=== PATIENT | female | born 1965 | race Caucasian/White ===

== ENCOUNTER 2016-08-08 11:16 | Inpatient (IN) | payer MEDICARE, MEDICAID ==
[~2016-08-08] VITALS: Ht 152.4 cm; Wt 150.5 kg
[~2016-08-08 11:16] MED LIST: ACETAZOLAMIDE250 MG PO; ALBUTEROL2.5 MG/3 M UPD; AMBIEN10 MG PO; BAYER CHEWABLE81 MG PO; BROVANA15 MCG/2 M INH; DIABETA2.5 MG PO; EMBEDA; FLUTICASONE PRO16 GM NASAL; FUROSEMIDE40 MG PO; GLIPIZIDE10 MG PO; GLUCOPHAGE500 MG PO; GLUCOTROL 5 MG T5 MG PO; GLYBURIDE2.5 MG PO; HYDROCODON-ACE1 EAC9 PO; HYDROCODONE-APA1 TAB PO; IPRAT-ALBUT 0.5-3 ML UPD; K-DUR20 MEQ PO; LANOXIN125 MCG PO; LANTUS INSULIN10 ML SC; LANTUS SOL100 UNIT/1 SC; LASIX20 MG PO; LASIX40 MG PO; LASIX80 MG PO; LEVAQUIN500 MG PO; LEXAPRO20 MG PO; LODINE400 MG PO; METOLAZONE2.5 MG; METOLAZONE2.5 MG PO; MUCINEX D1 TAB.SR . PO; OMEPRAZOLE20 M1; OMEPRAZOLE20 M1 PO; OMNICEF300 MG PO; PEPCID20 MG PO; POTASSIUM CHLORIDE E; PREDNISONE20 MG PO; PULMICORT0.5 MG/21 NEB; SINGULAIR10 MG PO; STERAPRED 5MG 125 MG PO; STERAPRED DS 1210 MG PO; SYNTHROID25 MCG; SYNTHROID25 MCG PO; TOPROL XL25 MG PO; VIBRAMYCIN 100100 MG PO; XANAX0.5 MG PO; ZANAFLEX4 MG PO; ZESTRIL10 MG PO; [UNRECOGNIZED DRUG - OTHER]
[2016-08-08 11:55] LABS: BASOPHILS 0.2 % (0.0-2.0); HEMATOCRIT 44.5 % (36.0-48.0); IMMATURE GRANULOCYTES 0.9 % (0-5); LYMPHOCYTES 16.9 % (15-50); MCH 27.4 pg (26.0-34.0); MCHC 29.2 g/dL (31.0-37.0); MCV 93.9 fL (80.0-100.0); MEAN PLATELET VOLUME 8.9 fL (7.4-10.4); MONOCYTES 12.6 % (2-11); NEUTROPHILS 63.4 % (40-80); RBC 4.74 10x6/uL (4.00-5.40); RDW 15.6 % (11.5-14.5); WBC 10.5 10x3/uL (4.8-10.8)
[2016-08-08 11:56] LABS: PLATELET COUNT 218 10x3/uL (130-400)
[2016-08-08 12:18] LABS: ALKALINE PHOSPHATASE 74 U/L (46-116); ALT (SGPT) 24 U/L (10-68); CALC OSMOLALITY 283 mosm/kg (275-300); CALCIUM 8.5 mg/dL (8.5-10.1); CHLORIDE - SERUM 98 mmol/L (98-107); CREATININE - SERUM 0.7 mg/dL (0.6-1.3); GLUCOSE 131 mg/dL (74-106); POTASSIUM - SERUM 4.3 mmol/L (3.5-5.1); PROTEIN - SERUM 6.9 g/dL (6.4-8.2); SODIUM 142 mmol/L (136-145); UREA NITROGEN 11 mg/dL (7-18); eGFR NON AFRICAN AMERICAN > 90 mL/min (90-120)
[2016-08-08 12:21] LABS: CARBON DIOXIDE 42.2 mmol/L (21.0-32.0)
--- NOTE | 2016-08-08 15:52 | NUR ---
PT ARRIVED TO ROOM. WILL BEGIN ADMISSION ASSESSMENT AND WORKUP.
[2016-08-08 18:08] VITALS: BP 142/72; BMI 67.3
[2016-08-08 19:00] VITALS: BP 107/53
[2016-08-08 19:26] LABS: CKMB 0.8 U/L (0.0-3.6); CREATINE KINASE 27 UL (21-215); PRO BNP 758 pg/mL (0-125)
--- NOTE | 2016-08-08 19:32 | NUR ---
PT LYING IN BED ON LEFT SIDE, EYES CLOSED, PT CURRENTLY ON BIPAP. CONTINUE TO MONITOR CLOSELY.
[2016-08-08 19:38] LABS: TROPONIN-I < 0.017 ng/mL (0.000-0.060)
--- NOTE | 2016-08-08 23:49 | NUR ---
HESS PLACED WITHOUT DIFFICULTY, 800CC OF CLEAR, PALE YELLOW URINE IMMEDIATELY RETURNED. PT TOLERATED PROCEDURE WELL. CONTINUE TO MONITOR CLOSELY.
[2016-08-09] VITALS: BP 112/54
--- NOTE | 2016-08-09 00:58 | NUR ---
PT AWAKE, ALERT, ORIENTED, OFF BIPAP TEMPORARILY TO EAT JULIUS CRACKERS AND DRINK SOME MILK. PT DENIES ANY NEEDS. HESS DRAINING WELL, UP TO 1400CC AT THIS TIME. CONTINUE TO MONITOR CLOSELY. BED LOW, CALL LIGHT IN REACH, SIDE RAILS X 2, HOB 30 DEGREES.
[2016-08-09 01:59] LABS: CKMB 0.8 U/L (0.0-3.6); CREATINE KINASE 21 UL (21-215)
[2016-08-09 02:08] LABS: TROPONIN-I < 0.017 ng/mL (0.000-0.060)
--- NOTE | 2016-08-09 02:24 | NUR ---
PT LYING IN BED, AWAKE, ALERT, ORIENTED, DENIES ANY NEEDS. CONTINUE TO MONITOR CLOSELY.
[2016-08-09 04:00] VITALS: BP 114/59
[2016-08-09 06:49] LABS: BASOPHILS 0.1 % (0.0-2.0); EOSINOPHILS 0 % (0-7); HEMATOCRIT 42.6 % (36.0-48.0); HEMOGLOBIN 12.5 g/dL (12-16); IMMATURE GRANULOCYTES 0.9 % (0-5); LYMPHOCYTES 8.2 % (15-50); MCH 27.2 pg (26.0-34.0); MCHC 29.3 g/dL (31.0-37.0); MCV 92.6 fL (80.0-100.0); MEAN PLATELET VOLUME 9.4 fL (7.4-10.4); MONOCYTES 4.8 % (2-11); PLATELET COUNT 249 10x3/uL (130-400); RDW 15.3 % (11.5-14.5); WBC 10.1 10x3/uL (4.8-10.8)
[2016-08-09 07:22] LABS: ALBUMIN 2.8 g/dL (3.4-5.0); ALKALINE PHOSPHATASE 68 U/L (46-116); ALT (SGPT) 27 U/L (10-68); CALCIUM 8.8 mg/dL (8.5-10.1); CHLORIDE - SERUM 96 mmol/L (98-107); CKMB 0.4 U/L (0.0-3.6); CREATINE KINASE 16 UL (21-215); CREATININE - SERUM 0.8 mg/dL (0.6-1.3); PHOSPHOROUS 3.7 mg/dL (2.5-4.9); POTASSIUM - SERUM 4.4 mmol/L (3.5-5.1); PROTEIN - SERUM 6.7 g/dL (6.4-8.2); SODIUM 140 mmol/L (136-145); TROPONIN-I < 0.017 ng/mL (0.000-0.060); eGFR NON AFRICAN AMERICAN 80 mL/min (90-120)
[2016-08-09 07:23] LABS: CALC OSMOLALITY 285 mosm/kg (275-300); GLUCOSE 211 mg/dL (74-106); UREA NITROGEN 15 mg/dL (7-18)
[2016-08-09 08:02] VITALS: BP 106/50
[2016-08-09 11:42] VITALS: BP 123/57
--- NOTE | 2016-08-09 13:19 | NUR ---
Patient Name: DOUGLAS HILLS Admission Status: ER Accout number: [id number] Admission Date: 08-08-2016 : 1965 Admission Diagnosis: Attending: BEKAH Current LOS: 1 Anticipated DC Date: 08-10-2016 Planned Disposition: Inpatient Rehab Primary Insurance: [employer] PLANNED EXTERNAL PROVIDER: [facility] INPATIENT REHAB Discharge Planning Comments: * Is the patient Alert and Oriented? Yes 0 * How many steps to enter\exit or inside your home? 3 0 * PCP DR. LESLIE 0 * Pharmacy [facility] [address] 0 * Preadmission Environment Home with Family 0 * ADLs Independent 0 * Equipment BIPAP Nebulizer Oxygen home and portable Rolling Walker 0 * Other Equipment [facility] - MEDICAL EQUIPMENT PROVIDER 0 * List name and contact numbers for known caregivers / representatives who currently or will assist patient after discharge: ALMA, DAUGHTER, 0 * Community resources currently utilized None 0 * Please name any agencies selected above. NONE 0 * Additional services required to return to the preadmission environment? Yes * Can the patient safely return to the preadmission environment? Yes 0 * Has this patient been hospitalized within the prior 30 days at any hospital? No 0 CM RECEIVED INPATIENT PRESCREEN ORDER; CM MET WITH PT IN ROOM TO DISCUSS DISCHARGE PLANNING AND NEEDS. PT REPORTS LIVING AT HOME INDEPENDENTLY WITH ADULT DAUGHTER. PT HAS BIPAP, NEBULIZER, OXYGEN AND ROLLING WALKER PROVIDED BY [facility]. PT HAS NO OUTSIDE SERVICES ASSISTING IN THE HOME. CM DISCUSSED AVAILABILITY OF HOME HEALTH, REHAB SERVICES AND MEDICAL EQUIPMENT. PT WOULD BE INTERESTED IN INPATIENT REHAB BUT DOES NOT THINK HER INSURANCE WILL APPROVE IT. CM EXPLAINED PROCESS OF REFERRAL, SCREENING AND INSURANCE AUTHORIZATION. PT REPORTS IF DENIED INPATIENT REHAB, SHE WILL NOT GO TO A [facility] FACILITY; PT WOULD GO HOME WITH HOME HEALTH PROVIDED BY [facility], CHOICE LETTER SIGNED. PT REPORTS HER DAUGHTER WILL PICK HER UP FOR DISCHARGE HOME. IMPORTANT MESSAGE FROM MEDICARE PROVIDED AND EXPLAINED. CM WAITING PT/OT EVALUATION COMPLETIONS WELL [facility] INPATIENT REHAB PRESCREENING AND INSURANCE AUTHORIZATION PROCESSES. Casting Finisher: Davin Osman
[2016-08-09 13:56] VITALS: Ht 152.4 cm; Wt 150.5 kg
--- NOTE | 2016-08-09 14:46 | NUR ---
Rehab Prescreening Consult recieved and the chart has been reviewed. She is [facility] [employer] and willk require a preauth. A PT and OT eval will be required for their review. Once completed all information will be submitted to [facility] for a Preauthorization for IRF. Lexi Nettles RN Clinical Liaison, Rehab
[2016-08-09 16:00] VITALS: BP 121/46
--- NOTE | 2016-08-09 17:24 | NUR ---
PERSONALLY WEIGHED PT FOR MOST ACCURATE WEIGHT. STANDUP SCALE 337.2, ZEROED OUT BED AND THEN DID BEDSCALE AND GOT 336.8. BEDSCALE IS NOW ACCURATE FOR DAILY WEIGHTS OR PT CAN USE STANDUP SCALE WHICH PERSONALLY I THINK WOULD BE BEST SHE IS FULLY CAPABLE OF STANDING AND NEEDS THE MOBILITY.
--- NOTE | 2016-08-09 19:19 | NUR ---
ASSESSMENT DONE. PT LAYING IN BED TALKING ON HER PHONE. DENIES NEEDS AT THIS TIME. JIMENA PATENT TO BSD. CALL LIGHT WITH IN REACH. WILL CONT. TO MONITOR.
[2016-08-09 20:00] VITALS: BP 111/46
--- NOTE | 2016-08-09 21:45 | NUR ---
PT AWAKE, ALERT, ORIENTED, REQUESTING SNACK FOR BEDTIME, OTHERWISE DENIES ANY NEEDS. EMPTIED HESS @ 1000CC, CLEAR, PALE YELLOW, URINE. CONTINUE TO MONITOR CLOSELY. BED LOW, CALL LIGHT IN REACH, SIDE RAILS X 2, HOB 20 DEGREES.
[2016-08-10] VITALS: BP 111/54
--- NOTE | 2016-08-10 00:26 | NUR ---
PT LYING IN BED, BIPAP ON, EASILY ROUSABLE TO VERBAL STIMULI, DENIES ANY NEEDS. CONTINUE TO MONITOR CLOSELY. PT IS DIURESING WELL AT THIS POINT. WE HAVE EMPTIED > 4000 THIS SHIFT ALONE FROM PTS HESS. BED LOW, CALL LIGHT IN REACH, SIDE RAILS X 2, HOB 20 DEGREES.
[2016-08-10 04:00] VITALS: BP 104/54
[2016-08-10 05:10] LABS: BASOPHILS 0.1 % (0.0-2.0); EOSINOPHILS 0.7 % (0-7); HEMATOCRIT 45.3 % (36.0-48.0); HEMOGLOBIN 13.3 g/dL (12-16); IMMATURE GRANULOCYTES 0.7 % (0-5); LYMPHOCYTES 16.9 % (15-50); MCH 27.3 pg (26.0-34.0); MCHC 29.4 g/dL (31.0-37.0); MEAN PLATELET VOLUME 9.1 fL (7.4-10.4); MONOCYTES 11.9 % (2-11); NEUTROPHILS 69.7 % (40-80); PLATELET COUNT 249 10x3/uL (130-400); RBC 4.87 10x6/uL (4.00-5.40); RDW 15.8 % (11.5-14.5)
[2016-08-10 05:16] LABS: WBC 12.7 10x3/uL (4.8-10.8)
[2016-08-10 05:51] LABS: ALBUMIN 3.1 g/dL (3.4-5.0); BILIRUBIN - TOTAL 0.54 mg/dL (0.2-1.3); CALCIUM 9.9 mg/dL (8.5-10.1); POTASSIUM - SERUM 4.2 mmol/L (3.5-5.1); PROTEIN - SERUM 7.3 g/dL (6.4-8.2)
[2016-08-10 06:05] LABS: ANION GAP 4.1 mmol/L (8-16); CREATININE - SERUM 1.1 mg/dL (0.6-1.3)
[2016-08-10 06:06] LABS: CARBON DIOXIDE 49.1 mmol/L (21.0-32.0)
[2016-08-10 08:02] VITALS: BP 109/55
--- NOTE | 2016-08-10 09:00 | NUR ---
MORNING MEDICATIONS GIVEN. PT IS ALERT AND ORIENTED SITTING UP IN BED. RR NONLABORED WITH NC @3L IN PLACE. PT HAS NO IV ACCESS AT THIS TIME AND IS AN EXTREMELY HARD STICK. CONSULTED VASCULAR NURSE FOR MIDLINE ACCESS. PT HAS HESS IN PLACE BUT DOES NOT MEET CRITERIA SO I REMOVED HESS WITH CATHETER BULB FULLY INTACT. PROVIDED SOHAIL CARE AND ENCOURAGED PT TO CALL FOR ANY NEEDED ASSISTANCE OOB OR TO BEDSIDE COMMODE IF NEEDED. PT VERBALIZED UNDERSTANDING AND DENIES ANY FURTHER NEEDS AT THIS TIME. CL IN REACH, BED IN LOWEST, SIDE RAILS X2. WILL CPOC.
--- NOTE | 2016-08-10 11:30 | NUR ---
MIDLINE CATHETER PLACED BY VASCULAR ACCESS NURSE. CONNECTED PT TO HER IV POLE, IVPB ANBX INFUSING VIA L.UPPER ARM SITE. BIOPATCH IN PLACE, DRSG CDI AND SWAB CAPS IN USE. PT DENIES ANY CURRENT NEEDS. WILL CPOC.
--- NOTE | 2016-08-10 11:45 | NUR ---
FSBS 148. NO COVERAGE REQUIRED. PT RESTING QUIETLY WAITING ON LUNCH. NO NEEDS AT THIS TIME. WILL CTM.
[2016-08-10 12:14] VITALS: BP 115/58
[2016-08-10 16:23] VITALS: BP 135/60
--- NOTE | 2016-08-10 19:45 | NUR ---
RESUMED CARE, O2-3L, IV-L.UPPER ARM MIDLINE-SL, [id number], BED IS LOW, SRX2, CALL LIGHT IN REACH,WILL CONTINUE TO MONITOR
[2016-08-10 20:00] VITALS: BP 114/62
[2016-08-11] VITALS: BP 118/69
[2016-08-11 04:00] VITALS: BP 117/68
--- NOTE | 2016-08-11 04:04 | NUR ---
MORTGAGE LOAN INTERVIEWER AT BEDSIDE TO OBTAIN VITALS, CALL LIGHT IN REACH. WILL CONTINUE TO MONITOR.
--- NOTE | 2016-08-11 04:17 | NUR ---
SLEEPING, BIPAP ON, BED IS LOW, SRX2, CALL LIGHT IN REACH
[2016-08-11 06:24] LABS: BASOPHILS 0.1 % (0.0-2.0); EOSINOPHILS 0 % (0-7); HEMATOCRIT 46.9 % (36.0-48.0); HEMOGLOBIN 14.2 g/dL (12-16); IMMATURE GRANULOCYTES 0.5 % (0-5); LYMPHOCYTES 7.4 % (15-50); MCH 27.3 pg (26.0-34.0); MCHC 30.3 g/dL (31.0-37.0); MEAN PLATELET VOLUME 9.3 fL (7.4-10.4); MONOCYTES 7.2 % (2-11); NEUTROPHILS 84.8 % (40-80); PLATELET COUNT 266 10x3/uL (130-400); RBC 5.21 10x6/uL (4.00-5.40); RDW 15.4 % (11.5-14.5)
[2016-08-11 06:27] LABS: WBC 16.8 10x3/uL (4.8-10.8)
[2016-08-11 06:55] LABS: ALBUMIN 3.3 g/dL (3.4-5.0); ANION GAP 8.2 mmol/L (8-16); BILIRUBIN - TOTAL 0.6 mg/dL (0.2-1.3); CALCIUM 9.5 mg/dL (8.5-10.1); CREATININE - SERUM 0.9 mg/dL (0.6-1.3); PROTEIN - SERUM 7.7 g/dL (6.4-8.2)
[2016-08-11 06:57] LABS: CARBON DIOXIDE 41.8 mmol/L (21.0-32.0)
[2016-08-11 07:51] VITALS: BP 131/80
--- NOTE | 2016-08-11 08:09 | NUR ---
AM ROUDNING- PT LAYING IN BED ON BACK WITH EYES OPEN. PT IS CURRENTLY ON BI-PAP MACHINE. ON EP. FSBS ACHS, 206 THIS AM THAT WAS COVERED BY UPHOLSTERER LIMOUSINE AND HEARSE NURSE, YANY. IV SEEN TO LEFT UPPER ARM THAT IS A MIDLINE CATHETER, SALINE LOCKED AND PATENT. EYE DROPS ARE AT BEDSIDE. ON MONITOR SHOWING ST, HR 109. PT IS UP AD FRANCINE PER REPORT. ON LOVENOX INJECTION FOR DVT PREVENTION. NO NEED AT CURRENT TIME. WILL CONTINUE TO MONITOR.
[2016-08-11 12:00] VITALS: BP 144/68
--- NOTE | 2016-08-11 13:24 | NUR ---
Recieved a call from Anna at [facility]. The medical device sales consultant has denied the request for inpatient rehab for this patient. A peer to peer can be done by the attending physician if he or she disagrees by calling Anna at [phone] ext [phone]. The pt's CM Beverly Armas has been made aware. Lexi Nettles RN Clinical Liaison, Rehab
--- NOTE | 2016-08-11 14:13 | NUR ---
PAGED DR. ANGELES TO INFORM HIM THAT DR. SALCEDO WANTED TO GET PT D/C TO HOME HEALTH BECAUSE PT DID NOT QUALIFY FOR INPATIENT REHAB. PT REFUSES TO GO TO OUT PATIENT REHAB FACILITY. DR. SALCEDO WANTED DR. ANGELES TO CLEAR PT FOR D/C. 1415- DR. ANGELES CALLED BACK AND STATED HE DID NOT THINK PT WAS READY TO BE D/C HOME JUST YET AND TO KEEP HER UNTIL SUNDAY. WILL CONTINUE TO MONITOR.
--- NOTE | 2016-08-11 14:19 | NUR ---
Nutrition Follow Up: Chart reviewed. Diet: Diabetic PO intake: 100% x 6 meals I<O No BM since admit Wt loss 8# since admit Labs noted - BUN, Glucose elevated Meds: Lasix, Glipizide, Humalog Pt with excellent po intake at this time. Rec continue current diet. RD following.
[2016-08-11 15:58] VITALS: BP 115/56
[2016-08-11 17:56] LABS: MAGNESIUM - SERUM 1.8 mg/dL (1.8-2.4); PHOSPHOROUS 5.4 mg/dL (2.5-4.9)
--- NOTE | 2016-08-11 18:00 | NUR ---
PT LAYING IN BED ON BACK RESTING. DENIES ANY NEED AT CURRENT TIME. WILL CONTINUE TO MONITOR.
--- NOTE | 2016-08-11 19:19 | NUR ---
RESUMED CARE,PT LYING ON R.SIDE, BIPAP ON, IV-L. UPPER ARM MIDLINE, [id number], DENIES ANY NEEDS, CALL LIGHT IN REACH, BED IS LOW, SRX2, WILL CONTINUE TO MONITOR
[2016-08-11 20:00] VITALS: BP 117/57
--- NOTE | 2016-08-11 21:15 | NUR ---
BLOOD SUGAR -208, GAVE 4UNITS HUMALOG
[2016-08-12] VITALS: BP 100/58
--- NOTE | 2016-08-12 01:50 | NUR ---
PT RESTING SOUNDLY WITHOUT C/O OR DISTRESS NOTED. CALL LIGHT WITHIN REACH. WILL CONT TO MONITOR.
[2016-08-12 04:00] VITALS: BP 106/53
--- NOTE | 2016-08-12 04:12 | NUR ---
SLEEPING WITH BIPAP ON, CALL LIGHT IN REACH,BED IS LOW
[2016-08-12 07:21] LABS: BASOPHILS 0.1 % (0.0-2.0); EOSINOPHILS 4.3 % (0-7); HEMATOCRIT 49.8 % (36.0-48.0); HEMOGLOBIN 15.3 g/dL (12-16); IMMATURE GRANULOCYTES 0.5 % (0-5); LYMPHOCYTES 22.4 % (15-50); MCH 27.5 pg (26.0-34.0); MCHC 30.7 g/dL (31.0-37.0); MCV 89.6 fL (80.0-100.0); MEAN PLATELET VOLUME 9.1 fL (7.4-10.4); MONOCYTES 11.6 % (2-11); NEUTROPHILS 61.1 % (40-80); PLATELET COUNT 207 10x3/uL (130-400); RBC 5.56 10x6/uL (4.00-5.40); RDW 15.7 % (11.5-14.5); WBC 11.4 10x3/uL (4.8-10.8)
--- NOTE | 2016-08-12 07:25 | NUR ---
AM ROUDNING- PT IS LAYING IN BED ON RIGHT SIDE GETTING AM LABS DRAWN. ON EP. FSBS ACHS, 179 THIS AM. WILL COVER WHEN BREAKFAST TRAY COMES. ON 3L OF VIA NC. IV SEEN TO LEFT UPPER ARM MIDLINE, SALINE LOCKED AND PATENT. ON LOVENOX INJECTIONS FOR DVT PREVENTION. ON MONITOR SHOWING SR, HR 85. NO NEED AT CURRENT TIME. WILL CONTIUE TO MONITOR.
[2016-08-12 07:35] LABS: ALBUMIN 3.3 g/dL (3.4-5.0); BILIRUBIN - TOTAL 0.67 mg/dL (0.2-1.3); CALCIUM 9.8 mg/dL (8.5-10.1); MAGNESIUM - SERUM 2.1 mg/dL (1.8-2.4); PHOSPHOROUS 4.8 mg/dL (2.5-4.9); POTASSIUM - SERUM 3.5 mmol/L (3.5-5.1); PROTEIN - SERUM 7.6 g/dL (6.4-8.2)
[2016-08-12 07:38] LABS: CARBON DIOXIDE 43.5 mmol/L (21.0-32.0)
[2016-08-12 08:02] VITALS: BP 119/65
[2016-08-12 11:18] VITALS: BP 101/56
[2016-08-12 15:50] VITALS: BP 112/53
--- NOTE | 2016-08-12 18:00 | NUR ---
PT LAYING IN BED ON RIGHT SIDE RESTING. DENIES ANY NEED AT CURRENT TIME. WILL CONTINUE TO MONITOR.
--- NOTE | 2016-08-12 19:15 | NUR ---
RESUME CARE OF PT, NO DISTRESS NOTICED, IV-L. UPPER [id number], [id number], BED IS LOW, SRX2, CALL LIGHT IN REACH,WILL CONTINUE TO MONITOR
[2016-08-12 20:28] VITALS: BP 107/67
--- NOTE | 2016-08-12 23:10 | NUR ---
PT LAYING IN BED NO DISTRESS OBSERVED CALL ARIN OLMEDO SRX2 BED LOW AND LOCKED WILL MONITOR
[2016-08-13 00:19] VITALS: BP 121/60
--- NOTE | 2016-08-13 04:59 | NUR ---
SLEEPING, BIPAP ON, BED IS LOW, CALL LIGHT IN REACH
[2016-08-13 05:17] VITALS: BP 115/67
--- NOTE | 2016-08-13 05:50 | NUR ---
BLOOD SUGAR-150, NO COVERAGE NEEDED
[2016-08-13 06:03] LABS: BASOPHILS 0.1 % (0.0-2.0); EOSINOPHILS 6.4 % (0-7); HEMATOCRIT 50.2 % (36.0-48.0); HEMOGLOBIN 15.5 g/dL (12-16); IMMATURE GRANULOCYTES 0.5 % (0-5); MCH 27.4 pg (26.0-34.0); MCHC 30.9 g/dL (31.0-37.0); MCV 88.7 fL (80.0-100.0); MEAN PLATELET VOLUME 9.5 fL (7.4-10.4); MONOCYTES 9.8 % (2-11); NEUTROPHILS 64.2 % (40-80); PLATELET COUNT 194 10x3/uL (130-400); RBC 5.66 10x6/uL (4.00-5.40); RDW 15.6 % (11.5-14.5)
[2016-08-13 06:08] LABS: WBC 14.5 10x3/uL (4.8-10.8)
[2016-08-13 06:53] LABS: ALBUMIN 3.3 g/dL (3.4-5.0); ANION GAP 9.5 mmol/L (8-16); BILIRUBIN - TOTAL 0.7 mg/dL (0.2-1.3); CALCIUM 9.6 mg/dL (8.5-10.1); CARBON DIOXIDE 38.9 mmol/L (21.0-32.0); CREATININE - SERUM 0.9 mg/dL (0.6-1.3); POTASSIUM - SERUM 3.4 mmol/L (3.5-5.1); PROTEIN - SERUM 7.6 g/dL (6.4-8.2)
--- NOTE | 2016-08-13 07:10 | NUR ---
RECEIVED REPORT. ASSUMED CARE OF PATIENT. CALL LIGHT WITHIN REACH. PATIENT RESTING WITH EYES CLOSED. EASILY AROUSED. BIPAP AT 40% PATENT. RESP EVEN AND UNLABORED. PATIENT DENIES NEEDS, DENIES PAIN AT THIS TIME. NO DISTRESS.
[2016-08-13 07:41] VITALS: BP 109/51
[2016-08-13 11:23] VITALS: BP 114/73
[2016-08-13] MEDS ORDERED: LEVAQUIN750 MG PO (11:43)
[2016-08-13] MEDS ORDERED: PROTONIX40 MG PO (11:45)
[2016-08-13] MEDS ORDERED: TOBREX5 ML EACH EYE (11:46)
[2016-08-13] MEDS ORDERED: DIAMOX250 MG PO (11:46)
[2016-08-13] MEDS ORDERED: LASIX40 MG PO (11:47)
[2016-08-13] MEDS ORDERED: MUCINEX DM ER1 EAC1 PO (11:47)
[2016-08-13] MEDS ORDERED: BENZONATATE200 MG PO (11:47)
[2016-08-13] MEDS ORDERED: PULMICORT0.5 MG/21 UPD (11:49)
--- NOTE | 2016-08-13 11:57 | NUR ---
FSBS 190. 2 UNITS HUMALOG ADMINISTERED PER SLIDING SCALE AT THIS TIME. NO DISTRESS.
[2016-08-13 15:24] VITALS: BP 96/53
--- NOTE | 2016-08-13 16:33 | NUR ---
FSBS 164. 2 UNITS HUMALOG ADMINISTERED PER SLIDING SCALE AT THIS TIME.
--- NOTE | 2016-08-13 17:43 | NUR ---
1730 DISCHARGE INSTRUCTIONS GIVEN TO PATIENT, PRESCRIPTIONS GIVEN TO PATIENT. PATIENT VERBALIZED UNDERSTANDING OF ALL PRESCRIPTIONS GIVEN, FOLLOW UP APPTS WITH DR. LESLIE AND . PATIENT INSTRUCTED TO CALL HOSPITAL IF SHE HAS ANY QUESTIONS. ENCOURAGED PATIENT TO PLEASE FOLLOW UP WITH PHYSICIANS AND ADHERE TO DISCHARGE INSTRUCTIONS. PATIENT VERBALIZED ALL INSTRUCTIONS. 1740 MIDLINE PIV TO LEFT UPPER ARM REMOVED. 19CM CATHETER REMOVED. CATHETER TIP INTACT. NO BLEEDING TO SITE AFTER HOLDING PRESSURE FOR 5 MINUTES. 2X2 GAUZE APPLIED AND SECURED WITH TAPE. NO BLEEDING FROM SITE.
--- NOTE | 2016-08-13 17:56 | NUR ---
PATIENT LEFT UNIT VIA WHEELCHAIR WITH ALL PERSONAL BELONGINGS AT THIS TIME. NO DISTRESS UPON LEAVING UNIT. PATIENT DISCHARGED TO HOME WITH FAMILY.
--- NOTE | 2016-08-21 14:16 | CN ---
PATIENT NAME:DOUGLAS HILLS MEDICAL RECORD: [id number] : 63 LOCATION:D. D.2135 ADMIT DATE: 08/08/16 ACCOUNT: [id number] CONSULTING PHYSICIAN: DOTTIE RACHEL MD REFERRING PHYSICIAN: EVONNE LESLIE DO DATE OF CONSULTATION: 08/09/2016 Cardiology Consultation DIAGNOSES: 1. Peripheral vascular disease. 2. Claudication. 3. Chronic obstructive pulmonary disease. 4. Respiratory distress. HISTORY OF PRESENT ILLNESS: Mrs. Hills presented to the hospital yesterday with respiratory distress requiring BiPAP, and was then exacerbation of her chronic obstructive pulmonary disease. She was scheduled for aortofemoral runoff today. She does have a history of peripheral vascular disease, abnormal ABIs by a physician in [place]. She was told she had blockages of her legs. She has not been told that . Her peripheral vascular disease is chronic and stable as is her claudication. PHYSICAL EXAMINATION: GENERAL APPEARANCE: Well-nourished, well-developed, appears stated age. Level of distress, comfortable. PSYCHIATRIC: Mental status, alert, normal affect. Orientation, oriented to time, place and person. EYES: Lids and conjunctiva, noninjected. No discharge, no pallor. ENT: Lips, teeth, gums, normal dentition. Oropharynx, no cyanosis, no pallor. NECK: Carotid arteries, bilateral normal upstroke, no bruits, no thrills. JUGULAR VEINS: No jugular venous pressure or distention. CERVICAL LYMPH NODES: Nontender, nonenlarged. THYROID: Not enlarged. Nontender. No nodules. LUNGS: Respiratory effort, unlabored. CHEST: Normal curvature. No thoracic deformity. No chest wall tenderness. Percussion, resonant. Auscultation, clear. No wheezes, no rales, no rhonchi. CARDIOVASCULAR: Precordial exam, nondisplaced. No heaves or pericardial thrills. Rate and rhythm, regular. Heart sounds, normal S1, normal S2. No S3, no gallop, no rub. Systolic murmur, not heard. Diastolic murmur, not heard. EXTREMITIES: No cyanosis, no edema. Peripheral pulses, full and equal in all extremities, except as noted. No bruits appreciated. ABDOMEN: Soft, nondistended. Normal aorta. No bruit. Nontender. No masses. Liver, nontender, no hepatomegaly. Spleen, nontender, no splenomegaly. MUSCULOSKELETAL: No joint tenderness. No joint swelling. No erythema. NEUROLOGICAL: Normal gait, normal strength, normal tone. SKIN: Warm and dry. REVIEW OF SYSTEMS: The patient reports easy bruising but reports no swollen glands. The patient reports no fever, no night sweats, no significant weight gain, no significant weight loss. No significant exercise tolerance. The patient reports no dry eyes, no irritation, no vision change. Patient reports no difficulty hearing and no ear pain. Patient reports no frequent nose bleeds or nose and sinus problems. Patient reports on arm pain on exertion. No shortness of breath while lying down. No history of heart murmur. Patient CONSULT REPORT [id number] DOUGLAS HILLS reports no cough, no wheezing or coughing up blood. Patient reports no abdominal pain, no vomiting. Normal appetite. No diarrhea and not vomiting blood. No nausea and no constipation. Patient reports no incontinence. No difficulty urinating. No hematuria. No increased frequency. Patient reports no muscle aches. No weakness, no arthralgias, no back pain. No swelling of the extremities. Patient reports no abnormal mole, no jaundice, no rashes. Reports no loss of consciousness. No weakness and no numbness. No seizures, dizziness, or headaches. The patient reports no depression, no sleep disturbance, feeling safe in a relationship and no alcohol abuse. Patient reports on fatigue. Reports no runny nose or sinus pressure. No itching, no hives, and no frequent sneezing. OVERALL IMPRESSION: With her impending respiratory failure. We will obviously not proceed with the aortofemoral runoff at this time. We do this at any time in the near future on an elective basis. No other cardiac workup needs to be undertaken. She recently had a normal cardiac catheterization with no coronary disease and ejection fraction 50%. Her shortness of breath is all secondary to pulmonary status. TRANSINT:[id number] Voice Confirmation ID: [id number] DOCUMENT ID: [id number] DOTTIE RACHEL MD at 1416 CC: [id number] DICTATION DATE: 08/09/16 1042 PRODUCTION GEAR CUTTER: 08/09/16 1058 DIS IN 08/13/16 [address] [place] [address]
--- NOTE | 2016-08-22 07:21 | DS ---
PATIENT:DOUGLAS HILLS :63 MEDICAL RECORD: [id number] DISCHARGE SUMMARY ADMISSION DATE: 08/08/16 DISCHARGE DATE: 08/13/16 DATE OF ADMISSION: 08/08/2016 DATE OF DISCHARGE: 08/13/2016 CONDITION ON DISCHARGE: Improved. ADMITTING DIAGNOSIS: Respiratory distress. DISCHARGE DIAGNOSES: Respiratory distress, chronic obstructive pulmonary disease exacerbation, noncompliance, diabetes mellitus and hypertension. HOSPITAL COURSE: The patient is a 51-year-old female who presented to the Emergency Room complaining of shortness of breath, cough and congestion, exacerbation of COPD as well as asthma, a severely noncompliant individual. PHYSICAL EXAMINATION: VITAL SIGNS: In the Emergency Room, the patient's temperature was 97.3, her pulse 84, respirations 18, blood pressure 142/72, O2 sat was 95% on nasal cannula at 3 liters. GENERAL: The patient is a morbidly obese white female who is tachypneic. HEENT: Unremarkable. NECK: Supple. There is no adenopathy. HEART: Slightly tachycardic. LUNGS: She had decreased breath sounds in all daniels. She had wheezes and crackles on expiration. The patient's white count was 12.7, hemoglobin 13.3, hematocrit was 45.3, her platelets were 249. The patient was admitted, started on updraft therapy as well as antibiotics. Slowly over the next coming days, the patient's condition began to improve. On the , the patient was feeling better. She was resting comfortably. Her pulse was 95, respirations 18, her blood pressure was 119/65. She had 99% O2 sat on BiPAP. On the morning of the , the patient states she would like to be discharged. She was no longer having trouble breathing. Her white count was 14.5, her hemoglobin was 15.5, hematocrit was 50.2, and her platelets were 194. She had sodium 135, potassium 3.4, chloride 90, BUN was 36, creatinine 0.9. Her blood sugar was 134. The patient was afebrile. Her vital signs were stable. Her O2 sat was 98% on 3 liters. It was felt the patient could be discharged. DISCHARGE INSTRUCTIONS: She was discharged home. She would be on Pulmicort 0.5 mg per 2 mL Respule b.i.d., Levaquin 750 mg once a day for the next 4 days, Lasix 40 mg once a day, Tessalon Perles 1-2 every 8 hours p.r.n. cough, TobraDex 1 drop in each eye q.i.d., Protonix 40 mg once a day, digoxin 0.125 once a day, Singulair 10 mg once a day, ____ 40 mg once a day, KCl 20 mEq once a day, Glucotrol 5 mg XL once a day, Zanaflex 4 mg p.o. b.i.d. p.r.n., hydrocodone/acetaminophen 10/325 one every 4 hours p.r.n. severe pain, fluticasone nasal spray 1 spray in each naris daily, metolazone 2.5 b.i.d., 0.5 Xanax q.12 hours p.r.n. anxiety, Brovana 15 mcg per 2 mL 2 puffs b.i.d., DuoNeb 3 mL q.4 hours p.r.n. shortness of breath. DIET: A 2200-calorie ADA diet. DISCHARGE SUMMARY REPORT [id number] DOUGLAS HILLS FOLLOWUP: The patient was advised to follow up with Dr. Marsh as well as Dr. Leslie within the coming weeks. She would continue her BiPAP as well as her O2 at 2 liters per minute. TRANSINT:[id number] Voice Confirmation ID: [id number] DOCUMENT ID: [id number] KOREY ACEVEDO MD at 0721 CC: SONIA MARSH MD and EVONNE LESLIE DO [id number] DICTATION DATE: 08/13/16 1203 POLYMER ENGINEER: 08/14/16 0112 DIS IN 08/13/16 [facility] [address] [place] [address]
== END 2016-08-13 17:57 | disposition home or self-care (01) | DRG 189 ==
LOC: D.ER 11:16 → OBSVTIME 13:37 → D.M2 13:37
PROVIDERS: Emergency Medicine; ADMIT Family Medicine
PROC: 02HV33Z Insertion of Infusion Device into Superior Vena Cava, Percutaneous Approach (ICD-10-PCS; principal; 2016-08-08)
PROC: 5A09457 Assistance with Respiratory Ventilation, 24-96 Consecutive Hours, Continuous Positive Airway Pressure (ICD-10-PCS; 2016-08-08)
DX: J96.21 Acute and chronic respiratory failure with hypoxia (principal); I50.23 Acute on chronic systolic (congestive) heart failure; J18.9 Pneumonia, unspecified organism; J44.0 Chronic obstructive pulmonary disease with (acute) lower respiratory infection; Z68.44 Body mass index [BMI] 60.0-69.9, adult; J44.1 Chronic obstructive pulmonary disease with (acute) exacerbation; I70.213 Atherosclerosis of native arteries of extremities with intermittent claudication, bilateral legs; E66.01 Morbid (severe) obesity due to excess calories; J96.22 Acute and chronic respiratory failure with hypercapnia; H10.9 Unspecified conjunctivitis; J01.90 Acute sinusitis, unspecified; E11.9 Type 2 diabetes mellitus without complications; I10 Essential (primary) hypertension; G47.33 Obstructive sleep apnea (adult) (pediatric); I07.1 Rheumatic tricuspid insufficiency; K21.9 Gastro-esophageal reflux disease without esophagitis; E78.5 Hyperlipidemia, unspecified; Z91.19 Patient's noncompliance with other medical treatment and regimen; Z99.81 Dependence on supplemental oxygen; Z95.0 Presence of cardiac pacemaker; Z87.891 Personal history of nicotine dependence

== ENCOUNTER → 2016-09-18 14:43 | Outpatient (CLI) | payer MEDICARE, MEDICAID ==
[2016-08-09 13:56] VITALS: BMI 67.7
[~2016-09-18 14:43] MED LIST changes: +BENZONATATE200 MG PO; +DIAMOX250 MG PO; +ELIQUIS2.5 MG PO; +LEVAQUIN750 MG PO; +MUCINEX DM ER1 EAC1 PO; +OXYCODONE HCL5 MG PO; +PROTONIX40 MG PO; +PULMICORT0.5 MG/21 UPD; +ROBAXIN500 MG PO; +TOBREX5 ML EACH EYE
== END | disposition home or self-care (01) ==
LOC: D.LABREF 14:43
DX: M17.12 Unilateral primary osteoarthritis, left knee (principal); Z11.8 Encounter for screening for other infectious and parasitic diseases

== ENCOUNTER 2016-09-28 09:00 | Inpatient (IN) | payer MEDICARE, MEDICAID ==
[~2016-09-28] VITALS: Ht 152.4 cm; Wt 147.3 kg
[~2016-09-28 09:00] MED LIST changes: -ELIQUIS2.5 MG PO; -OXYCODONE HCL5 MG PO; -ROBAXIN500 MG PO
[2016-09-29] MEDS ORDERED: LANTUS INSULIN10 ML SC (11:51)
[2016-09-29] MEDS ORDERED: ROBAXIN500 MG PO (11:51)
[2016-09-29 12:47] LABS: BASOPHILS 0.1 % (0.0-2.0); EOSINOPHILS 2.4 % (0-7); HEMATOCRIT 46.9 % (36.0-48.0); HEMOGLOBIN 14.4 g/dL (12-16); IMMATURE GRANULOCYTES 0.2 % (0-5); LYMPHOCYTES 18.2 % (15-50); MCH 28.1 pg (26.0-34.0); MCHC 30.7 g/dL (31.0-37.0); MCV 91.4 fL (80.0-100.0); MEAN PLATELET VOLUME 9.3 fL (7.4-10.4); MONOCYTES 9.6 % (2-11); NEUTROPHILS 69.5 % (40-80); PLATELET COUNT 218 10x3/uL (130-400); RBC 5.13 10x6/uL (4.00-5.40); RDW 15.8 % (11.5-14.5); WBC 12.1 10x3/uL (4.8-10.8)
[2016-09-29 12:51] LABS: CALC OSMOLALITY 287 mosm/kg (275-300); CALCIUM 9.2 mg/dL (8.5-10.1); CARBON DIOXIDE 38.5 mmol/L (21.0-32.0); CHLORIDE - SERUM 96 mmol/L (98-107); CREATININE - SERUM 0.8 mg/dL (0.6-1.3); GLUCOSE 133 mg/dL (74-106); SODIUM 142 mmol/L (136-145); UREA NITROGEN 22 mg/dL (7-18); eGFR NON AFRICAN AMERICAN 80 mL/min (90-120)
[2016-09-29 13:02] LABS: INR 0.98 (0.85-1.17); PROTIME 12.8 SECONDS (11.6-15.0)
[2016-09-29 13:03] LABS: APTT 27.5 SECONDS (22.8-39.4)
[2016-09-29 13:32] LABS: APPEARANCE SLT CLOUDY (CLEAR); BILIRUBIN NEGATIVE (NEGATIVE); COLOR DK YELLOW (YELLOW); GLUCOSE NEGATIVE (NEGATIVE); KETONE NEGATIVE (NEGATIVE); LEUKOCYTE ESTERASE TRACE (NEGATIVE); NITRITE NEGATIVE (NEGATIVE); PROTEIN NEGATIVE (NEGATIVE)
[2016-09-29 13:33] LABS: BACTERIA MODERATE /hpf (NONE SEEN); MUCUS <1+ /lpf (NONE SEEN); RED CELLS - URINE NONE SEEN /hpf (0-5); WHITE CELLS - URINE 0-5 /hpf (0-5)
[2016-10-03] VITALS (7 sets, daily range): BP systolic 100–147; BP diastolic 54–88; BMI 62.6
--- NOTE | 2016-10-03 12:21 | NUR ---
PT'S LEFT LEG AND FOOT WASHED WITH HIBICLENS AND ALCOHOL PRIOR TO CHLORPREP PER D.N.
--- NOTE | 2016-10-03 15:54 | NUR ---
PT RE-INTUBATED IN OR6. TRANSPORTED TO PACU TO BE PLACED ON THE VENTILATOR
--- NOTE | 2016-10-03 16:37 | NUR ---
BIPAP SETTINGS 18/8 O2 45% AND BACK UP RATE 14
--- NOTE | 2016-10-03 16:50 | NUR ---
FSBS IN OR 5MIN PRIOR TO ADMIT WAS [address] OATES
--- NOTE | 2016-10-03 16:51 | NUR ---
RESPIRATORY GAVE DUONEB UPDRAFT THROUGH BIPAP AT 1630
--- NOTE | 2016-10-03 18:23 | NUR ---
1800 PT RECIEVED FROM RECOVERY ROOM VIA BED.. THGERE IS A BIPAP O2 IN PLACE AT 45% RESPIRATIONS ARE EVEN AT 17.. SAT 96%.. PT IS AWAKE AND APPROPRIATE IN HER RESPONSEDS.. THERE IS A WOUND VAC TO HER LEFT KNEE AND SCD TO THE RIGHT LOWER LEG.. CVL IN THE RIGHT IJ.. FLUID CHANGED TO 1/2 NS AT 100CC/HR WITH A HAT PRESSER DIALUDID...
--- NOTE | 2016-10-03 19:28 | NUR ---
REPORT RECIEVED. ASSESSMENT COMPLETE PER FLOW SHEET. PT ALERT TO VERBAL CUES FOLLOWS COMMANDS DISORIENTED X2. ORAL CARE ADM. ICE APPLIED TO L KNEE. NO NEW FINDINGS. VSS. WILL CONTINUE TO MONITOR.
--- NOTE | 2016-10-03 21:16 | NUR ---
NO FALMILY AT THIS TIME. VSS. 2100 MEDS ADM WITHOUT DIFFICULTY. REPOSITIONED ON R SIDE. NEEDS MET.
--- NOTE | 2016-10-03 23:38 | NUR ---
REASSESSMENT COMPLETE PER FLOW SHEET. VSS. NO NEW CHANGES. WLIL CONTINUE TO MONITOR.
[2016-10-04] VITALS (24 sets, daily range): BP systolic 80–157; BP diastolic 43–98; Ht 152.4 cm; Wt 147.3 kg
--- NOTE | 2016-10-04 01:40 | NUR ---
COMPLETE BB LINEN CHANGE ADM. VSS. NO NEW FINDINGS. PT SLEEPING COMFORTABLY.
--- NOTE | 2016-10-04 03:04 | NUR ---
REASSESSMENT COMPLETE PER FLOW SHEET. VSS. NO NEW CHANGES. SLEPEING COMFORTABLY. WILL CONTINUE TO MONITOR.
[2016-10-04 03:59] LABS: HEMATOCRIT 43.8 % (36.0-48.0); HEMOGLOBIN 12.6 g/dL (12-16); MCH 28.1 pg (26.0-34.0); MCHC 28.8 g/dL (31.0-37.0); MCV 97.6 fL (80.0-100.0); MEAN PLATELET VOLUME 9.2 fL (7.4-10.4); RBC 4.49 10x6/uL (4.00-5.40); RDW 16.1 % (11.5-14.5); WBC 11.6 10x3/uL (4.8-10.8)
--- NOTE | 2016-10-04 05:48 | NUR ---
GIVEN WATER PER REQUEST. DENIES FURTHER NEEDS. VSS. WILL CONTINUE TO MONITOR.
--- NOTE | 2016-10-04 12:14 | NUR ---
0700 PT AWAKE AND ALERT. ABLE TO OBEY COMMANDS AND ANSWER QUESTIONS. DISORIENTED TO SITUATION AND TIME AT TIMES BUT ABLE TO REORIENT. WOUND VAC NOTED ON LEFT KNEE FROM SURGICAL SITE, DRESSING CDI. NORMAL SINUS ON MONITOR, S1S2 NOTED. PT ON BIPAP AT 45% WITH STABLE O2 SAT. PT ABLE TO REPOSITION SELF WITH MINIMAL ASSISTANCE. VITAL SIGNS STABLE
--- NOTE | 2016-10-04 12:17 | NUR ---
0900 PT OFF OF BIPAP DURING BREAKFAST AND ON 2L NC. O2 SAT STABLE. NO FURTHER CHANGES.
--- NOTE | 2016-10-04 12:18 | NUR ---
1100 PT ASLEEP AT THIS TIME. VITAL SIGNS STABLE.
--- NOTE | 2016-10-04 13:47 | NUR ---
1300 PT VERY LETHARGIC AT THIS TIME. WOKE PT AND ASKED ORIENTATION QUESTIONS. PT ABLE TO ANSWER APPROPRIATELY. MONITORING PAIN MEDICATION CLOSELY AND LOC.
--- NOTE | 2016-10-04 15:05 | NUR ---
1500 PT ASLEEP AT THIS TIME. NO SIGNS OF DISTRESS CURRENTLY. VITAL SIGNS STABLE. NO FURTHER CHANGES.
[2016-10-04 16:50] LABS: BASOPHILS 0.3 % (0.0-2.0); HEMATOCRIT 40.7 % (36.0-48.0); HEMOGLOBIN 12.2 g/dL (12-16); IMMATURE GRANULOCYTES 1.9 % (0-5); LYMPHOCYTES 10.5 % (15-50); MCH 28.1 pg (26.0-34.0); MEAN PLATELET VOLUME 10.1 fL (7.4-10.4); NEUTROPHILS 73.3 % (40-80); PLATELET COUNT 164 10x3/uL (130-400); RBC 4.34 10x6/uL (4.00-5.40); RDW 15.7 % (11.5-14.5); WBC 9.2 10x3/uL (4.8-10.8)
[2016-10-04 16:54] LABS: MCV 93.8 fL (80.0-100.0)
[2016-10-04 17:02] LABS: ANION GAP 9.6 mmol/L (8-16); BILIRUBIN - TOTAL 0.34 mg/dL (0.2-1.3); CALCIUM 7.6 mg/dL (8.5-10.1); CARBON DIOXIDE 35.7 mmol/L (21.0-32.0); CREATININE - SERUM 0.9 mg/dL (0.6-1.3); POTASSIUM - SERUM 5.3 mmol/L (3.5-5.1); PROTEIN - SERUM 6.2 g/dL (6.4-8.2)
--- NOTE | 2016-10-04 17:57 | NUR ---
1700 PT OFF OF BIPAP FOR DINNER AND ON 2L NC. O2 SAT STABLE. PT ABLE TO FEED SELF BUT APPEARS LETHARGIC. WILL CONTINUE TO MONITOR
--- NOTE | 2016-10-04 19:27 | NUR ---
REPORT RECIEVED. ASSESSMENT COMPLETE PER FLOW SHEET. VSS. NO NEW CHANGES. WILL CONTINUE TO MONITOR.
--- NOTE | 2016-10-04 21:17 | NUR ---
PT GAS PIT WORKER LIGHT. GIVEN ICE WATER PER REQUEST. DENIES FURTHER NEEDS. PLACED BACK ON BIPAP. SLEEPING COMFORTALBY.
--- NOTE | 2016-10-04 23:31 | NUR ---
REASSESSMENT COMPLETE PER FLOW SHEET. VSS. NO NEW CHANGES. WILL CONTINUE TO MONITOR.
[2016-10-05] VITALS (24 sets, daily range): BP systolic 92–132; BP diastolic 50–97
--- NOTE | 2016-10-05 03:24 | NUR ---
REASSESSMNET COMPLETE PER FLOW SHEET. VSS. NO NEW CHANGES. WILL CONTINUE TO MONITOR. PT SLEEPING COMFORTABLY.
[2016-10-05 04:11] LABS: BASOPHILS 0 % (0.0-2.0); EOSINOPHILS 0.3 % (0-7); HEMATOCRIT 42.4 % (36.0-48.0); HEMOGLOBIN 12.8 g/dL (12-16); IMMATURE GRANULOCYTES 0.6 % (0-5); LYMPHOCYTES 4.6 % (15-50); MCH 28.3 pg (26.0-34.0); MCHC 30.2 g/dL (31.0-37.0); MCV 93.6 fL (80.0-100.0); MEAN PLATELET VOLUME 9.3 fL (7.4-10.4); MONOCYTES 2.4 % (2-11); NEUTROPHILS 92.1 % (40-80); PLATELET COUNT 170 10x3/uL (130-400); RBC 4.53 10x6/uL (4.00-5.40); RDW 15.4 % (11.5-14.5); WBC 11.5 10x3/uL (4.8-10.8)
[2016-10-05 04:36] LABS: ALBUMIN 2.9 g/dL (3.4-5.0); BILIRUBIN - TOTAL 0.53 mg/dL (0.2-1.3); CALCIUM 8.9 mg/dL (8.5-10.1); CREATININE - SERUM 0.9 mg/dL (0.6-1.3); MAGNESIUM - SERUM 1.6 mg/dL (1.8-2.4); PROTEIN - SERUM 7.4 g/dL (6.4-8.2)
[2016-10-05 04:37] LABS: ANION GAP 5.3 mmol/L (8-16); CARBON DIOXIDE 42.7 mmol/L (21.0-32.0)
--- NOTE | 2016-10-05 05:20 | NUR ---
REPOSITIONED FOR COMFORT, WILL CON'T TO MONITOR
--- NOTE | 2016-10-05 07:43 | NUR ---
PATIENT REMAINS ON BIPAP 45%. SHE IS NOT ABLE TO TOLERATE REMOVAL TO INTERVIEW. I HAVE NOT SEEN ANY FAMILY HER TO INTERVIEW. CM TO FOLLOW.
--- NOTE | 2016-10-05 09:31 | NUR ---
0700 PT AWAKE ALERT AND ORIENTED. COMPLAINS OF PAIN IN HER KNEE AT THIS TIME. PT ON BIPAP AND O2 SAT STABLE. NORMAL SINUS ON MONITOR. PT ABLE TO MOVE SELF IN BED WITH MINIMAL ASSISTANCE. VITAL SIGNS STABLE AT THIS TIME. WILL DISCUSS CPM WITH PT LATER TODAY.
--- NOTE | 2016-10-05 11:35 | NUR ---
0900 PT SITTING UP IN BED ON 2L NC WHILE EATING BREAKFAST. ABLE TO TAKE PO MEDS WITH NO COMPLAINTS. BIPAP BACK ON AFTER BREAKFAST. PT COMPLAINS OF PAIN.
--- NOTE | 2016-10-05 11:36 | NUR ---
1100 PT RESTING AND NO SIGNS OF PAIN NOTED AT THIS TIME. ROM PERFORMED ON LEFT KNEE. PHYSICAL THERAPY STATED THAT DUE TO PT SIZE THEY WERE UNABLE TO USE CPM. WILL CONTINUE ROM
--- NOTE | 2016-10-05 13:13 | NUR ---
1300 BIPAP BACK ON PT. COMPLAINING OF PAIN. WILL PERFORM ROM WITH PT. VITAL SIGNS STABLE.
--- NOTE | 2016-10-05 15:13 | NUR ---
1500 ROM PERFORMED BY KRISH IN PHYSICAL THERAPY. PT ENCOURAGED TO MOVE TOES AND EXERCISE FEET FREQUENTLY. PT STATES IT IS PAINFUL BUT SHE WILL ATTEMPT TO EXERCISE.
--- NOTE | 2016-10-05 17:47 | NUR ---
1700 PT BACK ON BIPAP AND HAS NO CHANGES FROM PREVIOUS ASSESSMENT. VITAL SIGNS STABLE
--- NOTE | 2016-10-05 23:10 | NUR ---
1909- REPORT RECVD. CARE ASSUMED. INITIAL ASSMNT COMPLETED. SEE FLOWSHEET FOR ALL FINDINGS. AWAKE AND AOX4 ON BIPAP AT 30% FIO2. LUNGS WITH SCANT EXP WHEEZES IN UPPER LOBES, DIM IN BASES. ST ON THE MONITOR. AFEBRILE. PULSES PALP. GEBERALIZED EDEMA PRESENT. SCDS IN USE. LEFT KNEE WITH WOUND VAC INTACT TO INCISION. SCANT EXUDATE SEEN. ABD SOFT, BSA X4. F/C PATENT WITH DIURESIS SEEN. REPOSITIONS WITH MINIMAL ASSIST. SENIOR STATISTICAL PROGRAMMER DILAUDID PROVIDING EFFECTIVE PAIN CONTROL. HOB UP. C/L IN REACH. CONT CURRENT POC. 2100- HS MEDS GIVEN. SQ S/S INSULIN ADMIN. HS SNACK GIVEN. VSS. SPO2 96% HOB UP. C/L IN REACH, CONT CURRENT POC. 2310- REASSESSMENT COMPLETED. SEE FLOWSHEET FOR ALL FINDINGS. AWAKE AND AOX4 ON BIPAP AT 30% FIO2. LUNGS WITH SCANT EXP WHEEZES IN UPPER LOBES, DIM IN BASES. ST ON THE MONITOR. AFEBRILE. PULSES PALP. GEBERALIZED EDEMA PRESENT. SCDS IN USE. LEFT KNEE WITH WOUND VAC INTACT TO INCISION. SCANT EXUDATE SEEN. ABD SOFT, BSA X4. F/C PATENT WITH DIURESIS SEEN. REPOSITIONS WITH MINIMAL ASSIST. SENIOR STATISTICAL PROGRAMMER DILAUDID PROVIDING EFFECTIVE PAIN CONTROL. HOB UP. C/L IN REACH. CONT CURRENT POC.
[2016-10-06] VITALS (24 sets, daily range): BP systolic 88–124; BP diastolic 40–85
--- NOTE | 2016-10-06 01:10 | NUR ---
AWAKE. RESTING ON BIPAP. WATCHING TV. MINIMAL ASSIST TO REPOSITION IN BED. HOB UP. VSS/ C/L IN REACH. CONT CURRENT POC.
--- NOTE | 2016-10-06 03:10 | NUR ---
REASSESSMENT COMPLETED. SEE FLOWSHEET FOR ALL FINDINGS. AWAKE AND AOX4 ON BIPAP AT 30% FIO2. LUNGS WITH SCANT EXP WHEEZES IN UPPER LOBES, DIM IN BASES. ST ON THE MONITOR. AFEBRILE. PULSES PALP. GEBERALIZED EDEMA PRESENT. SCDS IN USE. LEFT KNEE WITH WOUND VAC INTACT TO INCISION. SCANT EXUDATE SEEN. ABD SOFT, BSA X4. F/C PATENT WITH DIURESIS SEEN. REPOSITIONS WITH MINIMAL ASSIST. LUMP ROLLER DILAUDID PROVIDING EFFECTIVE PAIN CONTROL. HOB UP. C/L IN REACH. CONT CURRENT POC.
[2016-10-06 05:03] LABS: BASOPHILS 0.1 % (0.0-2.0); EOSINOPHILS 1.6 % (0-7); HEMATOCRIT 40.2 % (36.0-48.0); HEMOGLOBIN 12.4 g/dL (12-16); IMMATURE GRANULOCYTES 0.9 % (0-5); MCHC 30.8 g/dL (31.0-37.0); MEAN PLATELET VOLUME 9.3 fL (7.4-10.4); MONOCYTES 14.1 % (2-11); NEUTROPHILS 69.3 % (40-80); RBC 4.43 10x6/uL (4.00-5.40); WBC 13.5 10x3/uL (4.8-10.8)
[2016-10-06 05:05] LABS: MCV 90.7 fL (80.0-100.0); PLATELET COUNT 238 10x3/uL (130-400)
[2016-10-06 05:23] LABS: ALBUMIN 2.9 g/dL (3.4-5.0); ALKALINE PHOSPHATASE 86 U/L (46-116); BILIRUBIN - TOTAL 0.59 mg/dL (0.2-1.3); CALCIUM 9.4 mg/dL (8.5-10.1); CHLORIDE - SERUM 92 mmol/L (98-107); CREATININE - SERUM 0.8 mg/dL (0.6-1.3); MAGNESIUM - SERUM 1.7 mg/dL (1.8-2.4); PHOSPHOROUS 3.8 mg/dL (2.5-4.9); PROTEIN - SERUM 7.4 g/dL (6.4-8.2); SODIUM 140 mmol/L (136-145); eGFR NON AFRICAN AMERICAN 80 mL/min (90-120)
[2016-10-06 05:24] LABS: ALT (SGPT) 16 U/L (10-68); CALC OSMOLALITY 283 mosm/kg (275-300); CARBON DIOXIDE 46.6 mmol/L (21.0-32.0); GLUCOSE 123 mg/dL (74-106); UREA NITROGEN 24 mg/dL (7-18)
--- NOTE | 2016-10-06 05:50 | NUR ---
K+ AND MAG LEVELS TO BE TREATED PER PROTOCOL. VSS. CONT POC.
--- NOTE | 2016-10-06 07:07 | OP ---
PATIENT NAME: DOUGLAS HILLS MEDICAL RECORD: [id number] :63 LOCATION:[facility] [id number] ADMISSION DATE:10/03/16 SURGEON: LUIS E COCHRAN MD DATE OF OPERATION: 10/03/2016 PREOPERATIVE DIAGNOSIS: Left knee degenerative joint disease. POSTOPERATIVE DIAGNOSIS: Left knee degenerative joint disease. PROCEDURE PERFORMED: Left total knee arthroplasty. SURGEON: Beltran Cochran MD. ANESTHESIA: General with a block for postop pain. TOURNIQUET TIME: 60 minutes. ESTIMATED BLOOD LOSS: Minimal. CONDITION: She tolerated the procedure well and was transferred to the recovery room in stable condition at termination of the procedure. INDICATIONS: This is a 51-year-old female, who has very significant severe [id number] DJD. This is getting progressively worse. She presents for total knee arthroplasty. We discussed risks, benefits, and alternatives including her weight and diabetes is complication risks. She understood and wished to proceed. We discussed the risk of infection being high. OPERATIVE REPORT: The patient was taken to the operating room and placed in supine position. General anesthesia was obtained. Left knee was confirmed to be the correct knee. It was prepped and draped in normal fashion. She received Ancef per protocol. After prep and drape, she had a secondary ChloraPrep and Ioban dressing placement. This was followed by a midline incision and then medial parapatellar incision. Fat pad was removed. The medial soft tissue sleeve was elevated. I then placed the medial and lateral retractors. Femur was entered with a drill, placed a guide and made a distal femoral cut. I then sized the femur to 62.5 and made the rest of the distal femoral cuts. I then proceeded to sublux the tibia forward, placed the guide to make a proximal tibial cut. All of this was done in some certain degree of difficulty because of her size. The tibia was placed with a femoral component taken through a range of motion and this was marked for rotation. Prepped for a 67 tibia after it was marked for rotation. We took off the back side of the patella, measured this for a 31, drilled the 3 peg holes for a 31 patella. I copiously irrigated and trialed and finally placing with a 62.5 final femur with a 67 tibia, 31 three peg hole patellar button were cemented into place. I then proceeded to hold the leg in extension while the cement dried. I then took out the excess cement and copiously irrigated only, placed a 16 poly. She was irrigated again and closed with #1 barbed PDS then 2-0 Vicryl, then padma. A Provena dressing was placed. She was awakened and transferred to the recovery room in stable condition, although they did have some difficulty extubating her and ____ to BiPAP before she was actually brought back to the room and we will proceed from this juncture. TRANSINT:[id number] Voice Confirmation ID: [id number] DOCUMENT ID: [id number] OPERATIVE REPORT [id number] DOUGLAS HILLS, LUIS E PADILLA MD at 0707 CC: [id number] DICTATION DATE: 10/03/16 162 BUILDING CLEANER: 10/04/16 0043 ADM IN [facility] [address] [place] [address]
--- NOTE | 2016-10-06 07:33 | NUR ---
NO ACUTE DISTRESS NOTED. PT ALERT AND ORIENTED. SITTING UP IN BED AT THIS TIME. DENIES ANY NEEDS. WILL CONTINUE PLAN OF CARE.
--- NOTE | 2016-10-06 08:23 | NUR ---
NOTED ORDER TO DC DILAUDID DOCTOR OF NURSE ANESTHESIA AT THIS TIME. DILAUDID DOCTOR OF NURSE ANESTHESIA DC AT THIS TIME AND 5ML DISCARDED TO SHARPS. COSIGNED BY SECOND RN.
--- NOTE | 2016-10-06 09:00 | NUR ---
Nutrition follow-up: Diet: ADA consistent CHO PO intake ~75% of meals, snacks Wt: 325# Labs reviewed Pt with wound VAC to knee incision Generalized edema noted PO intake is good at this time. RDN following.
--- NOTE | 2016-10-06 10:31 | NUR ---
UP IN BED AWAKE AT THIS TIME WATCHING TV. DENIES ANY NEEDS. NO ACUTE DISTRESS NOTED. WILL CONTINUE PLAN OF CARE.
--- NOTE | 2016-10-06 11:57 | NUR ---
UP IN BED EATING LUNCH AT THIS TIME. NO ACUTE DISTRESS NOTED. WILL CONTINUE PLAN FO CARE.
--- NOTE | 2016-10-06 12:44 | NUR ---
Is the patient Alert and Oriented? Yes 0 * How many steps to enter\exit or inside your home? 3 0 * PCP FIRED BY DR LESLIE BUT IN PROCESS OF FINDING NEW PCP 0 * [facility] 0 * Preadmission Environment Home with Family 0 * ADLs Independent 0 * Equipment BIPAP Nebulizer Oxygen Rolling Walker 0 * Other Equipment PATIENT HAS O2, NEBULIZER, AND BIPAP FROM [facility] 0 * List name and contact numbers for known caregivers / representatives who currently or will assist patient after discharge: DAUGHTER ALMA ALVAREZ [phone] 0 * Community resources currently utilized None 0 * Additional services required to return to the preadmission environment? Yes 0 * Can the patient safely return to the preadmission environment? No 0 * Has this patient been hospitalized within the prior 30 days at any hospital? No PATIENT IS AWAKE AND ALERT. SHE STATES SHE LIVES AT HOME WITH HER DAUGHTER, ALMA. SHE STATES THAT ALMA WILL BE AVAILABLE TO DRIVE HER HOME AT DISCHARGE. SHE STATES SHE IS INDEPENDENT IN HER ADL'S. PATIENT STATES SHE DOES NOT HAVE A PCP AT THIS TIME. SHE STATES DR. LESLIE FIRED HER AND SHE IS TRYING TO GET A NEW PCP. SHE GETS HER MEDS FROM [facility] ON [facility]. PATIENT STATES SHE HAD HOME HEALTH IN THE PAST WITH [facility]. SHE HAS O2, BIPAP, NEBULIZERS AT HOME PROVIDED BY [facility]. SHE ALSO HAS A WALKER. PATIENT STATES THERE ARE 3 STEPS TO ENTER HER HOME. PATIENT IS INTERESTED IN REHAB. DR. COCHRAN HAS ORDERED A PRESCREEN FOR ACUTE REHAB AND THEY HAVE THE INFORMATION. SHE IS MEDICARE REPLACEMENT AND WILL NEED PRIOR AUTH. IF PATIENT IS NOT ABLE TO GO TO ACUTE REHAB SHE IS INTERESTED IN GOING TO [facility]. PATIENT STATES SHE HAS BEEN THERE BEFORE AND WOULD LIKE TO RETURN IF SHE CANNOT GO TO INPATIENT REHAB.
--- NOTE | 2016-10-06 12:46 | NUR ---
Rehab Prescreening Consult recieved and the chart has been reviewed. She meets IRF criteria, but will require a authorization from her [facility] M[facility]. Rehab will submit everything to [facility] for their review today. Spoke to her CM Honey Bejarano RN with this information, she has made the patient aware of the process. Lexi Nettles RN Clinical Liaison, Rehab
--- NOTE | 2016-10-06 14:30 | NUR ---
RESTING IN BED AT THIS TIME. BIPAP IN PLACE. AWAKENS EASILY WHEN STAFF STATES PT NAME. RESPIRATIONS AT STEADY AND UNLABORED RATE. NO ACUTE DISTRESS NOTED. WILL CONTINUE PLAN OF CARE.
--- NOTE | 2016-10-06 15:34 | NUR ---
RESTING AT THIS TIME. NO ACUTE DISTRESS NOTED. BIPAP IN PLACE. RESPIRATIONS AT STEADY AND UNLABORED RATE. WILL CONTINUE PLAN OF CARE.
--- NOTE | 2016-10-06 16:31 | NUR ---
OT NOTE: PT COMPLETED BUE AAROM FOR INCREASED AX TOLERANCE AND SKIN INTEGRITY. PT COMPLETED SIMPLE GROOING WITH SET UP. THANK YOU, CRISPIN UMANA/Marija
--- NOTE | 2016-10-06 17:38 | NUR ---
UP IN BED EATING SUPPER AT THIS TIME. NO ACUTE DISTRESS NOTED. WILL CONTINUE PLAN OF CARE.
--- NOTE | 2016-10-06 18:13 | NUR ---
UP IN BED AWAKE AT THIS TIME. DENIES ANY NEEDS. NO ACUTE DISTRESS NOTED. WILL CONTINUE PLAN OF CARE.
--- NOTE | 2016-10-06 19:10 | NUR ---
1909 ASSESSMENT COMPLETE PER FLOWSHEET, SEE FOR DETAILS. NC @ 2L WITH O2 SATS OF 96-98%. ALERT AND ORIENTED. HESS DRAINING CLEAR YELLOW URINE TO GRAVITY. INCISION ON LEFT KNEE, SITE C/D/I. WOUND VAC PRESENT, DRAINING MINIMAL DRAINAGE. GENERALIZED EDEMA, PERIPHERAL PULSES +2. RIGHT IJ CENTRAL LINE, SITE C/D/I. SEE IV FLOWSHEET FOR FLUIDS. DENIES NEED AT THIS TIME, CL IN REACH. 2109 NIGHT MEDS GIVEN, SANDWHICH TRAY GIVEN PER REQUESTS. VSS, DENIES NEED.
--- NOTE | 2016-10-06 23:00 | NUR ---
REASSESSMENT COMPLETE, NO CHANGES. HESS CARE DONE AT THIS TIME. PATIENT PLACE ON BIPAP WITH 30% O2. DENIES NEED, CL IN REACH.
[2016-10-07] VITALS (21 sets, daily range): BP systolic 93–135; BP diastolic 48–91
--- NOTE | 2016-10-07 01:00 | NUR ---
RESTING WITH EYES CLOSED, VSS.
--- NOTE | 2016-10-07 03:05 | NUR ---
REASSESSMENT COMPLETE, NO CHANGES. VSS.
--- NOTE | 2016-10-07 05:00 | NUR ---
PT RESTING WITH EYES CLOSED. VSS.
[2016-10-07 05:24] LABS: BILIRUBIN - TOTAL 0.57 mg/dL (0.2-1.3); CALCIUM 9.6 mg/dL (8.5-10.1); CREATININE - SERUM 0.9 mg/dL (0.6-1.3); PHOSPHOROUS 4.5 mg/dL (2.5-4.9); POTASSIUM - SERUM 3.5 mmol/L (3.5-5.1); PROTEIN - SERUM 7.7 g/dL (6.4-8.2)
[2016-10-07 05:29] LABS: ANION GAP 3.3 mmol/L (8-16); CARBON DIOXIDE 46.2 mmol/L (21.0-32.0)
[2016-10-07 05:51] LABS: BASOPHILS 0.1 % (0.0-2.0); EOSINOPHILS 0.1 % (0-7); HEMOGLOBIN 12.8 g/dL (12-16); IMMATURE GRANULOCYTES 0.7 % (0-5); LYMPHOCYTES 7.8 % (15-50); MCH 28.1 pg (26.0-34.0); MCHC 31.2 g/dL (31.0-37.0); MCV 89.9 fL (80.0-100.0); MEAN PLATELET VOLUME 9.5 fL (7.4-10.4); MONOCYTES 8.4 % (2-11); NEUTROPHILS 82.9 % (40-80); RBC 4.56 10x6/uL (4.00-5.40); RDW 15.1 % (11.5-14.5); WBC 16.2 10x3/uL (4.8-10.8)
[2016-10-07 05:54] LABS: PLATELET COUNT 293 10x3/uL (130-400)
--- NOTE | 2016-10-07 07:18 | NUR ---
UP IN BED AWAKE AT THIS TIME. DENIES ANY NEEDS. BIPAP IN PLACE. NO ACUTE DISTRESS NOTED. CALL LIGHT IN REACH. WILL CONTINUE PLAN OF CARE.
--- NOTE | 2016-10-07 09:34 | NUR ---
UP IN BED AT THIS TIME AWAKE, DENIES ANY NEEDS. NO ACUTE DISTRESS NOTED. NOTED THERE IS NO DRAINAGE TO WOUND VAC TO LEFT KNEE. WILL CONTINUE PLAN OF CARE.
--- NOTE | 2016-10-07 10:23 | NUR ---
BED BATH PROVIDED AT THIS TIME. PT ABLE TO BATHE UPPPER BODY. FULL LINEN CHANGE PROVIDED WELL. PT TURNS SELF INDEPENDENTLY. NO ACUTE DISTRESS NOTED. WILL CONTINUE PLAN OF CARE.
--- NOTE | 2016-10-07 12:18 | NUR ---
UP IN BED EATING LUNCH AT THIS TIME. NO ACUTE DISTRESS NOTED. ABLE TO STATE NEEDS. NOTED PT HAS TRANSFER ORDERS TO FLOOR TODAY. WILL TRANSFER PT WHEN RECIEVED ROOM NUMBER TO TRANSFER TO. WILL CONTINUE PLAN OF CARE.
--- NOTE | 2016-10-07 14:52 | NUR ---
RESTING IN BED AT THIS TIME. NO ACUTE DISTRESS NOTED. RESPIRATIONS AT STEADY AND UNLABORED RATE. WILL CONTINUE PLAN OF CARE.
--- NOTE | 2016-10-07 16:15 | NUR ---
UP IN BED AWAKE AT THIS TIME. DENIES ANY NEEDS. NO ACUTE DISTRESS NOTED. WILL CONTINUE PLAN OF CARE.
--- NOTE | 2016-10-07 18:48 | NUR ---
UP IN BED AWAKE AT THIS TIME. DENIES ANY NEEDS. WILL CONTINUE PLAN OF CARE.
--- NOTE | 2016-10-07 19:15 | NUR ---
1915- SHIFT ASSESSMENT COMPLETE, PATIENT ALERT AND ORIENTEDX4, NC @ 2L WITH O2 SATS 98%. HESS CATHETER DRAINING CLEAR YELLOW URINE. PERIPHERAL PULSES +2, BILATERAL. GENERALIZED EDEMA IN ALL EXTREMITIES. INCISION ON LEFT KNEE, WOUND VAC PRESENT. SITE IS C/D/I AND NO DRAINIAGE NOTED IN WOUND VAC. CENTRAL LINE IN RIGHT JUGULAR, SEE IV FLOWSHEET FOR DETAILS. SITE IS C/D/I. VSS, CL IN REACH. 1845- NIGHT MEDS GIVEN, PT DENIES NEED, VSS, CL IN REACH. 2255- REASSESSMENT COMPLETE, NO ACUTE CHANGES. SANDWHICH TRAY GIVEN PER REQUESTS. 0100- PATIENT RESTING COMFORTABLY AT THIS TIME, DENIES NEED. 0300- REASSESSMENT COMPLETE AT THIS TIME. PATIENT NOW ON BIPAP @ 30% RESTING WITH EYES CLOSED. NO ACUTE CHANGES. KNEE INCISION IS C/D/I AND WITHOUT REDNESS. NO DRAINGE NOTED IN WOUND VAC. VSS, WILL MONITOR.
[2016-10-08 03:00] VITALS: BP 107/63
[2016-10-08 05:47] LABS: BASOPHILS 0 % (0.0-2.0); EOSINOPHILS 0.4 % (0-7); HEMATOCRIT 40.6 % (36.0-48.0); HEMOGLOBIN 12.5 g/dL (12-16); IMMATURE GRANULOCYTES 0.5 % (0-5); LYMPHOCYTES 9.5 % (15-50); MCH 27.7 pg (26.0-34.0); MCHC 30.8 g/dL (31.0-37.0); MCV 89.8 fL (80.0-100.0); MEAN PLATELET VOLUME 9.1 fL (7.4-10.4); MONOCYTES 10.2 % (2-11); NEUTROPHILS 79.4 % (40-80); PLATELET COUNT 275 10x3/uL (130-400); RBC 4.52 10x6/uL (4.00-5.40); RDW 14.9 % (11.5-14.5); WBC 15.2 10x3/uL (4.8-10.8)
[2016-10-08 06:27] LABS: ALBUMIN 2.9 g/dL (3.4-5.0); BILIRUBIN - TOTAL 0.51 mg/dL (0.2-1.3); CALCIUM 9.6 mg/dL (8.5-10.1); CREATININE - SERUM 0.9 mg/dL (0.6-1.3); MAGNESIUM - SERUM 1.9 mg/dL (1.8-2.4); PHOSPHOROUS 5.2 mg/dL (2.5-4.9); POTASSIUM - SERUM 3.6 mmol/L (3.5-5.1); PROTEIN - SERUM 7.4 g/dL (6.4-8.2)
[2016-10-08 06:30] LABS: ANION GAP 4.7 mmol/L (8-16); CARBON DIOXIDE 40.9 mmol/L (21.0-32.0)
[2016-10-08 07:00] VITALS: BP 103/60; BP 111/66
--- NOTE | 2016-10-08 08:45 | NUR ---
UP IN BED AWAKE AT THIS TIME. DENEIS ANY NEEDS. NO ACUTE DISTRESS NOTED. NOTED PT HAS TRASNFER ORDERS. WAITING TO RECIEVE ROOM NUMBER. WILL CONTINUE PLAN OF CARE.
--- NOTE | 2016-10-08 10:58 | NUR ---
NOTED PT HAS PRESCREENING CONSULTS FOR INPATIENT REHAB. CALLED JOY WHO IS CREDIT COLLECTION ASSOCIATE FOR INPATIENT REHAB PRESCREENING, DR PEDRAZA WROTE A NOTED STATING PT WOULD BE ABLE TO TRANSFER FROM ICU TO REHAB IF THEY ACCEPT HER. SHE JOY STATED SHE WOULD LOOK INTO PT CASE AND NOTIFY STAFF ON POSSIBLE ADMISSION STATUS TO REHAB.
[2016-10-08 11:00] VITALS: BP 98/56
--- NOTE | 2016-10-08 13:33 | NUR ---
UP IN BED TALKING ON CELLPHONE AT THIS TIME. DENIES ANY NEEDS. NO ACUTE DISTRESS NOTED. WILL CONTINUE PLAN OF CARE.
--- NOTE | 2016-10-08 13:34 | NUR ---
RECIEVED CALLBACK ON PT FOR INPATIENT REHAB, NOTED UNIT IS WAITING TO SEE IF PTS INSURANCE WILL ACCEPT PT TO GO TO UNIT PER JOY. NOTED WILL HAVE ANSWER TOMORROW.
--- NOTE | 2016-10-08 13:36 | NUR ---
REHAB PRESCREENING This patient does meet criteria for admission to rehab. She will require pre-authorization from her insurance for a rehab stay. Lexi Nettles sent required documentation on Sunday. She will be accepted to rehab when authorization is received. Thank you for this referral! Beverly Ernst, CRANE RIGGER/[facility]
[2016-10-08 15:00] VITALS: BP 103/58
--- NOTE | 2016-10-08 15:24 | NUR ---
UP IN BED AWAKE AT THIS TIME. DENIES ANY NEEDS. NO ACUTE DISTRESS NOTED. WILL CONTINUE PLAN OF CARE.
--- NOTE | 2016-10-08 16:27 | NUR ---
CENTRAL LINE DRESSING CHANGE PERFORMED TO RIGHT JUGULAR SITE. OLD DRESSING NOTED NO LONGER SECURE TO SKIN. DRESSING CHANGE PERFORMED VIA STERILE TECHNIQUE. NO DRAINAGE OR REDNESS NOTED TO SITE. NO ACUTE DISTRESS NOTED. WILL CONTINUE PLAN OF CARE.
--- NOTE | 2016-10-08 17:21 | NUR ---
UP IN BED EATING SUPPER AT THIS TIME. DENIES ANY NEEDS. WILL CONTINUE PLAN OF CARE.
[2016-10-08 19:00] VITALS: BP 103/55
--- NOTE | 2016-10-08 19:00 | NUR ---
REPORT RECEIVED AND ASSESSMENT COMPLETED. SEE FLOWSHEET. NO DRAINAGE PRESENT IN PATIENTS WOUND VAC
[2016-10-08 23:00] VITALS: BP 112/60
--- NOTE | 2016-10-08 23:00 | NUR ---
FOUND HESS WAS LEAKING. REPLACED AT THIS TIME. REASSESSMENT COMPLETED. SEE FLOWSHEET FOR FULL DETAILS.
--- NOTE | 2016-10-09 01:09 | NUR ---
0100 MEDS GIVE. NO CHANGE IN PT STATUS AT THIS TIME. WILL CONTINUE TO MONITOR
[2016-10-09 03:00] VITALS: BP 101/53
--- NOTE | 2016-10-09 03:00 | NUR ---
PT SLEEPING IN ROOM. NO CHANGES AT THIS TIME. VSS. WILL CONTINUE TO MONITOR.
[2016-10-09 05:01] LABS: BASOPHILS 0.1 % (0.0-2.0); EOSINOPHILS 0.5 % (0-7); HEMATOCRIT 41.1 % (36.0-48.0); HEMOGLOBIN 12.9 g/dL (12-16); IMMATURE GRANULOCYTES 0.4 % (0-5); LYMPHOCYTES 8.3 % (15-50); MCH 28.2 pg (26.0-34.0); MCHC 31.4 g/dL (31.0-37.0); MCV 89.9 fL (80.0-100.0); MEAN PLATELET VOLUME 9.1 fL (7.4-10.4); NEUTROPHILS 83.7 % (40-80); PLATELET COUNT 245 10x3/uL (130-400); RBC 4.57 10x6/uL (4.00-5.40); WBC 16.9 10x3/uL (4.8-10.8)
[2016-10-09 05:25] LABS: ANION GAP 6.8 mmol/L (8-16); BILIRUBIN - TOTAL 0.53 mg/dL (0.2-1.3); CALCIUM 9.5 mg/dL (8.5-10.1); CARBON DIOXIDE 38.9 mmol/L (21.0-32.0); CREATININE - SERUM 0.9 mg/dL (0.6-1.3); POTASSIUM - SERUM 3.7 mmol/L (3.5-5.1); PROTEIN - SERUM 7.6 g/dL (6.4-8.2)
--- NOTE | 2016-10-09 07:20 | NUR ---
PATIENT IS AWAKE, ALERT AND ORIENTED X'S 4. RESPIRATIONS ARE UNLABORED ON 2L/MIN NASAL CANNULA. PATIENT REQUESTED A PAIN PILL, CHECKED PATIENT'S MAR EXPLAINED THAT IT IS AVAILABLE IN A LITTLE OVER 30 MINS. PATIENT VERBALIZED UNDERSTANDING. BED IN LOWEST POSITION, CALL LIGHT IN REACH. BED RIALS UP X'S 2.
--- NOTE | 2016-10-09 07:50 | NUR ---
RESTING IN BED, DENIES NEEDS, ALERT AND ORIENTED, CALL LIGHT IN REACH, BED LOWEST POSITION, WILL CONTINUE TO MONITOR
[2016-10-09 07:56] LABS: MAGNESIUM - SERUM 1.9 mg/dL (1.8-2.4); PHOSPHOROUS 5.3 mg/dL (2.5-4.9)
[2016-10-09 08:14] VITALS: BP 92/38
--- NOTE | 2016-10-09 09:38 | NUR ---
10/09/2016 9:30 DCP: Discharge Planning CM met with patient regarding dc disposition - rehab screen in progress - waiting insurance determination. Patient is agreeable to SNF placement. Insurance will most likely deny inpatient rehab and approve skilled. Patient has been to [facility] & wants to return. MATT signed. Referral faxed and called to Renita at [facility]
--- NOTE | 2016-10-09 10:55 | NUR ---
Visited with this patient today re the status of the preauthorization with [facility] for IRF. The patient wants to come to rehab and understands the need for a preauth first. She says she has spoken to the CM Rahel Obregon about a SNF referral to [facility]. She has been to [place] in the past,but prefers inpatient rehab at [facility]. She wants to see if her insurance will approve rehab before she decides to go to [place]. Discussed this with the Rahel Obregon RN. Called and spoke to Alyssa at [facility], also faxed U/D'd clinicals and PT notes. The case is still pending according to Alyssa. I requested an expediated descision by tomorrow morning per patient's request and choice for IRF. Lexi Nettles RN Clinical Liaison, Rehab
[2016-10-09 12:07] VITALS: BP 123/73
[2016-10-09 15:29] VITALS: BP 108/54
--- NOTE | 2016-10-09 15:30 | NUR ---
Recieved a call from Anna at [facility], ext [phone]. The biomedical engineering technologist has reviewed the case and denied acute inpatient rehab for this patient. If physician disagrees a peer to peer with the medical directory can be arranged by calling Anna at the above number. Called and left a voice mail for Rahel Obregon RN with this information. Lexi Nettles RN Clinical Liaison, Rehab
--- NOTE | 2016-10-09 16:27 | NUR ---
10/09/2016 16:26 DCP: Discharge Planning Rec'd call from Renita with [facility] - they have rec'd auth from [facility] & can accept patient tomorrow to a [facility] bed. Transport van will pick her up around 0900. Nursing to call report to [phone]. CM will follow.
--- NOTE | 2016-10-09 19:40 | NUR ---
ASSESSMENT COMPLETED, NO ACUTE DISTRESS NOTED, DENIES PAIN OR NEEDS AT THIS TIME, FALL PRECAUTIONS IN PLACE, CL IN REACH, WILL MONITOR
--- NOTE | 2016-10-09 22:41 | NUR ---
MEDS GIVEN PER MAR, KAYLIN WELL, DENIES NEEDS AT THIS TIME, CL IN REACH
--- NOTE | 2016-10-09 23:22 | NUR ---
RESTING WITH EYES CLOSED, BIPAP IN PLACE, NO DISTRESS NOTED, SR'S UP, CL IN REACH
[2016-10-10] VITALS: BP 114/50
[2016-10-10 04:00] VITALS: BP 96/41
[2016-10-10 05:18] LABS: BASOPHILS 0.1 % (0.0-2.0); EOSINOPHILS 0.8 % (0-7); HEMATOCRIT 39.9 % (36.0-48.0); HEMOGLOBIN 12.4 g/dL (12-16); IMMATURE GRANULOCYTES 0.8 % (0-5); LYMPHOCYTES 9.4 % (15-50); MCH 28.2 pg (26.0-34.0); MCHC 31.1 g/dL (31.0-37.0); MCV 90.7 fL (80.0-100.0); MEAN PLATELET VOLUME 9.3 fL (7.4-10.4); MONOCYTES 7.2 % (2-11); NEUTROPHILS 81.7 % (40-80); PLATELET COUNT 261 10x3/uL (130-400); WBC 17.3 10x3/uL (4.8-10.8)
[2016-10-10 05:27] LABS: CALC OSMOLALITY 291 mosm/kg (275-300); CALCIUM 9.4 mg/dL (8.5-10.1); CHLORIDE - SERUM 95 mmol/L (98-107); CREATININE - SERUM 0.8 mg/dL (0.6-1.3); GLUCOSE 175 mg/dL (74-106); MAGNESIUM - SERUM 1.8 mg/dL (1.8-2.4); POTASSIUM - SERUM 3.7 mmol/L (3.5-5.1); SODIUM 139 mmol/L (136-145); UREA NITROGEN 40 mg/dL (7-18); eGFR NON AFRICAN AMERICAN 80 mL/min (90-120)
--- NOTE | 2016-10-10 07:15 | NUR ---
PATIENT IN BED WITH NO COMPLAINTS OR SIGNS OF DISTRESS AT THIS TIME. FAMILY AT BEDSIDE. CALL LIGHT WITHIN REACH.
--- NOTE | 2016-10-10 07:30 | NUR ---
PT RESTING IN BED WITH EYES OPEN. ALERT AND ORIENTED X 3. DENIES ACUTE PAIN OR DISCOMFORT AT THIS TIME. WOUND VAC INTACT TO LEFT KNEE. IV INFUSING TO RIGHT NECK JUGULAR LINE WITHOUT DIFFICULTY. HESS CATH PATENT AND DRAINING TO A GRAVITY BAG. O2 IS ON @ 2LPM PER NC. NO SOB NOTED. SR'S AR EUP X 3 IN BED. CALL LIGHT AND BEDSIDE TABLE ARE WITHIN EASY REACH.
[2016-10-10 07:58] VITALS: BP 129/52
[2016-10-10] MEDS ORDERED: ELIQUIS2.5 MG PO (08:51)
[2016-10-10] MEDS ORDERED: OXYCODONE HCL5 MG PO (08:52)
--- NOTE | 2016-10-10 09:00 | NUR ---
WOUND VAC REMOVED FROM LEFT KNEE. INCISION IS WELL APPROXIMATED. CLIPS ARE INTACT. NO DRAINAGE NOTED. ISLAND DRESSING APPLIED. RIGHT NECK JUGULAR CENTRAL LINE DC'D WITH CATHETER INTACT. NO BLEEDING NOTED. PRESSURE DRESSING APPLIED. PT INSTRUCTED TO LEAVE DRESSING ON FOR 24 HOURS, AND TO REPORT ANY BLEEDING IMMEDIATELY. VERBAL UNDERSTANDING VOICED.
--- NOTE | 2016-10-10 09:36 | NUR ---
REPORT CALLED TO GEORGINA AT [facility]. PT DC'D WITH THERE EMERGENCY OPERATOR VIA AT THIS TIME.
--- NOTE | 2016-11-03 09:54 | DS ---
PATIENT:DOUGLAS HILLS :63 MEDICAL RECORD: [id number] DISCHARGE SUMMARY ADMISSION DATE: 10/03/16 DISCHARGE DATE: 10/10/16 DATE OF ADMISSION: 10/03/2016 DATE OF DISCHARGE: 10/10/2016 ADMITTING DIAGNOSIS: Left knee degenerative joint disease. DISCHARGE DIAGNOSES: Left knee degenerative joint disease plus acute blood loss anemia. HISTORY OF PRESENT ILLNESS: This is a 51-year-old woman who was admitted for total knee arthroplasty. She also has a postop diagnosis of morbid obesity and COPD. She has presented and underwent a total knee arthroplasty quite well, but certainly struggled with her lung problems postoperatively. She did require an ICU stay and pulmonary consultation. She progressed relatively well for her size with the knee, but definitely struggled with her lungs, ended up staying until the secondary more to the morbid obesity and lung problems than the knee, but at the , was able to be discharged to [facility] to continue on her current rehab for knee arthroplasty, pain medications and anticoagulation therapy. She is to see us back in the office in about 2 weeks. TRANSINT:[id number] Voice Confirmation ID: [id number] DOCUMENT ID: [id number] LUIS E COCHRAN MD at 0954 CC: [id number] DICTATION DATE: 10/31/16 1033 GENERAL PASSENGER AGENT: 10/31/16 2336 DIS IN 10/10/[address] [address]
== END 2016-10-10 09:47 | DRG 469 ==
LOC: D.SDCHOLD 10-03 06:25 → D.ICU 10-03 06:25 → D.MS 10-03 06:25 → D.SDCHOLD 10-03 09:00 → D.MS 10-03 15:27 → D.SDCHOLD 10-03 17:30 → D.ICU 10-03 17:34 → D.MS 10-09 06:17
PROVIDERS: Emergency Medicine; Family Medicine; Internal Medicine Pulmonary Disease; ADMIT Orthopaedic Surgery Sports Medicine
PROC: 5A09557 Assistance with Respiratory Ventilation, Greater than 96 Consecutive Hours, Continuous Positive Airway Pressure (ICD-10-PCS; 2016-10-03)
PROC: 0SRD0J9 Replacement of Left Knee Joint with Synthetic Substitute, Cemented, Open Approach (ICD-10-PCS; principal; 2016-10-03 11:15)
DX: M17.12 Unilateral primary osteoarthritis, left knee (principal); J96.22 Acute and chronic respiratory failure with hypercapnia; J96.21 Acute and chronic respiratory failure with hypoxia; I50.23 Acute on chronic systolic (congestive) heart failure; J44.1 Chronic obstructive pulmonary disease with (acute) exacerbation; E66.2 Morbid (severe) obesity with alveolar hypoventilation; Z68.44 Body mass index [BMI] 60.0-69.9, adult; E87.2 Acidosis; G72.81 Critical illness myopathy; I11.0 Hypertensive heart disease with heart failure; J32.9 Chronic sinusitis, unspecified; I07.1 Rheumatic tricuspid insufficiency; E11.9 Type 2 diabetes mellitus without complications; Z79.4 Long term (current) use of insulin; J45.909 Unspecified asthma, uncomplicated

== ENCOUNTER → 2016-10-19 09:34 | Outpatient (CLI) | payer MEDICARE, MEDICAID ==
[2016-10-04 10:31] VITALS: BMI 63.0
[~2016-10-19 09:34] MED LIST changes: +ELIQUIS2.5 MG PO; +OXYCODONE HCL5 MG PO; +ROBAXIN500 MG PO
== END | disposition home or self-care (01) ==
LOC: D.RT 09:34
DX: J44.9 Chronic obstructive pulmonary disease, unspecified (principal)

== ENCOUNTER → 2016-11-08 14:40 | Outpatient (CLI) | payer MEDICARE, MEDICAID ==
[2016-10-04 10:31] VITALS: BMI 63.0
== END | disposition home or self-care (01) ==
LOC: D.RAD 14:40
DX: R09.89 Other specified symptoms and signs involving the circulatory and respiratory systems (principal)

== ENCOUNTER → 2016-11-20 10:08 | Outpatient (CLI) | payer MEDICARE ==
[2016-10-04 10:31] VITALS: BMI 63.0
== END | disposition home or self-care (01) ==
LOC: D.RAD 10:08
DX: S89.92XA Unspecified injury of left lower leg, initial encounter (principal)

== ENCOUNTER 2016-11-25 13:40 | Inpatient (IN) | payer MEDICARE ==
[~2016-11-25] VITALS: Ht 152.4 cm; Wt 143.0 kg
[2016-11-25] VITALS (9 sets, daily range): BP systolic 112–142; BP diastolic 71–82
--- NOTE | ~2016-11-25 | HEMODYNAMI ---
PATIENT:DOUGLAS HILLS MEDICAL RECORD: [id number] : 63 LOCATION:[facility] D.2309 ADMISSION DATE: 11/25/16 Generatedon:11/26/201611:43 Patient name: DOUGLAS HILLS Patient #: [id number] SSN: : 1965 Date of study: 11/26/2016 Page: Of Hemodynamic Procedure Report Patient Data Patient Demographics Procedure consent was obtained First Name: DOUGLAS Gender: Female Last Name: JEANA : 1965 Middle Initial: J Age: 51 year(s) Patient #: [id number] Race: Additional ID: [id number] Contact details Address: [address] [address] State: [place] City: [place] Zip code: [address] Admission Admission Data Admission Date: 11/25/2016 Admission Time: 15:18 Room #: D.2309 Procedure Procedure Types Cath Procedure Peripheral Cath Diagnostic Procedure Miscellaneous Procedure Description Procedure Date Procedure Date: 11/26/2016 Procedure Start Time: 11:02 Procedure Staff Name Function Barbie Alvarez RT Scrub Jun Sandhu RT Monitor Alina Du RN Nurse Slim Haines MD Performing Physician Procedure Data Cath Procedure Fluoroscopy Diagnostic fluoroscopy Total fluoroscopy Time: 8.8 time: 8.8 min min Diagnostic fluoroscopy Total fluoroscopy dose: 88 dose: 88 mGy mGy Contrast Material Contrast Material Type Amount (ml) Visipaque 270 0 Isovue 300 10 Diagnostic catheters Device Type Used For End Catheter Placement Merit Impress KA 2 5Fr 40CM catheter Hemodynamics Rest Heart Rate: 70 (bpm) Snapshots Pre Cath Intra NCS Post Cath Vital Signs Time Heart Resp SPO2 NIBP (mmHg) Rhythm Pain Sedation Rate (ipm) (%) Status Level (bpm) 10:55:23 69 27 97 153/75(107) NSR 0 (11) 10(A) , No pain 10:59:53 69 27 96 158/80(122) NSR 0 (11) 10(A) , No pain 11:04:15 69 22 96 154/84(115) NSR 0 (11) 10(A) , No pain 11:08:44 68 21 96 158/83(128) NSR 0 (11) 10(A) , No pain 11:13:10 70 22 96 157/83(118) NSR 0 (11) 10(A) , No pain 11:17:38 68 0 96 162/84(135) NSR 0 (11) 10(A) , No pain 11:22:06 69 0 96 161/82(122) NSR 0 (11) 10(A) , No pain 11:26:37 70 27 96 162/87(127) NSR 0 (11) 10(A) , No pain 11:31:01 69 21 96 165/82(123) NSR 0 (11) 10(A) , No pain 11:35:34 69 18 96 163/77(123) NSR 0 (11) 10(A) , No pain 11:40:00 68 21 96 160/85(124) NSR 0 (11) 10(A) , No pain Procedure Log Time Note 10:50:29 Barbie Alvarez RT(R) sent for patient. Start room use. 10:50:41 Time tracking: Regular hours 10:50:45 Plan of Care:Hemodynamics will remain stable., Cardiac rhythm will remain stable., Comfort level will be maintained., Respiratory function will remain adequate., Patient/ family verbilizes understanding of procedure., Procedure tolerated without complication., Recovers from procedure without complications.. 10:50:53 Patient received from ICU to IR Alert and oriented. Tansferred to table in Supine position. 10:50:54 Correct patient and procedure confirmed by team. 10:50:56 Signed procedure consent form obtained from patient. 10:50:57 ECG and BP/O2 sat monitors applied to patient. 10:50:59 Full Disclosure recording started 10:51:00 - 10:51:03 H&P Date Dictated: 11/26/2016 Within 30 days and on chart.. 10:51:14 Unable to provide pre-op teaching due to educational barrier. on vent and sedated 10:51:16 Family unavailable. 10:51:18 Patient NPO since Midnight. 10:51:36 Left chest area was prepped with chlora-prep and draped in sterile fashion 10:51:38 Alarms reviewed by R. N. 10:51:38 Alarms reviewed by R. N. 10:53:55 Vital chart was started 10:53:59 Baseline sample Acquired. 11:01:41 Physician arrived 11::42 Final Timeout: patient, procedure, and site verified with staff and physician. All members of the team are in agreement. 11::42 --------ALL STOP TIME OUT------ 11:01:44 Left chest site verified by team. 11:01:49 Physical assessment completed. ASA score P 3 - A patient with severe systemic disease as per Slim Haines MD. 11:01:55 Sedation plan: IV Moderate Sedation Lidocaine 11:02:10 Procedure started. 11:02:23 Local anesthetic to left subclavian vein with Lidocaine 1% by Slim Haines MD.INITIAL ACCESS ONLY 11:05:31 Terumo ANGLE 180L glide wire opened to sterile field. 11:11:24 One-Song DOC .035 guide wire opened to sterile field. 11:12:20 A Taskforce Impress KA 2 5Fr 40CM catheter was advanced over the wire and used for . 11:21:36 Terumo ANGLED SS 260CM glide wire opened to sterile field. 11:28:31 Micropuncture VSI 4FR kit opened to sterile field. 11:39:09 Procedure ended.(Physican Out) 11:39:39 Fluoroscopy time 08.80 minutes. 11:39:43 Fluoroscopy dose: 88 mGy 11:39:43 Flurop Dose total: 88 11:39:47 Contrast amount:Visipaque 270 0ml. 11:39:50 Contrast amount:Isovue 300 10ml. 11:39:52 Sharps counted by scrub and verified by R.N. 11:39:54 Insertion/operative site no bleeding no hematoma. 11:40:30 Post left IJ vein artery:stable 11:41:03 Post Procedure Pulses reassessed and unchanged 11:41:10 Post-procedure physical assessment completed. ASA score P 3 - A patient with severe systemic disease as per Slim Haines MD. 11:41:12 Post procedure instruction explained to patient.Patient verbalizes understanding. 11:41:13 Procedure and supply charges have been captured, reviewed, submitted an d are correct. 11:41:33 Report given to ICU. 11:41:37 Patient transfered to ICU with Bed. 11:42:22 Full Disclosure recording stopped Device Usage Item Name Manufacture Quantity Catalog Hospital Part Current Minimal Lot# / Number Charge Number Stock Stock Serial# Code Terumo ANGLE Terumo 1 [id number] 5 180L glide wire Cook DOC .035 Cook Medical 1 [id number] 5 1980995 guide wire Merit Impress Merit 1 [id number] 5 KA 2 5Fr 40CM Medical catheter Terumo ANGLED Terumo 1 [id number] [id number] 5 SS 260CM glide wire Micropuncture VSI VASCULAR 1 [id number] 5 VSI 4FR kit SOLUTIONS Signature Audit Peterson Stage Time Signature Unsigned Intra-Procedure 11/26/2016 Jun 11:43:41 AM Shuffield RT (R) (CV) Signatures Monitor : Jun Signature : Scottieield RT Date : Time : [id number] [place] [address]
--- NOTE | ~2016-11-25 | CN ---
PATIENT NAME:DOUGLAS HILLS MEDICAL RECORD: [id number] : 63 LOCATION:[facility].2309 ADMIT DATE: 11/25/16 ACCOUNT: [id number] CONSULTING PHYSICIAN: ALIZE LAMB MD REFERRING PHYSICIAN: KAZ HERNANDEZ MD DATE OF CONSULTATION: 11/25/2016 PULMONARY CONSULTATION CONSULT REQUESTING PHYSICIAN: Kaz Hernandez MD REASON FOR CONSULTATION: Vent management, acute respiratory failure. HISTORY OF PRESENT ILLNESS: Ms Hills is a 51-year-old female, very well known to our service. She has a history of COPD, congestive heart failure, morbid obesity, obesity hypoventilation syndrome, multiple admissions with respiratory failure and mechanical ventilation. Now, the patient is orally intubated and sedated. The history was taken by reviewing the chart and talking to the ER doctor. The patient was gone home a few days ago from the halfway. The patient is noncompliant using her BiPAP machine. She was found at home breathing just 5 to 6 breaths a minute, brought into the ER and electively intubated. Initial ABG at the ER, CO2 was 7.32, pCO2 was 70.9, pO2 was 67, bicarb is 36.6. Also, she has decreased bowel sounds and possible there is associated bowel obstruction. The patient does have a bilateral upper lobe pneumonia. REVIEW OF SYSTEMS: Mainly in the history of present illness. PAST MEDICAL HISTORY: 1. History of chronic hypoxic hypercapnic respiratory failure. 2. Chronic obstructive pulmonary disease. 3. Associated asthma. 4. Congestive heart failure, chronic diastolic dysfunction. 5. Morbid obesity. 6. Type 2 diabetes mellitus. 7. Osteoarthritis. 8. Obstructive sleep apnea. PAST SURGICAL HISTORY: Nonsignificant. ALLERGIES: SHE IS ALLERGIC TO LYRICA AND TRAMADOL. PRESENT MEDICATIONS: On [employer] was reviewed. PERSONAL AND SOCIAL HISTORY: The patient is a nonsmoker, nondrinker. FAMILY HISTORY: Noncontributory. PHYSICAL EXAMINATION: GENERAL: Now, the patient is orally intubated and sedated. HEENT: Conjunctivae are pink. Sclerae nonicteric. Pupils are equal, round, reactive to light. NECK: Supple, no JVD. CHEST: There is a bilateral crackles, wheeze with expiration. HEART: Rate and rhythm regular, normal sound, no murmur. CONSULT REPORT [id number] DOUGLAS HILLS ABDOMEN: Distended. The bowel sounds are muffled. RECTAL: Deferred. EXTREMITIES: No cyanosis, no clubbing. There is 1+ pedal edema. SKIN: Warm, normal turgor. CENTRAL NERVOUS SYSTEM: The patient is orally intubated and sedated. There is no obvious cranial nerve abnormality. LABORATORY DATA: CBC: WBC 15,000, hemoglobin 12, hematocrit 41.1, the platelet count was 235. ABG: The pH is 7.32, pCO2 is 70.9, the pO2 is 67, bicarb is 36.6. Chemistry: Sodium 143, potassium 3.6, chloride 98, bicarbonate is 44.1. The BUN is 20, creatinine 1.2. AST is 126, ALT is 93. CHEST RADIOGRAPH: Bilateral upper lobe infiltrate. IMPRESSION: 1. Enhhs-co-xtfemga hypoxic hypercapnic respiratory failure, acute exacerbation of chronic obstructive pulmonary disease. 2. Respiratory acidosis secondary to #1. 3. Obesity hypoventilation syndrome. 4. History of obstructive sleep apnea. 5. Pneumonia, bilateral upper lobe, most likely community-acquired pneumonia, possible aspiration when the patient was unresponsive. 6. Leukocytosis secondary to pneumonia. 7. Congestive heart failure. 8. Morbid obesity. 9. Elevated liver enzymes. RECOMMENDATION: 1. We will continue mechanical ventilation. 2. Levaquin and Zosyn IV. 3. DVT and GI stress ulcer prevention. 4. Albuterol ipratropium nebulizer. 5. Brovana and budesonide nebulizer. 6. Lasix 40 mg a day. 7. Propofol. 8. Continue the vent bundle. Follow up on the labs and chest radiograph. Dr. Hernandez, once again thanks for involving me in the care of Mrs. Hills. TRANSINT:[id number] Voice Confirmation ID: [id number] DOCUMENT ID: [id number] ALIZE LAMB MD CC: KAZ HERNANDEZ MD [id number] DICTATION DATE: 11/25/161555 MANAGER SOLUTION: 11/25/16 2356 ADM IN [facility] [address] [id number]
[2016-11-25 14:09] LABS: BASOPHILS 0.1 % (0-2); EOSINOPHILS 0.7 % (0-7); HEMATOCRIT 41.1 % (36.0-48.0); IMMATURE GRANULOCYTES 1.3 % (0-5); LYMPHOCYTES 7.5 % (15-50); MCH 28.4 pg (26.0-34.0); MCHC 29.2 g/dL (31.0-37.0); MCV 97.4 fL (80.0-100.0); MEAN PLATELET VOLUME 8.7 fL (7.4-10.4); MONOCYTES 2.4 % (2-11); PLATELET COUNT 235 10x3/uL (130-400); RBC 4.22 10x6/uL (4.00-5.40); RDW 15.1 % (11.5-14.5)
[2016-11-25 14:37] LABS: KETONE - SERUM NEGATIVE (NEGATIVE)
[2016-11-25 14:48] LABS: ALBUMIN 2.9 g/dL (3.4-5.0); ALKALINE PHOSPHATASE 134 U/L (46-116); ALT (SGPT) 93 U/L (10-68); BILIRUBIN - TOTAL 0.45 mg/dL (0.2-1.3); CALCIUM 8.9 mg/dL (8.5-10.1); CHLORIDE - SERUM 98 mmol/L (98-107); CKMB 1.3 U/L (0.0-3.6); CREATINE KINASE 30 UL (21-215); CREATININE - SERUM 1.2 mg/dL (0.6-1.3); DIGOXIN 0.53 ng/mL (0.90-2.00); POTASSIUM - SERUM 3.6 mmol/L (3.5-5.1); PRO BNP 3567 pg/mL (0-125); PROTEIN - SERUM 7.3 g/dL (6.4-8.2); SODIUM 143 mmol/L (136-145); THYROID STIMULATING HORMONE 7.28 uIU/mL (0.36-3.74); UREA NITROGEN 20 mg/dL (7-18); eGFR NON AFRICAN AMERICAN 50 mL/min (90-120)
[2016-11-25 14:57] LABS: CALC OSMOLALITY 296 mosm/kg (275-300); GLUCOSE 257 mg/dL (74-106); TROPONIN-I < 0.017 ng/mL (0.000-0.060)
[2016-11-25 15:01] LABS: CARBON DIOXIDE 44.1 mmol/L (21.0-32.0)
[2016-11-25 16:29] LABS: APPEARANCE CLOUDY (CLEAR); BILIRUBIN NEGATIVE (NEGATIVE); COLOR DK YELLOW (YELLOW); GLUCOSE NEGATIVE (NEGATIVE); KETONE NEGATIVE (NEGATIVE); LEUKOCYTE ESTERASE TRACE (NEGATIVE); NITRITE NEGATIVE (NEGATIVE); PROTEIN 3+ mg/dL (NEGATIVE); SPECIFIC GRAVITY 1.025 (1.005-1.020)
--- NOTE | 2016-11-25 16:35 | NUR ---
ATTEMPTED TO CONTACT FAMILY AT ALL NUMBERS LISTED. NO WORKING OR CORRECT NUMBERS PROVIDED.
[2016-11-25 16:38] LABS: BACTERIA MODERATE /hpf (NONE SEEN); EPITHELIAL CELLS 0-5 /hpf (0-5); RED CELLS - URINE 0-5 /hpf (0-5); WHITE CELLS - URINE 0-5 /hpf (0-5)
[2016-11-25 16:39] LABS: AMORPHOUS SEDIMENT >1+ /lpf (NONE SEEN); HYALINE CAST 0-5 /lpf (NONE SEEN); MUCUS <1+ /lpf (NONE SEEN)
--- NOTE | 2016-11-25 18:53 | NUR ---
1610 RECEIVED FROM ER PER JUVENTINO. INTUBATED, ETT SECURE PLACED ON VENT AC 20 TV 600, 60%, PEEP 5 NOT BREATHING OVER THE VENT. SKIN WARM AND DRY. GRIMACES TO PAINFUL STIMULI. OG TO SUCTION DARK BROWN DRAINAGE WITH FOUL SMELL. HESS CATH PATENT AND DRAINING ISABELLE URINE. BILATERL LUNG SOUNDS EQUAL AND CONGESTED. ABD LARGE DISTENDED LOOKING AND FIRM. OS IV RIGHT BARROSO INFUSING WITH DIPRIVAN AT 20 MCG/KG/MIN PER PUMP. LEFT CHEST IV INFUSING WITH ABT ZOSYN. NS BAG HUNG AT 100 ML HOUR PER PUMP. CALLED ABOUT CENTRAL LINE. CENTRAL LINE PLACED WITHOUT DIFFICULTY MINIMAL BLOODLOSS. CHEST X-RAY DONE STATES IN JUGLAR VEIN NEEDS TO BE REPOSITONED CALLED DR. Wagner STATES HE WILL REPOSITION IN am. MONITOR SR.
--- NOTE | 2016-11-25 19:00 | NUR ---
1899: Pt rec'd resting HOB 30 degrees with eyes closed. Pupils YANNICK+ bilat with light stimulus. Pt unresponsive to light, pain, and verbal stimulus. Pt breathing via ETT 7.5/23cm with RR20x with SPO2 98%. Lungs with crackles heard throughout with auscultation. MMP and no cyanosis noted. S1S2 regular SR80's on CM. Left TLSC intact with NS infusing 100 cc/hr. Pt has right jordan (RLE) IO catheter intact with Diprivan 15 mcg/kg/min. ABD soft NT BS hypoactive with OGT position confirmed with 30 cc air bolus and auscultation and ret'd to LIS with green/yellow liquid return. Bryson to gravity with >30 cc/hr yellow UOP. SR up x2, All monitors on and alarms intact.
--- NOTE | 2016-11-25 20:30 | NUR ---
2030: Pt's son was here and discussed pt condition, ICU, and current treatments. Pt son verbalized understanding. He states that the patient has been here at [facility] recently.
--- NOTE | 2016-11-25 22:00 | NUR ---
2200: Pt family called and update provided. No password at this time and discussed with family who will set up password in AM.
[2016-11-26] VITALS (30 sets, daily range): BP systolic 122–164; BP diastolic 54–82
--- NOTE | 2016-11-26 02:00 | NUR ---
0200: Complete bed bath and linen change completed. Bryson, SCD, and Oral care completed at this time. Pt arouses with stimulation and opens eyes. Pt nods head to questions and pt updated to time and place. Pt nods head yes and appears to understand teaching. No change in IVF/UOP at this time.
--- NOTE | 2016-11-26 03:00 | NUR ---
0300: Pt in bed with eyes open. Pt with frequent movement; pt remains in bilateral soft wrist restraints to prevent accidental extubation or removal of medically neccassary lines/tubes. Pt nods head to questions and is uncomfortable. Pt RR increased at this time 24-26x. Continue to titrate Diprivan as per orders.
--- NOTE | 2016-11-26 04:00 | NUR ---
0400: Pt with more frequent thrashing in bed. Continue to titrate Diprivan as per orders. Pt FIO2 changed to 40% per RT after ABG results reviewed. Pt SPO2 decreased to 88% and FIO2 titrated back to 50% at this time to keep SPO2 >92%.
[2016-11-26 05:28] LABS: BASOPHILS 0 % (0-2); EOSINOPHILS 0 % (0-7); HEMOGLOBIN 11.8 g/dL (12-16); IMMATURE GRANULOCYTES 0.6 % (0-5); LYMPHOCYTES 6.2 % (15-50); MCH 28.4 pg (26.0-34.0); MCHC 31.1 g/dL (31.0-37.0); MCV 91.6 fL (80.0-100.0); MEAN PLATELET VOLUME 9.2 fL (7.4-10.4); MONOCYTES 2.7 % (2-11); NEUTROPHILS 90.5 % (40-80); PLATELET COUNT 265 10x3/uL (130-400); RBC 4.15 10x6/uL (4.00-5.40); RDW 14.7 % (11.5-14.5)
[2016-11-26 05:47] LABS: ALBUMIN 2.7 g/dL (3.4-5.0); BILIRUBIN - TOTAL 0.61 mg/dL (0.2-1.3); CALCIUM 8.8 mg/dL (8.5-10.1); CARBON DIOXIDE 38.2 mmol/L (21.0-32.0); CREATININE - SERUM 1.1 mg/dL (0.6-1.3); MAGNESIUM - SERUM 1.4 mg/dL (1.8-2.4); PROTEIN - SERUM 7.1 g/dL (6.4-8.2)
[2016-11-26 05:48] LABS: ANION GAP 7.5 mmol/L (8-16); PHOSPHOROUS 1.2 mg/dL (2.5-4.9); POTASSIUM - SERUM 2.7 mmol/L (3.5-5.1)
--- NOTE | 2016-11-26 10:41 | NUR ---
PHONE NUMBERS PROVIDED DEXTER [phone] SIM WORK [phone] CELL [phone] DOMI [phone] MRS. WILSON [phone]
--- NOTE | 2016-11-26 14:13 | NUR ---
ON ARRIVAL PATIENT OPENS EYES TO PAINFUL STIMULI SKIN WARM AND DRY, ETT SECURE TO VENT. BILATERAL LUNG SOUNDS EQUAL CLEAR, DIMINISHED IN LOWER LOBES. ABD LARGE DISTENDED. VERY HYPOACTIVE BOWEL SOUNDS. RIGHT SUBCLAVIAN CENTRAL LINE REPLACE IN RADIOLOGY UNDER FLUROSCOPY FROM 11 AM TO 12 NOON PATIENT TOLERATED WELL NOW HAS LEFT JUGLAR CENTRAL LINE TRIPLE LUMEN. DAUGHTER AND SON IN HERE BEFORE LINE PLACED, CONSENTS SIGNED AND PHONE NUMBERS OBTAINED. DISCUSS TRACH AND PORT WITH THEM. DAUGHTER STATES THAT PATIENT HAD A PORT AT ONE TIME AND IT BECAME INFECTED AND HAD TO BE REMOVED. SCAR ON RIGHT CHEST. DAUGHTER AND SON IN LAW VERBALIZED UNDERSTANDING FOR NEED FOR TRACH AND PORT DUE TO FREQ HOSPITALZATION WITH VENTILATOR AND BIPAP SUPPORT NEEDED FREQ. PATIENT HAS HAD 7 HOSPITALIZATIONS THIS YEAR. DAUGHTER STATES THAT IS GOING TO RETURN HER TO THE [facility]. DIPRIVAN WEANED TO 25 MCG/KG/MIN. PATIENT WILL WAKE UP AND NODE HEAD APPROPIATELY TO QUESTIONS. GRIMACE WITH SUCTIONING. VENOUS DOPPLER STUDY DONE ON LOWER LEGS. VSOCZ3R SR. HESS PATENT AND DRAINING CLEAR ISABELLE URINE GOOD RESPONSE TO LASIX. IO REMOVED FROM RIGHT LOWER LEG WITHOUT DIFFICULTY.
--- NOTE | 2016-11-26 15:28 | NUR ---
RADIOLOGIST CALLED STATES PATEINT DOES HAVE A CLOT IN HER DISTAL RIGHT POPITEAL. DR. LAMB CALLED AND NOTIFIED. ORDER RECEIVED TO START LOVENOX 1MG/KG BID AND TO CONSULT PHARMACY FOR DOSAGE. PATIENT WEIGHT 336 PER BED SCALES. EQUAL TO 152 kg. ORDERED DOSAGE IS 150 MG OF LOVENOX Q 12 HOURS. TALKED WITH DENNIS IN PHARMACY.
--- NOTE | 2016-11-26 18:39 | NUR ---
TO CT SCAN FOR CTA AND CT OF ABD AND PELVIS. PATIENT TOLERATED WELL. PORTABLE VENT USED FOR TRANSPORT AND DURING THE SCAN. DIPRIVAN AT 35 MCG/KG/MIN. POTASSIUM 2.6. 20 MEQ IV INFUSING FIRST OF 3 PER ELECTROLYTE PROTOCAL. MONITOR SR. TRIPLE LUMEN LEFT JUGLAR INFUSING WITH NS AT 125 ML HOUR. HESS PATENT. VENT SETTINGS TV 600 AC 20 PEEP 5 OXYGEN AT 50%. NO EDEMA IN EXTREMITIES.
--- NOTE | 2016-11-26 19:30 | NUR ---
REC'D TO CARE, FINANCIAL COST ANALYST PER FLOWSHEET. PT ON MECH VENT VIA OETT - SEDATED WITH PROPOFOL GTT - WILL TITRATE PER MD ORDERS. NO SIGN OF DISTRESS. OGT TO LIWS, ISABELLE DRAINAGE NOTED. HESS CATH PATENT. PT IS OBESE. WILL CONT Q2H TURNING AND ORAL CARE. HEELS BRIDGED. ALARMS ON. B/L SOFT WRIST RESTRAINTS ON PER MD ORDER.
--- NOTE | 2016-11-26 21:19 | NUR ---
NO VISITORS. DAUGHTER UPDATED OVER PHONE WITH P[employer].
--- NOTE | 2016-11-26 21:39 | CN ---
PATIENT NAME:DOUGLAS HILLS MEDICAL RECORD: [id number] : 63 LOCATION:[facility] ADMIT DATE: 11/25/16 ACCOUNT: [id number] CONSULTING PHYSICIAN: KOREY ACKERMAN MD REFERRING PHYSICIAN: BRANDON CORRALES MD DATE OF CONSULTATION: 11/25/2016 Surgical Consultation SURGEON: Korey Ackerman MD. REASON FOR CONSULTATION: Vent-dependent respiratory failure, peripheral IV access insufficiency, multi-drug therapy. HISTORY OF PRESENT ILLNESS: A 51-year-old woman well known to the hospital. She has been admitted numerous times over the last year. She has a significant history of COPD, congestive heart failure, severe morbid obesity, and obesity hypoventilation syndrome. She has been admitted on these numerous occasions at all times for respiratory failure requiring mechanical ventilation. The patient was recently discharged. She was noted to be in respiratory distress at the halfway yesterday and she was sent back to the Emergency Room by EMS, at which time she was intubated and sedated. An interosseous line was placed in to the right lower extremity. All history is obtained through chart review in discussion with the nurse. Apparent by report, she was noncompliant at the nursing room with her BiPAP machine. The patient has only an interosseous line on the right lower extremity. REVIEW OF SYSTEMS: A 10-point review of systems was unobtainable as the patient is currently on propofol and on mechanical ventilation. PAST MEDICAL HISTORY: 1. Chronic hypoxic hypercapnic respiratory failure. 2. COPD. 3. Congestive heart failure. 4. Severe morbid obesity. 5. Diabetes. 6. Osteoarthritis. 7. Obstructive sleep apnea. ALLERGIES: LYRICA, TRAMADOL. MEDICATIONS: Please see electronic medical record for full list of medications. SOCIAL HISTORY: She is a nondrinker, nonsmoker. PAST SURGICAL HISTORY: Cholecystectomy, hysterectomy, 2 C-sections. FAMILY HISTORY: Lung disease in her sibling. PHYSICAL EXAMINATION: VITAL SIGNS: Temperature 97.9, heart rate 76, respirations 20, blood pressure 114/82, satting 96% on 100% FiO2 on mechanical ventilation. GENERAL: Morbidly obese female, in severe distress. EYES: Pupils are equally round and reactive. EAR, NOSE AND THROAT: ET tube in place. Mucous membranes dry. CONSULT REPORT [id number] HILLS,DOUGLAS J NECK: No thyromegaly. CARDIOVASCULAR: Normal sinus rhythm. LUNGS: Decreased breath sounds bilaterally. ABDOMEN: Soft, nontender, and nondistended. SKIN: Cool and dry. EXTREMITIES: She has got 2+ lower extremity edema. NEUROLOGIC: She has a GCS of 30. She is sedated on propofol. LABORATORY DATA: Please see electronic medical record for full list of laboratory values, which were reviewed. IMPRESSION: A 51-year-old female with recurrent, severe, chronic hypoxic hypercapnic respiratory failure, severe morbid obesity, diabetes, congestive heart failure, peripheral IV access insufficiency. The patient has been admitted to the ICU for recurrent respiratory failure. She requires IV access for multi-drug therapy, vent management and blood monitoring. PLAN: No family was able to be reached for consent. At this time, I decided to place an emergent line. A left subclavian catheter was placed. Post-procedure chest x-ray. Pulmonary has been consulted. Continue mechanical ventilation, broad-spectrum IV antibiotics. TRANSINT:[id number] Voice Confirmation ID: [id number] DOCUMENT ID: [id number] KOREY ACKERMAN MD at 2139 CC: [id number] DICTATION DATE: 11/26/16 0832 DIGITAL DESIGN ENGINEER: 11/26/16 1734 ADM IN [id number] [place] [address]
--- NOTE | 2016-11-26 21:39 | OP ---
PATIENT NAME: DOUGLAS HILLS MEDICAL RECORD: [id number] :63 LOCATION:D[facility] D.2309 ADMISSION DATE:11/25/16 SURGEON: KOREY ACKERMAN MD DATE OF OPERATION: 11/25/2016 SURGEON: Korey Ackerman MD. PREOPERATIVE DIAGNOSES: Respiratory failure, vent management and IV access insufficiency. PREOPERATIVE DIAGNOSES: Respiratory failure, vent management and IV access insufficiency. PROCEDURE PERFORMED: Left subclavian central venous catheter. ANESTHESIA: Local. COMPLICATIONS: None. SPECIMENS: None. Case is clean PROCEDURE IN DETAIL: After emergent consent was obtained, the left chest and neck were prepped and draped in typical sterile fashion. Local anesthetic was injected. The left subclavian vein was cannulated on the first pass. A wire was placed. Skin incision was made with an 11-blade scalpel. The dilator was passed over the guidewire in standard Seldinger fashion. The catheter was then passed over the wire in a standard Seldinger fashion. The wire was removed and the catheter was secured to the skin with a Biopatch and interrupted 2-0 silk suture. A sterile Tegaderm dressing was placed. All 3 ports were aspirated and flushed. Immediate postoperative chest x-ray was performed. TRANSINT:[id number] Voice Confirmation ID: [id number] DOCUMENT ID: [id number] KOREY ACKERMAN MD at 2139 CC: [id number] DICTATION DATE: 11/26/16 0832 MIXING MACHINE TENDER CORK ROD: 11/26/16 1908 ADM IN [id number] [place] [address]
--- NOTE | 2016-11-26 23:15 | NUR ---
REASSESSMENT PER FLOWSHEET. NEURO CHECK WITH PROPOFOL ON HOLD - PT REENA TO COMMAND, RESUMED GTT AT 30MCG/KG/MIN. WILL CONT CLOSE MONITORING.
[2016-11-27] VITALS (24 sets, daily range): BP systolic 115–158; BP diastolic 58–75; BMI 65.4
--- NOTE | 2016-11-27 01:00 | NUR ---
ROM DONE, ORAL CARE DONE. PT COOPERATIVE, BACK TO REST EASILY.
--- NOTE | 2016-11-27 03:12 | NUR ---
REASSESSMENT PER FLOWSHEET, NO ACUTE CHANGES. ABGS RESULTED. INITIATED KCL RIDERS PER ELECTROLYTE PROTOCOL FOR K+ 3.0. VSS. NO SIGN OF DISTRESS.
--- NOTE | 2016-11-27 04:30 | NUR ---
STERILE DSG CHANGE TO CVL, NO REDNESS OR SWELLING AT SITE. TUBINGS CHANGED PER PROTOCOL AND SWAB CAPS IN USE.
--- NOTE | 2016-11-27 04:39 | NUR ---
COMPLETE BATH AND LINEN CHANGE DONE. SKIN FOLDS DRIED - NYSTATIN POWDER TO AXILA AND FOLDS.
[2016-11-27 04:41] LABS: BASOPHILS 0 % (0-2); EOSINOPHILS 0 % (0-7); HEMATOCRIT 36.4 % (36.0-48.0); HEMOGLOBIN 11.5 g/dL (12-16); IMMATURE GRANULOCYTES 0.4 % (0-5); LYMPHOCYTES 4.5 % (15-50); MCH 28.8 pg (26.0-34.0); MCHC 31.6 g/dL (31.0-37.0); MEAN PLATELET VOLUME 9.3 fL (7.4-10.4); MONOCYTES 8.2 % (2-11); NEUTROPHILS 86.9 % (40-80); PLATELET COUNT 293 10x3/uL (130-400); RDW 15.3 % (11.5-14.5); WBC 11.3 10x3/uL (4.8-10.8)
[2016-11-27 04:55] LABS: ALBUMIN 2.5 g/dL (3.4-5.0); BILIRUBIN - TOTAL 0.43 mg/dL (0.2-1.3); CALCIUM 8.3 mg/dL (8.5-10.1); CARBON DIOXIDE 36.1 mmol/L (21.0-32.0); CREATININE - SERUM 1.1 mg/dL (0.6-1.3); PROTEIN - SERUM 6.8 g/dL (6.4-8.2)
[2016-11-27 04:59] LABS: MAGNESIUM - SERUM 1.9 mg/dL (1.8-2.4); PHOSPHOROUS 3.2 mg/dL (2.5-4.9); POTASSIUM - SERUM 3.1 mmol/L (3.5-5.1)
--- NOTE | 2016-11-27 07:30 | NUR ---
ASSESSMENT COMPLETE. AROUSES TO VOICE, FOLLOWS COMMANDS. APPEARS COMFORTABLE. S1S2 NOTED, RADIAL AND PEDAL PULSES PALP. GENERALIZED SWELLING. NSR. CRACKLES IN RUL, RML, ANA. DIMINISHED LOWER LOBES BILAT. ON VENT, SEE FLOWSHEET FOR VENT SETTINGS. SEDATED. HYPOACTIVE BOWEL SOUNDS X4, OGT TO LIS WITH ORANGE BILE SUCTIONED. INLINE AND ORALLY SUCTIONED. GENERALIZED WEAKNESS. LT IJ CVL, SEE IV FLOWSHEET. RESTRAINED. FOR OTHER FINDINGS SEE FLOWSHEET.
--- NOTE | 2016-11-27 09:10 | NUR ---
NO VISITORS AT THIS TIME. PT CALM, FOLLOWS COMMANDS, ON VENT
--- NOTE | 2016-11-27 10:28 | NUR ---
DR. ANGELES AT BEDSIDE. NEW ORDERS RECEIVED
--- NOTE | 2016-11-27 11:15 | NUR ---
REASSESSMENT COMPLETE, SEE FLOWSHEET FOR DETAILS
[2016-11-27 11:18] LABS: UDS - AMPHET NEGATIVE QUAL (NEGATIVE); UDS - BARB NEGATIVE QUAL (NEGATIVE); UDS - BENZO NEGATIVE QUAL (NEGATIVE); UDS - COCAINE NEGATIVE QUAL (NEGATIVE); UDS - METH NEGATIVE QUAL (NEGATIVE); UDS - OPIATE NEGATIVE QUAL (NEGATIVE); UDS - PCP NEGATIVE QUAL (NEGATIVE); UDS - THC NEGATIVE QUAL (NEGATIVE)
--- NOTE | 2016-11-27 13:32 | NUR ---
PT CALM, COOPERATIVE, LIGHTLY SEDATED ON VENT.
--- NOTE | 2016-11-27 15:15 | NUR ---
REASSESSMENT COMPLETE, SEE FLOWSHEET.
--- NOTE | 2016-11-27 17:34 | NUR ---
PATIENT CALM, COOPERATIVE. LIGHTLY SEDATED ON VENT. DENIES NEEDS.
--- NOTE | 2016-11-27 21:32 | NUR ---
NO VISITORS AT THIS TIME. VSS. NO SIGN OF DISTRESS.
--- NOTE | 2016-11-27 22:49 | NUR ---
REASSESSMENT PER FLOWSHEET, NO ACUTE CHANGES.
[2016-11-28] VITALS (25 sets, daily range): BP systolic 97–164; BP diastolic 63–79; Ht 152.4 cm; Wt 143.0 kg
--- NOTE | 2016-11-28 | NUR ---
NEW ORDERS REC'D. IVF TO 30ML/HR. K+ LEVEL PENDING.
--- NOTE | 2016-11-28 01:01 | NUR ---
REPOSITIONED UP IN BED TO R SIDE, ORAL CARE DONE. ROM DONE AND EXTR ELEVATED ON PILLOWS.
--- NOTE | 2016-11-28 03:02 | NUR ---
REASSESSMENT PER FLOWSHEET, NO ACUTE CHANGES. VSS. NO SIGN OF DISTRESS. KCL RIDER INFUSING.
--- NOTE | 2016-11-28 04:21 | NUR ---
ADMISSION ASSESSMENT COMPLETED PER CURRENT PT STATUS.
[2016-11-28 05:20] LABS: BASOPHILS 0 % (0-2); EOSINOPHILS 0 % (0-7); HEMATOCRIT 37.7 % (36.0-48.0); HEMOGLOBIN 11.6 g/dL (12-16); IMMATURE GRANULOCYTES 0.4 % (0-5); LYMPHOCYTES 6.2 % (15-50); MCH 28.5 pg (26.0-34.0); MCHC 30.8 g/dL (31.0-37.0); MCV 92.6 fL (80.0-100.0); MEAN PLATELET VOLUME 8.7 fL (7.4-10.4); MONOCYTES 6.8 % (2-11); NEUTROPHILS 86.6 % (40-80); PLATELET COUNT 269 10x3/uL (130-400); RBC 4.07 10x6/uL (4.00-5.40); RDW 15.6 % (11.5-14.5); WBC 10.7 10x3/uL (4.8-10.8)
[2016-11-28 05:33] LABS: ALBUMIN 2.7 g/dL (3.4-5.0); BILIRUBIN - TOTAL 0.54 mg/dL (0.2-1.3); CALCIUM 8.7 mg/dL (8.5-10.1); CARBON DIOXIDE 34.5 mmol/L (21.0-32.0); CREATININE - SERUM 0.9 mg/dL (0.6-1.3); MAGNESIUM - SERUM 2.1 mg/dL (1.8-2.4); PHOSPHOROUS 3.9 mg/dL (2.5-4.9); PROTEIN - SERUM 6.9 g/dL (6.4-8.2)
[2016-11-28 05:40] LABS: ANION GAP 8.5 mmol/L (8-16)
--- NOTE | 2016-11-28 06:00 | NUR ---
NO FAMILY, VSS.
--- NOTE | 2016-11-28 07:00 | NUR ---
REC'D REPORT AND RESUMED CARE, ETT TO VENTILATION AND SECURED, ORAL CARE AND SUCTION COMPLETED, VSS, ASSESSMENT COMPLETE PER FLOWSHEET,
--- NOTE | 2016-11-28 09:00 | NUR ---
AM MEDS GIVEN, NO VISITORS AT THIS TIME
--- NOTE | 2016-11-28 11:00 | NUR ---
ASSESSMENT COMPLETE, NO ACUTE CHANGE FROM PREVIOUS
--- NOTE | 2016-11-28 12:35 | NUR ---
NUTRITION MONITORING & EVAL CHART REVIEWED. ORDER RECEIVED TO START TUBE FEEDS. WILL BEGIN PULMOCARE @ 15 CC/HR. RD FOLLOWING
--- NOTE | 2016-11-28 15:00 | NUR ---
ASSESSMENT COMPLETE, SEE FLOWSHEET, VSS, NO VISITORS AT THIS TIME
--- NOTE | 2016-11-28 15:06 | NUR ---
PATIENT IS ON THE VENT AND UNABLE TO ANSWER QUESTIONS AT THIS TIME. I HAVE NOT SEEN ANY FAMILY HERE TO INTERVIEW. CM TO FOLLOW.
--- NOTE | 2016-11-28 15:30 | NUR ---
[facility], TOLERATED MOVE WITHOUT DIFFICULTY, ROOM CHANGED TO 2307 BED UNABLE TO FIT THROUGH DOOR OF 2309
--- NOTE | 2016-11-28 18:00 | NUR ---
INCONTINENT OF STOOL, SMALL FORMED, AND BROWN, SKINCARE AND LINEN CHANGE COMPLETED
--- NOTE | 2016-11-28 19:15 | NUR ---
EVENT REPRESENTATIVE PER FLOWSHEET, PT SEDATED ON VENT. SPECIALTY BED IN USE. IVFS INFUSING TO L TLIJ, DSG C/D/I - SEE FLOWSHEET. PT OBESE, EXTR ELEVATED ON PILLOWS. PT WILL AROUSE TO VOICE AND FOLLOW SIMPLE COMMANDS - WILL TITRATE DIPRIVAN GTT PER MD ORDER. HESS CATH PATENT. B/L SOFT WRIST RESTRAINTS ON PER MD ORDER. ALARMS ON. PT CLOSE TO NURSE DESK.
--- NOTE | 2016-11-28 21:19 | NUR ---
NO VISITORS, ORAL CARE DONE. PT ABLE TO COMMUNICATE NEEDS. VSS. TF STARTED PER MD ORDERS.
--- NOTE | 2016-11-28 23:20 | NUR ---
REASSESSMENT PER FLOWSHEET, NO ACUTE CHANGES. ABLE TO CONVEY NEEDS. BACK TO REST EASILY, VSS.
[2016-11-29] VITALS (23 sets, daily range): BP systolic 106–158; BP diastolic 55–87
--- NOTE | 2016-11-29 03:25 | NUR ---
KUB AND PCXR DONE. REASSESSMENT PER FLOWSHEET. NO ACUTE CHANGES. PT ASSISTS WITH TURNING. VSS.
--- NOTE | 2016-11-29 05:00 | NUR ---
PT HAD LARGE BM. COMPLETE BATH, SOHAIL-CARE, GOWN AND LINEN CHANGE DONE.
[2016-11-29 05:09] LABS: BASOPHILS 0 % (0-2); EOSINOPHILS 0 % (0-7); HEMATOCRIT 41.6 % (36.0-48.0); IMMATURE GRANULOCYTES 0.3 % (0-5); LYMPHOCYTES 7.9 % (15-50); MCHC 31.3 g/dL (31.0-37.0); MCV 92.7 fL (80.0-100.0); MONOCYTES 7.8 % (2-11); PLATELET COUNT 283 10x3/uL (130-400); RBC 4.49 10x6/uL (4.00-5.40); RDW 15.6 % (11.5-14.5); WBC 13.3 10x3/uL (4.8-10.8)
--- NOTE | 2016-11-29 05:23 | NUR ---
STERILE DSG CHANGE TO CVL. NO REDNESS OR SWELLING AT SITE.
[2016-11-29 05:32] LABS: ALBUMIN 3.2 g/dL (3.4-5.0); ANION GAP 10.5 mmol/L (8-16); BILIRUBIN - TOTAL 0.72 mg/dL (0.2-1.3); CALCIUM 9.4 mg/dL (8.5-10.1); CARBON DIOXIDE 36.7 mmol/L (21.0-32.0); MAGNESIUM - SERUM 2.1 mg/dL (1.8-2.4); PHOSPHOROUS 4.7 mg/dL (2.5-4.9); POTASSIUM - SERUM 3.2 mmol/L (3.5-5.1); PROTEIN - SERUM 7.7 g/dL (6.4-8.2)
--- NOTE | 2016-11-29 07:18 | NUR ---
SWITCHED PT TO CPAP 06/26 40% AT 0710
--- NOTE | 2016-11-29 10:21 | NUR ---
EXTUBATED TO 4L NC, ORAL CARE AND SUCTION COMPLETED, FOLLOWING COMMANDS, YANKER AND CALL LIGHT IN REACH, NO OTHER NEEDS AT THIS TIME
--- NOTE | 2016-11-29 10:39 | NUR ---
CALL LIGHT ON, BED STORYE PLACED PER REQUEST, LARGE FORMED BM TO STOREY, SKINCARE AND PARTIAL LINEN CHANGE COMPLETED
--- NOTE | 2016-11-29 11:00 | NUR ---
POST EXTUBATION, 4L NC SAT 98%, AAO, CONTINUES TO HAVE COPIUS SECRETIONS, AND FREQUENT COUGHING, SUCTION YANKER AT BEDSIDE, CALL LIGHT IN REACH, NO OTHER ACUTE CHANGE FROM PREVIOUS ASSESSMENT
--- NOTE | 2016-11-29 12:41 | NUR ---
LARGE STTOL TO BEDPAN, SKINCARE AND LINEN CHANGE COMPLETED
--- NOTE | 2016-11-29 13:40 | NUR ---
DISCONNECTED FROM ICU MONITORS, VSS, AAO, DENIES PAIN, HESS EMPTIED 2100 CC'S, LEFT IJ SL, PREOP IV REGLAN AND PEPCID GIVEN PER ORDER, TO SURGERY VIA BED WITH PERSONNEL X4
--- NOTE | 2016-11-29 15:14 | NUR ---
BACK TO ROOM FROM SURGERY, AAO, VSS, DENIES PAIN, LEFT UPPER CHEST WITH IMPLANTED PORT, DRESSING CDI, PER DR NEHEMIAS LINDSAY FOR USE, LEFT IJ REMOVED, INCISION SITE CLESN AND DRY , NO BLEEDING NOTED, BED LINENS CHANGED, MINIMAL ASSIST WITH REPOSITIONING, WILL CONTINUE WITH POC
--- NOTE | 2016-11-29 16:42 | NUR ---
ICE CHIPS TO BEDSIDE
--- NOTE | 2016-11-29 17:50 | NUR ---
MEDICATION RECONCILED IN [facility]
--- NOTE | 2016-11-29 18:10 | NUR ---
INCONTINENT OF DIARRHEA STOOL, SKINCARE AND LINEN CHANGE COMPLETED
--- NOTE | 2016-11-29 20:02 | NUR ---
REPORT RECIEVED. ASSESSMENT COMPLETEPER FLOW SHEET. VSS. DENIES PAIN OR NEEDS. WILL CONTINUE TO MONITOR.
--- NOTE | 2016-11-29 21:30 | NUR ---
ASSISTED ON TO BEDPAN. LARGE LIQUID BM NOTED. VSS. WILL CONTINUE TO MONITOR.
--- NOTE | 2016-11-29 23:07 | NUR ---
PLACED ON BIPAP PER REQUEST. NO NEW CHANGES. VSS. PT RESTING COMFORTABLY WILL CONTINUE TO MONITOR.
[2016-11-30] VITALS (12 sets, daily range): BP systolic 96–142; BP diastolic 50–98
--- NOTE | 2016-11-30 03:13 | NUR ---
PT SLEEPING COMFORTABLY. VSS. NO NEW CHANGES. WILL CONTINUE TO MONITOR.
[2016-11-30 04:04] LABS: BASOPHILS 0.1 % (0-2); EOSINOPHILS 0.1 % (0-7); HEMATOCRIT 45.6 % (36.0-48.0); HEMOGLOBIN 14.1 g/dL (12-16); IMMATURE GRANULOCYTES 0.4 % (0-5); LYMPHOCYTES 6.1 % (15-50); MCH 28.8 pg (26.0-34.0); MCHC 30.9 g/dL (31.0-37.0); MCV 93.3 fL (80.0-100.0); MEAN PLATELET VOLUME 8.9 fL (7.4-10.4); MONOCYTES 5.7 % (2-11); NEUTROPHILS 87.6 % (40-80); PLATELET COUNT 275 10x3/uL (130-400); RBC 4.89 10x6/uL (4.00-5.40); RDW 15.2 % (11.5-14.5)
[2016-11-30 04:34] LABS: ALBUMIN 3.4 g/dL (3.4-5.0); ANION GAP 8.8 mmol/L (8-16); BILIRUBIN - TOTAL 0.71 mg/dL (0.2-1.3); CALCIUM 9.6 mg/dL (8.5-10.1); CARBON DIOXIDE 38.5 mmol/L (21.0-32.0); MAGNESIUM - SERUM 2.1 mg/dL (1.8-2.4); POTASSIUM - SERUM 3.3 mmol/L (3.5-5.1); PROTEIN - SERUM 8.1 g/dL (6.4-8.2)
--- NOTE | 2016-11-30 06:08 | NUR ---
40MEQ K GIVEN PER F/E PROTOCOL. NO FURTHER INTERVENTION NEEDED AT THIS TIME. WILL CONTINUE TO MONITOR.
--- NOTE | 2016-11-30 07:15 | NUR ---
REC'D REPORT AND RESUMED CARE, AAO, HAVING SOME NAUSEA, VSS, DENIES PAIN, ASSESSMENT COMPLETE PER FLOWSHEET, SELF REPOSITIONS, ON LEFT SIDE, COOL COMPRESS TO BACK OF NECK NO EMESIS AT THIS TIME
--- NOTE | 2016-11-30 08:13 | NUR ---
PATIENT VOMITING. DR VILLALOBOS PAGED TO SEE IF WE CAN GIVE ZOFRAN.
--- NOTE | 2016-11-30 08:20 | OP ---
PATIENT NAME: DOUGLAS HILLS MEDICAL RECORD: [id number] :63 LOCATION:D[facility] D.[id number] ADMISSION DATE:11/25/16 SURGEON: KOREY ACKEMRAN MD DATE OF OPERATION: 11/29/2016 SURGEON: Korey Ackerman MD. PREOPERATIVE DIAGNOSES: 1. Chronic respiratory failure. 2. Chronic obstructive pulmonary disease. 3. Emphysema. 4. Peripheral IV access insufficiency. POSTOPERATIVE DIAGNOSES: 1. Chronic respiratory failure. 2. Chronic obstructive pulmonary disease. 3. Emphysema. 4. Peripheral IV access insufficiency. PROCEDURES PERFORMED: 1. Insertion of tunneled left internal jugular port. 2. Immediate interpretation of fluoroscopy. ANESTHESIA: Local. COMPLICATIONS: None. SPECIMENS: None. Case was clean. ESTIMATED BLOOD LOSS: 5 cc. OPERATIVE COURSE: After consent was obtained, the patient was taken to the operating room. Total intravenous anesthesia was given. The left chest and neck were prepped and draped in typical sterile fashion. A 40 cc of local anesthetic were used. The skin incision was made with a 15-blade scalpel in the left chest wall. Dissection continued to the level of the pectoralis fascia using electrocautery. A pocket was created with combination of blunt dissection and electrocautery. A Glidewire was placed to the previous left IJ catheter. The wire was advanced to the atriocaval junction with fluoroscopy. Once the wire was in the atriocaval junction, the catheter was removed. The tunneling device was then used to tunnel the catheter from the skin incision site to the needle stick site. The dilator and breakaway sheath were passed over the wire under fluoroscopy to the atriocaval junction. The dilator and wire were removed. The catheter lumen was passed to the breakaway sheath and advanced to the atriocaval junction under fluoroscopy. The breakaway sheath was removed. The catheter was then secured to the pectoralis fascia using interrupted 2-0 Prolene suture. The port was accessed. Port was aspirated and was then flushed with 30 cc of normal saline and 5000 units of heparin. The subcutaneous tissue was closed with 3-0 Vicryl suture. The skin was closed with 4-0 Stratafix, Mastisol and Steri-Strips. The port was accessed. Both skin aspirated and was flushed. Telfa and Tegaderm were used to cover the incision as well as the needle. At the end of the procedure, all needle and instrument counts were correct. No complications occurred. The patient tolerated the procedure well. OPERATIVE REPORT [id number] DOUGLAS HILLS At the end of the case, she was transferred to the ICU in stable condition. TRANSINT:[id number] Voice Confirmation ID: [id number] DOCUMENT ID: [id number] KOREY ACKERMAN MD at 0820 CC: [id number] DICTATION DATE: 11/29/16 1532 STEEL BUFFER: 11/30/16 0024 ADM IN [place] [id number] [place] [id number]
--- NOTE | 2016-11-30 08:45 | NUR ---
NAUSEA WITH EMESIS, PER DR VILLALOBOS, ZOFRAN 4MG IV Q 4 PRN ORDERED AND GIVEN
--- NOTE | 2016-11-30 09:00 | NUR ---
AM IV MEDS GIVEN, HELD ELIQUIS FOR NAUSEA AND EMESIS
--- NOTE | 2016-11-30 11:00 | NUR ---
INCONTINENT OF DIARRHEA STOOL, SKINCARE AND LINEN CHANGE COMPLETED
--- NOTE | 2016-11-30 12:10 | NUR ---
FAMILY AT BEDSIDE, STATUS UPDATED, VOICES NO NEEDS AT THIS TIME
--- NOTE | 2016-11-30 13:00 | NUR ---
REPORT RECD PT CARE TRANSFERRED. PT RESTING IN BED VSS WILL MONITOR.
--- NOTE | 2016-11-30 13:00 | NUR ---
REPORT RECD, PT CARE TRANSFERRED. PT RESTING COMFORTABLY IN BED AT THIS TIME. VSS
--- NOTE | 2016-11-30 13:16 | NUR ---
INCONTINENT OF DIARRHEA STOOL, SKINCARE AND COMPLETE LINEN CHANGE, INFUSAPORT DRESSING CHANGE COMPLETED PER PROTOCAL
--- NOTE | 2016-11-30 19:00 | NUR ---
BEDSIDE REPORT RECEIVED AND CARE OF PT ASSUMED. PT LYING IN SEMIL CAZARES'S POSITION WATCHING TV. RIGHT IP ACCESSED WITH NS INFUSING AT 30 ML / HR. HESS CATHETER DRAINING TO GRAVITY WITH YELLOW URINE IN COLLECTION BAG. BIPAP IN ROOM FOR HS USE. O2 IN USE AT THIS TIME AT 4L WITH UNLABORED BREATHING. SIDE RAILS UP X2 FOR SAFETY. CALL LIGHT WITHIN REACH.
--- NOTE | 2016-11-30 21:00 | NUR ---
HS MEDICATIONS GIVEN TO INCLUDE TYLENOL PER REQUEST FOR PAIN IN KNEE. WILL CONTINUE TO MONITOR FOR NEEDS. CALL LIGHT WITHIN REACH.
[2016-12-01] VITALS: BP 140/79
--- NOTE | 2016-12-01 00:15 | NUR ---
PT RESTING QUIETLY AT THIS TIME IN SUPINE POSITION WITH BIPAP IN PLACE. WILL CONTINUE TO MONITOR FOR NEEDS. CALL LIGHT WITHIN REACH.
[2016-12-01 04:00] VITALS: BP 113/56
[2016-12-01 05:33] LABS: BASOPHILS 0.1 % (0-2); EOSINOPHILS 0.2 % (0-7); HEMATOCRIT 44.4 % (36.0-48.0); IMMATURE GRANULOCYTES 0.4 % (0-5); LYMPHOCYTES 6.9 % (15-50); MCH 28.7 pg (26.0-34.0); MCHC 31.5 g/dL (31.0-37.0); MCV 91.2 fL (80.0-100.0); MEAN PLATELET VOLUME 9.2 fL (7.4-10.4); MONOCYTES 5.5 % (2-11); NEUTROPHILS 86.9 % (40-80); PLATELET COUNT 241 10x3/uL (130-400); RBC 4.87 10x6/uL (4.00-5.40); RDW 14.8 % (11.5-14.5); WBC 16.8 10x3/uL (4.8-10.8)
[2016-12-01 05:43] LABS: CALCIUM 9.1 mg/dL (8.5-10.1); CARBON DIOXIDE 37.5 mmol/L (21.0-32.0); CREATININE - SERUM 0.9 mg/dL (0.6-1.3); POTASSIUM - SERUM 3.5 mmol/L (3.5-5.1)
--- NOTE | 2016-12-01 06:22 | NUR ---
POTASSIUM LEVEL 3.5 THIS AM REQUIRING COVERAGE WITH 40 MEQ PO POTASSIUM PER ELECTROLYTE PROTOCAL. GAVE WITH ORANGE JUICE. WILL RE-CHECK IN 2 HOURS.
--- NOTE | 2016-12-01 06:24 | NUR ---
POTASSIUM LEVEL 3.5 PER AM LABS REQUIRING COVERAGE WITH 40 MEQ PO POTASSIUM PER ELECTROLYTE PROTOCAL. GAVE WITH ORANGE JUICE. WILL RE-CHECK LEVEL IN 4 HOURS.
--- NOTE | 2016-12-01 07:49 | NUR ---
AWAKE AND ALERT. ORIENTED X3. NO C/O AT THIS TIME. LUNGS HAVE CRACKLES THROUGHOUT, REPORTS OCCASSIONAL PRODUCTIVE COUGH. SKIN IS INTACT WITHOUT REDNESS. LEFT PORT PATENT WITHOUT REDNESS AT INSERTION SITE. HESS PATENT WITH CLEAR YELLOW URINE. DENIES NEEDS.
[2016-12-01 09:04] VITALS: BP 133/74
--- NOTE | 2016-12-01 10:24 | NUR ---
Patient Name: DOUGLAS HILLS Admission Status: ER Accout number: [id number] Admission Date: 11-25-2016 : 1965 Admission Diagnosis:SHORTNESS OF BREATH Attending: USAMA Current LOS: 6 Anticipated DC Date: 12-04-2016 Planned Disposition: Home Primary Insurance: [facility] Discharge Planning Comments: CM MET WITH PATIENT REGARDING D/C NEEDS AND PLANS. PATIENT STATED SHE LIVES WITH HER SON AT THIS TIME AND THERE ARE 3 STEPS TO ENTER HOME AND NO STAIRS INSIDE. PATIENT STATED SHE IS INDEPENDENT WITH HER CARE AND HAS A NEBULIZER, BIPAP, OXYGEN AT 4L CONTINUOUS AND A [facility]ABLE [facility]. PATIENT DOES NOT HAVE A PCP AT THIS TIME AND USES [facility] [address] FOR HER PHARMACY. PATIENT REFUSED HOME HEALTH AND HAD NO OTHER NEEDS FOR DISCHARGE. CM WILL CONTINUE TO FOLLOW PATIENT WITH D/C NEEDS AND PLANS. PCP NONE [facility] [address]- [phone] CHANG ALVAREZ (DAUGHTER) [phone] MONIE (SON) [phone] Signwriter: Marii Toussaint Is the patient Alert and Oriented? Yes 0 * How many steps to enter\exit or inside your home? 3 W/RAILS 0 * PCP NONE 0 * Pharmacy [facility] [address] 0 * Preadmission Environment Home with Family 0 * ADLs Independent 0 * Equipment Nebulizer Oxygen 0 * Other Equipment PORTABLE OXYGEN 0 * List name and contact numbers for known caregivers / representatives who currently or will assist patient after discharge: CHANG ALVAREZ (DAUGHTER) [phone] MONIE (SON) [phone] * Community resources currently utilized None 0 * Additional services required to return to the preadmission environment? Yes 0 * Can the patient safely return to the preadmission environment? Yes 0 * Has this patient been hospitalized within the prior 30 days at any hospital? No 0 Grand Total: 0
[2016-12-01 11:40] VITALS: BP 115/71
--- NOTE | 2016-12-01 12:29 | NUR ---
STOOL SPECIMEN COLLECTED FOR CDIFF. FSBS. 146. NO COVERAGE.
--- NOTE | 2016-12-01 13:01 | NUR ---
Nutrition Follow Up: Pt reported that she is tolerating the full liquid diet okay but stated she has had some N/V/D. Chart reviewed. Pt extubated 11/29/16. TF d/c. I<O. Wt stable. Labs reviewed - Glucose elevated. Meds noted including NS @ 30 ml/hr, Lantus, Lasix, Zofran, Humalog. Rec advancing diet as tolerated when medically feasible. RD will continue to monitor pt progress.
--- NOTE | 2016-12-01 13:25 | NUR ---
Rehab Note- Acute Rehab Prescreen order received. The patient has [facility] insurance and will require a PreAuth prior to acute rehab stay. Will begin the PreAuth process. Thank you for this referral! COSME Mcdonough rn Clinical Liaison, [facility] Rehab/[facility]
[2016-12-01 15:52] VITALS: BP 75/54
--- NOTE | 2016-12-01 17:30 | NUR ---
FSBS 152. GIVEN 8 UNITS HUMALOG SUBQ PER SS. SUPPER TRAY SERVED IN ROOM. VERY HAPPY TO HAVE REAL FOOD. NO C/O AT THIS TIME. NO CHANGES NOTED.
[2016-12-01 20:00] VITALS: BP 145/82
--- NOTE | 2016-12-01 20:00 | NUR ---
PATIENT RESTING IN BED AND DENIES NEEDS AT THIS TIME. BED IN LOWEST POSITION AND CALL LIGHT WITHIN REACH. ENCOURAGED THE PATIENT TO CALL IF SHE HAS FURTHER NEEDS.
[2016-12-02] VITALS: BP 129/82
[2016-12-02 04:00] VITALS: BP 129/67
[2016-12-02 07:32] VITALS: BP 110/67
--- NOTE | 2016-12-02 07:44 | NUR ---
AWAKE AND ALERT. ORIENTED X3. NO C/O THIS AM. LUNGS HAVE OCCASSIONAL WHEEZES NOTED. REPORTS PRODUCTIVE COUGH WITH CLEAR SPUTUM. SKIN IS INTACT WITHOUT REDNESS. LEFT PORT IS PATENT WITHOUT REDNESS AT INSERTION SITE. HESS PATENT WITH CLEAR YELLOW URINE. DENIES NEEDS.
--- NOTE | 2016-12-02 10:10 | NUR ---
UP TO BR WITH SBA. HAD LARGE SOFT SEMI FORMED STOOL. SPECIMEN SENT TO LAB FOR TESTS.
[2016-12-02 11:20] VITALS: BP 114/70
--- NOTE | 2016-12-02 12:00 | NUR ---
FSBS 320. GIVNE 20 UNITS HUMALOG SUBQ PER SS. LUNCH SERVED IN ROOM.
--- NOTE | 2016-12-02 14:30 | NUR ---
HESS D/C WITH TIP INTACT WITHOUT DIFFICULTY. SOHAIL CARE PER STAFF.
[2016-12-02 15:26] VITALS: BP 119/60
--- NOTE | 2016-12-02 18:12 | NUR ---
FSBS 206. GIVEN 12 UNITS HUMALOG SUBQ PER SS. ATE ALL OF SUPPER. NO C/O AT THIS TIME. DENIES NEEDS. NO CHANGES NOTED.
--- NOTE | 2016-12-02 19:31 | NUR ---
PATIENT RESTING IN BED WITH NO VISIBLE SIGNS OF DISTRESS AND DENIES NEEDS AT THIS TIME. BED IN LOWEST POSITION AND CALL LIGHT WITHIN REACH. ENCOURAGED PATIENT TO CALL IF SHE HAS NEEDS.
[2016-12-02 20:00] VITALS: BP 108/64
[2016-12-03] VITALS: BP 101/51
[2016-12-03 04:00] VITALS: BP 114/60
[2016-12-03 05:27] LABS: BASOPHILS 0.1 % (0-2); EOSINOPHILS 4.3 % (0-7); HEMATOCRIT 41.5 % (36.0-48.0); HEMOGLOBIN 12.9 g/dL (12-16); IMMATURE GRANULOCYTES 0.4 % (0-5); MCH 28.4 pg (26.0-34.0); MCHC 31.1 g/dL (31.0-37.0); MCV 91.4 fL (80.0-100.0); MEAN PLATELET VOLUME 9.2 fL (7.4-10.4); MONOCYTES 9.2 % (2-11); PLATELET COUNT 262 10x3/uL (130-400); RBC 4.54 10x6/uL (4.00-5.40); RDW 14.4 % (11.5-14.5); WBC 17.3 10x3/uL (4.8-10.8)
[2016-12-03 05:48] LABS: ANION GAP 8.4 mmol/L (8-16); CALCIUM 8.4 mg/dL (8.5-10.1); CARBON DIOXIDE 36.2 mmol/L (21.0-32.0); CREATININE - SERUM 0.9 mg/dL (0.6-1.3)
[2016-12-03 05:49] LABS: POTASSIUM - SERUM 2.6 mmol/L (3.5-5.1)
--- NOTE | 2016-12-03 06:22 | NUR ---
PATIENT'S K+ IS 2.6 THIS MORNING. CONTACTED [employer] UTILITY MECHANIC SUPERVISOR AND SHE SAID LONG THE PATIENT IS EP WE DO NOT NEED TO NOTIFY THE MD. I STARTED THE PATIENT ON PO POTASSIUM PER ORDERS.
--- NOTE | 2016-12-03 08:11 | NUR ---
AWAKE AND ALERT. ORIENTED X3. NO C/O AT THIS TIME. LUNGS ARE DIMINISHED THROUGHOUT LUNG CHAVEZ, OCCASSIONAL DRY COUGH NOTED. SKIN IS INTACT WITHOUT REDNESS. LEFT PORT PATENT WITHOUT REDNESS AT ISNERTION SITE. DENIES NEEDS. BREAKFAST SERVED IN ROOM.
[2016-12-03 09:06] VITALS: BP 142/57
--- NOTE | 2016-12-03 10:37 | NUR ---
AMBULATED 500 FEET WITH PT USING RW THIS AM. NO C/0. HAS BEEN UP TO BR PER SELF AND REPORTED URINATED WITHOUT DIFFICULTY AND HAD LARGE BM. SKIN CARE PER SELF.
[2016-12-03 11:48] VITALS: BP 126/57
--- NOTE | 2016-12-03 12:30 | NUR ---
FSBS 215. GIVEN 12 UNITS HUMALOG SUBQ PER SS. ATE ALL OF LUNCH.
--- NOTE | 2016-12-03 14:30 | NUR ---
RESTING QUIETLY WITH EYES CLOSED.
[2016-12-03 16:44] VITALS: BP 121/66
--- NOTE | 2016-12-03 17:30 | NUR ---
ATE ALL OF SUPPER. FSBS 194. GIVEN 8 UNITS HUMALOG SUBQ PER SS. NO CHANGES NOTED. DENIES NEEDS.
[2016-12-03 20:00] VITALS: BP 109/59
--- NOTE | 2016-12-03 20:05 | NUR ---
PATIENT RESTING IN BED AND DENIES NEEDS AT THIS TIME. ADMINISTERED MEDS PER ORDERS. BED IN LOWEST POSITION AND CALL LIGHT WITHIN REACH. ENCOURAGED THE PATIENT TO CALL IF SHE HAS NEEDS.
[2016-12-04] VITALS: BP 108/70
[2016-12-04 04:00] VITALS: BP 117/64
[2016-12-04 05:24] LABS: BASOPHILS 0.1 % (0-2); EOSINOPHILS 3.9 % (0-7); HEMOGLOBIN 12.6 g/dL (12-16); IMMATURE GRANULOCYTES 0.7 % (0-5); LYMPHOCYTES 14.5 % (15-50); MCH 28.6 pg (26.0-34.0); MCHC 31.5 g/dL (31.0-37.0); MCV 90.9 fL (80.0-100.0); MEAN PLATELET VOLUME 9.1 fL (7.4-10.4); NEUTROPHILS 70.8 % (40-80); PLATELET COUNT 271 10x3/uL (130-400); RDW 14.3 % (11.5-14.5); WBC 14.9 10x3/uL (4.8-10.8)
[2016-12-04 05:57] LABS: CALC OSMOLALITY 287 mosm/kg (275-300); CALCIUM 8.7 mg/dL (8.5-10.1); CARBON DIOXIDE 37.2 mmol/L (21.0-32.0); CHLORIDE - SERUM 99 mmol/L (98-107); CREATININE - SERUM 0.8 mg/dL (0.6-1.3); GLUCOSE 159 mg/dL (74-106); SODIUM 140 mmol/L (136-145); UREA NITROGEN 29 mg/dL (7-18); eGFR NON AFRICAN AMERICAN 80 mL/min (90-120)
--- NOTE | 2016-12-04 07:30 | NUR ---
PATEINT RESTING WITH HOB UP 30 DEGREES. SHE IS TALKING, PLEASANT WITH THE TECH. SHE IS WITHOUT STATED NEEDS. DENIES NEEDS. STATES THAT SHE GETS UP OOB TO THE RESTROOM INDEPENDENTLY WITH THE WALKER. ENCOURAGED HER TO CALL FOR ASSISTANCE FOR ANY NEEDS. SHE STATES THAT SHE HAS A BIPAP AT HOME WELL OXYGEN. SHE ANTICIPATES GOING HOME TODAY.
[2016-12-04 08:08] VITALS: BP 106/57
[2016-12-04] MEDS ORDERED: BROVANA15 MCG/2 M INH (10:30)
[2016-12-04] MEDS ORDERED: IPRAT-ALBUT 0.5-3 ML IH (10:31)
[2016-12-04] MEDS ORDERED: NYSTATIN1 PWD TOPICAL (10:32)
[2016-12-04] MEDS ORDERED: PREDNISONE10 MG PO (10:35)
[2016-12-04] MEDS ORDERED: ELIQUIS5 MG PO ×2 (10:42→13:46)
[2016-12-04] MEDS ORDERED: LEVAQUIN750 MG PO (10:43)
[2016-12-04 11:27] VITALS: BP 99/53
--- NOTE | 2016-12-04 13:42 | NUR ---
12/04/2016 13:40 DCP: Discharge Planning Patient Name: DOUGLAS HILLS Encounter No: [id number] : 1965 Primary Insurance: [facility] Anticipated DC Date: 12-04-2016 Planned Disposition: Home External Planned Provider: [facility] DCP follow-up note: DC order rec'd. Discussed home health services with patient - she is agreeable. MATT signed for [facility]. Patient and family in agreement with discharge plan. Rahel Obregon
[2016-12-04] MEDS ORDERED: COUMADIN5 MG PO (13:45)
--- NOTE | 2016-12-04 14:10 | NUR ---
PATIENT PREPARING TO DISCHARGE HOME. PRESENTED HER WITH DISCHARGE PAPERWORK, SON AT THE [facility], HE WILL BE DRIVING HER HOME TODAY. SHE STATES THAT SHE HAS PORTABLE O2 BUT THE SON FORGOT TO BRING IT TO THE HOSPITAL WITH HIM TODAY. REPORTED THIS TO THE TILE SETTER SUPERVISOR. SHE IS ARRANGING FOR THE [employer] TO DELIVER A CANISTER FOR DISCHARGE HOME.
--- NOTE | 2016-12-04 15:40 | NUR ---
DME COMPANY DELIVERED PORTABLE O2. PATIENT TRANSPORTED DOWN TO WAITING VEHICLE BY WHEELCHAIR. SHE VOICED UNDERSTANDING OF MEDICATION IMPORTANCE. ENCOURAGED HER TO CALL WITH ANY QUESTIONS.
[2016-12-07 03:12] LABS: OVA + PARASITE EXAM Final report (())
== END 2016-12-04 15:40 | disposition home health service (06) | DRG 208 ==
LOC: D.ER 13:40 → D.ICU 15:18 → D.MS 15:18 → D.ICU 11-28 14:52 → D.MS 11-30 17:11
PROVIDERS: Emergency Medicine; Internal Medicine Pulmonary Disease; ADMIT Family Medicine Adult Medicine
PROC: 05H633Z Insertion of Infusion Device into Left Subclavian Vein, Percutaneous Approach (ICD-10-PCS; principal; 2016-11-25)
PROC: 0T9B70Z Drainage of Bladder with Drainage Device, Via Natural or Artificial Opening (ICD-10-PCS; 2016-11-25)
PROC: 0D9670Z Drainage of Stomach with Drainage Device, Via Natural or Artificial Opening (ICD-10-PCS; 2016-11-25)
PROC: 5A1945Z Respiratory Ventilation, 24-96 Consecutive Hours (ICD-10-PCS; 2016-11-26)
PROC: 02HV33Z Insertion of Infusion Device into Superior Vena Cava, Percutaneous Approach (ICD-10-PCS; 2016-11-26)
PROC: 0JH63XZ Insertion of Tunneled Vascular Access Device into Chest Subcutaneous Tissue and Fascia, Percutaneous Approach (ICD-10-PCS; 2016-11-29)
PROC: 02HV33Z Insertion of Infusion Device into Superior Vena Cava, Percutaneous Approach (ICD-10-PCS; 2016-11-29)
PROC: B5181ZA Fluoroscopy of Superior Vena Cava using Low Osmolar Contrast, Guidance (ICD-10-PCS; 2016-11-29)
DX: J96.22 Acute and chronic respiratory failure with hypercapnia (principal); J18.9 Pneumonia, unspecified organism; I50.23 Acute on chronic systolic (congestive) heart failure; J44.0 Chronic obstructive pulmonary disease with (acute) lower respiratory infection; J44.1 Chronic obstructive pulmonary disease with (acute) exacerbation; Z68.44 Body mass index [BMI] 60.0-69.9, adult; E87.2 Acidosis; E66.2 Morbid (severe) obesity with alveolar hypoventilation; K56.7 Ileus, unspecified; N17.9 Acute kidney failure, unspecified; G72.81 Critical illness myopathy; J96.21 Acute and chronic respiratory failure with hypoxia; I11.0 Hypertensive heart disease with heart failure; E11.65 Type 2 diabetes mellitus with hyperglycemia; K21.9 Gastro-esophageal reflux disease without esophagitis; E03.9 Hypothyroidism, unspecified; E87.6 Hypokalemia; K59.00 Constipation, unspecified; J30.9 Allergic rhinitis, unspecified; E78.5 Hyperlipidemia, unspecified; Z95.0 Presence of cardiac pacemaker

== ENCOUNTER 2017-05-05 19:10 | Inpatient (IN) | payer MEDICARE ==
[~2017-05-05 19:10] MED LIST changes: +COUMADIN5 MG PO; +ELIQUIS5 MG PO; +IPRAT-ALBUT 0.5-3 ML IH; +NYSTATIN1 PWD TOPICAL; +PREDNISONE10 MG PO
[2017-05-05 19:35] LABS: BASOPHILS 0.1 % (0-2); EOSINOPHILS 5.2 % (0-7); HEMOGLOBIN 11.3 g/dL (12-16); IMMATURE GRANULOCYTES 1.3 % (0-5); LYMPHOCYTES 23.3 % (15-50); MCH 26.7 pg (26.0-34.0); MCHC 28.3 g/dL (31.0-37.0); MCV 94.6 fL (80.0-100.0); MONOCYTES 9.6 % (2-11); NEUTROPHILS 60.5 % (40-80); RBC 4.23 10x6/uL (4.00-5.40); RDW 14.5 % (11.5-14.5); WBC 10.2 10x3/uL (4.8-10.8)
[2017-05-05 19:36] LABS: PLATELET COUNT 202 10x3/uL (130-400)
[2017-05-05 19:49] LABS: ALBUMIN 2.7 g/dL (3.4-5.0); ALKALINE PHOSPHATASE 106 U/L (46-116); ALT (SGPT) 23 U/L (10-68); BILIRUBIN - TOTAL 0.36 mg/dL (0.2-1.3); CALC OSMOLALITY 291 mosm/kg (275-300); CALCIUM 8.6 mg/dL (8.5-10.1); CHLORIDE - SERUM 97 mmol/L (98-107); CREATININE - SERUM 0.8 mg/dL (0.6-1.3); GLUCOSE 162 mg/dL (74-106); POTASSIUM - SERUM 3.7 mmol/L (3.5-5.1); PROTEIN - SERUM 7.1 g/dL (6.4-8.2); SODIUM 144 mmol/L (136-145); UREA NITROGEN 14 mg/dL (7-18); eGFR NON AFRICAN AMERICAN 80 mL/min (90-120)
[2017-05-05 19:51] LABS: CARBON DIOXIDE 45.8 mmol/L (21.0-32.0)
[2017-05-05 20:01] LABS: CKMB 0.5 U/L (0.0-3.6); CREATINE KINASE 24 UL (21-215); PRO BNP 2033 pg/mL (0-125)
[2017-05-05 20:02] LABS: TROPONIN-I < 0.017 ng/mL (0.000-0.060)
[2017-05-05 23:00] VITALS: BP 105/56
--- NOTE | 2017-05-05 23:20 | NUR ---
PT ARRIVED VIA BED AND ER STAFF. AOX4, FOLLOWS COMMANDS, ANSWERS QUESTIONS. SOB, LUNG SOUNDS RHONCI/DIMINISHED. BIPAP PLACED @ 40%. SPO2 96. S1S2 HEARD, PERIPHERAL PULSES PRESENT. BOWEL SOUNDS ACTIVE X4. HESS CATH INTACT WITH CLEAR, YELLOW URINE TO BEDSIDE DRAINAGE. LT CHEST INFUSAPORT INTACT AND PATENT. PT POSITIONED IN BED ON LT SIDE WITH PROMINENCES BRIDGED. VSS, DENIES PAIN AT THIS TIME. CALL LIGHT WITHIN PT REACH. ROOM VISIBLE FROM NURSES STATION. CPOC.
[2017-05-05 23:30] VITALS: BP 125/65; BMI 69.4
[2017-05-06] VITALS (24 sets, daily range): BP systolic 94–131; BP diastolic 50–89
--- NOTE | 2017-05-06 01:44 | NUR ---
PT RESTING QUIETLY AT THIS TIME WITH VSS, BIPAP ON. NO C/O PAIN AT THIS TIME. CPOC.
--- NOTE | 2017-05-06 03:40 | NUR ---
REASSESSMENT COMPLETE, SEE FLOWSHEET FOR ALL FINDINGS. NO ACUTE CHANGES AT THIS TIME. PT REMAINS ON BIPAP @ 40%. RESTING QUIETLY. VSS. NO COMPLAINTS AT THIS TIME. CPOC.
[2017-05-06 04:41] LABS: BASOPHILS 0.1 % (0-2); EOSINOPHILS 5.1 % (0-7); HEMATOCRIT 40.1 % (36.0-48.0); HEMOGLOBIN 11.3 g/dL (12-16); IMMATURE GRANULOCYTES 0.9 % (0-5); MCH 26.7 pg (26.0-34.0); MCHC 28.2 g/dL (31.0-37.0); MCV 94.6 fL (80.0-100.0); MEAN PLATELET VOLUME 8.8 fL (7.4-10.4); MONOCYTES 10.3 % (2-11); NEUTROPHILS 64.6 % (40-80); PLATELET COUNT 189 10x3/uL (130-400); RBC 4.24 10x6/uL (4.00-5.40); RDW 14.7 % (11.5-14.5); WBC 7.9 10x3/uL (4.8-10.8)
[2017-05-06 04:52] LABS: CALCIUM 8.5 mg/dL (8.5-10.1); CHLORIDE - SERUM 94 mmol/L (98-107); CREATININE - SERUM 0.7 mg/dL (0.6-1.3); POTASSIUM - SERUM 3.6 mmol/L (3.5-5.1); SODIUM 143 mmol/L (136-145); UREA NITROGEN 11 mg/dL (7-18); eGFR NON AFRICAN AMERICAN > 90 mL/min (90-120)
[2017-05-06 04:54] LABS: CALC OSMOLALITY 284 mosm/kg (275-300); CARBON DIOXIDE 51.3 mmol/L (21.0-32.0); GLUCOSE 108 mg/dL (74-106)
--- NOTE | 2017-05-06 08:10 | NUR ---
EYES CLOSED BI PAP MASK IN PLACE. WHEN INFORMED NEED TO GET ACUCHECK SHE HELD HER HAND OUT. SKIN WARM AND DRY. EXP. WHEEZING NOTED BILATERALLY. 1300 CC OF URINE EMPTIED FROM HESS BAG. CLEAR PALE YELLOW. IV INFUSING PER PORT LEFT SUBCLAVIAN AREA. DRESSING INTACT NO REDNESS AT SITE. BUMEX 10 MG IN 50 ML BAG OF NS INFUSING AT 5 ML HOUR. TURNS SELF FROM SIDE TO SIDE. NO DISTRESS NOTED
--- NOTE | 2017-05-06 10:48 | NUR ---
[facility] TALKED WITH Perlita AT [phone] STATES THAT THE MEDICATIONS 9ON HER CURRENT PROFILE THAT HAVE BEEN RECENTLY FILLED, LANTUS PEN, LEVOTHYROXINE 0.05MG, GLIPIzIDE ER 10 MG , BACLOFEN 10 MG, hYDROCODONE 10/325 MG WAS FILLED ON THE . IN FEBRUARY SHE REFILL WARFARIN 5MG AND PER KCL.
--- NOTE | 2017-05-06 19:00 | NUR ---
DAUGHTER BROUGHT HOME MEDS TO HOSPITAL FOR REVIEW. LASIX 40 MG WAS LAST REFILLED IN JULY 2016. DIGOXIN 0.125MG WAS LAST FILLED IN july 2016. NO BUMEX PRESCRIPTIONS WAS IN PATIENTS MED BOX. ALL OTHER MEDS WERE REPORTED BY [facility]
--- NOTE | 2017-05-06 19:00 | NUR ---
REPORT RECEIVED AND ASSESSMENT COMPLETED. SEE FLOWSHEET FOR FULL DETAILS. PT IS CURRENTLY ON BIPAP SAT 94%. O2 @ 35%. PT IS ON BUMEX DRIP AT THIS TIME WITH EXCELLENT OUTPUT. HESS IN PLACE. BREATH SOUNDS CLEAR AT THIS TIME, THOUGH DIMMINISHED IN LOWER LOBES. CO2 ELEVATED. PT HAS HX OF COPD AND HAS CHRONIC HIGH CO2. WILL MONITOR THROUGHOUT SHIFT FOR CHANGES IN STATUS.
--- NOTE | 2017-05-06 21:00 | NUR ---
2100 MEDS GIVEN. NO OTHER CHANGES IN STATUS AT THIS TIME. WILL CONTINUE TO MONITOR
--- NOTE | 2017-05-06 23:16 | NUR ---
PT HAVING MUSCLE CRAMPS. WILL RECHECK K+ LEVEL AND ASSESS FURTHER.
[2017-05-07] VITALS (19 sets, daily range): BP systolic 86–119; BP diastolic 32–70; BMI 65.4
--- NOTE | 2017-05-07 01:00 | NUR ---
POTASSIUM CAME BACK 3.7. NO ACTION AT THIS TIME. WILL ADMINISTER PRN PAIN MEDICATION WHEN AVAILABLE. PARTIAL BED BATH GIVEN. PT REFUSED FULL BED BATH AND LINEN CHANGE AT THIS TIME. NO OTHER CHANGES IN STATUS VSS. WILL MONITOR
--- NOTE | 2017-05-07 03:00 | NUR ---
REASSESSMENT COMPLETED. HESS CARE COMPLETED AT THIS TIME. SEE ASSESSMENT FLOWSHEET FOR FULL DETAILS. NO OTHER CHANGES IN STATUS AT THIS TIME. WILL CONTINUE TO MONITOR
[2017-05-07 04:44] LABS: BASOPHILS 0 % (0-2); EOSINOPHILS 0 % (0-7); HEMATOCRIT 43.9 % (36.0-48.0); HEMOGLOBIN 12.9 g/dL (12-16); IMMATURE GRANULOCYTES 0.7 % (0-5); LYMPHOCYTES 5.8 % (15-50); MCH 26.9 pg (26.0-34.0); MCHC 29.4 g/dL (31.0-37.0); MCV 91.5 fL (80.0-100.0); NEUTROPHILS 91.5 % (40-80); PLATELET COUNT 205 10x3/uL (130-400); RDW 14.5 % (11.5-14.5); WBC 12.2 10x3/uL (4.8-10.8)
--- NOTE | 2017-05-07 05:00 | NUR ---
ABG'S DRAWN BY RESPIRATOR, AND LABS SENT OFF. AWAITING RESULTS. WILL FOLLOW ELCTROLYTE PROTOCOL.
[2017-05-07 05:01] LABS: ALBUMIN 3.1 g/dL (3.4-5.0); ANION GAP 3.4 mmol/L (8-16); BILIRUBIN - TOTAL 0.92 mg/dL (0.2-1.3); CALCIUM 8.8 mg/dL (8.5-10.1); MAGNESIUM - SERUM 1.6 mg/dL (1.8-2.4); POTASSIUM - SERUM 3.9 mmol/L (3.5-5.1); PROTEIN - SERUM 8.4 g/dL (6.4-8.2)
[2017-05-07 05:05] LABS: CARBON DIOXIDE 51.5 mmol/L (21.0-32.0)
--- NOTE | 2017-05-07 07:00 | NUR ---
Pt awake, alert and oriented. Oral temp of 98.5, BP 119/69 MAP 83, HR 96 SYNUS RHYTHM, O2 SAT 90% ON 5L O2 via NC. Lung sounds clear on RUL,ANA,MRL,MLL. DIMINISHED ON LLL,RLL. Cough noted. Unable to cough up any mucus at this time. S1S2 audible. Abdomen is round and soft. BS hypoactive x 4 quadrants. Has infusaport on left side of chest. Bumex infusing at 5ml/hr and NS infusing at 10ml/hr. Pt rates pain 7/10 on back and legs. Currently wearing plexi foot pumps on both feet. Pt able to change position in bed independently. On a clear liquid diet. Able to eat independently. Pt denies other needs at this time. Will continue to monitor.
--- NOTE | 2017-05-07 09:02 | NUR ---
PT EATING BREAKFAST. AM MEDS GIVEN WITH NO COMPLICATIONS. NORCO GIVEN FOR PAIN 8/10 ON ARM, LEGS, AND BACK. DENIES OTHER NEEDS AT THIS TIME. WILL CONTINUE TO MONITOR.
--- NOTE | 2017-05-07 09:45 | NUR ---
SECOND DOSE OF MAGNESIUM GIVEN PER ELECTROLYTE PROTOCOL TO TREAT LOW MAG OF 1.6. PT RATES PAIN 7/10 AT THIS TIME. DENIES OTHER NEEDS WILL CONTINUE TO MONITOR.
--- NOTE | 2017-05-07 10:00 | NUR ---
PT PULLED UP IN BED AND REPOSITIONED TO LEFT SIDE. ORAL SUCTIONING AND INLINE SUCTIONING PROVIDED. NO OTHER NEEDS AT THIS TIME. WILL CONTINUE TO MONITOR.
--- NOTE | 2017-05-07 11:26 | NUR ---
PT RESTING ON HER BACK WITH HOB AT 30 DEGREES. O2 SAT OF 91% ON 5L O2 VIA NASAL CANULA. PT DENIES OTHER NEEDS AT THIS TIME. WILL CONTINUE TO MONITOR.
--- NOTE | 2017-05-07 11:38 | NUR ---
BLOOD SUGAR 141. LUNCH TRAY IN ROOM. PT DENIES OTHER NEEDS AT THIS TIME.
--- NOTE | 2017-05-07 13:46 | NUR ---
PT RESTING COMFORTABLY. ON BIPAP WITH FIO2 OF 50%, RATE OF 21. HR 84, O2 SAT 97%. BP 104/50 MAP 73. WILL CONTINUE TO MONITOR.
--- NOTE | 2017-05-07 14:55 | NUR ---
* Is the patient Alert and Oriented? Yes 0 * How many steps to enter\\exit or inside your home? 3 0 * Pharmacy [facility] on [address] 0 * Preadmission Environment Home with Family 0 * ADLs Partial Dependent 0 * Partial ADLs (Assistance needed) Ambulation 0 * Equipment BIPAP Nebulizer Oxygen Rolling Walker 0 * List name and contact numbers for known caregivers / representatives who currently or will assist patient after discharge: Daughter - Delfina Li [phone] 0 * Additional services required to return to the preadmission environment? Yes 0 * Can the patient safely return to the preadmission environment? Yes 0 * Has this patient been hospitalized within the prior 30 days at any hospital? No Patient Name: DOUGLAS HILLS Admission Status: ER Accout number: [id number] Admission Date: 05-05-2017 : 1965 Admission Diagnosis: Attending: LOPEZ LYLES Current LOS: 2 Planned Disposition: Home with Home Health Primary Insurance: [facility] Discharge Planning Comments: CM met with patient to assess dc plans/needs. Patient states she is currently living with her daughter, Delfina. She states she is using home O2, nebulizer, & walker at home. She also has a WC & Bipap, but states the Bipap is "broke". She has had home health services in the past with [facility] and is interested in using them again at discharge if needed. I called and spoke with Susanne at [facility] - patient's O2/DME provider - notified her of broken Bipap machine - she states they will contact family and get the unit picked up tomorrow for repair. CM will follow & assist as needed. Filament Maker: Rahel Obregon
--- NOTE | 2017-05-07 14:57 | NUR ---
DR. MESA AND DR. LAMB SAID IT'S OK TO TRANSFER PATIENT TO FLOOR.
--- NOTE | 2017-05-07 15:00 | NUR ---
REASSESSMENT COMPLETED. PT RESTING IN BED WITH BIPAP ON. DENIES OTHER NEEDS AT THIS TIME.
--- NOTE | 2017-05-07 16:38 | NUR ---
FSBS 175. 2 UNTIS OF HUMULIN REG GIVEN PER SLIDING SCALE. DINNER TRAY BROUGHT TO ROOM. BIPAP REMOVED FOR DINNER.
--- NOTE | 2017-05-07 16:53 | NUR ---
PT REPORTING PAIN ON RIGHT SIDE OF ABDOMEN. NORCO 10 GIVEN FOR PAIN RATED 9/10. WILL CONTINUE TO MONITOR.
--- NOTE | 2017-05-07 18:25 | NUR ---
PT WILL BE TRANSFERRED TO [facility] ROOM 0947. REPORT GIVEN TO GABRIELA FRY.
--- NOTE | 2017-05-07 19:04 | NUR ---
PT RECEIVED TO ROOM FROM ICU. PT ABLE TO TRANSFER FROM BED TO BED INDEPENDENTLY. RR EVEN AND UNLABORED. PT ALERT AND ORIENTED X4. WILL GIVE REPORT.
--- NOTE | 2017-05-07 19:07 | NUR ---
PT TRANSFERRED TO ROOM 2128 VIA BED. PURSE, SMALL BAG, PHONE, TRACK VEHICLE REPAIRER CORD, AND OTHER PERSONAL BELONGINGS SENT WITH PATIENT.
--- NOTE | 2017-05-07 19:32 | NUR ---
PT LAYING FLAT IN BED. BUMEX AT 5ML/HR AND NS 10ML/HR TO LEFT INFUSAPORT. PT ON 4L OF O2 NC. BYPAP AT BEDSIDE FOR HS. PT HAS A FOLLEY STAT LOCKED TO LEFT INNER THIGH. PT AAO. DENIES ANY NEEDS AT THIS TIME. WILL CPOC
--- NOTE | 2017-05-07 21:02 | NUR ---
PT EATING A SNACK, GRAPES AND A SANDWINCH. PLEXI PULSE ON FEET BILATERAL. TELEMETRY ON. PT DENIES ANY NEEDS. NO S/S OF DISTRESS. WILL CPOC
--- NOTE | 2017-05-08 | NUR ---
PT FEELS MOMENTS OF CONFUSION. RESPIRATORY STATED KEEPING HER BIPAP ON WILL HELP. PT PUTTING BIPAP ON. PT C/O MUSCLE SPASMS THAT ARE VERY PAINFUL. ONE ORDER OF BACLOFEN 10MG ORDERED VIA TELEPHONE FROM HILAR[facility]. PT DENIES ANY NEEDS. NO S/S OF DISTRESS. WILL CPOC
[2017-05-08] MEDS ORDERED: BACLOFEN10 MG PO (00:02)
--- NOTE | 2017-05-08 02:30 | NUR ---
PT DONE WITH BED BATH. PT CLEANED AND DRIED. LINEN AND GOWN CHANGED. PT DENIES ANY NEEDS AT THIS TIME. STILL C/O MUSCLE SPASMS. BACLOFEN GIVEN, PT HAS NO S/S OF DISTRESS. PLEXI PULSE ON BILATERAL FEET. PT HAS BIPAP ON. WILL CPOC
--- NOTE | 2017-05-08 02:54 | NUR ---
PT STATES HER MUSCLE SPASMS ARE BETTER, ALSO STATES HER CONFUSION SHE WAS FEELING IS GONE. PT DENIES ANY NEEDS AT THIS TIME. BED LOW AND CALL LIGHT IN REACH. WILL CPOC
[2017-05-08 05:07] VITALS: BP 102/46
[2017-05-08 05:10] LABS: BASOPHILS 0 % (0-2); EOSINOPHILS 0 % (0-7); HEMATOCRIT 42.7 % (36.0-48.0); HEMOGLOBIN 12.6 g/dL (12-16); IMMATURE GRANULOCYTES 0.6 % (0-5); MCH 26.7 pg (26.0-34.0); MCHC 29.5 g/dL (31.0-37.0); MCV 90.5 fL (80.0-100.0); MEAN PLATELET VOLUME 9.1 fL (7.4-10.4); MONOCYTES 3.5 % (2-11); NEUTROPHILS 91.9 % (40-80); PLATELET COUNT 237 10x3/uL (130-400); RBC 4.72 10x6/uL (4.00-5.40); RDW 15.1 % (11.5-14.5)
[2017-05-08 05:20] LABS: WBC 15.8 10x3/uL (4.8-10.8)
[2017-05-08 05:38] LABS: CALCIUM 8.2 mg/dL (8.5-10.1); MAGNESIUM - SERUM 1.8 mg/dL (1.8-2.4)
[2017-05-08 06:00] LABS: ANION GAP 6.4 mmol/L (8-16); CARBON DIOXIDE 47.6 mmol/L (21.0-32.0); CREATININE - SERUM 2.1 mg/dL (0.6-1.3)
--- NOTE | 2017-05-08 06:22 | NUR ---
PT STATES SHE SLEPT WELL ONCE I PUT A FAN IN HER ROOM. HER FSBS THIS MORNING IS 182. 2 UNITS GIVEN, PT EATING A SMALL SNACK (GRAMCRACKERS AND PNT BUTTER) AND WILL EAT BREAKFAST. PT C/O PAIN IN STOMACH. ROLLING ON SIDE AND ASKS FOR A PAIN PILL. NORCO GIVEN REQUESTED. PT DENIES ANY OTHER NEEDS. WILL CPOC
[2017-05-08 08:13] VITALS: BP 89/34
[2017-05-08 12:14] VITALS: BP 108/41
--- NOTE | 2017-05-08 13:28 | NUR ---
ALERT AND ORIENTED X4. URGENCY. HAS ACCIDENT IN FLOOR TRYING TO GET TO RESTROOM. PULLS OUT INFUSAPORT. CLEANS SELF IN RESTROOM. ROOM CLEANED. LINENS CHANGED. RESITE IP 20G 1in. DENIES PAIN. REQUEST TO TAKE A NAP. BIPAP ON WHILE SLEEPING. BED LOCKED AND LOW. CALL LIGHT IN REACH. TWO SIDERAILS UP. SINUS RHTHYM 98bpm ON TELEMETRY. RECIEVES LOVENOX INJ.
[2017-05-08 17:13] VITALS: BP 105/46
[2017-05-08 18:59] LABS: ANION GAP 9.8 mmol/L (8-16); CALCIUM 7.5 mg/dL (8.5-10.1); CREATININE - SERUM 1.8 mg/dL (0.6-1.3); POTASSIUM - SERUM 4.5 mmol/L (3.5-5.1)
[2017-05-08 19:10] LABS: CARBON DIOXIDE 41.7 mmol/L (21.0-32.0)
--- NOTE | 2017-05-08 19:30 | NUR ---
ROUNDING NOTE: PT IS ALERT AND AWAKE AT THE CHANGE OF SHIFT. PT IS ON 5L OF OXYGEN VIA NASAL CANNULA. PT HAS BUMEX DRIP RUNNING AT 0.5MG/HR AND NS @ KVO VIA LEFT CHEST INFUSAPORT. PT'S BUN/CREATININE ARE TRENDING UP FROM 20/1.0 YESTERDAY TO 40/1.2 TODAY. DAY NURSE REPORTING THAT PT'S BP HAS BEEN SOFT W/ SBP IN THE 80'S TO LOW 100'S ALL DAY. MD HAS NOT BEEN NOTIFIED YET. PT REQUESTING PAIN MEDS, WILL MEDICATE W/ NORCO PER MD ORDER. WILL CONT TO MONITOR.
--- NOTE | 2017-05-08 20:30 | NUR ---
PT'S BP NOW 79/34. CALL MADE TO HILARIA SHAW APN WOOD MILLING MACHINE HAND TO NOTIFY OF CHANGE IN PT'S CONDITION. RECEIVED TELEPHONE ORDER TO D/C BUMEX IP D/T HYPOTENSION. PT DENIES ANY COMPLAINTS. REQUESTING HER BACLOFEN AND FLEXERIL FOR MUSCLE SPASMS. WILL GIVE MEDS PER PT REQUEST AND MD ORDER. WILL CONT TO MONITOR.
[2017-05-08 20:47] VITALS: BP 79/34
--- NOTE | 2017-05-08 21:30 | NUR ---
PT'S FINGERSTICK 435 @ HS. TX'D WITH 12 UNITS OF INSULIN PER SLIDING SCALE AND [facility] CALLED AND HILARIA SHAW APN NOTIFIED OF CRITICAL POC BLOOD SUGAR LEVEL. NO NEW ORDERS GIVEN. PT IS ASYMPTOMATIC AND REQUESTING A SECOND DINNER TRAY. I ADVISED PATIENT AGAINST THIS SINCE HER BLOOD SUGAR WAS SO HIGH. WILL CONT TO MONITOR.
[2017-05-09 00:52] VITALS: BP 107/50
[2017-05-09 04:37] VITALS: BP 97/52
[2017-05-09 05:28] LABS: BASOPHILS 0 % (0-2); EOSINOPHILS 0.2 % (0-7); HEMATOCRIT 34.9 % (36.0-48.0); IMMATURE GRANULOCYTES 0.4 % (0-5); LYMPHOCYTES 15.9 % (15-50); MCHC 28.7 g/dL (31.0-37.0); MEAN PLATELET VOLUME 9.1 fL (7.4-10.4); MONOCYTES 11.9 % (2-11); NEUTROPHILS 71.6 % (40-80); RDW 15.2 % (11.5-14.5)
[2017-05-09 05:29] LABS: MCV 94.1 fL (80.0-100.0); PLATELET COUNT 176 10x3/uL (130-400); RBC 3.71 10x6/uL (4.00-5.40); WBC 10.4 10x3/uL (4.8-10.8)
--- NOTE | 2017-05-09 05:43 | NUR ---
PT'S BP HAS IMPROVED SINCE THE BUMEX DRIP WAS D/C'D PER TELEPHONE ORDER WITH HILARIA SHAW APN. PT JUST MEDICATED FOR PAIN WITH NORCO. PT DENIES ANY OTEHR COMPLAINTS AT THIS TIME. WILL CONT TO MONITOR.
[2017-05-09 07:04] LABS: CALCIUM 8.2 mg/dL (8.5-10.1)
[2017-05-09 07:12] LABS: ANION GAP 5.6 mmol/L (8-16); POTASSIUM - SERUM 3.8 mmol/L (3.5-5.1)
[2017-05-09 07:15] LABS: CARBON DIOXIDE 44.2 mmol/L (21.0-32.0)
[2017-05-09 08:14] VITALS: BP 107/48
--- NOTE | 2017-05-09 11:25 | NUR ---
Patient Name: DOUGLAS HILLS Encounter No: [id number] : 1965 Primary Insurance: [facility] Anticipated DC Date: Planned Disposition: Home with Home Health External Planned Provider: [facility] DCP follow-up note: CM MET WITH PT IN ROOM TO DISCUSS DISCHARGE NEEDS AND PLANNING. CM DISCUSSED AVAILABILITY OF HOME HEALTH, REHAB SERVICES AND MEDICAL EQUIPMENT. PT WANTS HOME HEALTH WITH [facility]. CHOICE SIGNED. DAUGHTER TO TRANSPORT HOME AT DISCHARGE. IMPORTANT MESSAGE FROM MEDICARE PROVIDED AND EXPLAINED. CM TO ARRANGE HOME HEALTH WITH [facility] FOR DISCHARGE HOME WITH PHYSICAN AGREEMENT AND ORDERS. Davin Osman, CASE MANAGEMENT
[2017-05-09 12:10] VITALS: BP 122/55
--- NOTE | 2017-05-09 13:42 | NUR ---
ALERT AND ORIENTED X4. RESTING IN BED. INFUSAPORT DRESSING CHANGED, INITIALED AND DATED. SINUS TACH 120bpm ON TELEMETRY. DENIES ANY NEEDS. BED LOCKED AND AND LOW. CALL LIGHT IN REACH. THREE SIDERAILS UP.
[2017-05-09 15:31] VITALS: BP 123/63
[2017-05-09 19:00] VITALS: BP 121/70
--- NOTE | 2017-05-09 19:10 | NUR ---
ROUNDING NOTE: PT SITTING UP IN BED WATCHING TV AND VISITING WITH FAMILY AT CHANGE OF SHIFT. DTR AND DTR IN LAW AT THE BEDSIDE. PT REQUESTING ICE WATER AND LEMON TELLER SODA, GIVEN PER PT REQUEST. PT REMAINS ON 5L OXYGEN. PT HAS LEFT CHEST INFUSAPORT W/ NS AT O. PT DENIES ANY OTHER NEEDS AT THIS TIME. WILL CONT TO MONITOR.
[2017-05-10] VITALS: BP 113/59
[2017-05-10 04:00] VITALS: BP 118/56
[2017-05-10 05:58] LABS: BASOPHILS 0 % (0-2); EOSINOPHILS 0.7 % (0-7); HEMATOCRIT 40.2 % (36.0-48.0); HEMOGLOBIN 11.8 g/dL (12-16); IMMATURE GRANULOCYTES 0.4 % (0-5); MCH 26.6 pg (26.0-34.0); MCHC 29.4 g/dL (31.0-37.0); MCV 90.5 fL (80.0-100.0); MEAN PLATELET VOLUME 8.9 fL (7.4-10.4); MONOCYTES 11.4 % (2-11); NEUTROPHILS 68.5 % (40-80); PLATELET COUNT 178 10x3/uL (130-400); RBC 4.44 10x6/uL (4.00-5.40); RDW 14.8 % (11.5-14.5); WBC 12.3 10x3/uL (4.8-10.8)
[2017-05-10 06:07] LABS: CALC OSMOLALITY 284 mosm/kg (275-300); CHLORIDE - SERUM 98 mmol/L (98-107); CREATININE - SERUM 0.8 mg/dL (0.6-1.3); GLUCOSE 107 mg/dL (74-106); MAGNESIUM - SERUM 1.9 mg/dL (1.8-2.4); POTASSIUM - SERUM 3.8 mmol/L (3.5-5.1); SODIUM 138 mmol/L (136-145); UREA NITROGEN 37 mg/dL (7-18); eGFR NON AFRICAN AMERICAN 80 mL/min (90-120)
[2017-05-10 06:08] LABS: CARBON DIOXIDE 40.1 mmol/L (21.0-32.0)
--- NOTE | 2017-05-10 07:44 | NUR ---
AWAKE AND TAKLING ONTHE PHONE. NO DISTRESS. WILL CONTINUE TO MONITOR.
[2017-05-10 08:00] VITALS: BP 116/53
[2017-05-10] MEDS ORDERED: SINGULAIR10 MG PO (11:21)
[2017-05-10] MEDS ORDERED: MUCINEX DM ER1 EAC1 PO (11:21)
[2017-05-10] MEDS ORDERED: DOXYCYCLINE HY100 M2 PO (11:23)
[2017-05-10] MEDS ORDERED: PREDNISONE10 MG PO (11:24)
[2017-05-10] MEDS ORDERED: LISINOPRIL5 MG PO (11:25)
[2017-05-10] MEDS ORDERED: TESSALON PERLE100 MG PO (11:25)
[2017-05-10] MEDS ORDERED: FLORAJEN3 CAPS460 MG PO (11:26)
[2017-05-10 12:00] VITALS: BP 146/66
--- NOTE | 2017-05-10 13:25 | NUR ---
ORDER FOR DISCHARGE. HESS REMOVED WITH 800 CC OF CLEAR URINE.
--- NOTE | 2017-05-10 13:44 | NUR ---
HOME HEALTH REFERRAL FAXED TO [facility] PER PTS CHOICE. THEY ARE FAMILIAR WITH THE PATIENT AND WILL CALL PATIENT FOR INITIAL VISIT.
--- NOTE | 2017-05-10 14:07 | NUR ---
VALUABLES BROUGHT FROM [facility]. PATIENT STATES EVERYTHING IS THERE.
--- NOTE | 2017-05-10 15:31 | NUR ---
medications given to patient. all are accounted for. PORT DE ACCESSED. MONITOR REMOVED. DISCHARGE INSTRUCTIONS GIVEN TO PATIENT ALONG WITH COPIES. PT UNDERSTANDS. WAITING FOR RIDE.
--- NOTE | 2017-05-10 17:28 | NUR ---
FAMILY HERE. PT TO CAR VIA WC.
[2017-05-14 16:12] LABS: AEROBE ID Final report (())
== END 2017-05-10 17:29 | disposition home health service (06) | DRG 291 ==
LOC: D.ER 19:10 → D.ICU 21:37 → D.MS 21:37 → D.M2 21:37 → D.ICU 22:59 → D.M2 05-07 19:03
PROVIDERS: Emergency Medicine; Family Medicine; Internal Medicine Pulmonary Disease; ADMIT Family Medicine
PROC: 5A09557 Assistance with Respiratory Ventilation, Greater than 96 Consecutive Hours, Continuous Positive Airway Pressure (ICD-10-PCS; principal; 2017-05-05)
DX: I11.0 Hypertensive heart disease with heart failure (principal); J96.22 Acute and chronic respiratory failure with hypercapnia; J96.21 Acute and chronic respiratory failure with hypoxia; J15.6 Pneumonia due to other Gram-negative bacteria; J13 Pneumonia due to Streptococcus pneumoniae; J44.1 Chronic obstructive pulmonary disease with (acute) exacerbation; E66.2 Morbid (severe) obesity with alveolar hypoventilation; Z68.44 Body mass index [BMI] 60.0-69.9, adult; I50.23 Acute on chronic systolic (congestive) heart failure; J30.9 Allergic rhinitis, unspecified; E11.9 Type 2 diabetes mellitus without complications; M19.90 Unspecified osteoarthritis, unspecified site; E03.9 Hypothyroidism, unspecified; I07.1 Rheumatic tricuspid insufficiency; E78.5 Hyperlipidemia, unspecified; K21.9 Gastro-esophageal reflux disease without esophagitis; Z95.0 Presence of cardiac pacemaker; Z87.891 Personal history of nicotine dependence

== ENCOUNTER 2017-05-29 09:16 | Inpatient (IN) | payer MEDICARE ==
[~2017-05-29] VITALS: Ht 152.4 cm; Wt 148.6 kg
[~2017-05-29 09:16] MED LIST changes: +BACLOFEN10 MG PO; +DOXYCYCLINE HY100 M2 PO; +FLORAJEN3 CAPS460 MG PO; +LISINOPRIL5 MG PO; +TESSALON PERLE100 MG PO
[2017-05-29 10:03] LABS: BASOPHILS 0.2 % (0-2); EOSINOPHILS 3.9 % (0-7); HEMATOCRIT 40.9 % (36.0-48.0); HEMOGLOBIN 11.6 g/dL (12-16); LYMPHOCYTES 14.3 % (15-50); MCH 26.9 pg (26.0-34.0); MCHC 28.4 g/dL (31.0-37.0); MCV 94.7 fL (80.0-100.0); MEAN PLATELET VOLUME 8.9 fL (7.4-10.4); NEUTROPHILS 73.6 % (40-80); PLATELET COUNT 176 10x3/uL (130-400); RBC 4.32 10x6/uL (4.00-5.40); RDW 15.8 % (11.5-14.5); WBC 9.4 10x3/uL (4.8-10.8)
[2017-05-29 10:30] LABS: ALBUMIN 2.7 g/dL (3.4-5.0); ALKALINE PHOSPHATASE 99 U/L (46-116); ALT (SGPT) 15 U/L (10-68); BILIRUBIN - TOTAL 0.43 mg/dL (0.2-1.3); CALC OSMOLALITY 287 mosm/kg (275-300); CALCIUM 8.8 mg/dL (8.5-10.1); CHLORIDE - SERUM 100 mmol/L (98-107); CHOLESTEROL, TOTAL 149 mg/dL (0-200); CKMB 0.9 U/L (0.0-3.6); CREATINE KINASE 17 UL (21-215); CREATININE - SERUM 0.7 mg/dL (0.6-1.3); GLUCOSE 163 mg/dL (74-106); HDL CHOLESTEROL 37 mg/dL (32-96); LDL CHOLESTEROL 95 mg/dL (0-100); LDL-HDL RATIO 2.6 ratio (1.5-3.5); POTASSIUM - SERUM 4.3 mmol/L (3.5-5.1); PRO BNP 446 pg/mL (0-125); SODIUM 143 mmol/L (136-145); TRIGLYCERIDE 86 mg/dL (30-200); TROPONIN-I < 0.017 ng/mL (0.000-0.060); UREA NITROGEN 9 mg/dL (7-18); eGFR NON AFRICAN AMERICAN > 90 mL/min (90-120)
[2017-05-29 10:31] LABS: CARBON DIOXIDE 43.8 mmol/L (21.0-32.0)
[2017-05-29 12:06] LABS: APPEARANCE CLEAR (CLEAR); BILIRUBIN NEGATIVE (NEGATIVE); COLOR YELLOW (YELLOW); GLUCOSE NEGATIVE (NEGATIVE); KETONE NEGATIVE (NEGATIVE); NITRITE NEGATIVE (NEGATIVE); PROTEIN NEGATIVE (NEGATIVE); SPECIFIC GRAVITY 1.015 (1.005-1.020); UROBILINOGEN NORMAL (NORMAL)
--- NOTE | 2017-05-29 15:00 | NUR ---
PT WAS RECEIVED FROM ER. PT IS DROWSY. SHE IS NOTED TO BE ON BIPAP MACHINE. PT IS OBESE. GEN- DROWSY, ASLEEP. AROUSABLE. LUNGS- DIMISNISHED BREATH SOUNDS. HEART= RRR. ABD- OBESE, BS+, EXT. WARM AND DRY PULSES PALPABLE. BED IS LOW, SIDE RAILS UP X 2 AND CALL LIGHT IN REACH.
--- NOTE | 2017-05-29 16:00 | NUR ---
PT IS STILL RESTIN. PT IS ON BIPAP SHE IS LAYING ON HER R SIDE AT THIS TIME. BED IS LOW. SIDE RAILS UP X 2 AND CALL LIGHT IN REACH.
--- NOTE | 2017-05-29 17:20 | NUR ---
PT IS AWAKE. RESPIRATORY TOOK BIPAP OFF FOR A MINUTE. SHE STATES THAT SHE DOES NOT LIKE WHAT THEY BROUGHT HER FOR DINNER. THEY ORDERED HER SOMETHING ELSE. BED IS LOW, SIDE RAILS UP X 2 AND CALL LIGHT IN REACH.
--- NOTE | 2017-05-29 17:20 | NUR ---
PT WANTS TO EAT APPLIED OXIMIZER TITRATE TO MAINTAIN SP02 92 AND ABOVE WHILE OFF THE BIPAP SPO2 CURRENTLY 96
--- NOTE | 2017-05-29 18:43 | NUR ---
IV ACCESSED. 07/27 MEENA TORRES. IV ANTIBIOTIC AND OTHER MEDS GIVEN FOR 1800 MEDS. PT IS ALERT AND ORIENTED. BED IS LOW, SIDE RAILS UP X 2 AND CALL LIGHT IN REACH.
[2017-05-29 20:00] VITALS: BP 116/58
--- NOTE | 2017-05-29 20:50 | NUR ---
PT RESTING IN BED AND DENIES NEEDS AT THIS TIME. ADMINISTERED MEDS PER ORDERS AND COMPLETED ASSESSMENT. BED IN LOWEST POSITION AND CALL LIGHT WITHIN REACH. ENCOURAGED THE PT TO CALL IF SHE HAS NEEDS.
[2017-05-30] VITALS (7 sets, daily range): BP systolic 86–124; BP diastolic 43–62; Ht 152.4 cm; Wt 148.6 kg
--- NOTE | 2017-05-30 00:05 | NUR ---
PATIENT WAS ABLE TO EAT AND DRINK WITH NO NAUSEA/VOMITING. ALEJO BLANCO TRANSFERED PATIENT TO ER DOORS VIA WHEELCHAIR.
[2017-05-30 06:40] LABS: BASOPHILS 0 % (0-2); EOSINOPHILS 0.2 % (0-7); HEMATOCRIT 46.5 % (36.0-48.0); HEMOGLOBIN 13.3 g/dL (12-16); IMMATURE GRANULOCYTES 0.5 % (0-5); LYMPHOCYTES 5.2 % (15-50); MCH 26.9 pg (26.0-34.0); MCHC 28.6 g/dL (31.0-37.0); MCV 94.1 fL (80.0-100.0); MEAN PLATELET VOLUME 9.5 fL (7.4-10.4); MONOCYTES 0.6 % (2-11); NEUTROPHILS 93.5 % (40-80); PLATELET COUNT 159 10x3/uL (130-400); RBC 4.94 10x6/uL (4.00-5.40); RDW 15.6 % (11.5-14.5); WBC 10.5 10x3/uL (4.8-10.8)
[2017-05-30 06:41] LABS: ALBUMIN 3.1 g/dL (3.4-5.0); BILIRUBIN - TOTAL 0.43 mg/dL (0.2-1.3); CALCIUM 8.6 mg/dL (8.5-10.1); MAGNESIUM - SERUM 1.8 mg/dL (1.8-2.4); PHOSPHOROUS 4.6 mg/dL (2.5-4.9); POTASSIUM - SERUM 4.4 mmol/L (3.5-5.1); PROTEIN - SERUM 7.3 g/dL (6.4-8.2)
[2017-05-30 06:43] LABS: CREATININE - SERUM 0.9 mg/dL (0.6-1.3)
[2017-05-30 06:44] LABS: ANION GAP 10.4 mmol/L (8-16)
--- NOTE | 2017-05-30 08:21 | NUR ---
PT AOX4 RESP EVEN AND NONLABORED PT DENIES NEEDS AT THIS TIME IV TO LEFT PORT PATENT AND INTACT AT THIS TIME SRX2 BED AT LOWEST SETTING CALL LIGHT WITHIN REACH WILL CONTINUE TO MONITOR
--- NOTE | 2017-05-30 13:00 | NUR ---
Patient Name: DOUGLAS HILLS Admission Status: ER Accout number: [id number] Admission Date: 05-29-2017 : 1965 Admission Diagnosis: Attending: JUAN DIEGO VILLALOBOS Current LOS: 1 Anticipated DC Date: 06-04-2017 Planned Disposition: Home with Home Health Primary Insurance: [facility] Discharge Planning Comments: CM MET WITH PATIENT REGARDING D/C NEEDS AND PLANS. PATIENT STATED SHE LIVES WITH HER DAUGHTER (CHANG) AND SHE WILL DRIVE HER HOME AT DISCHARGE. PATIENT STATED SHE HAS 2 STEPS W/RAILS TO ENTER HOME AND NO STAIRS INSIDE. PATIENTS PCP IS DR. PEDRAZA AND USES [facility] ON [facility]. PATIENT STATED SHE IS INDEPENDENT WITH HER CARE AND HAS A BIPAP, WALKER, GLUCOMETER, OXYGEN, PORTABLE O2, AND NEBULIZER AT HOME. DRAKE IS THE PROVIDER FOR HER OXYGEN. PATIENT IS CURRENT WITH [facility] HOUSE CALLS. CM WILL CONTINUE TO FOLLOW PATIENT WITH D/C NEEDS AND PLANS. PCP DR. MILO MCFADDEN ON [facility]- [phone] CHANG (DAUGHTER) [phone] Multimedia Project Manager: Marii Toussaint Is the patient Alert and Oriented? Yes 0 * How many steps to enter\exit or inside your home? 2 W/RAILS 0 * PCP DR. PEDRAZA 0 * [facility] 0 * Preadmission Environment Home with Family 0 * ADLs Independent 0 * Equipment BIPAP Glucometer Nebulizer Oxygen Walker 0 * Other Equipment PORTABLE O2 0 * List name and contact numbers for known caregivers / representatives who currently or will assist patient after discharge: CH[facility] (DAUGHTER) [phone] 0 * Community resources currently utilized Home Health 0 * Please name any agencies selected above. [facility]SO HAS HOUSE CALLS 0 * Additional services required to return to the preadmission environment? Yes 0 * Can the patient safely return to the preadmission environment? Yes 0 * Has this patient been hospitalized within the prior 30 days at any hospital? No 0 Grand Total: 0
--- NOTE | 2017-05-30 20:03 | NUR ---
OT NOTE: PT COMPLETED BUE GROSS/FM TASKS FOR I WITH ADLS. PT COMPLETED HYGIENE TASK WITH SET UP. THANK YOU, CRISPIN UMANA/Marija
--- NOTE | 2017-05-30 20:05 | NUR ---
PATIENT RESTING IN BED AND DENIES NEEDS AT THIS TIME. ADMINISTERED MEDS AND COMPLETED ASSESSMENT. BED IN LOWEST POSITION AND CALL LIGHT WITHIN REACH. ENCOURAGED THE PATIENT TO CALL IF SHE HAS NEEDS.
--- NOTE | 2017-05-31 00:20 | NUR ---
PT LYING IN BED ON BACKSIDE WITH CPAP MACHINE ON. PT STATED WAITING ON GRADE TAMPER TO COMPLETE BATH, NO OTHER NEEDS AT THIS TIME. BED IN LOWEST POSITION, CALL LIGHT IN REACH. NO SIGNS OF DISTRESS, CONTINUE WITH PLAN OF CARE
[2017-05-31 02:33] VITALS: BP 117/51
[2017-05-31 06:10] LABS: BASOPHILS 0 % (0-2); EOSINOPHILS 0 % (0-7); HEMATOCRIT 41.1 % (36.0-48.0); HEMOGLOBIN 12.3 g/dL (12-16); IMMATURE GRANULOCYTES 0.5 % (0-5); LYMPHOCYTES 4.2 % (15-50); MCH 27.2 pg (26.0-34.0); MCHC 29.9 g/dL (31.0-37.0); MEAN PLATELET VOLUME 9.4 fL (7.4-10.4); MONOCYTES 3.1 % (2-11); NEUTROPHILS 92.2 % (40-80); RBC 4.52 10x6/uL (4.00-5.40); RDW 15.5 % (11.5-14.5); WBC 12.8 10x3/uL (4.8-10.8)
[2017-05-31 06:12] LABS: MCV 90.9 fL (80.0-100.0); PLATELET COUNT 216 10x3/uL (130-400)
--- NOTE | 2017-05-31 06:24 | NUR ---
RECIEVED REPORT FROM RT SANTA PT'S ABGS ARE FOLLOWS PH- 7.264 PCO2 -98.8 PO2 - 119.0 HCO3 - 44.7 BE (b) 12.7 AND SPO2 - 97.5
[2017-05-31 06:30] VITALS: BP 123/49
[2017-05-31 06:38] LABS: ALBUMIN 3.1 g/dL (3.4-5.0); ANION GAP 10.2 mmol/L (8-16); BILIRUBIN - TOTAL 0.4 mg/dL (0.2-1.3); CALCIUM 9.3 mg/dL (8.5-10.1); CARBON DIOXIDE 39.1 mmol/L (21.0-32.0); CREATININE - SERUM 0.9 mg/dL (0.6-1.3); MAGNESIUM - SERUM 2.2 mg/dL (1.8-2.4); PHOSPHOROUS 4.7 mg/dL (2.5-4.9); POTASSIUM - SERUM 4.3 mmol/L (3.5-5.1); PROTEIN - SERUM 7.3 g/dL (6.4-8.2)
--- NOTE | 2017-05-31 08:00 | NUR ---
REC'D IN ROOM LAYING IN BED WITH EYE OPEN. RESP EVEN AND UNLABORED WITH O2 IN USE AT TIME AND BIPAP. NO C/O NOTED OR VOICED. ASSESSMENT COMPLETED. WILL CONTINUE TO OBSERVE FOR NEEDS. C/L IN REACH AT BEDSIDE.
[2017-05-31 10:05] VITALS: BP 143/57
[2017-05-31 13:29] VITALS: BP 140/62
[2017-05-31 16:56] VITALS: BP 168/61
--- NOTE | 2017-05-31 19:45 | NUR ---
PT RESTING QUIETLY WITH EYES CLOSED. BIPAP MACHINE IN USE. HESS TO BEDSIDE GRAVITY. LEFT INFUSAPORT NS @ 10. NO DISTRESS NOTED AT THIS TIME. CALL LIGHT IN REACH, WILL CONTINUE WITH PLAN OF CARE.
[2017-05-31 20:00] VITALS: BP 172/65
--- NOTE | 2017-05-31 22:25 | NUR ---
BS 386 ADMINISTERED 10 UNITS HUMALOG PER SS.
[2017-06-01] VITALS: BP 169/70
[2017-06-01 04:00] VITALS: BP 154/68
[2017-06-01 05:29] LABS: BASOPHILS 0 % (0-2); EOSINOPHILS 0 % (0-7); HEMATOCRIT 43.5 % (36.0-48.0); HEMOGLOBIN 13.3 g/dL (12-16); IMMATURE GRANULOCYTES 0.4 % (0-5); LYMPHOCYTES 4.7 % (15-50); MCH 27.1 pg (26.0-34.0); MCHC 30.6 g/dL (31.0-37.0); MEAN PLATELET VOLUME 9.2 fL (7.4-10.4); MONOCYTES 3.7 % (2-11); NEUTROPHILS 91.2 % (40-80); PLATELET COUNT 239 10x3/uL (130-400); WBC 13.8 10x3/uL (4.8-10.8)
[2017-06-01 05:40] LABS: MCV 88.8 fL (80.0-100.0)
[2017-06-01 05:42] LABS: ALBUMIN 3.5 g/dL (3.4-5.0); ANION GAP 5.4 mmol/L (8-16); BILIRUBIN - TOTAL 0.46 mg/dL (0.2-1.3); CALCIUM 10.4 mg/dL (8.5-10.1); CREATININE - SERUM 1.1 mg/dL (0.6-1.3); POTASSIUM - SERUM 3.6 mmol/L (3.5-5.1); PROTEIN - SERUM 8.6 g/dL (6.4-8.2)
[2017-06-01 05:43] LABS: CARBON DIOXIDE 46.2 mmol/L (21.0-32.0)
--- NOTE | 2017-06-01 07:28 | NUR ---
AM ROUNDS- PT IN BED, USING BIPAP, RESP EVEN AND UNLABORED, LT CHEST INFUSAPORT INFUSING NS AT KVO. PT A/O X4, PT DENIES ANY NEEDS AT THIS TIME. BED LOW AND WHEELS LOCKED, CALL LIGHT IN REACH, NAD NOTED, WILL CONTINUE PLAN OF CARE.
[2017-06-01 08:11] VITALS: BP 116/53
--- NOTE | 2017-06-01 09:44 | NUR ---
AM MEDS GIVEN AT THIS TIME. PT REFUSED MIRALAX AND COLACE, STATED " I ALREADY HAD A BIG BM TODAY.". PT ON BIPAP AT THIS TIME. DENIES ANY NEEDS, CALL LIGHT IN REACH, NAD NOTED, WILL CONTINUE TO MONITOR.
--- NOTE | 2017-06-01 10:53 | NUR ---
BLOOD SUGAR OF 418, 20UNITS OF HUMALOG GIVEN PER S/S. WILL NOTIFY LION Holder APN. PT DENIES ANY NEEDS AT THIS TIME. CEFEPIME IVPB HUNG, PROBIOTIC GIVEN. PT USING BIPAP, NAD NOTED, WILL CONTINUE TO MONITOR.
[2017-06-01 13:48] VITALS: BP 124/71
--- NOTE | 2017-06-01 13:50 | NUR ---
Nutrition Follow Up: Chart reviewed. Pt is on an AHA diet. No BM since admit. Labs reviewed - Glucose continues elevated. Meds noted including Solu-Medrol, Bumex. Will change diet to ADA AHA to aid in glucose control. RD following.
[2017-06-01 16:03] VITALS: BP 115/74
--- NOTE | 2017-06-01 17:23 | NUR ---
CALLED DR. VILLALOBOS AND INFORMED HIM OF BLOOD SUGAR OF 459, DR. VILLALOBOS STATED TO GIVE INSULIN PER S/S AND RECHECK AGAIN IN 30MIN.
--- NOTE | 2017-06-01 18:45 | NUR ---
PAGED DR. VILLALOBOS, WAITING URGENT CARE NURSE PRACTITIONER BACK.
--- NOTE | 2017-06-01 18:51 | NUR ---
RECEIVED CALL BACK FROM DR. VILLALOBOS, INFORMED DR. VILLALOBOS OF CRITICAL GLUCOSE. ORDERS FOR 25UNITS OF HUMALOG ONE TIME DOSE, CHANGE LANTUS TO 20UNITS DAILY.
[2017-06-01 20:00] VITALS: BP 92/62
--- NOTE | 2017-06-01 21:50 | NUR ---
PATIENT RESTING IN BED AND DENIES NEEDS AT THIS TIME. ADMINISTERED MEDS PER ORDERS. BED IN LOWEST POSITION AND CALL LIGHT WITHIN REACH. ENCOURAGED THE PT TO CALL IF SHE HAS NEEDS.
[2017-06-02] VITALS: BP 134/63
[2017-06-02 04:00] VITALS: BP 118/70
[2017-06-02 06:47] LABS: BASOPHILS 0 % (0-2); EOSINOPHILS 0 % (0-7); HEMATOCRIT 45.9 % (36.0-48.0); HEMOGLOBIN 14.3 g/dL (12-16); IMMATURE GRANULOCYTES 0.6 % (0-5); LYMPHOCYTES 8.4 % (15-50); MCHC 31.2 g/dL (31.0-37.0); MEAN PLATELET VOLUME 9.2 fL (7.4-10.4); MONOCYTES 6.1 % (2-11); NEUTROPHILS 84.9 % (40-80); PLATELET COUNT 263 10x3/uL (130-400); RDW 15.2 % (11.5-14.5); WBC 15.1 10x3/uL (4.8-10.8)
[2017-06-02 06:49] LABS: MCV 86.6 fL (80.0-100.0)
[2017-06-02 07:11] LABS: ALBUMIN 3.5 g/dL (3.4-5.0); ANION GAP 12.6 mmol/L (8-16); BILIRUBIN - TOTAL 0.5 mg/dL (0.2-1.3); CALCIUM 9.8 mg/dL (8.5-10.1); POTASSIUM - SERUM 3.6 mmol/L (3.5-5.1); PROTEIN - SERUM 8.7 g/dL (6.4-8.2)
[2017-06-02 08:24] VITALS: BP 110/58
[2017-06-02 12:46] VITALS: BP 133/68
--- NOTE | 2017-06-02 14:13 | NUR ---
PT RESTING IN BED WITH EYES OPEN CALL LIGHT IN REACH WILL MONITER
--- NOTE | 2017-06-02 15:00 | NUR ---
PT WIHTOUT DISTRESS.CALL LIGHT IN REACH
[2017-06-02 15:49] VITALS: BP 126/68
--- NOTE | 2017-06-02 19:00 | NUR ---
REPORT RECEIVED AND CARE OF PT ASSUMED. PT LYING IN SUPINE POSITION WATCHING TV. UPDRAFT TX IN PROGRESS. LEFT IP PATENT WITH NS INFUSING AT KVO. TELEMETRY IN PLACE AND READING 96 SR AT THIS ASSESSMENT. HESS CATHETER DRAINING TO GRAVITY WITH YELLOW URINE IN COLLECTION BAG. WILL MONITOR CLOSLEY FOR NEEDS. CALL LIGHT WITHIN REACH.
--- NOTE | 2017-06-02 20:35 | NUR ---
HS SNACK GIVEN PER DIET ORDER...CONSUMED 100%.
--- NOTE | 2017-06-02 20:55 | NUR ---
HS MEDICATIONS GIVEN. FSBS 249 THIS CHECK REQUIRING COVERAGE WITH 8 UNITS OF INSULIN PER SLIDING SCALE. WILL CONTINUE TO MONITOR FOR NEEDS.
[2017-06-02 21:25] VITALS: BP 121/74
[2017-06-03 00:27] VITALS: BP 116/74
--- NOTE | 2017-06-03 04:00 | NUR ---
GAVE NORCO PO PER PT REQUEST FOR BACK PAIN. WILL MONITOR FOR EFFECTIVENESS.
[2017-06-03 05:31] LABS: BASOPHILS 0.1 % (0-2); EOSINOPHILS 0 % (0-7); HEMATOCRIT 46.2 % (36.0-48.0); HEMOGLOBIN 14.6 g/dL (12-16); IMMATURE GRANULOCYTES 0.4 % (0-5); LYMPHOCYTES 8.4 % (15-50); MCH 27.1 pg (26.0-34.0); MCHC 31.6 g/dL (31.0-37.0); MCV 85.7 fL (80.0-100.0); MEAN PLATELET VOLUME 9.2 fL (7.4-10.4); NEUTROPHILS 84.1 % (40-80); RBC 5.39 10x6/uL (4.00-5.40); RDW 15.3 % (11.5-14.5); WBC 16.8 10x3/uL (4.8-10.8)
[2017-06-03 05:32] LABS: PLATELET COUNT 206 10x3/uL (130-400)
--- NOTE | 2017-06-03 05:37 | NUR ---
GAVE COFFEE PER REQUEST. WILL CONTINUE TO MONITOR FOR NEEDS.
[2017-06-03 05:53] VITALS: BP 137/76
[2017-06-03 06:02] LABS: ALBUMIN 3.8 g/dL (3.4-5.0); BILIRUBIN - TOTAL 0.58 mg/dL (0.2-1.3); CALCIUM 9.8 mg/dL (8.5-10.1); POTASSIUM - SERUM 3.5 mmol/L (3.5-5.1); PROTEIN - SERUM 8.3 g/dL (6.4-8.2)
[2017-06-03 06:19] LABS: ANION GAP 7.3 mmol/L (8-16)
[2017-06-03 06:20] LABS: CARBON DIOXIDE 45.2 mmol/L (21.0-32.0)
--- NOTE | 2017-06-03 06:25 | NUR ---
GIVING PT 40 MEQ POTASSIUM FOR LAB VALUE OF 3.5...PER ELECTROLYTE PROTOCOL.
--- NOTE | 2017-06-03 07:30 | NUR ---
REPORT RECEIVED. PT RESTING QUIETLY, UTILIZING OXIMIZER FLOW DEVICE AT 11L. PT IS ALERT AND ORIENTED X4. ASSESSMENT PERFORMED. PT DENIES NEEDS AT THIS TIME. WILL CTM.
[2017-06-03 07:44] VITALS: BP 121/65
[2017-06-03 12:25] VITALS: BP 110/71
--- NOTE | 2017-06-03 12:30 | NUR ---
PTS POTASSIUM IS LOW. WILL GIVE PRN POTASSIUM PACKETS PER PROTOCOL AND RECHECK K+ IN 4 HRS. WILL CTM.
[2017-06-03 16:09] VITALS: BP 106/57
--- NOTE | 2017-06-03 18:30 | NUR ---
PT RESTING QUIETLY, RR EVEN AND UNLABORED. PT DENIES NEEDS AT THIS TIME, PAIN HAS SUBSIDED SINCE PAIN MED GIVEN. WILL GIVE REPORT ON PT CONDTION FOR THE DAY.
--- NOTE | 2017-06-03 19:00 | NUR ---
REPORT RECEIVED AND CARE OF PT ASSUMED. PT LYING IN SUPINE POSITION RECEIVING A BREATHING TX AT THIS TIME. LEFT IP PATENT WITH NS INFUSING AT KVO. WILL MONITOR CLOSELY FOR NEEDS. CALL LIGHT WITHIN REACH.
[2017-06-03 20:25] VITALS: BP 115/60
--- NOTE | 2017-06-03 20:45 | NUR ---
HS SNACK GIVEN PER DIET ORDER. WILL CONTINUE TO MONITOR FOR NEEDS.
--- NOTE | 2017-06-03 21:05 | NUR ---
HS MEDICATIONS GIVEN. FSBS 362 THIS CHECK REQUIRING COVERAGE WITH 16 UNITS INSULIN PER SLIDING SCALE. WILL CONTINUE TO MONITOR FOR NEEDS.
--- NOTE | 2017-06-03 21:07 | NUR ---
PT ASSISTED TO TAKE SHOWER. ALL LINENS AND GOWN CHANGED.
--- NOTE | 2017-06-03 23:45 | NUR ---
GAVE NORCO PO PER PT REQUEST FOR PAIN, PER PRN ORDER. WILL MONITOR FOR EFFECTIVENESS.
[2017-06-04 00:40] VITALS: BP 126/69
[2017-06-04 05:07] VITALS: BP 126/70
[2017-06-04 06:29] LABS: BASOPHILS 0.1 % (0-2); EOSINOPHILS 2.2 % (0-7); HEMATOCRIT 46.6 % (36.0-48.0); HEMOGLOBIN 14.3 g/dL (12-16); IMMATURE GRANULOCYTES 0.4 % (0-5); LYMPHOCYTES 17.6 % (15-50); MCH 27.1 pg (26.0-34.0); MCHC 30.7 g/dL (31.0-37.0); MEAN PLATELET VOLUME 9.4 fL (7.4-10.4); MONOCYTES 9.3 % (2-11); NEUTROPHILS 70.4 % (40-80); PLATELET COUNT 212 10x3/uL (130-400); RBC 5.28 10x6/uL (4.00-5.40); RDW 15.4 % (11.5-14.5); WBC 19.6 10x3/uL (4.8-10.8)
[2017-06-04 06:31] LABS: MCV 88.3 fL (80.0-100.0)
[2017-06-04 06:47] LABS: CALCIUM 10.1 mg/dL (8.5-10.1); MAGNESIUM - SERUM 2.2 mg/dL (1.8-2.4); PHOSPHOROUS 4.8 mg/dL (2.5-4.9)
[2017-06-04 06:49] LABS: CARBON DIOXIDE 42.6 mmol/L (21.0-32.0); POTASSIUM - SERUM 2.6 mmol/L (3.5-5.1)
[2017-06-04 08:22] VITALS: BP 121/70
--- NOTE | 2017-06-04 08:50 | NUR ---
REC'D IN BED AWAKE AND ALERT. RESP EVEN AND UNLABORED WITH NO DISTRESS NOTED. CAN EXPRESS NEEDS AND WANTS.NO C/O NOTED OR VOICED AT THIS TIME.ASSESSMENT COMPLETED. C/L IN REACH AT BEDSIDE.
--- NOTE | 2017-06-04 10:09 | NUR ---
RESTING QUIETLY IN BED. DENIES ANY NEEDS AT THIS TIME.
[2017-06-04 13:02] VITALS: BP 132/64
[2017-06-04 16:21] VITALS: BP 105/81
--- NOTE | 2017-06-04 17:29 | NUR ---
OT NOTE: PT COMPLETED BUE AROM EXS FOR INCREASED AX TOLERANCE. PT COMPLETED GROOMING TASK WITH SET UP. THANK YOU, CRISPIN UMANA/Marija
[2017-06-04 20:21] VITALS: BP 115/54
--- NOTE | 2017-06-05 01:25 | NUR ---
PT RESTING QUIETLY WITH EYES CLOSED AT THIS TIME. BIPAP IN USE. NO DISTRESS NOTED. CALL LIGHT IN REACH, SRX2, BED IN LOWEST POSITION. WILL CONTINUE PLAN OF CARE.
[2017-06-05 03:50] VITALS: BP 133/66
--- NOTE | 2017-06-05 07:41 | NUR ---
CALLED TO ROOM BY PATIENT. HOLDING INFLATED HESS CATHETER-STATES IT PULLED WHEN SHE MOVED AND CAME OUT. HESS EMPTIED OF 3200 CC YELLOW URINE. PT DOES NOT WANT IT REPLACED IF POSSIBLE. STATES NO SOB. CALL LIGHT IN REACH-WILL CALL DOCTOR REGARDING CATHETER
--- NOTE | 2017-06-05 08:15 | NUR ---
PT RESTING IN BED WITH EYES OPEN CALL LIGHT IN REACH NO PROBLEMS WILL MONITER
[2017-06-05 08:38] VITALS: BP 108/55
[2017-06-05] MEDS ORDERED: DALIRESP500 MCG PO (09:48)
[2017-06-05] MEDS ORDERED: BUMEX 1 MG TAB1 MG PO (09:48)
[2017-06-05] MEDS ORDERED: FLUTICASONE PRO16 GM NASAL (09:48)
[2017-06-05] MEDS ORDERED: DIAMOX250 MG PO (09:48)
[2017-06-05] MEDS ORDERED: Zaroxolyn PO (09:49)
[2017-06-05] MEDS ORDERED: PREDNISONE10 MG PO (09:49)
--- NOTE | 2017-06-05 10:12 | NUR ---
OT NOTE: PT DOING MUCH BETTER. ABLE TO AMB INDEP INTO BATHROOM..PERFORMED TOILETING WITHOUT ASSIST; SINK HYGIENE WITHOUT ASSIST; ABLE TO TOLERATE SITTING ON EDGE OF BED WITHOUT UE SUPPORT X 15 MIN TO IMPROVE TRUNK CONTROL. PERFORMED UE AND LE EXS TO IMPROVE STRENGTH. PT REPORTS THAT SHE FEELS MUCH BETTER.
--- NOTE | 2017-06-05 10:41 | NUR ---
CM REASSESSMENT NOTE: PATIENT IS DISCHARGING HOME TODAY/FAMILY DRIVING HER. PATIENT HAS A PORTABLE O2 FOR TRANSFER HOME. PATIENT IS CURRENT WITH [facility] AND HAS HOUSE CALLS. NO OTHER NEEDS PER PATIENT FOR DISCHARGE.
[2017-06-05 10:57] LABS: HEMATOCRIT 46.9 % (36.0-48.0); HEMOGLOBIN 14.5 g/dL (12-16); MCH 27.1 pg (26.0-34.0); MCHC 30.9 g/dL (31.0-37.0); MCV 87.5 fL (80.0-100.0); MEAN PLATELET VOLUME 9.6 fL (7.4-10.4); PLATELET COUNT 238 10x3/uL (130-400); RBC 5.36 10x6/uL (4.00-5.40); RDW 15.5 % (11.5-14.5); WBC 22.2 10x3/uL (4.8-10.8)
[2017-06-05 10:58] LABS: ALBUMIN 3.7 g/dL (3.4-5.0); BILIRUBIN - TOTAL 0.99 mg/dL (0.2-1.3); CALCIUM 9.8 mg/dL (8.5-10.1); CREATININE - SERUM 1.1 mg/dL (0.6-1.3); PROTEIN - SERUM 8.4 g/dL (6.4-8.2)
[2017-06-05 10:59] LABS: ANION GAP 7.7 mmol/L (8-16)
[2017-06-05 11:07] LABS: CARBON DIOXIDE 45.6 mmol/L (21.0-32.0); POTASSIUM - SERUM 2.3 mmol/L (3.5-5.1)
--- NOTE | 2017-06-05 11:07 | NUR ---
SWITCHED PT FROM OXIMIZER TO REG NC 37% FI02 PT CURRENT SPO2 ON 96% AND HOLDING. EDUCATION PROVIDED REGARDING THE APPLICATION AND COMPLIANCE OF SUPPLEMENTAL 02. CURRENT BREATH SOUNDS BILATERAL CLEAR/DIMINISHED TO ANTERIOR CHAVEZ UPON ASCULTATION EQUALATERAL EXCURSION WITH NO APPARENT EXERTIONAL DYPSNEA NOTED PT SOON TO BE DISCHARGED
--- NOTE | 2017-06-05 12:00 | NUR ---
PT DISCHARGE PENDING DUE TO LOW K PT GETTING ORAL POTASSIUM PER ORDER
[2017-06-05 12:26] LABS: EOSINOPHILS 1 % (0-7); LYMPHOCYTES 19 % (15-50); MONOCYTES 12 % (2-11); NEUTROPHILS 66 % (40-80); PLATELET ESTIMATE NORMAL
--- NOTE | 2017-06-05 12:32 | NUR ---
OT NOTE: PT SEEN WITH OT AND PT. PERFORMED BED MOB WITH MIN ASSIST; SIT TO STAND WITH MIN ASSIST, AND ABLE TO AMB WITH RW GREATER THAN 25 FT. PT THEN SAT UP IN CHAIR VS RETURNING TO BED. MOTIVATED TO IMPROVE AND RETURN HOME. BERNADINE HILL, OTR/L
[2017-06-05 12:56] VITALS: BP 115/63
--- NOTE | 2017-06-05 13:45 | NUR ---
PT DISCHARGED CANCELLED
--- NOTE | 2017-06-05 14:12 | NUR ---
NUTRITION F/U CHART REVIEWED. PT SLEEPING. NOTE DISCHARGE CANCELLED. TOLERATING CURRENT DIET WITH 100% INTAKE RECENT MEALS. RD FOLLOWING
[2017-06-05 16:29] VITALS: BP 103/62
--- NOTE | 2017-06-05 19:50 | NUR ---
PT. IN BED WITH HOB UP FOR COMFORT AND IS WATCHING TV. ASSESSMENT COMPLETED. NO VOICED NEEDS AT THIS TIME EXCEPT FOR A CUP OF ICE. PT. GOING TO BR PRN WITHOUT PROBLEMS SINCE JIMENA D/C'D TODAY. CALL LIGHT WITHIN REACH.
[2017-06-05 20:00] VITALS: BP 115/54
--- NOTE | 2017-06-05 22:30 | NUR ---
MESSAGE LEFT THAT PT'S K+ 2.9. INFORMED PT. AND SHE ASKED FOR ORANGE JUICE WITH HER K+ RIDER THIS TIME. WILL COMPLY WITH PT'S REQUEST.
--- NOTE | 2017-06-05 23:28 | NUR ---
PT. IN BED WITH HOB UP FOR COMFORT AND IS STILL WATCHING TV. NO VOICED NEEDS AT THIS TIME. PT.CONTINUES TO GET UP TO THE BR ON HER OWN TO URINATE. CALL LIGHT WITHIN REACH. BIPAP SET UP FOR PT'S USE.
[2017-06-06] VITALS: BP 122/69
--- NOTE | 2017-06-06 03:20 | NUR ---
PT. LYING ON HER LEFT SIDE WITH HOB UP FOR COMFORT. EYES CLOSED AND RESP. EVEN. BIPAP ON VIA FACE MASK WITHOUT ANY ALARMS. CALL LIGHT WITHIN REACH.
[2017-06-06 04:00] VITALS: BP 110/72
[2017-06-06 06:11] LABS: BASOPHILS 0 % (0-2); EOSINOPHILS 2.3 % (0-7); HEMATOCRIT 45.6 % (36.0-48.0); HEMOGLOBIN 14.4 g/dL (12-16); IMMATURE GRANULOCYTES 0.4 % (0-5); LYMPHOCYTES 16.4 % (15-50); MCH 27.1 pg (26.0-34.0); MCHC 31.6 g/dL (31.0-37.0); MCV 85.9 fL (80.0-100.0); MEAN PLATELET VOLUME 9.4 fL (7.4-10.4); MONOCYTES 7.7 % (2-11); NEUTROPHILS 73.2 % (40-80); PLATELET COUNT 248 10x3/uL (130-400); RBC 5.31 10x6/uL (4.00-5.40); RDW 15.3 % (11.5-14.5); WBC 22.5 10x3/uL (4.8-10.8)
[2017-06-06 06:36] LABS: ALBUMIN 3.7 g/dL (3.4-5.0); ALKALINE PHOSPHATASE 94 U/L (46-116); ALT (SGPT) 20 U/L (10-68); CALC OSMOLALITY 291 mosm/kg (275-300); CALCIUM 10.2 mg/dL (8.5-10.1); CHLORIDE - SERUM 86 mmol/L (98-107); GLUCOSE 101 mg/dL (74-106); PROTEIN - SERUM 7.8 g/dL (6.4-8.2); SODIUM 137 mmol/L (136-145); UREA NITROGEN 64 mg/dL (7-18); eGFR NON AFRICAN AMERICAN 80 mL/min (90-120)
[2017-06-06 06:41] LABS: CREATININE - SERUM 0.8 mg/dL (0.6-1.3)
[2017-06-06 06:43] LABS: CARBON DIOXIDE 41.4 mmol/L (21.0-32.0); POTASSIUM - SERUM 2.8 mmol/L (3.5-5.1)
--- NOTE | 2017-06-06 07:40 | NUR ---
PATIENT IS AWAKE AND TALKING, SHE DOES C/O PAIN AND REQUESTS MEDS WHEN SHE IS ABLE TO RECEIVE.
[2017-06-06 09:32] VITALS: BP 106/57
--- NOTE | 2017-06-06 09:47 | NUR ---
CM REASSESSMENT NOTE: PATIENT DID NOT DISCHARGE YESTERDAY DUE TO HER POTASSIUM. D/C WILL BE PLANNED ONCE POTASSIUM STABLE.
--- NOTE | 2017-06-06 11:23 | NUR ---
OT NOTE: PT CONTINUES TO BE INDEP WITH TOILETING. PT REPORTS THAT SHE HAS BEEN UP TO BATHROOM ALL NIGHT. PT EXPRESSED CONTINUED DESIRE TO GO HOME BUT THAT HER POTASSIUM LEVEL IS STILL NOT WHERE IT NEEDS TO BE. SHE IS INDEP WITH UE EXS. OT WILL DC PT AT THIS TIME, SHE IS SAFE WITH ADLS, IN ROOM MOBILITY, AND UE EX PROGRAM. BERNADINE HILL, OTR/L
[2017-06-06 13:03] VITALS: BP 97/72
[2017-06-06 15:34] VITALS: BP 132/70
[2017-06-06 15:40] LABS: ALBUMIN 3.6 g/dL (3.4-5.0); BILIRUBIN - TOTAL 0.59 mg/dL (0.2-1.3); CALCIUM 9.5 mg/dL (8.5-10.1); PROTEIN - SERUM 8.2 g/dL (6.4-8.2)
[2017-06-06 15:43] LABS: CREATININE - SERUM 1.3 mg/dL (0.6-1.3)
[2017-06-06 15:44] LABS: POTASSIUM - SERUM 2.9 mmol/L (3.5-5.1)
[2017-06-06 15:45] LABS: ANION GAP 8.5 mmol/L (8-16)
[2017-06-06 15:46] LABS: CARBON DIOXIDE 41.4 mmol/L (21.0-32.0)
--- NOTE | 2017-06-06 18:07 | NUR ---
OT NOTE: PT COMPLETED SUPINE TO SIT AND SIDE ROLLING WITH SPV. PT COMPLETED EOB SITTING BALANCE WITH SPV. PT COMPLETED GROOMING TASK AT EOB WITH SPV. THANK YOU, CRISPIN UMANA/Marija
[2017-06-06 23:09] VITALS: BP 105/57
[2017-06-07 01:20] VITALS: BP 112/69
[2017-06-07 05:43] LABS: BASOPHILS 0.1 % (0-2); HEMATOCRIT 42.1 % (36.0-48.0); HEMOGLOBIN 13.1 g/dL (12-16); IMMATURE GRANULOCYTES 0.6 % (0-5); LYMPHOCYTES 18.7 % (15-50); MCHC 31.1 g/dL (31.0-37.0); MCV 86.8 fL (80.0-100.0); MEAN PLATELET VOLUME 9.4 fL (7.4-10.4); MONOCYTES 9.2 % (2-11); NEUTROPHILS 69.4 % (40-80); RBC 4.85 10x6/uL (4.00-5.40); RDW 15.3 % (11.5-14.5); WBC 18.2 10x3/uL (4.8-10.8)
[2017-06-07 05:47] LABS: PLATELET COUNT 301 10x3/uL (130-400)
[2017-06-07 05:48] VITALS: BP 101/80
[2017-06-07 06:14] LABS: ALBUMIN 3.4 g/dL (3.4-5.0); CALCIUM 10.1 mg/dL (8.5-10.1); PROTEIN - SERUM 7.6 g/dL (6.4-8.2)
[2017-06-07 06:28] LABS: CREATININE - SERUM 0.9 mg/dL (0.6-1.3)
[2017-06-07 06:29] LABS: ANION GAP 9.9 mmol/L (8-16)
[2017-06-07 06:31] LABS: CARBON DIOXIDE 43.1 mmol/L (21.0-32.0)
--- NOTE | 2017-06-07 07:45 | NUR ---
PT ASSESSMENT COMPLETE AWAKE AND ALERT NO DISTRESS NOTED VOICES ALL NEEDS TO SAFF UP AD FRANCINE WITH BRP HYPOKALEMIC TODAY WITH ELECTROLYTE PROTOCOL IN PLACE
[2017-06-07 09:42] VITALS: BP 101/63
[2017-06-07 09:59] LABS: MAGNESIUM - SERUM 2.3 mg/dL (1.8-2.4); PHOSPHOROUS 4.7 mg/dL (2.5-4.9)
[2017-06-07 13:05] VITALS: BP 120/47
--- NOTE | 2017-06-07 13:28 | NUR ---
PT NOTE-CURRENTLY RECIEVING POTASSIUM CHALLENEGES FOR LYTE PROTOCOL-K 20. THIS AM. NO NEEDS OR COMPLAINTS AT THIS TIME. WAS HOPING FOR DISCHARGE TODAY. WILL RECHECK POTASSIUM LEVEL THIS AFTERNOON. CALL LIGHT IN REACH
[2017-06-07 16:00] VITALS: BP 146/67
--- NOTE | 2017-06-07 19:00 | NUR ---
REPORT RECEIVED AND CARE OF PT ASSUMED. PT SITTING UP ON BED WATCHING TV. LEFT PORT ACCESSED AND SALINE LOCKED. TELEMETRY IN PLACE AND READING 83 SR AT THIS ASSESSMENT. WILL MONITOR CLOSELY FOR NEEDS.
--- NOTE | 2017-06-07 20:40 | NUR ---
HS SNACK GIVEN PER DIETARY ORDER OF JULIUS CRACKERS AND SKIM MILK.
[2017-06-07 21:20] VITALS: BP 105/53
--- NOTE | 2017-06-07 21:52 | NUR ---
HS MEDICATIONS GIVEN. FSBS 212 THIS CHECK REQUIRING COVERAGE WITH 8 UNITS OF INSULIN PER SLIDING SCALE. WILL CONTINUE TO MONITOR FOR NEEDS.
[2017-06-08 00:56] VITALS: BP 117/66
--- NOTE | 2017-06-08 02:17 | NUR ---
PT RESTING IN SUPINE POSITION WITH EYES CLOSED AND BIPAP IN PLACE. WILL CONTINUE TO MONITOR FOR NEEDS.
[2017-06-08 04:52] VITALS: BP 119/65
[2017-06-08 06:32] LABS: BASOPHILS 0 % (0-2); EOSINOPHILS 2.3 % (0-7); HEMATOCRIT 38.7 % (36.0-48.0); HEMOGLOBIN 11.8 g/dL (12-16); IMMATURE GRANULOCYTES 0.5 % (0-5); LYMPHOCYTES 21.4 % (15-50); MCH 26.8 pg (26.0-34.0); MCHC 30.5 g/dL (31.0-37.0); MEAN PLATELET VOLUME 9.3 fL (7.4-10.4); NEUTROPHILS 65.8 % (40-80); PLATELET COUNT 330 10x3/uL (130-400); RDW 15.4 % (11.5-14.5)
[2017-06-08 07:07] LABS: ALBUMIN 3.2 g/dL (3.4-5.0); ALKALINE PHOSPHATASE 72 U/L (46-116); ALT (SGPT) 19 U/L (10-68); CALCIUM 9.8 mg/dL (8.5-10.1); CARBON DIOXIDE 34.7 mmol/L (21.0-32.0); CHLORIDE - SERUM 94 mmol/L (98-107); CREATININE - SERUM 0.7 mg/dL (0.6-1.3); GLUCOSE 153 mg/dL (74-106); MAGNESIUM - SERUM 1.9 mg/dL (1.8-2.4); PHOSPHOROUS 4.2 mg/dL (2.5-4.9); PROTEIN - SERUM 6.5 g/dL (6.4-8.2); SODIUM 136 mmol/L (136-145); eGFR NON AFRICAN AMERICAN > 90 mL/min (90-120)
[2017-06-08 07:08] LABS: CALC OSMOLALITY 285 mosm/kg (275-300); POTASSIUM - SERUM 3.1 mmol/L (3.5-5.1); UREA NITROGEN 43 mg/dL (7-18)
--- NOTE | 2017-06-08 07:50 | NUR ---
PT AOX4 RESP EVEN AND NONLABORED NO IV SITE AT THIS TIME PT DENIES NEEDS AT THIS TIME SRX2 BED AT LOWEST SETTING CALL LIGHT WITHIN REACH WILL CONTINUE TO MONITOR
[2017-06-08 08:36] VITALS: BP 128/59
[2017-06-08] MEDS ORDERED: K-DUR20 MEQ PO (09:32)
--- NOTE | 2017-06-08 11:32 | NUR ---
CM REASSESSMENT NOTE: PATIENT IS DISCHARGING HOME TODAY/DAUGHTER IS DRIVING. PATIENT HAS EQUIPMENT AT HOME THAT IS NEEDED. IMM SIGNED
[2017-06-08 12:14] VITALS: BP 134/66
--- NOTE | 2017-06-08 13:15 | NUR ---
PT GIVEN DISCHARGE INSTRUCTIONS AND TAKEN VIA WHEELCHAIR VIA PRIVATE VEHICLE AT THIS TIME
== END 2017-06-08 13:15 | disposition home or self-care (01) | DRG 291 ==
LOC: D.ER 09:16 → D.MS 12:25
PROVIDERS: Emergency Medicine; Internal Medicine Pulmonary Disease; ADMIT Emergency Medicine
PROC: 5A09457 Assistance with Respiratory Ventilation, 24-96 Consecutive Hours, Continuous Positive Airway Pressure (ICD-10-PCS; principal; 2017-05-29)
PROC: 0T9B70Z Drainage of Bladder with Drainage Device, Via Natural or Artificial Opening (ICD-10-PCS; 2017-05-29)
DX: I11.0 Hypertensive heart disease with heart failure (principal); J96.21 Acute and chronic respiratory failure with hypoxia; J96.22 Acute and chronic respiratory failure with hypercapnia; M35.1 Other overlap syndromes; J44.1 Chronic obstructive pulmonary disease with (acute) exacerbation; G72.81 Critical illness myopathy; E66.2 Morbid (severe) obesity with alveolar hypoventilation; Z68.44 Body mass index [BMI] 60.0-69.9, adult; J45.901 Unspecified asthma with (acute) exacerbation; E87.2 Acidosis; I50.23 Acute on chronic systolic (congestive) heart failure; E11.65 Type 2 diabetes mellitus with hyperglycemia; E03.9 Hypothyroidism, unspecified; Z99.81 Dependence on supplemental oxygen; I07.1 Rheumatic tricuspid insufficiency; Z87.891 Personal history of nicotine dependence; E87.6 Hypokalemia

== ENCOUNTER 2017-07-10 16:01 | Inpatient (IN) | payer MEDICARE, MEDICAID ==
[~2017-07-10] VITALS: Ht 152.4 cm; Wt 157.0 kg
--- NOTE | ~2017-07-10 | EC ---
PATIENT:DOUGLAS HILLS DATE OF SERVICE: 07/11/17 SEX: F MEDICAL RECORD: [id number] DATE OF : [birth year] LOCATION:D.M2 D.212 AGE OF PATIENT: 51 ADMISSION DATE: 07/11/17 REFERRING PHYSICIAN: INTERPRETING PHYSICIAN: CONNOR FAUSTIN MD ECHOCARDIOGRAM REPORT ECHO CHARGES 4 ECHO COMPLETE CLINICAL DIAGNOSIS: CHF ECHOCARDIOGRAPHIC MEASUREMENTS (adult normal given) AC root (d.<3.7cm) 3.1 cm LV Septum d (<1.2 cm> 2.1 cm Valve Excursion 1.8 cm LV Septum (systole) 2.8 cm Left Atria (s.<4.0cm> 3.1 cm LVPW d(<1.2cm) 1.9 cm RV (d.<2.3cm) 3.9 cm LVPW (sytole) 2.5 cm LV diastole(<5.6CM) 4.2 cm MV E-F(>70mm/sec) cm LV systole 2.0 cm LVOT Diameter 2.2 cm MV exc.(>10mm) cm Est.ejection fraction (50-75%) % Pericardial Effusion N DOPPLER: LVIT cm/sec A 152 cm/sec E 115 cm/sec LA cm/sec RVSP 32.0 mmHg LVOT 114 cm/sec AOP1/2T m/s Asc. Ao 246 cm/sec RVOT 96.0 cm/sec RA cm/sec PA 160 cm/sec AV Gradient Peak 24.2 mmHg AV Mean 12.0 mmHg AV Area 1.5 cm MV Gradient Peak 9.1 mmHg MV Mean 4.0 mmHg MV Area cm COMMENTS: Cloth Coverer: Katherine HYLTONOE Superintendent Of Generation: 3 Dr. Em TAPE# PACS DATE OF SERVICE: 07/11/2017 Adequate 2D echo, color flow, spectral Doppler, and M-Mode. LVH is present. LV internal dimensions are normal. Wall motion is normal. EF is greater than 55%. Aortic valve is tricuspid. No evidence of stenosis. Doppler interrogation: Left atrium is normal dimensions. Mitral valve shows no prolapse. Mild MR. Right-sided chamber is grossly normal. Mild TR. ECHOCARDIOGRAM REPORT [id number] DOUGLAS HILLS TRANSINT:[id number] Voice Confirmation ID: [id number] DOCUMENT ID: [id number] 07/19/2017 Edited to correct date of service, dmm. CONNOR FAUSTIN MD at 1144 CC: [id number] DICTATION DATE: 07/12/17 1310 IDENTIFICATION OFFICER: 07/12/17 1320 DIS IN 07/13/17 [place] [id number] [place] [id number]
[~2017-07-10 16:01] MED LIST changes: +BUMEX 1 MG TAB1 MG PO; +DALIRESP500 MCG PO; +Zaroxolyn PO
[2017-07-10 16:59] LABS: BASOPHILS 0.1 % (0-2); EOSINOPHILS 2.2 % (0-7); HEMATOCRIT 37.9 % (36.0-48.0); HEMOGLOBIN 10.9 g/dL (12-16); IMMATURE GRANULOCYTES 0.9 % (0-5); LYMPHOCYTES 17.2 % (15-50); MCH 26.6 pg (26.0-34.0); MCHC 28.8 g/dL (31.0-37.0); MCV 92.4 fL (80.0-100.0); MEAN PLATELET VOLUME 9.2 fL (7.4-10.4); MONOCYTES 8.7 % (2-11); NEUTROPHILS 70.9 % (40-80); RDW 16.1 % (11.5-14.5); WBC 10.6 10x3/uL (4.8-10.8)
[2017-07-10 17:05] LABS: PLATELET COUNT 179 10x3/uL (130-400)
[2017-07-10 17:14] LABS: ALBUMIN 2.7 g/dL (3.4-5.0); ALKALINE PHOSPHATASE 82 U/L (46-116); ALT (SGPT) 17 U/L (10-68); CALC OSMOLALITY 280 mosm/kg (275-300); CALCIUM 8.8 mg/dL (8.5-10.1); CHLORIDE - SERUM 97 mmol/L (98-107); CREATININE - SERUM 0.7 mg/dL (0.6-1.3); GLUCOSE 134 mg/dL (74-106); POTASSIUM - SERUM 3.9 mmol/L (3.5-5.1); PROTEIN - SERUM 6.6 g/dL (6.4-8.2); SODIUM 141 mmol/L (136-145); UREA NITROGEN 7 mg/dL (7-18); eGFR NON AFRICAN AMERICAN > 90 mL/min (90-120)
[2017-07-10 17:20] LABS: CARBON DIOXIDE 47.1 mmol/L (21.0-32.0)
[2017-07-10 17:23] LABS: CREATINE KINASE 21 UL (21-215); PRO BNP 380 pg/mL (0-125)
[2017-07-10 17:30] LABS: DIGOXIN 0.05 ng/mL (0.90-2.00); TROPONIN-I < 0.017 ng/mL (0.000-0.060)
[2017-07-10] MEDS ORDERED: LEVOTHYROXINE50 MCG PO (22:26)
[2017-07-10] MEDS ORDERED: HYDROCODONE-APA1 TAB PO (22:26)
[2017-07-10] MEDS ORDERED: LANOXIN250 MCG PO (22:27)
[2017-07-10 23:39] VITALS: BP 148/70; BMI 58.7
[2017-07-11 01:50] VITALS: BP 120/59
[2017-07-11 05:01] LABS: BASOPHILS 0.1 % (0-2); EOSINOPHILS 0.1 % (0-7); HEMATOCRIT 40.6 % (36.0-48.0); HEMOGLOBIN 11.9 g/dL (12-16); IMMATURE GRANULOCYTES 1.1 % (0-5); LYMPHOCYTES 7.6 % (15-50); MCHC 29.3 g/dL (31.0-37.0); MCV 92.3 fL (80.0-100.0); MEAN PLATELET VOLUME 9.7 fL (7.4-10.4); NEUTROPHILS 90.1 % (40-80); PLATELET COUNT 192 10x3/uL (130-400); WBC 11.1 10x3/uL (4.8-10.8)
[2017-07-11 05:41] LABS: ANION GAP 0.5 mmol/L (8-16); POTASSIUM - SERUM 3.6 mmol/L (3.5-5.1)
[2017-07-11 05:44] LABS: CARBON DIOXIDE 44.1 mmol/L (21.0-32.0); CREATININE - SERUM 0.9 mg/dL (0.6-1.3)
[2017-07-11 05:54] VITALS: BP 109/54
[2017-07-11 07:00] VITALS: BP 112/58
[2017-07-11 11:00] VITALS: BP 124/69
[2017-07-11 15:06] VITALS: Ht 152.4 cm; Wt 157.0 kg
[2017-07-11 15:07] VITALS: BP 98/45
[2017-07-11 21:14] VITALS: BP 97/46
[2017-07-12 01:16] VITALS: BP 126/47
[2017-07-12 05:39] VITALS: BP 100/55
[2017-07-12 06:33] LABS: BASOPHILS 0 % (0-2); EOSINOPHILS 0.2 % (0-7); HEMATOCRIT 39.9 % (36.0-48.0); HEMOGLOBIN 11.4 g/dL (12-16); IMMATURE GRANULOCYTES 0.6 % (0-5); LYMPHOCYTES 10.7 % (15-50); MCH 26.5 pg (26.0-34.0); MCHC 28.6 g/dL (31.0-37.0); MCV 92.6 fL (80.0-100.0); MEAN PLATELET VOLUME 9.5 fL (7.4-10.4); NEUTROPHILS 84.5 % (40-80); RBC 4.31 10x6/uL (4.00-5.40); RDW 16.7 % (11.5-14.5); WBC 12.3 10x3/uL (4.8-10.8)
[2017-07-12 06:34] LABS: ANION GAP 8.4 mmol/L (8-16); CARBON DIOXIDE 38.8 mmol/L (21.0-32.0); MAGNESIUM - SERUM 2.1 mg/dL (1.8-2.4); PHOSPHOROUS 5.2 mg/dL (2.5-4.9)
[2017-07-12 06:41] LABS: PLATELET COUNT 237 10x3/uL (130-400)
[2017-07-12 06:43] LABS: POTASSIUM - SERUM 4.2 mmol/L (3.5-5.1)
[2017-07-12 07:49] VITALS: BP 113/56
[2017-07-12 12:05] VITALS: BP 116/68
[2017-07-12 15:45] VITALS: BP 130/66
[2017-07-12 20:21] VITALS: BP 94/41
[2017-07-13 00:41] VITALS: BP 105/42
[2017-07-13 04:29] VITALS: BP 117/58
[2017-07-13 05:33] LABS: BASOPHILS 0 % (0-2); EOSINOPHILS 0 % (0-7); HEMATOCRIT 39.1 % (36.0-48.0); HEMOGLOBIN 11.4 g/dL (12-16); IMMATURE GRANULOCYTES 0.7 % (0-5); LYMPHOCYTES 6.7 % (15-50); MCH 26.7 pg (26.0-34.0); MCHC 29.2 g/dL (31.0-37.0); MCV 91.6 fL (80.0-100.0); MONOCYTES 2.8 % (2-11); NEUTROPHILS 89.8 % (40-80); PLATELET COUNT 233 10x3/uL (130-400); RBC 4.27 10x6/uL (4.00-5.40); RDW 16.7 % (11.5-14.5); WBC 10.2 10x3/uL (4.8-10.8)
[2017-07-13 05:36] LABS: ANION GAP 9.7 mmol/L (8-16); CALCIUM 9.2 mg/dL (8.5-10.1); CARBON DIOXIDE 34.1 mmol/L (21.0-32.0); CREATININE - SERUM 1.2 mg/dL (0.6-1.3); POTASSIUM - SERUM 4.8 mmol/L (3.5-5.1)
[2017-07-13 08:43] VITALS: BP 110/52
[2017-07-13 13:05] VITALS: BP 131/61
[2017-07-13] MEDS ORDERED: DIAMOX250 MG PO (14:43)
[2017-07-13] MEDS ORDERED: PREDNISONE10 MG PO (14:45)
[2017-07-13] MEDS ORDERED: DOXYCYCLINE HY100 M2 PO (14:45)
[2017-07-13] MEDS ORDERED: LISINOPRIL5 MG PO (14:47)
== END 2017-07-13 17:27 | disposition home health service (06) | DRG 291 ==
LOC: D.ER 16:01 → OBSVTIME 20:22 → D.M2 20:22
PROVIDERS: Emergency Medicine
PROC: 0T9B70Z Drainage of Bladder with Drainage Device, Via Natural or Artificial Opening (ICD-10-PCS; principal; 2017-07-10)
PROC: 5A09457 Assistance with Respiratory Ventilation, 24-96 Consecutive Hours, Continuous Positive Airway Pressure (ICD-10-PCS; 2017-07-10)
DX: I11.0 Hypertensive heart disease with heart failure (principal); J96.22 Acute and chronic respiratory failure with hypercapnia; J96.21 Acute and chronic respiratory failure with hypoxia; J18.9 Pneumonia, unspecified organism; E66.2 Morbid (severe) obesity with alveolar hypoventilation; Z68.44 Body mass index [BMI] 60.0-69.9, adult; M35.1 Other overlap syndromes; J44.1 Chronic obstructive pulmonary disease with (acute) exacerbation; J44.0 Chronic obstructive pulmonary disease with (acute) lower respiratory infection; I50.23 Acute on chronic systolic (congestive) heart failure; I08.1 Rheumatic disorders of both mitral and tricuspid valves; E03.9 Hypothyroidism, unspecified; K21.9 Gastro-esophageal reflux disease without esophagitis; E11.65 Type 2 diabetes mellitus with hyperglycemia; Z79.4 Long term (current) use of insulin; I42.9 Cardiomyopathy, unspecified; E78.5 Hyperlipidemia, unspecified; Z87.891 Personal history of nicotine dependence

== ENCOUNTER → 2017-07-25 08:52 | Outpatient (CLI) | payer MEDICARE, MEDICAID ==
[~2017-07-25] VITALS: Ht 152.4 cm; Wt 157.4 kg
[~2017-07-25 08:52] MED LIST changes: +LANOXIN250 MCG PO; +LEVOTHYROXINE50 MCG PO
[2017-07-25 10:00] VITALS: Ht 152.4 cm; Wt 157.4 kg
== END | disposition home or self-care (01) ==
LOC: D.FANS 05-29 09:00
DX: E66.01 Morbid (severe) obesity due to excess calories (principal)

== ENCOUNTER 2017-08-02 11:17 | Inpatient (IN) | payer MEDICARE, MEDICAID ==
[~2017-08-02] VITALS: Ht 152.4 cm; Wt 163.2 kg
[2017-08-02 18:11] LABS: BASOPHILS 0.1 % (0-2); EOSINOPHILS 0.3 % (0-7); HEMATOCRIT 37.8 % (36.0-48.0); HEMOGLOBIN 10.9 g/dL (12-16); IMMATURE GRANULOCYTES 0.7 % (0-5); LYMPHOCYTES 4.8 % (15-50); MCH 27.3 pg (26.0-34.0); MCHC 28.8 g/dL (31.0-37.0); MCV 94.7 fL (80.0-100.0); MEAN PLATELET VOLUME 9.2 fL (7.4-10.4); NEUTROPHILS 89.1 % (40-80); PLATELET COUNT 198 10x3/uL (130-400); RBC 3.99 10x6/uL (4.00-5.40); RDW 15.6 % (11.5-14.5); WBC 16.5 10x3/uL (4.8-10.8)
[2017-08-02 18:22] LABS: ALBUMIN 2.9 g/dL (3.4-5.0); ALKALINE PHOSPHATASE 92 U/L (46-116); ALT (SGPT) 18 U/L (10-68); CALCIUM 9.2 mg/dL (8.5-10.1); CHLORIDE - SERUM 98 mmol/L (98-107); CREATININE - SERUM 0.7 mg/dL (0.6-1.3); POTASSIUM - SERUM 4.7 mmol/L (3.5-5.1); PROTEIN - SERUM 7.4 g/dL (6.4-8.2); SODIUM 142 mmol/L (136-145); UREA NITROGEN 14 mg/dL (7-18); eGFR NON AFRICAN AMERICAN > 90 mL/min (90-120)
[2017-08-02 18:23] LABS: CALC OSMOLALITY 288 mosm/kg (275-300); GLUCOSE 186 mg/dL (74-106)
[2017-08-02 18:25] LABS: CARBON DIOXIDE 43.9 mmol/L (21.0-32.0)
[2017-08-02] MEDS ORDERED: COUMADIN5 MG PO (18:34)
[2017-08-02 18:36] VITALS: BP 118/64; BMI 69.0
[2017-08-02 22:44] VITALS: BP 122/50
[2017-08-03 00:59] VITALS: BP 122/58
[2017-08-03 03:17] LABS: APPEARANCE CLEAR (CLEAR); BILIRUBIN NEGATIVE (NEGATIVE); COLOR YELLOW (YELLOW); GLUCOSE NEGATIVE (NEGATIVE); KETONE NEGATIVE (NEGATIVE); NITRITE NEGATIVE (NEGATIVE); PROTEIN NEGATIVE (NEGATIVE); UROBILINOGEN NORMAL (NORMAL)
[2017-08-03 05:27] VITALS: BP 130/61
[2017-08-03 05:37] LABS: BASOPHILS 0 % (0-2); EOSINOPHILS 0 % (0-7); HEMATOCRIT 37.8 % (36.0-48.0); HEMOGLOBIN 11.1 g/dL (12-16); IMMATURE GRANULOCYTES 0.4 % (0-5); LYMPHOCYTES 4.3 % (15-50); MCH 27.3 pg (26.0-34.0); MCHC 29.4 g/dL (31.0-37.0); MCV 92.9 fL (80.0-100.0); MEAN PLATELET VOLUME 9.3 fL (7.4-10.4); MONOCYTES 3.4 % (2-11); NEUTROPHILS 91.9 % (40-80); PLATELET COUNT 214 10x3/uL (130-400); RBC 4.07 10x6/uL (4.00-5.40); RDW 15.1 % (11.5-14.5); WBC 13.8 10x3/uL (4.8-10.8)
[2017-08-03 05:59] LABS: ALKALINE PHOSPHATASE 95 U/L (46-116); ALT (SGPT) 17 U/L (10-68); CALCIUM 9.5 mg/dL (8.5-10.1); CHLORIDE - SERUM 93 mmol/L (98-107); CREATININE - SERUM 0.7 mg/dL (0.6-1.3); POTASSIUM - SERUM 4.1 mmol/L (3.5-5.1); PRO BNP 498 pg/mL (0-125); PROTEIN - SERUM 7.9 g/dL (6.4-8.2); SODIUM 142 mmol/L (136-145); eGFR NON AFRICAN AMERICAN > 90 mL/min (90-120)
[2017-08-03 06:04] LABS: CALC OSMOLALITY 292 mosm/kg (275-300); GLUCOSE 236 mg/dL (74-106); UREA NITROGEN 18 mg/dL (7-18)
[2017-08-03 06:05] LABS: CARBON DIOXIDE 49.3 mmol/L (21.0-32.0)
[2017-08-03 08:52] VITALS: BP 109/43
[2017-08-03 12:05] VITALS: Ht 152.4 cm; Wt 163.2 kg
[2017-08-03 12:07] VITALS: BP 130/53
[2017-08-03 18:02] VITALS: BP 125/57
[2017-08-03 19:00] VITALS: BP 114/48
[2017-08-04] VITALS: BP 117/60
[2017-08-04 04:00] VITALS: BP 126/59; BP 143/51
[2017-08-04 06:36] LABS: BASOPHILS 0 % (0-2); EOSINOPHILS 0 % (0-7); HEMOGLOBIN 11.4 g/dL (12-16); IMMATURE GRANULOCYTES 0.2 % (0-5); LYMPHOCYTES 4.2 % (15-50); MCH 27.3 pg (26.0-34.0); MEAN PLATELET VOLUME 9.4 fL (7.4-10.4); MONOCYTES 3.3 % (2-11); NEUTROPHILS 92.3 % (40-80); RBC 4.18 10x6/uL (4.00-5.40)
[2017-08-04 06:37] LABS: MCV 90.9 fL (80.0-100.0); PLATELET COUNT 302 10x3/uL (130-400); WBC 18.7 10x3/uL (4.8-10.8)
[2017-08-04 07:05] LABS: ANION GAP 7.4 mmol/L (8-16); BILIRUBIN - TOTAL 0.6 mg/dL (0.2-1.3); CALCIUM 9.5 mg/dL (8.5-10.1); CREATININE - SERUM 0.9 mg/dL (0.6-1.3); POTASSIUM - SERUM 3.3 mmol/L (3.5-5.1); PROTEIN - SERUM 7.2 g/dL (6.4-8.2)
[2017-08-04 07:07] LABS: CARBON DIOXIDE 51.9 mmol/L (21.0-32.0)
[2017-08-04 07:51] VITALS: BP 89/49
[2017-08-04 11:43] VITALS: BP 91/52
[2017-08-04 16:31] VITALS: BP 101/62
[2017-08-04 20:46] VITALS: BP 104/38
[2017-08-05 01:16] VITALS: BP 99/49
[2017-08-05 05:14] VITALS: BP 95/43
[2017-08-05 05:25] LABS: BASOPHILS 0 % (0-2); EOSINOPHILS 0 % (0-7); HEMATOCRIT 38.7 % (36.0-48.0); HEMOGLOBIN 11.5 g/dL (12-16); IMMATURE GRANULOCYTES 0.2 % (0-5); LYMPHOCYTES 9.3 % (15-50); MCH 27.2 pg (26.0-34.0); MCHC 29.7 g/dL (31.0-37.0); MCV 91.5 fL (80.0-100.0); MEAN PLATELET VOLUME 9.1 fL (7.4-10.4); MONOCYTES 11.7 % (2-11); NEUTROPHILS 78.8 % (40-80); PLATELET COUNT 353 10x3/uL (130-400); RBC 4.23 10x6/uL (4.00-5.40); RDW 15.2 % (11.5-14.5); WBC 16.7 10x3/uL (4.8-10.8)
[2017-08-05 07:15] LABS: ALBUMIN 2.8 g/dL (3.4-5.0); BILIRUBIN - TOTAL 0.46 mg/dL (0.2-1.3); CALCIUM 9.8 mg/dL (8.5-10.1); POTASSIUM - SERUM 3.2 mmol/L (3.5-5.1)
[2017-08-05 07:16] LABS: CREATININE - SERUM 1.2 mg/dL (0.6-1.3)
[2017-08-05 07:18] LABS: ANION GAP 6.3 mmol/L (8-16); CARBON DIOXIDE 50.9 mmol/L (21.0-32.0)
[2017-08-05 08:00] VITALS: BP 101/57
[2017-08-05 11:22] VITALS: BP 105/53
[2017-08-05 14:02] LABS: INR 0.92 (0.85-1.17); PROTIME 11.9 SECONDS (11.6-15.0)
[2017-08-05 16:06] VITALS: BP 97/49
[2017-08-05 20:00] VITALS: BP 101/39
[2017-08-06] VITALS: BP 112/49
[2017-08-06 04:00] VITALS: BP 95/47
[2017-08-06 06:43] LABS: BASOPHILS 0 % (0-2); EOSINOPHILS 2.2 % (0-7); HEMOGLOBIN 12.6 g/dL (12-16); IMMATURE GRANULOCYTES 0.2 % (0-5); LYMPHOCYTES 15.2 % (15-50); MCH 27.2 pg (26.0-34.0); MCV 90.7 fL (80.0-100.0); MEAN PLATELET VOLUME 8.8 fL (7.4-10.4); MONOCYTES 11.2 % (2-11); NEUTROPHILS 71.2 % (40-80); PLATELET COUNT 316 10x3/uL (130-400); RBC 4.63 10x6/uL (4.00-5.40); RDW 15.4 % (11.5-14.5)
[2017-08-06 06:44] LABS: WBC 11.3 10x3/uL (4.8-10.8)
[2017-08-06 06:55] LABS: ANION GAP 7.8 mmol/L (8-16); BILIRUBIN - TOTAL 0.6 mg/dL (0.2-1.3); CALCIUM 9.2 mg/dL (8.5-10.1); POTASSIUM - SERUM 3.8 mmol/L (3.5-5.1); PROTEIN - SERUM 7.2 g/dL (6.4-8.2)
[2017-08-06 07:00] VITALS: BP 123/85
[2017-08-06 07:27] LABS: INR 1.07 (0.85-1.17); PROTIME 13.5 SECONDS (11.6-15.0)
[2017-08-06 12:48] VITALS: BP 94/51
[2017-08-06 17:31] VITALS: BP 94/53
[2017-08-06 21:30] VITALS: BP 82/30
[2017-08-07] VITALS: BP 88/42
[2017-08-07 05:05] LABS: BASOPHILS 0.1 % (0-2); EOSINOPHILS 3.3 % (0-7); HEMOGLOBIN 11.7 g/dL (12-16); IMMATURE GRANULOCYTES 0.5 % (0-5); LYMPHOCYTES 14.6 % (15-50); MCH 27.1 pg (26.0-34.0); MCV 90.5 fL (80.0-100.0); NEUTROPHILS 69.5 % (40-80); PLATELET COUNT 290 10x3/uL (130-400); RBC 4.31 10x6/uL (4.00-5.40); RDW 15.7 % (11.5-14.5)
[2017-08-07 05:07] LABS: INR 1.1 (0.85-1.17); PROTIME 13.8 SECONDS (11.6-15.0)
[2017-08-07 05:12] LABS: ALBUMIN 2.6 g/dL (3.4-5.0); BILIRUBIN - TOTAL 0.4 mg/dL (0.2-1.3); CALCIUM 8.6 mg/dL (8.5-10.1); POTASSIUM - SERUM 4.1 mmol/L (3.5-5.1); PROTEIN - SERUM 6.8 g/dL (6.4-8.2)
[2017-08-07 05:21] LABS: ANION GAP 7.4 mmol/L (8-16); CARBON DIOXIDE 41.7 mmol/L (21.0-32.0); CREATININE - SERUM 3.1 mg/dL (0.6-1.3)
[2017-08-07 06:11] VITALS: BP 87/48
[2017-08-07 08:02] VITALS: BP 80/36
[2017-08-07 11:50] VITALS: BP 81/32
[2017-08-07 15:12] VITALS: BP 93/47
[2017-08-07 20:00] VITALS: BP 127/45
[2017-08-08] VITALS: BP 108/46
[2017-08-08 04:00] VITALS: BP 117/54
[2017-08-08 05:59] LABS: ANION GAP 7.2 mmol/L (8-16); CARBON DIOXIDE 39.8 mmol/L (21.0-32.0)
[2017-08-08 06:08] LABS: CREATININE - SERUM 1.5 mg/dL (0.6-1.3)
[2017-08-08 06:14] LABS: BASOPHILS 0 % (0-2); EOSINOPHILS 1.7 % (0-7); HEMATOCRIT 36.1 % (36.0-48.0); HEMOGLOBIN 10.9 g/dL (12-16); IMMATURE GRANULOCYTES 0.6 % (0-5); MCH 27.1 pg (26.0-34.0); MCHC 30.2 g/dL (31.0-37.0); MCV 89.8 fL (80.0-100.0); MEAN PLATELET VOLUME 8.9 fL (7.4-10.4); MONOCYTES 8.6 % (2-11); NEUTROPHILS 75.1 % (40-80); PLATELET COUNT 303 10x3/uL (130-400); RBC 4.02 10x6/uL (4.00-5.40); RDW 15.6 % (11.5-14.5); WBC 13.9 10x3/uL (4.8-10.8)
[2017-08-08 07:39] VITALS: BP 98/45
[2017-08-08 10:48] VITALS: BP 97/47
[2017-08-08 15:21] VITALS: BP 121/58
[2017-08-08 19:00] VITALS: BP 127/54
[2017-08-09] VITALS: BP 100/43
[2017-08-09 04:00] VITALS: BP 112/54
[2017-08-09 06:32] LABS: BASOPHILS 0.1 % (0-2); EOSINOPHILS 3.8 % (0-7); HEMATOCRIT 37.6 % (36.0-48.0); HEMOGLOBIN 11.3 g/dL (12-16); IMMATURE GRANULOCYTES 1.2 % (0-5); LYMPHOCYTES 18.9 % (15-50); MCH 27.4 pg (26.0-34.0); MCHC 30.1 g/dL (31.0-37.0); MEAN PLATELET VOLUME 8.6 fL (7.4-10.4); MONOCYTES 9.1 % (2-11); NEUTROPHILS 66.9 % (40-80); PLATELET COUNT 295 10x3/uL (130-400); RBC 4.13 10x6/uL (4.00-5.40); RDW 15.2 % (11.5-14.5); WBC 13.7 10x3/uL (4.8-10.8)
[2017-08-09 06:36] LABS: CREATININE - URINE 41.6 mg/dL (30-125)
[2017-08-09 06:39] LABS: ANION GAP 9.3 mmol/L (8-16); CALCIUM 9.7 mg/dL (8.5-10.1); CARBON DIOXIDE 38.8 mmol/L (21.0-32.0); POTASSIUM - SERUM 4.1 mmol/L (3.5-5.1)
[2017-08-09 06:40] LABS: CREATININE - SERUM 0.9 mg/dL (0.6-1.3)
[2017-08-09 08:07] VITALS: BP 128/61
[2017-08-09 11:10] VITALS: BP 116/60
[2017-08-09 15:27] VITALS: BP 122/66
[2017-08-09 20:00] VITALS: BP 132/52
[2017-08-10] VITALS: BP 112/60
[2017-08-10 04:00] VITALS: BP 124/64
[2017-08-10 06:43] LABS: BASOPHILS 0 % (0-2); EOSINOPHILS 2.7 % (0-7); HEMATOCRIT 36.3 % (36.0-48.0); LYMPHOCYTES 21.8 % (15-50); MCH 27.2 pg (26.0-34.0); MCHC 30.3 g/dL (31.0-37.0); MCV 89.9 fL (80.0-100.0); MEAN PLATELET VOLUME 8.5 fL (7.4-10.4); MONOCYTES 8.6 % (2-11); NEUTROPHILS 65.9 % (40-80); PLATELET COUNT 277 10x3/uL (130-400); RBC 4.04 10x6/uL (4.00-5.40); RDW 14.9 % (11.5-14.5); WBC 14.6 10x3/uL (4.8-10.8)
[2017-08-10 06:52] LABS: CALC OSMOLALITY 285 mosm/kg (275-300); CALCIUM 9.3 mg/dL (8.5-10.1); CHLORIDE - SERUM 98 mmol/L (98-107); CREATININE - SERUM 0.8 mg/dL (0.6-1.3); GLUCOSE 115 mg/dL (74-106); POTASSIUM - SERUM 3.7 mmol/L (3.5-5.1); SODIUM 138 mmol/L (136-145); UREA NITROGEN 38 mg/dL (7-18); eGFR NON AFRICAN AMERICAN 79 mL/min (90-120)
[2017-08-10 06:55] LABS: INR 1.27 (0.85-1.17); PROTIME 15.5 SECONDS (11.6-15.0)
[2017-08-10 07:48] VITALS: BP 110/54
[2017-08-10] MEDS ORDERED: BUMEX 1 MG TAB1 MG PO (08:24)
[2017-08-10 11:39] VITALS: BP 123/56
[2017-08-10 12:16] LABS: OSMOLALITY - URINE 607 (())
== END 2017-08-10 15:28 | disposition home health service (06) | DRG 291 ==
LOC: D.ER 11:17 → D.M2 15:19
PROVIDERS: Emergency Medicine; Internal Medicine Nephrology; Internal Medicine Pulmonary Disease
DX: I11.0 Hypertensive heart disease with heart failure (principal); J96.02 Acute respiratory failure with hypercapnia; J96.01 Acute respiratory failure with hypoxia; J44.1 Chronic obstructive pulmonary disease with (acute) exacerbation; N17.9 Acute kidney failure, unspecified; E66.2 Morbid (severe) obesity with alveolar hypoventilation; Z68.44 Body mass index [BMI] 60.0-69.9, adult; I50.23 Acute on chronic systolic (congestive) heart failure; I42.9 Cardiomyopathy, unspecified; E11.65 Type 2 diabetes mellitus with hyperglycemia; K21.9 Gastro-esophageal reflux disease without esophagitis; E03.9 Hypothyroidism, unspecified; J32.9 Chronic sinusitis, unspecified; I07.1 Rheumatic tricuspid insufficiency; E78.5 Hyperlipidemia, unspecified

== ENCOUNTER 2017-09-08 15:36 | Observation (INO) | payer MEDICARE, MEDICAID ==
[~2017-09-08] VITALS: Ht 152.4 cm; Wt 161.9 kg
[2017-09-08 16:40] LABS: APPEARANCE CLOUDY (CLEAR); BILIRUBIN NEGATIVE (NEGATIVE); COLOR YELLOW (YELLOW); GLUCOSE NEGATIVE (NEGATIVE); KETONE NEGATIVE (NEGATIVE); NITRITE NEGATIVE (NEGATIVE); PH 5.5 (5.0-6.0); PROTEIN TRACE mg/dL (NEGATIVE); UROBILINOGEN NORMAL (NORMAL)
[2017-09-08 16:46] LABS: BASOPHILS 0.3 % (0-2); EOSINOPHILS 3.3 % (0-7); HEMATOCRIT 38.2 % (36.0-48.0); IMMATURE GRANULOCYTES 1.3 % (0-5); LYMPHOCYTES 17.9 % (15-50); MCH 26.3 pg (26.0-34.0); MCHC 28.8 g/dL (31.0-37.0); MCV 91.4 fL (80.0-100.0); MONOCYTES 8.3 % (2-11); NEUTROPHILS 68.9 % (40-80); PLATELET COUNT 291 10x3/uL (130-400); RBC 4.18 10x6/uL (4.00-5.40); RDW 15.5 % (11.5-14.5); WBC 11.9 10x3/uL (4.8-10.8)
[2017-09-08 16:46] LABS: BACTERIA FEW /hpf (NONE SEEN); GRANULAR CAST 0-5 /lpf (NONE SEEN); HYALINE CAST 0-5 /lpf (NONE SEEN); RED CELLS - URINE 0-5 /hpf (0-5); WHITE CELLS - URINE 0-5 /hpf (0-5)
[2017-09-08 17:01] LABS: ALBUMIN 2.9 g/dL (3.4-5.0); ALKALINE PHOSPHATASE 101 U/L (46-116); ALT (SGPT) 16 U/L (10-68); BILIRUBIN - TOTAL 0.19 mg/dL (0.2-1.3); CALC OSMOLALITY 281 mosm/kg (275-300); CARBON DIOXIDE 38.7 mmol/L (21.0-32.0); CHLORIDE - SERUM 99 mmol/L (98-107); CREATININE - SERUM 0.7 mg/dL (0.6-1.3); GLUCOSE 144 mg/dL (74-106); POTASSIUM - SERUM 4.2 mmol/L (3.5-5.1); PROTEIN - SERUM 6.7 g/dL (6.4-8.2); SODIUM 140 mmol/L (136-145); UREA NITROGEN 13 mg/dL (7-18); eGFR NON AFRICAN AMERICAN > 90 mL/min (90-120)
[2017-09-08 17:10] LABS: PRO BNP 1956 pg/mL (0-125)
[2017-09-08 20:00] VITALS: BP 104/71
[2017-09-09] VITALS (7 sets, daily range): BP systolic 102–147; BP diastolic 48–71; BMI 68.1
[2017-09-10 04:00] VITALS: BP 113/87
[2017-09-10 04:51] LABS: BASOPHILS 0.1 % (0-2); EOSINOPHILS 2.5 % (0-7); HEMATOCRIT 37.7 % (36.0-48.0); HEMOGLOBIN 10.9 g/dL (12-16); IMMATURE GRANULOCYTES 1.2 % (0-5); LYMPHOCYTES 23.4 % (15-50); MCH 26.3 pg (26.0-34.0); MCHC 28.9 g/dL (31.0-37.0); MCV 91.1 fL (80.0-100.0); MEAN PLATELET VOLUME 8.7 fL (7.4-10.4); NEUTROPHILS 59.8 % (40-80); RBC 4.14 10x6/uL (4.00-5.40); RDW 15.5 % (11.5-14.5); WBC 9.7 10x3/uL (4.8-10.8)
[2017-09-10 04:55] LABS: PLATELET COUNT 350 10x3/uL (130-400)
[2017-09-10 05:11] LABS: INR 1.06 (0.85-1.17); PROTIME 13.4 SECONDS (11.6-15.0)
[2017-09-10 05:13] LABS: D-DIMER-QUANTITATIVE < 0.27 ug/mLFEU (0.20-0.54)
[2017-09-10 05:26] LABS: CALCIUM 8.8 mg/dL (8.5-10.1); CHLORIDE - SERUM 95 mmol/L (98-107); CREATININE - SERUM 0.8 mg/dL (0.6-1.3); GLUCOSE 143 mg/dL (74-106); MAGNESIUM - SERUM 1.6 mg/dL (1.8-2.4); PHOSPHOROUS 3.7 mg/dL (2.5-4.9); PRO BNP 459 pg/mL (0-125); SODIUM 141 mmol/L (136-145); eGFR NON AFRICAN AMERICAN 79 mL/min (90-120)
[2017-09-10 05:37] LABS: CALC OSMOLALITY 284 mosm/kg (275-300); POTASSIUM - SERUM 3.5 mmol/L (3.5-5.1); UREA NITROGEN 19 mg/dL (7-18)
[2017-09-10 05:38] LABS: CARBON DIOXIDE 46.5 mmol/L (21.0-32.0)
[2017-09-10 09:06] VITALS: BP 111/52
[2017-09-10 13:02] VITALS: Ht 152.4 cm; Wt 161.9 kg
[2017-09-10 13:22] VITALS: BP 113/54
[2017-09-10 17:29] VITALS: BP 102/56
[2017-09-10 20:00] VITALS: BP 128/61
[2017-09-11] VITALS: BP 124/62
[2017-09-11 04:00] VITALS: BP 120/59
[2017-09-11 06:00] LABS: INR 1.03 (0.85-1.17); PROTIME 13.1 SECONDS (11.6-15.0)
[2017-09-11 06:09] LABS: HEMATOCRIT 38.4 % (36.0-48.0); HEMOGLOBIN 11.4 g/dL (12-16); LYMPHOCYTES 16.3 % (15-50); MCHC 29.7 g/dL (31.0-37.0); MEAN PLATELET VOLUME 8.5 fL (7.4-10.4); NEUTROPHILS 73.7 % (40-80); RBC 4.38 10x6/uL (4.00-5.40); RDW 14.6 % (11.5-14.5)
[2017-09-11 06:13] LABS: MCV 87.7 fL (80.0-100.0); WBC 12.7 10x3/uL (4.8-10.8)
[2017-09-11 06:14] LABS: PLATELET COUNT 438 10x3/uL (130-400)
[2017-09-11 06:21] LABS: ANION GAP 8.4 mmol/L (8-16); BILIRUBIN - TOTAL 0.3 mg/dL (0.2-1.3); CALCIUM 8.9 mg/dL (8.5-10.1); CARBON DIOXIDE 38.9 mmol/L (21.0-32.0); CREATININE - SERUM 0.9 mg/dL (0.6-1.3); PROTEIN - SERUM 6.8 g/dL (6.4-8.2)
[2017-09-11 06:25] LABS: POTASSIUM - SERUM 4.3 mmol/L (3.5-5.1)
[2017-09-11 09:28] VITALS: BP 115/65
[2017-09-11 12:41] VITALS: BP 118/62
[2017-09-11 16:39] VITALS: BP 117/49
[2017-09-11 20:00] VITALS: BP 132/51
[2017-09-12] VITALS: BP 136/69
[2017-09-12 04:00] VITALS: BP 140/72
[2017-09-12 05:56] LABS: BASOPHILS 0.1 % (0-2); EOSINOPHILS 0.3 % (0-7); HEMATOCRIT 38.6 % (36.0-48.0); HEMOGLOBIN 11.2 g/dL (12-16); IMMATURE GRANULOCYTES 0.7 % (0-5); MCH 25.7 pg (26.0-34.0); MCV 88.7 fL (80.0-100.0); MONOCYTES 11.8 % (2-11); NEUTROPHILS 72.1 % (40-80); PLATELET COUNT 383 10x3/uL (130-400); RBC 4.35 10x6/uL (4.00-5.40); RDW 15.1 % (11.5-14.5); WBC 13.7 10x3/uL (4.8-10.8)
[2017-09-12 06:23] LABS: INR 1.16 (0.85-1.17); PROTIME 14.4 SECONDS (11.6-15.0)
[2017-09-12 06:37] LABS: ALKALINE PHOSPHATASE 83 U/L (46-116); ALT (SGPT) 15 U/L (10-68); BILIRUBIN - TOTAL 0.28 mg/dL (0.2-1.3); CALC OSMOLALITY 287 mosm/kg (275-300); CALCIUM 8.9 mg/dL (8.5-10.1); CARBON DIOXIDE 37.9 mmol/L (21.0-32.0); CHLORIDE - SERUM 94 mmol/L (98-107); CREATININE - SERUM 0.8 mg/dL (0.6-1.3); GLUCOSE 139 mg/dL (74-106); POTASSIUM - SERUM 3.7 mmol/L (3.5-5.1); PROTEIN - SERUM 7.4 g/dL (6.4-8.2); SODIUM 139 mmol/L (136-145); UREA NITROGEN 34 mg/dL (7-18); eGFR NON AFRICAN AMERICAN 79 mL/min (90-120)
[2017-09-12 08:45] VITALS: BP 104/55
[2017-09-12 13:03] VITALS: BP 104/55
[2017-09-12] MEDS ORDERED: DALIRESP500 MCG PO (16:18)
[2017-09-12] MEDS ORDERED: MUCINEX DM ER1 EAC1 PO (16:18)
[2017-09-12] MEDS ORDERED: BENZONATATE200 MG PO (16:18)
[2017-09-12] MEDS ORDERED: DOXYCYCLINE HY100 M2 PO (16:22)
[2017-09-12] MEDS ORDERED: PREDNISONE10 MG PO (16:23)
[2017-09-12] MEDS ORDERED: LOVENOX INJ100 MG/ML SC (16:23)
[2017-09-12] MEDS ORDERED: FLORAJEN3 CAPS460 MG PO (16:25)
[2017-09-12] MEDS ORDERED: COUMADIN10 MG PO (16:25)
[2017-09-12 16:59] VITALS: BP 104/49
== END 2017-09-12 16:50 | disposition home or self-care (01) ==
LOC: D.ER 15:36 → D.MS 18:53 → D.EDHOLD 18:53 → OBSVTIME 18:53 → D.MS 18:53 → D.SDCHOLD 09-11 11:11 → D.MS 09-12 16:50
PROVIDERS: Emergency Medicine; Internal Medicine Pulmonary Disease; Nurse Practitioner Family
DX: I11.0 Hypertensive heart disease with heart failure (principal); I50.23 Acute on chronic systolic (congestive) heart failure; E78.5 Hyperlipidemia, unspecified; E66.2 Morbid (severe) obesity with alveolar hypoventilation; Z68.44 Body mass index [BMI] 60.0-69.9, adult; I42.9 Cardiomyopathy, unspecified; E11.65 Type 2 diabetes mellitus with hyperglycemia; N17.9 Acute kidney failure, unspecified; E03.9 Hypothyroidism, unspecified; I07.1 Rheumatic tricuspid insufficiency; Z91.19 Patient's noncompliance with other medical treatment and regimen; J44.1 Chronic obstructive pulmonary disease with (acute) exacerbation; J96.22 Acute and chronic respiratory failure with hypercapnia; J96.21 Acute and chronic respiratory failure with hypoxia; G72.81 Critical illness myopathy

== ENCOUNTER 2017-09-24 14:34 | Inpatient (IN) | payer MEDICARE, MEDICAID ==
[~2017-09-24] VITALS: Ht 152.4 cm; Wt 150.1 kg
--- NOTE | ~2017-09-24 | EC ---
PATIENT:DOUGLAS HILLS DATE OF SERVICE: 09/24/17 SEX: F MEDICAL RECORD: [id number] DATE OF : 63 LOCATION:D.MS Nathan AGE OF PATIENT: 52 ADMISSION DATE: 09/24/17 REFERRING PHYSICIAN: INTERPRETING PHYSICIAN: RANDY SCHWARZ MD ECHOCARDIOGRAM REPORT ECHO CHARGES 5 ECHO LIMITED CLINICAL DIAGNOSIS: RESP FAILURE, ASSESS EF ECHOCARDIOGRAPHIC MEASUREMENTS (adult normal given) AC root (d.<3.7cm) 4.0 cm LV Septum d (<1.2 cm> 2.0 cm Valve Excursion 1.6 cm LV Septum (systole) 2.3 cm Left Atria (s.<4.0cm> 4.1 cm LVPW d(<1.2cm) 2.0 cm RV (d.<2.3cm) 4.0 cm LVPW (sytole) 2.2 cm LV diastole(<5.6CM) 4.5 cm MV E-F(>70mm/sec) cm LV systole 3.2 cm LVOT Diameter 2.0 cm MV exc.(>10mm) 1.5 cm Est.ejection fraction (50-75%) % Pericardial Effusion N DOPPLER: LVIT cm/sec A cm/sec E cm/sec LA cm/sec RVSP 18 mmHg LVOT cm/sec AOP1/2T m/s Asc. Ao cm/sec RVOT 111 cm/sec RA cm/sec PA 171 cm/sec AV Gradient Peak mmHg AV Mean mmHg AV Area cm MV Gradient Peak mmHg MV Mean mmHg MV Area cm COMMENTS: Bean Roaster: Telma DC Wireline Supervisor: David Schwarz TAPE# PACS DATE OF SERVICE: 09/25/2017 PROCEDURE: Transthoracic echocardiogram. FINDINGS: 1. Left ventricle has left ventricular hypertrophy. Inflow characteristics consistent with diastolic dysfunction. The overall ejection fraction appears to be preserved at 55% to 60%, even hyperdynamic in some views. 2. The left atrium appears to be dilated. 3. The mitral valve is not well visualized, but grossly normal with no obvious ECHOCARDIOGRAM REPORT [id number] [place] mitral regurgitation. 4. Tricuspid valve appears to be normal. It is poorly visualized, but there is no evidence of significant tricuspid regurgitation. The RVSP appears to be normal to low. 5. The pulmonic valve is normal. 6. The right ventricle is dilated. 7. The right atrium is not well visualized. CONCLUSION: It is a difficult to view echocardiogram, but grossly appears to be normal to hyperdynamic with the evidence of possible left ventricular hypertrophy. TRANSINT:[id number] Voice Confirmation ID: [id number] DOCUMENT ID: [id number] 10/02/2017 Edited to correct date of service, dm. RADNY SCHWARZ MD at 1001 CC: [id number] DICTATION DATE: 09/26/17 0835 [employer] MECHANIC: 09/26/17 1056 DIS IN 10/03/17 [facility] [address] [place] [place] [address]
--- NOTE | ~2017-09-24 | OP ---
PATIENT NAME: DOUGLAS HILLS MEDICAL RECORD: [id number] :63 LOCATION:D.MS Ramos2215 ADMISSION DATE:09/24/17 SURGEON: ALIZE LAMB MD DATE OF OPERATION: 09/26/2017 PROCEDURE: Fiberoptic bronchoscopy. INDICATION: The patient is orally intubated. There is new infiltrate, possible atelectasis in the right lower lobe. Fiberoptic bronchoscopy was carried out to obtain specimen for culture and sensitivity as well as to remove the mucus plug. MONITORING: EKG, pulse, and blood pressure were monitored throughout the procedure. PROCEDURE: The patient is orally intubated. The bronchoscope passed through the ET tube. The ricky was sharp. There were thick white yellowish secretion on the right side in the right main bronchus and right lower lobe segments. The right upper lobe subsegment to the right upper lobe, right middle lobe, right lower lobe within normal range. No endobronchial lesion was seen. There was bronchitic changes. The left main bronchus, the subsegment to the left upper lobe lingula, left lower lobe within normal limits. There was a bronchitic change. There were also white yellowish secretion on the left side. Specimen washing was obtained and sent for routine culture and sensitivity, AFB, and fungus and cytology. Overall, the patient tolerated the procedure very well. TRANSINT:[id number] Voice Confirmation ID: [id number] DOCUMENT ID: [id number] ALIZE LAMB MD at 1340 CC: KRISH MESA [id number] DICTATION DATE: 09/26/17 1254 DIAMOND POWDER TECHNICIAN: 09/26/17 1341 DIS IN 10/03/17 [facility] [address] [place] [address]
--- NOTE | ~2017-09-24 | CN ---
PATIENT NAME:DOUGLAS HILLS MEDICAL RECORD: [id number] : 63 LOCATION:D.MS Carranza ADMIT DATE: 09/24/17 ACCOUNT: [id number] CONSULTING PHYSICIAN: ALIZE LAMB MD REFERRING PHYSICIAN: KRISH MESA MD DATE OF CONSULTATION: 09/25/2017 CONSULT REQUESTING PHYSICIAN: Krish Mesa MD REASON FOR CONSULTATION: Acute exacerbation of chronic obstructive pulmonary disease, respiratory failure, mechanical ventilation. HISTORY OF PRESENT ILLNESS: Ms. Hills is a 52-year-old female, very well known to me. She has recurrent hospitalization for acute hypercarbic hypercapnic respiratory failure. The patient came into the ER yesterday morning in respiratory distress and ABG was done and her pCO2 was 113 and the pH was 7.25. The patient was orally intubated. Now, the patient is orally intubated and sedated. The history was taken mainly by reviewing the patient's note as well as talking to the nursing staff. PAST MEDICAL HISTORY: 1. COPD. 2. Asthma. 3. Congestive heart failure with EF 35% to 40%. 4. Allergic rhinitis. 5. Morbid obesity. 6. Type 2 diabetes mellitus. 7. Sleep apnea. 8. Obesity hypoventilation syndrome. The patient is noncompliant with the BiPAP. PAST SURGICAL HISTORY: 1. She has cholecystectomy. 2. Hysterectomy. 3. TWO . ALLERGIES: SHE IS ALLERGIC TO LYRICA, TRAMADOL, AND LEXAPRO. CURRENT MEDICATIONS: On Akimbo was reviewed. PERSONAL AND SOCIAL HISTORY: The patient is a nonsmoker, nondrinker. FAMILY HISTORY: Noncontributory. PHYSICAL EXAMINATION: GENERAL: Now, the patient is orally intubated and sedated. VITAL SIGNS: The blood pressure is 116/63, pulse is 84, respiration 20, temperature is 100, and SpO2 is 96% on SIMV mechanical ventilation, 50% oxygen. HEENT: Conjunctivae is pink. Sclerae nonicteric. NECK: Supple. No JVD. CHEST: Excursion is minimal on both sides. There are bibasilar crackles. No wheezing. HEART: Rhythm regular, normal sound, no murmur. ABDOMEN: Soft, bowel sounds present. No hepatosplenomegaly. RECTAL: Deferred. CONSULT REPORT [id number] DOUGLAS HILLS EXTREMITIES: No cyanosis, no clubbing, no pedal edema. SKIN: Warm, normal turgor. CENTRAL NERVOUS SYSTEM: The patient is orally intubated and sedated. There is no obvious cranial nerve abnormality. IMAGING: Chest radiograph: There are increased interstitial markings. LABORATORY DATA: CBC: WBC 16.3, hemoglobin 10.3, hematocrit 36.3, the platelet count 207. Chemistry: Sodium 137, potassium 4.1, bicarb is 40.6, the BUN 13, creatinine 0.8. ABG: The pH is 7.25, pCO2 is 113.5, pO2 is 64. IMPRESSION: 1. Deitf-ci-nadcfzh hypoxic hypercapnic respiratory failure, respiratory acidosis secondary to fqoxe-mt-gixavzc hypoxic hypercapnic respiratory failure. 2. Acute exacerbation of chronic obstructive pulmonary disease. 3. Pulmonary edema. 4. Congestive heart failure with chronic systolic dysfunction. 5. Possible pneumonitis. 6. Leukocytosis. 7. Obesity hypoventilation syndrome with obstructive sleep apnea. The patient is noncompliant. 8. Non-compensated respiratory acidosis. RECOMMENDATION: 1. Continue mechanical ventilation, adjust the setting. 2. Start empiric Levaquin. 3. Check the sputum for culture and sensitivity. 4. Albuterol and ipratropium nebulizer. 5. Brovana and budesonide nebulizer. 6. Start on IV corticosteroids. 7. Increase the Lasix to 40 mg IV b.i.d. 8. We will start oral nutrition. 9. GI and DVT prophylaxis. 10. Follow up labs and chest radiograph. Dr. Mesa, thank you for involving me in the care of Ms. Hills. The critical care time is 45 minutes. TRANSINT:[id number] Voice Confirmation ID: [id number] DOCUMENT ID: [id number] ALIZE LAMB MD at 1340 CC: KRISH MESA [id number] DICTATION DATE: 09/25/17 1330 RESTORATIVE AIDE: 09/25/17 1408 DIS IN 10/03/17 [facility] [address] [place] [address]
[~2017-09-24 14:34] MED LIST changes: +COUMADIN10 MG PO; +LOVENOX INJ100 MG/ML SC
[2017-09-24 16:10] LABS: BASOPHILS 0.1 % (0-2); EOSINOPHILS 1.6 % (0-7); HEMATOCRIT 38.1 % (36.0-48.0); HEMOGLOBIN 10.7 g/dL (12-16); IMMATURE GRANULOCYTES 0.8 % (0-5); LYMPHOCYTES 11.2 % (15-50); MCH 26.2 pg (26.0-34.0); MCHC 28.1 g/dL (31.0-37.0); MCV 93.4 fL (80.0-100.0); MEAN PLATELET VOLUME 8.8 fL (7.4-10.4); MONOCYTES 6.4 % (2-11); NEUTROPHILS 79.9 % (40-80); RBC 4.08 10x6/uL (4.00-5.40); RDW 16.2 % (11.5-14.5); WBC 14.9 10x3/uL (4.8-10.8)
[2017-09-24 16:13] LABS: PLATELET COUNT 188 10x3/uL (130-400)
[2017-09-24 16:20] LABS: ALBUMIN 2.9 g/dL (3.4-5.0); ALKALINE PHOSPHATASE 81 U/L (46-116); ALT (SGPT) 22 U/L (10-68); BILIRUBIN - TOTAL 0.59 mg/dL (0.2-1.3); CALC OSMOLALITY 274 mosm/kg (275-300); CALCIUM 8.5 mg/dL (8.5-10.1); CHLORIDE - SERUM 94 mmol/L (98-107); CREATININE - SERUM 0.7 mg/dL (0.6-1.3); GLUCOSE 149 mg/dL (74-106); POTASSIUM - SERUM 4.3 mmol/L (3.5-5.1); PROTEIN - SERUM 7.1 g/dL (6.4-8.2); SODIUM 137 mmol/L (136-145); UREA NITROGEN 8 mg/dL (7-18); eGFR NON AFRICAN AMERICAN > 90 mL/min (90-120)
[2017-09-24 16:23] LABS: CARBON DIOXIDE 45.3 mmol/L (21.0-32.0)
[2017-09-24 16:49] LABS: CREATINE KINASE 13 UL (21-215); PRO BNP 578 pg/mL (0-125)
[2017-09-24 19:00] VITALS: BP 131/76
[2017-09-24 20:00] VITALS: BP 116/73
[2017-09-24 20:09] VITALS: BP 131/87; BMI 68.5
[2017-09-24 20:50] LABS: APPEARANCE CLEAR (CLEAR); BILIRUBIN NEGATIVE (NEGATIVE); COLOR YELLOW (YELLOW); GLUCOSE NEGATIVE (NEGATIVE); KETONE NEGATIVE (NEGATIVE); NITRITE NEGATIVE (NEGATIVE); PROTEIN NEGATIVE (NEGATIVE); UROBILINOGEN NORMAL (NORMAL)
[2017-09-24 21:00] VITALS: BP 117/62
[2017-09-24 22:00] VITALS: BP 112/62
[2017-09-24 23:00] VITALS: BP 121/62
[2017-09-25] VITALS (24 sets, daily range): BP systolic 113–135; BP diastolic 60–73; BMI 68.4
[2017-09-25 04:53] LABS: BASOPHILS 0.1 % (0-2); EOSINOPHILS 0.1 % (0-7); HEMATOCRIT 36.3 % (36.0-48.0); HEMOGLOBIN 10.3 g/dL (12-16); LYMPHOCYTES 6.8 % (15-50); MCH 25.9 pg (26.0-34.0); MCHC 28.4 g/dL (31.0-37.0); MEAN PLATELET VOLUME 9.3 fL (7.4-10.4); MONOCYTES 2.6 % (2-11); NEUTROPHILS 89.4 % (40-80); PLATELET COUNT 207 10x3/uL (130-400); RBC 3.98 10x6/uL (4.00-5.40); RDW 15.8 % (11.5-14.5); WBC 16.3 10x3/uL (4.8-10.8)
[2017-09-25 04:59] LABS: MCV 91.2 fL (80.0-100.0)
[2017-09-25 05:32] LABS: ALBUMIN 2.9 g/dL (3.4-5.0); ALKALINE PHOSPHATASE 74 U/L (46-116); ALT (SGPT) 23 U/L (10-68); BILIRUBIN - TOTAL 0.68 mg/dL (0.2-1.3); CALCIUM 8.8 mg/dL (8.5-10.1); CHLORIDE - SERUM 93 mmol/L (98-107); CREATININE - SERUM 0.8 mg/dL (0.6-1.3); POTASSIUM - SERUM 4.1 mmol/L (3.5-5.1); PROTEIN - SERUM 6.3 g/dL (6.4-8.2); SODIUM 137 mmol/L (136-145); eGFR NON AFRICAN AMERICAN 79 mL/min (90-120)
[2017-09-25 05:34] LABS: CALC OSMOLALITY 281 mosm/kg (275-300); CARBON DIOXIDE 40.6 mmol/L (21.0-32.0); GLUCOSE 248 mg/dL (74-106); UREA NITROGEN 13 mg/dL (7-18)
[2017-09-26] VITALS (24 sets, daily range): BP systolic 97–174; BP diastolic 56–86; Ht 152.4 cm; Wt 150.1 kg
[2017-09-26 04:30] LABS: BASOPHILS 0 % (0-2); EOSINOPHILS 0 % (0-7); HEMATOCRIT 37.9 % (36.0-48.0); HEMOGLOBIN 11.3 g/dL (12-16); IMMATURE GRANULOCYTES 0.9 % (0-5); LYMPHOCYTES 6.9 % (15-50); MCH 26.8 pg (26.0-34.0); MCHC 29.8 g/dL (31.0-37.0); MCV 89.8 fL (80.0-100.0); MEAN PLATELET VOLUME 9.2 fL (7.4-10.4); MONOCYTES 7.3 % (2-11); NEUTROPHILS 84.9 % (40-80); RBC 4.22 10x6/uL (4.00-5.40); RDW 16.5 % (11.5-14.5); WBC 14.8 10x3/uL (4.8-10.8)
[2017-09-26 04:41] LABS: PLATELET COUNT 251 10x3/uL (130-400)
[2017-09-26 04:53] LABS: ALBUMIN 3.1 g/dL (3.4-5.0); BILIRUBIN - TOTAL 0.51 mg/dL (0.2-1.3); CALCIUM 9.5 mg/dL (8.5-10.1); CARBON DIOXIDE 33.5 mmol/L (21.0-32.0); PROTEIN - SERUM 7.6 g/dL (6.4-8.2)
[2017-09-26 04:55] LABS: ANION GAP 14.7 mmol/L (8-16); CREATININE - SERUM 1.1 mg/dL (0.6-1.3); POTASSIUM - SERUM 3.2 mmol/L (3.5-5.1)
[2017-09-27] VITALS (16 sets, daily range): BP systolic 96–135; BP diastolic 53–82
[2017-09-27 04:52] LABS: BASOPHILS 0.1 % (0-2); EOSINOPHILS 0.1 % (0-7); HEMATOCRIT 39.2 % (36.0-48.0); HEMOGLOBIN 11.9 g/dL (12-16); IMMATURE GRANULOCYTES 0.7 % (0-5); LYMPHOCYTES 6.6 % (15-50); MCH 26.6 pg (26.0-34.0); MCHC 30.4 g/dL (31.0-37.0); MEAN PLATELET VOLUME 9.5 fL (7.4-10.4); MONOCYTES 8.2 % (2-11); NEUTROPHILS 84.3 % (40-80); PLATELET COUNT 275 10x3/uL (130-400); RBC 4.48 10x6/uL (4.00-5.40); RDW 16.9 % (11.5-14.5); WBC 15.1 10x3/uL (4.8-10.8)
[2017-09-27 05:12] LABS: MCV 87.5 fL (80.0-100.0)
[2017-09-27 05:32] LABS: ALBUMIN 3.2 g/dL (3.4-5.0); ANION GAP 17.5 mmol/L (8-16); BILIRUBIN - TOTAL 0.5 mg/dL (0.2-1.3); CALCIUM 8.9 mg/dL (8.5-10.1); CARBON DIOXIDE 26.8 mmol/L (21.0-32.0); CREATININE - SERUM 1.1 mg/dL (0.6-1.3); POTASSIUM - SERUM 3.3 mmol/L (3.5-5.1); PROTEIN - SERUM 7.9 g/dL (6.4-8.2)
[2017-09-28 04:00] VITALS: BP 109/64
[2017-09-28 05:05] LABS: BASOPHILS 0.1 % (0-2); EOSINOPHILS 0.1 % (0-7); HEMATOCRIT 41.8 % (36.0-48.0); HEMOGLOBIN 12.9 g/dL (12-16); IMMATURE GRANULOCYTES 0.7 % (0-5); LYMPHOCYTES 7.9 % (15-50); MCH 26.8 pg (26.0-34.0); MCHC 30.9 g/dL (31.0-37.0); MCV 86.9 fL (80.0-100.0); MEAN PLATELET VOLUME 8.9 fL (7.4-10.4); MONOCYTES 9.5 % (2-11); NEUTROPHILS 81.7 % (40-80); PLATELET COUNT 263 10x3/uL (130-400); RBC 4.81 10x6/uL (4.00-5.40); RDW 16.5 % (11.5-14.5); WBC 17.8 10x3/uL (4.8-10.8)
[2017-09-28 05:12] LABS: ALBUMIN 3.5 g/dL (3.4-5.0); ANION GAP 14.4 mmol/L (8-16); BILIRUBIN - TOTAL 0.9 mg/dL (0.2-1.3); CALCIUM 9.6 mg/dL (8.5-10.1); CARBON DIOXIDE 29.3 mmol/L (21.0-32.0); POTASSIUM - SERUM 3.7 mmol/L (3.5-5.1); PROTEIN - SERUM 8.3 g/dL (6.4-8.2)
[2017-09-28 08:43] VITALS: BP 115/63
[2017-09-28 12:46] VITALS: BP 129/75
[2017-09-28 16:26] VITALS: BP 102/59
[2017-09-28 18:09] LABS: AFB SPECIMEN PROCESSING Concentration (())
[2017-09-28 20:00] VITALS: BP 113/66
[2017-09-29 04:00] VITALS: BP 124/76
[2017-09-29 04:53] LABS: BASOPHILS 0 % (0-2); EOSINOPHILS 0.2 % (0-7); HEMATOCRIT 40.1 % (36.0-48.0); HEMOGLOBIN 12.3 g/dL (12-16); IMMATURE GRANULOCYTES 0.6 % (0-5); LYMPHOCYTES 9.7 % (15-50); MCH 26.6 pg (26.0-34.0); MCHC 30.7 g/dL (31.0-37.0); MCV 86.8 fL (80.0-100.0); MEAN PLATELET VOLUME 9.4 fL (7.4-10.4); MONOCYTES 9.5 % (2-11); PLATELET COUNT 246 10x3/uL (130-400); RBC 4.62 10x6/uL (4.00-5.40); RDW 16.5 % (11.5-14.5); WBC 17.9 10x3/uL (4.8-10.8)
[2017-09-29 05:13] LABS: ALBUMIN 3.3 g/dL (3.4-5.0); ANION GAP 10.9 mmol/L (8-16); BILIRUBIN - TOTAL 0.6 mg/dL (0.2-1.3); CALCIUM 9.6 mg/dL (8.5-10.1); CARBON DIOXIDE 31.6 mmol/L (21.0-32.0); CREATININE - SERUM 0.9 mg/dL (0.6-1.3); POTASSIUM - SERUM 3.5 mmol/L (3.5-5.1); PROTEIN - SERUM 7.8 g/dL (6.4-8.2)
[2017-09-29 10:51] VITALS: BP 111/54
[2017-09-29 15:10] VITALS: BP 143/71
[2017-09-29 21:57] VITALS: BP 112/64
[2017-09-30 00:57] VITALS: BP 116/64
[2017-09-30 05:45] VITALS: BP 124/64
[2017-09-30 06:04] LABS: BASOPHILS 0 % (0-2); EOSINOPHILS 2.7 % (0-7); HEMOGLOBIN 11.9 g/dL (12-16); IMMATURE GRANULOCYTES 0.7 % (0-5); LYMPHOCYTES 16.2 % (15-50); MCH 26.6 pg (26.0-34.0); MCHC 30.5 g/dL (31.0-37.0); MCV 87.1 fL (80.0-100.0); MEAN PLATELET VOLUME 9.1 fL (7.4-10.4); MONOCYTES 7.8 % (2-11); NEUTROPHILS 72.6 % (40-80); PLATELET COUNT 239 10x3/uL (130-400); RBC 4.48 10x6/uL (4.00-5.40); RDW 16.4 % (11.5-14.5); WBC 16.9 10x3/uL (4.8-10.8)
[2017-09-30 06:32] LABS: ALBUMIN 3.2 g/dL (3.4-5.0); ALKALINE PHOSPHATASE 73 U/L (46-116); ALT (SGPT) 28 U/L (10-68); CALC OSMOLALITY 287 mosm/kg (275-300); CALCIUM 8.8 mg/dL (8.5-10.1); CHLORIDE - SERUM 98 mmol/L (98-107); CREATININE - SERUM 0.7 mg/dL (0.6-1.3); GLUCOSE 173 mg/dL (74-106); PROTEIN - SERUM 7.4 g/dL (6.4-8.2); SODIUM 137 mmol/L (136-145); UREA NITROGEN 40 mg/dL (7-18); eGFR NON AFRICAN AMERICAN > 90 mL/min (90-120)
[2017-09-30 09:00] VITALS: BP 104/52
[2017-09-30 13:13] VITALS: BP 113/59
[2017-09-30 16:58] VITALS: BP 114/64
[2017-09-30 23:18] VITALS: BP 117/63
[2017-10-01 04:00] VITALS: BP 96/45
[2017-10-01 05:37] LABS: BASOPHILS 0.1 % (0-2); EOSINOPHILS 4.3 % (0-7); HEMATOCRIT 39.3 % (36.0-48.0); HEMOGLOBIN 11.8 g/dL (12-16); IMMATURE GRANULOCYTES 0.9 % (0-5); LYMPHOCYTES 17.6 % (15-50); MCH 26.3 pg (26.0-34.0); MCV 87.7 fL (80.0-100.0); MEAN PLATELET VOLUME 9.4 fL (7.4-10.4); MONOCYTES 8.7 % (2-11); NEUTROPHILS 68.4 % (40-80); PLATELET COUNT 235 10x3/uL (130-400); RBC 4.48 10x6/uL (4.00-5.40); RDW 16.2 % (11.5-14.5); WBC 16.1 10x3/uL (4.8-10.8)
[2017-10-01 06:09] LABS: ALBUMIN 3.1 g/dL (3.4-5.0); ALKALINE PHOSPHATASE 78 U/L (46-116); ALT (SGPT) 21 U/L (10-68); BILIRUBIN - TOTAL 0.45 mg/dL (0.2-1.3); CALC OSMOLALITY 287 mosm/kg (275-300); CALCIUM 9.1 mg/dL (8.5-10.1); CARBON DIOXIDE 31.7 mmol/L (21.0-32.0); CHLORIDE - SERUM 97 mmol/L (98-107); CREATININE - SERUM 0.7 mg/dL (0.6-1.3); GLUCOSE 174 mg/dL (74-106); PROTEIN - SERUM 7.2 g/dL (6.4-8.2); SODIUM 139 mmol/L (136-145); UREA NITROGEN 30 mg/dL (7-18); eGFR NON AFRICAN AMERICAN > 90 mL/min (90-120)
[2017-10-01 06:23] LABS: POTASSIUM - SERUM 2.9 mmol/L (3.5-5.1)
[2017-10-01 08:18] VITALS: BP 116/63
[2017-10-01 13:13] LABS: FUNGUS STAIN Final report (())
[2017-10-01 13:20] VITALS: BP 124/55
[2017-10-01 16:47] VITALS: BP 116/61
[2017-10-01 20:00] VITALS: BP 99/58
[2017-10-02 04:00] VITALS: BP 115/70
[2017-10-02 06:36] LABS: BASOPHILS 0.1 % (0-2); HEMATOCRIT 37.1 % (36.0-48.0); IMMATURE GRANULOCYTES 0.5 % (0-5); LYMPHOCYTES 17.2 % (15-50); MCH 26.3 pg (26.0-34.0); MCHC 29.6 g/dL (31.0-37.0); MCV 88.5 fL (80.0-100.0); MEAN PLATELET VOLUME 9.1 fL (7.4-10.4); MONOCYTES 8.8 % (2-11); NEUTROPHILS 68.4 % (40-80); PLATELET COUNT 262 10x3/uL (130-400); RBC 4.19 10x6/uL (4.00-5.40); RDW 16.2 % (11.5-14.5); WBC 13.3 10x3/uL (4.8-10.8)
[2017-10-02 07:11] LABS: ALBUMIN 2.9 g/dL (3.4-5.0); ALKALINE PHOSPHATASE 78 U/L (46-116); ALT (SGPT) 19 U/L (10-68); CALC OSMOLALITY 285 mosm/kg (275-300); CALCIUM 8.6 mg/dL (8.5-10.1); CARBON DIOXIDE 32.7 mmol/L (21.0-32.0); CHLORIDE - SERUM 99 mmol/L (98-107); CREATININE - SERUM 0.8 mg/dL (0.6-1.3); GLUCOSE 178 mg/dL (74-106); PROTEIN - SERUM 6.7 g/dL (6.4-8.2); SODIUM 138 mmol/L (136-145); UREA NITROGEN 29 mg/dL (7-18); eGFR NON AFRICAN AMERICAN 79 mL/min (90-120)
[2017-10-02 07:16] LABS: POTASSIUM - SERUM 3.4 mmol/L (3.5-5.1)
[2017-10-02 08:39] VITALS: BP 130/56
[2017-10-02 13:36] VITALS: BP 109/55
[2017-10-02 16:07] VITALS: BP 110/41
[2017-10-02 20:00] VITALS: BP 126/47
[2017-10-03 04:00] VITALS: BP 109/60
[2017-10-03 06:47] LABS: BASOPHILS 0.1 % (0-2); EOSINOPHILS 3.1 % (0-7); HEMATOCRIT 35.7 % (36.0-48.0); HEMOGLOBIN 10.3 g/dL (12-16); IMMATURE GRANULOCYTES 0.6 % (0-5); LYMPHOCYTES 18.5 % (15-50); MCH 25.9 pg (26.0-34.0); MCHC 28.9 g/dL (31.0-37.0); MCV 89.7 fL (80.0-100.0); MONOCYTES 9.2 % (2-11); NEUTROPHILS 68.5 % (40-80); PLATELET COUNT 257 10x3/uL (130-400); RBC 3.98 10x6/uL (4.00-5.40); RDW 16.1 % (11.5-14.5); WBC 11.8 10x3/uL (4.8-10.8)
[2017-10-03 07:04] LABS: ALBUMIN 2.7 g/dL (3.4-5.0); ALKALINE PHOSPHATASE 71 U/L (46-116); ALT (SGPT) 16 U/L (10-68); BILIRUBIN - TOTAL 0.48 mg/dL (0.2-1.3); CALC OSMOLALITY 286 mosm/kg (275-300); CALCIUM 8.6 mg/dL (8.5-10.1); CARBON DIOXIDE 34.4 mmol/L (21.0-32.0); CHLORIDE - SERUM 100 mmol/L (98-107); GLUCOSE 175 mg/dL (74-106); POTASSIUM - SERUM 3.6 mmol/L (3.5-5.1); PROTEIN - SERUM 6.5 g/dL (6.4-8.2); SODIUM 139 mmol/L (136-145); UREA NITROGEN 26 mg/dL (7-18)
[2017-10-03 07:31] LABS: CREATININE - SERUM 0.6 mg/dL (0.6-1.3); eGFR NON AFRICAN AMERICAN > 90 mL/min (90-120)
[2017-10-03 09:11] VITALS: BP 129/61
[2017-10-03] MEDS ORDERED: COUMADIN10 MG PO (11:16)
[2017-10-03] MEDS ORDERED: LOVENOX INJ100 MG/ML SC (12:16)
[2017-10-03 12:46] VITALS: BP 158/66
[2017-10-25 19:14] LABS: FUNGUS MYCOLOGY CULTURE Final report (())
[2017-11-19] MEDS ORDERED: METOLAZONE5 MG PO (17:39)
[2017-11-19] MEDS ORDERED: BUMEX 1 MG TAB1 MG PO (17:39)
[2017-11-20 10:22] LABS: ACID FAST CULTURE Negative (()); ACID FAST SMEAR Negative (())
[2017-11-23] MEDS ORDERED: LEVAQUIN750 MG PO (12:12)
[2017-11-23] MEDS ORDERED: PREDNISONE10 MG PO (12:12)
[2017-11-23] MEDS ORDERED: FLORAJEN3 CAPS460 MG PO (12:13)
[2017-11-23] MEDS ORDERED: OMNICEF300 MG PO (12:17)
== END 2017-10-03 14:22 | disposition home health service (06) | DRG 208 ==
LOC: D.ER 14:34 → D.ICU 16:54 → D.EDHOLD 16:54 → D.MS 16:54 → D.ICU 17:06 → D.MS 09-27 21:30
PROVIDERS: Emergency Medicine; Family Medicine; Nurse Practitioner Family
PROC: 5A1945Z Respiratory Ventilation, 24-96 Consecutive Hours (ICD-10-PCS; 2017-09-24)
PROC: 0BH17EZ Insertion of Endotracheal Airway into Trachea, Via Natural or Artificial Opening (ICD-10-PCS; 2017-09-24)
PROC: 0BDB8ZX Extraction of Left Lower Lobe Bronchus, Via Natural or Artificial Opening Endoscopic, Diagnostic (ICD-10-PCS; principal; 2017-09-26)
PROC: 0BD38ZX Extraction of Right Main Bronchus, Via Natural or Artificial Opening Endoscopic, Diagnostic (ICD-10-PCS; 2017-09-26)
PROC: 0BD78ZX Extraction of Left Main Bronchus, Via Natural or Artificial Opening Endoscopic, Diagnostic (ICD-10-PCS; 2017-09-26)
DX: J15.212 Pneumonia due to Methicillin resistant Staphylococcus aureus (principal); J96.22 Acute and chronic respiratory failure with hypercapnia; J96.21 Acute and chronic respiratory failure with hypoxia; I50.23 Acute on chronic systolic (congestive) heart failure; J44.0 Chronic obstructive pulmonary disease with (acute) lower respiratory infection; J44.1 Chronic obstructive pulmonary disease with (acute) exacerbation; E66.2 Morbid (severe) obesity with alveolar hypoventilation; Z68.44 Body mass index [BMI] 60.0-69.9, adult; J98.11 Atelectasis; G72.81 Critical illness myopathy; N17.9 Acute kidney failure, unspecified; E87.2 Acidosis; E11.65 Type 2 diabetes mellitus with hyperglycemia; I11.0 Hypertensive heart disease with heart failure; B95.61 Methicillin susceptible Staphylococcus aureus infection as the cause of diseases classified elsewhere; G47.33 Obstructive sleep apnea (adult) (pediatric); M17.12 Unilateral primary osteoarthritis, left knee; Z91.19 Patient's noncompliance with other medical treatment and regimen

== ENCOUNTER → 2017-10-04 13:02 | Outpatient (CLI) | payer MEDICARE, MEDICAID ==
[2017-09-26 10:24] VITALS: BMI 68.4
[~2017-10-04 13:02] MED LIST changes: +CILOXAN5 ML EACH EYE; +METOLAZONE5 MG PO; +PRILOSEC10 M1 PO
[2017-10-04 15:58] LABS: INR 0.92 (0.85-1.17)
== END | disposition home or self-care (01) ==
LOC: D.LABREF 13:02
PROVIDERS: Family Medicine
DX: Z51.81 Encounter for therapeutic drug level monitoring (principal); Z79.01 Long term (current) use of anticoagulants

== ENCOUNTER → 2017-10-10 19:34 | Outpatient (CLI) | payer MEDICARE, MEDICAID ==
[2017-09-26 10:24] VITALS: BMI 68.4
== END | disposition home or self-care (01) ==
LOC: D.SLEEP 19:34
DX: G47.33 Obstructive sleep apnea (adult) (pediatric) (principal)

== ENCOUNTER 2017-10-30 13:59 | Inpatient (IN) | payer MEDICARE, MEDICAID ==
[~2017-10-30] VITALS: Ht 152.4 cm; Wt 165.6 kg
[~2017-10-30 13:59] MED LIST changes: -CILOXAN5 ML EACH EYE; -METOLAZONE5 MG PO; -PRILOSEC10 M1 PO
[2017-10-30 14:41] LABS: BASOPHILS 0.2 % (0-2); EOSINOPHILS 2.5 % (0-7); HEMATOCRIT 38.9 % (36.0-48.0); HEMOGLOBIN 11.4 g/dL (12-16); IMMATURE GRANULOCYTES 0.8 % (0-5); LYMPHOCYTES 18.7 % (15-50); MCH 26.6 pg (26.0-34.0); MCHC 29.3 g/dL (31.0-37.0); MCV 90.9 fL (80.0-100.0); MEAN PLATELET VOLUME 9.4 fL (7.4-10.4); MONOCYTES 8.8 % (2-11); PLATELET COUNT 231 10x3/uL (130-400); RBC 4.28 10x6/uL (4.00-5.40); RDW 16.3 % (11.5-14.5); WBC 10.1 10x3/uL (4.8-10.8)
[2017-10-30 14:53] LABS: APTT 32.9 SECONDS (22.8-39.4); INR 1.2 (0.85-1.17); PROTIME 14.8 SECONDS (11.6-15.0)
[2017-10-30 15:26] LABS: ALKALINE PHOSPHATASE 95 U/L (46-116); ALT (SGPT) 26 U/L (10-68); BILIRUBIN - TOTAL 0.47 mg/dL (0.2-1.3); CALC OSMOLALITY 279 mosm/kg (275-300); CALCIUM 9.2 mg/dL (8.5-10.1); CHLORIDE - SERUM 94 mmol/L (98-107); CREATININE - SERUM 0.7 mg/dL (0.6-1.3); GLUCOSE 155 mg/dL (74-106); POTASSIUM - SERUM 3.7 mmol/L (3.5-5.1); PRO BNP 256 pg/mL (0-125); PROTEIN - SERUM 7.4 g/dL (6.4-8.2); SODIUM 139 mmol/L (136-145); UREA NITROGEN 9 mg/dL (7-18); eGFR NON AFRICAN AMERICAN > 90 mL/min (90-120)
[2017-10-30 15:41] LABS: CARBON DIOXIDE 42.5 mmol/L (21.0-32.0)
[2017-10-30 21:02] VITALS: BP 146/60
[2017-10-31] VITALS (7 sets, daily range): BP systolic 110–158; BP diastolic 58–74; Ht 152.4 cm; Wt 165.6 kg
[2017-11-01 04:30] VITALS: BP 128/68
[2017-11-01 05:38] LABS: BASOPHILS 0 % (0-2); EOSINOPHILS 0.1 % (0-7); HEMATOCRIT 38.4 % (36.0-48.0); HEMOGLOBIN 11.6 g/dL (12-16); IMMATURE GRANULOCYTES 0.5 % (0-5); LYMPHOCYTES 6.7 % (15-50); MCH 26.4 pg (26.0-34.0); MCHC 30.2 g/dL (31.0-37.0); MEAN PLATELET VOLUME 9.4 fL (7.4-10.4); MONOCYTES 0.7 % (2-11); PLATELET COUNT 228 10x3/uL (130-400); RDW 16.2 % (11.5-14.5)
[2017-11-01 06:01] LABS: MCV 87.3 fL (80.0-100.0); WBC 13.1 10x3/uL (4.8-10.8)
[2017-11-01 06:07] LABS: ANION GAP 9.6 mmol/L (8-16); CALCIUM 9.3 mg/dL (8.5-10.1); CARBON DIOXIDE 36.1 mmol/L (21.0-32.0); MAGNESIUM - SERUM 1.8 mg/dL (1.8-2.4); PHOSPHOROUS 4.2 mg/dL (2.5-4.9); POTASSIUM - SERUM 3.7 mmol/L (3.5-5.1)
[2017-11-01 06:19] LABS: CREATININE - SERUM 0.9 mg/dL (0.6-1.3)
[2017-11-01 08:18] VITALS: BP 112/58
[2017-11-01 12:44] VITALS: BP 121/79
[2017-11-01 16:14] VITALS: BP 123/75
[2017-11-01 20:58] VITALS: BP 118/65
[2017-11-02 00:29] VITALS: BP 124/64
[2017-11-02 05:03] VITALS: BP 122/44
[2017-11-02 05:06] LABS: BASOPHILS 0 % (0-2); EOSINOPHILS 0 % (0-7); HEMATOCRIT 36.9 % (36.0-48.0); HEMOGLOBIN 11.3 g/dL (12-16); IMMATURE GRANULOCYTES 0.5 % (0-5); LYMPHOCYTES 5.9 % (15-50); MCH 26.6 pg (26.0-34.0); MCHC 30.6 g/dL (31.0-37.0); MCV 86.8 fL (80.0-100.0); MEAN PLATELET VOLUME 9.6 fL (7.4-10.4); MONOCYTES 2.2 % (2-11); NEUTROPHILS 91.4 % (40-80); PLATELET COUNT 240 10x3/uL (130-400); RBC 4.25 10x6/uL (4.00-5.40); RDW 16.2 % (11.5-14.5); WBC 12.8 10x3/uL (4.8-10.8)
[2017-11-02 05:07] LABS: INR 1.45 (0.85-1.17); PROTIME 17.2 SECONDS (11.6-15.0)
[2017-11-02 05:20] LABS: ANION GAP 11.2 mmol/L (8-16); CALCIUM 9.3 mg/dL (8.5-10.1); CARBON DIOXIDE 32.4 mmol/L (21.0-32.0); CREATININE - SERUM 1.1 mg/dL (0.6-1.3); POTASSIUM - SERUM 3.6 mmol/L (3.5-5.1)
[2017-11-02 08:16] VITALS: BP 135/67
[2017-11-02 12:12] VITALS: BP 107/68
[2017-11-02 16:08] VITALS: BP 107/57
[2017-11-02 20:02] VITALS: BP 119/61
[2017-11-03] VITALS (7 sets, daily range): BP systolic 114–140; BP diastolic 54–73
[2017-11-03 06:37] LABS: BASOPHILS 0 % (0-2); EOSINOPHILS 0.3 % (0-7); HEMATOCRIT 35.7 % (36.0-48.0); IMMATURE GRANULOCYTES 0.6 % (0-5); LYMPHOCYTES 17.1 % (15-50); MCH 26.7 pg (26.0-34.0); MCHC 30.8 g/dL (31.0-37.0); MCV 86.7 fL (80.0-100.0); MEAN PLATELET VOLUME 9.3 fL (7.4-10.4); MONOCYTES 9.8 % (2-11); NEUTROPHILS 72.2 % (40-80); PLATELET COUNT 229 10x3/uL (130-400); RBC 4.12 10x6/uL (4.00-5.40); RDW 16.4 % (11.5-14.5); WBC 14.5 10x3/uL (4.8-10.8)
[2017-11-03 06:58] LABS: ANION GAP 8.1 mmol/L (8-16); CALCIUM 9.2 mg/dL (8.5-10.1); CARBON DIOXIDE 38.5 mmol/L (21.0-32.0); CREATININE - SERUM 0.9 mg/dL (0.6-1.3); MAGNESIUM - SERUM 1.9 mg/dL (1.8-2.4); PHOSPHOROUS 4.6 mg/dL (2.5-4.9)
[2017-11-03 07:02] LABS: POTASSIUM - SERUM 2.6 mmol/L (3.5-5.1)
[2017-11-04 04:49] VITALS: BP 137/72
[2017-11-04 06:58] LABS: BASOPHILS 0.1 % (0-2); EOSINOPHILS 0.6 % (0-7); HEMATOCRIT 37.2 % (36.0-48.0); HEMOGLOBIN 11.5 g/dL (12-16); IMMATURE GRANULOCYTES 0.3 % (0-5); LYMPHOCYTES 20.1 % (15-50); MCH 26.9 pg (26.0-34.0); MCHC 30.9 g/dL (31.0-37.0); MCV 86.9 fL (80.0-100.0); MEAN PLATELET VOLUME 9.2 fL (7.4-10.4); MONOCYTES 11.1 % (2-11); NEUTROPHILS 67.8 % (40-80); PLATELET COUNT 264 10x3/uL (130-400); RBC 4.28 10x6/uL (4.00-5.40); RDW 16.7 % (11.5-14.5)
[2017-11-04 07:23] LABS: CALC OSMOLALITY 281 mosm/kg (275-300); CALCIUM 8.8 mg/dL (8.5-10.1); CARBON DIOXIDE 36.8 mmol/L (21.0-32.0); CHLORIDE - SERUM 95 mmol/L (98-107); CREATININE - SERUM 0.8 mg/dL (0.6-1.3); GLUCOSE 123 mg/dL (74-106); SODIUM 138 mmol/L (136-145); UREA NITROGEN 27 mg/dL (7-18); eGFR NON AFRICAN AMERICAN 79 mL/min (90-120)
[2017-11-04 08:20] VITALS: BP 130/65
[2017-11-04 13:01] VITALS: BP 107/53
[2017-11-04 16:03] VITALS: BP 116/65
[2017-11-04 20:33] VITALS: BP 130/69
[2017-11-04 23:55] VITALS: BP 121/81
[2017-11-05 04:22] VITALS: BP 149/75
[2017-11-05 05:21] LABS: BASOPHILS 0.1 % (0-2); EOSINOPHILS 1.2 % (0-7); HEMATOCRIT 37.6 % (36.0-48.0); HEMOGLOBIN 11.5 g/dL (12-16); IMMATURE GRANULOCYTES 0.3 % (0-5); LYMPHOCYTES 19.4 % (15-50); MCH 26.5 pg (26.0-34.0); MCHC 30.6 g/dL (31.0-37.0); MCV 86.6 fL (80.0-100.0); MEAN PLATELET VOLUME 9.2 fL (7.4-10.4); MONOCYTES 8.9 % (2-11); NEUTROPHILS 70.1 % (40-80); PLATELET COUNT 262 10x3/uL (130-400); RBC 4.34 10x6/uL (4.00-5.40); RDW 16.4 % (11.5-14.5); WBC 17.1 10x3/uL (4.8-10.8)
[2017-11-05 05:37] LABS: ANION GAP 7.9 mmol/L (8-16); CALCIUM 9.3 mg/dL (8.5-10.1); CARBON DIOXIDE 35.9 mmol/L (21.0-32.0); CREATININE - SERUM 0.9 mg/dL (0.6-1.3)
[2017-11-05 05:38] LABS: POTASSIUM - SERUM 2.8 mmol/L (3.5-5.1)
[2017-11-05 10:12] LABS: MAGNESIUM - SERUM 2.1 mg/dL (1.8-2.4); PHOSPHOROUS 4.7 mg/dL (2.5-4.9)
[2017-11-05 10:36] VITALS: BP 115/66
[2017-11-05 13:35] VITALS: BP 140/73
[2017-11-05 18:39] VITALS: BP 116/67
[2017-11-05] MEDS ORDERED: PRILOSEC10 M1 PO (20:54)
[2017-11-05 20:58] VITALS: BP 115/67
[2017-11-06 00:40] VITALS: BP 118/65
[2017-11-06 04:38] VITALS: BP 113/52
[2017-11-06 06:28] LABS: BASOPHILS 0.1 % (0-2); HEMATOCRIT 37.4 % (36.0-48.0); HEMOGLOBIN 11.6 g/dL (12-16); IMMATURE GRANULOCYTES 0.5 % (0-5); LYMPHOCYTES 17.9 % (15-50); MCH 26.7 pg (26.0-34.0); MEAN PLATELET VOLUME 9.4 fL (7.4-10.4); MONOCYTES 7.6 % (2-11); NEUTROPHILS 72.9 % (40-80); PLATELET COUNT 298 10x3/uL (130-400); RBC 4.35 10x6/uL (4.00-5.40); WBC 19.4 10x3/uL (4.8-10.8)
[2017-11-06 06:50] LABS: ANION GAP 4.3 mmol/L (8-16); BILIRUBIN - TOTAL 0.5 mg/dL (0.2-1.3); CALCIUM 9.4 mg/dL (8.5-10.1); CARBON DIOXIDE 36.2 mmol/L (21.0-32.0); PROTEIN - SERUM 7.2 g/dL (6.4-8.2)
[2017-11-06 07:05] LABS: POTASSIUM - SERUM 2.5 mmol/L (3.5-5.1)
[2017-11-06 09:10] VITALS: BP 130/67
[2017-11-06 13:51] VITALS: BP 124/67
[2017-11-06 20:00] VITALS: BP 106/73
[2017-11-07] VITALS: BP 119/60
[2017-11-07 04:00] VITALS: BP 129/72
[2017-11-07 05:30] LABS: BASOPHILS 0 % (0-2); EOSINOPHILS 1.1 % (0-7); HEMATOCRIT 37.6 % (36.0-48.0); HEMOGLOBIN 11.8 g/dL (12-16); IMMATURE GRANULOCYTES 0.5 % (0-5); MCH 26.8 pg (26.0-34.0); MCHC 31.4 g/dL (31.0-37.0); MCV 85.3 fL (80.0-100.0); MEAN PLATELET VOLUME 8.9 fL (7.4-10.4); MONOCYTES 9.5 % (2-11); NEUTROPHILS 71.9 % (40-80); PLATELET COUNT 298 10x3/uL (130-400); RBC 4.41 10x6/uL (4.00-5.40)
[2017-11-07 05:55] LABS: ALKALINE PHOSPHATASE 80 U/L (46-116); ALT (SGPT) 17 U/L (10-68); BILIRUBIN - TOTAL 0.38 mg/dL (0.2-1.3); CALC OSMOLALITY 283 mosm/kg (275-300); CARBON DIOXIDE 36.2 mmol/L (21.0-32.0); CHLORIDE - SERUM 94 mmol/L (98-107); CREATININE - SERUM 0.8 mg/dL (0.6-1.3); GLUCOSE 155 mg/dL (74-106); PROTEIN - SERUM 7.4 g/dL (6.4-8.2); SODIUM 136 mmol/L (136-145); UREA NITROGEN 37 mg/dL (7-18); eGFR NON AFRICAN AMERICAN 79 mL/min (90-120)
[2017-11-07 08:04] VITALS: BP 123/63
[2017-11-07 12:18] VITALS: BP 118/71
[2017-11-07 15:39] VITALS: BP 142/68
[2017-11-07 19:54] VITALS: BP 93/64
[2017-11-08] VITALS: BP 134/64
[2017-11-08 04:00] VITALS: BP 137/77
[2017-11-08 07:14] LABS: BASOPHILS 0 % (0-2); HEMATOCRIT 37.1 % (36.0-48.0); HEMOGLOBIN 11.2 g/dL (12-16); IMMATURE GRANULOCYTES 0.4 % (0-5); LYMPHOCYTES 19.2 % (15-50); MCH 26.5 pg (26.0-34.0); MCHC 30.2 g/dL (31.0-37.0); MEAN PLATELET VOLUME 8.8 fL (7.4-10.4); MONOCYTES 8.9 % (2-11); NEUTROPHILS 69.5 % (40-80); PLATELET COUNT 302 10x3/uL (130-400); RBC 4.22 10x6/uL (4.00-5.40); RDW 16.2 % (11.5-14.5); WBC 15.9 10x3/uL (4.8-10.8)
[2017-11-08 07:20] LABS: MCV 87.9 fL (80.0-100.0)
[2017-11-08 07:31] LABS: ANION GAP 7.2 mmol/L (8-16); BILIRUBIN - TOTAL 0.4 mg/dL (0.2-1.3); CALCIUM 8.9 mg/dL (8.5-10.1); CARBON DIOXIDE 38.7 mmol/L (21.0-32.0); CREATININE - SERUM 0.9 mg/dL (0.6-1.3); PROTEIN - SERUM 7.3 g/dL (6.4-8.2)
[2017-11-08 07:34] LABS: POTASSIUM - SERUM 2.9 mmol/L (3.5-5.1)
[2017-11-08 08:04] VITALS: BP 142/79
[2017-11-08 10:02] LABS: MAGNESIUM - SERUM 1.9 mg/dL (1.8-2.4); PHOSPHOROUS 4.2 mg/dL (2.5-4.9)
[2017-11-08 12:19] VITALS: BP 145/77
[2017-11-08] MEDS ORDERED: K-DUR20 MEQ PO (13:41)
[2017-11-08] MEDS ORDERED: CILOXAN5 ML EACH EYE (13:41)
[2017-11-08] MEDS ORDERED: LASIX40 MG PO (13:43)
[2017-11-08] MEDS ORDERED: PREDNISONE10 MG PO (13:44)
[2017-11-19] MEDS ORDERED: METOLAZONE5 MG PO (17:39)
[2017-11-19] MEDS ORDERED: BUMEX 1 MG TAB1 MG PO (17:39)
[2017-11-23] MEDS ORDERED: LEVAQUIN750 MG PO (12:12)
[2017-11-23] MEDS ORDERED: PREDNISONE10 MG PO (12:12)
[2017-11-23] MEDS ORDERED: FLORAJEN3 CAPS460 MG PO (12:13)
[2017-11-23] MEDS ORDERED: OMNICEF300 MG PO (12:17)
== END 2017-11-08 18:00 | disposition home health service (06) | DRG 189 ==
LOC: D.ER 13:59 → D.MS 17:17 → D.EDHOLD 17:17 → D.MS 17:38
PROVIDERS: Emergency Medicine; Family Medicine; Internal Medicine Nephrology
DX: J96.21 Acute and chronic respiratory failure with hypoxia (principal); I50.33 Acute on chronic diastolic (congestive) heart failure; J44.1 Chronic obstructive pulmonary disease with (acute) exacerbation; N17.9 Acute kidney failure, unspecified; G72.81 Critical illness myopathy; E66.2 Morbid (severe) obesity with alveolar hypoventilation; I42.9 Cardiomyopathy, unspecified; Z68.45 Body mass index [BMI] 70 or greater, adult; I11.0 Hypertensive heart disease with heart failure; E11.65 Type 2 diabetes mellitus with hyperglycemia; J96.22 Acute and chronic respiratory failure with hypercapnia; G47.33 Obstructive sleep apnea (adult) (pediatric); E03.9 Hypothyroidism, unspecified; H10.9 Unspecified conjunctivitis; M19.90 Unspecified osteoarthritis, unspecified site; Z86.718 Personal history of other venous thrombosis and embolism; Z79.01 Long term (current) use of anticoagulants

== ENCOUNTER 2017-11-26 18:41 | Inpatient (IN) | payer MEDICARE, MEDICAID ==
[~2017-11-26] VITALS: Ht 152.4 cm; Wt 152.9 kg
--- NOTE | ~2017-11-26 | EC ---
PATIENT:DOUGLAS HILLS DATE OF SERVICE: 11/26/17 SEX: F MEDICAL RECORD: [id number] DATE OF : 63 LOCATION:D.MS Berger AGE OF PATIENT: 52 ADMISSION DATE: 11/26/17 REFERRING PHYSICIAN: INTERPRETING PHYSICIAN: DOTTIE GARG MD ECHOCARDIOGRAM REPORT ECHO CHARGES 5 ECHO LIMITED Date: 11/27 CLINICAL DIAGNOSIS: MRSA ASSESS FOR VEG ECHOCARDIOGRAPHIC MEASUREMENTS (adult normal given) AC root (d.<3.7cm) 4.7 cm LV Septum d (<1.2 cm> 1.7 cm Valve Excursion 1.9 cm LV Septum (systole) 2.0 cm Left Atria (s.<4.0cm> 4.3 cm LVPW d(<1.2cm) 1.6 cm RV (d.<2.3cm) 3.9 cm LVPW (sytole) 1.8 cm LV diastole(<5.6CM) 5.7 cm MV E-F(>70mm/sec) cm LV systole 4.1 cm LVOT Diameter 2.4 cm MV exc.(>10mm) 1.2 cm Est.ejection fraction (50-75%) % DOPPLER: LVIT cm/sec A cm/sec E cm/sec LA cm/sec RVSP 23 mmHg LVOT cm/sec AOP1/2T m/s Asc. Ao cm/sec RVOT 113 cm/sec RA cm/sec PA 171 cm/sec AV Gradient Peak mmHg AV Mean mmHg AV Area cm MV Gradient Peak mmHg MV Mean mmHg MV Area cm COMMENTS: Chalk Machine Operator: Telma DC Electronic Prepress System Operator: 1 Dr. Garg TAPE# PACS Pericardial Effusion Y DATE OF SERVICE: 11/28/2017 FINDINGS: 1. Left ventricular chamber size is within normal limits. Left ventricular systolic function is normal. Overall ejection fraction estimated at 55% to 60%. 2. Left atrium is enlarged at 4.3 cm. Right atrium and right ventricular chamber sizes are as well mildly dilated. 3. Valvular structures have normal structure and motion. 4. Doppler interrogation reveals no significant valvular insufficiency or stenosis. ECHOCARDIOGRAM REPORT [id number] DOUGLAS HILLS 5. Trace pericardial effusion is present that is not hemodynamically significant. 6. No evidence of left ventricular thrombus. TRANSINT:[id number] Voice Confirmation ID: [id number] DOCUMENT ID: [id number] DOTTIE GARG MD at 1848 CC: [id number] DICTATION DATE: 11/28/17 1252 CLOSED CIRCUIT SCREEN WATCHER: 11/28/17 1443 DIS IN 11/29/17 [place] [id number] [place] [id number]
--- NOTE | ~2017-11-26 | OP ---
PATIENT NAME: DOUGLAS HILLS MEDICAL RECORD: [id number] :63 LOCATION:D.MS Ramos2236 ADMISSION DATE:11/26/17 SURGEON: INGRID MARTINS MD DATE OF OPERATION: 11/28/2017 PREOPERATIVE DIAGNOSES: 1. Methicillin-resistant Staphylococcus aureus bacteremia. 2. Line-related sepsis. 3. Diabetes mellitus. 4. Hypertension. 5. Chronic obstructive pulmonary disease. 6. Obstructive sleep apnea. 7. Morbid obesity. POSTOPERATIVE DIAGNOSES: 1. Methicillin-resistant Staphylococcus aureus bacteremia. 2. Line-related sepsis. 3. Diabetes mellitus. 4. Hypertension. 5. Chronic obstructive pulmonary disease. 6. Obstructive sleep apnea. 7. Morbid obesity. PROCEDURE: Left subclavian vein port removal. SURGEON: Ingrid Martins MD REPORT OF PROCEDURE: The patient's left chest was prepped and draped in sterile fashion. A 10 mL of 1% lidocaine with epinephrine was infused into the surrounding tissues. A skin incision was made overlying the port. The port was dissected free and the 3 sutures holding it in place were all removed. The port was then removed and the catheter tunnel was tied off with a 3-0 Vicryl. The subcutaneous tissues were reapproximated with interrupted 3-0 Vicryl, and the skin was closed with running subcutaneous 5-0 Monocryl. COMPLICATIONS: None. CONDITION: Stable. ANESTHESIA: Local. BLOOD LOSS: Minimal. TRANSINT:[id number] Voice Confirmation ID: [id number] DOCUMENT ID: [id number] INGRID MARTINS MD at 1703 CC: [id number] DICTATION DATE: 11/28/17 1331 DIRECTOR OF SPECIAL SERVICES: 11/28/17 1455 ADM IN [place] [id number] [place] [id number]
[~2017-11-26 18:41] MED LIST changes: +CILOXAN5 ML EACH EYE; +METOLAZONE5 MG PO; +PRILOSEC10 M1 PO
[2017-11-26 21:36] VITALS: BP 133/63
[2017-11-26 21:44] LABS: BASOPHILS 0.1 % (0-2); EOSINOPHILS 3.6 % (0-7); HEMATOCRIT 33.6 % (36.0-48.0); HEMOGLOBIN 10.1 g/dL (12-16); LYMPHOCYTES 22.2 % (15-50); MCH 26.9 pg (26.0-34.0); MCHC 30.1 g/dL (31.0-37.0); MCV 89.4 fL (80.0-100.0); MEAN PLATELET VOLUME 8.7 fL (7.4-10.4); MONOCYTES 8.7 % (2-11); NEUTROPHILS 64.4 % (40-80); PLATELET COUNT 267 10x3/uL (130-400); RBC 3.76 10x6/uL (4.00-5.40); RDW 15.5 % (11.5-14.5); WBC 13.4 10x3/uL (4.8-10.8)
[2017-11-26 21:58] LABS: ALBUMIN 2.8 g/dL (3.4-5.0); ANION GAP 7.9 mmol/L (8-16); BILIRUBIN - TOTAL 0.2 mg/dL (0.2-1.3); CALCIUM 8.5 mg/dL (8.5-10.1); CARBON DIOXIDE 37.5 mmol/L (21.0-32.0); CREATININE - SERUM 0.9 mg/dL (0.6-1.3); POTASSIUM - SERUM 3.4 mmol/L (3.5-5.1); PROTEIN - SERUM 6.8 g/dL (6.4-8.2)
[2017-11-27 04:54] VITALS: BP 117/60
[2017-11-27 08:14] VITALS: BP 132/95
[2017-11-27 12:39] VITALS: BP 137/59
[2017-11-27 15:19] VITALS: Ht 152.4 cm; Wt 152.9 kg
[2017-11-27 15:33] LABS: ERYTHROCYTE SEDIMENTATION RATE 34 mm/hr (0-30)
[2017-11-27 16:15] VITALS: BP 132/48
[2017-11-27 20:06] VITALS: BP 134/65
[2017-11-28 04:30] VITALS: BP 144/64
[2017-11-28 13:32] VITALS: BP 124/54
[2017-11-28 20:07] VITALS: BP 105/50
[2017-11-29 04:25] VITALS: BP 121/68
[2017-11-29 06:19] LABS: BASOPHILS 0.3 % (0-2); EOSINOPHILS 2.8 % (0-7); HEMOGLOBIN 8.7 g/dL (12-16); IMMATURE GRANULOCYTES 0.3 % (0-5); LYMPHOCYTES 19.9 % (15-50); MCH 25.7 pg (26.0-34.0); MCHC 31.1 g/dL (31.0-37.0); MCV 82.6 fL (80.0-100.0); MEAN PLATELET VOLUME 8.7 fL (7.4-10.4); MONOCYTES 10.9 % (2-11); NEUTROPHILS 65.8 % (40-80); RBC 3.39 10x6/uL (4.00-5.40); RDW 17.4 % (11.5-14.5); WBC 7.1 10x3/uL (4.8-10.8)
[2017-11-29 06:42] LABS: PLATELET COUNT 201 10x3/uL (130-400)
[2017-11-29 07:13] LABS: CALC OSMOLALITY 288 mosm/kg (275-300); CALCIUM 9.2 mg/dL (8.5-10.1); CARBON DIOXIDE 37.6 mmol/L (21.0-32.0); CHLORIDE - SERUM 99 mmol/L (98-107); CREATININE - SERUM 0.8 mg/dL (0.6-1.3); GLUCOSE 186 mg/dL (74-106); POTASSIUM - SERUM 3.6 mmol/L (3.5-5.1); SODIUM 140 mmol/L (136-145); UREA NITROGEN 26 mg/dL (7-18); eGFR NON AFRICAN AMERICAN 79 mL/min (90-120)
[2017-11-29 08:59] VITALS: BP 150/75
[2017-11-29 12:48] VITALS: BP 111/55
[2017-11-29 16:15] VITALS: BP 135/59
== END 2017-11-29 17:11 | disposition home health service (06) | DRG 314 ==
LOC: D.MS 18:41
PROVIDERS: Family Medicine; Internal Medicine Nephrology
PROC: 05HC33Z Insertion of Infusion Device into Left Basilic Vein, Percutaneous Approach (ICD-10-PCS; principal; 2017-11-28)
PROC: B54NZZA Ultrasonography of Left Upper Extremity Veins, Guidance (ICD-10-PCS; 2017-11-28)
PROC: 0JPT0WZ Removal of Totally Implantable Vascular Access Device from Trunk Subcutaneous Tissue and Fascia, Open Approach (ICD-10-PCS; 2017-11-28)
DX: T80.219A Unspecified infection due to central venous catheter, initial encounter (principal); A41.02 Sepsis due to Methicillin resistant Staphylococcus aureus; E66.2 Morbid (severe) obesity with alveolar hypoventilation; Z68.44 Body mass index [BMI] 60.0-69.9, adult; I42.9 Cardiomyopathy, unspecified; J96.11 Chronic respiratory failure with hypoxia; J96.12 Chronic respiratory failure with hypercapnia; E11.40 Type 2 diabetes mellitus with diabetic neuropathy, unspecified; Z79.4 Long term (current) use of insulin; I10 Essential (primary) hypertension; E78.5 Hyperlipidemia, unspecified; G47.33 Obstructive sleep apnea (adult) (pediatric); J44.9 Chronic obstructive pulmonary disease, unspecified; I11.0 Hypertensive heart disease with heart failure; I50.9 Heart failure, unspecified; M19.90 Unspecified osteoarthritis, unspecified site

== ENCOUNTER 2017-12-04 10:35 | Inpatient (IN) | payer MEDICARE, MEDICAID ==
[~2017-12-04] VITALS: Ht 152.4 cm; Wt 167.0 kg
--- NOTE | ~2017-12-04 | CN ---
PATIENT NAME:DOUGLAS HILLS MEDICAL RECORD: [id number] : 63 LOCATION:[id number] ADMIT DATE: 12/04/17 ACCOUNT: [id number] CONSULTING PHYSICIAN: ALIZE LAMB MD REFERRING PHYSICIAN: BRIDGER CARMICHAEL MD DATE OF CONSULTATION: 12/04/2017 REQUESTING PHYSICIAN: Bridger Carmichael MD REASON FOR CONSULTATION: Fzgfs-fy-gyymmfj hypoxic hypercapnic respiratory failure. HISTORY OF PRESENT ILLNESS: Ms. Hills is a 52-year-old female, very well known to us. The patient was just discharged first week of November. According to the patient, for the last few days she has worsening shortness of breath, orthopnea, PND. The patient came into the ER and on evaluation, she was found out she has leukocytosis, pulmonary edema and her pH of 7.23 with a CO2 of 112. Now, the patient is a bit more awake and alert. This morning, she was very weak and lethargic. REVIEW OF SYSTEMS: As in history of present illness. PAST MEDICAL HISTORY: 1. COPD. 2. Chronic hypoxic respiratory failure. 3. Congestive heart failure with chronic systolic dysfunction with LVEF 35% to 40%. 4. Allergic rhinitis. 5. Obesity hypoventilation syndrome. 6. Morbid obesity. 7. Obstructive sleep apnea. 8. Type 2 diabetes mellitus. PAST SURGICAL HISTORY: 1. Hysterectomy. 2. Cholecystectomy. 3. Two C-sections in the past. ALLERGIES: SHE IS ALLERGIC TO TORADOL, LYRICA AND LEXAPRO. MEDICATIONS: Sellvanatech is reviewed. PERSONAL AND SOCIAL HISTORY: The patient is a nonsmoker, nondrinker. FAMILY HISTORY: Noncontributory. PHYSICAL EXAMINATION: GENERAL: Now, the patient is lying comfortably in bed. She is wearing a BiPAP. She is in mild respiratory distress. VITAL SIGNS: The blood pressure 121/62, pulse is 100, SpO2 is 88% to 92% on BiPAP. HEENT: Conjunctivae are pink. Sclerae not icteric. NECK: The neck is supple, no JVD. CHEST: Bilateral crackles, wheeze on forceful expiration. HEART: Rate and rhythm regular. Normal heart sounds, no murmur. CONSULT REPORT [id number] DOUGLAS HILLS ABDOMEN: The abdomen is soft, bowel sounds present. No hepatosplenomegaly. RECTAL: Deferred. EXTREMITIES: No cyanosis, no clubbing. There is 1+ pedal edema. CENTRAL NERVOUS SYSTEM: The patient is awake and alert. There is no obvious cranial nerve abnormality. The gait was not tested. CHEST RADIOGRAPH: There are bilateral infiltrates. LABORATORY DATA: ABG: The pH is 7.23, pCO2 of 112.6, pO2 is 30, bicarbonate is 47.8. Chemistry: Sodium is 141, potassium is 4, BUN is 9, creatinine 0.7. CBC: The WBC is 17,000, hemoglobin is 10.1, hematocrit 33.7. IMPRESSION: 1. Zouox-zv-elukazd hypoxic hypercapnic respiratory failure, respiratory acidosis, noncompensated metabolic alkalosis. 2. Acute exacerbation of chronic obstructive pulmonary disease. 3. Pulmonary edema. 4. Bilateral pneumonia, most likely consistent with hospital-acquired pneumonia with recent hospitalization. 5. Leukocytosis. 6. Obesity hypoventilation syndrome. 7. Congestive heart failure. 8. Chronic systolic dysfunction. 9. Obstructive sleep apnea. RECOMMENDATION: 1. Start on IV antibiotic, vancomycin, cefepime and Levaquin. 2. Methylprednisolone IV, albuterol/ipratropium nebulizer, Brovana and budesonide nebulizer. 3. Diamox. 4. Continue Lasix. 5. Follow labs and chest radiograph. 6. Continue the BiPAP. Dr. Carmichael, thank you for involving me in the care of Ms. Hills. TRANSINT:[id number] Voice Confirmation ID: [id number] DOCUMENT ID: [id number] ALIZE LAMB MD CC: BRIDGER CARMICHAEL [id number] DICTATION DATE: 12/04/171815 NEWS PRODUCTION ASSISTANT: 12/04/171910 ADM IN [facility] [address] [place] [id number]
--- NOTE | ~2017-12-04 | HEMODYNAMI ---
PATIENT:DOUGLAS HILLS MEDICAL RECORD: [id number] : 63 LOCATION:D.MS Mendoza ADMISSION DATE: 12/04/17 Generatedon:12/10/201714:41 Patient name: DOUGLAS HILLS Patient #: [id number] SSN: : 1965 Date of study: 12/10/2017 Page: Of Hemodynamic Procedure Report Patient Data Patient Demographics Procedure consent was obtained First Name: DOUGLAS Gender: Female Last Name: JEANA : 1965 Middle Initial: J Age: 52 year(s) Patient #: [id number] Race: Additional ID: [id number] Contact details Address: [place] [address] State: [place] City: [place] Zip code: [address] Admission Admission Data Admission Date: 12/04/2017 Admission Time: 12:12 Room #: Kelly Weight (lbs.): 368 Weight (kg.): 166.92 Procedure Procedure Types Cath Procedure Peripheral Cath Diagnostic Procedure Cath Peripheral Miscellaneous Central Line Placement Procedure Description Procedure Date Procedure Date: 12/10/2017 Procedure Start Time: 14:22 Procedure Staff Name Function Wayne Spears MD Performing Physician Jody Parker RT Non Licensed Nuclear Plant Operator Jody Parker RT Monitor Marsha Mahan RN Nurse Jun Sandhu RT Scrub Procedure Data Cath Procedure Fluoroscopy Diagnostic fluoroscopy Total fluoroscopy Time: 1.7 time: 1.7 min min Diagnostic fluoroscopy Total fluoroscopy dose: 160 dose: 160 mGy mGy Contrast Material Contrast Material Type Amount (ml) Isovue 300 10 Diagnostic catheters Device Type Used For End Catheter Placement Merit Impress KA 2 5Fr 40CM catheter ([id number]) Hemodynamics Rest Pre Cath Intra NCS Post Cath Procedure Log Time Note 14:00:04 Patient Weight : 368 lbs 14:14:08 Time tracking: Regular hours (M-F 7:00 - 5:00) 14:14:42 Use device set IR Diagnostic 14:14:50 Sterile Angiographic Pack opened to sterile field. 14:14:52 Bag Decanter (2002) opened to sterile field. 14:15:13 Patient received from Med/Surg to IR Alert and oriented. Tansferred to table in Supine position. 14:15:17 Signed procedure consent form obtained from patient. 14:15:18 - 14:15:24 H&P Date Dictated: 12/10/2017 Within 30 days and on chart.. 14:15:45 Left neck area was prepped with chlora-prep and draped in sterile fashion 14:19:30 Physician arrived 14:22:25 SAHRASON 145cm wire ([id number]) opened to sterile field. 14:22:30 --------ALL STOP TIME OUT------ 14:22:31 Final Timeout: patient, procedure, and site verified with staff and physician. All members of the team are in agreement. 14:22:42 Procedure started. 14:22:42 Full Disclosure recording started 14:22:58 Local anesthetic to left subclavian vein with Lidocaine 1% by Wayne Spears MD.INITIAL ACCESS ONLY 14:33:15 Lynn 180 wire ([id number]) opened to sterile field. 14:33:41 A Conclusive Analytics KA 2 5Fr 40CM catheter ([id number]) was advanced over the wire and used for . 14:36:58 SUTURE ETHILON 2-0 BLK MONO FS opened to sterile field. 14:37:08 SHIELD Sorbaview ([id number]) opened to sterile field. 14:37:19 Procedure ended.(Physican Out) 14:40:00 Fluoroscopy time 01.70 minutes. 14:40:08 Fluoroscopy dose: 160 mGy 14:40:08 Flurop Dose total: 160 14:40:12 Contrast amount:Isovue 300 10ml. 14:40:15 Procedure and supply charges have been captured, reviewed, submitted an d are correct. 14:41:05 Report given to Med/Surg. 14:41:14 Patient transfered to Med/Surg with Bed. Device Usage Item Name Manufacture Quantity Catalog Hospital Part Current Minimal Lot# / Number Charge Number Stock Stock Serial# Code Sterile Cardinal 1 [id number] 5 Angiographic Health Pack Bag Decanter Microtek 1 [id number] 86010 [id number] 5 () [employer] Inc[employer]SON FatTail Medical 1 [id number] [id number] [id number] 5 [id number] 145cm wire ([id number]) Lynn 180 Cook Medical 1 [id number] 890961 [id number] 5 [id number] wire ([id number]) Merit Merit 1 [id number] 607429 300636 5 Impress KA 2 Medical 5Fr 40CM catheter ([id number]) SUTURE Ethicon 1 [id number] 073321 5 ETHILON 2-0 BLK MONO FS SHIELD Centurion 1 [id number] 091693 080117 5 Sorbaview ([id number]) Signature Audit [place] Stage Time Signature Unsigned Intra-Procedure 12/10/2017 Jody Parker 2:41:27 PM RT(R) Signatures Monitor : Jody Parker RT Signature : Date : Time : [address] [address]
[2017-12-04 12:02] LABS: BASOPHILS 0.1 % (0-2); EOSINOPHILS 1.5 % (0-7); HEMATOCRIT 33.7 % (36.0-48.0); HEMOGLOBIN 10.1 g/dL (12-16); IMMATURE GRANULOCYTES 0.9 % (0-5); LYMPHOCYTES 7.9 % (15-50); MCH 27.1 pg (26.0-34.0); MCV 90.3 fL (80.0-100.0); MEAN PLATELET VOLUME 8.5 fL (7.4-10.4); MONOCYTES 4.4 % (2-11); NEUTROPHILS 85.2 % (40-80); PLATELET COUNT 241 10x3/uL (130-400); RBC 3.73 10x6/uL (4.00-5.40); RDW 15.5 % (11.5-14.5)
[2017-12-04 12:35] LABS: ALBUMIN 2.7 g/dL (3.4-5.0); ALKALINE PHOSPHATASE 89 U/L (46-116); ALT (SGPT) 15 U/L (10-68); BILIRUBIN - TOTAL 0.37 mg/dL (0.2-1.3); CALC OSMOLALITY 286 mosm/kg (275-300); CALCIUM 8.4 mg/dL (8.5-10.1); CHLORIDE - SERUM 97 mmol/L (98-107); CREATINE KINASE 15 UL (21-215); CREATININE - SERUM 0.7 mg/dL (0.6-1.3); GLUCOSE 231 mg/dL (74-106); MAGNESIUM - SERUM 1.2 mg/dL (1.8-2.4); PROTEIN - SERUM 6.1 g/dL (6.4-8.2); SODIUM 141 mmol/L (136-145); UREA NITROGEN 9 mg/dL (7-18); eGFR NON AFRICAN AMERICAN > 90 mL/min (90-120)
[2017-12-04 12:37] LABS: TROPONIN-I < 0.017 ng/mL (0.000-0.060)
[2017-12-04 21:00] VITALS: BP 120/65
[2017-12-04 21:29] VITALS: BP 136/74; BMI 72.9
[2017-12-04 22:00] VITALS: BP 127/56
[2017-12-04 23:00] VITALS: BP 120/65
[2017-12-05] VITALS (25 sets, daily range): BP systolic 106–154; BP diastolic 44–100; Ht 152.4 cm; Wt 167.0 kg
[2017-12-05 04:42] LABS: BASOPHILS 0 % (0-2); EOSINOPHILS 0 % (0-7); HEMATOCRIT 31.7 % (36.0-48.0); HEMOGLOBIN 9.5 g/dL (12-16); IMMATURE GRANULOCYTES 0.6 % (0-5); LYMPHOCYTES 4.5 % (15-50); MCH 26.8 pg (26.0-34.0); MCV 89.5 fL (80.0-100.0); MEAN PLATELET VOLUME 9.3 fL (7.4-10.4); MONOCYTES 1.6 % (2-11); NEUTROPHILS 93.3 % (40-80); PLATELET COUNT 251 10x3/uL (130-400); RBC 3.54 10x6/uL (4.00-5.40); RDW 15.1 % (11.5-14.5)
[2017-12-05 04:44] LABS: WBC 12.6 10x3/uL (4.8-10.8)
[2017-12-05 05:01] LABS: ALBUMIN 2.4 g/dL (3.4-5.0); ANION GAP 7.5 mmol/L (8-16); BILIRUBIN - TOTAL 0.3 mg/dL (0.2-1.3); CALCIUM 8.5 mg/dL (8.5-10.1); CARBON DIOXIDE 39.9 mmol/L (21.0-32.0); POTASSIUM - SERUM 3.4 mmol/L (3.5-5.1); PROTEIN - SERUM 6.6 g/dL (6.4-8.2)
[2017-12-05 05:21] LABS: CREATININE - SERUM 0.9 mg/dL (0.6-1.3)
[2017-12-06] VITALS (12 sets, daily range): BP systolic 88–122; BP diastolic 45–100
[2017-12-06 04:06] LABS: BASOPHILS 0.1 % (0-2); EOSINOPHILS 0 % (0-7); HEMATOCRIT 32.2 % (36.0-48.0); HEMOGLOBIN 9.6 g/dL (12-16); IMMATURE GRANULOCYTES 0.4 % (0-5); LYMPHOCYTES 4.9 % (15-50); MCH 26.7 pg (26.0-34.0); MCHC 29.8 g/dL (31.0-37.0); MCV 89.7 fL (80.0-100.0); MEAN PLATELET VOLUME 9.4 fL (7.4-10.4); MONOCYTES 4.8 % (2-11); NEUTROPHILS 89.8 % (40-80); PLATELET COUNT 270 10x3/uL (130-400); RBC 3.59 10x6/uL (4.00-5.40); RDW 14.9 % (11.5-14.5); WBC 15.6 10x3/uL (4.8-10.8)
[2017-12-06 04:25] LABS: ALBUMIN 2.7 g/dL (3.4-5.0); ALKALINE PHOSPHATASE 66 U/L (46-116); ALT (SGPT) 13 U/L (10-68); BILIRUBIN - TOTAL 0.27 mg/dL (0.2-1.3); CALCIUM 8.6 mg/dL (8.5-10.1); CHLORIDE - SERUM 96 mmol/L (98-107); CREATININE - SERUM 0.8 mg/dL (0.6-1.3); POTASSIUM - SERUM 3.8 mmol/L (3.5-5.1); PROTEIN - SERUM 6.4 g/dL (6.4-8.2); SODIUM 143 mmol/L (136-145); UREA NITROGEN 21 mg/dL (7-18); eGFR NON AFRICAN AMERICAN 79 mL/min (90-120)
[2017-12-06 04:58] LABS: CALC OSMOLALITY 294 mosm/kg (275-300); GLUCOSE 219 mg/dL (74-106)
[2017-12-07 04:53] VITALS: BP 117/52
[2017-12-07 05:30] LABS: BASOPHILS 0 % (0-2); EOSINOPHILS 0 % (0-7); HEMATOCRIT 31.3 % (36.0-48.0); HEMOGLOBIN 9.3 g/dL (12-16); IMMATURE GRANULOCYTES 0.2 % (0-5); LYMPHOCYTES 9.2 % (15-50); MCH 26.5 pg (26.0-34.0); MCHC 29.7 g/dL (31.0-37.0); MCV 89.2 fL (80.0-100.0); MEAN PLATELET VOLUME 9.1 fL (7.4-10.4); MONOCYTES 8.4 % (2-11); NEUTROPHILS 82.2 % (40-80); PLATELET COUNT 254 10x3/uL (130-400); RBC 3.51 10x6/uL (4.00-5.40); RDW 15.1 % (11.5-14.5); WBC 12.1 10x3/uL (4.8-10.8)
[2017-12-07 05:57] LABS: ALBUMIN 2.6 g/dL (3.4-5.0); ANION GAP 7.1 mmol/L (8-16); BILIRUBIN - TOTAL 0.18 mg/dL (0.2-1.3); CALCIUM 9.2 mg/dL (8.5-10.1); CARBON DIOXIDE 39.5 mmol/L (21.0-32.0); CREATININE - SERUM 0.9 mg/dL (0.6-1.3); POTASSIUM - SERUM 3.6 mmol/L (3.5-5.1); PROTEIN - SERUM 6.6 g/dL (6.4-8.2)
[2017-12-07 08:26] VITALS: BP 125/61
[2017-12-07 16:17] VITALS: BP 118/69
[2017-12-07 20:00] VITALS: BP 103/45
[2017-12-08] VITALS: BP 119/60
[2017-12-08 04:00] VITALS: BP 93/51
[2017-12-08 05:42] LABS: BASOPHILS 0 % (0-2); EOSINOPHILS 0.2 % (0-7); HEMATOCRIT 33.9 % (36.0-48.0); HEMOGLOBIN 10.2 g/dL (12-16); IMMATURE GRANULOCYTES 0.2 % (0-5); LYMPHOCYTES 11.5 % (15-50); MCH 26.6 pg (26.0-34.0); MCHC 30.1 g/dL (31.0-37.0); MCV 88.5 fL (80.0-100.0); MEAN PLATELET VOLUME 9.3 fL (7.4-10.4); MONOCYTES 6.2 % (2-11); NEUTROPHILS 81.9 % (40-80); PLATELET COUNT 252 10x3/uL (130-400); RBC 3.83 10x6/uL (4.00-5.40); RDW 15.2 % (11.5-14.5); WBC 12.7 10x3/uL (4.8-10.8)
[2017-12-08 06:25] LABS: ALBUMIN 2.8 g/dL (3.4-5.0); ALKALINE PHOSPHATASE 65 U/L (46-116); ALT (SGPT) 12 U/L (10-68); BILIRUBIN - TOTAL 0.31 mg/dL (0.2-1.3); CALC OSMOLALITY 287 mosm/kg (275-300); CALCIUM 8.9 mg/dL (8.5-10.1); CARBON DIOXIDE 37.9 mmol/L (21.0-32.0); CHLORIDE - SERUM 97 mmol/L (98-107); CREATININE - SERUM 0.8 mg/dL (0.6-1.3); POTASSIUM - SERUM 3.6 mmol/L (3.5-5.1); PROTEIN - SERUM 6.9 g/dL (6.4-8.2); SODIUM 139 mmol/L (136-145); UREA NITROGEN 28 mg/dL (7-18); eGFR NON AFRICAN AMERICAN 79 mL/min (90-120)
[2017-12-08 06:26] LABS: GLUCOSE 163 mg/dL (74-106)
[2017-12-08 08:31] VITALS: BP 121/50
[2017-12-08 12:05] VITALS: BP 105/51
[2017-12-08 15:51] VITALS: BP 126/57
[2017-12-08 20:00] VITALS: BP 113/56
[2017-12-09 04:00] VITALS: BP 103/55
[2017-12-09 04:55] LABS: BASOPHILS 0 % (0-2); EOSINOPHILS 2.1 % (0-7); HEMATOCRIT 33.4 % (36.0-48.0); HEMOGLOBIN 9.9 g/dL (12-16); IMMATURE GRANULOCYTES 0.3 % (0-5); LYMPHOCYTES 15.8 % (15-50); MCH 26.4 pg (26.0-34.0); MCHC 29.6 g/dL (31.0-37.0); MCV 89.1 fL (80.0-100.0); MEAN PLATELET VOLUME 8.9 fL (7.4-10.4); NEUTROPHILS 76.8 % (40-80); PLATELET COUNT 206 10x3/uL (130-400); RBC 3.75 10x6/uL (4.00-5.40); RDW 15.3 % (11.5-14.5)
[2017-12-09 05:11] LABS: ALBUMIN 2.7 g/dL (3.4-5.0); ALKALINE PHOSPHATASE 70 U/L (46-116); ALT (SGPT) 11 U/L (10-68); BILIRUBIN - TOTAL 0.31 mg/dL (0.2-1.3); CALC OSMOLALITY 285 mosm/kg (275-300); CALCIUM 8.7 mg/dL (8.5-10.1); CARBON DIOXIDE 38.3 mmol/L (21.0-32.0); CHLORIDE - SERUM 98 mmol/L (98-107); CREATININE - SERUM 0.7 mg/dL (0.6-1.3); GLUCOSE 136 mg/dL (74-106); PROTEIN - SERUM 5.8 g/dL (6.4-8.2); SODIUM 139 mmol/L (136-145); UREA NITROGEN 29 mg/dL (7-18); eGFR NON AFRICAN AMERICAN > 90 mL/min (90-120)
[2017-12-09 05:16] LABS: POTASSIUM - SERUM 4.2 mmol/L (3.5-5.1)
[2017-12-09 08:21] VITALS: BP 127/73
[2017-12-09 12:29] VITALS: BP 137/68
[2017-12-09 16:35] VITALS: BP 150/64
[2017-12-09 20:00] VITALS: BP 130/64
[2017-12-10 04:20] VITALS: BP 140/71
[2017-12-10 06:30] LABS: BASOPHILS 0.1 % (0-2); EOSINOPHILS 2.6 % (0-7); HEMATOCRIT 36.5 % (36.0-48.0); HEMOGLOBIN 11.2 g/dL (12-16); IMMATURE GRANULOCYTES 0.5 % (0-5); LYMPHOCYTES 15.8 % (15-50); MCH 26.8 pg (26.0-34.0); MCHC 30.7 g/dL (31.0-37.0); MCV 87.3 fL (80.0-100.0); MEAN PLATELET VOLUME 9.1 fL (7.4-10.4); MONOCYTES 5.4 % (2-11); NEUTROPHILS 75.6 % (40-80); PLATELET COUNT 214 10x3/uL (130-400); RBC 4.18 10x6/uL (4.00-5.40); WBC 16.3 10x3/uL (4.8-10.8)
[2017-12-10 06:53] LABS: ALKALINE PHOSPHATASE 72 U/L (46-116); ALT (SGPT) 12 U/L (10-68); BILIRUBIN - TOTAL 0.43 mg/dL (0.2-1.3); CALC OSMOLALITY 286 mosm/kg (275-300); CALCIUM 9.4 mg/dL (8.5-10.1); CHLORIDE - SERUM 95 mmol/L (98-107); CREATININE - SERUM 0.8 mg/dL (0.6-1.3); GLUCOSE 129 mg/dL (74-106); POTASSIUM - SERUM 3.9 mmol/L (3.5-5.1); PROTEIN - SERUM 7.3 g/dL (6.4-8.2); SODIUM 139 mmol/L (136-145); UREA NITROGEN 31 mg/dL (7-18); eGFR NON AFRICAN AMERICAN 79 mL/min (90-120)
[2017-12-10 07:42] VITALS: BP 110/47
[2017-12-10 10:24] LABS: APTT 22.3 SECONDS (22.8-39.4); INR 0.96 (0.85-1.17); PROTIME 12.4 SECONDS (11.6-15.0)
[2017-12-10 12:24] VITALS: BP 144/68
[2017-12-10 16:42] VITALS: BP 110/51
[2017-12-10 20:00] VITALS: BP 95/54
[2017-12-11 04:00] VITALS: BP 112/42
[2017-12-11 07:17] LABS: BASOPHILS 0.1 % (0-2); EOSINOPHILS 2.5 % (0-7); HEMATOCRIT 34.5 % (36.0-48.0); HEMOGLOBIN 10.4 g/dL (12-16); IMMATURE GRANULOCYTES 0.5 % (0-5); MCH 26.5 pg (26.0-34.0); MCHC 30.1 g/dL (31.0-37.0); MCV 87.8 fL (80.0-100.0); MEAN PLATELET VOLUME 9.4 fL (7.4-10.4); MONOCYTES 6.9 % (2-11); PLATELET COUNT 198 10x3/uL (130-400); RBC 3.93 10x6/uL (4.00-5.40); RDW 15.1 % (11.5-14.5)
[2017-12-11 07:41] LABS: ALBUMIN 2.8 g/dL (3.4-5.0); ALKALINE PHOSPHATASE 67 U/L (46-116); ALT (SGPT) 12 U/L (10-68); BILIRUBIN - TOTAL 0.45 mg/dL (0.2-1.3); CALC OSMOLALITY 285 mosm/kg (275-300); CALCIUM 8.8 mg/dL (8.5-10.1); CARBON DIOXIDE 39.2 mmol/L (21.0-32.0); CHLORIDE - SERUM 94 mmol/L (98-107); CREATININE - SERUM 0.8 mg/dL (0.6-1.3); POTASSIUM - SERUM 3.5 mmol/L (3.5-5.1); PROTEIN - SERUM 6.6 g/dL (6.4-8.2); SODIUM 137 mmol/L (136-145); UREA NITROGEN 33 mg/dL (7-18); eGFR NON AFRICAN AMERICAN 79 mL/min (90-120)
[2017-12-11 07:56] LABS: GLUCOSE 197 mg/dL (74-106)
[2017-12-11 08:29] VITALS: BP 112/56
[2017-12-11 12:48] VITALS: BP 104/63
[2017-12-11 15:15] VITALS: BP 119/61
== END 2017-12-11 17:35 | DRG 291 ==
LOC: D.ER 10:35 → D.MS 12:12 → D.ICU 12:12 → D.EDHOLD 12:12 → D.ICU 17:30 → D.MS 12-06 18:25
PROVIDERS: Emergency Medicine; Radiology Diagnostic Radiology
PROC: 5A09357 Assistance with Respiratory Ventilation, Less than 24 Consecutive Hours, Continuous Positive Airway Pressure (ICD-10-PCS; principal; 2017-12-04)
PROC: 05HY33Z Insertion of Infusion Device into Upper Vein, Percutaneous Approach (ICD-10-PCS; 2017-12-06)
PROC: 05H633Z Insertion of Infusion Device into Left Subclavian Vein, Percutaneous Approach (ICD-10-PCS; 2017-12-08)
DX: I50.22 Chronic systolic (congestive) heart failure (principal); J18.9 Pneumonia, unspecified organism; J96.21 Acute and chronic respiratory failure with hypoxia; J96.22 Acute and chronic respiratory failure with hypercapnia; J81.1 Chronic pulmonary edema; J44.1 Chronic obstructive pulmonary disease with (acute) exacerbation; E87.4 Mixed disorder of acid-base balance; E66.2 Morbid (severe) obesity with alveolar hypoventilation; Z68.44 Body mass index [BMI] 60.0-69.9, adult; G72.81 Critical illness myopathy; E11.9 Type 2 diabetes mellitus without complications; E03.9 Hypothyroidism, unspecified; Z87.891 Personal history of nicotine dependence; I11.0 Hypertensive heart disease with heart failure

== ENCOUNTER 2018-01-04 11:01 | Inpatient (IN) | payer MEDICARE, MEDICAID ==
[~2018-01-04] VITALS: Ht 152.4 cm; Wt 159.7 kg
[2018-01-04] VITALS (7 sets, daily range): BP systolic 100–150; BP diastolic 46–563; BMI 78.2
--- NOTE | ~2018-01-04 | CN ---
PATIENT NAME:DOUGLAS HILLS MEDICAL RECORD: [id number] : 63 LOCATION:D.MS Ramos2224 ADMIT DATE: 01/04/18 ACCOUNT: [id number] CONSULTING PHYSICIAN: ALIZE LAMB MD REFERRING PHYSICIAN: LINDA WILSON MD DATE OF CONSULTATION: 01/05/2018 CONSULT REQUESTING PHYSICIAN: Linda Wilson MD REASON FOR CONSULTATION: Acute hypoxic hypercapnic respiratory failure and respiratory acidosis. HISTORY OF PRESENT ILLNESS: Ms. Hills is a 52-year-old female, very well known to our service for recurrent hypercapnic respiratory failure. According to the patient, she do not know, but for the last few days, she is not breathing very well. The patient came into the ER, found out her CO2 was in 92. She denies any fever and there are no night sweats. She does have shortness of breath with mild exertion. REVIEW OF SYSTEMS: As in history of present illness. PAST MEDICAL HISTORY: 1. COPD, home oxygen dependent. 2. Obesity hypoventilation syndrome. 3. Morbid obesity. 4. Congestive heart failure. 5. Allergic rhinitis. 6. Obstructive sleep apnea, on BiPAP, trilogy at home. 7. Diabetes mellitus type 2. PAST SURGICAL HISTORY: 1. Hysterectomy. 2. Cholecystectomy. 3. Two in the past. ALLERGIES: SHE IS ALLERGIC TO TORADOL, LYRICA, LEXAPRO. MEDICATIONS: Meditech is reviewed. PERSONAL AND SOCIAL HISTORY: The patient is a nonsmoker, nondrinker. FAMILY HISTORY: Noncontributory. PHYSICAL EXAMINATION: GENERAL: Now, the patient is lying comfortably in bed. She is not in acute distress. She is wearing nasal cannula oxygen. VITAL SIGNS: The blood pressure is 137/74, pulse is 105, respiration 20, temperature 97.9, SPO2 is 92% on 11 liter oxymizer. HEENT: Conjunctivae are pink. Sclerae are not icteric. NECK: Supple, no JVD. CHEST: Excursion is minimal on both sides. There are bibasilar crackles. No wheezing. HEART: Rhythm regular, normal sound, no murmur. ABDOMEN: Soft, bowel sounds present. No hepatosplenomegaly. RECTAL: Deferred. CONSULT REPORT [id number] DOUGLAS HILLS EXTREMITIES: No cyanosis, no clubbing. There is 2+ pedal edema. SKIN: Warm, normal turgor. CENTRAL NERVOUS SYSTEM: The patient is awake and alert. There are no obvious cranial nerve abnormality. The gait was not tested. CHEST RADIOGRAPH: There is increased interstitial marking. OTHER LABORATORY DATA: CBC: The WBC is 13.5, hemoglobin 9.6, hematocrit 31.7, the platelet count is 299. Chemistry: Sodium 139, potassium 3.6, the bicarbonate is 49.9, BUN is 10, creatinine 0.7. ABG on admission, the pH is 7.31, pCO2 of 92, pO2 is 62, bicarbonate is 47. IMPRESSION: 1. Gklrn-nu-tgkzcyy hypoxic hypercapnic respiratory failure, non-compensated respiratory acidosis. 2. Non-compensated metabolic alkalosis. 3. Tracheobronchitis. 4. Leukocytosis. 5. Congestive heart failure. 6. Obesity hypoventilation syndrome. 7. Obstructive sleep apnea. 8. Morbid obesity. RECOMMENDATION: 1. Continue the BiPAP at night and during the day. 2. Supplemental oxygen. 3. Start her on Diamox. Continue Lasix. Continue Zosyn and Levaquin IV. 4. Follow up labs and chest radiograph. 5. Check ammonia level. Dr. Wilson, thank you for involving me in the care of Ms. Hills. TRANSINT:[id number] Voice Confirmation ID: [id number] DOCUMENT ID: [id number] ALIZE LAMB MD at 1348 CC: [id number] DICTATION DATE: 01/05/181651 CLINICAL INFORMATICS MANAGER: 01/05/18 1730 DIS IN 01/13/18 [place] [id number] [place] [id number]
[2018-01-04 12:13] LABS: BASOPHILS 0.3 % (0-2); EOSINOPHILS 2.7 % (0-7); HEMATOCRIT 31.7 % (36.0-48.0); HEMOGLOBIN 9.6 g/dL (12-16); IMMATURE GRANULOCYTES 2.6 % (0-5); LYMPHOCYTES 18.3 % (15-50); MCH 27.1 pg (26.0-34.0); MCHC 30.3 g/dL (31.0-37.0); MCV 89.5 fL (80.0-100.0); MEAN PLATELET VOLUME 8.8 fL (7.4-10.4); MONOCYTES 9.4 % (2-11); NEUTROPHILS 66.7 % (40-80); RBC 3.54 10x6/uL (4.00-5.40); RDW 15.5 % (11.5-14.5); WBC 13.5 10x3/uL (4.8-10.8)
[2018-01-04 12:16] LABS: PLATELET COUNT 299 10x3/uL (130-400)
[2018-01-04 12:41] LABS: ALBUMIN 2.6 g/dL (3.4-5.0); ALKALINE PHOSPHATASE 92 U/L (46-116); ALT (SGPT) 16 U/L (10-68); BILIRUBIN - TOTAL 0.39 mg/dL (0.2-1.3); CALC OSMOLALITY 283 mosm/kg (275-300); CALCIUM 8.8 mg/dL (8.5-10.1); CHLORIDE - SERUM 98 mmol/L (98-107); CKMB 0.7 U/L (0.0-3.6); CREATINE KINASE 24 UL (21-215); CREATININE - SERUM 0.7 mg/dL (0.6-1.3); GLUCOSE 220 mg/dL (74-106); POTASSIUM - SERUM 3.6 mmol/L (3.5-5.1); PRO BNP 433 pg/mL (0-125); SODIUM 139 mmol/L (136-145); TROPONIN-I < 0.017 ng/mL (0.000-0.060); UREA NITROGEN 11 mg/dL (7-18); eGFR NON AFRICAN AMERICAN > 90 mL/min (90-120)
[2018-01-05 04:07] VITALS: BP 137/74
[2018-01-05 13:42] VITALS: BMI 78.1
[2018-01-05 14:04] LABS: BASOPHILS 0.1 % (0-2); EOSINOPHILS 2.4 % (0-7); HEMATOCRIT 31.2 % (36.0-48.0); HEMOGLOBIN 9.4 g/dL (12-16); IMMATURE GRANULOCYTES 1.5 % (0-5); LYMPHOCYTES 10.8 % (15-50); MCH 27.1 pg (26.0-34.0); MCHC 30.1 g/dL (31.0-37.0); MCV 89.9 fL (80.0-100.0); MEAN PLATELET VOLUME 8.7 fL (7.4-10.4); NEUTROPHILS 76.2 % (40-80); PLATELET COUNT 253 10x3/uL (130-400); RBC 3.47 10x6/uL (4.00-5.40); RDW 15.4 % (11.5-14.5); WBC 10.9 10x3/uL (4.8-10.8)
[2018-01-05 14:22] LABS: ALBUMIN 2.4 g/dL (3.4-5.0); ALKALINE PHOSPHATASE 87 U/L (46-116); ALT (SGPT) 13 U/L (10-68); BILIRUBIN - TOTAL 0.51 mg/dL (0.2-1.3); CALC OSMOLALITY 283 mosm/kg (275-300); CHLORIDE - SERUM 95 mmol/L (98-107); CREATININE - SERUM 0.7 mg/dL (0.6-1.3); GLUCOSE 218 mg/dL (74-106); POTASSIUM - SERUM 3.6 mmol/L (3.5-5.1); PROTEIN - SERUM 6.8 g/dL (6.4-8.2); SODIUM 139 mmol/L (136-145); UREA NITROGEN 10 mg/dL (7-18); eGFR NON AFRICAN AMERICAN > 90 mL/min (90-120)
[2018-01-05 14:41] LABS: CARBON DIOXIDE 49.9 mmol/L (21.0-32.0)
[2018-01-05 18:29] VITALS: BP 117/53
[2018-01-05 21:08] VITALS: BP 115/67
[2018-01-05 23:00] VITALS: BP 104/60
[2018-01-06] VITALS (17 sets, daily range): BP systolic 94–144; BP diastolic 44–85; Ht 152.4 cm; Wt 159.7 kg
[2018-01-06 01:34] LABS: APPEARANCE CLEAR (CLEAR); BILIRUBIN NEGATIVE (NEGATIVE); COLOR YELLOW (YELLOW); GLUCOSE NEGATIVE (NEGATIVE); KETONE NEGATIVE (NEGATIVE); NITRITE NEGATIVE (NEGATIVE); PROTEIN NEGATIVE (NEGATIVE); UROBILINOGEN NORMAL (NORMAL)
[2018-01-06 03:51] LABS: BASOPHILS 0.1 % (0-2); EOSINOPHILS 3.1 % (0-7); HEMATOCRIT 30.7 % (36.0-48.0); IMMATURE GRANULOCYTES 1.3 % (0-5); LYMPHOCYTES 13.1 % (15-50); MCH 26.6 pg (26.0-34.0); MCHC 29.3 g/dL (31.0-37.0); MCV 90.8 fL (80.0-100.0); MEAN PLATELET VOLUME 8.7 fL (7.4-10.4); MONOCYTES 8.4 % (2-11); PLATELET COUNT 255 10x3/uL (130-400); RBC 3.38 10x6/uL (4.00-5.40); RDW 15.3 % (11.5-14.5); WBC 9.6 10x3/uL (4.8-10.8)
[2018-01-06 04:01] LABS: ALBUMIN 2.3 g/dL (3.4-5.0); ALKALINE PHOSPHATASE 79 U/L (46-116); BILIRUBIN - TOTAL 0.55 mg/dL (0.2-1.3); CALCIUM 8.8 mg/dL (8.5-10.1); CHLORIDE - SERUM 97 mmol/L (98-107); CREATININE - SERUM 0.7 mg/dL (0.6-1.3); POTASSIUM - SERUM 3.4 mmol/L (3.5-5.1); PROTEIN - SERUM 6.6 g/dL (6.4-8.2); SODIUM 141 mmol/L (136-145); eGFR NON AFRICAN AMERICAN > 90 mL/min (90-120)
[2018-01-06 04:06] LABS: CALC OSMOLALITY 283 mosm/kg (275-300); GLUCOSE 149 mg/dL (74-106); UREA NITROGEN 13 mg/dL (7-18)
[2018-01-06 04:07] LABS: ALT (SGPT) 9 U/L (10-68); CARBON DIOXIDE 49.3 mmol/L (21.0-32.0)
[2018-01-07] VITALS (10 sets, daily range): BP systolic 95–120; BP diastolic 43–71
[2018-01-07 03:26] LABS: BASOPHILS 0.1 % (0-2); EOSINOPHILS 3.8 % (0-7); HEMATOCRIT 31.6 % (36.0-48.0); HEMOGLOBIN 9.1 g/dL (12-16); IMMATURE GRANULOCYTES 1.2 % (0-5); LYMPHOCYTES 17.5 % (15-50); MCH 26.3 pg (26.0-34.0); MCHC 28.8 g/dL (31.0-37.0); MCV 91.3 fL (80.0-100.0); MEAN PLATELET VOLUME 8.8 fL (7.4-10.4); MONOCYTES 8.1 % (2-11); NEUTROPHILS 69.3 % (40-80); PLATELET COUNT 270 10x3/uL (130-400); RBC 3.46 10x6/uL (4.00-5.40); RDW 15.5 % (11.5-14.5); WBC 10.6 10x3/uL (4.8-10.8)
[2018-01-07 03:41] LABS: ALBUMIN 2.4 g/dL (3.4-5.0); BILIRUBIN - TOTAL 0.52 mg/dL (0.2-1.3); CALCIUM 8.6 mg/dL (8.5-10.1); PROTEIN - SERUM 7.1 g/dL (6.4-8.2)
[2018-01-07 03:42] LABS: ANION GAP 4.4 mmol/L (8-16); CARBON DIOXIDE 45.9 mmol/L (21.0-32.0); POTASSIUM - SERUM 3.3 mmol/L (3.5-5.1)
[2018-01-08 00:08] VITALS: BP 110/63
[2018-01-08 04:00] VITALS: BP 124/76
[2018-01-08 07:10] LABS: BASOPHILS 0.1 % (0-2); EOSINOPHILS 3.2 % (0-7); HEMATOCRIT 32.1 % (36.0-48.0); HEMOGLOBIN 9.5 g/dL (12-16); IMMATURE GRANULOCYTES 1.2 % (0-5); LYMPHOCYTES 14.3 % (15-50); MCH 26.5 pg (26.0-34.0); MCHC 29.6 g/dL (31.0-37.0); MCV 89.4 fL (80.0-100.0); MEAN PLATELET VOLUME 8.9 fL (7.4-10.4); MONOCYTES 7.9 % (2-11); NEUTROPHILS 73.3 % (40-80); PLATELET COUNT 292 10x3/uL (130-400); RBC 3.59 10x6/uL (4.00-5.40); RDW 15.6 % (11.5-14.5); WBC 9.9 10x3/uL (4.8-10.8)
[2018-01-08 07:34] LABS: ALBUMIN 2.5 g/dL (3.4-5.0); ANION GAP 7.5 mmol/L (8-16); BILIRUBIN - TOTAL 0.37 mg/dL (0.2-1.3); CALCIUM 8.9 mg/dL (8.5-10.1); CARBON DIOXIDE 38.8 mmol/L (21.0-32.0); CREATININE - SERUM 1.2 mg/dL (0.6-1.3); MAGNESIUM - SERUM 1.6 mg/dL (1.8-2.4); PHOSPHOROUS 4.9 mg/dL (2.5-4.9); POTASSIUM - SERUM 3.3 mmol/L (3.5-5.1); PROTEIN - SERUM 7.2 g/dL (6.4-8.2)
[2018-01-08 08:29] VITALS: BP 98/40
[2018-01-08 12:30] VITALS: BP 121/77
[2018-01-08 16:18] VITALS: BP 118/62; BP 135/49
[2018-01-08 20:00] VITALS: BP 99/55
[2018-01-09] VITALS: BP 106/45
[2018-01-09 04:00] VITALS: BP 128/50
[2018-01-09 05:00] LABS: BASOPHILS 0.1 % (0-2); EOSINOPHILS 4.1 % (0-7); HEMATOCRIT 30.1 % (36.0-48.0); HEMOGLOBIN 8.8 g/dL (12-16); IMMATURE GRANULOCYTES 1.1 % (0-5); LYMPHOCYTES 16.1 % (15-50); MCHC 29.2 g/dL (31.0-37.0); MCV 88.8 fL (80.0-100.0); MEAN PLATELET VOLUME 8.5 fL (7.4-10.4); MONOCYTES 7.8 % (2-11); NEUTROPHILS 70.8 % (40-80); PLATELET COUNT 258 10x3/uL (130-400); RBC 3.39 10x6/uL (4.00-5.40); RDW 15.4 % (11.5-14.5)
[2018-01-09 05:32] LABS: ALBUMIN 2.4 g/dL (3.4-5.0); ANION GAP 5.1 mmol/L (8-16); BILIRUBIN - TOTAL 0.3 mg/dL (0.2-1.3); CALCIUM 8.5 mg/dL (8.5-10.1); CARBON DIOXIDE 38.5 mmol/L (21.0-32.0); CREATININE - SERUM 0.9 mg/dL (0.6-1.3); POTASSIUM - SERUM 3.6 mmol/L (3.5-5.1); PROTEIN - SERUM 6.7 g/dL (6.4-8.2)
[2018-01-09 08:13] VITALS: BP 109/56
[2018-01-09 12:35] VITALS: BP 122/66
[2018-01-09 16:48] VITALS: BP 109/55
[2018-01-09 20:46] VITALS: BP 150/81
[2018-01-10 04:39] VITALS: BP 123/62
[2018-01-10 05:27] LABS: BASOPHILS 0.1 % (0-2); HEMATOCRIT 30.3 % (36.0-48.0); HEMOGLOBIN 8.9 g/dL (12-16); IMMATURE GRANULOCYTES 1.5 % (0-5); LYMPHOCYTES 13.9 % (15-50); MCH 26.3 pg (26.0-34.0); MCHC 29.4 g/dL (31.0-37.0); MCV 89.4 fL (80.0-100.0); MEAN PLATELET VOLUME 8.5 fL (7.4-10.4); MONOCYTES 5.4 % (2-11); NEUTROPHILS 76.1 % (40-80); PLATELET COUNT 266 10x3/uL (130-400); RBC 3.39 10x6/uL (4.00-5.40); RDW 15.4 % (11.5-14.5); WBC 11.2 10x3/uL (4.8-10.8)
[2018-01-10 05:42] LABS: ALBUMIN 2.5 g/dL (3.4-5.0); BILIRUBIN - TOTAL 0.2 mg/dL (0.2-1.3); CALCIUM 8.8 mg/dL (8.5-10.1); CARBON DIOXIDE 38.5 mmol/L (21.0-32.0); CREATININE - SERUM 0.9 mg/dL (0.6-1.3); POTASSIUM - SERUM 3.5 mmol/L (3.5-5.1)
[2018-01-10 06:09] LABS: PROTEIN - SERUM 6.9 g/dL (6.4-8.2)
[2018-01-10 08:06] VITALS: BP 122/67
[2018-01-10 13:04] VITALS: BP 112/51
[2018-01-10 15:27] VITALS: BP 123/46
[2018-01-10 22:09] VITALS: BP 124/61
[2018-01-11 04:46] LABS: BASOPHILS 0.1 % (0-2); EOSINOPHILS 0 % (0-7); HEMATOCRIT 32.3 % (36.0-48.0); HEMOGLOBIN 9.6 g/dL (12-16); IMMATURE GRANULOCYTES 2.3 % (0-5); LYMPHOCYTES 5.7 % (15-50); MCH 26.2 pg (26.0-34.0); MCHC 29.7 g/dL (31.0-37.0); MEAN PLATELET VOLUME 8.8 fL (7.4-10.4); MONOCYTES 3.8 % (2-11); NEUTROPHILS 88.1 % (40-80); PLATELET COUNT 287 10x3/uL (130-400); RBC 3.67 10x6/uL (4.00-5.40); WBC 12.1 10x3/uL (4.8-10.8)
[2018-01-11 04:55] VITALS: BP 149/68
[2018-01-11 05:02] LABS: ANION GAP 7.3 mmol/L (8-16); CALCIUM 8.6 mg/dL (8.5-10.1); CARBON DIOXIDE 35.9 mmol/L (21.0-32.0); MAGNESIUM - SERUM 1.7 mg/dL (1.8-2.4); POTASSIUM - SERUM 4.2 mmol/L (3.5-5.1)
[2018-01-11 08:00] VITALS: BP 120/53
[2018-01-11 11:45] VITALS: BP 130/61
[2018-01-11 15:46] VITALS: BP 103/48
[2018-01-11 19:56] VITALS: BP 136/56
[2018-01-12] VITALS: BP 111/55
[2018-01-12 04:06] VITALS: BP 121/55
[2018-01-12 06:44] LABS: BASOPHILS 0.2 % (0-2); EOSINOPHILS 0.9 % (0-7); HEMATOCRIT 34.9 % (36.0-48.0); HEMOGLOBIN 10.3 g/dL (12-16); MCH 26.3 pg (26.0-34.0); MCHC 29.5 g/dL (31.0-37.0); MEAN PLATELET VOLUME 8.7 fL (7.4-10.4); MONOCYTES 10.3 % (2-11); NEUTROPHILS 66.6 % (40-80); RBC 3.92 10x6/uL (4.00-5.40); RDW 15.4 % (11.5-14.5); WBC 12.9 10x3/uL (4.8-10.8)
[2018-01-12 06:47] LABS: PLATELET COUNT 380 10x3/uL (130-400)
[2018-01-12 07:05] LABS: CALCIUM 9.2 mg/dL (8.5-10.1); CARBON DIOXIDE 36.6 mmol/L (21.0-32.0); CREATININE - SERUM 0.9 mg/dL (0.6-1.3); MAGNESIUM - SERUM 1.8 mg/dL (1.8-2.4); POTASSIUM - SERUM 3.6 mmol/L (3.5-5.1)
[2018-01-12 07:12] LABS: PHOSPHOROUS 3.8 mg/dL (2.5-4.9)
[2018-01-12 08:45] VITALS: BP 145/70
[2018-01-12 12:39] VITALS: BP 143/75
[2018-01-12 16:37] VITALS: BP 142/70
[2018-01-12 19:59] VITALS: BP 118/65
[2018-01-13] VITALS: BP 116/57
[2018-01-13 04:00] VITALS: BP 139/56
[2018-01-13 07:53] LABS: ANION GAP 8.8 mmol/L (8-16); CALCIUM 9.2 mg/dL (8.5-10.1); CREATININE - SERUM 1.1 mg/dL (0.6-1.3); POTASSIUM - SERUM 3.9 mmol/L (3.5-5.1)
[2018-01-13 07:58] LABS: CARBON DIOXIDE 40.1 mmol/L (21.0-32.0)
[2018-01-13 09:18] VITALS: BP 111/74
[2018-01-13 13:25] VITALS: BP 116/68
[2018-01-13] MEDS ORDERED: LASIX40 MG PO (15:27)
[2018-01-13] MEDS ORDERED: BROVANA15 MCG/2 M INH (15:27)
[2018-01-13 16:20] VITALS: BP 120/55
[2018-01-13] MEDS ORDERED: PREDNISONE10 MG PO (18:12)
[2018-01-13] MEDS ORDERED: LEVAQUIN500 MG PO ×2 (18:12→18:14)
[2018-01-23] MEDS ORDERED: VIBRAMYCIN 100100 MG PO (09:05)
[2018-01-23] MEDS ORDERED: PREDNISONE10 MG PO (09:08)
== END 2018-01-13 19:57 | disposition home or self-care (01) | DRG 291 ==
LOC: D.ER 11:01 → D.MS 16:41 → D.ICU 01-05 21:45 → D.MS 01-07 05:44
PROVIDERS: Emergency Medicine; Family Medicine; Internal Medicine Pulmonary Disease
DX: I50.33 Acute on chronic diastolic (congestive) heart failure (principal); J18.9 Pneumonia, unspecified organism; J96.21 Acute and chronic respiratory failure with hypoxia; J96.22 Acute and chronic respiratory failure with hypercapnia; E87.4 Mixed disorder of acid-base balance; E66.2 Morbid (severe) obesity with alveolar hypoventilation; Z68.45 Body mass index [BMI] 70 or greater, adult; G72.81 Critical illness myopathy; J44.0 Chronic obstructive pulmonary disease with (acute) lower respiratory infection; J44.1 Chronic obstructive pulmonary disease with (acute) exacerbation; Y95 Nosocomial condition; Z99.81 Dependence on supplemental oxygen; G47.33 Obstructive sleep apnea (adult) (pediatric); E11.40 Type 2 diabetes mellitus with diabetic neuropathy, unspecified; E83.42 Hypomagnesemia; Z95.0 Presence of cardiac pacemaker; Z86.718 Personal history of other venous thrombosis and embolism; K75.81 Nonalcoholic steatohepatitis (NASH); J32.9 Chronic sinusitis, unspecified

== ENCOUNTER 2018-01-31 15:26 | Inpatient (IN) | payer MEDICARE, MEDICAID ==
[~2018-01-31] VITALS: Ht 152.4 cm; Wt 95.6 kg
--- NOTE | ~2018-01-31 | MORECARE ---
CASE MANAGEMENT DISCHARGE SUMMARY PATIENT: DOUGLAS HILLS UNIT: [id number] ADM DATE: 01/31/18 AGE: 52 : 63 SEX: F ROOM/BED: D.2228 AUTHOR: CARMEN, BOBBIN MARKER PHYSICIAN: REFERRING PHYSICIAN: LOPEZ OLIVEIRA MD DATE OF SERVICE: 01/31/18 Discharge Plan Patient Name: DOUGLAS HILLS Facility: [facility]:[place] : 1965 Planned Disposition: Group Home Facility Anticipated Discharge Date: Discharge Date: 02/19/2018 Expected LOS: 0 Initial Reviewer: [id number] Initial Review Date: 02/12/2018 Generated: 02/21/18 11:16 am Comments DCP- Discharge Planning Updated by [email or web address]: Dori Young on 02/19/18 2:[address] Patient Name: DOUGLAS HILLS Encounter No: [id number] : 1965 Primary Insurance: [facility] MEDICARE SOLUTIONS Anticipated DC Date: Planned Disposition: Group Home Facility External Planned Provider: : DCP follow-up note: Patient and family in agreement with discharge plan. IMM served, Patient will be going to [facility] will be picking her up at 3:30. She will go to a skilled bed. No changes to plan. Case management will follow and assist as needed. Dori Young DCP- Discharge Planning Updated by [id number]: Dori Young on 02/18/18 10:[address] REFERRAL SENT TO [facility] DCP- Discharge Planning Updated by [email or web address]: Ginny Saavedra on 02/13/18 1:[address] CM spoke with Berenice Estrada ([facility]) explained that the OT eval has been faxed as requested. Awaiting determination / auth. CM will continue to follow and assist as needed for discharge planning. DCP- Discharge Planning Updated by [id number]: Ginny Saavedra on 02/13/18 10:[address] CM received call back from Don at [facility]. Faxed records as requested. Awaiting determination / auth. DCP- Discharge Planning Updated by [email or web address]: Ginny Saavedra on 02/12/18 1:[address] Patient Name: DOUGLAS HILLS Admission Status: ER Accout number: [id number] Admission Date: 01-31-2018 : 1965 Admission Diagnosis:ACUTE AND CHRONIC RESPIRATORY FAILURE WITH HYPOXIA Attending: LOPEZ LYLES Current LOS: 12 Anticipated DC Date: Planned Disposition: Group Home Facility Primary Insurance: [facility] MEDICARE SOLUTIONS Discharge Planning Comments: CM met with patient and daughter regarding discharge planning. Patient and daughter plan for patient to be admitted to SNF after discharge. MATT signed for [facility](Medicare bed). Patient and daughter requested and CM provided written information related to health care proxy. CM called and left message with Don at the [facility] to return call regarding referral. CM will continue to follow and assist with discharge planning as needed. Paper Sorter: Ginny Saavedra DCPIA - Discharge Planning Initial Assessment Updated by [email or web address]: Ginny Saavedra on 02/12/18 2:20 pm * Is the patient Alert and Oriented? Yes * How many steps to enterexit or inside your home? * PCP Dr. Burnett * [facility] * Preadmission Environment Home with Family * ADLs Partial Dependent * Partial ADLs (Assistance needed) Bathing * Equipment BIPAP Glucometer Nebulizer Oxygen Rolling Walker * List name and contact numbers for known caregivers / representatives who currently or will assist patient after discharge: Delfina Li [phone] * Verbal permission to speak to the caregivers and representatives has been obtained from the patient. Yes * Community resources currently utilized Home Health * Please name any agencies selected above. [place] * Additional services required to return to the preadmission environment? No * Can the patient safely return to the preadmission environment? Yes * Has this patient been hospitalized within the prior 30 days at any hospital? Yes External Providers External Provider: [facility] Next Contact Date: Service Request Date: Service Type: Resolution: Reviewer: Comments: External Provider: [facility] Next Contact Date: Service Request Date: Service Type: Resolution: Reviewer: Comments: Coverage Notice Reviewer: [id number] - Ginny Saavedra Notice Issued Date-Time: 02/12/2018 14:43 Notice Type: Patient Choice Letter Notice Delivered To: Patient Relationship to Patient: Self Ingot Car Operator Name: Delivery Method: HAND - Hand Delivered Adrianne Days: Prior Verbal Notification: Recipient Understood Notice: Yes Recipient Signature: Yes Med Rec Note Co-signed by Attending: Coverage Notice Comment: Reviewer: [email or web address] Bayron Young Notice Issued Date-Time: 02/19/2018 15:00 Notice Type: IM Discharge Notice Notice Delivered To: Patient Relationship to Patient: Ingot Car Operator Name: Delivery Method: HAND - Hand Delivered Adrianne Days: Prior Verbal Notification: Recipient Understood Notice: Yes Recipient Signature: Yes Med Rec Note Co-signed by Attending: Coverage Notice Comment: Patient Name: DOUGLAS HILLS Page [phone] All edits/amendments must be made on the electronic document DICTATION DATE: 02/21/18 1016 DIAMOND GRINDER: 02/21/18 1016 RPT#: [id number] DC DATE:02/19/18 STATUS: DIS IN [facility] [address] [place] [address] END OF REPORT
--- NOTE | ~2018-01-31 | CN ---
PATIENT NAME:DOUGLAS HILLS MEDICAL RECORD: [id number] : [birth year] LOCATION:[id number] ADMIT DATE: 01/31/18 ACCOUNT: [id number] CONSULTING PHYSICIAN: ALIZE LAMB MD REFERRING PHYSICIAN: LOPEZ OLIVEIRA MD DATE OF CONSULTATION: 02/01/2018 CONSULT REQUESTING PHYSICIAN: Dr. Marbella Oliveira. REASON FOR CONSULTATION: Acute hypoxic hypercapnic respiratory failure. HISTORY OF PRESENT ILLNESS: Ms. Hills is a 52-year-old female, very well known to our service. She came into the ER yesterday with acute shortness of breath. On ABG, her pCO2 was 128. The patient was put on BiPAP, but the patient's breathing was getting worse, so she was a bit more unresponsive. This morning, the repeat ABG showed a pH of 7.1 and the pCO2 was 128. The patient was electively intubated. Now, the history is taken mainly by reviewing the patient's note and talking to the nursing staff. REVIEW OF SYSTEMS: The detail is not obtainable. PAST MEDICAL HISTORY: 1. Recurrent hypoxic hypercapnic respiratory failure. 2. COPD. 3. Obesity hypoventilation syndrome. 4. Morbid obesity. 5. Congestive heart failure. 6. Allergic rhinitis. 7. Obstructive sleep apnea. The patient is on trilogy at home. 8. Diabetes mellitus type 2. 9. Morbid obesity. 10. Obesity hypoventilation syndrome. PAST SURGICAL HISTORY: 1. Hysterectomy. 2. Cholecystectomy. 3. Two C-sections in the past. ALLERGIES: She is allergic to TORADOL, LYRICA, LEXAPRO, possible to VANCOMYCIN. MEDICATIONS: Nasuni is reviewed. PERSONAL AND SOCIAL HISTORY: The patient is a nonsmoker, nondrinker. FAMILY HISTORY: Noncontributory. PHYSICAL EXAMINATION: GENERAL: Now, the patient is orally intubated and sedated. VITAL SIGNS: The blood pressure is 102/44, pulse is 91, respiration 20, temperature 97, SPO2 is 100% on mechanical ventilation with SIMV tidal volume of 650, rate of 20. HEENT: Conjunctivae are pink. Sclerae are not icteric. NECK: Supple. There is no JVD. CHEST: There are bilateral crackles. No wheezing. HEART: Rate and rhythm is regular, normal sound, no murmur. CONSULT REPORT [id number] DOUGLAS HILLS ABDOMEN: Soft, bowel sounds present. No hepatosplenomegaly. RECTAL: Deferred. EXTREMITIES: No cyanosis, no clubbing. There is 2+ pedal edema. SKIN: Warm, normal turgor. CENTRAL NERVOUS SYSTEM: The patient is orally intubated and sedated. IMAGING: Chest radiograph, there is increased interstitial marking. LABORATORY DATA: CBC: WBC 15.5, hemoglobin 11.1, hematocrit 38.7, the platelet count 172. Chemistry: Sodium is 140, potassium 4.4, BUN is 16, creatinine 0.7, bicarbonate is 49.8. ABG: The pH is 7.17, the pCO2 is 128.2, the pO2 is 55, bicarbonate is 46.7. The lactic acid level is 0.94. IMPRESSION: 1. Kpurl-lc-trvtknp hypoxic hypercapnic respiratory failure. 2. Respiratory acidosis. 3. Pulmonary edema. 4. COPD, acute exacerbation. 5. Possible underlying pneumonia consistent with hospital-acquired pneumonia. 6. Leukocytosis. 7. Obesity hypoventilation syndrome. 8. Congestive heart failure. 9. Obstructive sleep apnea. RECOMMENDATION: 1. We will continue methylprednisolone IV. Continue mechanical ventilation, adjust the setting after the ABG. 2. Methylprednisolone IV. 3. Cefepime and Levaquin IV. 4. Albuterol ipratropium nebulizer. 5. Brovana and budesonide nebulizer. 6. Diamox IV. 7. DVT and GI prophylaxis. 8. I will recommend a permanent tracheostomy for this patient with a history of recurrent hypercapnic respiratory failure that was suggested last year. Dr. Oliveira, thank you for involving me in the care of Ms. Hills. TRANSINT:[id number] Voice Confirmation ID: [id number] DOCUMENT ID: [id number] ALIZE LAMB MD at 1110 CC: [id number] DICTATION DATE: 02/01/18 1140 CLAIM PROCESSOR: 02/01/18 1153 ADM IN [place] [id number] [place] [address]
[2018-01-31 16:17] LABS: BASOPHILS 0.1 % (0-2); EOSINOPHILS 3.7 % (0-7); HEMATOCRIT 38.7 % (36.0-48.0); HEMOGLOBIN 11.1 g/dL (12-16); IMMATURE GRANULOCYTES 0.5 % (0-5); LYMPHOCYTES 16.3 % (15-50); MCH 26.4 pg (26.0-34.0); MCHC 28.7 g/dL (31.0-37.0); MCV 92.1 fL (80.0-100.0); MEAN PLATELET VOLUME 8.8 fL (7.4-10.4); MONOCYTES 5.5 % (2-11); NEUTROPHILS 73.9 % (40-80); RDW 15.2 % (11.5-14.5); WBC 15.5 10x3/uL (4.8-10.8)
[2018-01-31 16:18] LABS: PLATELET COUNT 172 10x3/uL (130-400)
[2018-01-31 16:38] LABS: ALKALINE PHOSPHATASE 86 U/L (46-116); ALT (SGPT) 21 U/L (10-68); BILIRUBIN - TOTAL 0.48 mg/dL (0.2-1.3); CALCIUM 8.9 mg/dL (8.5-10.1); CHLORIDE - SERUM 97 mmol/L (98-107); CREATININE - SERUM 0.5 mg/dL (0.6-1.3); POTASSIUM - SERUM 4.2 mmol/L (3.5-5.1); PROTEIN - SERUM 6.4 g/dL (6.4-8.2); SODIUM 143 mmol/L (136-145); UREA NITROGEN 9 mg/dL (7-18); eGFR NON AFRICAN AMERICAN > 90 mL/min (90-120)
[2018-01-31 16:39] LABS: CALC OSMOLALITY 290 mosm/kg (275-300); GLUCOSE 219 mg/dL (74-106)
[2018-01-31 16:43] LABS: TROPONIN-I < 0.017 ng/mL (0.000-0.060)
[2018-02-01] VITALS (18 sets, daily range): BP systolic 79–134; BP diastolic 44–69; BMI 68.4; BMI 68.3
[2018-02-01 06:53] LABS: BASOPHILS 0.1 % (0-2); EOSINOPHILS 0 % (0-7); HEMATOCRIT 37.2 % (36.0-48.0); HEMOGLOBIN 10.7 g/dL (12-16); IMMATURE GRANULOCYTES 1.5 % (0-5); LYMPHOCYTES 4.2 % (15-50); MCH 26.4 pg (26.0-34.0); MCHC 28.8 g/dL (31.0-37.0); MCV 91.9 fL (80.0-100.0); MEAN PLATELET VOLUME 8.9 fL (7.4-10.4); MONOCYTES 4.3 % (2-11); NEUTROPHILS 89.9 % (40-80); PLATELET COUNT 159 10x3/uL (130-400); RBC 4.05 10x6/uL (4.00-5.40); WBC 12.7 10x3/uL (4.8-10.8)
[2018-02-01 07:28] LABS: ALBUMIN 2.9 g/dL (3.4-5.0); ALKALINE PHOSPHATASE 85 U/L (46-116); ALT (SGPT) 20 U/L (10-68); CALC OSMOLALITY 290 mosm/kg (275-300); CALCIUM 8.8 mg/dL (8.5-10.1); CHLORIDE - SERUM 94 mmol/L (98-107); CREATININE - SERUM 0.7 mg/dL (0.6-1.3); GLUCOSE 299 mg/dL (74-106); POTASSIUM - SERUM 4.4 mmol/L (3.5-5.1); SODIUM 140 mmol/L (136-145); UREA NITROGEN 16 mg/dL (7-18)
[2018-02-01 07:29] LABS: eGFR NON AFRICAN AMERICAN > 90 mL/min (90-120)
[2018-02-01 07:30] LABS: CARBON DIOXIDE 49.8 mmol/L (21.0-32.0)
[2018-02-02] VITALS (23 sets, daily range): BP systolic 87–142; BP diastolic 45–75; Ht 152.4 cm; Wt 95.6 kg
[2018-02-02 05:22] LABS: BASOPHILS 0 % (0-2); EOSINOPHILS 0 % (0-7); HEMATOCRIT 35.2 % (36.0-48.0); HEMOGLOBIN 10.5 g/dL (12-16); IMMATURE GRANULOCYTES 0.8 % (0-5); LYMPHOCYTES 6.8 % (15-50); MCH 26.3 pg (26.0-34.0); MCHC 29.8 g/dL (31.0-37.0); MEAN PLATELET VOLUME 9.8 fL (7.4-10.4); MONOCYTES 5.4 % (2-11); RBC 3.99 10x6/uL (4.00-5.40); RDW 15.1 % (11.5-14.5); WBC 11.7 10x3/uL (4.8-10.8)
[2018-02-02 05:50] LABS: MCV 88.2 fL (80.0-100.0); PLATELET COUNT 256 10x3/uL (130-400)
[2018-02-02 06:18] LABS: ALBUMIN 2.9 g/dL (3.4-5.0); BILIRUBIN - TOTAL 0.52 mg/dL (0.2-1.3); CALCIUM 8.8 mg/dL (8.5-10.1); PROTEIN - SERUM 6.9 g/dL (6.4-8.2)
[2018-02-02 06:23] LABS: ANION GAP 5.8 mmol/L (8-16); POTASSIUM - SERUM 3.3 mmol/L (3.5-5.1)
[2018-02-02 06:24] LABS: CARBON DIOXIDE 41.5 mmol/L (21.0-32.0)
[2018-02-02 07:54] LABS: MAGNESIUM - SERUM 1.5 mg/dL (1.8-2.4); PHOSPHOROUS 2.2 mg/dL (2.5-4.9)
[2018-02-03] VITALS (24 sets, daily range): BP systolic 91–143; BP diastolic 58–85
[2018-02-03 05:58] LABS: BASOPHILS 0.1 % (0-2); EOSINOPHILS 0 % (0-7); HEMATOCRIT 37.7 % (36.0-48.0); HEMOGLOBIN 11.7 g/dL (12-16); IMMATURE GRANULOCYTES 0.5 % (0-5); MCH 26.7 pg (26.0-34.0); MEAN PLATELET VOLUME 9.5 fL (7.4-10.4); MONOCYTES 6.8 % (2-11); NEUTROPHILS 86.6 % (40-80); PLATELET COUNT 282 10x3/uL (130-400); RBC 4.39 10x6/uL (4.00-5.40); RDW 15.5 % (11.5-14.5); WBC 13.3 10x3/uL (4.8-10.8)
[2018-02-03 06:03] LABS: MCV 85.9 fL (80.0-100.0)
[2018-02-03 06:09] LABS: ALBUMIN 3.2 g/dL (3.4-5.0); ANION GAP 8.3 mmol/L (8-16); BILIRUBIN - TOTAL 0.44 mg/dL (0.2-1.3); POTASSIUM - SERUM 3.3 mmol/L (3.5-5.1); PROTEIN - SERUM 7.6 g/dL (6.4-8.2)
[2018-02-03 07:49] LABS: MAGNESIUM - SERUM 1.9 mg/dL (1.8-2.4); PHOSPHOROUS 4.8 mg/dL (2.5-4.9)
[2018-02-04] VITALS (24 sets, daily range): BP systolic 92–128; BP diastolic 65–94
[2018-02-04 04:55] LABS: BASOPHILS 0 % (0-2); EOSINOPHILS 0.1 % (0-7); HEMATOCRIT 39.3 % (36.0-48.0); HEMOGLOBIN 12.2 g/dL (12-16); IMMATURE GRANULOCYTES 0.4 % (0-5); LYMPHOCYTES 7.8 % (15-50); MCH 26.3 pg (26.0-34.0); MCV 84.7 fL (80.0-100.0); MEAN PLATELET VOLUME 9.5 fL (7.4-10.4); MONOCYTES 7.2 % (2-11); NEUTROPHILS 84.5 % (40-80); PLATELET COUNT 243 10x3/uL (130-400); RBC 4.64 10x6/uL (4.00-5.40); RDW 15.5 % (11.5-14.5)
[2018-02-04 04:56] LABS: WBC 17.9 10x3/uL (4.8-10.8)
[2018-02-04 05:17] LABS: ALBUMIN 3.2 g/dL (3.4-5.0); ANION GAP 11.1 mmol/L (8-16); BILIRUBIN - TOTAL 0.41 mg/dL (0.2-1.3); CALCIUM 8.8 mg/dL (8.5-10.1); CARBON DIOXIDE 35.8 mmol/L (21.0-32.0); CREATININE - SERUM 0.9 mg/dL (0.6-1.3); PROTEIN - SERUM 7.6 g/dL (6.4-8.2)
[2018-02-04 05:29] LABS: POTASSIUM - SERUM 2.9 mmol/L (3.5-5.1)
[2018-02-05] VITALS (25 sets, daily range): BP systolic 94–135; BP diastolic 64–93
[2018-02-05 05:07] LABS: HEMATOCRIT 42.5 % (36.0-48.0); HEMOGLOBIN 13.7 g/dL (12-16); MCH 26.7 pg (26.0-34.0); MCHC 32.2 g/dL (31.0-37.0); MCV 82.7 fL (80.0-100.0); MEAN PLATELET VOLUME 9.6 fL (7.4-10.4); PLATELET COUNT 284 10x3/uL (130-400); RBC 5.14 10x6/uL (4.00-5.40); RDW 15.2 % (11.5-14.5); WBC 22.8 10x3/uL (4.8-10.8)
[2018-02-05 05:12] LABS: ALBUMIN 3.5 g/dL (3.4-5.0); BILIRUBIN - TOTAL 0.58 mg/dL (0.2-1.3); CALCIUM 9.5 mg/dL (8.5-10.1); CARBON DIOXIDE 37.2 mmol/L (21.0-32.0); CREATININE - SERUM 1.1 mg/dL (0.6-1.3); MAGNESIUM - SERUM 2.4 mg/dL (1.8-2.4); PHOSPHOROUS 3.8 mg/dL (2.5-4.9); PROTEIN - SERUM 8.5 g/dL (6.4-8.2)
[2018-02-05 05:16] LABS: ANION GAP 10.2 mmol/L (8-16); POTASSIUM - SERUM 2.4 mmol/L (3.5-5.1)
[2018-02-05 05:42] LABS: LYMPHOCYTES 13 % (15-50); MONOCYTES 2 % (2-11); NEUTROPHILS 81 % (40-80); PLATELET ESTIMATE NORMAL
[2018-02-06] VITALS (24 sets, daily range): BP systolic 100–138; BP diastolic 62–99
[2018-02-06 05:53] LABS: BASOPHILS 0 % (0-2); EOSINOPHILS 0.2 % (0-7); HEMATOCRIT 41.5 % (36.0-48.0); HEMOGLOBIN 13.4 g/dL (12-16); IMMATURE GRANULOCYTES 0.6 % (0-5); LYMPHOCYTES 7.2 % (15-50); MCHC 32.3 g/dL (31.0-37.0); MCV 83.7 fL (80.0-100.0); MEAN PLATELET VOLUME 9.9 fL (7.4-10.4); MONOCYTES 6.4 % (2-11); NEUTROPHILS 85.6 % (40-80); PLATELET COUNT 256 10x3/uL (130-400); RBC 4.96 10x6/uL (4.00-5.40); RDW 15.3 % (11.5-14.5)
[2018-02-06 05:54] LABS: WBC 25.4 10x3/uL (4.8-10.8)
[2018-02-06 05:59] LABS: ALBUMIN 3.3 g/dL (3.4-5.0); ANION GAP 10.4 mmol/L (8-16); BILIRUBIN - TOTAL 0.43 mg/dL (0.2-1.3); CALCIUM 9.3 mg/dL (8.5-10.1); CARBON DIOXIDE 32.9 mmol/L (21.0-32.0); CREATININE - SERUM 0.9 mg/dL (0.6-1.3); MAGNESIUM - SERUM 2.5 mg/dL (1.8-2.4); POTASSIUM - SERUM 4.3 mmol/L (3.5-5.1); PROTEIN - SERUM 7.9 g/dL (6.4-8.2)
[2018-02-07] VITALS (25 sets, daily range): BP systolic 107–139; BP diastolic 62–92
[2018-02-07 04:29] LABS: BASOPHILS 0 % (0-2); EOSINOPHILS 0.2 % (0-7); HEMATOCRIT 38.2 % (36.0-48.0); HEMOGLOBIN 12.2 g/dL (12-16); IMMATURE GRANULOCYTES 0.9 % (0-5); LYMPHOCYTES 6.4 % (15-50); MCH 26.7 pg (26.0-34.0); MCHC 31.9 g/dL (31.0-37.0); MCV 83.6 fL (80.0-100.0); MEAN PLATELET VOLUME 10.2 fL (7.4-10.4); MONOCYTES 6.3 % (2-11); NEUTROPHILS 86.2 % (40-80); PLATELET COUNT 260 10x3/uL (130-400); RBC 4.57 10x6/uL (4.00-5.40); RDW 15.2 % (11.5-14.5)
[2018-02-07 04:33] LABS: CALCIUM 9.2 mg/dL (8.5-10.1); CARBON DIOXIDE 31.5 mmol/L (21.0-32.0); CHLORIDE - SERUM 93 mmol/L (98-107); SODIUM 133 mmol/L (136-145); UREA NITROGEN 43 mg/dL (7-18)
[2018-02-07 04:38] LABS: CALC OSMOLALITY 289 mosm/kg (275-300); CREATININE - SERUM 0.6 mg/dL (0.6-1.3); GLUCOSE 333 mg/dL (74-106); POTASSIUM - SERUM 3.5 mmol/L (3.5-5.1); eGFR NON AFRICAN AMERICAN > 90 mL/min (90-120)
[2018-02-07 18:00] LABS: MACROPHAGES BF 11 %; MESOTHELIALS BF 1 %; NEUT - BF 82 %
[2018-02-08] VITALS (22 sets, daily range): BP systolic 92–126; BP diastolic 59–81
[2018-02-08 04:44] LABS: BASOPHILS 0 % (0-2); EOSINOPHILS 0.3 % (0-7); HEMATOCRIT 37.1 % (36.0-48.0); HEMOGLOBIN 12.3 g/dL (12-16); IMMATURE GRANULOCYTES 1.1 % (0-5); LYMPHOCYTES 6.7 % (15-50); MCHC 33.2 g/dL (31.0-37.0); MCV 81.4 fL (80.0-100.0); MEAN PLATELET VOLUME 9.4 fL (7.4-10.4); MONOCYTES 7.5 % (2-11); NEUTROPHILS 84.4 % (40-80); PLATELET COUNT 252 10x3/uL (130-400); RBC 4.56 10x6/uL (4.00-5.40); RDW 15.2 % (11.5-14.5); WBC 24.7 10x3/uL (4.8-10.8)
[2018-02-08 05:39] LABS: ALKALINE PHOSPHATASE 84 U/L (46-116); ALT (SGPT) 11 U/L (10-68); BILIRUBIN - TOTAL 0.36 mg/dL (0.2-1.3); CALC OSMOLALITY 283 mosm/kg (275-300); CALCIUM 9.2 mg/dL (8.5-10.1); CHLORIDE - SERUM 92 mmol/L (98-107); CREATININE - SERUM 0.7 mg/dL (0.6-1.3); GLUCOSE 290 mg/dL (74-106); MAGNESIUM - SERUM 1.9 mg/dL (1.8-2.4); PHOSPHOROUS 3.9 mg/dL (2.5-4.9); POTASSIUM - SERUM 3.6 mmol/L (3.5-5.1); PROTEIN - SERUM 6.8 g/dL (6.4-8.2); SODIUM 131 mmol/L (136-145); UREA NITROGEN 41 mg/dL (7-18); eGFR NON AFRICAN AMERICAN > 90 mL/min (90-120)
[2018-02-08 18:09] LABS: AFB SPECIMEN PROCESSING Concentration (())
[2018-02-09] VITALS (23 sets, daily range): BP systolic 92–135; BP diastolic 54–97
[2018-02-09 02:39] LABS: BASOPHILS 0.1 % (0-2); EOSINOPHILS 2.1 % (0-7); HEMOGLOBIN 12.9 g/dL (12-16); LYMPHOCYTES 12.3 % (15-50); MCH 27.1 pg (26.0-34.0); MCHC 33.1 g/dL (31.0-37.0); MCV 81.9 fL (80.0-100.0); MEAN PLATELET VOLUME 9.5 fL (7.4-10.4); MONOCYTES 11.3 % (2-11); NEUTROPHILS 72.2 % (40-80); PLATELET COUNT 293 10x3/uL (130-400); RBC 4.76 10x6/uL (4.00-5.40); RDW 15.2 % (11.5-14.5); WBC 22.2 10x3/uL (4.8-10.8)
[2018-02-09 02:47] LABS: CALCIUM 9.4 mg/dL (8.5-10.1); CHLORIDE - SERUM 91 mmol/L (98-107); CREATININE - SERUM 0.7 mg/dL (0.6-1.3); MAGNESIUM - SERUM 1.9 mg/dL (1.8-2.4); PHOSPHOROUS 3.7 mg/dL (2.5-4.9); SODIUM 132 mmol/L (136-145); UREA NITROGEN 46 mg/dL (7-18); eGFR NON AFRICAN AMERICAN > 90 mL/min (90-120)
[2018-02-09 02:53] LABS: CALC OSMOLALITY 284 mosm/kg (275-300); GLUCOSE 235 mg/dL (74-106)
[2018-02-09 02:54] LABS: POTASSIUM - SERUM 2.5 mmol/L (3.5-5.1)
[2018-02-10] VITALS (21 sets, daily range): BP systolic 104–146; BP diastolic 56–89
[2018-02-10 03:35] LABS: HEMATOCRIT 38.7 % (36.0-48.0); HEMOGLOBIN 12.4 g/dL (12-16); LYMPHOCYTES 5.3 % (15-50); MCH 26.2 pg (26.0-34.0); MCV 81.6 fL (80.0-100.0); MEAN PLATELET VOLUME 9.2 fL (7.4-10.4); NEUTROPHILS 91.6 % (40-80); RBC 4.74 10x6/uL (4.00-5.40); RDW 14.8 % (11.5-14.5); WBC 19.6 10x3/uL (4.8-10.8)
[2018-02-10 03:36] LABS: PLATELET COUNT 376 10x3/uL (130-400)
[2018-02-10 03:53] LABS: CALCIUM 9.2 mg/dL (8.5-10.1); CARBON DIOXIDE 31.4 mmol/L (21.0-32.0); CHLORIDE - SERUM 91 mmol/L (98-107); CREATININE - SERUM 0.8 mg/dL (0.6-1.3); MAGNESIUM - SERUM 2.2 mg/dL (1.8-2.4); PHOSPHOROUS 4.2 mg/dL (2.5-4.9); SODIUM 129 mmol/L (136-145); UREA NITROGEN 55 mg/dL (7-18); eGFR NON AFRICAN AMERICAN 79 mL/min (90-120)
[2018-02-10 04:09] LABS: CALC OSMOLALITY 292 mosm/kg (275-300); GLUCOSE 433 mg/dL (74-106); POTASSIUM - SERUM 4.1 mmol/L (3.5-5.1)
[2018-02-11] VITALS (24 sets, daily range): BP systolic 91–149; BP diastolic 63–92
[2018-02-11 02:28] LABS: HEMOGLOBIN 12.5 g/dL (12-16); MCH 26.8 pg (26.0-34.0); MCHC 32.9 g/dL (31.0-37.0); MCV 81.5 fL (80.0-100.0); MEAN PLATELET VOLUME 9.1 fL (7.4-10.4); NEUTROPHILS 88.2 % (40-80); PLATELET COUNT 419 10x3/uL (130-400); RBC 4.66 10x6/uL (4.00-5.40); RDW 14.4 % (11.5-14.5); WBC 21.9 10x3/uL (4.8-10.8)
[2018-02-11 02:39] LABS: CALC OSMOLALITY 294 mosm/kg (275-300); CALCIUM 9.5 mg/dL (8.5-10.1); CARBON DIOXIDE 30.6 mmol/L (21.0-32.0); CHLORIDE - SERUM 93 mmol/L (98-107); CREATININE - SERUM 0.8 mg/dL (0.6-1.3); GLUCOSE 312 mg/dL (74-106); MAGNESIUM - SERUM 2.3 mg/dL (1.8-2.4); PHOSPHOROUS 5.1 mg/dL (2.5-4.9); POTASSIUM - SERUM 3.9 mmol/L (3.5-5.1); SODIUM 132 mmol/L (136-145); UREA NITROGEN 62 mg/dL (7-18); eGFR NON AFRICAN AMERICAN 79 mL/min (90-120)
[2018-02-11 17:13] LABS: FUNGUS STAIN Final report (())
[2018-02-12] VITALS (25 sets, daily range): BP systolic 114–165; BP diastolic 62–99
[2018-02-12 05:00] LABS: BASOPHILS 0.1 % (0-2); EOSINOPHILS 0.4 % (0-7); HEMATOCRIT 37.7 % (36.0-48.0); HEMOGLOBIN 12.1 g/dL (12-16); IMMATURE GRANULOCYTES 4.6 % (0-5); LYMPHOCYTES 6.5 % (15-50); MCH 26.8 pg (26.0-34.0); MCHC 32.1 g/dL (31.0-37.0); MCV 83.4 fL (80.0-100.0); MEAN PLATELET VOLUME 9.4 fL (7.4-10.4); NEUTROPHILS 82.4 % (40-80); PLATELET COUNT 464 10x3/uL (130-400); RBC 4.52 10x6/uL (4.00-5.40); RDW 15.1 % (11.5-14.5); WBC 22.2 10x3/uL (4.8-10.8)
[2018-02-12 05:04] LABS: CALC OSMOLALITY 297 mosm/kg (275-300); CALCIUM 9.3 mg/dL (8.5-10.1); CARBON DIOXIDE 33.4 mmol/L (21.0-32.0); CHLORIDE - SERUM 93 mmol/L (98-107); CREATININE - SERUM 0.8 mg/dL (0.6-1.3); GLUCOSE 354 mg/dL (74-106); POTASSIUM - SERUM 4.1 mmol/L (3.5-5.1); SODIUM 133 mmol/L (136-145); UREA NITROGEN 62 mg/dL (7-18); eGFR NON AFRICAN AMERICAN 79 mL/min (90-120)
[2018-02-13] VITALS (21 sets, daily range): BP systolic 100–152; BP diastolic 49–98
[2018-02-13 08:16] LABS: BASOPHILS 0.1 % (0-2); EOSINOPHILS 0.6 % (0-7); HEMATOCRIT 37.6 % (36.0-48.0); HEMOGLOBIN 12.1 g/dL (12-16); IMMATURE GRANULOCYTES 4.6 % (0-5); LYMPHOCYTES 13.9 % (15-50); MCH 26.6 pg (26.0-34.0); MCHC 32.2 g/dL (31.0-37.0); MCV 82.6 fL (80.0-100.0); MEAN PLATELET VOLUME 9.1 fL (7.4-10.4); MONOCYTES 9.9 % (2-11); NEUTROPHILS 70.9 % (40-80); PLATELET COUNT 497 10x3/uL (130-400); RBC 4.55 10x6/uL (4.00-5.40); RDW 14.9 % (11.5-14.5); WBC 20.6 10x3/uL (4.8-10.8)
[2018-02-13 08:26] LABS: CALCIUM 9.4 mg/dL (8.5-10.1); CARBON DIOXIDE 36.1 mmol/L (21.0-32.0); CHLORIDE - SERUM 94 mmol/L (98-107); CREATININE - SERUM 0.6 mg/dL (0.6-1.3); POTASSIUM - SERUM 3.5 mmol/L (3.5-5.1); SODIUM 133 mmol/L (136-145); eGFR NON AFRICAN AMERICAN > 90 mL/min (90-120)
[2018-02-13 08:27] LABS: CALC OSMOLALITY 284 mosm/kg (275-300); GLUCOSE 232 mg/dL (74-106); UREA NITROGEN 45 mg/dL (7-18)
[2018-02-14] VITALS (12 sets, daily range): BP systolic 91–146; BP diastolic 55–747
[2018-02-14 05:22] LABS: BASOPHILS 0.2 % (0-2); EOSINOPHILS 0.3 % (0-7); HEMATOCRIT 38.3 % (36.0-48.0); LYMPHOCYTES 9.9 % (15-50); MCH 26.5 pg (26.0-34.0); MCHC 31.3 g/dL (31.0-37.0); MCV 84.7 fL (80.0-100.0); MEAN PLATELET VOLUME 9.3 fL (7.4-10.4); MONOCYTES 6.8 % (2-11); NEUTROPHILS 77.8 % (40-80); PLATELET COUNT 407 10x3/uL (130-400); RBC 4.52 10x6/uL (4.00-5.40); RDW 15.1 % (11.5-14.5); WBC 18.7 10x3/uL (4.8-10.8)
[2018-02-14 05:50] LABS: CALC OSMOLALITY 291 mosm/kg (275-300); CALCIUM 9.1 mg/dL (8.5-10.1); CARBON DIOXIDE 33.2 mmol/L (21.0-32.0); CHLORIDE - SERUM 98 mmol/L (98-107); CREATININE - SERUM 0.5 mg/dL (0.6-1.3); GLUCOSE 227 mg/dL (74-106); SODIUM 137 mmol/L (136-145); UREA NITROGEN 42 mg/dL (7-18); eGFR NON AFRICAN AMERICAN > 90 mL/min (90-120)
[2018-02-14 05:53] LABS: POTASSIUM - SERUM 4.8 mmol/L (3.5-5.1)
[2018-02-15 04:04] VITALS: BP 106/41
[2018-02-15 07:34] LABS: BASOPHILS 0.2 % (0-2); EOSINOPHILS 2.7 % (0-7); HEMATOCRIT 35.6 % (36.0-48.0); HEMOGLOBIN 10.8 g/dL (12-16); IMMATURE GRANULOCYTES 3.7 % (0-5); LYMPHOCYTES 21.8 % (15-50); MCH 26.4 pg (26.0-34.0); MCHC 30.3 g/dL (31.0-37.0); MEAN PLATELET VOLUME 9.3 fL (7.4-10.4); MONOCYTES 9.3 % (2-11); NEUTROPHILS 62.3 % (40-80); PLATELET COUNT 412 10x3/uL (130-400); RBC 4.09 10x6/uL (4.00-5.40); RDW 15.2 % (11.5-14.5)
[2018-02-15 07:50] LABS: CALC OSMOLALITY 293 mosm/kg (275-300); CALCIUM 8.4 mg/dL (8.5-10.1); CHLORIDE - SERUM 100 mmol/L (98-107); CREATININE - SERUM 0.5 mg/dL (0.6-1.3); GLUCOSE 198 mg/dL (74-106); POTASSIUM - SERUM 4.3 mmol/L (3.5-5.1); SODIUM 138 mmol/L (136-145); UREA NITROGEN 45 mg/dL (7-18); eGFR NON AFRICAN AMERICAN > 90 mL/min (90-120)
[2018-02-15 09:01] VITALS: BP 129/72
[2018-02-15 13:45] VITALS: BP 110/86
[2018-02-15 16:09] VITALS: BP 119/60
[2018-02-15 19:48] VITALS: BP 123/53
[2018-02-16 01:16] VITALS: BP 150/68
[2018-02-16 04:09] VITALS: BP 115/52
[2018-02-16 07:48] LABS: BASOPHILS 0.2 % (0-2); EOSINOPHILS 3.7 % (0-7); HEMATOCRIT 37.1 % (36.0-48.0); HEMOGLOBIN 11.3 g/dL (12-16); IMMATURE GRANULOCYTES 2.9 % (0-5); LYMPHOCYTES 21.8 % (15-50); MCH 26.5 pg (26.0-34.0); MCHC 30.5 g/dL (31.0-37.0); MCV 86.9 fL (80.0-100.0); MEAN PLATELET VOLUME 9.7 fL (7.4-10.4); NEUTROPHILS 63.4 % (40-80); PLATELET COUNT 316 10x3/uL (130-400); RBC 4.27 10x6/uL (4.00-5.40); RDW 15.5 % (11.5-14.5); WBC 14.8 10x3/uL (4.8-10.8)
[2018-02-16 08:01] LABS: CALCIUM 8.7 mg/dL (8.5-10.1); CARBON DIOXIDE 34.4 mmol/L (21.0-32.0); CHLORIDE - SERUM 104 mmol/L (98-107); GLUCOSE 174 mg/dL (74-106); SODIUM 143 mmol/L (136-145)
[2018-02-16 08:02] LABS: CALC OSMOLALITY 293 mosm/kg (275-300); CREATININE - SERUM 0.3 mg/dL (0.6-1.3); POTASSIUM - SERUM 5.3 mmol/L (3.5-5.1); UREA NITROGEN 27 mg/dL (7-18); eGFR NON AFRICAN AMERICAN > 90 mL/min (90-120)
[2018-02-16 08:23] VITALS: BP 117/64
[2018-02-16 11:53] VITALS: BP 111/82
[2018-02-16 20:22] VITALS: BP 109/32
[2018-02-17 04:38] VITALS: BP 122/46
[2018-02-17 07:42] LABS: BASOPHILS 0.1 % (0-2); EOSINOPHILS 3.6 % (0-7); HEMATOCRIT 34.4 % (36.0-48.0); HEMOGLOBIN 10.3 g/dL (12-16); IMMATURE GRANULOCYTES 1.4 % (0-5); MCH 26.1 pg (26.0-34.0); MCHC 29.9 g/dL (31.0-37.0); MCV 87.1 fL (80.0-100.0); MEAN PLATELET VOLUME 10.2 fL (7.4-10.4); MONOCYTES 7.6 % (2-11); NEUTROPHILS 66.3 % (40-80); PLATELET COUNT 152 10x3/uL (130-400); RBC 3.95 10x6/uL (4.00-5.40); RDW 15.2 % (11.5-14.5); WBC 11.5 10x3/uL (4.8-10.8)
[2018-02-17 08:03] LABS: ALBUMIN 2.5 g/dL (3.4-5.0); ALKALINE PHOSPHATASE 59 U/L (46-116); ALT (SGPT) 18 U/L (10-68); BILIRUBIN - TOTAL 0.28 mg/dL (0.2-1.3); CALC OSMOLALITY 285 mosm/kg (275-300); CALCIUM 8.3 mg/dL (8.5-10.1); CARBON DIOXIDE 38.6 mmol/L (21.0-32.0); CHLORIDE - SERUM 102 mmol/L (98-107); GLUCOSE 142 mg/dL (74-106); POTASSIUM - SERUM 4.3 mmol/L (3.5-5.1); PROTEIN - SERUM 5.4 g/dL (6.4-8.2); SODIUM 141 mmol/L (136-145); UREA NITROGEN 21 mg/dL (7-18)
[2018-02-17 08:10] LABS: CREATININE - SERUM 0.5 mg/dL (0.6-1.3)
[2018-02-17 08:11] LABS: eGFR NON AFRICAN AMERICAN > 90 mL/min (90-120)
[2018-02-17 09:37] VITALS: BP 111/63
[2018-02-17 13:24] VITALS: BP 112/64
[2018-02-17 17:37] VITALS: BP 110/64
[2018-02-17 19:33] VITALS: BP 129/52
[2018-02-17 23:43] VITALS: BP 155/61
[2018-02-18 04:08] VITALS: BP 141/66
[2018-02-18 05:06] LABS: BASOPHILS 0.2 % (0-2); HEMATOCRIT 34.2 % (36.0-48.0); LYMPHOCYTES 16.2 % (15-50); MCHC 29.2 g/dL (31.0-37.0); MEAN PLATELET VOLUME 8.9 fL (7.4-10.4); NEUTROPHILS 72.6 % (40-80); RBC 3.84 10x6/uL (4.00-5.40); RDW 15.3 % (11.5-14.5); WBC 12.9 10x3/uL (4.8-10.8)
[2018-02-18 05:13] LABS: MCV 89.1 fL (80.0-100.0); PLATELET COUNT 233 10x3/uL (130-400)
[2018-02-18 05:34] LABS: ALBUMIN 2.4 g/dL (3.4-5.0); ALKALINE PHOSPHATASE 73 U/L (46-116); ALT (SGPT) 18 U/L (10-68); BILIRUBIN - TOTAL 0.22 mg/dL (0.2-1.3); CALCIUM 8.1 mg/dL (8.5-10.1); CARBON DIOXIDE 36.4 mmol/L (21.0-32.0); CHLORIDE - SERUM 103 mmol/L (98-107); CREATININE - SERUM 0.5 mg/dL (0.6-1.3); POTASSIUM - SERUM 4.4 mmol/L (3.5-5.1); PROTEIN - SERUM 5.2 g/dL (6.4-8.2); SODIUM 139 mmol/L (136-145); UREA NITROGEN 21 mg/dL (7-18); eGFR NON AFRICAN AMERICAN > 90 mL/min (90-120)
[2018-02-18 05:37] LABS: CALC OSMOLALITY 286 mosm/kg (275-300); GLUCOSE 204 mg/dL (74-106)
[2018-02-18 08:09] LABS: VIRAL - RESULT No virus isolated. (())
[2018-02-18 08:48] VITALS: BP 122/53
[2018-02-18 12:58] VITALS: BP 101/45
[2018-02-18 16:27] VITALS: BP 121/54
[2018-02-18 21:32] VITALS: BP 104/47
[2018-02-19 04:13] VITALS: BP 108/58
[2018-02-19 06:22] LABS: BASOPHILS 0.1 % (0-2); EOSINOPHILS 2.9 % (0-7); HEMATOCRIT 33.6 % (36.0-48.0); HEMOGLOBIN 9.7 g/dL (12-16); IMMATURE GRANULOCYTES 0.8 % (0-5); LYMPHOCYTES 15.6 % (15-50); MCH 25.9 pg (26.0-34.0); MCHC 28.9 g/dL (31.0-37.0); MCV 89.8 fL (80.0-100.0); MEAN PLATELET VOLUME 9.1 fL (7.4-10.4); MONOCYTES 6.5 % (2-11); NEUTROPHILS 74.1 % (40-80); PLATELET COUNT 201 10x3/uL (130-400); RBC 3.74 10x6/uL (4.00-5.40); RDW 15.4 % (11.5-14.5); WBC 11.3 10x3/uL (4.8-10.8)
[2018-02-19 06:42] LABS: ALBUMIN 2.5 g/dL (3.4-5.0); ALKALINE PHOSPHATASE 63 U/L (46-116); ALT (SGPT) 18 U/L (10-68); CALC OSMOLALITY 290 mosm/kg (275-300); CALCIUM 8.2 mg/dL (8.5-10.1); CARBON DIOXIDE 38.4 mmol/L (21.0-32.0); CHLORIDE - SERUM 104 mmol/L (98-107); CREATININE - SERUM 0.5 mg/dL (0.6-1.3); GLUCOSE 148 mg/dL (74-106); PROTEIN - SERUM 5.6 g/dL (6.4-8.2); SODIUM 143 mmol/L (136-145); UREA NITROGEN 21 mg/dL (7-18); eGFR NON AFRICAN AMERICAN > 90 mL/min (90-120)
[2018-02-19 09:28] VITALS: BP 114/55
[2018-02-19 12:13] VITALS: BP 130/53
[2018-02-19] MEDS ORDERED: PROTONIX40 MG PO (13:38)
[2018-02-19 16:50] VITALS: BP 120/58
[2018-03-08 11:21] LABS: FUNGUS MYCOLOGY CULTURE Final report (())
[2018-03-29 07:34] LABS: ACID FAST CULTURE Negative (()); ACID FAST SMEAR Negative (())
== END 2018-02-19 17:25 | DRG 166 ==
LOC: D.ER 15:26 → D.MS 17:28 → D.ICU 17:28 → D.EDHOLD 17:28 → D.MS 18:40 → D.ICU 02-01 09:46 → D.MS 02-14 13:02
PROVIDERS: Emergency Medicine; Family Medicine; Internal Medicine Pulmonary Disease
PROC: 5A1955Z Respiratory Ventilation, Greater than 96 Consecutive Hours (ICD-10-PCS; 2018-01-31)
PROC: 0BH17EZ Insertion of Endotracheal Airway into Trachea, Via Natural or Artificial Opening (ICD-10-PCS; 2018-01-31)
PROC: 05HY33Z Insertion of Infusion Device into Upper Vein, Percutaneous Approach (ICD-10-PCS; principal; 2018-02-01)
PROC: 0B9J8ZX Drainage of Left Lower Lung Lobe, Via Natural or Artificial Opening Endoscopic, Diagnostic (ICD-10-PCS; 2018-02-07)
PROC: 0B9F8ZX Drainage of Right Lower Lung Lobe, Via Natural or Artificial Opening Endoscopic, Diagnostic (ICD-10-PCS; 2018-02-07)
DX: J96.21 Acute and chronic respiratory failure with hypoxia (principal); I50.33 Acute on chronic diastolic (congestive) heart failure; J18.9 Pneumonia, unspecified organism; E87.2 Acidosis; J81.1 Chronic pulmonary edema; E66.2 Morbid (severe) obesity with alveolar hypoventilation; Z68.44 Body mass index [BMI] 60.0-69.9, adult; J44.1 Chronic obstructive pulmonary disease with (acute) exacerbation; E87.1 Hypo-osmolality and hyponatremia; R53.81 Other malaise; J96.22 Acute and chronic respiratory failure with hypercapnia; I11.0 Hypertensive heart disease with heart failure; E11.9 Type 2 diabetes mellitus without complications; K21.9 Gastro-esophageal reflux disease without esophagitis; G47.33 Obstructive sleep apnea (adult) (pediatric); J32.9 Chronic sinusitis, unspecified; K74.60 Unspecified cirrhosis of liver; E87.6 Hypokalemia; R79.89 Other specified abnormal findings of blood chemistry; E03.9 Hypothyroidism, unspecified; Z95.0 Presence of cardiac pacemaker; E78.5 Hyperlipidemia, unspecified; D72.829 Elevated white blood cell count, unspecified; Z86.718 Personal history of other venous thrombosis and embolism

== ENCOUNTER 2018-03-02 12:51 | Inpatient (IN) | payer MEDICARE, MEDICAID ==
[~2018-03-02] VITALS: Ht 152.4 cm; Wt 152.8 kg
[2018-03-02] VITALS (7 sets, daily range): BP systolic 98–133; BP diastolic 43–057; Ht 152.4 cm; Wt 152.8 kg
--- NOTE | ~2018-03-02 | CN ---
PATIENT NAME:DOUGLAS HILLS MEDICAL RECORD: [id number] : 63 LOCATION:D.MS Ramos2204 ADMIT DATE: 03/02/18 ACCOUNT: [id number] CONSULTING PHYSICIAN: BRENDA SCHMITZ REFERRING PHYSICIAN: BRANDON CORRALES MD DATE OF CONSULTATION: 03/03/2018 HISTORY OF PRESENT ILLNESS: This is a 52-year-old female who has had a history of chronic obstructive pulmonary disease for about 10-15 years. She has also had morbid obesity, obstructive sleep apnea, uses CPAP machine. The patient had increasing shortness of breath, was seen in the Emergency Room and was noted to have metabolic alkalosis with CO2 retention and also hypokalemia. The patient was coughing up some clear sputum but the sputum is decreased. Denies any shortness of breath, lying supine. PAST MEDICAL HISTORY: Remarkable for diabetes, hypertension, congestive heart failure, COPD, BiPAP, obstructive sleep apnea, acid reflux, anxiety, and depression. PAST SURGICAL HISTORY: Include gallbladder surgery, hysterectomy, 2 C-sections, left knee replacement. ALLERGIES: INCLUDE LYRICA, TRAMADOL, VANCOMYCIN, AND GABAPENTIN. MEDICATIONS: Include DuoNeb q. 6 hours, Flonase 2 puffs daily, potassium chloride 40 mEq t.i.d., Cipro 2 drops to each eye, tetracycline 100 mg b.i.d., prednisone 20 mg p.o. as directed, Brovana 50 mcg b.i.d., Lasix 40 mg b.i.d., Protonix 40 mg b.i.d., Pulmicort 0.5 mg b.i.d., Diamox 250 mg b.i.d. SOCIAL HISTORY: The patient used to smoke, does not smoke now, uses alcohol or recreational drugs. FAMILY HISTORY: Remarkable for hypertension and lung disease. REVIEW OF SYSTEMS: GENERAL/CONSTITUTIONAL: The patient denies any fever, chills or weight loss. SHEENT: There is no headache. She has had nasal drainage. CARDIOPULMONARY: The patient denies orthopnea or PND. She has a cough and whitish sputum with greenish tinge. GENITOURINARY: There is no frequency or dysuria. There is no hematuria. PHYSICAL EXAMINATION: GENERAL: Physical exam reveals a morbidly obese female who is in no acute distress. VITAL SIGNS: Temperature 99.1, heart rate of 96, respiratory rate of 16, blood pressure 115/60. Saturations 93% on 2 liters. SHEENT: The patient is normocephalic. Pupils are equal and reactive. Nasal passages show some mild redness, no obstruction. NECK: Supple. Trachea is midline. There is no adenopathy, there is no tenderness. CHEST: Exam shows some mild crackles on coughing. No chest wall tenderness. HEART: Exam shows no jugular venous distention, no murmur or gallops. ABDOMEN: Benign without any tenderness without distention. EXTREMITIES: There is no clubbing, cyanosis or edema. CONSULT REPORT [id number] DOUGLAS HILLS LABORATORY DATA: Shows sodium 138, potassium 2.4, carbon dioxide is 44. BUN is 19, creatinine is 0.5. CBC showed white count 7.4, hemoglobin 9.4, and platelet count is 250,000. Arterial blood gases, pH 7.45, pCO2 of 69, pO2 of 75, and bicarbonate is 48. Chest x-ray showed no acute cardiopulmonary disease. IMPRESSION: 1. Acute exacerbation of chronic obstructive pulmonary disease with acute bronchitis and postnasal drainage. The patient will need saline spray. Continue bronchodilators and antibiotic therapy. 2. Rhinitis, probably nonspecific, secondary to oxygen prongs. 3. Metabolic alkalosis, probably secondary to diuretic. 4. Congestive heart failure. No recent echo done. There is no echo to verify. 5. Morbid obesity. 6. Obstructive sleep apnea and possible obesity hypoventilation syndrome. 7. Hypokalemia, supplement. 8. Metabolic alkalosis. The patient may need to hold Lasix and have some IV fluids to correct metabolic alkalosis. PLAN: 1. Bronchodilators with DuoNeb. 2. Empiric antibiotics. 3. Nasal spray and Flonase and saline. 4. CPAP at night and during the daytime as needed. 5. Potassium supplementation. 6. We will hold Lasix. 7. DuoNeb. 8. Sputum cultures. 9. Use BiPAP at night and during the daytime as needed. Time spent 60 minutes. TRANSINT:[id number] Voice Confirmation ID: [id number] DOCUMENT ID: [id number] BRENDA SCHMITZ at 1307 CC: [id number] DICTATION DATE: 08/12/18 1939 DANCE HALL HOSTESS: 03/04/18 0801 DIS IN 03/07/18 [facility] [address] [facility] [place] [address]
[2018-03-02 13:41] LABS: BASOPHILS 0.1 % (0-2); EOSINOPHILS 3.5 % (0-7); HEMOGLOBIN 10.3 g/dL (12-16); IMMATURE GRANULOCYTES 0.4 % (0-5); LYMPHOCYTES 22.1 % (15-50); MCH 26.8 pg (26.0-34.0); MCHC 31.2 g/dL (31.0-37.0); MCV 85.9 fL (80.0-100.0); MEAN PLATELET VOLUME 9.2 fL (7.4-10.4); MONOCYTES 7.5 % (2-11); NEUTROPHILS 66.4 % (40-80); PLATELET COUNT 256 10x3/uL (130-400); RBC 3.84 10x6/uL (4.00-5.40); RDW 16.3 % (11.5-14.5); WBC 9.8 10x3/uL (4.8-10.8)
[2018-03-02 13:49] LABS: INR 0.94 (0.85-1.17); PROTIME 12.2 SECONDS (11.6-15.0)
[2018-03-02 13:51] LABS: D-DIMER-QUANTITATIVE < 0.27 ug/mLFEU (0.20-0.54)
[2018-03-02 14:08] LABS: ALBUMIN 2.9 g/dL (3.4-5.0); ALKALINE PHOSPHATASE 85 U/L (46-116); ALT (SGPT) 19 U/L (10-68); AMYLASE - SERUM 16 U/L (25-115); BILIRUBIN - TOTAL 0.53 mg/dL (0.2-1.3); C-REACTIVE PROTEIN 6.5 mg/dL (0.0-0.9); CALC OSMOLALITY 280 mosm/kg (275-300); CALCIUM 8.5 mg/dL (8.5-10.1); CHLORIDE - SERUM 89 mmol/L (98-107); CKMB 0.5 U/L (0.0-3.6); CREATINE KINASE 25 UL (21-215); CREATININE - SERUM 0.7 mg/dL (0.6-1.3); GLUCOSE 200 mg/dL (74-106); LIPASE 127 U/L (73-393); PRO BNP 189 pg/mL (0-125); PROTEIN - SERUM 6.2 g/dL (6.4-8.2); SODIUM 135 mmol/L (136-145); UREA NITROGEN 26 mg/dL (7-18); eGFR NON AFRICAN AMERICAN > 90 mL/min (90-120)
[2018-03-02 14:24] LABS: TROPONIN-I < 0.017 ng/mL (0.000-0.060)
[2018-03-02 14:26] LABS: CARBON DIOXIDE 101.3 mmol/L (21.0-32.0)
[2018-03-02 14:27] LABS: POTASSIUM - SERUM 2.1 mmol/L (3.5-5.1)
[2018-03-02 14:53] LABS: APPEARANCE CLEAR (CLEAR); BILIRUBIN NEGATIVE (NEGATIVE); COLOR YELLOW (YELLOW); GLUCOSE NEGATIVE (NEGATIVE); KETONE NEGATIVE (NEGATIVE); NITRITE NEGATIVE (NEGATIVE); PROTEIN NEGATIVE (NEGATIVE); SPECIFIC GRAVITY 1.005 (1.005-1.020); UROBILINOGEN NORMAL (NORMAL)
[2018-03-03] VITALS: BP 103/55
[2018-03-03] MEDS ORDERED: HYDROCODONE-APA1 TAB PO (03:26)
[2018-03-03] MEDS ORDERED: MUCINEX DM ER1 EAC1 PO (03:34)
[2018-03-03 04:00] VITALS: BP 121/73
[2018-03-03 06:59] LABS: BASOPHILS 0.1 % (0-2); EOSINOPHILS 4.8 % (0-7); HEMATOCRIT 30.6 % (36.0-48.0); HEMOGLOBIN 9.4 g/dL (12-16); IMMATURE GRANULOCYTES 0.7 % (0-5); LYMPHOCYTES 25.4 % (15-50); MCH 26.3 pg (26.0-34.0); MCHC 30.7 g/dL (31.0-37.0); MCV 85.7 fL (80.0-100.0); MEAN PLATELET VOLUME 8.7 fL (7.4-10.4); MONOCYTES 8.7 % (2-11); NEUTROPHILS 60.3 % (40-80); PLATELET COUNT 251 10x3/uL (130-400); RBC 3.57 10x6/uL (4.00-5.40); RDW 16.3 % (11.5-14.5); WBC 7.4 10x3/uL (4.8-10.8)
[2018-03-03 07:32] LABS: CHLORIDE - SERUM 95 mmol/L (98-107); GLUCOSE 167 mg/dL (74-106); SODIUM 138 mmol/L (136-145)
[2018-03-03 07:52] LABS: CALC OSMOLALITY 281 mosm/kg (275-300); CREATININE - SERUM 0.5 mg/dL (0.6-1.3); UREA NITROGEN 19 mg/dL (7-18)
[2018-03-03 07:53] LABS: eGFR NON AFRICAN AMERICAN > 90 mL/min (90-120)
[2018-03-03 07:54] LABS: CARBON DIOXIDE 43.8 mmol/L (21.0-32.0)
[2018-03-03 07:55] LABS: POTASSIUM - SERUM 2.4 mmol/L (3.5-5.1)
[2018-03-03 08:55] VITALS: BP 115/60
[2018-03-03 10:20] LABS: MAGNESIUM - SERUM 1.1 mg/dL (1.8-2.4); PHOSPHOROUS 3.4 mg/dL (2.5-4.9)
[2018-03-03 20:52] VITALS: BP 107/41
[2018-03-04 04:03] VITALS: BP 100/50
[2018-03-04 07:02] LABS: BASOPHILS 0.2 % (0-2); HEMATOCRIT 30.8 % (36.0-48.0); HEMOGLOBIN 9.2 g/dL (12-16); LYMPHOCYTES 20.4 % (15-50); MCH 26.5 pg (26.0-34.0); MCHC 29.9 g/dL (31.0-37.0); MONOCYTES 7.6 % (2-11); NEUTROPHILS 66.8 % (40-80); RBC 3.47 10x6/uL (4.00-5.40); RDW 16.6 % (11.5-14.5); WBC 9.2 10x3/uL (4.8-10.8)
[2018-03-04 07:12] LABS: MCV 88.8 fL (80.0-100.0); PLATELET COUNT 306 10x3/uL (130-400)
[2018-03-04 07:46] LABS: ALBUMIN 2.5 g/dL (3.4-5.0); ALKALINE PHOSPHATASE 73 U/L (46-116); ALT (SGPT) 19 U/L (10-68); BILIRUBIN - TOTAL 0.44 mg/dL (0.2-1.3); CALCIUM 7.8 mg/dL (8.5-10.1); CHLORIDE - SERUM 97 mmol/L (98-107); MAGNESIUM - SERUM 1.1 mg/dL (1.8-2.4); PHOSPHOROUS 3.1 mg/dL (2.5-4.9); PROTEIN - SERUM 5.5 g/dL (6.4-8.2); SODIUM 141 mmol/L (136-145); UREA NITROGEN 20 mg/dL (7-18)
[2018-03-04 07:51] LABS: CALC OSMOLALITY 290 mosm/kg (275-300); CREATININE - SERUM 0.7 mg/dL (0.6-1.3); GLUCOSE 223 mg/dL (74-106); POTASSIUM - SERUM 3.2 mmol/L (3.5-5.1); eGFR NON AFRICAN AMERICAN > 90 mL/min (90-120)
[2018-03-04 07:53] LABS: CARBON DIOXIDE 42.4 mmol/L (21.0-32.0)
[2018-03-04 08:43] VITALS: BP 101/72
[2018-03-04 13:16] VITALS: BP 117/69
[2018-03-04 21:02] VITALS: BP 107/45
[2018-03-05 04:33] VITALS: BP 96/47
[2018-03-05 06:06] LABS: BASOPHILS 0.1 % (0-2); EOSINOPHILS 3.3 % (0-7); HEMATOCRIT 29.9 % (36.0-48.0); HEMOGLOBIN 8.8 g/dL (12-16); LYMPHOCYTES 19.8 % (15-50); MCH 26.5 pg (26.0-34.0); MCHC 29.4 g/dL (31.0-37.0); MCV 90.1 fL (80.0-100.0); MEAN PLATELET VOLUME 8.9 fL (7.4-10.4); MONOCYTES 8.3 % (2-11); NEUTROPHILS 66.5 % (40-80); PLATELET COUNT 344 10x3/uL (130-400); RBC 3.32 10x6/uL (4.00-5.40); RDW 16.9 % (11.5-14.5); WBC 9.6 10x3/uL (4.8-10.8)
[2018-03-05 06:38] LABS: ALBUMIN 2.2 g/dL (3.4-5.0); ALKALINE PHOSPHATASE 61 U/L (46-116); BILIRUBIN - TOTAL 0.31 mg/dL (0.2-1.3); CALC OSMOLALITY 289 mosm/kg (275-300); CALCIUM 7.6 mg/dL (8.5-10.1); CARBON DIOXIDE 38.8 mmol/L (21.0-32.0); CHLORIDE - SERUM 102 mmol/L (98-107); CREATININE - SERUM 0.6 mg/dL (0.6-1.3); GLUCOSE 182 mg/dL (74-106); PROTEIN - SERUM 5.5 g/dL (6.4-8.2); SODIUM 142 mmol/L (136-145); UREA NITROGEN 17 mg/dL (7-18); eGFR NON AFRICAN AMERICAN > 90 mL/min (90-120)
[2018-03-05 06:41] LABS: ALT (SGPT) 13 U/L (10-68); MAGNESIUM - SERUM 0.9 mg/dL (1.8-2.4); PHOSPHOROUS 2.2 mg/dL (2.5-4.9); POTASSIUM - SERUM 4.1 mmol/L (3.5-5.1)
[2018-03-05 09:21] VITALS: BP 148/60
[2018-03-05 12:38] VITALS: BP 109/53
[2018-03-05 17:30] VITALS: BP 121/58
[2018-03-05 21:36] VITALS: BP 105/52
[2018-03-06 04:17] VITALS: BP 99/51
[2018-03-06 06:32] LABS: BASOPHILS 0.2 % (0-2); EOSINOPHILS 3.7 % (0-7); HEMATOCRIT 31.7 % (36.0-48.0); HEMOGLOBIN 9.4 g/dL (12-16); IMMATURE GRANULOCYTES 2.1 % (0-5); LYMPHOCYTES 14.8 % (15-50); MCH 26.7 pg (26.0-34.0); MCHC 29.7 g/dL (31.0-37.0); MCV 90.1 fL (80.0-100.0); MEAN PLATELET VOLUME 8.8 fL (7.4-10.4); MONOCYTES 7.6 % (2-11); NEUTROPHILS 71.6 % (40-80); PLATELET COUNT 336 10x3/uL (130-400); RBC 3.52 10x6/uL (4.00-5.40); RDW 17.4 % (11.5-14.5)
[2018-03-06 06:51] LABS: ALBUMIN 2.5 g/dL (3.4-5.0); ALKALINE PHOSPHATASE 72 U/L (46-116); ALT (SGPT) 16 U/L (10-68); CALC OSMOLALITY 282 mosm/kg (275-300); CALCIUM 8.2 mg/dL (8.5-10.1); CARBON DIOXIDE 37.9 mmol/L (21.0-32.0); CHLORIDE - SERUM 98 mmol/L (98-107); CREATININE - SERUM 0.6 mg/dL (0.6-1.3); GLUCOSE 181 mg/dL (74-106); POTASSIUM - SERUM 3.9 mmol/L (3.5-5.1); PROTEIN - SERUM 6.3 g/dL (6.4-8.2); SODIUM 138 mmol/L (136-145); UREA NITROGEN 17 mg/dL (7-18); eGFR NON AFRICAN AMERICAN > 90 mL/min (90-120)
[2018-03-06 06:54] LABS: MAGNESIUM - SERUM 1.4 mg/dL (1.8-2.4); PHOSPHOROUS 3.3 mg/dL (2.5-4.9)
[2018-03-06 08:40] VITALS: BP 99/57
[2018-03-06 12:19] VITALS: BP 131/67
[2018-03-06 16:37] VITALS: BP 105/53
[2018-03-06 19:50] VITALS: BP 132/55
[2018-03-07 04:00] VITALS: BP 120/59
[2018-03-07 06:20] LABS: BASOPHILS 0.1 % (0-2); EOSINOPHILS 1.4 % (0-7); HEMATOCRIT 31.1 % (36.0-48.0); HEMOGLOBIN 9.5 g/dL (12-16); IMMATURE GRANULOCYTES 4.4 % (0-5); LYMPHOCYTES 12.8 % (15-50); MCH 26.8 pg (26.0-34.0); MCHC 30.5 g/dL (31.0-37.0); MONOCYTES 6.6 % (2-11); NEUTROPHILS 74.7 % (40-80); PLATELET COUNT 351 10x3/uL (130-400); RBC 3.54 10x6/uL (4.00-5.40); RDW 16.6 % (11.5-14.5); WBC 11.3 10x3/uL (4.8-10.8)
[2018-03-07 06:26] LABS: ALBUMIN 2.5 g/dL (3.4-5.0); ALKALINE PHOSPHATASE 70 U/L (46-116); ALT (SGPT) 12 U/L (10-68); BILIRUBIN - TOTAL 0.35 mg/dL (0.2-1.3); CALC OSMOLALITY 282 mosm/kg (275-300); CARBON DIOXIDE 36.3 mmol/L (21.0-32.0); CHLORIDE - SERUM 98 mmol/L (98-107); CREATININE - SERUM 0.5 mg/dL (0.6-1.3); GLUCOSE 181 mg/dL (74-106); MAGNESIUM - SERUM 1.6 mg/dL (1.8-2.4); PHOSPHOROUS 3.8 mg/dL (2.5-4.9); POTASSIUM - SERUM 4.4 mmol/L (3.5-5.1); PROTEIN - SERUM 5.9 g/dL (6.4-8.2); SODIUM 138 mmol/L (136-145); UREA NITROGEN 17 mg/dL (7-18); eGFR NON AFRICAN AMERICAN > 90 mL/min (90-120)
[2018-03-07 06:27] LABS: MCV 87.9 fL (80.0-100.0)
[2018-03-07 08:19] VITALS: BP 118/66
[2018-03-07] MEDS ORDERED: MAG 6464 MG PO (11:55)
[2018-03-07 12:55] VITALS: BP 136/46
== END 2018-03-07 17:30 | DRG 189 ==
LOC: D.ER 12:51 → D.MS 19:46 → D.EDHOLD 19:46 → D.MS 22:28
PROVIDERS: Family Medicine; Family Medicine Adult Medicine
DX: J96.22 Acute and chronic respiratory failure with hypercapnia (principal); J44.1 Chronic obstructive pulmonary disease with (acute) exacerbation; Z68.44 Body mass index [BMI] 60.0-69.9, adult; I50.32 Chronic diastolic (congestive) heart failure; G72.81 Critical illness myopathy; E66.2 Morbid (severe) obesity with alveolar hypoventilation; J96.21 Acute and chronic respiratory failure with hypoxia; E11.65 Type 2 diabetes mellitus with hyperglycemia; Z79.4 Long term (current) use of insulin; I11.0 Hypertensive heart disease with heart failure; K75.81 Nonalcoholic steatohepatitis (NASH); K74.60 Unspecified cirrhosis of liver; E03.9 Hypothyroidism, unspecified; K21.9 Gastro-esophageal reflux disease without esophagitis; E87.6 Hypokalemia; G47.33 Obstructive sleep apnea (adult) (pediatric); Z99.81 Dependence on supplemental oxygen; Z87.891 Personal history of nicotine dependence; E83.42 Hypomagnesemia

== ENCOUNTER 2018-03-09 20:14 | Emergency (ER) | payer MEDICARE, MEDICAID ==
[~2018-03-09] VITALS: Ht 152.4 cm; Wt 144.5 kg
[~2018-03-09 20:14] MED LIST changes: +MAG 6464 MG PO
[2018-03-09 20:17] VITALS: Ht 152.4 cm; Wt 144.5 kg
[2018-03-09 21:24] LABS: BASOPHILS 0.3 % (0-2); EOSINOPHILS 0.5 % (0-7); HEMATOCRIT 32.6 % (36.0-48.0); HEMOGLOBIN 9.9 g/dL (12-16); MCHC 30.4 g/dL (31.0-37.0); MCV 88.8 fL (80.0-100.0); MEAN PLATELET VOLUME 8.8 fL (7.4-10.4); MONOCYTES 5.9 % (2-11); NEUTROPHILS 78.3 % (40-80); PLATELET COUNT 362 10x3/uL (130-400); RBC 3.67 10x6/uL (4.00-5.40); RDW 16.3 % (11.5-14.5); WBC 19.2 10x3/uL (4.8-10.8)
[2018-03-09 21:48] LABS: ALBUMIN 3.1 g/dL (3.4-5.0); ALKALINE PHOSPHATASE 80 U/L (46-116); ALT (SGPT) 11 U/L (10-68); BILIRUBIN - TOTAL 0.41 mg/dL (0.2-1.3); CALCIUM 9.1 mg/dL (8.5-10.1); CHLORIDE - SERUM 93 mmol/L (98-107); CREATININE - SERUM 0.8 mg/dL (0.6-1.3); MAGNESIUM - SERUM 1.2 mg/dL (1.8-2.4); POTASSIUM - SERUM 3.4 mmol/L (3.5-5.1); PRO BNP 606 pg/mL (0-125); PROTEIN - SERUM 7.2 g/dL (6.4-8.2); SODIUM 140 mmol/L (136-145); UREA NITROGEN 20 mg/dL (7-18); eGFR NON AFRICAN AMERICAN 79 mL/min (90-120)
[2018-03-09 21:52] LABS: CALC OSMOLALITY 291 mosm/kg (275-300); GLUCOSE 277 mg/dL (74-106); TROPONIN-I < 0.017 ng/mL (0.000-0.060)
[2018-03-09 21:53] LABS: CARBON DIOXIDE 45.3 mmol/L (21.0-32.0)
[2018-03-09] MEDS ORDERED: LEVAQUIN750 MG PO (22:28)
[2018-03-10 01:57] VITALS: BP 161/91
== END 2018-03-10 02:04 ==
LOC: D.ER 20:14
PROVIDERS: Emergency Medicine
DX: J44.9 Chronic obstructive pulmonary disease, unspecified (principal); E11.9 Type 2 diabetes mellitus without complications; I10 Essential (primary) hypertension; K21.9 Gastro-esophageal reflux disease without esophagitis

== ENCOUNTER 2018-05-21 19:26 | Inpatient (IN) | payer MEDICARE, MEDICAID ==
[~2018-05-21] VITALS: Ht 152.4 cm; Wt 147.7 kg
--- NOTE | ~2018-05-21 | CN ---
PATIENT NAME:DOUGLAS HILLS MEDICAL RECORD: [id number] : 63 LOCATION:D.MS Ramos2238 ADMIT DATE: 05/21/18 ACCOUNT: [id number] CONSULTING PHYSICIAN: ALIZE LAMB MD REFERRING PHYSICIAN: JARON MORRISON MD DATE OF CONSULTATION: 05/22/2018 CONSULT REQUESTING PHYSICIAN: Jaron Morrison MD REASON FOR CONSULTATION: Acute hypoxic hypercapnic respiratory failure. HISTORY OF PRESENT ILLNESS: Ms. Hills is a 52-year-old female well known to our service. The patient came into the ER yesterday with worsening shortness of breath. She was very sleepy and lethargic. Currently, she does not have any fever and chill, but she was coughing and not feeling well. The lab work showed her CO2 was 104 and the bicarbonate was 49. The patient was put on BiPAP and admitted to the ICU. Now, she is more awake and alert. REVIEW OF SYSTEMS: As in history of present illness. PAST MEDICAL HISTORY: 1. Recurrent hypoxic hypercapnic respiratory failure. 2. COPD. 3. Obesity hypoventilation syndrome. 4. Obstructive sleep apnea. 5. Morbid obesity. 6. History of congestive heart failure with chronic diastolic dysfunction. 7. Allergic rhinitis. 8. Diabetes mellitus. 9. Morbid obesity. PAST SURGICAL HISTORY: 1. Hysterectomy. 2. Cholecystectomy. 3. Two in the past. ALLERGIES: SHE IS ALLERGIC TO TORADOL, LYRICA, LEXAPRO, AND POSSIBLE VANCOMYCIN. MEDICATIONS: [employer] is reviewed. PERSONAL AND SOCIAL HISTORY: The patient is an ex-smoker. She is a nondrinker. FAMILY HISTORY: Noncontributory. PHYSICAL EXAMINATION: GENERAL: The patient is now lying comfortably in bed. She is not in acute distress. VITAL SIGNS: The blood pressure is 112/54, pulse is 92, respiration 24, temperature is 98.5, SpO2 is 98% on BiPAP 35% oxygen. HEENT: Conjunctivae are pink. Sclerae are not icteric. NECK: Supple, no JVD. CHEST: There are bibasilar crackles. No wheezing. HEART: Rate and rhythm regular, normal sound, no murmur. CONSULT REPORT [id number] DOUGLAS HILLS ABDOMEN: Soft, bowel sounds present. No hepatosplenomegaly. RECTAL: Deferred. EXTREMITIES: No cyanosis, clubbing. 1+ pedal edema. SKIN: Warm, normal turgor. CENTRAL NERVOUS SYSTEM: The patient is awake and alert. There are no obvious cranial nerve abnormality. The gait was not tested. LABORATORY DATA: CBC: The WBC is 12.5, hemoglobin is 10.8, hematocrit is 37.3, the platelet count 202. ABG: The pH is 7.28, CO2 is 104.9, the pO2 is 49. Chemistries: Sodium 142, potassium 4.7, chloride 98, bicarbonate 45.4, BUN is 10, creatinine 0.7, glucose is 224. IMAGING: Chest radiograph: There are increased interstitial marking basilar atelectasis. IMPRESSION: 1. Egetl-ho-duvuojj hypoxic hypercapnic respiratory failure. 2. Respiratory acidosis secondary to #1. 3. Obesity hypoventilation syndrome. 4. Acute exacerbation of COPD. 5. Obstructive sleep apnea. 6. Gastroesophageal reflux. 7. CHF with chronic diastolic dysfunction. 8. Morbid obesity. RECOMMENDATION: 1. Adjust the dose of methylprednisone to 60 mg IV q.6 hourly. 2. Albuterol ipratropium nebulizer. 3. Brovana budesonide nebulizer. 4. Continue empiric Rocephin and Zithromax. 5. Start her on Diamox. 6. Start her on Lasix. 7. Check the ammonia level, check the TSH. Follow up labs and chest radiograph. Dr. Morrison, thank you for involving me in the care of Ms. Hills. TRANSINT:[id number] Voice Confirmation ID: [id number] DOCUMENT ID: [id number] ALIZE LAMB MD at 1234 CC: [id number] DICTATION DATE: 05/22/18 1343 EQUITY STRUCTURER: 05/22/18 1400 DIS IN 05/29/18 [place] [address] [place] [address]
--- NOTE | ~2018-05-21 | MORECARE ---
CASE MANAGEMENT DISCHARGE SUMMARY PATIENT: DOUGLAS HILLS UNIT: [id number] ADM DATE: 05/21/18 AGE: 52 : 63 SEX: F ROOM/BED: D.2238 AUTHOR: AMELIA MCGOVERN PHYSICIAN: REFERRING PHYSICIAN: FELIZ GUTHRIE MD DATE OF SERVICE: 05/30/18 Discharge Plan Patient Name: DOUGLAS HILLS Facility: [facility]:[place] : 1965 Planned Disposition: Home or Self Care Anticipated Discharge Date: 05/28/18 Discharge Date: 05/29/2018 Expected LOS: 7 Initial Reviewer: [email or web address] Initial Review Date: 05/26/2018 Generated: 05/30/18 7:45 am Comments DCP- Discharge Planning Updated by [email or web address]: Thelma Yusuf on 05/29/18 2:[address] Patient Name: DOUGLAS HILLS Encounter No: [id number] : 1965 Primary Insurance: [employer] MEDICARE SOLUTIONS Anticipated DC Date: 05-28-2018 Planned Disposition: Home or Self Care External Planned Provider: : DCP follow-up note: Patient in agreement with discharge plan. Declines HHS. No changes to plan. Case management will follow and assist as needed. Thelma Yusuf DCP- Discharge Planning Updated by [id number]: Thelma Yusuf on 05/29/18 9:[address] Met with patient, she is planning on discharging home with her daughter. States her daughter will pick her up. She has had home health with [facility] in the past, refuses home health at this time. States "I will call the doctor if I change my mind. I just will do house calls for now." States she has everything she needs at home. States her insurance will pay for all her prescriptions. No further needs identified. DCP- Discharge Planning Updated by [email or web address]: Marii Toussaint on 05/26/18 9:[address] Patient Name: DOUGLAS HILLS Admission Status: ER Accout number: [id number] Admission Date: 05-21-2018 : 1965 Admission Diagnosis:CHRONIC OBSTRUCTIVE PULMONARY DISEASE W (ACUTE) EXACERB Attending: FELIZ GUTHRIE Current LOS: 5 Anticipated DC Date: 05-28-2018 Planned Disposition: Home or Self Care Primary Insurance: [facility] MEDICARE SOLUTIONS Discharge Planning Comments: CM MET WITH PATIENT REGARDING D/C NEEDS AND PLANS. PATIENT STATED SHE LIVES WITH HER DAUGHTER (ALMA) AND SHE WILL DRIVE HER HOME AT DISCHARGE. PATIENT STATED SHE HAS 6 STEPS TO ENTER HOME AND NO STAIRS INSIDE. PATIENTS DAUGHTER HELPS HER WITH HER BATH, DRESSING, AND MEDS. PATIENT HAS A WALKER, CANE, TRILOGY, OXYGEN, NEBULIZER, GLUCOMETER, SHOWER CHAIR AND SHOWER BENCH AT HOME. PATIENT REFUSED HOME HEALTH AT THIS TIME. CM WILL CONTINUE TO FOLLOW PATIENT WITH D/C NEEDS AND PLANS. PCP [facility] [address] (DAUGHTER) [phone] Vehicle Maintenance Technician: Marii Toussaint DCP- Discharge Planning Updated by [email or web address]: Ginny Saavedra on 05/22/18 11:[address] CM attempted to do discharge assessment. Patient is currently on BiPap and unable to talk. No family available @this time. CM will continue to follow and assist as needed with discharge planning / needs. DCPIA - Discharge Planning Initial Assessment Updated by [email or web address]: Marii Toussaint on 05/26/18 10:33 am * Is the patient Alert and Oriented? Yes * How many steps to enter\\exit or inside your home? * PCP DR. PEDRAZA * Pharmacy [facility] ([facility]) * Preadmission Environment Home with Family * ADLs Partial Dependent * Partial ADLs (Assistance needed) Bathing Dressing Medication Management * Equipment Cane Glucometer Nebulizer Other Oxygen Shower Chair Walker * Other Equipment TRILOGY * List name and contact numbers for known caregivers / representatives who currently or will assist patient after discharge: ALMA (DAUGHTER) [phone] * Verbal permission to speak to the caregivers and representatives has been obtained from the patient. Yes * Community resources currently utilized None * Additional services required to return to the preadmission environment? Yes * Can the patient safely return to the preadmission environment? Yes * Has this patient been hospitalized within the prior 30 days at any hospital? No Coverage Notice Reviewer: [email or web address] Bayron Yusuf Notice Issued Date-Time: 05/29/2018 10:33 Notice Type: IM Discharge Notice Notice Delivered To: Patient Relationship to Patient: Self Command Center Officer Name: Delivery Method: HAND - Hand Delivered Adrianne Days: Prior Verbal Notification: Recipient Understood Notice: Yes Recipient Signature: Yes Med Rec Note Co-signed by Attending: Coverage Notice Comment: IMM explained, signed, copy given, original placed in MR Last DP export: 05/29/18 2:01 p Patient Name: DOUGLAS HILLS Page [id number] at 0645 All edits/amendments must be made on the electronic document DICTATION DATE: 05/30/18644 RETAIL BUSINESS MANAGER: CLEMENT 05/30/1845 RPT#: [id number] DC DATE:05/29/18 STATUS: DIS [facility] [address] [place] [address] END OF REPORT
--- NOTE | ~2018-05-21 | MORECARE ---
CASE MANAGEMENT DISCHARGE SUMMARY PATIENT: DOUGLAS HILLS UNIT: [id number] ADM DATE: 05/21/18 AGE: 52 : 63 SEX: F ROOM/BED: D.2238 AUTHOR: AMELIA MCGOVERN PHYSICIAN: REFERRING PHYSICIAN: FELIZ GUTHRIE MD DATE OF SERVICE: 05/26/18 Discharge Plan Patient Name: DOUGLAS HILLS Facility: [facility]:[place] : 1965 Planned Disposition: Home or Self Care Anticipated Discharge Date: 05/28/18 Discharge Date: Expected LOS: 7 Initial Reviewer: [id number] Initial Review Date: 05/26/2018 Generated: 05/26/18 11:41 am Comments DCP- Discharge Planning Updated by [email or web address]: Marii Toussaint on 05/26/18 9:[address] Patient Name: DOUGLAS HILLS Admission Status: ER Accout number: [id number] Admission Date: 05-21-2018 : 1965 Admission Diagnosis:CHRONIC OBSTRUCTIVE PULMONARY DISEASE W (ACUTE) EXACERB Attending: FELIZ GUTHRIE Current LOS: 5 Anticipated DC Date: 05-28-2018 Planned Disposition: Home or Self Care Primary Insurance: [facility] MEDICARE SOLUTIONS Discharge Planning Comments: CM MET WITH PATIENT REGARDING D/C NEEDS AND PLANS. PATIENT STATED SHE LIVES WITH HER DAUGHTER (ALMA) AND SHE WILL DRIVE HER HOME AT DISCHARGE. PATIENT STATED SHE HAS 6 STEPS TO ENTER HOME AND NO STAIRS INSIDE. PATIENTS DAUGHTER HELPS HER WITH HER BATH, DRESSING, AND MEDS. PATIENT HAS A WALKER, CANE, TRILOGY, OXYGEN, NEBULIZER, GLUCOMETER, SHOWER CHAIR AND SHOWER BENCH AT HOME. PATIENT REFUSED HOME HEALTH AT THIS TIME. CM WILL CONTINUE TO FOLLOW PATIENT WITH D/C NEEDS AND PLANS. PCP [facility] [address] (DAUGHTER) [phone] Information Technology Audit Manager: Marii Toussaint DCP- Discharge Planning Updated by [email or web address]: Ginny Saavedra on 05/22/18 11:[address] CM attempted to do discharge assessment. Patient is currently on BiPap and unable to talk. No family available @this time. CM will continue to follow and assist as needed with discharge planning / needs. DCPIA - Discharge Planning Initial Assessment Updated by [id number]: Marii Toussaint on 05/26/18 10:33 am * Is the patient Alert and Oriented? Yes * How many steps to enter\exit or inside your home? * PCP DR. PEDRAZA * Pharmacy [facility] ([facility]) * Preadmission Environment Home with Family * ADLs Partial Dependent * Partial ADLs (Assistance needed) Bathing Dressing Medication Management * Equipment Cane Glucometer Nebulizer Other Oxygen Shower Chair Walker * Other Equipment TRILOGY * List name and contact numbers for known caregivers / representatives who currently or will assist patient after discharge: ALMA (DAUGHTER) [phone] * Verbal permission to speak to the caregivers and representatives has been obtained from the patient. Yes * Community resources currently utilized None * Additional services required to return to the preadmission environment? Yes * Can the patient safely return to the preadmission environment? Yes * Has this patient been hospitalized within the prior 30 days at any hospital? No Last DP export: 05/26/18 9:34 a Patient Name: DOUGLAS HILLS Page [id number] at 1041 All edits/amendments must be made on the electronic document DICTATION DATE: 05/26/18 104 TELEPHONIC NURSE CASE MANAGER: CLEMENT 05/26/18 104 RPT#: [id number] DC DATE: STATUS: ADM IN [facility] [address] [place] [address] END OF REPORT
--- NOTE | ~2018-05-21 | MORECARE ---
CASE MANAGEMENT DISCHARGE SUMMARY PATIENT: DOUGLAS HILLS UNIT: [id number] ADM DATE: 05/21/18 AGE: 52 : 63 SEX: F ROOM/BED: D.2238 AUTHOR: AMELIA MCGOVERN PHYSICIAN: REFERRING PHYSICIAN: FELIZ GUTHRIE MD DATE OF SERVICE: 05/29/18 Discharge Plan Patient Name: DOUGLAS HILLS Facility: [facility]:[place] : 1965 Planned Disposition: Home or Self Care Anticipated Discharge Date: 05/28/18 Discharge Date: Expected LOS: 7 Initial Reviewer: [email or web address] Initial Review Date: 05/26/2018 Generated: 05/29/18 11:34 am Comments DCP- Discharge Planning Updated by [email or web address]: Thelmamaria fernanda Yusuf on 05/29/18 9:[address] Met with patient, she is planning on discharging home with her daughter. States her daughter will pick her up. She has had home health with [facility] in the past, refuses home health at this time. States "I will call the doctor if I change my mind. I just will do house calls for now." States she has everything she needs at home. States her insurance will pay for all her prescriptions. No further needs identified. DCP- Discharge Planning Updated by [email or web address]: Marii Toussaint on 05/26/18 9:[address] Patient Name: DOUGLAS HILLS Admission Status: ER Accout number: [id number] Admission Date: 05-21-2018 : 1965 Admission Diagnosis:CHRONIC OBSTRUCTIVE PULMONARY DISEASE W (ACUTE) EXACERB Attending: FELIZ GUTHRIE Current LOS: 5 Anticipated DC Date: 05-28-2018 Planned Disposition: Home or Self Care Primary Insurance: [facility] MEDICARE SOLUTIONS Discharge Planning Comments: CM MET WITH PATIENT REGARDING D/C NEEDS AND PLANS. PATIENT STATED SHE LIVES WITH HER DAUGHTER (ALMA) AND SHE WILL DRIVE HER HOME AT DISCHARGE. PATIENT STATED SHE HAS 6 STEPS TO ENTER HOME AND NO STAIRS INSIDE. PATIENTS DAUGHTER HELPS HER WITH HER BATH, DRESSING, AND MEDS. PATIENT HAS A WALKER, CANE, TRILOGY, OXYGEN, NEBULIZER, GLUCOMETER, SHOWER CHAIR AND SHOWER BENCH AT HOME. PATIENT REFUSED HOME HEALTH AT THIS TIME. CM WILL CONTINUE TO FOLLOW PATIENT WITH D/C NEEDS AND PLANS. [facility]CP [facility] ON [address] (DAUGHTER) [phone] Stained Glass Installer: Marii Toussaint DCP- Discharge Planning Updated by [id number]: Ginny Saavedra on 05/22/18 11:[address] CM attempted to do discharge assessment. Patient is currently on BiPap and unable to talk. No family available @this time. CM will continue to follow and assist as needed with discharge planning / needs. DCPIA - Discharge Planning Initial Assessment Updated by [email or web address]: Marii Toussaint on 05/26/18 10:33 am * Is the patient Alert and Oriented? Yes * How many steps to enter\\exit or inside your home? * PCP DR. PEDRAZA * Pharmacy [facility] ([place] [facility]) * Preadmission Environment Home with Family * ADLs Partial Dependent * Partial ADLs (Assistance needed) Bathing Dressing Medication Management * Equipment Cane Glucometer Nebulizer Other Oxygen Shower Chair Walker * Other Equipment TRILOGY * List name and contact numbers for known caregivers / representatives who currently or will assist patient after discharge: ALMA (DAUGHTER) [phone] * Verbal permission to speak to the caregivers and representatives has been obtained from the patient. Yes * Community resources currently utilized None * Additional services required to return to the preadmission environment? Yes * Can the patient safely return to the preadmission environment? Yes * Has this patient been hospitalized within the prior 30 days at any hospital? No Coverage Notice Reviewer: [email or web address] Bayron Yusuf Notice Issued Date-Time: 05/29/2018 10:33 Notice Type: IM Discharge Notice Notice Delivered To: Patient Relationship to Patient: Self Geography Faculty Member Name: Delivery Method: - Adrianne Days: Prior Verbal Notification: Recipient Understood Notice: Recipient Signature: Med Rec Note Co-signed by Attending: Coverage Notice Comment: Last DP export: 05/26/18 9:41 a Patient Name: DOUGLAS HILLS Page [id number] at 1034 All edits/amendments must be made on the electronic document DICTATION DATE: 05/29/18 1033 LEAD FABRICATOR: CLEMENT 05/29/18 1033 RPT#: [id number] DC DATE: STATUS: ADM IN [facility] [address] [facility] [place] [address] END OF REPORT
--- NOTE | ~2018-05-21 | MORECARE ---
CASE MANAGEMENT DISCHARGE SUMMARY PATIENT: DOUGLAS HILLS UNIT: [id number] ADM DATE: 05/21/18 AGE: 52 : 63 SEX: F ROOM/BED: D.2306 AUTHOR: AMELIA MCGOVERN PHYSICIAN: REFERRING PHYSICIAN: FELIZ GUTHRIE MD DATE OF SERVICE: 05/22/18 Discharge Plan Patient Name: DOUGLAS HILLS [facility] : 1965 Planned Disposition: Anticipated Discharge Date: Discharge Date: Expected LOS: Initial Reviewer: [email or web address] Initial Review Date: 05/22/2018 Generated: 05/22/18 12:07 pm Comments DCP- Discharge Planning Updated by [email or web address]: Ginny Saavedra on 05/22/18 10:[address] CM attempted to do discharge assessment. Patient is currently on BiPap and unable to talk. No family available @this time. CM will continue to follow and assist as needed with discharge planning / needs. Patient Name: DOUGLAS HILLS Page 00476 at 1107 All edits/amendments must be made on the electronic document DICTATION DATE: 05/22/181106 CONSTRUCTION INSPECTOR: CLEMENT 05/22/181106 RPT#: [id number] DC DATE: STATUS: ADM IN [facility] [address] [place] [address] END OF REPORT
--- NOTE | ~2018-05-21 | MORECARE ---
CASE MANAGEMENT DISCHARGE SUMMARY PATIENT: DOUGLAS HILLS UNIT: [id number] ADM DATE: 05/21/18 AGE: 52 : 63 SEX: F ROOM/BED: D.2238 AUTHOR: AMELIA MCGOVERN PHYSICIAN: REFERRING PHYSICIAN: FELIZ GUTHRIE MD DATE OF SERVICE: 05/26/18 Discharge Plan Patient Name: DOUGLAS HILLS Facility: [facility]:[place] : 1965 Planned Disposition: Home or Self Care Anticipated Discharge Date: 05/28/18 Discharge Date: Expected LOS: 7 Initial Reviewer: [email or web address] Initial Review Date: 05/26/2018 Generated: 05/26/18 11:34 am Comments DCP- Discharge Planning Updated by [email or web address]: Ginny Saavedra on 05/22/18 11:[address] CM attempted to do discharge assessment. Patient is currently on BiPap and unable to talk. No family available @this time. CM will continue to follow and assist as needed with discharge planning / needs. DCPIA - Discharge Planning Initial Assessment Updated by [email or web address]: Marii Toussaint on 05/26/18 10:33 am * Is the patient Alert and Oriented? Yes * How many steps to enter\exit or inside your home? * PCP DR. PEDRAZA * Pharmacy [facility] ([place]) * Preadmission Environment Home with Family * ADLs Partial Dependent * Partial ADLs (Assistance needed) Bathing Dressing Medication Management * Equipment Cane Glucometer Nebulizer Other Oxygen Shower Chair Walker * Other Equipment TRILOGY * List name and contact numbers for known caregivers / representatives who currently or will assist patient after discharge: ALMA (DAUGHTER) [phone] * Verbal permission to speak to the caregivers and representatives has been obtained from the patient. Yes * Community resources currently utilized None * Additional services required to return to the preadmission environment? Yes * Can the patient safely return to the preadmission environment? Yes * Has this patient been hospitalized within the prior 30 days at any hospital? No Last DP export: 05/22/18 11:07 Patient Name: DOUGLAS HILLS Page [id number] at 1034 All edits/amendments must be made on the electronic document DICTATION DATE: 05/26/18 1034 RN HEMODIALYSIS CHARGE: CLEMENT 05/26/18 1034 RPT#: [id number] DC DATE: STATUS: ADM IN [facility] [address] [place] [address] END OF REPORT
--- NOTE | ~2018-05-21 | MORECARE ---
CASE MANAGEMENT DISCHARGE SUMMARY PATIENT: DOUGLAS HILLS UNIT: [id number] ADM DATE: 05/21/18 AGE: 52 : 63 SEX: F ROOM/BED: D.2238 AUTHOR: AMELIA MCGOVERN PHYSICIAN: REFERRING PHYSICIAN: FELIZ GUTHRIE MD DATE OF SERVICE: 05/29/18 Discharge Plan Patient Name: DOUGLAS HILLS Facility: [facility]:[place] : 1965 Planned Disposition: Home or Self Care Anticipated Discharge Date: 05/28/18 Discharge Date: Expected LOS: 7 Initial Reviewer: [id number] Initial Review Date: 05/26/2018 Generated: 05/29/18 4:01 pm Comments DCP- Discharge Planning Updated by [id number]: Thelma Yusuf on 05/29/18 2:[address] Patient Name: DOUGLAS HILLS Encounter No: [id number] : 1965 Primary Insurance: [employer] MEDICARE SOLUTIONS Anticipated DC Date: 05-28-2018 Planned Disposition: Home or Self Care External Planned Provider: : DCP follow-up note: Patient in agreement with discharge plan. Declines HHS. No changes to plan. Case management will follow and assist as needed. Thelma Yusuf DCP- Discharge Planning Updated by [email or web address]: Thelma Yusuf on 05/29/18 9:[address] Met with patient, she is planning on discharging home with her daughter. States her daughter will pick her up. She has had home health with [facility] in the past, refuses home health at this time. States "I will call the doctor if I change my mind. I just will do house calls for now." States she has everything she needs at home. States her insurance will pay for all her prescriptions. No further needs identified. DCP- Discharge Planning Updated by [email or web address]: Marii Toussaint on 05/26/18 9:[address] Patient Name: DOUGLAS HILLS Admission Status: ER Accout number: [id number] Admission Date: 05-21-2018 : 1965 Admission Diagnosis:CHRONIC OBSTRUCTIVE PULMONARY DISEASE W (ACUTE) EXACERB Attending: FELIZ GUTHRIE Current LOS: 5 Anticipated DC Date: 05-28-2018 Planned Disposition: Home or Self Care Primary Insurance: [facility] MEDICARE SOLUTIONS Discharge Planning Comments: CM MET WITH PATIENT REGARDING D/C NEEDS AND PLANS. PATIENT STATED SHE LIVES WITH HER DAUGHTER (ALMA) AND SHE WILL DRIVE HER HOME AT DISCHARGE. PATIENT STATED SHE HAS 6 STEPS TO ENTER HOME AND NO STAIRS INSIDE. PATIENTS DAUGHTER HELPS HER WITH HER BATH, DRESSING, AND MEDS. PATIENT HAS A WALKER, CANE, TRILOGY, OXYGEN, NEBULIZER, GLUCOMETER, SHOWER CHAIR AND SHOWER BENCH AT HOME. PATIENT REFUSED HOME HEALTH AT THIS TIME. CM WILL CONTINUE TO FOLLOW PATIENT WITH D/C NEEDS AND PLANS. [facility]CP [facility] [address] (DAUGHTER) [phone] Manager Science: Marii Toussaint DCP- Discharge Planning Updated by [id number]: Ginny Saavedra on 05/22/18 11:[address] CM attempted to do discharge assessment. Patient is currently on BiPap and unable to talk. No family available @this time. CM will continue to follow and assist as needed with discharge planning / needs. DCPIA - Discharge Planning Initial Assessment Updated by [id number]: Marii Toussaint on 05/26/18 10:33 am * Is the patient Alert and Oriented? Yes * How many steps to enter\\exit or inside your home? * PCP DR. PEDRAZA * [facility] ([address]) * Preadmission Environment Home with Family * ADLs Partial Dependent * Partial ADLs (Assistance needed) Bathing Dressing Medication Management * Equipment Cane Glucometer Nebulizer Other Oxygen Shower Chair Walker * Other Equipment TRILOGY * List name and contact numbers for known caregivers / representatives who currently or will assist patient after discharge: ALMA (DAUGHTER) [phone] * Verbal permission to speak to the caregivers and representatives has been obtained from the patient. Yes * Community resources currently utilized None * Additional services required to return to the preadmission environment? Yes * Can the patient safely return to the preadmission environment? Yes * Has this patient been hospitalized within the prior 30 days at any hospital? No Coverage Notice Reviewer: [email or web address] Bayron Yusuf Notice Issued Date-Time: 05/29/2018 10:33 Notice Type: IM Discharge Notice Notice Delivered To: Patient Relationship to Patient: Self Cytotechnologist/Histotechnologist Name: Delivery Method: HAND - Hand Delivered Adrianne Days: Prior Verbal Notification: Recipient Understood Notice: Yes Recipient Signature: Yes Med Rec Note Co-signed by Attending: Coverage Notice Comment: IMM explained, signed, copy given, original placed in MR Last DP export: 05/29/18 9:34 a Patient Name: DOUGLAS HILLS Page [id number] at 1501 All edits/amendments must be made on the electronic document DICTATION DATE: 05/29/181499 PARTS DELIVERY DRIVER: CLEMENT 05/29/181499 RPT#: [id number] DC DATE: STATUS: ADM IN [facility] [address] [place] [address] END OF REPORT
[2018-05-21] MEDS ORDERED: CELEXA20 MG PO (19:35)
[2018-05-21] MEDS ORDERED: DESERYL50 M2 PO (19:36)
[2018-05-21] MEDS ORDERED: PRAVACHOL20 MG PO (19:36)
[2018-05-21 20:30] VITALS: BP 123/56
[2018-05-21 20:57] LABS: BASOPHILS 0.1 % (0-2); EOSINOPHILS 4.1 % (0-7); IMMATURE GRANULOCYTES 0.5 % (0-5); LYMPHOCYTES 19.1 % (15-50); MCH 25.8 pg (26.0-34.0); MCHC 28.9 g/dL (31.0-37.0); MCV 89.2 fL (80.0-100.0); MEAN PLATELET VOLUME 8.8 fL (7.4-10.4); NEUTROPHILS 67.2 % (40-80); RBC 4.26 10x6/uL (4.00-5.40); RDW 14.9 % (11.5-14.5); WBC 9.5 10x3/uL (4.8-10.8)
[2018-05-21 20:59] LABS: ALKALINE PHOSPHATASE 78 U/L (46-116); ALT (SGPT) 13 U/L (10-68); CALCIUM 9.1 mg/dL (8.5-10.1); CHLORIDE - SERUM 98 mmol/L (98-107); CKMB 0.2 U/L (0.0-3.6); CREATINE KINASE 19 UL (21-215); CREATININE - SERUM 0.8 mg/dL (0.6-1.3); PLATELET COUNT 198 10x3/uL (130-400); POTASSIUM - SERUM 4.5 mmol/L (3.5-5.1); PRO BNP 89 pg/mL (0-125); PROTEIN - SERUM 7.4 g/dL (6.4-8.2); SODIUM 141 mmol/L (136-145); UREA NITROGEN 10 mg/dL (7-18); eGFR NON AFRICAN AMERICAN 79 mL/min (90-120)
[2018-05-21 21:03] LABS: CALC OSMOLALITY 284 mosm/kg (275-300); GLUCOSE 184 mg/dL (74-106)
[2018-05-21 21:05] LABS: CARBON DIOXIDE 45.5 mmol/L (21.0-32.0); TROPONIN-I < 0.017 ng/mL (0.000-0.060)
[2018-05-21 21:30] VITALS: BP 118/50
[2018-05-21 21:53] LABS: APTT 22.5 SECONDS (22.8-39.4)
[2018-05-21 22:14] LABS: INR 0.93 (0.85-1.17); PROTIME 12.1 SECONDS (11.6-15.0)
[2018-05-21 23:00] VITALS: BP 128/54
[2018-05-22] VITALS (24 sets, daily range): BP systolic 110–134; BP diastolic 51–76; BMI 65.0; BMI 64.8
[2018-05-22 04:10] LABS: BASOPHILS 0.1 % (0-2); EOSINOPHILS 0.5 % (0-7); HEMATOCRIT 37.3 % (36.0-48.0); HEMOGLOBIN 10.8 g/dL (12-16); IMMATURE GRANULOCYTES 0.5 % (0-5); MCH 25.8 pg (26.0-34.0); MEAN PLATELET VOLUME 8.8 fL (7.4-10.4); MONOCYTES 1.3 % (2-11); NEUTROPHILS 90.6 % (40-80); PLATELET COUNT 202 10x3/uL (130-400); RBC 4.19 10x6/uL (4.00-5.40); RDW 14.9 % (11.5-14.5); WBC 12.5 10x3/uL (4.8-10.8)
[2018-05-22 04:23] LABS: ALBUMIN 2.8 g/dL (3.4-5.0); ALKALINE PHOSPHATASE 80 U/L (46-116); BILIRUBIN - TOTAL 0.27 mg/dL (0.2-1.3); CALC OSMOLALITY 288 mosm/kg (275-300); CALCIUM 8.6 mg/dL (8.5-10.1); CHLORIDE - SERUM 98 mmol/L (98-107); CREATININE - SERUM 0.7 mg/dL (0.6-1.3); GLUCOSE 224 mg/dL (74-106); POTASSIUM - SERUM 4.7 mmol/L (3.5-5.1); PROTEIN - SERUM 7.2 g/dL (6.4-8.2); SODIUM 142 mmol/L (136-145); UREA NITROGEN 10 mg/dL (7-18); eGFR NON AFRICAN AMERICAN > 90 mL/min (90-120)
[2018-05-22 04:24] LABS: ALT (SGPT) 19 U/L (10-68); CARBON DIOXIDE 45.4 mmol/L (21.0-32.0)
[2018-05-23] VITALS (14 sets, daily range): BP systolic 111–172; BP diastolic 50–97; Ht 152.4 cm; Wt 147.7 kg
[2018-05-23 05:09] LABS: BASOPHILS 0 % (0-2); EOSINOPHILS 0 % (0-7); HEMATOCRIT 34.1 % (36.0-48.0); HEMOGLOBIN 10.2 g/dL (12-16); IMMATURE GRANULOCYTES 0.6 % (0-5); LYMPHOCYTES 6.5 % (15-50); MCH 25.8 pg (26.0-34.0); MCHC 29.9 g/dL (31.0-37.0); MEAN PLATELET VOLUME 9.1 fL (7.4-10.4); MONOCYTES 3.4 % (2-11); NEUTROPHILS 89.5 % (40-80); RBC 3.96 10x6/uL (4.00-5.40); RDW 14.6 % (11.5-14.5); WBC 12.4 10x3/uL (4.8-10.8)
[2018-05-23 05:13] LABS: MCV 86.1 fL (80.0-100.0); PLATELET COUNT 253 10x3/uL (130-400)
[2018-05-23 06:02] LABS: ALBUMIN 2.9 g/dL (3.4-5.0); ALKALINE PHOSPHATASE 75 U/L (46-116); BILIRUBIN - TOTAL 0.24 mg/dL (0.2-1.3); CALCIUM 8.7 mg/dL (8.5-10.1); CARBON DIOXIDE 39.3 mmol/L (21.0-32.0); CHLORIDE - SERUM 98 mmol/L (98-107); CREATININE - SERUM 0.8 mg/dL (0.6-1.3); GLUCOSE 258 mg/dL (74-106); MAGNESIUM - SERUM 1.8 mg/dL (1.8-2.4); PHOSPHOROUS 3.5 mg/dL (2.5-4.9); POTASSIUM - SERUM 4.1 mmol/L (3.5-5.1); PRO BNP 127 pg/mL (0-125); PROTEIN - SERUM 6.6 g/dL (6.4-8.2); SODIUM 140 mmol/L (136-145); THYROID STIMULATING HORMONE 0.81 uIU/mL (0.36-3.74); eGFR NON AFRICAN AMERICAN 79 mL/min (90-120)
[2018-05-23 06:05] LABS: ALT (SGPT) 13 U/L (10-68); CALC OSMOLALITY 289 mosm/kg (275-300); UREA NITROGEN 18 mg/dL (7-18)
[2018-05-24 05:12] VITALS: BP 128/63
[2018-05-24 06:29] LABS: BASOPHILS 0.1 % (0-2); EOSINOPHILS 0 % (0-7); HEMATOCRIT 34.8 % (36.0-48.0); HEMOGLOBIN 10.3 g/dL (12-16); IMMATURE GRANULOCYTES 0.4 % (0-5); LYMPHOCYTES 5.6 % (15-50); MCH 25.6 pg (26.0-34.0); MCHC 29.6 g/dL (31.0-37.0); MCV 86.6 fL (80.0-100.0); MEAN PLATELET VOLUME 9.4 fL (7.4-10.4); MONOCYTES 3.5 % (2-11); NEUTROPHILS 90.4 % (40-80); PLATELET COUNT 265 10x3/uL (130-400); RBC 4.02 10x6/uL (4.00-5.40); WBC 13.1 10x3/uL (4.8-10.8)
[2018-05-24 06:51] LABS: ALBUMIN 2.9 g/dL (3.4-5.0); ANION GAP 6.1 mmol/L (8-16); BILIRUBIN - TOTAL 0.19 mg/dL (0.2-1.3); CALCIUM 8.9 mg/dL (8.5-10.1); CARBON DIOXIDE 38.9 mmol/L (21.0-32.0); PROTEIN - SERUM 7.1 g/dL (6.4-8.2)
[2018-05-24 06:52] LABS: CREATININE - SERUM 1.1 mg/dL (0.6-1.3)
[2018-05-24 08:29] VITALS: BP 135/73
[2018-05-24 12:21] VITALS: BP 130/68
[2018-05-24 15:33] VITALS: BP 142/67
[2018-05-24 21:26] VITALS: BP 124/58
[2018-05-25 04:51] VITALS: BP 123/69
[2018-05-25 09:35] VITALS: BP 123/54
[2018-05-25 13:13] LABS: BASOPHILS 0 % (0-2); EOSINOPHILS 0 % (0-7); HEMATOCRIT 34.7 % (36.0-48.0); HEMOGLOBIN 10.3 g/dL (12-16); IMMATURE GRANULOCYTES 0.5 % (0-5); LYMPHOCYTES 4.5 % (15-50); MCH 25.7 pg (26.0-34.0); MCHC 29.7 g/dL (31.0-37.0); MCV 86.5 fL (80.0-100.0); MEAN PLATELET VOLUME 9.5 fL (7.4-10.4); MONOCYTES 7.1 % (2-11); NEUTROPHILS 87.9 % (40-80); PLATELET COUNT 237 10x3/uL (130-400); RBC 4.01 10x6/uL (4.00-5.40); WBC 12.9 10x3/uL (4.8-10.8)
[2018-05-25 13:52] LABS: ALBUMIN 2.9 g/dL (3.4-5.0); ANION GAP 11.1 mmol/L (8-16); BILIRUBIN - TOTAL 0.14 mg/dL (0.2-1.3); CALCIUM 8.7 mg/dL (8.5-10.1); CARBON DIOXIDE 33.7 mmol/L (21.0-32.0); POTASSIUM - SERUM 3.8 mmol/L (3.5-5.1); PROTEIN - SERUM 6.9 g/dL (6.4-8.2)
[2018-05-25 16:30] VITALS: BP 144/67
[2018-05-25 20:39] VITALS: BP 131/54
[2018-05-26 00:20] VITALS: BP 137/59
[2018-05-26 05:02] VITALS: BP 141/62
[2018-05-26 06:15] LABS: BASOPHILS 0 % (0-2); EOSINOPHILS 0 % (0-7); HEMATOCRIT 36.9 % (36.0-48.0); IMMATURE GRANULOCYTES 0.5 % (0-5); MCH 25.7 pg (26.0-34.0); MCHC 29.8 g/dL (31.0-37.0); MCV 86.2 fL (80.0-100.0); MONOCYTES 5.7 % (2-11); NEUTROPHILS 87.8 % (40-80); PLATELET COUNT 256 10x3/uL (130-400); RBC 4.28 10x6/uL (4.00-5.40); RDW 14.7 % (11.5-14.5); WBC 13.1 10x3/uL (4.8-10.8)
[2018-05-26 06:30] LABS: ALBUMIN 3.1 g/dL (3.4-5.0); ALKALINE PHOSPHATASE 66 U/L (46-116); ALT (SGPT) 18 U/L (10-68); BILIRUBIN - TOTAL 0.22 mg/dL (0.2-1.3); CARBON DIOXIDE 38.5 mmol/L (21.0-32.0); CHLORIDE - SERUM 98 mmol/L (98-107); CREATININE - SERUM 0.8 mg/dL (0.6-1.3); POTASSIUM - SERUM 4.3 mmol/L (3.5-5.1); PROTEIN - SERUM 7.1 g/dL (6.4-8.2); SODIUM 140 mmol/L (136-145); UREA NITROGEN 34 mg/dL (7-18); eGFR NON AFRICAN AMERICAN 79 mL/min (90-120)
[2018-05-26 06:34] LABS: CALC OSMOLALITY 296 mosm/kg (275-300); GLUCOSE 274 mg/dL (74-106)
[2018-05-26 09:04] VITALS: BP 101/70
[2018-05-26 11:52] VITALS: BP 138/65
[2018-05-26 15:32] VITALS: BP 121/61
[2018-05-26 20:50] VITALS: BP 126/57
[2018-05-27 01:26] VITALS: BP 134/60
[2018-05-27 04:55] LABS: BASOPHILS 0 % (0-2); EOSINOPHILS 0.1 % (0-7); HEMATOCRIT 35.9 % (36.0-48.0); HEMOGLOBIN 10.8 g/dL (12-16); IMMATURE GRANULOCYTES 0.8 % (0-5); LYMPHOCYTES 9.3 % (15-50); MCHC 30.1 g/dL (31.0-37.0); MCV 86.3 fL (80.0-100.0); MEAN PLATELET VOLUME 9.2 fL (7.4-10.4); MONOCYTES 9.5 % (2-11); NEUTROPHILS 80.3 % (40-80); PLATELET COUNT 221 10x3/uL (130-400); RBC 4.16 10x6/uL (4.00-5.40); RDW 14.6 % (11.5-14.5)
[2018-05-27 04:56] LABS: WBC 16.5 10x3/uL (4.8-10.8)
[2018-05-27 05:19] LABS: ALKALINE PHOSPHATASE 85 U/L (46-116); BILIRUBIN - TOTAL 0.12 mg/dL (0.2-1.3); CALC OSMOLALITY 298 mosm/kg (275-300); CALCIUM 8.8 mg/dL (8.5-10.1); CARBON DIOXIDE 39.7 mmol/L (21.0-32.0); CHLORIDE - SERUM 99 mmol/L (98-107); CREATININE - SERUM 0.8 mg/dL (0.6-1.3); GLUCOSE 283 mg/dL (74-106); POTASSIUM - SERUM 3.8 mmol/L (3.5-5.1); PROTEIN - SERUM 6.5 g/dL (6.4-8.2); SODIUM 141 mmol/L (136-145); UREA NITROGEN 35 mg/dL (7-18); eGFR NON AFRICAN AMERICAN 79 mL/min (90-120)
[2018-05-27 05:24] LABS: ALT (SGPT) 23 U/L (10-68)
[2018-05-27 05:28] VITALS: BP 121/62
[2018-05-27 08:37] VITALS: BP 155/77
[2018-05-27 13:07] VITALS: BP 125/60
[2018-05-27 16:55] VITALS: BP 109/53
[2018-05-27 20:00] VITALS: BP 105/60
[2018-05-28 05:00] VITALS: BP 103/54
[2018-05-28 06:13] LABS: BASOPHILS 0 % (0-2); EOSINOPHILS 0.1 % (0-7); HEMOGLOBIN 10.4 g/dL (12-16); IMMATURE GRANULOCYTES 1.1 % (0-5); LYMPHOCYTES 7.9 % (15-50); MCH 25.7 pg (26.0-34.0); MCHC 29.7 g/dL (31.0-37.0); MCV 86.4 fL (80.0-100.0); MEAN PLATELET VOLUME 9.8 fL (7.4-10.4); MONOCYTES 5.4 % (2-11); NEUTROPHILS 85.5 % (40-80); PLATELET COUNT 223 10x3/uL (130-400); RBC 4.05 10x6/uL (4.00-5.40); RDW 14.7 % (11.5-14.5)
[2018-05-28 06:49] LABS: ALBUMIN 2.8 g/dL (3.4-5.0); ANION GAP 6.7 mmol/L (8-16); BILIRUBIN - TOTAL 0.19 mg/dL (0.2-1.3); CALCIUM 8.4 mg/dL (8.5-10.1); CARBON DIOXIDE 36.7 mmol/L (21.0-32.0); CREATININE - SERUM 0.9 mg/dL (0.6-1.3); MAGNESIUM - SERUM 2.1 mg/dL (1.8-2.4); PHOSPHOROUS 4.3 mg/dL (2.5-4.9); POTASSIUM - SERUM 4.4 mmol/L (3.5-5.1); PROTEIN - SERUM 6.1 g/dL (6.4-8.2)
[2018-05-28 08:51] VITALS: BP 143/70
[2018-05-28 14:50] VITALS: BP 88/43
[2018-05-28 16:48] VITALS: BP 109/65
[2018-05-28 19:10] VITALS: BP 119/55
[2018-05-29 04:40] VITALS: BP 111/56
[2018-05-29 06:40] LABS: BASOPHILS 0 % (0-2); EOSINOPHILS 2.9 % (0-7); HEMATOCRIT 35.8 % (36.0-48.0); HEMOGLOBIN 10.6 g/dL (12-16); IMMATURE GRANULOCYTES 0.9 % (0-5); LYMPHOCYTES 20.4 % (15-50); MCH 25.7 pg (26.0-34.0); MCHC 29.6 g/dL (31.0-37.0); MCV 86.9 fL (80.0-100.0); MEAN PLATELET VOLUME 9.3 fL (7.4-10.4); MONOCYTES 9.7 % (2-11); NEUTROPHILS 66.1 % (40-80); PLATELET COUNT 242 10x3/uL (130-400); RBC 4.12 10x6/uL (4.00-5.40)
[2018-05-29 06:46] LABS: ALBUMIN 2.8 g/dL (3.4-5.0); ANION GAP 4.3 mmol/L (8-16); BILIRUBIN - TOTAL 0.24 mg/dL (0.2-1.3); CALCIUM 8.5 mg/dL (8.5-10.1); CREATININE - SERUM 0.9 mg/dL (0.6-1.3); POTASSIUM - SERUM 3.9 mmol/L (3.5-5.1); PROTEIN - SERUM 6.2 g/dL (6.4-8.2)
[2018-05-29 06:55] LABS: CARBON DIOXIDE 40.6 mmol/L (21.0-32.0)
[2018-05-29 09:57] VITALS: BP 107/64
[2018-05-29 12:48] VITALS: BP 115/65
[2018-05-29] MEDS ORDERED: OMNICEF300 MG PO (13:59)
== END 2018-05-29 15:49 | disposition home or self-care (01) | DRG 193 ==
LOC: D.ER 19:26 → D.MS 23:38 → D.ICU 23:38 → D.MS 05-23 15:42
PROVIDERS: Family Medicine
PROC: 05HM33Z Insertion of Infusion Device into Right Internal Jugular Vein, Percutaneous Approach (ICD-10-PCS; principal; 2018-05-21)
PROC: 5A09457 Assistance with Respiratory Ventilation, 24-96 Consecutive Hours, Continuous Positive Airway Pressure (ICD-10-PCS; 2018-05-21)
DX: J18.9 Pneumonia, unspecified organism (principal); J96.01 Acute respiratory failure with hypoxia; J96.02 Acute respiratory failure with hypercapnia; J44.1 Chronic obstructive pulmonary disease with (acute) exacerbation; J44.0 Chronic obstructive pulmonary disease with (acute) lower respiratory infection; I50.32 Chronic diastolic (congestive) heart failure; E66.2 Morbid (severe) obesity with alveolar hypoventilation; Z68.44 Body mass index [BMI] 60.0-69.9, adult; E87.2 Acidosis; N17.9 Acute kidney failure, unspecified; G72.81 Critical illness myopathy; E11.65 Type 2 diabetes mellitus with hyperglycemia; K21.9 Gastro-esophageal reflux disease without esophagitis; E83.42 Hypomagnesemia; K75.81 Nonalcoholic steatohepatitis (NASH)

== ENCOUNTER 2018-06-11 12:13 | Inpatient (IN) | payer MEDICARE, MEDICAID ==
[2018-06-11] VITALS (17 sets, daily range): BP systolic 82–142; BP diastolic 46–82; BMI 72.8
[~2018-06-11] VITALS: Ht 152.4 cm; Wt 153.8 kg
--- NOTE | ~2018-06-11 | MORECARE ---
CASE MANAGEMENT DISCHARGE SUMMARY PATIENT: DOUGLAS HILLS UNIT: [id number] ADM DATE: 06/11/18 AGE: 52 : 63 SEX: F ROOM/BED: D.2233 AUTHOR: FROILAN,DOC PHYSICIAN: REFERRING PHYSICIAN: CHARLIE HARO MD DATE OF SERVICE: 07/12/18 Discharge Plan Patient Name: DOUGLAS HILLS Facility: [facility]:[place] : 1965 Planned Disposition: Anticipated Discharge Date: 06/24/18 Discharge Date: Expected LOS: 13 Initial Reviewer: [id number] Initial Review Date: 06/22/2018 Generated: 07/12/18 3:01 pm Comments DCP- Discharge Planning Updated by [id number]: Thelma Madelin on 07/12/18 12:[address] [facility] has denied ltc placement due to cost. She does not want to go anywhere else at this time. Kyleigh Osorio came in the room when I was talking with her and states she can go home tomorrow. Patient is wanting to go home. MATT for home health given and she chooses [facility]. I called [facility] and faxed clinical and order. CM will continue to follow and assist with discharge planning/needs. DCP- Discharge Planning Updated by [email or web address]: Thelma Madelin on 07/12/18 11:[address] Met with patient and informed her that she did not have any skilled therapy days left for skilled therapy per Mary Estrada. She agrees to going to jail care at [facility]. I messaged Mary Estrada to get this process started. Dr. Marsh states she may not go home awaiting director of consumer affairs [facility] placement. CM will continue to follow and assist with discharge planning/needs. DCP- Discharge Planning Updated by [id number]: Thelma Madelin on 07/11/18 1:[address] Met with patient in the room to discuss discharge planning. She would like to return to [facility] on discharge. I called [facility] Etsrada and clinical sent. CM will continue to follow and assist with discharge planning/needs. DCP- Discharge Planning Updated by [id number]: Marycruz Webb on 07/08/18 2:[address] PATIENT SPIKED TEMP 102 WITHIN LAST 24 HRS AND 100.2 TODAY. HER PULSE IS 98- 115 BPM. DEVELOPED RESPIRATORY DISTRESS THIS AFTERNOON. SEEN BY DR MARSH AND DR BRITTON. SHE IS BEING TRANSFERED TO ICU AT THIS TIME. DCP- Discharge Planning Updated by [id number]: Annelally De La Rosa on 07/02/18 1:[address] CM received call back from Sara with [facility] regarding patient's Nebulizer. Sara informed CM that she had the replacement Nebulizer ready for delivery. CM just needs to call [facility] at [phone] when DC order is entered and [facility] will deliver new Nebulizer to hospital. DCP- Discharge Planning Updated by [email or web address]: Annel De La Rosa on 07/02/18 12:[address] CM met with patient regarding discharge planning / needs. Patient states her plan is to discharge to home. States she has trilogy with her home O2. States her Nebulizer is broken and she will need it replaced. States she uses [facility]. CM called [facility] and left message for them to return CM's call about broken Nebulizer. States her daughter, ALMA ALVAREZ, , will drive her home upon hospital DC. CM attempted to reach Alma but received message that stated her voice mail was full. Will continue to attempt to reach Alma. CM will continue to follow and assist as needed with discharge planning / needs. DCP- Discharge Planning Updated by [id number]: Marycruz Webb on 07/01/18 7:[address] PHYSICAL THERAPY SIGNED OFF 06/27 PATIENT AMBULATED 100 FT W/ 20% ASSIST WITH WHEELED WALKER. HAD OT EVAL 06/24. PATIENT NOT MEETING CRITERIA FOR ACUTE REHAB. PATIENT FEELS SHE WOULD LIKE TO PLAN FOR HOME WITH HOME CARE PARTICULARLY [facility].. SHE IS VERY CONCERNEDODAY SHE IS "COUGHING BLOOD" TODAY. CAT OF CHEST PLANNED FOR TODAY. AWAIT RESULTS AND MD PLAN. CM FOLLOWING TO ASSIST. DCP- Discharge Planning Updated by [id number]: Rahel Uriostegui on 06/24/18 1:[address] Patient Name: DOUGLAS HILLS Admission Status: ER Accout number: [id number] Admission Date: 06-11-2018 : 1965 Admission Diagnosis:ACUTE AND CHRONIC RESPIRATORY FAILURE WITH HYPOXIA Attending: CHARLIE HARO Current LOS: 13 Anticipated DC Date: 06-24-2018 Planned Disposition: Primary Insurance: [facility] MEDICARE SOLUTIONS Discharge Planning Comments: CM MET WITH PATIENT ABOUT DC PLANNING/NEEDS. STATES PLANS TO GO TO INPATIENT REHAB HERE AND THEN TO HOME. STATES USES A WALKER AT HOME. DENIES ANY NEEDS AT THIS TIME. CM WILL FOLLOW AND ASSIST NEEDED WITH DC PLANNING/NEEDS. IMM SIGNED. Plating Foreman: Rahel Uriostegui DCP- Discharge Planning Updated by [id number]: Ginny Saavedra on 06/14/18 3:[address] CM ATTEMPTED TO VISIT WITH PATIENT CURRENTLY ON VENT. NO FAMILY AVAILABLE DCPIA - Discharge Planning Initial Assessment Updated by [id number]: Rahel Uriostegui on 06/24/18 1:10 pm * Is the patient Alert and Oriented? Yes * PCP MILO * [facility] * Preadmission Environment Home with Family * ADLs Independent * Equipment Cane Nebulizer Oxygen Walker * List name and contact numbers for known caregivers / representatives who currently or will assist patient after discharge: ALMA ALVAREZ, DAUGHTER, * Community resources currently utilized None * Additional services required to return to the preadmission environment? Yes * Can the patient safely return to the preadmission environment? Yes * Has this patient been hospitalized within the prior 30 days at any hospital? Yes Coverage Notice Reviewer: [id number] - Rahel Uriostegui Notice Issued Date-Time: 06/24/2018 11:40 Notice Type: IM Discharge Notice Notice Delivered To: Patient Relationship to Patient: Self Entry Level Finance Name: Delivery Method: HAND - Hand Delivered Adrianne Days: Prior Verbal Notification: Recipient Understood Notice: Yes Recipient Signature: Yes Med Rec Note Co-signed by Attending: Coverage Notice Comment: Last DP export: 07/12/18 12:50 Patient Name: DOUGLAS HILLS Page [id number] at 1401 All edits/amendments must be made on the electronic document DICTATION DATE: 07/12/18 1400 NEEDLE PUNCH MACHINE OPERATOR HELPER: CLEMENT 07/12/18 1400 RPT#: [id number] DC DATE: STATUS: ADM IN [facility] [address] [place] [address] END OF REPORT
--- NOTE | ~2018-06-11 | MORECARE ---
CASE MANAGEMENT DISCHARGE SUMMARY PATIENT: DOUGLAS HILLS UNIT: [id number] ADM DATE: 06/11/18 AGE: 52 : 63 SEX: F ROOM/BED: D.2233 AUTHOR: FROILANDOC PHYSICIAN: REFERRING PHYSICIAN: CHARLIE HARO MD DATE OF SERVICE: 07/18/18 Discharge Plan Patient Name: DOUGLAS HILLS Facility: [facility]:[place] : 1965 Planned Disposition: Anticipated Discharge Date: 06/24/18 Discharge Date: Expected LOS: 13 Initial Reviewer: [email or web address] Initial Review Date: 06/22/2018 Generated: 07/18/18 1:16 pm Comments DCP- Discharge Planning Updated by [email or web address]: Thelma Yusuf on 07/18/18 11:[address] Discharging home today with home health. I spoke with Radha at [facility], they will begin seeing her in the morning. Holger has instructed her on IV administration. Patient states she understands how to do her own IV administration. States her and her daughter have done it in the past. States she has all the equipment she needs. No other needs identified. CM will continue to follow and assist with discharge planning/needs. DCP- Discharge Planning Updated by [id number]: Thelma Yusuf on 07/18/18 8:[address] Holger with [facility] has delivered IV antibiotic to room and did the first teaching with patient. [facility] will begin services this evening. CM will continue to follow and assist with discharge planning/needs. DCP- Discharge Planning Updated by [email or web address]: Thelma Yusuf on 07/17/18 1:[address] Spoke with patient regarding IV infusion companies. I have not received a quote back from [facility] and [facility] has quoted 100% paid for this year and 183 dollars total for next year antibiotics and supplies. Patient states she has used [facility] in the past and would like to continue to use [facility]. I spoke with [facility] and they are not able to staff for IV antibiotics. Patient states she would like me to use any home health that will accept her and to go by the [facility] with [facility] first. I called [facility] and [facility] states they cannot staff until Sunday. I called [facility] and spoke with Radha and they can see her tomorrow. Clinical faxed to [facility]. CM will continue to follow and assist with discharge planning/needs. DCP- Discharge Planning Updated by [id number]: Thelma Marinsantiago on 07/17/18 10:[address] Called and faxed clinical/order for antibiotic tanner quote to [facility] and [facility]. CM will continue to follow and assist with discharge planning/needs. DCP- Discharge Planning Updated by [email or web address]: Thelma Marinsantiago on 07/12/18 1:[address] I called Shaye with [facility] regarding nebulizer, she states she will have a freight delivery driver bring her nebulizer to her today. DCP- Discharge Planning Updated by [email or web address]: Thelma Marinsantiago on 07/12/18 12:[address] [facility] has denied ltc placement due to cost. She does not want to go anywhere else at this time. Kyleigh Osorio came in the room when I was talking with her and states she can go home tomorrow. Patient is wanting to go home. MATT for home health given and she chooses [facility]. I called [facility] and faxed clinical and order. CM will continue to follow and assist with discharge planning/needs. DCP- Discharge Planning Updated by [email or web address]: Thelma Yusuf on 07/12/18 11:[address] Met with patient and informed her that she did not have any skilled therapy days left for skilled therapy per Mary Estrada. She agrees to going to exterminator termite care at [facility]. I messaged Mary Estrada to get this process started. Dr. Marsh states she may not go home awaiting exterminator termite [facility] placement. CM will continue to follow and assist with discharge planning/needs. DCP- Discharge Planning Updated by [email or web address]: Thelma Marinsantiago on 07/11/18 1:[address] Met with patient in the room to discuss discharge planning. She would like to return to [facility] on discharge. I called Mary Estrada and clinical sent. CM will continue to follow and assist with discharge planning/needs. DCP- Discharge Planning Updated by [email or web address]: Marycruz Webb on 07/08/18 2:[address] PATIENT SPIKED TEMP 102 WITHIN LAST 24 HRS AND 100.2 TODAY. HER PULSE IS 98- 115 BPM. DEVELOPED RESPIRATORY DISTRESS THIS AFTERNOON. SEEN BY DR MARSH AND DR BRITTON. SHE IS BEING TRANSFERED TO ICU AT THIS TIME. DCP- Discharge Planning Updated by [id number]: Annel Rj on 07/02/18 1:[address] CM received call back from Sara with [facility] regarding patient's Nebulizer. Sara informed CM that she had the replacement Nebulizer ready for delivery. CM just needs to call [facility] at [phone] when DC order is entered and [facility] will deliver new Nebulizer to hospital. DCP- Discharge Planning Updated by [id number]: Annel De La Rosa on 07/02/18 12:[address] CM met with patient regarding discharge planning / needs. Patient states her plan is to discharge to home. States she has trilogy with her home O2. States her Nebulizer is broken and she will need it replaced. States she uses [facility]. CM called [facility] and left message for them to return CM's call about broken Nebulizer. States her daughter, ALMA ALVAREZ, , will drive her home upon hospital DC. CM attempted to reach Alma but received message that stated her voice mail was full. Will continue to attempt to reach Alma. CM will continue to follow and assist as needed with discharge planning / needs. DCP- Discharge Planning Updated by [email or web address]: Marycruz Webb on 07/01/18 7:[address] PHYSICAL THERAPY SIGNED OFF 06/27 PATIENT AMBULATED 100 FT W/ 20% ASSIST WITH WHEELED WALKER. HAD OT EVAL 06/24. PATIENT NOT MEETING CRITERIA FOR ACUTE REHAB. PATIENT FEELS SHE WOULD LIKE TO PLAN FOR HOME WITH HOME CARE PARTICULARLY [facility].. SHE IS VERY CONCERNEDODAY SHE IS "COUGHING BLOOD" TODAY. CAT OF CHEST PLANNED FOR TODAY. AWAIT RESULTS AND MD PLAN. CM FOLLOWING TO ASSIST. DCP- Discharge Planning Updated by [email or web address]: Rahel Uriostegui on 06/24/18 1:[address] Patient Name: DOUGLAS HILLS Admission Status: ER Accout number: [id number] Admission Date: 06-11-2018 : 1965 Admission Diagnosis:ACUTE AND CHRONIC RESPIRATORY FAILURE WITH HYPOXIA Attending: CHARLIE HARO Current LOS: 13 Anticipated DC Date: 06-24-2018 Planned Disposition: Primary Insurance: [facility] MEDICARE SOLUTIONS Discharge Planning Comments: CM MET WITH PATIENT ABOUT DC PLANNING/NEEDS. STATES PLANS TO GO TO INPATIENT REHAB HERE AND THEN TO HOME. STATES USES A WALKER AT HOME. DENIES ANY NEEDS AT THIS TIME. CM WILL FOLLOW AND ASSIST NEEDED WITH DC PLANNING/NEEDS. IMM SIGNED. Horticultural Specialty Grower: Rahel Uriostegui DCP- Discharge Planning Updated by [id number]: Ginny Saavedra on 06/14/18 3:[address] CM ATTEMPTED TO VISIT WITH PATIENT CURRENTLY ON VENT. NO FAMILY AVAILABLE DCPIA - Discharge Planning Initial Assessment Updated by [id number]: Rahel Uriostegui on 06/24/18 1:10 pm * Is the patient Alert and Oriented? Yes * PCP MILO * [facility]acy [facility] * Preadmission Environment Home with Family * ADLs Independent * Equipment Cane Nebulizer Oxygen Walker * List name and contact numbers for known caregivers / representatives who currently or will assist patient after discharge: ALMA ALVAREZ, DAUGHTER, * Community resources currently utilized None * Additional services required to return to the preadmission environment? Yes * Can the patient safely return to the preadmission environment? Yes * Has this patient been hospitalized within the prior 30 days at any hospital? Yes Coverage Notice Reviewer: [id number] - Rahel Uriostegui Notice Issued Date-Time: 06/24/2018 11:40 Notice Type: IM Discharge Notice Notice Delivered To: Patient Relationship to Patient: Self Customer Support Associate Name: Delivery Method: HAND - Hand Delivered Adrianne Days: Prior Verbal Notification: Recipient Understood Notice: Yes Recipient Signature: Yes Med Rec Note Co-signed by Attending: Coverage Notice Comment: Reviewer: [id number] - Thelma Yusuf Notice Issued Date-Time: 07/18/2018 12:02 Notice Type: IM Discharge Notice Notice Delivered To: Patient Relationship to Patient: Self Customer Support Associate Name: Delivery Method: HAND - Hand Delivered Adrianne Days: Prior Verbal Notification: Recipient Understood Notice: Yes Recipient Signature: Yes Med Rec Note Co-signed by Attending: Coverage Notice Comment: IMM explained, signed, copy given, original placed in MR Last DP export: 07/18/18 8:53 Patient Name: DOUGLAS HILLS Page [id number] at 1216 All edits/amendments must be made on the electronic document DICTATION DATE: 07/18/181214 SPORTS BOOK SERVER: CLEMENT 07/18/181214 RPT#: [id number] DC DATE: STATUS: ADM IN [facility] [address] [place] [address] END OF REPORT
--- NOTE | ~2018-06-11 | MORECARE ---
CASE MANAGEMENT DISCHARGE SUMMARY PATIENT: DOUGLAS HILLS UNIT: [id number] ADM DATE: 06/11/18 AGE: 52 : 63 SEX: F ROOM/BED: D.1212 AUTHOR: FROILAN,DOC PHYSICIAN: REFERRING PHYSICIAN: CHARLIE HARO MD DATE OF SERVICE: 07/02/18 Discharge Plan Patient Name: DOUGLAS HILLS Facility: [facility]:[place] : 1965 Planned Disposition: Anticipated Discharge Date: 06/24/18 Discharge Date: Expected LOS: 13 Initial Reviewer: [id number] Initial Review Date: 06/22/2018 Generated: 07/02/18 3:56 pm Comments DCP- Discharge Planning Updated by [id number]: Annel De La Rosa on 07/02/18 1:[address] CM received call back from Sara with [facility] regarding patient's Nebulizer. Sara informed CM that she had the replacement Nebulizer ready for delivery. DEJON just needs to call [facility] at [phone] when DC order is entered and [facility] will deliver new Nebulizer to hospital. DCP- Discharge Planning Updated by [email or web address]: Annel De La Rosa on 07/02/18 12:[address] CM met with patient regarding discharge planning / needs. Patient states her plan is to discharge to home. States she has trilogy with her home O2. States her Nebulizer is broken and she will need it replaced. States she uses [facility]. CM called [facility] and left message for them to return 's call about broken Nebulizer. States her daughter, ALMA ALVAREZ, , will drive her home upon hospital DC. CM attempted to reach Alma but received message that stated her voice mail was full. Will continue to attempt to reach Alma. CM will continue to follow and assist as needed with discharge planning / needs. DCP- Discharge Planning Updated by [id number]: Marycruz Webb on 07/01/18 7:[address] PHYSICAL THERAPY SIGNED OFF 06/27 PATIENT AMBULATED 100 FT W/ 20% ASSIST WITH WHEELED WALKER. HAD OT EVAL 06/24. PATIENT NOT MEETING CRITERIA FOR ACUTE REHAB. PATIENT FEELS SHE WOULD LIKE TO PLAN FOR HOME WITH HOME CARE PARTICULARLY [employer].. SHE IS VERY CONCERNEDODAY SHE IS "COUGHING BLOOD" TODAY. CAT OF CHEST PLANNED FOR TODAY. AWAIT RESULTS AND MD PLAN. CM FOLLOWING TO ASSIST. DCP- Discharge Planning Updated by [id number]: Rahelally Uriostegui on 06/24/18 1:[address] Patient Name: DOUGLAS HILLS Admission Status: ER Accout number: [id number] Admission Date: 06-11-2018 : 1965 Admission Diagnosis:ACUTE AND CHRONIC RESPIRATORY FAILURE WITH HYPOXIA Attending: CHARLIE HARO Current LOS: 13 Anticipated DC Date: 06-24-2018 Planned Disposition: Primary Insurance: [facility] MEDICARE SOLUTIONS Discharge Planning Comments: CM MET WITH PATIENT ABOUT DC PLANNING/NEEDS. STATES PLANS TO GO TO INPATIENT REHAB HERE AND THEN TO HOME. STATES USES A WALKER AT HOME. DENIES ANY NEEDS AT THIS TIME. CM WILL FOLLOW AND ASSIST NEEDED WITH DC PLANNING/NEEDS. IMM SIGNED. Treasury Manager: Rahel Uriostegui DCP- Discharge Planning Updated by [id number]: Ginny Saavedra on 06/14/18 3:[address] CM ATTEMPTED TO VISIT WITH PATIENT CURRENTLY ON VENT. NO FAMILY AVAILABLE DCPIA - Discharge Planning Initial Assessment Updated by [id number]: Rahel Uriostegui on 06/24/18 1:10 pm * Is the patient Alert and Oriented? Yes * PCP MILO * [facility]acy [facility] * Preadmission Environment Home with Family * ADLs Independent * Equipment Cane Nebulizer Oxygen Walker * List name and contact numbers for known caregivers / representatives who currently or will assist patient after discharge: ALMA ALVAREZ, DAUGHTER, * Community resources currently utilized None * Additional services required to return to the preadmission environment? Yes * Can the patient safely return to the preadmission environment? Yes * Has this patient been hospitalized within the prior 30 days at any hospital? Yes Coverage Notice Reviewer: [id number] - Rahel Uriostegui Notice Issued Date-Time: 06/24/2018 11:40 Notice Type: IM Discharge Notice Notice Delivered To: Patient Relationship to Patient: Self Hose Maker Name: Delivery Method: HAND - Hand Delivered Adrianne Days: Prior Verbal Notification: Recipient Understood Notice: Yes Recipient Signature: Yes Med Rec Note Co-signed by Attending: Coverage Notice Comment: Last DP export: 07/02/18 1:06 Patient Name: DOUGLAS HILLS Page [id number] at 1456 All edits/amendments must be made on the electronic document DICTATION DATE: 07/02/181455 AUTOMATION TECHNOLOGIST: CLEMENT 07/02/181455 RPT#: [id number] DC DATE: STATUS: ADM IN [facility] [address] [place] [address] END OF REPORT
--- NOTE | ~2018-06-11 | MORECARE ---
CASE MANAGEMENT DISCHARGE SUMMARY PATIENT: DOUGLAS HILLS UNIT: [id number] ADM DATE: 06/11/18 AGE: 52 : 63 SEX: F ROOM/BED: D.1212 AUTHOR: AMELIA MCGOVERN PHYSICIAN: REFERRING PHYSICIAN: CHARLIE HARO MD DATE OF SERVICE: 06/24/18 Discharge Plan Patient Name: DOUGLAS HILLS Facility: [facility]:[place] : 1965 Planned Disposition: Anticipated Discharge Date: 06/24/18 Discharge Date: Expected LOS: 13 Initial Reviewer: [id number] Initial Review Date: 06/22/2018 Generated: 06/24/18 3:13 pm Comments DCP- Discharge Planning Updated by [id number]: Rahel Uriostegui on 06/24/18 1:[address] Patient Name: DOUGLAS HILLS Admission Status: ER Accout number: [id number] Admission Date: 06-11-2018 : 1965 Admission Diagnosis:ACUTE AND CHRONIC RESPIRATORY FAILURE WITH HYPOXIA Attending: CHARLIE HARO Current LOS: 13 Anticipated DC Date: 06-24-2018 Planned Disposition: Primary Insurance: [facility] MEDICARE SOLUTIONS Discharge Planning Comments: CM MET WITH PATIENT ABOUT DC PLANNING/NEEDS. STATES PLANS TO GO TO INPATIENT REHAB HERE AND THEN TO HOME. [facility] USES A WALKER AT HOME. DENIES ANY NEEDS AT THIS TIME. CM WILL FOLLOW AND ASSIST NEEDED WITH DC PLANNING/NEEDS. IMM SIGNED. Valuation Consultant: Rahel Uriostegui DCP- Discharge Planning Updated by [id number]: Ginny Saavedra on 06/14/18 3:[address] CM ATTEMPTED TO VISIT WITH PATIENT CURRENTLY ON VENT. NO FAMILY AVAILABLE DCPIA - Discharge Planning Initial Assessment Updated by [id number]: Rahel Uriostegui on 06/24/18 1:10 pm * Is the patient Alert and Oriented? Yes * PCP MILO * [facility]acy [facility] * Preadmission Environment Home with Family * ADLs Independent * Equipment Cane Nebulizer Oxygen Walker * List name and contact numbers for known caregivers / representatives who currently or will assist patient after discharge: ALMA ALVAREZ, DAUGHTER, * Community resources currently utilized None * Additional services required to return to the preadmission environment? Yes * Can the patient safely return to the preadmission environment? Yes * Has this patient been hospitalized within the prior 30 days at any hospital? Yes Coverage Notice Reviewer: [id number] Bayron Uriostegui Notice Issued Date-Time: 06/24/2018 11:40 Notice Type: IM Discharge Notice Notice Delivered To: Patient Relationship to Patient: Self Computer Repairer Name: Delivery Method: HAND - Hand Delivered Adrianne Days: Prior Verbal Notification: Recipient Understood Notice: Yes Recipient Signature: Yes Med Rec Note Co-signed by Attending: Coverage Notice Comment: Last DP export: 06/24/18 12:12 p Patient Name: DOUGLAS HILLS Page 98077 at 1413 All edits/amendments must be made on the electronic document DICTATION DATE: 06/24/181412 SERVICE TECH: CLEMENT 06/24/18 141 RPT#: [id number] DC DATE: STATUS: ADM IN [facility] [address] [place] [address] END OF REPORT
--- NOTE | ~2018-06-11 | MORECARE ---
CASE MANAGEMENT DISCHARGE SUMMARY PATIENT: DOUGLAS HILLS UNIT: [id number] ADM DATE: 06/11/18 AGE: 52 : 63 SEX: F ROOM/BED: D.1212 AUTHOR: FROILAN,DOC PHYSICIAN: REFERRING PHYSICIAN: CHARLIE HARO MD DATE OF SERVICE: 07/02/18 Discharge Plan Patient Name: DOUGLAS HILLS Facility: [facility]:[place] : 1965 Planned Disposition: Anticipated Discharge Date: 06/24/18 Discharge Date: Expected LOS: 13 Initial Reviewer: [email or web address] Initial Review Date: 06/22/2018 Generated: 07/02/18 2:22 pm Comments DCP- Discharge Planning Updated by [email or web address]: Annel De La Rosa on 07/02/18 12:[address] CM met with patient regarding discharge planning / needs. Patient states her plan is to discharge to home. States she has trilogy with her home O2. States her Nebulizer is broken and she will need it replaced. States she uses [facility]. CM called [facility] and left message for them to return CM's call about broken Nebulizer. States her daughter, ALMA ALVAREZ, , will drive her home upon hospital DC. CM attempted to reach Alma but received message that stated her voice mail was full. Will continue to attempt to reach Alma. CM will continue to follow and assist as needed with discharge planning / needs. DCP- Discharge Planning Updated by [id number]: Marycruz Webb on 07/01/18 7:[address] PHYSICAL THERAPY SIGNED OFF 06/27 PATIENT AMBULATED 100 FT W/ 20% ASSIST WITH WHEELED WALKER. HAD OT EVAL 06/24. PATIENT NOT MEETING CRITERIA FOR ACUTE REHAB. PATIENT FEELS SHE WOULD LIKE TO PLAN FOR HOME WITH HOME CARE PARTICULARLY [employer] [facility].. SHE IS VERY CONCERNEDODAY SHE IS "COUGHING BLOOD" TODAY. CAT OF CHEST PLANNED FOR TODAY. AWAIT RESULTS AND MD PLAN. CM FOLLOWING TO ASSIST. DCP- Discharge Planning Updated by [id number]: Rahel Uriostegui on 06/24/18 1:[address] Patient Name: DOUGLAS HILLS Admission Status: ER Accout number: [id number] Admission Date: 06-11-2018 : 1965 Admission Diagnosis:ACUTE AND CHRONIC RESPIRATORY FAILURE WITH HYPOXIA Attending: CHARLIE HARO Current LOS: 13 Anticipated DC Date: 06-24-2018 Planned Disposition: Primary Insurance: [employer] MEDICARE SOLUTIONS Discharge Planning Comments: CM MET WITH PATIENT ABOUT DC PLANNING/NEEDS. STATES PLANS TO GO TO INPATIENT REHAB HERE AND THEN TO HOME. STATES USES A WALKER AT HOME. DENIES ANY NEEDS AT THIS TIME. CM WILL FOLLOW AND ASSIST NEEDED WITH DC PLANNING/NEEDS. IMM SIGNED. National Dedicated Truck Driver: Rahel Uriostegui DCP- Discharge Planning Updated by [email or web address]: Ginny Saavedra on 06/14/18 3:[address] CM ATTEMPTED TO VISIT WITH PATIENT CURRENTLY ON VENT. NO FAMILY AVAILABLE DCPIA - Discharge Planning Initial Assessment Updated by [id number]: Rahel Uriostegui on 06/24/18 1:10 pm * Is the patient Alert and Oriented? Yes * PCP MILO * [facility]acy [facility] * Preadmission Environment Home with Family * ADLs Independent * Equipment Cane Nebulizer Oxygen Walker * List name and contact numbers for known caregivers / representatives who currently or will assist patient after discharge: ALMA ALVAREZ, DAUGHTER, * Community resources currently utilized None * Additional services required to return to the preadmission environment? Yes * Can the patient safely return to the preadmission environment? Yes * Has this patient been hospitalized within the prior 30 days at any hospital? Yes Coverage Notice Reviewer: [id number] - Rahel Uriostegui Notice Issued Date-Time: 06/24/2018 11:40 Notice Type: IM Discharge Notice Notice Delivered To: Patient Relationship to Patient: Self Doctor Of Dental Medicine Name: Delivery Method: HAND - Hand Delivered Adrianne Days: Prior Verbal Notification: Recipient Understood Notice: Yes Recipient Signature: Yes Med Rec Note Co-signed by Attending: Coverage Notice Comment: Last DP export: 07/02/18 12:12 Patient Name: DOUGLAS HILLS Page 14758 at 1322 All edits/amendments must be made on the electronic document DICTATION DATE: 07/02/18 1322 RAP ARTIST: CLEMENT 07/02/18 1322 RPT#: [id number] DC DATE: STATUS: ADM IN [facility] [address] [place] [address] END OF REPORT
--- NOTE | ~2018-06-11 | MORECARE ---
CASE MANAGEMENT DISCHARGE SUMMARY PATIENT: DOUGLAS HILLS UNIT: [id number] ADM DATE: 06/11/18 AGE: 52 : 63 SEX: F ROOM/BED: D.2233 AUTHOR: FROILAN,DOC PHYSICIAN: REFERRING PHYSICIAN: CHARLIE HARO MD DATE OF SERVICE: 07/12/18 Discharge Plan Patient Name: DOUGLAS HILLS Facility: [facility]:[place] : 1965 Planned Disposition: Anticipated Discharge Date: 06/24/18 Discharge Date: Expected LOS: 13 Initial Reviewer: [id number] Initial Review Date: 06/22/2018 Generated: 07/12/18 1:50 pm Comments DCP- Discharge Planning Updated by [id number]: Thelma Marinsantiago on 07/12/18 11:[address] Met with patient and informed her that she did not have any skilled therapy days left for skilled therapy per Mary Estrada. She agrees to going to halfway care at [facility]. I messaged Mary Estrada to get this process started. Dr. Marsh states she may not go home awaiting terminal gauger [facility] placement. CM will continue to follow and assist with discharge planning/needs. DCP- Discharge Planning Updated by [id number]: Thelma Marinsantiago on 07/11/18 1:[address] Met with patient in the room to discuss discharge planning. She would like to return to [facility] on discharge. I called Mary Estrada and clinical sent. CM will continue to follow and assist with discharge planning/needs. DCP- Discharge Planning Updated by [id number]: Marycruz Webb on 07/08/18 2:[address] PATIENT SPIKED TEMP 102 WITHIN LAST 24 HRS AND 100.2 TODAY. HER PULSE IS 98- 115 BPM. DEVELOPED RESPIRATORY DISTRESS THIS AFTERNOON. SEEN BY DR MARSH AND DR BRITTON. SHE IS BEING TRANSFERED TO ICU AT THIS TIME. DCP- Discharge Planning Updated by [id number]: Annel De La Rosa on 07/02/18 1:[address] CM received call back from Sara with [facility] regarding patient's Nebulizer. Sara informed CM that she had the replacement Nebulizer ready for delivery. CM just needs to call [facility] at [phone] when DC order is entered and [facility] will deliver new Nebulizer to hospital. DCP- Discharge Planning Updated by [id number]: Annel De La Rosa on 07/02/18 12:[address] CM met with patient regarding discharge planning / needs. Patient states her plan is to discharge to home. States she has trilogy with her home O2. States her Nebulizer is broken and she will need it replaced. States she uses [facility]. CM called [facility] and left message for them to return CM's call about broken Nebulizer. States her daughter, ALMA ALVAREZ, , will drive her home upon hospital DC. CM attempted to reach Alma but received message that stated her voice mail was full. Will continue to attempt to reach Alma. CM will continue to follow and assist as needed with discharge planning / needs. DCP- Discharge Planning Updated by [id number]: Marycruz Webb on 07/01/18 7:[address] PHYSICAL THERAPY SIGNED OFF 06/27 PATIENT AMBULATED 100 FT W/ 20% ASSIST WITH WHEELED WALKER. HAD OT EVAL 06/24. PATIENT NOT MEETING CRITERIA FOR ACUTE REHAB. PATIENT FEELS SHE WOULD LIKE TO PLAN FOR HOME WITH HOME CARE PARTICULARLY [place] [employer].. SHE IS VERY CONCERNEDODAY SHE IS "COUGHING BLOOD" TODAY. CAT OF CHEST PLANNED FOR TODAY. AWAIT RESULTS AND MD PLAN. CM FOLLOWING TO ASSIST. DCP- Discharge Planning Updated by [id number]: Rahel Uriostegui on 06/24/18 1:[address] Patient Name: DOUGLAS HILLS Admission Status: ER Accout number: [id number] Admission Date: 06-11-2018 : 1965 Admission Diagnosis:ACUTE AND CHRONIC RESPIRATORY FAILURE WITH HYPOXIA Attending: CHARLIE HARO Current LOS: 13 Anticipated DC Date: 06-24-2018 Planned Disposition: Primary Insurance: [facility] MEDICARE SOLUTIONS Discharge Planning Comments: CM MET WITH PATIENT ABOUT DC PLANNING/NEEDS. STATES PLANS TO GO TO INPATIENT REHAB HERE AND THEN TO HOME. STATES USES A WALKER AT HOME. DENIES ANY NEEDS AT THIS TIME. CM WILL FOLLOW AND ASSIST NEEDED WITH DC PLANNING/NEEDS. IMM SIGNED. Weather Anchor: Rahel Uriostegui DCP- Discharge Planning Updated by [id number]: Ginny Saavedra on 06/14/18 3:[address] CM ATTEMPTED TO VISIT WITH PATIENT CURRENTLY ON VENT. NO FAMILY AVAILABLE DCPIA - Discharge Planning Initial Assessment Updated by [id number]: Rahel Uriostegui on 06/24/18 1:10 pm * Is the patient Alert and Oriented? Yes * PCP MILO * [facility]acy [facility] * Preadmission Environment Home with Family * ADLs Independent * Equipment Cane Nebulizer Oxygen Walker * List name and contact numbers for known caregivers / representatives who currently or will assist patient after discharge: ALMA ALVAREZ, DAUGHTER, * Community resources currently utilized None * Additional services required to return to the preadmission environment? Yes * Can the patient safely return to the preadmission environment? Yes * Has this patient been hospitalized within the prior 30 days at any hospital? Yes Coverage Notice Reviewer: [id number] - Rahel Uriostegui Notice Issued Date-Time: 06/24/2018 11:40 Notice Type: IM Discharge Notice Notice Delivered To: Patient Relationship to Patient: Self Steam Blocker Name: Delivery Method: HAND - Hand Delivered Adrianne Days: Prior Verbal Notification: Recipient Understood Notice: Yes Recipient Signature: Yes Med Rec Note Co-signed by Attending: Coverage Notice Comment: Last DP export: 07/11/18 1:35 Patient Name: DOUGLAS HILLS Page [id number] at 1250 All edits/amendments must be made on the electronic document DICTATION DATE: 07/12/18 124 WAFER POLISHING WORKER: CLEMENT 07/12/18 1249 RPT#: [id number] DC DATE: STATUS: ADM IN [facility] [address] [place] [address] END OF REPORT
--- NOTE | ~2018-06-11 | MORECARE ---
CASE MANAGEMENT DISCHARGE SUMMARY PATIENT: DOUGLAS HILLS UNIT: [id number] ADM DATE: 06/11/18 AGE: 52 : 63 SEX: F ROOM/BED: D.2233 AUTHOR: FROILAN,DOC PHYSICIAN: REFERRING PHYSICIAN: CHARLIE HARO MD DATE OF SERVICE: 07/18/18 Discharge Plan Patient Name: DOUGLAS HILLS Facility: [facility]:[place] : 1965 Planned Disposition: Anticipated Discharge Date: 06/24/18 Discharge Date: 07/18/2018 Expected LOS: 13 Initial Reviewer: [id number] Initial Review Date: 06/22/2018 Generated: 07/18/18 5:04 pm Comments DCP- Discharge Planning Updated by [id number]: Thelma Madelin on 07/18/18 2:[address] I called [facility] and spoke to Shaye, they had delivered her new nebulizer to the hospital last Sunday. DCP- Discharge Planning Updated by [id number]: Thelma Yusuf on 07/18/18 11:[address] Discharging home today with home health. I spoke with Radha at [facility], they will begin seeing her in the morning. Holger has instructed her on IV administration. Patient states she understands how to do her own IV administration. States her and her daughter have done it in the past. States she has all the equipment she needs. No other needs identified. CM will continue to follow and assist with discharge planning/needs. DCP- Discharge Planning Updated by [email or web address]: Thelma Yusuf on 07/18/18 8:[address] Holger with [facility] has delivered IV antibiotic to room and did the first teaching with patient. [facility] will begin services this evening. CM will continue to follow and assist with discharge planning/needs. DCP- Discharge Planning Updated by [id number]: Thelma Yusuf on 07/17/18 1:[address] Spoke with patient regarding IV infusion companies. I have not received a quote back from [facility] has quoted 100% paid for this year and 183 dollars total for next year antibiotics and supplies. Patient states she has used [facility] in the past and would like to continue to use [facility]. I spoke with [facility] and they are not able to staff for IV antibiotics. Patient states she would like me to use any home health that will accept her and to go by the [facility] with [facility]. I called [facility] and [facility] states they cannot staff until Sunday. I called [facility] and spoke with Radha and they can see her tomorrow. Clinical faxed to [facility]. CM will continue to follow and assist with discharge planning/needs. DCP- Discharge Planning Updated by [id number]: Thelma Madelin on 07/17/18 10:[address] Called and faxed clinical/order for antibiotic tanner quote to [facility]. CM will continue to follow and assist with discharge planning/needs. DCP- Discharge Planning Updated by [id number]: Thelma Madelin on 07/12/18 1:[address] I called Shaye with [facility] regarding nebulizer, she states she will have a water taxi driver bring her nebulizer to her today. DCP- Discharge Planning Updated by [id number]: Thelma Madelin on 07/12/18 12:[address] [facility] has denied ltc placement due to cost. She does not want to go anywhere else at this time. Kyleigh Osorio came in the room when I was talking with her and states she can go home tomorrow. Patient is wanting to go home. MATT for home health given and she chooses [facility]. I called [facility] and faxed clinical and order. CM will continue to follow and assist with discharge planning/needs. DCP- Discharge Planning Updated by [id number]: Thelmamaria fernanda Yusuf on 07/12/18 11:[address] Met with patient and informed her that she did not have any skilled therapy days left for skilled therapy per Mary Estrada. She agrees to going to returned materials inspector care at [facility]. I messaged Mary Estrada to get this process started. Dr. Marsh states she may not go home awaiting correction [facility] placement. CM will continue to follow and assist with discharge planning/needs. DCP- Discharge Planning Updated by [id number]: Thelma Yusuf on 07/11/18 1:[address] Met with patient in the room to discuss discharge planning. She would like to return to [facility] on discharge. I called Mary Estrada and clinical sent. CM will continue to follow and assist with discharge planning/needs. DCP- Discharge Planning Updated by [id number]: Marycruz Webb on 07/08/18 2:[address] PATIENT SPIKED TEMP 102 WITHIN LAST 24 HRS AND 100.2 TODAY. HER PULSE IS 98- 115 BPM. DEVELOPED RESPIRATORY DISTRESS THIS AFTERNOON. SEEN BY DR MARSH AND DR BRITTON. SHE IS BEING TRANSFERED TO ICU AT THIS TIME. DCP- Discharge Planning Updated by [id number]: Annel De La Rosa on 07/02/18 1:[address] CM received call back from Sara with [facility] regarding patient's Nebulizer. Sara informed CM that she had the replacement Nebulizer ready for delivery. CM just needs to call [facility] at [phone] when DC order is entered and [facility] will deliver new Nebulizer to hospital. DCP- Discharge Planning Updated by [id number]: Annel De La Rosa on 07/02/18 12:[address] CM met with patient regarding discharge planning / needs. Patient states her plan is to discharge to home. States she has trilogy with her home O2. States her Nebulizer is broken and she will need it replaced. States she uses [facility]. CM called [facility] and left message for them to return CM's call about broken Nebulizer. States her daughter, ALMA ALVAREZ, , will drive her home upon hospital DC. CM attempted to reach Alma but received message that stated her voice mail was full. Will continue to attempt to reach Alma. CM will continue to follow and assist as needed with discharge planning / needs. DCP- Discharge Planning Updated by [id number]: Marycruz Webb on 07/01/18 7:[address] PHYSICAL THERAPY SIGNED OFF 06/27 PATIENT AMBULATED 100 FT W/ 20% ASSIST WITH WHEELED WALKER. HAD OT EVAL 06/24. PATIENT NOT MEETING CRITERIA FOR ACUTE REHAB. PATIENT FEELS SHE WOULD LIKE TO PLAN FOR HOME WITH HOME CARE PARTICULARLY [place] [employer].. SHE IS VERY CONCERNEDODAY SHE IS "COUGHING BLOOD" TODAY. CAT OF CHEST PLANNED FOR TODAY. AWAIT RESULTS AND MD PLAN. CM FOLLOWING TO ASSIST. DCP- Discharge Planning Updated by [id number]: Rahel Uriostegui on 06/24/18 1:[address] Patient Name: DOUGLAS HILLS Admission Status: ER Accout number: [id number] Admission Date: 06-11-2018 : 1965 Admission Diagnosis:ACUTE AND CHRONIC RESPIRATORY FAILURE WITH HYPOXIA Attending: CHARLIE HARO Current LOS: 13 Anticipated DC Date: 06-24-2018 Planned Disposition: Primary Insurance: [facility] MEDICARE SOLUTIONS Discharge Planning Comments: CM MET WITH PATIENT ABOUT DC PLANNING/NEEDS. STATES PLANS TO GO TO INPATIENT REHAB HERE AND THEN TO HOME. STATES USES A WALKER AT HOME. DENIES ANY NEEDS AT THIS TIME. CM WILL FOLLOW AND ASSIST NEEDED WITH DC PLANNING/NEEDS. IMM SIGNED. Assessment Nurse: Rahel Uriostegui DCP- Discharge Planning Updated by [id number]: Ginny Saavedra on 06/14/18 3:[address] CM ATTEMPTED TO VISIT WITH PATIENT CURRENTLY ON VENT. NO FAMILY AVAILABLE DCPIA - Discharge Planning Initial Assessment Updated by [id number]: Rahel Uriostegui on 06/24/18 1:10 pm * Is the patient Alert and Oriented? Yes * PCP MILO * [facility]acy [facility] * Preadmission Environment Home with Family * ADLs Independent * Equipment Cane Nebulizer Oxygen Walker * List name and contact numbers for known caregivers / representatives who currently or will assist patient after discharge: ALMA ALVAREZ, DAUGHTER, * Community resources currently utilized None * Additional services required to return to the preadmission environment? Yes * Can the patient safely return to the preadmission environment? Yes * Has this patient been hospitalized within the prior 30 days at any hospital? Yes Coverage Notice Reviewer: [id number] - Rahel Uriostegui Notice Issued Date-Time: 06/24/2018 11:40 Notice Type: IM Discharge Notice Notice Delivered To: Patient Relationship to Patient: Self Tire Beader Maker Name: Delivery Method: HAND - Hand Delivered Adrianne Days: Prior Verbal Notification: Recipient Understood Notice: Yes Recipient Signature: Yes Med Rec Note Co-signed by Attending: Coverage Notice Comment: Reviewer: [id number] - Thelma Yusuf Notice Issued Date-Time: 07/18/2018 12:02 Notice Type: IM Discharge Notice Notice Delivered To: Patient Relationship to Patient: Self Tire Beader Maker Name: Delivery Method: HAND - Hand Delivered Adrianne Days: Prior Verbal Notification: Recipient Understood Notice: Yes Recipient Signature: Yes Med Rec Note Co-signed by Attending: Coverage Notice Comment: IMM explained, signed, copy given, original placed in MR Last DP export: 07/18/18 11:16 Patient Name: DOUGLAS HILLS Page 77502 at 1605 All edits/amendments must be made on the electronic document DICTATION DATE: 07/18/181603 CASING GRADER: CLEMENT 07/18/181603 RPT#: [id number] DC DATE:07/18/18 STATUS: DIS IN [facility] [address] [place] [address] END OF REPORT
--- NOTE | ~2018-06-11 | MORECARE ---
CASE MANAGEMENT DISCHARGE SUMMARY PATIENT: DOUGLAS HILLS UNIT: [id number] ADM DATE: 06/11/18 AGE: 52 : 63 SEX: F ROOM/BED: D.2233 AUTHOR: FROILAN,DOC PHYSICIAN: REFERRING PHYSICIAN: CHARLIE HARO MD DATE OF SERVICE: 07/12/18 Discharge Plan Patient Name: DOUGLAS HILLS Facility: [facility]:[place] : 1965 Planned Disposition: Anticipated Discharge Date: 06/24/18 Discharge Date: Expected LOS: 13 Initial Reviewer: [email or web address] Initial Review Date: 06/22/2018 Generated: 07/12/18 3:43 pm Comments DCP- Discharge Planning Updated by [email or web address]: Thelma Yusuf on 07/12/18 1:[address] I called Shaye with [facility] regarding nebulizer, she states she will have a driver education road instructor bring her nebulizer to her today. DCP- Discharge Planning Updated by [id number]: Thelma Madelin on 07/12/18 12:[address] [facility] has denied ltc placement due to cost. She does not want to go anywhere else at this time. Kyleigh Osorio came in the room when I was talking with her and states she can go home tomorrow. Patient is wanting to go home. MATT for home health given and she chooses [facility]. I called [facility] and faxed clinical and order. CM will continue to follow and assist with discharge planning/needs. DCP- Discharge Planning Updated by [id number]: Thelma Yusuf on 07/12/18 11:[address] Met with patient and informed her that she did not have any skilled therapy days left for skilled therapy per Mary Estrada. She agrees to going to rn long term care care at [facility]. I messaged Mary Estrada to get this process started. Dr. Marsh states she may not go home awaiting half-way NH placement. CM will continue to follow and assist with discharge planning/needs. DCP- Discharge Planning Updated by [id number]: Thelma Yusuf on 07/11/18 1:[address] Met with patient in the room to discuss discharge planning. She would like to return to [facility] on discharge. I called Mary Estrada and clinical sent. CM will continue to follow and assist with discharge planning/needs. DCP- Discharge Planning Updated by [id number]: Marycruz Webb on 07/08/18 2:[address] PATIENT SPIKED TEMP 102 WITHIN LAST 24 HRS AND 100.2 TODAY. HER PULSE IS 98- 115 BPM. DEVELOPED RESPIRATORY DISTRESS THIS AFTERNOON. SEEN BY DR MARSH AND DR BRITTON. SHE IS BEING TRANSFERED TO ICU AT THIS TIME. DCP- Discharge Planning Updated by [email or web address]: Annel De La Rosa on 07/02/18 1:[address] [facility]. Sara informed CM that she had the replacement Nebulizer ready for delivery. CM just needs to call [facility] at [phone] when DC order is entered and [facility] will deliver new Nebulizer to hospital. DCP- Discharge Planning Updated by [id number]: Annel De La Rosa on 07/02/18 12:[address] CM met with patient regarding discharge planning / needs. Patient states her plan is to discharge to home. States she has trilogy with her home O2. States her Nebulizer is broken and she will need it replaced. States she uses [facility]. CM called [facility] and left message for them to return CM's call about broken Nebulizer. States her daughter, ALMA ALVAREZ, , will drive her home upon hospital DC. CM attempted to reach Alma but received message that stated her voice mail was full. Will continue to attempt to reach Alma. CM will continue to follow and assist as needed with discharge planning / needs. DCP- Discharge Planning Updated by [id number]: Marycruz Webb on 07/01/18 7:[address] PHYSICAL THERAPY SIGNED OFF 06/27 PATIENT AMBULATED 100 FT W/ 20% ASSIST WITH WHEELED WALKER. HAD OT EVAL 06/24. PATIENT NOT MEETING CRITERIA FOR ACUTE REHAB. PATIENT FEELS SHE WOULD LIKE TO PLAN FOR HOME WITH HOME CARE PARTICULARLY [place] [employer].. SHE IS VERY CONCERNEDODAY SHE IS "COUGHING BLOOD" TODAY. CAT OF CHEST PLANNED FOR TODAY. AWAIT RESULTS AND MD PLAN. CM FOLLOWING TO ASSIST. DCP- Discharge Planning Updated by [id number]: Rahel Uriostegui on 06/24/18 1:[address] Patient Name: DOUGLAS HILLS Admission Status: ER Accout number: [id number] Admission Date: 06-11-2018 : 1965 Admission Diagnosis:ACUTE AND CHRONIC RESPIRATORY FAILURE WITH HYPOXIA Attending: CHARLIE HARO Current LOS: 13 Anticipated DC Date: 06-24-2018 Planned Disposition: Primary Insurance: [facility] MEDICARE SOLUTIONS Discharge Planning Comments: CM MET WITH PATIENT ABOUT DC PLANNING/NEEDS. STATES PLANS TO GO TO INPATIENT REHAB HERE AND THEN TO HOME. STATES USES A WALKER AT HOME. DENIES ANY NEEDS AT THIS TIME. CM WILL FOLLOW AND ASSIST NEEDED WITH DC PLANNING/NEEDS. IMM SIGNED. Womens [facility] Nurse Practitioner: Rahel Uriostegui DCP- Discharge Planning Updated by [id number]: Ginny Saavedra on 06/14/18 3:[address] CM ATTEMPTED TO VISIT WITH PATIENT CURRENTLY ON VENT. NO FAMILY AVAILABLE DCPIA - Discharge Planning Initial Assessment Updated by [email or web address]: Rahel Uriostegui on 06/24/18 1:10 pm * Is the patient Alert and Oriented? Yes * PCP MILO * [facility] * Preadmission Environment Home with Family * ADLs Independent * Equipment Cane Nebulizer Oxygen Walker * List name and contact numbers for known caregivers / representatives who currently or will assist patient after discharge: ALMA ALVAREZ, DAUGHTER, * Community resources currently utilized None * Additional services required to return to the preadmission environment? Yes * Can the patient safely return to the preadmission environment? Yes * Has this patient been hospitalized within the prior 30 days at any hospital? Yes Coverage Notice Reviewer: [id number] - Rahel Uriostegui Notice Issued Date-Time: 06/24/2018 11:40 Notice Type: IM Discharge Notice Notice Delivered To: Patient Relationship to Patient: Self Millinery Worker Name: Delivery Method: HAND - Hand Delivered Adrianne Days: Prior Verbal Notification: Recipient Understood Notice: Yes Recipient Signature: Yes Med Rec Note Co-signed by Attending: Coverage Notice Comment: Last DP export: 07/12/18 1:01 Patient Name: DOUGLAS HILLS Page 40786 at 1443 All edits/amendments must be made on the electronic document DICTATION DATE: 07/12/181441 ICE CREAM SHOP ASSOCIATE: CLEMENT 07/12/181441 RPT#: [id number] DC DATE: STATUS: ADM IN [facility] [address] [place] [address] END OF REPORT
--- NOTE | ~2018-06-11 | MORECARE ---
CASE MANAGEMENT DISCHARGE SUMMARY PATIENT: DOUGLAS HILLS UNIT: [id number] ADM DATE: 06/11/18 AGE: 52 : 63 SEX: F ROOM/BED: D.[facility] AUTHOR: FROILAN,DOC PHYSICIAN: REFERRING PHYSICIAN: CHARLIE HARO MD DATE OF SERVICE: 07/11/18 Discharge Plan Patient Name: DOUGLAS HILLS Facility: [facility]:[place] : 1965 Planned Disposition: Anticipated Discharge Date: 06/24/18 Discharge Date: Expected LOS: 13 Initial Reviewer: [id number] Initial Review Date: 06/22/2018 Generated: 07/11/18 3:34 pm Comments DCP- Discharge Planning Updated by [email or web address]: Thelmamaria fernanda Yusuf on 07/11/18 1:[address] Met with patient in the room to discuss discharge planning. She would like to return to [facility] on discharge. I called Mary Estrada and clinical sent. CM will continue to follow and assist with discharge planning/needs. DCP- Discharge Planning Updated by [email or web address]: Marycruz Webb on 07/08/18 2:[address] PATIENT SPIKED TEMP 102 WITHIN LAST 24 HRS AND 100.2 TODAY. HER PULSE IS 98- 115 BPM. DEVELOPED RESPIRATORY DISTRESS THIS AFTERNOON. SEEN BY DR ANGELES AND DR BRITTON. SHE IS BEING TRANSFERED TO ICU AT THIS TIME. DCP- Discharge Planning Updated by [id number]: Annel De La Rosa on 07/02/18 1:[address] CM received call back from Sara with [facility] regarding patient's Nebulizer. Sara informed CM that she had the replacement Nebulizer ready for delivery. CM just needs to call [facility] at [phone] when DC order is entered and [facility] will deliver new Nebulizer to hospital. DCP- Discharge Planning Updated by [id number]: Annel De La Rosa on 07/02/18 12:[address] CM met with patient regarding discharge planning / needs. Patient states her plan is to discharge to home. States she has trilogy with her home O2. States her Nebulizer is broken and she will need it replaced. States she uses [facility]. CM called [facility] and left message for them to return CM's call about broken Nebulizer. States her daughter, ALMA ALVAREZ, , will drive her home upon hospital DC. CM attempted to reach Alma but received message that stated her voice mail was full. Will continue to attempt to reach Alma. CM will continue to follow and assist as needed with discharge planning / needs. DCP- Discharge Planning Updated by [email or web address]: Marycruz Webb on 07/01/18 7:[address] PHYSICAL THERAPY SIGNED OFF 06/27 PATIENT AMBULATED 100 FT W/ 20% ASSIST WITH WHEELED WALKER. HAD OT EVAL 06/24. PATIENT NOT MEETING CRITERIA FOR ACUTE REHAB. PATIENT FEELS SHE WOULD LIKE TO PLAN FOR HOME WITH HOME CARE PARTICULARLY [employer].. SHE IS VERY CONCERNEDODAY SHE IS "COUGHING BLOOD" TODAY. CAT OF CHEST PLANNED FOR TODAY. AWAIT RESULTS AND MD PLAN. CM FOLLOWING TO ASSIST. DCP- Discharge Planning Updated by [email or web address]: Rahel Uriostegui on 06/24/18 1:[address] Patient Name: DOUGLAS HILLS Admission Status: Accout number: [id number] Admission Date: 06-11-2018 : 1965 Admission Diagnosis:ACUTE AND CHRONIC RESPIRATORY FAILURE WITH HYPOXIA Attending: CHARLIE HARO Current LOS: 13 Anticipated DC Date: 06-24-2018 Planned Disposition: Primary Insurance: [facility] MEDICARE SOLUTIONS Discharge Planning Comments: CM MET WITH PATIENT ABOUT DC PLANNING/NEEDS. STATES PLANS TO GO TO INPATIENT REHAB HERE AND THEN TO HOME. STATES USES A WALKER AT HOME. DENIES ANY NEEDS AT THIS TIME. CM WILL FOLLOW AND ASSIST NEEDED WITH DC PLANNING/NEEDS. IMM SIGNED. Senior Abap Developer: Rahel Uriostegui DCP- Discharge Planning Updated by [email or web address]: Ginny Saavedra on 06/14/18 3:[address] CM ATTEMPTED TO VISIT WITH PATIENT CURRENTLY ON VENT. NO FAMILY AVAILABLE DCPIA - Discharge Planning Initial Assessment Updated by [email or web address]: Rahel Uriostegui on 06/24/18 1:10 pm * Is the patient Alert and Oriented? Yes * PCP MILO * [facility]acy [facility] * Preadmission Environment Home with Family * ADLs Independent * Equipment Cane Nebulizer Oxygen Walker * List name and contact numbers for known caregivers / representatives who currently or will assist patient after discharge: ALMA ALVAREZ, DAUGHTER, * Community resources currently utilized None * Additional services required to return to the preadmission environment? Yes * Can the patient safely return to the preadmission environment? Yes * Has this patient been hospitalized within the prior 30 days at any hospital? Yes External Providers External Provider: [facility] Next Contact Date: Service Request Date: Service Type: Resolution: Reviewer: Comments: Coverage Notice Reviewer: [email or web address] Bayron Uriostegui Notice Issued Date-Time: 06/24/2018 11:40 Notice Type: IM Discharge Notice Notice Delivered To: Patient Relationship to Patient: Self Director Business Systems Name: Delivery Method: HAND - Hand Delivered Adrianne Days: Prior Verbal Notification: Recipient Understood Notice: Yes Recipient Signature: Yes Med Rec Note Co-signed by Attending: Coverage Notice Comment: Last DP export: 07/08/18 3:00 Patient Name: DOUGLAS HILLS Page 37165 at 1435 All edits/amendments must be made on the electronic document DICTATION DATE: 07/11/18 1434 FIELD ASSISTANT: CLEMENT 07/11/18 1434 RPT#: [id number] DC DATE: STATUS: ADM IN [facility] [address] [place] [address] END OF REPORT
--- NOTE | ~2018-06-11 | MORECARE ---
CASE MANAGEMENT DISCHARGE SUMMARY PATIENT: DOUGLAS HILLS UNIT: [id number] ADM DATE: 06/11/18 AGE: 52 : 63 SEX: F ROOM/BED: D.2233 AUTHOR: FROILAN,DOC PHYSICIAN: REFERRING PHYSICIAN: CHARLIE HARO MD DATE OF SERVICE: 07/17/18 Discharge Plan Patient Name: DOUGLAS HILLS Facility: [facility]:[place] : 1965 Planned Disposition: Anticipated Discharge Date: 06/24/18 Discharge Date: Expected LOS: 13 Initial Reviewer: [email or web address] Initial Review Date: 06/22/2018 Generated: 07/17/18 12:38 pm Comments DCP- Discharge Planning Updated by [email or web address]: Thelma Madelin on 07/17/18 10:[address] Called and faxed clinical/order for antibiotic tanner quote to [place] and [place]. CM will continue to follow and assist with discharge planning/needs. DCP- Discharge Planning Updated by [id number]: Thelma Madelin on 07/12/18 1:[address] I called Shaye with [facility] regarding nebulizer, she states she will have a sprinkler driver bring her nebulizer to her today. DCP- Discharge Planning Updated by [email or web address]: Thelma Madelin on 07/12/18 12:[address] [facility] has denied ltc placement due to cost. She does not want to go anywhere else at this time. Kyleigh Osorio came in the room when I was talking with her and states she can go home tomorrow. Patient is wanting to go home. MATT for home health given and she chooses [facility]. I called [facility] and faxed clinical and order. CM will continue to follow and assist with discharge planning/needs. DCP- Discharge Planning Updated by [email or web address]: Thelma Madelin on 07/12/18 11:[address] Met with patient and informed her that she did not have any skilled therapy days left for skilled therapy per Mary Estarda. 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 I messaged Mary Estrada to get this process started. Dr. Marsh states she may not go home awaiting custodial NH placement. CM will continue to follow and assist with discharge planning/needs. DCP- Discharge Planning Updated by [email or web address]: Thelma Yusuf on 07/11/18 1:[address] Met with patient in the room to discuss discharge planning. She would like to return to [facility] on discharge. I called Mary Estrada and clinical sent. CM will continue to follow and assist with discharge planning/needs. DCP- Discharge Planning Updated by [email or web address]: Marycruz Webb on 07/08/18 2:[address] PATIENT SPIKED TEMP 102 WITHIN LAST 24 HRS AND 100.2 TODAY. HER PULSE IS 98- 115 BPM. DEVELOPED RESPIRATORY DISTRESS THIS AFTERNOON. SEEN BY DR MARSH AND DR BRITTON. SHE IS BEING TRANSFERED TO ICU AT THIS TIME. DCP- Discharge Planning Updated by [id number]: Annel De La Rosa on 07/02/18 1:[address] CM received call back from Sara with [facility] regarding patient's Nebulizer. Sara informed CM that she had the replacement Nebulizer ready for delivery. CM just needs to call [facility] at [phone] when DC order is entered and [facility] will deliver new Nebulizer to hospital. DCP- Discharge Planning Updated by [email or web address]: Annel De La Rosa on 07/02/18 12:[address] CM met with patient regarding discharge planning / needs. Patient states her plan is to discharge to home. States she has trilogy with her home O2. States her Nebulizer is broken and she will need it replaced. States she uses [facility]. CM called [facility] and left message for them to return CM's call about broken Nebulizer. States her daughter, ALMA ALVAREZ, , will drive her home upon hospital DC. CM attempted to reach Alma but received message that stated her voice mail was full. Will continue to attempt to reach Alma. CM will continue to follow and assist as needed with discharge planning / needs. DCP- Discharge Planning Updated by [email or web address]: Marycruz Webb on 07/01/18 7:[address] PHYSICAL THERAPY SIGNED OFF 06/27 PATIENT AMBULATED 100 FT W/ 20% ASSIST WITH WHEELED WALKER. HAD OT EVAL 06/24. PATIENT NOT MEETING CRITERIA FOR ACUTE REHAB. PATIENT FEELS SHE WOULD LIKE TO PLAN FOR HOME WITH HOME CARE PARTICULARLY [employer].. SHE IS VERY CONCERNEDODAY SHE IS "COUGHING BLOOD" TODAY. CAT OF CHEST PLANNED FOR TODAY. AWAIT RESULTS AND MD PLAN. CM FOLLOWING TO ASSIST. DCP- Discharge Planning Updated by [id number]: Rahel Uriostegui on 06/24/18 1:[address] Patient Name: DOUGLAS HILLS Admission Status: ER Accout number: [id number] Admission Date: 06-11-2018 : 1965 Admission Diagnosis:ACUTE AND CHRONIC RESPIRATORY FAILURE WITH HYPOXIA Attending: CHARLIE HARO Current LOS: 13 Anticipated DC Date: 06-24-2018 Planned Disposition: Primary Insurance: [facility] MEDICARE SOLUTIONS Discharge Planning Comments: CM MET WITH PATIENT ABOUT DC PLANNING/NEEDS. STATES PLANS TO GO TO INPATIENT REHAB HERE AND THEN TO HOME. STATES USES A WALKER AT HOME. DENIES ANY NEEDS AT THIS TIME. CM WILL FOLLOW AND ASSIST NEEDED WITH DC PLANNING/NEEDS. IMM SIGNED. Under Cutting Machine Operator: Rahel Uriostegui DCP- Discharge Planning Updated by [email or web address]: Ginny Saavedra on 06/14/18 3:[address] CM ATTEMPTED TO VISIT WITH PATIENT CURRENTLY ON VENT. NO FAMILY AVAILABLE DCPIA - Discharge Planning Initial Assessment Updated by [id number]: Rahelally Uriostegui on 06/24/18 1:10 pm * Is the patient Alert and Oriented? Yes * PCP MILO * [facility] * Preadmission Environment Home with Family * ADLs Independent * Equipment Cane Nebulizer Oxygen Walker * List name and contact numbers for known caregivers / representatives who currently or will assist patient after discharge: ALMA ALVAREZ, DAUGHTER, * Community resources currently utilized None * Additional services required to return to the preadmission environment? Yes * Can the patient safely return to the preadmission environment? Yes * Has this patient been hospitalized within the prior 30 days at any hospital? Yes External Providers External Provider: [facility] Next Contact Date: Service Request Date: Service Type: Resolution: Reviewer: Comments: Coverage Notice Reviewer: [email or web address] Bayron Uriostegui Notice Issued Date-Time: 06/24/2018 11:40 Notice Type: IM Discharge Notice Notice Delivered To: Patient Relationship to Patient: Self Councilperson Name: Delivery Method: HAND - Hand Delivered Adrianne Days: Prior Verbal Notification: Recipient Understood Notice: Yes Recipient Signature: Yes Med Rec Note Co-signed by Attending: Coverage Notice Comment: Last DP export: 07/17/18 10:29 Patient Name: DOUGLAS HILLS Page [phone] at 1138 All edits/amendments must be made on the electronic document DICTATION DATE: 07/17/181136 BRONZER: CLEMENT 07/17/181136 RPT#: [id number] DC DATE: STATUS: ADM IN [facility] [address] [place] [address] END OF REPORT
--- NOTE | ~2018-06-11 | EC ---
PATIENT:DOUGLAS HILLS DATE OF SERVICE: 06/11/18 SEX: F MEDICAL RECORD: [id number] DATE OF : [birth year] LOCATION:D.[facility] AGE OF PATIENT: 52 ADMISSION DATE: 06/11/18 REFERRING PHYSICIAN: INTERPRETING PHYSICIAN: DOTTIE GARG MD ECHOCARDIOGRAM REPORT ECHO CHARGES 5 ECHO LIMITED Date: 07/14/18 CLINICAL DIAGNOSIS: R/O VEGETATION ECHOCARDIOGRAPHIC MEASUREMENTS (adult normal given) AC root (d.<3.7cm) 0 cm LV Septum d (<1.2 cm> 0 cm Valve Excursion 0 cm LV Septum (systole) 0 cm Left Atria (s.<4.0cm> 0 cm LVPW d(<1.2cm) 0 cm RV (d.<2.3cm) 0 cm LVPW (sytole) 0 cm LV diastole(<5.6CM) 0 cm MV E-F(>70mm/sec) 0 cm LV systole 0 cm LVOT Diameter 0 cm MV exc.(>10mm) 0 cm Est.ejection fraction (50-75%) 0 % DOPPLER: LVIT 0 cm/sec A 0 cm/sec E 0 cm/sec LA 0 cm/sec RVSP 0 mmHg LVOT 0 cm/sec AOP1/2T 0 m/s Asc. Ao 0 cm/sec RVOT 0 cm/sec RA 0 cm/sec PA 0 cm/sec AV Gradient Peak 0 mmHg AV Mean 0 mmHg AV Area 0 cm MV Gradient Peak 0 mmHg MV Mean 0 mmHg MV Area 0 cm COMMENTS: LIMITED STUDY (2-D ONLY) Octave Board Racker: Katherine SERVIN Exercise Specialist: 1 Dr. Garg TAPE# PACS Pericardial Effusion Y DATE OF SERVICE: 07/14/2018 PROCEDURE: Limited echocardiogram. FINDINGS: Evaluate for vegetative endocarditis. No evidence of vegetative endocarditis. Valvular structures have normal structure and motion. TRANSINT:[id number] Voice Confirmation ID: [id number] DOCUMENT ID: [id number] ECHOCARDIOGRAM REPORT [id number] HILLS,WANDA DOTTIE GARG MD at 1457 CC: [id number] DICTATION DATE: 07/15/18 0939 OILER AND GREASER: 07/15/18 0946 DIS IN 07/18/18 [facility] [address] [place] [address]
--- NOTE | ~2018-06-11 | EC ---
PATIENT:DOUGLAS HILLS DATE OF SERVICE: 06/11/18 SEX: F MEDICAL RECORD: [id number] DATE OF : 63 LOCATION:[facility] AGE OF PATIENT: 52 ADMISSION DATE: 06/11/18 REFERRING PHYSICIAN: INTERPRETING PHYSICIAN: CONNOR FAUSTIN MD ECHOCARDIOGRAM REPORT ECHO CHARGES 4 ECHO COMPLETE Date: 07/12/18 CLINICAL DIAGNOSIS: MRSA BACTEREMIA ECHOCARDIOGRAPHIC MEASUREMENTS (adult normal given) AC root (d.<3.7cm) 2.9 cm LV Septum d (<1.2 cm> 1.9 cm Valve Excursion 1.6 cm LV Septum (systole) 2.3 cm Left Atria (s.<4.0cm> 3.2 cm LVPW d(<1.2cm) 1.7 cm RV (d.<2.3cm) 3.0 cm LVPW (sytole) 2.3 cm LV diastole(<5.6CM) 5.2 cm MV E-F(>70mm/sec) cm LV systole 3.3 cm LVOT Diameter 2.1 cm MV exc.(>10mm) cm Est.ejection fraction (50-75%) % DOPPLER: LVIT cm/sec A 109 cm/sec E 91.0 cm/sec LA cm/sec RVSP 23.1 mmHg LVOT 94.0 cm/sec AOP1/2T m/s Asc. Ao 197 cm/sec RVOT 101 cm/sec RA cm/sec PA 136 cm/sec AV Gradient Peak 16.0 mmHg AV Mean 10.0 mmHg AV Area 1.4 cm MV Gradient Peak 5.2 mmHg MV Mean 2.4 mmHg MV Area cm COMMENTS: Manager Quality: Katherine HYLTONOE Masonry Installer: 3 Dr. Em TAPE# PACS Pericardial Effusion Y DATE OF SERVICE: Adequate 2D echo, color flow, spectral Doppler, and M-mode. LVH present. LV internal dimension is normal. Wall motion is normal. EF is greater than or equal to 55%. Aortic valve is tricuspid. No evidence of stenosis by Doppler interrogation. Left atrium is normal at 3.2 cm. Mitral valve shows no prolapse. Trace MR. Right-sided chamber is grossly normal. Trace TR. TRANSINT:[id number] Voice Confirmation ID: [id number] DOCUMENT ID: [id number] ECHOCARDIOGRAM REPORT [id number] DOUGLAS IHLLS GREGORY A MD CC: [id number] DICTATION DATE: 07/12/18 1226 CIRCUIT CLERK: 07/12/18 1458 ADM IN [place] [id number] [place] [id number]
--- NOTE | ~2018-06-11 | MORECARE ---
CASE MANAGEMENT DISCHARGE SUMMARY PATIENT: DOUGLAS HILLS UNIT: [id number] ADM DATE: 06/11/18 AGE: 52 : 63 SEX: F ROOM/BED: D.1212 AUTHOR: FROILAN,DOC PHYSICIAN: REFERRING PHYSICIAN: CHARLIE HARO MD DATE OF SERVICE: 07/02/18 Discharge Plan Patient Name: DOUGLAS HILLS Facility: [facility]:[place] : 1965 Planned Disposition: Anticipated Discharge Date: 06/24/18 Discharge Date: Expected LOS: 13 Initial Reviewer: [email or web address] Initial Review Date: 06/22/2018 Generated: 07/02/18 2:12 pm Comments DCP- Discharge Planning Updated by [email or web address]: Marycruz Webb on 07/01/18 7:[address] PHYSICAL THERAPY SIGNED OFF 06/27 PATIENT AMBULATED 100 FT W/ 20% ASSIST WITH WHEELED WALKER. HAD OT EVAL 06/24. PATIENT NOT MEETING CRITERIA FOR ACUTE REHAB. PATIENT FEELS SHE WOULD LIKE TO PLAN FOR HOME WITH HOME CARE PARTICULARLY [employer].. SHE IS VERY CONCERNEDODAY SHE IS "COUGHING BLOOD" TODAY. CAT OF CHEST PLANNED FOR TODAY. AWAIT RESULTS AND MD PLAN. CM FOLLOWING TO ASSIST. DCP- Discharge Planning Updated by [id number]: Rahel Uriostegui on 06/24/18 1:[address] Patient Name: DOUGLAS HILLS Admission Status: ER Accout number: [id number] Admission Date: 06-11-2018 : 1965 Admission Diagnosis:ACUTE AND CHRONIC RESPIRATORY FAILURE WITH HYPOXIA Attending: CHARLIE HARO Current LOS: 13 Anticipated DC Date: 06-24-2018 Planned Disposition: Primary Insurance: [facility] MEDICARE SOLUTIONS Discharge Planning Comments: CM MET WITH PATIENT ABOUT DC PLANNING/NEEDS. STATES PLANS TO GO TO INPATIENT REHAB HERE AND THEN TO HOME. STATES USES A WALKER AT HOME. DENIES ANY NEEDS AT THIS TIME. CM WILL FOLLOW AND ASSIST NEEDED WITH DC PLANNING/NEEDS. IMM SIGNED. Perch Machine Inspector: Rahel Uriostegui DCP- Discharge Planning Updated by [email or web address]: Ginny Saavedra on 06/14/18 3:[address] CM ATTEMPTED TO VISIT WITH PATIENT CURRENTLY ON VENT. NO FAMILY AVAILABLE DCPIA - Discharge Planning Initial Assessment Updated by [email or web address]: Rahel Uriostegui on 06/24/18 1:10 pm * Is the patient Alert and Oriented? Yes * PCP MILO * [facility]acy [facility] * Preadmission Environment Home with Family * ADLs Independent * Equipment Cane Nebulizer Oxygen Walker * List name and contact numbers for known caregivers / representatives who currently or will assist patient after discharge: ALMA ALVAREZ, DAUGHTER, * Community resources currently utilized None * Additional services required to return to the preadmission environment? Yes * Can the patient safely return to the preadmission environment? Yes * Has this patient been hospitalized within the prior 30 days at any hospital? Yes Coverage Notice Reviewer: [id number] - Rahel Uriostegui Notice Issued Date-Time: 06/24/2018 11:40 Notice Type: IM Discharge Notice Notice Delivered To: Patient Relationship to Patient: Self Referral Rn Name: Delivery Method: HAND - Hand Delivered Adrianne Days: Prior Verbal Notification: Recipient Understood Notice: Yes Recipient Signature: Yes Med Rec Note Co-signed by Attending: Coverage Notice Comment: Last DP export: 07/01/18 7:39 Patient Name: DOUGLAS HILLS Page 84819 at 1312 All edits/amendments must be made on the electronic document DICTATION DATE: 07/02/18 1312 SALES ENABLEMENT CONSULTANT: CLEMENT 07/02/18 1312 RPT#: [id number] DC DATE: STATUS: ADM IN [facility] [address] [place] [address] END OF REPORT
--- NOTE | ~2018-06-11 | MORECARE ---
CASE MANAGEMENT DISCHARGE SUMMARY PATIENT: DOUGLAS HILLS UNIT: [id number] ADM DATE: 06/11/18 AGE: 52 : 63 SEX: F ROOM/BED: D.1212 AUTHOR: AMELIA MCGOVERN PHYSICIAN: REFERRING PHYSICIAN: CHARLIE HARO MD DATE OF SERVICE: 06/24/18 Discharge Plan Patient Name: DOUGLAS HILLS Facility: [facility] : 1965 Planned Disposition: Anticipated Discharge Date: 06/24/18 Discharge Date: Expected LOS: 13 Initial Reviewer: [email or web address] Initial Review Date: 06/22/2018 Generated: 06/24/18 2:11 pm Comments DCP- Discharge Planning Updated by [email or web address]: Ginny aSavedra on 06/14/18 3:[address] CM ATTEMPTED TO VISIT WITH PATIENT CURRENTLY ON VENT. NO FAMILY AVAILABLE DCPIA - Discharge Planning Initial Assessment Updated by [email or web address]: Rahel Uriostegui on 06/24/18 1:10 pm * Is the patient Alert and Oriented? Yes * PCP MILO * [facility] * Preadmission Environment Home with Family * ADLs Independent * Equipment Cane Nebulizer Oxygen Walker * List name and contact numbers for known caregivers / representatives who currently or will assist patient after discharge: ALMA ALVAREZ, DAUGHTER, * Community resources currently utilized None * Additional services required to return to the preadmission environment? Yes * Can the patient safely return to the preadmission environment? Yes * Has this patient been hospitalized within the prior 30 days at any hospital? Yes Coverage Notice Reviewer: [email or web address] - Rahel Uriostegui Notice Issued Date-Time: 06/24/2018 11:40 Notice Type: IM Discharge Notice Notice Delivered To: Patient Relationship to Patient: Self Sulky Driver Name: Delivery Method: HAND - Hand Delivered Adrianne Days: Prior Verbal Notification: Recipient Understood Notice: Yes Recipient Signature: Yes Med Rec Note Co-signed by Attending: Coverage Notice Comment: Patient Name: DOUGLAS HILLS Page 47579 at 1312 All edits/amendments must be made on the electronic document DICTATION DATE: 06/24/18 1311 BOTTLED BEVERAGE INSPECTOR: CLEMENT 06/24/18 1311 RPT#: [id number] DC DATE: STATUS: ADM IN [facility] [address] [place] [address] END OF REPORT
--- NOTE | ~2018-06-11 | MORECARE ---
CASE MANAGEMENT DISCHARGE SUMMARY PATIENT: DOUGLAS HILLS UNIT: [id number] ADM DATE: 06/11/18 AGE: 52 : 63 SEX: F ROOM/BED: D.1212 AUTHOR: FROILAN,DOC PHYSICIAN: REFERRING PHYSICIAN: CHARLIE HARO MD DATE OF SERVICE: 07/02/18 Discharge Plan Patient Name: DOUGLAS HILLS Facility: [facility]:[place] : 1965 Planned Disposition: Anticipated Discharge Date: 06/24/18 Discharge Date: Expected LOS: 13 Initial Reviewer: [id number] Initial Review Date: 06/22/2018 Generated: 07/02/18 3:05 pm Comments DCP- Discharge Planning Updated by [id number]: Annel De La Rosa on 07/02/18 1:[address] CM received call back from Sara with [facility] regarding patient's Nebulizer. Sara informed CM that she had the replacement Nebulizer ready for delivery. DEJON just needs to call [facility] at [phone] when DC order is entered and [facility] will deliver new Nebulizer to hospital. DCP- Discharge Planning Updated by [id number]: Annel De La Rosa on 07/02/18 12:[address] CM met with patient regarding discharge planning / needs. Patient states her plan is to discharge to home. States she has trilogy with her home O2. States her Nebulizer is broken and she will need it replaced. States she uses [facility]. CM called [facility] and left message for them to return 's call about broken Nebulizer. States her daughter, ALMA ALVAREZ, , will drive her home upon hospital DC. CM attempted to reach Alma but received message that stated her voice mail was full. Will continue to attempt to reach Alma. CM will continue to follow and assist as needed with discharge planning / needs. DCP- Discharge Planning Updated by [id number]: Marycruz Webb on 07/01/18 7:[address] PHYSICAL THERAPY SIGNED OFF 06/27 PATIENT AMBULATED 100 FT W/ 20% ASSIST WITH WHEELED WALKER. HAD OT EVAL 06/24. PATIENT NOT MEETING CRITERIA FOR ACUTE REHAB. PATIENT FEELS SHE WOULD LIKE TO PLAN FOR HOME WITH HOME CARE PARTICULARLY [facility].. SHE IS VERY CONCERNEDODAY SHE IS "COUGHING BLOOD" TODAY. CAT OF CHEST PLANNED FOR TODAY. AWAIT RESULTS AND MD PLAN. CM FOLLOWING TO ASSIST. DCP- Discharge Planning Updated by [id number]: Rahelally Uriostegui on 06/24/18 1:[address] Patient Name: DOUGLAS HILLS Admission Status: ER Accout number: [id number] Admission Date: 06-11-2018 : 1965 Admission Diagnosis:ACUTE AND CHRONIC RESPIRATORY FAILURE WITH HYPOXIA Attending: CHARLIE HARO Current LOS: 13 Anticipated DC Date: 06-24-2018 Planned Disposition: Primary Insurance: [facility] MEDICARE SOLUTIONS Discharge Planning Comments: CM MET WITH PATIENT ABOUT DC PLANNING/NEEDS. STATES PLANS TO GO TO INPATIENT REHAB HERE AND THEN TO HOME. STATES USES A WALKER AT HOME. DENIES ANY NEEDS AT THIS TIME. CM WILL FOLLOW AND ASSIST NEEDED WITH DC PLANNING/NEEDS. IMM SIGNED. Medical Receptionist Medical Assistant: Rahel Uriostegui DCP- Discharge Planning Updated by [email or web address]: Ginny Saavedra on 06/14/18 3:[address] CM ATTEMPTED TO VISIT WITH PATIENT CURRENTLY ON VENT. NO FAMILY AVAILABLE DCPIA - Discharge Planning Initial Assessment Updated by [id number]: Rahel Uriostegui on 06/24/18 1:10 pm * Is the patient Alert and Oriented? Yes * PCP MILO * [facility]acy [facility] * Preadmission Environment Home with Family * ADLs Independent * Equipment Cane Nebulizer Oxygen Walker * List name and contact numbers for known caregivers / representatives who currently or will assist patient after discharge: ALMA ALVAREZ, DAUGHTER, * Community resources currently utilized None * Additional services required to return to the preadmission environment? Yes * Can the patient safely return to the preadmission environment? Yes * Has this patient been hospitalized within the prior 30 days at any hospital? Yes Coverage Notice Reviewer: [id number] - Rahelally Uriostegui Notice Issued Date-Time: 06/24/2018 11:40 Notice Type: IM Discharge Notice Notice Delivered To: Patient Relationship to Patient: Self [place]ck Hammerer Name: Delivery Method: HAND - Hand Delivered Adrianne Days: Prior Verbal Notification: Recipient Understood Notice: Yes Recipient Signature: Yes Med Rec Note Co-signed by Attending: Coverage Notice Comment: Last DP export: 07/02/18 12:22 Patient Name: DOUGLAS HILLS Page 02127 at 1406 All edits/amendments must be made on the electronic document DICTATION DATE: 07/02/181404 FUR CUTTING MACHINE OPERATOR: CLEMENT 07/02/181404 RPT#: [id number] DC DATE: STATUS: ADM IN [facility] [address] [place] [address] END OF REPORT
--- NOTE | ~2018-06-11 | MORECARE ---
CASE MANAGEMENT DISCHARGE SUMMARY PATIENT: DOUGLAS HILLS UNIT: [id number] ADM DATE: 06/11/18 AGE: 52 : 63 SEX: F ROOM/BED: D.1212 AUTHOR: FROILAN,DOC PHYSICIAN: REFERRING PHYSICIAN: CHARLIE HARO MD DATE OF SERVICE: 07/01/18 Discharge Plan Patient Name: DOUGLAS HILLS Facility: [facility]:[place] : 1965 Planned Disposition: Anticipated Discharge Date: 06/24/18 Discharge Date: Expected LOS: 13 Initial Reviewer: [email or web address] Initial Review Date: 06/22/2018 Generated: 07/01/18 9:39 pm Comments DCP- Discharge Planning Updated by [id number]: Marycruz Webb on 07/01/18 7:[address] PHYSICAL THERAPY SIGNED OFF 06/27 PATIENT AMBULATED 100 FT W/ 20% ASSIST WITH WHEELED WALKER. HAD OT EVAL 06/24. PATIENT NOT MEETING CRITERIA FOR ACUTE REHAB. PATIENT FEELS SHE WOULD LIKE TO PLAN FOR HOME WITH HOME CARE PARTICULARLY [facility].. SHE IS VERY CONCERNEDODAY SHE IS "COUGHING BLOOD" TODAY. CAT OF CHEST PLANNED FOR TODAY. AWAIT RESULTS AND MD PLAN. CM FOLLOWING TO ASSIST. DCP- Discharge Planning Updated by [id number]: Rahel Uriostegui on 06/24/18 1:[address] Patient Name: DOUGLAS HILLS Admission Status: ER Accout number: [id number] Admission Date: 06-11-2018 : 1965 Admission Diagnosis:ACUTE AND CHRONIC RESPIRATORY FAILURE WITH HYPOXIA Attending: CHARLIE HARO Current LOS: 13 Anticipated DC Date: 06-24-2018 Planned Disposition: Primary Insurance: [facility] MEDICARE SOLUTIONS Discharge Planning Comments: CM MET WITH PATIENT ABOUT DC PLANNING/NEEDS. STATES PLANS TO GO TO INPATIENT REHAB HERE AND THEN TO HOME. STATES USES A WALKER AT HOME. DENIES ANY NEEDS AT THIS TIME. CM WILL FOLLOW AND ASSIST NEEDED WITH DC PLANNING/NEEDS. IMM SIGNED. Automation Engineer: Rahel Uriostegui DCP- Discharge Planning Updated by [email or web address]: Ginny Saavedra on 06/14/18 3:[address] CM ATTEMPTED TO VISIT WITH PATIENT CURRENTLY ON VENT. NO FAMILY AVAILABLE DCPIA - Discharge Planning Initial Assessment Updated by [id number]: Rahel Uriostegui on 06/24/18 1:10 pm * Is the patient Alert and Oriented? Yes * PCP MILO * [facility]acy [facility] * Preadmission Environment Home with Family * ADLs Independent * Equipment Cane Nebulizer Oxygen Walker * List name and contact numbers for known caregivers / representatives who currently or will assist patient after discharge: ALMA ALVAREZ, DAUGHTER, * Community resources currently utilized None * Additional services required to return to the preadmission environment? Yes * Can the patient safely return to the preadmission environment? Yes * Has this patient been hospitalized within the prior 30 days at any hospital? Yes Coverage Notice Reviewer: [id number] - Rahel Uriostegui Notice Issued Date-Time: 06/24/2018 11:40 Notice Type: IM Discharge Notice Notice Delivered To: Patient Relationship to Patient: Self Mixed Signal Design Engineer Name: Delivery Method: HAND - Hand Delivered Adrianne Days: Prior Verbal Notification: Recipient Understood Notice: Yes Recipient Signature: Yes Med Rec Note Co-signed by Attending: Coverage Notice Comment: Last DP export: 06/24/18 1:13 p Patient Name: DOUGLAS HILLS Page [id number] at 203 All edits/amendments must be made on the electronic document DICTATION DATE: 07/01/182038 WHEELMAN: CLEMENT 07/01/182038 RPT#: [id number] DC DATE: STATUS: ADM IN [facility] [address] [place] [address] END OF REPORT
--- NOTE | ~2018-06-11 | MORECARE ---
CASE MANAGEMENT DISCHARGE SUMMARY PATIENT: DOUGLAS HILLS UNIT: [id number] ADM DATE: 06/11/18 AGE: 52 : 63 SEX: F ROOM/BED: D.2233 AUTHOR: FROILAN,DOC PHYSICIAN: REFERRING PHYSICIAN: CHARLIE HARO MD DATE OF SERVICE: 07/18/18 Discharge Plan Patient Name: DOUGLAS HILLS Facility: [facility]:[place] : 1965 Planned Disposition: Anticipated Discharge Date: 06/24/18 Discharge Date: Expected LOS: 13 Initial Reviewer: [email or web address] Initial Review Date: 06/22/2018 Generated: 07/18/18 10:53 am Comments DCP- Discharge Planning Updated by [id number]: Thelma Yusuf on 07/18/18 8:[address] Holger with [facility] has delivered IV antibiotic to room and did the first teaching with patient. [facility] will begin services this evening. CM will continue to follow and assist with discharge planning/needs. DCP- Discharge Planning Updated by [id number]: Thelma Yusuf on 07/17/18 1:[address] Spoke with patient regarding IV infusion companies. I have not received a quote back from [facility] and [facility] has quoted 100% paid for this year and 183 dollars total for next year antibiotics and supplies. Patient states she has used [facility] in the past and would like to continue to use [facility]. I spoke with [facility] and they are not able to staff for IV antibiotics. Patient states she would like me to use any home health that will accept her and to go by [facility]. I called [facility] and [facility] states they cannot staff until Sunday. I called [facility] and spoke with Radha and they can see her tomorrow. Clinical faxed to [facility]. CM will continue to follow and assist with discharge planning/needs. DCP- Discharge Planning Updated by [id number]: Thelma Yusuf on 07/17/18 10:[address] Called and faxed clinical/order for antibiotic tanner quote to [facility]. CM will continue to follow and assist with discharge planning/needs. DCP- Discharge Planning Updated by [email or web address]: Thelma Yusuf on 07/12/18 1:[address] I called Shaye with [facility] regarding nebulizer, she states she will have a mechanic welder truck driver bring her nebulizer to her today. DCP- Discharge Planning Updated by [id number]: Thelma Yusuf on 07/12/18 12:[address] [facility] has denied ltc placement due to cost. She does not want to go anywhere else at this time. Kyleigh Osorio came in the room when I was talking with her and states she can go home tomorrow. Patient is wanting to go home. MATT for home health given and she chooses [facility]. I called [facility] and faxed clinical and order. CM will continue to follow and assist with discharge planning/needs. DCP- Discharge Planning Updated by [id number]: Thelma Yusuf on 07/12/18 11:[address] Met with patient and informed her that she did not have any skilled therapy days left for skilled therapy per Mary Estrada. She agrees to going to fci care at [facility]. I messaged Mary Estrada to get this process started. Dr. Marsh states she may not go home awaiting fci NH placement. CM will continue to follow and assist with discharge planning/needs. DCP- Discharge Planning Updated by [id number]: Thelma Yusuf on 07/11/18 1:[address] Met with patient in the room to discuss discharge planning. She would like to return to [facility] on discharge. I called Mary Estrada and clinical sent. CM will continue to follow and assist with discharge planning/needs. DCP- Discharge Planning Updated by [id number]: Marycruz Webb on 07/08/18 2:[address] PATIENT SPIKED TEMP 102 WITHIN LAST 24 HRS AND 100.2 TODAY. HER PULSE IS 98- 115 BPM. DEVELOPED RESPIRATORY DISTRESS THIS AFTERNOON. SEEN BY DR MARSH AND DR BRITTON. SHE IS BEING TRANSFERED TO ICU AT THIS TIME. DCP- Discharge Planning Updated by [id number]: Annel De La Rosa on 07/02/18 1:[address] CM received call back from Sara with [facility] regarding patient's Nebulizer. Sara informed CM that she had the replacement Nebulizer ready for delivery. CM just needs to call [facility] at [phone] when DC order is entered and [facility] will deliver new Nebulizer to hospital. DCP- Discharge Planning Updated by [id number]: Annel De La Rosa on 07/02/18 12:[address] CM met with patient regarding discharge planning / needs. Patient states her plan is to discharge to home. States she has trilogy with her home O2. States her Nebulizer is broken and she will need it replaced. States she uses [facility]. CM called [facility] and left message for them to return CM's call about broken Nebulizer. States her daughter, ALMA ALVAREZ, , will drive her home upon hospital DC. CM attempted to reach Alma but received message that stated her voice mail was full. Will continue to attempt to reach Alma. CM will continue to follow and assist as needed with discharge planning / needs. DCP- Discharge Planning Updated by [id number]: Marycruz Webb on 07/01/18 7:[address] PHYSICAL THERAPY SIGNED OFF 06/27 PATIENT AMBULATED 100 FT W/ 20% ASSIST WITH WHEELED WALKER. HAD OT EVAL 06/24. PATIENT NOT MEETING CRITERIA FOR ACUTE REHAB. PATIENT FEELS SHE WOULD LIKE TO PLAN FOR HOME WITH HOME CARE PARTICULARLY [facility] [employer] [facility].. SHE IS VERY CONCERNEDODAY SHE IS "COUGHING BLOOD" TODAY. CAT OF CHEST PLANNED FOR TODAY. AWAIT RESULTS AND MD PLAN. CM FOLLOWING TO ASSIST. DCP- Discharge Planning Updated by [id number]: Rahel Uriostegui on 06/24/18 1:[address] Patient Name: DOUGLAS HILLS Admission Status: ER Accout number: [id number] Admission Date: 06-11-2018 : 1965 Admission Diagnosis:ACUTE AND CHRONIC RESPIRATORY FAILURE WITH HYPOXIA Attending: CHARLIE HARO Current LOS: 13 Anticipated DC Date: 06-24-2018 Planned Disposition: Primary Insurance: [facility] MEDICARE SOLUTIONS Discharge Planning Comments: CM MET WITH PATIENT ABOUT DC PLANNING/NEEDS. STATES PLANS TO GO TO INPATIENT REHAB HERE AND THEN TO HOME. STATES USES A WALKER AT HOME. DENIES ANY NEEDS AT THIS TIME. CM WILL FOLLOW AND ASSIST NEEDED WITH DC PLANNING/NEEDS. IMM SIGNED. Computer Systems Information Director: Rahel Uriostegui DCP- Discharge Planning Updated by [id number]: Ginny Saavedra on 06/14/18 3:[address] CM ATTEMPTED TO VISIT WITH PATIENT CURRENTLY ON VENT. NO FAMILY AVAILABLE DCPIA - Discharge Planning Initial Assessment Updated by [id number]: Rahel Uriostegui on 06/24/18 1:10 pm * Is the patient Alert and Oriented? Yes * PCP MILO * [facility]acy [facility] * Preadmission Environment Home with Family * ADLs Independent * Equipment Cane Nebulizer Oxygen Walker * List name and contact numbers for known caregivers / representatives who currently or will assist patient after discharge: ALMA ALVAREZ, DAUGHTER, * Community resources currently utilized None * Additional services required to return to the preadmission environment? Yes * Can the patient safely return to the preadmission environment? Yes * Has this patient been hospitalized within the prior 30 days at any hospital? Yes Coverage Notice Reviewer: [id number] - Rahel Uriostegui Notice Issued Date-Time: 06/24/2018 11:40 Notice Type: IM Discharge Notice Notice Delivered To: Patient Relationship to Patient: Self Measurer Name: Delivery Method: HAND - Hand Delivered Adrianne Days: Prior Verbal Notification: Recipient Understood Notice: Yes Recipient Signature: Yes Med Rec Note Co-signed by Attending: Coverage Notice Comment: Last DP export: 07/17/18 1:35 Patient Name: DOUGLAS HILLS Page 68455 at 0954 All edits/amendments must be made on the electronic document DICTATION DATE: 07/18/18952 STATOR WINDER: CLEMENT 07/18/18952 RPT#: [id number] DC DATE: STATUS: ADM IN [facility] [address] [place] [address] END OF REPORT
--- NOTE | ~2018-06-11 | MORECARE ---
CASE MANAGEMENT DISCHARGE SUMMARY PATIENT: DOUGLAS HILLS UNIT: [id number] ADM DATE: 06/11/18 AGE: 52 : 63 SEX: F ROOM/BED: D.2233 AUTHOR: FROILAN,DOC PHYSICIAN: REFERRING PHYSICIAN: CHARLIE HARO MD DATE OF SERVICE: 07/12/18 Discharge Plan Patient Name: DOUGLAS HILLS Facility: [facility]:[place] : 1965 Planned Disposition: Anticipated Discharge Date: 06/24/18 Discharge Date: Expected LOS: 13 Initial Reviewer: [email or web address] Initial Review Date: 06/22/2018 Generated: 07/12/18 2:50 pm Comments DCP- Discharge Planning Updated by [email or web address]: Thelma Marinsantiago on 07/12/18 11:[address] Met with patient and informed her that she did not have any skilled therapy days left for skilled therapy per Mary Estrada. She agrees to going to long-term care at [facility]. I messaged Mary Estrada to get this process started. Dr. Marsh states she may not go home awaiting [facility]. CM will continue to follow and assist with discharge planning/needs. DCP- Discharge Planning Updated by [id number]: Thelma Marinsantiago on 07/11/18 1:[address] Met with patient in the room to discuss discharge planning. She would like to return to [facility] on discharge. I called Mary Estrada and clinical sent. CM will continue to follow and assist with discharge planning/needs. DCP- Discharge Planning Updated by [id number]: Marycruz Webb on 07/08/18 2:[address] PATIENT SPIKED TEMP 102 WITHIN LAST 24 HRS AND 100.2 TODAY. HER PULSE IS 98- 115 BPM. DEVELOPED RESPIRATORY DISTRESS THIS AFTERNOON. SEEN BY DR MARSH AND DR BRITTON. SHE IS BEING TRANSFERED TO ICU AT THIS TIME. DCP- Discharge Planning Updated by [email or web address]: Annel De La Rosa on 07/02/18 1:[address] CM received call back from Sara with [facility] regarding patient's Nebulizer. Sara informed CM that she had the replacement Nebulizer ready for delivery. CM just needs to call [facility] at [phone] when DC order is entered and [facility] will deliver new Nebulizer to hospital. DCP- Discharge Planning Updated by [id number]: Annel De La Rosa on 07/02/18 12:[address] CM met with patient regarding discharge planning / needs. Patient states her plan is to discharge to home. States she has trilogy with her home O2. States her Nebulizer is broken and she will need it replaced. States she uses [facility]. CM called [facility] and left message for them to return CM's call about broken Nebulizer. States her daughter, ALMA ALVAREZ, , will drive her home upon hospital DC. CM attempted to reach Alma but received message that stated her voice mail was full. Will continue to attempt to reach Alma. CM will continue to follow and assist as needed with discharge planning / needs. DCP- Discharge Planning Updated by [id number]: Marycruz Webb on 07/01/18 7:[address] PHYSICAL THERAPY SIGNED OFF 06/27 PATIENT AMBULATED 100 FT W/ 20% ASSIST WITH WHEELED WALKER. HAD OT EVAL 06/24. PATIENT NOT MEETING CRITERIA FOR ACUTE REHAB. PATIENT FEELS SHE WOULD LIKE TO PLAN FOR HOME WITH HOME CARE PARTICULARLY [employer] [employer].. SHE IS VERY CONCERNEDODAY SHE IS "COUGHING BLOOD" TODAY. CAT OF CHEST PLANNED FOR TODAY. AWAIT RESULTS AND MD PLAN. CM FOLLOWING TO ASSIST. DCP- Discharge Planning Updated by [id number]: Rahel Uriostegui on 06/24/18 1:[address] Patient Name: DOUGLAS HILLS Admission Status: ER Accout number: [id number] Admission Date: 06-11-2018 : 1965 Admission Diagnosis:ACUTE AND CHRONIC RESPIRATORY FAILURE WITH HYPOXIA Attending: CHARLIE HARO Current LOS: 13 Anticipated DC Date: 06-24-2018 Planned Disposition: Primary Insurance: [facility] MEDICARE SOLUTIONS Discharge Planning Comments: CM MET WITH PATIENT ABOUT DC PLANNING/NEEDS. STATES PLANS TO GO TO INPATIENT REHAB HERE AND THEN TO HOME. STATES USES A WALKER AT HOME. DENIES ANY NEEDS AT THIS TIME. CM WILL FOLLOW AND ASSIST NEEDED WITH DC PLANNING/NEEDS. IMM SIGNED. Waterproofer: Rahel Uriostegui DCP- Discharge Planning Updated by [email or web address]: Ginny Saavedra on 06/14/18 3:[address] CM ATTEMPTED TO VISIT WITH PATIENT CURRENTLY ON VENT. NO FAMILY AVAILABLE DCPIA - Discharge Planning Initial Assessment Updated by [id number]: Rahel Uriostegui on 06/24/18 1:10 pm * Is the patient Alert and Oriented? Yes * PCP MILO * [facility]acy [facility] * Preadmission Environment Home with Family * ADLs Independent * Equipment Cane Nebulizer Oxygen Walker * List name and contact numbers for known caregivers / representatives who currently or will assist patient after discharge: ALMA ALVAREZ, DAUGHTER, * Community resources currently utilized None * Additional services required to return to the preadmission environment? Yes * Can the patient safely return to the preadmission environment? Yes * Has this patient been hospitalized within the prior 30 days at any hospital? Yes External Providers External Provider: [facility] Next Contact Date: Service Request Date: Service Type: Resolution: Reviewer: Comments: Coverage Notice Reviewer: [id number] - Rahel Uriostegui Notice Issued Date-Time: 06/24/2018 11:40 Notice Type: IM Discharge Notice Notice Delivered To: Patient Relationship to Patient: Self Service Advisor Name: Delivery Method: HAND - Hand Delivered Adrianne Days: Prior Verbal Notification: Recipient Understood Notice: Yes Recipient Signature: Yes Med Rec Note Co-signed by Attending: Coverage Notice Comment: Last DP export: 07/12/18 11:50 Patient Name: DOUGLAS HILLS Page [id number] at 1350 All edits/amendments must be made on the electronic document DICTATION DATE: 07/12/18 1350 3RD GRADE READING TEACHER: CLEMENT 07/12/18 1350 RPT#: [id number] DC DATE: STATUS: ADM IN [facility] [address] [place] [address] END OF REPORT
--- NOTE | ~2018-06-11 | MORECARE ---
CASE MANAGEMENT DISCHARGE SUMMARY PATIENT: DOUGLAS HILLS UNIT: [id number] ADM DATE: 06/11/18 AGE: 52 : 63 SEX: F ROOM/BED: D.2233 AUTHOR: FROILAN,DOC PHYSICIAN: REFERRING PHYSICIAN: CHARLIE HARO MD DATE OF SERVICE: 07/17/18 Discharge Plan Patient Name: DOUGLAS HILLS Facility: [facility]:[place] : 1965 Planned Disposition: Anticipated Discharge Date: 06/24/18 Discharge Date: Expected LOS: 13 Initial Reviewer: [id number] Initial Review Date: 06/22/2018 Generated: 07/17/18 3:35 pm Comments DCP- Discharge Planning Updated by [id number]: Thelma Yusuf on 07/17/18 1:[address] Spoke with patient regarding IV infusion companies. I have not received a quote back from [facility] and [facility] has quoted 100% paid for this year and 183 dollars total for next year antibiotics and supplies. Patient states she has used [facility] in the past and would like to continue to use [facility]. I spoke with [facility] and they are not able to staff for IV antibiotics. Patient states she would like me to use any home health that will accept her and to go by the [facility] with [facility]. I called [facility] and Chap[facility]a states they cannot staff until Sunday. I called [facility] and spoke with Radha and they can see her tomorrow. Clinical faxed to [facility]. CM will continue to follow and assist with discharge planning/needs. DCP- Discharge Planning Updated by [email or web address]: Thelma Yusuf on 07/17/18 10:[address] Called and faxed clinical/order for antibiotic tanner quote to [facility] and [facility]. CM will continue to follow and assist with discharge planning/needs. DCP- Discharge Planning Updated by [email or web address]: Thelma Yusuf on 07/12/18 1:[address] I called Shaye with [facility] regarding nebulizer, she states she will have a tractor driver teamster bring her nebulizer to her today. DCP- Discharge Planning Updated by [id number]: Thelma Yusuf on 07/12/18 12:[address] [facility] has denied ltc placement due to cost. She does not want to go anywhere else at this time. Kyleigh Osorio came in the room when I was talking with her and states she can go home tomorrow. Patient is wanting to go home. MATT for home health given and she chooses [facility]. I called [facility] and faxed clinical and order. CM will continue to follow and assist with discharge planning/needs. DCP- Discharge Planning Updated by [id number]: Thelma Marinsantiago on 07/12/18 11:[address] Met with patient and informed her that she did not have any skilled therapy days left for skilled therapy per Mary Estrada. She agrees to going to intermediate frame tender care at [facility]. I messaged Mary Estrada to get this process started. Dr. Marsh states she may not go home awaiting intermediate frame tender NH placement. CM will continue to follow and assist with discharge planning/needs. DCP- Discharge Planning Updated by [id number]: Thelma Marinsantiago on 07/11/18 1:[address] Met with patient in the room to discuss discharge planning. She would like to return to [facility] on discharge. I called Mary Estrada and clinical sent. CM will continue to follow and assist with discharge planning/needs. DCP- Discharge Planning Updated by [id number]: Marycruz Webb on 07/08/18 2:[address] PATIENT SPIKED TEMP 102 WITHIN LAST 24 HRS AND 100.2 TODAY. HER PULSE IS 98- 115 BPM. DEVELOPED RESPIRATORY DISTRESS THIS AFTERNOON. SEEN BY DR MARSH AND DR BRITTON. SHE IS BEING TRANSFERED TO ICU AT THIS TIME. DCP- Discharge Planning Updated by [id number]: Annel De La Rosa on 07/02/18 1:[address] CM received call back from Sara with [facility] regarding patient's Nebulizer. Sara informed CM that she had the replacement Nebulizer ready for delivery. CM just needs to call [facility] at [phone] when DC order is entered and [facility] will deliver new Nebulizer to hospital. DCP- Discharge Planning Updated by [email or web address]: Annel De La Rosa on 07/02/18 12:[address] CM met with patient regarding discharge planning / needs. Patient states her plan is to discharge to home. States she has trilogy with her home O2. States her Nebulizer is broken and she will need it replaced. States she uses [facility]. CM called [facility] and left message for them to return CM's call about broken Nebulizer. States her daughter, ALMA ALVAREZ, , will drive her home upon hospital DC. CM attempted to reach Alma but received message that stated her voice mail was full. Will continue to attempt to reach Alma. CM will continue to follow and assist as needed with discharge planning / needs. DCP- Discharge Planning Updated by [email or web address]: Marycruz Webb on 07/01/18 7:[address] PHYSICAL THERAPY SIGNED OFF 06/27 PATIENT AMBULATED 100 FT W/ 20% ASSIST WITH WHEELED WALKER. HAD OT EVREZA 06/24. PATIENT NOT MEETING CRITERIA FOR ACUTE REHAB. PATIENT FEELS SHE WOULD LIKE TO PLAN FOR HOME WITH HOME CARE PARTICULARLY [facility].. SHE IS VERY CONCERNEDODAY SHE IS "COUGHING BLOOD" TODAY. CAT OF CHEST PLANNED FOR TODAY. AWAIT RESULTS AND MD PLAN. CM FOLLOWING TO ASSIST. DCP- Discharge Planning Updated by [email or web address]: Rahel Uriostegui on 06/24/18 1:[address] Patient Name: DOUGLAS HILLS Admission Status: ER Accout number: [id number] Admission Date: 06-11-2018 : 1965 Admission Diagnosis:ACUTE AND CHRONIC RESPIRATORY FAILURE WITH HYPOXIA Attending: CHARLIE HARO Current LOS: 13 Anticipated DC Date: 06-24-2018 Planned Disposition: Primary Insurance: [facility] MEDIC[facility] SOLUTIONS Discharge Planning Comments: CM MET WITH PATIENT ABOUT DC PLANNING/NEEDS. STATES PLANS TO GO TO INPATIENT REHAB HERE AND THEN TO HOME. [facility] USES A WALKER AT HOME. DENIES ANY NEEDS AT THIS TIME. CM WILL FOLLOW AND ASSIST NEEDED WITH DC PLANNING/NEEDS. IMM SIGNED. Mmi Teacher: Rahel Uriostegui DCP- Discharge Planning Updated by [id number]: Ginny Saavedra on 06/14/18 3:[address] CM ATTEMPTED TO VISIT WITH PATIENT CURRENTLY ON VENT. NO FAMILY AVAILABLE DCPIA - Discharge Planning Initial Assessment Updated by [id number]: Rahel Uriostegui on 06/24/18 1:10 pm * Is the patient Alert and Oriented? Yes * PCP MILO * [facility]acy [facility] * Preadmission Environment Home with Family * ADLs Independent * Equipment Cane Nebulizer Oxygen Walker * List name and contact numbers for known caregivers / representatives who currently or will assist patient after discharge: ALMA ALVAREZ, DAUGHTER, * Community resources currently utilized None * Additional services required to return to the preadmission environment? Yes * Can the patient safely return to the preadmission environment? Yes * Has this patient been hospitalized within the prior 30 days at any hospital? Yes Coverage Notice Reviewer: [id number] Bayron Uriostegui Notice Issued Date-Time: 06/24/2018 11:40 Notice Type: IM Discharge Notice Notice Delivered To: Patient Relationship to Patient: Self Front Desk Lead Name: Delivery Method: HAND - Hand Delivered Adrianne Days: Prior Verbal Notification: Recipient Understood Notice: Yes Recipient Signature: Yes Med Rec Note Co-signed by Attending: Coverage Notice Comment: Last DP export: 07/17/18 1:28 Patient Name: DOUGLAS HILLS Page [id number] at 1435 All edits/amendments must be made on the electronic document DICTATION DATE: 07/17/18 1434 CAR UNLOADER: CLEMENT 07/17/18 1434 RPT#: [id number] DC DATE: STATUS: ADM IN [facility] [address] [place] [address] END OF REPORT
--- NOTE | ~2018-06-11 | MORECARE ---
CASE MANAGEMENT DISCHARGE SUMMARY PATIENT: DOUGLAS HILLS UNIT: [id number] ADM DATE: 06/11/18 AGE: 52 : 63 SEX: F ROOM/BED: D.2233 AUTHOR: FROILAN,DOC PHYSICIAN: REFERRING PHYSICIAN: CHARLIE HARO MD DATE OF SERVICE: 07/17/18 Discharge Plan Patient Name: DOUGLAS HILLS Facility: [facility]:[place] : 1965 Planned Disposition: Anticipated Discharge Date: 06/24/18 Discharge Date: Expected LOS: 13 Initial Reviewer: [id number] Initial Review Date: 06/22/2018 Generated: 07/17/18 3:27 pm Comments DCP- Discharge Planning Updated by [id number]: Thelma Madelin on 07/17/18 10:[address] Called and faxed clinical/order for antibiotic tanner quote to [facility] and [facility]. CM will continue to follow and assist with discharge planning/needs. DCP- Discharge Planning Updated by [id number]: Thelma Madelin on 07/12/18 1:[address] I called Shaye with [facility] regarding nebulizer, she states she will have a city bus driver bring her nebulizer to her today. DCP- Discharge Planning Updated by [id number]: Thelma Madelin on 07/12/18 12:[address] [facility] has denied ltc placement due to cost. She does not want to go anywhere else at this time. Kyleigh Osorio came in the room when I was talking with her and states she can go home tomorrow. Patient is wanting to go home. MATT for home health given and she chooses [facility]. I called [facility] and faxed clinical and order. CM will continue to follow and assist with discharge planning/needs. DCP- Discharge Planning Updated by [id number]: Thelma Madelin on 07/12/18 11:[address] Met with patient and informed her that she did not have any skilled therapy days left for skilled therapy per Mary Estrada. She agrees to going to bed bug exterminator care at [facility]. I messaged Mary Estrada to get this process started. Dr. Marsh states she may not go home awaiting bed bug exterminator NH placement. CM will continue to follow and assist with discharge planning/needs. DCP- Discharge Planning Updated by [id number]: Thelma Yusuf on 07/11/18 1:[address] Met with patient in the room to discuss discharge planning. She would like to return to [facility] on discharge. I called Mary Estrada and clinical sent. CM will continue to follow and assist with discharge planning/needs. DCP- Discharge Planning Updated by [id number]: Marycruz Webb on 07/08/18 2:[address] PATIENT SPIKED TEMP 102 WITHIN LAST 24 HRS AND 100.2 TODAY. HER PULSE IS 98- 115 BPM. DEVELOPED RESPIRATORY DISTRESS THIS AFTERNOON. SEEN BY DR MARSH AND DR BRITTON. SHE IS BEING TRANSFERED TO ICU AT THIS TIME. DCP- Discharge Planning Updated by [id number]: Annel De La Rosa on 07/02/18 1:[address] CM received call back from Sara with [facility] regarding patient's Nebulizer. Sara informed CM that she had the replacement Nebulizer ready for delivery. CM just needs to call [facility] at [phone] when DC order is entered and [facility] will deliver new Nebulizer to hospital. DCP- Discharge Planning Updated by [id number]: Annel De La Rosa on 07/02/18 12:[address] CM met with patient regarding discharge planning / needs. Patient states her plan is to discharge to home. States she has trilogy with her home O2. States her Nebulizer is broken and she will need it replaced. States she uses [facility]. CM called [facility] and left message for them to return CM's call about broken Nebulizer. States her daughter, ALMA ALVAREZ, , will drive her home upon hospital DC. CM attempted to reach Alma but received message that stated her voice mail was full. Will continue to attempt to reach Alma. CM will continue to follow and assist as needed with discharge planning / needs. DCP- Discharge Planning Updated by [email or web address]: Marycruz Wbeb on 07/01/18 7:[address] PHYSICAL THERAPY SIGNED OFF 06/27 PATIENT AMBULATED 100 FT W/ 20% ASSIST WITH WHEELED WALKER. HAD OT EVAL 06/24. PATIENT NOT MEETING CRITERIA FOR ACUTE REHAB. PATIENT FEELS SHE WOULD LIKE TO PLAN FOR HOME WITH HOME CARE PARTICULARLY [facility].. SHE IS VERY CONCERNEDODAY SHE IS "COUGHING BLOOD" TODAY. CAT OF CHEST PLANNED FOR TODAY. AWAIT RESULTS AND MD PLAN. CM FOLLOWING TO ASSIST. DCP- Discharge Planning Updated by [id number]: Rahel Gila on 06/24/18 1:[address] Patient Name: DOUGLAS HILLS Admission Status: ER Accout number: [id number] Admission Date: 06-11-2018 : 1965 Admission Diagnosis:ACUTE AND CHRONIC RESPIRATORY FAILURE WITH HYPOXIA Attending: CHARLIE HARO Current LOS: 13 Anticipated DC Date: 06-24-2018 Planned Disposition: Primary Insurance: [facility] MEDICARE SOLUTIONS Discharge Planning Comments: CM MET WITH PATIENT ABOUT DC PLANNING/NEEDS. STATES PLANS TO GO TO INPATIENT REHAB HERE AND THEN TO HOME. STATES USES A WALKER AT HOME. DENIES ANY NEEDS AT THIS TIME. CM WILL FOLLOW AND ASSIST NEEDED WITH DC PLANNING/NEEDS. IMM SIGNED. Post Graduate Intern: Rahel Uriostegui DCP- Discharge Planning Updated by [id number]: Ginny Saavedra on 06/14/18 3:[address] CM ATTEMPTED TO VISIT WITH PATIENT CURRENTLY ON VENT. NO FAMILY AVAILABLE DCPIA - Discharge Planning Initial Assessment Updated by [id number]: Rahel Uriostegui on 06/24/18 1:10 pm * Is the patient Alert and Oriented? Yes * PCP MILO * [facility] * Preadmission Environment Home with Family * ADLs Independent * Equipment Cane Nebulizer Oxygen Walker * List name and contact numbers for known caregivers / representatives who currently or will assist patient after discharge: ALMA ALVAREZ, DAUGHTER, * Community resources currently utilized None * Additional services required to return to the preadmission environment? Yes * Can the patient safely return to the preadmission environment? Yes * Has this patient been hospitalized within the prior 30 days at any hospital? Yes External Providers External Provider: [facility] Next Contact Date: Service Request Date: Service Type: Resolution: Reviewer: Comments: Coverage Notice Reviewer: [id number] Bayron Uriostegui Notice Issued Date-Time: 06/24/2018 11:40 Notice Type: IM Discharge Notice Notice Delivered To: Patient Relationship to Patient: Self Swine Extension Field Specialist Name: Delivery Method: HAND - Hand Delivered Adrianne Days: Prior Verbal Notification: Recipient Understood Notice: Yes Recipient Signature: Yes Med Rec Note Co-signed by Attending: Coverage Notice Comment: Last DP export: 07/17/18 10:38 Patient Name: DOUGLAS HILLS Page [id number] at 1428 All edits/amendments must be made on the electronic document DICTATION DATE: 07/17/181426 COATER SMOKING PIPE: CLEMENT 07/17/181426 RPT#: [id number] DC DATE: STATUS: ADM IN [facility] [address] [place] [address] END OF REPORT
--- NOTE | ~2018-06-11 | OP ---
PATIENT NAME: ODUGLAS HILLS MEDICAL RECORD: [id number] :[birth year] LOCATION[facility] D.2304 ADMISSION DATE:06/11/18 SURGEON: SANJEEV FERRIS MD DATE OF OPERATION: 06/12/2018 PREOPERATIVE DIAGNOSES: 1. Respiratory failure. 2. Pneumonia. 3. Morbid obesity. 4. Lack of adequate peripheral IV access. POSTOPERATIVE DIAGNOSES: 1. Respiratory failure. 2. Pneumonia. 3. Morbid obesity. 4. Lack of adequate peripheral IV access. PROCEDURE: Insertion of left neck triple lumen central venous catheter. SURGEON: Sanjeev Ferris MD LIABILITY CLAIMS REPRESENTATIVE: None. BLOOD LOSS: Minimal. ANESTHESIA: Local. COMPLICATIONS: None. The risks, possible complications and alternatives to procedure were explained to the patient's family. They elected to proceed. OPERATIVE COURSE: The entire procedure was performed in the presence of a female nurse. The left neck was sterilely prepped and draped. Local anesthetic was used to infiltrate the skin and subcutaneous tissues at the base of the left neck. The left subclavian vein was percutaneously accessed in an antegrade fashion utilizing a supraclavicular technique. A guidewire passed easily. A small skin marcel was accomplished. A vessel dilator was used to dilate the subcutaneous tract. A 16-cm triple lumen central venous catheter was inserted to the hub. It was sutured in place times 3. All lumens flushed easily and aspirated dark, nonpulsatile blood. A stat portable chest x-ray is pending. TRANSINT:[id number] Voice Confirmation ID: [id number] DOCUMENT ID: [id number] SANJEEV FERRIS MD at 1653 CC: [id number] DICTATION DATE: 06/12/18 1250 LANDING SIGNAL OFFICER: 06/12/18 1314 ADM IN [place] [address] [place] [address]
--- NOTE | ~2018-06-11 | MORECARE ---
CASE MANAGEMENT DISCHARGE SUMMARY PATIENT: DOUGLAS HILLS UNIT: [id number] ADM DATE: 06/11/18 AGE: 52 : 63 SEX: F ROOM/BED: D.2233 AUTHOR: FROILAN,DOC PHYSICIAN: REFERRING PHYSICIAN: CHARLIE HARO MD DATE OF SERVICE: 07/17/18 Discharge Plan Patient Name: DOUGLAS HILLS Facility: [facility]:[place] : 1965 Planned Disposition: Anticipated Discharge Date: 06/24/18 Discharge Date: Expected LOS: 13 Initial Reviewer: [id number] Initial Review Date: 06/22/2018 Generated: 07/17/18 12:29 pm Comments DCP- Discharge Planning Updated by [id number]: Thelma Yusuf on 07/12/18 1:[address] I called Shaye with [facility] regarding nebulizer, she states she will have a fast food delivery driver bring her nebulizer to her today. DCP- Discharge Planning Updated by [id number]: Thelma Madelin on 07/12/18 12:[address] [facility] has denied ltc placement due to cost. She does not want to go anywhere else at this time. Kyleigh Osorio came in the room when I was talking with her and states she can go home tomorrow. Patient is wanting to go home. MATT for home health given and she chooses [place]. I called [facility] and faxed clinical and order. CM will continue to follow and assist with discharge planning/needs. DCP- Discharge Planning Updated by [id number]: Thelma Yusuf on 07/12/18 11:[address] Met with patient and informed her that she did not have any skilled therapy days left for skilled therapy per Mary Estrada. She agrees to going to care home care at [facility]. I messaged Mary Estrada to get this process started. Dr. Marsh states she may not go home awaiting manager intermediate NH placement. CM will continue to follow and assist with discharge planning/needs. DCP- Discharge Planning Updated by [id number]: Thelma Yusuf on 07/11/18 1:[address] Met with patient in the room to discuss discharge planning. She would like to return to [facility] on discharge. I called Mary Estrada and clinical sent. CM will continue to follow and assist with discharge planning/needs. DCP- Discharge Planning Updated by [id number]: Marycruz Webb on 07/08/18 2:[address] PATIENT SPIKED TEMP 102 WITHIN LAST 24 HRS AND 100.2 TODAY. HER PULSE IS 98- 115 BPM. DEVELOPED RESPIRATORY DISTRESS THIS AFTERNOON. SEEN BY DR MARSH AND DR BRITTON. SHE IS BEING TRANSFERED TO ICU AT THIS TIME. DCP- Discharge Planning Updated by [id number]: Annel De La Rosa on 07/02/18 1:[address] CM [facility]. Sara informed CM that she had the replacement Nebulizer ready for delivery. CM just needs to call [facility] at [phone] when DC order is entered and [facility] will deliver new Nebulizer to hospital. DCP- Discharge Planning Updated by [id number]: Annel De La Rosa on 07/02/18 12:[address] CM met with patient regarding discharge planning / needs. Patient states her plan is to discharge to home. States she has trilogy with her home O2. States her Nebulizer is broken and she will need it replaced. States she uses [facility]. CM called [facility] and left message for them to return CM's call about broken Nebulizer. States her daughter, ALMA ALVAREZ, , will drive her home upon hospital DC. CM attempted to reach Alma but received message that stated her voice mail was full. Will continue to attempt to reach Alma. CM will continue to follow and assist as needed with discharge planning / needs. DCP- Discharge Planning Updated by [id number]: Marycruz Webb on 07/01/18 7:[address] PHYSICAL THERAPY SIGNED OFF 06/27 PATIENT AMBULATED 100 FT W/ 20% ASSIST WITH WHEELED WALKER. HAD OT EVAL 06/24. PATIENT NOT MEETING CRITERIA FOR ACUTE REHAB. PATIENT FEELS SHE WOULD LIKE TO PLAN FOR HOME WITH HOME CARE PARTICULARLY [facility].. SHE IS VERY CONCERNEDODAY SHE IS "COUGHING BLOOD" TODAY. CAT OF CHEST PLANNED FOR TODAY. AWAIT RESULTS AND MD PLAN. CM FOLLOWING TO ASSIST. DCP- Discharge Planning Updated by [id number]: Rahel Uriostegui on 06/24/18 1:[address] Patient Name: DOUGLAS HILLS Admission Status: ER Accout number: [id number] Admission Date: 06-11-2018 : 1965 Admission Diagnosis:ACUTE AND CHRONIC RESPIRATORY FAILURE WITH HYPOXIA Attending: CHARLIE HARO Current LOS: 13 Anticipated DC Date: 06-24-2018 Planned Disposition: Primary Insurance: [facility] MEDICARE SOLUTIONS Discharge Planning Comments: CM MET WITH PATIENT ABOUT DC PLANNING/NEEDS. STATES PLANS TO GO TO INPATIENT REHAB HERE AND THEN TO HOME. STATES USES A WALKER AT HOME. DENIES ANY NEEDS AT THIS TIME. CM WILL FOLLOW AND ASSIST NEEDED WITH DC PLANNING/NEEDS. IMM SIGNED. Assessment Nurse: Rahel Uriostegui DCP- Discharge Planning Updated by [id number]: Ginny Saavedra on 06/14/18 3:[address] CM ATTEMPTED TO VISIT WITH PATIENT CURRENTLY ON VENT. NO FAMILY AVAILABLE DCPIA - Discharge Planning Initial Assessment Updated by [id number]: Rahel Uriostegui on 06/24/18 1:10 pm * Is the patient Alert and Oriented? Yes * PCP MILO * [facility]acy [facility] * Preadmission Environment Home with Family * ADLs Independent * Equipment Cane Nebulizer Oxygen Walker * List name and contact numbers for known caregivers / representatives who currently or will assist patient after discharge: ALMA ALVAREZ, DAUGHTER, * Community resources currently utilized None * Additional services required to return to the preadmission environment? Yes * Can the patient safely return to the preadmission environment? Yes * Has this patient been hospitalized within the prior 30 days at any hospital? Yes External Providers [facility] Next Contact Date: Service Request Date: Service Type: Resolution: Reviewer: Comments: External Provider: [facility] Next Contact Date: Service Request Date: Service Type: Resolution: Reviewer: Comments: Coverage Notice Reviewer: [id number] - Rahel Uriostegui Notice Issued Date-Time: 06/24/2018 11:40 Notice Type: IM Discharge Notice Notice Delivered To: Patient Relationship to Patient: Self Manager Financial Reporting Name: Delivery Method: HAND - Hand Delivered Adrianne Days: Prior Verbal Notification: Recipient Understood Notice: Yes Recipient Signature: Yes Med Rec Note Co-signed by Attending: Coverage Notice Comment: Last DP export: 07/12/18 1:43 Patient Name: DOUGLAS HILLS Page [phone] at 1129 All edits/amendments must be made on the electronic document DICTATION DATE: 07/17/181127 MECHANICAL TEST TECHNICIAN: CLEMENT 07/17/181127 RPT#: [id number] DC DATE: STATUS: ADM IN [facility] [address] [place] [address] END OF REPORT
--- NOTE | ~2018-06-11 | MORECARE ---
CASE MANAGEMENT DISCHARGE SUMMARY PATIENT: DOUGLAS HILLS UNIT: [id number] ADM DATE: 06/11/18 AGE: 52 : 63 SEX: F ROOM/BED: D.1212 AUTHOR: FROILANDOC PHYSICIAN: REFERRING PHYSICIAN: CHARLIE HARO MD DATE OF SERVICE: 07/08/18 Discharge Plan Patient Name: DOUGLAS HILLS Facility: [facility]:[place] : 1965 Planned Disposition: Anticipated Discharge Date: 06/24/18 Discharge Date: Expected LOS: 13 Initial Reviewer: [email or web address] Initial Review Date: 06/22/2018 Generated: 07/08/18 5:00 pm Comments DCP- Discharge Planning Updated by [email or web address]: Marycruz Connors on 07/08/18 2:[address] PATIENT SPIKED TEMP 102 WITHIN LAST 24 HRS AND 100.2 TODAY. HER PULSE IS 98- 115 BPM. DEVELOPED RESPIRATORY DISTRESS THIS AFTERNOON. SEEN BY DR ANGELES AND DR BRITTON. SHE IS BEING TRANSFERED TO ICU AT THIS TIME. DCP- Discharge Planning Updated by [email or web address]: Annel De La Rosa on 07/02/18 1:[address] CM received call back from Sara with [facility] regarding patient's Nebulizer. Sara informed CM that she had the replacement Nebulizer ready for delivery. DEJON just needs to call [facility] at [phone] when DC order is entered and [facility] will deliver new Nebulizer to hospital. DCP- Discharge Planning Updated by [email or web address]: Annel De La Rosa on 07/02/18 12:[address] CM met with patient regarding discharge planning / needs. Patient states her plan is to discharge to home. States she has trilogy with her home O2. States her Nebulizer is broken and she will need it replaced. States she uses [facility]. CM called [facility] and left message for them to return CM's call about broken Nebulizer. States her daughter, ALMA ALVAREZ, , will drive her home upon hospital DC. CM attempted to reach Alma but received message that stated her voice mail was full. Will continue to attempt to reach Alma. CM will continue to follow and assist as needed with discharge planning / needs. DCP- Discharge Planning Updated by [email or web address]: Marycruz Webb on 07/01/18 7:[address] PHYSICAL THERAPY SIGNED OFF 06/27 PATIENT AMBULATED 100 FT W/ 20% ASSIST WITH WHEELED WALKER. HAD OT [facility] 06/24. PATIENT NOT MEETING CRITERIA FOR ACUTE REHAB. PATIENT FEELS SHE WOULD LIKE TO PLAN FOR HOME WITH HOME CARE PARTICULARLY [facility].. SHE IS VERY CONCERNEDODAY SHE IS "COUGHING BLOOD" TODAY. CAT OF CHEST PLANNED FOR TODAY. AWAIT RESULTS AND MD PLAN. CM FOLLOWING TO ASSIST. DCP- Discharge Planning Updated by [email or web address]: Rahel Uriostegui on 06/24/18 1:[address] Patient Name: DOUGLAS HILLS Admission Status: ER Accout number: [id number] Admission Date: 06-11-2018 : 1965 Admission Diagnosis:ACUTE AND CHRONIC RESPIRATORY FAILURE WITH HYPOXIA Attending: CHARLIE HARO Current LOS: 13 Anticipated DC Date: 06-24-2018 Planned Disposition: Primary Insurance: [facility] MEDICARE SOLUTIONS Discharge Planning Comments: CM MET WITH PATIENT ABOUT DC PLANNING/NEEDS. STATES PLANS TO GO TO INPATIENT REHAB HERE AND THEN TO HOME. [facility] USES A WALKER AT HOME. DENIES ANY NEEDS AT THIS TIME. CM WILL FOLLOW AND ASSIST NEEDED WITH DC PLANNING/NEEDS. IMM SIGNED. Transit Worker: Rahel Uriostegui DCP- Discharge Planning Updated by [email or web address]: Ginny Saavedra on 06/14/18 3:[address] CM ATTEMPTED TO VISIT WITH PATIENT CURRENTLY ON VENT. NO FAMILY AVAILABLE DCPIA - Discharge Planning Initial Assessment Updated by [email or web address]: Rahel Uriostegui on 06/24/18 1:10 pm * Is the patient Alert and Oriented? Yes * PCP MILO * Pharmacy [facility] * Preadmission Environment Home with Family * ADLs Independent * Equipment Cane Nebulizer Oxygen Walker * List name and contact numbers for known caregivers / representatives who currently or will assist patient after discharge: ALMA ALVAREZ, DAUGHTER, * Community resources currently utilized None * Additional services required to return to the preadmission environment? Yes * Can the patient safely return to the preadmission environment? Yes * Has this patient been hospitalized within the prior 30 days at any hospital? Yes Coverage Notice Reviewer: [id number] - Rahel Uriostegui Notice Issued Date-Time: 06/24/2018 11:40 Notice Type: IM Discharge Notice Notice Delivered To: Patient Relationship to Patient: Self Regulatory Scientist Name: Delivery Method: HAND - Hand Delivered Adrianne Days: Prior Verbal Notification: Recipient Understood Notice: Yes Recipient Signature: Yes Med Rec Note Co-signed by Attending: Coverage Notice Comment: Last DP export: 07/02/18 1:56 Patient Name: DOUGLAS HILLS Page [id number] at 1600 All edits/amendments must be made on the electronic document DICTATION DATE: 07/08/181558 MOLDER PUNCH: CLEMENT 07/08/181558 RPT#: [id number] GA DATE: STATUS: ADM IN [facility] [address] [place] [address] END OF REPORT
--- NOTE | ~2018-06-11 | OP ---
PATIENT NAME: DOUGLAS HILLS MEDICAL RECORD: [id number] :63 LOCATION:D.MS [id number] ADMISSION DATE:06/11/18 SURGEON: ALIZE LAMB MD DATE OF OPERATION: 07/04/2018 PROCEDURE: Fiberoptic bronchoscopy. INDICATION: Ms. Hills is a 52-year-old female who has hemoptysis for the last few days. The hemoptysis was not improving. She underwent fiberoptic bronchoscopy to inspect the airway as well as to obtain specimen for culture and sensitivity. MEDICATIONS: Versed 3 mg IV in divided doses, fentanyl 50 mcg IV times 1, atropine 0.5 mg IV times 1. PROCEDURE IN DETAIL: The fiberoptic bronchoscope was easily passed through the mouth. The epiglottis was normal. The vocal cords were normal, moving equally on phonation. At the main trachea, there were severe ulcerative lesion and thick yellowish secretion in the main trachea. There was no bleeding seen throughout the upper airway and in the trachea. The ricky was sharp. The right main bronchus subsegment to the right upper lobe, right middle lobe, right lower lobe within normal range. No endobronchial lesion was seen. No bleeding was seen. The left main bronchus was normal. The subsegment to the left upper lobe, lingula, left lower lobe within normal range. No endobronchial lesion was seen. No bleeding was seen. Specimen washing was obtained and sent for routine culture and sensitivity, AFB and fungus and cytology. Overall, the patient tolerated the procedure very well. There was no bleeding seen. We will consult Dr. Raman, ENT. TRANSINT:[id number] Voice Confirmation ID: [id number] DOCUMENT ID: [id number] ALIZE LAMB MD at 1507 CC: [id number] DICTATION DATE: 07/04/18 1259 CARPET RENOVATOR: 07/04/18 1647 DIS IN 07/18/18 [id number] [place] [address]
[~2018-06-11 12:13] MED LIST changes: +CELEXA20 MG PO; +DESERYL50 M2 PO; +PRAVACHOL20 MG PO
[2018-06-11 12:47] LABS: APTT 27.7 SECONDS (22.8-39.4); INR 0.95 (0.85-1.17); PROTIME 12.3 SECONDS (11.6-15.0)
[2018-06-11 12:49] LABS: ALBUMIN 2.8 g/dL (3.4-5.0); ALKALINE PHOSPHATASE 99 U/L (46-116); ALT (SGPT) 27 U/L (10-68); BILIRUBIN - TOTAL 0.66 mg/dL (0.2-1.3); CALCIUM 8.3 mg/dL (8.5-10.1); CHLORIDE - SERUM 98 mmol/L (98-107); CREATININE - SERUM 0.7 mg/dL (0.6-1.3); POTASSIUM - SERUM 4.2 mmol/L (3.5-5.1); PROTEIN - SERUM 7.3 g/dL (6.4-8.2); SODIUM 140 mmol/L (136-145); UREA NITROGEN 13 mg/dL (7-18); eGFR NON AFRICAN AMERICAN > 90 mL/min (90-120)
[2018-06-11 12:54] LABS: BASOPHILS 0.1 % (0-2); EOSINOPHILS 2.6 % (0-7); HEMATOCRIT 33.8 % (36.0-48.0); HEMOGLOBIN 9.5 g/dL (12-16); IMMATURE GRANULOCYTES 0.9 % (0-5); LYMPHOCYTES 14.4 % (15-50); MCH 25.5 pg (26.0-34.0); MCHC 28.1 g/dL (31.0-37.0); MCV 90.9 fL (80.0-100.0); MONOCYTES 5.8 % (2-11); NEUTROPHILS 76.2 % (40-80); RBC 3.72 10x6/uL (4.00-5.40); RDW 15.9 % (11.5-14.5); WBC 19.2 10x3/uL (4.8-10.8)
[2018-06-11 13:00] LABS: CKMB 0.9 U/L (0.0-3.6); CREATINE KINASE 16 UL (21-215); TROPONIN-I < 0.017 ng/mL (0.000-0.060)
[2018-06-11 13:10] LABS: CALC OSMOLALITY 286 mosm/kg (275-300); GLUCOSE 248 mg/dL (74-106)
[2018-06-11 13:11] LABS: CARBON DIOXIDE 43.7 mmol/L (21.0-32.0)
[2018-06-11 13:15] LABS: PLATELET COUNT 185 10x3/uL (130-400)
[2018-06-11 14:31] LABS: APPEARANCE CLEAR (CLEAR); BILIRUBIN NEGATIVE (NEGATIVE); COLOR DK YELLOW (YELLOW); GLUCOSE 100 mg/dL (NEGATIVE); KETONE NEGATIVE (NEGATIVE); NITRITE NEGATIVE (NEGATIVE); PROTEIN 2+ mg/dL (NEGATIVE); SPECIFIC GRAVITY 1.015 (1.005-1.020)
[2018-06-11 14:33] LABS: BACTERIA MODERATE /hpf (NONE SEEN); EPITHELIAL CELLS 0-5 /hpf (0-5); WHITE CELLS - URINE 0-5 /hpf (0-5)
[2018-06-11 14:35] LABS: HYALINE CAST 0-5 /lpf (NONE SEEN); MUCUS <1+ /lpf (NONE SEEN)
[2018-06-12] VITALS (24 sets, daily range): BP systolic 98–170; BP diastolic 47–102; BMI 72.6
[2018-06-12 05:01] LABS: BASOPHILS 0.1 % (0-2); EOSINOPHILS 0.2 % (0-7); HEMATOCRIT 29.2 % (36.0-48.0); HEMOGLOBIN 8.5 g/dL (12-16); IMMATURE GRANULOCYTES 1.1 % (0-5); LYMPHOCYTES 5.4 % (15-50); MCH 25.8 pg (26.0-34.0); MCHC 29.1 g/dL (31.0-37.0); MEAN PLATELET VOLUME 9.7 fL (7.4-10.4); NEUTROPHILS 92.2 % (40-80); PLATELET COUNT 174 10x3/uL (130-400); RBC 3.29 10x6/uL (4.00-5.40); RDW 16.2 % (11.5-14.5)
[2018-06-12 05:07] LABS: MCV 88.8 fL (80.0-100.0); WBC 11.5 10x3/uL (4.8-10.8)
[2018-06-12 05:23] LABS: ALBUMIN 2.5 g/dL (3.4-5.0); BILIRUBIN - TOTAL 0.69 mg/dL (0.2-1.3); CARBON DIOXIDE 37.5 mmol/L (21.0-32.0); MAGNESIUM - SERUM 1.6 mg/dL (1.8-2.4); PROTEIN - SERUM 6.8 g/dL (6.4-8.2)
[2018-06-12 05:47] LABS: POTASSIUM - SERUM 3.5 mmol/L (3.5-5.1)
[2018-06-13] VITALS (27 sets, daily range): BP systolic 91–133; BP diastolic 46–77
[2018-06-13 06:25] LABS: BASOPHILS 0 % (0-2); EOSINOPHILS 0 % (0-7); HEMATOCRIT 26.9 % (36.0-48.0); HEMOGLOBIN 8.1 g/dL (12-16); IMMATURE GRANULOCYTES 0.2 % (0-5); LYMPHOCYTES 9.4 % (15-50); MCH 25.6 pg (26.0-34.0); MCHC 30.1 g/dL (31.0-37.0); MEAN PLATELET VOLUME 9.1 fL (7.4-10.4); MONOCYTES 9.5 % (2-11); NEUTROPHILS 80.9 % (40-80); RBC 3.16 10x6/uL (4.00-5.40); RDW 16.1 % (11.5-14.5)
[2018-06-13 06:26] LABS: MCV 85.1 fL (80.0-100.0); PLATELET COUNT 218 10x3/uL (130-400); WBC 8.3 10x3/uL (4.8-10.8)
[2018-06-13 06:42] LABS: ANION GAP 8.5 mmol/L (8-16); CALCIUM 8.3 mg/dL (8.5-10.1); CARBON DIOXIDE 39.7 mmol/L (21.0-32.0); POTASSIUM - SERUM 3.2 mmol/L (3.5-5.1)
[2018-06-13 06:45] LABS: MAGNESIUM - SERUM 2.3 mg/dL (1.8-2.4); PHOSPHOROUS 3.3 mg/dL (2.5-4.9)
[2018-06-14] VITALS (22 sets, daily range): BP systolic 99–136; BP diastolic 49–76
[2018-06-14 05:11] LABS: ANION GAP 8.1 mmol/L (8-16); CALCIUM 8.9 mg/dL (8.5-10.1); MAGNESIUM - SERUM 2.3 mg/dL (1.8-2.4); POTASSIUM - SERUM 3.6 mmol/L (3.5-5.1)
[2018-06-14 05:34] LABS: PHOSPHOROUS 5.5 mg/dL (2.5-4.9)
[2018-06-14 05:35] LABS: CARBON DIOXIDE 40.5 mmol/L (21.0-32.0)
[2018-06-15] VITALS (23 sets, daily range): BP systolic 88–133; BP diastolic 42–83
[2018-06-15 04:55] LABS: BASOPHILS 0 % (0-2); EOSINOPHILS 0.1 % (0-7); HEMATOCRIT 30.8 % (36.0-48.0); HEMOGLOBIN 9.1 g/dL (12-16); IMMATURE GRANULOCYTES 0.2 % (0-5); LYMPHOCYTES 6.7 % (15-50); MCH 25.3 pg (26.0-34.0); MCHC 29.5 g/dL (31.0-37.0); MCV 85.8 fL (80.0-100.0); MEAN PLATELET VOLUME 9.1 fL (7.4-10.4); MONOCYTES 6.6 % (2-11); NEUTROPHILS 86.4 % (40-80); RBC 3.59 10x6/uL (4.00-5.40); RDW 15.8 % (11.5-14.5)
[2018-06-15 04:57] LABS: PLATELET COUNT 280 10x3/uL (130-400); WBC 11.5 10x3/uL (4.8-10.8)
[2018-06-15 05:04] LABS: CALCIUM 8.8 mg/dL (8.5-10.1); CHLORIDE - SERUM 93 mmol/L (98-107); CREATININE - SERUM 0.8 mg/dL (0.6-1.3); MAGNESIUM - SERUM 2.2 mg/dL (1.8-2.4); PHOSPHOROUS 6.4 mg/dL (2.5-4.9); POTASSIUM - SERUM 3.4 mmol/L (3.5-5.1); SODIUM 136 mmol/L (136-145); UREA NITROGEN 30 mg/dL (7-18); eGFR NON AFRICAN AMERICAN 79 mL/min (90-120)
[2018-06-15 05:05] LABS: CALC OSMOLALITY 284 mosm/kg (275-300); GLUCOSE 226 mg/dL (74-106)
[2018-06-16] VITALS (22 sets, daily range): BP systolic 87–127; BP diastolic 44–66
[2018-06-16 05:09] LABS: BASOPHILS 0 % (0-2); EOSINOPHILS 0.3 % (0-7); HEMATOCRIT 31.4 % (36.0-48.0); HEMOGLOBIN 9.5 g/dL (12-16); IMMATURE GRANULOCYTES 0.2 % (0-5); LYMPHOCYTES 7.3 % (15-50); MCH 25.5 pg (26.0-34.0); MCHC 30.3 g/dL (31.0-37.0); MCV 84.2 fL (80.0-100.0); MEAN PLATELET VOLUME 8.9 fL (7.4-10.4); MONOCYTES 6.5 % (2-11); NEUTROPHILS 85.7 % (40-80); PLATELET COUNT 282 10x3/uL (130-400); RBC 3.73 10x6/uL (4.00-5.40); RDW 15.2 % (11.5-14.5)
[2018-06-16 05:11] LABS: WBC 14.5 10x3/uL (4.8-10.8)
[2018-06-16 05:28] LABS: CALC OSMOLALITY 283 mosm/kg (275-300); CALCIUM 9.1 mg/dL (8.5-10.1); CHLORIDE - SERUM 89 mmol/L (98-107); CREATININE - SERUM 0.8 mg/dL (0.6-1.3); GLUCOSE 197 mg/dL (74-106); MAGNESIUM - SERUM 2.2 mg/dL (1.8-2.4); PHOSPHOROUS 3.4 mg/dL (2.5-4.9); POTASSIUM - SERUM 2.9 mmol/L (3.5-5.1); SODIUM 135 mmol/L (136-145); UREA NITROGEN 37 mg/dL (7-18); eGFR NON AFRICAN AMERICAN 79 mL/min (90-120)
[2018-06-16 05:29] LABS: CARBON DIOXIDE 46.3 mmol/L (21.0-32.0)
[2018-06-17] VITALS (24 sets, daily range): BP systolic 97–128; BP diastolic 58–72; Ht 152.4 cm; Wt 153.8 kg
[2018-06-17 05:16] LABS: BASOPHILS 0 % (0-2); EOSINOPHILS 0.2 % (0-7); HEMATOCRIT 33.1 % (36.0-48.0); HEMOGLOBIN 9.9 g/dL (12-16); IMMATURE GRANULOCYTES 0.4 % (0-5); LYMPHOCYTES 7.1 % (15-50); MCH 25.5 pg (26.0-34.0); MCHC 29.9 g/dL (31.0-37.0); MCV 85.3 fL (80.0-100.0); MEAN PLATELET VOLUME 8.9 fL (7.4-10.4); MONOCYTES 6.6 % (2-11); NEUTROPHILS 85.7 % (40-80); RBC 3.88 10x6/uL (4.00-5.40); RDW 14.9 % (11.5-14.5); WBC 16.3 10x3/uL (4.8-10.8)
[2018-06-17 05:17] LABS: PLATELET COUNT 351 10x3/uL (130-400)
[2018-06-17 05:24] LABS: CALC OSMOLALITY 281 mosm/kg (275-300); CALCIUM 9.5 mg/dL (8.5-10.1); CHLORIDE - SERUM 89 mmol/L (98-107); CREATININE - SERUM 0.7 mg/dL (0.6-1.3); GLUCOSE 190 mg/dL (74-106); MAGNESIUM - SERUM 2.7 mg/dL (1.8-2.4); PHOSPHOROUS 3.9 mg/dL (2.5-4.9); POTASSIUM - SERUM 4.4 mmol/L (3.5-5.1); SODIUM 132 mmol/L (136-145); UREA NITROGEN 46 mg/dL (7-18); eGFR NON AFRICAN AMERICAN > 90 mL/min (90-120)
[2018-06-17 05:25] LABS: CARBON DIOXIDE 45.1 mmol/L (21.0-32.0)
[2018-06-18] VITALS (24 sets, daily range): BP systolic 93–142; BP diastolic 47–72
[2018-06-18 05:23] LABS: BASOPHILS 0 % (0-2); EOSINOPHILS 0.2 % (0-7); HEMOGLOBIN 9.7 g/dL (12-16); IMMATURE GRANULOCYTES 0.6 % (0-5); LYMPHOCYTES 4.4 % (15-50); MCH 25.7 pg (26.0-34.0); MCHC 30.3 g/dL (31.0-37.0); MCV 84.9 fL (80.0-100.0); MEAN PLATELET VOLUME 9.1 fL (7.4-10.4); MONOCYTES 6.3 % (2-11); NEUTROPHILS 88.5 % (40-80); PLATELET COUNT 388 10x3/uL (130-400); RBC 3.77 10x6/uL (4.00-5.40); RDW 14.9 % (11.5-14.5); WBC 19.8 10x3/uL (4.8-10.8)
[2018-06-18 05:52] LABS: ALBUMIN 2.9 g/dL (3.4-5.0); ALKALINE PHOSPHATASE 87 U/L (46-116); ALT (SGPT) 13 U/L (10-68); BILIRUBIN - TOTAL 0.32 mg/dL (0.2-1.3); CALC OSMOLALITY 287 mosm/kg (275-300); CALCIUM 9.3 mg/dL (8.5-10.1); CHLORIDE - SERUM 90 mmol/L (98-107); CREATININE - SERUM 0.7 mg/dL (0.6-1.3); GLUCOSE 185 mg/dL (74-106); MAGNESIUM - SERUM 2.6 mg/dL (1.8-2.4); PROTEIN - SERUM 7.4 g/dL (6.4-8.2); SODIUM 134 mmol/L (136-145); UREA NITROGEN 54 mg/dL (7-18); eGFR NON AFRICAN AMERICAN > 90 mL/min (90-120)
[2018-06-18 06:32] LABS: POTASSIUM - SERUM 3.1 mmol/L (3.5-5.1)
[2018-06-18 06:33] LABS: CARBON DIOXIDE 44.2 mmol/L (21.0-32.0)
[2018-06-19] VITALS (24 sets, daily range): BP systolic 92–127; BP diastolic 52–86
[2018-06-19 05:06] LABS: BASOPHILS 0.1 % (0-2); EOSINOPHILS 2.6 % (0-7); HEMATOCRIT 31.8 % (36.0-48.0); HEMOGLOBIN 9.6 g/dL (12-16); IMMATURE GRANULOCYTES 1.2 % (0-5); LYMPHOCYTES 12.9 % (15-50); MCH 25.7 pg (26.0-34.0); MCHC 30.2 g/dL (31.0-37.0); MEAN PLATELET VOLUME 8.8 fL (7.4-10.4); MONOCYTES 12.2 % (2-11); PLATELET COUNT 423 10x3/uL (130-400); RBC 3.74 10x6/uL (4.00-5.40); RDW 15.1 % (11.5-14.5)
[2018-06-19 05:18] LABS: CALCIUM 9.8 mg/dL (8.5-10.1); CHLORIDE - SERUM 89 mmol/L (98-107); CREATININE - SERUM 0.7 mg/dL (0.6-1.3); SODIUM 134 mmol/L (136-145); UREA NITROGEN 61 mg/dL (7-18); eGFR NON AFRICAN AMERICAN > 90 mL/min (90-120)
[2018-06-19 05:29] LABS: CALC OSMOLALITY 286 mosm/kg (275-300); GLUCOSE 127 mg/dL (74-106)
[2018-06-19 05:30] LABS: CARBON DIOXIDE 45.6 mmol/L (21.0-32.0); POTASSIUM - SERUM 2.7 mmol/L (3.5-5.1)
[2018-06-20] VITALS (24 sets, daily range): BP systolic 56–126; BP diastolic 29–70
[2018-06-20 05:02] LABS: BASOPHILS 0.2 % (0-2); EOSINOPHILS 1.6 % (0-7); HEMOGLOBIN 10.5 g/dL (12-16); IMMATURE GRANULOCYTES 2.6 % (0-5); LYMPHOCYTES 17.2 % (15-50); MCH 25.2 pg (26.0-34.0); MCV 84.1 fL (80.0-100.0); MEAN PLATELET VOLUME 8.7 fL (7.4-10.4); NEUTROPHILS 67.4 % (40-80); RBC 4.16 10x6/uL (4.00-5.40); RDW 15.1 % (11.5-14.5)
[2018-06-20 05:07] LABS: PLATELET COUNT 515 10x3/uL (130-400); WBC 18.4 10x3/uL (4.8-10.8)
[2018-06-20 05:25] LABS: CHLORIDE - SERUM 87 mmol/L (98-107); CREATININE - SERUM 0.6 mg/dL (0.6-1.3); SODIUM 137 mmol/L (136-145); UREA NITROGEN 54 mg/dL (7-18); eGFR NON AFRICAN AMERICAN > 90 mL/min (90-120)
[2018-06-20 05:31] LABS: CALC OSMOLALITY 287 mosm/kg (275-300); GLUCOSE 79 mg/dL (74-106)
[2018-06-20 05:33] LABS: CARBON DIOXIDE 46.8 mmol/L (21.0-32.0); POTASSIUM - SERUM 2.7 mmol/L (3.5-5.1)
[2018-06-21] VITALS (15 sets, daily range): BP systolic 70–131; BP diastolic 44–86
[2018-06-21 05:23] LABS: BASOPHILS 0.2 % (0-2); EOSINOPHILS 1.7 % (0-7); HEMATOCRIT 34.6 % (36.0-48.0); HEMOGLOBIN 10.6 g/dL (12-16); IMMATURE GRANULOCYTES 4.3 % (0-5); MCH 25.5 pg (26.0-34.0); MCHC 30.6 g/dL (31.0-37.0); MCV 83.2 fL (80.0-100.0); MEAN PLATELET VOLUME 8.5 fL (7.4-10.4); MONOCYTES 12.7 % (2-11); NEUTROPHILS 62.1 % (40-80); PLATELET COUNT 498 10x3/uL (130-400); RBC 4.16 10x6/uL (4.00-5.40); RDW 14.7 % (11.5-14.5); WBC 18.2 10x3/uL (4.8-10.8)
[2018-06-21 05:56] LABS: CALC OSMOLALITY 284 mosm/kg (275-300); CALCIUM 9.4 mg/dL (8.5-10.1); CHLORIDE - SERUM 93 mmol/L (98-107); CREATININE - SERUM 0.7 mg/dL (0.6-1.3); GLUCOSE 72 mg/dL (74-106); SODIUM 137 mmol/L (136-145); UREA NITROGEN 47 mg/dL (7-18); eGFR NON AFRICAN AMERICAN > 90 mL/min (90-120)
[2018-06-21 05:57] LABS: POTASSIUM - SERUM 2.3 mmol/L (3.5-5.1)
[2018-06-21 12:47] LABS: MAGNESIUM - SERUM 1.7 mg/dL (1.8-2.4); POTASSIUM - SERUM 3.2 mmol/L (3.5-5.1)
[2018-06-22 04:00] VITALS: BP 114/63
[2018-06-22 06:36] LABS: BASOPHILS 0.2 % (0-2); EOSINOPHILS 1.8 % (0-7); HEMATOCRIT 34.5 % (36.0-48.0); HEMOGLOBIN 10.4 g/dL (12-16); IMMATURE GRANULOCYTES 4.5 % (0-5); LYMPHOCYTES 17.8 % (15-50); MCH 25.4 pg (26.0-34.0); MCHC 30.1 g/dL (31.0-37.0); MCV 84.1 fL (80.0-100.0); MEAN PLATELET VOLUME 8.6 fL (7.4-10.4); MONOCYTES 10.3 % (2-11); NEUTROPHILS 65.4 % (40-80); PLATELET COUNT 475 10x3/uL (130-400); RDW 14.7 % (11.5-14.5); WBC 19.3 10x3/uL (4.8-10.8)
[2018-06-22 07:15] LABS: CALC OSMOLALITY 290 mosm/kg (275-300); CALCIUM 9.3 mg/dL (8.5-10.1); CHLORIDE - SERUM 94 mmol/L (98-107); GLUCOSE 94 mg/dL (74-106); SODIUM 141 mmol/L (136-145); UREA NITROGEN 40 mg/dL (7-18)
[2018-06-22 07:19] LABS: CREATININE - SERUM 0.5 mg/dL (0.6-1.3); POTASSIUM - SERUM 2.3 mmol/L (3.5-5.1); eGFR NON AFRICAN AMERICAN > 90 mL/min (90-120)
[2018-06-22 07:20] LABS: CARBON DIOXIDE 43.5 mmol/L (21.0-32.0)
[2018-06-22 08:18] VITALS: BP 128/63
[2018-06-22 12:01] VITALS: BP 116/69
[2018-06-22 15:40] VITALS: BP 148/78
[2018-06-22 19:55] VITALS: BP 131/52
[2018-06-22 23:39] VITALS: BP 107/39
[2018-06-23 04:00] VITALS: BP 122/65
[2018-06-23 07:55] VITALS: BP 147/71
[2018-06-23 08:34] LABS: BASOPHILS 0.3 % (0-2); EOSINOPHILS 1.8 % (0-7); HEMATOCRIT 32.7 % (36.0-48.0); HEMOGLOBIN 9.8 g/dL (12-16); IMMATURE GRANULOCYTES 4.9 % (0-5); LYMPHOCYTES 19.6 % (15-50); MCH 25.6 pg (26.0-34.0); MCV 85.4 fL (80.0-100.0); MEAN PLATELET VOLUME 8.8 fL (7.4-10.4); MONOCYTES 7.9 % (2-11); NEUTROPHILS 65.5 % (40-80); PLATELET COUNT 444 10x3/uL (130-400); RBC 3.83 10x6/uL (4.00-5.40); RDW 14.9 % (11.5-14.5)
[2018-06-23 08:43] LABS: CALC OSMOLALITY 288 mosm/kg (275-300); CALCIUM 9.1 mg/dL (8.5-10.1); CHLORIDE - SERUM 95 mmol/L (98-107); CREATININE - SERUM 0.6 mg/dL (0.6-1.3); GLUCOSE 134 mg/dL (74-106); SODIUM 139 mmol/L (136-145); UREA NITROGEN 37 mg/dL (7-18); eGFR NON AFRICAN AMERICAN > 90 mL/min (90-120)
[2018-06-23 08:47] LABS: CARBON DIOXIDE 44.2 mmol/L (21.0-32.0); POTASSIUM - SERUM 2.8 mmol/L (3.5-5.1)
[2018-06-23 13:06] VITALS: BP 106/56
[2018-06-23 16:49] VITALS: BP 128/53
[2018-06-23 21:34] VITALS: BP 142/70
[2018-06-24 01:57] VITALS: BP 102/39
[2018-06-24 06:41] LABS: CALC OSMOLALITY 291 mosm/kg (275-300); CALCIUM 8.6 mg/dL (8.5-10.1); CHLORIDE - SERUM 95 mmol/L (98-107); CREATININE - SERUM 0.6 mg/dL (0.6-1.3); GLUCOSE 123 mg/dL (74-106); POTASSIUM - SERUM 3.1 mmol/L (3.5-5.1); SODIUM 142 mmol/L (136-145); UREA NITROGEN 34 mg/dL (7-18); eGFR NON AFRICAN AMERICAN > 90 mL/min (90-120)
[2018-06-24 06:43] LABS: CARBON DIOXIDE 43.9 mmol/L (21.0-32.0)
[2018-06-24 07:09] LABS: BASOPHILS 0.1 % (0-2); EOSINOPHILS 1.2 % (0-7); HEMATOCRIT 31.8 % (36.0-48.0); HEMOGLOBIN 9.4 g/dL (12-16); IMMATURE GRANULOCYTES 4.2 % (0-5); LYMPHOCYTES 18.4 % (15-50); MCH 25.1 pg (26.0-34.0); MCHC 29.6 g/dL (31.0-37.0); MEAN PLATELET VOLUME 8.5 fL (7.4-10.4); MONOCYTES 8.4 % (2-11); NEUTROPHILS 67.7 % (40-80); PLATELET COUNT 390 10x3/uL (130-400); RBC 3.74 10x6/uL (4.00-5.40); RDW 14.9 % (11.5-14.5); WBC 18.3 10x3/uL (4.8-10.8)
[2018-06-24 08:34] VITALS: BP 150/52
[2018-06-24 12:05] VITALS: BP 145/62
[2018-06-24 19:00] VITALS: BP 135/62
[2018-06-25] VITALS (7 sets, daily range): BP systolic 90–143; BP diastolic 52–69
[2018-06-25 06:24] LABS: BASOPHILS 0.1 % (0-2); EOSINOPHILS 1.3 % (0-7); HEMATOCRIT 30.8 % (36.0-48.0); HEMOGLOBIN 9.1 g/dL (12-16); IMMATURE GRANULOCYTES 2.8 % (0-5); LYMPHOCYTES 18.9 % (15-50); MCH 25.3 pg (26.0-34.0); MCHC 29.5 g/dL (31.0-37.0); MCV 85.6 fL (80.0-100.0); MEAN PLATELET VOLUME 8.7 fL (7.4-10.4); MONOCYTES 7.8 % (2-11); NEUTROPHILS 69.1 % (40-80); PLATELET COUNT 330 10x3/uL (130-400); WBC 17.9 10x3/uL (4.8-10.8)
[2018-06-25 07:24] LABS: CALC OSMOLALITY 286 mosm/kg (275-300); CALCIUM 8.9 mg/dL (8.5-10.1); CHLORIDE - SERUM 94 mmol/L (98-107); CREATININE - SERUM 0.7 mg/dL (0.6-1.3); GLUCOSE 126 mg/dL (74-106); MAGNESIUM - SERUM 1.6 mg/dL (1.8-2.4); PHOSPHOROUS 2.9 mg/dL (2.5-4.9); SODIUM 139 mmol/L (136-145); UREA NITROGEN 32 mg/dL (7-18); eGFR NON AFRICAN AMERICAN > 90 mL/min (90-120)
[2018-06-25 07:25] LABS: POTASSIUM - SERUM 2.8 mmol/L (3.5-5.1)
[2018-06-25 07:26] LABS: CARBON DIOXIDE 40.2 mmol/L (21.0-32.0)
[2018-06-26 01:06] VITALS: BP 140/70
[2018-06-26 03:29] VITALS: BP 142/72
[2018-06-26 06:11] LABS: BASOPHILS 0.1 % (0-2); EOSINOPHILS 1.8 % (0-7); HEMOGLOBIN 9.4 g/dL (12-16); IMMATURE GRANULOCYTES 2.2 % (0-5); LYMPHOCYTES 20.3 % (15-50); MCH 25.1 pg (26.0-34.0); MCHC 29.4 g/dL (31.0-37.0); MCV 85.6 fL (80.0-100.0); MEAN PLATELET VOLUME 8.7 fL (7.4-10.4); MONOCYTES 7.1 % (2-11); NEUTROPHILS 68.5 % (40-80); PLATELET COUNT 276 10x3/uL (130-400); RBC 3.74 10x6/uL (4.00-5.40); RDW 15.3 % (11.5-14.5); WBC 13.6 10x3/uL (4.8-10.8)
[2018-06-26 06:45] LABS: CALCIUM 9.7 mg/dL (8.5-10.1); GLUCOSE 81 mg/dL (74-106); MAGNESIUM - SERUM 1.8 mg/dL (1.8-2.4); UREA NITROGEN 33 mg/dL (7-18)
[2018-06-26 06:53] LABS: CREATININE - SERUM 0.5 mg/dL (0.6-1.3); eGFR NON AFRICAN AMERICAN > 90 mL/min (90-120)
[2018-06-26 07:06] LABS: CALC OSMOLALITY 290 mosm/kg (275-300); SODIUM 143 mmol/L (136-145)
[2018-06-26 07:07] LABS: CHLORIDE - SERUM 94 mmol/L (98-107)
[2018-06-26 07:08] LABS: POTASSIUM - SERUM 2.7 mmol/L (3.5-5.1)
[2018-06-26 08:11] VITALS: BP 116/58
[2018-06-26 11:30] VITALS: BP 113/60
[2018-06-26 15:35] VITALS: BP 131/65
[2018-06-26 20:14] VITALS: BP 114/70
[2018-06-27] VITALS: BP 111/52
[2018-06-27 04:00] VITALS: BP 132/60
[2018-06-27 05:37] LABS: BASOPHILS 0.1 % (0-2); EOSINOPHILS 1.2 % (0-7); HEMATOCRIT 31.1 % (36.0-48.0); IMMATURE GRANULOCYTES 1.7 % (0-5); LYMPHOCYTES 18.6 % (15-50); MCH 24.9 pg (26.0-34.0); MCHC 28.9 g/dL (31.0-37.0); MCV 85.9 fL (80.0-100.0); MEAN PLATELET VOLUME 8.7 fL (7.4-10.4); MONOCYTES 6.8 % (2-11); NEUTROPHILS 71.6 % (40-80); PLATELET COUNT 262 10x3/uL (130-400); RBC 3.62 10x6/uL (4.00-5.40); RDW 15.6 % (11.5-14.5); WBC 14.2 10x3/uL (4.8-10.8)
[2018-06-27 06:11] LABS: CALCIUM 9.2 mg/dL (8.5-10.1); CHLORIDE - SERUM 95 mmol/L (98-107); CREATININE - SERUM 0.5 mg/dL (0.6-1.3); SODIUM 140 mmol/L (136-145); UREA NITROGEN 33 mg/dL (7-18); eGFR NON AFRICAN AMERICAN > 90 mL/min (90-120)
[2018-06-27 06:33] LABS: CALC OSMOLALITY 288 mosm/kg (275-300); GLUCOSE 153 mg/dL (74-106)
[2018-06-27 06:34] LABS: CARBON DIOXIDE 41.5 mmol/L (21.0-32.0)
[2018-06-27 08:05] VITALS: BP 99/65
[2018-06-27 10:38] VITALS: BP 93/52
[2018-06-27 14:58] VITALS: BP 100/54
[2018-06-27 20:00] VITALS: BP 128/56
[2018-06-28] VITALS: BP 128/67
[2018-06-28 04:00] VITALS: BP 126/60
[2018-06-28 05:30] LABS: CALC OSMOLALITY 296 mosm/kg (275-300); CHLORIDE - SERUM 99 mmol/L (98-107); CREATININE - SERUM 0.6 mg/dL (0.6-1.3); GLUCOSE 101 mg/dL (74-106); MAGNESIUM - SERUM 1.6 mg/dL (1.8-2.4); PHOSPHOROUS 4.9 mg/dL (2.5-4.9); SODIUM 145 mmol/L (136-145); UREA NITROGEN 34 mg/dL (7-18); eGFR NON AFRICAN AMERICAN > 90 mL/min (90-120)
[2018-06-28 05:31] LABS: CARBON DIOXIDE 43.4 mmol/L (21.0-32.0)
[2018-06-28 06:22] LABS: BASOPHILS 0.1 % (0-2); EOSINOPHILS 1.2 % (0-7); HEMOGLOBIN 8.8 g/dL (12-16); IMMATURE GRANULOCYTES 1.2 % (0-5); LYMPHOCYTES 17.2 % (15-50); MCH 25.1 pg (26.0-34.0); MCHC 29.3 g/dL (31.0-37.0); MCV 85.5 fL (80.0-100.0); MONOCYTES 6.5 % (2-11); NEUTROPHILS 73.8 % (40-80); PLATELET COUNT 243 10x3/uL (130-400); RBC 3.51 10x6/uL (4.00-5.40); RDW 15.8 % (11.5-14.5)
[2018-06-28 07:41] VITALS: BP 128/58
[2018-06-28 10:40] VITALS: BP 106/64
[2018-06-28 14:43] VITALS: BP 127/70
[2018-06-28 20:00] VITALS: BP 110/49
[2018-06-29] VITALS: BP 103/58
[2018-06-29 04:00] VITALS: BP 99/37
[2018-06-29 06:36] LABS: CALC OSMOLALITY 283 mosm/kg (275-300); CALCIUM 8.9 mg/dL (8.5-10.1); CHLORIDE - SERUM 96 mmol/L (98-107); CREATININE - SERUM 0.5 mg/dL (0.6-1.3); GLUCOSE 102 mg/dL (74-106); MAGNESIUM - SERUM 1.7 mg/dL (1.8-2.4); SODIUM 140 mmol/L (136-145); UREA NITROGEN 27 mg/dL (7-18); eGFR NON AFRICAN AMERICAN > 90 mL/min (90-120)
[2018-06-29 06:37] LABS: CARBON DIOXIDE 41.3 mmol/L (21.0-32.0); POTASSIUM - SERUM 2.9 mmol/L (3.5-5.1)
[2018-06-29 06:47] LABS: BASOPHILS 0.1 % (0-2); HEMATOCRIT 31.1 % (36.0-48.0); HEMOGLOBIN 9.3 g/dL (12-16); IMMATURE GRANULOCYTES 0.6 % (0-5); LYMPHOCYTES 16.7 % (15-50); MCH 25.3 pg (26.0-34.0); MCHC 29.9 g/dL (31.0-37.0); MCV 84.7 fL (80.0-100.0); MEAN PLATELET VOLUME 8.9 fL (7.4-10.4); MONOCYTES 5.5 % (2-11); NEUTROPHILS 76.1 % (40-80); PLATELET COUNT 226 10x3/uL (130-400); RBC 3.67 10x6/uL (4.00-5.40); RDW 15.7 % (11.5-14.5); WBC 15.8 10x3/uL (4.8-10.8)
[2018-06-29 20:00] VITALS: BP 117/52
[2018-06-30] VITALS: BP 110/50
[2018-06-30 06:00] VITALS: BP 139/61
[2018-06-30 06:51] LABS: MAGNESIUM - SERUM 1.9 mg/dL (1.8-2.4)
[2018-06-30 06:52] LABS: POTASSIUM - SERUM 2.9 mmol/L (3.5-5.1)
[2018-06-30 08:00] VITALS: BP 99/53
[2018-06-30 12:00] VITALS: BP 124/60
[2018-06-30 16:00] VITALS: BP 123/64
[2018-06-30 20:00] VITALS: BP 118/50
[2018-07-01 00:29] VITALS: BP 133/64
[2018-07-01 04:00] VITALS: BP 89/38
[2018-07-01 06:04] LABS: BASOPHILS 0.1 % (0-2); EOSINOPHILS 1.4 % (0-7); HEMATOCRIT 29.6 % (36.0-48.0); HEMOGLOBIN 8.8 g/dL (12-16); IMMATURE GRANULOCYTES 0.8 % (0-5); LYMPHOCYTES 15.9 % (15-50); MCH 25.4 pg (26.0-34.0); MCHC 29.7 g/dL (31.0-37.0); MCV 85.5 fL (80.0-100.0); MEAN PLATELET VOLUME 9.1 fL (7.4-10.4); MONOCYTES 6.5 % (2-11); NEUTROPHILS 75.3 % (40-80); PLATELET COUNT 230 10x3/uL (130-400); RBC 3.46 10x6/uL (4.00-5.40); RDW 16.2 % (11.5-14.5); WBC 15.4 10x3/uL (4.8-10.8)
[2018-07-01 06:18] LABS: CALCIUM 8.8 mg/dL (8.5-10.1); CHLORIDE - SERUM 96 mmol/L (98-107); CREATININE - SERUM 0.6 mg/dL (0.6-1.3); GLUCOSE 148 mg/dL (74-106); SODIUM 140 mmol/L (136-145); eGFR NON AFRICAN AMERICAN > 90 mL/min (90-120)
[2018-07-01 06:38] LABS: CALC OSMOLALITY 290 mosm/kg (275-300); UREA NITROGEN 37 mg/dL (7-18)
[2018-07-01 06:39] LABS: CARBON DIOXIDE 40.4 mmol/L (21.0-32.0)
[2018-07-01 07:54] VITALS: BP 118/58
[2018-07-01 11:13] VITALS: BP 107/65
[2018-07-01 20:37] VITALS: BP 130/76
[2018-07-02] VITALS: BP 116/61
[2018-07-02 04:00] VITALS: BP 136/58
[2018-07-02 06:10] LABS: BASOPHILS 0.1 % (0-2); EOSINOPHILS 1.1 % (0-7); HEMATOCRIT 29.4 % (36.0-48.0); HEMOGLOBIN 8.8 g/dL (12-16); IMMATURE GRANULOCYTES 0.5 % (0-5); LYMPHOCYTES 15.7 % (15-50); MCH 25.5 pg (26.0-34.0); MCHC 29.9 g/dL (31.0-37.0); MCV 85.2 fL (80.0-100.0); MEAN PLATELET VOLUME 8.9 fL (7.4-10.4); MONOCYTES 5.4 % (2-11); NEUTROPHILS 77.2 % (40-80); PLATELET COUNT 235 10x3/uL (130-400); RBC 3.45 10x6/uL (4.00-5.40); RDW 16.4 % (11.5-14.5); WBC 14.2 10x3/uL (4.8-10.8)
[2018-07-02 06:30] LABS: CALC OSMOLALITY 290 mosm/kg (275-300); CHLORIDE - SERUM 95 mmol/L (98-107); CREATININE - SERUM 0.7 mg/dL (0.6-1.3); GLUCOSE 133 mg/dL (74-106); SODIUM 141 mmol/L (136-145); UREA NITROGEN 35 mg/dL (7-18); eGFR NON AFRICAN AMERICAN > 90 mL/min (90-120)
[2018-07-02 06:53] LABS: CARBON DIOXIDE 40.8 mmol/L (21.0-32.0); POTASSIUM - SERUM 2.6 mmol/L (3.5-5.1)
[2018-07-02 09:52] VITALS: BP 114/64
[2018-07-02 13:28] VITALS: BP 120/80
[2018-07-02 17:08] VITALS: BP 109/54
[2018-07-02 20:00] VITALS: BP 116/37
[2018-07-03] VITALS: BP 98/47
[2018-07-03 05:16] VITALS: BP 118/64
[2018-07-03 06:46] LABS: CALC OSMOLALITY 300 mosm/kg (275-300); CALCIUM 8.8 mg/dL (8.5-10.1); CARBON DIOXIDE 38.3 mmol/L (21.0-32.0); CHLORIDE - SERUM 98 mmol/L (98-107); CREATININE - SERUM 0.8 mg/dL (0.6-1.3); GLUCOSE 146 mg/dL (74-106); SODIUM 144 mmol/L (136-145); UREA NITROGEN 42 mg/dL (7-18); eGFR NON AFRICAN AMERICAN 79 mL/min (90-120)
[2018-07-03 07:29] LABS: BASOPHILS 0.1 % (0-2); EOSINOPHILS 1.4 % (0-7); HEMATOCRIT 30.1 % (36.0-48.0); HEMOGLOBIN 9.1 g/dL (12-16); IMMATURE GRANULOCYTES 0.6 % (0-5); LYMPHOCYTES 14.2 % (15-50); MCH 25.7 pg (26.0-34.0); MCHC 30.2 g/dL (31.0-37.0); MEAN PLATELET VOLUME 9.1 fL (7.4-10.4); MONOCYTES 6.3 % (2-11); NEUTROPHILS 77.4 % (40-80); PLATELET COUNT 273 10x3/uL (130-400); RBC 3.54 10x6/uL (4.00-5.40); RDW 16.4 % (11.5-14.5); WBC 14.4 10x3/uL (4.8-10.8)
[2018-07-03 07:58] VITALS: BP 106/56
[2018-07-03 11:37] VITALS: BP 145/60
[2018-07-03 16:42] LABS: BASOPHILS 0.1 % (0-2); EOSINOPHILS 0.7 % (0-7); HEMATOCRIT 31.6 % (36.0-48.0); HEMOGLOBIN 9.5 g/dL (12-16); IMMATURE GRANULOCYTES 0.4 % (0-5); LYMPHOCYTES 8.3 % (15-50); MCH 25.5 pg (26.0-34.0); MCHC 30.1 g/dL (31.0-37.0); MCV 84.7 fL (80.0-100.0); MEAN PLATELET VOLUME 8.8 fL (7.4-10.4); MONOCYTES 5.1 % (2-11); NEUTROPHILS 85.4 % (40-80); PLATELET COUNT 278 10x3/uL (130-400); RBC 3.73 10x6/uL (4.00-5.40); RDW 16.5 % (11.5-14.5); WBC 14.9 10x3/uL (4.8-10.8)
[2018-07-03 16:50] VITALS: BP 122/65
[2018-07-03 16:50] LABS: APTT 26.2 SECONDS (22.8-39.4); PROTIME 12.7 SECONDS (11.6-15.0)
[2018-07-03 20:24] VITALS: BP 102/45
[2018-07-04 00:58] VITALS: BP 134/68
[2018-07-04 04:00] VITALS: BP 112/55
[2018-07-04 06:00] LABS: CALC OSMOLALITY 273 mosm/kg (275-300); CALCIUM 9.8 mg/dL (8.5-10.1); CARBON DIOXIDE 32.9 mmol/L (21.0-32.0); CHLORIDE - SERUM 91 mmol/L (98-107); CREATININE - SERUM 0.6 mg/dL (0.6-1.3); GLUCOSE 105 mg/dL (74-106); SODIUM 133 mmol/L (136-145); UREA NITROGEN 34 mg/dL (7-18); eGFR NON AFRICAN AMERICAN > 90 mL/min (90-120)
[2018-07-04 06:02] LABS: BASOPHILS 0.3 % (0-2); EOSINOPHILS 2.3 % (0-7); HEMATOCRIT 30.9 % (36.0-48.0); HEMOGLOBIN 9.4 g/dL (12-16); IMMATURE GRANULOCYTES 0.6 % (0-5); LYMPHOCYTES 10.3 % (15-50); MCHC 30.4 g/dL (31.0-37.0); MCV 85.4 fL (80.0-100.0); MEAN PLATELET VOLUME 9.3 fL (7.4-10.4); NEUTROPHILS 79.5 % (40-80); PLATELET COUNT 232 10x3/uL (130-400); RBC 3.62 10x6/uL (4.00-5.40); WBC 10.4 10x3/uL (4.8-10.8)
[2018-07-04 06:37] LABS: POTASSIUM - SERUM 2.7 mmol/L (3.5-5.1)
[2018-07-04 08:15] VITALS: BP 114/48
[2018-07-04 17:02] VITALS: BP 104/62
[2018-07-04 20:52] VITALS: BP 145/67
[2018-07-05 00:47] VITALS: BP 105/49
[2018-07-05 00:48] VITALS: BP 105/49
[2018-07-05 04:24] LABS: BASOPHILS 0.1 % (0-2); EOSINOPHILS 0.9 % (0-7); HEMATOCRIT 29.9 % (36.0-48.0); HEMOGLOBIN 9.1 g/dL (12-16); IMMATURE GRANULOCYTES 0.6 % (0-5); LYMPHOCYTES 10.4 % (15-50); MCH 25.5 pg (26.0-34.0); MCHC 30.4 g/dL (31.0-37.0); MCV 83.8 fL (80.0-100.0); MEAN PLATELET VOLUME 8.5 fL (7.4-10.4); MONOCYTES 6.9 % (2-11); NEUTROPHILS 81.1 % (40-80); PLATELET COUNT 220 10x3/uL (130-400); RBC 3.57 10x6/uL (4.00-5.40); RDW 16.6 % (11.5-14.5)
[2018-07-05 04:35] LABS: ANION GAP 8.8 mmol/L (8-16); CALCIUM 9.3 mg/dL (8.5-10.1); CARBON DIOXIDE 39.6 mmol/L (21.0-32.0)
[2018-07-05 04:36] LABS: CREATININE - SERUM 0.9 mg/dL (0.6-1.3)
[2018-07-05 04:38] LABS: POTASSIUM - SERUM 2.4 mmol/L (3.5-5.1)
[2018-07-05 07:51] VITALS: BP 122/86
[2018-07-05 11:32] VITALS: BP 132/59
[2018-07-05 13:16] LABS: FUNGUS STAIN Final report (())
[2018-07-05 15:44] VITALS: BP 105/56
[2018-07-05 18:10] LABS: ACID FAST SMEAR Negative (()); AFB SPECIMEN PROCESSING Concentration (())
[2018-07-05 20:00] VITALS: BP 92/46
[2018-07-06 06:34] VITALS: BP 113/48
[2018-07-06 08:18] VITALS: BP 109/55
[2018-07-06 12:12] VITALS: BP 111/63
[2018-07-06 16:27] VITALS: BP 114/54
[2018-07-06 19:30] VITALS: BP 132/91
[2018-07-06 23:55] VITALS: BP 109/55
[2018-07-07 04:15] VITALS: BP 118/61
[2018-07-07 07:04] LABS: BASOPHILS 0.1 % (0-2); EOSINOPHILS 1.3 % (0-7); HEMATOCRIT 27.2 % (36.0-48.0); HEMOGLOBIN 8.3 g/dL (12-16); IMMATURE GRANULOCYTES 0.4 % (0-5); LYMPHOCYTES 13.9 % (15-50); MCH 25.3 pg (26.0-34.0); MCHC 30.5 g/dL (31.0-37.0); MCV 82.9 fL (80.0-100.0); MEAN PLATELET VOLUME 8.8 fL (7.4-10.4); MONOCYTES 9.8 % (2-11); NEUTROPHILS 74.5 % (40-80); PLATELET COUNT 205 10x3/uL (130-400); RBC 3.28 10x6/uL (4.00-5.40); RDW 16.1 % (11.5-14.5); WBC 9.9 10x3/uL (4.8-10.8)
[2018-07-07 07:11] LABS: ALBUMIN 2.5 g/dL (3.4-5.0); ALKALINE PHOSPHATASE 57 U/L (46-116); ALT (SGPT) 15 U/L (10-68); BILIRUBIN - TOTAL 0.48 mg/dL (0.2-1.3); CALC OSMOLALITY 277 mosm/kg (275-300); CARBON DIOXIDE 38.9 mmol/L (21.0-32.0); CHLORIDE - SERUM 90 mmol/L (98-107); CREATININE - SERUM 0.7 mg/dL (0.6-1.3); GLUCOSE 132 mg/dL (74-106); PROTEIN - SERUM 6.8 g/dL (6.4-8.2); SODIUM 135 mmol/L (136-145); UREA NITROGEN 28 mg/dL (7-18); eGFR NON AFRICAN AMERICAN > 90 mL/min (90-120)
[2018-07-07 07:13] LABS: POTASSIUM - SERUM 2.4 mmol/L (3.5-5.1)
[2018-07-07 08:11] VITALS: BP 102/60
[2018-07-07 12:00] VITALS: BP 151/93
[2018-07-07 16:00] VITALS: BP 110/51
[2018-07-07 21:47] VITALS: BP 106/45
[2018-07-08] VITALS (11 sets, daily range): BP systolic 73–118; BP diastolic 30–59
[2018-07-08 05:03] LABS: BASOPHILS 0.1 % (0-2); EOSINOPHILS 1.5 % (0-7); HEMATOCRIT 26.1 % (36.0-48.0); HEMOGLOBIN 7.9 g/dL (12-16); IMMATURE GRANULOCYTES 0.4 % (0-5); LYMPHOCYTES 10.1 % (15-50); MCH 25.2 pg (26.0-34.0); MCHC 30.3 g/dL (31.0-37.0); MCV 83.1 fL (80.0-100.0); MEAN PLATELET VOLUME 8.9 fL (7.4-10.4); MONOCYTES 10.2 % (2-11); NEUTROPHILS 77.7 % (40-80); PLATELET COUNT 215 10x3/uL (130-400); RBC 3.14 10x6/uL (4.00-5.40); RDW 16.3 % (11.5-14.5); WBC 9.3 10x3/uL (4.8-10.8)
[2018-07-08 05:28] LABS: ALBUMIN 2.3 g/dL (3.4-5.0); ALKALINE PHOSPHATASE 54 U/L (46-116); ALT (SGPT) 14 U/L (10-68); BILIRUBIN - TOTAL 0.53 mg/dL (0.2-1.3); CALC OSMOLALITY 279 mosm/kg (275-300); CALCIUM 8.7 mg/dL (8.5-10.1); CHLORIDE - SERUM 90 mmol/L (98-107); CREATININE - SERUM 0.8 mg/dL (0.6-1.3); GLUCOSE 126 mg/dL (74-106); PROTEIN - SERUM 6.7 g/dL (6.4-8.2); SODIUM 137 mmol/L (136-145); UREA NITROGEN 25 mg/dL (7-18); eGFR NON AFRICAN AMERICAN 79 mL/min (90-120)
[2018-07-08 05:38] LABS: CARBON DIOXIDE 40.8 mmol/L (21.0-32.0); POTASSIUM - SERUM 2.6 mmol/L (3.5-5.1)
[2018-07-09] VITALS (24 sets, daily range): BP systolic 83–115; BP diastolic 39–60
[2018-07-09 06:21] LABS: BASOPHILS 0.1 % (0-2); EOSINOPHILS 0.6 % (0-7); HEMATOCRIT 22.8 % (36.0-48.0); IMMATURE GRANULOCYTES 0.5 % (0-5); LYMPHOCYTES 9.3 % (15-50); MCH 25.4 pg (26.0-34.0); MCHC 30.7 g/dL (31.0-37.0); MCV 82.6 fL (80.0-100.0); MEAN PLATELET VOLUME 8.8 fL (7.4-10.4); MONOCYTES 11.9 % (2-11); NEUTROPHILS 77.6 % (40-80); PLATELET COUNT 212 10x3/uL (130-400); RBC 2.76 10x6/uL (4.00-5.40); RDW 16.4 % (11.5-14.5); WBC 7.8 10x3/uL (4.8-10.8)
[2018-07-09 06:46] LABS: ALBUMIN 2.1 g/dL (3.4-5.0); ANION GAP 8.9 mmol/L (8-16); BILIRUBIN - TOTAL 0.33 mg/dL (0.2-1.3); CALCIUM 8.4 mg/dL (8.5-10.1); CARBON DIOXIDE 36.1 mmol/L (21.0-32.0); MAGNESIUM - SERUM 1.8 mg/dL (1.8-2.4); PHOSPHOROUS 3.6 mg/dL (2.5-4.9); PROTEIN - SERUM 6.5 g/dL (6.4-8.2)
[2018-07-09 20:16] LABS: HEMATOCRIT 25.9 % (36.0-48.0); HEMOGLOBIN 8.1 g/dL (12-16)
[2018-07-10] VITALS (17 sets, daily range): BP systolic 90–163; BP diastolic 35–94
[2018-07-10 05:34] LABS: BASOPHILS 0 % (0-2); EOSINOPHILS 0.8 % (0-7); HEMATOCRIT 25.9 % (36.0-48.0); HEMOGLOBIN 7.9 g/dL (12-16); IMMATURE GRANULOCYTES 0.8 % (0-5); LYMPHOCYTES 13.3 % (15-50); MCH 25.2 pg (26.0-34.0); MCHC 30.5 g/dL (31.0-37.0); MCV 82.5 fL (80.0-100.0); MEAN PLATELET VOLUME 9.2 fL (7.4-10.4); MONOCYTES 10.1 % (2-11); RBC 3.14 10x6/uL (4.00-5.40); RDW 15.8 % (11.5-14.5); WBC 7.8 10x3/uL (4.8-10.8)
[2018-07-10 05:39] LABS: PLATELET COUNT 310 10x3/uL (130-400)
[2018-07-10 05:46] LABS: ALBUMIN 2.2 g/dL (3.4-5.0); ANION GAP 10.8 mmol/L (8-16); BILIRUBIN - TOTAL 0.2 mg/dL (0.2-1.3); CARBON DIOXIDE 35.6 mmol/L (21.0-32.0); CREATININE - SERUM 1.1 mg/dL (0.6-1.3); MAGNESIUM - SERUM 1.9 mg/dL (1.8-2.4); PHOSPHOROUS 3.3 mg/dL (2.5-4.9); POTASSIUM - SERUM 3.4 mmol/L (3.5-5.1); PROTEIN - SERUM 6.9 g/dL (6.4-8.2)
[2018-07-10 16:15] LABS: FUNGUS MYCOLOGY CULTURE Preliminary report (())
[2018-07-11 01:05] VITALS: BP 134/64
[2018-07-11 06:01] LABS: BASOPHILS 0.1 % (0-2); EOSINOPHILS 0.9 % (0-7); HEMATOCRIT 28.2 % (36.0-48.0); HEMOGLOBIN 8.6 g/dL (12-16); LYMPHOCYTES 12.2 % (15-50); MCH 25.3 pg (26.0-34.0); MCHC 30.5 g/dL (31.0-37.0); MCV 82.9 fL (80.0-100.0); MEAN PLATELET VOLUME 8.7 fL (7.4-10.4); MONOCYTES 5.3 % (2-11); NEUTROPHILS 80.5 % (40-80); PLATELET COUNT 360 10x3/uL (130-400); WBC 8.1 10x3/uL (4.8-10.8)
[2018-07-11 06:18] LABS: ALBUMIN 2.5 g/dL (3.4-5.0); ANION GAP 13.5 mmol/L (8-16); BILIRUBIN - TOTAL 0.16 mg/dL (0.2-1.3); CALCIUM 9.3 mg/dL (8.5-10.1); CARBON DIOXIDE 35.4 mmol/L (21.0-32.0); CREATININE - SERUM 1.1 mg/dL (0.6-1.3); PROTEIN - SERUM 7.2 g/dL (6.4-8.2)
[2018-07-11 06:19] LABS: POTASSIUM - SERUM 2.9 mmol/L (3.5-5.1)
[2018-07-11 06:29] VITALS: BP 108/58
[2018-07-11 08:43] VITALS: BP 123/62
[2018-07-11 12:10] VITALS: BP 101/39
[2018-07-11 16:12] VITALS: BP 114/47
[2018-07-11 20:00] VITALS: BP 122/53
[2018-07-12 00:43] VITALS: BP 120/60
[2018-07-12 04:00] VITALS: BP 137/48
[2018-07-12 05:46] LABS: BASOPHILS 0.2 % (0-2); EOSINOPHILS 1.7 % (0-7); HEMATOCRIT 27.4 % (36.0-48.0); HEMOGLOBIN 8.5 g/dL (12-16); IMMATURE GRANULOCYTES 2.1 % (0-5); LYMPHOCYTES 21.4 % (15-50); MCH 25.6 pg (26.0-34.0); MCV 82.5 fL (80.0-100.0); MEAN PLATELET VOLUME 8.5 fL (7.4-10.4); MONOCYTES 8.8 % (2-11); NEUTROPHILS 65.8 % (40-80); PLATELET COUNT 378 10x3/uL (130-400); RBC 3.32 10x6/uL (4.00-5.40); RDW 16.1 % (11.5-14.5); WBC 8.7 10x3/uL (4.8-10.8)
[2018-07-12 05:58] LABS: ANION GAP 10.8 mmol/L (8-16); CALCIUM 9.5 mg/dL (8.5-10.1); CARBON DIOXIDE 35.3 mmol/L (21.0-32.0); POTASSIUM - SERUM 3.1 mmol/L (3.5-5.1)
[2018-07-12 08:34] VITALS: BP 101/48
[2018-07-12 12:34] VITALS: BP 117/60
[2018-07-12 16:34] VITALS: BP 105/51
[2018-07-12 21:33] VITALS: BP 101/46
[2018-07-13 01:10] VITALS: BP 109/43
[2018-07-13 04:40] VITALS: BP 108/54
[2018-07-13 06:15] LABS: BASOPHILS 0.2 % (0-2); EOSINOPHILS 2.4 % (0-7); HEMOGLOBIN 8.7 g/dL (12-16); IMMATURE GRANULOCYTES 3.1 % (0-5); MCH 25.1 pg (26.0-34.0); MCV 83.6 fL (80.0-100.0); MEAN PLATELET VOLUME 8.5 fL (7.4-10.4); MONOCYTES 8.9 % (2-11); NEUTROPHILS 63.4 % (40-80); PLATELET COUNT 394 10x3/uL (130-400); RBC 3.47 10x6/uL (4.00-5.40); RDW 16.5 % (11.5-14.5); WBC 9.5 10x3/uL (4.8-10.8)
[2018-07-13 06:43] LABS: CALCIUM 9.6 mg/dL (8.5-10.1); CARBON DIOXIDE 34.1 mmol/L (21.0-32.0); CREATININE - SERUM 0.9 mg/dL (0.6-1.3); POTASSIUM - SERUM 3.1 mmol/L (3.5-5.1)
[2018-07-13 07:00] VITALS: BP 112/62
[2018-07-13 12:30] VITALS: BP 110/68
[2018-07-13 17:04] VITALS: BP 114/65
[2018-07-13 20:42] VITALS: BP 106/55
[2018-07-14 01:23] VITALS: BP 101/56
[2018-07-14 05:14] VITALS: BP 114/59
[2018-07-14 09:04] VITALS: BP 142/61
[2018-07-14 10:13] LABS: BASOPHILS 0.1 % (0-2); HEMATOCRIT 29.2 % (36.0-48.0); HEMOGLOBIN 8.8 g/dL (12-16); IMMATURE GRANULOCYTES 3.5 % (0-5); LYMPHOCYTES 17.3 % (15-50); MCH 25.2 pg (26.0-34.0); MCHC 30.1 g/dL (31.0-37.0); MCV 83.7 fL (80.0-100.0); MEAN PLATELET VOLUME 8.2 fL (7.4-10.4); MONOCYTES 8.4 % (2-11); NEUTROPHILS 67.7 % (40-80); PLATELET COUNT 373 10x3/uL (130-400); RBC 3.49 10x6/uL (4.00-5.40); RDW 16.6 % (11.5-14.5)
[2018-07-14 10:22] LABS: WBC 12.4 10x3/uL (4.8-10.8)
[2018-07-14 10:46] LABS: CALC OSMOLALITY 277 mosm/kg (275-300); CALCIUM 9.1 mg/dL (8.5-10.1); CARBON DIOXIDE 28.6 mmol/L (21.0-32.0); CHLORIDE - SERUM 99 mmol/L (98-107); CREATININE - SERUM 0.8 mg/dL (0.6-1.3); GLUCOSE 104 mg/dL (74-106); MAGNESIUM - SERUM 1.7 mg/dL (1.8-2.4); POTASSIUM - SERUM 3.4 mmol/L (3.5-5.1); SODIUM 137 mmol/L (136-145); UREA NITROGEN 23 mg/dL (7-18); eGFR NON AFRICAN AMERICAN 79 mL/min (90-120)
[2018-07-14 12:30] VITALS: BP 116/41
[2018-07-14 17:15] VITALS: BP 104/45
[2018-07-14 21:14] VITALS: BP 129/52
[2018-07-15 04:19] VITALS: BP 102/47
[2018-07-15 04:57] LABS: BASOPHILS 0.2 % (0-2); EOSINOPHILS 2.5 % (0-7); HEMATOCRIT 28.8 % (36.0-48.0); HEMOGLOBIN 8.3 g/dL (12-16); IMMATURE GRANULOCYTES 3.3 % (0-5); LYMPHOCYTES 18.5 % (15-50); MCH 24.6 pg (26.0-34.0); MCHC 28.8 g/dL (31.0-37.0); MCV 85.5 fL (80.0-100.0); MEAN PLATELET VOLUME 8.4 fL (7.4-10.4); MONOCYTES 7.1 % (2-11); NEUTROPHILS 68.4 % (40-80); PLATELET COUNT 382 10x3/uL (130-400); RBC 3.37 10x6/uL (4.00-5.40); RDW 16.5 % (11.5-14.5); WBC 12.2 10x3/uL (4.8-10.8)
[2018-07-15 05:26] LABS: ANION GAP 11.9 mmol/L (8-16); CALCIUM 8.8 mg/dL (8.5-10.1); CARBON DIOXIDE 28.1 mmol/L (21.0-32.0); CREATININE - SERUM 0.9 mg/dL (0.6-1.3); MAGNESIUM - SERUM 1.9 mg/dL (1.8-2.4); PHOSPHOROUS 3.8 mg/dL (2.5-4.9)
[2018-07-15 09:23] VITALS: BP 130/48
[2018-07-15 12:17] VITALS: BP 110/42
[2018-07-15 20:00] VITALS: BP 129/48
[2018-07-16] VITALS: BP 135/68
[2018-07-16 04:00] VITALS: BP 100/47
[2018-07-16 06:48] LABS: BASOPHILS 0.2 % (0-2); EOSINOPHILS 3.1 % (0-7); HEMOGLOBIN 8.1 g/dL (12-16); IMMATURE GRANULOCYTES 2.2 % (0-5); LYMPHOCYTES 19.9 % (15-50); MCH 24.8 pg (26.0-34.0); MCHC 28.9 g/dL (31.0-37.0); MCV 85.6 fL (80.0-100.0); MEAN PLATELET VOLUME 8.2 fL (7.4-10.4); MONOCYTES 7.6 % (2-11); RBC 3.27 10x6/uL (4.00-5.40); RDW 16.8 % (11.5-14.5); WBC 11.1 10x3/uL (4.8-10.8)
[2018-07-16 06:49] LABS: PLATELET COUNT 291 10x3/uL (130-400)
[2018-07-16 07:08] LABS: ANION GAP 11.5 mmol/L (8-16); CALCIUM 8.7 mg/dL (8.5-10.1); POTASSIUM - SERUM 4.5 mmol/L (3.5-5.1)
[2018-07-16 09:34] VITALS: BP 120/50
[2018-07-16 12:45] VITALS: BP 118/67
[2018-07-16 20:22] VITALS: BP 110/53
[2018-07-17 00:09] VITALS: BP 126/53
[2018-07-17 04:16] VITALS: BP 112/52
[2018-07-17 07:21] LABS: BASOPHILS 0.2 % (0-2); EOSINOPHILS 2.6 % (0-7); HEMATOCRIT 28.7 % (36.0-48.0); HEMOGLOBIN 8.4 g/dL (12-16); IMMATURE GRANULOCYTES 1.7 % (0-5); MCH 24.8 pg (26.0-34.0); MCHC 29.3 g/dL (31.0-37.0); MCV 84.7 fL (80.0-100.0); MEAN PLATELET VOLUME 8.4 fL (7.4-10.4); MONOCYTES 7.1 % (2-11); NEUTROPHILS 67.4 % (40-80); PLATELET COUNT 289 10x3/uL (130-400); RBC 3.39 10x6/uL (4.00-5.40); RDW 16.8 % (11.5-14.5); WBC 10.2 10x3/uL (4.8-10.8)
[2018-07-17 07:52] LABS: ALBUMIN 2.6 g/dL (3.4-5.0); ALKALINE PHOSPHATASE 49 U/L (46-116); ALT (SGPT) 10 U/L (10-68); CALC OSMOLALITY 285 mosm/kg (275-300); CALCIUM 8.8 mg/dL (8.5-10.1); CARBON DIOXIDE 27.5 mmol/L (21.0-32.0); CHLORIDE - SERUM 103 mmol/L (98-107); CREATININE - SERUM 0.8 mg/dL (0.6-1.3); GLUCOSE 133 mg/dL (74-106); PROTEIN - SERUM 6.5 g/dL (6.4-8.2); SODIUM 140 mmol/L (136-145); UREA NITROGEN 27 mg/dL (7-18); eGFR NON AFRICAN AMERICAN 79 mL/min (90-120)
[2018-07-17 07:57] LABS: POTASSIUM - SERUM 3.7 mmol/L (3.5-5.1)
[2018-07-17 08:30] VITALS: BP 135/57
[2018-07-17 12:59] VITALS: BP 138/60
[2018-07-17 16:14] VITALS: BP 108/66
[2018-07-17 20:00] VITALS: BP 119/47
[2018-07-18 04:00] VITALS: BP 109/57
[2018-07-18 06:41] LABS: BASOPHILS 0.2 % (0-2); EOSINOPHILS 2.6 % (0-7); HEMATOCRIT 28.7 % (36.0-48.0); HEMOGLOBIN 8.4 g/dL (12-16); IMMATURE GRANULOCYTES 1.2 % (0-5); LYMPHOCYTES 18.8 % (15-50); MCH 24.6 pg (26.0-34.0); MCHC 29.3 g/dL (31.0-37.0); MCV 84.2 fL (80.0-100.0); MEAN PLATELET VOLUME 8.5 fL (7.4-10.4); NEUTROPHILS 69.2 % (40-80); PLATELET COUNT 313 10x3/uL (130-400); RBC 3.41 10x6/uL (4.00-5.40); RDW 16.5 % (11.5-14.5); WBC 10.7 10x3/uL (4.8-10.8)
[2018-07-18 07:04] LABS: ALBUMIN 2.6 g/dL (3.4-5.0); ALKALINE PHOSPHATASE 53 U/L (46-116); BILIRUBIN - TOTAL 0.28 mg/dL (0.2-1.3); CALC OSMOLALITY 280 mosm/kg (275-300); CALCIUM 8.6 mg/dL (8.5-10.1); CARBON DIOXIDE 28.4 mmol/L (21.0-32.0); CHLORIDE - SERUM 102 mmol/L (98-107); CREATININE - SERUM 0.8 mg/dL (0.6-1.3); GLUCOSE 108 mg/dL (74-106); POTASSIUM - SERUM 3.5 mmol/L (3.5-5.1); PROTEIN - SERUM 6.4 g/dL (6.4-8.2); SODIUM 138 mmol/L (136-145); UREA NITROGEN 24 mg/dL (7-18); eGFR NON AFRICAN AMERICAN 79 mL/min (90-120)
[2018-07-18 07:08] LABS: ALT (SGPT) 14 U/L (10-68)
[2018-07-18 09:00] VITALS: BP 106/59
[2018-07-18] MEDS ORDERED: ANUSOL-HC25 MG RC (11:07)
[2018-07-18] MEDS ORDERED: SYNTHROID50 MCG PO (11:08)
[2018-07-18] MEDS ORDERED: NYSTATIN1 PWD TOPICAL (11:08)
[2018-07-18] MEDS ORDERED: PREDNISONE10 MG PO (11:10)
== END 2018-07-18 13:09 | disposition home health service (06) | DRG 207 ==
LOC: D.ER 12:13 → D.ICU 13:24 → D.MS 13:24 → D.EDHOLD 13:24 → D.M3 13:24 → D.ICU 13:36 → D.M3 06-21 12:08 → D.ICU 07-08 15:58 → D.MS 07-10 18:04
PROVIDERS: Emergency Medicine; Family Medicine; Family Medicine Adult Medicine; Internal Medicine Nephrology; Internal Medicine Pulmonary Disease
PROC: 5A1955Z Respiratory Ventilation, Greater than 96 Consecutive Hours (ICD-10-PCS; principal; 2018-06-11)
PROC: 0BH17EZ Insertion of Endotracheal Airway into Trachea, Via Natural or Artificial Opening (ICD-10-PCS; 2018-06-11)
PROC: 05HY33Z Insertion of Infusion Device into Upper Vein, Percutaneous Approach (ICD-10-PCS; 2018-06-12)
PROC: 05H633Z Insertion of Infusion Device into Left Subclavian Vein, Percutaneous Approach (ICD-10-PCS; 2018-06-12)
PROC: 05HN33Z Insertion of Infusion Device into Left Internal Jugular Vein, Percutaneous Approach (ICD-10-PCS; 2018-06-12)
PROC: 3E1F88Z Irrigation of Respiratory Tract using Irrigating Substance, Via Natural or Artificial Opening Endoscopic (ICD-10-PCS; 2018-07-04)
DX: J96.21 Acute and chronic respiratory failure with hypoxia (principal); T80.211A Bloodstream infection due to central venous catheter, initial encounter; I50.33 Acute on chronic diastolic (congestive) heart failure; J15.0 Pneumonia due to Klebsiella pneumoniae; A41.9 Sepsis, unspecified organism; Z68.44 Body mass index [BMI] 60.0-69.9, adult; J44.1 Chronic obstructive pulmonary disease with (acute) exacerbation; N39.0 Urinary tract infection, site not specified; J96.22 Acute and chronic respiratory failure with hypercapnia; E66.01 Morbid (severe) obesity due to excess calories; E87.6 Hypokalemia; E83.42 Hypomagnesemia; E83.39 Other disorders of phosphorus metabolism; K21.9 Gastro-esophageal reflux disease without esophagitis; I11.0 Hypertensive heart disease with heart failure; E11.40 Type 2 diabetes mellitus with diabetic neuropathy, unspecified; D50.9 Iron deficiency anemia, unspecified; J30.9 Allergic rhinitis, unspecified; K75.81 Nonalcoholic steatohepatitis (NASH); G47.33 Obstructive sleep apnea (adult) (pediatric); E03.9 Hypothyroidism, unspecified; G89.29 Other chronic pain; R53.81 Other malaise; E78.5 Hyperlipidemia, unspecified; Y95 Nosocomial condition; Z86.718 Personal history of other venous thrombosis and embolism; J04.10 Acute tracheitis without obstruction

== ENCOUNTER 2018-07-25 19:24 | Inpatient (IN) | payer MEDICARE, MEDICAID ==
[~2018-07-25] VITALS: Ht 152.4 cm; Wt 170.0 kg
[~2018-07-25 19:24] MED LIST changes: +ANUSOL-HC25 MG RC; +SYNTHROID50 MCG PO
[2018-07-25 20:27] LABS: BASOPHILS 0.1 % (0-2); EOSINOPHILS 2.3 % (0-7); HEMATOCRIT 33.2 % (36.0-48.0); HEMOGLOBIN 10.2 g/dL (12-16); IMMATURE GRANULOCYTES 0.4 % (0-5); LYMPHOCYTES 13.1 % (15-50); MCH 25.6 pg (26.0-34.0); MCHC 30.7 g/dL (31.0-37.0); MCV 83.2 fL (80.0-100.0); MEAN PLATELET VOLUME 8.6 fL (7.4-10.4); MONOCYTES 6.7 % (2-11); NEUTROPHILS 77.4 % (40-80); RBC 3.99 10x6/uL (4.00-5.40); RDW 15.6 % (11.5-14.5); WBC 14.1 10x3/uL (4.8-10.8)
[2018-07-25 20:46] LABS: ALBUMIN 2.8 g/dL (3.4-5.0); BILIRUBIN - TOTAL 0.55 mg/dL (0.2-1.3); CREATININE - SERUM 1.2 mg/dL (0.6-1.3); PROTEIN - SERUM 7.6 g/dL (6.4-8.2)
[2018-07-25 20:50] LABS: PLATELET COUNT 231 10x3/uL (130-400)
[2018-07-25 20:53] LABS: ANION GAP 4.3 mmol/L (8-16); CARBON DIOXIDE 43.2 mmol/L (21.0-32.0); POTASSIUM - SERUM 2.5 mmol/L (3.5-5.1)
--- NOTE | 2018-07-25 21:19 | NUR ---
PT GIVEN BLANKET
[2018-07-25 22:30] VITALS: BP 112/46
--- NOTE | 2018-07-25 23:31 | NUR ---
RT AT PT'S BEDSIDE TO GIVE BREATHING TREATMENT.
--- NOTE | 2018-07-26 01:06 | NUR ---
PT RESTING, RR EVEN AND UNLABORED, VSS WILL CONTINUE TO MONITOR.
[2018-07-26 01:30] VITALS: BP 133/53
[2018-07-26 02:53] LABS: APPEARANCE HAZY (CLEAR); BILIRUBIN NEGATIVE (NEGATIVE); COLOR YELLOW (YELLOW); GLUCOSE NEGATIVE (NEGATIVE); KETONE NEGATIVE (NEGATIVE); NITRITE NEGATIVE (NEGATIVE); PROTEIN NEGATIVE (NEGATIVE); UROBILINOGEN NORMAL (NORMAL)
--- NOTE | 2018-07-26 03:04 | NUR ---
PT RESTING, AWAKES TO VERBAL STIMULI, DENIES ANY NEEDS, NO DISTRESS NOTED. WILL CONTINUE TO MONITOR.
[2018-07-26 05:00] VITALS: BP 110/69
--- NOTE | 2018-07-26 05:17 | NUR ---
PT RESTING, RR EVEN AND UNLABORED, VSS, CALL LIGHT WITHIN REACH. WILL CONTINUE TO MONITOR.
[2018-07-26 09:19] LABS: BASOPHILS 0.1 % (0-2); EOSINOPHILS 0.2 % (0-7); HEMATOCRIT 31.5 % (36.0-48.0); HEMOGLOBIN 9.6 g/dL (12-16); IMMATURE GRANULOCYTES 0.6 % (0-5); LYMPHOCYTES 5.5 % (15-50); MCH 25.3 pg (26.0-34.0); MCHC 30.5 g/dL (31.0-37.0); MCV 83.1 fL (80.0-100.0); MEAN PLATELET VOLUME 8.8 fL (7.4-10.4); MONOCYTES 0.8 % (2-11); NEUTROPHILS 92.8 % (40-80); PLATELET COUNT 231 10x3/uL (130-400); RBC 3.79 10x6/uL (4.00-5.40); RDW 15.5 % (11.5-14.5); WBC 12.4 10x3/uL (4.8-10.8)
[2018-07-26 09:23] VITALS: BP 115/52
[2018-07-26 09:33] LABS: ANION GAP 10.6 mmol/L (8-16); CALCIUM 8.4 mg/dL (8.5-10.1); CARBON DIOXIDE 39.5 mmol/L (21.0-32.0); CREATININE - SERUM 1.1 mg/dL (0.6-1.3)
[2018-07-26 09:34] LABS: POTASSIUM - SERUM 3.1 mmol/L (3.5-5.1)
--- NOTE | 2018-07-26 17:16 | MORECARE ---
CASE MANAGEMENT DISCHARGE SUMMARY PATIENT: DOUGLAS HILLS UNIT: [id number] ADM DATE: 07/26/18 AGE: 53 : 63 SEX: F ROOM/BED: D.2102 AUTHOR: AMELIA MCGOVERN PHYSICIAN: REFERRING PHYSICIAN: CHARLIE HARO MD DATE OF SERVICE: 07/26/18 Discharge Plan Patient Name: DOUGLAS HILLS Facility: [facility]:[place] : 1965 Planned Disposition: Home Anticipated Discharge Date: 07/29/18 Discharge Date: Expected LOS: 3 Initial Reviewer: [id number] Initial Review Date: 07/26/2018 Generated: 07/26/18 6:16 pm DCPIA - Discharge Planning Initial Assessment Updated by [email or web address]: Yaritza Carr on 07/26/18 5:15 pm * Is the patient Alert and Oriented? Yes * PCP Dr. Burnett * Pharmacy [facility] * Preadmission Environment Home with Family * ADLs Partial Dependent * Partial ADLs (Assistance needed) Bathing Dressing Medication Management Transfers * Equipment Cane Nebulizer Oxygen Rolling Walker * List name and contact numbers for known caregivers / representatives who currently or will assist patient after discharge: Delfina Li daughter [phone] Kayden Li daughter [phone] * Verbal permission to speak to the caregivers and representatives has been obtained from the patient. Yes * Community resources currently utilized Home Health * Please name any agencies selected above. [facility] * Additional services required to return to the preadmission environment? No * Can the patient safely return to the preadmission environment? Yes * Has this patient been hospitalized within the prior 30 days at any hospital? Yes Patient Name: DOUGLAS HILLS Page [phone] at 1716 All edits/amendments must be made on the electronic document DICTATION DATE: 07/26/181714 REGISTERED ROUTE ASSOCIATE: CLEMENT 07/26/181714 RPT#: [id number] DC DATE: STATUS: ADM IN [facility] [address] [id number] END OF REPORT
--- NOTE | 2018-07-26 17:30 | MORECARE ---
CASE MANAGEMENT DISCHARGE SUMMARY PATIENT: DOUGLAS HILLS UNIT: [id number] ADM DATE: 07/26/18 AGE: 53 : 63 SEX: F ROOM/BED: D.2102 AUTHOR: AMELIA MCGOVERN PHYSICIAN: REFERRING PHYSICIAN: CHARLIE HARO MD DATE OF SERVICE: 07/26/18 Discharge Plan Patient Name: DOUGLAS HILLS Facility: [facility]:[place] : 1965 Planned Disposition: Home Anticipated Discharge Date: 07/29/18 Discharge Date: Expected LOS: 3 Initial Reviewer: [email or web address] Initial Review Date: 07/26/2018 Generated: 07/26/18 6:30 pm DCP- Discharge Planning Updated by [email or web address]: Yaritza Carr on 07/26/18 4:[address] Patient Name: DOUGLAS HILLS Admission Status: ER Accout number: [id number] Admission Date: 07-26-2018 : 1965 Admission Diagnosis:CHRONIC OBSTRUCTIVE PULMONARY DISEASE W (ACUTE) EXACERB Attending: CHARLIE HARO Current LOS: 1 Anticipated DC Date: 07-29-2018 Planned Disposition: Home Primary Insurance: [facility] MEDICARE SOLUTIONS Discharge Planning Comments: CM met with patient to complete initial dc planning assessment. CM educated patient on the CM role and verbal consent given by patient to complete assessment. Patient lives at home with her daughter who is her primary caregiver. CM discussed hospice services and provided her all the brochures of the local hospice agencies. She stated she would read the brochures, discuss with her daughter, and give her daughter my phone number to call to discuss. She stated her daughter had a new phone number and she didn't have it with her but would call her grand-daughter to get it and have her daughter call me. CM gave patient my contact information to give to her daughter. At discharge patient plans to return home and feels this is a safe discharge. Patient has [facility] currently. CM will continue to follow and will assist as needed with dc plans/needs. See below for more assessment information. Machine Shop Worker: Yaritza Carr RN, [facility] DCPIA - Discharge Planning Initial Assessment Updated by [email or web address]: Yaritza Carr on 07/26/18 5:15 pm * Is the patient Alert and Oriented? Yes * PCP Dr. Burnett * Pharmacy [facility] on [address] * Preadmission Environment Home with Family * ADLs Partial Dependent * Partial ADLs (Assistance needed) Bathing Dressing Medication Management Transfers * Equipment Cane Nebulizer Oxygen Rolling Walker * List name and contact numbers for known caregivers / representatives who currently or will assist patient after discharge: Delfina Li daughter [phone] Kayden Li daughter [phone] * Verbal permission to speak to the caregivers and representatives has been obtained from the patient. Yes * Community resources currently utilized Home Health * Please name any agencies selected above. [facility] * Additional services required to return to the preadmission environment? No * Can the patient safely return to the preadmission environment? Yes * Has this patient been hospitalized within the prior 30 days at any hospital? Yes Last DP export: 07/26/18 4:16 pm Patient Name: DOUGLAS HILLS Page 65589 at 1730 All edits/amendments must be made on the electronic document DICTATION DATE: 07/26/181728 CORRECTIONS NURSE: CLEMENT 07/26/181728 RPT#: [id number] DC DATE: STATUS: ADM IN [facility] [address] [place] [address] END OF REPORT
--- NOTE | 2018-07-26 19:45 | NUR ---
RESUMING CARE. PT IS ALERT LAYING IN THE BED WATCHING TV. NO C/O VOICED AT THIS TIME. BED IN THE LOWEST POSITION WITH CALL LIGHT IN REACH. WILL CONTINUE TO MONITOR PT AND FOLLOW PLAN OF CARE.
[2018-07-26 21:08] VITALS: BP 126/43
--- NOTE | 2018-07-27 04:39 | NUR ---
PT RESTING COMFORTABLY IN BED. RR EVEN AND UL, NO S/S OF DISTRESS. BED IN LOWEST POSITION, SR UP X2, CL IN REACH.
[2018-07-27 05:41] LABS: BASOPHILS 0 % (0-2); EOSINOPHILS 0 % (0-7); HEMOGLOBIN 8.7 g/dL (12-16); IMMATURE GRANULOCYTES 0.5 % (0-5); LYMPHOCYTES 5.4 % (15-50); MCV 83.3 fL (80.0-100.0); MEAN PLATELET VOLUME 9.9 fL (7.4-10.4); MONOCYTES 2.7 % (2-11); NEUTROPHILS 91.4 % (40-80); RBC 3.48 10x6/uL (4.00-5.40); RDW 15.2 % (11.5-14.5); WBC 10.9 10x3/uL (4.8-10.8)
[2018-07-27 05:43] LABS: ANION GAP 12.2 mmol/L (8-16); CARBON DIOXIDE 34.2 mmol/L (21.0-32.0); MAGNESIUM - SERUM 1.5 mg/dL (1.8-2.4); PHOSPHOROUS 3.5 mg/dL (2.5-4.9); POTASSIUM - SERUM 3.4 mmol/L (3.5-5.1)
[2018-07-27 05:47] LABS: PLATELET COUNT 161 10x3/uL (130-400)
--- NOTE | 2018-07-27 07:10 | NUR ---
RECEIVED REPORT. ASSUMED CARE OF PATIENT. RESTING IN BED WITH EYES OPEN. RESP EVEN AND UNLABORED. NO DISTRESS.
--- NOTE | 2018-07-27 07:10 | NUR ---
RECEIVED REPORT. ASSUMED CARE OF PATIENT. CALL LIGHT WITHIN REACH. NO DISTRESS. DAUGHTER AT BEDSIDE. RECIEVING BREATHING TREATMENT AT THIS TIME.
[2018-07-27 09:01] VITALS: BP 122/59
--- NOTE | 2018-07-27 09:49 | NUR ---
MEDICATED FOR PAIN AT THIS TIME. NO DISTRESS.
[2018-07-27 10:15] VITALS: Ht 152.4 cm; Wt 170.0 kg
--- NOTE | 2018-07-27 11:06 | NUR ---
METAL CRAFTS TEACHER MADE AWARE OF PATIENTS FSBS OF 506. NO NEW ORDERS. GIVE 28 UNITS ORDERED PER SLIDING SCALE.
--- NOTE | 2018-07-27 12:00 | NUR ---
IV TO RIGHT WRIST DISLODGED. CATHETER TIP INTACT. NO BLEEDING FROM SITE AFTER PRESSURE APPLIED. 2X2 GAUZE APPLIED AND SECURED WITH TAPE. 22 GAUGE IV PLACED TO RIGHT HAND X 1 STICK. GOOD BLOOD RETURN, EASY FLUSH. TAPED, DATED AND SECURED. TOLERATED IV SITE PLACMENT WELL. 20 GAUGE TO LEFT FOREARM REMVOED, WOULD NOT FLUSH. CATHETER TIP INTACT. NO BLEEDING FROM SITE. TOLERATED IV REMOVAL WELL. PATIENT WITH LEFT UPPER ARM PICC. UNSURE WHY WE ARE NOT USING PICC AND PATIENT CAN NOT TELL THIS BEAD WIRE INSULATOR.
[2018-07-27 14:03] VITALS: BP 108/40
--- NOTE | 2018-07-27 15:00 | NUR ---
PATIENTS BROTHER CALLED UP HERE TO THE NURSES STATION VERY UPSET, SO UPSET THAT THIS GIRL FRIDAY COULD BARELY UNDERSTAND WHAT HE WAS SAYING SO THIS GIRL FRIDAY SWITCHED PHONES TO BETTER UNDERSTAND HIM. PATIENTS BROTHER PROCEEDED TO SAY THAT THE PATIENT TOLD HIM AND WE "HOSPITAL" ARE ALLOWING THE PATIENT TO EAT MUCH SALT SHE WANTS, AND ALSO TO EAT ANYTHING AT ALL THAT SHE WANTS, AND THAT SHE DOESN'T NEED TO LOOSE WEIGHT. PATIENTS BROTHER STATES THAT HE WILL GET IN THE CAR AND COME TO THE HOSPITAL IF NEEDED. INFORMED PATIENTS BROTHER THAT WE ARE NOT ALLOWING THE PATIENT TO EAT WHATEVER SHE WANTS AND HE STARTED SCREAMING AT THIS GIRL FRIDAY THAT THE PATIENT IS TELLING HIM OTHERWISE. INFORMED THE PATIENTS BROTHER THAT HE IS NOT ON HER LIST OF PEOPLE TO DISCUSS HER CARE WITH. PATIENTS BROTHER STATED "WELL SHE IS TELLING ME DIFFERENT ABOUT WHAT YALL ARE LETTING HER EAT". THIS GIRL FRIDAY TOLD THIS PERSON IN A FOSTER VOICE, HIS SISTER IS ALERT/ORIENTED AND THIS GIRL FRIDAY WILL NOT BE THE GO BETWEEN PERSON OF HE SAID SHE SAID. PATIENTS BROTHER HUNG UP ON THIS GIRL FRIDAY. SPOKE WITH PATIENT ABOUT HER BROTHER CALLING [facility] OF LETTING HER EAT MUCH AND WHATEVER SHE WANTS. PATIENT STATES SHE DID NOT SAY THAT AND DID NOT WANT ANYONE TO SPEAK TO HER BROTHER ABOUT HER CARE. SHE SAID SHE TALK TO HIM BUT DID NOT KNOW THAT HE WOULD CALL UP HER CAUSING PROBLEMS.
--- NOTE | 2018-07-27 16:54 | NUR ---
FSBS 399. 24 UNITS HUMULIN ADMINISTERED PER SLIDING SCALE. NO DISTRESS.
[2018-07-27 17:44] VITALS: BP 109/44
--- NOTE | 2018-07-27 17:57 | NUR ---
PATIENTS BROTHERS NUMBER [phone]
--- NOTE | 2018-07-27 19:30 | NUR ---
REPORT RECEIVED. PT SITTING UP IN BED WITH EYES OPEN, RR EVEN AND UNLABORED. OXYGEN AT 3 LITERS BY NASAL CANNULA. BED IN LOW POSITION. NO S/S OF DISTRESS. DENIES NEEDS. CALL LIGHT IN REACH. WILL CONTINUE TO MONITOR.
[2018-07-27 20:23] VITALS: BP 109/44
--- NOTE | 2018-07-27 22:14 | NUR ---
CALLED DOUG BOOTHE RN REGARDING PT LEFT ARM MIDLINE. SHE EXAMINED AND STATED IT IS SAFE TO USE.
--- NOTE | 2018-07-27 23:34 | NUR ---
ADMINISTERED ORDERED ANALGESIC FOR COMPLAINTS OF BACK PAIN, PT STATES PAIN OF A 7 ON A SCALE OF 0-10. PT STATES SHE HAS HAD ONGOING BACK PAIN FOR SEVERAL YEARS.
[2018-07-28 01:36] VITALS: BP 119/55
--- NOTE | 2018-07-28 02:00 | NUR ---
PT RESTING IN BED WITH NO DISTRESS. CALL LIGHT IN REACH. MONITOR AND CPOC.
[2018-07-28 05:34] VITALS: BP 131/62
--- NOTE | 2018-07-28 06:34 | NUR ---
ADMINISTERED ORDERED ANALGESIC FOR COMPLAINTS OF PAIN IN BACK, PT STATES PAIN OF A 7 ON A SCALE OF 0-10.
--- NOTE | 2018-07-28 07:00 | NUR ---
RECEIVED REPORT. ASSUMED CARE OF PATIENT. PATIENT USING HER HAIRBRUSH TO SCRATCH HER LEGS. COUNSELED ON NOT DOING THAT SHE WILL CAUSE HARM TO HER SKIN. PATIENT STATES SHE CAN'T HELP IT. NO DISTRESS. CALL LIGHT WITHIN REACH.
[2018-07-28 08:31] VITALS: BP 152/59
--- NOTE | 2018-07-28 10:27 | NUR ---
MEDICATED FOR RASH AND ITCHING AT THIS TIME. CALL PLACED TO .
--- NOTE | 2018-07-28 10:35 | NUR ---
SPOKE WITH . NEW ORDERS TO STOP TEFLARO. DISCUSSED THAT THE RASH IS COVERING LARGER AREAS AND DOES NOT JUST LOOK LIKE SPOTS. DISCUSSED FSBS STILL BEING VERY ELEVATED YESTERDAY INTO THE 500 RANGE. ORDERS ENTERED TO STOP TEFLARO.
[2018-07-28 11:43] LABS: ANION GAP 9.2 mmol/L (8-16); CARBON DIOXIDE 37.1 mmol/L (21.0-32.0); POTASSIUM - SERUM 3.3 mmol/L (3.5-5.1)
[2018-07-28 11:56] VITALS: BP 100/47
[2018-07-28 11:56] LABS: BASOPHILS 0 % (0-2); EOSINOPHILS 0.4 % (0-7); HEMATOCRIT 29.9 % (36.0-48.0); HEMOGLOBIN 8.8 g/dL (12-16); IMMATURE GRANULOCYTES 0.3 % (0-5); LYMPHOCYTES 8.5 % (15-50); MCH 24.6 pg (26.0-34.0); MCHC 29.4 g/dL (31.0-37.0); MCV 83.8 fL (80.0-100.0); MEAN PLATELET VOLUME 9.7 fL (7.4-10.4); MONOCYTES 8.6 % (2-11); NEUTROPHILS 82.2 % (40-80); PLATELET COUNT 171 10x3/uL (130-400); RBC 3.57 10x6/uL (4.00-5.40); RDW 15.8 % (11.5-14.5); WBC 14.5 10x3/uL (4.8-10.8)
[2018-07-28 11:57] LABS: CREATININE - SERUM 1.3 mg/dL (0.6-1.3)
--- NOTE | 2018-07-28 12:19 | NUR ---
FSBS 241. 12 UNITS HUMULIN ADMINISTERED ORDERED. NO DISTRESS.
--- NOTE | 2018-07-28 13:47 | NUR ---
MEDICATED FOR PAIN. NO DISTRESS.
--- NOTE | 2018-07-28 14:24 | NUR ---
RESTING WELL AFTER MEDICATED FOR PAIN. NO DISTRESS.
[2018-07-28 15:35] VITALS: BP 107/62
--- NOTE | 2018-07-28 16:36 | NUR ---
FSBS 238. 12 UNITS HUMULIN ADMINISTERED PER SLIDING SCALE. NO DISTRESS. CALL LIGHT WITHIN REACH.
--- NOTE | 2018-07-28 18:17 | NUR ---
RESTING IN BED. URINAL EMPTYED. NO DISTRESS. ATTENTION TOWARD TELEVISION. CALL LIGHT WITHIN REACH.
--- NOTE | 2018-07-28 19:10 | NUR ---
REPORT RECEIVED. PT SITTING UP IN BED WITH EYES OPEN, RR EVEN AND UNLABORED. BED IN LOW POSITION. NO S/S OF DISTRESS. OXYGEN AT 3 LITERS BY NASAL CANNULA. DENIES NEEDS. CALL LIGHT IN REACH. WILL CONTINUE TO MONITOR.
[2018-07-28 20:00] VITALS: BP 102/39
--- NOTE | 2018-07-28 21:01 | NUR ---
ADMINISTERED ORDERED ANALGESIC FOR COMPLAINTS OF PAIN IN BACK, PT STATES PAIN OF AN 8 ON A SCALE OF 0-10.
[2018-07-29] VITALS: BP 168/87; BP 91/49
--- NOTE | 2018-07-29 01:55 | NUR ---
NOTED YELLOW DRAINAGE IN PT LEFT UPPER ARM MIDLINE DRESSING, I THEN ATTEMPTED TO CHANGE THE DRESSING WHEN I REALIZED THE MIDLINE CATHETER WAS ONLY 0.5 CM INTO THE PT ARM AND WAS NO LONGER PROPERLY SEATED. THEREFORE I REMOVED THE MIDLINE CATHETER USING STERILE TECHNIQUE AND APPLIED A CLEAN DRESSING. I THEN SIGNED MY INITIALS AND DATED. PT STATES SHE HAD THE MIDLINE CATHETER SINCE THE END OF JUNE AND WAS SENT HOME ON IV MEDICATIONS IN A PREVIOUS HOSPITAL STAY. THERE WERE NO S/S OF BLEEDING NOTED AT SITE. PT DENIES ANY DISCOMFORT IN AREA. WILL PASS ON TO DAY SHIFT. WILL NOTIFY CHARGE NURSE.
--- NOTE | 2018-07-29 03:10 | NUR ---
RESTING IN BED WITH NO DISTRESS. RESPS EVEN/NONLABORED. CALL LIGHT IN REACH. MONITOR AND CPOC.
[2018-07-29 04:00] VITALS: BP 96/44
--- NOTE | 2018-07-29 05:27 | NUR ---
ADMINISTERED ORDERED ANALGESIC FOR PT COMPLAINTS OF BACK PAIN, PT STATES PAIN OF A 7 ON A SCALE OF 0-10.
[2018-07-29 05:50] LABS: BASOPHILS 0.1 % (0-2); EOSINOPHILS 2.5 % (0-7); HEMATOCRIT 31.8 % (36.0-48.0); HEMOGLOBIN 9.1 g/dL (12-16); IMMATURE GRANULOCYTES 0.4 % (0-5); LYMPHOCYTES 10.5 % (15-50); MCH 24.9 pg (26.0-34.0); MCHC 28.6 g/dL (31.0-37.0); MEAN PLATELET VOLUME 8.9 fL (7.4-10.4); NEUTROPHILS 78.5 % (40-80); RBC 3.66 10x6/uL (4.00-5.40); RDW 16.3 % (11.5-14.5); WBC 11.4 10x3/uL (4.8-10.8)
[2018-07-29 06:11] LABS: ANION GAP 8.6 mmol/L (8-16); CALCIUM 8.4 mg/dL (8.5-10.1); POTASSIUM - SERUM 3.6 mmol/L (3.5-5.1)
[2018-07-29 06:41] LABS: MCV 86.9 fL (80.0-100.0); PLATELET COUNT 272 10x3/uL (130-400)
[2018-07-29 08:37] VITALS: BP 111/72
--- NOTE | 2018-07-29 11:21 | NUR ---
RESTING QUIETLY NAD NOTED
[2018-07-29 11:56] VITALS: BP 103/47
[2018-07-29 15:20] VITALS: BP 115/55
--- NOTE | 2018-07-29 19:45 | NUR ---
REPORT RECEIVED. PATIENT LAYING IN BED WITH EYES OPEN. ALERT AND ORIENTED. IV TO RIGHT HAND INFUSING NS @ 100 ML/HR. HESS CATHETER DRAINING YELLOW URINE TO GRAVITY. O2 AT 2.5 L NC. TELEMETRY ON. GENERALIZED RASH. REDNESS UNDER BREASTS AND ABDOMINAL FOLDS. PATIENT REFUSED SCD'S. PATIENT DENIES HAVING ANY NEEDS AT THIS TIME. BED IN LOWEST POSITION. SIDE RAILS UP. CALL LIGHT IN REACH. WILL CONTINUE PLAN OF CARE.
[2018-07-29 20:00] VITALS: BP 106/52
--- NOTE | 2018-07-29 21:55 | NUR ---
PATIENT COMPLAINS OF PAIN IN BACK, NECK, AND SHOULDER. PAIN LEVEL RATED AT 8 ON SCALE 0 TO 10. PRN NORCO GIVEN FOR PAIN. WILL CONTINUE TO MONITOR.
[2018-07-30] VITALS: BP 94/42
--- NOTE | 2018-07-30 01:30 | NUR ---
HESS BAG LEAKING. HESS BAG CHANGED.
[2018-07-30 04:00] VITALS: BP 102/45
--- NOTE | 2018-07-30 04:00 | NUR ---
PATIENT RESTING IN BED WITH EYES CLOSED AND BIPAP ON. NO SIGNS OF DISTRESS. BED IN LOWEST POSITION. SIDE RAILS UP. CALL LIGHT IN REACH. WILL CONTINUE PLAN OF CARE.
[2018-07-30 07:08] LABS: BASOPHILS 0.1 % (0-2); EOSINOPHILS 3.1 % (0-7); HEMOGLOBIN 8.7 g/dL (12-16); IMMATURE GRANULOCYTES 0.8 % (0-5); LYMPHOCYTES 15.9 % (15-50); MCH 24.7 pg (26.0-34.0); MCV 85.2 fL (80.0-100.0); MEAN PLATELET VOLUME 8.9 fL (7.4-10.4); MONOCYTES 5.4 % (2-11); NEUTROPHILS 74.7 % (40-80); RBC 3.52 10x6/uL (4.00-5.40); RDW 16.6 % (11.5-14.5); WBC 10.2 10x3/uL (4.8-10.8)
[2018-07-30 07:20] LABS: PLATELET COUNT 211 10x3/uL (130-400)
[2018-07-30 07:25] LABS: ANION GAP 6.9 mmol/L (8-16); CALCIUM 7.1 mg/dL (8.5-10.1); CREATININE - SERUM 1.2 mg/dL (0.6-1.3); POTASSIUM - SERUM 3.5 mmol/L (3.5-5.1)
[2018-07-30 07:36] LABS: CARBON DIOXIDE 40.6 mmol/L (21.0-32.0)
--- NOTE | 2018-07-30 07:37 | NUR ---
RECEIVED CRITICAL FROM LAB, CO2 OF 40.6. WILL NOTIFY PHYSICIAN.
--- NOTE | 2018-07-30 07:38 | NUR ---
REPORT RECEIVED. WILL CONTINUE WITH POC. PT CURRENTLY LYING SEMI FOWLERS. CALL LIGHT W/I REACH. RR LABORED ON EXERTION AND WITH ACTIVITY ON 2.5L 02. NS INFUSING @100ML/HR VIA R.HAND PIV. PT IS AAO AND OUT OF BED WITH MEALS. PT DENIES ANY NEEDS AT THIS TIME. WILL CTM.
[2018-07-30 08:19] VITALS: BP 90/46
--- NOTE | 2018-07-30 09:44 | NUR ---
CALLED PHARMACY @0818 AND @0937 FOR SLOW MAG OX TABLET. STILL HAVE NOT RECEIVED MEDICATION @0945. WILL ADMINISTER AM MEDICATIONS AND ADMINISTER THAT PARTICULAR MED ONCE RECEIVED.
--- NOTE | 2018-07-30 10:39 | NUR ---
RESTING QUIETLY NAD NOTED
[2018-07-30 11:44] VITALS: BP 93/58
[2018-07-30 16:36] VITALS: BP 80/44
--- NOTE | 2018-07-30 16:43 | NUR ---
PT TEMP IS 101.4. BLOOD CULTURES ORDERED PER NURSING MESSAGE. WILL CTM. TYLENOL ADMINISTERED PER HILARIA HERNÁNDEZ ORDERS.
[2018-07-30 19:00] VITALS: BP 126/54
--- NOTE | 2018-07-30 19:30 | NUR ---
INITIAL ROUNDS COMPLETED. HESS DRAINING YELLOW URINE. NS INFUSING INTO R MIDLINE AT 100 ML/HR. DRESSING C/D/I, IV PATENT. PT DENIES ANY PAIN OR DISCOMFORT AT THIS TIME. GENERALIZED RASH/REDNESS NOTED. VSS. NO S/S OF DISTRESS. PT ON 2.5 L OF 02 VIA NC. SR UP X2, CL IN REACH, BED IN LOWEST POSITION. WCTM AND FOLLOW POC.
[2018-07-31] VITALS: BP 115/52
[2018-07-31 04:00] VITALS: BP 100/47
[2018-07-31 06:30] LABS: BASOPHILS 0.1 % (0-2); EOSINOPHILS 2.7 % (0-7); HEMATOCRIT 29.6 % (36.0-48.0); HEMOGLOBIN 8.6 g/dL (12-16); LYMPHOCYTES 12.6 % (15-50); MCH 24.8 pg (26.0-34.0); MCHC 29.1 g/dL (31.0-37.0); MCV 85.3 fL (80.0-100.0); MEAN PLATELET VOLUME 8.8 fL (7.4-10.4); MONOCYTES 4.9 % (2-11); NEUTROPHILS 78.7 % (40-80); PLATELET COUNT 213 10x3/uL (130-400); RBC 3.47 10x6/uL (4.00-5.40); RDW 16.8 % (11.5-14.5)
[2018-07-31 06:43] LABS: ANION GAP 10.1 mmol/L (8-16); CALCIUM 7.1 mg/dL (8.5-10.1); CREATININE - SERUM 1.1 mg/dL (0.6-1.3); POTASSIUM - SERUM 3.3 mmol/L (3.5-5.1)
[2018-07-31 06:51] LABS: CARBON DIOXIDE 41.2 mmol/L (21.0-32.0)
[2018-07-31 06:52] LABS: WBC 15.1 10x3/uL (4.8-10.8)
--- NOTE | 2018-07-31 07:29 | NUR ---
REPORT RECEIVED. WILL CONTINUE WITH POC. PT CURRENTLY LYING SUPINE. CALL LIGHT W/I REACH. PT IS AAO AND BEDFAST. RR EVEN AND UNLABORED ON 2.5L 02. NS INFUSING @100ML/HR VIA R.MIDLINE. PT DENIES ANY NEEDS AT THIS TIME. WILL CTM.
[2018-07-31 08:25] VITALS: BP 91/54
--- NOTE | 2018-07-31 10:25 | NUR ---
AM MEDICATIONS ADMINISTERED. FSBS @0945 WAS 229 AND PT RECEIVED SCHEDULED 20 UNITS OF LANTUS. PT REFUSED SUPPOSITORY. NS INFUSING @100ML/HR VIA R.MIDLINE. RIGHT UPPER ARM MIDLINE DRESSING CHANGED AND DATED. WILL CTM.
--- NOTE | 2018-07-31 10:38 | NUR ---
RESP UL ON . IV PATENT. CALL LIGHT IN REACH. WILL CONT. PLAN OF CARE.
[2018-07-31 11:53] VITALS: BP 101/53
[2018-07-31 16:36] VITALS: BP 122/40
--- NOTE | 2018-07-31 16:48 | MORECARE ---
CASE MANAGEMENT DISCHARGE SUMMARY PATIENT: DOUGLAS HILLS UNIT: [id number] ADM DATE: 07/26/18 AGE: 53 : 63 SEX: F ROOM/BED: D.2102 AUTHOR: AMELIA MCGOVERN PHYSICIAN: REFERRING PHYSICIAN: CHARLIE HARO MD DATE OF SERVICE: 07/31/18 Discharge Plan Patient Name: DOUGLAS HILLS Facility: [facility]:[place] : 1965 Planned Disposition: Home with Hospice Anticipated Discharge Date: 08/01/18 Discharge Date: Expected LOS: 6 Initial Reviewer: [id number] Initial Review Date: 07/26/2018 Generated: 07/31/18 5:48 pm Comments DCP- Discharge Planning Updated by [email or web address]: Davin Osman on 07/31/18 3:[address] Patient Name: DOUGLAS HILLS Encounter No: [id number] : 1965 Primary Insurance: [facility] MEDICARE SOLUTIONS Anticipated DC Date: 08-01-2018 Planned Disposition: Home with Hospice External Planned Provider: [facility] DCP follow-up note: CM RECEIVED REQUEST TO SPEAK TO PT IN ROOM. CM MET WITH PT IN ROOM TO DISCUSS DISCHARGE PLANNING AND NEEDS. PT REPORTS SPEAKING TO HER DAUGHTER AND HAS DECIDED SHE WANTS HOME HOSPICE AT DISCHARGE. CM OFFERED HOSPICE INFORMATION, PT REPORTS HAVING HOSPICE INFORMATION ALREADY AND [facility]. CM NOTIFIED JOSE SHAW, OBTAINED HOSPICE CONSULT ORDER. CM CALLED LETICIA AT [facility], , PROVIDED REFERRAL INFORMATION. CM FAXED REFERRAL TO [facility] AT [phone]. NURSE CELSO OF [facility] TO MEET WITH PT LATER THIS EVENING, PT REPORTS WANTING HOSPITAL BED. LETICIA OF [facility] NOTIFIED OF PT'S REQUEST FOR HOME HOSPITAL BED. CM WAITING HOSPICE TO MEET WITH PT TODAY AND FOR PT'S DECISION REGARDING HOME HOSPICE CARE WITH [facility]. Davin Osman, CASE MANAGEMENT DCP- Discharge Planning Updated by [id number]: Yaritza Carr on 07/26/18 4:[address] Patient Name: DOUGLAS HILLS Admission Status: ER Accout number: [id number] Admission Date: 07-26-2018 : 1965 Admission Diagnosis:CHRONIC OBSTRUCTIVE PULMONARY DISEASE W (ACUTE) EXACERB Attending: CHARLIE HARO Current LOS: 1 Anticipated DC Date: 07-29-2018 Planned Disposition: Home Primary Insurance: [facility] MEDICARE SOLUTIONS Discharge Planning Comments: CM met with patient to complete initial dc planning assessment. CM educated patient on the CM role and verbal consent given by patient to complete assessment. Patient lives at home with her daughter who is her primary caregiver. CM discussed hospice services and provided her all the brochures of the local hospice agencies. She stated she would read the brochures, discuss with her daughter, and give her daughter my phone number to call to discuss. She stated her daughter had a new phone number and she didn't have it with her but would call her grand-daughter to get it and have her daughter call me. CM gave patient my contact information to give to her daughter. At discharge patient plans to return home and feels this is a safe discharge. Patient has [facility] currently. CM will continue to follow and will assist as needed with dc plans/needs. See below for more assessment information. Product Picker: Yaritza Carr RN, [facility] DCPIA - Discharge Planning Initial Assessment Updated by [email or web address]: Yaritza Carr on 07/26/18 5:15 pm * Is the patient Alert and Oriented? Yes * PCP Dr. Burnett * Pharmacy [facility] on [facility] * Preadmission Environment Home with Family * ADLs Partial Dependent * Partial ADLs (Assistance needed) Bathing Dressing Medication Management Transfers * Equipment Cane Nebulizer Oxygen Rolling Walker * List name and contact numbers for known caregivers / representatives who currently or will assist patient after discharge: Delfina Li daughter [phone] Kayden Li daughter [phone] * Verbal permission to speak to the caregivers and representatives has been obtained from the patient. Yes * Community resources currently utilized Home Health * Please name any agencies selected above. [facility] * Additional services required to return to the preadmission environment? No * Can the patient safely return to the preadmission environment? Yes * Has this patient been hospitalized within the prior 30 days at any hospital? Yes External Providers External Provider: [facility] Next Contact Date: 07/31/2018 Service Request Date: Service Type: Resolution: Reviewer: Comments: Coverage Notice Reviewer: [email or web address] - Davin Osman Notice Issued Date-Time: 07/31/2018 14:45 Notice Type: IM Discharge Notice Notice Delivered To: Patient Relationship to Patient: Tax Credit Leasing Consultant Name: Delivery Method: HAND - Hand Delivered Adrianne Days: Prior Verbal Notification: Recipient Understood Notice: Yes Recipient Signature: Yes Med Rec Note Co-signed by Attending: Coverage Notice Comment: Last DP export: 07/26/18 4:30 pm Patient Name: DOUGLAS HILLS Page 11385 at 1648 All edits/amendments must be made on the electronic document DICTATION DATE: 07/31/181646 DOWEL INSPECTOR: CLEMENT 07/31/181646 RPT#: [id number] DC DATE: STATUS: ADM IN [facility] [address] [place] [address] END OF REPORT
--- NOTE | 2018-07-31 18:22 | NUR ---
PT LYING SUPINE. CALL LIGHT W/I REACH. PT IS AAO. RR EVEN AND UNLABORED ON 2.5L 02. NS INFUSING @100ML/HR VIA R.MIDLINE. PT DENIES ANY NEEDS AT THIS TIME. WILL PASS REPORT AND CONTINUE WITH POC.
--- NOTE | 2018-07-31 19:10 | NUR ---
AROUSES TO VOICE SRX2 BED LOW CALL LIGHT IS IN REACH...ABLE TO TURN AND SHIFT WIEGHT WELL IN BED RT MIDLINE INTACT WITH CLEAN DRSG...NO NEEDS AT THIS TIME
[2018-07-31 20:04] VITALS: BP 122/50
--- NOTE | 2018-07-31 20:13 | NUR ---
COMPLAINT OF ITCHING AND PAIN PRN GIVEN FOR BOTH ALERT AND ORIENTED CALL LIGHT IN REACH
[2018-08-01] VITALS: BP 90/49
--- NOTE | 2018-08-01 03:28 | NUR ---
BED LOW SRX2 CALL LIGHT IN REACH.....BIPAP BEING USED BY PT
[2018-08-01 04:00] VITALS: BP 139/52
[2018-08-01 05:37] LABS: HEMATOCRIT 27.8 % (36.0-48.0); HEMOGLOBIN 8.4 g/dL (12-16); MCH 25.3 pg (26.0-34.0); MCHC 30.2 g/dL (31.0-37.0); MCV 83.7 fL (80.0-100.0); MEAN PLATELET VOLUME 8.3 fL (7.4-10.4); NEUTROPHILS 76.4 % (40-80); RBC 3.32 10x6/uL (4.00-5.40); RDW 15.1 % (11.5-14.5)
[2018-08-01 05:39] LABS: PLATELET COUNT 261 10x3/uL (130-400); WBC 11.1 10x3/uL (4.8-10.8)
[2018-08-01 05:46] LABS: ANION GAP 8.5 mmol/L (8-16); CALCIUM 7.4 mg/dL (8.5-10.1); CARBON DIOXIDE 39.9 mmol/L (21.0-32.0); CREATININE - SERUM 1.2 mg/dL (0.6-1.3); POTASSIUM - SERUM 3.4 mmol/L (3.5-5.1)
--- NOTE | 2018-08-01 07:00 | NUR ---
RESTING QUIETLY IN BED, ALERT, ORIENTED, TALKATIVE, DENIED PAIN/NEEDS, STATED THAT SHE RECEIVED PAIN MEDS EVERY FOUR HOURS, MIDLINE RIGHT UPPER ARM INFUSING FLUIDS ORDERED. CALL LIGHT AT HAND, INSTRUCTED TO CALL WITH NEEDS.
[2018-08-01 07:58] VITALS: BP 107/51
--- NOTE | 2018-08-01 08:46 | MORECARE ---
CASE MANAGEMENT DISCHARGE SUMMARY PATIENT: DOUGLAS HILLS UNIT: [id number] ADM DATE: 07/26/18 AGE: 53 : 63 SEX: F ROOM/BED: D.2102 AUTHOR: FROILAN,DOC PHYSICIAN: REFERRING PHYSICIAN: CHARLIE HARO MD DATE OF SERVICE: 08/01/18 Discharge Plan Patient Name: DOUGLAS HILLS Facility: [facility]:[place] : 1965 Planned Disposition: Home with Home Health Anticipated Discharge Date: 08/01/18 Discharge Date: Expected LOS: 6 Initial Reviewer: [id number] Initial Review Date: 07/26/2018 Generated: 08/01/18 9:46 am Comments DCP- Discharge Planning Updated by [id number]: Davin Osman on 08/01/18 7:[address] Patient Name: DOUGLAS HILLS Encounter No: [id number] : 1965 Primary Insurance: C MEDICARE SOLUTIONS Anticipated DC Date: 08-01-2018 Planned Disposition: Home with Home Health External Planned Provider: [facility] DCP follow-up note: CM RECEIVED MESSAGE FROM AMY OF [facility]; THEY MET WITH PT LAST EVENING AND AFTER DISCUSSION AND ANSWERING PT'S QUESTIONS, PT DECLINES HOSPICE CARE. PT HAS DECLINED HOSPICE CARE. FOR DISCHARGE HOME WITH DAUGHTER AND [facility], NOTIFY [facility] AT [phone], FAX DISCHARGE INFORMATION TO [facility] AT [phone]. CM TO FOLLOW AND ASSIST NEEDED. CARMEN Fernandez DCP- Discharge Planning Updated by [email or web address]: Davin Osman on 07/31/18 3:[address] Patient Name: DOUGLAS HILLS Encounter No: [id number] : 1965 Primary Insurance: [facility] MEDICARE SOLUTIONS Anticipated DC Date: 08-01-2018 Planned Disposition: Home with Hospice External [facility] DCP follow-up note: CM RECEIVED REQUEST TO SPEAK TO PT IN ROOM. CM MET WITH PT IN ROOM TO DISCUSS DISCHARGE PLANNING AND NEEDS. PT REPORTS SPEAKING TO HER DAUGHTER AND HAS DECIDED SHE WANTS HOME HOSPICE AT DISCHARGE. CM OFFERED HOSPICE INFORMATION, PT REPORTS HAVING HOSPICE INFORMATION ALREADY AND [facility] CM NOTIFIED JOSE SHAW, OBTAINED HOSPICE CONSULT ORDER. CM CALLED LETICIA AT [facility], , PROVIDED REFERRAL INFORMATION. CM FAXED REFERRAL TO [facility] AT [phone]. NURSE CELSO OF [facility] TO MEET WITH PT LATER THIS EVENING, PT REPORTS WANTING HOSPITAL BED. LETICIA OF [facility] NOTIFIED OF PT'S REQUEST FOR HOME HOSPITAL BED. IMPORTANT MESSAGE FROM MEDICARE PROVIDED AND EXPLAINED. CM WAITING HOSPICE TO MEET WITH PT TODAY AND FOR PT'S DECISION REGARDING HOME HOSPICE CARE WITH [facility]. Davin Osman, CASE MANAGEMENT DCP- Discharge Planning Updated by [id number]: Yaritza Carr on 07/26/18 4:[address] Patient Name: DOUGLAS HILLS Admission Status: ER Accout number: [id number] Admission Date: 07-26-2018 : 1965 Admission Diagnosis:CHRONIC OBSTRUCTIVE PULMONARY DISEASE W (ACUTE) EXACERB Attending: CHARLIE HARO Current LOS: 1 Anticipated DC Date: 07-29-2018 Planned Disposition: Home Primary Insurance: [facility] MEDICARE SOLUTIONS Discharge Planning Comments: CM met with patient to complete initial dc planning assessment. CM educated patient on the CM role and verbal consent given by patient to complete assessment. Patient lives at home with her daughter who is her primary caregiver. CM discussed hospice services and provided her all the brochures of the local hospice agencies. She stated she would read the brochures, discuss with her daughter, and give her daughter my phone number to call to discuss. She stated her daughter had a new phone number and she didn't have it with her but would call her grand-daughter to get it and have her daughter call me. CM gave patient my contact information to give to her daughter. At discharge patient plans to return home and feels this is a safe discharge. Patient has [facility] currently. CM will continue to follow and will assist as needed with dc plans/needs. See below for more assessment information. Sales Project Coordinator: Yaritza Carr RN, [facility] DCPIA - Discharge Planning Initial Assessment Updated by [id number]: Yaritza Carr on 07/26/18 5:15 pm * Is the patient Alert and Oriented? Yes * PCP Dr. Burnett * Pharmacy [facility] on [address] * Preadmission Environment Home with Family * ADLs Partial Dependent * Partial ADLs (Assistance needed) Bathing Dressing Medication Management Transfers * Equipment Cane Nebulizer Oxygen Rolling Walker * List name and contact numbers for known caregivers / representatives who currently or will assist patient after discharge: Delfina Li daughter [phone] Kayden Li daughter [phone] * Verbal permission to speak to the caregivers and representatives has been obtained from the patient. Yes * Community resources currently utilized Home Health * Please name any agencies selected above. [facility] * Additional services required to return to the preadmission environment? No * Can the patient safely return to the preadmission environment? Yes * Has this patient been hospitalized within the prior 30 days at any hospital? Yes Coverage Notice Reviewer: [id number] Bayron Osman Notice Issued Date-Time: 07/31/2018 14:45 Notice Type: IM Discharge Notice Notice Delivered To: Patient Relationship to Patient: Trackwalker Name: Delivery Method: HAND - Hand Delivered Adrianne Days: Prior Verbal Notification: Recipient Understood Notice: Yes Recipient Signature: Yes Med Rec Note Co-signed by Attending: Coverage Notice Comment: Last DP export: 07/31/18 3:48 pm Patient Name: DOUGLAS HILLS Page 61170 at 0846 All edits/amendments must be made on the electronic document DICTATION DATE: 08/01/18845 UROLOGIC NURSE: CLEMENT 08/01/18845 RPT#: [id number] DC DATE: STATUS: ADM IN [facility] [address] [place] [address] END OF REPORT
[2018-08-01 11:46] VITALS: BP 104/58
[2018-08-01 16:25] VITALS: BP 113/53
--- NOTE | 2018-08-01 19:20 | NUR ---
THE PATIENT WAS LYING IN BED, WATCHING TELEVISION, WHEN STAFF ENTERED HER ROOM. BED IN LOW POSITION WITH SIDERAILS X2 AND CALL LIGHT WITHIN REACH. THE PATIENT WAS EDUCATED ON USE OF A CALL LIGHT AND DEMONSTRATED UNDERSTANDING VIA TEACHBACK METHOD. HESS CATHETER PRODUCING CLOUDY YELLOW URINE. THE PATIENT APPEARS COMFORTABLE WITH NO QUESTIONS OR CONCERNS.
[2018-08-01 20:00] VITALS: BP 92/46
--- NOTE | 2018-08-02 02:44 | NUR ---
THE PATIENT APPEARS TO BE SLEEPING COMFORTABLY. BED IN LOW POSITION WITH SIDERAILS X2 AND CALL LIGHT WITHIN REACH.
[2018-08-02 04:00] VITALS: BP 98/48
[2018-08-02 04:09] LABS: BASOPHILS 0.2 % (0-2); HEMATOCRIT 28.6 % (36.0-48.0); HEMOGLOBIN 8.4 g/dL (12-16); IMMATURE GRANULOCYTES 4.1 % (0-5); LYMPHOCYTES 14.7 % (15-50); MCH 24.6 pg (26.0-34.0); MCHC 29.4 g/dL (31.0-37.0); MCV 83.6 fL (80.0-100.0); MEAN PLATELET VOLUME 8.8 fL (7.4-10.4); MONOCYTES 9.9 % (2-11); NEUTROPHILS 66.1 % (40-80); RBC 3.42 10x6/uL (4.00-5.40); RDW 16.5 % (11.5-14.5); WBC 12.7 10x3/uL (4.8-10.8)
[2018-08-02 04:11] LABS: PLATELET COUNT 315 10x3/uL (130-400)
[2018-08-02 04:12] LABS: ANION GAP 6.6 mmol/L (8-16); CARBON DIOXIDE 39.7 mmol/L (21.0-32.0); CREATININE - SERUM 1.2 mg/dL (0.6-1.3); POTASSIUM - SERUM 3.3 mmol/L (3.5-5.1)
--- NOTE | 2018-08-02 07:00 | NUR ---
ALERT, ORIENTED, CALM, NO S/S DISTRESS. DENIES NEEDS AT THIS TIME.
[2018-08-02 09:02] VITALS: BP 111/60
[2018-08-02] MEDS ORDERED: GLYBURIDE5 M1 PO (10:39)
[2018-08-02] MEDS ORDERED: DIFLUCAN100 MG PO (10:41)
--- NOTE | 2018-08-02 11:00 | NUR ---
PATIENT IN PHONE WITH FAMILY AND INSTRUCTED APURVA TO COME TO FACILITY AND PICK HER UP FOR DISCHARGE. FAMILY SUGGESTED TO PATIENT THAT IT WOULD BE BETTER TO LET THEM GET HER BELONGINGS MOVED TO NEW HOUSE BEFORE DISCHARGE. PATIENT STATED, "I TOLD MY FAMILY THAT I WAS READY TO GET OUT OF HERE."
--- NOTE | 2018-08-02 12:48 | NUR ---
DISCHARGE INSTRUCTIONS GIVEN WITH PATIENT VOICING UNDERSTANDING.
--- NOTE | 2018-08-02 13:39 | MORECARE ---
CASE MANAGEMENT DISCHARGE SUMMARY PATIENT: DOUGLAS HILLS UNIT: [id number] ADM DATE: 07/26/18 AGE: 53 : 63 SEX: F ROOM/BED: D.2102 AUTHOR: FROILAN,DOC PHYSICIAN: REFERRING PHYSICIAN: CHARLIE HARO MD DATE OF SERVICE: 08/02/18 Discharge Plan Patient Name: DOUGLAS HILLS Facility: [facility]:[place] : 1965 Planned Disposition: Home with Home Health Anticipated Discharge Date: 08/02/18 Discharge Date: Expected LOS: 7 Initial Reviewer: [id number] Initial Review Date: 07/26/2018 Generated: 08/02/18 2:39 pm DCP- Discharge Planning Updated by [id number]: Davin Osman on 08/01/18 7:[address] Patient Name: DOUGLAS HILLS Encounter No: [id number] : 1965 Primary Insurance: C MEDICARE SOLUTIONS Anticipated DC Date: 08-01-2018 Planned Disposition: Home with Home Health External Planned Provider: [facility] DCP follow-up note: CM RECEIVED MESSAGE FROM AMY OF [facility]; THEY MET WITH PT LAST EVENING AND AFTER DISCUSSION AND ANSWERING PT'S QUESTIONS, PT DECLINES HOSPICE CARE. PT HAS DECLINED HOSPICE CARE. FOR DISCHARGE HOME WITH DAUGHTER AND [facility], NOTIFY [facility] AT [phone], FAX DISCHARGE INFORMATION TO [facility] AT [phone]. CM TO FOLLOW AND ASSIST NEEDED. CARMEN Fernandez DCP- Discharge Planning Updated by [id number]: Davin Osman on 07/31/18 3:[address] Patient Name: DOUGLAS HILLS Encounter No: [id number] : 1965 Primary Insurance: [facility] MEDICARE SOLUTIONS Anticipated DC Date: 08-01-2018 Planned Disposition: Home with Hospice External Planned Provider: [facility] DCP follow-up note: CM RECEIVED REQUEST TO SPEAK TO PT IN ROOM. CM MET WITH PT IN ROOM TO DISCUSS DISCHARGE PLANNING AND NEEDS. PT REPORTS SPEAKING TO HER DAUGHTER AND HAS DECIDED SHE WANTS HOME HOSPICE AT DISCHARGE. CM OFFERED HOSPICE INFORMATION, PT REPORTS HAVING HOSPICE INFORMATION ALREADY AND HAS DEC[facility]ED [facility]. CM NOTIFIED JOSE SHAW, OBTAINED HOSPICE CONSULT ORDER. CM CALLED LETICIA AT [facility], , PROVIDED REFERRAL INFORMATION. CM FAXED REFERRAL TO [facility] AT [phone]. NURSE CELSO OF [facility] TO MEET WITH PT LATER THIS EVENING, PT REPORTS WANTING HOSPITAL BED. LETICIA OF [facility] NOTIFIED OF PT'S REQUEST FOR HOME HOSPITAL BED. IMPORTANT MESSAGE FROM MEDICARE PROVIDED AND EXPLAINED. CM WAITING HOSPICE TO MEET WITH PT TODAY AND FOR PT'S DECISION REGARDING HOME HOSPICE CARE WITH [facility]. Davin Osman, CASE MANAGEMENT DCP- Discharge Planning Updated by [id number]: Yaritza Carr on 07/26/18 4:[address] Patient Name: DOUGLAS HILLS Admission Status: ER Accout number: [id number] Admission Date: 07-26-2018 : 1965 Admission Diagnosis:CHRONIC OBSTRUCTIVE PULMONARY DISEASE W (ACUTE) EXACERB Attending: CHARLIE HARO Current LOS: 1 Anticipated DC Date: 07-29-2018 Planned Disposition: Home Primary Insurance: [facility] MEDICARE SOLUTIONS Discharge Planning Comments: CM met with patient to complete initial dc planning assessment. CM educated patient on the CM role and verbal consent given by patient to complete assessment. Patient lives at home with her daughter who is her primary caregiver. CM discussed hospice services and provided her all the brochures of the local hospice agencies. She stated she would read the brochures, discuss with her daughter, and give her daughter my phone number to call to discuss. She stated her daughter had a new phone number and she didn't have it with her but would call her grand-daughter to get it and have her daughter call me. CM gave patient my contact information to give to her daughter. At discharge patient plans to return home and feels this is a safe discharge. Patient has [facility] currently. CM will continue to follow and will assist as needed with dc plans/needs. See below for more assessment information. Calculation Clerk: Yaritza Carr RN, [facility] DCPIA - Discharge Planning Initial Assessment Updated by [email or web address]: Yaritza Carr on 07/26/18 5:15 pm * Is the patient Alert and Oriented? Yes * PCP Dr. Burnett * Pharmacy [facility] on [address] * Preadmission Environment Home with Family * ADLs Partial Dependent * Partial ADLs (Assistance needed) Bathing Dressing Medication Management Transfers * Equipment Cane Nebulizer Oxygen Rolling Walker * List name and contact numbers for known caregivers / representatives who currently or will assist patient after discharge: Delfina Li daughter [phone] Kayden Li daughter [phone] * Verbal permission to speak to the caregivers and representatives has been obtained from the patient. Yes * Community resources currently utilized Home Health * Please name any agencies selected above. [facility] * Additional services required to return to the preadmission environment? No * Can the patient safely return to the preadmission environment? Yes * Has this patient been hospitalized within the prior 30 days at any hospital? Yes Coverage Notice Reviewer: [id number] Bayron Osman Notice Issued Date-Time: 07/31/2018 14:45 Notice Type: IM Discharge Notice Notice Delivered To: Patient Relationship to Patient: Adding Machine Mechanic Name: Delivery Method: HAND - Hand Delivered Adrianne Days: Prior Verbal Notification: Recipient Understood Notice: Yes Recipient Signature: Yes Med Rec Note Co-signed by Attending: Coverage Notice Comment: Last DP export: 08/01/18 7:46 a Patient Name: DOUGLAS HILLS Page 44775 at 1339 All edits/amendments must be made on the electronic document DICTATION DATE: 08/02/181338 SHIFT COMMANDER: CLEMENT 08/02/18 133 RPT#: [id number] DC DATE: STATUS: ADM IN [facility] [address] [place] [address] END OF REPORT
--- NOTE | 2018-08-02 14:15 | MORECARE ---
CASE MANAGEMENT DISCHARGE SUMMARY PATIENT: DOUGLAS HILLS UNIT: [id number] ADM DATE: 07/26/18 AGE: 53 : 63 SEX: F ROOM/BED: D.2102 AUTHOR: FROILAN,DOC PHYSICIAN: REFERRING PHYSICIAN: CHARLIE HARO MD DATE OF SERVICE: 08/02/18 Discharge Plan Patient Name: DOUGLAS HILLS Facility: [facility]:[place] : 1965 Planned Disposition: Home with Home Health Anticipated Discharge Date: 08/02/18 Discharge Date: Expected LOS: 7 Initial Reviewer: [id number] Initial Review Date: 07/26/2018 Generated: 08/02/18 3:15 pm DCP- Discharge Planning Updated by [id number]: Davin Osman on 08/01/18 7:[address] Patient Name: DOUGLAS HILLS Encounter No: [id number] : 1965 Primary Insurance: C MEDICARE SOLUTIONS Anticipated DC Date: 08-01-2018 Planned Disposition: Home with Home Health External Planned Provider: [facility] DCP follow-up note: CM RECEIVED MESSAGE FROM [facility]Y OF [facility]; THEY MET WITH PT LAST EVENING AND AFTER DISCUSSION AND ANSWERING PT'S QUESTIONS, PT DECLINES HOSPICE CARE. PT HAS DECLINED HOSPICE CARE. FOR DISCHARGE HOME WITH DAUGHTER AND [facility] RESUMPTION, NOTIFY [facility] AT [phone], FAX DISCHARGE INFORMATION TO [facility] [place] AT [phone]. CM TO FOLLOW AND ASSIST NEEDED. CARMEN Fernandez DCP- Discharge Planning Updated by [id number]: Davin Osman on 07/31/18 3:[address] Patient Name: DOUGLAS HILLS Encounter No: [id number] : 1965 Primary Insurance: [facility] MEDICARE SOLUTIONS Anticipated DC Date: 08-01-2018 Planned Disposition: Home with Hospice External Planned Provider: [facility] DCP follow-up note: CM RECEIVED REQUEST TO SPEAK TO PT IN ROOM. CM MET WITH PT IN ROOM TO DISCUSS DISCHARGE PLANNING AND NEEDS. PT REPORTS SPEAKING TO HER DAUGHTER AND HAS DECIDED SHE WANTS HOME HOSPICE AT DISCHARGE. CM OFFERED HOSPICE INFORMATION, PT REPORTS HAVING HOSPICE INFORMATION ALREADY AND HAS DECIDED ON [facility]. CM NOTIFIED JOSE SHAW, OBTAINED HOSPICE CONSULT ORDER. CM CALLED LETICIA AT [facility], , PROVIDED REFERRAL INFORMATION. CM FAXED REFERRAL TO [facility] AT [phone]. NURSE CELSO OF [facility] TO MEET WITH PT LATER THIS EVENING, PT REPORTS WANTING HOSPITAL BED. LETICIA OF [facility] NOTIFIED OF PT'S REQUEST FOR HOME HOSPITAL BED. IMPORTANT MESSAGE FROM MEDICARE PROVIDED AND EXPLAINED. CM WAITING HOSPICE TO MEET WITH PT TODAY AND FOR PT'S DECISION REGARDING HOME HOSPICE CARE WITH [facility]. Davin Osman, CASE MANAGEMENT DCP- Discharge Planning Updated by [id number]: Yaritza Carr on 07/26/18 4:[address] Patient Name: DOUGLAS HILLS Admission Status: ER Accout number: [id number] Admission Date: 07-26-2018 : 1965 Admission Diagnosis:CHRONIC OBSTRUCTIVE PULMONARY DISEASE W (ACUTE) EXACERB Attending: CHARLIE HARO Current LOS: 1 Anticipated DC Date: 07-29-2018 Planned Disposition: Home Primary Insurance: [facility] MEDICARE SOLUTIONS Discharge Planning Comments: CM met with patient to complete initial dc planning assessment. CM educated patient on the CM role and verbal consent given by patient to complete assessment. Patient lives at home with her daughter who is her primary caregiver. CM discussed hospice services and provided her all the brochures of the local hospice agencies. She stated she would read the brochures, discuss with her daughter, and give her daughter my phone number to call to discuss. She stated her daughter had a new phone number and she didn't have it with her but would call her grand-daughter to get it and have her daughter call me. CM gave patient my contact information to give to her daughter. At discharge patient plans to return home and feels this is a safe discharge. Patient has [facility] currently. CM will continue to follow and will assist as needed with dc plans/needs. See below for more assessment information. Writer Technical Publications: Yaritza Carr RN, [facility] DCPIA - Discharge Planning Initial Assessment Updated by [id number]: Yaritza Carr on 07/26/18 5:15 pm * Is the patient Alert and Oriented? Yes * PCP Dr. Burnett * Pharmacy [facility] on [address] * Preadmission Environment Home with Family * ADLs Partial Dependent * Partial ADLs (Assistance needed) Bathing Dressing Medication Management Transfers * Equipment Cane Nebulizer Oxygen Rolling Walker * List name and contact numbers for known caregivers / representatives who currently or will assist patient after discharge: Delfina Li daughter [phone] Kayden Li daughter [phone] * Verbal permission to speak to the caregivers and representatives has been obtained from the patient. Yes * Community resources currently utilized Home Health * Please name any agencies selected above. [facility] * Additional services required to return to the preadmission environment? No * Can the patient safely return to the preadmission environment? Yes * Has this patient been hospitalized within the prior 30 days at any hospital? Yes External Providers External Provider: [facility] Next Contact Date: 08/02/2018 Service Request Date: Service Type: Resolution: Reviewer: Comments: Coverage Notice Reviewer: [id number] Bayron Osman Notice Issued Date-Time: 07/31/2018 14:45 Notice Type: IM Discharge Notice Notice Delivered To: Patient Relationship to Patient: Battery Repairer Name: Delivery Method: HAND - Hand Delivered Adrianne Days: Prior Verbal Notification: Recipient Understood Notice: Yes Recipient Signature: Yes Med Rec Note Co-signed by Attending: Coverage Notice Comment: Last DP export: 08/02/18 12:39 p Patient Name: DOUGLAS IHLLS Page 62714 at 1415 All edits/amendments must be made on the electronic document DICTATION DATE: 08/02/181413 MANAGER DATA WAREHOUSE: CLEMENT 08/02/181413 RPT#: [id number] DC DATE: STATUS: ADM IN [facility] [address] [place] [address] END OF REPORT
--- NOTE | 2018-08-02 14:15 | NUR ---
MIDLINE DISCONTINUED, PRESSURE DRESSING APPLIED, NO BLEEDING NOTED, KAYLIN WELL.
--- NOTE | 2018-08-02 14:22 | MORECARE ---
CASE MANAGEMENT DISCHARGE SUMMARY PATIENT: DOUGLAS HILLS UNIT: [id number] ADM DATE: 07/26/18 AGE: 53 : 63 SEX: F ROOM/BED: D.2102 AUTHOR: FROILANDOC PHYSICIAN: REFERRING PHYSICIAN: CHARLIE HARO MD DATE OF SERVICE: 08/02/18 Discharge Plan Patient Name: DOUGLAS HILLS Facility: [facility]:[place] : 1965 Planned Disposition: Home with Home Health Anticipated Discharge Date: 08/02/18 Discharge Date: Expected LOS: 7 Initial Reviewer: [id number] Initial Review Date: 07/26/2018 Generated: 08/02/18 3:22 pm Comments DCP- Discharge Planning Updated by [email or web address]: Davin Osman on 08/02/18 1:[address] Patient Name: DOUGLAS HILLS Encounter No: [id number] : 1965 Primary Insurance: [facility] MEDICARE SOLUTIONS Anticipated DC Date: 08-02-2018 Planned Disposition: Home with Home Health External Planned Provider: [facility] DCP follow-up note: CM RECEIVED DISCHARGE ORDER, SPOKE TO PT IN ROOM, DISCUSSED DISCHARGE NEEDS. PT REPORTS SHE WANTS [facility] TO RESUME HER CARE AND IS SURE THAT SHE DOES NOT WANT HOSPICE. PT DENIES FURTHER DISCHARGE NEEDS, HER DAUGHTER WILL PICK HER UP TODAY FOR DISCHARGE HOME. CM CALLED [facility], , SPOKE TO OLIMPIA, VERIFIED PT IS ON HOLD FOR HOSPITAL STAY, PROVIDED REFERRAL INFORMATION, PT PLACED ON SCHEDULE FOR RESUMPTION OF HOME HEALTH SERVICES. CM FAXED REFERRAL AND DISCHARGE INFORMATION INFORMATION TO [facility], . TOOL RADIAL DRILL PRESS SET UP OPERATOR NURSE NOTIFIED. Davin Osman, CASE MANAGEMENT DCP- Discharge Planning Updated by [id number]: Davin Osman on 08/01/18 7:[address] Patient Name: DOUGLAS HILLS Encounter No: [id number] : 1965 Primary Insurance: [facility] MEDICARE SOLUTIONS Anticipated DC Date: 08-01-2018 Planned Disposition: Home with Home Health External Planned Provider: [facility] DCP follow-up note: CM RECEIVED MESSAGE FROM [facility]; THEY MET WITH PT LAST EVENING AND AFTER DISCUSSION AND ANSWERING PT'S QUESTIONS, PT DECLINES HOSPICE CARE. PT HAS DECLINED HOSPICE CARE. FOR DISCHARGE HOME WITH DAUGHTER AND [facility] RES[facility], NOTIFY [facility] AT [phone], FAX DISCHARGE INFORMATION TO [facility] AT [phone]. CM TO FOLLOW AND ASSIST NEEDED. Davin Osman CASE MANAGEMENT DCP- Discharge Planning Updated by [email or web address]: Davin Osman on 07/31/18 3:[address] Patient Name: DOUGLAS HILLS Encounter No: [id number] : 1965 Primary Insurance: [facility] MEDICARE SOLUTIONS Anticipated DC Date: 08-01-2018 Planned Disposition: Home with Hospice External Planned Provider: [facility] DCP follow-up note: CM RECEIVED REQUEST TO SPEAK TO PT IN ROOM. CM MET WITH PT IN ROOM TO DISCUSS DISCHARGE PLANNING AND NEEDS. PT REPORTS SPEAKING TO HER DAUGHTER AND HAS DECIDED SHE WANTS HOME HOSPICE AT DISCHARGE. CM OFFERED HOSPICE INFORMATION, PT REPORTS HAVING HOSPICE INFORMATION ALREADY AND HAS DECIDED ON [facility]. CM NOTIFIED JOSE SHAW, OBTAINED HOSPICE CONSULT ORDER. CM CALLED LETICIA AT [facility], , PROVIDED REFERRAL INFORMATION. CM FAXED REFERRAL TO [facility] AT [phone]. NURSE CELSO OF [facility] TO MEET WITH PT LATER THIS EVENING, PT REPORTS WANTING HOSPITAL BED. [facility] OF [facility] NOTIFIED OF PT'S REQUEST FOR HOME HOSPITAL BED. IMPORTANT MESSAGE FROM MEDICARE PROVIDED AND EXPLAINED. CM WAITING HOSPICE TO MEET WITH PT TODAY AND FOR PT'S DECISION REGARDING HOME HOSPICE CARE WITH [facility]. Davin Osman CASE VIC DCP- Discharge Planning Updated by [id number]: Yaritza Carr on 07/26/18 4:[address] Patient Name: DOUGLAS HILLS Admission Status: ER Accout number: [id number] Admission Date: 07-26-2018 : 1965 Admission Diagnosis:CHRONIC OBSTRUCTIVE PULMONARY DISEASE W (ACUTE) EXACERB Attending: CHARLIE HARO Current LOS: 1 Anticipated DC Date: 07-29-2018 Planned Disposition: Home Primary Insurance: [facility] MEDICARE SOLUTIONS Discharge Planning Comments: CM met with patient to complete initial dc planning assessment. CM educated patient on the CM role and verbal consent given by patient to complete assessment. Patient lives at home with her daughter who is her primary caregiver. CM discussed hospice services and provided her all the brochures of the local hospice agencies. She stated she would read the brochures, discuss with her daughter, and give her daughter my phone number to call to discuss. She stated her daughter had a new phone number and she didn't have it with her but would call her grand-daughter to get it and have her daughter call me. CM gave patient my contact information to give to her daughter. At discharge patient plans to return home and feels this is a safe discharge. Patient has [facility] currently. CM will continue to follow and will assist as needed with dc plans/needs. See below for more assessment information. Party Plan Selling Distributor: Yaritza Carr RN, [facility] DCPIA - Discharge Planning Initial Assessment Updated by [id number]: Yaritza Carr on 07/26/18 5:15 pm * Is the patient Alert and Oriented? Yes * PCP Dr. Burnett * Pharmacy [facility] on [facility] * Preadmission Environment Home with Family * ADLs Partial Dependent * Partial ADLs (Assistance needed) Bathing Dressing Medication Management Transfers * Equipment Cane Nebulizer Oxygen Rolling Walker * List name and contact numbers for known caregivers / representatives who currently or will assist patient after discharge: Delfina Li daughter [phone] Kayden Li daughter [phone] * Verbal permission to speak to the caregivers and representatives has been obtained from the patient. Yes * Community resources currently utilized Home Health * Please name any agencies selected above. [facility] * Additional services required to return to the preadmission environment? No * Can the patient safely return to the preadmission environment? Yes * Has this patient been hospitalized within the prior 30 days at any hospital? Yes Coverage Notice Reviewer: [id number] - Davin Osman Notice Issued Date-Time: 07/31/2018 14:45 Notice Type: IM Discharge Notice Notice Delivered To: Patient Relationship to Patient: Fruit Or Nut Picker Name: Delivery Method: HAND - Hand Delivered Adrianne Days: Prior Verbal Notification: Recipient Understood Notice: Yes Recipient Signature: Yes Med Rec Note Co-signed by Attending: Coverage Notice Comment: Last DP export: 08/02/18 1:15 p Patient Name: DOUGLAS HILLS Page 09026 at 1422 All edits/amendments must be made on the electronic document DICTATION DATE: 08/02/181420 COMPRESSOR STATIONS SUPERINTENDENT: CLEMENT 08/02/181420 RPT#: [id number] DC DATE: STATUS: ADM IN [facility] [address] [place] [address] END OF REPORT
--- NOTE | 2018-08-02 14:33 | NUR ---
EHSS CATH DISCONTINUED, PT KAYLIN WELL. 320 ML YELLOW URINE DRAINED FROM BAG, CLEAR, NO SEDIMENT NOTED.
--- NOTE | 2018-08-02 14:55 | NUR ---
PT NURSE INFORMED ME THAT PATIENT AND PT'S FAMILY DOES NOT WANT HER TO BE DISCHARGED. CM HAD GIVEN HER THE MEDICARE NUMBER TO PROTEST THE DISCHARGE. PT IS CALLING MEDICARE NUMBER. CASE MANAGEMENT NOTIFIED.
[2018-08-02 15:27] VITALS: BP 115/63
--- NOTE | 2018-08-02 15:37 | NUR ---
PATIENT AT THIS TIME, "I DON'T THINK MY FAMILY WANTED ME TO COME HOME TODAY. THEY ACTED LIKE THEY WERE SCARED OR SOMETHING."
--- NOTE | 2018-08-02 15:39 | MORECARE ---
CASE MANAGEMENT DISCHARGE SUMMARY PATIENT: DOUGLAS HILLS UNIT: [id number] ADM DATE: 07/26/18 AGE: 53 : 63 SEX: F ROOM/BED: D.2102 AUTHOR: FROILAN,DOC PHYSICIAN: REFERRING PHYSICIAN: CHARLIE HARO MD DATE OF SERVICE: 08/02/18 Discharge Plan Patient Name: DOUGLAS HILLS Facility: [facility]:[place] : 1965 Planned Disposition: Home with Home Health Anticipated Discharge Date: 08/02/18 Discharge Date: Expected LOS: 7 Initial Reviewer: [id number] Initial Review Date: 07/26/2018 Generated: 08/02/18 4:38 pm Comments DCP- Discharge Planning Updated by [id number]: Davin Osman on 08/02/18 2:[address] Patient Name: DOUGLAS HILLS Encounter No: [id number] : 1965 Primary Insurance: [facility] MEDICARE SOLUTIONS Anticipated DC Date: 08-02-2018 Planned Disposition: Home with Home Health External Planned Provider: [facility] DCP follow-up note: CM RECEIVED DISCHARGE ORDER, SPOKE TO PT IN ROOM, DISCUSSED DISCHARGE NEEDS. PT REPORTS SHE WANTS [facility] TO RESUME HER CARE AND IS SURE THAT SHE DOES NOT WANT HOSPICE. PT DENIES FURTHER DISCHARGE NEEDS, HER DAUGHTER WILL PICK HER UP TODAY FOR DISCHARGE HOME. CM CALLED [facility], , SPOKE TO OLIMPIA, VERIFIED PT IS ON HOLD FOR HOSPITAL STAY, PROVIDED REFERRAL INFORMATION, PT PLACED ON SCHEDULE FOR RESUMPTION OF HOME HEALTH SERVICES. CM FAXED REFERRAL AND DISCHARGE INFORMATION INFORMATION TO [facility], . STAGE BUILDER NURSE NOTIFIED. Davin Osman, CASE MANAGEMENT Appended by Davin Osman on 08/02/2018 15:30 POCKET MACHINE OPERATOR: CM SPOKE TO STAGE BUILDER NURSE WHO INFORMED CM THAT PT'S FAMILY INFORMED BEDSIDE NURSE THAT THEY ARE MOVING TO A NEW HOUSE AND WANT PT TO STAY IN HOSPITAL UNTIL THEY GET SETTLED INTO THE NEW HOME. CM SPOKE PT IN ROOM REGARDING DISCHARGE. PT REPORTS SHE HAS CALLED MEDICARE AND LEFT A MESSAGE TO APPEAL HER DISCHARGE BECAUSE SHE STILL HAS A RASH AND HER FAMILY DOESN'T WANT IT TO GET INFECTED. CM DISCUSSED AVAILABILITY OF RETIREMENT FACILITY; PT DECLINES RETIREMENT FACILITY PLACEMENT, REPORTS PLAN TO GO HOME AT DISCHARGE AND THAT HER FAMILY WANTS TO MAKE SURE SHE IS OK BEFORE SHE GOES HOME. CM EXPLAINED THAT [facility] WILL RESUME HOME HEALTH WHEN PT DISCHARGES AND THAT CM WILL CALL WHEN MEDICARE DECISION IS REACHED. PT PROVIDED NEW HOME ADDRESS TO CM TO PROVIDE TO HOME HEALTH; DISCHARGE ADDRESS IS [address] [place] [address]. [phone]. CM CALLED [facility], , INFORMED OF PT'S APPEAL OF DISCHARGE AND PROVIDED NEW HOME ADDRESS FOR HOME HEALTH RESUMPTION OF SERVICES WHEN PT DOES ACTUALLY GO HOME. CM WAITING DETERMINATION FROM MEDICARE OF DISCHARGE APPEAL. WHEN PT DOES DISCHARGE, NOTIFY [facility] AT [phone] FOR RESUMPTION OF HOME HEALTH SERVICES. DCP- Discharge Planning Updated by [id number]: Davin Osman on 08/01/18 7:[address] Patient Name: DOUGLAS HILLS Encounter No: [id number] : 1965 Primary Insurance: C MEDICARE SOLUTIONS Anticipated DC Date: 08-01-2018 Planned Disposition: Home with Home Health External Planned Provider: [facility] DCP follow-up note: CM RECEIVED MESSAGE FROM [facility] OF [facility]; THEY MET WITH PT LAST EVENING AND AFTER DISCUSSION AND ANSWERING PT'S QUESTIONS, PT DECLINES HOSPICE CARE. PT HAS DECLINED HOSPICE CARE. FOR DISCHARGE HOME WITH DAUGHTER AND [facility] RESUMPTION, NOTIFY [facility] AT [phone], FAX DISCHARGE INFORMATION TO [facility] AT [phone]. CM TO FOLLOW AND ASSIST NEEDED. Davin Osman, CASE MANAGEMENT DCP- Discharge Planning Updated by [id number]: Davin Osman on 07/31/18 3:[address] Patient Name: DOUGLAS HILLS Encounter No: [id number] : 1965 Primary Insurance: [facility] MEDICARE SOLUTIONS Anticipated DC Date: 08-01-2018 Planned Disposition: Home with Hospice External Planned Provider: [facility] DCP follow-up note: CM RECEIVED REQUEST TO SPEAK TO PT IN ROOM. CM MET WITH PT IN ROOM TO DISCUSS DISCHARGE PLANNING AND NEEDS. PT REPORTS SPEAKING TO HER DAUGHTER AND HAS DECIDED SHE WANTS HOME HOSPICE AT DISCHARGE. CM OFFERED HOSPICE INFORMATION, PT REPORTS HAVING HOSPICE INFORMATION ALREADY AND HAS DECIDED ON [facility]. CM NOTIFIED JOSE SHAW, OBTAINED HOSPICE CONSULT ORDER. CM CALLED LETICIA AT [facility], , PROVIDED REFERRAL INFORMATION. CM FAXED REFERRAL TO [facility] AT [phone]. NURSE CELSO OF [facility] TO MEET WITH PT LATER THIS EVENING, PT REPORTS WANTING HOSPITAL BED. LETICIA OF [facility] NOTIFIED OF PT'S REQUEST FOR HOME HOSPITAL BED. IMPORTANT MESSAGE FROM MEDICARE PROVIDED AND EXPLAINED. CM WAITING HOSPICE TO MEET WITH PT TODAY AND FOR PT'S DECISION REGARDING HOME HOSPICE CARE WITH [facility]. Davin Osman, CASE MANAGEMENT DCP- Discharge Planning Updated by [id number]: Yaritza Carr on 07/26/18 4:[address] Patient Name: DOUGLAS HILLS Admission Status: ER Accout number: [id number] Admission Date: 07-26-2018 : 1965 Admission Diagnosis:CHRONIC OBSTRUCTIVE PULMONARY DISEASE W (ACUTE) EXACERB Attending: CHARLIE HARO Current LOS: 1 Anticipated DC Date: 07-29-2018 Planned Disposition: Home Primary Insurance: [facility] MEDICARE SOLUTIONS Discharge Planning Comments: CM met with patient to complete initial dc planning assessment. CM educated patient on the CM role and verbal consent given by patient to complete assessment. Patient lives at home with her daughter who is her primary caregiver. CM discussed hospice services and provided her all the brochures of the local hospice agencies. She stated she would read the brochures, discuss with her daughter, and give her daughter my phone number to call to discuss. She stated her daughter had a new phone number and she didn't have it with her but would call her grand-daughter to get it and have her daughter call me. CM gave patient my contact information to give to her daughter. At discharge patient plans to return home and feels this is a safe discharge. Patient has [facility] currently. CM will continue to follow and will assist as needed with dc plans/needs. See below for more assessment information. Rn Home Health: Yaritza Carr RN, [facility] DCPIA - Discharge Planning Initial Assessment Updated by [id number]: Yaritza Carr on 07/26/18 5:15 pm * Is the patient Alert and Oriented? Yes * PCP Dr. Burnett * [facility] on [address] * Preadmission Environment Home with Family * ADLs Partial Dependent * Partial ADLs (Assistance needed) Bathing Dressing Medication Management Transfers * Equipment Cane Nebulizer Oxygen Rolling Walker * List name and contact numbers for known caregivers / representatives who currently or will assist patient after discharge: Delfina Li daughter [phone] Kayden Li daughter [phone] * Verbal permission to speak to the caregivers and representatives has been obtained from the patient. Yes * Community resources currently utilized Home Health * Please name any agencies selected above. [facility] * Additional services required to return to the preadmission environment? No * Can the patient safely return to the preadmission environment? Yes * Has this patient been hospitalized within the prior 30 days at any hospital? Yes Coverage Notice Reviewer: [id number] Bayron Osman Notice Issued Date-Time: 07/31/2018 14:45 Notice Type: IM Discharge Notice Notice Delivered To: Patient Relationship to Patient: Sand Temperer Name: Delivery Method: HAND - Hand Delivered Adrianne Days: Prior Verbal Notification: Recipient Understood Notice: Yes Recipient Signature: Yes Med Rec Note Co-signed by Attending: Coverage Notice Comment: Last DP export: 08/02/18 1:22 p Patient Name: DOUGLAS HILLS Page 73234 at 1539 All edits/amendments must be made on the electronic document DICTATION DATE: 08/02/181537 SUPERVISOR SPECIAL EDUCATION: CLEMENT 08/02/181537 RPT#: [id number] DC DATE: STATUS: ADM IN [facility] [address] [place] [address] END OF REPORT
--- NOTE | 2018-08-02 15:54 | MORECARE ---
CASE MANAGEMENT DISCHARGE SUMMARY PATIENT: DOUGLAS HILLS UNIT: [id number] ADM DATE: 07/26/18 AGE: 53 : 63 SEX: F ROOM/BED: D.2102 AUTHOR: FROILAN,DOC PHYSICIAN: REFERRING PHYSICIAN: CHARLIE HARO MD DATE OF SERVICE: 08/02/18 Discharge Plan Patient Name: DOUGLAS HILLS Facility: [facility]:[place] : 1965 Planned Disposition: Home with Home Health Anticipated Discharge Date: 08/02/18 Discharge Date: Expected LOS: 7 Initial Reviewer: [email or web address] Initial Review Date: 07/26/2018 Generated: 08/02/18 4:54 pm Comments DCP- Discharge Planning Updated by [id number]: Hu Phelps on 08/02/18 2:[address] Patient Name: DOUGLAS HILLS Encounter No: [id number] : 1965 Primary Insurance: [facility] MEDICARE SOLUTIONS Anticipated DC Date: 08-02-2018 Planned Disposition: Home with Home Health External Planned Provider: [facility] DCP follow-up note: CM RECEIVED DISCHARGE ORDER, SPOKE TO PT IN ROOM, DISCUSSED DISCHARGE NEEDS. PT REPORTS SHE WANTS [facility] TO RESUME HER CARE AND IS SURE THAT SHE DOES NOT WANT HOSPICE. PT DENIES FURTHER DISCHARGE NEEDS, HER DAUGHTER WILL PICK HER UP TODAY FOR DISCHARGE HOME. CM CALLED [facility], , SPOKE TO OLIMPIA, VERIFIED PT IS ON HOLD FOR HOSPITAL STAY, PROVIDED REFERRAL INFORMATION, PT PLACED ON SCHEDULE FOR RESUMPTION OF HOME HEALTH SERVICES. CM FAXED REFERRAL AND DISCHARGE INFORMATION INFORMATION TO [facility], . STRATEGIC ACCOUNTS MANAGER NURSE NOTIFIED. Hu Phelps, CASE MANAGEMENT Appended by Hu Phelps on 08/02/2018 15:30 ELECTRIC SIGN ASSEMBLER: CM SPOKE TO STRATEGIC ACCOUNTS MANAGER NURSE WHO INFORMED CM THAT PT'S FAMILY INFORMED BEDSIDE NURSE THAT THEY ARE MOVING TO A NEW HOUSE AND WANT PT TO STAY IN HOSPITAL UNTIL THEY GET SETTLED INTO THE NEW HOME. CM SPOKE PT IN ROOM REGARDING DISCHARGE. PT REPORTS SHE HAS CALLED MEDICARE AND LEFT A MESSAGE TO APPEAL HER DISCHARGE BECAUSE SHE STILL HAS A RASH AND HER FAMILY DOESN'T WANT IT TO GET INFECTED. CM DISCUSSED AVAILABILITY OF RESIDENTIAL FACILITY; PT DECLINES RESIDENTIAL FACILITY PLACEMENT, REPORTS PLAN TO GO HOME AT DISCHARGE AND THAT HER FAMILY WANTS TO MAKE SURE SHE IS OK BEFORE SHE GOES HOME. CM EXPLAINED THAT [facility] WILL RESUME HOME HEALTH WHEN PT DISCHARGES AND THAT CM WILL CALL WHEN MEDICARE DECISION IS REACHED. PT PROVIDED NEW HOME ADDRESS TO CM TO PROVIDE TO HOME HEALTH; DISCHARGE ADDRESS IS [address] [place] [address]. [id number]. CM CALLED [facility], , INFORMED OF PT'S APPEAL OF DISCHARGE AND PROVIDED NEW HOME ADDRESS FOR HOME HEALTH RESUMPTION OF SERVICES WHEN PT DOES ACTUALLY GO HOME. CM WAITING DETERMINATION FROM MEDICARE OF DISCHARGE APPEAL. WHEN PT DOES DISCHARGE, NOTIFY [facility] AT [phone] FOR RESUMPTION OF HOME HEALTH SERVICES. HU PHELPS CASE MANAGEMENT DCP- Discharge Planning Updated by [id number]: Hu Phelps on 08/01/18 7:[address] Patient Name: DOUGLAS HILLS Encounter No: [id number] : 1965 Primary Insurance: [facility] MEDICARE SOLUTIONS Anticipated DC Date: 08-01-2018 Planned Disposition: Home with Home Health External Planned Provider: [facility] DCP follow-up note: CM RECEIVED MESSAGE FROM AMY OF [facility]; THEY MET WITH PT LAST EVENING AND AFTER DISCUSSION AND ANSWERING PT'S QUESTIONS, PT DECLINES HOSPICE CARE. PT HAS DECLINED HOSPICE CARE. FOR DISCHARGE HOME WITH DAUGHTER AND [facility] RESUMPTION, NOTIFY [facility] AT [phone], FAX DISCHARGE INFORMATION TO [facility] AT [phone]. CM TO FOLLOW AND ASSIST NEEDED. CARMEN Fernandez DCP- Discharge Planning Updated by [email or web address]: Hu Phelps on 07/31/18 3:[address] Patient Name: DOUGLAS HENSONKLAND Encounter No: [id number] : 1965 Primary Insurance: [facility] MEDICARE SOLUTIONS Anticipated DC Date: 08-01-2018 Planned Disposition: Home with Hospice External Planned Provider: [facility] DCP follow-up note: CM RECEIVED REQUEST TO SPEAK TO PT IN ROOM. CM MET WITH PT IN ROOM TO DISCUSS DISCHARGE PLANNING AND NEEDS. PT REPORTS SPEAKING TO HER DAUGHTER AND HAS DECIDED SHE WANTS HOME HOSPICE AT DISCHARGE. CM OFFERED HOSPICE INFORMATION, PT REPORTS HAVING HOSPICE INFORMATION ALREADY AND HAS DECIDED ON [facility]. CM NOTIFIED JO[facility] SHAW, OBTAINED HOSPICE CONSULT ORDER. CM CALLED LETICIA AT [facility], , PROVIDED REFERRAL INFORMATION. CM FAXED REFERRAL TO [facility] AT [phone]. NURSE CELSO OF [facility] TO MEET WITH PT LATER THIS EVENING, PT REPORTS WANTING HOSPITAL BED. LETICIA OF [facility] NOTIFIED OF PT'S REQUEST FOR HOME HOSPITAL BED. IMPORTANT MESSAGE FROM MEDICARE PROVIDED AND EXPLAINED. CM WAITING HOSPICE TO MEET WITH PT TODAY AND FOR PT'S DECISION REGARDING HOME HOSPICE CARE WITH [facility]. Hu Phelps, CASE MANAGEMENT DCP- Discharge Planning Updated by [email or web address]: Yaritza Carr on 07/26/18 4:[address] Patient Name: DOUGLAS HILLS Admission Status: ER Accout number: [id number] Admission Date: 07-26-2018 : 1965 Admission Diagnosis:CHRONIC OBSTRUCTIVE PULMONARY DISEASE W (ACUTE) EXACERB Attending: CHARLIE HARO Current LOS: 1 Anticipated DC Date: 07-29-2018 Planned Disposition: Home Primary Insurance: [facility] MEDICARE SOLUTIONS Discharge Planning Comments: CM met with patient to complete initial dc planning assessment. CM educated patient on the CM role and verbal consent given by patient to complete assessment. Patient lives at home with her daughter who is her primary caregiver. CM discussed hospice services and provided her all the brochures of the local hospice agencies. She stated she would read the brochures, discuss with her daughter, and give her daughter my phone number to call to discuss. She stated her daughter had a new phone number and she didn't have it with her but would call her grand-daughter to get it and have her daughter call me. CM gave patient my contact information to give to her daughter. At discharge patient plans to return home and feels this is a safe discharge. Patient has [facility] currently. CM will continue to follow and will assist as needed with dc plans/needs. See below for more assessment information. Human Factors Scientist: Yaritza Carr RN, [facility] DCPIA - Discharge Planning Initial Assessment Updated by [id number]: Yaritza Carr on 07/26/18 5:15 pm * Is the patient Alert and Oriented? Yes * PCP Dr. Burnett * Pharmacy [facility] on [address] * Preadmission Environment Home with Family * ADLs Partial Dependent * Partial ADLs (Assistance needed) Bathing Dressing Medication Management Transfers * Equipment Cane Nebulizer Oxygen Rolling Walker * List name and contact numbers for known caregivers / representatives who currently or will assist patient after discharge: Delfina Li daughter [phone] Kayden Li daughter [phone] * Verbal permission to speak to the caregivers and representatives has been obtained from the patient. Yes * Community resources currently utilized Home Health * Please name any agencies selected above. [facility] * Additional services required to return to the preadmission environment? No * Can the patient safely return to the preadmission environment? Yes * Has this patient been hospitalized within the prior 30 days at any hospital? Yes Coverage Notice Reviewer: [email or web address] Bayron Phelps Notice Issued Date-Time: 07/31/2018 14:45 Notice Type: IM Discharge Notice Notice Delivered To: Patient Relationship to Patient: State Inspector Name: Delivery Method: HAND - Hand Delivered Adrianne Days: Prior Verbal Notification: Recipient Understood Notice: Yes Recipient Signature: Yes Med Rec Note Co-signed by Attending: Coverage Notice Comment: Last DP export: 08/02/18 2:38 p Patient Name: DOUGLAS HILLS Page [id number] at 1554 All edits/amendments must be made on the electronic document DICTATION DATE: 08/02/181553 TUTORING ASSISTANT: CLEMENT 08/02/181553 RPT#: [id number] DC DATE: STATUS: ADM IN [facility] [address] [place] [address] END OF REPORT
--- NOTE | 2018-08-02 17:28 | MORECARE ---
CASE MANAGEMENT DISCHARGE SUMMARY PATIENT: DOUGLAS HILLS UNIT: [id number] ADM DATE: 07/26/18 AGE: 53 : 63 SEX: F ROOM/BED: D.2102 AUTHOR: FROILAN,DOC PHYSICIAN: REFERRING PHYSICIAN: CHARLIE HARO MD DATE OF SERVICE: 08/02/18 Discharge Plan Patient Name: DOUGLAS HILLS Facility: [facility]:[place] : 1965 Planned Disposition: Home with Home Health Anticipated Discharge Date: 08/02/18 Discharge Date: Expected LOS: 7 Initial Reviewer: [email or web address] Initial Review Date: 07/26/2018 Generated: 08/02/18 6:28 pm Comments DCP- Discharge Planning Updated by [email or web address]: Beryl Julian on 08/02/18 4:[address] PATIENT FILING A [employer] CLAIM TO APPEAL HER DISCHARGE. SHE WAS ON HOLD FOR >30 MINUTES WAITING TO FILE THE APPEAL. I HAVE NOTIFIED AMBER ROUSE RN CASEMANAGER AIR POLLUTION ANALYST. THE SOFTWARE TECHNICIAN IS AWARE WELL THE TELEPRINTER INSTALLER AND GEOSPATIAL IMAGE ANALYST AND OUTPATIENT SERVICES DIRECTOR. I RECEIVED THE CASE NUMBER FROM THE PATIENT [employer] HAS NOT SENT NOTICE YET (#[id number]). THE DETAILED NOTICE OF DISCHARGE WAS COMPLETED AND SIGNED BY THE PATIENT. THE ORIGINAL IS IN THE PATIENTS CHART, AND COPY WAS SENT WITH AMBER TO THE TELEPRINTER INSTALLER DANA SO THAT SHE CAN FAX IT OFF SOON WE HAVE THE LETTER. WILL WAIT FOR THE [employer] DETERMINATION. DCP- Discharge Planning Updated by [email or web address]: Hu Phelps on 08/02/18 2:[address] Patient Name: DOUGLAS HILLS Encounter No: [id number] : 1965 Primary Insurance: [facility] MEDICARE SOLUTIONS Anticipated DC Date: 08-02-2018 Planned Disposition: Home with Home Health External Planned Provider: [facility] DCP follow-up note: CM RECEIVED DISCHARGE ORDER, SPOKE TO PT IN ROOM, DISCUSSED DISCHARGE NEEDS. PT REPORTS SHE WANTS [facility] TO RESUME HER CARE AND IS SURE THAT SHE DOES NOT WANT HOSPICE. PT DENIES FURTHER DISCHARGE NEEDS, HER DAUGHTER WILL PICK HER UP TODAY FOR DISCHARGE HOME. CM CALLED [facility], , SPOKE TO OLIMPIA, VERIFIED PT IS ON HOLD FOR HOSPITAL STAY, PROVIDED REFERRAL INFORMATION, PT PLACED ON SCHEDULE FOR RESUMPTION OF HOME HEALTH SERVICES. CM FAXED REFERRAL AND DISCHARGE INFORMATION INFORMATION TO [facility], . SOFTWARE TECHNICIAN NURSE NOTIFIED. Hu Phelps, CASE MANAGEMENT Appended by Hu Phelps on 08/02/2018 15:30 STOCK SAW OPERATOR: CM SPOKE TO SOFTWARE TECHNICIAN NURSE WHO INFORMED CM THAT PT'S FAMILY INFORMED BEDSIDE NURSE THAT THEY ARE MOVING TO A NEW HOUSE AND WANT PT TO STAY IN HOSPITAL UNTIL THEY GET SETTLED INTO THE NEW HOME. CM SPOKE PT IN ROOM REGARDING DISCHARGE. PT REPORTS SHE HAS CALLED MEDICARE AND LEFT A MESSAGE TO APPEAL HER DISCHARGE BECAUSE SHE STILL HAS A RASH AND HER FAMILY DOESN'T WANT IT TO GET INFECTED. CM DISCUSSED AVAILABILITY OF GROUP HOME FACILITY; PT DECLINES GROUP HOME FACILITY PLACEMENT, REPORTS PLAN TO GO HOME AT DISCHARGE AND THAT HER FAMILY WANTS TO MAKE SURE SHE IS OK BEFORE SHE GOES HOME. CM EXPLAINED THAT [facility] WILL RESUME HOME HEALTH WHEN PT DISCHARGES AND THAT CM WILL CALL WHEN MEDICARE DECISION IS REACHED. PT PROVIDED NEW HOME ADDRESS TO CM TO PROVIDE TO HOME HEALTH; DISCHARGE ADDRESS IS [address] [place] [id number]. CM CALLED [facility], , INFORMED OF PT'S APPEAL OF DISCHARGE AND PROVIDED NEW HOME ADDRESS FOR HOME HEALTH RESUMPTION OF SERVICES WHEN PT DOES ACTUALLY GO HOME. CM WAITING DETERMINATION FROM MEDICARE OF DISCHARGE APPEAL. WHEN PT DOES DISCHARGE, NOTIFY [facility] AT [phone] FOR RESUMPTION OF HOME HEALTH SERVICES. HU PHELPS, CASE MANAGEMENT DCP- Discharge Planning Updated by [id number]: Hu Phelps on 08/01/18 7:[address] Patient Name: DOUGLAS HILLS Encounter No: [id number] : 1965 Primary Insurance: [facility] MEDICARE SOLUTIONS Anticipated DC Date: 08-01-2018 Planned Disposition: Home with Home Health External Planned Provider: [facility] DCP follow-up note: CM RECEIVED MESSAGE FROM [facility]; THEY MET WITH PT LAST EVENING AND AFTER DISCUSSION AND ANSWERING PT'S QUESTIONS, PT DECLINES HOSPICE CARE. PT HAS DECLINED HOSPICE CARE. FOR DISCHARGE HOME WITH DAUGHTER AND [facility] RESUMPTION, NOTIFY [facility] AT [phone], FAX DISCHARGE INFORMATION TO [facility] AT [phone]. CM TO FOLLOW AND ASSIST NEEDED. Hu Phelps CASE MANAGEMENT DCP- Discharge Planning Updated by [id number]: Hu Phelps on 07/31/18 3:[address] Patient Name: DOUGLAS HILLS Encounter No: [id number] : 1965 Primary Insurance: [facility] MEDICARE SOLUTIONS Anticipated DC Date: 08-01-2018 Planned Disposition: Home with Hospice External Planned Provider: [facility] DCP follow-up note: CM RECEIVED REQUEST TO SPEAK TO PT IN ROOM. CM MET WITH PT IN ROOM TO DISCUSS DISCHARGE PLANNING AND NEEDS. PT REPORTS SPEAKING TO HER DAUGHTER AND HAS DECIDED SHE WANTS HOME HOSPICE AT DISCHARGE. CM OFFERED HOSPICE INFORMATION, PT REPORTS HAVING HOSPICE INFORMATION ALREADY AND HAS DECIDED ON [facility]. CM NOTIFIED JOSE SHAW, OBTAINED HOSPICE CONSULT ORDER. CM CALLED LETICIA AT [facility], , PROVIDED REFERRAL INFORMATION. CM FAXED REFERRAL TO [facility] AT [phone]. NURSE CELSO OF [facility] TO MEET WITH PT LATER THIS EVENING, PT REPORTS WANTING HOSPITAL BED. LETICIA OF [facility] NOTIFIED OF PT'S REQUEST FOR HOME HOSPITAL BED. IMPORTANT MESSAGE FROM MEDICARE PROVIDED AND EXPLAINED. CM WAITING HOSPICE TO MEET WITH PT TODAY AND FOR PT'S DECISION REGARDING HOME HOSPICE CARE WITH [facility]. Hu Phelps CASE MANAGEMENT DCP- Discharge Planning Updated by [id number]: Yaritza Carr on 07/26/18 4:[address] Patient Name: DOUGLAS HILLS Admission Status: ER Accout number: [id number] Admission Date: 07-26-2018 : 1965 Admission Diagnosis:CHRONIC OBSTRUCTIVE PULMONARY DISEASE W (ACUTE) EXACERB Attending: CHARLIE HARO Current LOS: 1 Anticipated DC Date: 07-29-2018 Planned Disposition: Home Primary Insurance: [facility] MEDICARE SOLUTIONS Discharge Planning Comments: CM met with patient to complete initial dc planning assessment. CM educated patient on the CM role and verbal consent given by patient to complete assessment. Patient lives at home with her daughter who is her primary caregiver. CM discussed hospice services and provided her all the brochures of the local hospice agencies. She stated she would read the brochures, discuss with her daughter, and give her daughter my phone number to call to discuss. She stated her daughter had a new phone number and she didn't have it with her but would call her grand-daughter to get it and have her daughter call me. CM gave patient my contact information to give to her daughter. At discharge patient plans to return home and feels this is a safe discharge. Patient has [facility] currently. CM will continue to follow and will assist as needed with dc plans/needs. See below for more assessment information. Convex Grinder: Yaritza Carr RN, [facility] DCPIA - Discharge Planning Initial Assessment Updated by [id number]: Yaritza Carr on 07/26/18 5:15 pm * Is the patient Alert and Oriented? Yes * PCP Dr. Burnett * Pharmacy [facility] * Preadmission Environment Home with Family * ADLs Partial Dependent * Partial ADLs (Assistance needed) Bathing Dressing Medication Management Transfers * Equipment Cane Nebulizer Oxygen Rolling Walker * List name and contact numbers for known caregivers / representatives who currently or will assist patient after discharge: Delfina Li daughter [phone] Kayden Li daughter [phone] * Verbal permission to speak to the caregivers and representatives has been obtained from the patient. Yes * Community resources currently utilized Home Health * Please name any agencies selected above. [facility] * Additional services required to return to the preadmission environment? No * Can the patient safely return to the preadmission environment? Yes * Has this patient been hospitalized within the prior 30 days at any hospital? Yes Coverage Notice Reviewer: [id number] - Hu Phelps Notice Issued Date-Time: 07/31/2018 14:45 Notice Type: IM Discharge Notice Notice Delivered To: Patient Relationship to Patient: Process Specialist Name: Delivery Method: HAND - Hand Delivered Adrianne Days: Prior Verbal Notification: Recipient Understood Notice: Yes Recipient Signature: Yes Med Rec Note Co-signed by Attending: Coverage Notice Comment: Last DP export: 08/02/18 2:54 p Patient Name: DOUGLAS HILLS Page 55434 at 1722 All edits/amendments must be made on the electronic document DICTATION DATE: 08/02/181 SALES NEGOTIATOR: CLEMENT 08/02/18 1727 RPT#: [id number] DC DATE: STATUS: ADM IN [facility] [address] [place] [address] END OF REPORT
[2018-08-02 19:44] VITALS: BP 113/55
--- NOTE | 2018-08-02 22:58 | NUR ---
PT LAYING IN BED RESTING. DENIES PAIN AT THIS TIME. VITALS STABLE. MEDS TAKEN WIHTOUT DIFFICULTY. BS 106, 8 UNITS OF INSULIN GIVEN. PT ASSISTED TO BATHROOM. NO IV ACCESS AT THIS TIME. 2L O2 PER NC. YEAST NOTED TO BREAST, ABD FOLDS, AND GROIN. PT C/O ITCHING. BENADRYL GIVEN. NO FURTHER CONCERNS AT THIS TIME. BED LOWERED AND LOCKED. CL IN REACH. WILL CONTINUE TO MONITOR.
[2018-08-02 23:50] VITALS: BP 96/29
[2018-08-03 03:45] VITALS: BP 100/59
[2018-08-03 08:00] VITALS: BP 109/31
--- NOTE | 2018-08-03 08:24 | NUR ---
PT IN BED, C/O RASH AND GENERAL ITCHNESS. REQUEST SOME TIME OF CREAM FOR THE RASH. CL IN REACH.
--- NOTE | 2018-08-03 12:35 | NUR ---
PT RESTING IN BED WITH AIR ON. RASH NOTED TO PT BODY. DENIES ANY NEEDS. NO S/S OF ACUTE DISTRESS. CL IN PLACE.
--- NOTE | 2018-08-03 12:37 | NUR ---
ADDENDUM TO MY LAST NOTE 08/03/17 1236. IGNITER CAPPER NOTE:
[2018-08-03 16:00] VITALS: BP 128/48
[2018-08-03 17:55] VITALS: BP 113/62
--- NOTE | 2018-08-03 18:10 | NUR ---
PT LYING IN BED, SLEEPING ON AND OFF. CL IN REACH. DID NOT DISTURB. NO COMPLAINTS OR CONCENRS.
--- NOTE | 2018-08-03 19:05 | NUR ---
AWAKE WATCHING TV. DENIES PAIN OR ANY NEEDS. RASH COVERING MOST OF HER BODY NOTED. STATED IT IS VERY ITCHY AND AN ALLERGIC REACTION TO AN ANTIBOTIC. INITIAL ASSESSMENTS DONE, WILL CONT PLAN OF CARE.
--- NOTE | 2018-08-03 21:45 | NUR ---
ADMIN SCHED MEDS, EYE DROPS AND 8 UNITS OF HUMULIN R FOR BS 177. GAVE DIABETIC SNACK OF JULIUS CRACKERS AND SKIM MILK. NO OTHER NEEDS VOICED.
--- NOTE | 2018-08-04 01:00 | NUR ---
ADMIN [place] 10 PER REQUEST FOR C/O SHOULDER, BACK, LEG PAIN LEVEL 9 ON NUMBER SCALE.
--- NOTE | 2018-08-04 04:55 | NUR ---
CHECKED BS AT 127. NO INSULIN REQUIRED PER SLIDING SCALE.
[2018-08-04 04:58] VITALS: BP 132/79
--- NOTE | 2018-08-04 05:40 | NUR ---
ADMIN SCHED MEDS, EYE DROPS. CHECKED BS AT 125. REQUESTED CUP OF COFFEE.
--- NOTE | 2018-08-04 07:30 | NUR ---
RECEIVED A/A/OX4. NO REQUESTS VOICED AT THIS TIME. BED IN LOW POSITION WITH SIDERAILS UP X 2 AND CALL LIGHT IN REACH. UP TO BATHROOM WITH ASST. SOB WITH ANY ACTIVITY. NO IV ACCESS. RASH OVER ENTIRE BODY AND YEAST UNDER BREASTS AND ABD FOLDS. ASSESSMENT COMPLETED.
[2018-08-04 08:59] VITALS: BP 138/86
--- NOTE | 2018-08-04 11:07 | NUR ---
EMERGENCY CARE ATTENDANT NOTE: AAOX4. PT RESTING IN BED NUDE. "RASH FEELS BETTER UNCOVERED." RED RASH NOTED TO ENTIRE BODY. NO S/S AF ACUTE DISTRESS. CL IN PLACE.
--- NOTE | 2018-08-04 11:57 | NUR ---
RN ROUNDING DONE WITH PATIENT LAYING ON RIGH SIDE WITH JEMAL HANSON CHECKING HER BLOOD SUGAR. ON 2L PER NC. PATIENT STATES THAT SHE IS GOING TO BE DISCHARGED HOME TOMORROW. PATIENT HAS A FULL BODY RASH THAT IS HEALING. SHE STATES THAT SHE HAD A REACTION AT HOME TO TEFLOR ANTIBIOTICS.
[2018-08-04 13:05] VITALS: BP 105/45
[2018-08-04 16:09] VITALS: BP 80/38
--- NOTE | 2018-08-04 19:05 | NUR ---
ALERT/AWAKE TALKING ON HER PHONE. HER RASH APPEARS TO BE MUCH IMPROVED FROM YESTERDAY. STATED SHE TOO CAN SEE THE IMPROVEMENT. REQUESTED PAIN MEDICATION WITH [employer]. NO OTHER NEEDS VOICED.
[2018-08-04 19:45] VITALS: BP 94/26
--- NOTE | 2018-08-04 22:05 | NUR ---
ADMIN SCHED MEDS WITH SIPS OF WATER. CHECKED BS AT 149. GAVE DIABETIC SNACK OF VANILLA WAFERS AND MILK. REQUEST [place] 10 FOR CHRONIC PAIN LEVEL 7 AND BENADRYL FOR ITCHING.
[2018-08-04 23:41] VITALS: BP 123/51
--- NOTE | 2018-08-05 00:40 | NUR ---
ELECTRIC POWER LINE EXAMINER TAKING VS. REQUESTED A MILK AND VANILLA WAFERS.
--- NOTE | 2018-08-05 01:49 | NUR ---
RECEIVING RESP TX. REQUESTED SOME GLOVES TO PEEL HER LEMON STATING "THE JUICE FERNANDEZ THE RASH ON MY HANDS".
[2018-08-05 03:49] VITALS: BP 148/88
[2018-08-05 05:42] LABS: ALBUMIN 2.7 g/dL (3.4-5.0); ANION GAP 7.8 mmol/L (8-16); BILIRUBIN - TOTAL 0.25 mg/dL (0.2-1.3); CALCIUM 8.9 mg/dL (8.5-10.1); CARBON DIOXIDE 37.5 mmol/L (21.0-32.0); CREATININE - SERUM 1.2 mg/dL (0.6-1.3); POTASSIUM - SERUM 3.3 mmol/L (3.5-5.1); PROTEIN - SERUM 7.1 g/dL (6.4-8.2)
[2018-08-05 05:45] LABS: HEMATOCRIT 29.7 % (36.0-48.0); HEMOGLOBIN 8.7 g/dL (12-16); MCH 24.6 pg (26.0-34.0); MCHC 29.3 g/dL (31.0-37.0); MCV 84.1 fL (80.0-100.0); MEAN PLATELET VOLUME 8.5 fL (7.4-10.4); RBC 3.53 10x6/uL (4.00-5.40); RDW 16.8 % (11.5-14.5); WBC 17.4 10x3/uL (4.8-10.8)
[2018-08-05 05:54] LABS: PLATELET COUNT 415 10x3/uL (130-400)
--- NOTE | 2018-08-05 07:30 | NUR ---
AM ROUNDS- PT UP TO SIDE OF BED A/O X4, RESP EVEN AND REGULAR ON 2L HIGH FLOW NC. NO IV ACCESS NOTED AT THIS TIME. PT DENIES ANY NEEDS, CALL LIGHT IN REACH, NAD NOTED, WILL CONTINUE PLAN OF CARE.
[2018-08-05 08:10] VITALS: BP 151/91
[2018-08-05 08:29] LABS: ANISOCYTOSIS OCC; BASOPHILS 1 % (0-2); EOSINOPHILS 2 % (0-7); LYMPHOCYTES 14 % (15-50); MONOCYTES 8 % (2-11); NEUTROPHILS 69 % (40-80); PLATELET ESTIMATE INCREASED; POLYCHROMASIA OCC; ROULEAUX OCC
--- NOTE | 2018-08-05 09:01 | NUR ---
AM MEDS GIVEN AT THIS TIME. MIKE IRRIGATOR VALVE PIPE AT BEDSIDE, TALKING TO PT. PT DENIES ANY NEEDS AT THIS TIME. CALL LIGHT IN REACH, NAD NOTED,W ILL CONTINUE TO MONITOR.
--- NOTE | 2018-08-05 09:48 | MORECARE ---
CASE MANAGEMENT DISCHARGE SUMMARY PATIENT: DOUGLAS HILLS UNIT: [id number] ADM DATE: 07/26/18 AGE: 53 : 63 SEX: F ROOM/BED: D.2102 AUTHOR: FROILAN,DOC PHYSICIAN: REFERRING PHYSICIAN: CHARLIE HARO MD DATE OF SERVICE: 08/05/18 Discharge Plan Patient Name: DOUGLAS HILLS Facility: [facility]:[place] : 1965 Planned Disposition: Home with Home Health Anticipated Discharge Date: 08/02/18 Discharge Date: Expected LOS: 7 Initial Reviewer: [id number] Initial Review Date: 07/26/2018 Generated: 08/05/18 10:48 am Comments DCP- Discharge Planning Updated by [id number]: Hu Phelps on 08/05/18 8:[address] Patient Name: DOUGLAS HILLS Encounter No: [id number] : 1965 Primary Insurance: [facility] MEDIC[employer] SOLUTIONS Anticipated DC Date: 08-02-2018 Planned Disposition: Home with Home Health External Planned Provider: [facility] DCP follow-up note: CM RECEIVED FAXED URGENT NOTICE FROM PT'S INSURANCE COMPANY, [employer] WITH DETAILED NOTICE OF DISCHARGE WITH INSTRUCTIONS TO IMMEDIATELY DELIVER TO PT OR LEGAL SUMMER ASSOCIATE. CM PROVIDED COPY TO PT AT APPROXIMATELY 0900, COPY TO CHART. CM PROVIDED AND DISCUSSED IMPORTANT MESSAGE FROM MEDICARE TO / WITH PT. PT STILL HAS HEARD NOTHING FROM MEDICARE QUALITY IMPROVEMENT OFFICE REGARDING HER APPEAL. CM WAITING DETERMINATION FROM MEDICARE OF DISCHARGE APPEAL. WHEN PT DOES DISCHARGE, NOTIFY [facility] AT [phone] FOR RESUMPTION OF HOME HEALTH SERVICES. HU PHELPS, CASE MANAGEMENT Hu Phelps DCP- Discharge Planning Updated by [email or web address]: Beryl Julian on 08/02/18 4:[address] PATIENT FILING A [employer] CLAIM TO APPEAL HER DISCHARGE. SHE WAS ON HOLD FOR >30 MINUTES WAITING TO FILE THE APPEAL. I HAVE NOTIFIED AMBER ROUSE RN CASEMANAGER CENTER AISLE CASHIER. THE FORENSIC LOCKSMITH IS AWARE WELL THE VAULT KEEPER AND FOOD AND BEVERAGE ORDER CLERK AND CUTTER TENDER. I RECEIVED THE CASE NUMBER FROM THE PATIENT [employer] HAS NOT SENT NOTICE YET (#[id number]). THE DETAILED NOTICE OF DISCHARGE WAS COMPLETED AND SIGNED BY THE PATIENT. THE ORIGINAL IS IN THE PATIENTS CHART, AND COPY WAS SENT WITH AMBER TO THE VAULT KEEPER DANA SO THAT SHE CAN FAX IT OFF SOON WE HAVE THE LETTER. WILL WAIT FOR THE KEPRO DETERMINATION. DCP- Discharge Planning Updated by [id number]: Hu Phelps on 08/02/18 2:[address] Patient Name: DOUGLAS HILLS Encounter No: [id number] : 1965 Primary Insurance: [facility] MEDIC[employer] SOLUTIONS Anticipated DC Date: 08-02-2018 Planned Disposition: Home with Home Health External Planned Provider: [facility] DCP follow-up note: CM RECEIVED DISCHARGE ORDER, SPOKE TO PT IN ROOM, DISCUSSED DISCHARGE NEEDS. PT REPORTS SHE WANTS [facility] TO RESUME HER CARE AND IS SURE THAT SHE DOES NOT WANT HOSPICE. PT DENIES FURTHER DISCHARGE NEEDS, HER DAUGHTER WILL PICK HER UP TODAY FOR DISCHARGE HOME. CM CALLED [facility], , SPOKE TO OLMIPIA, VERIFIED PT IS ON HOLD FOR HOSPITAL STAY, PROVIDED REFERRAL INFORMATION, PT PLACED ON SCHEDULE FOR RESUMPTION OF HOME HEALTH SERVICES. CM FAXED REFERRAL AND DISCHARGE INFORMATION INFORMATION TO [facility], . FORENSIC LOCKSMITH NURSE NOTIFIED. Hu Phelps, CASE MANAGEMENT Appended by Hu Phelps on 08/02/2018 15:30 CONTINUOUS LINTER DRIER OPERATOR: CM SPOKE TO FORENSIC LOCKSMITH NURSE WHO INFORMED CM THAT PT'S FAMILY INFORMED BEDSIDE NURSE THAT THEY ARE MOVING TO A NEW HOUSE AND WANT PT TO STAY IN HOSPITAL UNTIL THEY GET SETTLED INTO THE NEW HOME. CM SPOKE PT IN ROOM REGARDING DISCHARGE. PT REPORTS SHE HAS CALLED MEDICARE AND LEFT A MESSAGE TO APPEAL HER DISCHARGE BECAUSE SHE STILL HAS A RASH AND HER FAMILY DOESN'T WANT IT TO GET INFECTED. CM DISCUSSED AVAILABILITY OF DETENTION FACILITY; PT DECLINES DETENTION FACILITY PLACEMENT, REPORTS PLAN TO GO HOME AT DISCHARGE AND THAT HER FAMILY WANTS TO MAKE SURE SHE IS OK BEFORE SHE GOES HOME. CM EXPLAINED THAT [facility] WILL RESUME HOME HEALTH WHEN PT DISCHARGES AND THAT CM WILL CALL WHEN MEDICARE DECISION IS REACHED. PT PROVIDED NEW HOME ADDRESS TO CM TO PROVIDE TO HOME HEALTH; DISCHARGE ADDRESS IS [address] [place] [address]. CM CALLED [facility], , INFORMED OF PT'S APPEAL OF DISCHARGE AND PROVIDED NEW HOME ADDRESS FOR HOME HEALTH RESUMPTION OF SERVICES WHEN PT DOES ACTUALLY GO HOME. CM WAITING DETERMINATION FROM MEDICARE OF DISCHARGE APPEAL. WHEN PT DOES DISCHARGE, NOTIFY [facility] AT [phone] FOR RESUMPTION OF HOME HEALTH SERVICES. CARMEN MANCILLA DCP- Discharge Planning Updated by [id number]: Hu Phelps on 08/01/18 7:[address] Patient Name: DOUGLAS HILLS Encounter No: [id number] : 1965 Primary Insurance: [facility] MEDIC[facility] SOLUTIONS Anticipated DC Date: 08-01-2018 Planned Disposition: Home with Home Health External Planned Provider: [facility] DCP follow-up note: CM RECEIVED MESSAGE FROM AMY OF [facility]; THEY MET WITH PT LAST EVENING AND AFTER DISCUSSION AND ANSWERING PT'S QUESTIONS, PT DECLINES HOSPICE CARE. PT HAS DECLINED HOSPICE CARE. FOR DISCHARGE HOME WITH DAUGHTER AND [facility] RESUMPTION, NOTIFY [facility] AT [phone], FAX DISCHARGE INFORMATION TO [facility] AT [phone]. CM TO FOLLOW AND ASSIST NEEDED. CARMEN Mancilla DCP- Discharge Planning Updated by [id number]: Hu Phelps on 07/31/18 3:[address] Patient Name: DOUGLAS HILLS Encounter No: [id number] : 1965 Primary Insurance: [facility] MEDIC[employer] SOLUTIONS Anticipated DC Date: 08-01-2018 Planned Disposition: Home with Hospice External [facility] DCP follow-up note: CM RECEIVED REQUEST TO SPEAK TO PT IN ROOM. CM MET WITH PT IN ROOM TO DISCUSS DISCHARGE PLANNING AND NEEDS. PT REPORTS SPEAKING TO HER DAUGHTER AND HAS DECIDED SHE WANTS HOME HOSPICE AT DISCHARGE. CM OFFERED HOSPICE INFORMATION, PT REPORTS HAVING HOSPICE INFORMATION ALREADY AND HAS DECIDED ON [facility]. CM NOTIFIED JOSE SHAW, OBTAINED HOSPICE CONSULT ORDER. CM CALLED LETICIA AT [facility], , PROVIDED REFERRAL INFORMATION. CM FAXED REFERRAL TO [facility] AT [phone]. NURSE [place] OF [facility] TO MEET WITH PT LATER THIS EVENING, PT REPORTS WANTING HOSPITAL BED. LETICIA OF [facility] NOTIFIED OF PT'S REQUEST FOR HOME HOSPITAL BED. IMPORTANT MESSAGE FROM MEDICARE PROVIDED AND EXPLAINED. CM WAITING HOSPICE TO MEET WITH PT TODAY AND FOR PT'S DECISION REGARDING HOME HOSPICE CARE WITH [facility]. Hu Phelps, CASE MANAGEMENT DCP- Discharge Planning Updated by [id number]: Yaritza Carr on 07/26/18 4:[address] Patient Name: DOUGLAS HILLS Admission Status: ER Accout number: [id number] Admission Date: 07-26-2018 : 1965 Admission Diagnosis:CHRONIC OBSTRUCTIVE PULMONARY DISEASE W (ACUTE) EXACERB Attending: CHARLIE HARO Current LOS: 1 Anticipated DC Date: 07-29-2018 Planned Disposition: Home Primary Insurance: [facility] MEDIC[employer] SOLUTIONS Discharge Planning Comments: CM met with patient to complete initial dc planning assessment. CM educated patient on the CM role and verbal consent given by patient to complete assessment. Patient lives at home with her daughter who is her primary caregiver. CM discussed hospice services and provided her all the brochures of the local hospice agencies. She stated she would read the brochures, discuss with her daughter, and give her daughter my phone number to call to discuss. She stated her daughter had a new phone number and she didn't have it with her but would call her grand-daughter to get it and have her daughter call me. CM gave patient my contact information to give to her daughter. At discharge patient plans to return home and feels this is a safe discharge. Patient has [facility] currently. CM will continue to follow and will assist as needed with dc plans/needs. See below for more assessment information. Electronics Technician Apprentice: Yaritza Carr RN, [facility] DCPIA - Discharge Planning Initial Assessment Updated by [id number]: Yaritza Carr on 07/26/18 5:15 pm * Is the patient Alert and Oriented? Yes * PCP Dr. Burnett * Pharmacy [facility] [address] * Preadmission Environment Home with Family * ADLs Partial Dependent * Partial ADLs (Assistance needed) Bathing Dressing Medication Management Transfers * Equipment Cane Nebulizer Oxygen Rolling Walker * List name and contact numbers for known caregivers / representatives who currently or will assist patient after discharge: Delfina Li daughter [phone] Kayden Li daughter [phone] * Verbal permission to speak to the caregivers and representatives has been obtained from the patient. Yes * Community resources currently utilized Home Health * Please name any agencies selected above. [facility] * Additional services required to return to the preadmission environment? No * Can the patient safely return to the preadmission environment? Yes * Has this patient been hospitalized within the prior 30 days at any hospital? Yes Coverage Notice Reviewer: [id number] Phelps Notice Issued Date-Time: 07/31/2018 14:45 Notice Type: IM Discharge Notice Notice Delivered To: Patient Relationship to Patient: Vault Keeper Name: Delivery Method: HAND - Hand Delivered Adrianne Days: Prior Verbal Notification: Recipient Understood Notice: Yes Recipient Signature: Yes Med Rec Note Co-signed by Attending: Coverage Notice Comment: Reviewer: [id number] Phelps Notice Issued Date-Time: 08/05/2018 9:00 Notice Type: IM Discharge Notice Notice Delivered To: Patient Relationship to Patient: Vault Keeper Name: Delivery Method: HAND - Hand Delivered Adrianne Days: Prior Verbal Notification: Recipient Understood Notice: Yes Recipient Signature: Yes Med Rec Note Co-signed by Attending: Coverage Notice Comment: Last DP export: 08/02/18 4:28 p Patient Name: DOUGLAS HILLS Page [id number] at 0948 All edits/amendments must be made on the electronic document DICTATION DATE: 08/05/18946 SURVEILLANCE SYSTEMS ENGINEER: CLEMENT 08/05/18946 RPT#: [id number] DC DATE: STATUS: ADM IN [facility] [address] [place] [address] END OF REPORT
--- NOTE | 2018-08-05 11:15 | NUR ---
BLOOD SUGAR OF 154, 4UNITS GIVEN PER S/S. PT DENIES ANY NEEDS AT THIS TIME. CALL LIGHT IN REACH, NAD NOTED, WILL CONTINUE OT MONITOR.
--- NOTE | 2018-08-05 11:39 | MORECARE ---
CASE MANAGEMENT DISCHARGE SUMMARY PATIENT: DOUGLAS HILLS UNIT: [id number] ADM DATE: 07/26/18 AGE: 53 : 63 SEX: F ROOM/BED: D.2103 AUTHOR: FROILAN,DOC PHYSICIAN: REFERRING PHYSICIAN: CHARLIE HARO MD DATE OF SERVICE: 08/05/18 Discharge Plan Patient Name: DOUGLAS HILLS Facility: [facility]:[place] : 1965 Planned Disposition: Home with Home Health Anticipated Discharge Date: 08/05/18 Discharge Date: Expected LOS: 10 Initial Reviewer: [id number] Initial Review Date: 07/26/2018 Generated: 08/05/18 12:39 pm Comments DCP- Discharge Planning Updated by [id number]: Hu Phelps on 08/05/18 10:[address] Patient Name: DOUGLAS HILLS Encounter No: [id number] : 1965 Primary Insurance: [place] [employer] Anticipated DC Date: 08-02-2018 Planned Disposition: Home with Home Health External Planned Provider: [facility] DCP follow-up note: CM RECEIVED FAXED URGENT NOTICE FROM PT'S INSURANCE COMPANY, [employer] WITH DETAILED NOTICE OF DISCHARGE WITH INSTRUCTIONS TO IMMEDIATELY DELIVER TO PT OR LEGAL DOCTOR OF NATUROPATHIC MEDICINE. CM PROVIDED COPY TO PT AT APPROXIMATELY 0900, COPY TO CHART. CM PROVIDED AND DISCUSSED IMPORTANT MESSAGE FROM MEDICARE TO / WITH PT. PT STILL HAS HEARD NOTHING FROM MEDICARE QUALITY IMPROVEMENT OFFICE REGARDING HER APPEAL. CM WAITING DETERMINATION FROM MEDICARE OF DISCHARGE APPEAL. WHEN PT DOES DISCHARGE, NOTIFY [facility] AT [phone] FOR RESUMPTION OF HOME HEALTH SERVICES. HU PHELPS, CASE MANAGEMENT Hu Phelps Appended by Hu Phelps on 08/05/2018 11:36 GUARD CAPTAIN: CM SPOKE TO CM GOLF RANGE ATTENDANT PADMA WHO ADVISED THAT MEDICARE DID NOT RECEIVE MEDICAL RECORDS FROM HOSPITAL ON SUNDAY LAST WEEK AFTER PT'S APPEAL OF DISCHARGE; MEDICARE HAS FOUND ON SIDE OF PT ON THOSE GROUNDS. MEDICARE ADVISED THAT PT MAY DISCHARGE TODAY AND IF PT IS NOT IN AGREEMENT WITH DISCHARGE, SHE WILL NEED TO CALL QUALITY IMPROVEMENT OFFICE TO APPEAL AGAIN. CM SPOKE TO PT IN ROOM. PT INFORMED OF ABOVE. CM EXPLAINED IMPORTANT MESSAGE FROM MEDICARE AGAIN, PT HAD RECEIVED IT EARLIER TODAY FROM CM AND REPORTS UNDERSTANDING. PT REPORTS SHE HAS NOT PLANS TO APPEAL HER DISCHARGE TODAY STATING HER RASH IS BETTER AND SHE IS READY TO GO NOW. PT REPORTS FAMILY WILL PICK HER UP FOR DISCHARGE HOME TODAY AND PT WOULD LIKE HER [facility] RESUMED. CM NOTIFED EDGAR ESTEBAN. WHEN PT DOES DISCHARGE, NOTIFY [facility] AT [phone] FOR RESUMPTION OF HOME HEALTH SERVICES. HU PHELPS, CASE MANAGEMENT DCP- Discharge Planning Updated by [id number]: Beryl Eliel on 08/02/18 4:[address] PATIENT FILING A [employer] CLAIM TO APPEAL HER DISCHARGE. SHE WAS ON HOLD FOR >30 MINUTES WAITING TO FILE THE APPEAL. I HAVE NOTIFIED AMBER ROUSE RN CASEMANAGER GOLF RANGE ATTENDANT. THE CLERK IS AWARE WELL THE INDEPENDENT LIVING INSTRUCTOR AND PV INSTALLER TECH AND YARD TRUCK DRIVER. I RECEIVED THE CASE NUMBER FROM THE PATIENT [employer] [facility] HAS NOT SENT NOTICE YET (#[id number]). THE DETAILED NOTICE OF DISCHARGE WAS COMPLETED AND SIGNED BY THE PATIENT. THE ORIGINAL IS IN THE PATIENTS CHART, AND COPY WAS SENT WITH AMBER TO THE INDEPENDENT LIVING INSTRUCTOR DANA SO THAT SHE CAN FAX IT OFF SOON WE HAVE THE LETTER. WILL WAIT FOR THE KEPRO DETERMINATION. DCP- Discharge Planning Updated by [id number]: Hu Phelps on 08/02/18 2:[address] Patient Name: DOUGLAS HILLS Encounter No: [id number] : 1965 Primary Insurance: [employer] [employer] Anticipated DC Date: 08-02-2018 Planned Disposition: Home with Home Health External Planned Provider: [facility] DCP follow-up note: CM RECEIVED DISCHARGE ORDER, SPOKE TO PT IN ROOM, DISCUSSED DISCHARGE NEEDS. PT REPORTS SHE WANTS [facility] TO RESUME HER CARE AND IS SURE THAT SHE DOES NOT WANT HOSPICE. PT DENIES FURTHER DISCHARGE NEEDS, HER DAUGHTER WILL PICK HER UP TODAY FOR DISCHARGE HOME. CM CALLED [facility], , SPOKE TO [place]LIM[place]IA, RACHELE PT IS ON HOLD FOR HOSPITAL STAY, PROVIDED REFERRAL INFORMATION, PT PLACED ON SCHEDULE FOR RESUMPTION OF HOME HEALTH SERVICES. CM FAXED REFERRAL AND DISCHARGE INFORMATION INFORMATION TO [facility], . CLERK NURSE NOTIFIED. Hu Phelps, CASE MANAGEMENT Appended by Hu Phelps on 08/02/2018 15:30 GUARD CAPTAIN: CM SPOKE TO CLERK NURSE WHO INFORMED CM THAT PT'S FAMILY INFORMED BEDSIDE NURSE THAT THEY ARE MOVING TO A NEW HOUSE AND WANT PT TO STAY IN HOSPITAL UNTIL THEY GET SETTLED INTO THE NEW HOME. CM SPOKE PT IN ROOM REGARDING DISCHARGE. PT REPORTS SHE HAS CALLED MEDICARE AND LEFT A MESSAGE TO APPEAL HER DISCHARGE BECAUSE SHE STILL HAS A RASH AND HER FAMILY DOESN'T WANT IT TO GET INFECTED. CM DISCUSSED AVAILABILITY OF PRISON FACILITY; PT DECLINES PRISON FACILITY PLACEMENT, REPORTS PLAN TO GO HOME AT DISCHARGE AND THAT HER FAMILY WANTS TO MAKE SURE SHE IS OK BEFORE SHE GOES HOME. CM EXPLAINED THAT [facility] WILL RESUME HOME HEALTH WHEN PT DISCHARGES AND THAT CM WILL CALL WHEN MEDICARE DECISION IS REACHED. PT PROVIDED NEW HOME ADDRESS TO CM TO PROVIDE TO HOME HEALTH; DISCHARGE ADDRESS IS [address] [place] [address]. CM CALLED [facility], , INFORMED OF PT'S APPEAL OF DISCHARGE AND PROVIDED NEW HOME ADDRESS FOR HOME HEALTH RESUMPTION OF SERVICES WHEN PT DOES ACTUALLY GO HOME. CM WAITING DETERMINATION FROM MEDICARE OF DISCHARGE APPEAL. WHEN PT DOES DISCHARGE, NOTIFY [facility] AT [phone] FOR RESUMPTION OF HOME HEALTH SERVICES. HU PHELPS, CASE MANAGEMENT DCP- Discharge Planning Updated by [id number]: Hu Phelps on 08/01/18 7:[address] Patient Name: DOUGLAS HILLS Encounter No: [id number] : 1965 Primary Insurance: [employer] [employer] Anticipated DC Date: 08-01-2018 Planned Disposition: Home with Home Health External Planned Provider: [facility] DCP follow-up note: CM [facility]CEIV[facility]ESS[facility]; THEY MET WITH PT LAST EVENING AND AFTER DISCUSSION AND ANSWERING PT'S QUESTIONS, PT DECLINES HOSPICE CARE. PT HAS DECLINED HOSPICE CARE. FOR DISCHARGE HOME WITH DAUGHTER AND [facility] RESUMPTION, NOTIFY [facility] AT [phone], FAX DISCHARGE INFORMATION TO [facility] AT [phone]. CM TO FOLLOW AND ASSIST NEEDED. Hu Phelps CASE MANAGEMENT DCP- Discharge Planning Updated by [id number]: Hu Phelps on 07/31/18 3:[address] Patient Name: DOUGLAS HILLS Encounter No: [id number] : 1965 Primary Insurance: [employer] [employer] Anticipated DC Date: 08-01-2018 Planned Disposition: Home with Hospice External Planned Provider: [facility] DCP follow-up note: CM RECEIVED REQUEST TO SPEAK TO PT IN ROOM. CM MET WITH PT IN ROOM TO DISCUSS DISCHARGE PLANNING AND NEEDS. PT REPORTS SPEAKING TO HER DAUGHTER AND HAS DECIDED SHE WANTS HOME HOSPICE AT DISCHARGE. CM OFFERED HOSPICE INFORMATION, PT REPORTS HAVING HOSPICE INFORMATION ALREADY AND HAS DECIDED ON [facility]. CM NOTIFIED JOSE SHAW, OBTAINED HOSPICE CONSULT ORDER. CM CALLED LETICIA AT [facility], , PROVIDED REFERRAL INFORMATION. CM FAXED REFERRAL TO [facility] AT [phone]. NURSE CEL[facility] OF [facility] TO MEET WITH PT LATER THIS EVENING, PT REPORTS WANTING HOSPITAL BED. [facility] OF [facility] NOTIFIED OF PT'S REQUEST FOR HOME HOSPITAL BED. IMPORTANT MESSAGE FROM MEDICARE PROVIDED AND EXPLAINED. CM WAITING HOSPICE TO MEET WITH PT TODAY AND FOR PT'S DECISION REGARDING HOME HOSPICE CARE WITH [facility]. Hu Phelps, CASE MANAGEMENT DCP- Discharge Planning Updated by [id number]: Yaritza Carr on 07/26/18 4:[address] Patient Name: DOUGLAS HILLS Admission Status: ER Accout number: [id number] Admission Date: 07-26-2018 : 1965 Admission Diagnosis:CHRONIC OBSTRUCTIVE PULMONARY DISEASE W (ACUTE) EXACERB Attending: CHARLIE HARO Current LOS: 1 Anticipated DC Date: 07-29-2018 Planned Disposition: Home Primary Insurance: [employer] [employer] Discharge Planning Comments: CM met with patient to complete initial dc planning assessment. CM educated patient on the CM role and verbal consent given by patient to complete assessment. Patient lives at home with her daughter who is her primary caregiver. CM discussed hospice services and provided her all the brochures of the local hospice agencies. She stated she would read the brochures, discuss with her daughter, and give her daughter my phone number to call to discuss. She stated her daughter had a new phone number and she didn't have it with her but would call her grand-daughter to get it and have her daughter call me. CM gave patient my contact information to give to her daughter. At discharge patient plans to return home and feels this is a safe discharge. Patient has [facility] currently. CM will continue to follow and will assist as needed with dc plans/needs. See below for more assessment information. Air Twist Operator: Yaritza Carr RN, [facility] DCPIA - Discharge Planning Initial Assessment Updated by [id number]: Yaritza Carr on 07/26/18 5:15 pm * Is the patient Alert and Oriented? Yes * PCP Dr. Burnett * Pharmacy [facility] on [address] * Preadmission Environment Home with Family * ADLs Partial Dependent * Partial ADLs (Assistance needed) Bathing Dressing Medication Management Transfers * Equipment Cane Nebulizer Oxygen Rolling Walker * List name and contact numbers for known caregivers / representatives who currently or will assist patient after discharge: Delfina Li daughter [phone] Kayden Li daughter [phone] * Verbal permission to speak to the caregivers and representatives has been obtained from the patient. Yes * Community resources currently utilized Home Health * Please name any agencies selected above. [facility] * Additional services required to return to the preadmission environment? No * Can the patient safely return to the preadmission environment? Yes * Has this patient been hospitalized within the prior 30 days at any hospital? Yes Coverage Notice Reviewer: [id number] Bayron Phelps Notice Issued Date-Time: 07/31/2018 14:45 Notice Type: IM Discharge Notice Notice Delivered To: Patient Relationship to Patient: Employee Placement Specialist Name: Delivery Method: HAND - Hand Delivered Adrianne Days: Prior Verbal Notification: Recipient Understood Notice: Yes Recipient Signature: Yes Med Rec Note Co-signed by Attending: Coverage Notice Comment: Reviewer: [id number] Bayron Phelps Notice Issued Date-Time: 08/05/2018 9:00 Notice Type: IM Discharge Notice Notice Delivered To: Patient Relationship to Patient: Employee Placement Specialist Name: Delivery Method: HAND - Hand Delivered Adrianne Days: Prior Verbal Notification: Recipient Understood Notice: Yes Recipient Signature: Yes Med Rec Note Co-signed by Attending: Coverage Notice Comment: Last DP export: 08/05/18 8:48 a Patient Name: DOUGLAS HILLS Page [id number] at 1139 All edits/amendments must be made on the electronic document DICTATION DATE: 08/05/18 1137 BUDGET ENGINEER: CLEMENT 08/05/18 1134 RPT#: [id number] DC DATE: STATUS: ADM IN [facility] [address] [place] [address] END OF REPORT
[2018-08-05 11:45] VITALS: BP 145/59
--- NOTE | 2018-08-05 14:14 | NUR ---
PROVIDED VERBALAND WRITTEN DISCHARGE TEACHING TO PT WHO VERBALIZED UNDERSTANDING REGARDING TEACHING. PT WILL NOTIFY THIS NURSE WHEN READY FOR WHEELCHAIR.
--- NOTE | 2018-08-05 15:30 | NUR ---
PT CALLED THIS NURSE TO HER ROOM AND INFOMRED ME THAT HER INSURANCE WILL NOT PAY FOR HER GLYBURIDE, SO SHE HAS TO PAY 46 OUT OF POCKET AND SHE CANNOT AFFORD THAT. CALLED [facility] AND THEY STATED THAT IT WOULD COST 39.[address] [facility] AND THEY STATED IT WOULD BE 34.51. WENT AND INFORMED PT AND PT STATED THAT SHE WOULD JUST STICK WITH [employer] TO GET HER MEDICATION.
--- NOTE | 2018-08-05 16:29 | NUR ---
PT LEFT UNIT VIA WHEELCHAIR, WITH ALL BELONGIGNS, ACCOMPANIED BY FAMILY, NAD NOTED.
--- NOTE | 2018-08-05 17:02 | MORECARE ---
CASE MANAGEMENT DISCHARGE SUMMARY PATIENT: DOUGLAS HILLS UNIT: [id number] ADM DATE: 07/26/18 AGE: 53 : 63 SEX: F ROOM/BED: D.2102 AUTHOR: FROILAN,DOC PHYSICIAN: REFERRING PHYSICIAN: CHARLIE HARO MD DATE OF SERVICE: 08/05/18 Discharge Plan Patient Name: DOUGLAS HILLS Facility: [facility]:[place] : 1965 Planned Disposition: Home with Home Health Anticipated Discharge Date: 08/05/18 Discharge Date: 08/05/2018 Expected LOS: 10 Initial Reviewer: [email or web address] Initial Review Date: 07/26/2018 Generated: 08/05/18 6:02 pm Comments DCP- Discharge Planning Updated by [id number]: Hu Phelps on 08/05/18 3:[address] Patient Name: DOUGLAS HILLS Encounter No: [id number] : 1965 Primary Insurance: [facility] MEDICARE SOLUTIONS Anticipated DC Date: 08-02-2018 Planned Disposition: Home with Home Health External Planned Provider: [facility] DCP follow-up note: CM RECEIVED FAXED URGENT NOTICE FROM PT'S INSURANCE COMPANY, [employer] WITH DETAILED NOTICE OF DISCHARGE WITH INSTRUCTIONS TO IMMEDIATELY DELIVER TO PT OR LEGAL RUBY ON RAILS DEVELOPER. CM PROVIDED COPY TO PT AT APPROXIMATELY 0900, COPY TO CHART. CM PROVIDED AND DISCUSSED IMPORTANT MESSAGE FROM MEDICARE TO / WITH PT. PT STILL HAS HEARD NOTHING FROM MEDICARE QUALITY IMPROVEMENT OFFICE REGARDING HER APPEAL. CM WAITING DETERMINATION FROM MEDICARE OF DISCHARGE APPEAL. WHEN PT DOES DISCHARGE, NOTIFY [facility] AT [phone] FOR RESUMPTION OF HOME HEALTH SERVICES. HU PHELPS, CASE MANAGEMENT Hu Phelps Appended by Hu Phelps on 08/05/2018 11:36 COMPOUND SPECIALIST: CM SPOKE TO CM HYDRO GENERATION MANAGER PADMA WHO ADVISED THAT MEDICARE DID NOT RECEIVE MEDICAL RECORDS FROM HOSPITAL ON SUNDAY LAST WEEK AFTER PT'S APPEAL OF DISCHARGE; MEDICARE HAS FOUND ON SIDE OF PT ON THOSE GROUNDS. MEDICARE ADVISED THAT PT MAY DISCHARGE TODAY AND IF PT IS NOT IN AGREEMENT WITH DISCHARGE, SHE WILL NEED TO CALL QUALITY IMPROVEMENT OFFICE TO APPEAL AGAIN. CM SPOKE TO PT IN ROOM. PT INFORMED OF ABOVE. CM EXPLAINED IMPORTANT MESSAGE FROM MEDICARE AGAIN, PT HAD RECEIVED IT EARLIER TODAY FROM CM AND REPORTS UNDERSTANDING. PT REPORTS SHE HAS NOT PLANS TO APPEAL HER DISCHARGE TODAY STATING HER RASH IS BETTER AND SHE IS READY TO GO NOW. PT REPORTS FAMILY WILL PICK HER UP FOR DISCHARGE HOME TODAY AND PT WOULD LIKE HER [facility] RESUMED. CM NOTIFED EDGAR ESTEBAN. WHEN PT DOES DISCHARGE, NOTIFY [facility] AT [phone] FOR RESUMPTION OF HOME HEALTH SERVICES. HU PHELPS, CASE MANAGEMENT Appended by Hu Phelps on 08/05/2018 16:59 COMPOUND SPECIALIST: PT DISCHARGED HOME. CM CALLED [facility] AT [phone], NOTIFIED ASSISTED LIVING HOME DIRECTOR NURSE UZMA OF DISCHARGE FOR RESUMPTION OF HOME HEALTH SERVICES. HU PHELPS, CASE MANAGEMENT DCP- Discharge Planning Updated by [id number]: Berylally Julian on 08/02/18 4:[address] PATIENT FILING A [employer] CLAIM TO APPEAL HER DISCHARGE. SHE WAS ON HOLD FOR >30 MINUTES WAITING TO FILE THE APPEAL. I HAVE NOTIFIED AMBER ROUSE RN CASEMANAGER HYDRO GENERATION MANAGER. THE ELECTRONICS PARTS SALES REPRESENTATIVE IS AWARE WELL THE BRINE TANK SEPARATOR OPERATOR AND WALL WORKER AND SUPERVISOR HOT DIP TINNING. I RECEIVED THE CASE NUMBER FROM THE PATIENT [employer] HAS NOT SENT NOTICE YET (#[id number]). THE DETAILED NOTICE OF DISCHARGE WAS COMPLETED AND SIGNED BY THE PATIENT. THE ORIGINAL IS IN THE PATIENTS CHART, AND COPY WAS SENT WITH AMBER TO THE BRINE TANK SEPARATOR OPERATOR DANA SO THAT SHE CAN FAX IT OFF SOON WE HAVE THE LETTER. WILL WAIT FOR THE [employer] DETERMINATION. DCP- Discharge Planning Updated by [email or web address]: Hu Phelps on 08/02/18 2:[address] Patient Name: DOUGLAS HILLS Encounter No: [id number] : 1965 Primary Insurance: [facility] MEDICARE SOLUTIONS Anticipated DC Date: 08-02-2018 Planned Disposition: Home with Home Health External Planned Provider: [facility] DCP follow-up note: CM RECEIVED DISCHARGE ORDER, SPOKE TO PT IN ROOM, DISCUSSED DISCHARGE NEEDS. PT REPORTS SHE WANTS [facility] TO RESUME HER CARE AND IS SURE THAT SHE DOES NOT WANT HOSPICE. PT DENIES FURTHER DISCHARGE NEEDS, HER DAUGHTER WILL PICK HER UP TODAY FOR DISCHARGE HOME. CM CALLED [facility], , SPOKE TO OLIMPIA, VERIFIED PT IS ON HOLD FOR HOSPITAL STAY, PROVIDED REFERRAL INFORMATION, PT PLACED ON SCHEDULE FOR RESUMPTION OF HOME HEALTH SERVICES. CM FAXED REFERRAL AND DISCHARGE INFORMATION INFORMATION TO [facility], . ELECTRONICS PARTS SALES REPRESENTATIVE NURSE NOTIFIED. Hu Phelps, CASE MANAGEMENT Appended by Hu Phelps on 08/02/2018 15:30 COMPOUND SPECIALIST: CM SPOKE TO ELECTRONICS PARTS SALES REPRESENTATIVE NURSE WHO INFORMED CM THAT PT'S FAMILY INFORMED BEDSIDE NURSE THAT THEY ARE MOVING TO A NEW HOUSE AND WANT PT TO STAY IN HOSPITAL UNTIL THEY GET SETTLED INTO THE NEW HOME. CM SPOKE PT IN ROOM REGARDING DISCHARGE. PT REPORTS SHE HAS CALLED MEDICARE AND LEFT A MESSAGE TO APPEAL HER DISCHARGE BECAUSE SHE STILL HAS A RASH AND HER FAMILY DOESN'T WANT IT TO GET INFECTED. CM DISCUSSED AVAILABILITY OF GROUP HOME FACILITY; PT DECLINES GROUP HOME FACILITY PLACEMENT, REPORTS PLAN TO GO HOME AT DISCHARGE AND THAT HER FAMILY WANTS TO MAKE SURE SHE IS OK BEFORE SHE GOES HOME. CM EXPLAINED THAT [facility] WILL RESUME HOME HEALTH WHEN PT DISCHARGES AND THAT CM WILL CALL WHEN MEDICARE DECISION IS REACHED. PT PROVIDED NEW HOME ADDRESS TO CM TO PROVIDE TO HOME HEALTH; DISCHARGE ADDRESS IS [address] [place], [place] [id number]. CM CALLED [facility], , INFORMED OF PT'S APPEAL OF DISCHARGE AND PROVIDED NEW HOME ADDRESS FOR HOME HEALTH RESUMPTION OF SERVICES WHEN PT DOES ACTUALLY GO HOME. CM WAITING DETERMINATION FROM MEDICARE OF DISCHARGE APPEAL. WHEN PT DOES DISCHARGE, NOTIFY [facility] AT [phone] FOR RESUMPTION OF HOME HEALTH SERVICES. HU PHELPS, CASE MANAGEMENT DCP- Discharge Planning Updated by [id number]: Hu Phelps on 08/01/18 7:[address] Patient Name: DOUGLAS HILLS Encounter No: [id number] : 1965 Primary Insurance: [facility] MEDICARE SOLUTIONS Anticipated DC Date: 08-01-2018 Planned Disposition: Home with Home Health External [facility] follow-up note: CM [facility]; THEY MET WITH PT LAST EVENING AND AFTER DISCUSSION AND ANSWERING PT'S QUESTIONS, PT DECLINES HOSPICE CARE. PT HAS DECLINED HOSPICE CARE. FOR DISCHARGE HOME WITH DAUGHTER AND [facility] RESUMPTION, NOTIFY [facility] AT [phone], FAX DISCHARGE INFORMATION TO [facility] AT [phone]. CM TO FOLLOW AND ASSIST NEEDED. Hu Phelps CASE MANAGEMENT DCP- Discharge Planning Updated by [id number]: Hu Phelps on 07/31/18 3:[address] Patient Name: DOUGLAS HILLS Encounter No: [id number] : 1965 Primary Insurance: [facility] MEDICARE SOLUTIONS Anticipated DC Date: 08-01-2018 Planned Disposition: Home with Hospice External Planned Provider: [facility] DCP follow-up note: CM RECEIVED REQUEST TO SPEAK TO PT IN ROOM. CM MET WITH PT IN ROOM TO DISCUSS DISCHARGE PLANNING AND NEEDS. PT REPORTS SPEAKING TO HER DAUGHTER AND HAS DECIDED SHE WANTS HOME HOSPICE AT DISCHARGE. CM OFFERED HOSPICE INFORMATION, PT REPORTS HAVING HOSPICE INFORMATION ALREADY AND HAS DECIDED ON [facility]. CM NOTIFIED JOSE SHAW, OBTAINED HOSPICE CONSULT ORDER. CM CALLED LETICIA AT [facility], , PROVIDED REFERRAL INFORMATION. CM FAXED REFERRAL TO [facility] AT [phone]. NURSE CELSO OF [facility] TO MEET WITH PT LATER THIS EVENING, PT REPORTS WANTING HOSPITAL BED. LETICIA OF [facility] NOTIFIED OF PT'S REQUEST FOR HOME HOSPITAL BED. IMPORTANT MESSAGE FROM MEDICARE PROVIDED AND EXPLAINED. CM WAITING HOSPICE TO MEET WITH PT TODAY AND FOR PT'S DECISION REGARDING HOME HOSPICE CARE WITH [facility]. Hu Phelps CASE MANAGEMENT DCP- Discharge Planning Updated by [id number]: Yaritza Carr on 07/26/18 4:[address] Patient Name: DOUGLAS HILLS Admission Status: ER Accout number: [id number] Admission Date: 07-26-2018 : 1965 Admission Diagnosis:CHRONIC OBSTRUCTIVE PULMONARY DISEASE W (ACUTE) EXACERB Attending: CHARLIE HARO Current LOS: 1 Anticipated DC Date: 07-29-2018 Planned Disposition: Home Primary Insurance: [facility] MEDICARE SOLUTIONS Discharge Planning Comments: CM met with patient to complete initial dc planning assessment. CM educated patient on the CM role and verbal consent given by patient to complete assessment. Patient lives at home with her daughter who is her primary caregiver. CM discussed hospice services and provided her all the brochures of the local hospice agencies. She stated she would read the brochures, discuss with her daughter, and give her daughter my phone number to call to discuss. She stated her daughter had a new phone number and she didn't have it with her but would call her grand-daughter to get it and have her daughter call me. CM gave patient my contact information to give to her daughter. At discharge patient plans to return home and feels this is a safe discharge. Patient has [facility] currently. CM will continue to follow and will assist as needed with dc plans/needs. See below for more assessment information. Rehab Director: Yaritza Carr RN, [facility] DCPIA - Discharge Planning Initial Assessment Updated by [id number]: Yaritza Carr on 07/26/18 5:15 pm * Is the patient Alert and Oriented? Yes * PCP Dr. Burnett * Pharmacy [facility] [address] * Preadmission Environment Home with Family * ADLs Partial Dependent * Partial ADLs (Assistance needed) Bathing Dressing Medication Management Transfers * Equipment Cane Nebulizer Oxygen Rolling Walker * List name and contact numbers for known caregivers / representatives who currently or will assist patient after discharge: Delfina Li daughter [phone] Kayden Li daughter [phone] * Verbal permission to speak to the caregivers and representatives has been obtained from the patient. Yes * Community resources currently utilized Home Health * Please name any agencies selected above. [facility] * Additional services required to return to the preadmission environment? No * Can the patient safely return to the preadmission environment? Yes * Has this patient been hospitalized within the prior 30 days at any hospital? Yes Coverage Notice Reviewer: [id number] Bayron Phelps Notice Issued Date-Time: 07/31/2018 14:45 Notice Type: IM Discharge Notice Notice Delivered To: Patient Relationship to Patient: Water Well Driller Name: Delivery Method: HAND - Hand Delivered Adrianne Days: Prior Verbal Notification: Recipient Understood Notice: Yes Recipient Signature: Yes Med Rec Note Co-signed by Attending: Coverage Notice Comment: Reviewer: [id number] Bayron Phelps Notice Issued Date-Time: 08/05/2018 9:00 Notice Type: IM Discharge Notice Notice Delivered To: Patient Relationship to Patient: Water Well Driller Name: Delivery Method: HAND - Hand Delivered Adrianne Days: Prior Verbal Notification: Recipient Understood Notice: Yes Recipient Signature: Yes Med Rec Note Co-signed by Attending: Coverage Notice Comment: Last DP export: 08/05/18 10:39 a Patient Name: DOUGLAS HILLS Page [id number] at 1702 All edits/amendments must be made on the electronic document DICTATION DATE: 08/05/181700 SCAN COORDINATOR: CLEMENT 08/05/181700 RPT#: [id number] DC DATE:08/05/18 STATUS: DIS IN [facility] [address] [place] [address] END OF REPORT
== END 2018-08-05 16:29 | disposition home health service (06) | DRG 189 ==
LOC: D.ER 19:24 → D.EDHOLD 07-26 01:16 → D.M2 07-26 01:16
PROVIDERS: Emergency Medicine; Family Medicine; ADMIT Internal Medicine Nephrology
DX: J96.21 Acute and chronic respiratory failure with hypoxia (principal); J44.1 Chronic obstructive pulmonary disease with (acute) exacerbation; I50.32 Chronic diastolic (congestive) heart failure; Z68.44 Body mass index [BMI] 60.0-69.9, adult; N17.9 Acute kidney failure, unspecified; R78.81 Bacteremia; J96.22 Acute and chronic respiratory failure with hypercapnia; I11.0 Hypertensive heart disease with heart failure; E03.9 Hypothyroidism, unspecified; E66.01 Morbid (severe) obesity due to excess calories; K75.81 Nonalcoholic steatohepatitis (NASH); K74.60 Unspecified cirrhosis of liver; G47.33 Obstructive sleep apnea (adult) (pediatric); E11.9 Type 2 diabetes mellitus without complications; D50.9 Iron deficiency anemia, unspecified; E87.6 Hypokalemia; B95.62 Methicillin resistant Staphylococcus aureus infection as the cause of diseases classified elsewhere; L30.8 Other specified dermatitis; L27.0 Generalized skin eruption due to drugs and medicaments taken internally; T50.995A Adverse effect of other drugs, medicaments and biological substances, initial encounter; Y92.239 Unspecified place in hospital as the place of occurrence of the external cause

== ENCOUNTER 2018-08-16 18:57 | Inpatient (IN) | payer MEDICARE, MEDICAID ==
[~2018-08-16] VITALS: Ht 152.4 cm; Wt 152.9 kg
--- NOTE | ~2018-08-16 | CN ---
PATIENT NAME:DOUGLAS HILLS MEDICAL RECORD: [id number] : [birth year] LOCATION:D.MS [address]2231 ADMIT DATE: 08/16/18 ACCOUNT: [id number] CONSULTING PHYSICIAN: ALIZE LAMB MD REFERRING PHYSICIAN: JEAN CLAUDE PEDRAZA DO DATE OF CONSULTATION: 08/17/2018 CONSULT REQUESTING PHYSICIAN: Jean Claude Pedraza DO REASON FOR CONSULTATION: Acute hypoxic hypercapnic respiratory failure. HISTORY OF PRESENT ILLNESS: Ms. Hills is a 53-year-old female, well known to our service. According to the patient, she was on BiPAP and her oxygen was disconnected and she does not know about it. She developed shortness of breath. Coughing. There were no fevers or chills. No night sweats. No yellow color sputum production. The patient was brought into the ER with dyspnea. Workup showed that her CO2 was about 80 and the pH was low, the pH was 7.35. REVIEW OF SYSTEMS: As in history of present illness. PAST MEDICAL HISTORY: 1. Chronic hypoxic respiratory failure. 2. Recurrent hypoxic hypercapnic respiratory failure, multiple intubations and mechanical ventilation in the past. 3. Chronic obstructive pulmonary disease. 4. Obesity hypoventilation syndrome. 5. Obstructive sleep apnea. 6. Morbid obesity. 7. Congestive heart failure with chronic diastolic dysfunction. 8. Allergic rhinitis. 9. Diabetes mellitus. PAST SURGICAL HISTORY: 1. Hysterectomy. 2. Cholecystectomy. 3. Two C-sections in the past. ALLERGIES: SHE IS ALLERGIC TO TORADOL, LYRICA, LEXAPRO AND POSSIBLE VANCOMYCIN. MEDICATIONS: Zirtual is reviewed. PERSONAL AND SOCIAL HISTORY: The patient is an ex-smoker. She is a nondrinker. FAMILY HISTORY: Noncontributory. PHYSICAL EXAMINATION: GENERAL: Now, the patient is on BiPAP. She is lying comfortably. She is not in acute distress. VITAL SIGNS: The blood pressure is 124/63, pulse is 94, respiration 16, temperature 98.8, SPO2 is 98% on BiPAP 40% oxygen. HEENT: Conjunctivae are pink. Sclerae are not icteric. NECK: Supple, no JVD. CHEST: There are bibasilar crackles. Wheeze on forceful expiration. HEART: Rhythm regular, normal sound, no murmur. CONSULT REPORT [id number] DOUGLAS HILLS ABDOMEN: Soft, bowel sounds present. No hepatosplenomegaly. RECTAL: Deferred. EXTREMITIES: No cyanosis, no clubbing. There is 1+ pedal edema. CENTRAL NERVOUS SYSTEM: The patient is awake and alert. There are no obvious cranial nerve abnormality. The gait was not tested. IMAGING: Chest radiograph, there is moderate cardiomegaly. There are increased interstitial marking. No consolidation. LABORATORY DATA: ABG: The pH was 7.33, pCO2 was 93.6, the pO2 was 61, a bicarbonate of 50.2. IMPRESSION: 1. Vphwm-lv-xxbetwp hypoxic hypercapnic respiratory failure. 2. Respiratory acidosis. 3. Obesity hypoventilation syndrome. 4. Acute exacerbation of chronic obstructive pulmonary disease. 5. Tracheobronchitis. 6. Congestive heart failure with possible pulmonary edema. 7. Obstructive sleep apnea. RECOMMENDATION: 1. Continue the BiPAP at night and during the day and nasal cannula oxygen when the patient is sleeping. 2. Albuterol/ipratropium nebulizer. 3. Brovana/budesonide nebulizer. 4. Continue Diamox. 5. Lasix. 6. Continue empiric Levaquin. 7. I will hold on IV corticosteroid as the patient has no significant wheezing. Follow up labs and chest radiograph. Dr. Pedraza, thank you for involving me in the care of Ms. Hills. TRANSINT:[id number] Voice Confirmation ID: [id number] DOCUMENT ID: [id number] ALIZE LAMB MD CC: [id number] DICTATION DATE: 08/17/18 1314 ELEMENTARY EDUCATOR: 08/17/18 1554 ADM IN [place] [id number] [place] [address]
[~2018-08-16 18:57] MED LIST changes: +DIFLUCAN100 MG PO; +GLYBURIDE5 M1 PO
--- NOTE | 2018-08-16 19:32 | NUR ---
PT HAS DIMISHED BREATH SOUNDS AND EXPIRATORY WHEEZES.
[2018-08-16 19:35] LABS: BASOPHILS 0.1 % (0-2); HEMATOCRIT 30.7 % (36.0-48.0); HEMOGLOBIN 8.9 g/dL (12-16); IMMATURE GRANULOCYTES 0.4 % (0-5); LYMPHOCYTES 15.5 % (15-50); MCH 24.7 pg (26.0-34.0); MCV 85.3 fL (80.0-100.0); MEAN PLATELET VOLUME 8.6 fL (7.4-10.4); MONOCYTES 5.8 % (2-11); NEUTROPHILS 74.2 % (40-80); RDW 16.9 % (11.5-14.5); WBC 11.2 10x3/uL (4.8-10.8)
[2018-08-16 19:36] LABS: PLATELET COUNT 246 10x3/uL (130-400)
[2018-08-16 19:44] LABS: APTT 29.8 SECONDS (22.8-39.4); INR 1.04 (0.85-1.17); PROTIME 13.1 SECONDS (11.6-15.0)
--- NOTE | 2018-08-16 19:54 | NUR ---
PT PLACED ON A BIPAP, SEEMS TO BE DOING MUCH BETTER.
[2018-08-16 19:55] VITALS: BP 107/53
[2018-08-16 20:12] LABS: ALBUMIN 2.7 g/dL (3.4-5.0); ALKALINE PHOSPHATASE 74 U/L (46-116); ALT (SGPT) 14 U/L (10-68); BILIRUBIN - TOTAL 0.44 mg/dL (0.2-1.3); CALC OSMOLALITY 282 mosm/kg (275-300); CALCIUM 8.2 mg/dL (8.5-10.1); CHLORIDE - SERUM 93 mmol/L (98-107); CREATININE - SERUM 0.7 mg/dL (0.6-1.3); GLUCOSE 176 mg/dL (74-106); POTASSIUM - SERUM 3.3 mmol/L (3.5-5.1); PROTEIN - SERUM 6.3 g/dL (6.4-8.2); SODIUM 140 mmol/L (136-145); UREA NITROGEN 12 mg/dL (7-18); eGFR NON AFRICAN AMERICAN > 90 mL/min (90-120)
[2018-08-16 20:15] LABS: CARBON DIOXIDE 48.1 mmol/L (21.0-32.0)
[2018-08-16 20:21] LABS: CKMB 0.1 U/L (0.0-3.6); CREATINE KINASE 15 UL (21-215)
[2018-08-16 20:22] LABS: TROPONIN-I < 0.017 ng/mL (0.000-0.060)
[2018-08-16 20:28] LABS: APPEARANCE CLEAR (CLEAR); BILIRUBIN NEGATIVE (NEGATIVE); COLOR AMBER (YELLOW); GLUCOSE NEGATIVE (NEGATIVE); KETONE NEGATIVE (NEGATIVE); NITRITE NEGATIVE (NEGATIVE); PROTEIN NEGATIVE (NEGATIVE); UROBILINOGEN NORMAL (NORMAL)
[2018-08-16 20:29] VITALS: BP 98/47
--- NOTE | 2018-08-16 21:00 | NUR ---
PT RESTING QUIETLY AT THIS TIME, STATES SHE IS FEELING MUCH BETTER.
[2018-08-16 21:03] VITALS: BP 91/37
--- NOTE | 2018-08-16 21:30 | NUR ---
RESTING QUIETLY AT THIS TIME, CALL LIGHT WITHIN REACH, IS WITHOUT DISTRESS AT THIS TIME.
[2018-08-16 22:00] VITALS: BP 93/51
[2018-08-16 23:03] VITALS: BP 103/62
[2018-08-16 23:30] VITALS: BP 107/51
--- NOTE | 2018-08-16 23:30 | NUR ---
Received patient from ER via bed to 2308, connected to monitor and admission assessment completed. Patient arrived on 3L via NC with O2 sat 94%, lung sounds clear bilateral upper and mid with diminished lower. NSR on telemetry with all pulses palpable, cap refill < 3 sec. Denies pain or other needs at this time, see flowsheet for details. All VSS and will continue to monitor.
[2018-08-17] VITALS (12 sets, daily range): BP systolic 98–135; BP diastolic 41–74; Ht 152.4 cm; Wt 152.9 kg
--- NOTE | 2018-08-17 01:00 | NUR ---
Patient sleeping in bed on BiPAP 40%, no s/s of distress noted. Patient awakens easily, answers appropriately. Denies pain or other needs at this time, all VSS and will continue to monitor.
--- NOTE | 2018-08-17 02:50 | NUR ---
Reassessment completed per flowsheet, no changes from previous assessment. S1/S2 noted NSR on telemetry, rythmic and regular. Breathing is even/unlabored on BiPAP 40% with O2 sat 97%, lung sounds clear bilateral upper and mid with diminished lower. All pulses palpable with cap refill < 3 sec, skin warm/dry. Denies pain or other needs at this time, see flowsheet for details.
--- NOTE | 2018-08-17 05:00 | NUR ---
Patient sleeping in bed with eyes closed on BiPAP 40%, no s/s of distress at this time. All VSS and will continue to monitor.
[2018-08-17 06:54] LABS: BASOPHILS 0.1 % (0-2); EOSINOPHILS 4.6 % (0-7); HEMATOCRIT 28.3 % (36.0-48.0); HEMOGLOBIN 8.1 g/dL (12-16); IMMATURE GRANULOCYTES 0.2 % (0-5); MCH 24.5 pg (26.0-34.0); MCHC 28.6 g/dL (31.0-37.0); MCV 85.5 fL (80.0-100.0); MEAN PLATELET VOLUME 8.6 fL (7.4-10.4); MONOCYTES 8.9 % (2-11); NEUTROPHILS 72.2 % (40-80); PLATELET COUNT 238 10x3/uL (130-400); RBC 3.31 10x6/uL (4.00-5.40); RDW 16.9 % (11.5-14.5)
[2018-08-17 07:00] LABS: WBC 8.3 10x3/uL (4.8-10.8)
[2018-08-17 07:04] LABS: CALC OSMOLALITY 279 mosm/kg (275-300); CALCIUM 8.4 mg/dL (8.5-10.1); CHLORIDE - SERUM 92 mmol/L (98-107); CREATININE - SERUM 0.6 mg/dL (0.6-1.3); GLUCOSE 146 mg/dL (74-106); POTASSIUM - SERUM 3.1 mmol/L (3.5-5.1); SODIUM 139 mmol/L (136-145); UREA NITROGEN 10 mg/dL (7-18); eGFR NON AFRICAN AMERICAN > 90 mL/min (90-120)
[2018-08-17 07:06] LABS: CARBON DIOXIDE 47.5 mmol/L (21.0-32.0)
--- NOTE | 2018-08-17 08:23 | NUR ---
UP IN BED ON BIPAP RESTING WTIH EYES CLOSED AT THIS TIME. NO ACUTE DISTRESS NOTED. AWAKENS EASILY WHEN SPOKEN TO. WILL CONTINUE PLAN OF CARE.
--- NOTE | 2018-08-17 10:23 | NUR ---
UP IN BED AWAKE AT THIS TIME. NO ACUTE DISTRESS NOTED. PT ALERT AND ORIENTED. CALL LIGHT IN REACH. PT REPOSITIONS SELF FREQUENTLY IN BED. WILL CONTINUE PLAN OF CARE.
--- NOTE | 2018-08-17 11:11 | HP ---
PATIENT: DOUGLAS HILLS MEDICAL RECORD: [id number] ACCOUNT: [id number] LOCATION:[facility] D.2308 : 63 ADMISSION DATE: 08/16/18 PCP: JEAN CLAUDE PEDRAZA DO HISTORY AND PHYSICAL EXAMINATION HISTORY OF PRESENT ILLNESS: Ms. Hills is a 53-year-old white female with severe end-stage COPD with numerous hospital admissions that just left the hospital less than a week ago who returns complaining of increasing shortness of breath. She has not been feeling well for the last several days. She is obese. She has had multiple hospitalizations for the same problem. She has been running fever. LABORATORY DATA: Her white count is 11.2, H&H is 8.9 and 30.7 with a platelet count of 246, potassium is 3.3, BUN 12, creatinine 0.7, glucose is 176, INR is 1.04. Blood gases show pH of 7.35, pCO2 of 85, pO2 of 61. Her chest x-ray reveals moderate cardiomegaly with poor inspiration. No acute airspace disease is noted at this time. She is going to be admitted to the ICU for pygnw-ht-nikmcmq respiratory failure. PAST MEDICAL HISTORY: Significant for COPD with multiple hospitalizations in the past, hypertension, obesity, chronic anxiety, chronic back pain, arthritis, hypothyroidism, GERD, and type 2 diabetes. ALLERGIES: LYRICA, TRAMADOL, VANCOMYCIN, MYCIN and GABAPENTIN. HOME MEDICATIONS: DuoNeb updrafts, fluticasone nasal spray, potassium 40 mEq t.i.d., levothyroxine 50 mcg a day, Brovana updrafts, furosemide 40 mg b.i.d., pantoprazole 40 mg b.i.d., Pulmicort updrafts b.i.d., Diamox 250 b.i.d., glyburide 5 mg t.i.d. and fluconazole tablets for recent yeast infection. FAMILY HISTORY: Noncontributory. SOCIAL HISTORY: The patient does not smoke or drink. REVIEW OF SYSTEMS: She complains of increasing shortness of breath. She has had some fever at home. She has had wheezing and cough. She denies any chest pain. She has had increased swelling. She complains of some abdominal pain with nausea. PHYSICAL EXAMINATION: GENERAL: She is in mild to moderate distress. She is on BiPAP at this time. HEENT: Regular and slightly tachycardic. LUNGS: With bilateral wheezes. ABDOMEN: Soft. EXTREMITIES: Lower extremities reveal edema. IMPRESSION: 1. Chronic obstructive pulmonary disease exacerbation. 2. Ynsln-rf-gnlmtwg respiratory failure. 3. Diabetes. 4. Obesity. 5. Chronic pain. PLAN: Admit to ICU. See orders for rest of the plan. HISTORY AND PHYSICAL [id number] DOUGLAS HILLS TRANSINT:[id number] Voice Confirmation ID: [id number] DOCUMENT ID: [id number] JEAN CLAUDE PEDRAZA DO at 1111 CC: [id number] DICTATION DATE: 08/16/182209 IMPLEMENTATION COORDINATOR: 08/16/182256 ADM IN [place] [address] [place] [address]
--- NOTE | 2018-08-17 11:56 | NUR ---
SPOKE WITH PRIMARY PHYSICIAN REGARDING LOW POTASSIUM AND THAT PT RECIEVES POTASSIUM ORALLY TID ALREADY. HE STATED HE WILL PLACE ORDERS. WILL CONTINUE PLAN OF CARE.
--- NOTE | 2018-08-17 11:57 | NUR ---
PER LUCERNE FARMER AND PRIMARY PHYSICIAN, OKAY TO TRASTACEYER PT TO FLOOR.
--- NOTE | 2018-08-17 13:25 | NUR ---
REPORT CALLED TO RECIEVEING NURSE. WILL TRANSFER PT SHORTLY.
--- NOTE | 2018-08-17 13:29 | NUR ---
LINEN CHANGE PROVIDED AT THIS TIME. ALSO PT CLEANED SELF UP USING WIPES, STATED SINCE SHE HAD A BATH YESTERDAY AND DOESNT NEED ANOTHER TODAY.
--- NOTE | 2018-08-17 14:00 | NUR ---
TRANSFERRED TO ROOM 2231 PER PHYSICIAN ORDERS. TRANSFERRED VIA BED WITH ALL PERSONAL ITEMS. NO ACUTE DISTRESS NOTED. NO FURTHER ACTIONS.
--- NOTE | 2018-08-17 19:15 | NUR ---
RECEIVED REPORT, ASSUMED CARE, A&O, DENIES NEEDS, CALL LIGHT IN REACH, BED LOWEST POSITION, IV TO R SHOULDER INFILTRATED, ATTEMPTING TO RESITE, HESS TO GRAVITY, WILL CONTINUE POC
[2018-08-18] VITALS: BP 118/56
--- NOTE | 2018-08-18 00:07 | NUR ---
Patient sleeping with Bi pap in place no s/s of distress. Call light in reach no s/s of distress. Will contiue with plain of care.
[2018-08-18 03:00] VITALS: BP 131/80
[2018-08-18 06:40] LABS: CALC OSMOLALITY 280 mosm/kg (275-300); CALCIUM 9.6 mg/dL (8.5-10.1); CHLORIDE - SERUM 97 mmol/L (98-107); CREATININE - SERUM 0.7 mg/dL (0.6-1.3); GLUCOSE 152 mg/dL (74-106); SODIUM 140 mmol/L (136-145); UREA NITROGEN 10 mg/dL (7-18); eGFR NON AFRICAN AMERICAN > 90 mL/min (90-120)
[2018-08-18 06:43] LABS: POTASSIUM - SERUM 3.8 mmol/L (3.5-5.1)
[2018-08-18 06:47] LABS: BASOPHILS 0.1 % (0-2); EOSINOPHILS 7.4 % (0-7); HEMATOCRIT 29.9 % (36.0-48.0); HEMOGLOBIN 8.6 g/dL (12-16); IMMATURE GRANULOCYTES 0.2 % (0-5); LYMPHOCYTES 17.9 % (15-50); MCH 24.4 pg (26.0-34.0); MCHC 28.8 g/dL (31.0-37.0); MCV 84.9 fL (80.0-100.0); MEAN PLATELET VOLUME 8.5 fL (7.4-10.4); MONOCYTES 9.6 % (2-11); NEUTROPHILS 64.8 % (40-80); PLATELET COUNT 265 10x3/uL (130-400); RBC 3.52 10x6/uL (4.00-5.40); WBC 9.1 10x3/uL (4.8-10.8)
--- NOTE | 2018-08-18 08:34 | NUR ---
PT SITTING UP IN BED WATCHING TV AND EATING BREAKFAST. ROOM HAS FOUL ODOR FROM YEAST. SPOKE WITH PIPE WELDER ABOUT GETTING PT A BATH TODAY. 02@2NC. NO S/S OF ACUTE DISTRESS. CL IN PLACE.
[2018-08-18 08:48] VITALS: BP 113/50
--- NOTE | 2018-08-18 11:41 | NUR ---
COUPON CLERK ASSITED PT WITH BATH. APPLIED NYSTATIN TO FOLDS. NO S/S OF ACUTE DISTRESS. CL IN PLACE.
[2018-08-18 12:00] VITALS: BP 116/54
[2018-08-18 16:00] VITALS: BP 114/52
--- NOTE | 2018-08-18 17:19 | NUR ---
ASSISTED PT WITH EUCERIN LOTION TO HER BACK. NO S/S OF ACUTE DISTRESS. CL IN PLACE.
[2018-08-18 19:00] VITALS: BP 121/45
--- NOTE | 2018-08-18 19:01 | NUR ---
PT RESTING IN BED. NO S/S OF ACUTE DISTRESS. BROUGHT PT ICE FOR SODA. CL IN PLACE.
--- NOTE | 2018-08-18 19:20 | NUR ---
RECEIVED REPORT, ASSUMED CARE, NO S/S OF DISTRESS NOTED, CALL LIGHT IN REACH, BED LOWEST POSITION, SLEEPING WITH BIPAP ON, HESS TO GRAVITY, BANDAGE ON MIDLINE RE-DRESSED, WILL CONTINUE POC
--- NOTE | 2018-08-18 22:40 | NUR ---
PATIENT ASLEEP WITH BIPAP IN PLACE NO S/S OF DISTRESS WILL CONTIUE WITH PLAIN OF CARE. CALL LIGHT IN REACH.
[2018-08-19] VITALS: BP 119/51
[2018-08-19 03:00] VITALS: BP 121/63
[2018-08-19 06:26] LABS: BASOPHILS 0.1 % (0-2); EOSINOPHILS 8.1 % (0-7); HEMATOCRIT 30.7 % (36.0-48.0); HEMOGLOBIN 8.7 g/dL (12-16); IMMATURE GRANULOCYTES 0.3 % (0-5); LYMPHOCYTES 16.9 % (15-50); MCH 24.4 pg (26.0-34.0); MCHC 28.3 g/dL (31.0-37.0); MCV 86.2 fL (80.0-100.0); MEAN PLATELET VOLUME 8.5 fL (7.4-10.4); MONOCYTES 9.5 % (2-11); NEUTROPHILS 65.1 % (40-80); PLATELET COUNT 269 10x3/uL (130-400); RBC 3.56 10x6/uL (4.00-5.40); RDW 17.3 % (11.5-14.5); WBC 9.1 10x3/uL (4.8-10.8)
[2018-08-19 06:55] LABS: ALBUMIN 2.7 g/dL (3.4-5.0); ALKALINE PHOSPHATASE 72 U/L (46-116); ALT (SGPT) 10 U/L (10-68); BILIRUBIN - TOTAL 0.28 mg/dL (0.2-1.3); CALCIUM 9.3 mg/dL (8.5-10.1); CHLORIDE - SERUM 99 mmol/L (98-107); CREATININE - SERUM 0.8 mg/dL (0.6-1.3); GLUCOSE 143 mg/dL (74-106); PROTEIN - SERUM 7.1 g/dL (6.4-8.2); SODIUM 141 mmol/L (136-145); eGFR NON AFRICAN AMERICAN 79 mL/min (90-120)
[2018-08-19 07:06] LABS: CALC OSMOLALITY 283 mosm/kg (275-300); POTASSIUM - SERUM 4.6 mmol/L (3.5-5.1); UREA NITROGEN 15 mg/dL (7-18)
[2018-08-19 09:00] VITALS: BP 117/60
--- NOTE | 2018-08-19 11:29 | MORECARE ---
CASE MANAGEMENT DISCHARGE SUMMARY PATIENT: DOUGLAS HILLS UNIT: [id number] ADM DATE: 08/16/18 AGE: 53 : 63 SEX: F ROOM/BED: D.2231 AUTHOR: AMELIA MCGOVERN PHYSICIAN: REFERRING PHYSICIAN: JEAN CLAUDE PEDRAZA DO DATE OF SERVICE: 08/19/18 Discharge Plan Patient Name: DOUGLAS HILLS Facility: [facility]:[place] : 1965 Planned Disposition: Home with Home Health Anticipated Discharge Date: 08/19/18 Discharge Date: Expected LOS: 3 Initial Reviewer: [email or web address] Initial Review Date: 08/19/2018 Generated: 08/19/18 12:29 pm Patient Name: DOUGLAS HILLS Page [phone] at 1129 All edits/amendments must be made on the electronic document DICTATION DATE: 08/19/18 1128 MANAGER DRILLING: CLEMENT 08/19/18 1128 RPT#: [id number] DC DATE: STATUS: ADM IN [facility] [address] [place] [address] END OF REPORT
--- NOTE | 2018-08-19 11:36 | MORECARE ---
CASE MANAGEMENT DISCHARGE SUMMARY PATIENT: DOUGLAS HILLS UNIT: [id number] ADM DATE: 08/16/18 AGE: 53 : 63 SEX: F ROOM/BED: D.2231 AUTHOR: FROILAN,DOC PHYSICIAN: REFERRING PHYSICIAN: JEAN CLAUDE PEDRAZA DO DATE OF SERVICE: 08/19/18 Discharge Plan Patient Name: DOUGLAS HILLS Facility: [facility]:[place] : 1965 Planned Disposition: Home with Home Health Anticipated Discharge Date: 08/19/18 Discharge Date: Expected LOS: 3 Initial Reviewer: [email or web address] Initial Review Date: 08/19/2018 Generated: 08/19/18 12:36 pm Comments DCP- Discharge Planning Updated by [email or web address]: Thelma Yusuf on 08/19/18 10:[address] Patient Name: DOUGLAS HILLS Admission Status: ER Accout number: [id number] Admission Date: 08-16-2018 : 1965 Admission Diagnosis: Attending: JEAN CLAUDE PEDRAZA Current LOS: 3 Anticipated DC Date: 08-19-2018 Planned Disposition: Home with Home Health Primary Insurance: [facility] MEDICARE SOLUTIONS Discharge Planning Comments: CM met with patient to discuss discharge planning, she is alone in the room. States she has moved to [address] [place] [address] and is still living with her daughter (Delfina). There is also a 13,12, 11,10 year old in the home. States it is a safe environment. [facility] Ludy helps her with personal care. States she has [facility] that come twice a week for nursing and medication management. Denies need for further DME. Plan is to return home with the resumption of [facility]. CM will continue to follow and assist with discharge planning/needs. Physical Science Professor: Thelma Yusuf DCPIA - Discharge Planning Initial Assessment Updated by [email or web address]: Thelma Yusuf on 08/19/18 11:29 am * Is the patient Alert and Oriented? Yes * How many steps to enter\exit or inside your home? 2/0 * PCP Dr. Pedraza * Pharmacy [facility] on [facility] * Preadmission Environment Home with Family * ADLs Partial Dependent * Partial ADLs (Assistance needed) Ambulation Bathing Dressing Medication Management * Equipment Cane Nebulizer Other Oxygen Rolling Walker * Other Equipment [employer] * List name and contact numbers for known caregivers / representatives who currently or will assist patient after discharge: Delfina Li - DTR - [phone] Kayden Li DIL - [phone] * Verbal permission to speak to the caregivers and representatives has been obtained from the patient. Yes * Community resources currently utilized Home Health * Please name any agencies selected above[facility] in for [employer] * Additional services required to return to the preadmission environment? No * Can the patient safely return to the preadmission environment? Yes * Has this patient been hospitalized within the prior 30 days at any hospital? Yes Last DP export: 08/19/18 10:29 a Patient Name: DOUGLAS HILLS Page 77532 at 1136 All edits/amendments must be made on the electronic document DICTATION DATE: 08/19/18 113 BACK TENDER CLOTH PRINTING: CLEMENT 08/19/18 1136 RPT#: [id number] DC DATE: STATUS: ADM IN [facility] [address] [place] [address] END OF REPORT
--- NOTE | 2018-08-19 12:27 | NUR ---
NUTRITION F/U TINY REVIEWED, PT VISIT. TOLERATING DIABETIC DIET WITH 100% INTAKE RECENT MEALS. WILL CONTINUE TO PROVIDE DIET, MONITOR PO INTAKE. RD FOLLOWING
[2018-08-19 13:34] VITALS: BP 106/57
[2018-08-19 16:00] VITALS: BP 108/59
[2018-08-19] MEDS ORDERED: DIFLUCAN100 MG PO (16:28)
[2018-08-19] MEDS ORDERED: ALDACTONE25 MG PO (16:28)
[2018-08-19] MEDS ORDERED: LEVAQUIN750 MG PO (16:39)
--- NOTE | 2018-08-19 16:54 | MORECARE ---
CASE MANAGEMENT DISCHARGE SUMMARY PATIENT: DOUGLAS HILLS UNIT: [id number] ADM DATE: 08/16/18 AGE: 53 : 63 SEX: F ROOM/BED: D.2231 AUTHOR: AMELIA MCGOVERN PHYSICIAN: REFERRING PHYSICIAN: JEAN CLAUDE PEDRAZA DO DATE OF SERVICE: 08/19/18 Discharge Plan Patient Name: DOUGLAS HILLS Facility: [facility]:[place] : 1965 Planned Disposition: Home with Home Health Anticipated Discharge Date: 08/19/18 Discharge Date: Expected LOS: 3 Initial Reviewer: [email or web address] Initial Review Date: 08/19/2018 Generated: 08/19/18 5:54 pm Comments DCP- Discharge Planning Updated by [email or web address]: Thelma Yusuf on 08/19/18 3:[address] Patient Name: DOUGLAS HILLS Encounter No: [id number] : 1965 Primary Insurance: C MEDICARE SOLUTIONS Anticipated DC Date: 08-19-2018 Planned Disposition: Home with Home Health External Planned Provider: : DCP follow-up note: Patient in agreement with discharge plan. Called and spoke to Angle at [facility] to resume home health. No changes to plan. Case management will follow and assist as needed. Thelma Yusuf DCP- Discharge Planning Updated by [email or web address]: Thelma Yusuf on 08/19/18 10:[address] Patient Name: DOUGLAS HILLS Admission Status: ER Accout number: [id number] Admission Date: 08-16-2018 : 1965 Admission Diagnosis: Attending: JEAN CLAUDE PEDRAZA Current LOS: 3 Anticipated DC Date: 08-19-2018 Planned Disposition: Home with Home Health Primary Insurance: [facility] MEDICARE SOLUTIONS Discharge Planning Comments: CM met with patient to discuss discharge planning, she is alone in the room. States she has moved to [address] [place] [address] and is still living with her daughter (Delfina). There is also a 13,12, 11,10 year old in the home. States it is a safe environment. [facility] Ludy helps her with personal care. States she has [facility] that come twice a week for nursing and medication management. Denies need for further DME. Plan is to return home with the resumption of [facility]. CM will continue to follow and assist with discharge planning/needs. Rubber Splicer: Thelma Yusuf DCPIA - Discharge Planning Initial Assessment Updated by [email or web address]: Thelma Yusuf on 08/19/18 11:29 am * Is the patient Alert and Oriented? Yes * How many steps to enter\exit or inside your home? 2/0 * PCP Dr. Pedraza * Pharmacy [facility] on [address] * Preadmission Environment Home with Family * ADLs Partial Dependent * Partial ADLs (Assistance needed) Ambulation Bathing Dressing Medication Management * Equipment Cane Nebulizer Other Oxygen Rolling Walker * Other Equipment [employer] * List name and contact numbers for known caregivers / representatives who currently or will assist patient after discharge: [facility] - [phone] Kayden Li [facility] - [phone] * Verbal permission to speak to the caregivers and representatives has been obtained from the patient. Yes * Community resources currently utilized Home Health * Please name any agencies selected above. [facility] for oxygen and nebulizer supplies [facility] in for [employer] * Additional services required to return to the preadmission environment? No * Can the patient safely return to the preadmission environment? Yes * Has this patient been hospitalized within the prior 30 days at any hospital? Yes External Providers External Provider: [facility] Next Contact Date: Service Request Date: Service Type: Resolution: Reviewer: Comments: Coverage Notice Reviewer: [email or web address] - Thelma Yusuf Notice Issued Date-Time: 08/19/2018 16:53 Notice Type: IM Discharge Notice Notice Delivered To: Patient Relationship to Patient: Self Quill Machine Tender Name: Delivery Method: HAND - Hand Delivered Adrianne Days: Prior Verbal Notification: Recipient Understood Notice: Yes Recipient Signature: Yes Med Rec Note Co-signed by Attending: Coverage Notice Comment: IMM explained, signed, copy given, original placed in MR Last DP export: 08/19/18 10:36 a Patient Name: DOUGLAS HILLS Page 79974 at 1654 All edits/amendments must be made on the electronic document DICTATION DATE: 08/19/181653 STORYBOARD ARTIST: CLEMENT 08/19/181653 RPT#: [id number] DC DATE: STATUS: ADM IN [facility] [address] [place] [address] END OF REPORT
--- NOTE | 2018-08-19 19:20 | NUR ---
REC'D, IN BED EYES CLOSED BIPAP NO VISUAL SIGNS OF ANY RESP. DIFFICULTY,HOB UP 40 DEGREES, WILL CONTINUE TO MONITOR FOR ANY CHGES, AND FOLLOW CURRENT PLAN OF CARE.
--- NOTE | 2018-08-19 22:30 | NUR ---
RESTING IN BED RESP UNLABORED NO APPARENT DISTRESS AWAITING RIDE HOME
--- NOTE | 2018-08-21 07:14 | MORECARE ---
CASE MANAGEMENT DISCHARGE SUMMARY PATIENT: DOUGLAS HILLS UNIT: [id number] ADM DATE: 08/16/18 AGE: 53 : 63 SEX: F ROOM/BED: D.2231 AUTHOR: AMELIA MCGOVERN PHYSICIAN: REFERRING PHYSICIAN: JEAN CLAUDE PEDRAZA DO DATE OF SERVICE: 08/21/18 Discharge Plan Patient Name: DOUGLAS HILLS Facility: [facility]:[place] : 1965 Planned Disposition: Home with Home Health Anticipated Discharge Date: 08/19/18 Discharge Date: 08/19/2018 Expected LOS: 3 Initial Reviewer: [email or web address] Initial Review Date: 08/19/2018 Generated: 08/21/18 8:13 am Comments DCP- Discharge Planning Updated by [email or web address]: Thelma Yusuf on 08/19/18 3:[address] Patient Name: DOUGLAS HILLS Encounter No: [id number] : 1965 Primary Insurance: C MEDICARE SOLUTIONS Anticipated DC Date: 08-19-2018 Planned Disposition: Home with Home Health External Planned Provider: : DCP follow-up note: Patient in agreement with discharge plan. Called and spoke to Angle at [facility] to resume home health. No changes to plan. Case management will follow and assist as needed. Thelma Madelin DCP- Discharge Planning Updated by [email or web address]: Thelma Taniasantiago on 08/19/18 10:[address] Patient Name: DOUGLAS HILLS Admission Status: ER Accout number: [id number] Admission Date: 08-16-2018 : 1965 Admission Diagnosis: Attending: JEAN CLAUDE PEDRAZA Current LOS: 3 Anticipated DC Date: 08-19-2018 Planned Disposition: Home with Home Health Primary Insurance: [facility] MEDICARE SOLUTIONS Discharge Planning Comments: CM met with patient to discuss discharge planning, she is alone in the room. [facility] she has moved to [address] [place] [address] and is still living with her daughter (Delfina). There is also a 13,12, 11,10 year old in the home. States it is a safe environment. [facility] Ludy helps her with personal care. [facility] she has [facility] that come twice a week for nursing and medication management. Denies need for further DME. Plan is to return home with the resumption of [facility]. CM will continue to follow and assist with discharge planning/needs. Disability Case Manager: Thelma Yusuf DCPIA - Discharge Planning Initial Assessment Updated by [email or web address]: Thelma Yusuf on 08/19/18 11:29 am * Is the patient Alert and Oriented? Yes * How many steps to enter\exit or inside your home? 2/0 * PCP Dr. Pedraza * [facility] [address] * Preadmission Environment Home with Family * ADLs Partial Dependent * Partial ADLs (Assistance needed) Ambulation Bathing Dressing Medication Management * Equipment Cane Nebulizer Other Oxygen Rolling Walker * Other Equipment [employer] * List name and contact numbers for known caregivers / representatives who currently or will assist patient after discharge: Delfina Li DTR - [phone] Kayden Li DIL - [phone] * Verbal permission to speak to the caregivers and representatives has been obtained from the patient. Yes * Community resources currently utilized Home Health * Please name any agencies selected above. [facility] for oxygen and nebulizer supplies [facility] in for [employer] * Additional services required to return to the preadmission environment? No * Can the patient safely return to the preadmission environment? Yes * Has this patient been hospitalized within the prior 30 days at any hospital? Yes Coverage Notice Reviewer: [id number] - Thelma Yusuf Notice Issued Date-Time: 08/19/2018 16:53 Notice Type: IM Discharge Notice Notice Delivered To: Patient Relationship to Patient: Self [facility] Manager Name: Delivery Method: HAND - Hand Delivered Adrianne Days: Prior Verbal Notification: Recipient Understood Notice: Yes Recipient Signature: Yes Med Rec Note Co-signed by Attending: Coverage Notice Comment: IMM explained, signed, copy given, original placed in MR Last DP export: 08/19/18 3:54 p Patient Name: DOUGLAS HILLS Page [phone] at 0714 All edits/amendments must be made on the electronic document DICTATION DATE: 08/21/18712 TWISTER IN: CLEMENT 08/21/18712 RPT#: [id number] DC DATE:08/19/18 STATUS: DIS IN [facility] [address] [place] [address] END OF REPORT
== END 2018-08-19 23:41 | disposition home health service (06) | DRG 205 ==
LOC: D.ER 18:57 → D.MS 21:32 → D.ICU 21:32 → D.EDHOLD 21:32 → D.ICU 22:50 → D.MS 08-17 13:59
PROVIDERS: Family Medicine; ADMIT Family Medicine
PROC: 05HY33Z Insertion of Infusion Device into Upper Vein, Percutaneous Approach (ICD-10-PCS; principal; 2018-08-18)
DX: E66.2 Morbid (severe) obesity with alveolar hypoventilation (principal); J96.21 Acute and chronic respiratory failure with hypoxia; J44.1 Chronic obstructive pulmonary disease with (acute) exacerbation; I50.32 Chronic diastolic (congestive) heart failure; Z68.45 Body mass index [BMI] 70 or greater, adult; E11.9 Type 2 diabetes mellitus without complications; J44.9 Chronic obstructive pulmonary disease, unspecified

== ENCOUNTER 2018-08-31 11:57 | Inpatient (IN) | payer MEDICARE, MEDICAID ==
[2018-08-31] VITALS: BP 121/59
[~2018-08-31] VITALS: Ht 152.4 cm; Wt 136.1 kg
[~2018-08-31 11:57] MED LIST changes: +ALDACTONE25 MG PO
--- NOTE | 2018-08-31 12:25 | NUR ---
RECIEVED CARE OF PT, SAT 95% ON BIPAP, HR 103 AND REG, BP 128/74. ALERT, TOLERATING BIPAP WELL. SOLUMEDROL 125MG GIVEN.
[2018-08-31 12:40] LABS: HEMATOCRIT 32.8 % (36.0-48.0); HEMOGLOBIN 9.6 g/dL (12-16); MCH 24.3 pg (26.0-34.0); MCHC 29.3 g/dL (31.0-37.0); MEAN PLATELET VOLUME 8.2 fL (7.4-10.4); NEUTROPHILS 75.6 % (40-80); PLATELET COUNT 311 10x3/uL (130-400); RBC 3.95 10x6/uL (4.00-5.40); RDW 14.7 % (11.5-14.5); WBC 10.6 10x3/uL (4.8-10.8)
[2018-08-31 13:09] LABS: ALBUMIN 2.7 g/dL (3.4-5.0); ALKALINE PHOSPHATASE 73 U/L (46-116); ALT (SGPT) 7 U/L (10-68); BILIRUBIN - TOTAL 0.29 mg/dL (0.2-1.3); CALCIUM 8.7 mg/dL (8.5-10.1); CHLORIDE - SERUM 98 mmol/L (98-107); CKMB 0.5 U/L (0.0-3.6); CREATINE KINASE 19 UL (21-215); CREATININE - SERUM 0.6 mg/dL (0.6-1.3); POTASSIUM - SERUM 4.3 mmol/L (3.5-5.1); PRO BNP 177 pg/mL (0-125); SODIUM 137 mmol/L (136-145); UREA NITROGEN 12 mg/dL (7-18); eGFR NON AFRICAN AMERICAN > 90 mL/min (90-120)
[2018-08-31 13:10] LABS: CALC OSMOLALITY 279 mosm/kg (275-300); GLUCOSE 215 mg/dL (74-106)
[2018-08-31 13:11] LABS: CARBON DIOXIDE 40.2 mmol/L (21.0-32.0); TROPONIN-I < 0.017 ng/mL (0.000-0.060)
[2018-08-31 13:26] VITALS: BP 126/59
--- NOTE | 2018-08-31 16:00 | NUR ---
PT ARRIVED ON MED/SURG UNIT. PT IS ALERT AND ORIENTED, RESPIRATIONS ARE EVEN AND UNLABORED. NO S/S OF DISTRESS NOTED. PT IS ON A BIPAP SET AT 40% WITH AN O2 SAT OF 97%. PT IS AFEBRILE AND VITAL SIGNS ARE STABLE, T - 98.1, B/P - 119/43, P - 96, R - 22, O2 SAT - 97%. DENIES NEEDS AT THIS TIME. PT CURRENTLY RESTING COMFORTABLY IN BED. BED LOW AND LOCKED, SR UP X2, CL IN EASY REACH. WILL CONTINUE TO MONITOR.
[2018-08-31 16:50] VITALS: BP 119/43
[2018-08-31 17:30] VITALS: BP 119/43; BMI 58.7
--- NOTE | 2018-08-31 19:40 | NUR ---
LYING IN BED EATING A SANDWICH. ALERT AND ORIENTED X4. TALKATIVE WITH STAFF. SOB WITH MIN EXERTION. O2 @ 2L/NC. BBS DIMINISHED. REPORTS PROD COUGH WITH YELLOW SPUTUM. 1+ EDEMA NOTED TO BLE. SALINE LOCK NOTED TO LT BREAST. REDNESS NOTED TO BILAT AXILLA, UNDER BREASTS AND ABD FOLDS. DENIES PAIN. NO DISTRESS. SR ELEVATED X2. CL IN REACH.
[2018-08-31 20:00] VITALS: BP 120/53
[2018-09-01] VITALS: BP 130/51
--- NOTE | 2018-09-01 02:17 | NUR ---
TELEMETRY PLACED ON PT AND SHOWS ST WITH RATE OF 102. PT HAS RESTED WELL TONIGHT. BIPAP IN USE. CL IN REACH.
[2018-09-01 03:00] VITALS: BP 130/51
[2018-09-01 05:38] LABS: BASOPHILS 0.1 % (0-2); EOSINOPHILS 0 % (0-7); HEMATOCRIT 32.2 % (36.0-48.0); HEMOGLOBIN 9.4 g/dL (12-16); LYMPHOCYTES 8.5 % (15-50); MCH 24.2 pg (26.0-34.0); MCHC 29.2 g/dL (31.0-37.0); MCV 82.8 fL (80.0-100.0); MEAN PLATELET VOLUME 8.6 fL (7.4-10.4); MONOCYTES 1.2 % (2-11); NEUTROPHILS 89.2 % (40-80); PLATELET COUNT 289 10x3/uL (130-400); RBC 3.89 10x6/uL (4.00-5.40); RDW 15.4 % (11.5-14.5); WBC 11.3 10x3/uL (4.8-10.8)
[2018-09-01 06:33] LABS: CALC OSMOLALITY 289 mosm/kg (275-300); CALCIUM 8.7 mg/dL (8.5-10.1); CHLORIDE - SERUM 99 mmol/L (98-107); CREATININE - SERUM 0.7 mg/dL (0.6-1.3); GLUCOSE 241 mg/dL (74-106); MAGNESIUM - SERUM 1.5 mg/dL (1.8-2.4); POTASSIUM - SERUM 4.7 mmol/L (3.5-5.1); SODIUM 141 mmol/L (136-145); UREA NITROGEN 14 mg/dL (7-18); eGFR NON AFRICAN AMERICAN > 90 mL/min (90-120)
[2018-09-01 06:34] LABS: CARBON DIOXIDE 41.3 mmol/L (21.0-32.0)
--- NOTE | 2018-09-01 08:08 | NUR ---
PT LAYING IN BED THIS AM, ALERT AND ORIENTED. PT IN HIGH SPIRITS, BIPAP OFF AT THIS TIME FOR BREAKFAST. O2 @ 2L VIA NC, SOB NOTED. LUNG SOUNDS DIMINISHED. RESPIRATIONS EVEN AND UNLABORED, NO S/S OF DISTRESS NOTED. ROUTINE MEDS GIVEN PER EMAR. IV INFUSING TO LEFT BREAST. DENIES NEEDS AT THIS TIME. BED LOW AND LOCKED, SR UP X2, CL IN EASY REACH.
[2018-09-01 08:24] VITALS: BP 145/49
[2018-09-01 12:30] VITALS: BP 139/62
--- NOTE | 2018-09-01 15:29 | NUR ---
CALLED INTO THE ROOM BY PT, PT HAD YANKED OUT IV ACCIDENTALLY. TIP INTACT. BLOOD ALL OVER GOWN AND LINENS. LINENS CHANGED, IV TO BE RESITED. BED LOW AND LOCKED, SR UP X2, CL IN EASY REACH.
[2018-09-01 16:30] VITALS: BP 144/56
--- NOTE | 2018-09-01 17:32 | NUR ---
PT SITTING UP IN BED EATING DINNER AT THIS TIME. UNABLE TO START IV, WILL NEED TO CONSULT VASCULAR ACCESS IN THE MORNING PERHAPS. PT HAS REQUESTED A FEMALE TO PLACE HER HESS CATHETER. DENIES NEEDS, CL IN EASY REACH.
--- NOTE | 2018-09-01 19:25 | NUR ---
ALERT AND ORIENTED X4. LYING IN BED. RESP IRREG, SOB WITH MIN EXERTION. O2 @ 2L/NC. TELEMETRY SHOWS ST WITH RATE OF 103. PROD COUGH WITH YELLOW SPUTUM. REDNESS AND EXCORIATION NOTED UNDER BREASTS AND AXCILLA. 1+ EDEMA NOTED TO BLE. NO IV ACCESS. SPOKE WITH MATT CAMACHO ACCESS NURSE IN ER TO SEE IF SHE COULD POSSIBLY SEE PT TONIGHT AND SHE STATES SHE WOULD COME BY LATER IF POSSIBLE. PT VERY TALKATIVE. NO DISTRESS. SR ELEVATED X2. CL IN REACH.
[2018-09-01 20:00] VITALS: BP 133/63
--- NOTE | 2018-09-01 22:30 | NUR ---
16 FR HESS CATH INSERTED PER STERILE TECHNIQUE WITH IMMEDIATE RETURN OF PALE CLEAR YELLOW URINE. PT KAYLIN WELL.
[2018-09-02] VITALS: BP 135/58
[2018-09-02 03:00] VITALS: BP 140/67
[2018-09-02 07:05] LABS: ALBUMIN 3.1 g/dL (3.4-5.0); ALKALINE PHOSPHATASE 73 U/L (46-116); BILIRUBIN - TOTAL 0.35 mg/dL (0.2-1.3); CALCIUM 8.9 mg/dL (8.5-10.1); CARBON DIOXIDE 39.3 mmol/L (21.0-32.0); CHLORIDE - SERUM 94 mmol/L (98-107); CREATININE - SERUM 0.8 mg/dL (0.6-1.3); POTASSIUM - SERUM 4.8 mmol/L (3.5-5.1); PROTEIN - SERUM 6.8 g/dL (6.4-8.2); SODIUM 140 mmol/L (136-145); eGFR NON AFRICAN AMERICAN 79 mL/min (90-120)
[2018-09-02 07:11] LABS: ALT (SGPT) 11 U/L (10-68); CALC OSMOLALITY 287 mosm/kg (275-300); GLUCOSE 168 mg/dL (74-106); UREA NITROGEN 27 mg/dL (7-18)
[2018-09-02 07:14] LABS: BASOPHILS 0.1 % (0-2); EOSINOPHILS 0.1 % (0-7); HEMATOCRIT 32.9 % (36.0-48.0); HEMOGLOBIN 9.4 g/dL (12-16); IMMATURE GRANULOCYTES 0.7 % (0-5); LYMPHOCYTES 7.8 % (15-50); MCH 23.6 pg (26.0-34.0); MCHC 28.6 g/dL (31.0-37.0); MCV 82.5 fL (80.0-100.0); MONOCYTES 11.2 % (2-11); NEUTROPHILS 80.1 % (40-80); RBC 3.99 10x6/uL (4.00-5.40); RDW 15.6 % (11.5-14.5)
[2018-09-02 07:15] LABS: PLATELET COUNT 366 10x3/uL (130-400); WBC 16.2 10x3/uL (4.8-10.8)
[2018-09-02 08:28] VITALS: BP 123/64
--- NOTE | 2018-09-02 11:18 | NUR ---
MORNING ASSESSMENT COMPLETE. PT LYING IN BED AAOX 4 TO PERSON, PLACE, TIME AND SITUATION. NO IV ACCESS AT THIS TIME- WILL CALL VASCULAR ACCESS NURSE. PT DENIES NEEDS AT THIS TIME. CL IN REACH. SIDE RAILS UP X3 FOR PATIENT SAFETY
[2018-09-02 11:49] VITALS: BP 130/40
[2018-09-02 14:22] VITALS: Ht 152.4 cm; Wt 136.1 kg
[2018-09-02 16:02] VITALS: BP 118/68
--- NOTE | 2018-09-02 20:42 | NUR ---
rec'd. in bed 02 2l NC monitor showing sinus tach.102 cheng patent and draining lite yellow colored urine.no resp.difficulty observed at present time.will continue to monitor for any chges. resp. status and follow current plan of care
[2018-09-02 20:55] VITALS: BP 118/58
--- NOTE | 2018-09-03 00:30 | NUR ---
PT LYING IN BED RESTING, NO SIGNS OF DISTRESS. DENIES NEEDS. AGREE W/ GEARCASE ASSEMBLER ASSEESSMENT. CL IN REACH, WILL CONTINUE TO MONITOR
[2018-09-03 02:14] VITALS: BP 120/60
[2018-09-03 04:32] VITALS: BP 112/72
[2018-09-03 05:56] LABS: BASOPHILS 0.1 % (0-2); EOSINOPHILS 0 % (0-7); HEMATOCRIT 31.2 % (36.0-48.0); HEMOGLOBIN 8.9 g/dL (12-16); IMMATURE GRANULOCYTES 0.5 % (0-5); LYMPHOCYTES 9.5 % (15-50); MCH 23.5 pg (26.0-34.0); MCHC 28.5 g/dL (31.0-37.0); MCV 82.3 fL (80.0-100.0); MEAN PLATELET VOLUME 8.7 fL (7.4-10.4); MONOCYTES 10.4 % (2-11); NEUTROPHILS 79.5 % (40-80); RBC 3.79 10x6/uL (4.00-5.40); RDW 15.8 % (11.5-14.5); WBC 12.7 10x3/uL (4.8-10.8)
[2018-09-03 06:17] LABS: PLATELET COUNT 272 10x3/uL (130-400)
[2018-09-03 06:26] LABS: ALBUMIN 2.8 g/dL (3.4-5.0); ALKALINE PHOSPHATASE 61 U/L (46-116); BILIRUBIN - TOTAL 0.25 mg/dL (0.2-1.3); CALCIUM 8.4 mg/dL (8.5-10.1); CHLORIDE - SERUM 97 mmol/L (98-107); CREATININE - SERUM 0.8 mg/dL (0.6-1.3); MAGNESIUM - SERUM 1.8 mg/dL (1.8-2.4); PHOSPHOROUS 4.8 mg/dL (2.5-4.9); POTASSIUM - SERUM 4.1 mmol/L (3.5-5.1); PROTEIN - SERUM 6.8 g/dL (6.4-8.2); SODIUM 143 mmol/L (136-145); eGFR NON AFRICAN AMERICAN 79 mL/min (90-120)
[2018-09-03 06:29] LABS: CALC OSMOLALITY 294 mosm/kg (275-300); GLUCOSE 108 mg/dL (74-106); UREA NITROGEN 38 mg/dL (7-18)
[2018-09-03 06:30] LABS: ALT (SGPT) 22 U/L (10-68)
[2018-09-03 06:32] LABS: CARBON DIOXIDE 42.1 mmol/L (21.0-32.0)
--- NOTE | 2018-09-03 08:00 | NUR ---
PT AAOX4 RESP EVEN AND NONLABORED, NO SIGNS OF DISTRESS NOTED, CL IN REACH
--- NOTE | 2018-09-03 09:02 | MORECARE ---
CASE MANAGEMENT DISCHARGE SUMMARY PATIENT: DOUGLAS HILLS UNIT: [id number] ADM DATE: 08/31/18 AGE: 53 : 63 SEX: F ROOM/BED: D.[facility]8 AUTHOR: AMELIA MCGOVERN PHYSICIAN: REFERRING PHYSICIAN: KRISH MESA MD DATE OF SERVICE: 09/03/18 Discharge Plan Patient Name: DOUGLAS HILLS [facility] [facility] 1965 Planned Disposition: Nursing Facility [facility] Cert Anticipated Discharge Date: Discharge Date: Expected LOS: Initial Reviewer: [email or web address] Initial Review Date: 09/03/2018 Generated: 09/03/18 10:02 am Patient Name: DOUGLAS HILLS Page 89416 at 0902 All edits/amendments must be made on the electronic document DICTATION DATE: 09/03/18901 INTERVENTIONAL TECH: CLEMENT 09/03/18901 RPT#: [id number] DC DATE: STATUS: ADM IN [address] [place] [address] END OF REPORT
--- NOTE | 2018-09-03 09:10 | MORECARE ---
CASE MANAGEMENT DISCHARGE SUMMARY PATIENT: DOUGLAS HILLS UNIT: [id number] ADM DATE: 08/31/18 AGE: 53 : 63 SEX: F ROOM/BED: D.2238 AUTHOR: FROILAN,DOC PHYSICIAN: REFERRING PHYSICIAN: KRISH MESA MD DATE OF SERVICE: 09/03/18 Discharge Plan Patient Name: DOUGLAS HILLS Facility: [facility]:[place] : 1965 Planned Disposition: Nursing Facility [facility] Cert Anticipated Discharge Date: Discharge Date: Expected LOS: Initial Reviewer: [email or web address] Initial Review Date: 09/03/2018 Generated: 09/03/18 10:10 am Comments DCP- Discharge Planning Updated by [email or web address]: Thelma Yusuf on 09/03/18 8:[address] Patient Name: DOUGLAS HILLS Admission Status: ER Accout number: [id number] Admission Date: 08-31-2018 : 1965 Admission Diagnosis: Attending: KRISH MESA Current LOS: 3 Anticipated DC Date: Planned Disposition: Nursing Facility [facility] Cert Primary Insurance: [facility] MEDICARE SOLUTIONS Discharge Planning Comments: CM met with patient to discuss discharge planning, she is alone in the room. States she is still living with her daughter and her family. States house calls was coming to see her. States she no longer had [facility] coming out. States she is planning on retail store assistant care and is unsure of what facility to go to. States she will have to discuss it with her daughter. I asked her to let me know today after speaking with her daughter to get the referral started. CM will continue to follow and assist with discharge planning/needs. Custodial Engineer: Thelma Yusuf DCPIA - Discharge Planning Initial Assessment Updated by [email or web address]: Thelma Yusuf on 09/03/18 9:03 am * Is the patient Alert and Oriented? Yes * How many steps to enter\exit or inside your home? 2/0 * PCP Dr. Burnett * Pharmacy [facility] on [address] * Preadmission Environment Home with Family * ADLs Partial Dependent * Partial ADLs (Assistance needed) Ambulation Bathing Dressing Medication Management * Equipment Cane Nebulizer Other Oxygen Rolling Walker * Other Equipment [employer] * List name and contact numbers for known caregivers / representatives who currently or will assist patient after discharge: Ludy Li - DTR - [phone] Kayden Li - DIL - [phone] * Verbal permission to speak to the caregivers and representatives has been obtained from the patient. Yes * Community resources currently utilized Other * Please name any agencies selected above. [facility] VIKA Ayala DME for [employer] is [facility] in [place] * Additional services required to return to the preadmission environment? Yes * Can the patient safely return to the preadmission environment? No * Has this patient been hospitalized within the prior 30 days at any hospital? Yes Last DP export: 09/03/18 8:02 a Patient Name: DOUGLAS HILLS Page 52795 at 0910 All edits/amendments must be made on the electronic document DICTATION DATE: 09/03/18909 DEAF TEACHER: CLEMENT 09/03/18909 RPT#: [id number] DC DATE: STATUS: ADM IN [facility] [address] [place] [address] END OF REPORT
[2018-09-03 09:38] VITALS: BP 131/71
[2018-09-03 12:04] VITALS: BP 141/66
--- NOTE | 2018-09-03 12:23 | MORECARE ---
CASE MANAGEMENT DISCHARGE SUMMARY PATIENT: DOUGLAS HILLS UNIT: [id number] ADM DATE: 08/31/18 AGE: 53 : 63 SEX: F ROOM/BED: D.2238 AUTHOR: FROILANDOC PHYSICIAN: REFERRING PHYSICIAN: KRISH MESA MD DATE OF SERVICE: 09/03/18 Discharge Plan Patient Name: DOUGLAS HILLS Facility: [facility]:[place] : 1965 Planned Disposition: Nursing Facility [facility] Cert Anticipated Discharge Date: Discharge Date: Expected LOS: Initial Reviewer: [email or web address] Initial Review Date: 09/03/2018 Generated: 09/03/18 1:23 pm Comments DCP- Discharge Planning Updated by [email or web address]: Thelma Yusuf on 09/03/18 11:[address] I have called Mary Estrada with [facility] to send referral. She will call back. CM will continue to follow and assist with discharge planning/needs. DCP- Discharge Planning Updated by [email or web address]: Thelma Yusuf on 09/03/18 8:[address] Patient Name: ODUGLAS HILLS Admission Status: ER Accout number: [id number] Admission Date: 08-31-2018 : 1965 Admission Diagnosis: Attending: KRISH MESA Current LOS: 3 Anticipated DC Date: Planned Disposition: Nursing Facility [facility] Cert Primary Insurance: [facility] MEDICARE SOLUTIONS Discharge Planning Comments: CM met with patient to discuss discharge planning, she is alone in the room. States she is still living with her daughter and her family. [facility] house calls was coming to see her. States she no longer had [facility] coming out. States she is planning on [facility] slinger care and is unsure of what facility to go to. States she will have to discuss it with her daughter. I asked her to let me know today after speaking with her daughter to get the referral started. CM will continue to follow and assist with discharge planning/needs. Door Machine Operator: Thelma Yusuf DCPIA - Discharge Planning Initial Assessment Updated by [email or web address]: Thelma Yusuf on 09/03/18 9:03 am * Is the patient Alert and Oriented? Yes * How many steps to enter\exit or inside your home? 2/0 * PCP Dr. Burnett * Pharmacy [facility] on [address] * Preadmission Environment Home with Family * ADLs Partial Dependent * Partial ADLs (Assistance needed) Ambulation Bathing Dressing Medication Management * Equipment Cane Nebulizer Other Oxygen Rolling Walker * Other Equipment [employer] * List name and contact numbers for known caregivers / representatives who currently or will assist patient after discharge: Ludy Li DTR - [phone] Kayden Li DIL - [phone] * Verbal permission to speak to the caregivers and representatives has been obtained from the patient. Yes * Community resources currently utilized Other * Please name any agencies selected above. House Calls VIKA SANDY for [employer] is [facility] in [place] * Additional services required to return to the preadmission environment? Yes * Can the patient safely return to the preadmission environment? No * Has this patient been hospitalized within the prior 30 days at any hospital? Yes Last DP export: 09/03/18 8:10 a Patient Name: DOUGLAS HILLS Page 08949 at 1223 All edits/amendments must be made on the electronic document DICTATION DATE: 09/03/18 1223 BATCH MIXER: CLEMENT 09/03/18 1223 RPT#: [id number] DC DATE: STATUS: ADM IN [facility] [address] [place] [address] END OF REPORT
--- NOTE | 2018-09-03 12:55 | MORECARE ---
CASE MANAGEMENT DISCHARGE SUMMARY PATIENT: DOUGLAS HILLS UNIT: [id number] ADM DATE: 08/31/18 AGE: 53 : 63 SEX: F ROOM/BED: D.2238 AUTHOR: FROILAN,DOC PHYSICIAN: REFERRING PHYSICIAN: KRISH MESA MD DATE OF SERVICE: 09/03/18 Discharge Plan Patient Name: DOUGLAS HILLS Facility: [facility]:[place] : 1965 Planned Disposition: Nursing Facility [facility] Cert Anticipated Discharge Date: Discharge Date: Expected LOS: Initial Reviewer: [email or web address] Initial Review Date: 09/03/2018 Generated: 09/03/18 1:55 pm Comments DCP- Discharge Planning Updated by [id number]: Thelma Yusuf on 09/03/18 11:[address] Faxed clinical to Mary Estrada for [facility] per her request. CM will continue to follow and assist with discharge planning/needs. DCP- Discharge Planning Updated by [id number]: Thelma Yusuf on 09/03/18 11:[address] I have called Mary Estrada with [facility] to send referral. She will call back. CM will continue to follow and assist with discharge planning/needs. DCP- Discharge Planning Updated by [email or web address]: Thelma Yusuf on 09/03/18 8:[address] Patient Name: DOUGLAS HILLS Admission Status: ER Accout number: [id number] Admission Date: 08-31-2018 : 1965 Admission Diagnosis: Attending: KRISH MESA Current LOS: 3 Anticipated DC Date: Planned Disposition: Nursing Facility [facility] Cert Primary Insurance: [facility] MEDICARE SOLUTIONS Discharge Planning Comments: CM met with patient to discuss discharge planning, she is alone in the room. States she is still living with her daughter and her family. States house calls was coming to see her. States she no longer had [facility] coming out. States she is planning on shelter care and is unsure of what facility to go to. States she will have to discuss it with her daughter. I asked her to let me know today after speaking with her daughter to get the referral started. CM will continue to follow and assist with discharge planning/needs. Per Diem Interpreter: Thelma Madelin DCPIA - Discharge Planning Initial Assessment Updated by [id number]: Thelma Yusuf on 09/03/18 9:03 am * Is the patient Alert and Oriented? Yes * How many steps to enter\exit or inside your home? 2/0 * PCP Dr. Burnett * Pharmacy [facility] on [address] * Preadmission Environment Home with Family * ADLs Partial Dependent * Partial ADLs (Assistance needed) Ambulation Bathing Dressing Medication Management * Equipment Cane Nebulizer Other Oxygen Rolling Walker * Other Equipment [facility] * List name and contact numbers for known caregivers / representatives who currently or will assist patient after discharge: Ludy De Leonton DTR - [phone] Kayden Guillermo [facility] - [phone] * Verbal permission to speak to the caregivers and representatives has been obtained from the patient. Yes * Community resources currently utilized Other * Please name any agencies selected above. House Calls VIKA Ayala DME for [facility] is [facility] in [place] * Additional services required to return to the preadmission environment? Yes * Can the patient safely return to the preadmission environment? No * Has this patient been hospitalized within the prior 30 days at any hospital? Yes External Providers External Provider: [facility] Next Contact Date: Service Request Date: Service Type: Resolution: Reviewer: Comments: Last DP export: 09/03/18 11:23 a Patient Name: DOUGLAS HILLS Page [id number] at 1255 All edits/amendments must be made on the electronic document DICTATION DATE: 09/03/18 1255 SIPHON OPERATOR: CLEMENT 09/03/18 1255 RPT#: [id number] DC DATE: STATUS: ADM IN [facility] [address] [place] [address] END OF REPORT
--- NOTE | 2018-09-03 15:32 | NUR ---
OT NOTE: PT COMPLETED BUE AROM EXS FOR INCREASED ENDURANCE AND AX TOLERANCE. PT COMPLETED BED MOB WITH CGA. PT COMPLETED SIMPLE GROOMING TASK WITH SET UP. THANK YOU, CRISPIN UMANA
[2018-09-03 17:24] VITALS: BP 120/61
[2018-09-03 20:27] VITALS: BP 137/63
[2018-09-03 20:33] LABS: APPEARANCE CLEAR (CLEAR); BILIRUBIN NEGATIVE (NEGATIVE); COLOR YELLOW (YELLOW); GLUCOSE 250 mg/dL (NEGATIVE); KETONE NEGATIVE (NEGATIVE); NITRITE NEGATIVE (NEGATIVE); PROTEIN NEGATIVE (NEGATIVE); SPECIFIC GRAVITY 1.005 (1.005-1.020); UROBILINOGEN NORMAL (NORMAL)
--- NOTE | 2018-09-03 22:30 | NUR ---
PT SITTING UP IN BED, NO SIGNS OF DISTRESS. ALERT AND ORIENTED. DENIES NEEDS. AGREE W/ SECRETARY ADMINISTRATIVE ASSISTANT ASSESSMENT. CL IN REACH, WILL CONTINUE TO MONITOR
[2018-09-04 00:11] VITALS: BP 127/53
[2018-09-04 04:33] VITALS: BP 125/68
[2018-09-04 06:11] LABS: BASOPHILS 0 % (0-2); EOSINOPHILS 0.3 % (0-7); HEMATOCRIT 32.9 % (36.0-48.0); HEMOGLOBIN 9.4 g/dL (12-16); IMMATURE GRANULOCYTES 0.7 % (0-5); LYMPHOCYTES 14.8 % (15-50); MCH 23.9 pg (26.0-34.0); MCHC 28.6 g/dL (31.0-37.0); MCV 83.5 fL (80.0-100.0); MONOCYTES 11.5 % (2-11); NEUTROPHILS 72.7 % (40-80); PLATELET COUNT 293 10x3/uL (130-400); RBC 3.94 10x6/uL (4.00-5.40)
[2018-09-04 06:18] LABS: WBC 16.8 10x3/uL (4.8-10.8)
[2018-09-04 06:45] LABS: ANION GAP 9.3 mmol/L (8-16); BILIRUBIN - TOTAL 0.28 mg/dL (0.2-1.3); CALCIUM 8.6 mg/dL (8.5-10.1); CARBON DIOXIDE 38.7 mmol/L (21.0-32.0); PROTEIN - SERUM 6.6 g/dL (6.4-8.2)
[2018-09-04 09:00] VITALS: BP 126/60
--- NOTE | 2018-09-04 12:59 | NUR ---
OT NOTE: IN ROOM AMBULATION; SIMPLE ADL TASKS WITH SET UP. PT REPORTS FEELING MUCH BETTER. DISCUSSED POSSIBLE NH PLACEMENT AND PT LEANING IN THAT DIRECTION. REPORTS THAT SHE KNOWS IT WOULD BE MUCH MORE CLEAN AND THEY WOULD BE ABLE TO KEEP AN EYE ON HER MEDICAL CONDITION WITHOUT BEING SENT TO HOSPITAL EACH TIME. BERNADINE HILL, OTR/L
--- NOTE | 2018-09-04 13:18 | NUR ---
NUTRITION F/U CHART REVIEWED. PT TOLERATING DIABETIC DIET. NO COMPLAINTS. WILL CONTINUE TO PROVIDE DIET, MONITOR PT PROGRESS. RD FOLLOWING
[2018-09-04 13:56] VITALS: BP 119/66
[2018-09-04 17:12] VITALS: BP 136/63
--- NOTE | 2018-09-04 21:39 | NUR ---
RESTING IN BED RESP. EVEN AND UNLABORED CALL LIGHT IN REACH NO S/S OF DESTRESS.
[2018-09-05 05:50] LABS: BASOPHILS 0.1 % (0-2); EOSINOPHILS 1.3 % (0-7); HEMOGLOBIN 9.4 g/dL (12-16); IMMATURE GRANULOCYTES 0.7 % (0-5); LYMPHOCYTES 14.9 % (15-50); MCH 23.7 pg (26.0-34.0); MCHC 28.5 g/dL (31.0-37.0); MCV 83.1 fL (80.0-100.0); MEAN PLATELET VOLUME 8.9 fL (7.4-10.4); MONOCYTES 9.1 % (2-11); NEUTROPHILS 73.9 % (40-80); PLATELET COUNT 270 10x3/uL (130-400); RBC 3.97 10x6/uL (4.00-5.40); RDW 15.8 % (11.5-14.5); WBC 16.8 10x3/uL (4.8-10.8)
[2018-09-05 06:26] LABS: ALBUMIN 2.9 g/dL (3.4-5.0); ANION GAP 8.7 mmol/L (8-16); BILIRUBIN - TOTAL 0.17 mg/dL (0.2-1.3); CALCIUM 8.8 mg/dL (8.5-10.1); CARBON DIOXIDE 38.8 mmol/L (21.0-32.0); POTASSIUM - SERUM 3.5 mmol/L (3.5-5.1); PROTEIN - SERUM 6.9 g/dL (6.4-8.2)
[2018-09-05 08:46] VITALS: BP 137/79
[2018-09-05] MEDS ORDERED: LEVOFLOXACIN500 MG PO (12:40)
[2018-09-05 12:46] VITALS: BP 113/68
[2018-09-05] MEDS ORDERED: PREDNISONE10 MG PO (12:52)
--- NOTE | 2018-09-05 13:01 | MORECARE ---
CASE MANAGEMENT DISCHARGE SUMMARY PATIENT: DOUGLAS HILLS UNIT: [id number] ADM DATE: 08/31/18 AGE: 53 : 63 SEX: F ROOM/BED: D.2238 AUTHOR: FROILAN,DOC PHYSICIAN: REFERRING PHYSICIAN: KRISH MESA MD DATE OF SERVICE: 09/05/18 Discharge Plan Patient Name: DOUGLAS HILLS Facility: [facility]:[place] : 1965 Planned Disposition: Nursing Facility [facility] Cert Anticipated Discharge Date: Discharge Date: Expected LOS: Initial Reviewer: [email or web address] Initial Review Date: 09/03/2018 Generated: 09/05/18 2:01 pm Comments DCP- Discharge Planning Updated by [email or web address]: Thelma Marinsantiago on 09/05/18 11:[address] Received auth for admission to [facility]. She will be going to a skilled bed. They will pick her up at 1400. She is in agreement to discharge. CM will continue to follow and assist with discharge planning/needs. DCP- Discharge Planning Updated by [id number]: Thelma Yusuf on 09/03/18 11:[address] Faxed clinical to Mary Estrada for [facility] per her request. CM will continue to follow and assist with discharge planning/needs. DCP- Discharge Planning Updated by [id number]: Thelma Yusuf on 09/03/18 11:[address] I have called Mary Estrada with [facility] to send referral. She will call back. CM will continue to follow and assist with discharge planning/needs. DCP- Discharge Planning Updated by [id number]: Thelmamaria fernanda Yusuf on 09/03/18 8:[address] Patient Name: DOUGLAS HILLS Admission Status: ER Accout number: [id number] Admission Date: 08-31-2018 : 1965 Admission Diagnosis: Attending: KRISH MESA Current LOS: 3 Anticipated DC Date: Planned Disposition: Nursing Facility [facility] Cert Primary Insurance: [facility] MEDICARE SOLUTIONS Discharge Planning Comments: CM met with patient to discuss discharge planning, she is alone in the room. States she is still living with her daughter and her family. [facility] house calls was coming to see her. States she no longer had [facility] coming out. States she is planning on intermediate care and is unsure of what facility to go to. States she will have to discuss it with her daughter. I asked her to let me know today after speaking with her daughter to get the referral started. CM will continue to follow and assist with discharge planning/needs. Welt Insole Channeler: Thelma Yusuf DCPIA - Discharge Planning Initial Assessment Updated by [id number]: Thelma Yusuf on 09/03/18 9:03 am * Is the patient Alert and Oriented? Yes * How many steps to enter\exit or inside your home? 2/0 * PCP Dr. Burnett * Pharmacy [facility] on [facility] * Preadmission Environment Home with Family * ADLs Partial Dependent * Partial ADLs (Assistance needed) Ambulation Bathing Dressing Medication Management * Equipment Cane Nebulizer Other Oxygen Rolling Walker * Other Equipment [facility] * List name and contact numbers for known caregivers / representatives who currently or will assist patient after discharge: Ludyjeffrey Li DTR - [phone] Kayden Guillermo [facility] - [phone] * Verbal permission to speak to the caregivers and representatives has been obtained from the patient. Yes * Community resources currently utilized Other * Please name any agencies selected above. House Calls VIKA SANDY for [facility] is [facility] in [place] * Additional services required to return to the preadmission environment? Yes * Can the patient safely return to the preadmission environment? No * Has this patient been hospitalized within the prior 30 days at any hospital? Yes Coverage Notice Reviewer: [id number] - Thelma Yusuf Notice Issued Date-Time: 09/05/2018 12:53 Notice Type: IM Discharge Notice Notice Delivered To: Patient Relationship to Patient: Self Body Rolling Machine Tender Name: Delivery Method: HAND - Hand Delivered Adrianne Days: Prior Verbal Notification: Recipient Understood Notice: Yes Recipient Signature: Yes Med Rec Note Co-signed by Attending: Coverage Notice Comment: IMM explained, signed, given, copy placed in MR Last DP export: 09/03/18 11:55 a Patient Name: DOUGLAS HILLS Page [id number] at 1301 All edits/amendments must be made on the electronic document DICTATION DATE: 09/05/18 1301 DUMPSTER OPERATOR: DM 09/05/18 1301 RPT#: [id number] DC DATE: STATUS: ADM IN [facility] [address] [place] [address] END OF REPORT
--- NOTE | 2018-09-05 13:26 | NUR ---
R UPPER ARM MIDLINE REMOVED. TIP INTACT. NO BLEEDING NOTED. PT DENIES PAIN. PT UP IN BED EATING DINNER. PT STATED "I NEED MORE GRAVY FOR MY STUFFING AND TURKEY" INFORMED PT THAT I WOULD LET HER NURSE WILL KNOW. NO FUTHER CONCERNS AT THIS TIME. BED LOWERED AND LOCKED. CL IN REACH. CPOC
--- NOTE | 2018-09-05 17:21 | NUR ---
OT NOTE: PT COMPLETED UE AROM AXS. PT COMPLETED GROOMING AND HYGIENE TASKS WITH SET UP. THANK YOU, CRISPIN UMANA
--- NOTE | 2018-09-06 16:54 | MORECARE ---
CASE MANAGEMENT DISCHARGE SUMMARY PATIENT: DOUGLAS HILLS UNIT: [id number] ADM DATE: 08/31/18 AGE: 53 : 63 SEX: F ROOM/BED: D.2238 AUTHOR: FROILAN,DOC PHYSICIAN: REFERRING PHYSICIAN: KRISH MESA MD DATE OF SERVICE: 09/06/18 Discharge Plan Patient Name: DOUGLAS HILLS Facility: [facility]:[place] : 1965 Planned Disposition: Nursing Facility [facility] Cert Anticipated Discharge Date: Discharge Date: 09/05/2018 Expected LOS: 0 Initial Reviewer: [email or web address] Initial Review Date: 09/03/2018 Generated: 09/06/18 5:54 pm Comments DCP- Discharge Planning Updated by [id number]: Thelma Yusuf on 09/05/18 11:[address] Received auth for admission to [facility]. She will be going to a skilled bed. They will pick her up at 1400. She is in agreement to discharge. CM will continue to follow and assist with discharge planning/needs. DCP- Discharge Planning Updated by [id number]: Thelma Yusuf on 09/03/18 11:[address] Faxed clinical to Mary Estrada for [facility] per her request. CM will continue to follow and assist with discharge planning/needs. DCP- Discharge Planning Updated by [email or web address]: Thelma Yusuf on 09/03/18 11:[address] I have called Mary Estrada with [facility] to send referral. She will call back. CM will continue to follow and assist with discharge planning/needs. DCP- Discharge Planning Updated by [id number]: Thelma Yusuf on 09/03/18 8:[address] Patient Name: DOUGLAS HILLS Admission Status: ER Accout number: [id number] Admission Date: 08-31-2018 : 1965 Admission Diagnosis: Attending: KRISH MESA Current LOS: 3 Anticipated DC Date: Planned Disposition: Nursing Facility [facility] Cert Primary Insurance: [facility] MEDICARE SOLUTIONS Discharge Planning Comments: CM met with patient to discuss discharge planning, she is alone in the room. States she is still living with her daughter and her family. [facility] house calls was coming to see her. States she no longer had [facility] coming out. States she is planning on half-way care and is unsure of what facility to go to. States she will have to discuss it with her daughter. I asked her to let me know today after speaking with her daughter to get the referral started. CM will continue to follow and assist with discharge planning/needs. Marine Transport Professionals: Thelma Yusuf DCPIA - Discharge Planning Initial Assessment Updated by [email or web address]: Thelma Yusuf on 09/03/18 9:03 am * Is the patient Alert and Oriented? Yes * How many steps to enter\exit or inside your home? 2/0 * PCP Dr. Burnett * Pharmacy [facility] on [address] * Preadmission Environment Home with Family * ADLs Partial Dependent * Partial ADLs (Assistance needed) Ambulation Bathing Dressing Medication Management * Equipment Cane Nebulizer Other Oxygen Rolling Walker * Other Equipment [facility] * List name and contact numbers for known caregivers / representatives who currently or will assist patient after discharge: Ludy De Leonton DTR - [phone] Kayden Guillermo [facility] - [phone] * Verbal permission to speak to the caregivers and representatives has been obtained from the patient. Yes * Community resources currently utilized Other * Please name any agencies selected above. House Calls VIKA SANDY for [facility] is [facility] in [place] * Additional services required to return to the preadmission environment? Yes * Can the patient safely return to the preadmission environment? No * Has this patient been hospitalized within the prior 30 days at any hospital? Yes Coverage Notice Reviewer: [id number] - Thelma Yusuf Notice Issued Date-Time: 09/05/2018 12:53 Notice Type: IM Discharge Notice Notice Delivered To: Patient Relationship to Patient: Self Diesel Inspector Name: Delivery Method: HAND - Hand Delivered Adrianne Days: Prior Verbal Notification: Recipient Understood Notice: Yes Recipient Signature: Yes Med Rec Note Co-signed by Attending: Coverage Notice Comment: IMM explained, signed, given, copy placed in MR Last DP export: 09/05/18 12:01 p Patient Name: DOUGLAS HILLS Page [id number] Electronically Signed by AMELIA [facility] on 09/06/18 at 1654 All edits/amendments must be made on the electronic document DICTATION DATE: 09/06/181653 WOOD BORING MACHINE OPERATOR: CLEMENT 09/06/181653 RPT#: [id number] DC DATE:09/05/18 STATUS: DIS IN [facility] [address] [place] [address] END OF REPORT
== END 2018-09-05 17:21 | DRG 189 ==
LOC: D.ER 11:57 → D.MS 13:21 → D.EDHOLD 13:21 → D.MS 15:13
PROVIDERS: Family Medicine; Internal Medicine Nephrology; ADMIT Family Medicine
PROC: 05HY33Z Insertion of Infusion Device into Upper Vein, Percutaneous Approach (ICD-10-PCS; principal; 2018-09-02)
DX: J96.21 Acute and chronic respiratory failure with hypoxia (principal); J44.0 Chronic obstructive pulmonary disease with (acute) lower respiratory infection; J44.1 Chronic obstructive pulmonary disease with (acute) exacerbation; E66.2 Morbid (severe) obesity with alveolar hypoventilation; Z68.43 Body mass index [BMI] 50.0-59.9, adult; I50.32 Chronic diastolic (congestive) heart failure; I10 Essential (primary) hypertension; J96.11 Chronic respiratory failure with hypoxia; J96.12 Chronic respiratory failure with hypercapnia; E11.9 Type 2 diabetes mellitus without complications; J20.9 Acute bronchitis, unspecified; K75.81 Nonalcoholic steatohepatitis (NASH)

== ENCOUNTER → 2018-10-10 07:35 | Outpatient (CLI) | payer MEDICARE, MEDICAID ==
[2018-09-02 14:22] VITALS: BMI 58.5
[~2018-10-10 07:35] MED LIST changes: +LEVOFLOXACIN500 MG PO
== END | disposition home or self-care (01) ==
LOC: D.RAD 09-02 08:00 → D.RT 09-02 08:00 → D.RAD 09-02 09:00 → D.RT 10-08 08:00 → D.RAD 10-08 09:15 → D.RT 07:35
PROVIDERS: ATTEND Internal Medicine Pulmonary Disease
DX: I50.9 Heart failure, unspecified (principal)

== ENCOUNTER 2018-10-15 19:23 | Inpatient (IN) | payer MEDICARE, MEDICAID ==
[~2018-10-15] VITALS: Ht 152.4 cm; Wt 149.7 kg
[~2018-10-15 19:23] MED LIST changes: -LEVOTHYROXINE50 MCG PO; +LEVOTHYROXINE75 MCG PO
--- NOTE | 2018-10-15 20:00 | NUR ---
PT IN PER EMS VIA STRETCHER WITH C/O SOB, ALSO STATES SHE IS HAVING INVOLUNTARY MUSCLE MOVEMENTS X 3 DAYS. NOT SURE IF SHE HAS STARTED ANY NEW MEDICATIONS.
[2018-10-15 20:30] VITALS: BP 118/73
[2018-10-15 20:59] LABS: BASOPHILS 0.2 % (0-2); EOSINOPHILS 1.6 % (0-7); HEMATOCRIT 30.9 % (36.0-48.0); HEMOGLOBIN 8.5 g/dL (12-16); LYMPHOCYTES 13.4 % (15-50); MCH 22.3 pg (26.0-34.0); MCHC 27.5 g/dL (31.0-37.0); MCV 81.1 fL (80.0-100.0); MEAN PLATELET VOLUME 8.7 fL (7.4-10.4); MONOCYTES 10.4 % (2-11); NEUTROPHILS 73.4 % (40-80); PLATELET COUNT 260 10x3/uL (130-400); RBC 3.81 10x6/uL (4.00-5.40); RDW 16.6 % (11.5-14.5); WBC 12.2 10x3/uL (4.8-10.8)
--- NOTE | 2018-10-15 21:00 | NUR ---
PT STATES SHE IS FEELING MUCH BETTER, VITAL SIGNS STABLE. PT IS ON BIPAP, RESP TO BEDSIDE.
[2018-10-15 21:03] LABS: APTT 29.3 SECONDS (22.8-39.4); INR 1.02 (0.85-1.17); PROTIME 12.9 SECONDS (11.6-15.0)
[2018-10-15 21:05] VITALS: BP 117/78
[2018-10-15 21:09] LABS: ALBUMIN 2.9 g/dL (3.4-5.0); ALKALINE PHOSPHATASE 81 U/L (46-116); ALT (SGPT) 10 U/L (10-68); BILIRUBIN - TOTAL 0.21 mg/dL (0.2-1.3); CALC OSMOLALITY 288 mosm/kg (275-300); CALCIUM 9.1 mg/dL (8.5-10.1); CHLORIDE - SERUM 93 mmol/L (98-107); CREATININE - SERUM 1.2 mg/dL (0.6-1.3); GLUCOSE 107 mg/dL (74-106); POTASSIUM - SERUM 3.1 mmol/L (3.5-5.1); PROTEIN - SERUM 7.6 g/dL (6.4-8.2); SODIUM 140 mmol/L (136-145); UREA NITROGEN 41 mg/dL (7-18); eGFR NON AFRICAN AMERICAN 50 mL/min (90-120)
[2018-10-15 21:21] LABS: CKMB 1.3 U/L (0.0-3.6); CREATINE KINASE 24 UL (21-215); PRO BNP 804 pg/mL (0-125)
[2018-10-15 21:25] LABS: CARBON DIOXIDE 50.9 mmol/L (21.0-32.0); TROPONIN-I < 0.017 ng/mL (0.000-0.060)
[2018-10-15 22:00] VITALS: BP 122/78
--- NOTE | 2018-10-15 22:00 | NUR ---
TO BE ADMITTED, WAITING FOR ROOM ASSIGNMENT.
[2018-10-15 23:04] VITALS: BP 106/81
[2018-10-16] VITALS (7 sets, daily range): BP systolic 113–128; BP diastolic 46–60; Ht 152.4 cm; Wt 149.7 kg
--- NOTE | 2018-10-16 01:07 | NUR ---
RECIEVED REPORT FROM LISANDRA ACKERMAN FROM ER. ON ARRIVAL PT VSS, AAOX3, PT ON BIPAP. ADMISSION ASSESMENT COMPLETED. PT ANSWERED MOST OF THE QUESTIONS. HESS ON ARRIVAL, 250MLS. PT CURRENLTY RESTING IN BED WITH EYES CLOSED. WILL CPOC. CL IN REACH, BED IN LOW, SR UP X2.
--- NOTE | 2018-10-16 01:11 | NUR ---
HIRAL FROM [facility] CALLED TO FIND OUT HOW PT WAS DOING. WILL CTM.
--- NOTE | 2018-10-16 01:41 | NUR ---
TELEMETRY ON PT. PT CURRENTLY LAYING IN BED WITH EYES CLOSED. WILL CTM.
[2018-10-16 05:47] LABS: BASOPHILS 0 % (0-2); EOSINOPHILS 0.1 % (0-7); HEMATOCRIT 31.7 % (36.0-48.0); HEMOGLOBIN 8.5 g/dL (12-16); IMMATURE GRANULOCYTES 0.6 % (0-5); LYMPHOCYTES 7.3 % (15-50); MCH 21.9 pg (26.0-34.0); MCHC 26.8 g/dL (31.0-37.0); MCV 81.7 fL (80.0-100.0); MEAN PLATELET VOLUME 8.5 fL (7.4-10.4); PLATELET COUNT 240 10x3/uL (130-400); RBC 3.88 10x6/uL (4.00-5.40); RDW 16.4 % (11.5-14.5); WBC 11.2 10x3/uL (4.8-10.8)
[2018-10-16 06:35] LABS: ALBUMIN 2.9 g/dL (3.4-5.0); BILIRUBIN - TOTAL 0.17 mg/dL (0.2-1.3); CALCIUM 8.9 mg/dL (8.5-10.1); PROTEIN - SERUM 7.4 g/dL (6.4-8.2)
[2018-10-16 07:41] LABS: ANION GAP 3.4 mmol/L (8-16); CARBON DIOXIDE 48.6 mmol/L (21.0-32.0)
--- NOTE | 2018-10-16 07:49 | NUR ---
REPORT RECEIVED. WILL CONTINUE WITH POC. PT CURRENTLY RESTING LYING SUPINE. CALL LIGHT W/I REACH. BIPAP ON AND FUNCTIONING PROPERLY. R.SHOULDER AND L.HAND PIV SALINE LOCKED. NO S/S OF DISTRESS NOTED. WILL CTM.
--- NOTE | 2018-10-16 12:39 | NUR ---
I have reviewed this patient and I concur with the Shift Assessment completed by the Licensed Practical Nurse today this shift.
[2018-10-16 13:16] LABS: APPEARANCE CLEAR (CLEAR); BILIRUBIN NEGATIVE (NEGATIVE); COLOR YELLOW (YELLOW); GLUCOSE NEGATIVE (NEGATIVE); KETONE NEGATIVE (NEGATIVE); NITRITE NEGATIVE (NEGATIVE); PROTEIN NEGATIVE (NEGATIVE); UROBILINOGEN NORMAL (NORMAL)
--- NOTE | 2018-10-16 17:14 | MORECARE ---
CASE MANAGEMENT DISCHARGE SUMMARY PATIENT: DOUGLAS HILLS UNIT: [id number] ADM DATE: 10/15/18 AGE: 53 : 63 SEX: F ROOM/BED: D.2133 AUTHOR: AMELIA MCGOVERN PHYSICIAN: REFERRING PHYSICIAN: CHARLIE HARO MD DATE OF SERVICE: 10/16/18 Discharge Plan Patient Name: DOUGLAS HILLS Facility: [facility]:[place] : 1965 Planned Disposition: Nursing Facility [facility] Cert Anticipated Discharge Date: 10/16/18 Discharge Date: Expected LOS: 1 Initial Reviewer: [email or web address] Initial Review Date: 10/16/2018 Generated: 10/16/18 6:14 pm DCPIA - Discharge Planning Initial Assessment Updated by [email or web address]: Davin Osman on 10/16/18 5:11 pm * Is the patient Alert and Oriented? Yes * How many steps to enter\exit or inside your home? NONE * PCP DR. HECK * Pharmacy [facility] * Preadmission Environment [facility] * Facility Name [facility] * ADLs Partial Dependent * Partial ADLs (Assistance needed) Ambulation Bathing Medication Management Transfers * Equipment Other * Other Equipment TRILOGY ALL MEDICAL EQUIPMENT PROVIDED BY FACILITY * List name and contact numbers for known caregivers / representatives who currently or will assist patient after discharge: ALMA ALVAREZ, DTR, * Verbal permission to speak to the caregivers and representatives has been obtained from the patient. N/A * Community resources currently utilized None * Please name any agencies selected above. NONE * Additional services required to return to the preadmission environment? No * Can the patient safely return to the preadmission environment? Yes * Has this patient been hospitalized within the prior 30 days at any hospital? No Patient Name: DOUGLAS HILLS Page [id number] at 7064 All edits/amendments must be made on the electronic document DICTATION DATE: 10/16/181712 OFFSET MACHINE OPERATOR: CLEMENT 10/16/181712 RPT#: [id number] DC DATE: STATUS: ADM IN [facility] [address] [place] [address] END OF REPORT
--- NOTE | 2018-10-16 17:22 | MORECARE ---
CASE MANAGEMENT DISCHARGE SUMMARY PATIENT: DOUGLAS HILLS UNIT: [id number] ADM DATE: 10/15/18 AGE: 53 : 63 SEX: F ROOM/BED: D.2133 AUTHOR: FROILAN,DOC PHYSICIAN: REFERRING PHYSICIAN: CHARLIE HARO MD DATE OF SERVICE: 10/16/18 Discharge Plan Patient Name: DOUGLAS HILLS Facility: [facility]:[place] : 1965 Planned Disposition: Nursing Facility [facility] Cert Anticipated Discharge Date: 10/16/18 Discharge Date: Expected LOS: 1 Initial Reviewer: [email or web address] Initial Review Date: 10/16/2018 Generated: 10/16/18 6:22 pm Comments DCP- Discharge Planning Updated by [id number]: Davin Osman on 10/16/18 4:[address] Patient Name: DOUGLAS HILLS Admission Status: ER Accout number: [id number] Admission Date: 10-15-2018 : 1965 Admission Diagnosis: Attending: CHARLIE HARO Current LOS: 1 Anticipated DC Date: 10-16-2018 Planned Disposition: Nursing Facility [facility] Cert Primary Insurance: [facility] MEDICARE SOLUTIONS PLANNED EXTERNAL PROVIDER: [facility], LONG TERM CARE MEDICAID BED Discharge Planning Comments: CM MET WITH PT IN ROOM TO DISCUSS DISCHARGE PLANNING AND NEEDS. PT REPORTS LIVING AT [facility] IN MANAGEMENT SME CARE. PT HAS ALL MEDICAL EQUIPMENT PROVIDED BY FACILITY, PT HAS TRILOGY MACHINE. PT DENIES DISCHARGE NEEDS, REPORTS [facility] WILL PICK HER UP FOR DISCHARGE HOME TO [facility]. CM GAVE MATTRESS MAKERINTERMEDIATE FACILITY LISTING OF PROVIDERS, PT SIGNED CHOICE FOR [facility]. CM TO FOLLOW UP WITH BERENICE OF [facility] TO CLARIFY IF PT WILL RETURN TO MANAGEMENT SME CARE MEDICAID BED OR SKILLED MEDICARE BED AT HOSPITAL DISCHARGE. FOR DISCHARGE, FAX DISCHARGE INFORMATION TO [facility], , NURSE REPORT TO BE CALLED TO THE [facility] AT [phone]. PT TO TRANSPORT VIA AMBULANCE IF NOT ABLE TO SAFELY MAINTAIN ERECT SITTING POSITION. Chiropractic Teacher: Davin Osman DCPIA - Discharge Planning Initial Assessment Updated by [email or web address]: Davin Osman on 10/16/18 5:11 pm * Is the patient Alert and Oriented? Yes * How many steps to enter\exit or inside your home? NONE * PCP DR. HECK * Pharmacy [facility] * Preadmission Environment [facility] * Facility Name [facility] * ADLs Partial Dependent * Partial ADLs (Assistance needed) Ambulation Bathing Medication Management Transfers * Equipment Other * Other Equipment TRILOGY ALL MEDICAL EQUIPMENT PROVIDED BY FACILITY * List name and contact numbers for known caregivers / representatives who currently or will assist patient after discharge: ALMA ALVAREZ, DTR, * Verbal permission to speak to the caregivers and representatives has been obtained from the patient. N/A * Community resources currently utilized None * Please name any agencies selected above. NONE * Additional services required to return to the preadmission environment? No * Can the patient safely return to the preadmission environment? Yes * Has this patient been hospitalized within the prior 30 days at any hospital? No Coverage Notice Reviewer: [email or web address] Bayron Osman Notice Issued Date-Time: 10/16/2018 17:00 Notice Type: Patient Choice Letter Notice Delivered To: Patient Relationship to Patient: Advertising Job Titles Name: Delivery Method: HAND - Hand Delivered Adrianne Days: Prior Verbal Notification: Recipient Understood Notice: Yes Recipient Signature: Yes Med Rec Note Co-signed by Attending: Coverage Notice Comment: THE Nathan DP export: 10/16/18 4:14 p Patient Name: DOUGLAS HILLS Page 44864 at 1722 All edits/amendments must be made on the electronic document DICTATION DATE: 10/16/181721 BATCH PLANT OPERATOR: CLEMENT 10/16/181721 RPT#: [id number] DC DATE: STATUS: ADM IN [facility] [address] [place] [address] END OF REPORT
--- NOTE | 2018-10-16 20:00 | NUR ---
PT LAYING IN BED ALERT AND ORIENTED. PT COMPLAINS OF PAIN IN BACK. PRN PAIN MED GIVEN. NO S/S OF DISTRESS. BED LOW CALL LIGHT WITHIN REACH. WILL CONTINUE TO MONITOR.
[2018-10-17 00:30] VITALS: BP 118/46
--- NOTE | 2018-10-17 03:10 | NUR ---
PT RESTING IN BED WITH EYES CLOSED RR EVEN AND UNLABORED. NO S/S OF DISTRESS. BED LOW CALL LIGHT WITHIN REACH. WILL CONTINUE TO MONITOR.
--- NOTE | 2018-10-17 04:31 | NUR ---
I have reviewed this patient and I concur with the Shift Assessment completed by the Licensed Practical Nurse today this shift.
[2018-10-17 05:00] VITALS: BP 122/56
[2018-10-17 07:07] LABS: BASOPHILS 0 % (0-2); EOSINOPHILS 0 % (0-7); HEMATOCRIT 29.9 % (36.0-48.0); HEMOGLOBIN 8.4 g/dL (12-16); IMMATURE GRANULOCYTES 0.5 % (0-5); LYMPHOCYTES 7.9 % (15-50); MCH 22.4 pg (26.0-34.0); MCHC 28.1 g/dL (31.0-37.0); MEAN PLATELET VOLUME 8.7 fL (7.4-10.4); MONOCYTES 8.8 % (2-11); NEUTROPHILS 82.8 % (40-80); PLATELET COUNT 286 10x3/uL (130-400); RBC 3.75 10x6/uL (4.00-5.40); RDW 16.2 % (11.5-14.5)
--- NOTE | 2018-10-17 07:15 | NUR ---
REPORT RECIEVED AND MORNING COMPLETE. PT LAYING IN BED IN SUPINE POSITION. PT AWAKE AND ALERT AND ORIENTED. PT STATES NO NEEDS AT THIS TIME.CALL LIGHT WITHIN REACH AND BED IN LOWEST POSITION. PT IS WEARING NC AT 5L HIGH FLOW.
[2018-10-17 07:32] LABS: CALCIUM 8.7 mg/dL (8.5-10.1); CREATININE - SERUM 0.9 mg/dL (0.6-1.3); POTASSIUM - SERUM 3.4 mmol/L (3.5-5.1)
[2018-10-17 07:45] LABS: MCV 79.7 fL (80.0-100.0)
[2018-10-17 08:01] LABS: ANION GAP 2.2 mmol/L (8-16)
[2018-10-17 08:02] LABS: CARBON DIOXIDE 46.2 mmol/L (21.0-32.0)
[2018-10-17 08:32] VITALS: BP 115/55
--- NOTE | 2018-10-17 11:02 | MORECARE ---
CASE MANAGEMENT DISCHARGE SUMMARY PATIENT: DOUGLAS HILLS UNIT: [id number] ADM DATE: 10/15/18 AGE: 53 : 63 SEX: F ROOM/BED: D.2133 AUTHOR: FROILAN,DOC PHYSICIAN: REFERRING PHYSICIAN: CHARLIE HARO MD DATE OF SERVICE: 10/17/18 Discharge Plan Patient Name: DOUGLAS HILLS Facility: [facility]:[place] : 1965 Planned Disposition: Nursing Facility [facility] Cert Anticipated Discharge Date: 10/17/18 Discharge Date: Expected LOS: 2 Initial Reviewer: [id number] Initial Review Date: 10/16/2018 Generated: 10/17/18 12:02 pm Comments DCP- Discharge Planning Updated by [id number]: Davin Osman on 10/16/18 4:[address] Patient Name: DOUGLAS HILLS Admission Status: ER Accout number: [id number] Admission Date: 10-15-2018 : 1965 Admission Diagnosis: Attending: CHARLIE HARO Current LOS: 1 Anticipated DC Date: 10-16-2018 Planned Disposition: Nursing Facility [facility] Cert Primary Insurance: [facility] MEDICARE SOLUTIONS PLANNED EXTERNAL PROVIDER: [facility], LONG TERM CARE MEDICAID BED Discharge Planning Comments: CM MET WITH PT IN ROOM TO DISCUSS DISCHARGE PLANNING AND NEEDS. [facility] IN CONTROLLER OPERATIONS AND HR MANAGER CARE. PT HAS ALL MEDICAL EQUIPMENT PROVIDED BY FACILITY, PT HAS TRILOGY MACHINE. PT DENIES DISCHARGE NEEDS, REPORTS [facility] FOR [facility] HOME [facility]. CM GAVE WASTE WATER WORKERUSP FACILITY LISTING OF PROVIDERS, PT SIGNED CHOICE FOR [facility]. CM TO FOLLOW UP WITH BERENICE OF [facility] TO CLARIFY IF PT WILL RETURN TO [facility] MEDICAID BED OR SKILLED MEDICARE BED AT HOSPITAL DISCHARGE. FOR DISCHARGE, FAX DISCHARGE INFORMATION TO THE [facility], , NURSE REPORT TO BE CALLED TO THE [facility] AT [phone]. PT TO TRANSPORT VIA AMBULANCE IF NOT ABLE TO SAFELY MAINTAIN ERECT SITTING POSITION. Transportation Job Titles: Davin Osman DCPIA - Discharge Planning Initial Assessment Updated by [email or web address]: Davin Osman on 10/16/18 5:11 pm * Is the patient Alert and Oriented? Yes * How many steps to enter\exit or inside your home? NONE * PCP DR. HECK * [facility] * Preadmission Environment [facility] * Facility Name [facility] * ADLs Partial Dependent * Partial ADLs (Assistance needed) Ambulation Bathing Medication Management Transfers * Equipment Other * Other Equipment TRILOGY ALL MEDICAL EQUIPMENT PROVIDED BY FACILITY * List name and contact numbers for known caregivers / representatives who currently or will assist patient after discharge: ALMA ALVAREZ, DTR, * Verbal permission to speak to the caregivers and representatives has been obtained from the patient. N/A * Community resources currently utilized None * Please name any agencies selected above. NONE * Additional services required to return to the preadmission environment? No * Can the patient safely return to the preadmission environment? Yes * Has this patient been hospitalized within the prior 30 days at any hospital? No Coverage Notice Reviewer: [id number] Bayron Osman Notice Issued Date-Time: 10/16/2018 17:00 Notice Type: Patient Choice Letter Notice Delivered To: Patient Relationship to Patient: Mathematics Improvement Teacher Name: Delivery Method: HAND - Hand Delivered Adrianne Days: Prior Verbal Notification: Recipient Understood Notice: Yes Recipient Signature: Yes Med Rec Note Co-signed by Attending: Coverage Notice Comment: [facility] Reviewer: [id number] Bayron Osman Notice Issued Date-Time: 10/17/2018 10:25 Notice Type: IM Discharge Notice Notice Delivered To: Patient Relationship to Patient: Mathematics Improvement Teacher Name: Delivery Method: HAND - Hand Delivered Adrianne Days: Prior Verbal Notification: Recipient Understood Notice: Yes Recipient Signature: Yes Med Rec Note Co-signed by Attending: Coverage Notice Comment: Last DP export: 10/16/18 4:22 p Patient Name: DOUGLAS HILLS Page [id number] at 1102 All edits/amendments must be made on the electronic document DICTATION DATE: 10/17/181101 METALLURGICAL OR MATERIALS TECHNICIAN: CLEMENT 10/17/181101 RPT#: [id number] DC DATE: STATUS: ADM IN [facility] [address] [place] [address] END OF REPORT
--- NOTE | 2018-10-17 11:11 | MORECARE ---
CASE MANAGEMENT DISCHARGE SUMMARY PATIENT: DOUGLAS HILLS UNIT: [id number] ADM DATE: 10/15/18 AGE: 53 : 63 SEX: F ROOM/BED: D.2133 AUTHOR: FROILAN,DOC PHYSICIAN: REFERRING PHYSICIAN: CHARLIE HARO MD DATE OF SERVICE: 10/17/18 Discharge Plan Patient Name: DOUGLAS HILLS Facility: [facility]:[place] : 1965 Planned Disposition: Nursing Facility [facility] Cert Anticipated Discharge Date: 10/17/18 Discharge Date: Expected LOS: 2 Initial Reviewer: [id number] Initial Review Date: 10/16/2018 Generated: 10/17/18 12:11 pm Comments DCP- Discharge Planning Updated by [email or web address]: Davin Osman on 10/17/18 10:[address] Patient Name: DOUGLAS HILLS Encounter No: [id number] : 1965 Primary Insurance: [facility] MEDICARE SOLUTIONS Anticipated DC Date: 10-17-2018 Planned Disposition: Nursing Facility [facility] Cert External Planned Provider: [facility], LONG TERM CARE MEDICAID BED DCP follow-up note: CM RECEIVED DISCHARGE ORDER, SPOKE TO PT IN ROOM, DISCUSSED DISCHARGE PLAN. PT IN AGREEMENT WITH DISCHARGE BACK TO JAIL CARE AT THE [facility]. CM SPOKE TO SENIOR INVESTIGATOR NURSE, PT MENTIONED TO HER THAT PT NEEDS NEW TRILOGY AT FACILITY. CM CALLED THE [facility], , SPOKE TO HARITHA WHO INFORMED CM THAT PT WILL RETURN TO [facility] BED AT THE [facility], THEY WILL TRANSPORT TODAY. PT MISSED HER OUTPATIENT APPOINTMENT WITH DR. ANGELES WHO WILL NOT PROVIDE NEW ORDERS FOR TRILOGY UNTIL HE SEE'S HER OUTPATIENT. THE [facility] NEEDS NEW ORDER FOR TRILOGY AND SETTINGS PT HAS NOT BEEN USING HER HOME TRILOGY THAT PT BROUGHT WITH HER UPON ADMISSION TO SENIOR CARE, IT DOES NOT HAVE NEEDED HOSES. CM PAGED DR. HEREDIA AND NOTIFIED SENIOR INVESTIGATOR NURSE. FOR DISCHARGE TO THE [facility], FACILITY NEEDS NEW TRILOGY ORDERS IF DR. HEREDIA WANTS PT TO HAVE THE MACHINE. FAX DISCHARGE INFORMATION AND ANY NEW ORDERS TO THE [facility], . NURSE REPORT TO BE CALLED TO THE [facility] AT [phone]. THE [facility] TO PROVIDE VAN TRANSPORTATION. Davin Osman, CASE MANAGEMENT DCP- Discharge Planning Updated by [id number]: Davin Osman on 10/16/18 4:[address] Patient Name: DOUGLAS HILLS Admission Status: ER Accout number: [id number] Admission Date: 10-15-2018 : 1965 Admission Diagnosis: Attending: CHARLIE HARO Current LOS: 1 Anticipated DC Date: 10-16-2018 Planned Disposition: Nursing Facility [facility] Cert Primary Insurance: [facility] MEDICARE SOLUTIONS PLANNED EXTERNAL PROVIDER: [facility] TERM CARE MEDICAID BED Discharge Planning Comments: CM MET WITH PT IN ROOM TO DISCUSS DISCHARGE PLANNING AND NEEDS. PT REPORTS LIVING AT THE [facility] IN JAIL CARE. PT HAS ALL MEDICAL EQUIPMENT PROVIDED BY FACILITY, PT HAS TRILOGY MACHINE. PT DENIES DISCHARGE NEEDS, REPORTS THE [facility] WILL PICK HER UP FOR DISCHARGE HOME TO THE [facility]. CM GAVE ALGOLOGY TEACHERFCI FACILITY LISTING OF PROVIDERS, PT SIGNED CHOICE FOR THE [facility]. CM TO FOLLOW UP WITH BERENICE OF THE [facility] TO CLARIFY IF PT WILL RETURN TO [facility] MEDICAID BED OR SKILLED MEDICARE BED AT HOSPITAL DISCHARGE. FOR DISCHARGE, FAX DISCHARGE INFORMATION TO THE [facility], , NURSE REPORT TO BE CALLED TO THE [facility] AT [phone]. PT TO TRANSPORT VIA AMBULANCE IF NOT ABLE TO SAFELY MAINTAIN ERECT SITTING POSITION. Office Cleaner: Davin Osman DCPIA - Discharge Planning Initial Assessment Updated by [id number]: Davin Osman on 10/16/18 5:11 pm * Is the patient Alert and Oriented? Yes * How many steps to enter\exit or inside your home? NONE * PCP DR. HECK * [facility] * Preadmission Environment [facility] * Facility Name [facility] * ADLs Partial Dependent * Partial ADLs (Assistance needed) Ambulation Bathing Medication Management Transfers * Equipment Other * Other Equipment TRILOGY ALL MEDICAL EQUIPMENT PROVIDED BY FACILITY * List name and contact numbers for known caregivers / representatives who currently or will assist patient after discharge: ALMA ALVAREZ DTR, * Verbal permission to speak to the caregivers and representatives has been obtained from the patient. N/A * Community resources currently utilized None * Please name any agencies selected above. NONE * Additional services required to return to the preadmission environment? No * Can the patient safely return to the preadmission environment? Yes * Has this patient been hospitalized within the prior 30 days at any hospital? No Coverage Notice Reviewer: [id number] Bayron Osman Notice Issued Date-Time: 10/16/2018 17:00 Notice Type: Patient Choice Letter Notice Delivered To: Patient Relationship to Patient: Grain Blender Name: Delivery Method: HAND - Hand Delivered Adrianne Days: Prior Verbal Notification: Recipient Understood Notice: Yes Recipient Signature: Yes Med Rec Note Co-signed by Attending: Coverage Notice Comment: JESI JERROD Reviewer: [id number] Bayron Osman Notice Issued Date-Time: 10/17/2018 10:25 Notice Type: IM Discharge Notice Notice Delivered To: Patient Relationship to Patient: Grain Blender Name: Delivery Method: HAND - Hand Delivered Adrianne Days: Prior Verbal Notification: Recipient Understood Notice: Yes Recipient Signature: Yes Med Rec Note Co-signed by Attending: Coverage Notice Comment: Last DP export: 10/17/18 10:02 a Patient Name: DOUGLAS HILLS Page [id number] at 1111 All edits/amendments must be made on the electronic document DICTATION DATE: 10/17/18 1111 REPORT ANALYST: CLEMENT 10/17/18 1111 RPT#: [id number] DC DATE: STATUS: ADM IN [facility] [address] [place] [address] END OF REPORT
--- NOTE | 2018-10-17 11:19 | MORECARE ---
CASE MANAGEMENT DISCHARGE SUMMARY PATIENT: DOUGLAS HILLS UNIT: [id number] ADM DATE: 10/15/18 AGE: 53 : 63 SEX: F ROOM/BED: D.2133 AUTHOR: FROILAN,DOC PHYSICIAN: REFERRING PHYSICIAN: CHARLIE HARO MD DATE OF SERVICE: 10/17/18 Discharge Plan Patient Name: DOUGLAS IHLLS Facility: [facility]:[place] : 1965 Planned Disposition: Nursing Facility [facility] Cert Anticipated Discharge Date: 10/17/18 Discharge Date: Expected LOS: 2 Initial Reviewer: [id number] Initial Review Date: 10/16/2018 Generated: 10/17/18 12:18 pm Comments DCP- Discharge Planning Updated by [id number]: Davin Osman on 10/17/18 10:[address] Patient Name: DOUGLAS HILLS Encounter No: [id number] : 1965 Primary Insurance: [facility] MEDICARE SOLUTIONS Anticipated DC Date: 10-17-2018 Planned Disposition: Nursing Facility [facility] Cert External Planned Provider: [facility], LONG TERM CARE MEDICAID BED DCP follow-up note: CM RECEIVED DISCHARGE ORDER, SPOKE TO PT IN ROOM, DISCUSSED DISCHARGE PLAN. PT IN AGREEMENT WITH DISCHARGE BACK TO INTERMEDIATE CARE AT THE [facility]. CM SPOKE TO LINE CONSTRUCTION ENGINEER NURSE, PT MENTIONED TO HER THAT PT NEEDS NEW TRILOGY AT FACILITY. CM CALLED THE [facility], , SPOKE TO HARITHA WHO INFORMED CM THAT PT WILL RETURN TO INTERMEDIATE CARE BED AT THE [facility], THEY WILL TRANSPORT TODAY. PT MISSED HER OUTPATIENT APPOINTMENT WITH DR. ANGELES WHO WILL NOT PROVIDE NEW ORDERS FOR TRILOGY UNTIL HE SEE'S HER OUTPATIENT. THE [facility] NEEDS NEW ORDER FOR TRILOGY AND SETTINGS PT HAS NOT BEEN USING HER HOME TRILOGY THAT PT BROUGHT WITH HER UPON ADMISSION TO [facility], IT DOES NOT HAVE NEEDED HOSES. CM PAGED DR. HEREDIA AND NOTIFIED LINE CONSTRUCTION ENGINEER NURSE. FOR DISCHARGE TO THE [facility], FACILITY NEEDS NEW TRILOGY ORDERS IF DR. HEREDIA WANTS PT TO HAVE THE MACHINE. FAX DISCHARGE INFORMATION AND ANY NEW ORDERS TO THE [facility], . NURSE REPORT TO BE CALLED TO THE [facility] AT [phone]. THE [facility] TO PROVIDE VAN TRANSPORTATION. IMPORTANT MESSAGE FROM MEDICARE PROVIDED AND EXPLAINED TO PT. Davin Osman, CASE MANAGEMENT DCP- Discharge Planning Updated by [id number]: Davin Osman on 10/16/18 4:[address] Patient Name: DOUGLAS HILLS Admission Status: ER Accout number: [id number] Admission Date: 10-15-2018 : 1965 Admission Diagnosis: Attending: CHARLIE HARO Current LOS: 1 Anticipated DC Date: 10-16-2018 Planned Disposition: Nursing Facility [facility] Primary Insurance: [facility] MEDICARE SOLUTIONS PLANNED EXTERNAL PROVIDER: [facility], INTERMEDIATE CARE MEDICAID BED Discharge Planning Comments: CM MET WITH PT IN ROOM TO DISCUSS DISCHARGE PLANNING AND NEEDS. PT REPORTS LIVING AT THE [facility] IN INTERMEDIATE CARE. PT HAS ALL MEDICAL EQUIPMENT PROVIDED BY FACILITY, PT HAS TRILOGY MACHINE. PT DENIES DISCHARGE NEEDS, REPORTS THE [facility] WILL PICK HER UP FOR DISCHARGE HOME TO THE [facility]. CM GAVE MARKETING COORDINATORCHCF FACILITY LISTING OF PROVIDERS, PT SIGNED CHOICE FOR THE [facility]. CM TO FOLLOW UP WITH BERENICE OF THE [facility] TO CLARIFY IF PT WILL RETURN TO SUPER[employer] CARE MEDICAID BED OR SKILLED MEDICARE BED AT HOSPITAL DISCHARGE. FOR DISCHARGE, FAX DISCHARGE INFORMATION TO THE [facility], , NURSE REPORT TO BE CALLED TO THE [facility] AT [phone]. PT TO TRANSPORT VIA AMBULANCE IF NOT ABLE TO SAFELY MAINTAIN ERECT SITTING POSITION. Benchroom Shop Optician: Davin Osman DCPIA - Discharge Planning Initial Assessment Updated by [id number]: Davin Osman on 10/16/18 5:11 pm * Is the patient Alert and Oriented? Yes * How many steps to enter\exit or inside your home? NONE * PCP DR. HECK * [facility] * Preadmission Environment [facility] * Facility Name [facility] * ADLs Partial Dependent * Partial ADLs (Assistance needed) Ambulation Bathing Medication Management Transfers * Equipment Other * Other Equipment TRILOGY ALL MEDICAL EQUIPMENT PROVIDED BY FACILITY * List name and contact numbers for known caregivers / representatives who currently or will assist patient after discharge: ALMA ALVAREZ DTR, * Verbal permission to speak to the caregivers and representatives has been obtained from the patient. N/A * Community resources currently utilized None * Please name any agencies selected above. NONE * Additional services required to return to the preadmission environment? No * Can the patient safely return to the preadmission environment? Yes * Has this patient been hospitalized within the prior 30 days at any hospital? No External Providers External Provider: [facility] Next Contact Date: 10/17/2018 Service Request Date: Service Type: Resolution: Reviewer: Comments: Coverage Notice Reviewer: [id number] Bayron Osman Notice Issued Date-Time: 10/16/2018 17:00 Notice Type: Patient Choice Letter Notice Delivered To: Patient Relationship to Patient: Sweatband Cutting Machine Operator Name: Delivery Method: HAND - Hand Delivered Adrianne Days: Prior Verbal Notification: Recipient Understood Notice: Yes Recipient Signature: Yes Med Rec Note Co-signed by Attending: Coverage Notice Comment: JESI JERROD Reviewer: [id number] Osman Notice Issued Date-Time: 10/17/2018 10:25 Notice Type: IM Discharge Notice Notice Delivered To: Patient Relationship to Patient: Sweatband Cutting Machine Operator Name: Delivery Method: HAND - Hand Delivered Adrianne Days: Prior Verbal Notification: Recipient Understood Notice: Yes Recipient Signature: Yes Med Rec Note Co-signed by Attending: Coverage Notice Comment: Last DP export: 10/17/18 10:11 a Patient Name: DOUGLAS HILLS Page 86934 at 1119 All edits/amendments must be made on the electronic document DICTATION DATE: 10/17/181117 POWER SEWING MACHINE OPERATOR: CLEMENT 10/17/181117 RPT#: [id number] DC DATE: STATUS: ADM IN [facility] [address] [place] [address] END OF REPORT
[2018-10-17 12:04] VITALS: BP 123/41
--- NOTE | 2018-10-17 12:04 | NUR ---
DR. HEREDIA STATED PT CAN NOT GO HOME HE WOULD LIKE PT TO USE HER OWN MACHINE AND MAINTAIN GOOD NUMBERS BEFORE SHE CAN DIACHARGE. NO OTHER NEEDS AT THIS TIME CALL LIGHT WITHIN REACH.
--- NOTE | 2018-10-17 13:42 | NUR ---
Nutrition follow-up: Discharge now on hold Diet: ADA consistent CHO PO intake ~50% of meals Labs reviewed Wt: 330# Pt usually with good po intake RDN following.
--- NOTE | 2018-10-17 14:12 | NUR ---
I have reviewed this patient and I concur with the Shift Assessment completed by the Licensed Practical Nurse today this shift.
[2018-10-17 16:12] VITALS: BP 118/45
[2018-10-17] MEDS ORDERED: HYDROCODON-ACE1 EA10 PO (16:53)
--- NOTE | 2018-10-17 18:55 | NUR ---
PT LAYING IN BED, PLAYING ON HER PHONE. PT STATES NO NEEDS AT THIS TIME CALL LIGHT WITHIN REACH.
--- NOTE | 2018-10-17 19:05 | NUR ---
AWAKE AND ALERT BED IS LOW AND CALL LIGHT IN REACH LUNGS CLEAR BUT DEMENISHED GENERALIZED EDEMA IN ALL EXTREMITIES AND PT IS VERY OBESE. BOWEL SOUNDS X4 RT HAND SALINE LOC WITH NO EDEMA
[2018-10-17 20:00] VITALS: BP 124/68
--- NOTE | 2018-10-17 22:11 | NUR ---
RESTING QUIETLY WITH BIPAP IN PLACE TOLERATING WELL
--- NOTE | 2018-10-18 03:27 | NUR ---
I have reviewed this patient and I concur with the Shift Assessment completed by the Licensed Practical Nurse today this shift.
[2018-10-18 04:00] VITALS: BP 129/73
[2018-10-18 05:56] LABS: BASOPHILS 0.1 % (0-2); EOSINOPHILS 0.5 % (0-7); HEMATOCRIT 33.6 % (36.0-48.0); HEMOGLOBIN 9.5 g/dL (12-16); IMMATURE GRANULOCYTES 0.6 % (0-5); LYMPHOCYTES 15.3 % (15-50); MCH 22.5 pg (26.0-34.0); MCHC 28.3 g/dL (31.0-37.0); MCV 79.4 fL (80.0-100.0); MEAN PLATELET VOLUME 8.8 fL (7.4-10.4); MONOCYTES 14.4 % (2-11); NEUTROPHILS 69.1 % (40-80); PLATELET COUNT 324 10x3/uL (130-400); RBC 4.23 10x6/uL (4.00-5.40); RDW 16.8 % (11.5-14.5); WBC 15.4 10x3/uL (4.8-10.8)
[2018-10-18 06:06] LABS: ANION GAP 4.6 mmol/L (8-16); CALCIUM 9.2 mg/dL (8.5-10.1); POTASSIUM - SERUM 3.9 mmol/L (3.5-5.1)
[2018-10-18 06:24] LABS: CARBON DIOXIDE 40.3 mmol/L (21.0-32.0)
--- NOTE | 2018-10-18 08:06 | NUR ---
ROUNDING DONE WITH PATIENT ON 5L PER HIGH FLOW NASAL CANNULA. ON HEEART MONITOR SHOWING SR, HR 83. BIPAP IN ROOM. OBESE. RIGHT HAND PIV SEEN WITH SALINE LOCK. HESS CATH PATENT WITH YELLOW URINE. FOR POSSIBLE DISCHARGE TODAY. ON EP, K+ IS 3.9.
[2018-10-18 08:25] VITALS: BP 121/51
--- NOTE | 2018-10-18 12:02 | MORECARE ---
CASE MANAGEMENT DISCHARGE SUMMARY PATIENT: DOUGLAS HILLS UNIT: [id number] ADM DATE: 10/15/18 AGE: 53 : 63 SEX: F ROOM/BED: D.2133 AUTHOR: FROILAN,DOC PHYSICIAN: REFERRING PHYSICIAN: CHARLIE HARO MD DATE OF SERVICE: 10/18/18 Discharge Plan Patient Name: DOUGLAS HILLS Facility: [facility] : 1965 Planned Disposition: Nursing Facility [facility] Cert Anticipated Discharge Date: 10/17/18 Discharge Date: Expected LOS: 2 Initial Reviewer: [id number] Initial Review Date: 10/16/2018 Generated: 10/18/18 1:01 pm Comments DCP- Discharge Planning Updated by [id number]: Davin Osman on 10/18/18 10:[address] Patient Name: DOUGLAS HILLS Encounter No: [id number] : 1965 Primary Insurance: [employer] MEDICARE SOLUTIONS Anticipated DC Date: 10-17-2018 Planned Disposition: Nursing Facility [facility] Cert External Planned Provider: [facility], LONG TERM CARE MEDICAID BED DCP follow-up note: CM SPOKE TO DR. HEREDIA WHO INFORMED CM THAT PT CAN GO BACK TO THE [facility] TODAY IF SHE CAN HAVE BIPAP OR TRILOGY THERE. BIPAP SETTINGS ARE 20 X 10 AT 40%. CM NOTIFIED [facility] OF THE [facility] AT [phone]. CM FAXED UPDATE AND DISCHARGE INFORMATION TO THE [facility] VIA [place] AT [phone]. CM SPOKE TO PT IN ROOM, PT STILL WILLING FOR DISCHARGE TO [facility] AT THE [facility] TODAY. CM WAITING TO DETERMINE IF THE [facility] CAN PROVIDE BIPAP OR TRILOGY TODAY FOR PT'S RETURN. NURSE REPORT TO BE CALLED TO THE [facility] AT [phone]. THE [facility] TO PROVIDE VAN TRANSPORTATION. CARMNE Fernandez DCP- Discharge Planning Updated by [id number]: Davin Osman on 10/17/18 10:[address] Patient Name: DOUGLAS HILLS Encounter No: [id number] : 1965 Primary Insurance: [employer] MEDICARE SOLUTIONS Anticipated DC Date: 10-17-2018 Planned Disposition: Nursing Facility [facility] Cert External Planned Provider: [facility], LONG TERM CARE MEDICAID BED DCP follow-up note: CM RECEIVED DISCHARGE ORDER, SPOKE TO PT IN ROOM, DISCUSSED DISCHARGE PLAN. PT IN AGREEMENT WITH DISCHARGE BACK TO [facility] AT THE [facility]. CM SPOKE TO COLOR SEPARATION PHOTOGRAPHER NURSE, PT MENTIONED TO HER THAT PT NEEDS NEW TRILOGY AT FACILITY. CM CALLED THE [facility], , SPOKE TO HARITHA WHO INFORMED CM THAT PT WILL RETURN TO [facility] BED AT THE [facility], THEY WILL TRANSPORT TODAY. PT MISSED HER OUTPATIENT APPOINTMENT WITH DR. ANGELES WHO WILL NOT PROVIDE NEW ORDERS FOR TRILOGY UNTIL HE SEE'S HER OUTPATIENT. THE [facility] NEEDS NEW ORDER FOR TRILOGY AND SETTINGS PT HAS NOT BEEN USING HER HOME TRILOGY THAT PT BROUGHT WITH HER [facility] ADMISSION TO [facility], IT DOES NOT HAVE NEEDED HOSES. CM PAGED DR. HEREDIA AND NOTIFIED COLOR SEPARATION PHOTOGRAPHER NURSE. FOR DISCHARGE TO THE [facility], FACILITY NEEDS NEW TRILOGY ORDERS IF DR. HEREDIA WANTS PT TO HAVE THE MACHINE. FAX DISCHARGE INFORMATION AND ANY NEW ORDERS TO THE [facility], . NURSE REPORT TO BE CALLED TO THE [facility] AT [phone]. THE [facility] TO PROVIDE VAN TRANSPORTATION. IMPORTANT MESSAGE FROM MEDICARE PROVIDED AND EXPLAINED TO PT. Davin Osman, CASE MANAGEMENT DCP- Discharge Planning Updated by [id number]: Davin Osman on 10/16/18 4:[address] Patient Name: DOUGLAS HILLS Admission Status: ER Accout number: [id number] Admission Date: 10-15-2018 : 1965 Admission Diagnosis: Attending: CHARLIE HARO Current LOS: 1 Anticipated DC Date: 10-16-2018 Planned Disposition: Nursing Facility [facility] Cert Primary Insurance: [facility] MEDICARE SOLUTIONS PLANNED EXTERNAL PROVIDER: [facility], LONG TERM CARE MEDICAID BED Discharge Planning Comments: CM MET WITH PT IN ROOM TO DISCUSS DISCHARGE PLANNING AND NEEDS. PT REPORTS LIVING AT THE [facility] IN [facility]. PT HAS ALL MEDICAL EQUIPMENT PROVIDED BY FACILITY, PT HAS TRILOGY MACHINE. PT DENIES DISCHARGE NEEDS, REPORTS THE [facility] WILL PICK HER UP FOR DISCHARGE HOME TO THE [facility]. CM GAVE [facility] LISTING OF PROVIDERS, PT SIGNED CHOICE FOR THE [facility]. CM TO FOLLOW UP WITH BERENICE OF THE [facility] TO CLARIFY IF PT WILL RETURN TO [facility] MEDICAID BED OR SKILLED MEDICARE BED AT HOSPITAL DISCHARGE. FOR DISCHARGE, FAX DISCHARGE INFORMATION TO THE [facility], , NURSE REPORT TO BE CALLED TO THE [facility] AT [phone]. PT TO TRANSPORT VIA AMBULANCE IF NOT ABLE TO SAFELY MAINTAIN ERECT SITTING POSITION. Booking Prizer: Davin Osman DCPIA - Discharge Planning Initial Assessment Updated by [id number]: Davin Osman on 10/16/18 5:11 pm * Is the patient Alert and Oriented? Yes * How many steps to enter\exit or inside your home? NONE * PCP DR. HECK * [facility] * Preadmission Environment [facility] * Facility Name [facility] * ADLs Partial Dependent * Partial ADLs (Assistance needed) Ambulation Bathing Medication Management Transfers * Equipment Other * Other Equipment TRILOGY ALL MEDICAL EQUIPMENT PROVIDED BY FACILITY * List name and contact numbers for known caregivers / representatives who currently or will assist patient after discharge: ALMA ALVAREZ, [place], * Verbal permission to speak to the caregivers and representatives has been obtained from the patient. N/A * Community resources currently utilized None * Please name any agencies selected above. NONE * Additional services required to return to the preadmission environment? No * Can the patient safely return to the preadmission environment? Yes * Has this patient been hospitalized within the prior 30 days at any hospital? No Coverage Notice Reviewer: [id number] Bayron Osman Notice Issued Date-Time: 10/16/2018 17:00 Notice Type: Patient Choice Letter Notice Delivered To: Patient Relationship to Patient: Full Time Babysitter Name: Delivery Method: HAND - Hand Delivered Adrianne Days: Prior Verbal Notification: Recipient Understood Notice: Yes Recipient Signature: Yes Med Rec Note Co-signed by Attending: Coverage Notice Comment: [facility] Reviewer: [id number] Bayron Osman Notice Issued Date-Time: 10/17/2018 10:25 Notice Type: IM Discharge Notice Notice Delivered To: Patient Relationship to Patient: Full Time Babysitter Name: Delivery Method: HAND - Hand Delivered Adrianne Days: Prior Verbal Notification: Recipient Understood Notice: Yes Recipient Signature: Yes Med Rec Note Co-signed by Attending: Coverage Notice Comment: Last DP export: 10/17/18 10:19 a Patient Name: DOUGLAS HILLS Page 00696 at 1202 All edits/amendments must be made on the electronic document DICTATION DATE: 10/18/181200 LAN/WAN ENGINEER: CLEMENT 10/18/181200 RPT#: [id number] DC DATE: STATUS: ADM IN [facility] [address] [place] [address] END OF REPORT
[2018-10-18 12:08] VITALS: BP 119/55
--- NOTE | 2018-10-18 14:49 | NUR ---
DENIES NEEDS AT THIS TIME. STILL AWAITING TO SEE ABOUT POSSIBLE DISCHARGE.
[2018-10-18 16:06] VITALS: BP 126/62
--- NOTE | 2018-10-18 16:44 | NUR ---
HESS CATH REMOVED PAST BULB DEFLATION.
--- NOTE | 2018-10-18 18:20 | NUR ---
CALLED [facility] FOR TRANSPORT. THEY ARE GOING TO HAVE TO CALL [facility] FOR APPROVAL PATIENT IS NOT TRUELY BED CONFINED. THEY ARE TO CALL ME BACK.
--- NOTE | 2018-10-18 18:35 | MORECARE ---
CASE MANAGEMENT DISCHARGE SUMMARY PATIENT: DOUGLAS HILLS UNIT: [id number] ADM DATE: 10/15/18 AGE: 53 : 63 SEX: F ROOM/BED: D.2133 AUTHOR: FROILAN,DOC PHYSICIAN: REFERRING PHYSICIAN: CHARLIE HARO MD DATE OF SERVICE: 10/18/18 Discharge Plan Patient Name: DOUGLAS HILLS Facility: [facility]:[place] : 1965 Planned Disposition: Nursing Facility [facility] Cert Anticipated Discharge Date: 10/17/18 Discharge Date: Expected LOS: 2 Initial Reviewer: [id number] Initial Review Date: 10/16/2018 Generated: 10/18/18 7:34 pm Comments DCP- Discharge Planning Updated by [id number]: Davin Osman on 10/18/18 5:[address] Patient Name: DOUGLAS HILLS Encounter No: [id number] : 1965 Primary Insurance: [facility] MEDICARE SOLUTIONS Anticipated DC Date: 10-17-2018 Planned Disposition: Nursing Facility [facility] Cert External Planned Provider: [facility], LONG TERM CARE MEDICAID BED DCP follow-up note: CM SPOKE TO DR. HEREDIA WHO INFORMED THAT PT CAN GO BACK TO THE [facility] TODAY IF SHE CAN HAVE BIPAP OR TRILOGY THERE. BIPAP SETTINGS ARE 20 X 10 AT 40%. CM NOTIFIED [facility] AT [phone]. CM FAXED UPDATE AND DISCHARGE INFORMATION TO THE [facility] VIA [facility] AT [phone]. CM SPOKE TO PT IN ROOM, PT STILL WILLING FOR DISCHARGE TO [facility] AT THE [facility] TODAY. CM WAITING TO DETERMINE IF THE [facility] CAN PROVIDE BIPAP OR TRILOGY TODAY FOR PT'S RETURN. NURSE REPORT TO BE CALLED TO THE [facility] AT [phone]. THE [facility] TO PROVIDE VAN TRANSPORTATION. Davin Osman, CASE MANAGEMENT Appended by Davin Osman on 10/18/2018 18:32 CDT: CM RECEIVED NOTICE FROM [facility], , THAT THEY HAVE THE BIPAP IN FACILITY. RIPPER OPERATOR NURSE NOTIFIED. [facility] CALLED CM AND INFORMED CM THAT VAN IS NOT AVAILABLE AND PLEASE HAVE THE NURSE SEND PT VIA AMBULANCE, THE [facility] HAS CONTRACT WITH [employer] FOR THE SERVICE AND WILL PAY. NURSE REPORT TO BE CALLED TO THE [facility] AT [phone]. PT TO TRANSPORT VIA AMBULANCE PER [facility], CLINICAL LIAISON FOR THE [facility] CONTRACT TO COVER COSTS. BEDSIDE NURSE NOTIFIED. CARMEN Fernandez DCP- Discharge Planning Updated by [id number]: Davin Osman on 10/17/18 10:[address] Patient Name: DOUGLAS HILLS Encounter No: [id number] : 1965 Primary Insurance: [facility] MEDICARE SOLUTIONS Anticipated DC Date: 10-17-2018 Planned Disposition: Nursing Facility [facility] External Planned Provider: [facility], LONG TERM CARE MEDICAID BED DCP follow-up note: CM RECEIVED DISCHARGE ORDER, SPOKE TO PT IN ROOM, DISCUSSED DISCHARGE PLAN. PT IN AGREEMENT WITH DISCHARGE BACK TO [facility] AT [facility]. CM SPOKE TO RIPPER OPERATOR NURSE, PT MENTIONED TO HER THAT PT NEEDS NEW TRILOGY AT FACILITY. CM CALLED THE [facility], , SPOKE TO HARITHA WHO INFORMED CM THAT PT WILL RETURN TO [facility] BED AT THE [facility], THEY WILL TRANSPORT TODAY. PT MISSED HER OUTPATIENT APPOINTMENT WITH DR. ANGELES WHO WILL NOT PROVIDE NEW ORDERS FOR TRILOGY UNTIL HE SEE'S HER OUTPATIENT. THE [facility] NEEDS NEW ORDER FOR TRILOGY AND SETTINGS PT HAS NOT BEEN USING HER HOME TRILOGY THAT PT BROUGHT WITH HER UPON ADMISSION TO [facility], IT DOES NOT HAVE NEEDED HOSES. CM PAGED DR. HEREDIA AND NOTIFIED RIPPER OPERATOR NURSE. FOR DISCHARGE TO THE [facility], FACILITY NEEDS NEW TRILOGY ORDERS IF DR. HEREDIA WANTS PT TO HAVE THE MACHINE. FAX DISCHARGE INFORMATION AND ANY NEW ORDERS TO THE [facility], . NURSE REPORT TO BE CALLED TO THE [facility] AT [phone]. THE [facility] TO PROVIDE VAN TRANSPORTATION. IMPORTANT MESSAGE FROM MEDICARE PROVIDED AND EXPLAINED TO PT. CARMEN Fernandez DCP- Discharge Planning Updated by [id number]: Davin Osman on 10/16/18 4:[address] Patient Name: DOUGLAS HILLS Admission Status: ER Accout number: [id number] Admission Date: 10-15-2018 : 1965 Admission Diagnosis: Attending: CHARLIE HARO Current LOS: 1 Anticipated DC Date: 10-16-2018 Planned Disposition: Nursing Facility [facility] Cert Primary Insurance: [facility] MEDICARE SOLUTIONS PLANNED EXTERNAL PROVIDER: [facility], LONG TERM CARE MEDICAID BED Discharge Planning Comments: CM MET WITH PT IN ROOM TO DISCUSS DISCHARGE PLANNING AND NEEDS. PT REPORTS LIVING AT THE [facility] IN [facility]. PT HAS ALL MEDICAL EQUIPMENT PROVIDED BY FACILITY, PT HAS TRILOGY MACHINE. PT DENIES DISCHARGE NEEDS, REPORTS THE [facility] WILL PICK HER UP FOR DISCHARGE HOME TO THE [facility]. CM [facility]AVE [facility] LISTING OF PROVIDERS, PT SIGNED CHOICE FOR THE [facility]. CM TO FOLLOW UP WITH BERENICE OF THE [facility] TO CLARIFY IF PT WILL RETURN TO [facility] MEDICAID BED OR SKILLED MEDICARE BED AT HOSPITAL DISCHARGE. FOR DISCHARGE, FAX DISCHARGE INFORMATION TO THE [facility], , NURSE REPORT TO BE CALLED TO THE [facility] AT [phone]. PT TO TRANSPORT VIA AMBULANCE IF NOT ABLE TO SAFELY MAINTAIN ERECT SITTING POSITION. Wood Patternmaker: Davin Osman DCPIA - Discharge Planning Initial Assessment Updated by [id number]: Davin Osman on 10/16/18 5:11 pm * Is the patient Alert and Oriented? Yes * How many steps to enter\exit or inside your home? NONE * PCP DR. HECK * Pharmacy [facility] * Preadmission Environment [facility] * Facility Name [facility] * ADLs Partial Dependent * Partial ADLs (Assistance needed) Ambulation Bathing Medication Management Transfers * Equipment Other * Other Equipment TRILOGY ALL MEDICAL EQUIPMENT PROVIDED BY FACILITY * List name and contact numbers for known caregivers / representatives who currently or will assist patient after discharge: ALMA ALVAREZ DTR, * Verbal permission to speak to the caregivers and representatives has been obtained from the patient. N/A * Community resources currently utilized None * Please name any agencies selected above. NONE * Additional services required to return to the preadmission environment? No * Can the patient safely return to the preadmission environment? Yes * Has this patient been hospitalized within the prior 30 days at any hospital? No Coverage Notice Reviewer: [id number] Bayron Osman Notice Issued Date-Time: 10/16/2018 17:00 Notice Type: Patient Choice Letter Notice Delivered To: Patient Relationship to Patient: Geophysicist Name: Delivery Method: HAND - Hand Delivered Adrianne Days: Prior Verbal Notification: Recipient Understood Notice: Yes Recipient Signature: Yes Med Rec Note Co-signed by Attending: Coverage Notice Comment: [facility] Reviewer: [id number] Bayron Osman Notice Issued Date-Time: 10/17/2018 10:25 Notice Type: IM Discharge Notice Notice Delivered To: Patient Relationship to Patient: Geophysicist Name: Delivery Method: HAND - Hand Delivered Adrianne Days: Prior Verbal Notification: Recipient Understood Notice: Yes Recipient Signature: Yes Med Rec Note Co-signed by Attending: Coverage Notice Comment: Last DP export: 10/18/18 11:02 a Patient Name: DOUGLAS HILLS Page 99155 at 1835 All edits/amendments must be made on the electronic document DICTATION DATE: 10/18/181833 CONSULTANT IN ERGONOMICS AND SAFETY: CLEMENT 10/18/181833 RPT#: [id number] DC DATE: STATUS: ADM IN [facility] [address] [place] [address] END OF REPORT
--- NOTE | 2018-10-18 18:36 | NUR ---
HAVE NOT BEEN ABLE TO GET URINE OR STOOL PATIENT MISSES THE COLLECTION HAT OR IT GETS MIXED TOGETHER.
--- NOTE | 2018-10-18 19:40 | NUR ---
EVENING ROUNDS COMPLETED. REPORT RECEIVED. PT SITTING UP IN BED WITH EYES OPEN, RR EVEN AND UNLABORED. NO S/S OF DISTRESS NOTED. OXYGEN AT 3 LITERS BY NASAL CANNULA. BED IN LOW POSITION. CALL LIGHT IN REACH. WILL CTM.
[2018-10-18 19:54] VITALS: BP 113/48
--- NOTE | 2018-10-18 20:14 | NUR ---
LEFT FLOOR BY STRETCHER, DISCHARGE INSTRUCTIONS EXPLAINED TO PT AND LEFT FLOOR WITH LIFENET TEAM. LEFT HAND PIV REMOVED AND GAUZE BANDAGE APPLIED. NO S/S OF DISTRESS.
== END 2018-10-18 20:15 | DRG 189 ==
LOC: D.ER 19:23 → D.M2 22:10
PROVIDERS: Family Medicine; ADMIT Internal Medicine Nephrology; ATTEND Internal Medicine Nephrology
DX: J96.22 Acute and chronic respiratory failure with hypercapnia (principal); J44.1 Chronic obstructive pulmonary disease with (acute) exacerbation; N17.9 Acute kidney failure, unspecified; I50.32 Chronic diastolic (congestive) heart failure; J96.21 Acute and chronic respiratory failure with hypoxia; T40.695A Adverse effect of other narcotics, initial encounter; G47.33 Obstructive sleep apnea (adult) (pediatric); D50.9 Iron deficiency anemia, unspecified; E87.6 Hypokalemia; E78.5 Hyperlipidemia, unspecified; E11.9 Type 2 diabetes mellitus without complications; F41.9 Anxiety disorder, unspecified; I11.0 Hypertensive heart disease with heart failure

== ENCOUNTER 2018-11-11 15:39 | Inpatient (IN) | payer MEDICARE, MEDICAID ==
[~2018-11-11] VITALS: Ht 152.4 cm; Wt 158.3 kg
[~2018-11-11 15:39] MED LIST changes: +HYDROCODON-ACE1 EA10 PO
[2018-11-11 16:46] LABS: HEMATOCRIT 29.1 % (36.0-48.0); HEMOGLOBIN 8.2 g/dL (12-16); MCH 21.9 pg (26.0-34.0); MCHC 28.2 g/dL (31.0-37.0); MCV 77.8 fL (80.0-100.0); MEAN PLATELET VOLUME 8.6 fL (7.4-10.4); PLATELET COUNT 346 10x3/uL (130-400); RBC 3.74 10x6/uL (4.00-5.40); RDW 16.9 % (11.5-14.5); WBC 13.7 10x3/uL (4.8-10.8)
[2018-11-11 16:52] LABS: ALBUMIN 2.9 g/dL (3.4-5.0); ALKALINE PHOSPHATASE 80 U/L (46-116); ALT (SGPT) 15 U/L (10-68); BILIRUBIN - TOTAL 0.29 mg/dL (0.2-1.3); CALCIUM 8.9 mg/dL (8.5-10.1); CHLORIDE - SERUM 91 mmol/L (98-107); CKMB 0.7 U/L (0.0-3.6); CREATINE KINASE 31 UL (21-215); CREATININE - SERUM 1.1 mg/dL (0.6-1.3); MAGNESIUM - SERUM 1.4 mg/dL (1.8-2.4); PROTEIN - SERUM 7.5 g/dL (6.4-8.2); SODIUM 139 mmol/L (136-145); UREA NITROGEN 36 mg/dL (7-18); eGFR NON AFRICAN AMERICAN 55 mL/min (90-120)
[2018-11-11 16:54] LABS: CALC OSMOLALITY 286 mosm/kg (275-300); GLUCOSE 116 mg/dL (74-106); TROPONIN-I < 0.017 ng/mL (0.000-0.060)
[2018-11-11 16:56] LABS: CARBON DIOXIDE 49.3 mmol/L (21.0-32.0); POTASSIUM - SERUM 2.7 mmol/L (3.5-5.1)
[2018-11-11 18:00] LABS: EOSINOPHILS 1 % (0-7); LYMPHOCYTES 19 % (15-50); NEUTROPHILS 80 % (40-80); PLATELET ESTIMATE NORMAL
--- NOTE | 2018-11-11 19:00 | NUR ---
BEDSIDE PT REPORT HANDED OFF FROM BRANDON Carbajal RN. PT STABLE AT THIS TIME, WORKING ON DC.
[2018-11-11 19:31] VITALS: BP 102/75
--- NOTE | 2018-11-11 21:04 | NUR ---
SPOKE WITH DR. HARO IN REGARDS TO RESTARTING PATIENT'S HOME [facility].
[2018-11-11 21:30] VITALS: BP 110/38
[2018-11-11 23:45] VITALS: BP 123/65
--- NOTE | 2018-11-12 00:31 | NUR ---
ADDED PATIENT TO TELE WAIT LIST
[2018-11-12 04:30] VITALS: BP 126/73
[2018-11-12 05:14] VITALS: BP 110/38; BMI 68.3
--- NOTE | 2018-11-12 07:25 | NUR ---
PT ON BIPAP MACHINE AT THIS TIME CL IN REACH NO SIGNS OF DISTRESS NOTED
[2018-11-12 07:29] LABS: BASOPHILS 0.1 % (0-2); EOSINOPHILS 0.1 % (0-7); HEMATOCRIT 29.8 % (36.0-48.0); HEMOGLOBIN 8.4 g/dL (12-16); IMMATURE GRANULOCYTES 1.3 % (0-5); LYMPHOCYTES 6.1 % (15-50); MCH 21.9 pg (26.0-34.0); MCHC 28.2 g/dL (31.0-37.0); MCV 77.6 fL (80.0-100.0); MEAN PLATELET VOLUME 8.4 fL (7.4-10.4); MONOCYTES 1.1 % (2-11); NEUTROPHILS 91.3 % (40-80); PLATELET COUNT 336 10x3/uL (130-400); RBC 3.84 10x6/uL (4.00-5.40); RDW 16.6 % (11.5-14.5); WBC 14.6 10x3/uL (4.8-10.8)
[2018-11-12 08:08] LABS: ALBUMIN 2.8 g/dL (3.4-5.0); BILIRUBIN - TOTAL 0.37 mg/dL (0.2-1.3); CALCIUM 8.8 mg/dL (8.5-10.1); CREATININE - SERUM 0.9 mg/dL (0.6-1.3); POTASSIUM - SERUM 3.1 mmol/L (3.5-5.1); PROTEIN - SERUM 7.2 g/dL (6.4-8.2)
[2018-11-12 08:09] LABS: ANION GAP 3.5 mmol/L (8-16); CARBON DIOXIDE 50.6 mmol/L (21.0-32.0)
[2018-11-12 08:25] VITALS: BP 101/38
[2018-11-12 12:00] VITALS: BP 119/55
[2018-11-12 13:21] VITALS: Ht 152.4 cm; Wt 158.3 kg
[2018-11-12 16:00] VITALS: BP 126/62
--- NOTE | 2018-11-12 17:08 | NUR ---
THIS NURSE AGREES WITH THE BUSINESS MANAGEMENT CONSULTANT CHARTING
[2018-11-12 20:00] VITALS: BP 108/51
--- NOTE | 2018-11-12 20:04 | NUR ---
PATIENT RESTING IN BED NO S/S OF DISTRESS WITH BIPAP ON. PATIENT DENIES NEEDS AT THIS TIME. BED IN LOWEST POSITION AND CALL LIGHT WITHIN REACH. ENCOURAGED THE PATIENT TO CALL IF SHE HAS NEEDS. WILL CONTINUE TO MONITOR.
[2018-11-13 00:14] VITALS: BP 122/56
[2018-11-13 04:29] VITALS: BP 117/79
[2018-11-13 09:44] VITALS: BP 114/50
[2018-11-13 13:33] VITALS: BP 109/47
--- NOTE | 2018-11-13 16:31 | MORECARE ---
CASE MANAGEMENT DISCHARGE SUMMARY PATIENT: DOUGLAS HILLS UNIT: [id number] ADM DATE: 11/11/18 AGE: 53 : 63 SEX: F ROOM/BED: D.1207 AUTHOR: AMELIA MCGOVERN PHYSICIAN: REFERRING PHYSICIAN: CHARLIE HARO MD DATE OF SERVICE: 11/13/18 Discharge Plan Patient Name: DOUGLAS HILLS Facility: [facility]:[place] : 1965 Planned Disposition: [facility] Facility w Plan Readm Anticipated Discharge Date: Discharge Date: Expected LOS: Initial Reviewer: CARLENE Initial Review Date: 11/13/2018 Generated: 11/13/18 5:30 pm DCPIA - Discharge Planning Initial Assessment Updated by CARLENE: Luz Delcid on 11/13/18 4:30 pm * Is the patient Alert and Oriented? Yes * How many steps to enter\exit or inside your home? * Pharmacy [facility] * Preadmission Environment [facility] * Facility Name [facility] * Partial ADLs (Assistance needed) Ambulation Bathing Dressing Eating Medication Management Toileting Transfers * Equipment BIPAP * List name and contact numbers for known caregivers / representatives who currently or will assist patient after discharge: MONET ALVAREZ [phone] * Verbal permission to speak to the caregivers and representatives has been obtained from the patient. Yes * Community resources currently utilized Other * Please name any agencies selected above. [facility] * Additional services required to return to the preadmission environment? No * Can the patient safely return to the preadmission environment? Yes * Has this patient been hospitalized within the prior 30 days at any hospital? Yes Patient Name: DOUGLAS HILLS Page 24784 at 1631 All edits/amendments must be made on the electronic document DICTATION DATE: 11/13/18 163 INDUSTRIAL LOCOMOTIVE OPERATOR: CLEMENT 11/13/18 163 RPT#: [id number] DC DATE: STATUS: ADM IN [facility] [address] [place] [address] END OF REPORT
--- NOTE | 2018-11-13 16:39 | MORECARE ---
CASE MANAGEMENT DISCHARGE SUMMARY PATIENT: DOUGLAS HILLS UNIT: [id number] ADM DATE: 11/11/18 AGE: 53 : 63 SEX: F ROOM/BED: D.1207 AUTHOR: FROILAN,DOC PHYSICIAN: REFERRING PHYSICIAN: CHARLIE HARO MD DATE OF SERVICE: 11/13/18 Discharge Plan Patient Name: DOUGLAS HILLS Facility: [facility]:[place] : 1965 Planned Disposition: [facility] Facility w Plan Readm Anticipated Discharge Date: Discharge Date: Expected LOS: Initial Reviewer: [id number] Initial Review Date: 11/13/2018 Generated: 11/13/18 5:39 pm Comments DCP- Discharge Planning Updated by [id number]: Luz Delcid on 11/13/18 3:[address] Patient Name: DOUGLAS HILLS Admission Status: ER Accout number: [id number] Admission Date: 11-11-2018 : 1965 Admission Diagnosis:SHORTNESS OF BREATH Attending: CHARLIE HARO Current LOS: 2 Anticipated DC Date: Planned Disposition: [facility] w Plan Readm Primary Insurance: [facility] MEDICARE SOLUTIONS Discharge Planning Comments: SPOKE TO PT ABOUT DC NEEDS AND PLANS. PT WILL RETURN TO THE [facility]. ADMINISTRATIVE TECH WILL BE ARRANGED AT SC PT STATES HER BYPAP WAS AT [facility]. CM WILL VERIFY THAT IT WAS DAUGHTER IS HER POINT OF CONTACT [phone] Lead Athlete: Luz Delcid DCPIA - Discharge Planning Initial Assessment Updated by [email or web address]: Luz Delcid on 11/13/18 4:33 pm * Is the patient Alert and Oriented? Yes * How many steps to enter\exit or inside your home? * PCP [facility] DR DR. HECK * Pharmacy [facility] * Preadmission Environment [facility] * Facility Name [facility] * Partial ADLs (Assistance needed) Ambulation Bathing Dressing Eating Medication Management Toileting Transfers * Equipment BIPAP * List name and contact numbers for known caregivers / representatives who currently or will assist patient after discharge: MONET ALVAREZ [phone] * Verbal permission to speak to the caregivers and representatives has been obtained from the patient. Yes * Community resources currently utilized Other * Please name any agencies selected above. [facility] * Additional services required to return to the preadmission environment? No * Can the patient safely return to the preadmission environment? Yes * Has this patient been hospitalized within the prior 30 days at any hospital? Yes Last DP export: 11/13/18 3:30 p Patient Name: DOUGLAS HILLS Page 13821 at 1639 All edits/amendments must be made on the electronic document DICTATION DATE: 11/13/181638 SALES ADVISORY MANAGER: CLEMENT 11/13/181638 RPT#: [id number] DC DATE: STATUS: ADM IN [facility] [address] [place] [address] END OF REPORT
--- NOTE | 2018-11-13 16:49 | MORECARE ---
CASE MANAGEMENT DISCHARGE SUMMARY PATIENT: DOUGLAS HILLS UNIT: [id number] ADM DATE: 11/11/18 AGE: 53 : 63 SEX: F ROOM/BED: D.1207 AUTHOR: FROILAN,DOC PHYSICIAN: REFERRING PHYSICIAN: CHARLIE HARO MD DATE OF SERVICE: 11/13/18 Discharge Plan Patient Name: DOUGLAS HILLS Facility: [facility]:[place] : 1965 Planned Disposition: [facility] Facility w Plan Readm Anticipated Discharge Date: Discharge Date: Expected LOS: Initial Reviewer: [email or web address] Initial Review Date: 11/13/2018 Generated: 11/13/18 5:48 pm Comments DCP- Discharge Planning Updated by [email or web address]: Luz Delcid on 11/13/18 3:[address] Patient Name: DOUGLAS HILLS Admission Status: ER Accout number: [id number] Admission Date: 11-11-2018 : 1965 Admission Diagnosis:SHORTNESS OF BREATH Attending: CHARLIE HARO Current LOS: 2 Anticipated DC Date: Planned Disposition: [facility] w Plan Readm Primary Insurance: [facility] MEDICARE SOLUTIONS Discharge Planning Comments: SPOKE TO PT ABOUT DC NEEDS AND PLANS. PT WILL RETURN TO THE [facility]. WAREHOUSE MATERIAL HANDLER [place] BE AR[place]ANGED AT [place] PT STATES HER [place]PAP WAS AT THE [facility]. CM WILL VERIFY THAT IT WAS DAUGHTER IS HER POINT OF CONTACT [phone] Pharmacy Teacher: Luz Delcid DCPIA - Discharge Planning Initial Assessment Updated by [id number]: Luz Delcid on 11/13/18 4:33 pm * Is the patient Alert and Oriented? Yes * How many steps to enter\exit or inside your home? * PCP [facility] [address] DR[address] HECK * Pharmacy [facility] * Preadmission Environment [facility] * Facility Name [facility] * Partial ADLs (Assistance needed) Ambulation Bathing Dressing Eating Medication Management Toileting Transfers * Equipment BIPAP * List name and contact numbers for known caregivers / representatives who currently or will assist patient after discharge: MONET ALVAREZ [phone] * Verbal permission to speak to the caregivers and representatives has been obtained from the patient. Yes * Community resources currently utilized Other * Please name any agencies selected above. [facility] * Additional services required to return to the preadmission environment? No * Can the patient safely return to the preadmission environment? Yes * Has this patient been hospitalized within the prior 30 days at any hospital? Yes Last DP export: 11/13/18 3:30 p Patient Name: DOUGLAS HILLS Page 16370 at 1649 All edits/amendments must be made on the electronic document DICTATION DATE: 11/13/181647 PACKAGING DESIGNER: CLEMENT 11/13/181647 RPT#: [id number] DC DATE: STATUS: ADM IN [facility] [address] [place] [address] END OF REPORT
[2018-11-13 17:44] VITALS: BP 101/43
--- NOTE | 2018-11-13 20:00 | NUR ---
PT LYING IN BED. CALL LIGHT IN REACH. PT DENIES NEEDS OR PAIN AT THIS TIME. BED IN LOW. SIDE RAILS X2. BOWEL ACTIVE X4. RESP EVEN AND UNLABORED. O2 ON 4L. A/O X4. TAKES MEDS WHOLE. IV NOTED TO RIGHT UPPER ARM. WILL CONTINUE TO MONITOR.
[2018-11-13 20:07] VITALS: BP 118/62
--- NOTE | 2018-11-13 21:35 | NUR ---
PT IV IN RIGHT UPPER ARM WAS HALF WAY OUT OF VEIN AND BENT. THIS NURSE REMOVED IV. IV CATH INTACT AND BENT 90 DEGREES. MINIMAL BLEEDING WCTM
[2018-11-14 00:02] VITALS: BP 120/65
--- NOTE | 2018-11-14 00:10 | NUR ---
PT RESTING QUIETLY. CALL LIGHT IN REACH. NO SIGNS OF DISTRESS OR PAIN. WCTM
--- NOTE | 2018-11-14 03:02 | NUR ---
I have reviewed this patient and I concur with the Shift Assessment completed by the Licensed Practical Nurse today this shift.
[2018-11-14 03:36] VITALS: BP 120/70
--- NOTE | 2018-11-14 05:20 | NUR ---
PT RESTING QUIETLY. CALL LIGHT IN REACH. NO SIGNS OF DISTRESS OR PAIN. BIPAP ON. WCTM
--- NOTE | 2018-11-14 07:50 | NUR ---
RESUMING PT CARE, PT IS LAYING IN BED WITH EYES CLOSED, RESPIRATIONS EVEN AND UNLABORED. CALL LIGHT IN REACH, WILL CONTINUE TO MONITOR AND FOLLOW PLAN OF CARE.
[2018-11-14 08:22] VITALS: BP 118/53
[2018-11-14 08:56] LABS: BASOPHILS 0.1 % (0-2); EOSINOPHILS 2.2 % (0-7); HEMATOCRIT 30.7 % (36.0-48.0); HEMOGLOBIN 8.7 g/dL (12-16); IMMATURE GRANULOCYTES 0.9 % (0-5); LYMPHOCYTES 16.3 % (15-50); MCH 22.1 pg (26.0-34.0); MCHC 28.3 g/dL (31.0-37.0); MCV 77.9 fL (80.0-100.0); MEAN PLATELET VOLUME 8.5 fL (7.4-10.4); MONOCYTES 9.5 % (2-11); PLATELET COUNT 351 10x3/uL (130-400); RBC 3.94 10x6/uL (4.00-5.40); RDW 17.1 % (11.5-14.5); WBC 12.6 10x3/uL (4.8-10.8)
[2018-11-14 09:09] LABS: ANION GAP 5.1 mmol/L (8-16); CALCIUM 9.4 mg/dL (8.5-10.1); CREATININE - SERUM 1.1 mg/dL (0.6-1.3); MAGNESIUM - SERUM 1.5 mg/dL (1.8-2.4); POTASSIUM - SERUM 3.2 mmol/L (3.5-5.1)
[2018-11-14 09:15] LABS: CARBON DIOXIDE 42.1 mmol/L (21.0-32.0)
--- NOTE | 2018-11-14 10:29 | NUR ---
NEW ORDER FOR MAGNESIUM IV ONE TIME BEFORE D/C, PT DOES NOT HAVE AND IV. PER GLORIA ESTEBAN APRN, DO 400 MG MAG OX NOW THEN AGAIN IN 4 HOURS, MAY D/C PT AFTER SECOND DOSE. ORDERS NOTED.
[2018-11-14 11:45] VITALS: BP 106/39
--- NOTE | 2018-11-14 12:32 | MORECARE ---
CASE MANAGEMENT DISCHARGE SUMMARY PATIENT: DOUGLAS HILLS UNIT: [id number] ADM DATE: 11/11/18 AGE: 53 : 63 SEX: F ROOM/BED: D.1207 AUTHOR: AMELIA MCGOVERN PHYSICIAN: REFERRING PHYSICIAN: CHARLIE HARO MD DATE OF SERVICE: 11/14/18 Discharge Plan Patient Name: DOUGLAS HILLS Facility: [facility]:[place] : 1965 Planned Disposition: [facility] w Plan Readm Anticipated Discharge Date: Discharge Date: Expected LOS: Initial Reviewer: [email or web address] Initial Review Date: 11/13/2018 Generated: 11/14/18 1:32 pm Comments DCP- Discharge Planning Updated by [email or web address]: Luz Delcid on 11/14/18 11:[address] Patient Name: DOUGLAS HILLS Admission Status: ER Accout number: [id number] Admission Date: 11-11-2018 : 1965 Admission Diagnosis:SHORTNESS OF BREATH Attending: CHARLIE HARO Current LOS: 3 Anticipated DC Date: Planned Disposition: [facility] w Plan Readm Primary Insurance: [facility] MEDICARE SOLUTIONS Discharge Planning Comments: Pt discharging back to [place](the [facility]) today via [place] [facility] . Spoke to [place] and they will call nurses station before coming. The were informed about last dose of med that has to be given at 1500 so pick can be at 1500 or after. IMM served. Seals Engraver: Luz Delcid DCP- Discharge Planning Updated by [id number]: Luz Delcid on 11/13/18 3:[address] Patient Name: DOUGLAS HILLS Admission Status: ER Accout number: [id number] Admission Date: 11-11-2018 : 1965 Admission Diagnosis:SHORTNESS OF BREATH Attending: CHARLIE HARO Current LOS: 2 Anticipated DC Date: Planned Disposition: [facility] w Plan Readm Primary Insurance: [facility] MEDICARE SOLUTIONS Discharge Planning Comments: SPOKE TO PT ABOUT DC NEEDS AND PLANS. PT WILL RETURN TO THE [facility]. LAND RESOURCE SPECIALIST WILL BE ARRANGED AT ID PT STATES HER BYPAP WAS AT THE [facility]. CM WILL VERIFY THAT IT WAS DAUGHTER IS HER POINT OF CONTACT [phone] Seals Engraver: Luz Delcid DCPIA - Discharge Planning Initial Assessment Updated by [email or web address]: Luz Delcid on 11/13/18 4:33 pm * Is the patient Alert and Oriented? Yes * How many steps to enter\exit or inside your home? * PCP [facility] [address] HECK * Pharmacy [facility] * Preadmission Environment [facility] * Facility Name [facility] * Partial ADLs (Assistance needed) Ambulation Bathing Dressing Eating Medication Management Toileting Transfers * Equipment BIPAP * List name and contact numbers for known caregivers / representatives who currently or will assist patient after discharge: DAUGHTER ALMA ALVAREZ [phone] * Verbal permission to speak to the caregivers and representatives has been obtained from the patient. Yes * Community resources currently utilized Other * Please name any agencies selected above. [facility] * Additional services required to return to the preadmission environment? No * Can the patient safely return to the preadmission environment? Yes * Has this patient been hospitalized within the prior 30 days at any hospital? Yes Last DP export: 11/13/18 3:48 p Patient Name: DOUGLAS HILLS Page 48922 at 1232 All edits/amendments must be made on the electronic document DICTATION DATE: 11/14/18 1231 SPRINKLER FITTER: CLEMENT 11/14/18 1231 RPT#: [id number] DC DATE: STATUS: ADM IN [facility] [address] [place] [address] END OF REPORT
--- NOTE | 2018-11-14 15:43 | NUR ---
PT D/C BACK TO THE [facility], REPORT CALLED TO THE DON. WAS PICKED UP BY [facility], NO IV TO REMOVE.
--- NOTE | 2018-11-14 15:57 | MORECARE ---
CASE MANAGEMENT DISCHARGE SUMMARY PATIENT: DOUGLAS HILLS UNIT: [id number] ADM DATE: 11/11/18 AGE: 53 : 63 SEX: F ROOM/BED: D.1207 AUTHOR: FROILANDOC PHYSICIAN: REFERRING PHYSICIAN: CHARLIE HARO MD DATE OF SERVICE: 11/14/18 Discharge Plan Patient Name: DOUGLAS HILLS Facility: [facility]:[place] : 1965 Planned Disposition: [facility] w Plan Readm Anticipated Discharge Date: Discharge Date: 11/14/2018 Expected LOS: Initial Reviewer: [email or web address] Initial Review Date: 11/13/2018 Generated: 11/14/18 4:57 pm Comments DCP- Discharge Planning Updated by [email or web address]: Luz Delcid on 11/14/18 2:[address] Discharged with the [facility] DCP- Discharge Planning Updated by [id number]: Luz Delcid on 11/14/18 11:[address] Patient Name: DOUGLAS HILLS Admission Status: ER Accout number: [id number] Admission Date: 11-11-2018 : 1965 Admission Diagnosis:SHORTNESS OF BREATH Attending: CHARLIE HARO Current LOS: 3 Anticipated DC Date: Planned Disposition: [facility] w Plan Readm Primary Insurance: [facility] MEDICARE SOLUTIONS Discharge Planning Comments: Pt discharging back to [place](the [facility]) today via [place] . Spoke to [place] and they will call nurses station before coming. The were informed about last dose of med that has to be given at 1500 so pick can be at 1500 or after. IMM served. Reed Fixer: Luz Delcid DCP- Discharge Planning Updated by [email or web address]: Luz Delcid on 11/13/18 3:[address] Patient Name: DOUGLAS HILLS Admission Status: ER Accout number: [id number] Admission Date: 11-11-2018 : 1965 Admission Diagnosis:SHORTNESS OF BREATH Attending: CHARLIE HARO Current LOS: 2 Anticipated DC Date: Planned Disposition: [facility] w Plan Readm Primary Insurance: [facility] MEDICARE SOLUTIONS Discharge Planning Comments: SPOKE TO PT ABOUT DC NEEDS AND PLANS. [facility]. MEDICAL CLERK [place] AR[place]ANGED AT [place] PT STATES HER BYPAP WAS AT THE [facility]. CM WILL VERIFY THAT IT WAS DAUGHTER IS HER POINT OF CONTACT [phone] Reed Fixer: Luz Delcid DCPIA - Discharge Planning Initial Assessment Updated by [email or web address]: Luz Delcid on 11/13/18 4:33 pm * Is the patient Alert and Oriented? Yes * How many steps to enter\exit or inside your home? * PCP [facility] HECK * Pharmacy [facility] * Preadmission Environment [facility] * Facility Name [facility] * Partial ADLs (Assistance needed) Ambulation Bathing Dressing Eating Medication Management Toileting Transfers * Equipment BIPAP * List name and contact numbers for known caregivers / representatives who currently or will assist patient after discharge: MONET ALVAREZ [phone] * Verbal permission to speak to the caregivers and representatives has been obtained from the patient. Yes * Community resources currently utilized Other * Please name any agencies selected above. [facility] * Additional services required to return to the preadmission environment? No * Can the patient safely return to the preadmission environment? Yes * Has this patient been hospitalized within the prior 30 days at any hospital? Yes Coverage Notice Reviewer: [id number] - Luz Dangeloman Notice Issued Date-Time: 11/14/2018 11:40 Notice Type: IM Discharge Notice Notice Delivered To: Patient Relationship to Patient: Collections Specialist Name: Delivery Method: HAND - Hand Delivered Adrianne Days: Prior Verbal Notification: Recipient Understood Notice: Yes Recipient Signature: Yes Med Rec Note Co-signed by Attending: Coverage Notice Comment: Last DP export: 11/14/18 11:32 a Patient Name: DOUGLAS HILLS Page 82674 at 1557 All edits/amendments must be made on the electronic document DICTATION DATE: 11/14/181555 SWIM INSTRUCTOR: CLEMENT 11/14/181555 RPT#: [id number] [place] DATE:11/14/18 STATUS: DIS IN [facility] [address] [place] [address] END OF REPORT
== END 2018-11-14 15:44 | DRG 193 ==
LOC: D.ER 15:39 → D.EDHOLD 20:06 → D.M3 20:06
PROVIDERS: Family Medicine; ADMIT Internal Medicine Nephrology; ATTEND Internal Medicine Nephrology
PROC: 5A09357 Assistance with Respiratory Ventilation, Less than 24 Consecutive Hours, Continuous Positive Airway Pressure (ICD-10-PCS; principal; 2018-11-12)
DX: J18.9 Pneumonia, unspecified organism (principal); J96.21 Acute and chronic respiratory failure with hypoxia; I50.33 Acute on chronic diastolic (congestive) heart failure; J96.22 Acute and chronic respiratory failure with hypercapnia; N17.9 Acute kidney failure, unspecified; E66.2 Morbid (severe) obesity with alveolar hypoventilation; J98.11 Atelectasis; J44.1 Chronic obstructive pulmonary disease with (acute) exacerbation; J44.0 Chronic obstructive pulmonary disease with (acute) lower respiratory infection; Z99.81 Dependence on supplemental oxygen; I10 Essential (primary) hypertension; E78.5 Hyperlipidemia, unspecified; E11.9 Type 2 diabetes mellitus without complications; K21.9 Gastro-esophageal reflux disease without esophagitis; D50.9 Iron deficiency anemia, unspecified; E87.6 Hypokalemia; J20.9 Acute bronchitis, unspecified; I11.0 Hypertensive heart disease with heart failure; J30.9 Allergic rhinitis, unspecified

== ENCOUNTER 2018-12-19 01:23 | Inpatient (IN) | payer MEDICARE, MEDICAID ==
[~2018-12-19] VITALS: Ht 152.4 cm; Wt 152.0 kg
[2018-12-19 02:00] LABS: BASOPHILS 0.1 % (0-2); HEMATOCRIT 30.1 % (36.0-48.0); HEMOGLOBIN 8.3 g/dL (12-16); IMMATURE GRANULOCYTES 1.7 % (0-5); LYMPHOCYTES 14.9 % (15-50); MCH 21.9 pg (26.0-34.0); MCHC 27.6 g/dL (31.0-37.0); MCV 79.4 fL (80.0-100.0); MEAN PLATELET VOLUME 8.5 fL (7.4-10.4); MONOCYTES 7.1 % (2-11); NEUTROPHILS 74.2 % (40-80); RBC 3.79 10x6/uL (4.00-5.40); RDW 17.5 % (11.5-14.5); WBC 16.8 10x3/uL (4.8-10.8)
[2018-12-19 02:02] LABS: PLATELET COUNT 277 10x3/uL (130-400)
[2018-12-19 02:08] LABS: APTT 29.7 SECONDS (22.8-39.4); INR 1.06 (0.85-1.17); PROTIME 13.3 SECONDS (11.6-15.0)
[2018-12-19 02:14] LABS: ALKALINE PHOSPHATASE 78 U/L (46-116); ALT (SGPT) 12 U/L (10-68); BILIRUBIN - TOTAL 0.38 mg/dL (0.2-1.3); CALC OSMOLALITY 286 mosm/kg (275-300); CALCIUM 9.4 mg/dL (8.5-10.1); CHLORIDE - SERUM 96 mmol/L (98-107); CREATININE - SERUM 0.9 mg/dL (0.6-1.3); GLUCOSE 97 mg/dL (74-106); POTASSIUM - SERUM 3.4 mmol/L (3.5-5.1); PROTEIN - SERUM 7.4 g/dL (6.4-8.2); SODIUM 141 mmol/L (136-145); UREA NITROGEN 30 mg/dL (7-18); eGFR NON AFRICAN AMERICAN 69 mL/min (90-120)
[2018-12-19 02:15] LABS: CARBON DIOXIDE 47.7 mmol/L (21.0-32.0)
[2018-12-19 02:25] LABS: CKMB 0.5 U/L (0.0-3.6); CREATINE KINASE 20 UL (21-215); PRO BNP 345 pg/mL (0-125); TROPONIN-I < 0.017 ng/mL (0.000-0.060)
[2018-12-19 03:47] VITALS: BP 134/57
--- NOTE | 2018-12-19 05:00 | NUR ---
PT ARRIVED TO FLOOR VIA STRETCHER, ALERT AND ORIENTED. NO SIGNS OF DISTRESS. TAKEN OFF BIPAP BY RT AND PLACED ON 12L/NC. IV LEFT UPPER ARM INFUSING LEVAQUIN IVPB. NO REDNESS OR SWELLING AT INSERTION SITE. VSS. PT SLIGHTLY NAUSEAS, STATES SHE HAS NOT HAD ANYTHING TO EAT ALL DAY AND BELIEVES THAT IS WHY. GAVE PT SALTINE CRACKERS AND WATER, TOLERATED WELL. LOWER LOBES DIMINISHED TO AUSCULTATION. PT ABLE TO TURN SELF TO GET ONTO BEDPAN. STATES SHE USES WALKER AT [facility] TO GET AROUND. DENIES OTHER NEEDS. CL IN REACH, BED LOWEST POSITION, SRX2. WILL CTM
[2018-12-19] MEDS ORDERED: ISOPTO TEARS15 ML EACH EYE (05:17)
[2018-12-19] MEDS ORDERED: MAG-OXIDE400 MG PO (05:22)
[2018-12-19] MEDS ORDERED: MELATONIN 3 MG1 TAB PO (05:23)
[2018-12-19] MEDS ORDERED: MUCINEX600 MG PO (05:25)
[2018-12-19] MEDS ORDERED: NITROSTAT0.4 MG SL (05:26)
[2018-12-19] MEDS ORDERED: ZOFRAN4 MG PO (05:27)
[2018-12-19] MEDS ORDERED: TRAZODONE HCL150 MG PO (05:31)
[2018-12-19 05:40] VITALS: BP 102/50; BMI 65.5
--- NOTE | 2018-12-19 07:31 | NUR ---
PT LYING IN BED NO S/S OF DISTRESS. STATED SHE WAS ABLE TO SLEEP SOME EVEN THOUGH SHE DID NOT ARRIVE IN ROOM TIL LATE. ASSUME PT CARE
[2018-12-19 09:42] VITALS: BP 127/65
[2018-12-19 12:52] VITALS: BP 119/52
--- NOTE | 2018-12-19 13:07 | NUR ---
PTN REQUESTED TO HAVE HESS PLACED SPOKE TO EDGAR MENDOSA AND WAS ADVISED TO PLACE HESS. PT REQUESTED TO HAVE HESS PLACED AFTER LUNCH. NO OTHER NEEDS VOICED, CONTINUE WITH PLAN OF CARE
[2018-12-19 14:26] VITALS: Ht 152.4 cm; Wt 152.0 kg
[2018-12-19 15:05] LABS: APPEARANCE CLEAR (CLEAR); BILIRUBIN NEGATIVE (NEGATIVE); COLOR STRAW (YELLOW); GLUCOSE NEGATIVE (NEGATIVE); KETONE NEGATIVE (NEGATIVE); NITRITE NEGATIVE (NEGATIVE); PROTEIN NEGATIVE (NEGATIVE); SPECIFIC GRAVITY 1.005 (1.005-1.020); UROBILINOGEN NORMAL (NORMAL)
--- NOTE | 2018-12-19 15:09 | NUR ---
PT IV INFILTRATED ,ATTEMTPED T RESITE PT X'S 2 UNSUCCESSFUL, PLACED ORDER FOR VASULAR ACCESSS
--- NOTE | 2018-12-19 15:23 | NUR ---
I have reviewed this patient and I concur with the Shift Assessment completed by the Licensed Practical Nurse today this shift.
[2018-12-19 17:06] VITALS: BP 123/54
--- NOTE | 2018-12-19 17:41 | NUR ---
WENT TO PT ROOM TO DO FSBS AND PT IV WAS LAYING ON THE FLOOR. VASCULAR ACCESS NURSE JUST PLACED IV SEVERAL HOURS AGO PT HAS PO MEDS AND ABX. WILL NOT START IV AT THIS TIME. NO NEEDS VOICED NO S/S OF DISTRESS. CONTINUE WITH PLAN OF CARE
--- NOTE | 2018-12-19 19:30 | NUR ---
PT LYING IN BED ASLEEP WITHOUT DISTRESS. 02 9L/NC. WIHTOUT IV ACCESS AT THIS TIME. HESS IN PLACE. PLEXI BOOTS IN PLACE. BED ALARM ON, CL IN REACH. WILL CTM
[2018-12-19 20:00] VITALS: BP 104/45
--- NOTE | 2018-12-19 21:30 | NUR ---
PT STILL ASLEEP AT THIS TIME. BARELY ABLE TO WAKE PT UP TO TAKE MEDS, KEPT FALLING ASLEEP. HELD TRAZADONE D/T PT ALREADY BEING VERY SLEEP AND BP LOW. RADIOLOGY AT BEDSIDE TO ASK PT IF SHE WOULD GO DOWN FOR CT NOW OR IN AM. PT REQUESTED TO GO IN AM. WITHOUT OTHER NEEDS. CL IN REACH, WILL CTM
--- NOTE | 2018-12-19 23:30 | NUR ---
RESPIRATORY AT BEDSIDE TO PLACE PT ON BIPAP. PT STATES SHE HAS HEADACHE, REQUESTING PAIN PILL. PT HAD NORCO 2 HOURS AGO, NOT TIME YET. PT VERBALIZED UNDERSTANDING
[2018-12-20] VITALS: BP 110/48
[2018-12-20 04:00] VITALS: BP 118/50
[2018-12-20 07:46] LABS: ALBUMIN 3.1 g/dL (3.4-5.0); BILIRUBIN - TOTAL 0.22 mg/dL (0.2-1.3); CALCIUM 8.6 mg/dL (8.5-10.1); CREATININE - SERUM 1.1 mg/dL (0.6-1.3); POTASSIUM - SERUM 3.5 mmol/L (3.5-5.1); PROTEIN - SERUM 6.7 g/dL (6.4-8.2)
--- NOTE | 2018-12-20 07:58 | NUR ---
PT BIPAP IS BEEPING AND PT HAS MASK ON BUT DOES NOT SOUND LIKE IT IS SECURE. PT CO2 WAS 102 THIS MORNING. PER PM NURSE PT CONTINUED TO TAKE MASK ON AND OFF THROUGH THE NIGHT. PT SLEEPING HARD HAD TO SHAKE TO WAKE UP. CONTINUE WITH PLAN OF CARE
[2018-12-20 08:05] LABS: BASOPHILS 0.1 % (0-2); EOSINOPHILS 0.2 % (0-7); HEMATOCRIT 28.9 % (36.0-48.0); HEMOGLOBIN 7.8 g/dL (12-16); IMMATURE GRANULOCYTES 1.2 % (0-5); LYMPHOCYTES 7.9 % (15-50); MCH 21.7 pg (26.0-34.0); MCV 80.5 fL (80.0-100.0); MEAN PLATELET VOLUME 8.5 fL (7.4-10.4); MONOCYTES 9.9 % (2-11); NEUTROPHILS 80.7 % (40-80); PLATELET COUNT 267 10x3/uL (130-400); RBC 3.59 10x6/uL (4.00-5.40); RDW 17.2 % (11.5-14.5); WBC 13.6 10x3/uL (4.8-10.8)
[2018-12-20 08:10] LABS: CARBON DIOXIDE 49.5 mmol/L (21.0-32.0)
[2018-12-20 08:41] VITALS: BP 101/50
--- NOTE | 2018-12-20 09:39 | NUR ---
OT NOTE: ATTEMPTED EVAL, HOWEVER, RESPIRATORY REQUESTED TO HOLD ON PT SECONDARY TO HIGH CO2 LEVELS. BERNADINE HILL, OTR/L
--- NOTE | 2018-12-20 12:49 | NUR ---
PT HAS IV ACCESS IN RT FOREARM OBTAINED BY VASCULAR ACCESS NURSE. PT STATING 76 ON 4L OFF BIPAP, RADHA BURTON IN RESP AND WAS ADVISED TO PLACE PT ON 6L WHILE EATING. PT BACK ON BIPAP STATES NOT HUNGRY. CONTINUE WITH PLAN OF CARE
[2018-12-20 13:24] VITALS: BP 113/52
--- NOTE | 2018-12-20 15:18 | MORECARE ---
CASE MANAGEMENT DISCHARGE SUMMARY PATIENT: DOUGLAS HILLS UNIT: [id number] ADM DATE: 12/19/18 AGE: 53 : 63 SEX: F ROOM/BED: D.2208 AUTHOR: AMELIA MCGOVERN PHYSICIAN: REFERRING PHYSICIAN: MIRANDA WILSON MD DATE OF SERVICE: 12/20/18 Discharge Plan Patient Name: DOUGLAS HILLS Facility: [facility]:[place] : 1965 Planned Disposition: [facility] Fac [facility] Anticipated Discharge Date: Discharge Date: Expected LOS: Initial Reviewer: [email or web address] Initial Review Date: 12/19/2018 Generated: 12/20/18 4:18 pm Comments DCP- Discharge Planning Updated by [id number]: Dori Young on 12/20/18 2:[address] Patient Name: DOUGLAS HILLS Admission Status: ER Accout number: [id number] Admission Date: 12-19-2018 : 1965 Admission Diagnosis: Attending: MIRANDA WILSON Current LOS: 1 Anticipated DC Date: Planned Disposition: [facility] Primary Insurance: [facility] MEDICARE SOLUTIONS Discharge Planning Comments: ATTEMPTED TO SEE PATIENT, BUT SHE WAS ASLEEP. 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 I ANTICIPATE HER TO DISCHARGE BACK TO THE [facility]. SHE HAS HOME O2, NEBULIZER AND A TRILIOGY MACHINE. CM WILL ATTEMPT TO SEE HER AT A LATER TIME WHEN SHE IS AWAKE. CM TO FOLLOW AND ASSIST NEEDED Focused Factory Manager: Dori Young DCPIA - Discharge Planning Initial Assessment Updated by [email or web address]: Dori Young on 12/20/18 3:11 pm * Facility Name [facility] * ADLs Partial Dependent * Partial ADLs (Assistance needed) Medication Management * Equipment Nebulizer Oxygen Ventilator * Other Equipment TRILOLGY * List name and contact numbers for known caregivers / representatives who currently or will assist patient after discharge: ALMA ALVAREZ * Verbal permission to speak to the caregivers and representatives has been obtained from the patient. N/A * Additional services required to return to the preadmission environment? No * Can the patient safely return to the preadmission environment? Yes * Has this patient been hospitalized within the prior 30 days at any hospital? No Patient Name: DOUGLAS HILLS Page 37069 at 1518 All edits/amendments must be made on the electronic document DICTATION DATE: 12/20/181516 MANAGER STAR: CLEMENT 12/20/181516 RPT#: [id number] DC DATE: STATUS: ADM IN [facility] [address] [place] [address] END OF REPORT
[2018-12-20 16:10] VITALS: BP 95/43
--- NOTE | 2018-12-20 16:17 | NUR ---
I have reviewed this patient and I concur with the Shift Assessment completed by the Licensed Practical Nurse today this shift.
--- NOTE | 2018-12-20 19:24 | NUR ---
RECEIVED REPORT, WILL ASSUME CARE OF PT, PT IS SLEEPING , BIPAP IS ON, NO DISTRESS NOTICED AT THIS TIME, BED IS LOW, SRX2, CALL LIGHT IN REACH, WILL CONTINUE PLAN OF CARE
[2018-12-20 20:00] VITALS: BP 102/41
--- NOTE | 2018-12-20 22:02 | NUR ---
EVENING MEDS GIVEN, BLOODSUGAR-80, GAVE APPLE JUCIE, CALL LIGHT IN REACH, WILL CONTINUE PLAN OF CARE
--- NOTE | 2018-12-20 23:22 | NUR ---
SLEEPING, BIPAP ON, NO DISTRESS NOTICE AT THIS TIME, BED IS LOW, SRX2, CALL LIGHT IN REACH, WILL CONTINUE PLAN OF CARE
[2018-12-21] VITALS: BP 108/49
--- NOTE | 2018-12-21 01:03 | NUR ---
SLEEPING, BIPAP ON, CALL LIGHT IN REACH, WILL CONTINUE PLAN OF CARE
--- NOTE | 2018-12-21 02:52 | NUR ---
SLEEPING ON R.SIDE,BIPAP IS ON, CALL LIGHT IN REACH, WILL CONTINUE PLAN OF CARE
[2018-12-21 03:00] VITALS: BP 112/56
--- NOTE | 2018-12-21 03:17 | NUR ---
COMPLAINS OF BACK PAIN, GAVE NORCO ORDER
--- NOTE | 2018-12-21 03:24 | NUR ---
I have reviewed this patient and I concur with the Shift Assessment completed by the Licensed Practical Nurse today this shift.
[2018-12-21 06:57] LABS: BASOPHILS 0.1 % (0-2); EOSINOPHILS 1.4 % (0-7); HEMATOCRIT 32.9 % (36.0-48.0); HEMOGLOBIN 8.9 g/dL (12-16); IMMATURE GRANULOCYTES 0.9 % (0-5); LYMPHOCYTES 10.3 % (15-50); MCH 21.7 pg (26.0-34.0); MCHC 27.1 g/dL (31.0-37.0); MEAN PLATELET VOLUME 8.5 fL (7.4-10.4); MONOCYTES 8.5 % (2-11); NEUTROPHILS 78.8 % (40-80); PLATELET COUNT 270 10x3/uL (130-400); RBC 4.11 10x6/uL (4.00-5.40); RDW 17.3 % (11.5-14.5); WBC 15.1 10x3/uL (4.8-10.8)
[2018-12-21 07:24] LABS: ALBUMIN 3.2 g/dL (3.4-5.0); ALKALINE PHOSPHATASE 72 U/L (46-116); ALT (SGPT) 13 U/L (10-68); BILIRUBIN - TOTAL 0.35 mg/dL (0.2-1.3); CALCIUM 9.5 mg/dL (8.5-10.1); CHLORIDE - SERUM 91 mmol/L (98-107); POTASSIUM - SERUM 3.3 mmol/L (3.5-5.1); PROTEIN - SERUM 7.8 g/dL (6.4-8.2); SODIUM 142 mmol/L (136-145); UREA NITROGEN 43 mg/dL (7-18)
[2018-12-21 07:33] LABS: CALC OSMOLALITY 290 mosm/kg (275-300); CARBON DIOXIDE 55.5 mmol/L (21.0-32.0); CREATININE - SERUM 0.8 mg/dL (0.6-1.3); GLUCOSE 47 mg/dL (74-106); eGFR NON AFRICAN AMERICAN 79 mL/min (90-120)
[2018-12-21 09:04] VITALS: BP 101/49
--- NOTE | 2018-12-21 11:26 | NUR ---
PT RESTING IN BED. NO SIGNS OF DISTRESS. IV OUT TIP INTACT. ON 40% BIPAP. HAS HESS NO KINKS. BLOOD SUGAR WAS 47 THIS AM GAVE 3 ORANGE JUICES CAME UP TO 123 WILL RECHECK AGAIN. DENIES ANY FUTHER NEED AT THIS TIME. CALL LIGHT IN REACH. BED LOW POSITION. NO FAMILY AT BEDSIDE AT THIS TIME.
[2018-12-21 13:22] VITALS: BP 107/58
--- NOTE | 2018-12-21 15:36 | NUR ---
I have reviewed this patient and I concur with the Shift Assessment completed by the Licensed Practical Nurse today this shift.
[2018-12-21 17:13] VITALS: BP 100/48
--- NOTE | 2018-12-21 19:30 | NUR ---
PT ALERT AND ORIENTED WHEN ENTERING THE ROOM. BIPAP ON AND IN PLACE. HESS CATHETER PATENT AND DRAINING YELLOW URINE. PT DOES NOT HAVE IV ACCESS. CARDIAC CARE NURSE AWARE. MIDLINE HAS BEEN REQUESTED IN PRIOR DAYS, RECEIVED IN REPORT THAT IV ACCESS TEAM WAS ON FLOOR TODAY BUT IT WAS NOT PLACED. ATTEMPTS ON BOTH DAYS AND NIGHT SHIFTS WERE MADE. PATIENT COMPLAINS OF GENERALIZED ACHES AND PAINS. DENIES FURTHER NEEDS. CALL LIGHT IN REACH. DEMONSTRATES HOW TO USE.
[2018-12-21 20:00] VITALS: BP 110/41
[2018-12-22] VITALS: BP 119/56
--- NOTE | 2018-12-22 01:49 | NUR ---
I have reviewed this patient and I concur with the Shift Assessment completed by the Licensed Practical Nurse today this shift.
[2018-12-22 03:00] VITALS: BP 115/49
--- NOTE | 2018-12-22 07:52 | NUR ---
PT ALERT X 4. EXPIRATORY WHEEZES TO UPPER CHAVEZ, DIMINISHED BREATH SOUNDS TO LOWER LOBES, 4L O2 PER NC. NO IV ACCESS AT THIS TIME. HESS IN PLACE LIGHT YELLOW AND CLEAR URINE. YEAST STARTING UNDER BREASTS AND FOLD TO ABDOMEN. PT REPORTING PAIN OF 6/10, WILL MONITOR. BED LOW, CALL LIGHT IN REACH. NO OTHER NEEDS AT THIS TIME.
[2018-12-22 08:07] LABS: ALBUMIN 3.3 g/dL (3.4-5.0); BILIRUBIN - TOTAL 0.5 mg/dL (0.2-1.3); CALCIUM 9.5 mg/dL (8.5-10.1); PROTEIN - SERUM 7.3 g/dL (6.4-8.2)
[2018-12-22 08:10] LABS: ANION GAP 10.1 mmol/L (8-16); CARBON DIOXIDE 45.8 mmol/L (21.0-32.0); CREATININE - SERUM 1.1 mg/dL (0.6-1.3); POTASSIUM - SERUM 3.9 mmol/L (3.5-5.1)
[2018-12-22 08:14] VITALS: BP 112/47
--- NOTE | 2018-12-22 10:14 | NUR ---
PT LYING IN BED, STATED SHE HAD EATEN ALL OF HER BREAKFAST THIS MORNING BUT THEN SHORTLY AFTER BECAME VERY NAUSEOUS AND STARTED TO THROW UP. ADMINISTERED PRN ODT ZOFRAN. NO OTHER NEEDS VOICED, CONTINUE WITH PLAN OF CARE
[2018-12-22 12:14] VITALS: BP 118/44
[2018-12-22 13:36] LABS: BASOPHILS 0.2 % (0-2); EOSINOPHILS 3.3 % (0-7); HEMATOCRIT 32.2 % (36.0-48.0); HEMOGLOBIN 9.1 g/dL (12-16); IMMATURE GRANULOCYTES 1.2 % (0-5); LYMPHOCYTES 14.3 % (15-50); MCH 21.9 pg (26.0-34.0); MCHC 28.3 g/dL (31.0-37.0); MEAN PLATELET VOLUME 8.5 fL (7.4-10.4); MONOCYTES 7.2 % (2-11); NEUTROPHILS 73.8 % (40-80); PLATELET COUNT 289 10x3/uL (130-400); RBC 4.16 10x6/uL (4.00-5.40); RDW 17.2 % (11.5-14.5); WBC 15.3 10x3/uL (4.8-10.8)
[2018-12-22 13:37] LABS: MCV 77.4 fL (80.0-100.0)
[2018-12-22 16:58] VITALS: BP 100/51
[2018-12-22 20:16] VITALS: BP 110/36
--- NOTE | 2018-12-22 21:54 | NUR ---
PT ALERT/ORIENTED. ASSESSMENT COMPLETE PER FLOW-SHEET. SCHEDULED MEDS GIVEN. PAIN MED GIVEN FOR 7/10 PAIN SCORE. FSBS 217 - INSULIN GIVEN PER SS. NO OTHER NEEDS. WILL REASSESS AND CONTINUE TO MONITOR.
[2018-12-23 05:38] LABS: BASOPHILS 0.1 % (0-2); EOSINOPHILS 4.6 % (0-7); HEMATOCRIT 35.8 % (36.0-48.0); HEMOGLOBIN 9.8 g/dL (12-16); IMMATURE GRANULOCYTES 1.1 % (0-5); LYMPHOCYTES 15.2 % (15-50); MCH 21.5 pg (26.0-34.0); MCHC 27.4 g/dL (31.0-37.0); MCV 78.5 fL (80.0-100.0); MEAN PLATELET VOLUME 8.5 fL (7.4-10.4); PLATELET COUNT 287 10x3/uL (130-400); RBC 4.56 10x6/uL (4.00-5.40); RDW 17.3 % (11.5-14.5); WBC 12.1 10x3/uL (4.8-10.8)
[2018-12-23 05:44] VITALS: BP 120/80
[2018-12-23 05:52] LABS: ALBUMIN 3.4 g/dL (3.4-5.0); ANION GAP 3.8 mmol/L (8-16); BILIRUBIN - TOTAL 0.37 mg/dL (0.2-1.3); CREATININE - SERUM 1.1 mg/dL (0.6-1.3); POTASSIUM - SERUM 3.5 mmol/L (3.5-5.1); PROTEIN - SERUM 8.1 g/dL (6.4-8.2)
[2018-12-23 05:56] LABS: CARBON DIOXIDE 48.7 mmol/L (21.0-32.0)
--- NOTE | 2018-12-23 08:02 | NUR ---
AWAKE AND ALERT. ORIENTED X3. NO C/O AT THIS TIME. LUNGS ARE CLEAR BUT DIMINISHED THROUGHOUT. NO COUGH NOTED. SKIN IS INTACT WITHOUT REDNESS. NO IV ACCESS AT THIS TIME. DENIES NEEDS. HESS PATENT WITH CLEAR YELLOW URINE.
[2018-12-23 09:49] VITALS: BP 115/61
--- NOTE | 2018-12-23 10:52 | NUR ---
REQUESTED AND GIVNE ONE HYDROCODONE PO FOR C/O BACK/LEG PAIN LEVEL 10. WILL MONITOR.
--- NOTE | 2018-12-23 12:00 | NUR ---
NUTRITION F/U TOLERATING ADA DIET WITH 100% INTAKE RECENT MEALS. WILL CONTINUE TO PROVIDE ADA DIET, MONITOR PT PROGRESS. RD FOLLOWING
[2018-12-23 13:35] VITALS: BP 147/62
--- NOTE | 2018-12-23 14:21 | MORECARE ---
CASE MANAGEMENT DISCHARGE SUMMARY PATIENT: DOUGLAS HILLS UNIT: [id number] ADM DATE: 12/19/18 AGE: 53 : 63 SEX: F ROOM/BED: D.2208 AUTHOR: AMELIA MCGOVERN PHYSICIAN: REFERRING PHYSICIAN: MIRADNA WILSON MD DATE OF SERVICE: 12/23/18 Discharge Plan Patient Name: DOUGLAS HILLS Facility: [facility]:[place] : 1965 Planned Disposition: [facility]way Care Fac [facility] Anticipated Discharge Date: Discharge Date: Expected LOS: Initial Reviewer: [email or web address] Initial Review Date: 12/19/2018 Generated: 12/23/18 3:21 pm Comments DCP- Discharge Planning Updated by [email or web address]: Dori Young on 12/20/18 2:[address] Patient Name: DOUGLAS HILLS Admission Status: ER Accout number: [id number] Admission Date: 12-19-2018 : 1965 Admission Diagnosis: Attending: MIRANDA WILSON Current LOS: 1 Anticipated DC Date: Planned Disposition: [facility] Primary Insurance: [facility] MEDICARE SOLUTIONS Discharge Planning Comments: ATTEMPTED TO SEE PATIENT, BUT SHE WAS ASLEEP. 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 I ANTICIPATE HER TO DISCHARGE BACK TO THE [facility]. SHE HAS HOME O2, NEBULIZER AND A TRILIOGY MACHINE. CM WILL ATTEMPT TO SEE HER AT A LATER TIME WHEN SHE IS AWAKE. CM TO FOLLOW AND ASSIST NEEDED Phone Banker: Dori Young DCPIA - Discharge Planning Initial Assessment Updated by [id number]: Dori Young on 12/20/18 3:11 pm * Facility Name [facility] * ADLs Partial Dependent * Partial ADLs (Assistance needed) Medication Management * Equipment Nebulizer Oxygen Ventilator * Other Equipment TRILOLGY * List name and contact numbers for known caregivers / representatives who currently or will assist patient after discharge: ALMA ALVAREZ * Verbal permission to speak to the caregivers and representatives has been obtained from the patient. N/A * Additional services required to return to the preadmission environment? No * Can the patient safely return to the preadmission environment? Yes * Has this patient been hospitalized within the prior 30 days at any hospital? No External Providers External Provider: [facility] Next Contact Date: Service Request Date: Service Type: Resolution: Reviewer: Comments: Last DP export: 12/20/18 2:18 p Patient Name: DOUGLAS HILLS Page 33315 at 1421 All edits/amendments must be made on the electronic document DICTATION DATE: 12/23/181420 CASE WORKER: CLEMENT 12/23/181420 RPT#: [id number] DC DATE: STATUS: ADM IN [facility] [address] [place] [address] END OF REPORT
--- NOTE | 2018-12-23 14:38 | MORECARE ---
CASE MANAGEMENT DISCHARGE SUMMARY PATIENT: DOUGLAS HILLS UNIT: [id number] ADM DATE: 12/19/18 AGE: 53 : 63 SEX: F ROOM/BED: D.2208 AUTHOR: AMELIA MCGOVERN PHYSICIAN: REFERRING PHYSICIAN: MIRANDA WILSON MD DATE OF SERVICE: 12/23/18 Discharge Plan Patient Name: DOUGLAS HILLS Facility: [facility]:[place] : 1965 Planned Disposition: Correction Care [facility] Anticipated Discharge Date: Discharge Date: Expected LOS: Initial Reviewer: [email or web address] Initial Review Date: 12/19/2018 Generated: 12/23/18 3:37 pm Comments DCP- Discharge Planning Updated by [email or web address]: Dori Young on 12/23/18 1:[address] Patient has discharge orders she will be discharging back to [facility] in a [facility] bed. [facility] will provide transportation. IMM served and explained DCP- Discharge Planning Updated by [email or web address]: Dori Young on 12/20/18 2:[address] Patient Name: DOUGLAS HILLS Admission Status: ER Accout number: [id number] Admission Date: 12-19-2018 : 1965 Admission Diagnosis: Attending: MIRANDA WILSON Current LOS: 1 Anticipated DC Date: Planned Disposition: Field Coil Winder Care [facility] Primary Insurance: [facility] MEDICARE SOLUTIONS Discharge Planning Comments: ATTEMPTED TO SEE PATIENT, BUT SHE WAS ASLEEP. 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 I ANTICIPATE HER TO DISCHARGE BACK TO THE [facility]. SHE HAS HOME O2, NEBULIZER AND A TRILIOGY MACHINE. CM WILL ATTEMPT TO SEE HER AT A LATER TIME WHEN SHE IS AWAKE. CM TO FOLLOW AND ASSIST NEEDED Digital Content Coordinator: Dori Young DCPIA - Discharge Planning Initial Assessment Updated by [email or web address]: Dori Young on 12/20/18 3:11 pm * Facility Name [facility] * ADLs Partial Dependent * Partial ADLs (Assistance needed) Medication Management * Equipment Nebulizer Oxygen Ventilator * Other Equipment TRILOLGY * List name and contact numbers for known caregivers / representatives who currently or will assist patient after discharge: ALMA ALVAREZ * Verbal permission to speak to the caregivers and representatives has been obtained from the patient. N/A * Additional services required to return to the preadmission environment? No * Can the patient safely return to the preadmission environment? Yes * Has this patient been hospitalized within the prior 30 days at any hospital? No Coverage Notice Reviewer: [email or web address] Bayron Young Notice Issued Date-Time: 12/23/2018 14:30 Notice Type: IM Discharge Notice Notice Delivered To: Patient Relationship to Patient: Php Website Developer Name: Delivery Method: HAND - Hand Delivered Adrianne Days: Prior Verbal Notification: Recipient Understood Notice: Yes Recipient Signature: Yes Med Rec Note Co-signed by Attending: Coverage Notice Comment: Last DP export: 12/23/18 1:21 pm Patient Name: DOUGLAS HILLS Page 40543 at 1438 All edits/amendments must be made on the electronic document DICTATION DATE: 12/23/181436 WATER PROJECT ENGINEER: CLEMENT 12/23/181436 RPT#: [id number] DC DATE: STATUS: ADM IN [facility] [address] [place] [address] END OF REPORT
--- NOTE | 2018-12-23 15:09 | NUR ---
REQUESTED AND GIVNE ONE HYDROCODONE PO FOR C/O BACK AND LEG PAIN LEVEL 7. WILL MONITOR.
--- NOTE | 2018-12-23 16:05 | NUR ---
DISCHARGED TO THE [facility] WHICH IS WHERE SHE HAS BEEN LIVING. DISCHARGE INSTRUCTIONS GIVEN BOTH VERBALLY AND WRITTEN. ALL QUESTIONS ANSWERED. PATIENT VERBALZIED UNDERSTANDING OF SAME. HESS D/C WITH TIP INTACT WITHOUT DIFFICULTY. REPORT CALLED TO PEDRO LUIS SIMEON RN AT THE [facility]. ALL QUESTIONS ANSWERED. ALL BELONGINGS WITH PATIENT.
--- NOTE | 2018-12-24 10:01 | MORECARE ---
CASE MANAGEMENT DISCHARGE SUMMARY PATIENT: DOUGLAS HILLS UNIT: [id number] ADM DATE: 12/19/18 AGE: 53 : 63 SEX: F ROOM/BED: D.2208 AUTHOR: AMELIA MCGOVERN PHYSICIAN: REFERRING PHYSICIAN: MIRANDA WILSON MD DATE OF SERVICE: 12/24/18 Discharge Plan Patient Name: DOUGLAS HILLS Facility: [facility]:[place] : 1965 Planned Disposition: Skilled Nursing Care [facility] Anticipated Discharge Date: Discharge Date: 12/23/2018 Expected LOS: Initial Reviewer: [id number] Initial Review Date: 12/19/2018 Generated: 12/24/18 11:01 am Comments DCP- Discharge Planning Updated by [email or web address]: Dori Young on 12/23/18 1:[address] Patient has discharge orders she will be [facility]. The [facility] will provide transportation. IMM served and explained DCP- Discharge Planning Updated by [email or web address]: Dori Young on 12/20/18 2:[address] Patient Name: DOUGLAS HILLS Admission Status: ER Accout number: [id number] Admission Date: 12-19-2018 : 1965 Admission Diagnosis: Attending: MIRANDA WILSON Current LOS: 1 Anticipated DC Date: Planned Disposition: Skilled Nursing Care [facility] Primary Insurance: [facility] MEDICARE SOLUTIONS Discharge Planning Comments: ATTEMPTED TO SEE PATIENT, BUT SHE WAS ASLEEP. 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 I ANTICIPATE HER TO DISCHARGE BACK TO THE [facility]. SHE HAS HOME O2, NEBULIZER AND A TRILIOGY MACHINE. CM WILL ATTEMPT TO SEE HER AT A LATER TIME WHEN SHE IS AWAKE. CM TO FOLLOW AND ASSIST NEEDED Diagnostic Technologist: Dori Young DCPIA - Discharge Planning Initial Assessment Updated by [email or web address]: Dori Young on 12/20/18 3:11 pm * Facility Name [facility] * ADLs Partial Dependent * Partial ADLs (Assistance needed) Medication Management * Equipment Nebulizer Oxygen Ventilator * Other Equipment TRILOLGY * List name and contact numbers for known caregivers / representatives who currently or will assist patient after discharge: ALMA ALVAREZ * Verbal permission to speak to the caregivers and representatives has been obtained from the patient. N/A * Additional services required to return to the preadmission environment? No * Can the patient safely return to the preadmission environment? Yes * Has this patient been hospitalized within the prior 30 days at any hospital? No Coverage Notice Reviewer: [email or web address] Bayron Young Notice Issued Date-Time: 12/23/2018 14:30 Notice Type: IM Discharge Notice Notice Delivered To: Patient Relationship to Patient: Neon Molder Name: Delivery Method: HAND - Hand Delivered Adrianne Days: Prior Verbal Notification: Recipient Understood Notice: Yes Recipient Signature: Yes Med Rec Note Co-signed by Attending: Coverage Notice Comment: Last DP export: 12/23/18 1:38 pm Patient Name: DOUGLAS HILLS Page 42800 at 1001 All edits/amendments must be made on the electronic document DICTATION DATE: 12/24/18 1001 FILLER BLENDER: CLEMENT 12/24/18 1001 RPT#: [id number] DC DATE:12/23/18 STATUS: DIS IN [facility] [address] [place] [address] END OF REPORT
--- NOTE | 2018-12-24 15:36 | MORECARE ---
CASE MANAGEMENT DISCHARGE SUMMARY PATIENT: DOUGLAS HILLS UNIT: [id number] ADM DATE: 12/19/18 AGE: 53 : 63 SEX: F ROOM/BED: D.2208 AUTHOR: AMELIA MCGOVERN PHYSICIAN: REFERRING PHYSICIAN: MIRANDA WILSON MD DATE OF SERVICE: 12/24/18 Discharge Plan Patient Name: DOUGLAS HILLS Facility: [facility]:[place] : 1965 Planned Disposition: Correction Care [facility] Anticipated Discharge Date: Discharge Date: 12/23/2018 Expected LOS: 0 Initial Reviewer: [email or web address] Initial Review Date: 12/19/2018 Generated: 12/24/18 4:35 pm Comments DCP- Discharge Planning Updated by [email or web address]: Dori Young on 12/23/18 1:[address] Patient has discharge orders she will be [facility] recreation specialist bed. [facility] provide [facility]. IMM served and explained DCP- Discharge Planning Updated by [email or web address]: Dori Young on 12/20/18 2:[address] Patient Name: DOUGLAS HILLS Admission Status: ER Accout number: [id number] Admission Date: 12-19-2018 : 1965 Admission Diagnosis: Attending: MIRANDA WILSON Current LOS: 1 Anticipated DC Date: Planned Disposition: Hydraulic Jack Mechanic Care [facility] Primary Insurance: [facility] MEDICARE SOLUTIONS Discharge Planning Comments: ATTEMPTED TO SEE PATIENT, BUT SHE WAS ASLEEP. 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 I ANTICIPATE HER TO DISCHARGE BACK TO THE [facility]. SHE HAS HOME O2, NEBULIZER AND A TRILIOGY MACHINE. CM WILL ATTEMPT TO SEE HER AT A LATER TIME WHEN SHE IS AWAKE. CM TO FOLLOW AND ASSIST NEEDED Warehouse General Laborer: Dori Young DCPIA - Discharge Planning Initial Assessment Updated by [email or web address]: Dori Young on 12/20/18 3:11 pm * Facility Name [facility] * ADLs Partial Dependent * Partial ADLs (Assistance needed) Medication Management * Equipment Nebulizer Oxygen Ventilator * Other Equipment TRILOLGY * List name and contact numbers for known caregivers / representatives who currently or will assist patient after discharge: ALMA ALVAREZ * Verbal permission to speak to the caregivers and representatives has been obtained from the patient. N/A * Additional services required to return to the preadmission environment? No * Can the patient safely return to the preadmission environment? Yes * Has this patient been hospitalized within the prior 30 days at any hospital? No Coverage Notice Reviewer: [email or web address] Bayron Young Notice Issued Date-Time: 12/23/2018 14:30 Notice Type: IM Discharge Notice Notice Delivered To: Patient Relationship to Patient: Lean Sensei Name: Delivery Method: HAND - Hand Delivered Adrianne Days: Prior Verbal Notification: Recipient Understood Notice: Yes Recipient Signature: Yes Med Rec Note Co-signed by Attending: Coverage Notice Comment: Last DP export: 12/24/18 9:01 am Patient Name: DOUGLAS HILLS Page 25036 at 1536 All edits/amendments must be made on the electronic document DICTATION DATE: 12/24/18 1535 PIPE ORGAN MECHANIC APPRENTICE: CLEMENT 12/24/18 1535 RPT#: [id number] DC DATE:12/23/18 STATUS: DIS IN [facility] [address] [place] [address] END OF REPORT
== END 2018-12-23 16:09 | DRG 205 ==
LOC: D.ER 01:23 → D.MS 02:37
PROVIDERS: Emergency Medicine; Family Medicine; ADMIT Emergency Medicine; ATTEND Emergency Medicine
DX: E66.2 Morbid (severe) obesity with alveolar hypoventilation (principal); J96.01 Acute respiratory failure with hypoxia; G93.41 Metabolic encephalopathy; I50.43 Acute on chronic combined systolic (congestive) and diastolic (congestive) heart failure; J96.11 Chronic respiratory failure with hypoxia; Z68.44 Body mass index [BMI] 60.0-69.9, adult; J44.1 Chronic obstructive pulmonary disease with (acute) exacerbation; I11.0 Hypertensive heart disease with heart failure; E66.01 Morbid (severe) obesity due to excess calories; E11.65 Type 2 diabetes mellitus with hyperglycemia; E87.6 Hypokalemia; E78.5 Hyperlipidemia, unspecified

== ENCOUNTER → 2019-02-21 12:22 | Outpatient (CLI) | payer MEDICARE, MEDICAID ==
[2018-12-19 14:26] VITALS: BMI 65.4
[~2019-02-21 12:22] MED LIST changes: +ISOPTO TEARS15 ML EACH EYE; +MAG-OXIDE400 MG PO; +MELATONIN 3 MG1 TAB PO; +MUCINEX600 MG PO; +NITROSTAT0.4 MG SL; +TRAZODONE HCL150 MG PO; +ZOFRAN4 MG PO
== END | disposition home or self-care (01) ==
LOC: D.RAD 12:22
PROVIDERS: ATTEND Legal Medicine
DX: R13.10 Dysphagia, unspecified (principal); J44.9 Chronic obstructive pulmonary disease, unspecified; E03.9 Hypothyroidism, unspecified; E11.9 Type 2 diabetes mellitus without complications

== ENCOUNTER 2019-03-05 01:30 | Emergency (ER) | payer MEDICARE, MEDICAID ==
[~2019-03-05] VITALS: Ht 152.4 cm; Wt 151.4 kg
[2019-03-05 01:43] VITALS: Ht 152.4 cm; Wt 151.4 kg
[2019-03-05 04:50] VITALS: BP 134/63
== END 2019-03-05 04:50 | disposition home or self-care (01) ==
LOC: D.ER 01:30
DX: T14.8XXA Other injury of unspecified body region, initial encounter (principal); W19.XXXA Unspecified fall, initial encounter; M25.552 Pain in left hip; M25.562 Pain in left knee; M25.572 Pain in left ankle and joints of left foot; I11.0 Hypertensive heart disease with heart failure; I50.9 Heart failure, unspecified; E11.9 Type 2 diabetes mellitus without complications; E03.9 Hypothyroidism, unspecified; J44.9 Chronic obstructive pulmonary disease, unspecified

== ENCOUNTER → 2019-04-29 16:30 | Outpatient (CLI) | payer MEDICARE, MEDICAID ==
[2019-03-05 01:43] VITALS: BMI 65.1
[~2019-04-29 16:30] MED LIST changes: +BACTRIM 400/80 MG TA PO; +BUMETANIDE0.5 MG PO; +BUSPAR 15 MG TA15 MG PO; +EPITOL200 MG PO; +FLORANEX / LACT1 TAB PO; +IMODIUM2 MG PO; +LANTUS SOL100 UNIT/1; +MIRALAX17 GM PO; +OPTIVE SENSITI1 EACH EACH EYE; +TEGRETOL200 MG PO; +ZANAFLEX2 M1 PO
== END | disposition home or self-care (01) ==
LOC: D.LABREF 16:30
PROVIDERS: ATTEND Orthopaedic Surgery
DX: M17.11 Unilateral primary osteoarthritis, right knee (principal)

== ENCOUNTER 2019-04-30 23:40 | Inpatient (IN) | payer MEDICARE, MEDICAID ==
[~2019-04-30] VITALS: Ht 152.4 cm; Wt 150.1 kg
--- NOTE | ~2019-04-30 | HEMODYNAMI ---
PATIENT:DOUGLAS HILLS MEDICAL RECORD: [id number] : 63 LOCATION:[facility] D.2309 ADMISSION DATE: 05/01/19 Generatedon:05/03/201917:14 Patient name: DOUGLAS HILLS Patient #: [id number] SSN: : 1965 Date of study: 05/03/2019 Page: Of Hemodynamic Procedure Report Patient Data Patient Demographics Procedure consent was obtained First Name: DOUGLAS Gender: Female Last Name: JEANA : 1965 Middle Initial: J Age: 53 year(s) Patient #: [id number] Race: Additional ID: [id number] Contact details Address: [address] [place] [address] rd State: [place] City: [facility] Zip code: [address] Admission Admission Data Admission Date: 05/01/2019 Admission Time: 1:23 Room #: D.2309 Procedure Procedure Types Cath Procedure Peripheral Cath Diagnostic Procedure Miscellaneous Central Line Placement Procedure Description Procedure Date Procedure Date: 05/03/2019 Procedure Start Time: 16:48 Procedure End Time: 17:13 Procedure Staff Name Function Wilder Neely MD Performing Physician TAWANNA YEE RT Monitor Marsha Mahan RN Nurse Jun Sandhu RT Scrub Procedure Data Cath Procedure Fluoroscopy Diagnostic fluoroscopy Total fluoroscopy Time: 8.2 time: 8.2 min min Diagnostic fluoroscopy Total fluoroscopy dose: 511 dose: 511 mGy mGy Contrast Material Contrast Material Type Amount (ml) Isovue 300 12 Entry Location Entry Primary Successful Side Size Upsize Upsize Entry Closure Succes sful Closure Location (Fr) 1 (Fr) 2 (Fr) Remarks Device Remarks Jugular Left 5 Fr vein Procedure Medications Medication Administration Route Dosage Heparin Flush Bag added to field 1 bags (1000units/500ml NS) Lidocaine 1% added to field 20 Hemodynamics Rest Pre Cath Intra NCS Post Cath Vital Signs Time SPO2 etCO2 NIBP (mmHg) Rhythm Pain Sedation (%) (mmHg) Status Level 16:47:17 100 0 147/74(101) NSR 0 (11) , 10(A) No pain 16:51:35 100 0 135/67(90) NSR 0 (11) , 10(A) No pain 16:55:51 100 0 127/60(106) NSR 0 (11) , 10(A) No pain 17:00:51 100 0 Measuring NSR 0 (11) , 10(A) No pain 17:01:11 100 0 124/36(83) NSR 0 (11) , 10(A) No pain 17:05:31 99 0 129/51(78) NSR 0 (11) , 10(A) No pain 17:09:43 100 0 140/83(104) NSR 0 (11) , 10(A) No pain Medications Time Medication Route Dose Verified Delivered Reason Notes Effe ctiveness by by 16:45:44 Heparin Flush added 1 M J Long M J Long used for Bag to bags MD BAILEY procedure (1000units/500ml field NS) 16:45:57 Lidocaine 1% added 20ml M J Long M J Long for local to vial MD BAILEY anesthetic field Procedure Log Time Note 16:34:35 Masrha Mahan RN sent for patient. Start room use. 16:34:37 Time tracking: Regular hours (M-F 7:00 - 5:00) 16:34:43 Plan of Care:Hemodynamics will remain stable., Cardiac rhythm will remain stable., Comfort level will be maintained., Respiratory function will remain adequate., Patient/ family verbilizes understanding of procedure., Procedure tolerated without complication., Recovers from procedure without complications.. 16:35:45 Patient received from ICU to IR Alert and oriented. Tansferred to table in Supine position. 16:35:47 Signed procedure consent form obtained from patient. 16:35:48 Pre-procedure instructions explained to patient. 16:35:50 Use device set IR Diagnostic 16:35:52 Tegaderm 4 x 4 (1626W) opened to sterile field. 16:35:53 Sterile Angiographic Pack opened to sterile field. 16:35:54 Bag Decanter () opened to sterile field. 16:43:12 Left neck area was prepped with chlora-prep and draped in sterile fashion 16:43:15 --------ALL STOP TIME OUT------ 16:43:22 Final Timeout: patient, procedure, and site verified with staff and physician. All members of the team are in agreement. 16:43:25 Sharps counted by scrub and verified by R.N. 16:44:48 GLIDE WIRE ANGLE 180cm ([id number]) opened to sterile field. 16:45:44 Heparin Flush Bag (1000units/500ml NS) 1 bags added to field was administered by Wilder Neely MD; used for procedure; Verbal order read back and verified. 16:45:57 Lidocaine 1% 20ml vial added to field was administered by Wilder Neely MD; for local anesthetic; Verbal order read back and verified. 16:45:59 Vital chart was started 16:46:22 Procedure started. 16:46:22 Full Disclosure recording started 16:48:46 Local anesthetic to left IJ vein with Lidocaine 1% by Wilder Neely MD.INITIAL ACCESS ONLY 16:55:59 ROADRUNNER .035 145 glide wire ([id number]) opened to sterile field. 17:01:29 A 5 Fr sheath was inserted into the Left Jugular vein 17:02:06 GLIDE CATHETER 4FR Straight 65cm (CG412) opened to sterile field. 17:02:32 SHEATH 5FR Farina (IQV729) opened to sterile field. 17:02:32 ELLINGTON 260 wire ([id number]) opened to sterile field. 17:02:33 INFLATOR BasixTOUCH (SR2826) opened to sterile field. 17:02:56 Inflate balloon Inflation number: 1 A Evercross 5 x 4 x 135 Balloon ([id number]) was prepped and advanced across the Undefined1 , then inflated . 17:08:42 Fluoroscopy time 08.20 minutes. 17:08:48 Fluoroscopy dose: 511 mGy 17:08:48 Flurop Dose total: 511 17:08:54 Contrast amount:Isovue 300 12ml. 17:10:21 Procedure ended.(Physican Out) 17:12:59 Insertion/operative site no bleeding no hematoma. 17:13:15 Post procedure instruction explained to patient.Patient verbalizes understanding. 17:13:17 Procedure and supply charges have been captured, reviewed, submitted and are correct. 17:13:21 Vital chart was stopped 17:13:30 Patient transfered to ICU with Bed. 17:13:33 Procedure ended. 17:13:33 Full Disclosure recording stopped Intervention Summary Intervention Notes Time ActionType Lesion and Equipment Used Action# Pressure Duration Attributes 17:02:56 Inflate Undefined1 Evercross 5 x 4 1 0 00:00 balloon x 135 Balloon ([id number]) Device Usage Item Name Manufacture Quantity Catalog Number Hospital Part Current M inimal Lot# / Charge Number Stock Stock Serial# Code Tegaderm 4 x 4 3M 1 1626W 216552 905816 653517 5 (1626W) Sterile Cardinal 1 [id number] 156931 988024 5 Angiographic Health Pack Bag Decanter Microtek 1 2001S 365110 34064 638067 5 (2001S) Medical Inc. GLIDE WIRE Terumo 1 WO5589 420357 146718 769079 5 ANGLE 180cm (PI2594) ROADRUNNER .035 Cook Medical 1 Z63824 172752 844563 450808 5 1674862 145 glide wire (G76038) GLIDE CATHETER Terumo 1 CG413 240989 104635 5 4FR Straight 100cm (CG413) GLIDE CATHETER Terumo 1 CG412 260111 691345 5 4FR Straight 65cm (CG412) SHEATH 5FR Terumo 1 ZEL905 392294 013941 926477 5 Farina (ICM305) ELLINGTON 260 wire Cook Medical 1 M35263 340800 78244 587564 5 0680762 (A99555) INFLATOR Merit 1 NX8342 442670 632299 195738 5 BasApplied X-rad Technology (GE1628) Evercross 5 x 4 Medtronic 1 [id number] 056505 928717 595623 5 x 135 Balloon ([id number]) Signature Audit [place] Stage Time Signature Unsigned Intra-Procedure 05/03/2019 TAWANNA YEE RT 5:13:56 PM (R) [facility] [address] [place] [address]
[~2019-04-30 23:40] MED LIST changes: -BACTRIM 400/80 MG TA PO; -BUMETANIDE0.5 MG PO; -BUSPAR 15 MG TA15 MG PO; -EPITOL200 MG PO; -FLORANEX / LACT1 TAB PO; -IMODIUM2 MG PO; -LANTUS SOL100 UNIT/1; -MIRALAX17 GM PO; -OPTIVE SENSITI1 EACH EACH EYE; -TEGRETOL200 MG PO; -ZANAFLEX2 M1 PO
[2019-05-01] VITALS (23 sets, daily range): BP systolic 92–150; BP diastolic 48–90; BMI 67.9; BMI 67.7
[2019-05-01 00:44] LABS: BASOPHILS 0.2 % (0-2); EOSINOPHILS 1.4 % (0-7); HEMATOCRIT 32.9 % (36.0-48.0); HEMOGLOBIN 8.6 g/dL (12-16); LYMPHOCYTES 8.7 % (15-50); MCH 22.2 pg (26.0-34.0); MCHC 26.1 g/dL (31.0-37.0); MCV 84.8 fL (80.0-100.0); MEAN PLATELET VOLUME 8.9 fL (7.4-10.4); MONOCYTES 8.3 % (2-11); NEUTROPHILS 80.4 % (40-80); PLATELET COUNT 251 10x3/uL (130-400); RBC 3.88 10x6/uL (4.00-5.40); RDW 17.1 % (11.5-14.5); WBC 13.5 10x3/uL (4.8-10.8)
[2019-05-01 00:53] LABS: ALBUMIN 3.2 g/dL (3.4-5.0); ALKALINE PHOSPHATASE 92 U/L (46-116); ALT (SGPT) 14 U/L (10-68); BILIRUBIN - TOTAL 0.22 mg/dL (0.2-1.3); CALC OSMOLALITY 296 mosm/kg (275-300); CHLORIDE - SERUM 98 mmol/L (98-107); CREATININE - SERUM 1.1 mg/dL (0.6-1.3); GLUCOSE 133 mg/dL (74-106); POTASSIUM - SERUM 3.8 mmol/L (3.5-5.1); PROTEIN - SERUM 7.7 g/dL (6.4-8.2); SODIUM 144 mmol/L (136-145); UREA NITROGEN 35 mg/dL (7-18); eGFR NON AFRICAN AMERICAN 55 mL/min (90-120)
[2019-05-01 00:57] LABS: APTT 28.9 SECONDS (22.8-39.4); INR 1.01 (0.85-1.17); PROTIME 12.8 SECONDS (11.6-15.0)
[2019-05-01 01:01] LABS: CARBON DIOXIDE 51.3 mmol/L (21.0-32.0)
[2019-05-01 01:05] LABS: CKMB 1.2 U/L (0.0-3.6); CREATINE KINASE 18 UL (21-215); MAGNESIUM - SERUM 1.8 mg/dL (1.8-2.4); PRO BNP 677 pg/mL (0-125); TROPONIN-I < 0.017 ng/mL (0.000-0.060)
[2019-05-01 04:40] LABS: BASOPHILS 0.2 % (0-2); EOSINOPHILS 0.8 % (0-7); HEMATOCRIT 33.8 % (36.0-48.0); HEMOGLOBIN 8.6 g/dL (12-16); IMMATURE GRANULOCYTES 0.8 % (0-5); LYMPHOCYTES 7.1 % (15-50); MCH 21.7 pg (26.0-34.0); MCHC 25.4 g/dL (31.0-37.0); MCV 85.4 fL (80.0-100.0); MEAN PLATELET VOLUME 8.6 fL (7.4-10.4); MONOCYTES 3.2 % (2-11); NEUTROPHILS 87.9 % (40-80); PLATELET COUNT 235 10x3/uL (130-400); RBC 3.96 10x6/uL (4.00-5.40); WBC 13.3 10x3/uL (4.8-10.8)
[2019-05-01 05:05] LABS: ALBUMIN 3.1 g/dL (3.4-5.0); BILIRUBIN - TOTAL 0.32 mg/dL (0.2-1.3); CALCIUM 8.9 mg/dL (8.5-10.1); CREATININE - SERUM 0.9 mg/dL (0.6-1.3); POTASSIUM - SERUM 3.8 mmol/L (3.5-5.1); PROTEIN - SERUM 7.7 g/dL (6.4-8.2)
[2019-05-01 05:26] LABS: ANION GAP 5.1 mmol/L (8-16); CARBON DIOXIDE 50.7 mmol/L (21.0-32.0)
--- NOTE | 2019-05-01 21:03 | MORECARE ---
CASE MANAGEMENT DISCHARGE SUMMARY PATIENT: DOUGLAS HILLS UNIT: [id number] ADM DATE: 05/01/19 AGE: 53 : 63 SEX: F ROOM/BED: D.2309 AUTHOR: AMELIA MCGOVERN PHYSICIAN: REFERRING PHYSICIAN: LIDIA HECK MD DATE OF SERVICE: 05/01/19 Discharge Plan Patient Name: DOUGLAS HILLS Facility: [facility]:[place] : 1965 Planned Disposition: Nursing Facility J[facility]YN Cert Anticipated Discharge Date: Discharge Date: Expected LOS: Initial Reviewer: [email or web address] Initial Review Date: 05/01/2019 Generated: 05/01/19 10:03 pm DCPIA - Discharge Planning Initial Assessment Updated by [email or web address]: Ginny Saavedra on 05/01/19 9:02 pm * Is the patient Alert and Oriented? Yes * PCP MARIA R * Preadmission Environment [facility] * Facility Name [facility] [phone] * ADLs Partial Dependent * Partial ADLs (Assistance needed) Ambulation Bathing Dressing Eating Medication Management Toileting Transfers * Other Equipment TRILOGY * List name and contact numbers for known caregivers / representatives who currently or will assist patient after discharge: ALMA ALVAREZ - DAUGHTER- [phone], RAMSEY ALVAREZ - DAUGHTER- [phone] * Community resources currently utilized None * Additional services required to return to the preadmission environment? No * Can the patient safely return to the preadmission environment? Yes * Has this patient been hospitalized within the prior 30 days at any hospital? No Patient Name: DOUGLAS HILLS Page 15359 at 2103 All edits/amendments must be made on the electronic document DICTATION DATE: 05/01/192102 CERTIFIED TEACHER ASSISTANT: CLEMENT 05/01/192102 RPT#: [id number] DC DATE: STATUS: ADM IN [facility] [address] [place] [address] END OF REPORT
--- NOTE | 2019-05-01 21:09 | MORECARE ---
CASE MANAGEMENT DISCHARGE SUMMARY PATIENT: DOUGLAS HILLS UNIT: [id number] ADM DATE: 05/01/19 AGE: 53 : 63 SEX: F ROOM/BED: D.2309 AUTHOR: FROILAN,DOC PHYSICIAN: REFERRING PHYSICIAN: LIDIA HECK MD DATE OF SERVICE: 05/01/19 Discharge Plan Patient Name: DOUGLAS HILLS Facility: [facility]:[place] : 1965 Planned Disposition: Nursing Facility JADYN Cert Anticipated Discharge Date: Discharge Date: Expected LOS: Initial Reviewer: [email or web address] Initial Review Date: 05/01/2019 Generated: 05/01/19 10:09 pm Comments DCP- Discharge Planning Updated by [email or web address]: Ginny Saavedra on 05/01/19 8:[address] Patient Name: DOUGLAS HILLS Admission Status: ER Accout number: [id number] Admission Date: 05-01-2019 : 1965 Admission Diagnosis: Attending: LIDIA HECK Current LOS: 1 Anticipated DC Date: Planned Disposition: Nursing Facility [facility] Cert Primary Insurance: [facility] MEDICARE SOLUTIONS Discharge Planning Comments: CM met with patient to complete initial dc planning assessment. CM educated patient on the CM role and verbal consent given by patient to complete assessment. Patient lives at [facility] [phone] At discharge patient plans to return there. Patient denied known discharge needs at this time. CM will continue to follow and will assist as needed with dc plans/needs. International Bank Manager: Ginny Saavedra DCPIA - Discharge Planning Initial Assessment Updated by [email or web address]: Ginny Saavedra on 05/01/19 9:02 pm * Is the patient Alert and Oriented? Yes * PCP MARIA R * Preadmission Environment [facility] * Facility Name [facility] [phone] * ADLs Partial Dependent * Partial ADLs (Assistance needed) Ambulation Bathing Dressing Eating Medication Management Toileting Transfers * Other Equipment TRILOGY * List name and contact numbers for known caregivers / representatives who currently or will assist patient after discharge: ALMA KIM - DAUGHTER- [phone], Linda ALVAREZ - DAUGHTER- [phone] * Community resources currently utilized None * Additional services required to return to the preadmission environment? No * Can the patient safely return to the preadmission environment? Yes * Has this patient been hospitalized within the prior 30 days at any hospital? No Last DP export: 05/01/19 8:03 Patient Name: DOUGLAS HILLS Page 17320 at 210 All edits/amendments must be made on the electronic document DICTATION DATE: 05/01/192108 BRAND DEVELOPMENT MANAGER: CLEMENT 05/01/192108 RPT#: [id number] DC DATE: STATUS: ADM IN [facility] [address] [place] [address] END OF REPORT
[2019-05-02] VITALS (22 sets, daily range): BP systolic 99–141; BP diastolic 42–80
[2019-05-02] MEDS ORDERED: EPITOL200 MG PO (01:07)
[2019-05-02] MEDS ORDERED: BUSPAR 15 MG TA15 MG PO (01:14)
[2019-05-02] MEDS ORDERED: ZANAFLEX2 M1 PO (01:24)
[2019-05-02 03:31] LABS: BASOPHILS 0 % (0-2); EOSINOPHILS 0 % (0-7); HEMATOCRIT 32.4 % (36.0-48.0); HEMOGLOBIN 8.5 g/dL (12-16); IMMATURE GRANULOCYTES 0.9 % (0-5); LYMPHOCYTES 6.4 % (15-50); MCH 21.8 pg (26.0-34.0); MCHC 26.2 g/dL (31.0-37.0); MEAN PLATELET VOLUME 8.6 fL (7.4-10.4); MONOCYTES 9.3 % (2-11); NEUTROPHILS 83.4 % (40-80); PLATELET COUNT 263 10x3/uL (130-400); RDW 16.6 % (11.5-14.5); WBC 11.4 10x3/uL (4.8-10.8)
[2019-05-02 03:48] LABS: MCV 83.1 fL (80.0-100.0)
[2019-05-02 03:50] LABS: CALCIUM 8.9 mg/dL (8.5-10.1); CREATININE - SERUM 1.1 mg/dL (0.6-1.3); MAGNESIUM - SERUM 1.9 mg/dL (1.8-2.4); PHOSPHOROUS 4.5 mg/dL (2.5-4.9)
[2019-05-02 03:56] LABS: ANION GAP 3.3 mmol/L (8-16); CARBON DIOXIDE 49.7 mmol/L (21.0-32.0)
[2019-05-03] VITALS (22 sets, daily range): BP systolic 91–142; BP diastolic 41–95; Ht 152.4 cm; Wt 150.1 kg
[2019-05-03 03:22] LABS: BASOPHILS 0.1 % (0-2); EOSINOPHILS 0 % (0-7); HEMATOCRIT 33.1 % (36.0-48.0); HEMOGLOBIN 8.7 g/dL (12-16); IMMATURE GRANULOCYTES 0.5 % (0-5); LYMPHOCYTES 8.6 % (15-50); MCH 21.8 pg (26.0-34.0); MCHC 26.3 g/dL (31.0-37.0); MEAN PLATELET VOLUME 8.2 fL (7.4-10.4); MONOCYTES 12.6 % (2-11); NEUTROPHILS 78.2 % (40-80); PLATELET COUNT 254 10x3/uL (130-400); RBC 3.99 10x6/uL (4.00-5.40); RDW 16.3 % (11.5-14.5); WBC 12.9 10x3/uL (4.8-10.8)
[2019-05-03 03:48] LABS: CALCIUM 9.3 mg/dL (8.5-10.1); CHLORIDE - SERUM 98 mmol/L (98-107); CREATININE - SERUM 1.1 mg/dL (0.6-1.3); SODIUM 145 mmol/L (136-145); THYROID STIMULATING HORMONE 0.65 uIU/mL (0.36-3.74); UREA NITROGEN 40 mg/dL (7-18); eGFR NON AFRICAN AMERICAN 55 mL/min (90-120)
[2019-05-03 03:50] LABS: CALC OSMOLALITY 295 mosm/kg (275-300); GLUCOSE 42 mg/dL (74-106); POTASSIUM - SERUM 2.6 mmol/L (3.5-5.1)
[2019-05-03 03:51] LABS: CARBON DIOXIDE 50.9 mmol/L (21.0-32.0)
[2019-05-03 09:15] LABS: AMYLASE - SERUM 33 U/L (25-115); LIPASE 116 U/L (73-393)
[2019-05-04] VITALS (24 sets, daily range): BP systolic 82–127; BP diastolic 34–94
[2019-05-04 06:12] LABS: BASOPHILS 0 % (0-2); EOSINOPHILS 0 % (0-7); HEMATOCRIT 32.9 % (36.0-48.0); HEMOGLOBIN 8.8 g/dL (12-16); IMMATURE GRANULOCYTES 0.3 % (0-5); LYMPHOCYTES 3.9 % (15-50); MCH 21.8 pg (26.0-34.0); MCHC 26.7 g/dL (31.0-37.0); MCV 81.4 fL (80.0-100.0); MEAN PLATELET VOLUME 8.5 fL (7.4-10.4); MONOCYTES 2.1 % (2-11); NEUTROPHILS 93.7 % (40-80); PLATELET COUNT 237 10x3/uL (130-400); RBC 4.04 10x6/uL (4.00-5.40); RDW 16.5 % (11.5-14.5); WBC 11.7 10x3/uL (4.8-10.8)
[2019-05-04 06:40] LABS: ANION GAP 7.4 mmol/L (8-16); BILIRUBIN - TOTAL 0.48 mg/dL (0.2-1.3); CALCIUM 9.1 mg/dL (8.5-10.1); CREATININE - SERUM 1.1 mg/dL (0.6-1.3); PHOSPHOROUS 4.2 mg/dL (2.5-4.9); POTASSIUM - SERUM 3.4 mmol/L (3.5-5.1); PROTEIN - SERUM 7.4 g/dL (6.4-8.2)
[2019-05-05] VITALS (9 sets, daily range): BP systolic 107–124; BP diastolic 44–90
[2019-05-05 06:00] LABS: ALBUMIN 3.2 g/dL (3.4-5.0); ANION GAP 8.1 mmol/L (8-16); BASOPHILS 0 % (0-2); BILIRUBIN - TOTAL 0.42 mg/dL (0.2-1.3); CALCIUM 9.5 mg/dL (8.5-10.1); CARBON DIOXIDE 38.2 mmol/L (21.0-32.0); CREATININE - SERUM 1.2 mg/dL (0.6-1.3); EOSINOPHILS 0 % (0-7); HEMATOCRIT 33.3 % (36.0-48.0); HEMOGLOBIN 9.2 g/dL (12-16); IMMATURE GRANULOCYTES 0.3 % (0-5); LYMPHOCYTES 5.4 % (15-50); MAGNESIUM - SERUM 2.4 mg/dL (1.8-2.4); MCH 21.7 pg (26.0-34.0); MCHC 27.6 g/dL (31.0-37.0); MEAN PLATELET VOLUME 8.8 fL (7.4-10.4); NEUTROPHILS 87.3 % (40-80); PHOSPHOROUS 3.9 mg/dL (2.5-4.9); PLATELET COUNT 247 10x3/uL (130-400); POTASSIUM - SERUM 3.3 mmol/L (3.5-5.1); PROTEIN - SERUM 7.6 g/dL (6.4-8.2); RBC 4.23 10x6/uL (4.00-5.40); RDW 15.8 % (11.5-14.5)
[2019-05-05 06:02] LABS: MCV 78.7 fL (80.0-100.0); WBC 15.1 10x3/uL (4.8-10.8)
[2019-05-06] VITALS (7 sets, daily range): BP systolic 106–139; BP diastolic 38–66
[2019-05-06 07:19] LABS: BASOPHILS 0 % (0-2); EOSINOPHILS 0 % (0-7); HEMATOCRIT 32.5 % (36.0-48.0); HEMOGLOBIN 9.1 g/dL (12-16); IMMATURE GRANULOCYTES 0.5 % (0-5); LYMPHOCYTES 4.9 % (15-50); MCV 78.5 fL (80.0-100.0); MEAN PLATELET VOLUME 8.9 fL (7.4-10.4); MONOCYTES 4.9 % (2-11); NEUTROPHILS 89.7 % (40-80); PLATELET COUNT 212 10x3/uL (130-400); RBC 4.14 10x6/uL (4.00-5.40); WBC 14.7 10x3/uL (4.8-10.8)
[2019-05-06 07:40] LABS: ALBUMIN 3.2 g/dL (3.4-5.0); ANION GAP 9.3 mmol/L (8-16); BILIRUBIN - TOTAL 0.23 mg/dL (0.2-1.3); CALCIUM 9.4 mg/dL (8.5-10.1); CREATININE - SERUM 1.1 mg/dL (0.6-1.3); POTASSIUM - SERUM 3.3 mmol/L (3.5-5.1); PROTEIN - SERUM 7.4 g/dL (6.4-8.2)
[2019-05-07 04:30] VITALS: BP 120/57
[2019-05-07 09:23] LABS: BASOPHILS 0.1 % (0-2); EOSINOPHILS 0.3 % (0-7); HEMATOCRIT 32.8 % (36.0-48.0); HEMOGLOBIN 9.1 g/dL (12-16); IMMATURE GRANULOCYTES 0.3 % (0-5); LYMPHOCYTES 8.7 % (15-50); MCH 21.8 pg (26.0-34.0); MCHC 27.7 g/dL (31.0-37.0); MCV 78.5 fL (80.0-100.0); MEAN PLATELET VOLUME 8.8 fL (7.4-10.4); MONOCYTES 8.7 % (2-11); NEUTROPHILS 81.9 % (40-80); PLATELET COUNT 216 10x3/uL (130-400); RBC 4.18 10x6/uL (4.00-5.40); RDW 16.5 % (11.5-14.5); WBC 17.5 10x3/uL (4.8-10.8)
[2019-05-07 09:31] LABS: ANION GAP 10.3 mmol/L (8-16); CALCIUM 8.6 mg/dL (8.5-10.1); CARBON DIOXIDE 34.7 mmol/L (21.0-32.0); MAGNESIUM - SERUM 1.8 mg/dL (1.8-2.4)
[2019-05-07 11:58] VITALS: BP 129/62
[2019-05-07 19:58] VITALS: BP 117/49
[2019-05-07 23:52] VITALS: BP 115/45
[2019-05-08 05:50] VITALS: BP 135/69
[2019-05-08 05:55] LABS: BASOPHILS 0 % (0-2); EOSINOPHILS 1.6 % (0-7); HEMATOCRIT 33.5 % (36.0-48.0); HEMOGLOBIN 9.2 g/dL (12-16); IMMATURE GRANULOCYTES 0.4 % (0-5); LYMPHOCYTES 13.4 % (15-50); MCH 21.7 pg (26.0-34.0); MCHC 27.5 g/dL (31.0-37.0); MCV 79.2 fL (80.0-100.0); MEAN PLATELET VOLUME 9.1 fL (7.4-10.4); NEUTROPHILS 76.6 % (40-80); PLATELET COUNT 245 10x3/uL (130-400); RBC 4.23 10x6/uL (4.00-5.40); RDW 16.8 % (11.5-14.5)
[2019-05-08 06:20] LABS: ANION GAP 10.4 mmol/L (8-16); CALCIUM 8.7 mg/dL (8.5-10.1); CARBON DIOXIDE 35.1 mmol/L (21.0-32.0); POTASSIUM - SERUM 3.5 mmol/L (3.5-5.1)
[2019-05-08 08:00] VITALS: BP 118/61
[2019-05-08 19:30] VITALS: BP 142/70
[2019-05-09 00:39] VITALS: BP 153/62
[2019-05-09 04:50] VITALS: BP 111/64
[2019-05-09 06:40] LABS: BASOPHILS 0 % (0-2); EOSINOPHILS 2.6 % (0-7); HEMATOCRIT 34.3 % (36.0-48.0); HEMOGLOBIN 9.5 g/dL (12-16); IMMATURE GRANULOCYTES 0.5 % (0-5); LYMPHOCYTES 16.1 % (15-50); MCH 21.8 pg (26.0-34.0); MCHC 27.7 g/dL (31.0-37.0); MCV 78.7 fL (80.0-100.0); MEAN PLATELET VOLUME 8.9 fL (7.4-10.4); NEUTROPHILS 71.8 % (40-80); PLATELET COUNT 234 10x3/uL (130-400); RBC 4.36 10x6/uL (4.00-5.40); RDW 16.9 % (11.5-14.5)
[2019-05-09 07:16] LABS: ANION GAP 7.7 mmol/L (8-16); CALCIUM 8.4 mg/dL (8.5-10.1); CARBON DIOXIDE 33.3 mmol/L (21.0-32.0); CREATININE - SERUM 0.9 mg/dL (0.6-1.3)
[2019-05-09 08:29] VITALS: BP 143/81
[2019-05-09 14:53] VITALS: BP 124/65
[2019-05-09 20:00] VITALS: BP 119/64
[2019-05-09 23:44] VITALS: BP 129/62
[2019-05-10 04:21] VITALS: BP 111/67
[2019-05-10] MEDS ORDERED: DOXYCYCLINE HY100 M2 PO (09:49)
--- NOTE | 2019-05-10 11:07 | MORECARE ---
CASE MANAGEMENT DISCHARGE SUMMARY PATIENT: DOUGLAS HILLS UNIT: [id number] ADM DATE: 05/01/19 AGE: 53 : 63 SEX: F ROOM/BED: D.1212 AUTHOR: FROILAN,DOC PHYSICIAN: REFERRING PHYSICIAN: LIDIA HECK MD DATE OF SERVICE: 05/10/19 Discharge Plan Patient Name: DOUGLAS HILLS Facility: [facility]:[place] : 1965 Planned Disposition: Nursing Facility [facility] Cert Anticipated Discharge Date: 05/10/19 Discharge Date: Expected LOS: 9 Initial Reviewer: [id number] Initial Review Date: 05/01/2019 Generated: 05/10/19 12:07 pm DCP- Discharge Planning Updated by [id number]: Ginny Saavedra on 05/01/19 8:[address] Patient Name: DOUGLAS HILLS Admission Status: ER Accout number: [id number] Admission Date: 05-01-2019 : 1965 Admission Diagnosis: Attending: LIDIA HECK Current LOS: 1 Anticipated DC Date: Planned Disposition: Nursing Facility J[facility]YN Cert Primary Insurance: [facility] MEDICARE SOLUTIONS Discharge Planning Comments: CM met with patient to complete initial dc planning assessment. CM educated patient on the CM role and verbal consent given by patient to complete assessment. Patient lives at [facility] [phone] At discharge patient plans to return there. Patient denied known discharge needs at this time. CM will continue to follow and will assist as needed with dc plans/needs. Dialysis Nurse: Ginny Saavedra DCPIA - Discharge Planning Initial Assessment Updated by [id number]: Ginny Saavedra on 05/01/19 9:02 pm * Is the patient Alert and Oriented? Yes * PCP MARIA R * Preadmission Environment Editor [employer] Shelter * Facility Name [facility] [phone] * ADLs Partial Dependent * Partial ADLs (Assistance needed) Ambulation Bathing Dressing Eating Medication Management Toileting Transfers * Other Equipment TRILOGY * List name and contact numbers for known caregivers / representatives who currently or will assist patient after discharge: ALMA ALVAREZ - DAUGHTER- [phone], RAMSEY ALVAREZ - MONET- [phone] * Community resources currently utilized None * Additional services required to return to the preadmission environment? No * Can the patient safely return to the preadmission environment? Yes * Has this patient been hospitalized within the prior 30 days at any hospital? No Coverage Notice Reviewer: [id number] Bayron Uriostegui Notice Issued Date-Time: 05/07/2019 14:32 Notice Type: IM Discharge Notice Notice Delivered To: Patient Relationship to Patient: Lan Manager Name: Delivery Method: HAND - Hand Delivered Adrianne Days: Prior Verbal Notification: Recipient Understood Notice: Yes Recipient Signature: Yes Med Rec Note Co-signed by Attending: Coverage Notice Comment: Last DP export: 05/01/19 8:09 Patient Name: DOUGLAS HILLS Page 33812 at 1107 All edits/amendments must be made on the electronic document DICTATION DATE: 05/10/191105 PRODUCT DESIGN SPECIALIST: CLEMENT 05/10/19 110 RPT#: [id number] DC DATE: STATUS: ADM IN [facility] [address] [place] [address] END OF REPORT
--- NOTE | 2019-05-10 11:14 | MORECARE ---
CASE MANAGEMENT DISCHARGE SUMMARY PATIENT: DOUGLAS HILLS UNIT: [id number] ADM DATE: 05/01/19 AGE: 53 : 63 SEX: F ROOM/BED: D.1212 AUTHOR: FROILAN,DOC PHYSICIAN: REFERRING PHYSICIAN: LIDIA HECK MD DATE OF SERVICE: 05/10/19 Discharge Plan Patient Name: DOUGLAS HILLS Facility: [facility]:[place] : 1965 Planned Disposition: Nursing Facility [facility] Cert Anticipated Discharge Date: 05/10/19 Discharge Date: Expected LOS: 9 Initial Reviewer: [id number] Initial Review Date: 05/01/2019 Generated: 05/10/19 12:13 pm DCP- Discharge Planning Updated by [id number]: Ginny Saavedra on 05/01/19 8:[address] Patient Name: DOUGLAS HILLS Admission Status: ER Accout number: [id number] Admission Date: 05-01-2019 : 1965 Admission Diagnosis: Attending: LIDIA HECK Current LOS: 1 Anticipated DC Date: Planned Disposition: Nursing Facility [facility] Cert Primary Insurance: [facility] MEDICARE SOLUTIONS Discharge Planning Comments: CM met with patient to complete initial dc planning assessment. CM educated patient on the CM role and verbal consent given by patient to complete assessment. Patient lives at [facility] [phone] At discharge patient plans to return there. Patient denied known discharge needs at this time. CM will continue to follow and will assist as needed with dc plans/needs. Home Connect Lpn: Ginny Saavedra DCPIA - Discharge Planning Initial Assessment Updated by [id number]: Ginny Saavedra on 05/01/19 9:02 pm * Is the patient Alert and Oriented? Yes * PCP MARIA R * Preadmission Environment H[employer]head Stock Clerk [employer] * Facility Name [facility] [phone] * ADLs Partial Dependent * Partial ADLs (Assistance needed) Ambulation Bathing Dressing Eating Medication Management Toileting Transfers * Other Equipment TRILOGY * List name and contact numbers for known caregivers / representatives who currently or will assist patient after discharge: ALMA ALVAREZ - DAUGHTER- [phone], RAMSEY ALVAREZ - MONET- [phone] * Community resources currently utilized None * Additional services required to return to the preadmission environment? No * Can the patient safely return to the preadmission environment? Yes * Has this patient been hospitalized within the prior 30 days at any hospital? No Coverage Notice Reviewer: [id number] - Rahel Uriostegui Notice Issued Date-Time: 05/07/2019 14:32 Notice Type: IM Discharge Notice Notice Delivered To: Patient Relationship to Patient: Curb And Gutter Laborer Name: Delivery Method: HAND - Hand Delivered Adrianne Days: Prior Verbal Notification: Recipient Understood Notice: Yes Recipient Signature: Yes Med Rec Note Co-signed by Attending: Coverage Notice Comment: Reviewer: [id number] - Marycruz Webb Notice Issued Date-Time: 05/10/2019 11:12 Notice Type: IM Discharge Notice Notice Delivered To: Patient Relationship to Patient: Self Curb And Gutter Laborer Name: Delivery Method: HAND - Hand Delivered Adrianne Days: Prior Verbal Notification: Recipient Understood Notice: Yes Recipient Signature: Yes Med Rec Note Co-signed by Attending: Coverage Notice Comment: DISCHARGE IMM DISCUSSED AND SERVED. PATIENT HAD NO QUESTIONS OR CONCERNS. SHE IS READY TO RETURN TO THE [facility] export: 05/10/19 10:07 Patient Name: DOUGLAS HILLS Page 56168 at 1114 All edits/amendments must be made on the electronic document DICTATION DATE: 05/10/19 111 LOTUS NOTES ADMINISTRATOR: CLEMENT 05/10/191112 RPT#: [id number] DC DATE: STATUS: ADM IN [facility] [address] [place] [address] END OF REPORT
--- NOTE | 2019-05-10 11:26 | MORECARE ---
CASE MANAGEMENT DISCHARGE SUMMARY PATIENT: DOUGLAS HILLS UNIT: [id number] ADM DATE: 05/01/19 AGE: 53 : 63 SEX: F ROOM/BED: D.1212 AUTHOR: FROILANDOC PHYSICIAN: REFERRING PHYSICIAN: LIDIA HECK MD DATE OF SERVICE: 05/10/19 Discharge Plan Patient Name: DOUGLAS HILLS Facility: [facility]:[place] : 1965 Planned Disposition: Nursing Facility [facility] Cert Anticipated Discharge Date: 05/10/19 Discharge Date: Expected LOS: 9 Initial Reviewer: [id number] Initial Review Date: 05/01/2019 Generated: 05/10/19 12:26 pm Comments DCP- Discharge Planning Updated by [email or web address]: Marycruz Webb on 05/10/19 10:[address] LATE ENTRY 0930 CM NOTIFIED BY CREAM BEATER OF DISCHARGE BACK TO THE [facility] FOR TODAY. TC TO THE [facility] AND SPOKE W/ MITCH. DISCUSSED THE DISCHARGE SUMMARY AND PROVIDED UPDATE. PATIENT CAN RETURN TODAY. CM SPOKE W/ THE PATIENT. DISCHARGE IMM SERVED. LATE ENTRY 1055- SIGNATURE OBTAINED TO ORIGINAL COPY FOR THE PATIENT AND ORIGINAL COPY TO THE CHART. PRIMARY NURSE PROVIDED W/ PHONE NUMBER AND CONTACT NAME FOR REPORT. THE FACILITY WILL PROVIDE TRANSPORTATION. PRIMARY NURSE CALLED REPORT. CHART COPY AND DISCHARGE PAPERWORK PROVIDED. DCP- Discharge Planning Updated by [id number]: Ginny Saavedra on 05/01/19 8:[address] Patient Name: DOUGLAS HILLS Admission Status: ER Accout number: [id number] Admission Date: 05-01-2019 : 1965 Admission Diagnosis: Attending: LIDIA HECK Current LOS: 1 Anticipated DC Date: Planned Disposition: Nursing Facility [facility] Cert Primary Insurance: [facility] MEDICARE SOLUTIONS Discharge Planning Comments: CM met with patient to complete initial dc planning assessment. CM educated patient on the CM role and verbal consent given by patient to complete assessment. Patient lives at The [facility] [phone] At discharge patient plans to return there. Patient denied known discharge needs at this time. CM will continue to follow and will assist as needed with dc plans/needs. Sustainability Project Coordinator: Ginny Saavedra DCPIA - Discharge Planning Initial Assessment Updated by [email or web address]: Ginny Saavedra on 05/01/19 9:02 pm * Is the patient Alert and Oriented? Yes * PCP MARIA R * Preadmission Environment Associate Software Developer [facility] * Facility Name [facility] [phone] * ADLs Partial Dependent * Partial ADLs (Assistance needed) Ambulation Bathing Dressing Eating Medication Management Toileting Transfers * Other Equipment TRILOGY * List name and contact numbers for known caregivers / representatives who currently or will assist patient after discharge: ALMA ALVAREZ - DAUGHTER- [phone], RAMSEY ALVAREZ - DAUGHTER- [phone] * Community resources currently utilized None * Additional services required to return to the preadmission environment? No * Can the patient safely return to the preadmission environment? Yes * Has this patient been hospitalized within the prior 30 days at any hospital? No Coverage Notice Reviewer: [id number] Bayron Uriostegui Notice Issued Date-Time: 05/07/2019 14:32 Notice Type: IM Discharge Notice Notice Delivered To: Patient Relationship to Patient: Fire Fighters Dispatcher Name: Delivery Method: HAND - Hand Delivered Adrianne Days: Prior Verbal Notification: Recipient Understood Notice: Yes Recipient Signature: Yes Med Rec Note Co-signed by Attending: Coverage Notice Comment: Reviewer: [id number] - Marycruz Webb Notice Issued Date-Time: 05/10/2019 11:12 Notice Type: IM Discharge Notice Notice Delivered To: Patient Relationship to Patient: Self Fire Fighters Dispatcher Name: Delivery Method: HAND - Hand Delivered Adrianne Days: Prior Verbal Notification: Recipient Understood Notice: Yes Recipient Signature: Yes Med Rec Note Co-signed by Attending: Coverage Notice Comment: DISCHARGE IMM DISCUSSED AND SERVED. PATIENT HAD NO QUESTIONS OR CONCERNS. SHE IS READY TO RETURN TO THE [facility] export: 05/10/19 10:14 Patient Name: DOUGLAS HILLS Page 06825 at 1126 All edits/amendments must be made on the electronic document DICTATION DATE: 05/10/19 112 NURSING SPECIALIST: CLEMENT 05/10/19 1126 RPT#: [id number] DC DATE: STATUS: ADM IN [facility] [address] [place] [address] END OF REPORT
--- NOTE | 2019-05-12 08:42 | MORECARE ---
CASE MANAGEMENT DISCHARGE SUMMARY PATIENT: DOUGLAS HILLS UNIT: [id number] ADM DATE: 05/01/19 AGE: 53 : 63 SEX: F ROOM/BED: D.1212 AUTHOR: AMELIA MCGOVERN PHYSICIAN: REFERRING PHYSICIAN: LIDIA HECK MD DATE OF SERVICE: 05/12/19 Discharge Plan Patient Name: DOUGLAS HILLS Facility: [facility]:[place] : 1965 Planned Disposition: Nursing Facility [facility] Cert Anticipated Discharge Date: 05/10/19 Discharge Date: 05/10/2019 Expected LOS: 9 Initial Reviewer: [email or web address] Initial Review Date: 05/01/2019 Generated: 05/12/19 9:41 am Comments DCP- Discharge Planning Updated by [id number]: Marycruz Webb on 05/10/19 10:[address] LATE ENTRY 0930 CM NOTIFIED BY BUILDING MAINTENANCE WORKER OF DISCHARGE BACK TO THE [facility] FOR TODAY. TC TO THE [facility] AND SPOKE W/ MITCH. DISCUSSED THE DISCHARGE SUMMARY AND PROVIDED UPDATE. PATIENT CAN RETURN TODAY. CM SPOKE W/ THE PATIENT. DISCHARGE IMM SERVED. LATE ENTRY 1055- SIGNATURE OBTAINED TO ORIGINAL COPY FOR THE PATIENT AND ORIGINAL COPY TO THE CHART. PRIMARY NURSE PROVIDED W/ PHONE NUMBER AND CONTACT NAME FOR REPORT. THE FACILITY WILL PROVIDE TRANSPORTATION. PRIMARY NURSE CALLED REPORT. CHART COPY AND DISCHARGE PAPERWORK PROVIDED. DCP- Discharge Planning Updated by [id number]: Ginny Saavedra on 05/01/19 8:[address] Patient Name: DOUGLAS HILLS Admission Status: ER Accout number: [id number] Admission Date: 05-01-2019 : 1965 Admission Diagnosis: Attending: LIDIA HECK Current LOS: 1 Anticipated DC Date: Planned Disposition: Nursing Facility [facility] Cert Primary Insurance: [facility] MEDICARE SOLUTIONS Discharge Planning Comments: CM met with patient to complete initial dc planning assessment. CM educated patient on the CM role and verbal consent given by patient to complete assessment. Patient lives at The [facility] [phone] At discharge patient plans to return there. Patient denied known discharge needs at this time. CM will continue to follow and will assist as needed with dc plans/needs. Clinical Study Manager: Ginny Saavedra DCPIA - Discharge Planning Initial Assessment Updated by [id number]: Ginny Saavedra on 05/01/19 9:02 pm * Is the patient Alert and Oriented? Yes * PCP MARIA R * Preadmission Environment Retirement Half-Way * Facility Name [facility] [phone] * ADLs Partial Dependent * Partial ADLs (Assistance needed) Ambulation Bathing Dressing Eating Medication Management Toileting Transfers * Other Equipment TRILOGY * List name and contact numbers for known caregivers / representatives who currently or will assist patient after discharge: ALMA ALVAREZ - DAUGHTER- [phone], RAMSEY ALVAREZ - DAUGHTER- [phone] * Community resources currently utilized None * Additional services required to return to the preadmission environment? No * Can the patient safely return to the preadmission environment? Yes * Has this patient been hospitalized within the prior 30 days at any hospital? No Coverage Notice Reviewer: [id number] Bayron Uriostegui Notice Issued Date-Time: 05/07/2019 14:32 Notice Type: IM Discharge Notice Notice Delivered To: Patient Relationship to Patient: Actuarial Trainee Name: Delivery Method: HAND - Hand Delivered Adrianne Days: Prior Verbal Notification: Recipient Understood Notice: Yes Recipient Signature: Yes Med Rec Note Co-signed by Attending: Coverage Notice Comment: Reviewer: [id number] - Marycruz Webb Notice Issued Date-Time: 05/10/2019 11:12 Notice Type: IM Discharge Notice Notice Delivered To: Patient Relationship to Patient: Self Actuarial Trainee Name: Delivery Method: HAND - Hand Delivered Adrianne Days: Prior Verbal Notification: Recipient Understood Notice: Yes Recipient Signature: Yes Med Rec Note Co-signed by Attending: Coverage Notice Comment: DISCHARGE IMM DISCUSSED AND SERVED. PATIENT HAD NO QUESTIONS OR CONCERNS. SHE IS READY TO RETURN TO THE [facility] export: 05/10/19 10:26 Patient Name: DOUGLAS HILLS Page 32002 at 0842 All edits/amendments must be made on the electronic document DICTATION DATE: 05/12/19840 TYPEWRITER MECHANIC: CLEMENT 05/12/19840 RPT#: [id number] DC DATE:05/10/19 STATUS: DIS IN [facility] [address] [place] [address] END OF REPORT
== END 2019-05-10 15:29 | DRG 193 ==
LOC: D.ER 23:40 → D.ICU 05-01 01:23 → D.M3 05-05 14:55
PROVIDERS: Emergency Medicine; Family Medicine; Internal Medicine Pulmonary Disease; Radiology Vascular & Interventional Radiology; ADMIT Legal Medicine; ATTEND Legal Medicine
PROC: B5141ZZ Fluoroscopy of Left Jugular Veins using Low Osmolar Contrast (ICD-10-PCS; 2019-05-03)
PROC: 05HN33Z Insertion of Infusion Device into Left Internal Jugular Vein, Percutaneous Approach (ICD-10-PCS; principal; 2019-05-03 16:41)
DX: J18.9 Pneumonia, unspecified organism (principal); J96.22 Acute and chronic respiratory failure with hypercapnia; I50.33 Acute on chronic diastolic (congestive) heart failure; J96.21 Acute and chronic respiratory failure with hypoxia; J44.1 Chronic obstructive pulmonary disease with (acute) exacerbation; E66.2 Morbid (severe) obesity with alveolar hypoventilation; Z68.44 Body mass index [BMI] 60.0-69.9, adult; E87.2 Acidosis; Y95 Nosocomial condition; I11.0 Hypertensive heart disease with heart failure; E11.40 Type 2 diabetes mellitus with diabetic neuropathy, unspecified; K21.9 Gastro-esophageal reflux disease without esophagitis; R53.81 Other malaise; E03.9 Hypothyroidism, unspecified; E78.5 Hyperlipidemia, unspecified; D50.9 Iron deficiency anemia, unspecified

== ENCOUNTER 2019-05-21 03:23 | Inpatient (IN) | payer MEDICARE, MEDICAID ==
[~2019-05-21] VITALS: Ht 152.4 cm; Wt 136.1 kg
[~2019-05-21 03:23] MED LIST changes: +BUSPAR 15 MG TA15 MG PO; +EPITOL200 MG PO; +ZANAFLEX2 M1 PO
[2019-05-21 04:28] LABS: BASOPHILS 0.1 % (0-2); EOSINOPHILS 3.4 % (0-7); HEMATOCRIT 30.4 % (36.0-48.0); HEMOGLOBIN 8.2 g/dL (12-16); IMMATURE GRANULOCYTES 0.5 % (0-5); LYMPHOCYTES 14.4 % (15-50); MCH 22.5 pg (26.0-34.0); MCV 83.3 fL (80.0-100.0); MEAN PLATELET VOLUME 8.5 fL (7.4-10.4); MONOCYTES 7.2 % (2-11); NEUTROPHILS 74.4 % (40-80); PLATELET COUNT 207 10x3/uL (130-400); RBC 3.65 10x6/uL (4.00-5.40); RDW 17.4 % (11.5-14.5)
[2019-05-21 04:42] LABS: APTT 29.2 SECONDS (22.8-39.4); INR 1.01 (0.85-1.17); PROTIME 12.8 SECONDS (11.6-15.0)
[2019-05-21 04:53] LABS: CALC OSMOLALITY 286 mosm/kg (275-300); CALCIUM 9.3 mg/dL (8.5-10.1); CHLORIDE - SERUM 93 mmol/L (98-107); CREATININE - SERUM 0.9 mg/dL (0.6-1.3); GLUCOSE 87 mg/dL (74-106); POTASSIUM - SERUM 3.1 mmol/L (3.5-5.1); SODIUM 143 mmol/L (136-145); UREA NITROGEN 20 mg/dL (7-18); eGFR NON AFRICAN AMERICAN 69 mL/min (90-120)
[2019-05-21 04:57] LABS: CARBON DIOXIDE 48.8 mmol/L (21.0-32.0)
[2019-05-21 04:58] LABS: ALBUMIN 2.8 g/dL (3.4-5.0); ALKALINE PHOSPHATASE 75 U/L (46-116); ALT (SGPT) 16 U/L (10-68); BILIRUBIN - TOTAL 0.31 mg/dL (0.2-1.3); CKMB 0.2 U/L (0.0-3.6); CREATINE KINASE 13 UL (21-215); PRO BNP 315 pg/mL (0-125); PROTEIN - SERUM 7.1 g/dL (6.4-8.2); TROPONIN-I < 0.017 ng/mL (0.000-0.060)
[2019-05-21 05:50] VITALS: BP 104/55
[2019-05-21] MEDS ORDERED: ISOPTO TEARS15 ML EACH EYE (06:00)
[2019-05-21] MEDS ORDERED: TEGRETOL200 MG PO (06:08)
[2019-05-21] MEDS ORDERED: OPTIVE SENSITI1 EACH EACH EYE (06:22)
[2019-05-21 08:46] VITALS: BP 105/50
--- NOTE | 2019-05-21 11:38 | NUR ---
PT ANSWERS ORIENTATION QUESTIONS BUT STILL SEEMS CONFUSED WHEN TRYING TO ANSWER OTHER QUESTIONS. BREATH SOUNDS DIMINISHED TO LOWER LOBES, 6L O2 PER NC. IV TO LEFT CHEST, SALINE LOCKED. PT REPORTING PAIN IN RIGHT UPPER QUADRANT, 8/, WILL MONITOR. BED LOW, CALL LIGHT IN REACH. LINENS CHANGED. NO OTHER NEEDS AT THIS TIME.
[2019-05-21 12:09] VITALS: Ht 152.4 cm; Wt 136.1 kg
[2019-05-21 12:10] VITALS: BP 112/47
[2019-05-21 16:35] VITALS: BP 113/40
--- NOTE | 2019-05-21 17:05 | MORECARE ---
CASE MANAGEMENT DISCHARGE SUMMARY PATIENT: DOUGLAS HILLS UNIT: [id number] ADM DATE: 05/21/19 AGE: 53 : 63 SEX: F ROOM/BED: D.2229 AUTHOR: FROILAN,DOC PHYSICIAN: REFERRING PHYSICIAN: JEAN CLAUDE PEDRAZA DO DATE OF SERVICE: 05/21/19 Discharge Plan Patient Name: DOUGLAS HILLS Facility: [facility]:[place] : 1965 Planned Disposition: Nursing Facility [facility] Cert Anticipated Discharge Date: Discharge Date: Expected LOS: Initial Reviewer: [email or web address] Initial Review Date: 05/21/2019 Generated: 05/21/19 6:05 pm Comments DCP- Discharge Planning Updated by [id number]: Thelma Yusuf on 05/21/19 4:[address] Patient Name: DOUGLAS HILLS Admission Status: ER Accout number: [id number] Admission Date: 05-21-2019 : 1965 Admission Diagnosis: Attending: JEAN CLAUDE PEDRAZA Current LOS: 1 Anticipated DC Date: Planned Disposition: Nursing Facility [facility] Cert Primary Insurance: [facility] MEDICARE SOLUTIONS Discharge Planning Comments: CM met with patient to complete initial dc planning assessment. CM educated patient on the CM role and verbal consent given by patient to complete assessment. Patient lives at The [facility]. At discharge patient plans to return and feels this is a safe discharge. She states she wears oxygen at 4 liters NC at the halfway and uses her Trilogy at night and sleep. Patient denies known discharge needs at this time. CM will continue to follow and will assist as needed with dc plans/needs. Quality Eng: Thelma Yusuf DCPIA - Discharge Planning Initial Assessment Updated by [id number]: Thelma Yusuf on 05/21/19 4:57 pm * Is the patient Alert and Oriented? Yes * How many steps to enter\exit or inside your home? 0/0 * PCP Dr. Albert * Pharmacy [facility] * Preadmission Environment Correction Custodial * Facility Name [facility] * ADLs Partial Dependent * Partial ADLs (Assistance needed) Ambulation Bathing Dressing Medication Management Toileting Transfers * Equipment Other * Other Equipment Oxygen 24/7 4 liters NC Trilogy * List name and contact numbers for known caregivers / representatives who currently or will assist patient after discharge: [facility] - [phone] or [phone] [facility] - [phone] * Verbal permission to speak to the caregivers and representatives has been obtained from the patient. Yes * Community resources currently utilized None * Additional services required to return to the preadmission environment? No * Can the patient safely return to the preadmission environment? Yes * Has this patient been hospitalized within the prior 30 days at any hospital? Yes Coverage Notice Reviewer: [id number] Bayron Yusuf Notice Issued Date-Time: 05/21/2019 14:30 Notice Type: Medicare Outpatient Observation Notice Notice Delivered To: Patient Relationship to Patient: Self Servicenow Administrator Name: Delivery Method: HAND - Hand Delivered Adrianne Days: Prior Verbal Notification: Recipient Understood Notice: Yes Recipient Signature: Yes Med Rec Note Co-signed by Attending: Coverage Notice Comment: [place] EXPLAINED, SIGNED, GIVEN, COPY PLACED IN MR Patient Name: DOUGLAS HILLS Page 56629 at 1705 All edits/amendments must be made on the electronic document DICTATION DATE: 05/21/191704 PICKLE PUMPER: CLEMENT 05/21/191704 RPT#: [id number] DC DATE: STATUS: ADM IN [facility] [address] [place] [address] END OF REPORT
--- NOTE | 2019-05-21 19:22 | NUR ---
LYING IN BED ON SIDE, BIPAP ON. IV TO LEFT CHEST IS PATENT TO FLUSH. SHOWS NO S/S OF ANY ACUTE DISTRESS AT THIS TIME. CALL BUTTON IN REACH. DENIES ANY PAIN.
[2019-05-21 20:00] VITALS: BP 107/41
[2019-05-22] VITALS: BP 125/58
[2019-05-22 04:00] VITALS: BP 105/45
--- NOTE | 2019-05-22 04:40 | NUR ---
I have reviewed this patient and I concur with the Shift Assessment completed by the Licensed Practical Nurse today this shift.
[2019-05-22 07:23] LABS: ALBUMIN 2.9 g/dL (3.4-5.0); BILIRUBIN - TOTAL 0.34 mg/dL (0.2-1.3); CALCIUM 8.8 mg/dL (8.5-10.1); CREATININE - SERUM 0.9 mg/dL (0.6-1.3); PROTEIN - SERUM 6.9 g/dL (6.4-8.2)
[2019-05-22 07:30] LABS: POTASSIUM - SERUM 4.2 mmol/L (3.5-5.1)
[2019-05-22 07:31] LABS: ANION GAP 12.1 mmol/L (8-16); CARBON DIOXIDE 40.1 mmol/L (21.0-32.0)
[2019-05-22 07:39] LABS: BASOPHILS 0.1 % (0-2); EOSINOPHILS 0 % (0-7); HEMATOCRIT 29.8 % (36.0-48.0); HEMOGLOBIN 8.1 g/dL (12-16); IMMATURE GRANULOCYTES 0.5 % (0-5); LYMPHOCYTES 7.7 % (15-50); MCH 22.4 pg (26.0-34.0); MCHC 27.2 g/dL (31.0-37.0); MCV 82.5 fL (80.0-100.0); MEAN PLATELET VOLUME 8.6 fL (7.4-10.4); MONOCYTES 1.7 % (2-11); PLATELET COUNT 190 10x3/uL (130-400); RBC 3.61 10x6/uL (4.00-5.40); RDW 17.3 % (11.5-14.5); WBC 12.6 10x3/uL (4.8-10.8)
[2019-05-22 08:24] VITALS: BP 108/48
--- NOTE | 2019-05-22 09:00 | NUR ---
ASSESSMENT PER FLOW SHEET. PT IS WITHOUT DISTRESS.CALL LIGHT IN REACH.
[2019-05-22 11:51] VITALS: BP 107/67
--- NOTE | 2019-05-22 15:15 | NUR ---
PT DECLINES STOOL SOFTNER AND SUPPOSITORY. PT STATES SHE WILL TAKE MIRALAX WITH AFTERNOON MEDS.
--- NOTE | 2019-05-22 16:14 | NUR ---
HAS HAD BATH AND BED CHANGE. RESTING ,WITHOUT SIGNS OF DISTRESS.
[2019-05-22 16:29] VITALS: BP 115/59
--- NOTE | 2019-05-22 19:22 | NUR ---
INFORMED CONSTRUCTION PROJECT ASSISTANT STOOL SPECIMEN NEEDED.
--- NOTE | 2019-05-22 19:22 | NUR ---
REMAINS WITHOUT NEEDS,WITHOUT DISTRESS.CONT PLAN OF CARE
--- NOTE | 2019-05-22 19:40 | NUR ---
PT SITTING UP IN BED WITHOUT DISTRESS, AOX4. IV LEFT CHEST, FLUSHES EASILY. O2 6L/NC. HESS DRAINING CLEAR YELLOW URINE. DAY SHIFT INFORMED THIS NURSE PT STILL NEEDED 1 UNIT OF PRBC. WILL GIVE ORDERED. PT DENIES NEEDS. CL IN REACH, WILL CTM
--- NOTE | 2019-05-22 20:00 | NUR ---
BLOOD TRANSFUSION CONSENT SIGNED AT THIS TIME
--- NOTE | 2019-05-22 20:05 | NUR ---
PRBC STARTED AT THIS TIME, VSS.
--- NOTE | 2019-05-22 21:20 | NUR ---
PT GIVEN NORCO FOR PAIN 12/30. HS MEDS GIVEN WITHOUT DIFFICULTY. DENIES OTHER NEEDS. WILL CTM
[2019-05-22 21:27] VITALS: BP 127/48
--- NOTE | 2019-05-22 23:20 | NUR ---
PRBC COMPLETE, VSS.
[2019-05-23 00:42] VITALS: BP 107/45
[2019-05-23 05:26] VITALS: BP 113/63
[2019-05-23 05:27] LABS: BASOPHILS 0 % (0-2); EOSINOPHILS 0.2 % (0-7); HEMOGLOBIN 8.7 g/dL (12-16); IMMATURE GRANULOCYTES 0.5 % (0-5); LYMPHOCYTES 6.2 % (15-50); MCH 22.8 pg (26.0-34.0); MCHC 27.2 g/dL (31.0-37.0); MCV 83.8 fL (80.0-100.0); MEAN PLATELET VOLUME 8.8 fL (7.4-10.4); MONOCYTES 2.2 % (2-11); NEUTROPHILS 90.9 % (40-80); PLATELET COUNT 189 10x3/uL (130-400); RBC 3.82 10x6/uL (4.00-5.40); RDW 17.7 % (11.5-14.5); WBC 10.4 10x3/uL (4.8-10.8)
[2019-05-23 06:24] LABS: ALBUMIN 2.8 g/dL (3.4-5.0); BILIRUBIN - TOTAL 0.3 mg/dL (0.2-1.3); CALCIUM 8.8 mg/dL (8.5-10.1); POTASSIUM - SERUM 3.7 mmol/L (3.5-5.1); PROTEIN - SERUM 7.2 g/dL (6.4-8.2)
[2019-05-23 06:55] LABS: ANION GAP 1.4 mmol/L (8-16)
[2019-05-23 06:56] LABS: CARBON DIOXIDE 47.3 mmol/L (21.0-32.0)
[2019-05-23 08:34] VITALS: BP 99/49
--- NOTE | 2019-05-23 09:55 | NUR ---
ALERT AND ORIENTED X4.SLIGHT DYSPNEA NOTED WITH MINIMAL EXERTION. O2 6L N/C. LUNGS DIMINISHED X4. HRRR WITH TELMETRY.PLEXIBOOTS ON WITH NO S/S OF EDEMA OR PAIN TO BLE NOTED WITH CAP REFILL <3 SEC.nEG. HOMEN SIGN. HESS CATH INTACT WITH CLEAR ISABELLE URINE. IV TO LT. UPPER CHEST. DENIES ANY PAIN OR DISCOMFORT AT THIS TIME. ENCOURAGECD TO USE CALL LIGHT FOR ASSSIT.
--- NOTE | 2019-05-23 12:49 | NUR ---
Nutrition follow-up: Diet changed to ADA consistent CHO due to pt with DMT2 and elevated glucose PO intake 100% of last 3 meals; pt with some nausea, vomiting charted Pt with constipation; laxatives ordered labs reviewed Wt: 300# RDN following.
[2019-05-23 12:52] VITALS: BP 104/48
--- NOTE | 2019-05-23 14:40 | NUR ---
Pt is at risk for skin breakdown due to hx of pressure injuries and decreased mobility. Recommend: -turn/reposition q 2 hours - float heels off bed/pillows -as needed and daily personal care (using calmoseptine cream if perineal redness occurs) -q shift skin assessment Wound care will monitor.
[2019-05-23 15:51] VITALS: BP 144/63
--- NOTE | 2019-05-23 21:30 | NUR ---
AWAKE,ALERT.NO COMPLAITS VOICED. IV TO SHIVANI INTACT WITOUT REDNESS NOTED.O2 @ 6L PER NC ON. NO DISTRESS NOTED. CL IN REACH. DAUGHTER AT BEDSIDE.
[2019-05-23 21:36] VITALS: BP 111/49
[2019-05-24 01:05] VITALS: BP 134/75
--- NOTE | 2019-05-24 04:18 | NUR ---
I have reviewed this patient and I concur with the Shift Assessment completed by the Licensed Practical Nurse today this shift.
[2019-05-24 05:16] VITALS: BP 120/64
[2019-05-24 06:23] LABS: BASOPHILS 0 % (0-2); EOSINOPHILS 0.2 % (0-7); HEMATOCRIT 32.2 % (36.0-48.0); HEMOGLOBIN 8.8 g/dL (12-16); IMMATURE GRANULOCYTES 0.4 % (0-5); LYMPHOCYTES 6.6 % (15-50); MCH 23.1 pg (26.0-34.0); MCHC 27.3 g/dL (31.0-37.0); MCV 84.5 fL (80.0-100.0); MEAN PLATELET VOLUME 8.8 fL (7.4-10.4); MONOCYTES 3.3 % (2-11); NEUTROPHILS 89.5 % (40-80); PLATELET COUNT 204 10x3/uL (130-400); RBC 3.81 10x6/uL (4.00-5.40); RDW 18.1 % (11.5-14.5); WBC 11.3 10x3/uL (4.8-10.8)
[2019-05-24 06:35] LABS: ANION GAP 8.6 mmol/L (8-16); BILIRUBIN - TOTAL 0.29 mg/dL (0.2-1.3); CALCIUM 8.9 mg/dL (8.5-10.1); CARBON DIOXIDE 39.2 mmol/L (21.0-32.0); CREATININE - SERUM 0.9 mg/dL (0.6-1.3); POTASSIUM - SERUM 3.8 mmol/L (3.5-5.1); PROTEIN - SERUM 7.4 g/dL (6.4-8.2)
--- NOTE | 2019-05-24 07:59 | NUR ---
ALERT AND ORIENTED X4 WITH FAMILY PRESENT. TELEMETRY INTACT. IV INTACT TO LT. UPPER CHEST. ABDOMEN OBESE WITH PANNUS WITH SKIN INTACT WITH BOWEL SOUNDS NOTED X4. STATED HAD BM YESTERDAY. O2 6L N/C WITH BREATH SOUNDS DIMINISHED X4. PLEXIBOOTS ON WHILE IN BED. ENCOURAGED TO USE CALL LIGHT FOR ASSIST.
[2019-05-24 14:24] VITALS: BP 123/59
[2019-05-24 19:30] VITALS: BP 114/42
--- NOTE | 2019-05-24 21:50 | NUR ---
RESTING QUEITLY WITH NO DISTRESS NOTED. IV TO RIGHT CHEST INTACT WITHOUT REDNESS OR EDEMA NOTED. RESP UNALBORED. CL IN REACH
--- NOTE | 2019-05-24 23:17 | NUR ---
I have reviewed this patient and I concur with the Shift Assessment completed by the Licensed Practical Nurse today this shift.
[2019-05-25 00:30] VITALS: BP 119/50
[2019-05-25 04:30] VITALS: BP 131/52
[2019-05-25 06:13] LABS: BASOPHILS 0.1 % (0-2); EOSINOPHILS 1.9 % (0-7); HEMATOCRIT 33.7 % (36.0-48.0); IMMATURE GRANULOCYTES 0.2 % (0-5); MCH 22.7 pg (26.0-34.0); MCHC 26.7 g/dL (31.0-37.0); MCV 85.1 fL (80.0-100.0); MEAN PLATELET VOLUME 9.1 fL (7.4-10.4); MONOCYTES 8.8 % (2-11); PLATELET COUNT 195 10x3/uL (130-400); RBC 3.96 10x6/uL (4.00-5.40); RDW 18.7 % (11.5-14.5); WBC 9.5 10x3/uL (4.8-10.8)
[2019-05-25 06:45] LABS: ANION GAP 8.1 mmol/L (8-16); BILIRUBIN - TOTAL 0.23 mg/dL (0.2-1.3); CALCIUM 9.1 mg/dL (8.5-10.1); CREATININE - SERUM 0.9 mg/dL (0.6-1.3); PROTEIN - SERUM 7.2 g/dL (6.4-8.2)
[2019-05-25 06:48] LABS: POTASSIUM - SERUM 3.1 mmol/L (3.5-5.1)
[2019-05-25 08:10] VITALS: BP 115/49
--- NOTE | 2019-05-25 09:00 | NUR ---
ALERT AND ORIENTED X4. O2 6L N/C. BREATH SOUNDS DIMINISHED X4 POSTERIOR AND ENCOURAGED TO GET OOB AND AMBULATE.IV TO LT. CHEST INTACT. TELEMETRY INTACT. DENIES ANY PAIN OR DISCOMFORT AT THIS TIME. ENCOURAGED TO USE CALL LIGHT FOR ASSIST.
[2019-05-25 12:11] VITALS: BP 101/49
[2019-05-25 19:30] VITALS: BP 120/54
--- NOTE | 2019-05-25 21:30 | NUR ---
WATCHING TV WITHOUT COMPLAITNS VOCIED. RESP EVEN AND UNALBORED. NO DISTRESS NOTED. CL IN REACH
[2019-05-26 00:30] VITALS: BP 118/71
[2019-05-26 04:00] VITALS: BP 137/56
--- NOTE | 2019-05-26 04:44 | NUR ---
I have reviewed this patient and I concur with the Shift Assessment completed by the Licensed Practical Nurse today this shift.
[2019-05-26 07:41] LABS: BASOPHILS 0.1 % (0-2); EOSINOPHILS 1.4 % (0-7); HEMATOCRIT 34.6 % (36.0-48.0); HEMOGLOBIN 9.4 g/dL (12-16); IMMATURE GRANULOCYTES 0.2 % (0-5); LYMPHOCYTES 14.9 % (15-50); MCHC 27.2 g/dL (31.0-37.0); MCV 84.8 fL (80.0-100.0); NEUTROPHILS 77.4 % (40-80); RBC 4.08 10x6/uL (4.00-5.40); RDW 19.2 % (11.5-14.5); WBC 11.1 10x3/uL (4.8-10.8)
[2019-05-26 07:59] LABS: ALKALINE PHOSPHATASE 72 U/L (46-116); BILIRUBIN - TOTAL 0.25 mg/dL (0.2-1.3); CALCIUM 9.5 mg/dL (8.5-10.1); CARBON DIOXIDE 37.6 mmol/L (21.0-32.0); CHLORIDE - SERUM 97 mmol/L (98-107); CREATININE - SERUM 0.8 mg/dL (0.6-1.3); POTASSIUM - SERUM 3.2 mmol/L (3.5-5.1); PROTEIN - SERUM 7.1 g/dL (6.4-8.2); SODIUM 142 mmol/L (136-145); UREA NITROGEN 31 mg/dL (7-18); eGFR NON AFRICAN AMERICAN 79 mL/min (90-120)
[2019-05-26 08:07] LABS: ALT (SGPT) 19 U/L (10-68); CALC OSMOLALITY 286 mosm/kg (275-300)
[2019-05-26 08:11] LABS: PLATELET COUNT 235 10x3/uL (130-400)
[2019-05-26 08:12] LABS: GLUCOSE 52 mg/dL (74-106)
--- NOTE | 2019-05-26 08:23 | NUR ---
CALL FROM LAB,BLOOD SUGAR 52 PER LAB FROM AM LAB. RECHECKED BLOOD SUGAR 124.
[2019-05-26 08:51] VITALS: BP 115/50
--- NOTE | 2019-05-26 09:00 | NUR ---
ASSESSMENT PER FLOW SHEET. PT IS WITHOUT DISTRESS.CALL LIGHT IN REACH.
--- NOTE | 2019-05-26 11:30 | NUR ---
HESS DCD ORDERED.150CC OF URINE IN BAG.PT TOLERATED WELL.CATH TIP INTACT
[2019-05-26 12:30] VITALS: BP 106/48
[2019-05-26] MEDS ORDERED: DOXYCYCLINE HY100 M2 PO (13:35)
[2019-05-26] MEDS ORDERED: MIRALAX17 GM PO (13:35)
--- NOTE | 2019-05-26 13:58 | NUR ---
HAS VOIDED APROX 500CC OF URINE. ALSO HAD LARGE SOFT FORMED STOOL.
--- NOTE | 2019-05-26 14:58 | MORECARE ---
CASE MANAGEMENT DISCHARGE SUMMARY PATIENT: DOUGLAS HILLS UNIT: [id number] ADM DATE: 05/21/19 AGE: 53 : 63 SEX: F ROOM/BED: D.2229 AUTHOR: FROILAN,DOC PHYSICIAN: REFERRING PHYSICIAN: JEAN CLAUDE PEDRAZA DO DATE OF SERVICE: 05/26/19 Discharge Plan Patient Name: DOUGLAS HILLS Facility: [facility]:[place] : 1965 Planned Disposition: Nursing Facility [facility] Cert Anticipated Discharge Date: Discharge Date: Expected LOS: Initial Reviewer: [email or web address] Initial Review Date: 05/21/2019 Generated: 05/26/19 3:57 pm Comments DCP- Discharge Planning Updated by [id number]: Thelma Yusuf on 05/21/19 5:[address] Patient Name: DOUGLAS HILLS Admission Status: ER Accout number: [id number] Admission Date: 05-21-2019 : 1965 Admission Diagnosis: Attending: JEAN CLAUDE PEDRAZA Current LOS: 1 Anticipated DC Date: Planned Disposition: Nursing Facility [facility] Cert Primary Insurance: [facility] MEDICARE SOLUTIONS Discharge Planning Comments: CM met with patient to complete initial dc planning assessment. CM educated patient on the CM role and verbal consent given by patient to complete assessment. Patient lives at [facility]. At discharge patient plans to return and feels this is a safe discharge. She states she wears oxygen at 4 liters NC at the intermediate and uses her Trilogy at night and sleep. Patient denies known discharge needs at this time. CM will continue to follow and will assist as needed with dc plans/needs. Location Analyst: Thelma Yusuf DCPIA - Discharge Planning Initial Assessment Updated by [email or web address]: Thelma Yusuf on 05/21/19 4:57 pm * Is the patient Alert and Oriented? Yes * How many steps to enter\exit or inside your home? 0/0 * PCP Dr. Albert * Pharmacy [facility] * Preadmission Environment Transplanter [facility] * Facility Name [facility] * ADLs Partial Dependent * Partial ADLs (Assistance needed) Ambulation Bathing Dressing Medication Management Toileting Transfers * Equipment Other * Other Equipment Oxygen 24/7 4 liters [place] Trilogy * List name and contact numbers for known caregivers / representatives who currently or will assist patient after discharge: Ludy De Leonbanner - [phone] or [phone] [facility] - [phone] * Verbal permission to speak to the caregivers and representatives has been obtained from the patient. Yes * Community resources currently utilized None * Additional services required to return to the preadmission environment? No * Can the patient safely return to the preadmission environment? Yes * Has this patient been hospitalized within the prior 30 days at any hospital? Yes External Providers [facility] Next Contact Date: Service Request Date: Service Type: Resolution: Reviewer: Comments: Coverage Notice Reviewer: [email or web address] Yusuf Notice Issued Date-Time: 05/21/2019 14:30 Notice Type: Medicare Outpatient Observation Notice Notice Delivered To: Patient Relationship to Patient: Self Pipe Organ Builder Name: Delivery Method: HAND - Hand Delivered Adrianne Days: Prior Verbal Notification: Recipient Understood Notice: Yes Recipient Signature: Yes Med Rec Note Co-signed by Attending: Coverage Notice Comment: [place] EXPLAINED, SIGNED, GIVEN, COPY PLACED IN MR Reviewer: [id number] Bayron Yusuf Notice Issued Date-Time: 05/26/2019 12:54 Notice Type: IM Discharge Notice Notice Delivered To: Patient Relationship to Patient: Self Pipe Organ Builder Name: Delivery Method: HAND - Hand Delivered Adrianne Days: Prior Verbal Notification: Recipient Understood Notice: Yes Recipient Signature: Yes Med Rec Note Co-signed by Attending: Coverage Notice Comment: IMM explained, signed, given, copy placed in MR Last DP export: 05/21/19 5:05 Patient Name: DOUGLAS HILLS Page 83405 at 1458 All edits/amendments must be made on the electronic document DICTATION DATE: 05/26/191456 NEWSPAPER CARRIER: CLEMENT 05/26/191456 RPT#: [id number] PR DATE: STATUS: ADM IN [facility] [address] [place] [address] END OF REPORT
--- NOTE | 2019-05-26 15:13 | MORECARE ---
CASE MANAGEMENT DISCHARGE SUMMARY PATIENT: DOUGLAS HILLS UNIT: [id number] ADM DATE: 05/21/19 AGE: 53 : 63 SEX: F ROOM/BED: D.2229 AUTHOR: AMELIA MCGOVERN PHYSICIAN: REFERRING PHYSICIAN: JEAN CLAUDE PEDRAZA DO DATE OF SERVICE: 05/26/19 Discharge Plan Patient Name: DOUGLAS HILLS Facility: [facility] : 1965 Planned Disposition: Nursing Facility [facility] Cert Anticipated Discharge Date: Discharge Date: Expected LOS: Initial Reviewer: [email or web address] Initial Review Date: 05/21/2019 Generated: 05/26/19 4:13 pm Comments DCP- Discharge Planning Updated by [email or web address]: Thelma Yusuf on 05/26/19 2:[address] Patient Name: DOUGLAS HILLS Encounter No: [id number] : 1965 Primary Insurance: [facility] MEDICARE SOLUTIONS Anticipated DC Date: Planned Disposition: Nursing Facility [facility] Cert External Planned Provider: : DCP follow-up note: Patient and family in agreement with discharge plan. No changes to plan. I spoke with Ludy and clinical faxed. She will be going to a intermediate (Medicaid) bed to [facility]. Case management will follow and assist as needed. Thelma Yusuf DCP- Discharge Planning Updated by [email or web address]: Thelma Yusuf on 05/21/19 5:[address] Patient Name: DOUGLAS HILLS Admission Status: ER Accout number: [id number] Admission Date: 05-21-2019 : 1965 Admission Diagnosis: Attending: JEAN CLAUDE PEDRAZA Current LOS: 1 Anticipated DC Date: Planned Disposition: Nursing Facility [facility] Cert Primary Insurance: [facility] MEDICARE SOLUTIONS Discharge Planning Comments: CM met with patient to complete initial dc planning assessment. CM educated patient on the CM role and verbal consent given by patient to complete assessment. Patient lives at [facility]. At discharge patient plans to return and feels this is a safe discharge. She states she wears oxygen at 4 liters NC at the half-way and uses her Trilogy at night and sleep. Patient denies known discharge needs at this time. CM will continue to follow and will assist as needed with dc plans/needs. Fringe Weaver: Thelma Yusuf DCPIA - Discharge Planning Initial Assessment Updated by [email or web address]: Thelma Yusuf on 05/21/19 4:57 pm * Is the patient Alert and Oriented? Yes * How many steps to enter\exit or inside your home? 0/0 * PCP Dr. Albert * Pharmacy [facility] * Preadmission Environment [facility] * Facility Name [facility] * ADLs Partial Dependent * Partial ADLs (Assistance needed) Ambulation Bathing Dressing Medication Management Toileting Transfers * Equipment Other * Other Equipment Oxygen 24/7 4 liters [place] Trilogy * List name and contact numbers for known caregivers / representatives who currently or will assist patient after discharge: Ludy Fernandes [phone] or [phone] [facility] - [phone] * Verbal permission to speak to the caregivers and representatives has been obtained from the patient. Yes * Community resources currently utilized None * Additional services required to return to the preadmission environment? No * Can the patient safely return to the preadmission environment? Yes * Has this patient been hospitalized within the prior 30 days at any hospital? Yes Coverage Notice Reviewer: [id number] Bayron Yusuf Notice Issued Date-Time: 05/21/2019 14:30 Notice Type: Medicare Outpatient Observation Notice Notice Delivered To: Patient Relationship to Patient: Self Early Childhood Teacher Name: Delivery Method: HAND - Hand Delivered Adrianne Days: Prior Verbal Notification: Recipient Understood Notice: Yes Recipient Signature: Yes Med Rec Note Co-signed by Attending: Coverage Notice Comment: LAURIE EXPLAINED, SIGNED, GIVEN, COPY PLACED IN MR Reviewer: [id number] Bayron Yusuf Notice Issued Date-Time: 05/26/2019 12:54 Notice Type: IM Discharge Notice Notice Delivered To: Patient Relationship to Patient: Self Early Childhood Teacher Name: Delivery Method: HAND - Hand Delivered Adrianne Days: Prior Verbal Notification: Recipient Understood Notice: Yes Recipient Signature: Yes Med Rec Note Co-signed by Attending: Coverage Notice Comment: IMM explained, signed, given, copy placed in MR Last DP export: 05/26/19 1:58 p Patient Name: DOUGLAS HILLS Page 85802 at 1513 All edits/amendments must be made on the electronic document DICTATION DATE: 05/26/191511 STRINGING MACHINE TENDER: CLEMENT 05/26/191511 RPT#: [id number] [place] DATE: STATUS: ADM IN [facility] [address] [place] [address] END OF REPORT
--- NOTE | 2019-05-26 16:22 | NUR ---
REPORT TO JERROD,SPOKE WITH TANYA JOAQUIN
--- NOTE | 2019-05-26 16:41 | NUR ---
IV DCD WITH CATH TIP INTACT.DISCHARGE INSTRUCTIONS,STATES UNDERSTANDING.
--- NOTE | 2019-05-26 17:53 | NUR ---
LEFT UNIT VIA WHEELCHAIR FOR TRANSPORT TO [facility]
--- NOTE | 2019-05-26 17:54 | NUR ---
WAS UNABLE TO OBTAIN URINE DUE TO MULTIPLE LOOSE STOOLS
--- NOTE | 2019-05-29 09:35 | MORECARE ---
CASE MANAGEMENT DISCHARGE SUMMARY PATIENT: DOUGLAS HILLS UNIT: [id number] ADM DATE: 05/21/19 AGE: 53 : 63 SEX: F ROOM/BED: D.2229 AUTHOR: AMELIA MCGOVERN PHYSICIAN: REFERRING PHYSICIAN: JEAN CLAUDE PEDRAZA DO DATE OF SERVICE: 05/29/19 Discharge Plan Patient Name: DOUGLAS HILLS Facility: [facility]:[place] : 1965 Planned Disposition: Nursing Facility [facility] Cert Anticipated Discharge Date: Discharge Date: 05/26/2019 Expected LOS: 0 Initial Reviewer: [email or web address] Initial Review Date: 05/21/2019 Generated: 05/29/19 10:35 am Comments DCP- Discharge Planning Updated by [id number]: Thelma Yusuf on 05/26/19 2:[address] Patient Name: DOUGLAS HILLS Encounter No: [id number] : 1965 Primary Insurance: [employer] MEDICARE SOLUTIONS Anticipated DC Date: Planned Disposition: Nursing Facility [facility] Cert External Planned Provider: : DCP follow-up note: Patient and family in agreement with discharge plan. No changes to plan. I spoke with Ludy and clinical faxed. She will be going to a penitentiary (Medicaid) bed to [facility]. Case management will follow and assist as needed. Thelma Yusuf DCP- Discharge Planning Updated by [email or web address]: Thelma Yusuf on 05/21/19 5:[address] Patient Name: DOUGLAS HILLS Admission Status: ER Accout number: [id number] Admission Date: 05-21-2019 : 1965 Admission Diagnosis: Attending: JEAN CLAUDE PEDRAZA Current LOS: 1 Anticipated DC Date: Planned Disposition: Nursing Facility [facility] Cert Primary Insurance: [facility] MEDICARE SOLUTIONS Discharge Planning Comments: CM met with patient to complete initial dc planning assessment. CM educated patient on the CM role and verbal consent given by patient to complete assessment. Patient lives at [facility]. At discharge patient plans to return and feels this is a safe discharge. She states she wears oxygen at 4 liters NC at the half-way and uses her Trilogy at night and sleep. Patient denies known discharge needs at this time. CM will continue to follow and will assist as needed with dc plans/needs. Retail Shift Manager: Thelma Yusuf DCPIA - Discharge Planning Initial Assessment Updated by [id number]: Thelma Yusuf on 05/21/19 4:57 pm * Is the patient Alert and Oriented? Yes * How many steps to enter\exit or inside your home? 0/0 * PCP Dr. Albert * Pharmacy [facility] * Preadmission Environment Floatlight Loading Supervisor Skilled Nursing * Facility Name [facility] * ADLs Partial Dependent * Partial ADLs (Assistance needed) Ambulation Bathing Dressing Medication Management Toileting Transfers * Equipment Other * Other Equipment Oxygen 24/7 4 liters [place] Trilogy * List name and contact numbers for known caregivers / representatives who currently or will assist patient after discharge: Ludy Fernandes [phone] or [phone] [facility] - [phone] * Verbal permission to speak to the caregivers and representatives has been obtained from the patient. Yes * Community resources currently utilized None * Additional services required to return to the preadmission environment? No * Can the patient safely return to the preadmission environment? Yes * Has this patient been hospitalized within the prior 30 days at any hospital? Yes Coverage Notice Reviewer: [id number] Bayron Yusuf Notice Issued Date-Time: 05/21/2019 14:30 Notice Type: Medicare Outpatient Observation Notice Notice Delivered To: Patient Relationship to Patient: Self Front Office Agent Name: Delivery Method: HAND - Hand Delivered Adrianne Days: Prior Verbal Notification: Recipient Understood Notice: Yes Recipient Signature: Yes Med Rec Note Co-signed by Attending: Coverage Notice Comment: LAURIE EXPLAINED, SIGNED, GIVEN, COPY PLACED IN MR Reviewer: [id number] Bayron Yusuf Notice Issued Date-Time: 05/26/2019 12:54 Notice Type: IM Discharge Notice Notice Delivered To: Patient Relationship to Patient: Self Front Office Agent Name: Delivery Method: HAND - Hand Delivered Adrianne Days: Prior Verbal Notification: Recipient Understood Notice: Yes Recipient Signature: Yes Med Rec Note Co-signed by Attending: Coverage Notice Comment: IMM explained, signed, given, copy placed in MR Last DP export: 05/26/19 2:13 p Patient Name: DOUGLAS HILLS Page [phone] Electronically Signed by AMELIA [facility] on 05/29/19 at 0935 All edits/amendments must be made on the electronic document DICTATION DATE: 05/29/19934 KNITTING MACHINE OPERATOR: CLEMENT 05/29/19934 RPT#: [id number] DC DATE:05/26/19 STATUS: DIS IN [facility] [address] [facility] [place] [address] END OF REPORT
== END 2019-05-26 17:54 | DRG 189 ==
LOC: D.ER 03:23 → D.MS 04:17 → OBSVTIME 04:17 → D.MS 04:17
PROVIDERS: Emergency Medicine; ADMIT Family Medicine; ATTEND Family Medicine
PROC: 5A09357 Assistance with Respiratory Ventilation, Less than 24 Consecutive Hours, Continuous Positive Airway Pressure (ICD-10-PCS; principal; 2019-05-21)
DX: J96.22 Acute and chronic respiratory failure with hypercapnia (principal); I50.33 Acute on chronic diastolic (congestive) heart failure; J15.212 Pneumonia due to Methicillin resistant Staphylococcus aureus; J44.0 Chronic obstructive pulmonary disease with (acute) lower respiratory infection; J44.1 Chronic obstructive pulmonary disease with (acute) exacerbation; E66.2 Morbid (severe) obesity with alveolar hypoventilation; Z68.43 Body mass index [BMI] 50.0-59.9, adult; J96.21 Acute and chronic respiratory failure with hypoxia; J20.9 Acute bronchitis, unspecified; E11.65 Type 2 diabetes mellitus with hyperglycemia; E11.21 Type 2 diabetes mellitus with diabetic nephropathy; D50.9 Iron deficiency anemia, unspecified; E03.9 Hypothyroidism, unspecified; I11.0 Hypertensive heart disease with heart failure; E78.5 Hyperlipidemia, unspecified; M19.90 Unspecified osteoarthritis, unspecified site; R53.81 Other malaise; K21.9 Gastro-esophageal reflux disease without esophagitis; Z86.718 Personal history of other venous thrombosis and embolism; D72.829 Elevated white blood cell count, unspecified

== ENCOUNTER 2019-06-07 03:24 | Inpatient (IN) | payer MEDICARE, MEDICAID ==
[~2019-06-07] VITALS: Ht 152.4 cm; Wt 167.5 kg
[~2019-06-07 03:24] MED LIST changes: +MIRALAX17 GM PO; +OPTIVE SENSITI1 EACH EACH EYE; +TEGRETOL200 MG PO
[2019-06-07] MEDS ORDERED: LANTUS SOL100 UNIT/1 (03:37)
[2019-06-07] MEDS ORDERED: IMODIUM2 MG PO (03:38)
[2019-06-07 03:48] LABS: BASOPHILS 0.2 % (0-2); EOSINOPHILS 1.3 % (0-7); HEMATOCRIT 33.4 % (36.0-48.0); HEMOGLOBIN 9.3 g/dL (12-16); IMMATURE GRANULOCYTES 1.4 % (0-5); LYMPHOCYTES 14.1 % (15-50); MCHC 27.8 g/dL (31.0-37.0); MCV 86.3 fL (80.0-100.0); MEAN PLATELET VOLUME 8.9 fL (7.4-10.4); MONOCYTES 7.2 % (2-11); NEUTROPHILS 75.8 % (40-80); PLATELET COUNT 210 10x3/uL (130-400); RBC 3.87 10x6/uL (4.00-5.40); RDW 18.6 % (11.5-14.5); WBC 13.2 10x3/uL (4.8-10.8)
[2019-06-07 03:58] LABS: APTT 24.9 SECONDS (22.8-39.4); INR 1.01 (0.85-1.17); PROTIME 12.8 SECONDS (11.6-15.0)
[2019-06-07 04:02] LABS: CALC OSMOLALITY 290 mosm/kg (275-300); CALCIUM 8.6 mg/dL (8.5-10.1); CHLORIDE - SERUM 96 mmol/L (98-107); CREATININE - SERUM 1.1 mg/dL (0.6-1.3); GLUCOSE 211 mg/dL (74-106); POTASSIUM - SERUM 3.6 mmol/L (3.5-5.1); SODIUM 141 mmol/L (136-145); UREA NITROGEN 25 mg/dL (7-18); eGFR NON AFRICAN AMERICAN 55 mL/min (90-120)
[2019-06-07 04:04] LABS: CARBON DIOXIDE 49.9 mmol/L (21.0-32.0)
[2019-06-07 04:18] LABS: ALBUMIN 2.8 g/dL (3.4-5.0); ALKALINE PHOSPHATASE 99 U/L (46-116); ALT (SGPT) 15 U/L (10-68); BILIRUBIN - TOTAL 0.31 mg/dL (0.2-1.3); CKMB 1.2 U/L (0.0-3.6); CREATINE KINASE 26 UL (21-215); PRO BNP 278 pg/mL (0-125); PROTEIN - SERUM 7.3 g/dL (6.4-8.2)
[2019-06-07 04:20] LABS: TROPONIN-I < 0.017 ng/mL (0.000-0.060)
[2019-06-07 06:44] VITALS: BP 128/49; BMI 67.0
--- NOTE | 2019-06-07 07:00 | NUR ---
ADMISSION ASSESSMENT AND HISTORY COMPLETE.
[2019-06-07 08:45] VITALS: BP 122/48
[2019-06-07 12:32] VITALS: BP 133/82
[2019-06-07 16:43] VITALS: BP 138/73
[2019-06-07 17:42] LABS: APPEARANCE CLEAR (CLEAR); COLOR YELLOW (YELLOW); NITRITE NEGATIVE (NEGATIVE); SPECIFIC GRAVITY 1.005 (1.005-1.020)
[2019-06-07 17:43] LABS: BILIRUBIN NEGATIVE (NEGATIVE); GLUCOSE NEGATIVE (NEGATIVE); KETONE NEGATIVE (NEGATIVE); PROTEIN 2+ mg/dL (NEGATIVE); UROBILINOGEN NORMAL (NORMAL)
[2019-06-07 17:47] LABS: RED CELLS - URINE 0-5 /hpf (0-5)
[2019-06-07 17:48] LABS: BACTERIA FEW /hpf (NEGATIVE); EPITHELIAL CELLS 0-5 /hpf (0-5)
--- NOTE | 2019-06-07 19:50 | NUR ---
DROWSY. CONFUSED. ORIENTED TO SELF ONLY. C/O PAIN IN BACK. MEDICATED WITH NORCO BY OFFGOING NURSE. CL IN REACH.
[2019-06-07 19:57] VITALS: BP 93/41
--- NOTE | 2019-06-07 20:05 | NUR ---
LYING IN BED. CONFUSED AND DROWSY. INVOLUNTARY JERKING MOVEMENTS NOTED TO UPPER EXTREMITIES. RESP LABORED, IRREG. O2 @ 5LNC. TELEMETRY SHOWS ST WITH RATE OF 102. DIFF ANSWERING QUESTIONS. STATES "OKAY" FREQUENTLY. 1+ EDEMA NOTED TO BLE. HESS CATH PATENT AND DRAINING CLEAR YELLOW URINE. SALINE LOCK NOTED TO LT CHEST/AXILLA REGION. SR ELEVATED X2. CL IN REACH.
--- NOTE | 2019-06-07 21:46 | NUR ---
DIFF FOLLOWING COMMANDS DURING MED PASS. MEDS HAD TO BED CRUSHED. ABLE TO DRINK WITHOUT DIFF BUT HELD MEDS ON TONGUE. RESP LABORED. PLACED ON BIPAP AT THIS TIME.
--- NOTE | 2019-06-07 22:35 | NUR ---
DROWSY. BIPAP IN USE. UNABLE TO TAKE PO MEDS AT THIS TIME.
[2019-06-08] VITALS: BP 111/60
--- NOTE | 2019-06-08 01:49 | NUR ---
WOKE UP REQUESTING WATER. REQUEST GRANTED. MORE ALERT. ORIENTED TO SELF, PLACE AND TIME BUT CONFUSED TO SITUATION. REMAINS OF BIPAP. CL IN REACH.
[2019-06-08 04:00] VITALS: BP 124/74
--- NOTE | 2019-06-08 04:17 | NUR ---
RT IN ROOM DOING ABGS. PT MORE ALERT, LAUGHING AND TALKING. ORIENTED X4 NOW. MUCH IMPROVED SINCE START OF SHIFT. BIPAP STILL IN USE.
--- NOTE | 2019-06-08 05:53 | NUR ---
MUCH MORE ALERT THIS MORNING. TOOK MEDS WITHOUT DIFF.
[2019-06-08 06:37] LABS: BASOPHILS 0 % (0-2); EOSINOPHILS 0 % (0-7); HEMATOCRIT 31.7 % (36.0-48.0); HEMOGLOBIN 8.7 g/dL (12-16); IMMATURE GRANULOCYTES 1.1 % (0-5); LYMPHOCYTES 5.4 % (15-50); MCH 23.6 pg (26.0-34.0); MCHC 27.4 g/dL (31.0-37.0); MCV 85.9 fL (80.0-100.0); MEAN PLATELET VOLUME 9.1 fL (7.4-10.4); MONOCYTES 1.1 % (2-11); NEUTROPHILS 92.4 % (40-80); PLATELET COUNT 217 10x3/uL (130-400); RBC 3.69 10x6/uL (4.00-5.40); RDW 18.2 % (11.5-14.5); WBC 13.3 10x3/uL (4.8-10.8)
[2019-06-08 06:58] LABS: ANION GAP 3.3 mmol/L (8-16); CALCIUM 8.6 mg/dL (8.5-10.1); CREATININE - SERUM 0.9 mg/dL (0.6-1.3); POTASSIUM - SERUM 3.3 mmol/L (3.5-5.1)
[2019-06-08 07:59] VITALS: BP 110/60
--- NOTE | 2019-06-08 09:27 | NUR ---
PT ALERT X 4. BREATH SOUNDS CLEAR BILAT, 4L O2 PER NC. TELEMETRY IN PLACE. PT REPORTING PAIN OF 8/10, MEDICATED PER ORDERS, WILL MONITOR. BED LOW, CALL LIGHT IN REACH. NO OTHER NEEDS AT THIS TIME.
[2019-06-08 11:39] VITALS: BP 93/52
[2019-06-08 16:31] VITALS: BP 127/50
[2019-06-08 20:00] VITALS: BP 95/44
[2019-06-09] VITALS: BP 113/65
[2019-06-09 04:00] VITALS: BP 119/61
[2019-06-09 06:21] LABS: HEMATOCRIT 30.9 % (36.0-48.0); HEMOGLOBIN 8.8 g/dL (12-16); MCH 23.8 pg (26.0-34.0); MCHC 28.5 g/dL (31.0-37.0); MCV 83.5 fL (80.0-100.0); MEAN PLATELET VOLUME 9.3 fL (7.4-10.4); PLATELET COUNT 232 10x3/uL (130-400); RDW 18.5 % (11.5-14.5)
[2019-06-09 06:48] LABS: ALBUMIN 2.8 g/dL (3.4-5.0); ANION GAP 9.5 mmol/L (8-16); BILIRUBIN - TOTAL 0.22 mg/dL (0.2-1.3); CALCIUM 8.6 mg/dL (8.5-10.1); CARBON DIOXIDE 36.7 mmol/L (21.0-32.0); CREATININE - SERUM 0.9 mg/dL (0.6-1.3); MAGNESIUM - SERUM 1.8 mg/dL (1.8-2.4); PHOSPHOROUS 3.7 mg/dL (2.5-4.9); POTASSIUM - SERUM 4.2 mmol/L (3.5-5.1); PROTEIN - SERUM 6.6 g/dL (6.4-8.2)
[2019-06-09 08:21] VITALS: BP 112/49
[2019-06-09 08:51] LABS: ANISOCYTOSIS OCC; EOSINOPHILS 1 % (0-7); LYMPHOCYTES 5 % (15-50); MONOCYTES 6 % (2-11); NEUTROPHILS 84 % (40-80); PLATELET ESTIMATE NORMAL; ROULEAUX OCC
--- NOTE | 2019-06-09 10:40 | NUR ---
PATIENT SAYS SHE VOMITED UP THE NAUSEA PILL I GAVE HER. NO PILL SEEN. SALTINE CRACKERS AND ZEINAB LEMON [place] GIVEN. CL IN REACH. WCTM.
--- NOTE | 2019-06-09 11:03 | NUR ---
ATTEMPTING TO CONTACT JOSEE ROSALES APN. FOR NAUSEA MEDICINE FOR PT.
--- NOTE | 2019-06-09 11:25 | NUR ---
PROMETHAZINE 25 MG GIVEN IN LEFT DELTOID. CL IN REACH. PATIENT RECIEVED BED BATH, NEW TELEMETRY ELECTRODES, AND SOCKS. WCTM
[2019-06-09 13:14] VITALS: Ht 152.4 cm; Wt 167.5 kg
[2019-06-09 13:15] VITALS: BP 113/53
[2019-06-09 16:19] VITALS: BP 113/69
--- NOTE | 2019-06-09 17:49 | NUR ---
OT NOTE: PT COMPLETED BUE AROM EXS FOR INCREASED ACTIVITY TOLERANCE. PT COMPLETED BED MOB TASKS WITH SBA WHILE USING TRAPEZE BAR. PT COMPLETED HAIR GROOMING WITH SETUP. THANK YOU, CRISPIN UMANA
[2019-06-09 20:53] VITALS: BP 110/60
[2019-06-10 01:15] VITALS: BP 120/64
[2019-06-10 04:44] VITALS: BP 116/70
--- NOTE | 2019-06-10 06:24 | NUR ---
I have reviewed this patient and I concur with the Shift Assessment completed by the Licensed Practical Nurse today this shift.
[2019-06-10 07:03] LABS: BASOPHILS 1.9 % (0-2); EOSINOPHILS 2.3 % (0-7); HEMATOCRIT 32.7 % (36.0-48.0); HEMOGLOBIN 9.1 g/dL (12-16); IMMATURE GRANULOCYTES 0.9 % (0-5); LYMPHOCYTES 16.5 % (15-50); MCH 23.4 pg (26.0-34.0); MCHC 27.8 g/dL (31.0-37.0); MCV 84.1 fL (80.0-100.0); MEAN PLATELET VOLUME 9.2 fL (7.4-10.4); MONOCYTES 8.3 % (2-11); NEUTROPHILS 70.1 % (40-80); PLATELET COUNT 241 10x3/uL (130-400); RBC 3.89 10x6/uL (4.00-5.40); RDW 18.9 % (11.5-14.5); WBC 12.3 10x3/uL (4.8-10.8)
--- NOTE | 2019-06-10 07:10 | NUR ---
PT RESTING IN BED. NO SIGNS OF DISTRESS. ON TELEMETRTY 97 SR. ON 4L NC. HAS HESS NO KINKS PATENT. DENIES ANY FURTHER NEED AT THIS TIME. CALL LIGHT IN REACH. BED LOW POSITION. NO FAMILY AT BEDSIDE AT THIS TIME.
[2019-06-10 07:12] LABS: ALBUMIN 2.9 g/dL (3.4-5.0); ANION GAP 11.6 mmol/L (8-16); BILIRUBIN - TOTAL 0.28 mg/dL (0.2-1.3); CALCIUM 9.4 mg/dL (8.5-10.1); CARBON DIOXIDE 36.6 mmol/L (21.0-32.0); POTASSIUM - SERUM 4.2 mmol/L (3.5-5.1); PROTEIN - SERUM 6.9 g/dL (6.4-8.2)
[2019-06-10 07:32] LABS: CREATININE - SERUM 1.3 mg/dL (0.6-1.3)
[2019-06-10 08:35] VITALS: BP 111/42
--- NOTE | 2019-06-10 11:50 | MORECARE ---
CASE MANAGEMENT DISCHARGE SUMMARY PATIENT: DOUGLAS HILLS UNIT: [id number] ADM DATE: 06/07/19 AGE: 53 : 63 SEX: F ROOM/BED: D.[facility]9 AUTHOR: AMELIA MCGOVERN PHYSICIAN: REFERRING PHYSICIAN: CHARLIE HARO MD DATE OF SERVICE: 06/10/19 Discharge Plan Patient Name: DOUGLAS HILLS Facility: [facility]:[place] : 1965 Planned Disposition: Nursing Facility [facility] Cert Anticipated Discharge Date: Discharge Date: Expected LOS: Initial Reviewer: [email or web address] Initial Review Date: 06/10/2019 Generated: 06/10/19 12:49 pm Patient Name: DOUGLAS HILLS Page 28329 at 1150 All edits/amendments must be made on the electronic document DICTATION DATE: 06/10/19 1149 STAFF PHYSICIAN: CLEMENT 06/10/19 1149 RPT#: [id number] DC DATE: STATUS: ADM IN [facility] [address] [place] [address] END OF REPORT
--- NOTE | 2019-06-10 11:57 | MORECARE ---
CASE MANAGEMENT DISCHARGE SUMMARY PATIENT: DOUGLAS HILLS UNIT: [id number] ADM DATE: 06/07/19 AGE: 53 : 63 SEX: F ROOM/BED: D.2239 AUTHOR: FROILAN,DOC PHYSICIAN: REFERRING PHYSICIAN: CHARLIE HARO MD DATE OF SERVICE: 06/10/19 Discharge Plan Patient Name: DOUGLAS HILLS Facility: [facility]:[place] : 1965 Planned Disposition: Nursing Facility [facility] Cert Anticipated Discharge Date: Discharge Date: Expected LOS: Initial Reviewer: [email or web address] Initial Review Date: 06/10/2019 Generated: 06/10/19 12:57 pm Comments DCP- Discharge Planning Updated by [email or web address]: Thelma Yusuf on 06/10/19 10:[address] Patient Name: DOUGLAS HILLS Admission Status: ER Accout number: [id number] Admission Date: 06-07-2019 : 1965 Admission Diagnosis: Attending: CHARLIE HARO Current LOS: 3 Anticipated DC Date: Planned Disposition: Nursing Facility [facility] Cert Primary Insurance: [facility] MEDICARE SOLUTIONS Discharge Planning Comments: CM met with the patient to discuss discharge planning/needs. She is a resident of [facility] and plans on returning to [facility] on discharge. States she uses Bipap at bedtime and for napping. She is on oxygen 24/7. She states she is unsure of how many liters her oxygen is on at the senior living. I have notified charu [place] for [facility], that she may be discharging today or tomorrow. CM will continue to follow and assist with discharge planning/needs. Mold Yard Worker: Thelma Yusuf DCPIA - Discharge Planning Initial Assessment Updated by [email or web address]: Thelma Yusuf on 06/10/19 11:52 am * Is the patient Alert and Oriented? Yes * How many steps to enter\exit or inside your home? 0/0 * Preadmission Environment Longterm Alf * Facility Name [facility] * ADLs Partial Dependent * Partial ADLs (Assistance needed) Ambulation Bathing Dressing Medication Management Toileting Transfers * Equipment Other Oxygen * Other Equipment Bipap * List name and contact numbers for known caregivers / representatives who currently or will assist patient after discharge: Ludy Li - [phone] or [phone] [facility] - [phone] * Verbal permission to speak to the caregivers and representatives has been obtained from the patient. Yes * Community resources currently utilized None * Additional services required to return to the preadmission environment? No * Can the patient safely return to the preadmission environment? Yes * Has this patient been hospitalized within the prior 30 days at any hospital? Yes Last DP export: 06/10/19 10:50 Patient Name: DOUGLAS HILLS Page 13782 at 1157 All edits/amendments must be made on the electronic document DICTATION DATE: 06/10/191156 JEWELRY APPRAISER: CLEMENT 06/10/191156 RPT#: [id number] DC DATE: STATUS: ADM IN [facility] [address] [place] [address] END OF REPORT
--- NOTE | 2019-06-10 12:05 | MORECARE ---
CASE MANAGEMENT DISCHARGE SUMMARY PATIENT: DOUGLAS HILLS UNIT: [id number] ADM DATE: 06/07/19 AGE: 53 : 63 SEX: F ROOM/BED: D.2239 AUTHOR: FROILAN,DOC PHYSICIAN: REFERRING PHYSICIAN: CHARLIE HARO MD DATE OF SERVICE: 06/10/19 Discharge Plan Patient Name: DOUGLAS HILLS Facility: [facility]:[place] : 1965 Planned Disposition: Nursing Facility [facility] Cert Anticipated Discharge Date: Discharge Date: Expected LOS: Initial Reviewer: [email or web address] Initial Review Date: 06/10/2019 Generated: 06/10/19 1:05 pm Comments DCP- Discharge Planning Updated by [email or web address]: Thelma Yusuf on 06/10/19 10:[address] Patient Name: DOUGLAS HILLS Admission Status: ER Accout number: [id number] Admission Date: 06-07-2019 : 1965 Admission Diagnosis: Attending: CHARLIE HARO Current LOS: 3 Anticipated DC Date: Planned Disposition: Nursing Facility [facility] Cert Primary Insurance: [facility] MEDICARE SOLUTIONS Discharge Planning Comments: CM met with the patient to discuss discharge planning/needs. She is a resident of [facility] and plans on returning to [facility] on discharge. States she uses Bipap at bedtime and for napping. She is on oxygen 24/7. She states she is unsure of how many liters her oxygen is on at the correction. I have notified charu [place] for [facility], that she may be discharging today or tomorrow. CM will continue to follow and assist with discharge planning/needs. Insurance Defense Paralegal: Thelma Yusuf DCPIA - Discharge Planning Initial Assessment Updated by [email or web address]: Thelma Yusuf on 06/10/19 11:52 am * Is the patient Alert and Oriented? Yes * How many steps to enter\exit or inside your home? 0/0 * Preadmission Environment [facility] * Facility Name [facility] * ADLs Partial Dependent * Partial ADLs (Assistance needed) Ambulation Bathing Dressing Medication Management Toileting Transfers * Equipment Other Oxygen * Other Equipment Bipap * List name and contact numbers for known caregivers / representatives who currently or will assist patient after discharge: Ludy Li - [phone] or [phone] [facility] - [phone] * Verbal permission to speak to the caregivers and representatives has been obtained from the patient. Yes * Community resources currently utilized None * Additional services required to return to the preadmission environment? No * Can the patient safely return to the preadmission environment? Yes * Has this patient been hospitalized within the prior 30 days at any hospital? Yes External Providers External Provider: [facility] Next Contact Date: Service Request Date: Service Type: Resolution: Reviewer: Comments: Last DP export: 06/10/19 10:57 Patient Name: DOUGLAS HILLS Page 99697 at 1205 All edits/amendments must be made on the electronic document DICTATION DATE: 06/10/19 120 VEGETABLE CUTTER: CLEMENT 06/10/19 1205 RPT#: [id number] DC DATE: STATUS: ADM IN [facility] [address] [place] [address] END OF REPORT
[2019-06-10 12:15] VITALS: BP 82/49
[2019-06-10] MEDS ORDERED: LEVOFLOXACIN500 MG PO (13:16)
--- NOTE | 2019-06-10 14:26 | MORECARE ---
CASE MANAGEMENT DISCHARGE SUMMARY PATIENT: DOUGLAS HILLS UNIT: [id number] ADM DATE: 06/07/19 AGE: 53 : 63 SEX: F ROOM/BED: D.2239 AUTHOR: AMELIA MCGOVERN PHYSICIAN: REFERRING PHYSICIAN: CHARLIE HARO MD DATE OF SERVICE: 06/10/19 Discharge Plan Patient Name: DOUGLAS HILLS Facility: [facility] : 1965 Planned Disposition: Nursing Facility [facility] Cert Anticipated Discharge Date: Discharge Date: Expected LOS: Initial Reviewer: [email or web address] Initial Review Date: 06/10/2019 Generated: 06/10/19 3:26 pm Comments DCP- Discharge Planning Updated by [email or web address]: Thelma Yusuf on 06/10/19 1:[address] Patient Name: DOUGLAS HILLS Encounter No: [id number] : 1965 Primary Insurance: [facility] MEDICARE SOLUTIONS Anticipated DC Date: Planned Disposition: Nursing Facility [facility] Cert External Planned Provider: : DCP follow-up note: Patient in agreement with discharge plan. No changes to plan. Discharging to snf care (Medicaid) bed today. [facility] will transport at 3:30. I have asked they bring her clothes. Patient will notify her family of going back to [facility]. Case management will follow and assist as needed. Thelma Yusuf DCP- Discharge Planning Updated by [id number]: Thelma Yusuf on 06/10/19 10:[address] Patient Name: DOUGLAS HILLS Admission Status: ER Accout number: [id number] Admission Date: 06-07-2019 : 1965 Admission Diagnosis: Attending: CHARLIE HARO Current LOS: 3 Anticipated DC Date: Planned Disposition: Nursing Facility [facility] Cert Primary Insurance: [employer] MEDICARE SOLUTIONS Discharge Planning Comments: CM met with the patient to discuss discharge planning/needs. She is a resident of [facility] and plans on returning to [facility] on discharge. States she uses Bipap at bedtime and for napping. She is on oxygen 24/7. She states she is unsure of how many liters her oxygen is on at the shelter. I have notified charu [place] for [facility], that she may be discharging today or tomorrow. CM will continue to follow and assist with discharge planning/needs. [employer] Consultant: Thelma Yusuf DCPIA - Discharge Planning Initial Assessment Updated by [email or web address]: Thelma Yusuf on 06/10/19 11:52 am * Is the patient Alert and Oriented? Yes * How many steps to enter\exit or inside your home? 0/0 * Preadmission Environment [facility] * Facility Name [facility] * ADLs Partial Dependent * Partial ADLs (Assistance needed) Ambulation Bathing Dressing Medication Management Toileting Transfers * Equipment Other Oxygen * Other Equipment Bipap * List name and contact numbers for known caregivers / representatives who currently or will assist patient after discharge: Ludy Li [phone] or [phone] [facility] - [phone] * Verbal permission to speak to the caregivers and representatives has been obtained from the patient. Yes * Community resources currently utilized None * Additional services required to return to the preadmission environment? No * Can the patient safely return to the preadmission environment? Yes * Has this patient been hospitalized within the prior 30 days at any hospital? Yes Coverage Notice Reviewer: [id number] Bayron Yusuf Notice Issued Date-Time: 06/10/2019 12:05 Notice Type: Patient Choice Letter Notice Delivered To: Patient Relationship to Patient: Self Napkin Band Wrapper Name: Delivery Method: HAND - Hand Delivered Adrianne Days: Prior Verbal Notification: Recipient Understood Notice: Yes Recipient Signature: Yes Med Rec Note Co-signed by Attending: Coverage Notice Comment: [facility] Reviewer: [id number] Bayron Yusuf Notice Issued Date-Time: 06/10/2019 14:08 Notice Type: IM Discharge Notice Notice Delivered To: Patient Relationship to Patient: Self Napkin Band Wrapper Name: Delivery Method: HAND - Hand Delivered Adrianne Days: Prior Verbal Notification: Recipient Understood Notice: Yes Recipient Signature: Yes Med Rec Note Co-signed by Attending: Coverage Notice Comment: IMM explained, signed, given, copy placed in MR Last DP export: 06/10/19 11:05 Patient Name: DOUGLAS HILLS Page [id number] at 1426 All edits/amendments must be made on the electronic document DICTATION DATE: 06/10/191425 LIQUOR CLERK: CLEMENT 06/10/191425 RPT#: [id number] DC DATE: STATUS: ADM IN [facility] [address] [facility] [address] END OF REPORT
--- NOTE | 2019-06-10 15:58 | NUR ---
DISCHARGE INSTRUCTIONS GIVEN. SEEMS TO UNDERSTAND INSTRUCTIONS GIVEN TELEMETYR OFF AND RETURNED. LEFT WITH [facility] TO GO BACK.
--- NOTE | 2019-06-10 18:05 | NUR ---
OT NOTE: PT STATES THAT SHE FEELS BETTER. REPORTS THAT SHE CONT TO FEEL NAUSEOUS BUT BETTER. BED MOB INCLUDING SUPINE TO SIT WITH MIN ASSIST. ABLE TO DEMONSTRATE UE AROM EXS WITHOUT DIFFICULTY. PT TO DC TODAY. BERNADINE HILL, OTR/L
--- NOTE | 2019-06-10 19:27 | NUR ---
OT NOTE: PT COMPLETE BED MOB TASKS WITH SBA USING TRAPEZE BAR. PT COMPLETED FACE WASH WITH SETUP UPRIGHT IN BED. THANK YOU, CRISPIN UMANA
--- NOTE | 2019-06-12 07:03 | MORECARE ---
CASE MANAGEMENT DISCHARGE SUMMARY PATIENT: DOUGLAS HILLS UNIT: [id number] ADM DATE: 06/07/19 AGE: 53 : 63 SEX: F ROOM/BED: D.2239 AUTHOR: FROILANDOC PHYSICIAN: REFERRING PHYSICIAN: CHARLIE HARO MD DATE OF SERVICE: 06/12/19 Discharge Plan Patient Name: DOUGLAS HILLS Facility: [facility] : 1965 Planned Disposition: Nursing Facility [facility] Cert Anticipated Discharge Date: Discharge Date: 06/10/2019 Expected LOS: 0 Initial Reviewer: [email or web address] Initial Review Date: 06/10/2019 Generated: 06/12/19 8:02 am Comments DCP- Discharge Planning Updated by [id number]: Thelma Marinsantiago on 06/10/19 1:[address] Patient Name: DOUGLAS HILLS Encounter No: [id number] : 1965 Primary Insurance: [employer] MEDICARE SOLUTIONS Anticipated DC Date: Planned Disposition: Nursing Facility [facility] Cert External Planned Provider: : DCP follow-up note: Patient in agreement with discharge plan. No changes to plan. Discharging to nursing home care (Medicaid) bed today. [facility] will transport at 3:30. I have asked they bring her clothes. Patient will notify her family of going back to [facility]. Case management will follow and assist as needed. Thelma Yusuf DCP- Discharge Planning Updated by [id number]: Thelma Yusuf on 06/10/19 10:[address] Patient Name: DOUGLAS HILLS Admission Status: ER Accout number: [id number] Admission Date: 06-07-2019 : 1965 Admission Diagnosis: Attending: CHARLIE HARO Current LOS: 3 Anticipated DC Date: Planned Disposition: Nursing Facility [facility] Cert Primary Insurance: [facility] MEDICARE SOLUTIONS Discharge Planning Comments: CM met with the patient to discuss discharge planning/needs. She is a resident of [facility] and plans on returning to [facility] on discharge. States she uses Bipap at bedtime and for napping. She is on oxygen 24/. She states she is unsure of how many liters her oxygen is [facility] at the [facility]. I have notified charu [place] for [facility], that she may be discharging today or tomorrow. CM will continue to follow and assist with discharge planning/needs. Singer And Unloader: Thelma Yusuf DCPIA - Discharge Planning Initial Assessment Updated by [id number]: Thelma Yusuf on 06/10/19 11:52 am * Is the patient Alert and Oriented? Yes * How many steps to enter\exit or inside your home? 0/0 * Preadmission Environment Detention Long-Term * Facility Name [facility] * ADLs Partial Dependent * Partial ADLs (Assistance needed) Ambulation Bathing Dressing Medication Management Toileting Transfers * Equipment Other Oxygen * Other Equipment Bipap * List name and contact numbers for known caregivers / representatives who currently or will assist patient after discharge: Ludy Li - [phone] or [phone] [facility] - [phone] * Verbal permission to speak to the caregivers and representatives has been obtained from the patient. Yes * Community resources currently utilized None * Additional services required to return to the preadmission environment? No * Can the patient safely return to the preadmission environment? Yes * Has this patient been hospitalized within the prior 30 days at any hospital? Yes Coverage Notice Reviewer: [email or web address] Bayron Yusuf Notice Issued Date-Time: 06/10/2019 12:05 Notice Type: Patient Choice Letter Notice Delivered To: Patient Relationship to Patient: Self Acoustic Warfare Analyst Name: Delivery Method: HAND - Hand Delivered Adrianne Days: Prior Verbal Notification: Recipient Understood Notice: Yes Recipient Signature: Yes Med Rec Note Co-signed by Attending: Coverage Notice Comment: [facility] Reviewer: [id number] Bayron Yusuf Notice Issued Date-Time: 06/10/2019 14:08 Notice Type: IM Discharge Notice Notice Delivered To: Patient Relationship to Patient: Self Acoustic Warfare Analyst Name: Delivery Method: HAND - Hand Delivered Adrianne Days: Prior Verbal Notification: Recipient Understood Notice: Yes Recipient Signature: Yes Med Rec Note Co-signed by Attending: Coverage Notice Comment: IMM explained, signed, given, copy placed in MR Last DP export: 06/10/19 1:26 Patient Name: DOUGLAS HILLS Page 95646 at 0703 All edits/amendments must be made on the electronic document DICTATION DATE: 06/12/19701 OUTSIDE PLANT CABLE ENGINEER: CLEMENT 06/12/19701 RPT#: [id number] DC DATE:06/10/19 STATUS: DIS IN [facility] [address] [place] [address] END OF REPORT
== END 2019-06-10 16:00 | DRG 205 ==
LOC: D.ER 03:24 → D.MS 04:57
PROVIDERS: Emergency Medicine; Internal Medicine Pulmonary Disease; ADMIT Internal Medicine Nephrology; ATTEND Internal Medicine Nephrology
DX: E66.2 Morbid (severe) obesity with alveolar hypoventilation (principal); J96.22 Acute and chronic respiratory failure with hypercapnia; J96.21 Acute and chronic respiratory failure with hypoxia; I50.33 Acute on chronic diastolic (congestive) heart failure; Z68.44 Body mass index [BMI] 60.0-69.9, adult; J44.1 Chronic obstructive pulmonary disease with (acute) exacerbation; J44.0 Chronic obstructive pulmonary disease with (acute) lower respiratory infection; I11.0 Hypertensive heart disease with heart failure; G89.29 Other chronic pain; Z99.81 Dependence on supplemental oxygen; J20.9 Acute bronchitis, unspecified; E11.40 Type 2 diabetes mellitus with diabetic neuropathy, unspecified; E11.65 Type 2 diabetes mellitus with hyperglycemia; E03.9 Hypothyroidism, unspecified; D50.9 Iron deficiency anemia, unspecified; M19.90 Unspecified osteoarthritis, unspecified site; K21.9 Gastro-esophageal reflux disease without esophagitis; E78.5 Hyperlipidemia, unspecified

== ENCOUNTER 2019-06-20 23:48 | Inpatient (IN) | payer MEDICARE, MEDICAID ==
[~2019-06-20] VITALS: Ht 152.4 cm; Wt 158.8 kg
[~2019-06-20 23:48] MED LIST changes: +IMODIUM2 MG PO; +LANTUS SOL100 UNIT/1
--- NOTE | 2019-06-21 | NUR ---
SOLUMEDROL 125MG AND DUONEB GIVEN IN ROUTE
[2019-06-21 00:07] LABS: BASOPHILS 0.1 % (0-2); EOSINOPHILS 3.1 % (0-7); HEMATOCRIT 31.3 % (36.0-48.0); IMMATURE GRANULOCYTES 1.1 % (0-5); MCH 23.6 pg (26.0-34.0); MCHC 27.5 g/dL (31.0-37.0); MCV 85.8 fL (80.0-100.0); MEAN PLATELET VOLUME 8.2 fL (7.4-10.4); MONOCYTES 8.9 % (2-11); NEUTROPHILS 67.8 % (40-80); PLATELET COUNT 270 10x3/uL (130-400); RBC 3.65 10x6/uL (4.00-5.40); RDW 17.9 % (11.5-14.5)
[2019-06-21 00:11] LABS: HEMOGLOBIN 9.6 g/dL (12-16)
[2019-06-21 00:24] LABS: KETONE - SERUM NEGATIVE (NEGATIVE)
[2019-06-21 00:26] LABS: CALCIUM 9.3 mg/dL (8.5-10.1); CHLORIDE - SERUM 97 mmol/L (98-107); CREATININE - SERUM 0.9 mg/dL (0.6-1.3); POTASSIUM - SERUM 3.6 mmol/L (3.5-5.1); SODIUM 141 mmol/L (136-145); UREA NITROGEN 19 mg/dL (7-18); eGFR NON AFRICAN AMERICAN 69 mL/min (90-120)
[2019-06-21 00:27] LABS: CALC OSMOLALITY 290 mosm/kg (275-300); GLUCOSE 247 mg/dL (74-106)
[2019-06-21 00:29] LABS: CARBON DIOXIDE 46.8 mmol/L (21.0-32.0)
[2019-06-21 00:32] LABS: ALBUMIN 2.7 g/dL (3.4-5.0); ALKALINE PHOSPHATASE 104 U/L (46-116); ALT (SGPT) 12 U/L (10-68); BILIRUBIN - TOTAL 0.28 mg/dL (0.2-1.3); PRO BNP 204 pg/mL (0-125)
--- NOTE | 2019-06-21 01:09 | NUR ---
PT IN PER EMS WITH SOB, OXYGEN SAT 98% UPON ARRIVAL, PATIENT PLACED ON BIPAP, RESTING QUIETLY AT THIS TIME. PATIENTS COLORING IS WNL, EASY TO AROUSE.
[2019-06-21 02:48] VITALS: BP 121/78
--- NOTE | 2019-06-21 03:01 | NUR ---
PT ARRIVED ON UNIT VIA STRETCHER. TRANSFERRED TO BED AND POSITIONED FOR COMFORT. PUREWICK EXTERNAL CATHETER PLACED AND PT TEACHING PERFORMED. ROLANDO'S PASTE APPLIED TO REDNESS IN BUTTUCK CRACK. RT HERE TO PLACE BIPAP ON PT.
[2019-06-21 03:34] VITALS: BP 120/60; BMI 68.5
--- NOTE | 2019-06-21 03:44 | NUR ---
ADMISSION ASSESSMENT AND HISTORY COMPLETE.
[2019-06-21] MEDS ORDERED: FLORANEX / LACT1 TAB PO (03:55)
[2019-06-21] MEDS ORDERED: BUMETANIDE0.5 MG PO (03:57)
[2019-06-21 04:00] VITALS: BP 120/60
--- NOTE | 2019-06-21 06:55 | NUR ---
PT WANTS [facility] LOCKED IN HOSPITAL SAFE. CALLED ER ADMISSIONS AND SPOKE TO ROBBI. SHE SAID THEY WOULD BE HERE TO SENIOR MANUFACTURING SUPERVISOR SOON. PASSED ON IN REPORT.
--- NOTE | 2019-06-21 07:15 | NUR ---
ALERT AND ORIENTED, RESTING IN BED. UP WITH ASSIST. PUREWICK IN PLACE. NO C/O PAIN. NO S/S OF ACUTE DISTRESS NOTED. ON 4L O2, NC. IV TO RIGHT HAND, SL. SITE PATENT WITHOUT REDNESS OR SWELLING. REDNESS UNDER BREASTS AND IN FOLDS. ON TELEMETRY ST 110. DENIES ANY NEEDS AT THIS TIME. CALL LIGHT IN REACH. WILL CONTINUE TO MONITOR.
--- NOTE | 2019-06-21 08:00 | NUR ---
LIBRARY MONITOR CALLED THIS NURSE TO PATIENT'S ROOM D/T O2 SATURATION @ 84% ON 4L O2, NC. PLACED PATIENT ON BIPAP, CALLED RESPIRATORY TO COME EVALUATE. CHANGED TO 8L O2, HIGHFLOW. PATIENT'S O2 SATURATION IS 92%. NOTIFIED CLARA MARTINEZ APN.
[2019-06-21 08:26] VITALS: BP 119/37
--- NOTE | 2019-06-21 11:20 | NUR ---
PATIENT'S BLOOD SUGAR OVER 500, NOTIFIED LION ROJAS APN. INCREASED SLIDING SCALE TO HIGH RESISTANCE SCALE PER PHYSICIAN. GAVE PATIENT 28 UNITS OF HUMALOG PER SLIDING SCALE.
--- NOTE | 2019-06-21 11:30 | NUR ---
PLACED HESS CATHETER PER PHYSICIAN ORDER, 16 FR. 150ML OUTPUT, URINE CLEAR.
--- NOTE | 2019-06-21 12:15 | NUR ---
RECHECKED PATIENTS BLOOD SUGAR, 487. GAVE ANOTHER 28 UNITS OF HUMALOG INSULIN PER SLIDING SCALE.
[2019-06-21 12:19] VITALS: Ht 152.4 cm; Wt 158.8 kg
[2019-06-21 16:23] VITALS: BP 113/48
--- NOTE | 2019-06-21 18:50 | NUR ---
ALERT AND ORIENTED, RESTING IN BED. C/O PAIN, GAVE NORCO FOR PAIN. NO S/S OF ACUTE DISTRESS NOTED. DENIES ANY NEEDS AT THIS TIME. CALL LIGHT IN REACH. WILL CONTINUE TO MONITOR.
[2019-06-21 20:00] VITALS: BP 112/51
--- NOTE | 2019-06-21 20:00 | NUR ---
A/O WITH NO SIGNS OF ACUTE DISTRESS. IV TO THE RT HAND WITH NO REDNESS OR SWELLING. NC@ 8L AND HESS IN PLACE. DENIES NO NEEDS AT THIS TIME. CONTINUE PLAN OF CARE.
[2019-06-22] VITALS: BP 109/45
[2019-06-22 06:54] LABS: ALBUMIN 2.7 g/dL (3.4-5.0); ANION GAP 2.3 mmol/L (8-16); BILIRUBIN - TOTAL 0.27 mg/dL (0.2-1.3); CALCIUM 9.2 mg/dL (8.5-10.1); POTASSIUM - SERUM 3.4 mmol/L (3.5-5.1)
[2019-06-22 06:58] LABS: CARBON DIOXIDE 47.1 mmol/L (21.0-32.0)
[2019-06-22 07:03] LABS: BASOPHILS 0.2 % (0-2); EOSINOPHILS 1.3 % (0-7); HEMATOCRIT 32.1 % (36.0-48.0); HEMOGLOBIN 9.1 g/dL (12-16); IMMATURE GRANULOCYTES 1.3 % (0-5); LYMPHOCYTES 15.1 % (15-50); MCH 24.2 pg (26.0-34.0); MCHC 28.3 g/dL (31.0-37.0); MCV 85.4 fL (80.0-100.0); MEAN PLATELET VOLUME 8.7 fL (7.4-10.4); MONOCYTES 10.3 % (2-11); NEUTROPHILS 71.8 % (40-80); RBC 3.76 10x6/uL (4.00-5.40); WBC 13.4 10x3/uL (4.8-10.8)
[2019-06-22 07:04] LABS: PLATELET COUNT 338 10x3/uL (130-400)
--- NOTE | 2019-06-22 07:15 | NUR ---
ALERT AND ORIENTED, RESTING IN BED. NO C/O PAIN. NO S/S OF ACUTE DISTRESS NOTED. UP WITH ASSIST. HESS CATHETER PRESENT. ON 8L O2, HIGHFLOW. REDNESS UNDERNEATH BILATERAL BREASTS AND ABDOMINAL FOLDS. ON TELEMETRY [address] ST. DENIES ANY NEEDS AT THIS TIME. CALL LIGHT IN REACH. WILL CONTINUE TO MONITOR.
[2019-06-22 07:57] VITALS: BP 104/71
[2019-06-22 12:11] VITALS: BP 112/48
[2019-06-22 16:19] VITALS: BP 98/53
--- NOTE | 2019-06-22 18:42 | NUR ---
ALERT AND ORIENTED, RESTING IN BED. DENIES ANY NEEDS AT THIS TIME. CALL LIGHT IN REACH. WILL CONTINUE TO MONITOR.
[2019-06-22 20:52] VITALS: BP 130/60
--- NOTE | 2019-06-22 21:40 | NUR ---
RESTING QUIETLY WITH NO DISTRESS NOTED. O2 @ 8L PER HIGHFLOW. RESP UNLABORED. SL TO RIGHT HAND INTACT WITHOUT REDNESS OR EDEMA NOTED.HESS PATENT AND DRAINING CLEAR YELLOW URINE.
[2019-06-23 01:21] VITALS: BP 123/66
--- NOTE | 2019-06-23 02:46 | NUR ---
I have reviewed this patient and I concur with the Shift Assessment completed by the Licensed Practical Nurse today this shift.
[2019-06-23 05:45] VITALS: BP 114/69
[2019-06-23 05:50] LABS: BASOPHILS 0.2 % (0-2); EOSINOPHILS 4.9 % (0-7); HEMATOCRIT 33.1 % (36.0-48.0); IMMATURE GRANULOCYTES 0.8 % (0-5); LYMPHOCYTES 17.3 % (15-50); MCH 23.9 pg (26.0-34.0); MCHC 27.2 g/dL (31.0-37.0); MEAN PLATELET VOLUME 8.4 fL (7.4-10.4); MONOCYTES 8.3 % (2-11); NEUTROPHILS 68.5 % (40-80); RBC 3.76 10x6/uL (4.00-5.40); RDW 18.2 % (11.5-14.5)
[2019-06-23 06:17] LABS: ALBUMIN 2.7 g/dL (3.4-5.0); ALKALINE PHOSPHATASE 73 U/L (46-116); ALT (SGPT) 11 U/L (10-68); BILIRUBIN - TOTAL 0.24 mg/dL (0.2-1.3); CALCIUM 9.1 mg/dL (8.5-10.1); CHLORIDE - SERUM 99 mmol/L (98-107); CREATININE - SERUM 0.9 mg/dL (0.6-1.3); GLUCOSE 132 mg/dL (74-106); POTASSIUM - SERUM 3.3 mmol/L (3.5-5.1); PROTEIN - SERUM 6.8 g/dL (6.4-8.2); SODIUM 146 mmol/L (136-145); eGFR NON AFRICAN AMERICAN 69 mL/min (90-120)
[2019-06-23 06:31] LABS: PLATELET COUNT 251 10x3/uL (130-400); WBC 9.9 10x3/uL (4.8-10.8)
[2019-06-23 06:33] LABS: CALC OSMOLALITY 300 mosm/kg (275-300); UREA NITROGEN 36 mg/dL (7-18)
[2019-06-23 06:34] LABS: CARBON DIOXIDE 53.3 mmol/L (21.0-32.0)
--- NOTE | 2019-06-23 07:34 | NUR ---
AWAKE AND ALERT. ORIENTED X3. REQUESTED AND GIVNE ONE HYDROCODONE PO FOR C/O GENERALIZED PAIN LEVEL 10. WILL MONITOR. LUNGS ARE DIMINISHED BUT CLEAR THROUGHOUT, NO COUGH NOTED. SKIN IS INTACT WITH SOME REDNESS NOTED TO COCCYX AREA. BUTT BALM APPLIED TO AREA AFTER CLEANING. WILL MONITOR. SL TO RIGHT HAND IS PATENT WITHOUT REDNESS AT INSERTION SITE. HESS PATENT WITH CLEAR YELLOW URINE. DENIES NEEDS.
[2019-06-23 08:38] VITALS: BP 112/57
--- NOTE | 2019-06-23 10:00 | NUR ---
UP TO CHIAR AT BEDSIDE WITH PT. DENIES NEEDS.
--- NOTE | 2019-06-23 12:00 | NUR ---
FSBS 168. GIVEN 8 UNITS HUMALOG SUBQ PER SS. ALSO GIVEN HYDROCODONE PO FOR C/O GENERALIZED PAIN LEVEL 7. WILL MONITOR.
[2019-06-23 12:48] VITALS: BP 104/44
[2019-06-23 16:43] VITALS: BP 115/59
[2019-06-23 17:07] LABS: APPEARANCE CLEAR (CLEAR); COLOR YELLOW (YELLOW)
[2019-06-23 17:08] LABS: BILIRUBIN NEGATIVE (NEGATIVE); EPITHELIAL CELLS 0-5 /hpf (0-5); GLUCOSE NEGATIVE (NEGATIVE); KETONE NEGATIVE (NEGATIVE); NITRITE NEGATIVE (NEGATIVE); PROTEIN NEGATIVE (NEGATIVE); RED CELLS - URINE OCC /hpf (0-5); UROBILINOGEN NORMAL (NORMAL); WHITE CELLS - URINE 0-5 /hpf (NEGATIVE)
[2019-06-23 17:09] LABS: BACTERIA MANY /hpf (NEGATIVE)
--- NOTE | 2019-06-23 17:15 | NUR ---
FSBS 210. GIVEN 12 UNITS HUMALOG SUBQ PER SS. REQUESTED AND GIVEN OE HYDROCODONE PO FOR C/O GENERALIZED PAIN LEVEL 7. WILL MONITOR. NO CHANGES NOTED.
[2019-06-23 20:20] VITALS: BP 104/55
--- NOTE | 2019-06-23 21:00 | NUR ---
A&O X 4, DENIES PAIN. FSBS 260. REQUESTS LUX, BUT STATED SHE COULD GO WITHOUT SINCE HER SUGAR WAS HIGH. DENIES FURTHER NEEDS AT THIS TIME, WILL CONTINUE TO MONITOR.
[2019-06-24 00:40] VITALS: BP 100/60
--- NOTE | 2019-06-24 04:36 | NUR ---
I have reviewed this patient and I concur with the Shift Assessment completed by the Licensed Practical Nurse today this shift.
[2019-06-24 05:32] LABS: BASOPHILS 0.1 % (0-2); EOSINOPHILS 3.8 % (0-7); HEMATOCRIT 31.3 % (36.0-48.0); HEMOGLOBIN 8.7 g/dL (12-16); IMMATURE GRANULOCYTES 0.6 % (0-5); LYMPHOCYTES 13.2 % (15-50); MCH 24.3 pg (26.0-34.0); MCHC 27.8 g/dL (31.0-37.0); MCV 87.4 fL (80.0-100.0); MEAN PLATELET VOLUME 8.5 fL (7.4-10.4); MONOCYTES 6.1 % (2-11); NEUTROPHILS 76.2 % (40-80); PLATELET COUNT 242 10x3/uL (130-400); RBC 3.58 10x6/uL (4.00-5.40); WBC 10.8 10x3/uL (4.8-10.8)
[2019-06-24 05:41] VITALS: BP 100/57
[2019-06-24 06:04] LABS: ALBUMIN 2.7 g/dL (3.4-5.0); BILIRUBIN - TOTAL 0.26 mg/dL (0.2-1.3); CALCIUM 8.9 mg/dL (8.5-10.1); PROTEIN - SERUM 6.3 g/dL (6.4-8.2)
[2019-06-24 06:14] LABS: ANION GAP 0.9 mmol/L (8-16); POTASSIUM - SERUM 3.8 mmol/L (3.5-5.1)
[2019-06-24 06:33] LABS: CARBON DIOXIDE 49.9 mmol/L (21.0-32.0)
--- NOTE | 2019-06-24 07:32 | NUR ---
AWAKE AND ALERT. ORIENTED X3. NO C/O AT THIS TIME. LUNGS ARE CLEAR BUT DIMINISHED THROUGHOUT, OCCASSIONAL DRY COUGH NOTED. SKIN IS INTACT WTIHOUT REDNESS EXCEPT SOME REDNESS TO COCCYX AREA. WILL MONITOR. SL TO RIGHT HAND IS PATENT WITHOUT REDNESS AT INSERTION SITE. HESS PATENT WITH CLEAR YELLOW URINE. DENIES NEEDS.
[2019-06-24 08:21] VITALS: BP 107/47
--- NOTE | 2019-06-24 11:40 | NUR ---
DR. HEREDIA HERE.
[2019-06-24 12:17] VITALS: BP 98/54
--- NOTE | 2019-06-24 12:51 | MORECARE ---
CASE MANAGEMENT DISCHARGE SUMMARY PATIENT: DOUGLAS HILLS UNIT: [id number] ADM DATE: 06/21/19 AGE: 53 : 63 SEX: F ROOM/BED: D.[facility] AUTHOR: AMELIA MCGOVERN PHYSICIAN: REFERRING PHYSICIAN: LIDIA HECK MD DATE OF SERVICE: 06/24/19 Discharge Plan Patient Name: DOUGLAS HILLS Facility: [facility] : 1965 Planned Disposition: Nursing Facility [facility] Cert Anticipated Discharge Date: 06/25/19 Discharge Date: Expected LOS: 4 Initial Reviewer: [email or web address] Initial Review Date: 06/24/2019 Generated: 06/24/19 1:51 pm DCPIA - Discharge Planning Initial Assessment Updated by [email or web address]: Thelma Yusuf on 06/24/19 12:50 pm * Is the patient Alert and Oriented? Yes * How many steps to enter\exit or inside your home? 0/0 * PCP Dr. Heck at [facility] * Pharmacy [facility] * Preadmission Environment Shelter Halfway * Facility Name [facility] * ADLs Partial Dependent * Partial ADLs (Assistance needed) Ambulation Bathing Dressing Medication Management Toileting Transfers * Equipment Other Oxygen * Other Equipment Bipap * List name and contact numbers for known caregivers / representatives who currently or will assist patient after discharge: [facility] - [phone] Ludy Pendleton - [phone] * Verbal permission to speak to the caregivers and representatives has been obtained from the patient. Yes * Community resources currently utilized None * Additional services required to return to the preadmission environment? No * Can the patient safely return to the preadmission environment? Yes * Has this patient been hospitalized within the prior 30 days at any hospital? Yes External Providers External Provider: [facility] Next Contact Date: Service Request Date: Service Type: Resolution: Reviewer: Comments: Patient Name: DOUGLAS HILLS Page [phone] at 1251 All edits/amendments must be made on the electronic document DICTATION DATE: 06/24/19 1251 MOLD SETTER: CLEMENT 06/24/19 1251 RPT#: [id number] DC DATE: STATUS: ADM IN [facility] [address] [place] [address] END OF REPORT
--- NOTE | 2019-06-24 13:00 | MORECARE ---
CASE MANAGEMENT DISCHARGE SUMMARY PATIENT: DOUGLAS HILLS UNIT: [id number] ADM DATE: 06/21/19 AGE: 53 : 63 SEX: F [facility] AUTHOR: AMELIA MCGOVERN PHYSICIAN: REFERRING PHYSICIAN: LIDIA HECK MD DATE OF SERVICE: 06/24/19 Discharge Plan Patient Name: DOUGLAS HILLS Facility: [facility] : 1965 Planned Disposition: Nursing Facility [facility] Cert Anticipated Discharge Date: 06/25/19 Discharge Date: Expected LOS: 4 Initial Reviewer: [email or web address] Initial Review Date: 06/24/2019 Generated: 06/24/19 2:00 pm Comments DCP- Discharge Planning Updated by [id number]: Thelma Yusuf on 06/24/19 11:[address] Patient Name: DOUGLAS HILLS Admission Status: ER Accout number: [id number] Admission Date: 06-21-2019 : 1965 Admission Diagnosis: Attending: LIDIA HECK Current LOS: 3 Anticipated DC Date: 06-25-2019 Planned Disposition: Nursing Facility [facility] Cert Primary Insurance: [facility] MEDICARE SOLUTIONS Discharge Planning Comments: CM met with patient to complete initial dc planning assessment. CM educated patient on the CM role and verbal consent given by patient to complete assessment. Patient lives at [facility] in a termite control representative care bed. At discharge patient plans to return and feels this is a safe discharge. CM discussed availability of rehab services, and medical equipment. Patient denied known discharge needs at this time. States [facility] will get her when ready for discharge. I have notified Sandhya of possible discharge tomorrow. I spoke with Dr. Dykes and he states patient should go back on 4 liters NC (same as she wears at [facility]). CM will continue to follow and will assist as needed with dc plans/needs. Science Consultant: Thelma Yusuf DCPIA - Discharge Planning Initial Assessment Updated by [id number]: Thelma Yusuf on 06/24/19 12:50 pm * Is the patient Alert and Oriented? Yes * How many steps to enter\exit or inside your home? 0/0 * PCP Dr. Heck at [facility] * Pharmacy [facility] * Preadmission Environment Group Home Intermediate * Facility Name [facility] * ADLs Partial Dependent * Partial ADLs (Assistance needed) Ambulation Bathing Dressing Medication Management Toileting Transfers * Equipment Other Oxygen * Other Equipment Bipap * List name and contact numbers for known caregivers / representatives who currently or will assist patient after discharge: Stan Li [facility] - [phone] Ludy Li - [phone] * Verbal permission to speak to the caregivers and representatives has been obtained from the patient. Yes * Community resources currently utilized None * Additional services required to return to the preadmission environment? No * Can the patient safely return to the preadmission environment? Yes * Has this patient been hospitalized within the prior 30 days at any hospital? Yes Coverage Notice Reviewer: [id number] Bayron Yusuf Notice Issued Date-Time: 06/24/2019 12:56 Notice Type: Patient Choice Letter Notice Delivered To: Patient Relationship to Patient: Wholesale Manager Name: Delivery Method: HAND - Hand Delivered Adrianne Days: Prior Verbal Notification: Recipient Understood Notice: Yes Recipient Signature: Yes Med Rec Note Co-signed by Attending: Coverage Notice Comment: MATT for [facility] Last DP export: 06/24/19 11:51 a Patient Name: DOUGLAS HILLS Page [phone] at 1300 All edits/amendments must be made on the electronic document DICTATION DATE: 06/24/19 1300 BAKER OPERATOR AUTOMATIC: CLEMENT 06/24/19 1300 RPT#: [id number] DC DATE: STATUS: ADM IN [facility] [address] [place] [address] END OF REPORT
[2019-06-24 16:34] VITALS: BP 95/49
--- NOTE | 2019-06-24 18:40 | NUR ---
ATE ALL OF SUPPER. DENIES NEEDS. NO CHANGES NOTED.
--- NOTE | 2019-06-24 19:26 | NUR ---
LYING IN BED WITH TELEVISION ON, ABLE TO VOICE ALL NEEDS. HESS IN PLACE AND DRAINING TO CDS. WILL NOTE ANY CHANGE.
[2019-06-24 21:15] VITALS: BP 115/60
--- NOTE | 2019-06-24 23:19 | NUR ---
I have reviewed this patient and I concur with the Shift Assessment completed by the Licensed Practical Nurse today this shift.
[2019-06-25 01:04] VITALS: BP 110/42
[2019-06-25 05:50] VITALS: BP 132/48
[2019-06-25 06:33] LABS: BASOPHILS 0.1 % (0-2); EOSINOPHILS 4.1 % (0-7); HEMATOCRIT 28.4 % (36.0-48.0); HEMOGLOBIN 7.7 g/dL (12-16); IMMATURE GRANULOCYTES 0.5 % (0-5); LYMPHOCYTES 14.5 % (15-50); MCH 23.5 pg (26.0-34.0); MCHC 27.1 g/dL (31.0-37.0); MCV 86.9 fL (80.0-100.0); MEAN PLATELET VOLUME 8.8 fL (7.4-10.4); MONOCYTES 5.8 % (2-11); RBC 3.27 10x6/uL (4.00-5.40); RDW 17.7 % (11.5-14.5); WBC 8.5 10x3/uL (4.8-10.8)
[2019-06-25 06:42] LABS: PLATELET COUNT 163 10x3/uL (130-400)
[2019-06-25 07:00] LABS: ALBUMIN 2.7 g/dL (3.4-5.0); BILIRUBIN - TOTAL 0.21 mg/dL (0.2-1.3); CALCIUM 9.4 mg/dL (8.5-10.1); CREATININE - SERUM 0.9 mg/dL (0.6-1.3); POTASSIUM - SERUM 3.4 mmol/L (3.5-5.1); PROTEIN - SERUM 6.7 g/dL (6.4-8.2)
[2019-06-25 07:28] LABS: CARBON DIOXIDE 51.4 mmol/L (21.0-32.0)
[2019-06-25 08:36] VITALS: BP 111/42
[2019-06-25 12:55] VITALS: BP 96/44
--- NOTE | 2019-06-25 14:25 | NUR ---
NUTRITION F/U CHART REVIEWED. PT TOLERATING DIABETIC DIET WITH 75 TO 100% INTAKE RECENT MEALS. WILL CONTINUE TO PROVIDE DIET, MONITOR PO INTAKE. RD FOLLOWING
[2019-06-25 16:28] VITALS: BP 106/34
--- NOTE | 2019-06-25 16:39 | NUR ---
OT NOTE: PT PERFORMED WELL TODAY. BED MOB WITH MIN ASSIST; SIT TO STAND WITH WALKER AND MIN ASSIST; ABLE TO AMB WITH P.T. APPROX 15-20 FT WITH WALKER AND 02. PT FATIGUED QUICKLY. ABLE TO PERFORM UPPER BODY ADLS, GROOMING, AND FEEDING WITH SET UP. BERNADINE HILL, OTR/L
--- NOTE | 2019-06-25 19:00 | NUR ---
OT NOTE: PT COMPLETED BED MOB TASKS WITH SBA. PT COMPLETED HYGIENE TASKS WITH SET UP. THANK YOU,CRISPIN UMANA
--- NOTE | 2019-06-25 19:15 | NUR ---
IN BED WITH EYES CLOSED, RESPIRATIONS EVEN AND UNLABORED. ABLE TO VOICE ALL NEEDS. SHOWS NO S/S OF ANY ACUTE DISTRESS. REMAINS ON ISOLATION. WILL NOTE ANY CHANGE.
[2019-06-25 20:00] VITALS: BP 98/37
[2019-06-26] VITALS: BP 105/49
--- NOTE | 2019-06-26 01:44 | NUR ---
I have reviewed this patient and I concur with the Shift Assessment completed by the Licensed Practical Nurse today this shift.
[2019-06-26 04:00] VITALS: BP 118/40
--- NOTE | 2019-06-26 06:15 | NUR ---
RESTED WELL THIS SHIFT, TOOK PO PAIN MEDICATION AT 2151 AND 0541, EACH TIME WAS EFFECTIVE. WILL NOTE ANY CHANGE.
[2019-06-26 07:03] LABS: ALBUMIN 2.7 g/dL (3.4-5.0); BILIRUBIN - TOTAL 0.25 mg/dL (0.2-1.3); CALCIUM 8.6 mg/dL (8.5-10.1); POTASSIUM - SERUM 3.8 mmol/L (3.5-5.1); PROTEIN - SERUM 6.3 g/dL (6.4-8.2)
[2019-06-26 07:15] LABS: ANION GAP 3.9 mmol/L (8-16)
[2019-06-26 07:17] LABS: CARBON DIOXIDE 45.9 mmol/L (21.0-32.0)
--- NOTE | 2019-06-26 07:45 | NUR ---
PT RESTING. O2 a 4L NC. PT BROUGHT COFFEE AND WIPES PER REQUEST. DENIES FURTHER NEEDS OR PAIN AT THIS TIME. PT IS SOB UPON EXERTION. HESS CATHETER IN PLACE. ISOLATION PRECAUTIONS ALSO IN PLACE. BED IN LOWEST POSITION.CALL LIGHT WITHIN REACH. WILL CONTINUE TO MONITOR.
[2019-06-26 08:04] LABS: HEMATOCRIT 30.4 % (36.0-48.0); HEMOGLOBIN 8.7 g/dL (12-16); LYMPHOCYTES 12.3 % (15-50); MCHC 28.6 g/dL (31.0-37.0); MEAN PLATELET VOLUME 8.9 fL (7.4-10.4); NEUTROPHILS 79.6 % (40-80); RBC 3.63 10x6/uL (4.00-5.40); RDW 16.6 % (11.5-14.5)
[2019-06-26 08:12] LABS: MCV 83.7 fL (80.0-100.0); PLATELET COUNT 199 10x3/uL (130-400); WBC 11.1 10x3/uL (4.8-10.8)
[2019-06-26 08:23] LABS: % SATURATION 6 % (15-55); IRON 27 ug/dl (35-150); TOTAL IRON BIND CAPACITY 390 ug/dl (260-445); UNSAT IRON BIND CAPACITY 363 ug/dl (150-375)
[2019-06-26 08:36] VITALS: BP 108/61; BP 135/82
[2019-06-26] MEDS ORDERED: BACTRIM 400/80 MG TA PO (11:30)
--- NOTE | 2019-06-26 11:55 | MORECARE ---
CASE MANAGEMENT DISCHARGE SUMMARY PATIENT: DOUGLAS HILLS UNIT: [id number] ADM DATE: 06/21/19 AGE: 53 : 63 SEX: F ROOM/BED: D[facility] AUTHOR: AMELIA MCGOVERN PHYSICIAN: REFERRING PHYSICIAN: CHARLIE HARO MD DATE OF SERVICE: 06/26/19 Discharge Plan Patient Name: DOUGLAS HILLS Facility: [facility]:[place] : 1965 Planned Disposition: Nursing Facility [facility] Cert Anticipated Discharge Date: 06/25/19 Discharge Date: Expected LOS: 4 Initial Reviewer: [email or web address] Initial Review Date: 06/24/2019 Generated: 06/26/19 12:55 pm Comments DCP- Discharge Planning Updated by [email or web address]: Thelma Yusuf on 06/26/19 10:[address] Patient Name: DOUGLAS HILLS Encounter No: [id number] : 1965 Primary Insurance: [facility] MEDIC[facility] SOLUTIONS Anticipated DC Date: 06-25-2019 Planned Disposition: Nursing Facility [facility] Cert External Planned Provider: : DCP follow-up note: Patient in agreement with discharge plan. No changes to plan. I have informed charu Marte for [facility]. I also called [facility] and informed them. Rosanna states she will return to a skilled (Medicare) bed. She will call me with a metal pickling equipment operator time. Case management will follow and assist as needed. Thelma Yusuf DCP- Discharge Planning Updated by [id number]: Thelma Yusuf on 06/24/19 11:[address] Patient Name: DOUGLAS HILLS Admission Status: ER Accout number: [id number] Admission Date: 06-21-2019 : 1965 Admission Diagnosis: Attending: LIDIA HECK Current LOS: 3 Anticipated DC Date: 06-25-2019 Planned Disposition: Nursing Facility [facility] Cert Primary Insurance: [facility] MEDIC[facility] SOLUTIONS Discharge Planning Comments: CM met with patient to complete initial dc planning assessment. CM educated patient on the CM role and verbal consent given by patient to complete assessment. Patient lives at [facility] in a mcfp care bed. At discharge patient plans to return and feels this is a safe discharge. CM discussed availability of rehab services, and medical equipment. Patient denied known discharge needs at this time. States The [facility] will get her when ready for discharge. I have notified Sandhya of possible discharge tomorrow. I spoke with Dr. Dykes and he states patient should go back on 4 liters NC (same as she wears at [facility]). CM will continue to follow and will assist as needed with dc plans/needs. Process Tank Tender: Thelma Yusuf DCPIA - Discharge Planning Initial Assessment Updated by [email or web address]: Thelma Yusuf on 06/24/19 12:50 pm * Is the patient Alert and Oriented? Yes * How many steps to enter\exit or inside your home? 0/0 * PCP Dr. Hcek at [facility] * Pharmacy [facility] * Preadmission Environment [facility] * Facility Name [facility] * ADLs Partial Dependent * Partial ADLs (Assistance needed) Ambulation Bathing Dressing Medication Management Toileting Transfers * Equipment Other Oxygen * Other Equipment Bipap * List name and contact numbers for known caregivers / representatives who currently or will assist patient after discharge: [facility] - [phone] Ludy [place] - [phone] * Verbal permission to speak to the caregivers and representatives has been obtained from the patient. Yes * Community resources currently utilized None * Additional services required to return to the preadmission environment? No * Can the patient safely return to the preadmission environment? Yes * Has this patient been hospitalized within the prior 30 days at any hospital? Yes Coverage Notice Reviewer: [id number] Bayron Yusuf Notice Issued Date-Time: 06/24/2019 12:56 Notice Type: Patient Choice Letter Notice Delivered To: Patient Relationship to Patient: Harbor Engineer Name: Delivery Method: HAND - Hand Delivered Adrianne Days: Prior Verbal Notification: Recipient Understood Notice: Yes Recipient Signature: Yes Med Rec Note Co-signed by Attending: Coverage Notice Comment: MATT for [facility] Reviewer: [id number] Bayron Yusuf Notice Issued Date-Time: 06/26/2019 11:47 Notice Type: IM Discharge Notice Notice Delivered To: Patient Relationship to Patient: Self Harbor Engineer Name: Delivery Method: HAND - Hand Delivered Adrianne Days: Prior Verbal Notification: Recipient Understood Notice: Yes Recipient Signature: Yes Med Rec Note Co-signed by Attending: Coverage Notice Comment: IMM explained, signed, given, copy placed in MR Last DP export: 06/24/19 12:00 p Patient Name: DOUGLAS HILLS Page [phone] at 1155 All edits/amendments must be made on the electronic document DICTATION DATE: 06/26/19 115 RECOVERY ANALYST: CLEMENT 06/26/19 115 RPT#: [id number] DC DATE: STATUS: ADM IN [facility] [address] [place] [address] END OF REPORT
--- NOTE | 2019-06-26 12:29 | NUR ---
I have reviewed this patient and I concur with the Shift Assessment completed by the Licensed Practical Nurse today this shift.
--- NOTE | 2019-06-26 13:15 | NUR ---
OT NOTE: PT PERFORMED WELL TODAY. BED MOB WITH MIN ASSIST; GROOMING WITH SET UP; TOILET HYGIENE WITH MAX ASSIST; IN ROOM AMBULATION WITH WALKER AND MIN ASSIST. BERNADINE HILL, OTR/L
--- NOTE | 2019-06-26 14:41 | NUR ---
OT NOTE: PT COMPLETED BED MOB TASKS WITH SBA. PT COMPLETED ADL MOB WITH CGA. PT COMPLETED EOB SITTING BALANCE WITH SPV. PT COMPLETED UB HYGIENE TASK WITH SET UP. THANK YOU,CRISPIN UMANA
[2019-06-26 14:44] VITALS: BP 109/55
--- NOTE | 2019-06-26 15:42 | NUR ---
REPORT HAS BEEN CALLED TO [facility]. D/C INSTRUCTIONS SENT WITH INGOT BUGGY OPERATOR. PT LEFT WITH ALL BELONGINGS VIA WHEELCHAIR. IV D/C WITH CATHETER TIP INTACT.
--- NOTE | 2019-06-30 13:53 | MORECARE ---
CASE MANAGEMENT DISCHARGE SUMMARY PATIENT: DOUGLAS HILLS UNIT: [id number] ADM DATE: 06/21/19 AGE: 53 : 63 SEX: F ROOM/BED: D.[facility] AUTHOR: AMELIA MCGOVERN PHYSICIAN: REFERRING PHYSICIAN: CHARLIE HARO MD DATE OF SERVICE: 06/30/19 Discharge Plan Patient Name: DOUGLAS HILLS Facility: [facility]:[place] : 1965 Planned Disposition: Nursing Facility [facility] Cert Anticipated Discharge Date: 06/25/19 Discharge Date: 06/26/2019 Expected LOS: 4 Initial Reviewer: [id number] Initial Review Date: 06/24/2019 Generated: 06/30/19 2:53 pm Comments DCP- Discharge Planning Updated by [email or web address]: Thelma Yusuf on 06/26/19 10:[address] Patient Name: DOUGLAS HILLS Encounter No: [id number] : 1965 Primary Insurance: [facility] MEDICARE SOLUTIONS Anticipated DC Date: 06-25-2019 Planned Disposition: Nursing Facility [facility] Cert External Planned Provider: : DCP follow-up note: Patient in agreement with discharge plan. No changes to plan. I have informed charu Marte for [facility]. I also called [facility] and informed them. Rosanna states she will return to a skilled (Medicare) bed. She will call me with a picking tech time. Case management will follow and assist as needed. Thelma Yusuf DCP- Discharge Planning Updated by [email or web address]: Thelma Yusuf on 06/24/19 11:[address] Patient Name: DOUGLAS HILLS Admission Status: ER Accout number: [id number] Admission Date: 06-21-2019 : 1965 Admission Diagnosis: Attending: LIDIA HECK Current LOS: 3 Anticipated DC Date: 06-25-2019 Planned Disposition: Nursing Facility [facility] Cert Primary Insurance: [facility] MEDIC[facility] SOLUTIONS Discharge Planning Comments: CM met with patient to complete initial dc planning assessment. CM educated patient on the CM role and verbal consent given by patient to complete assessment. Patient lives at [facility] in a usp care bed. At discharge patient plans to return and feels this is a safe discharge. CM discussed availability of rehab services, and medical equipment. Patient denied known discharge needs at this time. States [facility] will get her when ready for discharge. I have notified Sandhya of possible discharge tomorrow. I spoke with Dr. Dykes and he states patient should go back on 4 liters NC (same as she wears at [facility]). CM will continue to follow and will assist as needed with dc plans/needs. Cutting Machine Operator Helper: Thelma Yusuf DCPIA - Discharge Planning Initial Assessment Updated by [id number]: Thelma Yusuf on 06/24/19 12:50 pm * Is the patient Alert and Oriented? Yes * How many steps to enter\exit or inside your home? 0/0 * PCP Dr. Heck at [facility] * Pharmacy [facility] * Preadmission Environment [facility] * Facility Name [facility] * ADLs Partial Dependent * Partial ADLs (Assistance needed) Ambulation Bathing Dressing Medication Management Toileting Transfers * Equipment Other Oxygen * Other Equipment Bipap * List name and contact numbers for known caregivers / representatives who currently or will assist patient after discharge: Stan [facility] - [phone] Ludy Guillermo - [phone] * Verbal permission to speak to the caregivers and representatives has been obtained from the patient. Yes * Community resources currently utilized None * Additional services required to return to the preadmission environment? No * Can the patient safely return to the preadmission environment? Yes * Has this patient been hospitalized within the prior 30 days at any hospital? Yes Coverage Notice Reviewer: [id number] Bayron Yusuf Notice Issued Date-Time: 06/24/2019 12:56 Notice Type: Patient Choice Letter Notice Delivered To: Patient Relationship to Patient: Founder / Ceo Name: Delivery Method: HAND - Hand Delivered Adrianne Days: Prior Verbal Notification: Recipient Understood Notice: Yes Recipient Signature: Yes Med Rec Note Co-signed by Attending: Coverage Notice Comment: MATT for [facility] Reviewer: [id number] Bayron Yusuf Notice Issued Date-Time: 06/26/2019 11:47 Notice Type: IM Discharge Notice Notice Delivered To: Patient Relationship to Patient: Self Founder / Ceo Name: Delivery Method: HAND - Hand Delivered Adrianne Days: Prior Verbal Notification: Recipient Understood Notice: Yes Recipient Signature: Yes Med Rec Note Co-signed by Attending: Coverage Notice Comment: IMM explained, signed, given, copy placed in MR Last DP export: 06/26/19 10:55 a Patient Name: DOUGLAS HILLS Page 73739 at 1353 All edits/amendments must be made on the electronic document DICTATION DATE: 06/30/19 1353 PRACTICE BILLING ASSOCIATE: CLEMENT 06/30/19 1353 RPT#: [id number] DC DATE:06/26/19 STATUS: DIS IN [facility] [address] [place] [address] END OF REPORT
== END 2019-06-26 15:45 | DRG 291 ==
LOC: D.ER 23:48 → D.MS 06-21 02:33
PROVIDERS: Family Medicine; ADMIT Internal Medicine Nephrology; ATTEND Internal Medicine Nephrology
DX: I11.0 Hypertensive heart disease with heart failure (principal); J96.21 Acute and chronic respiratory failure with hypoxia; G93.41 Metabolic encephalopathy; J96.22 Acute and chronic respiratory failure with hypercapnia; E66.2 Morbid (severe) obesity with alveolar hypoventilation; Z68.44 Body mass index [BMI] 60.0-69.9, adult; J44.0 Chronic obstructive pulmonary disease with (acute) lower respiratory infection; J44.1 Chronic obstructive pulmonary disease with (acute) exacerbation; N39.0 Urinary tract infection, site not specified; I50.33 Acute on chronic diastolic (congestive) heart failure; Z99.81 Dependence on supplemental oxygen; D50.9 Iron deficiency anemia, unspecified; J20.9 Acute bronchitis, unspecified; E03.9 Hypothyroidism, unspecified; E78.5 Hyperlipidemia, unspecified; K21.9 Gastro-esophageal reflux disease without esophagitis; M19.90 Unspecified osteoarthritis, unspecified site; K59.00 Constipation, unspecified; E11.65 Type 2 diabetes mellitus with hyperglycemia; E11.40 Type 2 diabetes mellitus with diabetic neuropathy, unspecified

== ENCOUNTER 2019-06-28 18:14 | Inpatient (IN) | payer MEDICARE, MEDICAID ==
[~2019-06-28] VITALS: Ht 152.4 cm; Wt 159.5 kg
[~2019-06-28 18:14] MED LIST changes: +BACTRIM 400/80 MG TA PO; +BUMETANIDE0.5 MG PO; +FLORANEX / LACT1 TAB PO
[2019-06-28 18:50] LABS: BASOPHILS 0.1 % (0-2); EOSINOPHILS 3.5 % (0-7); HEMATOCRIT 31.4 % (36.0-48.0); HEMOGLOBIN 8.5 g/dL (12-16); IMMATURE GRANULOCYTES 0.6 % (0-5); LYMPHOCYTES 10.5 % (15-50); MCH 23.4 pg (26.0-34.0); MCHC 27.1 g/dL (31.0-37.0); MCV 86.5 fL (80.0-100.0); MEAN PLATELET VOLUME 8.6 fL (7.4-10.4); MONOCYTES 6.5 % (2-11); NEUTROPHILS 78.8 % (40-80); PLATELET COUNT 225 10x3/uL (130-400); RBC 3.63 10x6/uL (4.00-5.40); WBC 10.9 10x3/uL (4.8-10.8)
[2019-06-28 19:00] VITALS: BP 129/58
[2019-06-28 19:00] LABS: APTT 25.3 SECONDS (22.8-39.4); INR 1.03 (0.85-1.17)
--- NOTE | 2019-06-28 19:00 | NUR ---
PT PLACED ON BIPAP. KOREY NELSON AT BEDSIDE.
[2019-06-28 19:11] LABS: CALC OSMOLALITY 292 mosm/kg (275-300); CALCIUM 8.9 mg/dL (8.5-10.1); CHLORIDE - SERUM 94 mmol/L (98-107); GLUCOSE 197 mg/dL (74-106); POTASSIUM - SERUM 3.7 mmol/L (3.5-5.1); SODIUM 142 mmol/L (136-145); UREA NITROGEN 26 mg/dL (7-18); eGFR NON AFRICAN AMERICAN 61 mL/min (90-120)
[2019-06-28 19:18] LABS: CARBON DIOXIDE 49.2 mmol/L (21.0-32.0)
[2019-06-28 19:29] LABS: ALBUMIN 2.9 g/dL (3.4-5.0); ALKALINE PHOSPHATASE 82 U/L (46-116); ALT (SGPT) 13 U/L (10-68); BILIRUBIN - TOTAL 0.22 mg/dL (0.2-1.3); CKMB 0.7 U/L (0.0-3.6); CREATINE KINASE 19 UL (21-215); PROTEIN - SERUM 6.5 g/dL (6.4-8.2)
[2019-06-28 19:33] LABS: PRO BNP 198 pg/mL (0-125); TROPONIN-I < 0.017 ng/mL (0.000-0.060)
[2019-06-28 20:00] VITALS: BP 112/62
[2019-06-28 21:00] VITALS: BP 120/54; BP 124/59
--- NOTE | 2019-06-28 21:30 | NUR ---
PT HESS EMPTIED AT THIS TIME 1000ML CLEAR YELLOW URINE
--- NOTE | 2019-06-28 21:30 | NUR ---
PT STATES PAIN 7/10 IN BACK, GAVE NORCO ORDERED WITH [facility]. FSBS 411, GAVE LANTUS ORDERED. CALLED CLARA PEREZ, ORDERS RECIEVED FOR HUMALOG LOW RESISTANT SLIDING SCALED. GAVE 12 UNITS PER SS. WILL CTM
--- NOTE | 2019-06-28 21:40 | NUR ---
PT ASKING FOR PAIN MED PT STATES THAT SHE TAKES NORCO AT DE. INFORMED. SEE E MAR.
--- NOTE | 2019-06-28 21:55 | NUR ---
PT ARRIVED ON UNIT VIA STRETCHER. TRANSFERRED TO BED AND POSITIONED FOR COMFORT. ORIENTED TO ROOM AND CALL LIGHT. RESPIRATORY HERE TO SET UP BIPAP.
[2019-06-28] MEDS ORDERED: GLUCOTROL 5 MG T5 MG PO (22:13)
--- NOTE | 2019-06-28 22:15 | NUR ---
MED REC COMPLETE FOR MD TO REVIEW IN AM.
[2019-06-28 22:32] VITALS: BP 111/54; BMI 68.8
--- NOTE | 2019-06-28 23:08 | NUR ---
ADMISSION ASSESSMENT AND HISTORY COMPLETE.
--- NOTE | 2019-06-28 23:08 | NUR ---
PROVIDED PT WITH FAM PER REQUEST. WILL CONTINUE TO MONITOR FOR NEEDS.
[2019-06-29 00:42] VITALS: BP 112/55
[2019-06-29 08:02] VITALS: BP 119/54
[2019-06-29 11:36] VITALS: BP 125/54
--- NOTE | 2019-06-29 11:40 | NUR ---
RESTING IN BED, NO DISTRESS NOTED, WANTING PAIN MEDS, HERE TO SEE PT AND RESUME HOME MEDS
[2019-06-29 16:57] VITALS: BP 118/67
--- NOTE | 2019-06-29 19:40 | NUR ---
PT SITTING UP IN BED WITHOUT DISTRESS, AOX4. O2 6L/NC, RESP SLIGHTLY LABORED. SOB, NON PRODUCTIVE COUGH. HESS IN PLACE. SKIN REDDENED IN ABD FOLDS AND FOREARMS. IV LEFT UPPER ARM SL. SCDS ON. STATES SHE IS FEELING HOT AND ACHY. DENIES NEEDS AT THIS TIME. CL IN REACH, WILL CTM
[2019-06-29 20:42] VITALS: BP 100/52
--- NOTE | 2019-06-29 21:30 | NUR ---
PT STATES PAIN 7/10 IN BACK, GAVE NORCO ORDERED WITH [facility]. FSBS 411, LANTUS GIVEN ORDERED. CALLED CLARA PEREZ, ORDERS RECIEVED FOR HUMALOG LOW RESISTANT SLIDING SCALE. GAVE 12 UNITS PER SS. WILL CTM
[2019-06-30 01:34] VITALS: BP 113/36
[2019-06-30 05:12] VITALS: BP 120/44
[2019-06-30 06:11] LABS: BASOPHILS 0.1 % (0-2); EOSINOPHILS 0.3 % (0-7); HEMATOCRIT 31.6 % (36.0-48.0); HEMOGLOBIN 8.9 g/dL (12-16); IMMATURE GRANULOCYTES 0.6 % (0-5); LYMPHOCYTES 8.5 % (15-50); MCH 23.6 pg (26.0-34.0); MCHC 28.2 g/dL (31.0-37.0); MEAN PLATELET VOLUME 8.5 fL (7.4-10.4); MONOCYTES 4.1 % (2-11); NEUTROPHILS 86.4 % (40-80); RBC 3.77 10x6/uL (4.00-5.40); RDW 17.7 % (11.5-14.5); WBC 9.3 10x3/uL (4.8-10.8)
[2019-06-30 06:13] LABS: MCV 83.8 fL (80.0-100.0); PLATELET COUNT 293 10x3/uL (130-400)
[2019-06-30 06:22] LABS: ANION GAP 5.4 mmol/L (8-16); CALCIUM 8.9 mg/dL (8.5-10.1); POTASSIUM - SERUM 3.9 mmol/L (3.5-5.1)
[2019-06-30 06:29] LABS: CARBON DIOXIDE 43.5 mmol/L (21.0-32.0)
[2019-06-30 07:44] VITALS: BP 95/55
--- NOTE | 2019-06-30 07:56 | NUR ---
ALERT AND ORIENTED. LUNGS CLEAR BILATERALLY. HEART SOUNDS S1 AND S2 HEARD IN ALL CHAVEZ. BOWEL SOUNDS ACTIVE X 4. IV TO SHIVANI PATENT WITHOUT REDNESS. SKIN INTACT WITHOUT REDNESS. DENIES NEEDS. BED LOW. CALL MOMIN AND PERSONAL ITEMS IN REACH. WILL CONTINUE TO MONITOR.
--- NOTE | 2019-06-30 08:19 | NUR ---
REASSESSED BP. 131/62 PRIOR TO MEDICATIONS.
[2019-06-30] MEDS ORDERED: CARAFATE1 G PO (10:57)
--- NOTE | 2019-06-30 11:01 | NUR ---
SPOKE WITH EDGAR ELIZABETH WHO STATES OK TO RESTART HOME DOSE CARAFATE AND STATES GIVE 20 UNITS INSULIN FOR BLOOD SUGAR 403.
[2019-06-30 11:52] VITALS: BP 107/53
--- NOTE | 2019-06-30 12:43 | NUR ---
RESTING IN BED. DENIES NEEDS. WILL CONTINUE TO MONITOR.
--- NOTE | 2019-06-30 14:23 | NUR ---
PATIENT STATES STILL NAUSEATED AND VOMITING. NOT VOMIT NOTED TO BAG IN BED WITH PATIENT BUT VOMIT IN BAG IN TRASHCAN. PRN PHENERGAN NOT DUE UNTIL 1649. SCHEDULED CARAFATE NOT DUE UNTIL 1729.
[2019-06-30 14:49] VITALS: Ht 152.4 cm; Wt 159.5 kg
[2019-06-30] MEDS ORDERED: XIFAXAN550 MG PO (15:04)
[2019-06-30 16:36] VITALS: BP 115/56
[2019-06-30 21:08] VITALS: BP 138/82
--- NOTE | 2019-06-30 21:30 | NUR ---
A/O WITH NO SIGNS OF ACUTE DISTRESS. IV TO THE LT CHEST WITH NO REDNESS OR SWELLING. NC ON @6L AND HESS IN PLACE. COMPLAINING OF NAUSEA. REPORTS THAT SHE HASN'T HAD MUCH TO EAT AND WHAT LITTLE SHE DID EAT SHE THREW UP. BLOOD SUGER WAS 95 AND ASYMPTOMATIC, HELD LANTUS. ENCOURAGED SPRITE TO SETTLE STOMACH SINCE IT IS NOT TIME FOR PRN MED. WILL CHECK BLOODS SUGAR AGAIN. DENIES NO OTHER NEEDS AT THIS TIME. CONTINUE PLAN OF CARE.
[2019-07-01 01:05] VITALS: BP 120/49
[2019-07-01 04:38] VITALS: BP 188/50
--- NOTE | 2019-07-01 06:30 | NUR ---
UPON ADMIN MORNING MEDS PT REPORTS THAT SHE HAS THE CHILLS, HER BODY ACHES AND SHE STATES SHE BELIEVES SHE HAS THE FLU. WILL PASS ON TO DAY SHIFT. CONTINUE WITH PLAN OF CARE.
[2019-07-01 07:11] LABS: CALCIUM 9.2 mg/dL (8.5-10.1); CREATININE - SERUM 1.1 mg/dL (0.6-1.3)
[2019-07-01 07:12] LABS: BASOPHILS 0 % (0-2); EOSINOPHILS 0 % (0-7); HEMATOCRIT 33.5 % (36.0-48.0); HEMOGLOBIN 9.3 g/dL (12-16); IMMATURE GRANULOCYTES 0.3 % (0-5); LYMPHOCYTES 10.1 % (15-50); MCH 23.8 pg (26.0-34.0); MCHC 27.8 g/dL (31.0-37.0); MCV 85.7 fL (80.0-100.0); MEAN PLATELET VOLUME 8.5 fL (7.4-10.4); MONOCYTES 6.7 % (2-11); NEUTROPHILS 82.9 % (40-80); PLATELET COUNT 340 10x3/uL (130-400); RBC 3.91 10x6/uL (4.00-5.40); RDW 17.6 % (11.5-14.5)
[2019-07-01 07:16] LABS: WBC 12.9 10x3/uL (4.8-10.8)
[2019-07-01 07:25] LABS: ANION GAP 0.1 mmol/L (8-16); POTASSIUM - SERUM 3.2 mmol/L (3.5-5.1)
[2019-07-01 07:26] LABS: CARBON DIOXIDE 49.1 mmol/L (21.0-32.0)
--- NOTE | 2019-07-01 07:27 | NUR ---
LAB CALLED TO STATE PT CO2 49.1. EDGAR ELIZABETH PAGED.
--- NOTE | 2019-07-01 07:49 | NUR ---
SPOKE WITH EDGAR ELIZABETH TO NOTIFY OF CO2 49.1. STATES "OK." ALSO REQUESTED FLU SWAB FOR PATIENT. STATES OK TO SWAB AND PUT IN TEMPORARY DROPLET ISOLATION.
--- NOTE | 2019-07-01 08:08 | NUR ---
ALERT AND ORIENTED. LUNGS CLEAR BILATERALLY. HEART SOUNDS S1 AND S2 HEARD IN ALL CHAVEZ. BOWEL SOUNDS ACTIVE X 4. SKIN INTACT WITHOUT REDNESS. IV TO SHIVANI PATENT WITHOUT REDNESS. STATES ACHEY AND NAUSEAS ALL NIGHT. FLU SWAB OBTAINED. DENIES NEEDS. BED LOW. CALL MOMIN AND PERSONAL ITEMS IN REACH. EDUCATION PROVIDED ON TEMPORARY ISOLATION. VERBALIZED UNDERSTANDING. WILL CONTINUE TO MONITOR.
--- NOTE | 2019-07-01 08:10 | NUR ---
FLU SWAB TAKEN TO LAB.
[2019-07-01 08:37] VITALS: BP 108/56
--- NOTE | 2019-07-01 09:53 | NUR ---
FLU SWAB NEGATIVE. REMOVED FROM TEMPORARY ISOLATION.
--- NOTE | 2019-07-01 12:19 | NUR ---
RESTING IN BED. DENIES NEEDS. WILL CONTINUE TO MONITOR.
[2019-07-01 13:27] VITALS: BP 104/46
--- NOTE | 2019-07-01 15:21 | NUR ---
IV OUT TO LUA. EDGAR ELIZABETH PAGED TO SEE IF WANTS NEW IV OR CHANGE ABX TO PO. ONE TIME DAILY ABX IS ONLY THING GOING THROUGH IV. WAITING RESPONSE.
--- NOTE | 2019-07-01 16:10 | NUR ---
IV RESITED TO RIGHT HAND AFTER ONE ATTEMPT WITH 22 GAUGE.
[2019-07-01 16:28] VITALS: BP 104/64
--- NOTE | 2019-07-01 18:07 | NUR ---
RESTING IN BED. IV TO RIGHT HAND PATENT WITHOUT REDNESS. DENIES NEEDS. BED LOW. CALL MOMIN AND PERSONAL ITEMS IN REACH.
--- NOTE | 2019-07-01 20:00 | NUR ---
A/O WITH NO SIGNS OF ACUTE DISTRESS. IV TO THE RT HAND WITH NO REDNESS OR SWELLING NOTED. HESS IN PLACE. DENIES NEEDS AT THIS TIME. CONTINUE PLAN OF CARE.
[2019-07-01 21:03] VITALS: BP 120/60
[2019-07-02 01:21] VITALS: BP 116/47
[2019-07-02 05:06] VITALS: BP 127/54
[2019-07-02 05:38] LABS: BASOPHILS 0.1 % (0-2); EOSINOPHILS 0.6 % (0-7); HEMATOCRIT 37.8 % (36.0-48.0); HEMOGLOBIN 10.5 g/dL (12-16); IMMATURE GRANULOCYTES 0.3 % (0-5); LYMPHOCYTES 7.5 % (15-50); MCHC 27.8 g/dL (31.0-37.0); MCV 86.3 fL (80.0-100.0); MEAN PLATELET VOLUME 8.3 fL (7.4-10.4); MONOCYTES 7.3 % (2-11); NEUTROPHILS 84.2 % (40-80); PLATELET COUNT 321 10x3/uL (130-400); RBC 4.38 10x6/uL (4.00-5.40); WBC 14.4 10x3/uL (4.8-10.8)
[2019-07-02 06:19] LABS: ANION GAP 7.3 mmol/L (8-16); CALCIUM 9.5 mg/dL (8.5-10.1); CREATININE - SERUM 1.2 mg/dL (0.6-1.3); MAGNESIUM - SERUM 1.9 mg/dL (1.8-2.4); PHOSPHOROUS 4.4 mg/dL (2.5-4.9); POTASSIUM - SERUM 3.8 mmol/L (3.5-5.1)
[2019-07-02 07:06] LABS: CARBON DIOXIDE 45.5 mmol/L (21.0-32.0)
[2019-07-02 08:20] VITALS: BP 118/55
[2019-07-02 13:41] VITALS: BP 123/49
[2019-07-02 17:14] VITALS: BP 121/45
[2019-07-02 19:30] VITALS: BP 117/67
[2019-07-03 00:30] VITALS: BP 118/74
[2019-07-03 05:00] VITALS: BP 114/50
[2019-07-03 05:28] LABS: BASOPHILS 0.1 % (0-2); EOSINOPHILS 0.3 % (0-7); HEMATOCRIT 35.9 % (36.0-48.0); HEMOGLOBIN 10.3 g/dL (12-16); IMMATURE GRANULOCYTES 0.4 % (0-5); LYMPHOCYTES 7.6 % (15-50); MCH 23.9 pg (26.0-34.0); MCHC 28.7 g/dL (31.0-37.0); MEAN PLATELET VOLUME 8.1 fL (7.4-10.4); MONOCYTES 7.6 % (2-11); PLATELET COUNT 326 10x3/uL (130-400); RBC 4.31 10x6/uL (4.00-5.40); RDW 17.2 % (11.5-14.5); WBC 16.7 10x3/uL (4.8-10.8)
[2019-07-03 05:31] LABS: ANION GAP 6.7 mmol/L (8-16); CALCIUM 9.6 mg/dL (8.5-10.1); CREATININE - SERUM 1.4 mg/dL (0.6-1.3); POTASSIUM - SERUM 3.3 mmol/L (3.5-5.1)
[2019-07-03 05:35] LABS: MCV 83.3 fL (80.0-100.0)
[2019-07-03 05:37] LABS: CARBON DIOXIDE 41.6 mmol/L (21.0-32.0)
--- NOTE | 2019-07-03 07:15 | NUR ---
PT RESTING QUIETLY IN BED WATCHING TV. O2 @ 6L NC IN PLACE. REPORTS PAIN 01/29 AT THIS TIME. PAIN MEDICATION TO BE ADMINISTERED PER MD ORDERS. SALINE LOC TO LEFT FOREARM, SITE WITHOUT REDNESS OR EDEMA. F/C PATENT TO GRAVITY. DENIES FURTHER NEEDS AT THIS TIME. CL WITHIN REACH. ENCOURAGED TO CALL WITH NEEDS. CONTINUE POC
[2019-07-03] MEDS ORDERED: PREDNISONE5 MG PO (07:28)
[2019-07-03] MEDS ORDERED: ZITHROMAX TRI-500 MG PO (07:28)
[2019-07-03 09:21] VITALS: BP 136/62
--- NOTE | 2019-07-03 09:26 | MORECARE ---
CASE MANAGEMENT DISCHARGE SUMMARY PATIENT: DOUGLAS HILLS UNIT: [id number] ADM DATE: 06/28/19 AGE: 53 : 63 SEX: F ROOM/BED: D.2240 AUTHOR: AMELIA MCGOVERN PHYSICIAN: REFERRING PHYSICIAN: LIDIA HECK MD DATE OF SERVICE: 07/03/19 Discharge Plan Patient Name: DOUGLAS HILLS Facility: [facility]:[place] : 1965 Planned Disposition: Chcf Facility Anticipated Discharge Date: Discharge Date: Expected LOS: Initial Reviewer: [email or web address] Initial Review Date: 07/03/2019 Generated: 07/03/19 10:25 am Patient Name: DOUGLAS HILLS Page 51839 at 0926 All edits/amendments must be made on the electronic document DICTATION DATE: 07/03/19924 STERILE INSTRUMENT TECHNICIAN: CLEMENT 07/03/19924 RPT#: [id number] DC DATE: STATUS: ADM IN [facility] [address] [place] [address] END OF REPORT
--- NOTE | 2019-07-03 09:32 | MORECARE ---
CASE MANAGEMENT DISCHARGE SUMMARY PATIENT: DOUGLAS HILLS UNIT: [id number] ADM DATE: 06/28/19 AGE: 53 : 63 SEX: F ROOM/BED: D.2240 AUTHOR: AMELIA MCGOVERN PHYSICIAN: REFERRING PHYSICIAN: LIDIA HECK MD DATE OF SERVICE: 07/03/19 Discharge Plan Patient Name: DOUGLAS HILLS Facility: [facility]:[place] : 1965 Planned Disposition: Residential Facility Anticipated Discharge Date: Discharge Date: Expected LOS: Initial Reviewer: [email or web address] Initial Review Date: 07/03/2019 Generated: 07/03/19 10:32 am External Providers External Provider: [facility] Next Contact Date: Service Request Date: Service Type: Resolution: Reviewer: Comments: Last DP export: 07/03/19 8:25 Patient Name: DOUGLAS HILLS Page [phone] at 0932 All edits/amendments must be made on the electronic document DICTATION DATE: 07/03/19931 FLATWARE MAKER: CLEMENT 07/03/19931 RPT#: [id number] DC DATE: STATUS: ADM IN [facility] [address] [place] [address] END OF REPORT
--- NOTE | 2019-07-03 09:39 | MORECARE ---
CASE MANAGEMENT DISCHARGE SUMMARY PATIENT: DOUGLAS HILLS UNIT: [id number] ADM DATE: 06/28/19 AGE: 53 : 63 SEX: F ROOM/BED: D.2240 AUTHOR: AMELIA MCGOVERN PHYSICIAN: REFERRING PHYSICIAN: LIDIA HECK MD DATE OF SERVICE: 07/03/19 Discharge Plan Patient Name: DOUGLAS HILLS Facility: [facility] : 1965 Planned Disposition: Half-Way Facility Anticipated Discharge Date: 07/03/19 Discharge Date: Expected LOS: 5 Initial Reviewer: [id number] Initial Review Date: 07/03/2019 Generated: 07/03/19 10:39 am Comments DCP- Discharge Planning Updated by MOOSE: Thelma Yusuf on 07/03/19 8:[address] Received orders for discharge. I have called Sandhya with [facility] and updated clinical along with discharge order/MAR faxed. Sandhya states they will need to get auth to return to SNF. CM will continue to follow and assist with discharge planning/needs. Coverage Notice Reviewer: [id number] Bayron Yusuf Notice Issued Date-Time: 07/03/2019 9:35 Notice Type: IM Discharge Notice Notice Delivered To: Patient Relationship to Patient: Self Emt/Paramedic Name: Delivery Method: HAND - Hand Delivered Adrianne Days: Prior Verbal Notification: Recipient Understood Notice: Yes Recipient Signature: Yes Med Rec Note Co-signed by Attending: Coverage Notice Comment: IMM EXPLAINED, SIGNED, GIVEN,. COPY PLACED IN MR Reviewer: [id number] Bayron Yusuf Notice Issued Date-Time: 07/03/2019 9:35 Notice Type: Patient Choice Letter Notice Delivered To: Patient Relationship to Patient: Self Emt/Paramedic Name: Delivery Method: HAND - Hand Delivered Adrianne Days: Prior Verbal Notification: Recipient Understood Notice: Yes Recipient Signature: Yes Med Rec Note Co-signed by Attending: Coverage Notice Comment: MATT FOR THE [facility]ERR[facility] Last DP export: 07/03/19 8:32 Patient Name: DOUGLAS HILLS Page 48063 at 0939 All edits/amendments must be made on the electronic document DICTATION DATE: 07/03/19938 SENIOR INTERNAL AUDITOR: DM 07/03/19938 RPT#: [id number] DC DATE: STATUS: ADM IN [facility] [address] [place] [address] END OF REPORT
[2019-07-03 12:54] VITALS: BP 124/52
--- NOTE | 2019-07-03 14:22 | NUR ---
NUTRITION F/U PT TOLERATING ADA LOW NA+ DIET. 100% INTAKE RECENT MEALS. LAST BM CHARTED CHARTED 07/01/19. RD FOLLOWING
--- NOTE | 2019-07-03 14:43 | MORECARE ---
CASE MANAGEMENT DISCHARGE SUMMARY PATIENT: DOUGLAS HILLS UNIT: [id number] ADM DATE: 06/28/19 AGE: 53 : 63 SEX: F ROOM/BED: D.[facility] AUTHOR: AMELIA MCGOVERN PHYSICIAN: REFERRING PHYSICIAN: LIDIA HECK MD DATE OF SERVICE: 07/03/19 Discharge Plan Patient Name: DOUGLAS HILLS Facility: [facility]:[place] : 1965 Planned Disposition: Group Home Facility Anticipated Discharge Date: 07/03/19 Discharge Date: Expected LOS: 5 Initial Reviewer: [email or web address] Initial Review Date: 07/03/2019 Generated: 07/03/19 3:43 pm Comments DCP- Discharge Planning Updated by [id number]: Thelma Yusuf on 07/03/19 1:[address] Sandhya called with authorization for mcfp at [facility]. She is discharging to a skilled bed. They are ready to come pick her up. Patient is in agreement to discharge plan. She will call her family. Sandhya informed that we still had her in isolation from the ESBL in the urine on the previous admission. CM will continue to follow and assist with discharge planning/needs. DCP- Discharge Planning Updated by [email or web address]: Thelma Yusuf on 07/03/19 8:[address] Received orders for discharge. I have called Sandhya with [facility] and updated clinical along with discharge order/MAR faxed. Sandhya states they will need to get auth to return to SNF. CM will continue to follow and assist with discharge planning/needs. Coverage Notice Reviewer: [id number] Bayron Yusuf Notice Issued Date-Time: 07/03/2019 9:35 Notice Type: IM Discharge Notice Notice Delivered To: Patient Relationship to Patient: Self Cullet Trucker Name: Delivery Method: HAND - Hand Delivered Adrianne Days: Prior Verbal Notification: Recipient Understood Notice: Yes Recipient Signature: Yes Med Rec Note Co-signed by Attending: Coverage Notice Comment: IMM EXPLAINED, SIGNED, GIVEN,. COPY PLACED IN MR Reviewer: [id number] Bayron Yusuf Notice Issued Date-Time: 07/03/2019 9:35 Notice Type: Patient Choice Letter Notice Delivered To: Patient Relationship to Patient: Self Cullet Trucker Name: Delivery Method: HAND - Hand Delivered Adrianne Days: Prior Verbal Notification: Recipient Understood Notice: Yes Recipient Signature: Yes Med Rec Note Co-signed by Attending: Coverage Notice Comment: MATT FOR THE [facility] Last DP export: 07/03/19 8:39 Patient Name: DOUGLAS HILLS Page [phone] at 1443 All edits/amendments must be made on the electronic document DICTATION DATE: 07/03/191442 SQL APPLICATION DEVELOPER: CLEMENT 07/03/191442 RPT#: [id number] DC DATE: STATUS: ADM IN [facility] [address] [place] [address] END OF REPORT
--- NOTE | 2019-07-03 14:56 | NUR ---
PT REPORT CALLED TO ALESSANDRO AT THE [facility].
--- NOTE | 2019-07-03 15:15 | NUR ---
PT DISCHARGE PAPERWORK PROVIDED. SALINE LOC D/C'D FROM RIGHT FOREARM. CATH INTACT. PT TAKEN OUT VIA W/C WITH O2 IN PLACE. WITH ALL PERSONAL BELONGINGS WITH NURSHING HOME STAFF.
--- NOTE | 2019-07-06 13:57 | MORECARE ---
CASE MANAGEMENT DISCHARGE SUMMARY PATIENT: DOUGLAS HILLS UNIT: [id number] ADM DATE: 06/28/19 AGE: 53 : 63 SEX: F ROOM/BED: D.2240 AUTHOR: AMELIA MGCOVERN PHYSICIAN: REFERRING PHYSICIAN: LIDIA HECK MD DATE OF SERVICE: 07/06/19 Discharge Plan Patient Name: DOUGLAS HILLS Facility: [facility]:[place] : 1965 Planned Disposition: Group Home Facility Anticipated Discharge Date: 07/03/19 Discharge Date: 07/03/2019 Expected LOS: 5 Initial Reviewer: [id number] Initial Review Date: 07/03/2019 Generated: 07/06/19 2:57 pm Comments DCP- Discharge Planning Updated by [id number]: Thelma Yusuf on 07/03/19 1:[address] Sandhya called with authorization for penitentiary at [facility]. She is discharging to a skilled bed. They are ready to come pick her up. Patient is in agreement to discharge plan. She will call her family. Sandhya informed that we still had her in isolation from the ESBL in the urine on the previous admission. CM will continue to follow and assist with discharge planning/needs. DCP- Discharge Planning Updated by [id number]: Thelma Yusuf on 07/03/19 8:[address] Received orders for discharge. I have called Sandhya with [facility] and updated clinical along with discharge order/MAR faxed. Sandhya states they will need to get auth to return to SNF. CM will continue to follow and assist with discharge planning/needs. Coverage Notice Reviewer: [id number] Bayron Yusuf Notice Issued Date-Time: 07/03/2019 9:35 Notice Type: IM Discharge Notice Notice Delivered To: Patient Relationship to Patient: Self Closing Manager Name: Delivery Method: HAND - Hand Delivered Adrianne Days: Prior Verbal Notification: Recipient Understood Notice: Yes Recipient Signature: Yes Med Rec Note Co-signed by Attending: Coverage Notice Comment: IMM EXPLAINED, SIGNED, GIVEN,. COPY PLACED IN MR Reviewer: [id number] Bayron Yusuf Notice Issued Date-Time: 07/03/2019 9:35 Notice Type: Patient Choice Letter Notice Delivered To: Patient Relationship to Patient: Self Closing Manager Name: Delivery Method: HAND - Hand Delivered Adrianne Days: Prior Verbal Notification: Recipient Understood Notice: Yes Recipient Signature: Yes Med Rec Note Co-signed by Attending: Coverage Notice Comment: [facility] [place] Last DP export: 07/03/19 1:43 Patient Name: DOUGLAS HILLS Page 07803 at 1357 All edits/amendments must be made on the electronic document DICTATION DATE: 07/06/19 1354 STAKING TECHNICIAN: CLEMENT 07/06/19 1357 RPT#: [id number] DC DATE:07/03/19 STATUS: DIS IN [facility] [address] [place] [address] END OF REPORT
== END 2019-07-03 15:48 | DRG 189 ==
LOC: D.ER 18:14 → D.MS 20:38
PROVIDERS: Emergency Medicine; Internal Medicine Pulmonary Disease; ADMIT Legal Medicine; ATTEND Legal Medicine
DX: J96.02 Acute respiratory failure with hypercapnia (principal); G93.41 Metabolic encephalopathy; Z68.44 Body mass index [BMI] 60.0-69.9, adult; N17.9 Acute kidney failure, unspecified; E66.2 Morbid (severe) obesity with alveolar hypoventilation; J44.1 Chronic obstructive pulmonary disease with (acute) exacerbation; I50.32 Chronic diastolic (congestive) heart failure; J96.01 Acute respiratory failure with hypoxia; J44.9 Chronic obstructive pulmonary disease, unspecified; D64.9 Anemia, unspecified; D72.829 Elevated white blood cell count, unspecified; I11.0 Hypertensive heart disease with heart failure; D50.9 Iron deficiency anemia, unspecified; E03.9 Hypothyroidism, unspecified; E78.5 Hyperlipidemia, unspecified; E11.65 Type 2 diabetes mellitus with hyperglycemia; E87.6 Hypokalemia

== ENCOUNTER 2019-07-17 14:07 | Inpatient (IN) | payer MEDICARE, MEDICAID ==
[~2019-07-17] VITALS: Ht 152.4 cm; Wt 163.3 kg
[~2019-07-17 14:07] MED LIST changes: +CARAFATE1 G PO; +PREDNISONE5 MG PO; +XIFAXAN550 MG PO; +ZITHROMAX TRI-500 MG PO
[2019-07-17 15:18] LABS: BASOPHILS 0.2 % (0-2); EOSINOPHILS 1.7 % (0-7); HEMATOCRIT 34.8 % (36.0-48.0); HEMOGLOBIN 9.7 g/dL (12-16); IMMATURE GRANULOCYTES 0.6 % (0-5); LYMPHOCYTES 9.5 % (15-50); MCH 24.4 pg (26.0-34.0); MCHC 27.9 g/dL (31.0-37.0); MCV 87.7 fL (80.0-100.0); MEAN PLATELET VOLUME 8.8 fL (7.4-10.4); MONOCYTES 6.1 % (2-11); NEUTROPHILS 81.9 % (40-80); PLATELET COUNT 151 10x3/uL (130-400); RBC 3.97 10x6/uL (4.00-5.40); RDW 17.1 % (11.5-14.5); WBC 13.2 10x3/uL (4.8-10.8)
[2019-07-17 15:28] LABS: APTT 24.9 SECONDS (22.8-39.4); INR 0.95 (0.85-1.17); PROTIME 12.2 SECONDS (11.6-15.0)
[2019-07-17 16:10] LABS: ALKALINE PHOSPHATASE 80 U/L (46-116); ALT (SGPT) 23 U/L (10-68); BILIRUBIN - TOTAL 0.26 mg/dL (0.2-1.3); CALCIUM 9.1 mg/dL (8.5-10.1); CHLORIDE - SERUM 97 mmol/L (98-107); CKMB 0.7 U/L (0.0-3.6); CREATINE KINASE 25 UL (21-215); CREATININE - SERUM 0.9 mg/dL (0.6-1.3); POTASSIUM - SERUM 3.8 mmol/L (3.5-5.1); PRO BNP 653 pg/mL (0-125); PROTEIN - SERUM 6.9 g/dL (6.4-8.2); SODIUM 144 mmol/L (136-145); eGFR NON AFRICAN AMERICAN 69 mL/min (90-120)
[2019-07-17 16:11] LABS: TROPONIN-I < 0.017 ng/mL (0.000-0.060)
[2019-07-17 16:34] LABS: UREA NITROGEN 27 mg/dL (7-18)
[2019-07-17 16:36] LABS: CALC OSMOLALITY 295 mosm/kg (275-300); GLUCOSE 165 mg/dL (74-106)
[2019-07-17 16:37] LABS: CARBON DIOXIDE 46.5 mmol/L (21.0-32.0)
--- NOTE | 2019-07-17 16:45 | NUR ---
CO2 46.5 , JUAN DIEGO PROVIDER NOTIFIED.
[2019-07-17 17:03] VITALS: BP 107/50
[2019-07-17 23:19] VITALS: BP 127/58; BMI 70.4
[2019-07-18 00:30] VITALS: BP 127/58
[2019-07-18 05:00] VITALS: BP 130/67
[2019-07-18 08:51] VITALS: BP 120/68
[2019-07-18 12:22] VITALS: BP 99/56
[2019-07-18 13:25] VITALS: Ht 152.4 cm; Wt 163.3 kg
--- NOTE | 2019-07-18 16:46 | NUR ---
PT INCONTINENT BUT WITH PUREWICK. SUCTION OFF AT PRESENT SO PT CLEANED UP AND PUREWICK POSITIONED. PLEXIPULSE PLACED ON PT. LINENS CHANGED AND PT CLEANED. FAN PLACED PER REQUEST.
[2019-07-18 17:02] VITALS: BP 98/56
--- NOTE | 2019-07-18 19:55 | NUR ---
LYING IN BED TALKING ON PHONE. ALERT AND ORIENTED X4. RESP IRREG, LABORED. SLIGHTLY ANXIOUS. O2 @ 4LNC. ENCOURAGED USE OF BIPAP AT HS AND SHE VERBALIZED UNDERSTANDING. INCONT OF URINE. PUREWICK CATH IN USE BUT NOT WORKING PROPERLY BECAUSE PT KEEPS LEGS OPEN WITH KNEES BENT. PADS CHANGED AT THIS TIME AND WERE SOAKED IN URINE. PT STATES SHE WOULD LIKE A CATHETER. UNABLE TO AMB BUT TURNS SELF IN BED. 2+ EDEMA NOTED TO BLE. PLEXI BOOTS IN USE BILAT. SALINE LOCK NOTED TO LT UPPER ARM/SHOULDER AREA. DENIES PAIN AT THIS TIME. STATES SHE IS JUST TIRED, ACHES AND HAS NO APPETITE. SR ELEVATED X2. CL IN REACH.
[2019-07-18 21:00] VITALS: BP 94/42
--- NOTE | 2019-07-18 21:16 | NUR ---
DIURETICS HELD DUE TO HYPOTENSION.
--- NOTE | 2019-07-18 22:00 | NUR ---
LYING IN BED. BIPAP IN USE. NO DISTRESS. CL IN REACH.
[2019-07-19 01:17] VITALS: BP 91/41
--- NOTE | 2019-07-19 01:50 | NUR ---
LYING IN BED WITH EYES CLOSED. BIPAP IN USE. NO DISTRESS. CL IN REACH. HAS RESTED WELL SO FAR THIS SHIFT.
--- NOTE | 2019-07-19 03:06 | NUR ---
INCONT OF URINE. COMPLETE LINEN CHANGE AT THIS TIME. PERICARE PERFORMED. BIPAP IN USE. CL IN REACH. PUREWICK SUCTION INCREASED.
[2019-07-19 04:50] VITALS: BP 101/35
[2019-07-19 05:41] VITALS: BP 91/53
--- NOTE | 2019-07-19 06:01 | NUR ---
URINE ON SHEET AND PAD. PERICARE PERFORMED AT THIS TIME. PUREWICK IN USE. SHEETS CHANGED AT THIS TIME. PT C/O PAIN IN LEGS AND REQUESTING PAIN MED. EXPLAINED TO PT THAT B/P IS LOW AND ALL DIURETICS WERE HELD THIS SHIFT AND STAFF DOESNT FEEL IT IS SAFE TO GIVE NARCOTIC AT THIS TIME. SHE VERBALIZED UNDERSTANDING. CL IN REACH.
--- NOTE | 2019-07-19 08:36 | NUR ---
RESTING IN BED, NO DISTRESS NOTED, WILL START WITH BLOOD SUGARS AT NOON TODAY, CONT TO MONITOR RESP AND BP
[2019-07-19 09:01] VITALS: BP 114/40
--- NOTE | 2019-07-19 11:59 | NUR ---
DISCUSSED PT BP WITH FRANCISCO, HE INFORMED ME TO GO AHEAD AND GIVE HER THE BLOOMSDALE BP 92/55
[2019-07-19 12:51] VITALS: BP 92/55
[2019-07-19 17:01] VITALS: BP 90/50
[2019-07-20 00:29] VITALS: BP 109/55
--- NOTE | 2019-07-20 01:11 | NUR ---
WATHCING TV QUELTY WITH NO DISTRESS NOTED. RESP UNLAOBRED. NO O2 @ 4L PER NC ON. SL TO RIGHT SHOULDER INTACT WITHOUT REDNESS OR EDEMA NOTED. CL IN REACH
--- NOTE | 2019-07-20 03:42 | NUR ---
I have reviewed this patient and I concur with the Shift Assessment completed by the Licensed Practical Nurse today this shift.
[2019-07-20 05:30] VITALS: BP 105/54
[2019-07-20 06:27] LABS: BASOPHILS 0.1 % (0-2); EOSINOPHILS 3.9 % (0-7); HEMATOCRIT 32.4 % (36.0-48.0); HEMOGLOBIN 9.2 g/dL (12-16); IMMATURE GRANULOCYTES 0.4 % (0-5); LYMPHOCYTES 18.5 % (15-50); MCH 24.3 pg (26.0-34.0); MCHC 28.4 g/dL (31.0-37.0); MCV 85.7 fL (80.0-100.0); MEAN PLATELET VOLUME 8.8 fL (7.4-10.4); MONOCYTES 9.1 % (2-11); RBC 3.78 10x6/uL (4.00-5.40); RDW 17.9 % (11.5-14.5); WBC 9.3 10x3/uL (4.8-10.8)
[2019-07-20 06:35] LABS: CALCIUM 8.8 mg/dL (8.5-10.1); CREATININE - SERUM 0.9 mg/dL (0.6-1.3); POTASSIUM - SERUM 3.5 mmol/L (3.5-5.1)
[2019-07-20 06:37] LABS: CARBON DIOXIDE 40.5 mmol/L (21.0-32.0); PLATELET COUNT 204 10x3/uL (130-400)
[2019-07-20 09:06] VITALS: BP 102/47
[2019-07-20 12:20] VITALS: BP 103/48
--- NOTE | 2019-07-20 13:18 | NUR ---
I have reviewed this patient and I concur with the Shift Assessment completed by the Licensed Practical Nurse today this shift.
[2019-07-20 16:12] VITALS: BP 103/41
[2019-07-20 19:30] VITALS: BP 98/48
[2019-07-21 00:30] VITALS: BP 140/60
--- NOTE | 2019-07-21 02:38 | NUR ---
I have reviewed this patient and I concur with the Shift Assessment completed by the Licensed Practical Nurse today this shift.
[2019-07-21 05:31] VITALS: BP 114/59
[2019-07-21 06:52] LABS: BASOPHILS 0.1 % (0-2); EOSINOPHILS 3.6 % (0-7); HEMOGLOBIN 9.6 g/dL (12-16); IMMATURE GRANULOCYTES 0.4 % (0-5); LYMPHOCYTES 13.7 % (15-50); MCH 24.4 pg (26.0-34.0); MCHC 28.2 g/dL (31.0-37.0); MCV 86.5 fL (80.0-100.0); MEAN PLATELET VOLUME 8.9 fL (7.4-10.4); MONOCYTES 7.2 % (2-11); PLATELET COUNT 199 10x3/uL (130-400); RBC 3.93 10x6/uL (4.00-5.40); RDW 18.3 % (11.5-14.5)
[2019-07-21 07:12] LABS: ANION GAP 5.8 mmol/L (8-16); CREATININE - SERUM 0.9 mg/dL (0.6-1.3)
[2019-07-21 07:16] LABS: CARBON DIOXIDE 44.2 mmol/L (21.0-32.0)
[2019-07-21 08:14] VITALS: BP 122/55
[2019-07-21 12:51] VITALS: BP 95/58
--- NOTE | 2019-07-21 14:21 | NUR ---
Nutrition follow-up: Diet: Consitent CHO PO intake continues to be poor; pt reports no appetite Pt on BIPAP Labs reviewed Wt: 360# Will offer nutritional supplements. RDN following.
[2019-07-21 16:35] VITALS: BP 101/55
[2019-07-21 19:30] VITALS: BP 92/37
[2019-07-22 00:30] VITALS: BP 101/47
--- NOTE | 2019-07-22 01:13 | NUR ---
REC'D CHGE. OF SHIFT WALKING ROUNDS EYES CLOSED RESP. DEEP AND EVEN.02 HIGH FLOW 5/LITERS. NO RESP DIFFICULTY OBSERVED AT PRESENT TIME.PLEXI-PULSES TO HEELS BILAT.ANDREW CONTINUE TO MONITOR FOR ANY CHGES. IN RESP. STATUS AND FOLLOW CURRENT PLAN OF CARE.
[2019-07-22 05:35] VITALS: BP 98/52
--- NOTE | 2019-07-22 07:18 | NUR ---
I have reviewed this patient and I concur with the Shift Assessment completed by the Licensed Practical Nurse today this shift.
[2019-07-22 08:43] VITALS: BP 109/68
--- NOTE | 2019-07-22 09:33 | MORECARE ---
CASE MANAGEMENT DISCHARGE SUMMARY PATIENT: DOUGLAS HILLS UNIT: [id number] ADM DATE: 07/17/19 AGE: 53 : 63 SEX: F ROOM/BED: D.2240 AUTHOR: AMELIA MCGOVERN PHYSICIAN: REFERRING PHYSICIAN: LIDIA HECK MD DATE OF SERVICE: 07/22/19 Discharge Plan Patient Name: DOUGLAS HILLS Facility: [facility]:[place] : 1965 Planned Disposition: Group Home Facility Anticipated Discharge Date: Discharge Date: Expected LOS: Initial Reviewer: [email or web address] Initial Review Date: 07/17/2019 Generated: 07/22/19 10:32 am DCPIA - Discharge Planning Initial Assessment Updated by [email or web address]: Dori Young on 07/22/19 9:32 am * Is the patient Alert and Oriented? Yes * How many steps to enter\exit or inside your home? * PCP MARIA R- [facility] * Pharmacy [facility] * Preadmission Environment Group Home Facility * Facility Name [facility] * ADLs Partial Dependent * Partial ADLs (Assistance needed) Ambulation Bathing Medication Management Toileting * Equipment BIPAP Oxygen * List name and contact numbers for known caregivers / representatives who currently or will assist patient after discharge: MONIE ALVAREZ (SON) [phone] CHANG ALVAREZ [phone] * Verbal permission to speak to the caregivers and representatives has been obtained from the patient. N/A * Additional services required to return to the preadmission environment? Yes * Can the patient safely return to the preadmission environment? Yes * Has this patient been hospitalized within the prior 30 days at any hospital? Yes Patient Name: DOUGLAS HILLS Page 19588 at 0933 All edits/amendments must be made on the electronic document DICTATION DATE: 07/22/19931 TOLL COLLECTOR: CLEMENT 07/22/19931 RPT#: [id number] DC DATE: STATUS: ADM IN [facility] [address] [place] [address] END OF REPORT
--- NOTE | 2019-07-22 09:46 | MORECARE ---
CASE MANAGEMENT DISCHARGE SUMMARY PATIENT: DOUGLAS HILLS UNIT: [id number] ADM DATE: 07/17/19 AGE: 53 : 63 SEX: F ROOM/BED: D.2240 AUTHOR: FROILANDOC PHYSICIAN: REFERRING PHYSICIAN: LIDIA HECK MD DATE OF SERVICE: 07/22/19 Discharge Plan Patient Name: DOUGLAS HILLS Facility: [facility]:[place] : 1965 Planned Disposition: Senior Care Facility Anticipated Discharge Date: Discharge Date: Expected LOS: Initial Reviewer: [email or web address] Initial Review Date: 07/17/2019 Generated: 07/22/19 10:45 am Comments DCP- Discharge Planning Updated by [email or web address]: Dori Young on 07/22/19 8:[address] Patient Name: DOUGLAS HILLS Admission Status: ER Accout number: [id number] Admission Date: 07-17-2019 : 1965 Admission Diagnosis: Attending: LIDIA HECK Current LOS: 5 Anticipated DC Date: Planned Disposition: Senior Care Facility Primary Insurance: [facility] MEDICARE SOLUTIONS Discharge Planning Comments: CM met with patient to complete initial dc planning assessment. CM educated patient on the CM role and verbal consent given by patient to complete assessment. Patient lives at the [facility], but was in a skilled bed there from the last discharge from the hospital. At discharge patient plans to return to the [facility] to a skilled bed and feels this is a safe discharge. Patient has all the medical equipment she needs at the [facility]. She wears O2 and Bipap there. Patient denied known discharge needs at this time. CM will continue to follow and will assist as needed with dc plans/needs. Conference Service Coordinator: Dori Young DCPIA - Discharge Planning Initial Assessment Updated by [id number]: Dori Young on 07/22/19 9:32 am * Is the patient Alert and Oriented? Yes * How many steps to enter\exit or inside your home? * PCP MARIA R- [facility] * Pharmacy [facility] * Preadmission Environment Senior Care Facility * Facility Name [facility] * ADLs Partial Dependent * Partial ADLs (Assistance needed) Ambulation Bathing Medication Management Toileting * Equipment BIPAP Oxygen * List name and contact numbers for known caregivers / representatives who currently or will assist patient after discharge: MONIE ALVAREZ (SON) [phone] CHANG ALVAREZ [phone] * Verbal permission to speak to the caregivers and representatives has been obtained from the patient. N/A * Additional services required to return to the preadmission environment? Yes * Can the patient safely return to the preadmission environment? Yes * Has this patient been hospitalized within the prior 30 days at any hospital? Yes Last DP export: 07/22/19 8:33 Patient Name: DOUGLAS HILLS Page 55925 at 0946 All edits/amendments must be made on the electronic document DICTATION DATE: 07/22/19944 URBAN PLANNING PROFESSOR: CLEMENT 07/22/19944 RPT#: [id number] DC DATE: STATUS: ADM IN [facility] [address] [place] [address] END OF REPORT
[2019-07-22 12:49] VITALS: BP 105/51
[2019-07-22 16:54] VITALS: BP 121/56
[2019-07-22 19:30] VITALS: BP 111/40
[2019-07-23 00:30] VITALS: BP 97/52
[2019-07-23 05:30] VITALS: BP 120/57
--- NOTE | 2019-07-23 06:30 | NUR ---
I have reviewed this patient and I concur with the Shift Assessment completed by the Licensed Practical Nurse today this shift.
--- NOTE | 2019-07-23 07:23 | NUR ---
PT IS RESTING IN BED WITH EYES CLOSED. RESPIRATIONS ARE EVEN AND UNLABORED. CPAP IS ON. PT IS EASILY AROUSED WITH VERBAL STIMULATION. PT IS AAO X 4 UPON AROUSAL. PT REPORTS PAIN 6/10 GENERALIZED. SEE [facility] FOR PAIN MED. PUREWICK IN PLACE. CLEAR LIGHT YELLOW URINE NOTED TO COLLECTION CHAMBER. BED IS IN THE LOWEST POSITION. CALL LIGHT AND BEDSIDE TABLE ARE WITHIN REACH. SIDE RAILS X 2. PT DENIES PRESENCE OF N/V. PT DENIES NEEDS. WILL CONT TO MONITOR.
[2019-07-23 08:19] VITALS: BP 113/42
[2019-07-23 12:18] VITALS: BP 115/44
--- NOTE | 2019-07-23 12:48 | NUR ---
OT NOTE: (DOS 07/22/19) PT COMPLETED BED MOB TASKS WITH CGA. PT COMPLETED UB HYGIENE TASKS WITH SETUP. PT COMPLETED BUE AROM AXS WITH FUNCTIONAL TASKS. [phone] THANK YOU, CRISPIN UMANA
--- NOTE | 2019-07-23 15:25 | NUR ---
OT NOTE: PT COMPLETED BED MOB TASKS WITH SBA. PT COMPLETED LB HYGIENE TASKS WITH MAX A. PT COMPLETED UE AROM TASKS. [phone] THANK YOU,CRISPIN UMANA
--- NOTE | 2019-07-23 16:02 | NUR ---
PT RESTING IN BED WITH EYES CLOSED. RESPIRATIONS ARE EVEN AND UNLABORED. PT WITH RIGHT ARM "JERKING" PT STATES THAT "IT DOES THAT WHEN MY CO2 IS UP". PT STATES THAT SHE "DOESNT FEEL RIGHT AND IM SO TIRED". [employer] PH[employer]APH RESPIRATORY PAGERoberth TO NOTIFY OF PT STATE
[2019-07-23 17:03] VITALS: BP 103/37
[2019-07-23 20:00] VITALS: BP 116/62
[2019-07-24] VITALS: BP 111/49
--- NOTE | 2019-07-24 00:55 | NUR ---
REC'D.AT CHGE OF SHIFT WALKING ROUNDS.IN BED BIPAP ON REMAINS DROWSY/SLEEPY AROUSES TO DEEP VERBAL STIMULI. WILL CONTINUE TO MONITOR FOR ANY CHGES IN RESP. STATUS AND FOLLOW CURRENT PLAN OF CARE.NO RESP. DISTRESS OBSERVED.
[2019-07-24 04:00] VITALS: BP 105/50
[2019-07-24 04:53] LABS: BASOPHILS 0 % (0-2); HEMATOCRIT 31.9 % (36.0-48.0); IMMATURE GRANULOCYTES 0.5 % (0-5); LYMPHOCYTES 16.9 % (15-50); MCH 24.7 pg (26.0-34.0); MCHC 28.2 g/dL (31.0-37.0); MCV 87.6 fL (80.0-100.0); MEAN PLATELET VOLUME 8.7 fL (7.4-10.4); NEUTROPHILS 70.6 % (40-80); PLATELET COUNT 222 10x3/uL (130-400); RBC 3.64 10x6/uL (4.00-5.40); RDW 18.7 % (11.5-14.5); WBC 8.1 10x3/uL (4.8-10.8)
[2019-07-24 05:11] LABS: CALCIUM 9.1 mg/dL (8.5-10.1); CREATININE - SERUM 0.9 mg/dL (0.6-1.3); POTASSIUM - SERUM 3.2 mmol/L (3.5-5.1)
[2019-07-24 05:21] LABS: CARBON DIOXIDE 44.2 mmol/L (21.0-32.0)
--- NOTE | 2019-07-24 07:56 | NUR ---
I have reviewed this patient and I concur with the Shift Assessment completed by the Licensed Practical Nurse today this shift.
[2019-07-24] MEDS ORDERED: PREDNISONE5 MG PO (10:08)
--- NOTE | 2019-07-24 10:51 | NUR ---
PT ALERT X 4. BREATH SOUNDS DIMINISHED TO LOWER LOBES, 4L O2 PER NC. NO IV ACCESS AT THIS TIME. PT REPORTING PAIN OF 8/10, MEDICATED PER ORDERS, WILL MONITOR. BED LOW CALL LIGHT IN REACH. NO OTHER NEEDS AT THIS TIME.
--- NOTE | 2019-07-24 10:51 | MORECARE ---
CASE MANAGEMENT DISCHARGE SUMMARY PATIENT: DOUGLAS HILLS UNIT: [id number] ADM DATE: 07/17/19 AGE: 53 : 63 SEX: F ROOM/BED: D.2240 AUTHOR: FROILANDOC PHYSICIAN: REFERRING PHYSICIAN: LIDIA HECK MD DATE OF SERVICE: 07/24/19 Discharge Plan Patient Name: DOUGLAS HILLS Facility: [facility]:[place] : 1965 Planned Disposition: Shelter Facility Anticipated Discharge Date: Discharge Date: Expected LOS: Initial Reviewer: [email or web address] Initial Review Date: 07/17/2019 Generated: 07/24/19 11:51 am Comments DCP- Discharge Planning Updated by [id number]: Dori Young on 07/22/19 8:[address] Patient Name: DOUGLAS HILLS Admission Status: ER Accout number: [id number] Admission Date: 07-17-2019 : 1965 Admission Diagnosis: Attending: LIDIA HECK Current LOS: 5 Anticipated DC Date: Planned Disposition: Shelter Facility Primary Insurance: [facility] MEDICARE SOLUTIONS Discharge Planning Comments: CM met with patient to complete initial dc planning assessment. CM educated patient on the CM role and verbal consent given by patient to complete assessment. Patient lives at the [facility], but was in a skilled bed there from the last discharge from the hospital. At discharge patient plans to return to the [facility] to a skilled bed and feels this is a safe discharge. Patient has all the medical equipment she needs at the [facility]. She wears O2 and Bipap there. Patient denied known discharge needs at this time. CM will continue to follow and will assist as needed with dc plans/needs. Dipper Clock And Watch Hands: Dori Young DCPIA - Discharge Planning Initial Assessment Updated by [email or web address]: Dori Young on 07/22/19 9:32 am * Is the patient Alert and Oriented? Yes * How many steps to enter\exit or inside your home? * PCP MARIA R- [facility] * Pharmacy [facility] * Preadmission Environment Shelter Facility * Facility Name [facility] * ADLs Partial Dependent * Partial ADLs (Assistance needed) Ambulation Bathing Medication Management Toileting * Equipment BIPAP Oxygen * List name and contact numbers for known caregivers / representatives who currently or will assist patient after discharge: MONIE ALVAREZ (SON) [phone] CHANG ALVAREZ [phone] * Verbal permission to speak to the caregivers and representatives has been obtained from the patient. N/A * Additional services required to return to the preadmission environment? Yes * Can the patient safely return to the preadmission environment? Yes * Has this patient been hospitalized within the prior 30 days at any hospital? Yes External Providers External Provider: [facility] Next Contact Date: Service Request Date: Service Type: Resolution: Reviewer: Comments: Last DP export: 07/22/19 8:46 Patient Name: DOUGLAS HILLS Page [phone] at 1051 All edits/amendments must be made on the electronic document DICTATION DATE: 07/24/19 1051 HOSPICE COMMUNITY LIAISON: CLEMENT 07/24/19 1051 RPT#: [id number] DC DATE: STATUS: ADM IN [facility] [address] [place] [address] END OF REPORT
--- NOTE | 2019-07-24 11:12 | MORECARE ---
CASE MANAGEMENT DISCHARGE SUMMARY PATIENT: DOUGLAS HILLS UNIT: [id number] ADM DATE: 07/17/19 AGE: 53 : 63 SEX: F ROOM/BED: D.2240 AUTHOR: AMELIA MCGOVERN PHYSICIAN: REFERRING PHYSICIAN: LIDIA HECK MD DATE OF SERVICE: 07/24/19 Discharge Plan Patient Name: DOUGLAS HILLS Facility: [facility]:[place] : 1965 Planned Disposition: Long-Term Facility Anticipated Discharge Date: Discharge Date: Expected LOS: Initial Reviewer: [email or web address] Initial Review Date: 07/17/2019 Generated: 07/24/19 12:11 pm Comments DCP- Discharge Planning Updated by [id number]: Thelma Yusuf on 07/24/19 10:[address] Received orders for discharge. I spoke with charu Maxwell for [facility]. She will call me back with a pick up man time. She will need prior authorization to return to a skilled bed. CM will continue to follow and assist with discharge planning/needs. DCP- Discharge Planning Updated by [id number]: Dori Young on 07/22/19 8:[address] Patient Name: DOUGLAS HILLS Admission Status: ER Accout number: [id number] Admission Date: 07-17-2019 : 1965 Admission Diagnosis: Attending: LIDIA HECK Current LOS: 5 Anticipated DC Date: Planned Disposition: Long-Term Facility Primary Insurance: [facility] MEDICARE SOLUTIONS Discharge Planning Comments: CM met with patient to complete initial dc planning assessment. CM educated patient on the CM role and verbal consent given by patient to complete assessment. Patient lives at the [facility], but was in a skilled bed there from the last discharge from the hospital. At discharge patient plans to return to the [facility] to a skilled bed and feels this is a safe discharge. Patient has all the medical equipment she needs at the [facility]. She wears O2 and Bipap there. Patient denied known discharge needs at this time. CM will continue to follow and will assist as needed with dc plans/needs. Bag Printer: Dori Young DCPIA - Discharge Planning Initial Assessment Updated by [id number]: Dori Young on 07/22/19 9:32 am * Is the patient Alert and Oriented? Yes * How many steps to enter\exit or inside your home? * PCP [facility] * [facility] * Preadmission Environment Long-Term Facility * Facility Name [facility] * ADLs Partial Dependent * Partial ADLs (Assistance needed) Ambulation Bathing Medication Management Toileting * Equipment BIPAP Oxygen * List name and contact numbers for known caregivers / representatives who currently or will assist patient after discharge: MONIE ALVAREZ (SON) [phone] CHANG ALVAREZ [phone] * Verbal permission to speak to the caregivers and representatives has been obtained from the patient. N/A * Additional services required to return to the preadmission environment? Yes * Can the patient safely return to the preadmission environment? Yes * Has this patient been hospitalized within the prior 30 days at any hospital? Yes Coverage Notice Reviewer: [email or web address] Bayron Yusuf Notice Issued Date-Time: 07/24/2019 11:04 Notice Type: IM Discharge Notice Notice Delivered To: Patient Relationship to Patient: Self Senior Information Systems Architect Name: Delivery Method: HAND - Hand Delivered Adrianne Days: Prior Verbal Notification: Recipient Understood Notice: Yes Recipient Signature: Yes Med Rec Note Co-signed by Attending: Coverage Notice Comment: IMM EXPLAINED, SIGNED, GIVEN, COPY PLACED IN MR Last DP export: 07/24/19 9:51 am Patient Name: DOUGLAS HILLS Page [phone] at 1112 All edits/amendments must be made on the electronic document DICTATION DATE: 07/24/19 1111 LEATHER GRADER: CLEMENT 07/24/19 1111 RPT#: [id number] DC DATE: STATUS: ADM IN [facility] [address] [place] [address] END OF REPORT
[2019-07-24 12:36] VITALS: BP 130/58
[2019-07-24 16:40] VITALS: BP 130/60
--- NOTE | 2019-07-24 16:42 | MORECARE ---
CASE MANAGEMENT DISCHARGE SUMMARY PATIENT: DOUGLAS HILLS UNIT: [id number] ADM DATE: 07/17/19 AGE: 53 : 63 SEX: F ROOM/BED: D.2240 AUTHOR: AMELIA MCGOVERN PHYSICIAN: REFERRING PHYSICIAN: LIDIA HECK MD DATE OF SERVICE: 07/24/19 Discharge Plan Patient Name: DOUGLAS HILLS Facility: [facility]:[place] : 1965 Planned Disposition: Assisted Facility Anticipated Discharge Date: Discharge Date: Expected LOS: Initial Reviewer: [email or web address] Initial Review Date: 07/17/2019 Generated: 07/24/19 5:42 pm Comments DCP- Discharge Planning Updated by [id number]: Thelmamaria fernanda Yusuf on 07/24/19 3:[address] [facility] received insurance authorization. She will be discharging today to a skilled (Medicare) bed. DCP- Discharge Planning Updated by [id number]: Thelma Yusuf on 07/24/19 10:[address] Received orders for discharge. I spoke with charu Maxwell for [facility]. She will call me back with a lease picker time. She will need prior authorization to return to a skilled bed. CM will continue to follow and assist with discharge planning/needs. DCP- Discharge Planning Updated by [email or web address]: Dori Young on 07/22/19 8:[address] Patient Name: DOUGLAS HILLS Admission Status: ER Accout number: [id number] Admission Date: 07-17-2019 : 1965 Admission Diagnosis: Attending: LIDIA HECK Current LOS: 5 Anticipated DC Date: Planned Disposition: Assisted Facility Primary Insurance: [facility] MEDICARE SOLUTIONS Discharge Planning Comments: CM met with patient to complete initial dc planning assessment. CM educated patient on the CM role and verbal consent given by patient to complete assessment. Patient lives at the [facility], but was in a skilled bed there from the last discharge from the hospital. At discharge patient plans to return to the [facility] to a skilled bed and feels this is a safe discharge. Patient has all the medical equipment she needs at the [facility]. She wears O2 and Bipap there. Patient denied known discharge needs at this time. CM will continue to follow and will assist as needed with dc plans/needs. Verse Writer: Dori Young DCPIA - Discharge Planning Initial Assessment Updated by [email or web address]: Dori Young on 07/22/19 9:32 am * Is the patient Alert and Oriented? Yes * How many steps to enter\exit or inside your home? * PCP MARIA R- [facility] * Pharmacy [facility] * Preadmission Environment Assisted Facility * Facility Name [facility] * ADLs Partial Dependent * Partial ADLs (Assistance needed) Ambulation Bathing Medication Management Toileting * Equipment BIPAP Oxygen * List name and contact numbers for known caregivers / representatives who currently or will assist patient after discharge: MONIE ALVAREZ (SON) [phone] CHANG ALVAREZ [phone] * Verbal permission to speak to the caregivers and representatives has been obtained from the patient. N/A * Additional services required to return to the preadmission environment? Yes * Can the patient safely return to the preadmission environment? Yes * Has this patient been hospitalized within the prior 30 days at any hospital? Yes Coverage Notice Reviewer: [id number] Bayron Yusuf Notice Issued Date-Time: 07/24/2019 11:04 Notice Type: IM Discharge Notice Notice Delivered To: Patient Relationship to Patient: Self Area Attendant Name: Delivery Method: HAND - Hand Delivered Adrianne Days: Prior Verbal Notification: Recipient Understood Notice: Yes Recipient Signature: Yes Med Rec Note Co-signed by Attending: Coverage Notice Comment: IMM EXPLAINED, SIGNED, GIVEN, COPY PLACED IN MR Last DP export: 07/24/19 10:12 am Patient Name: DOUGLAS HILLS Page 52035 at 1642 All edits/amendments must be made on the electronic document DICTATION DATE: 07/24/191641 COMMERCIAL SALES MANAGER: CLEMENT 07/24/191641 RPT#: [id number] DC DATE: STATUS: ADM IN [facility] [address] [place] [address] END OF REPORT
--- NOTE | 2019-07-26 09:54 | MORECARE ---
CASE MANAGEMENT DISCHARGE SUMMARY PATIENT: DOUGLAS HILLS UNIT: [id number] ADM DATE: 07/17/19 AGE: 54 : 63 SEX: F ROOM/BED: D.2240 AUTHOR: AMELIA MCGOVERN PHYSICIAN: REFERRING PHYSICIAN: LIDIA HECK MD DATE OF SERVICE: 07/26/19 Discharge Plan Patient Name: DOUGLAS HILLS Facility: [facility]:[place] : 1965 Planned Disposition: Detention Facility Anticipated Discharge Date: Discharge Date: 07/24/2019 Expected LOS: Initial Reviewer: [email or web address] Initial Review Date: 07/17/2019 Generated: 07/26/19 10:53 am Comments DCP- Discharge Planning Updated by [email or web address]: Thelma Yusuf on 07/24/19 3:[address] [facility] received insurance authorization. She will be discharging today to a skilled (Medicare) bed. DCP- Discharge Planning Updated by [email or web address]: Thelma Yusuf on 07/24/19 10:[address] Received orders for discharge. I spoke with charu Maxwell for [facility]. She will call me back with a picking supervisor time. She will need prior authorization to return to a skilled bed. CM will continue to follow and assist with discharge planning/needs. DCP- Discharge Planning Updated by [email or web address]: Dori Young on 07/22/19 8:[address] Patient Name: DOUGLAS HILLS Admission Status: ER Accout number: [id number] Admission Date: 07-17-2019 : 1965 Admission Diagnosis: Attending: LIDIA HECK Current LOS: 5 Anticipated DC Date: Planned Disposition: Detention Facility Primary Insurance: [facility] MEDICARE SOLUTIONS Discharge Planning Comments: CM met with patient to complete initial dc planning assessment. CM educated patient on the CM role and verbal consent given by patient to complete assessment. Patient lives at the [facility], but was in a skilled bed there from the last discharge from the hospital. At discharge patient plans to return to the [facility] to a skilled bed and feels this is a safe discharge. Patient has all the medical equipment she needs at the [facility]. She wears O2 and Bipap there. Patient denied known discharge needs at this time. CM will continue to follow and will assist as needed with dc plans/needs. Underground Miner: Dori Young DCPIA - Discharge Planning Initial Assessment Updated by [email or web address]: Dori Young on 07/22/19 9:32 am * Is the patient Alert and Oriented? Yes * How many steps to enter\exit or inside your home? * PCP MARIA R- [facility] * Pharmacy [facility] * Preadmission Environment Detention Facility * Facility Name [facility] * ADLs Partial Dependent * Partial ADLs (Assistance needed) Ambulation Bathing Medication Management Toileting * Equipment BIPAP Oxygen * List name and contact numbers for known caregivers / representatives who currently or will assist patient after discharge: MONIE ALVAREZ (SON) [phone] CHANG ALVAREZ [phone] * Verbal permission to speak to the caregivers and representatives has been obtained from the patient. N/A * Additional services required to return to the preadmission environment? Yes * Can the patient safely return to the preadmission environment? Yes * Has this patient been hospitalized within the prior 30 days at any hospital? Yes Coverage Notice Reviewer: [id number] - Thelma Yusuf Notice Issued Date-Time: 07/24/2019 11:04 Notice Type: IM Discharge Notice Notice Delivered To: Patient Relationship to Patient: Self Institutional Aide Name: Delivery Method: HAND - Hand Delivered Adrianne Days: Prior Verbal Notification: Recipient Understood Notice: Yes Recipient Signature: Yes Med Rec Note Co-signed by Attending: Coverage Notice Comment: IMM EXPLAINED, SIGNED, GIVEN, COPY PLACED IN MR Last DP export: 07/24/19 3:42 pm Patient Name: DOUGLAS HILLS Page 42579 at 0954 All edits/amendments must be made on the electronic document DICTATION DATE: 07/26/19953 CIA AGENT: CLEMENT 07/26/19953 RPT#: [id number] DC DATE:07/24/19 STATUS: DIS IN [facility] [address] [place] [address] END OF REPORT
== END 2019-07-24 17:37 | DRG 291 ==
LOC: D.ER 14:07 → D.MS 20:49
PROVIDERS: Family Medicine; ADMIT Legal Medicine; ATTEND Legal Medicine
DX: I11.0 Hypertensive heart disease with heart failure (principal); J96.22 Acute and chronic respiratory failure with hypercapnia; G93.41 Metabolic encephalopathy; J96.21 Acute and chronic respiratory failure with hypoxia; E66.2 Morbid (severe) obesity with alveolar hypoventilation; Z68.45 Body mass index [BMI] 70 or greater, adult; I50.33 Acute on chronic diastolic (congestive) heart failure; E11.9 Type 2 diabetes mellitus without complications; J44.9 Chronic obstructive pulmonary disease, unspecified; D50.9 Iron deficiency anemia, unspecified; E03.9 Hypothyroidism, unspecified

== ENCOUNTER 2019-09-10 21:12 | Inpatient (IN) | payer MEDICARE, MEDICAID ==
[~2019-09-10] VITALS: Ht 152.4 cm; Wt 156.0 kg
--- NOTE | 2019-09-10 21:26 | NUR ---
PT USES BIPAP AT NH
[2019-09-10 22:10] LABS: BASOPHILS 0.2 % (0-2); EOSINOPHILS 2.1 % (0-7); IMMATURE GRANULOCYTES 0.8 % (0-5); LYMPHOCYTES 10.4 % (15-50); MCH 25.1 pg (26.0-34.0); MCHC 28.6 g/dL (31.0-37.0); MCV 87.9 fL (80.0-100.0); MEAN PLATELET VOLUME 10.1 fL (7.4-10.4); MONOCYTES 7.6 % (2-11); NEUTROPHILS 78.9 % (40-80); PLATELET COUNT 236 10x3/uL (130-400); RBC 3.98 10x6/uL (4.00-5.40); RDW 15.5 % (11.5-14.5); WBC 11.2 10x3/uL (4.8-10.8)
[2019-09-10 22:18] LABS: APTT 26.3 SECONDS (22.8-39.4); INR 0.97 (0.85-1.17); PROTIME 12.8 SECONDS (11.6-15.0)
[2019-09-10 22:21] LABS: CALCIUM 9.4 mg/dL (8.5-10.1); CHLORIDE - SERUM 97 mmol/L (98-107); CREATININE - SERUM 0.8 mg/dL (0.6-1.3); POTASSIUM - SERUM 4.1 mmol/L (3.5-5.1); SODIUM 144 mmol/L (136-145); UREA NITROGEN 24 mg/dL (7-18); eGFR NON AFRICAN AMERICAN 79 mL/min (90-120)
[2019-09-10 22:31] LABS: CALC OSMOLALITY 291 mosm/kg (275-300); GLUCOSE 110 mg/dL (74-106)
[2019-09-10 22:33] LABS: CARBON DIOXIDE 46.6 mmol/L (21.0-32.0)
[2019-09-10 22:35] LABS: ALKALINE PHOSPHATASE 96 U/L (30-120); BILIRUBIN - TOTAL 0.49 mg/dL (0.2-1.3); CKMB 0.2 U/L (0.0-3.6); CREATINE KINASE 40 UL (21-215); PRO BNP 159 pg/mL (0-125); PROTEIN - SERUM 6.8 g/dL (6.4-8.2)
--- NOTE | 2019-09-10 22:55 | NUR ---
REPORT GIVEN TO LISANDRA ROLLINS.
[2019-09-10 22:57] LABS: TROPONIN-I < 0.017 ng/mL (0.000-0.060)
[2019-09-10 23:00] VITALS: BP 102/57
--- NOTE | 2019-09-10 23:00 | NUR ---
PT DENIES PAIN.
[2019-09-10 23:24] VITALS: BP 109/59; BMI 67.5
--- NOTE | 2019-09-10 23:24 | NUR ---
PATIENT ARRIVED TO ROOM 2304 VIA STRETCHER, ACCOMPANIED BY ER STAFF AND RESPIRATORY STAFF. ALL MONITORING INITIATED. CONFUSED, REORIENTATION PROVIDED. VITAL SIGNS STABLE. DENIES PAIN OR NEEDS. ADMISSION ASSESSMENT COMPLETED PER FLOW SHEET, SEE FOR DETAILS. WILL CONTINUE TO MONITOR.
[2019-09-10 23:38] LABS: ALT (SGPT) 19 U/L (10-68)
[2019-09-11] VITALS (11 sets, daily range): BP systolic 99–142; BP diastolic 36–124; Ht 152.4 cm; Wt 156.0 kg
--- NOTE | 2019-09-11 01:00 | NUR ---
RESTING ON BIPAP, NO ACUTE CHANGES NOTED, DENIES NEEDS. WILL CONTINUE TO MONITOR.
--- NOTE | 2019-09-11 03:00 | NUR ---
NO ACUTE CHANGES NOTED, X1 INCONTINENT URINE EPISODE, PATIENT CLEANED AND BED LINEN CHANGE PROVIDED. PUREWIC PLACED, AND TEACHING PROVIDED REGARDING PURWIC, PATIENT VERBALIZED UNDERSTANDING. VSS. DENIES OTHER NEEDS. CALL LIGHT WITHIN REACH. WILL CONTINUE TO MONITOR.
--- NOTE | 2019-09-11 05:00 | NUR ---
NO ACUTE CHANGES NOTED, DENIES NEEDS. RESTING ON BIPAP. WILL CONTINUE TO MONITOR. CALL LIGHT WITHIN REACH.
--- NOTE | 2019-09-11 07:15 | NUR ---
REPORT RECEIVED. PT ADMITTED DURING NIGHT FOR HYPERCAPNIA AND DYSPNEA. TOLD IN THE REPORT THAT PT IS AN OVERFLOW PT. PT IS ON BIPAP. SHE HAS AN IV TO HER LEFT BREAST THAT IS SALINE LOCKED. SHE HAS A PUREWICK CATH ON. SHE HAS SOME EXCORIATION UNDER HER BREAST BILATERALLY AND ALSO IN ABD FOLDS. VSS. WILL CONTINUE TO MONITOR.
--- NOTE | 2019-09-11 09:01 | NUR ---
PT RESTING QUIETLY. VSS. ON BIPAP. WILL CONTINUE TO MONITOR.
--- NOTE | 2019-09-11 10:50 | NUR ---
ATTEMPED TO CALL PT'S DAUGHTER PER REQUEST. NO ANSWER. ALSO TRIED TO FIND PT'S CELL PHONE. FOUND PHONE SHOOTER HELPER BUT NOT PHONE. CALLED ER TO SEE IF THEY WOULD LOOK FOR IT.
--- NOTE | 2019-09-11 12:05 | NUR ---
PT ON HIGH FLOW O2 AT 4L. SITTING UP IN BED EATING LUNCH. WILL CONTINUE TO MONITOR.
--- NOTE | 2019-09-11 15:35 | NUR ---
PT'S PHONE FOUND. REPORT CALLED TO MED-SURG.
--- NOTE | 2019-09-11 16:00 | NUR ---
TO ROOM 2214 FROM ICU VIA BED. REDNESS NOTED TO ABD FOLDS AND UNDER BREAST. SOME REDNESS NOTED TO BUTTOCKS. ORIENTATION TO ROOM WITH PT. CALL LIGHT IN REACH
--- NOTE | 2019-09-11 19:30 | NUR ---
A&O X 4, REPORTS MODERATE PAIN TO HER BACK. 6/10. 4L O2 VIA NASAL CANNULA IN USE. NO NEEDS AT THIS TIME, WILL CONTINUE TO MONITOR.
--- NOTE | 2019-09-11 19:40 | MORECARE ---
CASE MANAGEMENT DISCHARGE SUMMARY PATIENT: DOUGLAS HILLS UNIT: [id number] ADM DATE: 09/10/19 AGE: 54 : 63 SEX: F ROOM/BED: D.2214 AUTHOR: AMELIA MCGOVERN PHYSICIAN: REFERRING PHYSICIAN: LIDIA HECK MD DATE OF SERVICE: 09/11/19 Discharge Plan Patient Name: DOUGLAS HILLS Facility: [facility]:[place] : 1965 Planned Disposition: Nursing Facility [facility] Cert Anticipated Discharge Date: Discharge Date: Expected LOS: Initial Reviewer: [email or web address] Initial Review Date: 09/11/2019 Generated: 09/11/19 8:39 pm DCPIA - Discharge Planning Initial Assessment Updated by [email or web address]: Ginny Saavedra on 09/11/19 7:38 pm * Is the patient Alert and Oriented? Yes * How many steps to enter\exit or inside your home? * PCP MARIA R GUTIERREZ [facility] * Pharmacy [facility] * Preadmission Environment [facility] * Facility Name [facility] * ADLs Partial Dependent * Partial ADLs (Assistance needed) Ambulation Bathing Dressing Eating Medication Management Toileting Transfers * Equipment BIPAP * List name and contact numbers for known caregivers / representatives who currently or will assist patient after discharge: ALMA ALVAREZ - [facility] - [phone] * Verbal permission to speak to the caregivers and representatives has been obtained from the patient. Yes * Community resources currently utilized None * Additional services required to return to the preadmission environment? No * Can the patient safely return to the preadmission environment? Yes * Has this patient been hospitalized within the prior 30 days at any hospital? Yes Patient Name: DOUGLAS HILLS Page 25373 at 1940 All edits/amendments must be made on the electronic document DICTATION DATE: 09/11/191938 SHAMPOO ASSISTANT: CLEMENT 09/11/191938 RPT#: [id number] DC DATE: STATUS: ADM IN [facility] [address] [place] [address] END OF REPORT
--- NOTE | 2019-09-11 19:52 | MORECARE ---
CASE MANAGEMENT DISCHARGE SUMMARY PATIENT: DOUGLAS HILLS UNIT: [id number] ADM DATE: 09/10/19 AGE: 54 : 63 SEX: F ROOM/BED: D.2214 AUTHOR: FROILAN,DOC PHYSICIAN: REFERRING PHYSICIAN: LIDIA HECK MD DATE OF SERVICE: 09/11/19 Discharge Plan Patient Name: DOUGLAS HILLS Facility: [facility]:[place] : 1965 Planned Disposition: Nursing Facility [facility] Cert Anticipated Discharge Date: Discharge Date: Expected LOS: Initial Reviewer: [email or web address] Initial Review Date: 09/11/2019 Generated: 09/11/19 8:52 pm Comments DCP- Discharge Planning Updated by [email or web address]: Ginny Saavedra on 09/11/19 6:[address] Patient Name: DOUGLAS HILLS Admission Status: ER Accout number: [id number] Admission Date: 09-10-2019 : 1965 Admission Diagnosis: Attending: LIDIA HECK Current LOS: 1 Anticipated DC Date: Planned Disposition: Nursing Facility [facility] Cert Primary Insurance: [facility] MEDICARE SOLUTIONS Discharge Planning Comments: CM met with patient to complete initial dc planning assessment. CM educated patient on the CM role and verbal consent given by patient to complete assessment. Patient is a resident at [facility] She will return to the facility at time of discharge. Patient agrees this is a safe discharge plan. Transportation provider at discharge will be [facility] . MATT signed for [facility] CM will continue to follow and will assist as needed with dc plans/needs. Sports Anchor: Ginny Saavedra DCPIA - Discharge Planning Initial Assessment Updated by [email or web address]: Ginny Saavedra on 09/11/19 7:38 pm * Is the patient Alert and Oriented? Yes * How many steps to enter\exit or inside your home? * PCP MARIA R - [facility] * Pharmacy [facility] * [facility] * Facility Name [facility] * ADLs Partial Dependent * Partial ADLs (Assistance needed) Ambulation Bathing Dressing Eating Medication Management Toileting Transfers * Equipment BIPAP * List name and contact numbers for known caregivers / representatives who currently or will assist patient after discharge: ALMA ALVAREZ - DAUGHTER - [phone] * Verbal permission to speak to the caregivers and representatives has been obtained from the patient. Yes * Community resources currently utilized None * Additional services required to return to the preadmission environment? No * Can the patient safely return to the preadmission environment? Yes * Has this patient been hospitalized within the prior 30 days at any hospital? Yes Last DP export: 09/11/19 6:40 p Patient Name: DOUGLAS HILLS Page [id number] at 1951 All edits/amendments must be made on the electronic document DICTATION DATE: 09/11/191951 BUMPER OPERATOR: CLEMENT 09/11/191951 RPT#: [id number] DC DATE: STATUS: ADM IN [facility] [address] [place] [address] END OF REPORT
[2019-09-12] VITALS: BP 92/52
[2019-09-12 04:00] VITALS: BP 120/49
[2019-09-12 04:16] LABS: BASOPHILS 0.1 % (0-2); EOSINOPHILS 0.1 % (0-7); HEMOGLOBIN 9.7 g/dL (12-16); IMMATURE GRANULOCYTES 0.7 % (0-5); LYMPHOCYTES 9.3 % (15-50); MCH 24.6 pg (26.0-34.0); MCHC 28.5 g/dL (31.0-37.0); MCV 86.3 fL (80.0-100.0); MEAN PLATELET VOLUME 8.7 fL (7.4-10.4); MONOCYTES 2.9 % (2-11); NEUTROPHILS 86.9 % (40-80); PLATELET COUNT 271 10x3/uL (130-400); RBC 3.94 10x6/uL (4.00-5.40); RDW 15.2 % (11.5-14.5); WBC 13.2 10x3/uL (4.8-10.8)
[2019-09-12 04:36] LABS: ALBUMIN 3.1 g/dL (3.4-5.0); BILIRUBIN - TOTAL 0.33 mg/dL (0.2-1.3); MAGNESIUM - SERUM 1.8 mg/dL (1.8-2.4); PHOSPHOROUS 4.6 mg/dL (2.5-4.9); PROTEIN - SERUM 7.6 g/dL (6.4-8.2)
[2019-09-12 04:45] LABS: CREATININE - SERUM 1.4 mg/dL (0.6-1.3)
--- NOTE | 2019-09-12 08:04 | NUR ---
ALERT AND ORIENTED. LUNGS DIMINISHED BILATERALLY. HEART SOUNDS S1 AND S2 HEARD IN ALL CHAVEZ. BOWEL SOUNDS ACTIVE X 4. SKIN INTACT WITHOUT REDNESS. IV TO LEFT CHEST PATENT WITHOUT REDNESS. DENIES NEEDS. BED LOW. CALL MOMIN AND PERSONAL ITEMS IN REACH. WILL CONTINUE TO MONITOR.
[2019-09-12 09:48] VITALS: BP 101/34
--- NOTE | 2019-09-12 12:58 | NUR ---
RESTING IN BED. DENIES NEEDS. WILL CONTINUE TO MONITOR.
--- NOTE | 2019-09-12 13:19 | NUR ---
Nutrition follow-up: Pt diet advanced to low sodium PO intake 100% of dinner last night Labs reviewed WT: 343# PO intake is usually very good RDN following.
[2019-09-12 13:40] VITALS: BP 114/47
[2019-09-12 16:28] VITALS: BP 112/58
--- NOTE | 2019-09-12 19:00 | NUR ---
PATIENT ALERT AND ORIENTED. CONTACT PRECAUTIONS IN PLACE. WEARING 4L HFC. GENERALIZED EDEMA ALL OVER. RIGHT SIDED CHEST IV THAT IS INFUSING NS @ KVO RATE. INSTRUCTED ON NEED FOR SPUTUM SAMPLE. PATIENT VERBALIZES UNDERSTANDING. DENIES FURTHER NEEDS AT THIS TIME. CALL LIGHT IN REACH. CPOC.
--- NOTE | 2019-09-12 22:17 | NUR ---
RESITED IV TO THE RIGHT HAND. 22G X1 ATTEMPT
--- NOTE | 2019-09-12 22:18 | NUR ---
HELD PATIENT LASIX DUE TO LOW BP
--- NOTE | 2019-09-13 03:15 | NUR ---
RESTING WITH NO SIGNS OR SYMPTOMS OF DISTRESS. CALL LIGHT IN REACH. CPOC.
[2019-09-13 04:00] VITALS: BP 117/56
--- NOTE | 2019-09-13 06:32 | NUR ---
I have reviewed this patient and I concur with the Shift Assessment completed by the Licensed Practical Nurse today this shift.
--- NOTE | 2019-09-13 07:10 | NUR ---
REC'D IN BED AWAKE AND ALERT. RESP EVEN AND UNLABORED WITH NO DISTRESS NOTED HAS O2 IN USE VIA N/C 4 L/M. DENIES ANY PAIN OR DISCOMFORT AT THIS TIME. ASSESSMENT COMPLETED. C/L IN REACH AT BEDSIDE.
[2019-09-13 07:39] LABS: BASOPHILS 0 % (0-2); EOSINOPHILS 0 % (0-7); HEMATOCRIT 32.9 % (36.0-48.0); HEMOGLOBIN 9.4 g/dL (12-16); IMMATURE GRANULOCYTES 0.5 % (0-5); LYMPHOCYTES 11.1 % (15-50); MCH 24.5 pg (26.0-34.0); MCHC 28.6 g/dL (31.0-37.0); MCV 85.7 fL (80.0-100.0); MEAN PLATELET VOLUME 8.8 fL (7.4-10.4); MONOCYTES 4.7 % (2-11); NEUTROPHILS 83.7 % (40-80); PLATELET COUNT 236 10x3/uL (130-400); RBC 3.84 10x6/uL (4.00-5.40); RDW 15.3 % (11.5-14.5); WBC 12.3 10x3/uL (4.8-10.8)
[2019-09-13 08:28] VITALS: BP 94/39
[2019-09-13 08:30] LABS: ANION GAP 8.1 mmol/L (8-16); CALCIUM 8.7 mg/dL (8.5-10.1); CREATININE - SERUM 1.2 mg/dL (0.6-1.3); PHOSPHOROUS 4.9 mg/dL (2.5-4.9); POTASSIUM - SERUM 3.9 mmol/L (3.5-5.1)
[2019-09-13 08:32] LABS: CARBON DIOXIDE 41.8 mmol/L (21.0-32.0)
[2019-09-13 14:07] VITALS: BP 106/60
--- NOTE | 2019-09-13 14:44 | NUR ---
I have reviewed this patient and I concur with the Shift Assessment completed by the Licensed Practical Nurse today this shift.
[2019-09-13 16:19] VITALS: BP 109/47
--- NOTE | 2019-09-13 18:58 | NUR ---
C/O BACK AND KNEE PAIN RATING 7/10 MEDICATED WITH NORCO
[2019-09-13 23:31] VITALS: BP 122/55
[2019-09-14 03:48] VITALS: BP 118/62
[2019-09-14 04:00] VITALS: BP 131/46
[2019-09-14 06:19] LABS: BASOPHILS 0.1 % (0-2); EOSINOPHILS 0.7 % (0-7); HEMATOCRIT 33.2 % (36.0-48.0); HEMOGLOBIN 9.5 g/dL (12-16); IMMATURE GRANULOCYTES 0.4 % (0-5); LYMPHOCYTES 17.2 % (15-50); MCH 24.6 pg (26.0-34.0); MCHC 28.6 g/dL (31.0-37.0); MEAN PLATELET VOLUME 8.9 fL (7.4-10.4); MONOCYTES 11.1 % (2-11); NEUTROPHILS 70.5 % (40-80); PLATELET COUNT 205 10x3/uL (130-400); RBC 3.86 10x6/uL (4.00-5.40); RDW 15.4 % (11.5-14.5); WBC 10.7 10x3/uL (4.8-10.8)
[2019-09-14 06:45] LABS: ANION GAP 2.1 mmol/L (8-16); CALCIUM 9.4 mg/dL (8.5-10.1); CREATININE - SERUM 1.2 mg/dL (0.6-1.3); POTASSIUM - SERUM 3.5 mmol/L (3.5-5.1)
[2019-09-14 06:55] LABS: CARBON DIOXIDE 42.4 mmol/L (21.0-32.0)
--- NOTE | 2019-09-14 09:00 | NUR ---
ASSESSMENT PER FLOW SHEET. PT IS WITHOUT DISTRESS.ISOLATION MAINTAINED
[2019-09-14 09:15] VITALS: BP 142/45
[2019-09-14 12:27] VITALS: BP 116/54
[2019-09-14 17:40] VITALS: BP 108/46
--- NOTE | 2019-09-14 18:44 | NUR ---
PT IS WITHOUT DISTRESS.WITHOUT CHANGE.CONT PLANOF CARE
[2019-09-15] VITALS: BP 106/54
[2019-09-15 00:39] VITALS: BP 120/54
[2019-09-15 04:00] VITALS: BP 120/54
[2019-09-15 04:32] LABS: BASOPHILS 0 % (0-2); EOSINOPHILS 0.3 % (0-7); HEMATOCRIT 31.9 % (36.0-48.0); HEMOGLOBIN 9.2 g/dL (12-16); IMMATURE GRANULOCYTES 0.3 % (0-5); LYMPHOCYTES 12.6 % (15-50); MCH 24.7 pg (26.0-34.0); MCHC 28.8 g/dL (31.0-37.0); MCV 85.8 fL (80.0-100.0); MEAN PLATELET VOLUME 8.9 fL (7.4-10.4); NEUTROPHILS 77.8 % (40-80); PLATELET COUNT 206 10x3/uL (130-400); RBC 3.72 10x6/uL (4.00-5.40); RDW 15.2 % (11.5-14.5); WBC 12.4 10x3/uL (4.8-10.8)
[2019-09-15 04:56] LABS: ANION GAP 6.4 mmol/L (8-16); CALCIUM 8.9 mg/dL (8.5-10.1); CREATININE - SERUM 1.1 mg/dL (0.6-1.3); POTASSIUM - SERUM 3.1 mmol/L (3.5-5.1)
[2019-09-15 05:35] LABS: CARBON DIOXIDE 40.7 mmol/L (21.0-32.0)
--- NOTE | 2019-09-15 08:00 | NUR ---
ASSESSMENT PER FLOW SHEET.PT IS WITHOUT DISTRESS. CONTACT ISOLATIO MAINTAINED.MONITOR FOR NEEDS
[2019-09-15] MEDS ORDERED: LASIX40 MG PO (08:41)
[2019-09-15] MEDS ORDERED: LEVOFLOXACIN500 MG PO (09:03)
[2019-09-15 09:31] VITALS: BP 109/61
--- NOTE | 2019-09-15 11:49 | MORECARE ---
CASE MANAGEMENT DISCHARGE SUMMARY PATIENT: DOUGLAS HILLS UNIT: [id number] ADM DATE: 09/10/19 AGE: 54 : 63 SEX: F ROOM/BED: D.2214 AUTHOR: FROILAN,DOC PHYSICIAN: REFERRING PHYSICIAN: LIDIA HECK MD DATE OF SERVICE: 09/15/19 Discharge Plan Patient Name: DOUGLAS HILLS Facility: [facility]:[place] : 1965 Planned Disposition: Nursing Facility [facility] Cert Anticipated Discharge Date: Discharge Date: Expected LOS: Initial Reviewer: [email or web address] Initial Review Date: 09/11/2019 Generated: 09/15/19 12:48 pm Comments DCP- Discharge Planning Updated by [email or web address]: Dori Young on 09/15/19 10:[address] PATIENT WILL BE DISCHARGING HOME TO THE [facility] IN A [facility] BED WHERE SHE CAME FROM. THEY WILL BE TRANSFERING HER VIA THEIR VAN. IMM SERVED AND EXPLAINED. I HAVE FAXED CLINICAL TO THE [facility] DCP- Discharge Planning Updated by [email or web address]: Ginny Saavedra on 09/11/19 6:[address] Patient Name: DOUGLAS HILLS Admission Status: ER Accout number: [id number] Admission Date: 09-10-2019 : 1965 Admission Diagnosis: Attending: LIDIA HECK Current LOS: 1 Anticipated DC Date: Planned Disposition: Nursing Facility [facility] Cert Primary Insurance: [facility] MEDICARE SOLUTIONS Discharge Planning Comments: CM met with patient to complete initial dc planning assessment. CM educated patient on the CM role and verbal consent given by patient to complete assessment. Patient is a resident at [facility] She will return to the facility at time of discharge. Patient agrees this is a safe discharge plan. Transportation provider at discharge will be [facility] . MATT signed for [facility] CM will continue to follow and will assist as needed with dc plans/needs. Manufacturing Engineering Technician: Ginny Saavedra DCPIA - Discharge Planning Initial Assessment Updated by [email or web address]: Ginny Saavedra on 09/11/19 7:38 pm * Is the patient Alert and Oriented? Yes * How many steps to enter\exit or inside your home? * PCP MARIA R GUTIERREZ [facility] * Pharmacy [facility] * Preadmission Environment [employer] [facility]Term * Facility Name [facility] * ADLs Partial Dependent * Partial ADLs (Assistance needed) Ambulation Bathing Dressing Eating Medication Management Toileting Transfers * Equipment BIPAP * List name and contact numbers for known caregivers / representatives who currently or will assist patient after discharge: ALMA ALVAREZ - DAUGHTER - [phone] * Verbal permission to speak to the caregivers and representatives has been obtained from the patient. Yes * Community resources currently utilized None * Additional services required to return to the preadmission environment? No * Can the patient safely return to the preadmission environment? Yes * Has this patient been hospitalized within the prior 30 days at any hospital? Yes External Providers [facility] Next Contact Date: Service Request Date: Service Type: Resolution: Reviewer: Comments: Last DP export: 09/11/19 6:52 p Patient Name: DOUGLAS HILLS Page 98076 at 1149 All edits/amendments must be made on the electronic document DICTATION DATE: 09/15/19 1148 HOSE WRAPPER: CLEMENT 09/15/19 1148 RPT#: [id number] DC DATE: STATUS: ADM IN [facility] [address] [place] [address] END OF REPORT
--- NOTE | 2019-09-15 12:07 | NUR ---
[facility]
--- NOTE | 2019-09-15 12:20 | NUR ---
LEFT UNIT VIA WHEELCHAIR FOR TRANSPORT TO THE [facility]
--- NOTE | 2019-09-17 12:51 | MORECARE ---
CASE MANAGEMENT DISCHARGE SUMMARY PATIENT: DOUGLAS HILLS UNIT: [id number] ADM DATE: 09/10/19 AGE: 54 : 63 SEX: F ROOM/BED: D.2214 AUTHOR: FROILAN,DOC PHYSICIAN: REFERRING PHYSICIAN: LIDIA HECK MD DATE OF SERVICE: 09/17/19 Discharge Plan Patient Name: DOUGLAS HILLS Facility: [facility]:[place] : 1965 Planned Disposition: Nursing Facility [facility] Cert Anticipated Discharge Date: Discharge Date: 09/15/2019 Expected LOS: 0 Initial Reviewer: [email or web address] Initial Review Date: 09/11/2019 Generated: 09/17/19 1:51 pm Comments DCP- Discharge Planning Updated by [email or web address]: Dori Young on 09/15/19 10:[address] PATIENT WILL BE DISCHARGING HOME TO THE [facility] IN A DETENTION BED WHERE SHE CAME FROM. THEY WILL BE TRANSFERING HER VIA THEIR VAN. IMM SERVED AND EXPLAINED. I HAVE FAXED CLINICAL TO THE [facility] DCP- Discharge Planning Updated by [email or web address]: Ginny Saavedra on 09/11/19 6:[address] Patient Name: DOUGLAS HILLS Admission Status: ER Accout number: [id number] Admission Date: 09-10-2019 : 1965 Admission Diagnosis: Attending: LIDIA HECK Current LOS: 1 Anticipated DC Date: Planned Disposition: Nursing Facility [facility] Cert Primary Insurance: [facility] MEDICARE SOLUTIONS Discharge Planning Comments: CM met with patient to complete initial dc planning assessment. CM educated patient on the CM role and verbal consent given by patient to complete assessment. Patient is a resident at [facility] She will return to the facility at time of discharge. Patient agrees this is a safe discharge plan. Transportation provider at discharge will be [facility] . MATT signed for [facility] CM will continue to follow and will assist as needed with dc plans/needs. Field Marketer: Ginny Saavedra DCPIA - Discharge Planning Initial Assessment Updated by [email or web address]: Ginny Saavedra on 09/11/19 7:38 pm * Is the patient Alert and Oriented? Yes * How many steps to enter\exit or inside your home? * PCP MARIA [facility] * Pharmacy [facility] * Preadmission Environment [facility] * Facility Name [facility] * ADLs Partial Dependent * Partial ADLs (Assistance needed) Ambulation Bathing Dressing Eating Medication Management Toileting Transfers * Equipment BIPAP * List name and contact numbers for known caregivers / representatives who currently or will assist patient after discharge: ALMA ALVAREZ - [facility] - [phone] * Verbal permission to speak to the caregivers and representatives has been obtained from the patient. Yes * Community resources currently utilized None * Additional services required to return to the preadmission environment? No * Can the patient safely return to the preadmission environment? Yes * Has this patient been hospitalized within the prior 30 days at any hospital? Yes Coverage Notice Reviewer: [email or web address] Bayron Young Notice Issued Date-Time: 09/15/2019 11:45 Notice Type: IM Discharge Notice Notice Delivered To: Patient Relationship to Patient: Transportation Director Name: Delivery Method: HAND - Hand Delivered Adrianne Days: Prior Verbal Notification: Recipient Understood Notice: Yes Recipient Signature: Yes Med Rec Note Co-signed by Attending: Coverage Notice Comment: Last DP export: 09/15/19 10:48 a Patient Name: DOUGLAS HILLS Page 56555 at 1251 All edits/amendments must be made on the electronic document DICTATION DATE: 09/17/19 1251 TOP LIFT COMPRESSER: CLEMENT 09/17/19 1251 RPT#: [id number] DC DATE:09/15/19 STATUS: DIS IN [facility] [address] [place] [address] END OF REPORT
== END 2019-09-15 12:21 | DRG 291 ==
LOC: D.ER 21:12 → D.ICU 21:54 → D.MS 21:54
PROVIDERS: Emergency Medicine; Internal Medicine Pulmonary Disease; ADMIT Legal Medicine; ATTEND Legal Medicine
DX: I11.0 Hypertensive heart disease with heart failure (principal); J96.22 Acute and chronic respiratory failure with hypercapnia; J96.21 Acute and chronic respiratory failure with hypoxia; J18.9 Pneumonia, unspecified organism; E66.2 Morbid (severe) obesity with alveolar hypoventilation; Z68.44 Body mass index [BMI] 60.0-69.9, adult; N17.9 Acute kidney failure, unspecified; I50.33 Acute on chronic diastolic (congestive) heart failure; E11.9 Type 2 diabetes mellitus without complications; J44.9 Chronic obstructive pulmonary disease, unspecified; D50.9 Iron deficiency anemia, unspecified; E03.9 Hypothyroidism, unspecified; E78.5 Hyperlipidemia, unspecified; K21.9 Gastro-esophageal reflux disease without esophagitis

== ENCOUNTER 2019-09-30 15:29 | Inpatient (IN) | payer MEDICARE, MEDICAID ==
[~2019-09-30] VITALS: Ht 152.4 cm; Wt 158.8 kg
[2019-09-30 16:06] LABS: BASOPHILS 0.1 % (0-2); EOSINOPHILS 1.9 % (0-7); HEMATOCRIT 30.2 % (36.0-48.0); HEMOGLOBIN 8.6 g/dL (12-16); IMMATURE GRANULOCYTES 0.9 % (0-5); LYMPHOCYTES 9.8 % (15-50); MCH 24.5 pg (26.0-34.0); MCHC 28.5 g/dL (31.0-37.0); MEAN PLATELET VOLUME 8.8 fL (7.4-10.4); MONOCYTES 6.3 % (2-11); PLATELET COUNT 192 10x3/uL (130-400); RBC 3.51 10x6/uL (4.00-5.40); RDW 16.1 % (11.5-14.5); WBC 12.1 10x3/uL (4.8-10.8)
[2019-09-30 16:42] LABS: ALKALINE PHOSPHATASE 100 U/L (30-120); ALT (SGPT) 4 U/L (10-68); BILIRUBIN - TOTAL 0.21 mg/dL (0.2-1.3); CALCIUM 8.2 mg/dL (8.5-10.1); CARBON DIOXIDE 22.7 mmol/L (21.0-32.0); CKMB 0.3 U/L (0.0-3.6); CREATINE KINASE 3 UL (21-215); CREATININE - SERUM 0.5 mg/dL (0.6-1.3); PRO BNP 233 pg/mL (0-125); TROPONIN-I 0.029 ng/mL (0.000-0.060); UREA NITROGEN 23 mg/dL (7-18); eGFR NON AFRICAN AMERICAN > 90 mL/min (90-120)
[2019-09-30 16:47] LABS: APTT 26.1 SECONDS (22.8-39.4)
[2019-09-30 16:49] LABS: GLUCOSE 255 mg/dL (74-106)
[2019-09-30 16:50] LABS: CALC OSMOLALITY 293 mosm/kg (275-300); CHLORIDE - SERUM 97 mmol/L (98-107); POTASSIUM - SERUM 4.3 mmol/L (3.5-5.1); PROTEIN - SERUM 0.9 g/dL (6.4-8.2); SODIUM 141 mmol/L (136-145)
[2019-09-30 17:07] LABS: INR 0.9 (0.85-1.17); PROTIME 12.1 SECONDS (11.6-15.0)
[2019-09-30 18:29] VITALS: BP 144/58
[2019-09-30 19:27] VITALS: BP 130/105
--- NOTE | 2019-09-30 19:27 | NUR ---
REPORT GIVE TO LISANDRA LEES
--- NOTE | 2019-09-30 19:28 | NUR ---
RECIEVED PATIENT FROM OFFGOING NURSE. PATIENT IS ON BYPAP WITH NO COMPLAINTS AT THIS TIME
[2019-09-30 20:46] VITALS: BP 126/62
--- NOTE | 2019-09-30 22:40 | NUR ---
RECIEVED TO ROOM VIA STRETCHER FROM ER ALERT AND ORIENTIATED, SOB AT REST DEMINISGHED BREATH SOUNDS BILATERALY, O2 IN USE RT HERE TO PLACE ON BIPAP, SEE ASSESSMENT, C/O PAIN TO BACK AND LEGS, MYKEL HERNÁNDEZ CALLED ORDER RECIEVED FOR NORCO GIVEN ORDERED, CALL LIGHT IN REACH
[2019-10-01 03:24] VITALS: BP 106/44; BMI 68.4
[2019-10-01 04:00] VITALS: BP 114/58
[2019-10-01 05:29] LABS: HEMATOCRIT 30.8 % (36.0-48.0); HEMOGLOBIN 8.7 g/dL (12-16); MCHC 28.2 g/dL (31.0-37.0); MCV 84.8 fL (80.0-100.0); MEAN PLATELET VOLUME 8.9 fL (7.4-10.4); PLATELET COUNT 196 10x3/uL (130-400); RBC 3.63 10x6/uL (4.00-5.40); RDW 15.5 % (11.5-14.5); WBC 12.2 10x3/uL (4.8-10.8)
[2019-10-01 05:54] LABS: LYMPHOCYTES 5 % (15-50); MONOCYTES 1 % (2-11); NEUTROPHILS 94 % (40-80); PLATELET ESTIMATE NORMAL; STOMATOCYTES 1+
[2019-10-01 05:55] LABS: ALBUMIN 2.8 g/dL (3.4-5.0); ANISOCYTOSIS OCC; BILIRUBIN - TOTAL 0.28 mg/dL (0.2-1.3); POTASSIUM - SERUM 4.3 mmol/L (3.5-5.1)
[2019-10-01 06:06] LABS: ANION GAP 7.2 mmol/L (8-16); CARBON DIOXIDE 38.1 mmol/L (21.0-32.0); CREATININE - SERUM 0.9 mg/dL (0.6-1.3)
[2019-10-01 09:32] VITALS: BP 137/57
--- NOTE | 2019-10-01 10:25 | NUR ---
RESTING IN BED, NO DISTRESS NOTED, SL IN PLACE, CONT TO MONITOR SUGARS, TELE IN PLACE,
[2019-10-01 12:33] VITALS: Ht 152.4 cm; Wt 158.8 kg
[2019-10-01 12:40] VITALS: BP 139/62
[2019-10-01 16:53] VITALS: BP 133/57
--- NOTE | 2019-10-01 18:39 | NUR ---
SUGARS ELEVATED, CONT TO MONITOR AND GIVE SLIDING SCALE ORDERED
--- NOTE | 2019-10-01 19:26 | NUR ---
SONY AWARE OF SUGAR OF 407, REPORTED LAB DRAW ALSO, CONT TO MONITOR, NNO
[2019-10-01 20:00] VITALS: BP 121/61
--- NOTE | 2019-10-01 20:00 | NUR ---
EYES CLOSED RESTING IN BED AROUSED EASILY O2 IN CONTINOUS USE, C/O GENERALIZED NOT FEELING WELL, STATES IM SICK, SEE SHIFT ASSESSMENT, CALL NUSRAT SNOW
[2019-10-02 04:00] VITALS: BP 131/75
[2019-10-02 04:23] LABS: BASOPHILS 0 % (0-2); EOSINOPHILS 0 % (0-7); HEMATOCRIT 29.7 % (36.0-48.0); HEMOGLOBIN 8.6 g/dL (12-16); IMMATURE GRANULOCYTES 0.4 % (0-5); LYMPHOCYTES 5.7 % (15-50); MCH 24.4 pg (26.0-34.0); MCV 84.1 fL (80.0-100.0); MONOCYTES 4.5 % (2-11); NEUTROPHILS 89.4 % (40-80); RBC 3.53 10x6/uL (4.00-5.40); RDW 15.2 % (11.5-14.5)
[2019-10-02 04:24] LABS: PLATELET COUNT 239 10x3/uL (130-400); WBC 8.9 10x3/uL (4.8-10.8)
[2019-10-02 04:54] LABS: CALCIUM 9.3 mg/dL (8.5-10.1); CREATININE - SERUM 0.9 mg/dL (0.6-1.3)
[2019-10-02 04:56] LABS: ANION GAP 2.9 mmol/L (8-16); POTASSIUM - SERUM 3.5 mmol/L (3.5-5.1)
[2019-10-02 04:58] LABS: CARBON DIOXIDE 43.6 mmol/L (21.0-32.0)
[2019-10-02 08:17] VITALS: BP 159/67
--- NOTE | 2019-10-02 09:00 | NUR ---
ALERT AND ORIENTED WITH BIPAP ON AT THIS TIME. RESP EVEN AND UNLABORED WOTH O2 AT 5L N/C WIEN BIPAP NOT IN USE. PURWICK INTAC WELL TELEMETRY. ABDOMEN OBESE WITH PANNUS WITH ERRYTHEMA NOTED TO BREASTS WITH PRESCRIBED POWDER APPLIED. DENIES ANY PAIN OR DISCOMFORT AT THIS TIME WITH HRRR ADN BOWEL SOUNDS NOTED X4. ENCOURAGED TO USE CALL LIGHT FOR ASSSIT.
[2019-10-02 13:52] VITALS: BP 116/47
[2019-10-02 20:00] VITALS: BP 112/63
[2019-10-03 04:00] VITALS: BP 117/60
[2019-10-03 06:23] LABS: BASOPHILS 0 % (0-2); EOSINOPHILS 0 % (0-7); HEMATOCRIT 32.6 % (36.0-48.0); IMMATURE GRANULOCYTES 0.4 % (0-5); LYMPHOCYTES 5.9 % (15-50); MCH 23.7 pg (26.0-34.0); MCHC 27.6 g/dL (31.0-37.0); MEAN PLATELET VOLUME 8.9 fL (7.4-10.4); MONOCYTES 4.7 % (2-11); PLATELET COUNT 220 10x3/uL (130-400); RBC 3.79 10x6/uL (4.00-5.40); RDW 15.3 % (11.5-14.5); WBC 7.9 10x3/uL (4.8-10.8)
[2019-10-03 06:42] LABS: CALCIUM 9.1 mg/dL (8.5-10.1); POTASSIUM - SERUM 3.5 mmol/L (3.5-5.1)
[2019-10-03 07:11] LABS: ANION GAP 4.6 mmol/L (8-16); CREATININE - SERUM 1.2 mg/dL (0.6-1.3)
[2019-10-03 07:12] LABS: CARBON DIOXIDE 44.9 mmol/L (21.0-32.0)
[2019-10-03 08:47] VITALS: BP 108/65
--- NOTE | 2019-10-03 09:00 | NUR ---
ALERT AND ORIENTED TO SELF AND FAMILIAR FACES. PATIENT WEARS BIPAP WHEN NOT EATING WITH LETHARGY NOTED. DR. HEREDIA NOTIFIED FOR CO2 LEVEL. PURWICK INTACT ALONG WITH TELEMETRY. O2 5L N/C WHEN BIPAP NOT ON. LUNGS DIMINISHED X4 WITH ABODMEN OBESE WITH PANNUS. ENCOURAGED TO USE CALL LIGHT FOR ASSSIT.
--- NOTE | 2019-10-03 12:08 | MORECARE ---
CASE MANAGEMENT DISCHARGE SUMMARY PATIENT: DOUGLAS HILLS UNIT: [id number] ADM DATE: 09/30/19 AGE: 54 : 63 SEX: F ROOM/BED: D.2224 AUTHOR: AMELIA MCGOVERN PHYSICIAN: REFERRING PHYSICIAN: LIDIA HECK MD DATE OF SERVICE: 10/03/19 Discharge Plan Patient Name: DOUGLAS HILLS Facility: [facility]:[place] : 1965 Planned Disposition: Nursing Facility [facility] Cert Anticipated Discharge Date: Discharge Date: Expected LOS: Initial Reviewer: [email or web address] Initial Review Date: 10/03/2019 Generated: 10/03/19 1:08 pm DCPIA - Discharge Planning Initial Assessment Updated by [email or web address]: Thelma Yusuf on 10/03/19 12:04 pm * Is the patient Alert and Oriented? Yes * How many steps to enter\exit or inside your home? 0/0 * PCP Dr. Heck - [facility] * Pharmacy [facility] * Preadmission Environment [facility] Director Retirement * Facility Name [facility] * ADLs Partial Dependent * Partial ADLs (Assistance needed) Ambulation Bathing Dressing Medication Management Toileting Transfers * Equipment BIPAP Oxygen * Other Equipment All equipment supplied by [facility] * List name and contact numbers for known caregivers / representatives who currently or will assist patient after discharge: Delfina Li - DTR - [phone] * Verbal permission to speak to the caregivers and representatives has been obtained from the patient. Yes * Community resources currently utilized None * Additional services required to return to the preadmission environment? No * Can the patient safely return to the preadmission environment? Yes * Has this patient been hospitalized within the prior 30 days at any hospital? Yes External Providers External Provider: [facility] Next Contact Date: Service Request Date: Service Type: Resolution: Reviewer: Comments: Patient Name: DOUGLAS HILLS Page 46723 at 1208 All edits/amendments must be made on the electronic document DICTATION DATE: 10/03/19 1208 K9 HANDLER: CLEMENT 10/03/19 1208 RPT#: [id number] DC DATE: STATUS: ADM IN [facility] [address] [place] [address] END OF REPORT
--- NOTE | 2019-10-03 12:31 | MORECARE ---
CASE MANAGEMENT DISCHARGE SUMMARY PATIENT: DOUGLAS HILLS UNIT: [id number] ADM DATE: 09/30/19 AGE: 54 : 63 SEX: F ROOM/BED: D.2224 AUTHOR: FROILAN,DOC PHYSICIAN: REFERRING PHYSICIAN: LIDIA HECK MD DATE OF SERVICE: 10/03/19 Discharge Plan Patient Name: DOUGLAS HILLS Facility: [facility]:[place] : 1965 Planned Disposition: Nursing Facility [facility] Cert Anticipated Discharge Date: Discharge Date: Expected LOS: Initial Reviewer: [email or web address] Initial Review Date: 10/03/2019 Generated: 10/03/19 1:31 pm Comments DCP- Discharge Planning Updated by [id number]: Thelma Yusuf on 10/03/19 11:[address] Patient Name: DOUGLAS HILLS Admission Status: ER Accout number: [id number] Admission Date: 09-30-2019 : 1965 Admission Diagnosis: Attending: LIDIA HECK Current LOS: 3 Anticipated DC Date: Planned Disposition: Nursing Facility [facility] Cert Primary Insurance: [facility] MEDICARE SOLUTIONS Discharge Planning Comments: CM met with patient to complete initial dc planning assessment. CM educated patient on the CM role and verbal consent given by patient to complete assessment. Patient lives at [facility] in a mcc bed and plans to return there on discharge, MATT for [facility] signed. I faxed updated clinical to them. She states that they will pick her up on discharge. CM will continue to follow and assist with discharge planning/needs. Television Camera Operator: Thelma Yusuf DCPIA - Discharge Planning Initial Assessment Updated by [id number]: Thelma Yusuf on 10/03/19 12:04 pm * Is the patient Alert and Oriented? Yes * How many steps to enter\exit or inside your home? 0/0 * PCP Dr. Heck - [facility] * Pharmacy [facility] * Preadmission Environment Skilled Nursing Fci * Facility Name [facility] * ADLs Partial Dependent * Partial ADLs (Assistance needed) Ambulation Bathing Dressing Medication Management Toileting Transfers * Equipment BIPAP Oxygen * Other Equipment All equipment supplied by [facility] * List name and contact numbers for known caregivers / representatives who currently or will assist patient after discharge: Delfina Li - DTR - [phone] * Verbal permission to speak to the caregivers and representatives has been obtained from the patient. Yes * Community resources currently utilized None * Additional services required to return to the preadmission environment? No * Can the patient safely return to the preadmission environment? Yes * Has this patient been hospitalized within the prior 30 days at any hospital? Yes Coverage Notice Reviewer: [id number] Bayron Yusuf Notice Issued Date-Time: 10/03/2019 11:50 Notice Type: Patient Choice Letter Notice Delivered To: Patient Relationship to Patient: Self Peg Driver Name: Delivery Method: HAND - Hand Delivered Adrianne Days: Prior Verbal Notification: Recipient Understood Notice: Yes Recipient Signature: Yes Med Rec Note Co-signed by Attending: Coverage Notice Comment: [facility] Evans DP export: 10/03/19 11:08 a Patient Name: DOUGLAS HILLS Page [phone] at 1231 All edits/amendments must be made on the electronic document DICTATION DATE: 10/03/19 1231 PROSTHETIC ASSISTANT: CLEMENT 10/03/19 1231 RPT#: [id number] DC DATE: STATUS: ADM IN [facility] [address] [place] [address] END OF REPORT
[2019-10-03 12:38] VITALS: BP 92/72
[2019-10-03 17:16] VITALS: BP 95/52
[2019-10-03 20:00] VITALS: BP 108/48
[2019-10-04 04:00] VITALS: BP 136/65
[2019-10-04 05:57] LABS: BASOPHILS 0 % (0-2); EOSINOPHILS 0.6 % (0-7); HEMATOCRIT 33.2 % (36.0-48.0); HEMOGLOBIN 9.4 g/dL (12-16); IMMATURE GRANULOCYTES 0.2 % (0-5); LYMPHOCYTES 17.5 % (15-50); MCH 24.2 pg (26.0-34.0); MCHC 28.3 g/dL (31.0-37.0); MCV 85.3 fL (80.0-100.0); MEAN PLATELET VOLUME 8.9 fL (7.4-10.4); MONOCYTES 13.6 % (2-11); NEUTROPHILS 68.1 % (40-80); PLATELET COUNT 247 10x3/uL (130-400); RBC 3.89 10x6/uL (4.00-5.40); RDW 15.2 % (11.5-14.5)
[2019-10-04 06:08] LABS: WBC 9.9 10x3/uL (4.8-10.8)
[2019-10-04 06:12] LABS: CALCIUM 9.3 mg/dL (8.5-10.1)
[2019-10-04 06:55] LABS: ANION GAP 0.6 mmol/L (8-16)
[2019-10-04 07:00] LABS: CARBON DIOXIDE 52.3 mmol/L (21.0-32.0); POTASSIUM - SERUM 2.9 mmol/L (3.5-5.1)
[2019-10-04 08:08] VITALS: BP 130/62
--- NOTE | 2019-10-04 09:00 | NUR ---
ASSESSMENT PER FLOW SHEET. PATIENT IS WITHOUT DISTRESS.DENIES NEEDS.CALL LIGHT IN REACH
[2019-10-04 12:43] VITALS: BP 115/60
[2019-10-04 16:39] VITALS: BP 122/56
--- NOTE | 2019-10-04 17:24 | NUR ---
REMAINS WITHOUT DISTRESS. PT IS WITHOUT CHANGE. HAD VERY LARGE FORMED, BROWN STOOL TODAY.CONT PLAN OF CARE
[2019-10-04 19:46] VITALS: BP 109/54
--- NOTE | 2019-10-04 22:32 | NUR ---
PT INCONTINENT OF URINE. PURWICK CAME LOOSE. CLEANED UP PT AND CHANGED BEDDING. APPLIED NEW PURWICK. SCHEDULED MEDS GIVEN. INSULIN GIVEN FOR 186 BLOOD SUGAR. PT ATE SNACK OF JULIUS CRACKERS AND MILK. HELPED PT PUT BIPAP AND CHANGED LEADS ON TELEMETRY. NO OTHER NEEDS. WILL CONTINUE TO MONITOR.
[2019-10-05 01:20] VITALS: BP 112/59
[2019-10-05 05:12] VITALS: BP 106/65
[2019-10-05 08:06] VITALS: BP 112/63
--- NOTE | 2019-10-05 09:00 | NUR ---
ASSESSMENT PER FLOW SHEET. PATIENT IS WITHOUT DISTRESS.CALL LIGHT IN REACH
[2019-10-05 12:34] VITALS: BP 125/54
--- NOTE | 2019-10-05 13:48 | NUR ---
TOOK NAP AND NOW AWAKE. SHE IS WITHOUT DISTRESS
[2019-10-05 16:09] VITALS: BP 123/54
[2019-10-05 20:00] VITALS: BP 129/60
--- NOTE | 2019-10-05 22:00 | NUR ---
PT INCONTINENT OF SOFT BM. PT RECEIVED BATH, SHAMPOO AND LINEN CHANGE. CHANGED OUT PURWICK. NO OTHER NEEDS. WILL REASSESS AND CONTINUE TO MONITOR.
[2019-10-06] VITALS: BP 106/59
[2019-10-06 04:00] VITALS: BP 134/65
[2019-10-06 05:23] LABS: BASOPHILS 0 % (0-2); EOSINOPHILS 3.6 % (0-7); HEMATOCRIT 34.7 % (36.0-48.0); HEMOGLOBIN 10.1 g/dL (12-16); IMMATURE GRANULOCYTES 0.2 % (0-5); LYMPHOCYTES 14.2 % (15-50); MCH 24.2 pg (26.0-34.0); MCHC 29.1 g/dL (31.0-37.0); MEAN PLATELET VOLUME 8.7 fL (7.4-10.4); MONOCYTES 4.5 % (2-11); NEUTROPHILS 77.5 % (40-80); PLATELET COUNT 214 10x3/uL (130-400); RBC 4.18 10x6/uL (4.00-5.40); RDW 15.4 % (11.5-14.5); WBC 13.2 10x3/uL (4.8-10.8)
[2019-10-06 05:29] LABS: ANION GAP 7.3 mmol/L (8-16); CALCIUM 9.3 mg/dL (8.5-10.1); CREATININE - SERUM 1.2 mg/dL (0.6-1.3); POTASSIUM - SERUM 3.9 mmol/L (3.5-5.1)
[2019-10-06 05:32] LABS: CARBON DIOXIDE 40.6 mmol/L (21.0-32.0)
[2019-10-06 09:04] VITALS: BP 96/49
[2019-10-06 12:19] VITALS: BP 104/49
[2019-10-06 17:28] VITALS: BP 106/55
[2019-10-06 21:48] VITALS: BP 116/57
[2019-10-07 01:07] VITALS: BP 86/50
[2019-10-07 05:10] LABS: BASOPHILS 0.1 % (0-2); EOSINOPHILS 3.8 % (0-7); HEMATOCRIT 34.6 % (36.0-48.0); HEMOGLOBIN 9.9 g/dL (12-16); IMMATURE GRANULOCYTES 0.3 % (0-5); LYMPHOCYTES 13.1 % (15-50); MCH 24.5 pg (26.0-34.0); MCHC 28.6 g/dL (31.0-37.0); MEAN PLATELET VOLUME 8.8 fL (7.4-10.4); MONOCYTES 5.5 % (2-11); NEUTROPHILS 77.2 % (40-80); PLATELET COUNT 207 10x3/uL (130-400); RBC 4.04 10x6/uL (4.00-5.40); RDW 15.2 % (11.5-14.5); WBC 11.7 10x3/uL (4.8-10.8)
[2019-10-07 05:17] LABS: ANION GAP 5.9 mmol/L (8-16); CALCIUM 9.1 mg/dL (8.5-10.1); CARBON DIOXIDE 39.8 mmol/L (21.0-32.0); CREATININE - SERUM 1.3 mg/dL (0.6-1.3); POTASSIUM - SERUM 3.7 mmol/L (3.5-5.1)
[2019-10-07 05:19] LABS: MCV 85.6 fL (80.0-100.0)
[2019-10-07 06:00] VITALS: BP 110/53
--- NOTE | 2019-10-07 08:00 | NUR ---
PATIENT IN BED WITH EYES CLOSED RESTING QUIETLY. IV INTACT. CALL LIGHT WITHIN REACH.
[2019-10-07 09:12] VITALS: BP 113/58
[2019-10-07 13:06] VITALS: BP 109/57
[2019-10-07 17:03] VITALS: BP 125/59
--- NOTE | 2019-10-07 18:20 | NUR ---
PATIENT IN BED WITH IV INTACT. DC TOMORROW PER [facility] HERN[facility]NDEZ. NO COMPLAINTS AT THIS TIME. CALL LIGHT WITHIN REACH.
--- NOTE | 2019-10-07 19:05 | NUR ---
PATIENT ALERT AND ORIENTED. TALKING ON CELL PHONE AT THIS TIME. PATIENT HAS GENERALIZED EDEMA. WEARING 5L NASAL CANNULA AT THIS TIME. RIGHT SHOULDER IV THAT IS SALINE LOCKED AND ADHERED TO SKIN. DENIES PAIN AT THIS TIME. CALL LIGHT IN REACH. CPOC.
[2019-10-07 20:00] VITALS: BP 94/59
[2019-10-08] VITALS: BP 120/58
--- NOTE | 2019-10-08 01:54 | NUR ---
RESTING WITH NO SIGNS OR SYMPTOMS OF DISTRESS AT THIS TIME. CPOC.
[2019-10-08 04:00] VITALS: BP 130/61
--- NOTE | 2019-10-08 04:07 | NUR ---
I have reviewed this patient and I concur with the Shift Assessment completed by the Licensed Practical Nurse today this shift.
--- NOTE | 2019-10-08 08:00 | NUR ---
patient in bed with iv intact. no complaints or signs of distress. iv intact. call light within reach.
[2019-10-08 09:06] VITALS: BP 122/70
--- NOTE | 2019-10-08 09:43 | MORECARE ---
CASE MANAGEMENT DISCHARGE SUMMARY PATIENT: DOUGLAS HILLS UNIT: [id number] ADM DATE: 09/30/19 AGE: 54 : 63 SEX: F ROOM/BED: D.2224 AUTHOR: FROILAN,DOC PHYSICIAN: REFERRING PHYSICIAN: LIDIA HECK MD DATE OF SERVICE: 10/08/19 Discharge Plan Patient Name: DOUGLAS HILLS Facility: [facility]:[place] : 1965 Planned Disposition: Nursing Facility [facility] Cert Anticipated Discharge Date: Discharge Date: Expected LOS: Initial Reviewer: [email or web address] Initial Review Date: 10/03/2019 Generated: 10/08/19 10:43 am Comments DCP- Discharge Planning Updated by [email or web address]: Dori Young on 10/08/19 8:[address] PATIENT WILL BE DISCHARGED TO [facility] TO A CUSTODIAL BED. THEY WILL TRANSPORT HER AND PICK HER UP AT 10:00. DCP- Discharge Planning Updated by [id number]: Thelma Yusuf on 10/03/19 11:[address] Patient Name: DOUGLAS HILLS Admission Status: ER Accout number: [id number] Admission Date: 09-30-2019 : 1965 Admission Diagnosis: Attending: LIDIA HECK Current LOS: 3 Anticipated DC Date: Planned Disposition: Nursing Facility [facility] Cert Primary Insurance: [facility] MEDICARE SOLUTIONS Discharge Planning Comments: CM met with patient to complete initial dc planning assessment. CM educated patient on the CM role and verbal consent given by patient to complete assessment. 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 I faxed updated clinical to them. She states that they will pick her up on discharge. CM will continue to follow and assist with discharge planning/needs. Jig Borer: Thelma Yusuf DCPIA - Discharge Planning Initial Assessment Updated by [email or web address]: Thelma Yusuf on 10/03/19 12:04 pm * Is the patient Alert and Oriented? Yes * How many steps to enter\exit or inside your home? 0/0 * PCP Dr. Heck - [facility] * Pharmacy [facility] * Preadmission Environment Rn Psychiatric Long-Term * Facility Name [facility] * ADLs Partial Dependent * Partial ADLs (Assistance needed) Ambulation Bathing Dressing Medication Management Toileting Transfers * Equipment BIPAP Oxygen * Other Equipment All equipment supplied by [facility] * List name and contact numbers for known caregivers / representatives who currently or will assist patient after discharge: Delfina Li - DTR - [phone] * Verbal permission to speak to the caregivers and representatives has been obtained from the patient. Yes * Community resources currently utilized None * Additional services required to return to the preadmission environment? No * Can the patient safely return to the preadmission environment? Yes * Has this patient been hospitalized within the prior 30 days at any hospital? Yes Coverage Notice Reviewer: [email or web address] Bayron Yusuf Notice Issued Date-Time: 10/03/2019 11:50 Notice Type: Patient Choice Letter Notice Delivered To: Patient Relationship to Patient: Self Valve Setter Name: Delivery Method: HAND - Hand Delivered Adrianne Days: Prior Verbal Notification: Recipient Understood Notice: Yes Recipient Signature: Yes Med Rec Note Co-signed by Attending: Coverage Notice Comment: [facility] Reviewer: [id number] Bayron Yusuf Notice Issued Date-Time: 10/07/2019 10:14 Notice Type: IM Discharge Notice Notice Delivered To: Patient Relationship to Patient: Self Valve Setter Name: Delivery Method: HAND - Hand Delivered Adrianne Days: Prior Verbal Notification: Recipient Understood Notice: Yes Recipient Signature: Yes Med Rec Note Co-signed by Attending: Coverage Notice Comment: IMM explained, signed, given, copy placed in MR Last DP export: 10/03/19 11:31 a Patient Name: DOUGLAS HILLS Page [id number] at 0943 All edits/amendments must be made on the electronic document DICTATION DATE: 10/08/19942 HEALTH UNIT COORDINATOR: CLEMENT 10/08/19942 RPT#: [id number] DC DATE: STATUS: ADM IN [facility] [address] [place] [address] END OF REPORT
--- NOTE | 2019-10-08 10:33 | NUR ---
patient recieved dc instructions. verbalized understanding. no questions at this time. iv removed with cath tip intact. assisted patient to and escorted down to nm transportation vehicle by simulation technician with personal belongings.
--- NOTE | 2019-10-08 10:35 | NUR ---
REPORT CALLED TO NURSE AT [facility] AT THIS TIME.
--- NOTE | 2019-10-10 09:33 | MORECARE ---
CASE MANAGEMENT DISCHARGE SUMMARY PATIENT: DOUGLAS HILLS UNIT: [id number] ADM DATE: 09/30/19 AGE: 54 : 63 SEX: F ROOM/BED: D.2224 AUTHOR: FROILAN,DOC PHYSICIAN: REFERRING PHYSICIAN: LIDIA HECK MD DATE OF SERVICE: 10/10/19 Discharge Plan Patient Name: DOUGLAS HILLS Facility: [facility]:[place] : 1965 Planned Disposition: Nursing Facility [facility] Cert Anticipated Discharge Date: Discharge Date: 10/08/2019 Expected LOS: 0 Initial Reviewer: [email or web address] Initial Review Date: 10/03/2019 Generated: 10/10/19 10:32 am Comments DCP- Discharge Planning Updated by [email or web address]: Dori Young on 10/08/19 8:[address] PATIENT WILL BE DISCHARGED TO [facility] TO A PENITENTIARY BED. THEY WILL TRANSPORT HER AND PICK HER UP AT 10:00. DCP- Discharge Planning Updated by [id number]: Thelma Yusuf on 10/03/19 11:[address] Patient Name: DOUGLAS HILLS Admission Status: ER Accout number: [id number] Admission Date: 09-30-2019 : 1965 Admission Diagnosis: Attending: LIDIA HECK Current LOS: 3 Anticipated DC Date: Planned Disposition: Nursing Facility [facility] Cert Primary Insurance: [facility] MEDICARE SOLUTIONS Discharge Planning Comments: CM met with patient to complete initial dc planning assessment. CM educated patient on the CM role and verbal consent given by patient to complete assessment. 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 I faxed updated clinical to them. She states that they will pick her up on discharge. CM will continue to follow and assist with discharge planning/needs. Bulb Planter: Thelma Yusuf DCPIA - Discharge Planning Initial Assessment Updated by [id number]: Thelma Yusuf on 10/03/19 12:04 pm * Is the patient Alert and Oriented? Yes * How many steps to enter\exit or inside your home? 0/0 * PCP Dr. Heck - [facility] * Pharmacy [facility] * Preadmission Environment Custodial Correction * Facility Name [facility] * ADLs Partial Dependent * Partial ADLs (Assistance needed) Ambulation Bathing Dressing Medication Management Toileting Transfers * Equipment BIPAP Oxygen * Other Equipment All equipment supplied by [facility] * List name and contact numbers for known caregivers / representatives who currently or will assist patient after discharge: Delfina Li - DTR - [phone] * Verbal permission to speak to the caregivers and representatives has been obtained from the patient. Yes * Community resources currently utilized None * Additional services required to return to the preadmission environment? No * Can the patient safely return to the preadmission environment? Yes * Has this patient been hospitalized within the prior 30 days at any hospital? Yes Coverage Notice Reviewer: [id number] Bayron Yusuf Notice Issued Date-Time: 10/03/2019 11:50 Notice Type: Patient Choice Letter Notice Delivered To: Patient Relationship to Patient: Self Manager Cleaning Name: Delivery Method: HAND - Hand Delivered Adrianne Days: Prior Verbal Notification: Recipient Understood Notice: Yes Recipient Signature: Yes Med Rec Note Co-signed by Attending: Coverage Notice Comment: [facility] Reviewer: [id number] Bayron Yusuf Notice Issued Date-Time: 10/07/2019 10:14 Notice Type: IM Discharge Notice Notice Delivered To: Patient Relationship to Patient: Self Manager Cleaning Name: Delivery Method: HAND - Hand Delivered Adrianne Days: Prior Verbal Notification: Recipient Understood Notice: Yes Recipient Signature: Yes Med Rec Note Co-signed by Attending: Coverage Notice Comment: IMM explained, signed, given, copy placed in MR Last DP export: 10/08/19 8:43 a Patient Name: DOUGLAS HILLS Page [phone] at 0933 All edits/amendments must be made on the electronic document DICTATION DATE: 10/10/19932 BOX STAPLER: CLEMENT 10/10/19932 RPT#: [id number] DC DATE:10/08/19 STATUS: DIS IN [facility] [address] [place] [address] END OF REPORT
== END 2019-10-08 11:37 | DRG 291 ==
LOC: D.ER 15:29 → D.MS 17:33
PROVIDERS: Emergency Medicine; Family Medicine; ADMIT Legal Medicine; ATTEND Legal Medicine
DX: I11.0 Hypertensive heart disease with heart failure (principal); J96.22 Acute and chronic respiratory failure with hypercapnia; G93.41 Metabolic encephalopathy; J96.21 Acute and chronic respiratory failure with hypoxia; Z68.44 Body mass index [BMI] 60.0-69.9, adult; J44.1 Chronic obstructive pulmonary disease with (acute) exacerbation; E66.2 Morbid (severe) obesity with alveolar hypoventilation; N17.9 Acute kidney failure, unspecified; I50.33 Acute on chronic diastolic (congestive) heart failure; E11.9 Type 2 diabetes mellitus without complications; D64.9 Anemia, unspecified; D72.829 Elevated white blood cell count, unspecified

== ENCOUNTER 2019-10-11 15:45 | Emergency (ER) | payer MEDICARE, MEDICAID ==
[~2019-10-11] VITALS: Ht 152.4 cm; Wt 159.1 kg
[2019-10-11 15:47] VITALS: Ht 152.4 cm; Wt 159.1 kg
[2019-10-11 16:20] LABS: BASOPHILS 0.2 % (0-2); EOSINOPHILS 1.8 % (0-7); HEMATOCRIT 34.6 % (36.0-48.0); HEMOGLOBIN 9.2 g/dL (12-16); IMMATURE GRANULOCYTES 1.3 % (0-5); LYMPHOCYTES 9.8 % (15-50); MCH 23.9 pg (26.0-34.0); MCHC 26.6 g/dL (31.0-37.0); MCV 89.9 fL (80.0-100.0); MEAN PLATELET VOLUME 8.4 fL (7.4-10.4); NEUTROPHILS 74.9 % (40-80); RBC 3.85 10x6/uL (4.00-5.40); RDW 15.6 % (11.5-14.5); WBC 12.8 10x3/uL (4.8-10.8)
[2019-10-11 16:21] LABS: PLATELET COUNT 302 10x3/uL (130-400)
[2019-10-11 16:33] LABS: CALC OSMOLALITY 290 mosm/kg (275-300); CALCIUM 8.7 mg/dL (8.5-10.1); CHLORIDE - SERUM 98 mmol/L (98-107); CREATININE - SERUM 0.8 mg/dL (0.6-1.3); GLUCOSE 196 mg/dL (74-106); POTASSIUM - SERUM 3.7 mmol/L (3.5-5.1); SODIUM 142 mmol/L (136-145); UREA NITROGEN 20 mg/dL (7-18); eGFR NON AFRICAN AMERICAN 79 mL/min (90-120)
[2019-10-11 16:34] LABS: INR 0.95 (0.85-1.17); PROTIME 12.6 SECONDS (11.6-15.0)
[2019-10-11 16:35] LABS: APTT 27.2 SECONDS (22.8-39.4); CARBON DIOXIDE 46.2 mmol/L (21.0-32.0)
[2019-10-11 16:48] LABS: ALKALINE PHOSPHATASE 103 U/L (30-120); ALT (SGPT) 18 U/L (10-68); BILIRUBIN - TOTAL 0.17 mg/dL (0.2-1.3); CKMB 0.8 U/L (0.0-3.6); CREATINE KINASE 35 UL (21-215); MAGNESIUM - SERUM 1.9 mg/dL (1.8-2.4); PROTEIN - SERUM 6.3 g/dL (6.4-8.2); THYROID STIMULATING HORMONE 1.25 uIU/mL (0.36-3.74)
[2019-10-11 16:49] LABS: TROPONIN-I < 0.017 ng/mL (0.000-0.060)
[2019-10-11 17:53] LABS: BILIRUBIN NEGATIVE (NEGATIVE); GLUCOSE NEGATIVE (NEGATIVE); KETONE NEGATIVE (NEGATIVE); NITRITE NEGATIVE (NEGATIVE); SPECIFIC GRAVITY 1.005 (1.005-1.020); UROBILINOGEN NORMAL (NORMAL)
[2019-10-11 17:54] LABS: BACTERIA FEW /hpf (NEGATIVE); RED CELLS - URINE RARE /hpf (0-5); WHITE CELLS - URINE 0-5 /hpf (NEGATIVE)
[2019-10-11] MEDS ORDERED: MACROBID100 MG PO (18:03)
[2019-10-11 18:13] LABS: UDS - AMPHET NEGATIVE QUAL (NEGATIVE); UDS - BARB NEGATIVE QUAL (NEGATIVE); UDS - BENZO NEGATIVE QUAL (NEGATIVE); UDS - COCAINE NEGATIVE QUAL (NEGATIVE); UDS - OPIATE POSITIVE QUAL (NEGATIVE); UDS - PCP NEGATIVE QUAL (NEGATIVE); UDS - THC POSITIVE QUAL (NEGATIVE)
[2019-10-11 21:45] VITALS: BP 136/105
== END 2019-10-11 21:45 ==
LOC: D.ER 15:45
PROVIDERS: Emergency Medicine
DX: N39.0 Urinary tract infection, site not specified (principal); J44.9 Chronic obstructive pulmonary disease, unspecified; E11.9 Type 2 diabetes mellitus without complications; K21.9 Gastro-esophageal reflux disease without esophagitis; Z79.84 Long term (current) use of oral hypoglycemic drugs; Z79.4 Long term (current) use of insulin; R44.3 Hallucinations, unspecified

== ENCOUNTER 2019-10-20 13:10 | Inpatient (IN) | payer MEDICARE, MEDICAID ==
[~2019-10-20] VITALS: Ht 152.4 cm; Wt 158.3 kg
[~2019-10-20 13:10] MED LIST changes: +MACROBID100 MG PO
[2019-10-20 13:30] VITALS: BP 116/53
[2019-10-20 13:39] LABS: APTT 27.5 SECONDS (22.8-39.4); INR 0.98 (0.85-1.17)
[2019-10-20 13:47] LABS: BASOPHILS 0.2 % (0-2); EOSINOPHILS 0.2 % (0-7); HEMATOCRIT 37.4 % (36.0-48.0); HEMOGLOBIN 9.9 g/dL (12-16); IMMATURE GRANULOCYTES 1.7 % (0-5); LYMPHOCYTES 5.3 % (15-50); MCH 23.7 pg (26.0-34.0); MCHC 26.5 g/dL (31.0-37.0); MCV 89.5 fL (80.0-100.0); MEAN PLATELET VOLUME 9.4 fL (7.4-10.4); MONOCYTES 6.1 % (2-11); NEUTROPHILS 86.5 % (40-80); RBC 4.18 10x6/uL (4.00-5.40); RDW 16.1 % (11.5-14.5); WBC 18.1 10x3/uL (4.8-10.8)
[2019-10-20 13:50] LABS: PLATELET COUNT 185 10x3/uL (130-400)
[2019-10-20 13:56] LABS: ALBUMIN 3.1 g/dL (3.4-5.0); ALKALINE PHOSPHATASE 105 U/L (30-120); ALT (SGPT) 20 U/L (10-68); BILIRUBIN - TOTAL 0.35 mg/dL (0.2-1.3); CALC OSMOLALITY 286 mosm/kg (275-300); CALCIUM 9.1 mg/dL (8.5-10.1); CHLORIDE - SERUM 98 mmol/L (98-107); CKMB 1.5 U/L (0.0-3.6); CREATINE KINASE 22 UL (21-215); CREATININE - SERUM 0.9 mg/dL (0.6-1.3); GLUCOSE 234 mg/dL (74-106); POTASSIUM - SERUM 3.9 mmol/L (3.5-5.1); PRO BNP 2623 pg/mL (0-125); PROTEIN - SERUM 7.3 g/dL (6.4-8.2); SODIUM 138 mmol/L (136-145); TROPONIN-I < 0.017 ng/mL (0.000-0.060); UREA NITROGEN 21 mg/dL (7-18); eGFR NON AFRICAN AMERICAN 69 mL/min (90-120)
[2019-10-20 14:00] VITALS: BP 114/61
[2019-10-20 14:00] LABS: CARBON DIOXIDE 41.3 mmol/L (21.0-32.0)
[2019-10-20 14:55] VITALS: BP 133/44; BMI 68.3
--- NOTE | 2019-10-20 16:35 | NUR ---
PT WOKE UP WHEN I TOOK BLOOD SUGAR, SHE IS ABLE TO RESPOND TO ME. WENT OVER IMPORTANCE OF HER WEARING BIPAP AT NIGHT, PT BODY SHAKING, GAVE PT ANOTHER BLANKET, CONTINUE WITH PLAN OF CARE
[2019-10-20 18:23] LABS: % SATURATION 4 % (15-55); IRON 20 ug/dl (35-150); TOTAL IRON BIND CAPACITY 450 ug/dl (260-445); UNSAT IRON BIND CAPACITY 430 ug/dl (150-375)
[2019-10-20 18:48] LABS: MAGNESIUM - SERUM 1.9 mg/dL (1.8-2.4)
[2019-10-20 20:00] VITALS: BP 113/58
--- NOTE | 2019-10-20 20:00 | NUR ---
OFFGOING STAFF REPORTS PT HAS BEEN LETHARGIC AND SLEEPING. BIPAP IN USE. UNABLE TO ANSWER SIMPLE QUESTIONS. CONFUSED. BIPAP @ 50 % O2. V/S STABLE. OPENS EYES TO TACTILE STIMULI. SALINE LOCK NOTED TO RT HAND AND LT CHEST. INCONT OF URINE. MORBIDLY OBESE. HOB ELEVATED 30 DEGREES. SR ELEVATED X2. CL IN REACH.
--- NOTE | 2019-10-20 21:59 | NUR ---
LETHARGIC AND DROWSY. AWAKENS PER TACTILE STIMULI BUT FALLS ASLEEP SHORTLY. UNABLE TO FOLLOW SIMPLE COMMANDS. BIPAP IN USE. UNABLE TO TAKE PO MEDS AT THIS TIME.
--- NOTE | 2019-10-20 23:34 | NUR ---
NOTIFIED LYNN BATTERY CONTAINER INSPECTOR FOR DR NESS ABOUT PT DECREASED LOC AND NEED FOR ACCURATE I/O SINCE ON DIURETICS. NEW ORDER NOTED FOR HESS CATH PLACEMENT.
--- NOTE | 2019-10-20 23:50 | NUR ---
PT CARE TAKEN OVER BY LISANDRA MCCRARY AT THIS TIME AFTER REPORT GIVEN.
[2019-10-21] VITALS: BP 100/61
--- NOTE | 2019-10-21 00:12 | NUR ---
16 FR HESS CATH INSERTED PER STERILE TECHNIQUE WITH IMMED RETURN OF DARK CLEAR YELLOW URINE. PT KAYLIN WELL. MORE RESPONSIVE AND TALKING.
[2019-10-21 01:27] LABS: BILIRUBIN NEGATIVE (NEGATIVE); GLUCOSE NEGATIVE (NEGATIVE); KETONE NEGATIVE (NEGATIVE); NITRITE NEGATIVE (NEGATIVE); SPECIFIC GRAVITY 1.015 (1.005-1.020); UROBILINOGEN NORMAL (NORMAL)
[2019-10-21 04:00] VITALS: BP 99/44
[2019-10-21 05:40] LABS: ALBUMIN 2.8 g/dL (3.4-5.0); ALKALINE PHOSPHATASE 87 U/L (30-120); ALT (SGPT) 19 U/L (10-68); BILIRUBIN - TOTAL 0.37 mg/dL (0.2-1.3); CALCIUM 8.6 mg/dL (8.5-10.1); CHLORIDE - SERUM 100 mmol/L (98-107); CREATININE - SERUM 0.8 mg/dL (0.6-1.3); MAGNESIUM - SERUM 1.7 mg/dL (1.8-2.4); PHOSPHOROUS 2.6 mg/dL (2.5-4.9); POTASSIUM - SERUM 3.5 mmol/L (3.5-5.1); SODIUM 145 mmol/L (136-145); UREA NITROGEN 20 mg/dL (7-18); eGFR NON AFRICAN AMERICAN 79 mL/min (90-120)
[2019-10-21 05:52] LABS: CALC OSMOLALITY 293 mosm/kg (275-300); GLUCOSE 142 mg/dL (74-106)
[2019-10-21 05:53] LABS: CARBON DIOXIDE 43.1 mmol/L (21.0-32.0)
[2019-10-21 06:15] LABS: BASOPHILS 0.1 % (0-2); EOSINOPHILS 1.5 % (0-7); HEMATOCRIT 31.4 % (36.0-48.0); HEMOGLOBIN 8.5 g/dL (12-16); MCH 23.7 pg (26.0-34.0); MCHC 27.1 g/dL (31.0-37.0); MCV 87.7 fL (80.0-100.0); MEAN PLATELET VOLUME 10.8 fL (7.4-10.4); MONOCYTES 7.7 % (2-11); NEUTROPHILS 82.7 % (40-80); RBC 3.58 10x6/uL (4.00-5.40); RDW 15.9 % (11.5-14.5)
[2019-10-21 06:23] LABS: PLATELET COUNT 137 10x3/uL (130-400); WBC 12.9 10x3/uL (4.8-10.8)
--- NOTE | 2019-10-21 07:41 | NUR ---
ALERT AND ORIENTED. ABLE TO ANSWER QUESTIONS. STATES WILL TAKE MEDS THIS AM. STATES "DON'T FEEL GOOD." LUNGS DIMINISHED BILATERALLY. HEART SOUNDS S1 AND S2 HEARD IN ALL CHAVEZ. BOWEL SOUNDS ACTIVE X 4. SKIN INTACT WITHOUT REDNESS. IV TO RIGHT HAND SL PATENT WITHOUT REDNESS. IV TO LEFT CHEST SL PATENT WITHOUT REDNESS. BIPAP ON. HESS PATENT DRAINING CLEAR YELLOW URINE. BED LOW. CALL MOMIN AND PERSONAL ITEMS IN REACH. WILL CONTINUE TO MONITOR.
[2019-10-21 08:55] VITALS: BP 116/50
--- NOTE | 2019-10-21 09:30 | NUR ---
PATIENT HAD BM. POWDERED SUGAR SUPERVISOR DID NOT KNOW NEEDED TO COLLECT. BM DISCARDED. WILL COLLECT NEXT SAMPLE.
[2019-10-21 12:12] VITALS: Ht 152.4 cm; Wt 158.3 kg
--- NOTE | 2019-10-21 15:14 | NUR ---
PATIENT SLEEPING. WILL CONTINUE TO MONITOR.
[2019-10-21 16:55] VITALS: BP 101/50
--- NOTE | 2019-10-21 18:55 | MORECARE ---
CASE MANAGEMENT DISCHARGE SUMMARY PATIENT: DOUGLAS HILLS UNIT: [id number] ADM DATE: 10/20/19 AGE: 54 : 63 SEX: F ROOM/BED: D.2220 AUTHOR: AMELIA MCGOVERN PHYSICIAN: REFERRING PHYSICIAN: CONNOR NESS MD DATE OF SERVICE: 10/21/19 Discharge Plan Patient Name: DOUGLAS HILLS Facility: [facility]:[place] : 1965 Planned Disposition: Nursing Facility [facility] Cert Anticipated Discharge Date: Discharge Date: Expected LOS: Initial Reviewer: [email or web address] Initial Review Date: 10/20/2019 Generated: 10/21/19 7:55 pm Patient Name: DOUGLAS HILLS Page 34014 at 1855 All edits/amendments must be made on the electronic document DICTATION DATE: 10/21/191854 CONFERENCE ORGANIZER: CLEMENT 10/21/191854 RPT#: [id number] DC DATE: STATUS: ADM IN [facility] [address] [place] [address] END OF REPORT
--- NOTE | 2019-10-21 19:02 | MORECARE ---
CASE MANAGEMENT DISCHARGE SUMMARY PATIENT: DOUGLAS HILLS UNIT: [id number] ADM DATE: 10/20/19 AGE: 54 : 63 SEX: F ROOM/BED: D.2220 AUTHOR: AMELIA MCGOVERN PHYSICIAN: REFERRING PHYSICIAN: CONNOR NESS MD DATE OF SERVICE: 10/21/19 Discharge Plan Patient Name: DOUGLAS HILLS Facility: [facility]:[place] : 1965 Planned Disposition: Nursing Facility [facility] Cert Anticipated Discharge Date: Discharge Date: Expected LOS: Initial Reviewer: [email or web address] Initial Review Date: 10/20/2019 Generated: 10/21/19 8:01 pm DCPIA - Discharge Planning Initial Assessment Updated by [email or web address]: Ginny Saaverda on 10/21/19 6:56 pm * Is the patient Alert and Oriented? Yes * How many steps to enter\exit or inside your home? * PCP Dr. Albert * Pharmacy [facility] * Preadmission Environment Materials Management Clerk Care Home * Facility Name [facility] * ADLs Partial Dependent * Partial ADLs (Assistance needed) Ambulation Bathing Dressing Eating Medication Management Toileting Transfers * Other Equipment BIPAP, 02 * List name and contact numbers for known caregivers / representatives who currently or will assist patient after discharge: ALMA ALVAREZ - [facility] - [phone] * Verbal permission to speak to the caregivers and representatives has been obtained from the patient. Yes * Additional services required to return to the preadmission environment? No * Can the patient safely return to the preadmission environment? Yes * Has this patient been hospitalized within the prior 30 days at any hospital? Yes Last DP export: 10/21/19 5:55 p Patient Name: DOUGLAS HILLS Page 52053 at 1902 All edits/amendments must be made on the electronic document DICTATION DATE: 10/21/191900 REGULATOR INSPECTOR: CLEMENT 10/21/191900 RPT#: [id number] DC DATE: STATUS: ADM IN [facility] [address] [place] [address] END OF REPORT
--- NOTE | 2019-10-21 19:08 | MORECARE ---
CASE MANAGEMENT DISCHARGE SUMMARY PATIENT: DOUGLAS HILLS UNIT: [id number] ADM DATE: 10/20/19 AGE: 54 : 63 SEX: F ROOM/BED: D.2220 AUTHOR: FROILAN,DOC PHYSICIAN: REFERRING PHYSICIAN: CONNOR NESS MD DATE OF SERVICE: 10/21/19 Discharge Plan Patient Name: DOUGLAS HILLS Facility: [facility]:[place] : 1965 Planned Disposition: Nursing Facility [facility] Cert Anticipated Discharge Date: Discharge Date: Expected LOS: Initial Reviewer: [email or web address] Initial Review Date: 10/20/2019 Generated: 10/21/19 8:08 pm Comments DCP- Discharge Planning Updated by [email or web address]: Ginny Saavedra on 10/21/19 6:[address] Patient Name: DOUGLAS HILLS Admission Status: Elective Accout number: [id number] Admission Date: 10-20-2019 : 1965 Admission Diagnosis: Attending: DORA Current LOS: 1 Anticipated DC Date: Planned Disposition: Nursing Facility [facility] Cert Primary Insurance: [facility] MEDICARE SOLUTIONS Discharge Planning Comments: CM met with patient to complete initial dc planning assessment. CM educated patient on the CM role and verbal consent given by patient to complete assessment. Patient lives at [facility] At discharge patient plans to return [facility] and feels this is a safe discharge. CM discussed availability of home health, rehab services, and medical equipment. Patient denied known discharge needs at this time. MATT signed for [facility]. CM will continue to follow and will assist as needed with dc plans/needs. Iv Rn: Ginny Saavedra DCPIA - Discharge Planning Initial Assessment Updated by [email or web address]: Ginny Saavedra on 10/21/19 6:56 pm * Is the patient Alert and Oriented? Yes * How many steps to enter\exit or inside your home? * PCP Dr. Albert * Pharmacy [facility] * Preadmission Environment Nursing Home Long Term * Facility Name [facility] * ADLs Partial Dependent * Partial ADLs (Assistance needed) Ambulation Bathing Dressing Eating Medication Management Toileting Transfers * Other Equipment BIPAP, 02 * List name and contact numbers for known caregivers / representatives who currently or will assist patient after discharge: ALMA ALVAREZ - DAUGHTER - [phone] * Verbal permission to speak to the caregivers and representatives has been obtained from the patient. Yes * Additional services required to return to the preadmission environment? No * Can the patient safely return to the preadmission environment? Yes * Has this patient been hospitalized within the prior 30 days at any hospital? Yes Last DP export: 10/21/19 6:02 p Patient Name: DOUGLAS HILLS Page 13283 at 1908 All edits/amendments must be made on the electronic document DICTATION DATE: 10/21/191907 CHIEF DIGITAL OFFICER: CLEMENT 10/21/191907 RPT#: [id number] DC DATE: STATUS: ADM IN [facility] [address] [place] [address] END OF REPORT
--- NOTE | 2019-10-21 19:30 | NUR ---
LYING IN BED. RESP LABORED. O2 @ 12L/HFC. EATING SNACKS. CONFUSED TO TIME. SLOW TO RESPOND. HESS CATH PATENT AND DRAINING CLEAR YELLOW URINE. SALINE LOCK NOTED TO RT HAND. LAYING ON RT SIDE. HOB ELEVATED. EDEMA NOTED TO BLE. SR ELEVATED X2. CL IN REACH.
[2019-10-21 20:30] VITALS: BP 110/56
--- NOTE | 2019-10-21 20:38 | NUR ---
FSBS 71. GIVEN OJ WITH SUGAR AND SNACK. WILL CONT TO MONITOR. CL IN REACH. RT IN ROOM FOR UD.
[2019-10-22 00:30] VITALS: BP 128/67
--- NOTE | 2019-10-22 00:47 | NUR ---
FSBS 62. PT LETHARGIC AND GIVEN D50 IVP. WILL CONT TO MONITOR. BIPAP IN USE.
--- NOTE | 2019-10-22 02:24 | NUR ---
FSBS 108. PT GIVEN SNACK AT THIS TIME IN ATTEMPT TO KEEP FSBS NORMAL. TAKEN OFF OF BIPAP AT THIS TIME AND PLACED ON O2 @ 12L/HFC.
[2019-10-22 04:30] VITALS: BP 134/55
[2019-10-22 04:51] LABS: BASOPHILS 0.1 % (0-2); EOSINOPHILS 2.2 % (0-7); HEMATOCRIT 30.9 % (36.0-48.0); HEMOGLOBIN 8.3 g/dL (12-16); IMMATURE GRANULOCYTES 0.5 % (0-5); LYMPHOCYTES 9.9 % (15-50); MCH 23.6 pg (26.0-34.0); MCHC 26.9 g/dL (31.0-37.0); MCV 87.8 fL (80.0-100.0); MEAN PLATELET VOLUME 8.9 fL (7.4-10.4); MONOCYTES 8.8 % (2-11); NEUTROPHILS 78.5 % (40-80); RBC 3.52 10x6/uL (4.00-5.40); WBC 10.1 10x3/uL (4.8-10.8)
[2019-10-22 05:11] LABS: PLATELET COUNT 229 10x3/uL (130-400)
[2019-10-22 05:34] LABS: ALBUMIN 2.8 g/dL (3.4-5.0); ALKALINE PHOSPHATASE 83 U/L (30-120); BILIRUBIN - TOTAL 0.34 mg/dL (0.2-1.3); CALC OSMOLALITY 283 mosm/kg (275-300); CALCIUM 9.4 mg/dL (8.5-10.1); CHLORIDE - SERUM 93 mmol/L (98-107); CREATININE - SERUM 0.8 mg/dL (0.6-1.3); GLUCOSE 146 mg/dL (74-106); POTASSIUM - SERUM 3.5 mmol/L (3.5-5.1); PROTEIN - SERUM 6.8 g/dL (6.4-8.2); SODIUM 139 mmol/L (136-145); UREA NITROGEN 21 mg/dL (7-18); eGFR NON AFRICAN AMERICAN 79 mL/min (90-120)
[2019-10-22 05:38] LABS: ALT (SGPT) 13 U/L (10-68); CARBON DIOXIDE 45.7 mmol/L (21.0-32.0)
[2019-10-22 08:00] VITALS: BP 116/46
--- NOTE | 2019-10-22 08:00 | NUR ---
PATIENT REPOSITIONED HERSELF TOWARDS THE HEAD OF BED. CL IN REACH. NO FURTHER NEEDS AT THIS TIME. WCTM
[2019-10-22 12:57] VITALS: BP 113/58; BP 127/69
--- NOTE | 2019-10-22 14:43 | NUR ---
PATIENT LAYING ON LEFT SIDE. CL IN REACH. BIPAP ON. NO NEEDS AT THIS TIME. NEW STAT LOCK PROVIDED. TM
--- NOTE | 2019-10-22 16:12 | NUR ---
IV THERAPY OUT OF RIGHT HAND TIP INTACT. FOUND ON FLOOR. CL IN REACH. WCTM
[2019-10-22 17:10] VITALS: BP 97/43
--- NOTE | 2019-10-22 23:06 | NUR ---
PT RESTING IN BED. EYES CLOSED. NO SIGNS OF DISTRESS. BREATHING LABORED. IV SITE LT SHOULDER DRESSING CLEAN DRY AND INTACT. NO SIGNS OF INFECTION OR INFULTRATION. GENERLIZED EDEMA. BIPAP ON. SKIN CLEAN DRY AND INTACT. HESS IN PLACE. WILL CONTINUE PLAN OF CARE. CALL LIGHT IN REACH. BED LOWERED AND LOCKED. BED RAILS UPX2
--- NOTE | 2019-10-22 23:15 | NUR ---
I have reviewed this patient and I concur with the Shift Assessment completed by the Licensed Practical Nurse today this shift.
[2019-10-23 05:35] LABS: BASOPHILS 0.1 % (0-2); EOSINOPHILS 3.7 % (0-7); HEMATOCRIT 32.2 % (36.0-48.0); HEMOGLOBIN 8.6 g/dL (12-16); IMMATURE GRANULOCYTES 0.4 % (0-5); LYMPHOCYTES 14.8 % (15-50); MCH 23.2 pg (26.0-34.0); MCHC 26.7 g/dL (31.0-37.0); MONOCYTES 9.2 % (2-11); NEUTROPHILS 71.8 % (40-80); RDW 15.6 % (11.5-14.5); WBC 9.5 10x3/uL (4.8-10.8)
[2019-10-23 05:49] LABS: PLATELET COUNT 308 10x3/uL (130-400)
[2019-10-23 06:02] LABS: ALBUMIN 2.8 g/dL (3.4-5.0); ANION GAP 6.4 mmol/L (8-16); BILIRUBIN - TOTAL 0.36 mg/dL (0.2-1.3); CALCIUM 9.5 mg/dL (8.5-10.1); CREATININE - SERUM 0.9 mg/dL (0.6-1.3); POTASSIUM - SERUM 3.3 mmol/L (3.5-5.1)
[2019-10-23 06:14] LABS: CARBON DIOXIDE 42.9 mmol/L (21.0-32.0)
[2019-10-23 08:00] VITALS: BP 121/64; BP 94/43
--- NOTE | 2019-10-23 08:00 | NUR ---
ASSESMENT PER FLOW SHEET. PATIENT IS WITHOUT DISTRESS.CALL LIGHT IN REACH.
--- NOTE | 2019-10-23 09:07 | EC ---
PATIENT:DOUGLAS HILLS DATE OF SERVICE: 10/20/19 SEX: F MEDICAL RECORD: [id number] DATE OF : 63 LOCATION:[facility] AGE OF PATIENT: 54 ADMISSION DATE: 10/20/19 REFERRING PHYSICIAN: INTERPRETING PHYSICIAN: CONNOR FAUSTIN MD ECHOCARDIOGRAM REPORT ECHO CHARGES 5 ECHO LIMITED Date: 10/21/19 CLINICAL DIAGNOSIS: DYSPNEA ECHOCARDIOGRAPHIC MEASUREMENTS (adult normal given) AC root (d.<3.7cm) 40 cm LV Septum d (<1.2 cm> 1.7 cm Valve Excursion 2.3 cm LV Septum (systole) 2.0 cm Left Atria (s.<4.0cm> 4.6 cm LVPW d(<1.2cm) 1.7 cm RV (d.<2.3cm) 4.3 cm LVPW (sytole) 1.9 cm LV diastole(<5.6CM) 5.3 cm MV E-F(>70mm/sec) cm LV systole 4.1 cm LVOT Diameter 2.1 cm MV exc.(>10mm) 1.2 cm Est.ejection fraction (50-75%) % DOPPLER: LVIT cm/sec A cm/sec E cm/sec LA cm/sec RVSP mmHg LVOT cm/sec AOP1/2T m/s Asc. Ao cm/sec RVOT 103 cm/sec RA cm/sec PA 165 cm/sec AV Gradient Peak mmHg AV Mean mmHg AV Area cm MV Gradient Peak mmHg MV Mean mmHg MV Area cm COMMENTS: Spinning Lathe Operator: 2 NAVA DC Receiving Associate: 3 Dr. Em TAPE# PACS Pericardial Effusion N DATE OF SERVICE: Adequate 2D, color flow imaging, spectral Doppler, and M-Mode LVH is present. LV internal dimension is normal. Wall motion is normal. EF is greater than or equal to 55%. Aortic valve is tricuspid. No evidence of stenosis by Doppler interrogation. Left atrium is dilated at 4.6 cm. Mitral valve shows no prolapse. Trace MR. Right-sided chambers are grossly normal. Mild TR. ECHOCARDIOGRAM REPORT [id number] DOUGLAS HILLS TRANSINT:[id number] Voice Confirmation ID: [id number] DOCUMENT ID: [id number] CONNOR FAUSTIN MD at 0907 CC: [id number] DICTATION DATE: 10/22/19 1355 VP PURCHASING: 10/22/19 1529 ADM IN [facility] [address] [id number]
[2019-10-23 11:44] VITALS: BP 110/55
[2019-10-23 12:00] VITALS: BP 110/55
[2019-10-23 16:00] VITALS: BP 113/40
[2019-10-23 20:00] VITALS: BP 101/51
--- NOTE | 2019-10-23 21:00 | NUR ---
PT SITTING UP IN BED WITHOUT DISTRESS, AOX4. O2 8L/HFNC. STATES GENERALIZED PAIN /10, GAVE TYLENOL. FSBS 204, COVERAGED PER SS. GAVE ZOFRAN FOR UPSET STOMACH. REFUSED MIRALAX STATING IT MADE HER STOMACH HURT. PROVIDED WATER AND JULIUS CRACKERS. DENIES OTHER NEEDS. CL IN REACH, WILL CTM
[2019-10-24] VITALS: BP 115/35
[2019-10-24 04:00] VITALS: BP 110/51
[2019-10-24 04:26] LABS: BASOPHILS 0.1 % (0-2); EOSINOPHILS 3.9 % (0-7); HEMATOCRIT 32.2 % (36.0-48.0); HEMOGLOBIN 8.8 g/dL (12-16); IMMATURE GRANULOCYTES 0.9 % (0-5); LYMPHOCYTES 14.3 % (15-50); MCH 23.4 pg (26.0-34.0); MCHC 27.3 g/dL (31.0-37.0); MCV 85.6 fL (80.0-100.0); MEAN PLATELET VOLUME 8.8 fL (7.4-10.4); MONOCYTES 9.3 % (2-11); NEUTROPHILS 71.5 % (40-80); PLATELET COUNT 314 10x3/uL (130-400); RBC 3.76 10x6/uL (4.00-5.40); WBC 10.3 10x3/uL (4.8-10.8)
[2019-10-24 04:44] LABS: ALBUMIN 2.7 g/dL (3.4-5.0); ANION GAP 4.5 mmol/L (8-16); BILIRUBIN - TOTAL 0.2 mg/dL (0.2-1.3); CALCIUM 9.2 mg/dL (8.5-10.1); CARBON DIOXIDE 39.7 mmol/L (21.0-32.0); MAGNESIUM - SERUM 1.9 mg/dL (1.8-2.4); POTASSIUM - SERUM 3.2 mmol/L (3.5-5.1); PROTEIN - SERUM 6.8 g/dL (6.4-8.2)
[2019-10-24 04:48] LABS: CREATININE - SERUM 1.4 mg/dL (0.6-1.3)
[2019-10-24 08:04] VITALS: BP 122/68
[2019-10-24 11:14] VITALS: BP 118/62
--- NOTE | 2019-10-24 11:17 | NUR ---
PT ON BIPAP, K+ IS 3.2, ADMINISTERED 40MEQ OF K+. CONTINUE WITH PLAN OF CARE
--- NOTE | 2019-10-24 12:44 | NUR ---
I have reviewed this patient and I concur with the Shift Assessment completed by the Licensed Practical Nurse today this shift.
--- NOTE | 2019-10-24 13:14 | NUR ---
Nutrition Follow-up: Eating well. Diet: Diabetic PO intake: 100% x last 4 meals No new wt; last wt: 349# (10/20) Labs noted: K+ 3.2, Glu 206, Alb 2.7 Meds noted: KDur, Miralax, MagOx, Floranex, Bumex, Carafate, Protonix, Humulin -Continue current diet as tolerated. -Monitor wt; noted daily wts ordered. -RD following.
--- NOTE | 2019-10-24 15:26 | MORECARE ---
CASE MANAGEMENT DISCHARGE SUMMARY PATIENT: DOUGLAS HILLS UNIT: [id number] ADM DATE: 10/20/19 AGE: 54 : 63 SEX: F ROOM/BED: D.2220 AUTHOR: FROILAN,DOC PHYSICIAN: REFERRING PHYSICIAN: CONNOR NESS MD DATE OF SERVICE: 10/24/19 Discharge Plan Patient Name: DOUGLAS HILLS Facility: [facility]:[place] : 1965 Planned Disposition: Nursing Facility [facility] Cert Anticipated Discharge Date: Discharge Date: Expected LOS: Initial Reviewer: [id number] Initial Review Date: 10/20/2019 Generated: 10/24/19 4:26 pm Comments DCP- Discharge Planning Updated by [id number]: Ginny Saavedra on 10/21/19 6:[address] Patient Name: DOUGLAS HILLS Admission Status: Elective Accout number: [id number] Admission Date: 10-20-2019 : 1965 Admission Diagnosis: Attending: DORA Current LOS: 1 Anticipated DC Date: Planned Disposition: Nursing Facility [facility] Cert Primary Insurance: [facility] MEDICARE SOLUTIONS Discharge Planning Comments: CM met with patient to complete initial dc planning assessment. CM educated patient on the CM role and verbal consent given by patient to complete assessment. Patient lives at [facility] At discharge patient plans to return [facility] and feels this is a safe discharge. CM discussed availability of home health, rehab services, and medical equipment. Patient denied known discharge needs at this time. MATT signed for [facility]. CM will continue to follow and will assist as needed with dc plans/needs. Washer Hand: Ginny Saavedra DCPIA - Discharge Planning Initial Assessment Updated by [email or web address]: Ginny Saavedra on 10/21/19 6:56 pm * Is the patient Alert and Oriented? Yes * How many steps to enter\exit or inside your home? * PCP Dr. Albert * Pharmacy [facility] * Preadmission Environment [facility] * Facility Name [facility] * ADLs Partial Dependent * Partial ADLs (Assistance needed) Ambulation Bathing Dressing Eating Medication Management Toileting Transfers * Other Equipment BIPAP, 02 * List name and contact numbers for known caregivers / representatives who currently or will assist patient after discharge: ALMA ALVAREZ - DAUGHTER - [phone] * Verbal permission to speak to the caregivers and representatives has been obtained from the patient. Yes * Additional services required to return to the preadmission environment? No * Can the patient safely return to the preadmission environment? Yes * Has this patient been hospitalized within the prior 30 days at any hospital? Yes External Providers External Provider: [facility] Next Contact Date: 10/24/2019 Service Request Date: Service Type: Resolution: Reviewer: Comments: Coverage Notice Reviewer: [id number] - Ginny Saavedra Notice Issued Date-Time: 10/21/2019 14:30 Notice Type: Patient Choice Letter Notice Delivered To: Patient Relationship to Patient: Self Silversmith Apprentice Name: Delivery Method: HAND - Hand Delivered Adrianne Days: Prior Verbal Notification: Yes Recipient Understood Notice: Recipient Signature: Med Rec Note Co-signed by Attending: Coverage Notice Comment: Last DP export: 10/21/19 6:08 p Patient Name: DOUGLAS HILLS Page [id number] at 1526 All edits/amendments must be made on the electronic document DICTATION DATE: 10/24/19 1526 FACTORY LAY OUT ENGINEER: CLEMENT 10/24/19 1526 RPT#: [id number] DC DATE: STATUS: ADM IN [facility] [address] [place] [address] END OF REPORT
--- NOTE | 2019-10-24 15:40 | MORECARE ---
CASE MANAGEMENT DISCHARGE SUMMARY PATIENT: DOUGLAS HILLS UNIT: [id number] ADM DATE: 10/20/19 AGE: 54 : 63 SEX: F ROOM/BED: D.2220 AUTHOR: FROILAN,DOC PHYSICIAN: REFERRING PHYSICIAN: CONNOR NESS MD DATE OF SERVICE: 10/24/19 Discharge Plan Patient Name: DOUGLAS HILLS Facility: [facility]:[place] : 1965 Planned Disposition: Nursing Facility [facility] Cert Anticipated Discharge Date: Discharge Date: Expected LOS: Initial Reviewer: [email or web address] Initial Review Date: 10/20/2019 Generated: 10/24/19 4:40 pm Comments DCP- Discharge Planning Updated by [email or web address]: Davin Osman on 10/24/19 2:[address] Patient Name: DOUGLAS HILLS Encounter No: [id number] : 1965 Primary Insurance: [facility] MEDICARE SOLUTIONS Anticipated DC Date: Planned Disposition: Nursing Facility [facility] Cert External Planned Provider: [facility] LONG TERM CARE MEDICAID BED DCP follow-up note: CM FAXED UPDATE TO [facility] VIA [place]rolia AT, . FOR DISCHARGE BACK TO [facility], FAX DISCHARGE INFORMATION TO [facility] AT [phone]; NURSE REPORT TO BE CALLED TO [facility] AT [phone]. [facility] TO ARRANGE VAN TRANSPORATION. CARMEN Fernandez DCP- Discharge Planning Updated by [id number]: Ginny Saavedra on 10/21/19 6:[address] Patient Name: DOUGLAS HILLS Admission Status: Elective Accout number: [id number] Admission Date: 10-20-2019 : 1965 Admission Diagnosis: Attending: DORA Current LOS: 1 Anticipated DC Date: Planned Disposition: Nursing Facility [facility] Cert Primary Insurance: [facility] MEDICARE SOLUTIONS Discharge Planning Comments: CM met with patient to complete initial dc planning assessment. CM educated patient on the CM role and verbal consent given by patient to complete assessment. Patient lives at [facility] At discharge patient plans to return [facility] and feels this is a safe discharge. CM discussed availability of home health, rehab services, and medical equipment. Patient denied known discharge needs at this time. MATT signed for [facility]. CM will continue to follow and will assist as needed with dc plans/needs. Varnish Blender: Ginny Saavedra DCPIA - Discharge Planning Initial Assessment Updated by [id number]: Ginny Saavedra on 10/21/19 6:56 pm * Is the patient Alert and Oriented? Yes * How many steps to enter\exit or inside your home? * PCP Dr. Albert * Pharmacy [facility] * Preadmission Environment [facility] * Facility Name [facility] * ADLs Partial Dependent * Partial ADLs (Assistance needed) Ambulation Bathing Dressing Eating Medication Management Toileting Transfers * Other Equipment BIPAP, 02 * List name and contact numbers for known caregivers / representatives who currently or will assist patient after discharge: ALMA HEALY - [phone] * Verbal permission to speak to the caregivers and representatives has been obtained from the patient. Yes * Additional services required to return to the preadmission environment? No * Can the patient safely return to the preadmission environment? Yes * Has this patient been hospitalized within the prior 30 days at any hospital? Yes Coverage Notice Reviewer: [id number] - Ginny Saavedra Notice Issued Date-Time: 10/21/2019 14:30 Notice Type: Patient Choice Letter Notice Delivered To: Patient Relationship to Patient: Self Interactive Marketing Strategist Name: Delivery Method: HAND - Hand Delivered Adrianne Days: Prior Verbal Notification: Yes Recipient Understood Notice: Recipient Signature: Med Rec Note Co-signed by Attending: Coverage Notice Comment: Last DP export: 10/24/19 2:26 pm Patient Name: DOUGLAS HILLS Page [id number] at 1540 All edits/amendments must be made on the electronic document DICTATION DATE: 10/24/19 1540 FILTER TANK TENDER HELPER HEAD: CLEMENT 10/24/19 1540 RPT#: [id number] DC DATE: STATUS: ADM IN [facility] [address] [place] [address] END OF REPORT
[2019-10-24 17:04] VITALS: BP 123/66
--- NOTE | 2019-10-24 18:18 | NUR ---
PT REQUESTED PAIN MEDICATION FOR HEAD AND BACK, INFORMED HER THAT MEDICATION IS ORDERED Q8 PRN AND CAN NOT HAVE UNTIL 9 PM. PT STATED SHE USUALLY TAKES IT Q4 WITH PAIN DOCTOR, EXPLAN ADVERSE REACTIONS AGAIN WITH NAYLA AND OTHER UNDERLYING PROBLEMS. PT VOCALIZED UNDERSTANDING. CONTINUE WITH PLAN OF CARE
--- NOTE | 2019-10-24 19:10 | NUR ---
PATIENT IS ALERT AND ORIENTED WATCHING TV AT THIS TIME. PATIENT IS CALM AND ANSWERS QUESTIONS APPROPRIATELY. CURRENTLY WEARING 6L VIA HIGH FLOW CANNULA. HESS CATHETER IS PATENT DRAINING YELLOW URINE. SPOKE WITH PATIENT ABOUT DR'S ORDERS FOR 4 HOURS ON/4 HOURS OFF BIPAP. PATIENT STATES UNDERSTANDING. REQUESTS PAIN PILL WITH NIGHT TIME MEDICATIONS. PATIENT HAS RIGHT UPPER ARM IV THAT IS SALINE LOCKED. FLUSHED FOR PATENCY AND HAS BLOOD RETURN. CLEANED PATIENT ROOM. PROVIDED WITH WATER. DENIES FURTHER NEEDS AT THIS TIME. CPOC.
[2019-10-24 21:06] VITALS: BP 112/56
--- NOTE | 2019-10-24 21:08 | NUR ---
ADMINSTERED HS MEDICATIONS AND PAIN MEDICATION PER REQUEST. TOLERATED WITH NO ISSUES. DENIES FURTHER NEEDS. CALL LIGHT IN REACH. CPOC.
--- NOTE | 2019-10-25 00:04 | NUR ---
RESTING WITH BIPAP ON. NO ISSUES NOTED. CPOC.
--- NOTE | 2019-10-25 03:00 | NUR ---
I have reviewed this patient and I concur with the Shift Assessment completed by the Licensed Practical Nurse today this shift.
[2019-10-25 05:00] VITALS: BP 121/53
[2019-10-25 06:04] LABS: BASOPHILS 0.1 % (0-2); EOSINOPHILS 4.2 % (0-7); HEMATOCRIT 32.9 % (36.0-48.0); IMMATURE GRANULOCYTES 0.6 % (0-5); LYMPHOCYTES 14.3 % (15-50); MCH 23.7 pg (26.0-34.0); MCHC 27.4 g/dL (31.0-37.0); MCV 86.8 fL (80.0-100.0); MEAN PLATELET VOLUME 8.7 fL (7.4-10.4); NEUTROPHILS 70.8 % (40-80); PLATELET COUNT 302 10x3/uL (130-400); RBC 3.79 10x6/uL (4.00-5.40); RDW 16.1 % (11.5-14.5); WBC 9.9 10x3/uL (4.8-10.8)
[2019-10-25 06:30] LABS: ALBUMIN 2.8 g/dL (3.4-5.0); ANION GAP 4.2 mmol/L (8-16); BILIRUBIN - TOTAL 0.32 mg/dL (0.2-1.3); CALCIUM 9.2 mg/dL (8.5-10.1); MAGNESIUM - SERUM 1.9 mg/dL (1.8-2.4); POTASSIUM - SERUM 3.2 mmol/L (3.5-5.1); PROTEIN - SERUM 6.8 g/dL (6.4-8.2)
[2019-10-25 08:00] VITALS: BP 109/48
--- NOTE | 2019-10-25 08:00 | NUR ---
ASSESSMENT PER FLOW SHEET. PATIENT IS WITHOUT DISTRESS.MONITOR FOR NEEDS.CALL LIGHT IN REACH
[2019-10-25 16:00] VITALS: BP 104/57
[2019-10-25 20:00] VITALS: BP 107/46
[2019-10-26] VITALS: BP 98/43
[2019-10-26 04:00] VITALS: BP 123/53
[2019-10-26 06:02] LABS: BASOPHILS 0.1 % (0-2); EOSINOPHILS 4.1 % (0-7); HEMATOCRIT 32.1 % (36.0-48.0); HEMOGLOBIN 8.8 g/dL (12-16); IMMATURE GRANULOCYTES 0.8 % (0-5); LYMPHOCYTES 15.9 % (15-50); MCH 23.8 pg (26.0-34.0); MCHC 27.4 g/dL (31.0-37.0); MEAN PLATELET VOLUME 8.6 fL (7.4-10.4); MONOCYTES 9.1 % (2-11); PLATELET COUNT 280 10x3/uL (130-400); RBC 3.69 10x6/uL (4.00-5.40); RDW 16.5 % (11.5-14.5)
[2019-10-26 06:15] LABS: ALBUMIN 2.8 g/dL (3.4-5.0); ANION GAP 8.5 mmol/L (8-16); BILIRUBIN - TOTAL 0.29 mg/dL (0.2-1.3); CALCIUM 9.1 mg/dL (8.5-10.1); CARBON DIOXIDE 34.1 mmol/L (21.0-32.0); POTASSIUM - SERUM 3.6 mmol/L (3.5-5.1); PROTEIN - SERUM 6.7 g/dL (6.4-8.2)
--- NOTE | 2019-10-26 07:10 | NUR ---
PT RESTING IN BED. NO SIGNS OF DISTRESS. IV TO RIGHT CHEST PATENT NO REDNESS OR TENDERNESS. ON 6L NC WITH BIPAP AT NIGHT. HAD HESS NO KINKS PATENT. DENIES ANY FURTHER NEED AT THIS TIME. CALL LIGHT IN REACH. BED LOW POSITION. NO FAMILY AT BEDSIDE AT THIS TIME.
[2019-10-26 08:26] VITALS: BP 136/62
[2019-10-26 13:09] VITALS: BP 111/61
--- NOTE | 2019-10-26 13:57 | NUR ---
I have reviewed this patient and I concur with the Shift Assessment completed by the Licensed Practical Nurse today this shift.
[2019-10-26 16:05] VITALS: BP 106/53
[2019-10-26 19:57] VITALS: BP 99/51
[2019-10-27] VITALS: BP 101/53
[2019-10-27 04:00] VITALS: BP 102/56
--- NOTE | 2019-10-27 06:21 | NUR ---
I have reviewed this patient and I concur with the Shift Assessment completed by the Licensed Practical Nurse today this shift.
[2019-10-27 07:02] LABS: BASOPHILS 0.1 % (0-2); EOSINOPHILS 3.4 % (0-7); HEMATOCRIT 33.6 % (36.0-48.0); HEMOGLOBIN 9.1 g/dL (12-16); IMMATURE GRANULOCYTES 0.7 % (0-5); LYMPHOCYTES 13.7 % (15-50); MCH 23.8 pg (26.0-34.0); MCHC 27.1 g/dL (31.0-37.0); MEAN PLATELET VOLUME 8.7 fL (7.4-10.4); MONOCYTES 9.9 % (2-11); NEUTROPHILS 72.2 % (40-80); PLATELET COUNT 275 10x3/uL (130-400); RBC 3.82 10x6/uL (4.00-5.40); RDW 17.2 % (11.5-14.5); WBC 10.1 10x3/uL (4.8-10.8)
[2019-10-27 07:21] LABS: ALBUMIN 2.8 g/dL (3.4-5.0); ANION GAP 4.9 mmol/L (8-16); BILIRUBIN - TOTAL 0.28 mg/dL (0.2-1.3); CALCIUM 8.8 mg/dL (8.5-10.1); CARBON DIOXIDE 36.5 mmol/L (21.0-32.0); POTASSIUM - SERUM 3.4 mmol/L (3.5-5.1); PROTEIN - SERUM 6.8 g/dL (6.4-8.2)
[2019-10-27 08:53] VITALS: BP 115/50
--- NOTE | 2019-10-27 12:09 | NUR ---
OT NOTE: PT REPORTED FEELING MUCH BETTER. STATES THAT SHE IS TIRED OF USING BEDPAN AND WANTS TO GO TO TOILET; BED MOB WITH SPV; MAX ASSIST TO NIKITA SOCKS AND MIN ASSIST TO NIKITA GOWN. ALBE TO AMB TO BATHROOM WITH WALKER AND MIN ASSIST; TOILET HYGIENE WITH MIN ASSIST; SIT TO STAND WITH MIN ASSIST; AMB BACK TO BED WITH MIN ASSIST. PT WAS SOB UPON RETURN TO BED, BUT IMPROVED WITHIN A FEW MIN. BACK TO BED WITHOUT ASSIST. BERNADINE HILL,OTR/L [phone]
[2019-10-27 12:13] VITALS: BP 113/48
[2019-10-27] MEDS ORDERED: LEVAQUIN750 MG PO (13:04)
--- NOTE | 2019-10-27 14:12 | MORECARE ---
CASE MANAGEMENT DISCHARGE SUMMARY PATIENT: DOUGLAS HILLS UNIT: [id number] ADM DATE: 10/20/19 AGE: 54 : 63 SEX: F ROOM/BED: D.2220 AUTHOR: FROILAN,DOC PHYSICIAN: REFERRING PHYSICIAN: CONNOR NESS MD DATE OF SERVICE: 10/27/19 Discharge Plan Patient Name: DOUGLAS HILLS Facility: [facility]:[place] : 1965 Planned Disposition: Nursing Facility [facility] Cert Anticipated Discharge Date: Discharge Date: Expected LOS: Initial Reviewer: [email or web address] Initial Review Date: 10/20/2019 Generated: 10/27/19 3:12 pm Comments DCP- Discharge Planning Updated by [email or web address]: Ginny Saavedra on 10/27/19 1:[address] Patient Name: DOUGLAS HILLS Encounter No: [id number] : 1965 Primary Insurance: [facility] MEDICARE SOLUTIONS Anticipated DC Date: Planned Disposition: Nursing Facility [facility] Cert External [facility] follow[facility]up [facility]: Patient and family in agreement with discharge plan. No changes to plan. D/C IMM signed 10/27/19 @ 1210. DEJON faxed discharge records and called Sandhya with 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 Case management will follow and assist as needed. Ginny Saavedra DCP- Discharge Planning Updated by [email or web address]: Davin Osman on 10/24/19 2:[address] Patient Name: DOUGLAS HILLS Encounter No: [id number] : 1965 Primary Insurance: [facility] MEDICARE SOLUTIONS Anticipated DC Date: Planned Disposition: Nursing Facility [facility] Cert External Planned Provider: [facility] LONG TERM CARE MEDICAID BED DCP follow-up note: DEJON FAXED UPDATE TO [facility] VIA SANDHYA AT, . FOR DISCHARGE BACK TO [facility], FAX DISCHARGE INFORMATION TO [facility] AT [phone]; NURSE REPORT TO BE CALLED TO [facility] AT [phone]. [facility] TO ARRANGE VAN TRANSPORATION. Davin Osman, CASE MANAGEMENT DCP- Discharge Planning Updated by [id number]: Ginny Saavedra on 10/21/19 6:[address] Patient Name: DOUGLAS HILLS Admission Status: Elective Accout number: [id number] Admission Date: 10-20-2019 : 1965 Admission Diagnosis: Attending: DORA Current LOS: 1 Anticipated DC Date: Planned Disposition: Nursing Facility [facility] Primary Insurance: [facility] MEDICARE SOLUTIONS Discharge Planning Comments: CM met with patient to complete initial dc planning assessment. CM educated patient on the CM role and verbal consent given by patient to complete assessment. Patient lives at [facility] At discharge patient plans to return [facility] and feels this is a safe discharge. CM discussed availability of home health, rehab services, and medical equipment. Patient denied known discharge needs at this time. MATT signed for [facility]. CM will continue to follow and will assist as needed with dc plans/needs. Barrel Tester: Ginny Saavedra DCPIA - Discharge Planning Initial Assessment Updated by [id number]: Ginny Saavedra on 10/21/19 6:56 pm * Is the patient Alert and Oriented? Yes * How many steps to enter\exit or inside your home? * PCP Dr. Albert * Pharmacy [facility] * Preadmission Environment [facility] Term * Facility Name [facility] * ADLs Partial Dependent * Partial ADLs (Assistance needed) Ambulation Bathing Dressing Eating Medication Management Toileting Transfers * Other Equipment BIPAP, 02 * List name and contact numbers for known caregivers / representatives who currently or will assist patient after discharge: ALMA ALVAREZ - [facility] - [phone] * Verbal permission to speak to the caregivers and representatives has been obtained from the patient. Yes * Additional services required to return to the preadmission environment? No * Can the patient safely return to the preadmission environment? Yes * Has this patient been hospitalized within the prior 30 days at any hospital? Yes Coverage Notice Reviewer: [id number] Bayron Saavedra Notice Issued Date-Time: 10/21/2019 14:30 Notice Type: Patient Choice Letter Notice Delivered To: Patient Relationship to Patient: Self Injury Prevention Coordinator Name: Delivery Method: HAND - Hand Delivered Adrianne Days: Prior Verbal Notification: Yes Recipient Understood Notice: Recipient Signature: Med Rec Note Co-signed by Attending: Coverage Notice Comment: Reviewer: [email or web address] Bayron Saavedra Notice Issued Date-Time: 10/27/2019 12:10 Notice Type: IM Discharge Notice Notice Delivered To: Patient Relationship to Patient: Self Injury Prevention Coordinator Name: Delivery Method: HAND - Hand Delivered Adrianne Days: Prior Verbal Notification: Recipient Understood Notice: Yes Recipient Signature: Yes Med Rec Note Co-signed by Attending: Coverage Notice Comment: Last DP export: 10/24/19 2:40 pm Patient Name: DOUGLAS HILLS Page [id number] at 1412 All edits/amendments must be made on the electronic document DICTATION DATE: 10/27/19 1412 RESEARCH CHIEF ENGINEER: CLEMENT 10/27/19 1412 RPT#: [id number] DC DATE: STATUS: ADM IN [facility] [address] [place] [address] END OF REPORT
--- NOTE | 2019-10-27 14:13 | NUR ---
PT HAS A HIGH RISK OF IMPAIRED SKIN INTEGRITY -TURN/REPOSITION Q 2 HOURS (REPOSITION HOURLY IF UP IN CHAIR) -FLOAT HEELS -PERSONAL CARE DAILY AND NEEDED. APPLY CALMOSEPTINE IF REDNESS IS NOTED DUE TO INCONTINENCE/MOISTURE -DOCUMENT SKIN ASSESSMENT Q SHIFT -CONSULT WOUND CARE IF PRESSURE INJURIES ARE PRESENT AND/OR FOR NON-BLANCHABLE REDNESS OVER BONY PROMINENCES
--- NOTE | 2019-10-27 14:42 | NUR ---
REPORT CALLED TO [facility] AT THIS TIME. ASKED FOR THEM TO BRING PATIENT SHORTS REQUESTED. PATIENT IN BED EYES CLOSED RESTING QUIETLY. CALL LIGHT WITHIN REACH. JIMENA REMOVED AT THIS TIME.
--- NOTE | 2019-10-27 15:40 | NUR ---
PATIENT RECIEVED DC INSTRUCTIONS. VERBALIZED UNDERSTANDING. NO QUESTIONS AT THIS TIME. HESS REMOVED. PATIENT HAS NO IV. TRANSPORTATION HERE IN ADMISSIONS WAITING FOR PATIENT TO BE ESCORTED OUT VIA WC.
--- NOTE | 2019-10-27 15:55 | NUR ---
PATIENT ESCORTED VIA WC TO [facility] TO BE TRANSPORTED TO CO WITH PERSONAL BELONGINGS AND O2 BY DRAPERY SEAMSTRESS.
--- NOTE | 2019-10-27 20:01 | MORECARE ---
CASE MANAGEMENT DISCHARGE SUMMARY PATIENT: DOUGLAS HILLS UNIT: [id number] ADM DATE: 10/20/19 AGE: 54 : 63 SEX: F ROOM/BED: D.2220 AUTHOR: FROILAN,DOC PHYSICIAN: REFERRING PHYSICIAN: CONNOR NESS MD DATE OF SERVICE: 10/27/19 Discharge Plan Patient Name: DOUGLAS HILLS Facility: [facility]:[place] : 1965 Planned Disposition: Nursing Facility [facility] Cert Anticipated Discharge Date: Discharge Date: 10/27/2019 Expected LOS: Initial Reviewer: [email or web address] Initial Review Date: 10/20/2019 Generated: 10/27/19 9:01 pm Comments DCP- Discharge Planning Updated by [email or web address]: Ginny Saavedra on 10/27/19 1:[address] Patient Name: DOUGLAS HILLS Encounter No: [id number] : 1965 Primary Insurance: [facility] MEDIC[employer] SOLUTIONS Anticipated DC Date: Planned Disposition: Nursing Facility [facility] Cert External Planned Provider: : [facility] DCP follow-up note: Patient and family in agreement with discharge plan. No changes to plan. D/C IMM signed 10/27/19 @ 1210. 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 Case management will follow and assist as needed. Ginny Saavedra DCP- Discharge Planning Updated by [email or web address]: Davin Osman on 10/24/19 2:[address] Patient Name: DOUGLAS HILLS Encounter No: [id number] : 1965 Primary Insurance: [facility] MED[employer] SOLUTIONS Anticipated DC Date: Planned Disposition: Nursing Facility [facility] Cert External Planned Provider: [facility] LONG TERM C[facility] MEDICAID BED DCP follow-up note: DEJON FAXED UPDATE TO [facility] VIA SANDHYA AT, . FOR DISCHARGE BACK TO [facility], FAX DISCHARGE INFORMATION TO [facility] AT [phone]; NURSE REPORT TO BE CALLED TO [facility] AT [phone]. [facility] TO ARRANGE VAN TRANSPORATION. Davin Osman CASE MANAGEMENT DCP- Discharge Planning Updated by [id number]: Ginny Saavedra on 10/21/19 6:[address] Patient Name: DOUGLAS HILLS Admission Status: Elective Accout number: [id number] Admission Date: 10-20-2019 : 1965 Admission Diagnosis: Attending: DORA Current LOS: 1 Anticipated DC Date: Planned Disposition: Nursing Facility [facility] Primary Insurance: [facility] [employer] SOLUTIONS Discharge Planning Comments: CM met with patient to complete initial dc planning assessment. CM educated patient on the CM role and verbal consent given by patient to complete assessment. Patient lives at [facility] At discharge patient plans to return [facility] and feels this is a safe discharge. CM discussed availability of home health, rehab services, and medical equipment. Patient denied known discharge needs at this time. MATT signed for [facility]. CM will continue to follow and will assist as needed with dc plans/needs. Mold Inspector: Ginny Saavedra DCPIA - Discharge Planning Initial Assessment Updated by [email or web address]: Ginny Saavedra on 10/21/19 6:56 pm * Is the patient Alert and Oriented? Yes * How many steps to enter\exit or inside your home? * PCP Dr. Albert * Pharmacy [facility] * Preadmission Environment Roll Shop Supervisor Shelter * Facility Name [facility] * ADLs Partial Dependent * Partial ADLs (Assistance needed) Ambulation Bathing Dressing Eating Medication Management Toileting Transfers * Other Equipment BIPAP, 02 * List name and contact numbers for known caregivers / representatives who currently or will assist patient after discharge: ALMA ALVAREZ - [facility] - [phone] * Verbal permission to speak to the caregivers and representatives has been obtained from the patient. Yes * Additional services required to return to the preadmission environment? No * Can the patient safely return to the preadmission environment? Yes * Has this patient been hospitalized within the prior 30 days at any hospital? Yes Coverage Notice Reviewer: [email or web address] Bayron Saavedra Notice Issued Date-Time: 10/21/2019 14:30 Notice Type: Patient Choice Letter Notice Delivered To: Patient Relationship to Patient: Self [place] Aide Name: Delivery Method: HAND - Hand Delivered Adrianne Days: Prior Verbal Notification: Yes Recipient Understood Notice: Recipient Signature: Med Rec Note Co-signed by Attending: Coverage Notice Comment: Reviewer: [id number] - Ginny Saavedra Notice Issued Date-Time: 10/27/2019 12:10 Notice Type: IM Discharge Notice Notice Delivered To: Patient Relationship to Patient: Self [place] Aide Name: Delivery Method: HAND - Hand Delivered Adrianne Days: Prior Verbal Notification: Recipient Understood Notice: Yes Recipient Signature: Yes Med Rec Note Co-signed by Attending: Coverage Notice Comment: Last DP export: 10/27/19 1:12 pm Patient Name: DOUGLAS HILLS Page 18719 at 2000 All edits/amendments must be made on the electronic document DICTATION DATE: 10/27/192000 ASSEMBLER TESTER: CLEMENT 10/27/192000 RPT#: [id number] DC DATE:10/27/19 STATUS: DIS IN [facility] [address] [place] [address] END OF REPORT
== END 2019-10-27 16:31 | DRG 291 ==
LOC: D.ER 13:10 → D.MS 13:51
PROVIDERS: Family Medicine; ADMIT Family Medicine; ATTEND Family Medicine
DX: I11.0 Hypertensive heart disease with heart failure (principal); J18.9 Pneumonia, unspecified organism; J96.22 Acute and chronic respiratory failure with hypercapnia; G93.41 Metabolic encephalopathy; J96.21 Acute and chronic respiratory failure with hypoxia; J90 Pleural effusion, not elsewhere classified; J44.0 Chronic obstructive pulmonary disease with (acute) lower respiratory infection; J44.1 Chronic obstructive pulmonary disease with (acute) exacerbation; E66.2 Morbid (severe) obesity with alveolar hypoventilation; Z68.44 Body mass index [BMI] 60.0-69.9, adult; I50.33 Acute on chronic diastolic (congestive) heart failure; E11.65 Type 2 diabetes mellitus with hyperglycemia; D64.9 Anemia, unspecified; E87.5 Hyperkalemia; E11.40 Type 2 diabetes mellitus with diabetic neuropathy, unspecified; E03.9 Hypothyroidism, unspecified; I25.10 Atherosclerotic heart disease of native coronary artery without angina pectoris; I25.2 Old myocardial infarction; E78.5 Hyperlipidemia, unspecified; K21.9 Gastro-esophageal reflux disease without esophagitis; K59.09 Other constipation

== ENCOUNTER 2019-11-09 08:30 | Inpatient (IN) | payer MEDICARE, MEDICAID ==
[~2019-11-09] VITALS: Ht 152.4 cm; Wt 154.2 kg
[2019-11-09] VITALS (20 sets, daily range): BP systolic 107–131; BP diastolic 43–73; BMI 66.5
[2019-11-09 08:58] LABS: BASOPHILS 0.1 % (0-2); EOSINOPHILS 2.4 % (0-7); HEMATOCRIT 36.2 % (36.0-48.0); HEMOGLOBIN 9.6 g/dL (12-16); IMMATURE GRANULOCYTES 1.2 % (0-5); LYMPHOCYTES 14.9 % (15-50); MCH 24.4 pg (26.0-34.0); MCHC 26.5 g/dL (31.0-37.0); MCV 92.1 fL (80.0-100.0); MEAN PLATELET VOLUME 8.9 fL (7.4-10.4); MONOCYTES 6.3 % (2-11); NEUTROPHILS 75.1 % (40-80); PLATELET COUNT 190 10x3/uL (130-400); RBC 3.93 10x6/uL (4.00-5.40); RDW 17.1 % (11.5-14.5); WBC 13.9 10x3/uL (4.8-10.8)
--- NOTE | 2019-11-09 09:11 | NUR ---
ETOMIDATE AND SUCCS GIVEN PRIOR TO INTUBATION. DR. CROOK IN ROOM, 24 AT LIP
[2019-11-09 09:12] LABS: APTT 29.1 SECONDS (22.8-39.4); INR 0.97 (0.85-1.17); PROTIME 12.8 SECONDS (11.6-15.0)
--- NOTE | 2019-11-09 09:17 | NUR ---
SOFT WRIST RESTRAINTS PLACED ON PT
[2019-11-09 09:29] LABS: ALBUMIN 3.2 g/dL (3.4-5.0); ALKALINE PHOSPHATASE 99 U/L (30-120); ALT (SGPT) 16 U/L (10-68); BILIRUBIN - TOTAL 0.43 mg/dL (0.2-1.3); CALC OSMOLALITY 289 mosm/kg (275-300); CALCIUM 8.9 mg/dL (8.5-10.1); CHLORIDE - SERUM 101 mmol/L (98-107); CREATINE KINASE 29 UL (21-215); CREATININE - SERUM 0.9 mg/dL (0.6-1.3); GLUCOSE 163 mg/dL (74-106); POTASSIUM - SERUM 4.1 mmol/L (3.5-5.1); PRO BNP 376 pg/mL (0-125); PROTEIN - SERUM 7.5 g/dL (6.4-8.2); SODIUM 143 mmol/L (136-145); UREA NITROGEN 16 mg/dL (7-18); eGFR NON AFRICAN AMERICAN 69 mL/min (90-120)
[2019-11-09 09:32] LABS: CARBON DIOXIDE 43.4 mmol/L (21.0-32.0); TROPONIN-I < 0.017 ng/mL (0.000-0.060)
--- NOTE | 2019-11-09 09:43 | NUR ---
DR. PACHECO HERE TO SEE PT.
--- NOTE | 2019-11-09 09:47 | NUR ---
PROPOFOL INCREASED TO 30
--- NOTE | 2019-11-09 09:50 | NUR ---
DR. PACHECO HERE TUBE TO BE PULLED BACK. 23 AT TEETH.
--- NOTE | 2019-11-09 11:12 | NUR ---
DR. HARO HERE , TALKING TO PT. PROPOFOL INCREASED 36.5ML/HR
[2019-11-09 11:41] LABS: BILIRUBIN NEGATIVE (NEGATIVE); GLUCOSE NEGATIVE (NEGATIVE); KETONE NEGATIVE (NEGATIVE); NITRITE NEGATIVE (NEGATIVE); UROBILINOGEN NORMAL (NORMAL)
--- NOTE | 2019-11-09 12:10 | NUR ---
RECEIVED PT TO ROOM 2315 VIA BED ACCOMPANIED BY ER STAFF. PT INTUBATED AND SEDATED, PT RESTING IN BED WITH EYES OPEN. VSS. WILL CONT TO MONITOR.
--- NOTE | 2019-11-09 13:00 | NUR ---
PT RESTING IN BED WITH EYES CLOSED. EPHRAIM RT AT BEDSIDE. WILL CONT TO MONITOR.
--- NOTE | 2019-11-09 14:52 | NUR ---
GOT DAUGHTERS AND SONS PHONE NUMBERS FROM THE [facility] PT LIVES AT. CALLED ALL NUMBERS MULTIPLE TIMES, NO ANSWER NOTED. WILL CONT TO CALL.
--- NOTE | 2019-11-09 17:00 | NUR ---
PT RESTING WITH EYES CLOSED. SEDATED, NO ACUTE NEEDS OR DISTRESS NOTED AT THIS TIME. VSS. WILL CONT TO MONITOR.
--- NOTE | 2019-11-09 19:00 | NUR ---
REPORT RECEIVED, PT SEDATED ON VENT. ASSESSMENT COMPLETED, SEE FLOWSHEET. PIV IN LT CHEST, LT UPPER ARM, SEE IV FLOWSHEET. NO ACUTE DISTRESS NOTED. WILL CONTINUE TO MONITOR.
--- NOTE | 2019-11-09 21:00 | NUR ---
PT SEDATED ON VENT, NO ACUTE DISTRESS NOTED. WILL CONTINUE TO MONITOR.
--- NOTE | 2019-11-09 23:00 | NUR ---
REASSESSMENT COMPLETED, SEE FLOWSHEET. NO ACUTE DISTRESS NOTED.
[2019-11-10] VITALS (24 sets, daily range): BP systolic 105–141; BP diastolic 51–77; Ht 152.4 cm; Wt 154.2 kg
--- NOTE | 2019-11-10 01:00 | NUR ---
PT RESTING IN BED, NO ACUTE DISTRESS NOTED.
--- NOTE | 2019-11-10 03:00 | NUR ---
REASSESSMENT COMPLETED, SEE FLOWSHEET. NO ACUTE DISTRESS NOTED.
--- NOTE | 2019-11-10 05:00 | NUR ---
PT SEDATED ON VENT, NO ACUTE DISTRESS NOTED.
[2019-11-10 06:00] LABS: BASOPHILS 0.1 % (0-2); EOSINOPHILS 3.3 % (0-7); HEMATOCRIT 30.7 % (36.0-48.0); HEMOGLOBIN 8.2 g/dL (12-16); IMMATURE GRANULOCYTES 0.5 % (0-5); LYMPHOCYTES 12.8 % (15-50); MCH 23.8 pg (26.0-34.0); MCHC 26.7 g/dL (31.0-37.0); MEAN PLATELET VOLUME 9.2 fL (7.4-10.4); NEUTROPHILS 75.3 % (40-80); PLATELET COUNT 170 10x3/uL (130-400); RBC 3.44 10x6/uL (4.00-5.40); RDW 17.6 % (11.5-14.5); WBC 11.6 10x3/uL (4.8-10.8)
[2019-11-10 06:28] LABS: ALBUMIN 2.8 g/dL (3.4-5.0); BILIRUBIN - TOTAL 0.54 mg/dL (0.2-1.3); C-REACTIVE PROTEIN 7.5 mg/dL (0.0-0.9); CALCIUM 8.7 mg/dL (8.5-10.1); CREATININE - SERUM 0.9 mg/dL (0.6-1.3); MAGNESIUM - SERUM 1.9 mg/dL (1.8-2.4); PHOSPHOROUS 2.5 mg/dL (2.5-4.9); PROTEIN - SERUM 6.6 g/dL (6.4-8.2)
[2019-11-10 06:30] LABS: INR 1.07 (0.85-1.17); PROTIME 13.8 SECONDS (11.6-15.0)
[2019-11-10 06:32] LABS: D-DIMER-QUANTITATIVE 0.7 ug/mLFEU (0.20-0.54); MCV 89.2 fL (80.0-100.0)
[2019-11-10 07:04] LABS: ANION GAP 4.1 mmol/L (8-16)
[2019-11-10 07:05] LABS: CARBON DIOXIDE 41.8 mmol/L (21.0-32.0); POTASSIUM - SERUM 2.9 mmol/L (3.5-5.1)
--- NOTE | 2019-11-10 19:00 | NUR ---
REPORT RECEIVED. PT SEDATED ON VENT. ASSESSMENT COMPLETED, SEE FLOWSHEET. PIV IN LEFT CHEST AND LEFT UPPER ARM INFUSING, SEE IV FLOWSHEET. NO ACUTE DISTRESS NOTED, WILL CONTINUE TO MONITOR.
--- NOTE | 2019-11-10 21:00 | NUR ---
PT SEDATED ON VENT, NO ACUTE DISTRESS NOTED.
--- NOTE | 2019-11-10 23:00 | NUR ---
PT SEDATED ON VENT, REASSESSMENT COMPLETED.
[2019-11-11] VITALS (24 sets, daily range): BP systolic 98–151; BP diastolic 55–90
--- NOTE | 2019-11-11 01:00 | NUR ---
PT SEDATED ON VENT. NO ACUTE DISTRESS NOTED.
--- NOTE | 2019-11-11 05:00 | NUR ---
PT SEDATED ON VENT, WILL CONTINUE TO MONITOR.
[2019-11-11 06:31] LABS: BASOPHILS 0.1 % (0-2); EOSINOPHILS 4.9 % (0-7); HEMATOCRIT 31.4 % (36.0-48.0); HEMOGLOBIN 8.7 g/dL (12-16); IMMATURE GRANULOCYTES 0.7 % (0-5); LYMPHOCYTES 10.9 % (15-50); MCH 24.2 pg (26.0-34.0); MCHC 27.7 g/dL (31.0-37.0); MCV 87.5 fL (80.0-100.0); MEAN PLATELET VOLUME 8.7 fL (7.4-10.4); MONOCYTES 8.8 % (2-11); NEUTROPHILS 74.6 % (40-80); PLATELET COUNT 157 10x3/uL (130-400); RBC 3.59 10x6/uL (4.00-5.40); RDW 17.9 % (11.5-14.5); WBC 12.1 10x3/uL (4.8-10.8)
[2019-11-11 06:48] LABS: ALBUMIN 2.8 g/dL (3.4-5.0); ANION GAP 6.9 mmol/L (8-16); BILIRUBIN - TOTAL 0.52 mg/dL (0.2-1.3); CALCIUM 8.6 mg/dL (8.5-10.1); CARBON DIOXIDE 38.4 mmol/L (21.0-32.0); CREATININE - SERUM 0.9 mg/dL (0.6-1.3); POTASSIUM - SERUM 3.3 mmol/L (3.5-5.1); PROTEIN - SERUM 6.8 g/dL (6.4-8.2)
--- NOTE | 2019-11-11 07:00 | NUR ---
ASSESSMENT COMPLETE PER FLOWSHEET. PT IN DROPLET ISOLATION.
--- NOTE | 2019-11-11 11:00 | NUR ---
REASSESSMENT COMPLETE. ISOLATION DCD. COVID NEGATIVE.
--- NOTE | 2019-11-11 14:00 | NUR ---
CONTINUE TO CPAP O2 SAT 95 PERCENT.
--- NOTE | 2019-11-11 15:00 | NUR ---
BATH AND LINEN CHANGED,. PT CONTINUE ON VENT CPAP.
--- NOTE | 2019-11-11 19:00 | NUR ---
REPORT RECEIVED. RECEIVED PATIENT IN BED. SEDATED/INTUBATED ETT/ INTACT/SECURE/PATENT CONNECTED TO [facility] VENT AT ORDERED SETTINGS. ASSESSMENT COMPLETED PER FLOW SHEET WITH NO ACUTE DISTRESS OBSERVED. MONITORS CONNECTED TO PATIENT WITH ALARMS SET. VSS
--- NOTE | 2019-11-11 19:07 | MORECARE ---
CASE MANAGEMENT DISCHARGE SUMMARY PATIENT: DOUGLAS HILLS UNIT: [id number] ADM DATE: 11/09/19 AGE: 54 : 63 SEX: F ROOM/BED: D.2303 AUTHOR: AMELIA MCGOVERN PHYSICIAN: REFERRING PHYSICIAN: CHARLIE HARO MD DATE OF SERVICE: 11/11/19 Discharge Plan Patient Name: DOUGLAS HILLS Facility: [facility]:[place] : 1965 Planned Disposition: Nursing Facility [facility] Cert Anticipated Discharge Date: Discharge Date: Expected LOS: Initial Reviewer: [email or web address] Initial Review Date: 11/09/2019 Generated: 11/11/19 8:06 pm DCPIA - Discharge Planning Initial Assessment Updated by [email or web address]: Ginny Saavedra on 11/11/19 7:05 pm * Is the patient Alert and Oriented? Yes * PCP [facility] * Pharmacy [facility] * Preadmission Environment Air Conditioning Coil Assembler Usp * Facility Name [facility] * ADLs Partial Dependent * Partial ADLs (Assistance needed) Ambulation Bathing Dressing Eating Medication Management Toileting Transfers * Other Equipment TRILOGY * List name and contact numbers for known caregivers / representatives who currently or will assist patient after discharge: ALMA ALVAREZ [facility]- [phone] * Verbal permission to speak to the caregivers and representatives has been obtained from the patient. Yes * Additional services required to return to the preadmission environment? No * Can the patient safely return to the preadmission environment? Yes * Has this patient been hospitalized within the prior 30 days at any hospital? Yes Patient Name: DOUGLAS HILLS Page 94539 at 1907 All edits/amendments must be made on the electronic document DICTATION DATE: 11/11/191905 ORNAMENT SETTER: CLEMENT 11/11/191905 RPT#: [id number] DC DATE: STATUS: [facility]M [facility] [address] [place] [address] END OF REPORT
--- NOTE | 2019-11-11 19:14 | MORECARE ---
CASE MANAGEMENT DISCHARGE SUMMARY PATIENT: DOUGLAS HILLS UNIT: [id number] ADM DATE: 11/09/19 AGE: 54 : 63 SEX: F ROOM/BED: D.2303 AUTHOR: FROILAN,DOC PHYSICIAN: REFERRING PHYSICIAN: CHARLIE HARO MD DATE OF SERVICE: 11/11/19 Discharge Plan Patient Name: DOUGLAS HILLS Facility: [facility]:[place] : 1965 Planned Disposition: Nursing Facility [facility] Cert Anticipated Discharge Date: Discharge Date: Expected LOS: Initial Reviewer: [id number] Initial Review Date: 11/09/2019 Generated: 11/11/19 8:14 pm Comments DCP- Discharge Planning Updated by [email or web address]: Ginny Saavedra on 11/11/19 6:[address] Patient Name: DOUGLAS HILLS Admission Status: ER Accout number: [id number] Admission Date: 11-09-2019 : 1965 Admission Diagnosis:ACUTE AND CHRONIC RESPIRATORY FAILURE WITH HYPOXIA Attending: CHARLIE HARO Current LOS: 2 Anticipated DC Date: Planned Disposition: Nursing Facility [facility] Cert Primary Insurance: [facility] MEDICARE SOLUTIONS Discharge Planning Comments: Patient is a resident at [facility] [phone]. Patient plans to return there upon discharge. CM will continue to follow and assist as needed with discharge planning / needs. Special Education Resource Room Teacher: Ginny Saavedra DCPIA - Discharge Planning Initial Assessment Updated by [email or web address]: Ginny Saavedra on 11/11/19 7:05 pm * Is the patient Alert and Oriented? Yes * PCP [facility] * Pharmacy [facility] * Preadmission Environment Electrical Equipment Technician Senior Living * Facility Name [facility] * ADLs Partial Dependent * Partial ADLs (Assistance needed) Ambulation Bathing Dressing Eating Medication Management Toileting Transfers * Other Equipment TRILOGY * List name and contact numbers for known caregivers / representatives who currently or will assist patient after discharge: ALMA ALVAREZ -[facility]- [phone] * Verbal permission to speak to the caregivers and representatives has been obtained from the patient. Yes * Additional services required to return to the preadmission environment? No * Can the patient safely return to the preadmission environment? Yes * Has this patient been hospitalized within the prior 30 days at any hospital? Yes Last DP export: 11/11/19 6:07 p Patient Name: DOUGLAS HILLS Page 88561 at 1913 All edits/amendments must be made on the electronic document DICTATION DATE: 11/11/191913 HOTEL CASINO FLOORPERSON: CLEMENT 11/11/191913 RPT#: [id number] DC DATE: STATUS: ADM IN [facility] [address] [place] [address] END OF REPORT
--- NOTE | 2019-11-11 21:00 | NUR ---
SEDATED/INTUBATED. ETT INTACT/SECURE/PATENT CONNECTED TO MECH VENT AT ORDERED SETTINGS. VSS
--- NOTE | 2019-11-11 23:00 | NUR ---
REASSESSMENT COMPLETED PER FLOW SHEET WITH NO ACUTE DISTRESS OBSERVED. VSS. ETT/INTACT/SECURE/PATENT CONNECTED TO MECH VENT AT ORDERED SETTINGS.
[2019-11-12] VITALS (23 sets, daily range): BP systolic 62–126; BP diastolic 46–66
--- NOTE | 2019-11-12 01:00 | NUR ---
SEDATED/INTUBATED.VSS. HOB UP 30 DEGREES
[2019-11-12 04:01] LABS: BASOPHILS 0.1 % (0-2); EOSINOPHILS 4.9 % (0-7); HEMATOCRIT 31.6 % (36.0-48.0); HEMOGLOBIN 8.9 g/dL (12-16); IMMATURE GRANULOCYTES 0.7 % (0-5); LYMPHOCYTES 11.8 % (15-50); MCH 24.4 pg (26.0-34.0); MCHC 28.2 g/dL (31.0-37.0); MCV 86.6 fL (80.0-100.0); NEUTROPHILS 74.5 % (40-80); RBC 3.65 10x6/uL (4.00-5.40); RDW 17.7 % (11.5-14.5); WBC 10.2 10x3/uL (4.8-10.8)
[2019-11-12 04:05] LABS: PLATELET COUNT 189 10x3/uL (130-400)
[2019-11-12 04:19] LABS: ALBUMIN 2.7 g/dL (3.4-5.0); ALKALINE PHOSPHATASE 80 U/L (30-120); ALT (SGPT) 9 U/L (10-68); BILIRUBIN - TOTAL 0.43 mg/dL (0.2-1.3); CALC OSMOLALITY 272 mosm/kg (275-300); CALCIUM 8.9 mg/dL (8.5-10.1); CHLORIDE - SERUM 94 mmol/L (98-107); CREATININE - SERUM 0.8 mg/dL (0.6-1.3); GLUCOSE 104 mg/dL (74-106); SODIUM 136 mmol/L (136-145); UREA NITROGEN 16 mg/dL (7-18); eGFR NON AFRICAN AMERICAN 79 mL/min (90-120)
[2019-11-12 04:21] LABS: POTASSIUM - SERUM 2.9 mmol/L (3.5-5.1)
--- NOTE | 2019-11-12 05:00 | NUR ---
SEDATED/INTUBATED. ETT INTACT/SECURE/PATENT. VSS
--- NOTE | 2019-11-12 07:00 | NUR ---
ASSESSMENT COMPLETE PER FLOWSHEET. VOICES NO CO AT TIME.
--- NOTE | 2019-11-12 09:04 | NUR ---
Nutrition follow-up: Pt intubated, awake; PSV trials today NPO Labs reviewed Wt: 339# IF unable to extubated today, will need to begin TF of Pulmocare @ 25 ml/hr with increase to goal rate of 50 ml/hr. RDN following.
--- NOTE | 2019-11-12 19:00 | NUR ---
SHIFT ASSESSMENT COMPLETED. PT CARE ASSUMED. MONITORS ON AND WORKING VITALS STABLE. PT AWAKE AND ALERT, BIPAP ON. CALL LIGHT WITHIN REACH, SEE FLOW SHEET FOR FURTHER DETAILS, WILL CONTINUE TO OBSERVE.
--- NOTE | 2019-11-12 23:00 | NUR ---
PT TURNED AND REPOSITIONED FOR COMFORT, MONITORS ON AND WORKING, VITALS STABLE, CALL LIGHT WITHIN REACH, WILL CONTINUE TO OBSERVE.
[2019-11-13] VITALS (11 sets, daily range): BP systolic 80–127; BP diastolic 46–82
[2019-11-13 03:32] LABS: BASOPHILS 0.1 % (0-2); EOSINOPHILS 5.3 % (0-7); HEMATOCRIT 32.9 % (36.0-48.0); HEMOGLOBIN 9.3 g/dL (12-16); IMMATURE GRANULOCYTES 0.6 % (0-5); LYMPHOCYTES 12.1 % (15-50); MCH 24.5 pg (26.0-34.0); MCHC 28.3 g/dL (31.0-37.0); MCV 86.6 fL (80.0-100.0); MEAN PLATELET VOLUME 8.8 fL (7.4-10.4); MONOCYTES 8.9 % (2-11); PLATELET COUNT 213 10x3/uL (130-400); RDW 17.6 % (11.5-14.5)
[2019-11-13 03:50] LABS: ALBUMIN 2.8 g/dL (3.4-5.0); ALKALINE PHOSPHATASE 76 U/L (30-120); ALT (SGPT) 11 U/L (10-68); BILIRUBIN - TOTAL 0.44 mg/dL (0.2-1.3); CALC OSMOLALITY 282 mosm/kg (275-300); CARBON DIOXIDE 38.8 mmol/L (21.0-32.0); CHLORIDE - SERUM 95 mmol/L (98-107); CREATININE - SERUM 0.8 mg/dL (0.6-1.3); GLUCOSE 130 mg/dL (74-106); PROTEIN - SERUM 7.3 g/dL (6.4-8.2); SODIUM 139 mmol/L (136-145); UREA NITROGEN 20 mg/dL (7-18); eGFR NON AFRICAN AMERICAN 79 mL/min (90-120)
[2019-11-13 03:51] LABS: POTASSIUM - SERUM 3.1 mmol/L (3.5-5.1)
--- NOTE | 2019-11-13 07:15 | NUR ---
REPORT RECIEVED, SHIFT ASSESSMENT COMPLETE, PT IS ALERT AND ORIENTED, SITTING UP IN BED, ON 6L HFNC WITH 97% O2 SAT. ALL PPP, VSS, CALL LIGHT IN REACH
--- NOTE | 2019-11-13 13:56 | NUR ---
HESS DCD AT THIS TIME, PT TRANSFERRED TO FLOOR
--- NOTE | 2019-11-13 14:06 | NUR ---
PATIENT TO ROOM AT THIS TIME. IV X 2 CDI. NO COMPLAINTS OR SIGNS OF DISTRESS. SAID SHE IS WAITING FOR DR. HEREDIA TO REORDER HER PAIN PILL. O2 ON AT 6L. VS STABLE. CALL LIGHT WITHIN REACH.
--- NOTE | 2019-11-13 15:45 | NUR ---
PURE WIC PLACED ON PATIENT BY TUYERE FITTER AT THIS TIME.
--- NOTE | 2019-11-13 18:57 | MORECARE ---
CASE MANAGEMENT DISCHARGE SUMMARY PATIENT: DOUGLAS HILLS UNIT: [id number] ADM DATE: 11/09/19 AGE: 54 : 63 SEX: F ROOM/BED: D.2222 AUTHOR: FORILAN,DOC PHYSICIAN: REFERRING PHYSICIAN: CHARLIE HARO MD DATE OF SERVICE: 11/13/19 Discharge Plan Patient Name: DOUGLAS HILLS Facility: [facility]:[place] : 1965 Planned Disposition: Nursing Facility [facility] Cert Anticipated Discharge Date: Discharge Date: Expected LOS: Initial Reviewer: [id number] Initial Review Date: 11/09/2019 Generated: 11/13/19 7:56 pm DCP- Discharge Planning Updated by [email or web address]: Ginny Saavedra on 11/11/19 6:[address] Patient Name: DOUGLAS HILLS Admission Status: ER Accout number: [id number] Admission Date: 11-09-2019 : 1965 Admission Diagnosis:ACUTE AND CHRONIC RESPIRATORY FAILURE WITH HYPOXIA Attending: CHARLIE HARO Current LOS: 2 Anticipated DC Date: Planned Disposition: Nursing Facility [facility] Cert Primary Insurance: [facility] MEDICARE SOLUTIONS Discharge Planning Comments: Patient is a resident at [facility] [phone]. Patient plans to return there upon discharge. CM will continue to follow and assist as needed with discharge planning / needs. Metalworker: Ginny Saavedra DCPIA - Discharge Planning Initial Assessment Updated by [id number]: Ginny Saavedra on 11/11/19 7:05 pm * Is the patient Alert and Oriented? Yes * PCP [facility] * Pharmacy [facility] * Preadmission Environment Detention Care Home * Facility Name [facility] * ADLs Partial Dependent * Partial ADLs (Assistance needed) Ambulation Bathing Dressing Eating Medication Management Toileting Transfers * Other Equipment TRILOGY * List name and contact numbers for known caregivers / representatives who currently or will assist patient after discharge: ALMA ALVAREZ -[facility]- [phone] * Verbal permission to speak to the caregivers and representatives has been obtained from the patient. Yes * Additional services required to return to the preadmission environment? No * Can the patient safely return to the preadmission environment? Yes * Has this patient been hospitalized within the prior 30 days at any hospital? Yes External Providers External Provider: [facility] Next Contact Date: Service Request Date: Service Type: Resolution: Reviewer: Comments: Coverage Notice Reviewer: [email or web address] Bayron Saavedra Notice Issued Date-Time: 11/13/2019 12:00 Notice Type: Patient Choice Letter Notice Delivered To: Patient Relationship to Patient: Self Director Geothermal Operations Name: Delivery Method: HAND - Hand Delivered Adrianne Days: Prior Verbal Notification: Recipient Understood Notice: Yes Recipient Signature: Yes Med Rec Note Co-signed by Attending: Coverage Notice Comment: [facility] Last DP export: 11/11/19 6:14 p Patient Name: DOUGLAS HILLS Page 50695 at 1857 All edits/amendments must be made on the electronic document DICTATION DATE: 11/13/191855 BURR BENCH HAND: CLEMENT 11/13/191855 RPT#: [id number] DC DATE: STATUS: ADM IN [facility] [address] [place] [address] END OF REPORT
--- NOTE | 2019-11-13 19:03 | MORECARE ---
CASE MANAGEMENT DISCHARGE SUMMARY PATIENT: DOUGLAS HILLS UNIT: [id number] ADM DATE: 11/09/19 AGE: 54 : 63 SEX: F ROOM/BED: D.2222 AUTHOR: FROILAN,DOC PHYSICIAN: REFERRING PHYSICIAN: CHARLIE HARO MD DATE OF SERVICE: 11/13/19 Discharge Plan Patient Name: DOUGLAS HILLS Facility: [facility]:[place] : 1965 Planned Disposition: Nursing Facility [facility] Cert Anticipated Discharge Date: Discharge Date: Expected LOS: Initial Reviewer: [email or web address] Initial Review Date: 11/09/2019 Generated: 11/13/19 8:03 pm Comments DCP- Discharge Planning Updated by [email or web address]: Ginny Saavedra on 11/13/19 5:[address] CM [facility]ATES TO [facility] DCP- Discharge Planning Updated by [email or web address]: Ginny Saavedra on 11/11/19 6:[address] Patient Name: DOUGLAS HILLS Admission Status: ER Accout number: [id number] Admission Date: 11-09-2019 : 1965 Admission Diagnosis:ACUTE AND CHRONIC RESPIRATORY FAILURE WITH HYPOXIA Attending: CHARLIE HARO Current LOS: 2 Anticipated DC Date: Planned Disposition: Nursing Facility [facility] Cert Primary Insurance: [facility] MEDICARE SOLUTIONS Discharge Planning Comments: Patient is a resident at [facility] [phone]. Patient plans to return there upon discharge. CM will continue to follow and assist as needed with discharge planning / needs. Member Certification Manager: Ginny Saavedra DCPIA - Discharge Planning Initial Assessment Updated by [email or web address]: Ginny Saavedra on 11/11/19 7:05 pm * Is the patient Alert and Oriented? Yes * PCP [facility] * Pharmacy [facility] * Preadmission Environment Television Specialist Halfway * Facility Name [facility] * ADLs Partial Dependent * Partial ADLs (Assistance needed) Ambulation Bathing Dressing Eating Medication Management Toileting Transfers * Other Equipment TRILOGY * List name and contact numbers for known caregivers / representatives who currently or will assist patient after discharge: ALMA VEGASTON [facility] [phone] * Verbal permission to speak to the caregivers and representatives has been obtained from the patient. Yes * Additional services required to return to the preadmission environment? No * Can the patient safely return to the preadmission environment? Yes * Has this patient been hospitalized within the prior 30 days at any hospital? Yes Coverage Notice Reviewer: [email or web address] Bayron Saavedra Notice Issued Date-Time: 11/13/2019 12:00 Notice Type: Patient Choice Letter Notice Delivered To: Patient Relationship to Patient: Self Commissary Worker Name: Delivery Method: HAND - Hand Delivered Adrianne Days: Prior Verbal Notification: Recipient Understood Notice: Yes Recipient Signature: Yes Med Rec Note Co-signed by Attending: Coverage Notice Comment: [facility] Last DP export: 11/13/19 5:57 p Patient Name: DOUGLAS HILSL Page 37906 at 1903 All edits/amendments must be made on the electronic document DICTATION DATE: 11/13/191902 WARD ATTENDANT: CLEMENT 11/13/191902 RPT#: [id number] DC DATE: STATUS: ADM IN [facility] [address] [place] [address] END OF REPORT
[2019-11-14] VITALS: BP 156/79
--- NOTE | 2019-11-14 02:00 | NUR ---
PT RESTING IN BED. EYES CLOSED. NO SIGNS OF DISTRESS. BREATHING EVEN AND UNLABORED. BIPAP ON. IV SITE LT SHOULDER DRESSING CLEAN DRY AND INTACT. NO SIGNS OF INFECTION OR INFULTRATION. BILATERAL ARM BRUISES. BOWEL SOUNDS ACTIVE. LUNG SOUNDS DIMINISHED. WILL CONTINUE PLAN OF CARE. CALL LIGHT IN REACH. BED LOWERED AND LOCKED. BED RAILS UPX2.
--- NOTE | 2019-11-14 02:44 | NUR ---
I have reviewed this patient and I concur with the Shift Assessment completed by the Licensed Practical Nurse today this shift.
[2019-11-14 04:00] VITALS: BP 131/62
--- NOTE | 2019-11-14 04:00 | NUR ---
PT IV INFULTRATED. ATTEMPTED TO START IV X4. DID NOT GET AN IV STARTED. WILL FALLOW UP.
[2019-11-14 04:29] LABS: BASOPHILS 0.1 % (0-2); EOSINOPHILS 5.8 % (0-7); HEMATOCRIT 36.6 % (36.0-48.0); IMMATURE GRANULOCYTES 0.7 % (0-5); LYMPHOCYTES 11.9 % (15-50); MCH 24.2 pg (26.0-34.0); MCHC 27.3 g/dL (31.0-37.0); MCV 88.4 fL (80.0-100.0); MEAN PLATELET VOLUME 8.9 fL (7.4-10.4); MONOCYTES 11.1 % (2-11); NEUTROPHILS 70.4 % (40-80); PLATELET COUNT 253 10x3/uL (130-400); RBC 4.14 10x6/uL (4.00-5.40); RDW 17.4 % (11.5-14.5); WBC 9.8 10x3/uL (4.8-10.8)
[2019-11-14 04:40] LABS: ANION GAP 6.3 mmol/L (8-16); BILIRUBIN - TOTAL 0.31 mg/dL (0.2-1.3); CALCIUM 8.9 mg/dL (8.5-10.1); CARBON DIOXIDE 39.9 mmol/L (21.0-32.0); POTASSIUM - SERUM 3.2 mmol/L (3.5-5.1); PROTEIN - SERUM 7.7 g/dL (6.4-8.2)
[2019-11-14 04:42] LABS: CREATININE - SERUM 1.1 mg/dL (0.6-1.3)
[2019-11-14 09:45] VITALS: BP 99/48
[2019-11-14] MEDS ORDERED: CLINDAMYCIN HC300 MG PO (12:13)
[2019-11-14 13:53] VITALS: BP 105/48
--- NOTE | 2019-11-14 14:09 | NUR ---
SPOKE WITH Raheem ESTEBAN APN FOR DR HARO BECAUSE PATIENT WAS VOMITING. HAD PREVIOUSLY GIVEN ZOFRAN. GOT ONE TIME ORDER FOR PHENERGAN 12.5 MG PO.
--- NOTE | 2019-11-14 14:12 | MORECARE ---
CASE MANAGEMENT DISCHARGE SUMMARY PATIENT: DOUGLAS HILLS UNIT: [id number] ADM DATE: 11/09/19 AGE: 54 : 63 SEX: F ROOM/BED: D.2222 AUTHOR: FROILAN,DOC PHYSICIAN: REFERRING PHYSICIAN: CHARLIE HARO MD DATE OF SERVICE: 11/14/19 Discharge Plan Patient Name: DOUGLAS HILLS Facility: [facility]:[place] : 1965 Planned Disposition: Nursing Facility [facility] Cert Anticipated Discharge Date: Discharge Date: Expected LOS: Initial Reviewer: [id number] Initial Review Date: 11/09/2019 Generated: 11/14/19 3:12 pm Comments DCP- Discharge Planning Updated by [id number]: Dori Carlisleken on 11/14/19 1:[address] IMM SERVED AND EXPLAINED, SHE WAS TO DISCHARGE BACK TO THE [facility] BUT DR HEREDIA DID NOT WANT HER DISCHARGED PER ZAC (HER NURSE) DCP- Discharge Planning Updated by [id number]: Ginny Saavedra on 11/13/19 5:[address] CM FAXED UPDATES TO THE [facility] DCP- Discharge Planning Updated by [id number]: Ginny Saavedra on 11/11/19 6:[address] Patient Name: DOUGLAS HILLS Admission Status: ER Accout number: [id number] Admission Date: 11-09-2019 : 1965 Admission Diagnosis:ACUTE AND CHRONIC RESPIRATORY FAILURE WITH HYPOXIA Attending: CHARLIE HARO Current LOS: 2 Anticipated DC Date: Planned Disposition: Nursing Facility [facility] Cert Primary Insurance: [facility] MEDICARE SOLUTIONS Discharge Planning Comments: Patient is a resident at The [facility] [phone]. Patient plans to return there upon discharge. CM will continue to follow and assist as needed with discharge planning / needs. Vehicle Assembler: Ginny Saavedra DCPIA - Discharge Planning Initial Assessment Updated by [id number]: Ginny Saavedra on 11/11/19 7:05 pm * Is the patient Alert and Oriented? Yes * PCP [facility] * Pharmacy [facility] * Preadmission Environment [facility] * Facility Name [facility] * ADLs Partial Dependent * Partial ADLs (Assistance needed) Ambulation Bathing Dressing Eating Medication Management Toileting Transfers * Other Equipment TRILOGY * List name and contact numbers for known caregivers / representatives who currently or will assist patient after discharge: ALMA ALVAREZ -[facility]- [phone] * Verbal permission to speak to the caregivers and representatives has been obtained from the patient. Yes * Additional services required to return to the preadmission environment? No * Can the patient safely return to the preadmission environment? Yes * Has this patient been hospitalized within the prior 30 days at any hospital? Yes Coverage Notice Reviewer: [email or web address] Bayron Saavedra Notice Issued Date-Time: 11/13/2019 12:00 Notice Type: Patient Choice Letter Notice Delivered To: Patient Relationship to Patient: Self Twisting Frame Changer Name: Delivery Method: HAND - Hand Delivered Adrianne Days: Prior Verbal Notification: Recipient Understood Notice: Yes Recipient Signature: Yes Med Rec Note Co-signed by Attending: Coverage Notice Comment: JESI ELDER Reviewer: [id number] Bayron Young Notice Issued Date-Time: 11/14/2019 14:00 Notice Type: IM Discharge Notice Notice Delivered To: Patient Relationship to Patient: Twisting Frame Changer Name: Delivery Method: HAND - Hand Delivered Adrianne Days: Prior Verbal Notification: Recipient Understood Notice: Yes Recipient Signature: Yes Med Rec Note Co-signed by Attending: Coverage Notice Comment: Last DP export: 11/13/19 6:03 p Patient Name: DOUGLAS HILLS Page 11484 at 1412 All edits/amendments must be made on the electronic document DICTATION DATE: 11/14/191411 ADJUNCT HISTORY INSTRUCTOR: CLEMENT 11/14/19 141 RPT#: [id number] DC DATE: STATUS: ADM IN [facility] [address] [place] [address] END OF REPORT
--- NOTE | 2019-11-14 15:20 | NUR ---
OT NOTE: PT COMPLETED FACE HYGIENE WITH SETUP. PT REQUIRED MAX A FOR POSITIONING . PT HAD C/O OF NAUSEA. [phone] THANK YOU,CRISPIN UMANA
--- NOTE | 2019-11-14 15:28 | NUR ---
PATIENT LAYING ON RIGHT SIDE. SPOKE WITH DR HARO ABOUT PATIENTS N/V AND RECIEVED ORDER FOR 25 MG PO Q 6 HR PRN. CL IN REACH. WCTM
[2019-11-14 18:10] VITALS: BP 117/37
--- NOTE | 2019-11-14 19:45 | NUR ---
PATIENT RESTING WITH EYES CLOSED AND HFC ON WITH UNLABORED RESPIRATIONS. PATIENT AROUSES TO PHYSICAL STIMULI. DENIES NEEDS AT THIS TIME. LEFT UPPER ARM IV IS PATENT AND INFUSING NS. DENIES NEEDS AT THIS TIME. CALL LIGHT CLOSE. CPOC.
[2019-11-14 20:00] VITALS: BP 102/50
[2019-11-15] VITALS: BP 107/50
--- NOTE | 2019-11-15 00:30 | NUR ---
I have reviewed this patient and I concur with the Shift Assessment completed by the Licensed Practical Nurse today this shift.
[2019-11-15 04:00] VITALS: BP 94/51
[2019-11-15 06:00] LABS: BASOPHILS 0.1 % (0-2); HEMATOCRIT 35.9 % (36.0-48.0); HEMOGLOBIN 9.8 g/dL (12-16); IMMATURE GRANULOCYTES 0.5 % (0-5); LYMPHOCYTES 14.7 % (15-50); MCH 23.9 pg (26.0-34.0); MCHC 27.3 g/dL (31.0-37.0); MCV 87.6 fL (80.0-100.0); MEAN PLATELET VOLUME 9.1 fL (7.4-10.4); MONOCYTES 9.7 % (2-11); PLATELET COUNT 283 10x3/uL (130-400); RDW 16.9 % (11.5-14.5); WBC 9.4 10x3/uL (4.8-10.8)
[2019-11-15 06:26] LABS: BILIRUBIN - TOTAL 0.31 mg/dL (0.2-1.3); CALCIUM 8.6 mg/dL (8.5-10.1); CREATININE - SERUM 0.9 mg/dL (0.6-1.3); POTASSIUM - SERUM 3.3 mmol/L (3.5-5.1); PROTEIN - SERUM 6.7 g/dL (6.4-8.2)
[2019-11-15 06:29] LABS: ANION GAP 10.4 mmol/L (8-16); CARBON DIOXIDE 39.9 mmol/L (21.0-32.0)
--- NOTE | 2019-11-15 08:00 | NUR ---
ASSESSMENT PER FLOW SHEET. PATIENT IS WITHOUT DISTRESS.MONITOR FOR NEEDS.
[2019-11-15 08:02] VITALS: BP 111/44
--- NOTE | 2019-11-15 10:21 | MORECARE ---
CASE MANAGEMENT DISCHARGE SUMMARY PATIENT: DOUGLAS HILLS UNIT: [id number] ADM DATE: 11/09/19 AGE: 54 : 63 SEX: F ROOM/BED: D.2222 AUTHOR: FROILAN,DOC PHYSICIAN: REFERRING PHYSICIAN: CHARLIE HARO MD DATE OF SERVICE: 11/15/19 Discharge Plan Patient Name: DOUGLAS HILLS Facility: [facility]:[place] : 1965 Planned Disposition: Nursing Facility [facility] Cert Anticipated Discharge Date: Discharge Date: Expected LOS: Initial Reviewer: [email or web address] Initial Review Date: 11/09/2019 Generated: 11/15/19 11:20 am Comments DCP- Discharge Planning Updated by [id number]: Dori Young on 11/15/19 9:[address] PATIENT WILL BE DISCHARGING BACK TO THE [facility] WHERE SHE IS A CUSTODIAL RESIDENT THE [facility] WILL PROVIDE TRANSPORTATION CM TO ASSIST NEEDED DCP- Discharge Planning Updated by [id number]: Dori Young on 11/14/19 1:[address] IMM SERVED AND EXPLAINED, SHE WAS TO DISCHARGE BACK TO THE [facility] BUT DR HEREDIA DID NOT WANT HER DISCHARGED PER ZAC (HER NURSE) DCP- Discharge Planning Updated by [email or web address]: Ginny Saavedra on 11/13/19 5:[address] CM FAXED UPDATES TO THE [facility] DCP- Discharge Planning Updated by [id number]: Ginny Saavedra on 11/11/19 6:[address] Patient Name: DOUGLAS HILLS Admission Status: ER Accout number: [id number] Admission Date: 11-09-2019 : 1965 Admission Diagnosis:ACUTE AND CHRONIC RESPIRATORY FAILURE WITH HYPOXIA Attending: CHARLIE HARO Current LOS: 2 Anticipated DC Date: Planned Disposition: Nursing Facility [facility] Cert Primary Insurance: [facility] MEDICARE SOLUTIONS Discharge Planning Comments: Patient is a resident at The [facility] [phone]. Patient plans to return there upon discharge. CM will continue to follow and assist as needed with discharge planning / needs. Life Skills Educator: Ginny Saavedra DCPIA - Discharge Planning Initial Assessment Updated by [id number]: Ginny Saavedra on 11/11/19 7:05 pm * Is the patient Alert and Oriented? Yes * PCP [facility] * Pharmacy [facility] * Preadmission Environment Disbursing Agent Custodial * Facility Name [facility] * ADLs Partial Dependent * Partial ADLs (Assistance needed) Ambulation Bathing Dressing Eating Medication Management Toileting Transfers * Other Equipment TRILOGY * List name and contact numbers for known caregivers / representatives who currently or will assist patient after discharge: ALMA ALVAREZ [facility] [phone] * Verbal permission to speak to the caregivers and representatives has been obtained from the patient. Yes * Additional services required to return to the preadmission environment? No * Can the patient safely return to the preadmission environment? Yes * Has this patient been hospitalized within the prior 30 days at any hospital? Yes Coverage Notice Reviewer: [id number] - Ginny Keri Notice Issued Date-Time: 11/13/2019 12:00 Notice Type: Patient Choice Letter Notice Delivered To: Patient Relationship to Patient: Self Furnace Checker Name: Delivery Method: HAND - Hand Delivered Adrianne Days: Prior Verbal Notification: Recipient Understood Notice: Yes Recipient Signature: Yes Med Rec Note Co-signed by Attending: Coverage Notice Comment: [facility] Reviewer: [id number] - Dori Young Notice Issued Date-Time: 11/14/2019 14:00 Notice Type: IM Discharge Notice Notice Delivered To: Patient Relationship to Patient: Furnace Checker Name: Delivery Method: HAND - Hand Delivered Adrianne Days: Prior Verbal Notification: Recipient Understood Notice: Yes Recipient Signature: Yes Med Rec Note Co-signed by Attending: Coverage Notice Comment: Last DP export: 11/14/19 1:12 p Patient Name: DOUGLAS HILLS Page 31338 at 1021 All edits/amendments must be made on the electronic document DICTATION DATE: 11/15/19 1020 MANAGER PLUMBING: CLEMENT 11/15/19 1020 RPT#: [id number] DC DATE: STATUS: ADM IN [facility] [address] [place] [address] END OF REPORT
--- NOTE | 2019-11-15 11:04 | NUR ---
TRIED TO CALL [facility] TO GIVE REPORT,NO ANSWER [phone]
--- NOTE | 2019-11-15 11:11 | NUR ---
OT NOTE: PT PERFORMED VERY WELL TODAY. AMB TO AND FROM BATHROOM WITH WALKER AND MIN ASSIST; PT WAS ALSO ABLE TO PERFORM ALL TOILET HYGIENE WITHOUT ASSIST; SIMPLE GROOMING WITH SET UP; ABLE TO NIKITA GOWN WITH SET UP; MAX ASSIST FOR DOFFING AND DONNING SOCKS. PERFORMED STANDING BALANCE TASKS WITH MIN ASSIST. ABLE TO PERFORM BED MOB WITHOUT ASSIST AND ALSO ABLE TO SCOOT UP IN BED WITH ASSIST OF HAND RAILS ONLY. BERNADINE HILL, OTR/L [phone]
--- NOTE | 2019-11-15 11:20 | NUR ---
ATTEMPTED TO CALL REPORT TO [facility] AGAIN. NO ONE IS ANSWERING PHONE.
--- NOTE | 2019-11-15 11:58 | NUR ---
CALL BACK FROM [facility], SPOKE TO ELDON AND GAVE REPORT.SHE WILL SEND [facility] TO PICK PATIENT UP FOR TRANSPORT BACK TO [facility].
--- NOTE | 2019-11-15 14:15 | NUR ---
IV DCD WITH CATH TIP INTACT. DISCHARGE INSTRUCTIONS,STATES UNDERSTANDING. LEFT UNIT VIA WHEELCHAIR FOR TRANSPORT TO THE [facility]
--- NOTE | 2019-11-16 08:04 | MORECARE ---
CASE MANAGEMENT DISCHARGE SUMMARY PATIENT: DOUGLAS HILLS UNIT: [id number] ADM DATE: 11/09/19 AGE: 54 : 63 SEX: F ROOM/BED: D.2222 AUTHOR: FROILAN,DOC PHYSICIAN: REFERRING PHYSICIAN: CHARLIE HARO MD DATE OF SERVICE: 11/16/19 Discharge Plan Patient Name: DOUGLAS HILLS Facility: [facility]:[place] : 1965 Planned Disposition: Nursing Facility [facility] Cert Anticipated Discharge Date: Discharge Date: 11/15/2019 Expected LOS: 0 Initial Reviewer: [email or web address] Initial Review Date: 11/09/2019 Generated: 11/16/19 9:03 am Comments DCP- Discharge Planning Updated by [email or web address]: Dori Young on 11/15/19 9:[address] PATIENT WILL BE DISCHARGING BACK TO THE [facility] WHERE SHE IS A [facility] RESIDENT THE [facility] WILL PROVIDE TRANSPORTATION CM TO ASSIST NEEDED DCP- Discharge Planning Updated by [id number]: Dori Young on 11/14/19 1:[address] IMM SERVED AND EXPLAINED, SHE WAS TO DISCHARGE BACK TO THE [facility] BUT DR HEREDIA DID NOT WANT HER DISCHARGED PER ZAC (HER NURSE) DCP- Discharge Planning Updated by [id number]: Ginny Saavedra on 11/13/19 5:[address] CM FAXED UPDATES TO THE [facility] DCP- Discharge Planning Updated by [id number]: Ginny Saavedra on 11/11/19 6:[address] Patient Name: DOUGLAS HILLS Admission Status: ER Accout number: [id number] Admission Date: 11-09-2019 : 1965 Admission Diagnosis:ACUTE AND CHRONIC RESPIRATORY FAILURE WITH HYPOXIA Attending: CHARLIE HARO Current LOS: 2 Anticipated DC Date: Planned Disposition: Nursing Facility [facility] Cert Primary Insurance: [facility] MEDICARE SOLUTIONS Discharge Planning Comments: Patient is a resident at The [facility] [phone]. Patient plans to return there upon discharge. CM will continue to follow and assist as needed with discharge planning / needs. Animal Hospital Clerk: Ginny Saavedra DCPIA - Discharge Planning Initial Assessment Updated by [email or web address]: Ginny Saavedra on 11/11/19 7:05 pm * Is the patient Alert and Oriented? Yes * PCP [facility] * Pharmacy [facility] * Preadmission Environment [facility] * Facility Name [facility] * ADLs Partial Dependent * Partial ADLs (Assistance needed) Ambulation Bathing Dressing Eating Medication Management Toileting Transfers * Other Equipment TRILOGY * List name and contact numbers for known caregivers / representatives who currently or will assist patient after discharge: ALMA ALVAREZ -[facility]- [phone] * Verbal permission to speak to the caregivers and representatives has been obtained from the patient. Yes * Additional services required to return to the preadmission environment? No * Can the patient safely return to the preadmission environment? Yes * Has this patient been hospitalized within the prior 30 days at any hospital? Yes Coverage Notice Reviewer: [id number] - Ginny Saavedra Notice Issued Date-Time: 11/13/2019 12:00 Notice Type: Patient Choice Letter Notice Delivered To: Patient Relationship to Patient: Self Diamond Broker Name: Delivery Method: HAND - Hand Delivered Adrianne Days: Prior Verbal Notification: Recipient Understood Notice: Yes Recipient Signature: Yes Med Rec Note Co-signed by Attending: Coverage Notice Comment: [facility] Reviewer: [id number] Bayron Young Notice Issued Date-Time: 11/14/2019 14:00 Notice Type: IM Discharge Notice Notice Delivered To: Patient Relationship to Patient: Diamond Broker Name: Delivery Method: HAND - Hand Delivered Adrianne Days: Prior Verbal Notification: Recipient Understood Notice: Yes Recipient Signature: Yes Med Rec Note Co-signed by Attending: Coverage Notice Comment: Last DP export: 11/15/19 9:21 a Patient Name: DOUGLAS HILLS Page 06930 at 0804 All edits/amendments must be made on the electronic document DICTATION DATE: 11/16/19802 DONOR SERVICES SPECIALIST: CLEMENT 11/16/19802 RPT#: [id number] DC DATE:11/15/19 STATUS: DIS IN [facility] [address] [place] [address] END OF REPORT
== END 2019-11-15 14:15 | DRG 193 ==
LOC: D.ER 08:30 → D.ICU 11:20 → D.MS 11:20 → D.ICU 11-11 10:45 → D.MS 11-13 13:56
PROVIDERS: Family Medicine; ADMIT Internal Medicine Nephrology; ATTEND Internal Medicine Nephrology
DX: J18.9 Pneumonia, unspecified organism (principal); J96.21 Acute and chronic respiratory failure with hypoxia; I50.33 Acute on chronic diastolic (congestive) heart failure; G93.41 Metabolic encephalopathy; J96.22 Acute and chronic respiratory failure with hypercapnia; Z68.44 Body mass index [BMI] 60.0-69.9, adult; J44.1 Chronic obstructive pulmonary disease with (acute) exacerbation; J44.0 Chronic obstructive pulmonary disease with (acute) lower respiratory infection; E66.2 Morbid (severe) obesity with alveolar hypoventilation; R04.2 Hemoptysis; J98.11 Atelectasis; I11.0 Hypertensive heart disease with heart failure; I25.10 Atherosclerotic heart disease of native coronary artery without angina pectoris; E11.65 Type 2 diabetes mellitus with hyperglycemia; E03.9 Hypothyroidism, unspecified; E78.5 Hyperlipidemia, unspecified; K21.9 Gastro-esophageal reflux disease without esophagitis; K59.00 Constipation, unspecified; J30.9 Allergic rhinitis, unspecified; E87.5 Hyperkalemia; I27.20 Pulmonary hypertension, unspecified; D50.9 Iron deficiency anemia, unspecified

== ENCOUNTER 2020-01-18 20:20 | Inpatient (IN) | payer MEDICARE, MEDICAID ==
[~2020-01-18] VITALS: Ht 152.4 cm; Wt 163.6 kg
[~2020-01-18 20:20] MED LIST changes: +CLINDAMYCIN HC300 MG PO
--- NOTE | 2020-01-18 20:33 | NUR ---
RT AT BEDSIDE.
[2020-01-18 20:52] LABS: BASOPHILS 0.2 % (0-2); EOSINOPHILS 2.2 % (0-7); HEMATOCRIT 33.9 % (36.0-48.0); HEMOGLOBIN 9.4 g/dL (12-16); IMMATURE GRANULOCYTES 1.5 % (0-5); LYMPHOCYTES 9.5 % (15-50); MCH 25.1 pg (26.0-34.0); MCHC 27.7 g/dL (31.0-37.0); MCV 90.6 fL (80.0-100.0); MEAN PLATELET VOLUME 8.8 fL (7.4-10.4); MONOCYTES 8.3 % (2-11); NEUTROPHILS 78.3 % (40-80); RBC 3.74 10x6/uL (4.00-5.40); RDW 15.6 % (11.5-14.5); WBC 13.9 10x3/uL (4.8-10.8)
[2020-01-18 21:02] LABS: PLATELET COUNT 205 10x3/uL (130-400)
[2020-01-18 21:06] LABS: APTT 28.4 SECONDS (22.8-39.4); INR 0.97 (0.85-1.17); PROTIME 12.8 SECONDS (11.6-15.0)
[2020-01-18 21:07] LABS: CALC OSMOLALITY 288 mosm/kg (275-300); CALCIUM 8.6 mg/dL (8.5-10.1); CHLORIDE - SERUM 98 mmol/L (98-107); CREATININE - SERUM 1.2 mg/dL (0.6-1.3); GLUCOSE 188 mg/dL (74-106); SODIUM 140 mmol/L (136-145); UREA NITROGEN 26 mg/dL (7-18); eGFR NON AFRICAN AMERICAN 49 mL/min (90-120)
[2020-01-18 21:24] LABS: ALBUMIN 3.1 g/dL (3.4-5.0); ALKALINE PHOSPHATASE 95 U/L (30-120); ALT (SGPT) 24 U/L (10-68); BILIRUBIN - TOTAL 0.33 mg/dL (0.2-1.3); CKMB 1.6 U/L (0.0-3.6); CREATINE KINASE 24 UL (21-215); PRO BNP 339 pg/mL (0-125); PROTEIN - SERUM 7.1 g/dL (6.4-8.2); TROPONIN-I < 0.017 ng/mL (0.000-0.060)
[2020-01-18 21:26] LABS: CARBON DIOXIDE 49.5 mmol/L (21.0-32.0)
[2020-01-19] VITALS (22 sets, daily range): BP systolic 97–149; BP diastolic 40–567; Ht 152.4 cm; Wt 163.6 kg
[2020-01-19 05:03] LABS: BASOPHILS 0.1 % (0-2); EOSINOPHILS 0.5 % (0-7); HEMATOCRIT 35.5 % (36.0-48.0); HEMOGLOBIN 9.6 g/dL (12-16); IMMATURE GRANULOCYTES 1.8 % (0-5); MCH 24.8 pg (26.0-34.0); MCV 91.7 fL (80.0-100.0); MEAN PLATELET VOLUME 8.7 fL (7.4-10.4); MONOCYTES 2.2 % (2-11); NEUTROPHILS 89.4 % (40-80); PLATELET COUNT 196 10x3/uL (130-400); RBC 3.87 10x6/uL (4.00-5.40); RDW 15.6 % (11.5-14.5); WBC 12.5 10x3/uL (4.8-10.8)
[2020-01-19 05:29] LABS: ALBUMIN 3.1 g/dL (3.4-5.0); ANION GAP 0.2 mmol/L (8-16); BILIRUBIN - TOTAL 0.36 mg/dL (0.2-1.3); CREATININE - SERUM 1.1 mg/dL (0.6-1.3); POTASSIUM - SERUM 3.8 mmol/L (3.5-5.1); PROTEIN - SERUM 7.4 g/dL (6.4-8.2)
[2020-01-19 05:47] LABS: CARBON DIOXIDE 48.6 mmol/L (21.0-32.0)
--- NOTE | 2020-01-19 07:00 | NUR ---
PT REPORT RECEIVED FROM LABOR AND DELIVERY NURSE NURSE. NO ACUTE SIGNS OF DISTRESS NOTED. PT INCONTINENT AND CLEANED UP. SHIFT ASSESSMENT COMPLETED. WILL CONTINUE TO MONITOR
--- NOTE | 2020-01-19 10:00 | NUR ---
DR HEREDIA AT BEDSIDE. NEW ORDER RECEIVED TO START HESS AND GIVE ONE TIME BUMEX. WILL CONTINUE TO MONITOR. HESS STARTED PER GARY FRY.
--- NOTE | 2020-01-19 12:48 | NUR ---
DR. HEREDIA HERE ORDER ABG TO BE DONE. PATIENT OPENS EYES TO NAME, BUT DID NOT OBEY COMMANDS. GRIMACES MOVES ALL EXTREMITITES. ON BIPAP AT 50% 20/8. HESS CATH PATENT DRAINING CLEAR PALE YELLOW URINE. MONITOR SR-ST. NO DISTRESS NOTED. IV LEFT SHOULDER WITHOUT REDNESS OR SWELLING. SLINE LOCKED
--- NOTE | 2020-01-19 14:16 | NUR ---
WAKING UP AT TIMES. OBEYING COMMANDS. REORIENTATED AND REMINDED TO KEEP BIPAP MASK ON.
--- NOTE | 2020-01-19 18:47 | NUR ---
LARGE SOFT BROWN STOOL. INCONT OF STOOL. PERICARE AND HESS CATH CARE DONE. NO SKIN BREAKDOWN NOTED. PATIENT ASSIST WITH TURNING SELF. TOLERATED WELL ALERT. STATES SHE IS MORE ALERT NOW AND FEELING BETTER
--- NOTE | 2020-01-19 19:08 | MORECARE ---
CASE MANAGEMENT DISCHARGE SUMMARY PATIENT: DOUGLAS HILLS UNIT: [id number] ADM DATE: 01/18/20 AGE: 54 : 63 SEX: F ROOM/BED: D.2312 AUTHOR: AMELIA MCGOVERN PHYSICIAN: REFERRING PHYSICIAN: COLLETTE LAW MD DATE OF SERVICE: 01/19/20 Discharge Plan Patient Name: DOUGLAS HILLS Facility: [facility]:[place] : 1965 Planned Disposition: Nursing Facility [facility] Cert Anticipated Discharge Date: Discharge Date: Expected LOS: Initial Reviewer: [id number] Initial Review Date: 01/19/2020 Generated: 01/19/20 8:07 pm Patient Name: DOUGLAS HILLS Page 68908 at 1908 All edits/amendments must be made on the electronic document DICTATION DATE: 01/19/201906 [employer]SP[employer]: CLEMENT 01/19/201906 RPT#: [id number] DC DATE: STATUS: ADM IN [facility] [address] [place] [address] END OF REPORT
--- NOTE | 2020-01-19 19:14 | MORECARE ---
CASE MANAGEMENT DISCHARGE SUMMARY PATIENT: DOUGLAS HILLS UNIT: [id number] ADM DATE: 01/18/20 AGE: 54 : 63 SEX: F ROOM/BED: D.2312 AUTHOR: FROILAN,DOC PHYSICIAN: REFERRING PHYSICIAN: COLLETTE LAW MD DATE OF SERVICE: 01/19/20 Discharge Plan Patient Name: DOUGLAS HILLS Facility: [facility]:[place] : 1965 Planned Disposition: Nursing Facility [facility] Cert Anticipated Discharge Date: Discharge Date: Expected LOS: Initial Reviewer: [email or web address] Initial Review Date: 01/19/2020 Generated: 01/19/20 8:13 pm Comments DCP- Discharge Planning Updated by [id number]: Ginny Saavedra on 01/19/20 6:[address] Patient Name: DOUGLAS HILLS Admission Status: ER Accout number: [id number] Admission Date: 01-18-2020 : 1965 Admission Diagnosis: Attending: ANI, Current LOS: 1 Anticipated DC Date: Planned Disposition: Nursing Facility [facility] Cert Primary Insurance: [facility] MEDICARE SOLUTIONS Discharge Planning Comments: 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 Yes * How many steps to enter\exit or inside your home? * PCP [facility] * Pharmacy [facility] * Preadmission Environment [facility] * Facility Name [facility] * ADLs Partial Dependent * Partial ADLs (Assistance needed) Ambulation Bathing Dressing Eating Medication Management Toileting Transfers * Equipment BIPAP * List name and contact numbers for known caregivers / representatives who currently or will assist patient after discharge: ALMA ALVAREZ - [facility] - [phone] * Verbal permission to speak to the caregivers and representatives has been obtained from the patient. Yes * Community resources currently utilized None * Additional services required to return to the preadmission environment? No * Can the patient safely return to the preadmission environment? Yes * Has this patient been hospitalized within the prior 30 days at any hospital? No Last DP export: 01/19/20 6:08 p Patient Name: DOUGLAS HILLS Page 61116 at 191 All edits/amendments must be made on the electronic document DICTATION DATE: 01/19/201913 PLODDER OPERATOR: CLEMENT 01/19/201913 RPT#: [id number] DC DATE: STATUS: ADM IN [facility] [address] [place] [address] END OF REPORT
[2020-01-20] VITALS (20 sets, daily range): BP systolic 98–155; BP diastolic 37–87
--- NOTE | 2020-01-20 07:40 | NUR ---
PT IS RESTING IN BED WITH EYES CLOSED. RESPIRATIONS ARE EVEN AND UNLABORED. BIPAP ON PER ORDER. PT IS EASILY AROUSED WITH VERBAL STIMULATION. PT IS AAO X 4 UPON AROUSAL AND ANSWERS ALL QUESTIONS APPROPRIATLEY. PT WITH INCONTINENT STOOL. COMPLETE LINEN CHANGE AND PT CLEANED AT THIS TIME. NO ACUTE S/S OF DISTRESS NOTED AT THIS TIME. HESS CATHETER NOTED AND DRAINING WITHOUT DIFFICULTY. CLEAR YELLOW URINE NOTED TO COLLECTION BAG. STAT LOCK IN PLACE. HESS CARE GIVEN AT THIS TIME. SHIFT ASSESSMENT COMPLETED AT THIS TIME. BED IS IN THE LOWEST POSITION. CALL LIGHT AND BEDSIDE TABLE ARE WITHIN REACH. SIDE RAILS X 2. PT DENIES FURTHER NEEDS. WILL CONT TO MONITOR.
--- NOTE | 2020-01-20 08:46 | NUR ---
RESPIRATORY AT BEDSIDE AND REMOVES PT FROM BIPAP AND PLACES ON O2 VIA NC @ 5L AND PT WITH SATS @ 94%. PT REPORTS COMFORT WITH REMOVAL OF BIPAP AND DENIES PRESENCE OF PAIN/N/V AT THIS TIME. PT DENIES FURTHER NEEDS. WILL CONT TO MONITOR.
--- NOTE | 2020-01-20 09:07 | NUR ---
PT CONTINENT SMALL LIGHT BROWN SOFT/FORMED BM.
--- NOTE | 2020-01-20 09:40 | NUR ---
PT O2 SATS DROP TO 84%. PT ENCOURAGED TO TCDB AND TAKE BREATH THROUGH NOSE. PT IS COMPLIANT AND VERBALIZES UNDERSTANDING AND O2 SAT INCREASES TO 96% WITH O2 VIA NC @ 6L. PT DENIES FURTHER NEEDS. WILL CONT TO MONITOR.
--- NOTE | 2020-01-20 10:09 | NUR ---
DR SULTANA AT BEDSIDE. PT REPORTS PAIN GENERALIZED TO DR SULTANA. VERBAL ORDERS RECD TO START DIABETIC DIET AND RESTART HOME DOSE OF [place] TO HELP WITH PT INCREASED LEVEL OF ANXIETY RELATED TO HOSPITAL ADMISSIONS. WILL PLACE ORDERS AND ADMINISTER.
--- NOTE | 2020-01-20 10:15 | NUR ---
PHARMACY NOTIFIED OF NEED OF BUMEX AND ZAROXOLEN MEDICATION
--- NOTE | 2020-01-20 12:07 | NUR ---
PT WITH SMALL AMOUNT OF SOFT FORMED LIGHT BROWN STOOL. PT IS CONTINENT OF BOWEL AT THIS TIME. LUNCH TRAY AT BEDSIDE. PT WITHOUT ACUTE S/S OF DISTRESS NOTED. HESS CATHETER IS DRAINING WITHOUT DIFFICULTY. BED IS IN THE LOWEST POSITION. CALL LIGHT AND BEDSIDE TABLE ARE WITHIN REACH. SIDE RAILS X 2. PT DENIES FURTHER NEEDS. WILL CONT TO MONITOR.
--- NOTE | 2020-01-20 12:15 | NUR ---
RESPIRATORY NOTIFIED OF NEED TO PLACE PT ON VENT PER DR HEREDIA ORDER.
--- NOTE | 2020-01-20 13:46 | NUR ---
PT REPOSITIONING IN BED AND STAT LOCK BROKE. HESS CATHETER WITHOUT COMPROMISE AND IS DRAINING WITHOUT DIFFICULTY. NEW STAT LOCK PLACED TO RIGHT UPPER THIGH. BED IS IN THE LOWEST POSITION. CALL LIGHT AND BEDSIDE TABLE ARE WITHIN REACH. SIDE RAILS X 2. PT DENIES FURTHER NEEDS. WILL CONT TO MONITOR.
--- NOTE | 2020-01-20 13:52 | NUR ---
RESPIRATORY AT BEDSIDE. BIPAP PLACED ON PT. PT EDUCATED ON PLAN OF CARE. PT VERBALIZES UNDERSTANDING AND IS AGGREEABLE AT THIS TIME. BED IS IN THE LOWEST POSITION. CALL LIGHT AND BEDSIDE TABLE ARE WITHIN REACH. SIDE RAILS X 2. PT DENIES FURTHER NEEDS. WILL CONT TO MONITOR.
--- NOTE | 2020-01-20 15:13 | NUR ---
PT IS RESTING IN BED WITH EYES CLOSED. RESPIRATIONS ARE EVEN AND UNLABORED. PT IS EASILY AROUSED WITH VERBAL STIMULATION. BIPAP IS ON PER ORDER. VSS. SEE FLOWHSEET. HESS CATHETER DRAINING WITHOUT DIFFICULTY. CLEAR YELLOW URINE NOTED TO COLLECTION CHAMBER. STAT LOCK IN PLACE TO RIGHT UPPER THIGH. PT DENIES PRESENCE OF N/V/DYSPNEA AT THIS TIME. BED IS IN THE LOWEST POSITION. CALL LIGHT AND BEDSIDE TABLE ARE WITHIN REACH. SIDE RAILS X 2. PT DENIES FURTHER NEEDS. WILL CONT TO MONITOR.
--- NOTE | 2020-01-20 15:30 | NUR ---
PT WITH INCONTINENT EPISODE OF MODERATE AMOUNT OF SOFT LIGHT BROWN STOOL. PT CLEANED AND HESS CARE GIVEN. LINENS CHANGED. PT DENIES FURTHER NEEDS. BED IS IN THE LOWEST POSITION. CALL LIGHT AND BEDSIDE TABLE ARE WITHIN REACH. SIDE RAILS X 2. WILL CONT TO MONITOR.
--- NOTE | 2020-01-20 15:43 | NUR ---
PIV TO LEFT SHOULDER WITH REDNESS AND LEAKING. PIV REMOVED WITH CATHETER TIP INTACT. DRESSING APPLIED. PIV RESITE TO RIGHT WRIST 22G X 2 ATTEMPTS. PT TOLERATED WELL. BED IS IN THE LOWEST POSITION. CALL LIGHT AND BEDSIDE TABLE ARE WITHIN REACH. SIDE RAILS X 2. PT DENIES FURTHER NEEDS. WILL CONT TO MONITOR.
--- NOTE | 2020-01-20 17:45 | NUR ---
PT RESTING IN BED WITH EYES OPEN. RESPIRATIONS ARE EVEN AND UNLABORED. PT IS AAO X 4. PT TALKING ON PERSONAL CELL PHONE TO DAUGHTER. HESS CATHETER INPLACE AND DRAINING WITHOUT DIFFICULTY. STAT LOCK TO RIGHT UPPER THIGH. CLEAR YELLOW URINE NOTED TO COLLECTION CHAMBER. PIV TO RIGHT WRIST IS SL AND FLUSHES WITHOUT DIFFICULTY. BED IS IN THE LOWEST POSITION. CALL LIGHT AND BEDSIDE TABLE ARE WITHIN REACH. SIDE RAILS X 2. PT DENIES FURTHER NEEDS. WILL CONT TO MONITOR.
--- NOTE | 2020-01-20 19:20 | NUR ---
PT IS LAYING ON RIGHT SIDE TALKING ON THE PHONE. SHE IS A&OX4. VSS. PERFORMED FULL ASSESSMENT AND WILLDOC IN FLOWSHEET. HESS CATHETOR OBSERVED HANGING ON RIGHT SIDE OF BED BELOW BLADDER AND DRAINING. HER BED IS LOW,SIDE RAISLX2,CALL LIGHT WIHTIN REACH. WILL CONTIUE TO MONITOR
--- NOTE | 2020-01-20 20:06 | NUR ---
PT USED CALL LIGHT. ASKED "CAN I HAVE A PAIN PILL?". I EXPLAINTED TO HER THAT PER HE ORDERED PADMINI HOLD HER NORCO UNTILL THE AM DUE TO SOB. PT VOICED"WELL THATS NOT GOING TO WORK". I EXPLAINED TO PT THE REASON WHY HE WANTS TO HOLD HER NORCO DUE TO THE ADVERSE EFFECT OF SOB WHEN TAKING NARCOTICS. PT VOICED"I UNDERSTAND BUT IV GOT TO HAVE SOMETHING". HER PAIN IS IN HER BACK. VOICES "8/10" ON NUMERIC SCALE. HER VSS. I VOCALIED WE COULD PUT A WARM COMPRESS TO HELP WITH PAIN IF SHE WOULD LIKE TO TRY. SHE VOICED"OK". PROVIDED HER WITH A WARM COMPRESS TO HER BACK. WILL SEE IF IT WILL HELP LESSON HER BACK PAIN. SHE IS STILL LAYING ON HER RIGHT SIDE AT THIS TIME. BED IS LOW,SIDE RAISLX2,CALL LIGHT WITHIN REACH. WILL CONINTUE TO MONITOR
--- NOTE | 2020-01-20 20:45 | NUR ---
TALKED TO . T.O TO GIVE 650MG OF TYLENOL Q6HP FOR PAIN. T.O READ BACK CORRECT
--- NOTE | 2020-01-20 22:15 | NUR ---
PT USED CALL LIGHT AND ASKED"CAN I GET A FAN FOR MY ROOM?". I VOCALIZED I WOULD CALL AND SEE IF WE HAVE ONE AVAILABLE. VSS. NO OTHER NEEDS OR C/O VOICED. BED IS LOW,SIDE RAISLX2,CALL LIGHT WITHIN REACH. WILL CONTINUE TO MONITOR
--- NOTE | 2020-01-20 23:15 | NUR ---
PT IS LAYING ON LEFT SIDE IN BED WITH EYES CLOSED SNORING. BIPAP IS ON. VSS. ADMINISTER ANTIBITOIC SCHEDULED. PT VOICES NO NEEDS OR CONCERNS AT THIS TIME. RE-ASSESSMENT DONE AND WILL DOC IN FLOW SHEET. BED IS LOW,SIDE RAISLX2, CALL LIGHT WITHINR EACH. WILL CONTINUE TO MONITOR
[2020-01-21] VITALS (10 sets, daily range): BP systolic 109–144; BP diastolic 46–96
--- NOTE | 2020-01-21 01:10 | NUR ---
PT IS RESTING WITH EYES CLOSED SNORING, BIPAP IS ON. VSS. BED IS LOW,SIDE RAILSX2,CALL LIGHT WITHIN REAH. WILL CONTINUE TO MONITOR
--- NOTE | 2020-01-21 03:00 | NUR ---
PT IS RESTING IN BED ON LEFT SIDE WITH EYES CLOSED. VSS. BIPAP ON. RE-ASSESSMENT DONE AT THIS TIME AND WILL DOC IN FLOW SHEET. NO NEEDS VOICED. BED IS LOW,SIDE RAILSX2,CALL LIGHT WITHIN REACH. WILL CONITNUE TO SUSHMA
--- NOTE | 2020-01-21 05:00 | NUR ---
PT IS LAYING IN BED ON RIGHT SIDE AWAKE WATCHING TV. VSS. BIPAP IS ON. SHE ASK"CAN I GET ANOTHER TYLENOL". I VOICED YES IT IS TIME. WILL ADMSINITER PER PRN ON SEP. I ALSO ASKED PT IF SHE WOULD LIKE FOR ME TO HELP HER GET A BATH. SHE VOICED"I DONT WANT ONE RIGHT NOW". I TRIED TO EXPLAIN THAT IT WOULD BE BEST TO ALLOW ME TO DO IT NOW,SHE VOICED"NO ID RATHER GO AHEAD AND WAIT". BED IS LEFT LOW,SIDE RAISLX2,CALL LIGHT WITHIN REACH. WILL CONTINUE TO MONITOR
--- NOTE | 2020-01-21 06:18 | NUR ---
PT IS RESTING IN BED WATCHING TV. VSS. SHE VOICES"IM SHAANGN GOOD". NO NEEDS VOICED AT THIS TIME. BED IS LOW,SIDE RAISLX2,CALL LIGHT WITHIN REACH. WILL CONITNUE TO MONITOR
--- NOTE | 2020-01-21 07:15 | NUR ---
REPORT RECIEVED, SHIFT ASSESSMENT COMPLETE, PT IS ALERT AND ORIENTED, ON 5L NC WITH 97% O2 SAT. ALL PPP, VSS, CALL LIGHT IN REACH
--- NOTE | 2020-01-21 09:00 | NUR ---
PT RESTING AT THIS TIME, WILL CON'T TO MONITOR
--- NOTE | 2020-01-21 11:00 | NUR ---
PT AWAKE AT THIS TIME, DENIES ANY WANTS OR NEEDS,
--- NOTE | 2020-01-21 13:15 | NUR ---
PT RESTING COMFORTABLY AT THIS TIME, WILL CON'T TO MONITOR
--- NOTE | 2020-01-21 14:26 | NUR ---
Nutrition Follow-up: Pt with BiPAP on at time of RD visit. BiPAP Rx is for 4hrs on/4hrs off during the day and continuous at night. Diet: Diabetic PO intake: ~25% average x 1 meal recorded. PO diet was started lunch yesterday Last BM: 01/20/20. WT: 360# (01/21/20) Meds noted: prednisone, bumex, SSI. Labs noted: Glu 261(H) Recommend continue current diet. Encourage PO intake. Offer oral nutrition supplements if PO intake trends <60% average. RD following.
--- NOTE | 2020-01-21 15:30 | NUR ---
PT AWAKE AT THIS TIME, TALKING WITH FAMILY OVER PHONE, DENIES ANY WANTS OR NEEDS
--- NOTE | 2020-01-21 23:15 | NUR ---
PT ARRIVED TO THE FLOOR. ALERT ND ORIENTED. NO SIGNS OF DISTRESS. BREATHING EVEN AND UNLABORED. IV SITE RT HAND DRESSING CLEAN DRY AND INTACT. NO SIGNS OF INFECTION OR INFULTRATION. 5LO2 NASAL CANNULA. LUNG SOUNDS DIMINISHED IN THE LOWER LOBES. BOWEL SOUNDS ACTIVE. HESS IN PLACE AND DRAINNING. WILL CONTINUE PLAN OF CARE. CALL LIGHT IN REACH. BED LOWERED AND LOCKED. BED RAILS UPX2.
[2020-01-22] VITALS: BP 138/53
[2020-01-22 04:00] VITALS: BP 129/80
--- NOTE | 2020-01-22 08:35 | NUR ---
PATIENT AWAKE AND ALERT. ASKED IF I HAD AN IPHONE FAMILY READINESS SUPPORT ASSISTANT SO SHE COULD CHARGE HER PHONE. I DIDN'T. I ASKED COWORKERS WITH NO SUCCESS. CO OF PAIN 4 OUT OF 10. NO FURTHER NEEDS AT THIS TIME. WCTM
[2020-01-22 09:00] VITALS: BP 116/49
[2020-01-22 10:35] LABS: BASOPHILS 0.1 % (0-2); EOSINOPHILS 2.3 % (0-7); HEMATOCRIT 35.2 % (36.0-48.0); HEMOGLOBIN 10.1 g/dL (12-16); IMMATURE GRANULOCYTES 0.9 % (0-5); LYMPHOCYTES 11.7 % (15-50); MCH 25.3 pg (26.0-34.0); MCHC 28.7 g/dL (31.0-37.0); MCV 88.2 fL (80.0-100.0); MEAN PLATELET VOLUME 8.8 fL (7.4-10.4); MONOCYTES 8.5 % (2-11); NEUTROPHILS 76.5 % (40-80); PLATELET COUNT 227 10x3/uL (130-400); RBC 3.99 10x6/uL (4.00-5.40); RDW 15.6 % (11.5-14.5); WBC 14.6 10x3/uL (4.8-10.8)
[2020-01-22 10:56] LABS: ANION GAP 6.2 mmol/L (8-16); BILIRUBIN - TOTAL 0.37 mg/dL (0.2-1.3); CALCIUM 8.9 mg/dL (8.5-10.1); CREATININE - SERUM 1.2 mg/dL (0.6-1.3); MAGNESIUM - SERUM 1.4 mg/dL (1.8-2.4); PHOSPHOROUS 4.5 mg/dL (2.5-4.9); PROTEIN - SERUM 6.4 g/dL (6.4-8.2)
[2020-01-22 11:06] LABS: CARBON DIOXIDE 40.8 mmol/L (21.0-32.0)
--- NOTE | 2020-01-22 12:52 | MORECARE ---
CASE MANAGEMENT DISCHARGE SUMMARY PATIENT: DOUGLAS HILLS UNIT: [id number] ADM DATE: 01/18/20 AGE: 54 : 63 SEX: F ROOM/BED: D.2213 AUTHOR: FROILAN,DOC PHYSICIAN: REFERRING PHYSICIAN: COLLETTE LAW MD DATE OF SERVICE: 01/22/20 Discharge Plan Patient Name: DOUGLAS HILLS Facility: [facility]:[place] : 1965 Planned Disposition: Nursing Facility [facility] Cert Anticipated Discharge Date: Discharge Date: Expected LOS: Initial Reviewer: [email or web address] Initial Review Date: 01/19/2020 Generated: 01/22/20 1:51 pm Comments DCP- Discharge Planning Updated by [email or web address]: Rahel Uriostegui on 01/22/20 11:[address] Patient Name: DOUGLAS HILLS Admission Status: ER Accout number: [id number] Admission Date: 01-18-2020 : 1965 Admission Diagnosis:ACUTE AND CHRONIC RESPIRATORY FAILURE WITH HYPERCAPNIA Attending: ANI, Current LOS: 4 Anticipated DC Date: Planned Disposition: Nursing Facility [facility] Cert Primary Insurance: [facility] MEDICARE SOLUTIONS Discharge Planning Comments: IMM SIGNED BY PATIENT. 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 JENNIFER CONTACTED, WAITING TO HEAR BACK ON A BACTERIOLOGIST FOOD TIME. CM TO FOLLOW AND ASSIST NEEDED. 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 Yes * How many steps to enter\exit or inside your home? * PCP [facility] * Pharmacy [facility] * Preadmission Environment [facility] * Facility Name [facility] * ADLs Partial Dependent * Partial ADLs (Assistance needed) Ambulation Bathing Dressing Eating Medication Management Toileting Transfers * Equipment BIPAP * List name and contact numbers for known caregivers / representatives who currently or will assist patient after discharge: ALMA ALVAREZ - MONET - [phone] * Verbal permission to speak to the caregivers and representatives has been obtained from the patient. Yes * Community resources currently utilized None * Additional services required to return to the preadmission environment? No * Can the patient safely return to the preadmission environment? Yes * Has this patient been hospitalized within the prior 30 days at any hospital? No External [facility]iders [facility] Next Contact Date: Service Request Date: Service Type: Resolution: Reviewer: Comments: Coverage Notice Reviewer: [email or web address] - Rahel Uriostegui Notice Issued Date-Time: 01/22/2020 12:48 Notice Type: IM Discharge Notice Notice Delivered To: Patient Relationship to Patient: Edge Trimming Machine Operator Name: Delivery Method: HAND - Hand Delivered Adrianne Days: Prior Verbal Notification: Recipient Understood Notice: Yes Recipient Signature: Yes Med Rec Note Co-signed by Attending: Coverage Notice Comment: Last DP export: 01/19/20 6:14 p Patient Name: DOUGLAS HILLS Page [id number] at 1252 All edits/amendments must be made on the electronic document DICTATION DATE: 01/22/20 1251 WALLPAPER INSPECTOR: CLEMENT 01/22/20 1251 RPT#: [id number] DC DATE: STATUS: ADM IN [facility] [address] [place] [address] END OF REPORT
--- NOTE | 2020-01-22 14:25 | NUR ---
CALLED REPORT TO MEGAN AT THE [facility].
--- NOTE | 2020-01-22 14:50 | NUR ---
IV THERAPY REMOVED FROM RIGHT HAND. TIP INTACT. HESS REMOVED. REMOVED 9 ML FROM BALLOON. TOLERATED BOTH WELL. SIGNED DISCHARGE PAPERS. [facility] IS HERE TO GET HER AND TAKE HER BACK.
--- NOTE | 2020-01-22 17:33 | MORECARE ---
CASE MANAGEMENT DISCHARGE SUMMARY PATIENT: DOUGLAS HILLS UNIT: [id number] ADM DATE: 01/18/20 AGE: 54 : 63 SEX: F ROOM/BED: D.2213 AUTHOR: FROILAN,DOC PHYSICIAN: REFERRING PHYSICIAN: COLLETTE LAW MD DATE OF SERVICE: 01/22/20 Discharge Plan Patient Name: DOUGLAS HILLS Facility: [facility]:[place] : 1965 Planned Disposition: Nursing Facility [facility] Cert Anticipated Discharge Date: Discharge Date: 01/22/2020 Expected LOS: Initial Reviewer: [email or web address] Initial Review Date: 01/19/2020 Generated: 01/22/20 6:32 pm Comments DCP- Discharge Planning Updated by [id number]: Rahel Uriostegui on 01/22/20 11:[address] Patient Name: DOUGLAS HILLS Admission Status: ER Accout number: [id number] Admission Date: 01-18-2020 : 1965 Admission Diagnosis:ACUTE AND CHRONIC RESPIRATORY FAILURE WITH HYPERCAPNIA Attending: ANI, Current LOS: 4 Anticipated DC Date: Planned Disposition: Nursing Facility [facility] Cert Primary Insurance: [facility] MEDICARE SOLUTIONS Discharge Planning Comments: IMM SIGNED BY PATIENT. SHE IS A RESIDENT IN SENIOR CARE BED AT [facility]. JENNIFER CONTACTED, WAITING TO HEAR BACK ON A BRIDAL STYLIST SALES CONSULTANT TIME. CM TO FOLLOW AND ASSIST NEEDED. 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 Yes * How many steps to enter\exit or inside your home? * PCP [facility] * Pharmacy [facility] * Preadmission Environment [facility] * Facility Name [facility] * ADLs Partial Dependent * Partial ADLs (Assistance needed) Ambulation Bathing Dressing Eating Medication Management Toileting Transfers * Equipment BIPAP * List name and contact numbers for known caregivers / representatives who currently or will assist patient after discharge: ALMA ALVAREZ - MONET - [phone] * Verbal permission to speak to the caregivers and representatives has been obtained from the patient. Yes * Community resources currently utilized None * Additional services required to return to the preadmission environment? No * Can the patient safely return to the preadmission environment? Yes * Has this patient been hospitalized within the prior 30 days at any hospital? No Coverage Notice Reviewer: [id number] Bayron Uriostegui Notice Issued Date-Time: 01/22/2020 12:48 Notice Type: IM Discharge Notice Notice Delivered To: Patient Relationship to Patient: Orthopedic Cast Specialist Name: Delivery Method: HAND - Hand Delivered Adrianne Days: Prior Verbal Notification: Recipient Understood Notice: Yes Recipient Signature: Yes Med Rec Note Co-signed by Attending: Coverage Notice Comment: Last DP export: 01/22/20 11:52 am Patient Name: DOUGLAS HILLS Page 32339 at 1733 All edits/amendments must be made on the electronic document DICTATION DATE: 01/22/201731 UNEMPLOYMENT INSURANCE DIRECTOR: CLEMENT 01/22/201731 RPT#: [id number] DC DATE:01/22/20 STATUS: DIS IN [facility] [address] [place] [address] END OF REPORT
== END 2020-01-22 14:55 | DRG 189 ==
LOC: D.ER 20:20 → D.ICU 23:04 → D.MS 01-21 22:13
PROVIDERS: Emergency Medicine; Family Medicine; ADMIT Family Medicine; ATTEND Family Medicine
PROC: 5A09357 Assistance with Respiratory Ventilation, Less than 24 Consecutive Hours, Continuous Positive Airway Pressure (ICD-10-PCS; principal; 2020-01-19)
DX: J96.22 Acute and chronic respiratory failure with hypercapnia (principal); I50.33 Acute on chronic diastolic (congestive) heart failure; G93.41 Metabolic encephalopathy; Z68.45 Body mass index [BMI] 70 or greater, adult; J96.21 Acute and chronic respiratory failure with hypoxia; J30.9 Allergic rhinitis, unspecified; R53.81 Other malaise; E66.01 Morbid (severe) obesity due to excess calories; E03.9 Hypothyroidism, unspecified; E78.5 Hyperlipidemia, unspecified; E11.9 Type 2 diabetes mellitus without complications; D50.9 Iron deficiency anemia, unspecified; G47.33 Obstructive sleep apnea (adult) (pediatric)

== ENCOUNTER 2020-02-08 13:07 | Inpatient (IN) | payer MEDICARE, MEDICAID ==
[~2020-02-08] VITALS: Ht 152.4 cm; Wt 116.6 kg
[2020-02-08 14:05] LABS: BASOPHILS 0.1 % (0-2); HEMATOCRIT 31.6 % (36.0-48.0); HEMOGLOBIN 9.1 g/dL (12-16); IMMATURE GRANULOCYTES 1.3 % (0-5); LYMPHOCYTES 11.4 % (15-50); MCH 25.7 pg (26.0-34.0); MCHC 28.8 g/dL (31.0-37.0); MCV 89.3 fL (80.0-100.0); MEAN PLATELET VOLUME 8.8 fL (7.4-10.4); MONOCYTES 6.8 % (2-11); NEUTROPHILS 77.4 % (40-80); PLATELET COUNT 198 10x3/uL (130-400); RBC 3.54 10x6/uL (4.00-5.40); WBC 12.1 10x3/uL (4.8-10.8)
[2020-02-08 14:14] LABS: INR 0.95 (0.85-1.17); PROTIME 12.6 SECONDS (11.6-15.0)
[2020-02-08 14:35] LABS: CALC OSMOLALITY 286 mosm/kg (275-300); CALCIUM 8.3 mg/dL (8.5-10.1); CHLORIDE - SERUM 94 mmol/L (98-107); CREATININE - SERUM 1.2 mg/dL (0.6-1.3); GLUCOSE 247 mg/dL (74-106); POTASSIUM - SERUM 3.7 mmol/L (3.5-5.1); SODIUM 138 mmol/L (136-145); UREA NITROGEN 21 mg/dL (7-18); eGFR NON AFRICAN AMERICAN 49 mL/min (90-120)
[2020-02-08 14:52] LABS: ALKALINE PHOSPHATASE 89 U/L (30-120); ALT (SGPT) 24 U/L (10-68); BILIRUBIN - TOTAL 0.39 mg/dL (0.2-1.3); CKMB 0.9 U/L (0.0-3.6); CREATINE KINASE 26 UL (21-215); PRO BNP 363 pg/mL (0-125); PROTEIN - SERUM 6.4 g/dL (6.4-8.2)
[2020-02-08 14:57] LABS: TROPONIN-I < 0.017 ng/mL (0.000-0.060)
[2020-02-08 14:59] LABS: CARBON DIOXIDE 48.3 mmol/L (21.0-32.0)
--- NOTE | 2020-02-08 16:07 | NUR ---
ROCEPHIN STOPPED AT THIS TIME.
[2020-02-08 17:26] VITALS: BMI 62.6
[2020-02-08] MEDS ORDERED: MUCINEX600 MG PO (17:31)
[2020-02-08] MEDS ORDERED: NIZORAL 2 % SH120 ML TOPICAL (17:35)
--- NOTE | 2020-02-08 19:17 | NUR ---
PATIENT RESTING IN BED WITH EYES CLOSED AND BIPAP ON. BED IN LOWEST POSITION AND CALL LIGHT WITHIN REACH. WILL CONTINUE TO MONITOR.
[2020-02-08 20:32] VITALS: BP 129/62
[2020-02-09 00:25] VITALS: BP 119/50
--- NOTE | 2020-02-09 00:55 | NUR ---
PLACED HESS CATH PER ORDERS.
[2020-02-09 01:23] LABS: BILIRUBIN NEGATIVE (NEGATIVE); GLUCOSE NEGATIVE (NEGATIVE); KETONE NEGATIVE (NEGATIVE); NITRITE NEGATIVE (NEGATIVE); UROBILINOGEN NORMAL (NORMAL)
[2020-02-09 03:02] VITALS: BP 100/56
[2020-02-09 04:44] LABS: BASOPHILS 0 % (0-2); EOSINOPHILS 3.2 % (0-7); HEMATOCRIT 31.7 % (36.0-48.0); HEMOGLOBIN 8.8 g/dL (12-16); IMMATURE GRANULOCYTES 0.7 % (0-5); LYMPHOCYTES 13.1 % (15-50); MCH 25.2 pg (26.0-34.0); MCHC 27.8 g/dL (31.0-37.0); MCV 90.8 fL (80.0-100.0); MEAN PLATELET VOLUME 8.9 fL (7.4-10.4); MONOCYTES 7.7 % (2-11); NEUTROPHILS 75.3 % (40-80); PLATELET COUNT 186 10x3/uL (130-400); RBC 3.49 10x6/uL (4.00-5.40); RDW 16.1 % (11.5-14.5); WBC 9.4 10x3/uL (4.8-10.8)
[2020-02-09 04:53] LABS: ALBUMIN 2.7 g/dL (3.4-5.0); BILIRUBIN - TOTAL 0.55 mg/dL (0.2-1.3); CALCIUM 8.4 mg/dL (8.5-10.1); CREATININE - SERUM 0.9 mg/dL (0.6-1.3); PROTEIN - SERUM 6.7 g/dL (6.4-8.2)
[2020-02-09 05:21] LABS: ANION GAP -3.2 mmol/L (8-16); POTASSIUM - SERUM 3.1 mmol/L (3.5-5.1)
[2020-02-09 05:22] LABS: CARBON DIOXIDE 51.3 mmol/L (21.0-32.0)
--- NOTE | 2020-02-09 08:00 | NUR ---
AWAKE AND ALERT. A/O X3. ON BIPAP AT THIS TIME. LUNGS ARE DIMINISHED THROUGHOUT, NO COUGH NOTED. SKIN IS SLIGHTLY REDDENED UNDER BREAST AND IN GROIN AREA. WILL ASK FOR NYSTATIN POWDER. IV TO LEFT UPPER ARM PATENT WITHOUT REDNESS AT INSERTION SITE. HESS PATENT WITH CLEAR YELLOW URINE. DENIES NEEDS.
[2020-02-09 09:06] VITALS: BP 105/70
--- NOTE | 2020-02-09 11:00 | NUR ---
TOOK AM MEDS WITHOUT DIFFICULTY. REMAINS ON BIPAP.
--- NOTE | 2020-02-09 12:00 | NUR ---
FSBS 210. GIVEN 8 UNITS REGULAR SUBQ PER SS. DENIES NEEDS.
[2020-02-09 12:34] VITALS: BP 156/66
[2020-02-09 12:44] VITALS: Ht 152.4 cm; Wt 116.6 kg
--- NOTE | 2020-02-09 14:40 | NUR ---
RESTING QUIETLY IN BED WITH EYES CLOSED. BIPAB IN PLACE. DENIES NEEDS.
--- NOTE | 2020-02-09 17:00 | NUR ---
FSBS 110. NO COVERAGE. IV TO LEFT UPPER ARM CONTINUES TO BEEP. D/C WITH CATHETER INTACT. RESITED TO RIGHT FOREARM AFTER ONE ATTEMPT WITH 20G. ATE MOST OF SUPPER. DENIES NEEDS. NO CHANGES NOTED.
[2020-02-09 17:09] VITALS: BP 92/35
[2020-02-09 20:00] VITALS: BP 117/40
--- NOTE | 2020-02-10 00:23 | NUR ---
REC'D PASSING DOORWAY STATES MY FEET ARE COLD INSTRUCTED GIVING PAIN MED TO ANOTHER PATIENT.WILL BE WITH YOU IN JUST A MINUTE.ON ENTERING ROOM PATIENT YELLING ENCOURAGED NOT TO YELL.STATES YOU STOP YELLING REINFORCED WILL BE MORE THAN HAPPY TO COME BACK WHEN YOU GET SETTLED AND LOWER YOUR VOLUME.STATES GET ME ANOTHER NURSE.REPORTED REQUEST TO CHARGE NURSE ADOLPH LA RN. AFTER TALKING WITH CHARGE NURSE STATES DIDN'T MEAN TO YELL AT HER SHE HAS ALWAYS BEEN GOOD TO ME. PATIENTS APOLOGY ACCEPTED BY NURSE.WILL CONTINUE TO MONITOR FOR ANY CHGES AND FOLLOW CURRENT PLAN OF CARE.
[2020-02-10 06:03] LABS: BASOPHILS 0.1 % (0-2); EOSINOPHILS 4.4 % (0-7); HEMATOCRIT 31.3 % (36.0-48.0); HEMOGLOBIN 8.9 g/dL (12-16); IMMATURE GRANULOCYTES 0.7 % (0-5); LYMPHOCYTES 15.9 % (15-50); MCH 25.6 pg (26.0-34.0); MCHC 28.4 g/dL (31.0-37.0); MCV 90.2 fL (80.0-100.0); MEAN PLATELET VOLUME 8.7 fL (7.4-10.4); MONOCYTES 8.6 % (2-11); NEUTROPHILS 70.3 % (40-80); PLATELET COUNT 205 10x3/uL (130-400); RBC 3.47 10x6/uL (4.00-5.40); RDW 16.5 % (11.5-14.5); WBC 9.1 10x3/uL (4.8-10.8)
[2020-02-10 07:11] LABS: ANION GAP 3.5 mmol/L (8-16); CALCIUM 9.1 mg/dL (8.5-10.1); CREATININE - SERUM 1.1 mg/dL (0.6-1.3); POTASSIUM - SERUM 3.5 mmol/L (3.5-5.1)
[2020-02-10 08:35] VITALS: BP 137/64
--- NOTE | 2020-02-10 10:16 | NUR ---
PATIENT ALERT AND ORIENTED. LAYING IN BED RESTING QUIETLY. ON BIPAP. RESPIRATIONS EVEN NON LABORED. DIMINISHED BREATH SOUNDS. NO SIGNS OF DISTRESS NOTED. RIGHT FOREARM IV NORMAL SALINE 100. HESS IN PACE. DENIES FURTHER NEEDS. CALL LIGHT IN REACH. WILL CONTINUE TO MONITOR FOR SAFETY.
--- NOTE | 2020-02-10 10:24 | NUR ---
PATIENT CO2 77.9. DR. AKINS NOTIFIED.
[2020-02-10 13:03] VITALS: BP 104/56
--- NOTE | 2020-02-10 15:40 | NUR ---
I have reviewed this patient and I concur with the Shift Assessment completed by the Licensed Practical Nurse today this shift.
--- NOTE | 2020-02-10 15:48 | NUR ---
PATIENT ON TELEMETRY SINUS RHYTHM 96. ALERT AND ORIENTED. RESPIRATIONS EVEN NONLABORED. NO SIGNS OF DISTRESS NOTED. DENIES FURTHER NEEDS. WILL CONTINUE TO MONITOR FOR SAFETY.
[2020-02-10 17:17] VITALS: BP 123/55
--- NOTE | 2020-02-10 18:42 | NUR ---
PATIENT AND ORIENTED RESTING QUIETLY IN BED WITH BIPAP ON. EYES CLOSED. RESPIRATIONS EVEN NON LABORED. NO SIGNS OF DISTRESS NOTED. SIDE RAILS UP X3. CALL LIGHT IN REACH. WILL CONTINUE TO MONITOR FOR SAFETY.
--- NOTE | 2020-02-10 19:30 | NUR ---
PT SITTING UP IN BED WITHOUT DISTRESS, AOX4. ON BIPAP. IV RIGHT FA INFUSING NS @ KVI. HR 96 SR PER TELE. SCDS ON. DENIES NEEDS AT THIS TIME. CL IN REACH, WILL CTM
[2020-02-10 20:00] VITALS: BP 108/51
--- NOTE | 2020-02-10 21:00 | NUR ---
PT STARTED VOMITING, TOTAL 500ML YELLOW EMESIS WITH FOOD PARTICLES. STATED HER STOMACH AND BACK HURT. GAVE ZOFRAN WITH NO RELIEF. CALLED CLARA PIPELINE INTEGRITY ENGINEER AND RECIEVED ORDERS FOR PHENERGAN. GAVE ORDERED. HELD MEDS AT THIS TIME PT IS CONSTANTLY GAGGING AND STILL NAUSEOUS. RT HOLDING BIPAP AT THIS TIME
--- NOTE | 2020-02-10 23:00 | NUR ---
PT SLEEPING BUT WAKES UP GAGGING OFF AND ON, STATES PHENERGAN HELPED HER STOMACH PAIN AND NAUSEA SOME
[2020-02-11] VITALS: BP 109/45
[2020-02-11 04:00] VITALS: BP 96/43
[2020-02-11 06:13] LABS: BASOPHILS 0.1 % (0-2); EOSINOPHILS 0.3 % (0-7); HEMATOCRIT 33.9 % (36.0-48.0); HEMOGLOBIN 9.9 g/dL (12-16); IMMATURE GRANULOCYTES 1.3 % (0-5); LYMPHOCYTES 8.7 % (15-50); MCH 25.9 pg (26.0-34.0); MCHC 29.2 g/dL (31.0-37.0); MCV 88.7 fL (80.0-100.0); MEAN PLATELET VOLUME 8.7 fL (7.4-10.4); MONOCYTES 7.8 % (2-11); NEUTROPHILS 81.8 % (40-80); PLATELET COUNT 232 10x3/uL (130-400); RBC 3.82 10x6/uL (4.00-5.40); RDW 15.9 % (11.5-14.5)
[2020-02-11 06:16] LABS: WBC 12.8 10x3/uL (4.8-10.8)
[2020-02-11 06:28] LABS: CALCIUM 9.3 mg/dL (8.5-10.1)
[2020-02-11 06:43] LABS: POTASSIUM - SERUM 4.1 mmol/L (3.5-5.1)
[2020-02-11 06:44] LABS: CARBON DIOXIDE 41.1 mmol/L (21.0-32.0)
[2020-02-11 08:21] VITALS: BP 144/76
--- NOTE | 2020-02-11 09:37 | NUR ---
PATIENT RESTING QUIETLY IN BED. HARD TO AROUSE. ABLE TO AROUSE. STATES "SHE IS NAUSEATED." ZOFRAN GIVEN. O2 SAT 81 ON 5L. PUT BIPAP ON. O2 SAT 98. LEFT BIPAP ON. PATIENT WANTED TO BACK TO SLEEP. 0730 AND 0900 MEDICATION HELD DUE TO NAUSEA AND BIPAP ON. RESPIRATIONS EVEN NON LABORED. NO SIGNS OF DISTRESS NOTED. DENIES FURTHER NEEDS. SIDE RAILS UP X4. CALL LIGHT IN REACH. WILL CONTINUE TO MONITOR FOR SAFETY.
[2020-02-11 10:50] LABS: BASOPHILS 0.1 % (0-2); EOSINOPHILS 0.7 % (0-7); HEMATOCRIT 33.8 % (36.0-48.0); HEMOGLOBIN 9.9 g/dL (12-16); IMMATURE GRANULOCYTES 0.9 % (0-5); LYMPHOCYTES 8.1 % (15-50); MCH 26.3 pg (26.0-34.0); MCHC 29.3 g/dL (31.0-37.0); MCV 89.7 fL (80.0-100.0); MEAN PLATELET VOLUME 8.8 fL (7.4-10.4); MONOCYTES 8.4 % (2-11); NEUTROPHILS 81.8 % (40-80); PLATELET COUNT 211 10x3/uL (130-400); RBC 3.77 10x6/uL (4.00-5.40); RDW 15.9 % (11.5-14.5); WBC 12.9 10x3/uL (4.8-10.8)
--- NOTE | 2020-02-11 11:03 | NUR ---
RAPID RESPONSE CALLED AT 1000. SEE RAPID RESPONSE NOTES. NG TUBE PLACED AT 1050. CHEST XRAY ORDERED. 50% TICO MASK ON O2 SAT 92. SIDE RAILS UP X3. CALL LIGHT IN REACH. WILL CONTINUE TO MONITOR.
[2020-02-11 11:14] LABS: ALBUMIN 2.8 g/dL (3.4-5.0); ANION GAP 4.2 mmol/L (8-16); BILIRUBIN - TOTAL 0.38 mg/dL (0.2-1.3); CALCIUM 9.3 mg/dL (8.5-10.1); POTASSIUM - SERUM 3.8 mmol/L (3.5-5.1); PROTEIN - SERUM 7.2 g/dL (6.4-8.2)
[2020-02-11 11:29] LABS: CARBON DIOXIDE 40.6 mmol/L (21.0-32.0)
[2020-02-11 11:42] LABS: ALBUMIN 2.9 g/dL (3.4-5.0); BILIRUBIN - DIRECT 0.09 mg/dL (0.00-0.30); BILIRUBIN - INDIRECT 0.24 mg/dL (0.00-1.00); BILIRUBIN - TOTAL 0.33 mg/dL (0.2-1.3); PROTEIN - SERUM 7.2 g/dL (6.4-8.2)
[2020-02-11 11:49] VITALS: BP 127/58
[2020-02-11 15:47] VITALS: BP 136/55
--- NOTE | 2020-02-11 16:09 | NUR ---
PATIENT RESTING QUIETLY IN BED WITH EYES CLOSED. ON VENTI MASK 50%. O2 SAT 92. RESPIRATIONS EVEN NONLABORED. NO SIGNS OF DISTRESS NOTED. DENIES FURTHER NEEDS. NO PO MEDS GIVEN. NPO/NGTUBE. DENIES FURTHER NEEDS. SIDE RAILS UP X4. CALL LIGHT IN REACH. WILL CONTINUE TO MONITOR FOR SAFETY.
--- NOTE | 2020-02-11 16:18 | NUR ---
I have reviewed this patient and I concur with the Shift Assessment completed by the Licensed Practical Nurse today this shift.
--- NOTE | 2020-02-11 16:25 | NUR ---
PATIENT NG TUBE OUTPUT 75 ML. RESPIRATIONS EVEN NON LABORED. NO SIGNS OF DISTRESS NOTED. DENIES FURTHER NEEDS. SIDE RAILS UP X4. CALL LIGHT IN REACH. WILL CONTINUE TO MONITOR FOR SAFETY.
--- NOTE | 2020-02-11 18:52 | NUR ---
PATIENT RSTING QUIETLY IN BED WITH EYES CLOSED. ON 50% VENTI MASK. RESPIRATIONS EVEN NON LABORED. NO SIGNS OF DISTRESS NOTED. NG TUBE IN PAVE 100ML IN CONTAINER. DENIES FURTHER NEEDS. CALL LIGHT IN REACH. SIDE RAILS UP X4. CALL LIGHT IN REACH. WILL CONTINUE TO MONITOR FOR SAFETY.
[2020-02-11 20:00] VITALS: BP 115/57
--- NOTE | 2020-02-11 20:00 | NUR ---
PT LYING IN BED SLEEPING WITHOUT DISTRESS, AROUSES TO VOICE BUT LETHARGIC. BIPAP ON. NGT TO LIS. GREEN DRAINAGE IN CANNISTER. LEFT ARM ML INFUSING NS. CL IN REACH, WILL CTM
[2020-02-12] VITALS: BP 104/54
[2020-02-12 04:00] VITALS: BP 99/63
--- NOTE | 2020-02-12 04:15 | NUR ---
1100ML OF GREEN LIQUID IN NGT CANISTER. PLACED NEW CANISTER
[2020-02-12 05:02] LABS: BASOPHILS 0.1 % (0-2); EOSINOPHILS 0.8 % (0-7); HEMATOCRIT 35.4 % (36.0-48.0); HEMOGLOBIN 9.9 g/dL (12-16); IMMATURE GRANULOCYTES 1.8 % (0-5); LYMPHOCYTES 6.9 % (15-50); MCH 25.6 pg (26.0-34.0); MCV 91.5 fL (80.0-100.0); MEAN PLATELET VOLUME 8.7 fL (7.4-10.4); MONOCYTES 5.3 % (2-11); NEUTROPHILS 85.1 % (40-80); PLATELET COUNT 231 10x3/uL (130-400); RBC 3.87 10x6/uL (4.00-5.40); RDW 15.9 % (11.5-14.5); WBC 11.6 10x3/uL (4.8-10.8)
[2020-02-12 05:42] LABS: ALKALINE PHOSPHATASE 78 U/L (30-120); ALT (SGPT) 17 U/L (10-68); CALC OSMOLALITY 286 mosm/kg (275-300); CALCIUM 9.6 mg/dL (8.5-10.1); CHLORIDE - SERUM 97 mmol/L (98-107); CREATININE - SERUM 0.9 mg/dL (0.6-1.3); GLUCOSE 184 mg/dL (74-106); POTASSIUM - SERUM 3.5 mmol/L (3.5-5.1); PROTEIN - SERUM 7.5 g/dL (6.4-8.2); SODIUM 140 mmol/L (136-145); UREA NITROGEN 21 mg/dL (7-18); eGFR NON AFRICAN AMERICAN 69 mL/min (90-120)
[2020-02-12 06:07] LABS: CARBON DIOXIDE 46.6 mmol/L (21.0-32.0)
[2020-02-12 08:40] VITALS: BP 110/68
[2020-02-12 12:41] VITALS: BP 114/68
--- NOTE | 2020-02-12 12:41 | NUR ---
Nutrition follow-up: Pt remains NPO NGT->LIWS 2/2 continued gastric distension Labs reviewed Wt: 319# Recommend ProcalAmine PPN @ 100 ml/hr if medically feasible RDN following.
--- NOTE | 2020-02-12 12:44 | NUR ---
SLEEPING,BIPAP ON . MONITOR FOR NEEDS
[2020-02-12 16:21] VITALS: BP 130/53
[2020-02-12 20:00] VITALS: BP 124/58
--- NOTE | 2020-02-12 20:00 | NUR ---
PT SITTING UP IN BED SLEEPING WITH BIPAP ON. LEFT ARM MIDLINE INFUSING NS @ 75. NGT TO LIWS. DARK GREEN DRAINAGE IN CANISTER. HESS IN PLACE. PT AWAKENS TO VERBAL STIMULI. CAN ANSWER YES OR NO QUESTIONS OR FOLLOW SIMPLE COMMANDS BUT QUICKLY GOES BACK TO SLEEP.
--- NOTE | 2020-02-12 22:00 | NUR ---
DAUGHTER CALLED, UPDATE GIVEN. DAUGHTER STATES CONTACT NUMBER LISTED IS WRONG. ALMA - [phone]
[2020-02-13] VITALS: BP 138/54
[2020-02-13 04:00] VITALS: BP 152/63
[2020-02-13 08:35] LABS: BASOPHILS 0.1 % (0-2); EOSINOPHILS 0.4 % (0-7); HEMATOCRIT 34.9 % (36.0-48.0); HEMOGLOBIN 10.2 g/dL (12-16); IMMATURE GRANULOCYTES 0.7 % (0-5); LYMPHOCYTES 9.7 % (15-50); MCH 26.2 pg (26.0-34.0); MCHC 29.2 g/dL (31.0-37.0); MEAN PLATELET VOLUME 8.7 fL (7.4-10.4); MONOCYTES 6.3 % (2-11); NEUTROPHILS 82.8 % (40-80); PLATELET COUNT 239 10x3/uL (130-400); RDW 15.7 % (11.5-14.5); WBC 12.2 10x3/uL (4.8-10.8)
[2020-02-13 08:36] LABS: MCV 89.5 fL (80.0-100.0)
[2020-02-13 08:49] VITALS: BP 124/71
[2020-02-13 08:52] LABS: ANION GAP 3.6 mmol/L (8-16); CALCIUM 9.8 mg/dL (8.5-10.1); POTASSIUM - SERUM 3.6 mmol/L (3.5-5.1)
[2020-02-13 12:47] VITALS: BP 125/66
--- NOTE | 2020-02-13 13:18 | NUR ---
PT ON BACK EASILY AWAKENED. NO NEEDS AT THIS TIME.
--- NOTE | 2020-02-13 14:23 | MORECARE ---
CASE MANAGEMENT DISCHARGE SUMMARY PATIENT: DOUGLAS HILLS UNIT: [id number] ADM DATE: 02/08/20 AGE: 54 : 63 SEX: F ROOM/BED: D.2203 AUTHOR: AMELIA MCGOVERN PHYSICIAN: REFERRING PHYSICIAN: LIDIA HECK MD DATE OF SERVICE: 02/13/20 Discharge Plan Patient Name: DOUGLAS HILLS Facility: [facility]:[place] : 1965 Planned Disposition: Nursing Facility [facility] Cert Anticipated Discharge Date: Discharge Date: Expected LOS: Initial Reviewer: [email or web address] Initial Review Date: 02/08/2020 Generated: 02/13/20 3:22 pm Patient Name: DOUGLAS HILLS Page [id number] at 1423 All edits/amendments must be made on the electronic document DICTATION DATE: 02/13/20 142 CARPENTER ASSEMBLER: CLEMENT 02/13/20 142 RPT#: [id number] DC DATE: STATUS: ADM IN [facility] [address] [place] [address] END OF REPORT
--- NOTE | 2020-02-13 14:30 | MORECARE ---
CASE MANAGEMENT DISCHARGE SUMMARY PATIENT: DOUGLAS HILLS UNIT: [id number] ADM DATE: 02/08/20 AGE: 54 : 63 SEX: F ROOM/BED: D.2203 AUTHOR: AMELIA MCGOVERN PHYSICIAN: REFERRING PHYSICIAN: LIDIA HECK MD DATE OF SERVICE: 02/13/20 Discharge Plan Patient Name: DOUGLAS HILLS Facility: [facility]:[place] : 1965 Planned Disposition: Nursing Facility [facility] Cert Anticipated Discharge Date: Discharge Date: Expected LOS: Initial Reviewer: [email or web address] Initial Review Date: 02/08/2020 Generated: 02/13/20 3:29 pm DCPIA - Discharge Planning Initial Assessment Updated by [id number]: Droi Young on 02/13/20 2:25 pm * Is the patient Alert and Oriented? Yes * How many steps to enter\exit or inside your home? 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 N/A * Additional services required to return to the preadmission environment? No * Can the patient safely return to the preadmission environment? Yes * Has this patient been hospitalized within the prior 30 days at any hospital? Yes Last DP export: 02/13/20 1:23 p Patient Name: DOUGLAS HILLS Page [phone] at 1430 All edits/amendments must be made on the electronic document DICTATION DATE: 02/13/201428 PIANO TUNER: CLEMENT 02/13/20 142 RPT#: [id number] DC DATE: STATUS: ADM IN [facility] [address] [place] [address] END OF REPORT
--- NOTE | 2020-02-13 14:38 | MORECARE ---
CASE MANAGEMENT DISCHARGE SUMMARY PATIENT: DOUGLAS HILLS UNIT: [id number] ADM DATE: 02/08/20 AGE: 54 : 63 SEX: F ROOM/BED: D.2203 AUTHOR: FROILAN,DOC PHYSICIAN: REFERRING PHYSICIAN: LIDIA HECK MD DATE OF SERVICE: 02/13/20 Discharge Plan Patient Name: DOUGLAS HILLS Facility: [facility]:[place] : 1965 Planned Disposition: Nursing Facility JADYN Cert Anticipated Discharge Date: Discharge Date: Expected LOS: Initial Reviewer: [email or web address] Initial Review Date: 02/08/2020 Generated: 02/13/20 3:37 pm Comments DCP- Discharge Planning Updated by [email or web address]: Dori Young on 02/13/20 1:[address] Patient Name: DOUGLAS HILLS Admission Status: ER Accout number: [id number] Admission Date: 02-08-2020 : 1965 Admission Diagnosis:PNEUMONIA, UNSPECIFIED ORGANISM Attending: LIDIA HECK Current LOS: 5 Anticipated DC Date: Planned Disposition: Nursing Facility JADYN Cert Primary Insurance: [facility] MEDICARE SOLUTIONS Discharge Planning Comments: 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 She has all the DME (bipap, O2) and help she needs there and plans to return there when she is discharged. CM will continue to follow and assist as needed. Facing Baster: Dori Young DCPIA - Discharge Planning Initial Assessment Updated by [email or web address]: Dori Young on 02/13/20 2:25 pm * Is the patient Alert and Oriented? Yes * How many steps to enter\exit or inside your home? * PCP MARIA R * Pharmacy [facility] * Preadmission Environment Halfway Fdc * Facility Name [facility] * ADLs Partial Dependent * Partial ADLs (Assistance needed) Ambulation Bathing Dressing Medication Management Toileting * Other Equipment SHE HAS EVERYTHING SHE NEEDS AT THE [facility] * List name and contact numbers for known caregivers / representatives who currently or will assist patient after discharge: ALMA ALVAREZ [phone] * Verbal permission to speak to the caregivers and representatives has been obtained from the patient. N/A * Additional services required to return to the preadmission environment? No * Can the patient safely return to the preadmission environment? Yes * Has this patient been hospitalized within the prior 30 days at any hospital? Yes Last DP export: 02/13/20 1:30 p Patient Name: DOUGLAS HILLS Page [id number] at 1438 All edits/amendments must be made on the electronic document DICTATION DATE: 02/13/201436 LEASE ANALYST: CLEMENT 02/13/201436 RPT#: [id number] DC DATE: STATUS: ADM IN [facility] [address] [place] [address] END OF REPORT
[2020-02-13 16:00] VITALS: BP 118/58
[2020-02-13 20:00] VITALS: BP 117/59
[2020-02-14] VITALS: BP 127/63
[2020-02-14 04:00] VITALS: BP 122/60
[2020-02-14 09:18] VITALS: BP 122/62
[2020-02-14 13:21] VITALS: BP 127/42
--- NOTE | 2020-02-14 19:10 | NUR ---
RESTING WHEN ENTERING THE ROOM. AROUSES WHEN NAME CALLED. DENIES NEEDS AT THIS TIME. LEFT UPPER ARM MIDLINE INFUSING PER ORDER. HESS CATHETER IN PLACE. NGT TO RIGHT PINEDA. ASSESSMENT COMPLETE, SEE DOCUMENTATION. DENIES FURTHER NEEDS AT THIS TIME. CALL LIGHT CLOSE. CPOC.
--- NOTE | 2020-02-14 19:41 | NUR ---
PATIENT COMPLAINING AND MOANING. ASKING FOR PAIN MEDICATION. REASSESSED BLOOD PRESSURE CURRENTLY 108/52.
[2020-02-14 19:42] VITALS: BP 108/52
[2020-02-14 20:00] VITALS: BP 101/42
--- NOTE | 2020-02-14 20:00 | NUR ---
SPOKE WITH PATIENT ABOUT NPO STATUS. PATIENT VERBALIZES UNDERSTANDING. PROVIDED HEAT BACK TO KNEE FOR COMFORT. PATIENT STATES "THAT FEELS BETTER" DENIES FURTHER NEEDS AT THIS TIME. CALL LIGHT CLOSE. CPOC.
[2020-02-15] VITALS: BP 110/51
--- NOTE | 2020-02-15 01:30 | NUR ---
RESTING WITH NO SIGNS OR SYMPTOMS OF DISTRESS AT THIS TIME. CPOC.
--- NOTE | 2020-02-15 01:56 | NUR ---
HESS CARE PROVIDED PER PROTOCAL.
[2020-02-15 04:00] VITALS: BP 113/48
--- NOTE | 2020-02-15 05:21 | NUR ---
PATIENT PULLED OUT MIDLINE. 16CM CATH IN TACT.
[2020-02-15 06:00] LABS: BASOPHILS 0.1 % (0-2); EOSINOPHILS 1.4 % (0-7); HEMATOCRIT 40.1 % (36.0-48.0); HEMOGLOBIN 11.9 g/dL (12-16); IMMATURE GRANULOCYTES 0.7 % (0-5); LYMPHOCYTES 12.2 % (15-50); MCH 25.6 pg (26.0-34.0); MCHC 29.7 g/dL (31.0-37.0); MEAN PLATELET VOLUME 8.7 fL (7.4-10.4); MONOCYTES 8.3 % (2-11); NEUTROPHILS 77.3 % (40-80); RBC 4.64 10x6/uL (4.00-5.40); RDW 15.8 % (11.5-14.5)
[2020-02-15 06:15] LABS: MCV 86.4 fL (80.0-100.0); PLATELET COUNT 292 10x3/uL (130-400); WBC 17.6 10x3/uL (4.8-10.8)
[2020-02-15 06:34] LABS: ANION GAP 7.7 mmol/L (8-16); CALCIUM 10.3 mg/dL (8.5-10.1); CARBON DIOXIDE 39.7 mmol/L (21.0-32.0); CREATININE - SERUM 1.1 mg/dL (0.6-1.3); MAGNESIUM - SERUM 1.5 mg/dL (1.8-2.4); PHOSPHOROUS 3.8 mg/dL (2.5-4.9)
[2020-02-15 06:41] LABS: POTASSIUM - SERUM 2.4 mmol/L (3.5-5.1)
--- NOTE | 2020-02-15 06:45 | NUR ---
PAGED HEATING TECHNICIAN FOR DR. HECK TO NOTIFY OF CRITICAL POTASSIUM AND THAT PATIENT PULLED MIDLINE OUT.
[2020-02-15 09:38] VITALS: BP 140/61
[2020-02-15 12:59] VITALS: BP 136/56
[2020-02-15 15:50] VITALS: BP 122/66
--- NOTE | 2020-02-15 19:15 | NUR ---
ALERT AND ORIENTED WHEN ENTERING THE ROOM. CURRENTLY WEARING NASAL CANNULA. PATIENT HAS PIV TO THE RIGHT HAND. FINISHING K RIDERS PER ELECTROLYTE PROTOCAL. ASSISTED PATIENT WITH BED STOREY. SOFT BM. ASSESSMENT COMPELTED. BED ALARM ON. CALL LIGHT CLOSE. CPOC.
[2020-02-15 20:00] VITALS: BP 103/64
--- NOTE | 2020-02-15 22:45 | NUR ---
PHARMACY CALLED THIS NURSE. STATES FLUID FORMULA ENTERED AT 60 MEQ IN 1L NS INVALID. INSTRUCTED NURSE TO ADMINISTER 40 AND FOLLOW SAME ORDERS. CPOC.
--- NOTE | 2020-02-16 03:49 | NUR ---
LINES CHANGED PER POLICY PROTOCAL. CPOC.
[2020-02-16 04:00] VITALS: BP 106/54
[2020-02-16 05:42] LABS: BASOPHILS 0.1 % (0-2); EOSINOPHILS 1.7 % (0-7); HEMATOCRIT 38.3 % (36.0-48.0); HEMOGLOBIN 11.3 g/dL (12-16); IMMATURE GRANULOCYTES 0.7 % (0-5); LYMPHOCYTES 13.4 % (15-50); MCH 25.6 pg (26.0-34.0); MCHC 29.5 g/dL (31.0-37.0); MCV 86.7 fL (80.0-100.0); MEAN PLATELET VOLUME 8.9 fL (7.4-10.4); MONOCYTES 8.2 % (2-11); NEUTROPHILS 75.9 % (40-80); PLATELET COUNT 253 10x3/uL (130-400); RBC 4.42 10x6/uL (4.00-5.40); RDW 15.7 % (11.5-14.5); WBC 17.3 10x3/uL (4.8-10.8)
[2020-02-16 05:53] LABS: ANION GAP 8.7 mmol/L (8-16); CALCIUM 9.3 mg/dL (8.5-10.1); CARBON DIOXIDE 38.2 mmol/L (21.0-32.0); CREATININE - SERUM 1.1 mg/dL (0.6-1.3); PHOSPHOROUS 4.1 mg/dL (2.5-4.9)
[2020-02-16 05:55] LABS: MAGNESIUM - SERUM 2.1 mg/dL (1.8-2.4)
[2020-02-16 05:56] LABS: POTASSIUM - SERUM 2.9 mmol/L (3.5-5.1)
[2020-02-16 08:00] VITALS: BP 109/62
--- NOTE | 2020-02-16 09:45 | NUR ---
PT RECEIVING A BED BATH. CO OF PAIN 7 OUT OF 10. HESS CARE COMPLETED. FRESH LINENS PROVIDED. BED ALARM ON. FRESH STAT LOCK PROVIDED. CL IN REACH. WCTM
[2020-02-16 11:00] VITALS: BP 127/59
--- NOTE | 2020-02-16 12:07 | NUR ---
PT AWARE OF GASTRIC EMPTYING TOMORROW. WILL NOTIFY HER IT WILL BE AT 0800. UNDERSTAND NO PAIN MED AFTER 0200. UNDERSTAND NPO AFTER MIDNIGHT. CL IN REACH. WCTM
--- NOTE | 2020-02-16 12:20 | NUR ---
Nutrition follow-up: Pt has been NPO/Clear liquids since admit 2/2 N/V. NGT->LIWS Pt will be NPO after midnight for GES 02/16 Labs reviewed WT: 257# +BM Will need nutrition started within 24 hours if diet unable to advance past clear liquids RDN following.
[2020-02-16 16:40] VITALS: BP 113/44
[2020-02-16 20:00] VITALS: BP 109/41
[2020-02-17] VITALS: BP 120/60
[2020-02-17 04:00] VITALS: BP 103/35
--- NOTE | 2020-02-17 04:33 | NUR ---
REC'D. W[place] R[place] [facility] [place] IN BED HIGH FLOW 02 AT 4L.NO RESP DIFFICULTY OBSERVED AT PRESENT TIME. REINFORCED NPO MN AND NO PAIN MEDS AFTER TWO AM. VOICES UNDERSTANDING' HESS PATENT AND DRAINING STRAW YELLOW URINE.
--- NOTE | 2020-02-17 05:25 | NUR ---
I have reviewed this patient and I concur with the Shift Assessment completed by the Licensed Practical Nurse today this shift.
[2020-02-17 06:50] LABS: BASOPHILS 0.1 % (0-2); EOSINOPHILS 3.8 % (0-7); HEMATOCRIT 35.8 % (36.0-48.0); HEMOGLOBIN 10.5 g/dL (12-16); IMMATURE GRANULOCYTES 0.7 % (0-5); LYMPHOCYTES 15.4 % (15-50); MCH 25.4 pg (26.0-34.0); MCHC 29.3 g/dL (31.0-37.0); MCV 86.7 fL (80.0-100.0); MEAN PLATELET VOLUME 8.9 fL (7.4-10.4); MONOCYTES 8.6 % (2-11); NEUTROPHILS 71.4 % (40-80); PLATELET COUNT 241 10x3/uL (130-400); RBC 4.13 10x6/uL (4.00-5.40); RDW 15.5 % (11.5-14.5)
[2020-02-17 07:05] LABS: ANION GAP 8.5 mmol/L (8-16); CALCIUM 8.5 mg/dL (8.5-10.1); CREATININE - SERUM 0.9 mg/dL (0.6-1.3)
[2020-02-17 07:07] LABS: POTASSIUM - SERUM 3.5 mmol/L (3.5-5.1)
[2020-02-17 09:15] VITALS: BP 117/61
[2020-02-17 13:03] VITALS: BP 116/50
[2020-02-17 16:55] VITALS: BP 118/69
--- NOTE | 2020-02-17 18:25 | NUR ---
IV INFILTRATED TO LEFT HAND. RESITED IV TO LEFT FOREARM WITH 20G X 1 SITE. TOLERATED WELL.
[2020-02-17 19:17] VITALS: BP 117/97
--- NOTE | 2020-02-18 01:39 | NUR ---
I have reviewed this patient and I concur with the Shift Assessment completed by the Licensed Practical Nurse today this shift.
[2020-02-18 04:00] VITALS: BP 141/69
[2020-02-18 07:26] LABS: CALCIUM 8.8 mg/dL (8.5-10.1); CARBON DIOXIDE 30.9 mmol/L (21.0-32.0); CREATININE - SERUM 0.9 mg/dL (0.6-1.3); POTASSIUM - SERUM 3.9 mmol/L (3.5-5.1)
[2020-02-18 07:49] LABS: HEMOGLOBIN 11.5 g/dL (12-16); MCH 25.9 pg (26.0-34.0); MCHC 30.3 g/dL (31.0-37.0); MCV 85.6 fL (80.0-100.0); MEAN PLATELET VOLUME 10.1 fL (7.4-10.4); PLATELET COUNT 300 10x3/uL (130-400); RBC 4.44 10x6/uL (4.00-5.40); RDW 15.6 % (11.5-14.5); WBC 21.7 10x3/uL (4.8-10.8)
[2020-02-18 08:18] LABS: LYMPHOCYTES 21 % (15-50); MONOCYTES 2 % (2-11); NEUTROPHILS 76 % (40-80); PLATELET ESTIMATE NORMAL
[2020-02-18 08:45] VITALS: BP 111/53
[2020-02-18 13:06] VITALS: BP 102/57
[2020-02-18 16:33] VITALS: BP 124/53
[2020-02-18 20:00] VITALS: BP 104/65
[2020-02-19 04:00] VITALS: BP 124/52
--- NOTE | 2020-02-19 04:45 | NUR ---
I have reviewed this patient and I concur with the Shift Assessment completed by the Licensed Practical Nurse today this shift.
--- NOTE | 2020-02-19 10:16 | NUR ---
SHE IS ALERT, TALKING. SHE HAS A HESS. SHE IS WEARING 4 LITERS HIGH FLOW. THE CALL LIGHT IS WITHIN REACH.
[2020-02-19 10:59] VITALS: BP 132/63
[2020-02-19 13:16] VITALS: BP 123/63
--- NOTE | 2020-02-19 15:12 | NUR ---
IV REMOVED FROM THE RIGHT HAND, NEW IV 22 G STARTED TO THE LEFT UPPER ARM. IV MEDS GIVEN. THE CALL LIGHT IS WITHIN REACH.
[2020-02-19 18:02] VITALS: BP 112/59
[2020-02-19 20:00] VITALS: BP 128/52
[2020-02-20] VITALS: BP 125/54
--- NOTE | 2020-02-20 02:55 | NUR ---
ASSESSED AT THE BEGINNING OF THE SHIFT. PT IS ALERT AND ORIENTED, ABLE TO VERBALIZE NEEDS. DURING THE FIRST OF THE SHIFT SHE WAS ON HIGH FLOW AT 4 LITERS AND THEN AT BEDTIME AFTER MEDS SHE PUT ON HER BIPAP. SHE WAS GIVEN CHICKEN BROTH REQUESTED AND WAS TELLING THE NURSE THAT SHE WAS GOING ON A DIET WITH BROTH BECAUSE SHE LOVED IT SO MUCH. HER BLOOD SUGAR WAS 385 AND AND IT WAS TREATED. AT THIS TIME SHE IS RESTING QUIET AND APPEARS TO BE ASLEEP.
[2020-02-20 04:00] VITALS: BP 143/59
[2020-02-20 07:29] LABS: BASOPHILS 0.1 % (0-2); EOSINOPHILS 1.5 % (0-7); HEMATOCRIT 35.9 % (36.0-48.0); HEMOGLOBIN 10.7 g/dL (12-16); IMMATURE GRANULOCYTES 0.8 % (0-5); LYMPHOCYTES 19.7 % (15-50); MCHC 29.8 g/dL (31.0-37.0); MCV 87.1 fL (80.0-100.0); MEAN PLATELET VOLUME 8.7 fL (7.4-10.4); MONOCYTES 8.5 % (2-11); NEUTROPHILS 69.4 % (40-80); PLATELET COUNT 288 10x3/uL (130-400); RBC 4.12 10x6/uL (4.00-5.40); RDW 15.4 % (11.5-14.5); WBC 16.5 10x3/uL (4.8-10.8)
--- NOTE | 2020-02-20 07:36 | MORECARE ---
CASE MANAGEMENT DISCHARGE SUMMARY PATIENT: DOUGLAS HILLS UNIT: [id number] ADM DATE: 02/08/20 AGE: 54 : 63 SEX: F ROOM/BED: D.2203 AUTHOR: FROILANDOC PHYSICIAN: REFERRING PHYSICIAN: LIDIA HECK MD DATE OF SERVICE: 02/20/20 Discharge Plan Patient Name: DOUGLAS HILLS Facility: [facility]:[place] : 1965 Planned Disposition: Nursing Facility JADYN Cert Anticipated Discharge Date: Discharge Date: Expected LOS: Initial Reviewer: [email or web address] Initial Review Date: 02/08/2020 Generated: 02/20/20 8:35 am DCP- Discharge Planning Updated by [email or web address]: Dori Young on 02/13/20 1:[address] Patient Name: DOUGLAS HILLS Admission Status: ER Accout number: [id number] Admission Date: 02-08-2020 : 1965 Admission Diagnosis:PNEUMONIA, UNSPECIFIED ORGANISM Attending: LIDIA HECK Current LOS: 5 Anticipated DC Date: Planned Disposition: Nursing Facility J[facility]YN Cert Primary Insurance: [facility] MEDICARE SOLUTIONS Discharge Planning Comments: 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 She has all the DME (bipap, O2) and help she needs there and plans to return there when she is discharged. CM will continue to follow and assist as needed. Mold Loft Worker: Dori Young DCPIA - Discharge Planning Initial Assessment Updated by [email or web address]: Dori Young on 02/13/20 2:25 pm * Is the patient Alert and Oriented? Yes * How many steps to enter\exit or inside your home? * PCP MARIA R * Pharmacy [facility] * Preadmission Environment Media Consultant Outside Sales Shelter * Facility Name [facility] * ADLs Partial Dependent * Partial ADLs (Assistance needed) Ambulation Bathing Dressing Medication Management Toileting * Other Equipment SHE HAS EVERYTHING SHE NEEDS AT THE [facility] * List name and contact numbers for known caregivers / representatives who currently or will assist patient after discharge: ALMA ALVAREZ [phone] * Verbal permission to speak to the caregivers and representatives has been obtained from the patient. N/A * Additional services required to return to the preadmission environment? No * Can the patient safely return to the preadmission environment? Yes * Has this patient been hospitalized within the prior 30 days at any hospital? Yes External Providers [facility] Next Contact Date: Service Request Date: Service Type: Resolution: Reviewer: Comments: Last DP export: 02/13/20 1:38 p Patient Name: DOUGLAS HILLS Page 06230 at 0736 All edits/amendments must be made on the electronic document DICTATION DATE: 02/20/20734 MINERAL RESOURCES INSPECTOR: CLEMENT 02/20/20734 RPT#: [id number] DC DATE: STATUS: ADM IN [facility] [address] [place] [address] END OF REPORT
[2020-02-20 07:43] LABS: ANION GAP 6.6 mmol/L (8-16); CALCIUM 9.2 mg/dL (8.5-10.1); POTASSIUM - SERUM 3.6 mmol/L (3.5-5.1)
[2020-02-20] MEDS ORDERED: REGLAN5 MG PO (09:12)
--- NOTE | 2020-02-20 09:42 | NUR ---
PT SITTING UP IN BED A&O X4. PT DENIES PAIN. PIV IN LEFT UPPER ARM, PATENT, NO REDNESS OR SWELLING. O2 VIA HFNC 4L, SAT 96%. PT STATES SHE USES BIPAP AT NIGHT AT HOME. HESS IN PLACE, PATENT, CLR YELLOW URINE, STATLOCK IN PLACE. PT ABLE TO AMBULATE TO WITH ASSIST. BRUISES ON RIGHT UPPER ARM, BILAT HANDS. EDUCATED PT ON CL, VERBALIZED UNDERSTANDING. BED LOW, RAILS X2. CL IN REACH. WILL CONTINUE TO MONITOR.
[2020-02-20 09:46] VITALS: BP 124/42
--- NOTE | 2020-02-20 12:06 | MORECARE ---
CASE MANAGEMENT DISCHARGE SUMMARY PATIENT: DOUGLAS HILLS UNIT: [id number] ADM DATE: 02/08/20 AGE: 54 : 63 SEX: F ROOM/BED: D.2203 AUTHOR: FROILAN,DOC PHYSICIAN: REFERRING PHYSICIAN: LIDIA HECK MD DATE OF SERVICE: 02/20/20 Discharge Plan Patient Name: DOUGLAS HILLS Facility: [facility]:[place] : 1965 Planned Disposition: Nursing Facility [facility] Cert Anticipated Discharge Date: Discharge Date: Expected LOS: Initial Reviewer: [id number] Initial Review Date: 02/08/2020 Generated: 02/20/20 1:06 pm Comments DCP- Discharge Planning Updated by [email or web address]: Dori Young on 02/20/20 11:[address] Patient will be discharging back to the [facility] in a [facility] bed. She is a custodial resident. IMM served and explained. The [facility] will be transporting her DCP- Discharge Planning Updated by [email or web address]: Dori Young on 02/13/20 1:[address] Patient Name: DOUGLAS HILLS Admission Status: ER Accout number: [id number] Admission Date: 02-08-2020 : 1965 Admission Diagnosis:PNEUMONIA, UNSPECIFIED ORGANISM Attending: LIDIA HECK Current LOS: 5 Anticipated DC Date: Planned Disposition: Nursing Facility [facility] Cert Primary Insurance: [facility] MEDICARE SOLUTIONS Discharge Planning Comments: Patient is a [facility] resident at the [facility] . 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 She has all the DME (bipap, O2) and help she needs there and plans to return there when she is discharged. CM will continue to follow and assist as needed. Plant Supervisor: Dori Young DCPIA - Discharge Planning Initial Assessment Updated by [id number]: Dori Young on 02/13/20 2:25 pm * Is the patient Alert and Oriented? Yes * How many steps to enter\exit or inside your home? * PCP MARIA R * Pharmacy [facility] * Preadmission Environment Reinsurance Analyst Alf * Facility Name [facility] * ADLs Partial Dependent * Partial ADLs (Assistance needed) Ambulation Bathing Dressing Medication Management Toileting * Other Equipment SHE HAS EVERYTHING SHE NEEDS AT THE [facility] * List name and contact numbers for known caregivers / representatives who currently or will assist patient after discharge: ALMA ALVAREZ [phone] * Verbal permission to speak to the caregivers and representatives has been obtained from the patient. N/A * Additional services required to return to the preadmission environment? No * Can the patient safely return to the preadmission environment? Yes * Has this patient been hospitalized within the prior 30 days at any hospital? Yes Coverage Notice Reviewer: [email or web address] Bayron Young Notice Issued Date-Time: 02/20/2020 12:00 Notice Type: IM Discharge Notice Notice Delivered To: Patient Relationship to Patient: Apartment Rental Clerk Name: Delivery Method: HAND - Hand Delivered Adrianne Days: Prior Verbal Notification: Recipient Understood Notice: Yes Recipient Signature: Yes Med Rec Note Co-signed by Attending: Coverage Notice Comment: imm served and explained Last DP export: 02/20/20 6:36 a Patient Name: DOUGLAS HILLS Page [phone] at 1206 All edits/amendments must be made on the electronic document DICTATION DATE: 02/20/20 1206 MATERIALS ASSOCIATE: CLEMENT 02/20/20 1206 RPT#: [id number] DC DATE: STATUS: ADM IN [facility] [address] [place] [address] END OF REPORT
--- NOTE | 2020-02-20 12:42 | NUR ---
EDUCATED PT ON DISCHARGE INSTRUSTIONS, PT SIGNED PAPERWORK. D/C TO [facility]. ESCORTED VIA WHEELCHAIR TO FRONT ENTRANCE.
--- NOTE | 2020-02-20 16:58 | MORECARE ---
CASE MANAGEMENT DISCHARGE SUMMARY PATIENT: DOUGLAS HILLS UNIT: [id number] ADM DATE: 02/08/20 AGE: 54 : 63 SEX: F ROOM/BED: D.2203 AUTHOR: FROILAN,DOC PHYSICIAN: REFERRING PHYSICIAN: LIDIA HECK MD DATE OF SERVICE: 02/20/20 Discharge Plan Patient Name: DOUGLAS HILLS Facility: [facility]:[place] : 1965 Planned Disposition: Nursing Facility [facility] Cert Anticipated Discharge Date: Discharge Date: 02/20/2020 Expected LOS: Initial Reviewer: [email or web address] Initial Review Date: 02/08/2020 Generated: 02/20/20 5:57 pm Comments DCP- Discharge Planning Updated by [id number]: Dori Young on 02/20/20 11:[address] Patient will be discharging back to the [facility] in a [facility] bed. She is a [facility] resident. IMM served and explained. The 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 . 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 She has all the DME (bipap, O2) and help she needs there and plans to return there when she is discharged. CM will continue to follow and assist as needed. Locomotive Mechanic: Dori Young DCPIA - Discharge Planning Initial Assessment Updated by [email or web address]: Dori Young on 02/13/20 2:25 pm * Is the patient Alert and Oriented? Yes * How many steps to enter\exit or inside your home? * PCP MARIA R * Pharmacy [facility] * Preadmission Environment Senior Care Detention * Facility Name [facility] * ADLs Partial Dependent * Partial ADLs (Assistance needed) Ambulation Bathing Dressing Medication Management Toileting * Other Equipment SHE HAS EVERYTHING SHE NEEDS AT THE [facility] * List name and contact numbers for known caregivers / representatives who currently or will assist patient after discharge: ALMA ALVAREZ [phone] * Verbal permission to speak to the caregivers and representatives has been obtained from the patient. N/A * Additional services required to return to the preadmission environment? No * Can the patient safely return to the preadmission environment? Yes * Has this patient been hospitalized within the prior 30 days at any hospital? Yes Coverage Notice Reviewer: [id number] Bayron Young Notice Issued Date-Time: 02/20/2020 12:00 Notice Type: IM Discharge Notice Notice Delivered To: Patient Relationship to Patient: Hog Cooler Name: Delivery Method: HAND - Hand Delivered Adrianne Days: Prior Verbal Notification: Recipient Understood Notice: Yes Recipient Signature: Yes Med Rec Note Co-signed by Attending: Coverage Notice Comment: imm served and explained Last DP export: 02/20/20 11:06 a Patient Name: DOUGLAS HILLS Page 15837 at 1658 All edits/amendments must be made on the electronic document DICTATION DATE: 02/20/201656 SCREEN PRINT OPERATOR: CLEMENT 02/20/201656 RPT#: [id number] DC DATE:02/20/20 STATUS: DIS IN [facility] [address] [place] [address] END OF REPORT
== END 2020-02-20 12:44 | DRG 193 ==
LOC: D.ER 13:07 → D.MS 15:07
PROVIDERS: Emergency Medicine; Family Medicine; Internal Medicine Pulmonary Disease; ADMIT Legal Medicine; ATTEND Legal Medicine
PROC: 05HY33Z Insertion of Infusion Device into Upper Vein, Percutaneous Approach (ICD-10-PCS; principal; 2020-02-11)
DX: J18.9 Pneumonia, unspecified organism (principal); I50.33 Acute on chronic diastolic (congestive) heart failure; G93.41 Metabolic encephalopathy; J44.1 Chronic obstructive pulmonary disease with (acute) exacerbation; Z68.44 Body mass index [BMI] 60.0-69.9, adult; E11.9 Type 2 diabetes mellitus without complications; E66.01 Morbid (severe) obesity due to excess calories; D72.829 Elevated white blood cell count, unspecified; G89.29 Other chronic pain; I11.0 Hypertensive heart disease with heart failure; D50.9 Iron deficiency anemia, unspecified; E87.6 Hypokalemia; E78.5 Hyperlipidemia, unspecified; E03.9 Hypothyroidism, unspecified; R53.81 Other malaise; J30.9 Allergic rhinitis, unspecified

== ENCOUNTER 2020-03-01 00:27 | Inpatient (IN) | payer MEDICARE, MEDICAID ==
[2020-03-01] VITALS (23 sets, daily range): BP systolic 98–144; BP diastolic 45–94; Ht 152.4 cm; Wt 133.8 kg
[~2020-03-01] VITALS: Ht 152.4 cm; Wt 133.8 kg
[~2020-03-01 00:27] MED LIST changes: +NIZORAL 2 % SH120 ML TOPICAL; +REGLAN5 MG PO
[2020-03-01 01:08] LABS: BASOPHILS 0.1 % (0-2); EOSINOPHILS 2.4 % (0-7); HEMATOCRIT 31.8 % (36.0-48.0); HEMOGLOBIN 9.3 g/dL (12-16); IMMATURE GRANULOCYTES 1.4 % (0-5); LYMPHOCYTES 11.8 % (15-50); MCH 25.8 pg (26.0-34.0); MCHC 29.2 g/dL (31.0-37.0); MCV 88.3 fL (80.0-100.0); MEAN PLATELET VOLUME 8.6 fL (7.4-10.4); NEUTROPHILS 77.3 % (40-80); PLATELET COUNT 186 10x3/uL (130-400); RDW 14.7 % (11.5-14.5); WBC 15.2 10x3/uL (4.8-10.8)
[2020-03-01 01:14] LABS: APTT 27.3 SECONDS (22.8-39.4); INR 0.93 (0.85-1.17); PROTIME 12.5 SECONDS (11.6-15.0)
[2020-03-01 01:16] LABS: CALCIUM 8.4 mg/dL (8.5-10.1); CHLORIDE - SERUM 91 mmol/L (98-107); CREATININE - SERUM 1.2 mg/dL (0.6-1.3); SODIUM 137 mmol/L (136-145); UREA NITROGEN 30 mg/dL (7-18); eGFR NON AFRICAN AMERICAN 49 mL/min (90-120)
[2020-03-01 01:30] LABS: ALBUMIN 2.8 g/dL (3.4-5.0); ALKALINE PHOSPHATASE 111 U/L (30-120); ALT (SGPT) 17 U/L (10-68); BILIRUBIN - TOTAL 0.32 mg/dL (0.2-1.3); CKMB 0.8 U/L (0.0-3.6); CREATINE KINASE 130 UL (21-215); PRO BNP 613 pg/mL (0-125); PROTEIN - SERUM 6.8 g/dL (6.4-8.2)
[2020-03-01 01:33] LABS: CALC OSMOLALITY 294 mosm/kg (275-300); GLUCOSE 367 mg/dL (74-106)
[2020-03-01 01:34] LABS: CARBON DIOXIDE 51.7 mmol/L (21.0-32.0); TROPONIN-I < 0.017 ng/mL (0.000-0.060)
--- NOTE | 2020-03-01 14:43 | NUR ---
PT IS SOMEWHAT LETHARGIC. WILL CONTINUE BIPAP.
--- NOTE | 2020-03-01 16:41 | NUR ---
PT INTUBATED AND PLACED ON SEDATION. COVID NEGATIVE REMOVED FROM ISOLATION. 16 BANGLADESHI HESS PLACED. 16 BANGLADESHI OGT PLACED. WILL GET CXR FOR PLACEMENT.
--- NOTE | 2020-03-01 16:43 | NUR ---
TRIED TO CALL DAUGHTER FOR UPDATE NO ANSWERE.
[2020-03-02] VITALS (24 sets, daily range): BP systolic 85–136; BP diastolic 41–90
[2020-03-02 04:30] LABS: BASOPHILS 0 % (0-2); EOSINOPHILS 0 % (0-7); HEMATOCRIT 29.5 % (36.0-48.0); HEMOGLOBIN 8.6 g/dL (12-16); IMMATURE GRANULOCYTES 0.9 % (0-5); LYMPHOCYTES 8.9 % (15-50); MCH 25.3 pg (26.0-34.0); MCHC 29.2 g/dL (31.0-37.0); MCV 86.8 fL (80.0-100.0); MEAN PLATELET VOLUME 8.8 fL (7.4-10.4); MONOCYTES 8.6 % (2-11); NEUTROPHILS 81.6 % (40-80); PLATELET COUNT 179 10x3/uL (130-400); RDW 14.9 % (11.5-14.5)
[2020-03-02 04:36] LABS: WBC 9.8 10x3/uL (4.8-10.8)
[2020-03-02 04:51] LABS: ALBUMIN 2.6 g/dL (3.4-5.0); ALKALINE PHOSPHATASE 75 U/L (30-120); ALT (SGPT) 16 U/L (10-68); BILIRUBIN - TOTAL 0.36 mg/dL (0.2-1.3); CALCIUM 7.8 mg/dL (8.5-10.1); CHLORIDE - SERUM 94 mmol/L (98-107); CREATININE - SERUM 1.1 mg/dL (0.6-1.3); MAGNESIUM - SERUM 1.4 mg/dL (1.8-2.4); POTASSIUM - SERUM 3.1 mmol/L (3.5-5.1); PROTEIN - SERUM 6.3 g/dL (6.4-8.2); SODIUM 136 mmol/L (136-145); UREA NITROGEN 31 mg/dL (7-18); eGFR NON AFRICAN AMERICAN 55 mL/min (90-120)
[2020-03-02 05:06] LABS: CALC OSMOLALITY 297 mosm/kg (275-300); CARBON DIOXIDE 42.3 mmol/L (21.0-32.0); GLUCOSE 433 mg/dL (74-106); TROPONIN-I < 0.017 ng/mL (0.000-0.060)
--- NOTE | 2020-03-02 21:08 | NUR ---
1900 REPORT RECIEVED, SHIFT ASSESSMENT COMPLETE, PLEASE SEE FLOW SHEETS FOR DETAILS. PATIENT SELF TURNS. DENIES PAIN/NEEDS AT THIS TIME. HEMODYNAMICALLY STABLE AT THIS TIME. 2100 TOLERATED PO MEDS WELL WITH WATER. REQUESTED WARM BLANKET, THIS WAS PROVIDED. HEMODYNAMICALLY STABLE AT THIS TIME. WILL CONTINUE PLAN OF CARE.
--- NOTE | 2020-03-02 23:00 | NUR ---
REASSESSMENT COMPLETE, NO CHANGES NOTED. HEMODYNAMICALLY STABLE AT THIS TIME, WILL CONTINUE CURRENT PLAN OF CARE.
[2020-03-03] VITALS (14 sets, daily range): BP systolic 93–135; BP diastolic 38–79
[2020-03-03 04:30] LABS: BASOPHILS 0.1 % (0-2); EOSINOPHILS 2.6 % (0-7); HEMATOCRIT 30.2 % (36.0-48.0); HEMOGLOBIN 8.8 g/dL (12-16); IMMATURE GRANULOCYTES 0.5 % (0-5); LYMPHOCYTES 12.5 % (15-50); MCH 25.7 pg (26.0-34.0); MCHC 29.1 g/dL (31.0-37.0); MEAN PLATELET VOLUME 8.7 fL (7.4-10.4); MONOCYTES 5.8 % (2-11); NEUTROPHILS 78.5 % (40-80); PLATELET COUNT 168 10x3/uL (130-400); RBC 3.43 10x6/uL (4.00-5.40); RDW 15.3 % (11.5-14.5)
[2020-03-03 04:31] LABS: WBC 12.5 10x3/uL (4.8-10.8)
[2020-03-03 04:49] LABS: CREATININE - SERUM 0.9 mg/dL (0.6-1.3)
--- NOTE | 2020-03-03 05:00 | NUR ---
FULL BED BATH AND LINEN CHANGE PROVIDED. TOLERATED WELL. HEMODYNAMICALLY STABLE, WILL CONTINUE PLAN OF CARE.
[2020-03-03 05:11] LABS: ANION GAP 5.6 mmol/L (8-16)
[2020-03-03 05:13] LABS: CARBON DIOXIDE 44.2 mmol/L (21.0-32.0); POTASSIUM - SERUM 2.8 mmol/L (3.5-5.1)
--- NOTE | 2020-03-03 06:27 | NUR ---
0100 RESTING, VSS, WILL CONTINUE TO MONITOR. 0300 REASSESSMENT COMPLETE, NO CHANGES TO NOTE. WILL CONTINUE PLAN OF CARE.
--- NOTE | 2020-03-03 12:41 | NUR ---
Nutrition follow-up: Pt remains NPO after extubation 03/02 BIPAP 4 hrs on, 4 hrs off and PRN Labs reviewed WT: 295# Will need diet advanced to consistent CHO or nutrition support started within [address] RDN following.
--- NOTE | 2020-03-03 13:45 | NUR ---
LT UPPER ARM PICC LINE DRESSING CHANGED AT THIS TIME.
--- NOTE | 2020-03-03 15:18 | NUR ---
REPORT GIVEN TO Gallo DIAZ LPN. ROOM NOT READY AT THIS TIME; STAT CLEAN HAS BEEN CALLED FOR. MED 2 WILL NOTIFY WHEN ROOM IS READY.
--- NOTE | 2020-03-03 19:05 | NUR ---
REPORT RECEIVED, WILL CONT POC. PT ALERT AND ORIENTED, UP IN BED WATCHING TV. NO S/S OF DISTRESS OBSERVD. RR EVEN AND UNLABORED ON CONT BIPAP. PT DENIES NEEDS AT THIS TIME. CALL LIGHT IN REACH, BED LOCKED AND LOWERED. WILL CTM.
--- NOTE | 2020-03-04 07:25 | NUR ---
WALKING ROUNDS COMPLETE PT DENIES NEEDS AT THIS TIME, IV INFUSING WITHOUT DIFFICULTY, SITE CLEAR, O2 IN USE PER JIMENA BAILEY PATENT TO BSD, SR UP X2, CALL LIGHT IN REACH, BED LOW AND LOCKED, WILL CONTINUE TO MONITOR
[2020-03-04 08:00] VITALS: BP 138/81
--- NOTE | 2020-03-04 08:10 | NUR ---
TALKED WITH CLARA ABOUT PT HAVING GRAM POSITIVE COCCI IN BLOOD, NO NEW ORDERS NOTED
--- NOTE | 2020-03-04 09:39 | NUR ---
gave pt SCHEDULED MEDS, PT TOLERATED WELL, ASSISTED PT WITH BEDPAN, NO OTHER NEEDS VOICED, O2 IN USE PER NC, RESP EVEN AND UNLABORED, PT DENIES ANY OTHER NEEDS OR PAIN AT THIS TIME, SR UP X2, CALL LIGHT IN REACH, BED LOW AND LOCKED, WILL CONTINUE TO MONITOR,
[2020-03-04 11:00] VITALS: BP 106/60
--- NOTE | 2020-03-04 12:18 | NUR ---
gave pt norco for pain 03/01 in back, also gave scheduled meds, blood sugar 199, 4 units insulin givne, no other needs voiced, call light in reach, will monitor
--- NOTE | 2020-03-04 14:43 | NUR ---
PT JUST FINISHED BREATHING TREATMENT, PT DENIES ANY NEEDS AT THIS TIME, WILL MONITOR
[2020-03-04 15:00] VITALS: BP 121/46
--- NOTE | 2020-03-04 18:01 | NUR ---
GAVE PT NORCO 10MG PO FOR PAIN, RATES PAIN 8/10 IN BACK
--- NOTE | 2020-03-04 18:41 | NUR ---
REASSESSED PT PAIN RATES 2/10 IN BACK, BREATHING TREATMENT IN PROGRESS, NO OTHER NEEDS VOICED
[2020-03-04 20:00] VITALS: BP 128/78
[2020-03-05 04:06] VITALS: BP 122/72
--- NOTE | 2020-03-05 07:15 | NUR ---
RECEIVED PT IN BED EYES CLOSED RESP UNLABORED SKIN W/D COLOR WNL NAD NOTED
[2020-03-05 09:20] VITALS: BP 99/45
[2020-03-05 13:53] VITALS: BP 113/42
[2020-03-05 16:00] VITALS: BP 106/55
--- NOTE | 2020-03-05 17:45 | MORECARE ---
CASE MANAGEMENT DISCHARGE SUMMARY PATIENT: DOUGLAS HILLS UNIT: [id number] ADM DATE: 03/01/20 AGE: 54 : 63 SEX: F ROOM/BED: D.2109 AUTHOR: AMELIA MCGOVERN PHYSICIAN: REFERRING PHYSICIAN: LIDIA HECK MD DATE OF SERVICE: 03/05/20 Discharge Plan Patient Name: DOUGLAS HILLS Facility: [facility]:[place] : 1965 Planned Disposition: Anticipated Discharge Date: Discharge Date: Expected LOS: Initial Reviewer: [id number] Initial Review Date: 03/01/2020 Generated: 03/05/20 6:45 pm Patient Name: DOUGLAS HILLS Page 91915 at 9773 All edits/amendments must be made on the electronic document DICTATION DATE: 03/05/201744 RADIO ARTIST: CLEMENT 03/05/201744 RPT#: [id number] [place] DATE: STATUS: ADM IN [facility] [address] [place] [address] END OF REPORT
[2020-03-05 20:45] VITALS: BP 109/37
[2020-03-06] VITALS (7 sets, daily range): BP systolic 77–128; BP diastolic 26–43
[2020-03-06 06:32] LABS: ANION GAP 9.5 mmol/L (8-16); CALCIUM 7.8 mg/dL (8.5-10.1); CARBON DIOXIDE 31.9 mmol/L (21.0-32.0); CREATININE - SERUM 0.9 mg/dL (0.6-1.3); POTASSIUM - SERUM 3.4 mmol/L (3.5-5.1)
[2020-03-06 06:36] LABS: BASOPHILS 0.1 % (0-2); EOSINOPHILS 4.1 % (0-7); HEMATOCRIT 30.2 % (36.0-48.0); HEMOGLOBIN 8.9 g/dL (12-16); IMMATURE GRANULOCYTES 0.4 % (0-5); LYMPHOCYTES 11.6 % (15-50); MCH 25.9 pg (26.0-34.0); MCHC 29.5 g/dL (31.0-37.0); MCV 87.8 fL (80.0-100.0); MEAN PLATELET VOLUME 9.3 fL (7.4-10.4); MONOCYTES 4.1 % (2-11); NEUTROPHILS 79.7 % (40-80); PLATELET COUNT 196 10x3/uL (130-400); RBC 3.44 10x6/uL (4.00-5.40); RDW 15.6 % (11.5-14.5); WBC 12.7 10x3/uL (4.8-10.8)
--- NOTE | 2020-03-06 07:31 | NUR ---
PT ALERT AND OREINTED, LYING IN BED WATCHING TV. PT COMPLAINTS THAT HER YEAST INFECTION THAT WAS INHER FOLDS AND AROUDN HER VAGINA HAS SPREAD INSIDE HER VAGINA. STATES SHE NEEDS MEDICATIONS FOR IT WHEN THE DOCTOR COMES IN THE MORINING. WILL BRING UP TO THE POULTRY FARMER MEAT WHEN HE ROUNDS. NO OTHER COMPLAINTS OR CONCERNS AT THIS TIME. REQUESTS PAIN MEDS WITH MORNING MEDICATIONS. CL IN REACH, SRX2.
--- NOTE | 2020-03-06 09:23 | NUR ---
PT AWAKE AND ORIENTED, TOOK MEDICATIONS WITHOUT COMPLICATIONS. NO COMPLAINTS OR CONCERNS AT THIS TIME. CL INR EACH, SRX2.
--- NOTE | 2020-03-06 16:08 | NUR ---
PT AWAKE AND OREINTED, LYING IN BED WATCHING TELIVISION. NO COMPLAINTS OR CONCERNS AT THIS TIME. WILL CNT. TO MONITOR. CL IN REACH,S RX2.
[2020-03-07 08:00] VITALS: BP 147/51
[2020-03-07 12:00] VITALS: BP 92/42
--- NOTE | 2020-03-07 15:57 | NUR ---
PT AWAKE AND ORIENTED, PROVIDED PAIN MEDICATION. PT STATES SHE'LL BE DISCHARGING IN THE MORNING, PHYSICIAN NOTES STATE MUCH. PT STATES SHE IS HAPPY TO BE GOING HOME. WILL CNT. TO MONITOR. CL IN REACH, SRX2.
--- NOTE | 2020-03-07 15:59 | NUR ---
I have reviewed this patient and I concur with the Shift Assessment completed by the Licensed Practical Nurse today this shift.
[2020-03-07 16:00] VITALS: BP 91/50
--- NOTE | 2020-03-07 18:12 | NUR ---
PT AWAKE AND ORIENTED, LYING IN BED. PT MIDLINE BECAME RED AND WAS LEAKING AROUND THE SITE. TOOK OUT MIDLINE PER PROTOCOL. PT REFUSED FURTHER I/V PLACEMENT D/T DISCHARGE IN THE MORNING. PT HAS NO FURTHER IV MEDICAITONS DUE. CL IN REACH, SRX2.
--- NOTE | 2020-03-07 19:20 | NUR ---
RESTING WITH EYES CLOSED ON INITIAL ROUNDS BED LOW AND LOCKED CALL LIGHT IN REACH
[2020-03-07 20:45] VITALS: BP 90/54
[2020-03-08 01:40] VITALS: BP 105/22
--- NOTE | 2020-03-08 03:35 | NUR ---
PT IV IS OUT AND PT REFUSES RESTART VIB NOT GIVEN
[2020-03-08 05:40] LABS: BASOPHILS 0.1 % (0-2); EOSINOPHILS 4.4 % (0-7); HEMATOCRIT 30.5 % (36.0-48.0); HEMOGLOBIN 8.9 g/dL (12-16); IMMATURE GRANULOCYTES 0.7 % (0-5); LYMPHOCYTES 13.4 % (15-50); MCH 25.9 pg (26.0-34.0); MCHC 29.2 g/dL (31.0-37.0); MCV 88.7 fL (80.0-100.0); MEAN PLATELET VOLUME 9.1 fL (7.4-10.4); MONOCYTES 6.6 % (2-11); NEUTROPHILS 74.8 % (40-80); RBC 3.44 10x6/uL (4.00-5.40); RDW 15.8 % (11.5-14.5); WBC 9.8 10x3/uL (4.8-10.8)
[2020-03-08 05:56] LABS: PLATELET COUNT 339 10x3/uL (130-400)
--- NOTE | 2020-03-08 05:57 | NUR ---
I have reviewed this patient and I concur with the Shift Assessment completed by the Licensed Practical Nurse today this shift.
[2020-03-08 06:15] LABS: ALBUMIN 2.4 g/dL (3.4-5.0); ANION GAP 5.9 mmol/L (8-16); BILIRUBIN - TOTAL 0.31 mg/dL (0.2-1.3); CALCIUM 8.4 mg/dL (8.5-10.1); CARBON DIOXIDE 35.2 mmol/L (21.0-32.0); POTASSIUM - SERUM 3.1 mmol/L (3.5-5.1); PROTEIN - SERUM 6.7 g/dL (6.4-8.2)
[2020-03-08 07:06] VITALS: BP 104/97
--- NOTE | 2020-03-08 07:42 | NUR ---
PT AWAKE AND ORIENTED, LYING IN BED ON RIGHT SIDE. PT STATES SHE'S READY TO GO HOME TODAY. NO COMPLAINTS OR CONCERNS, CL IN REACH, SRX2.
[2020-03-08 08:00] VITALS: BP 131/78
--- NOTE | 2020-03-08 12:45 | MORECARE ---
CASE MANAGEMENT DISCHARGE SUMMARY PATIENT: DOUGLAS HILLS UNIT: [id number] ADM DATE: 03/01/20 AGE: 54 : 63 SEX: F ROOM/BED: D.2109 AUTHOR: AMELIA MCGOVERN PHYSICIAN: REFERRING PHYSICIAN: LIDIA HECK MD DATE OF SERVICE: 03/08/20 Discharge Plan Patient Name: DOUGLAS HILLS Facility: [facility]:[place] : 1965 Planned Disposition: Anticipated Discharge Date: Discharge Date: Expected LOS: Initial Reviewer: [email or web address] Initial Review Date: 03/01/2020 Generated: 03/08/20 1:44 pm Comments DCP- Discharge Planning Updated by [email or web address]: Georgette Head on 03/08/20 11:[address] Patient is a resident of [facility]. Last DP export: 03/05/20 4:45 p Patient Name: DOUGLAS HILLS Page 33751 at 1245 All edits/amendments must be made on the electronic document DICTATION DATE: 03/08/20 1244 BOAT CANVAS MAKER AND INSTALLER: CLEMENT 03/08/20 1244 RPT#: [id number] DC DATE: STATUS: ADM IN [facility] [address] [place] [address] END OF REPORT
--- NOTE | 2020-03-08 13:15 | MORECARE ---
CASE MANAGEMENT DISCHARGE SUMMARY PATIENT: DOUGLAS HILLS UNIT: [id number] ADM DATE: 03/01/20 AGE: 54 : 63 SEX: F ROOM/BED: D.2109 AUTHOR: AMELIA MCGOVERN PHYSICIAN: REFERRING PHYSICIAN: LIDIA HECK MD DATE OF SERVICE: 03/08/20 Discharge Plan Patient Name: DOUGLAS HILLS Facility: [facility]:[place] : 1965 Planned Disposition: Fpc Facility Anticipated Discharge Date: 03/08/20 Discharge Date: Expected LOS: 7 Initial Reviewer: [email or web address] Initial Review Date: 03/01/2020 Generated: 03/08/20 2:15 pm Comments DCP- Discharge Planning Updated by [email or web address]: Georgette Head on 03/08/20 11:[address] Patient is a resident of [facility]. External Providers External Provider: [facility] and [facility] Next Contact Date: Service Request Date: Service Type: Resolution: Reviewer: Comments: Last DP export: 03/08/20 11:45 a Patient Name: DOUGLAS HILLS Page [phone] at 1315 All edits/amendments must be made on the electronic document DICTATION DATE: 03/08/20 1315 INTERNAL COMBUSTION ENGINE ASSEMBLER: CLEMENT 03/08/20 1315 RPT#: [id number] DC DATE: STATUS: ADM IN [facility] [address] [place] [address] END OF REPORT
--- NOTE | 2020-03-08 14:18 | NUR ---
PT AWAKE AND OREINTED. DRESSED SELF. ESCORTED TO VAN VIA WHEELCHAIR. O2 ON.
--- NOTE | 2020-03-08 15:53 | MORECARE ---
CASE MANAGEMENT DISCHARGE SUMMARY PATIENT: DOUGLAS HILLS UNIT: [id number] ADM DATE: 03/01/20 AGE: 54 : 63 SEX: F ROOM/BED: D.2109 AUTHOR: AMELIA MCGOVERN PHYSICIAN: REFERRING PHYSICIAN: LIDIA HECK MD DATE OF SERVICE: 03/08/20 Discharge Plan Patient Name: DOUGLAS HILLS Facility: [facility]:[place] : 1965 Planned Disposition: Mcc Facility Anticipated Discharge Date: 03/08/20 Discharge Date: 03/08/2020 Expected LOS: 7 Initial Reviewer: [email or web address] Initial Review Date: 03/01/2020 Generated: 03/08/20 4:53 pm Comments DCP- Discharge Planning Updated by [email or web address]: Georgette Head on 03/08/20 11:[address] Patient is a resident of [facility]. Last DP export: 03/08/20 12:15 p Patient Name: DOUGLAS HILLS Page 62486 at 1553 All edits/amendments must be made on the electronic document DICTATION DATE: 03/08/201552 DIETETIC TECHNICIAN: CLEMENT 03/08/201552 RPT#: [id number] DC DATE:03/08/20 STATUS: DIS IN [address] [place] [address] END OF REPORT
--- NOTE | 2020-03-08 16:25 | MORECARE ---
CASE MANAGEMENT DISCHARGE SUMMARY PATIENT: DOUGLAS HILLS UNIT: [id number] ADM DATE: 03/01/20 AGE: 54 : 63 SEX: F ROOM/BED: D.2109 AUTHOR: AMELIA MCGOVERN PHYSICIAN: REFERRING PHYSICIAN: LIDIA HECK MD DATE OF SERVICE: 03/08/20 Discharge Plan Patient Name: DOUGLAS HILLS Facility: [facility]:[place] : 1965 Planned Disposition: Care Home Facility Anticipated Discharge Date: 03/08/20 Discharge Date: 03/08/2020 Expected LOS: 7 Initial Reviewer: [email or web address] Initial Review Date: 03/01/2020 Generated: 03/08/20 5:24 pm Comments DCP- Discharge Planning Updated by [email or web address]: Georgette Head on 03/08/20 11:[address] Patient is a resident of [facility]. Last DP export: 03/08/20 2:53 p Patient Name: DOUGLAS HILLS Page 55605 at 1625 All edits/amendments must be made on the electronic document DICTATION DATE: 03/08/201623 ASSURANCE ASSOCIATE: CLEMENT 03/08/201623 RPT#: [id number] DC DATE:03/08/20 STATUS: DIS IN [facility] [address] [place] [address] END OF REPORT
--- NOTE | 2020-03-08 16:32 | MORECARE ---
CASE MANAGEMENT DISCHARGE SUMMARY PATIENT: DOUGLAS HILLS UNIT: [id number] ADM DATE: 03/01/20 AGE: 54 : 63 SEX: F ROOM/BED: D.2109 AUTHOR: AMELIA MCGOVERN PHYSICIAN: REFERRING PHYSICIAN: LIDIA HECK MD DATE OF SERVICE: 03/08/20 Discharge Plan Patient Name: DOUGLAS HILLS Facility: [facility]:[place] : 1965 Planned Disposition: Fdc Facility Anticipated Discharge Date: 03/08/20 Discharge Date: 03/08/2020 Expected LOS: 7 Initial Reviewer: [email or web address] Initial Review Date: 03/01/2020 Generated: 03/08/20 5:31 pm Comments DCP- Discharge Planning Updated by [id number]: Georgette Head on 03/08/20 3:[address] CM faxed required requested information to Tiffani Anand and Susanne ([facility]) @[phone]. CM is unsure at this time of the type of bed the patient is returning to. Patient is a resident of [facility] and will return there upon DC, via van transport. Last DP export: 03/08/20 3:25 p Patient Name: DOUGLAS HILLS Page 78983 at 1632 All edits/amendments must be made on the electronic document DICTATION DATE: 03/08/20 1632 COIN BOX INSPECTOR: CLEMENT 03/08/20 1632 RPT#: [id number] DC DATE:03/08/20 STATUS: DIS IN [facility] [address] [place] [address] END OF REPORT
== END 2020-03-08 14:18 | DRG 208 ==
LOC: D.ER 00:27 → D.ICU 05:18 → D.M2 03-03 16:30
PROVIDERS: Family Medicine; Nurse Practitioner Adult Health; ADMIT Legal Medicine; ATTEND Legal Medicine
PROC: 5A1935Z Respiratory Ventilation, Less than 24 Consecutive Hours (ICD-10-PCS; principal; 2020-03-01)
PROC: 0BH17EZ Insertion of Endotracheal Airway into Trachea, Via Natural or Artificial Opening (ICD-10-PCS; 2020-03-01)
PROC: 05HY33Z Insertion of Infusion Device into Upper Vein, Percutaneous Approach (ICD-10-PCS; 2020-03-01)
DX: J96.22 Acute and chronic respiratory failure with hypercapnia (principal); I50.33 Acute on chronic diastolic (congestive) heart failure; G93.41 Metabolic encephalopathy; Z68.44 Body mass index [BMI] 60.0-69.9, adult; J96.21 Acute and chronic respiratory failure with hypoxia; I11.0 Hypertensive heart disease with heart failure; G47.33 Obstructive sleep apnea (adult) (pediatric); J30.9 Allergic rhinitis, unspecified; Z87.891 Personal history of nicotine dependence; E66.01 Morbid (severe) obesity due to excess calories; R53.81 Other malaise; E03.9 Hypothyroidism, unspecified; E78.5 Hyperlipidemia, unspecified; E11.9 Type 2 diabetes mellitus without complications; M54.9 Dorsalgia, unspecified; E87.6 Hypokalemia; D64.9 Anemia, unspecified; R00.0 Tachycardia, unspecified; Z91.19 Patient's noncompliance with other medical treatment and regimen; D72.829 Elevated white blood cell count, unspecified; J44.9 Chronic obstructive pulmonary disease, unspecified

== ENCOUNTER 2020-03-24 08:51 | Emergency (ER) | payer MEDICARE, MEDICAID ==
[~2020-03-24] VITALS: Ht 152.4 cm; Wt 156.4 kg
[2020-03-24 08:53] VITALS: Ht 152.4 cm; Wt 156.4 kg
[2020-03-24 09:38] LABS: BASOPHILS 0.1 % (0-2); EOSINOPHILS 2.1 % (0-7); HEMATOCRIT 34.5 % (36.0-48.0); HEMOGLOBIN 10.1 g/dL (12-16); IMMATURE GRANULOCYTES 0.8 % (0-5); LYMPHOCYTES 14.7 % (15-50); MCHC 29.3 g/dL (31.0-37.0); MCV 88.9 fL (80.0-100.0); MEAN PLATELET VOLUME 9.1 fL (7.4-10.4); MONOCYTES 8.2 % (2-11); NEUTROPHILS 74.1 % (40-80); RBC 3.88 10x6/uL (4.00-5.40); RDW 15.3 % (11.5-14.5); WBC 13.1 10x3/uL (4.8-10.8)
[2020-03-24 09:39] LABS: PLATELET COUNT 223 10x3/uL (130-400)
[2020-03-24 09:49] LABS: APTT 27.4 SECONDS (22.8-39.4); INR 1.01 (0.85-1.17); PROTIME 13.2 SECONDS (11.6-15.0)
[2020-03-24 09:51] LABS: D-DIMER-QUANTITATIVE 0.45 ug/mLFEU (0.20-0.54)
[2020-03-24 10:02] LABS: ALBUMIN 3.1 g/dL (3.4-5.0); ALKALINE PHOSPHATASE 81 U/L (30-120); ALT (SGPT) 15 U/L (10-68); BILIRUBIN - TOTAL 0.28 mg/dL (0.2-1.3); CALC OSMOLALITY 292 mosm/kg (275-300); CALCIUM 8.9 mg/dL (8.5-10.1); CHLORIDE - SERUM 94 mmol/L (98-107); CKMB 0.6 U/L (0.0-3.6); CREATINE KINASE 28 UL (21-215); CREATININE - SERUM 1.2 mg/dL (0.6-1.3); GLUCOSE 235 mg/dL (74-106); POTASSIUM - SERUM 3.6 mmol/L (3.5-5.1); PRO BNP 58 pg/mL (0-125); PROTEIN - SERUM 7.4 g/dL (6.4-8.2); SODIUM 139 mmol/L (136-145); TROPONIN-I < 0.017 ng/mL (0.000-0.060); UREA NITROGEN 32 mg/dL (7-18); eGFR NON AFRICAN AMERICAN 49 mL/min (90-120)
[2020-03-24 10:04] LABS: CARBON DIOXIDE 42.8 mmol/L (21.0-32.0)
[2020-03-24] MEDS ORDERED: LANTUS INS100 UNITS/ SC (10:05)
[2020-03-24 12:20] VITALS: BP 136/48
== END 2020-03-24 12:20 ==
LOC: D.ER 08:51
PROVIDERS: Family Medicine
DX: J44.9 Chronic obstructive pulmonary disease, unspecified (principal); J96.12 Chronic respiratory failure with hypercapnia; G47.33 Obstructive sleep apnea (adult) (pediatric); E11.9 Type 2 diabetes mellitus without complications; Z79.84 Long term (current) use of oral hypoglycemic drugs; I50.9 Heart failure, unspecified; I10 Essential (primary) hypertension; I25.10 Atherosclerotic heart disease of native coronary artery without angina pectoris; J45.909 Unspecified asthma, uncomplicated

== ENCOUNTER 2020-03-30 14:09 | Inpatient (IN) | payer MEDICARE, MEDICAID ==
[~2020-03-30] VITALS: Ht 152.4 cm; Wt 157.9 kg
[~2020-03-30 14:09] MED LIST changes: +LANTUS INS100 UNITS/ SC
--- NOTE | 2020-03-30 14:21 | NUR ---
RT AT BEDSIDE.
[2020-03-30 14:22] VITALS: BP 154/80
[2020-03-30 14:27] LABS: BASOPHILS 0.1 % (0-2); EOSINOPHILS 2.2 % (0-7); HEMATOCRIT 33.9 % (36.0-48.0); HEMOGLOBIN 9.6 g/dL (12-16); IMMATURE GRANULOCYTES 1.7 % (0-5); LYMPHOCYTES 11.9 % (15-50); MCH 25.9 pg (26.0-34.0); MCHC 28.3 g/dL (31.0-37.0); MCV 91.4 fL (80.0-100.0); MEAN PLATELET VOLUME 8.7 fL (7.4-10.4); MONOCYTES 9.3 % (2-11); NEUTROPHILS 74.8 % (40-80); PLATELET COUNT 246 10x3/uL (130-400); RBC 3.71 10x6/uL (4.00-5.40); RDW 15.4 % (11.5-14.5); WBC 13.6 10x3/uL (4.8-10.8)
[2020-03-30 14:39] LABS: CALC OSMOLALITY 293 mosm/kg (275-300); CALCIUM 9.1 mg/dL (8.5-10.1); CHLORIDE - SERUM 96 mmol/L (98-107); CREATININE - SERUM 0.9 mg/dL (0.6-1.3); GLUCOSE 247 mg/dL (74-106); POTASSIUM - SERUM 3.7 mmol/L (3.5-5.1); SODIUM 142 mmol/L (136-145); UREA NITROGEN 22 mg/dL (7-18); eGFR NON AFRICAN AMERICAN 69 mL/min (90-120)
[2020-03-30 14:40] LABS: APTT 27.1 SECONDS (22.8-39.4); INR 0.95 (0.85-1.17); PROTIME 12.7 SECONDS (11.6-15.0)
[2020-03-30 14:51] LABS: ALKALINE PHOSPHATASE 95 U/L (30-120); ALT (SGPT) 23 U/L (10-68); BILIRUBIN - TOTAL 0.27 mg/dL (0.2-1.3); CKMB 1.4 U/L (0.0-3.6); CREATINE KINASE 25 UL (21-215); PRO BNP 736 pg/mL (0-125); PROTEIN - SERUM 7.3 g/dL (6.4-8.2)
[2020-03-30 15:03] VITALS: BP 135/72
[2020-03-30 15:23] LABS: TROPONIN-I < 0.017 ng/mL (0.000-0.060)
[2020-03-30 15:34] LABS: MAGNESIUM - SERUM 1.5 mg/dL (1.8-2.4); THYROID STIMULATING HORMONE 1.18 uIU/mL (0.36-3.74)
--- NOTE | 2020-03-30 15:36 | NUR ---
PHARMACY CALLED FOR BUMEX DRIP
[2020-03-30 15:43] VITALS: BP 152/62
[2020-03-30 16:39] VITALS: BP 142/62
--- NOTE | 2020-03-30 18:01 | NUR ---
FSBS= 222 MG/DL
[2020-03-30 18:44] VITALS: BP 128/109
[2020-03-30 20:07] VITALS: BP 146/77
--- NOTE | 2020-03-30 22:30 | NUR ---
PATIENT TO THE FLOOR, 6 NURSE TRANSFER TO NEW BED. PATIENT TOLERATED WELL. COVID TEST WAS COLLECTED IN ER PER JESSICA FRY. PATIENT ASKED FOR ICEWATER, WAS GIVEN. RIGHT WRIST PIV THAT IS PATENT AND RUNNING FLUIDS AT THIS TIME.
[2020-03-31] VITALS: BP 145/62
[2020-03-31 04:00] VITALS: BP 118/53; BP 122/56
[2020-03-31 06:49] LABS: HEMOGLOBIN 9.8 g/dL (12-16); MCH 26.1 pg (26.0-34.0); MCHC 28.8 g/dL (31.0-37.0); MCV 90.4 fL (80.0-100.0); MEAN PLATELET VOLUME 9.1 fL (7.4-10.4); PLATELET COUNT 289 10x3/uL (130-400); RBC 3.76 10x6/uL (4.00-5.40); RDW 15.1 % (11.5-14.5); WBC 12.9 10x3/uL (4.8-10.8)
[2020-03-31 06:53] LABS: CALCIUM 9.4 mg/dL (8.5-10.1)
[2020-03-31 07:39] LABS: ANION GAP 4.5 mmol/L (8-16)
[2020-03-31 07:41] LABS: CARBON DIOXIDE 48.4 mmol/L (21.0-32.0); POTASSIUM - SERUM 2.9 mmol/L (3.5-5.1)
[2020-03-31 07:42] VITALS: BP 98/53
[2020-03-31 07:42] LABS: LYMPHOCYTES 10 % (15-50); MONOCYTES 6 % (2-11); NEUTROPHILS 81 % (40-80); PLATELET ESTIMATE NORMAL
--- NOTE | 2020-03-31 09:00 | NUR ---
PT WET FROM INCONTINENCE. PUREWICK NOT MOVING URINE. REPOSITIONED AND LINENS CHANGED, PT BATHED.
[2020-03-31 10:23] VITALS: Ht 152.4 cm; Wt 157.9 kg
--- NOTE | 2020-03-31 10:58 | NUR ---
PT SWITCHED TO BARIATRIC BED WITH ASSIST X4. PUREWICK IN PLACE.
[2020-03-31 11:29] VITALS: BP 117/45
--- NOTE | 2020-03-31 14:20 | MORECARE ---
CASE MANAGEMENT DISCHARGE SUMMARY PATIENT: DOUGLAS HILLS UNIT: [id number] ADM DATE: 03/30/20 AGE: 54 : 63 SEX: F ROOM/BED: D.2101 AUTHOR: AMELIA MCGOVERN PHYSICIAN: REFERRING PHYSICIAN: FLETCHER MCKENZIE MD DATE OF SERVICE: 03/31/20 Discharge Plan Patient Name: DOUGLAS HILLS Facility: [facility]:[place] : 1965 Planned Disposition: Nursing Facility [facility] Cert Anticipated Discharge Date: Discharge Date: Expected LOS: Initial Reviewer: [email or web address] Initial Review Date: 03/31/2020 Generated: 03/31/20 3:20 pm External Providers External Provider: [facility] Next Contact Date: Service Request Date: Service Type: Resolution: Reviewer: Comments: Patient Name: DOUGLAS HILLS Page 10250 at 1420 All edits/amendments must be made on the electronic document DICTATION DATE: 03/31/20 1420 SOLAR SALES ADVISOR: CLEMENT 03/31/20 1420 RPT#: [id number] [place] DATE: STATUS: ADM IN [facility] [address] [place] [address] END OF REPORT
--- NOTE | 2020-03-31 14:36 | MORECARE ---
CASE MANAGEMENT DISCHARGE SUMMARY PATIENT: DOUGLAS HILLS UNIT: [id number] ADM DATE: 03/30/20 AGE: 54 : 63 SEX: F ROOM/BED: D.2101 AUTHOR: FROILAN,DOC PHYSICIAN: REFERRING PHYSICIAN: FLETCHER MCKENZIE MD DATE OF SERVICE: 03/31/20 Discharge Plan Patient Name: DOUGLAS HILLS Facility: [facility]:[place] : 1965 Planned Disposition: Nursing Facility [facility] Cert Anticipated Discharge Date: Discharge Date: Expected LOS: Initial Reviewer: [email or web address] Initial Review Date: 03/31/2020 Generated: 03/31/20 3:35 pm Comments DCP- Discharge Planning Updated by [email or web address]: Thelma Yusuf on 03/31/20 1:[address] Patient Name: DOUGLAS HILLS Admission Status: ER Accout number: [id number] Admission Date: 03-30-2020 : 1965 Admission Diagnosis:SHORTNESS OF BREATH Attending: MANUELITO Current LOS: 1 Anticipated DC Date: Planned Disposition: Nursing Facility J[facility]YN Cert Primary Insurance: [facility] MEDICARE SOLUTIONS Discharge Planning Comments: CM met with patient to complete initial dc planning assessment. CM educated patient on the CM role and verbal consent given by patient to complete assessment. Patient lives at [facility] in a intermediate bed. At discharge patient plans to return and feels this is a safe discharge. She wears oxygen 24/7 at [facility], states she is unsure how many liters she wears. Denies noncompliance with wearing her BIPAP. I called Sandhya with [facility] and Sandhya states the reason her Trilogy was taken back by insurance was because she was noncompliant with wearing it. I informed the patient that she needed to wear her Bipap as ordered to keep her from having repeated hospitalizations. CM will continue to follow and will assist as needed with dc plans/needs. Credit Office Manager: Thelma Yusuf DCPIA - Discharge Planning Initial Assessment Updated by [email or web address]: Thelma Yusuf on 03/31/20 2:20 pm * Is the patient Alert and Oriented? Yes * How many steps to enter\exit or inside your home? 0/0 * PCP Bharany * Pharmacy [facility] * Preadmission Environment [facility] * Facility Name [facility] * ADLs Partial Dependent * Partial ADLs (Assistance needed) Ambulation Bathing Dressing Medication Management Toileting Transfers * Other Equipment All equipment from the [facility], including oxygen and CPAP * List name and contact numbers for known caregivers / representatives who currently or will assist patient after discharge: Delfina Li [facility] - [phone] * Verbal permission to speak to the caregivers and representatives has been obtained from the patient. Yes * Community resources currently utilized None * Additional services required to return to the preadmission environment? No * Can the patient safely return to the preadmission environment? Yes * Has this patient been hospitalized within the prior 30 days at any hospital? Yes Last DP export: 03/31/20 1:20 pm Patient Name: DOUGLAS HILLS Page 89547 at 1436 All edits/amendments must be made on the electronic document DICTATION DATE: 03/31/20 1435 KEYMODULE ASSEMBLY SUPERVISOR: CLEMENT 03/31/20 1435 RPT#: [id number] DC DATE: STATUS: ADM IN [facility] [address] [place] [address] END OF REPORT
[2020-03-31 15:30] VITALS: BP 111/49
[2020-03-31 21:11] VITALS: BP 111/48
--- NOTE | 2020-03-31 21:20 | NUR ---
CALLED RESPIRATORY TO INITIATED PT BIPAP. PT ALERT BUT CONFUSED X2. O2 SAT 92% VITALS STABLE AT THIS TIME. BED LOW CALL LIGHT WITHIN REACH WILL CONTINUE TO MONITOR.
[2020-04-01] VITALS: BP 110/63
--- NOTE | 2020-04-01 01:40 | NUR ---
I have reviewed this patient and I concur with the Shift Assessment completed by the Licensed Practical Nurse today this shift.
[2020-04-01 04:00] VITALS: BP 100/57
--- NOTE | 2020-04-01 05:22 | NUR ---
PT RESTING IN BED WITH BIPAP ON AT THIS TIME. NO S/S OF DISTRESS RR EVEN AND UNLABORED. BED LOW CALL LIGHT WITHIN REACH. WILL CONTINUE TO MONITOR.
[2020-04-01 07:08] LABS: BASOPHILS 0.2 % (0-2); EOSINOPHILS 2.3 % (0-7); HEMATOCRIT 37.3 % (36.0-48.0); HEMOGLOBIN 10.7 g/dL (12-16); IMMATURE GRANULOCYTES 1.3 % (0-5); LYMPHOCYTES 15.5 % (15-50); MCH 25.8 pg (26.0-34.0); MCHC 28.7 g/dL (31.0-37.0); MCV 89.9 fL (80.0-100.0); MEAN PLATELET VOLUME 8.7 fL (7.4-10.4); MONOCYTES 11.9 % (2-11); NEUTROPHILS 68.8 % (40-80); PLATELET COUNT 269 10x3/uL (130-400); RBC 4.15 10x6/uL (4.00-5.40); RDW 15.5 % (11.5-14.5); WBC 12.4 10x3/uL (4.8-10.8)
--- NOTE | 2020-04-01 07:20 | NUR ---
RECIEVE REPORT. ALERT AND CONFUSED X3. RESTING IN BED. YELLING OUT FOR HELP. WHEN ASKED WHAT'S NEEDED PATIENT REPLIES, "I NEED WATER." ASSIST WITH WATER. NO SIGNS OF DISTRESS. FOLLOW ELECTROLYTE PROTOCOL REPLACE POTASSIUM. CONTINUE PLAN OF CARE AND SAFETY PRECAUTIONS.
[2020-04-01 07:56] LABS: CALCIUM 9.4 mg/dL (8.5-10.1)
[2020-04-01 08:01] VITALS: BP 106/54
[2020-04-01 08:13] LABS: ANION GAP 2.5 mmol/L (8-16)
[2020-04-01 08:19] LABS: CARBON DIOXIDE 52.2 mmol/L (21.0-32.0); POTASSIUM - SERUM 2.7 mmol/L (3.5-5.1)
[2020-04-01 13:28] VITALS: BP 110/80
[2020-04-01 16:50] VITALS: BP 101/51
--- NOTE | 2020-04-01 20:00 | NUR ---
PT PLACED ON BIPAP BY RT. PT CONFUSED AT THIS TIME. NO S/S OF DISTRESS.VITALS STABLE. BED LOW CALL LIGHT WITHIN REACH. WILL CONTINUE TO MONITOR.
[2020-04-01 21:26] VITALS: BP 102/48
[2020-04-02] VITALS: BP 106/73
[2020-04-02 04:02] VITALS: BP 124/73
--- NOTE | 2020-04-02 04:26 | NUR ---
I have reviewed this patient and I concur with the Shift Assessment completed by the Licensed Practical Nurse today this shift.
--- NOTE | 2020-04-02 04:43 | NUR ---
PT A/O X4 OF BIPAP AT THIS TIME. BED BATH GIVEN AT THIS TIME. PT HAS HAD 2400ML OUT PUT THIS PM. PT COMPLAING OF PAIN 03/01 PRN TYLENOL GIVEN. PT REQUESTING HER NARCO 10. WILL NOTIFY EDGAR CARDONA. PT SITTING UP IN BED WITH VITALS STABLES NO S/S OF DISTRESS AT THIS TIME. BED LOW CALL LIGHT WITHIN REACH. WILL CONTINUE TO MONITOR.
[2020-04-02] MEDS ORDERED: HYDROCODON-ACE1 EA10 PO (06:50)
[2020-04-02] MEDS ORDERED: NYSTATIN1 PWD TOPICAL (06:57)
[2020-04-02 07:58] VITALS: BP 112/50
--- NOTE | 2020-04-02 07:59 | NUR ---
AM ROUNDING DONE WITH PATIENT ON BARIATRIC AIR BED. OBESE. ON 4L PER NC. RIGHT WRIST WITH BUMEX INFUSING AT 5 CC/HR. PURWICK IN PLACE. ASSISTED TO BEDPAN AND CLEANED UP FROM LARGE BROWN FORMED STOOL. BIPAP IN ROOM. YEASTY AREAS SEEN UNDER BREAST, NYSTOP HAS BEEN ORDERD BY NOT HERE YET. CALL LIGHT IN USE.
--- NOTE | 2020-04-02 09:59 | NUR ---
CLEANED UP AGAIN FOR STOOL.
[2020-04-02 11:53] VITALS: BP 108/44
--- NOTE | 2020-04-02 11:54 | NUR ---
POC GLUCOSE IS 246, COVERED WITH 8 U OF INSULIN PER SLIDING SCALE.
[2020-04-02 12:27] LABS: HEMATOCRIT 38.1 % (36.0-48.0); HEMOGLOBIN 11.4 g/dL (12-16); LYMPHOCYTES 12.3 % (15-50); MCH 27.3 pg (26.0-34.0); MCHC 29.9 g/dL (31.0-37.0); MCV 91.4 fL (80.0-100.0); MEAN PLATELET VOLUME 8.6 fL (7.4-10.4); NEUTROPHILS 77.9 % (40-80); PLATELET COUNT 298 10x3/uL (130-400); RBC 4.17 10x6/uL (4.00-5.40); RDW 15.2 % (11.5-14.5)
[2020-04-02 12:28] LABS: WBC 18.8 10x3/uL (4.8-10.8)
--- NOTE | 2020-04-02 12:33 | NUR ---
CLEANED UP FROM INCONT. OF URINE.
--- NOTE | 2020-04-02 12:56 | NUR ---
WANTS TO BE OB BIPAP, PLACED HER ON IT.
--- NOTE | 2020-04-02 13:19 | NUR ---
Nutrition Follow-up: Diet: Diabetic, 2GM Na, 2000 arnaldo PO intake: ~36% average x last 7 meals. She reports an "okay" appetite. States that she ate good for lunch, tray had already been taken at time of my visit and no PO info recorded on door. Last BM: 03/31/20. Wt: 347# (03/31/20) Meds noted: k-dur, micro-k, lantus, SSI, bumex Labs noted (04/01/20): K 2.7(L), Glu 184(H), POC Glu 188(H)-04/02/20 Recommend continue current diet. Enocuraged PO intake. Moderate weight loss of ~2#/week is appropriate for this patient. RD following.
[2020-04-02 13:21] LABS: CALCIUM 8.4 mg/dL (8.5-10.1); CHLORIDE - SERUM 87 mmol/L (98-107); GLUCOSE 177 mg/dL (74-106); SODIUM 134 mmol/L (136-145)
[2020-04-02 13:34] LABS: CALC OSMOLALITY 284 mosm/kg (275-300); CREATININE - SERUM 1.4 mg/dL (0.6-1.3); UREA NITROGEN 48 mg/dL (7-18); eGFR NON AFRICAN AMERICAN 41 mL/min (90-120)
--- NOTE | 2020-04-02 13:38 | NUR ---
WALKED INTO ROOM I HEARD THE BIPAP BEEPING. SHE HAD PULLED IT OFF AND HAD NO O2 ON. PULSE OX WAS 88%. PLACED ON NC AND INSTRUCTED TO TAKE SOME DEEP BREATHS, SAT UP TO 96%. INSTRUCTED TO LEAVE O2 ON. ON BACK WATCHING TV NOW.
[2020-04-02 13:39] LABS: CARBON DIOXIDE 52.8 mmol/L (21.0-32.0)
[2020-04-02 16:07] VITALS: BP 109/54
--- NOTE | 2020-04-02 16:39 | NUR ---
POC GLUCOSE IS 195, COVERED WITH 4 UNITS PER SLIDING SCALE
--- NOTE | 2020-04-02 19:00 | NUR ---
REPORT RECEIVED, WILL CONTINUE POC. PATIENT IS AAOX4, LYING IN BED. NO S/S OF DISTRESS OBSERVED, RR EVEN AND UNLABORED ON 4L O2 VIA NC, RT AT BEDSIDE ADMINISTERED BREATHING TX. PIV TO RT HAND, PATENT, INFUSING BUMEX @ 5ML/HR. PATIENT DENIES FURTHER NEEDS AT THIS TIME. CL IN REACH, BED LOCKED AND LOWERED. WILL CTM.
--- NOTE | 2020-04-02 19:49 | NUR ---
ASSISTED AUXILIARY ENGINEER WITH COMPLETE BED CHANGED AND SOHAIL CARE, NYSTATIN POWDER APPLIED TO BREAST AND ABDOMINAL FOLDS. PUREWICK CHANGED. PATIENT REQUESTING PAIN PILL WITH HS MEDS.
[2020-04-02 22:07] VITALS: BP 111/56
[2020-04-03 02:07] VITALS: BP 104/55
--- NOTE | 2020-04-03 04:07 | NUR ---
I have reviewed this patient and I concur with the Shift Assessment completed by the Licensed Practical Nurse today this shift.
[2020-04-03 05:44] LABS: BASOPHILS 0.1 % (0-2); EOSINOPHILS 2.2 % (0-7); HEMATOCRIT 37.6 % (36.0-48.0); IMMATURE GRANULOCYTES 0.8 % (0-5); LYMPHOCYTES 11.4 % (15-50); MCH 25.8 pg (26.0-34.0); MCHC 29.3 g/dL (31.0-37.0); MEAN PLATELET VOLUME 8.8 fL (7.4-10.4); NEUTROPHILS 78.5 % (40-80); PLATELET COUNT 289 10x3/uL (130-400); RBC 4.26 10x6/uL (4.00-5.40); RDW 15.6 % (11.5-14.5); WBC 15.3 10x3/uL (4.8-10.8)
[2020-04-03 05:48] LABS: MCV 88.3 fL (80.0-100.0)
[2020-04-03 05:51] VITALS: BP 100/40
[2020-04-03 06:07] LABS: CALCIUM 8.9 mg/dL (8.5-10.1); CREATININE - SERUM 1.2 mg/dL (0.6-1.3)
[2020-04-03 06:10] LABS: ANION GAP 8.5 mmol/L (8-16); CARBON DIOXIDE 45.3 mmol/L (21.0-32.0); POTASSIUM - SERUM 2.8 mmol/L (3.5-5.1)
[2020-04-03 07:00] VITALS: BP 127/48
[2020-04-03 11:00] VITALS: BP 116/54
[2020-04-03 15:00] VITALS: BP 105/50
--- NOTE | 2020-04-03 18:24 | NUR ---
PT AWAKE AND ORIENTED THROUGHOUT THE DAY. EMPTIED URINE CONTAINOR, 1000 OUT. PT HAS BEEN ON THE CALL LIGHT ALL DAY, EVERY 5-15 MINUTES. MULTIPLE MINOR, EASILY RESOLVED COMPLAINTS ABOUT WANTS OR NEEDS. CL IN REACH, SRX2.
--- NOTE | 2020-04-03 19:05 | NUR ---
PATIENT ALERT AND ORIENTED. ASSESSMENT PERFORMED. DENIES NEEDS AT THIS TIME. CALL LIGHT CLOSE. CPOC.
--- NOTE | 2020-04-03 19:24 | NUR ---
I have reviewed this patient and I concur with the Shift Assessment completed by the Licensed Practical Nurse today this shift.
[2020-04-03 21:52] VITALS: BP 118/55
--- NOTE | 2020-04-03 22:39 | NUR ---
REQUESTING PRN PAIN MEDICINE FOR PAIN RATING OF "8/10 ALL OVER". ADMINISTERED PER ORDER. PATIENT TOLERATED WELL WITH NO ISSUES NOTED. CALL LIGHT REMAINS CLOSE. CPOC.
[2020-04-04 02:00] VITALS: BP 105/45
--- NOTE | 2020-04-04 04:57 | NUR ---
PATIENT AWAKE. USING CALL LIGHT. REQUESTING COFFEE AND ICE WATER. DENIES FURTHER NEEDS AT THIS TIME. CALL LIGHT REMAINS CLOSE. CPOC.
[2020-04-04 06:19] VITALS: BP 118/35
[2020-04-04 06:38] LABS: BASOPHILS 0.1 % (0-2); EOSINOPHILS 3.3 % (0-7); HEMATOCRIT 31.8 % (36.0-48.0); IMMATURE GRANULOCYTES 0.6 % (0-5); MCH 25.4 pg (26.0-34.0); MCHC 28.3 g/dL (31.0-37.0); MCV 89.6 fL (80.0-100.0); MEAN PLATELET VOLUME 8.9 fL (7.4-10.4); MONOCYTES 6.9 % (2-11); NEUTROPHILS 75.1 % (40-80); RBC 3.55 10x6/uL (4.00-5.40); RDW 15.7 % (11.5-14.5); WBC 12.4 10x3/uL (4.8-10.8)
[2020-04-04 06:41] LABS: PLATELET COUNT 228 10x3/uL (130-400)
[2020-04-04 07:00] LABS: ALBUMIN 2.8 g/dL (3.4-5.0); ANION GAP 7.5 mmol/L (8-16); BILIRUBIN - TOTAL 0.7 mg/dL (0.2-1.3); CALCIUM 8.2 mg/dL (8.5-10.1); CARBON DIOXIDE 38.7 mmol/L (21.0-32.0); POTASSIUM - SERUM 3.2 mmol/L (3.5-5.1); PROTEIN - SERUM 6.6 g/dL (6.4-8.2)
[2020-04-04 08:12] VITALS: BP 101/57
[2020-04-04 11:40] VITALS: BP 113/62
--- NOTE | 2020-04-04 12:24 | NUR ---
PT AWAKE AND ORIENTED, TOOK ALL MEDICATIONS WITHOUT COMPLICATIONS. TO D/C BACK TO [facility] IN AM. NO COMPLAINTS OR CONCERNS AT THIS TIME. ON PHONE WITH FAMILY MEMBER. PT HAD BED BATH TODAY ADMINSTERED BY CL IN REACH, SRX2.
--- NOTE | 2020-04-04 13:55 | NUR ---
I have reviewed this patient and I concur with the Shift Assessment completed by the Licensed Practical Nurse today this shift.
[2020-04-04 15:00] VITALS: BP 89/32
[2020-04-04 20:00] VITALS: BP 99/22
[2020-04-05] VITALS: BP 111/35
[2020-04-05 04:00] VITALS: BP 112/31
[2020-04-05 05:52] LABS: CALC OSMOLALITY 287 mosm/kg (275-300); CALCIUM 8.1 mg/dL (8.5-10.1); CARBON DIOXIDE 35.5 mmol/L (21.0-32.0); CHLORIDE - SERUM 102 mmol/L (98-107); CREATININE - SERUM 0.8 mg/dL (0.6-1.3); GLUCOSE 148 mg/dL (74-106); POTASSIUM - SERUM 3.6 mmol/L (3.5-5.1); SODIUM 141 mmol/L (136-145); eGFR NON AFRICAN AMERICAN 79 mL/min (90-120)
[2020-04-05 06:11] LABS: UREA NITROGEN 23 mg/dL (7-18)
[2020-04-05 06:30] LABS: BASOPHILS 0.2 % (0-2); EOSINOPHILS 5.3 % (0-7); HEMATOCRIT 31.3 % (36.0-48.0); HEMOGLOBIN 9.1 g/dL (12-16); IMMATURE GRANULOCYTES 0.7 % (0-5); LYMPHOCYTES 15.4 % (15-50); MCH 26.3 pg (26.0-34.0); MCHC 29.1 g/dL (31.0-37.0); MCV 90.5 fL (80.0-100.0); MEAN PLATELET VOLUME 8.9 fL (7.4-10.4); MONOCYTES 7.1 % (2-11); NEUTROPHILS 71.3 % (40-80); PLATELET COUNT 233 10x3/uL (130-400); RBC 3.46 10x6/uL (4.00-5.40); RDW 15.7 % (11.5-14.5); WBC 11.1 10x3/uL (4.8-10.8)
[2020-04-05 08:00] VITALS: BP 118/46
--- NOTE | 2020-04-05 09:03 | MORECARE ---
CASE MANAGEMENT DISCHARGE SUMMARY PATIENT: DOUGLAS HILLS UNIT: [id number] ADM DATE: 03/30/20 AGE: 54 : 63 SEX: F ROOM/BED: D.2101 AUTHOR: FROILAN,DOC PHYSICIAN: REFERRING PHYSICIAN: FLETCHER MCKENZIE MD DATE OF SERVICE: 04/05/20 Discharge Plan Patient Name: DOUGLAS HILLS Facility: [facility]:[place] : 1965 Planned Disposition: Nursing Facility [facility] Cert Anticipated Discharge Date: Discharge Date: Expected LOS: Initial Reviewer: [email or web address] Initial Review Date: 03/31/2020 Generated: 04/05/20 10:02 am Comments DCP- Discharge Planning Updated by [email or web address]: Thelma Yusuf on 04/05/20 7:[address] Patient gave me updated phone numbers. I emailed them to Brenda Way, Annel De La Rosa, Jessica De La Rosa. Received discharge orders and faxed them to [facility] with updated notes and DC meds. Sandhya is to get a transport time and tell me if she is returning to her LT care bed. Patient's phone number - [phone] Ludy Li - DTR - [phone] Nevin - grand daughter - [phone] Brie - grand daughter - [phone] DCP- Discharge Planning Updated by [email or web address]: Thelma Yusuf on 03/31/20 1:[address] Patient Name: DOUGLAS HILLS Admission Status: ER Accout number: [id number] Admission Date: 03-30-2020 : 1965 Admission Diagnosis:SHORTNESS OF BREATH Attending: MANUELITO Current LOS: 1 Anticipated DC Date: Planned Disposition: Nursing Facility [facility] Cert Primary Insurance: [facility] MEDICARE SOLUTIONS Discharge Planning Comments: CM met with patient to complete initial dc planning assessment. CM educated patient on the CM role and verbal consent given by patient to complete assessment. Patient lives at [facility] in a fci bed. At discharge patient plans to return and feels this is a safe discharge. She wears oxygen 24/7 at [facility], states she is unsure how many liters she wears. Denies noncompliance with wearing her BIPAP. I called Sandhya with [facility] and Sandhya states the reason her Trilogy was taken back by insurance was because she was noncompliant with wearing it. I informed the patient that she needed to wear her Bipap as ordered to keep her from having repeated hospitalizations. CM will continue to follow and will assist as needed with dc plans/needs. Terminal Block Assembler: Thelma Madelin DCPIA - Discharge Planning Initial Assessment Updated by [id number]: Thelma Yusuf on 03/31/20 2:20 pm * Is the patient Alert and Oriented? Yes * How many steps to enter\exit or inside your home? 0/0 * PCP [facility] * Pharmacy [facility] * Preadmission Environment [facility] * Facility Name [facility] * ADLs Partial Dependent * Partial ADLs (Assistance needed) Ambulation Bathing Dressing Medication Management Toileting Transfers * Other Equipment All equipment from the [facility], including oxygen and CPAP * List name and contact numbers for known caregivers / representatives who currently or will assist patient after discharge: Delfina Li [facility] - [phone] * Verbal permission to speak to the caregivers and representatives has been obtained from the patient. Yes * Community resources currently utilized None * Additional services required to return to the preadmission environment? No * Can the patient safely return to the preadmission environment? Yes * Has this patient been hospitalized within the prior 30 days at any hospital? Yes Coverage Notice Reviewer: [id number] - Thelma Marinsantiago Notice Issued Date-Time: 03/31/2020 14:41 Notice Type: Patient Choice Letter Notice Delivered To: Patient Relationship to Patient: Self Belt Knife Feeder Name: Delivery Method: HAND - Hand Delivered Adrianne Days: Prior Verbal Notification: Recipient Understood Notice: Yes Recipient Signature: Yes Med Rec Note Co-signed by Attending: Coverage Notice Comment: MATT for [facility] Last DP export: 03/31/20 1:36 pm Patient Name: DOUGLAS HILLS Page 64673 at 0903 All edits/amendments must be made on the electronic document DICTATION DATE: 04/05/20902 BLASTING CAP ASSEMBLER: CLEMENT 04/05/20902 RPT#: [id number] DC DATE: STATUS: ADM IN [facility] [address] [facility] [place] [address] END OF REPORT
--- NOTE | 2020-04-05 10:09 | MORECARE ---
CASE MANAGEMENT DISCHARGE SUMMARY PATIENT: DOUGLAS HILLS UNIT: [id number] ADM DATE: 03/30/20 AGE: 54 : 63 SEX: F ROOM/BED: D.2101 AUTHOR: FROILAN,DOC PHYSICIAN: REFERRING PHYSICIAN: FLETCHER MCKENZIE MD DATE OF SERVICE: 04/05/20 Discharge Plan Patient Name: DOUGLAS HILLS Facility: [facility]:[place] : 1965 Planned Disposition: Nursing Facility [employer] Cert Anticipated Discharge Date: Discharge Date: Expected LOS: Initial Reviewer: [email or web address] Initial Review Date: 03/31/2020 Generated: 04/05/20 11:08 am Comments DCP- Discharge Planning Updated by [email or web address]: Thelma Yusuf on 04/05/20 9:[address] Sandhya states patient will discharge to a exterminator termite care bed. DCP- Discharge Planning Updated by [id number]: Thelma Yusuf on 04/05/20 7:[address] Patient gave me updated phone numbers. I emailed them to Brenda Way, Annel De La Rosa, Jessica De La Rosa. Received discharge orders and faxed them to [facility] with updated notes and DC meds. Sandhya is to get a transport time and tell me if she is returning to her LT care bed. Patient's phone number - [phone] Ludy Li - DTR - [phone] Nevin - grand daughter - [phone] Brie - grand daughter - [phone] DCP- Discharge Planning Updated by [id number]: Thelma Yusuf on 03/31/20 1:[address] Patient Name: DOUGLAS HILLS Admission Status: ER Accout number: [id number] Admission Date: 03-30-2020 : 1965 Admission Diagnosis:SHORTNESS OF BREATH Attending: MANUELITO Current LOS: 1 Anticipated DC Date: Planned Disposition: Nursing Facility [facility] Cert Primary Insurance: [facility] MEDICARE SOLUTIONS Discharge Planning Comments: CM met with patient to complete initial dc planning assessment. CM educated patient on the CM role and verbal consent given by patient to complete assessment. Patient lives at [facility] in a penitentiary bed. At discharge patient plans to return and feels this is a safe discharge. She wears oxygen 12/02 at [facility], states she is unsure how many liters she wears. Denies noncompliance with wearing her BIPAP. I called Sandhya with [facility] and Sandhya states the reason her Trilogy was taken back by insurance was because she was noncompliant with wearing it. I informed the patient that she needed to wear her Bipap as ordered to keep her from having repeated hospitalizations. CM will continue to follow and will assist as needed with dc plans/needs. Spa Assistant Manager: Thelma Yusuf DCPIA - Discharge Planning Initial Assessment Updated by [email or web address]: Thelma Yusuf on 03/31/20 2:20 pm * Is the patient Alert and Oriented? Yes * How many steps to enter\exit or inside your home? 0/0 * PCP [place] * Pharmacy [facility] * Preadmission Environment [facility] * Facility Name [facility] * ADLs Partial Dependent * Partial ADLs (Assistance needed) Ambulation Bathing Dressing Medication Management Toileting Transfers * Other Equipment All equipment from the [facility], including oxygen and CPAP * List name and contact numbers for known caregivers / representatives who currently or will assist patient after discharge: Delfina Li [facility] - [phone] * Verbal permission to speak to the caregivers and representatives has been obtained from the patient. Yes * Community resources currently utilized None * Additional services required to return to the preadmission environment? No * Can the patient safely return to the preadmission environment? Yes * Has this patient been hospitalized within the prior 30 days at any hospital? Yes Coverage Notice Reviewer: [email or web address] Bayron Yusuf Notice Issued Date-Time: 03/31/2020 14:41 Notice Type: Patient Choice Letter Notice Delivered To: Patient Relationship to Patient: Self Director Communications Name: Delivery Method: HAND - Hand Delivered Adrianne Days: Prior Verbal Notification: Recipient Understood Notice: Yes Recipient Signature: Yes Med Rec Note Co-signed by Attending: Coverage Notice Comment: MATT for [facility] Reviewer: [email or web address] Bayron Yusuf Notice Issued Date-Time: 04/05/2020 10:00 Notice Type: IM Discharge Notice Notice Delivered To: Patient Relationship to Patient: Self Director Communications Name: Delivery Method: HAND - Hand Delivered Adrianne Days: Prior Verbal Notification: Recipient Understood Notice: Yes Recipient Signature: Yes Med Rec Note Co-signed by Attending: Coverage Notice Comment: Last DP export: 04/05/20 8:03 a Patient Name: DOUGLAS HILLS Page 19979 at 1009 All edits/amendments must be made on the electronic document DICTATION DATE: 04/05/20 1008 BOOSTER ASSEMBLER: CLEMENT 04/05/20 1008 RPT#: [id number] DC DATE: STATUS: ADM IN [facility] [address] [place] [address] END OF REPORT
[2020-04-05 11:56] VITALS: BP 129/54
--- NOTE | 2020-04-05 14:32 | NUR ---
PT ESCORTED OUT VIA WHEELCHAIR TO [facility].
--- NOTE | 2020-04-06 12:47 | MORECARE ---
CASE MANAGEMENT DISCHARGE SUMMARY PATIENT: DOUGLAS HILLS UNIT: [id number] ADM DATE: 03/30/20 AGE: 54 : 63 SEX: F ROOM/BED: D.2101 AUTHOR: FROILAN,DOC PHYSICIAN: REFERRING PHYSICIAN: FLETCHER MCKENZIE MD DATE OF SERVICE: 04/06/20 Discharge Plan Patient Name: DOUGLAS HILLS Facility: [facility]:[place] : 1965 Planned Disposition: Nursing Facility JADYN Cert Anticipated Discharge Date: Discharge Date: 04/05/2020 Expected LOS: 0 Initial Reviewer: [email or web address] Initial Review Date: 03/31/2020 Generated: 04/06/20 1:47 pm Comments DCP- Discharge Planning Updated by [email or web address]: Thelma Yusuf on 04/05/20 9:[address] Sandhya states patient will discharge to a residential care bed. DCP- Discharge Planning Updated by [email or web address]: Thelma Yusuf on 04/05/20 7:[address] Patient gave me updated phone numbers. I emailed them to Brenda Way, Annel De La Rosa, Jessica De La Rosa. Received discharge orders and faxed them to [facility] with updated notes and DC meds. Sandhya is to get a transport time and tell me if she is returning to her LT care bed. Patient's phone number - [phone] Ludy Li - [facility] - [phone] Nevin - grand daughter - [phone] Brie - grand daughter - [phone] DCP- Discharge Planning Updated by [id number]: Thelma Yusuf on 03/31/20 1:[address] Patient Name: DOUGLAS HILLS Admission Status: ER Accout number: [id number] Admission Date: 03-30-2020 : 1965 Admission Diagnosis:SHORTNESS OF BREATH Attending: MANUELITO Current LOS: 1 Anticipated DC Date: Planned Disposition: Nursing Facility JADYN Cert Primary Insurance: [facility] [employer] Discharge Planning Comments: CM met with patient to complete initial dc planning assessment. CM educated patient on the CM role and verbal consent given by patient to complete assessment. Patient lives at [facility] in a residential bed. At discharge patient plans to return and feels this is a safe discharge. She wears oxygen 24/ at [facility], states she is unsure how many liters she wears. Denies noncompliance with wearing her BIPAP. I called Sandhya with [facility] and Sandhya states the reason her Trilogy was taken back by insurance was because she was noncompliant with wearing it. I informed the patient that she needed to wear her Bipap as ordered to keep her from having repeated hospitalizations. CM will continue to follow and will assist as needed with dc plans/needs. Metallurgical Engineering Teacher: Thelma Yusuf DCPIA - Discharge Planning Initial Assessment Updated by [id number]: Thelma Yusuf on 03/31/20 2:20 pm * Is the patient Alert and Oriented? Yes * How many steps to enter\exit or inside your home? 0/0 * PCP [facility] * Pharmacy [facility] * Preadmission Environment Fdc Fdc * Facility Name [facility] * ADLs Partial Dependent * Partial ADLs (Assistance needed) Ambulation Bathing Dressing Medication Management Toileting Transfers * Other Equipment All equipment from [facility], including oxygen and CPAP * List name and contact numbers for known caregivers / representatives who currently or will assist patient after discharge: Delfina Li [facility] - [phone] * Verbal permission to speak to the caregivers and representatives has been obtained from the patient. Yes * Community resources currently utilized None * Additional services required to return to the preadmission environment? No * Can the patient safely return to the preadmission environment? Yes * Has this patient been hospitalized within the prior 30 days at any hospital? Yes Coverage Notice Reviewer: [id number] Bayron Yusuf Notice Issued Date-Time: 03/31/2020 14:41 Notice Type: Patient Choice Letter Notice Delivered To: Patient Relationship to Patient: Self Filler Mixer Name: Delivery Method: HAND - Hand Delivered Adrianne Days: Prior Verbal Notification: Recipient Understood Notice: Yes Recipient Signature: Yes Med Rec Note Co-signed by Attending: Coverage Notice Comment: MATT for [facility] Reviewer: [id number] Bayron Yusuf Notice Issued Date-Time: 04/05/2020 10:00 Notice Type: IM Discharge Notice Notice Delivered To: Patient Relationship to Patient: Self Filler Mixer Name: Delivery Method: HAND - Hand Delivered Adrianne Days: Prior Verbal Notification: Recipient Understood Notice: Yes Recipient Signature: Yes Med Rec Note Co-signed by Attending: Coverage Notice Comment: Last DP export: 04/05/20 9:09 a Patient Name: DOUGLAS HILLS Page [id number] at 1247 All edits/amendments must be made on the electronic document DICTATION DATE: 04/06/20 1247 VEGETABLE TIER: CLEMENT 04/06/20 1247 RPT#: [id number] DC DATE:04/05/20 STATUS: DIS IN [facility] [address] [place] [address] END OF REPORT
== END 2020-04-05 14:32 | DRG 291 ==
LOC: D.ER 14:09 → D.EDHOLD 15:38 → D.M2 15:38
PROVIDERS: Emergency Medicine; ADMIT Emergency Medicine; ATTEND Emergency Medicine
DX: I11.0 Hypertensive heart disease with heart failure (principal); J96.22 Acute and chronic respiratory failure with hypercapnia; J96.21 Acute and chronic respiratory failure with hypoxia; G93.41 Metabolic encephalopathy; E66.2 Morbid (severe) obesity with alveolar hypoventilation; Z68.44 Body mass index [BMI] 60.0-69.9, adult; N17.9 Acute kidney failure, unspecified; I25.10 Atherosclerotic heart disease of native coronary artery without angina pectoris; E11.9 Type 2 diabetes mellitus without complications; J44.9 Chronic obstructive pulmonary disease, unspecified; R06.89 Other abnormalities of breathing; I50.33 Acute on chronic diastolic (congestive) heart failure; E03.9 Hypothyroidism, unspecified; E78.5 Hyperlipidemia, unspecified; I07.1 Rheumatic tricuspid insufficiency

== ENCOUNTER 2020-04-13 13:53 | Emergency (ER) | payer MEDICARE, MEDICAID ==
[~2020-04-13] VITALS: Ht 152.4 cm; Wt 136.4 kg
[2020-04-13 14:01] VITALS: Ht 152.4 cm; Wt 136.4 kg
[2020-04-13 15:39] LABS: BASOPHILS 0.1 % (0-2); HEMATOCRIT 31.5 % (36.0-48.0); HEMOGLOBIN 9.4 g/dL (12-16); IMMATURE GRANULOCYTES 0.9 % (0-5); LYMPHOCYTES 14.8 % (15-50); MCH 26.3 pg (26.0-34.0); MCHC 29.8 g/dL (31.0-37.0); MCV 88.2 fL (80.0-100.0); MEAN PLATELET VOLUME 8.7 fL (7.4-10.4); MONOCYTES 7.2 % (2-11); PLATELET COUNT 272 10x3/uL (130-400); RBC 3.57 10x6/uL (4.00-5.40); WBC 15.1 10x3/uL (4.8-10.8)
[2020-04-13 15:51] LABS: APTT 27.7 SECONDS (22.8-39.4); INR 0.98 (0.85-1.17); PROTIME 12.9 SECONDS (11.6-15.0)
[2020-04-13 16:12] LABS: ALKALINE PHOSPHATASE 100 U/L (30-120); ALT (SGPT) 17 U/L (10-68); BILIRUBIN - TOTAL 0.26 mg/dL (0.2-1.3); CALC OSMOLALITY 278 mosm/kg (275-300); CALCIUM 9.1 mg/dL (8.5-10.1); CHLORIDE - SERUM 92 mmol/L (98-107); CKMB 0.6 U/L (0.0-3.6); CREATINE KINASE 43 UL (21-215); CREATININE - SERUM 1.2 mg/dL (0.6-1.3); GLUCOSE 189 mg/dL (74-106); POTASSIUM - SERUM 3.5 mmol/L (3.5-5.1); PRO BNP 87 pg/mL (0-125); PROTEIN - SERUM 6.7 g/dL (6.4-8.2); SODIUM 135 mmol/L (136-145); TROPONIN-I < 0.017 ng/mL (0.000-0.060); UREA NITROGEN 25 mg/dL (7-18); eGFR NON AFRICAN AMERICAN 49 mL/min (90-120)
[2020-04-13] MEDS ORDERED: VIBRAMYCIN 100100 MG PO (16:59)
[2020-04-13] MEDS ORDERED: MUCINEX600 MG PO (16:59)
[2020-04-13 18:14] VITALS: BP 107/45
== END 2020-04-13 18:15 | disposition home or self-care (01) ==
LOC: D.ER 13:53
PROVIDERS: Family Medicine
DX: R06.00 Dyspnea, unspecified (principal); J44.9 Chronic obstructive pulmonary disease, unspecified; E11.40 Type 2 diabetes mellitus with diabetic neuropathy, unspecified; E03.9 Hypothyroidism, unspecified; Z79.4 Long term (current) use of insulin

== ENCOUNTER 2020-09-11 03:50 | Inpatient (IN) | payer MEDICARE, MEDICAID ==
[2020-09-11] VITALS (64 sets, daily range): BP systolic 43–133; BP diastolic 20–80; BMI 61.6
[~2020-09-11] VITALS: Ht 152.4 cm; Wt 164.5 kg
--- NOTE | ~2020-09-11 | EEG ---
PATIENT:DOUGLAS HILLS MEDICAL RECORD: [id number] DATE OF : 63 LOCATION:D.230 D.ICU ADMISSION DATE: 09/11/20 REFERRING PHYSICIAN: INTERPRETING PHYSICIAN: KOREY JIN MD DATE OF SERVICE: 09/13/2020 ROOM: 2308 ORDERED BY: Dr. Jin. CASE HISTORY: A 55-year-old female status post cardiorespiratory arrest with successful resuscitation with suspected severe hypoxic insult. PROCEDURE: EEG done as a routine bedside portable recording using the standard 10-20 international electrode system. Sixteen channels were used with 17th as EKG. Photic stimulation done as activation procedure. DESCRIPTION: EEG opens with the patient unresponsive, off sedation, on vent with the record displaying diffuse very markedly low amplitude background theta with only slightest of amplitude deflection detected. This record is not electrically silent. No response to stimuli. Both verbal and tactile is seen. No epileptiform activity such as spike, polyspike, or spike and wave is seen. Photic stimulation did not yield a paroxysmal response. IMPRESSION: Markedly abnormal EEG with diffuse very markedly depressed amplitudes consistent with anoxic brain injury with grim prognosis for recovery. TRANSINT:[id number] Voice Confirmation ID: [id number] DOCUMENT ID: [id number] KOREY JIN MD CC: [id number] DICTATION DATE: 09/13/201809 PIPE STEM SAWYER: 09/14/20 0319 ADM IN [facility] [address] [place] [address]
[~2020-09-11 03:50] MED LIST changes: +BACTRIM DS TAB1 EAC1 PEG; +HUMALOG 30100 UNITS/ SC; +IPRAT-ALBUT 0.5-3 ML INH; +PERFOROMIS20 MCG/21 INH; +PULMICORT0.5 MG/21 INH; +ZYVOX PREMIX600 MG IV
[2020-09-11 04:24] LABS: HEMATOCRIT 38.1 % (36.0-48.0); HEMOGLOBIN 9.9 g/dL (12-16); LYMPHOCYTE ABS# 6.33 10x3/uL (1.18-3.74); MCH 27.2 pg (26.0-34.0); MCV 104.7 fL (80.0-100.0); MEAN PLATELET VOLUME 8.9 fL (7.4-10.4); NEUTROPHIL ABS# 15.91 10x3/uL (1.56-6.13); PLATELET COUNT 264 10x3/uL (130-400); RBC 3.64 10x6/uL (4.00-5.40); RDW 16.1 % (11.5-14.5); UDS - AMPHET NEGATIVE QUAL (NEGATIVE); UDS - BARB NEGATIVE QUAL (NEGATIVE); UDS - BENZO NEGATIVE QUAL (NEGATIVE); UDS - COCAINE NEGATIVE QUAL (NEGATIVE); UDS - OPIATE POSITIVE QUAL (NEGATIVE); UDS - PCP NEGATIVE QUAL (NEGATIVE); UDS - THC NEGATIVE QUAL (NEGATIVE); WBC 24.9 10x3/uL (4.8-10.8)
[2020-09-11 04:26] LABS: APTT 40.3 SECONDS (22.8-39.4); PROTIME 13.2 SECONDS (11.6-15.0)
[2020-09-11 04:31] LABS: BILIRUBIN NEGATIVE (NEGATIVE); KETONE NEGATIVE (NEGATIVE); NITRITE NEGATIVE (NEGATIVE); UROBILINOGEN NORMAL mg/dL (< 2)
[2020-09-11 04:45] LABS: ALBUMIN 2.1 g/dL (3.4-5.0); ANION GAP 9.2 mmol/L (8-16); BILIRUBIN - TOTAL 0.31 mg/dL (0.2-1.3); C-REACTIVE PROTEIN 4.4 mg/dL (0.0-0.9); CALCIUM 9.1 mg/dL (8.5-10.1); CREATININE - SERUM 1.4 mg/dL (0.6-1.3); MAGNESIUM - SERUM 2.6 mg/dL (1.8-2.4); POTASSIUM - SERUM 5.6 mmol/L (3.5-5.1); PROTEIN - SERUM 6.2 g/dL (6.4-8.2); THYROID STIMULATING HORMONE 12.21 uIU/mL (0.36-3.74); TROPONIN-I 0.02 ng/mL (0.000-0.060)
[2020-09-11 04:47] LABS: CARBON DIOXIDE 44.4 mmol/L (21.0-32.0)
[2020-09-11 04:48] LABS: D-DIMER-QUANTITATIVE > 20.00 ug/mLFEU (0.20-0.54)
[2020-09-11 05:02] LABS: EOSINOPHILS 1 % (0-7); LYMPHOCYTES 34 % (15-50); MONOCYTES 5 % (2-11); NEUTROPHILS 53 % (40-80); PLATELET ESTIMATE NORMAL; TOXIC GRANULATION 1+
--- NOTE | 2020-09-11 05:42 | NUR ---
DR. GOMEZ AWARE OF PT B/P AND LEVOPHED MAXED OUT AT 30MCG/MIN. NEW ORDER FOR NARCAN GIVEN AT THIS TIME.
[2020-09-11 07:14] LABS: SARS-CoV-2 ANTIGEN NEGATIVE- SARS-COV-2 (NEGATIVE)
--- NOTE | 2020-09-11 08:16 | NUR ---
[phone] DAUGHTER CALLED-REACHED VOICE MAIL ONLY-INSTRUCTION GIVEN TO RETURN CALL 0815-REPEATED CALL TO [phone]-CALL ANSWERED-IDENTIFIED SELF AND CURRENT SITUATION-RETURN: WHAT ARE YOU SAYING THEY JUST TOLD ME MY MOTHER WAS FINE--REPEATED RECORDED TIME SEQUENCE OF 803-VOICE MAIL AND NO RETURN CALL-STRESSED CONTINUING WITH CODE-NO HEART BEAT ON ARRIVAL-NO RESP EFFORT-STRESSED AT 20MIN MITZY BRAIN IS OCCURING -ATTEMPTED TO RECIEVE ANSWER FROM DAUGHTER TO CONTINUE AT THIS TIME WITH CODE OR HRLP-[id number]-GOPLMB LOUDLY (SCREAMING VOICE) THEY JUST SAID SHE WAS FINE-ALLOWED TIME FOR EMOTIONAL DISTRESS-REPEATED REQUEST AND REPEATED CURRENT SITUATION -DAUGHTER CONTINUED WITH LOUD CRYING-NO DISCERNIBLE ANSWER-MALE VOICE CAME ON PHONE AT DISTANT SOUND (SPEAKER PHONE?)--WITH RESPONSE HOW DO YOU EXPECT HER TO ACT-ALLOWED TIME FOR STRONG EMOTIONAL RESPONSE-0826 CURRENT TIME-PLACED 2ND NURSE ON PHONE TO OBTAIN FAMILY WISHES-Melida NORMAN RN-RECIEVED SAME RERSPONSE-ATTEMPTED TO EXPLAIN CURRENT SITUATION-CALM STEADY VOICE WITNESSED -TIME FRAME -AND LOSS OF OXYGEN-DAUGHTER STATED WANT EVERYTHING DONE-DR GUZMAN INFORMED -NO STOPAGE IN CPR CODE-ACLS --DR HECK RETURNED CALL AND INFORMED OF SAME
--- NOTE | 2020-09-11 08:30 | NUR ---
TALKED WITH PATIENT SON. UNDERSTAND THAT WE DO HAVE PULSE AND BLOOD PRESSURE RIGHT NOW, BUT PATIENT IS CRITICAL ILL. STATES HE WILL CALL AND LET HIS SISTER KNOW
--- NOTE | 2020-09-11 09:05 | NUR ---
REC'D PT AT 0800. NO PULSE. CPR STARTED INDICATED 100% BVM. ACLS PER PROTOCOL. DR GUZMAN AT . ACLS X 30 MIN, ROSC AT 30 MIN AFTER CPR. DAUGHTER NOTIFIED. BLOOD NOTED AT VAG/RECTAL AREA. 1UPRBC STARTED.
--- NOTE | 2020-09-11 09:28 | NUR ---
BP 60/40. PULSE PRESENT. DR ANGELES HERE DR CARDONA HERE. LEVOPHED TITRATED UP TO 30MCG/MIN. 2 AMPS HC03 GIVEN PER DR ANGELES. NS BOLUS STARTED. BP 88/22. PULSE PRESENT. CVL BEING PLACED.
[2020-09-11 10:02] LABS: HEMATOCRIT 41.4 % (36.0-48.0); HEMOGLOBIN 11.6 g/dL (12-16); MCH 27.8 pg (26.0-34.0); NEUTROPHIL ABS# 15.62 10x3/uL (1.56-6.13); RBC 4.18 10x6/uL (4.00-5.40); RDW 16.2 % (11.5-14.5); WBC 19.9 10x3/uL (4.8-10.8)
[2020-09-11 10:07] LABS: APTT 44.8 SECONDS (22.8-39.4)
--- NOTE | 2020-09-11 10:07 | NUR ---
CVL PLACED L GROIN. SBP 57. MANNIE STARTED AND TITRATED TO 10MCG/MIN.
[2020-09-11 10:17] LABS: PLATELET COUNT 138 10x3/uL (130-400)
[2020-09-11 10:22] LABS: INR 1.45 (0.85-1.17); PROTIME 16.4 SECONDS (11.6-15.0)
--- NOTE | 2020-09-11 10:49 | NUR ---
BP 50/22. MANNIE TITRATING UP TO 100MCG/MIN,VASOPRESSIN AND LEVOPHED MAX DOSE INFUSING. DOPPLER PULSE PRESENT. DR ANGELES HERE, DR HECK HERE. NS BOLUS 500 INFUSING ORDERED. FAMILY NOTIFIED.
[2020-09-11 11:12] LABS: ANISOCYTOSIS OCC; LYMPHOCYTES 19 % (15-50); MONOCYTES 1 % (2-11); NEUTROPHILS 73 % (40-80); PLATELET ESTIMATE NORMAL
--- NOTE | 2020-09-11 11:30 | NUR ---
BP 97/77, HR 118. BLOODY DRAINAGE ON LINENS UNDER PT. APPEARS TO BE GIB. PEG PLACED TO GRAVITY. 350CC DARK RED FLUID OUT. LINENS CHANGED. PT BATHED.
[2020-09-11 15:55] LABS: HEMATOCRIT 40.4 % (36.0-48.0); HEMOGLOBIN 11.5 g/dL (12-16)
--- NOTE | 2020-09-11 15:59 | NUR ---
PTS DAUGHTER HERE AT BS.
--- NOTE | 2020-09-11 19:15 | NUR ---
REPORT REC'D AND CARE ASSUMED, REC'D PT ON VENT SEE FLOWSHEET FOR VENT SETTTINGS, PT UNRESPONSIVE ON VENT, PUPILS 6 AND NONREACTIVE, BRUISE NOTED TO RIGHT UPPER ARM, RIGHT A/C PIV WITH PROTONIX GTT INFUSING @ 8MG/HR, RIGHT GROIN TL DRSG CDI WITH NS @ 200CC/HR, LEVOPHED @ 56.3CC OR 30MCG/MIN, VASOPRESSIN 0.04 UNITS/MIN OR 6CC/HR, AND NEOSYNEPHRINE 180 MCG/KG/MIN OR 135CC/HR, GENERALIZED EDEMA, NO RESPONSE NOTED TO DEEP TISSUE STIMULI, SCABS/SORES NOTED UNDER BILAT BREASTS, REDDENED AREAS, HESS PATENT DRAINING SCANT AMOUNT OF URINE, LEFT UPPER PEG TUBE TO GRAVITY PEG DARK RUST COLORED DRAINAGE NOTED ALONG WITH BROWN DRAINAGE, PPP, WILL MONITOR CLOSELY FOR CHANGES.
--- NOTE | 2020-09-11 21:00 | NUR ---
EVENING MEDS GIVEN, PRESSORS MAXED AT THIS TIME, PT REMAINS UNRESPONSIVE, CM-ST @ 117, WILL CONT CURRENT POC.
--- NOTE | 2020-09-11 23:00 | NUR ---
REASSESSMENT COMPLETED, DEEP STIMULI TO NAILBEDS ON TOES ELICITS BIG TOE FLEXING IN A DECEREBRATE MANNER ON LEFT FOOT AND DECORTICATE MANNER ON RIGHT, NO OTHER HAND, ARM, OR LEG MOVEMENT NOTED. TEMP ELEVATED 102.6, BLANKETS REMOVED, THERMOSTAT ADJUSTED.
[2020-09-12] VITALS (88 sets, daily range): BP systolic 49–124; BP diastolic 22–73
--- NOTE | 2020-09-12 01:00 | NUR ---
TEMP INCREASED TO 103.2, CLOTH TO FOREHEAD AND ICE PACKS APPLIED, PT REMAINS UNRESPONSIVE, BP LAIBILE, WILL CONT TO MONITOR CLOSELY FOR CHANGES.
--- NOTE | 2020-09-12 03:15 | NUR ---
TEMP DECREASED TO 102.4, PRESSORS REMAIN MAXED, ORAL CARE PROVIDED AND FACE WASHED, SR UP X 2, VISIBLE TO NURSES STATION.
[2020-09-12 06:04] LABS: HEMATOCRIT 38.7 % (36.0-48.0); HEMOGLOBIN 10.9 g/dL (12-16); LYMPHOCYTE ABS# 2.92 10x3/uL (1.18-3.74); MCH 27.7 pg (26.0-34.0); MCHC 28.2 g/dL (31.0-37.0); MCV 98.2 fL (80.0-100.0); MEAN PLATELET VOLUME 10.5 fL (7.4-10.4); NEUTROPHIL ABS# 21.78 10x3/uL (1.56-6.13); PLATELET COUNT 161 10x3/uL (130-400); RBC 3.94 10x6/uL (4.00-5.40); RDW 17.5 % (11.5-14.5); WBC 26.1 10x3/uL (4.8-10.8)
[2020-09-12 06:13] LABS: ALBUMIN 1.7 g/dL (3.4-5.0); BILIRUBIN - TOTAL 0.52 mg/dL (0.2-1.3); CALCIUM 7.1 mg/dL (8.5-10.1); PHOSPHOROUS 2.3 mg/dL (2.5-4.9); PROTEIN - SERUM 5.2 g/dL (6.4-8.2)
[2020-09-12 06:16] LABS: ANION GAP 18.7 mmol/L (8-16); CARBON DIOXIDE 32.9 mmol/L (21.0-32.0); CREATININE - SERUM 3.1 mg/dL (0.6-1.3); MAGNESIUM - SERUM 1.2 mg/dL (1.8-2.4); POTASSIUM - SERUM 3.6 mmol/L (3.5-5.1)
[2020-09-12 06:17] LABS: TROPONIN-I 1.564 ng/mL (0.000-0.060)
--- NOTE | 2020-09-12 07:55 | NUR ---
MANNIE,LEVOPHED AND VASOPRESSORS ALL AT MAX DOSAGE, BP LABILE. BP CUFF REPOSITIONED. BP RANGES FROM SBP 80 TO SBP 60. PT INC OF BLOOD TINGED STOOL. LINENS CHANGED,PT BATHED.
[2020-09-12 11:46] LABS: LYMPHOCYTES 17 % (15-50); MONOCYTES 8 % (2-11); NEUTROPHILS 63 % (40-80); PLATELET ESTIMATE NORMAL
[2020-09-12 13:29] LABS: HEMATOCRIT 35.7 % (36.0-48.0); HEMOGLOBIN 10.2 g/dL (12-16)
[2020-09-12 19:50] LABS: HEMATOCRIT 34.9 % (36.0-48.0); HEMOGLOBIN 10.1 g/dL (12-16)
--- NOTE | 2020-09-12 21:18 | NUR ---
DR. LUI PAGED AND MADE AWARE OF CONSULT AND ORDER EEG FOR TOMORROW.
[2020-09-13] VITALS (95 sets, daily range): BP systolic 84–136; BP diastolic 38–90; BMI 65.8
[2020-09-13 05:49] LABS: APTT 37.2 SECONDS (22.8-39.4); INR 1.57 (0.85-1.17); PROTIME 17.4 SECONDS (11.6-15.0)
[2020-09-13 06:00] LABS: HEMATOCRIT 33.4 % (36.0-48.0); HEMOGLOBIN 9.8 g/dL (12-16); LYMPHOCYTES 6.9 % (15-50); MCH 27.9 pg (26.0-34.0); MCHC 29.3 g/dL (31.0-37.0); MCV 95.2 fL (80.0-100.0); MEAN PLATELET VOLUME 10.6 fL (7.4-10.4); NEUTROPHILS 89.2 % (40-80); PLATELET COUNT 86 10x3/uL (130-400); RBC 3.51 10x6/uL (4.00-5.40); RDW 16.8 % (11.5-14.5); WBC 22.2 10x3/uL (4.8-10.8)
[2020-09-13 06:16] LABS: ALBUMIN 1.5 g/dL (3.4-5.0); BILIRUBIN - TOTAL 0.55 mg/dL (0.2-1.3); CARBON DIOXIDE 38.5 mmol/L (21.0-32.0); CREATININE - SERUM 3.7 mg/dL (0.6-1.3); POTASSIUM - SERUM 3.5 mmol/L (3.5-5.1)
[2020-09-13 06:39] LABS: CALCIUM 6.7 mg/dL (8.5-10.1)
--- NOTE | 2020-09-13 07:48 | NUR ---
REC'D REPORT AND RESUMED CARE, TRACH TO VENT, 100% FIO2 WITH 100% O2 SAT, PRESSORS IN USE, RT AC PIV AND RIGHT GRON CVL IN USE, IV MEDS PER FLOWSHEET, PEG TO GRAVIOTY WITH BLOODY DRAINAGE TO BAG, HESS TO GRAVITY WITH SCANT URINE TO BBAG, PUPILS AR FIXED AND 5, PULSES VIA DOPPLER, FLACCID, ASSESSMENT COMPLETED PER FLOWSHEET
[2020-09-14] VITALS (100 sets, daily range): BP systolic 78–150; BP diastolic 37–76; Ht 152.4 cm; Wt 164.5 kg
[2020-09-14 05:15] LABS: CARBON DIOXIDE 29.3 mmol/L (21.0-32.0); CREATININE - SERUM 4.2 mg/dL (0.6-1.3); POTASSIUM - SERUM 3.3 mmol/L (3.5-5.1)
[2020-09-14 05:20] LABS: HEMATOCRIT 30.8 % (36.0-48.0); HEMOGLOBIN 9.1 g/dL (12-16); MCH 27.5 pg (26.0-34.0); MCHC 29.5 g/dL (31.0-37.0); MCV 93.1 fL (80.0-100.0); RBC 3.31 10x6/uL (4.00-5.40); RDW 17.8 % (11.5-14.5); WBC 23.1 10x3/uL (4.8-10.8)
[2020-09-14 05:22] LABS: BASOPHILS 0.1 % (0-2); CALCIUM 6.2 mg/dL (8.5-10.1); EOSINOPHILS 0.1 % (0-7); IMMATURE GRANULOCYTES 0.8 % (0-5); LYMPHOCYTE ABS# 0.84 10x3/uL (1.18-3.74); LYMPHOCYTES 3.6 % (15-50); MEAN PLATELET VOLUME 11.4 fL (7.4-10.4); NEUTROPHIL ABS# 21.07 10x3/uL (1.56-6.13); NEUTROPHILS 91.4 % (40-80); PLATELET COUNT 48 10x3/uL (130-400)
[2020-09-14 05:24] LABS: APTT 32.1 SECONDS (22.8-39.4); INR 1.4 (0.85-1.17); PROTIME 15.9 SECONDS (11.6-15.0)
--- NOTE | 2020-09-14 07:18 | NUR ---
PHYSICIAN CALLED AND MADE AWARE OF CRITICAL LABS, STATES HE WAS CLOSE TO HOSPITAL AND WOULD ADDRESS WHEN HE ARRIVED.
--- NOTE | 2020-09-14 14:30 | EC ---
PATIENT:DOUGLAS HILLS DATE OF SERVICE: 09/11/20 SEX: F MEDICAL RECORD: [id number] DATE OF : [birth year] LOCATION:D.[facility] D.230 AGE OF PATIENT: 55 ADMISSION DATE: 09/11/20 REFERRING PHYSICIAN: INTERPRETING PHYSICIAN: CONNOR FAUSTIN MD ECHOCARDIOGRAM REPORT ECHO CHARGES 5 ECHO LIMITED Date: 09/11/20 CLINICAL DIAGNOSIS: RESP FAILURE,COPD,CP ECHOCARDIOGRAPHIC MEASUREMENTS (adult normal given) AC root (d.<3.7cm) 3.4 cm LV Septum d (<1.2 cm> 1.4 cm Valve Excursion 1.8 cm LV Septum (systole) 1.5 cm Left Atria (s.<4.0cm> 4.8 cm LVPW d(<1.2cm) 1.3 cm RV (d.<2.3cm) 3.4 cm LVPW (sytole) 1.2 cm LV diastole(<5.6CM) 5.5 cm MV E-F(>70mm/sec) cm LV systole 4.5 cm LVOT Diameter 2.3 cm MV exc.(>10mm) cm Est.ejection fraction (50-75%) 10 % DOPPLER: LVIT cm/sec A cm/sec E cm/sec LA cm/sec RVSP 23 mmHg LVOT cm/sec AOP1/2T m/s Asc. Ao cm/sec RVOT 81 cm/sec RA cm/sec PA 100 cm/sec AV Gradient Peak mmHg AV Mean mmHg AV Area cm MV Gradient Peak mmHg MV Mean mmHg MV Area cm COMMENTS: Sales Representative Groceries: Micaela BOLIVAR Senior Restaurant Manager: 3 Dr. Em TAPE# Pericardial Effusion DATE OF SERVICE: Limited study due to the patient's underlying body habitus. This includes 2D, color-flow imaging, spectral Doppler, and M-Mode. LVH is present. LV internal dimension is normal. Difficult to fully assess focal wall motion from views present; however, EF reduced 20-25%. Aortic valve shows no stenosis by Doppler interrogation. Left atrium is dilated 4.8 cm. Mitral valve shows no prolapse. Probably no more than mild MR. Right-sided chambers are grossly normal. Mild TR. ECHOCARDIOGRAM REPORT [id number] DOUGLAS HILLS TRANSINT:[id number] Voice Confirmation ID: [id number] DOCUMENT ID: [id number] CONNOR FAUSTIN MD at 1430 CC: [id number] DICTATION DATE: 09/12/20928 FINANCIAL ADVISER: 09/12/202043 ADM IN [facility] [address] [place] [id number]
[2020-09-15] VITALS (43 sets, daily range): BP systolic 90–141; BP diastolic 37–81
--- NOTE | 2020-09-15 05:33 | NUR ---
NO CHANGE IN PATIENT STATUS DURING SHIFT. ADL NEEDS MET.
--- NOTE | 2020-09-15 10:02 | NUR ---
DR HEREDIA MAKING ROUNDS, SPOKE WITH SON MONIE GIVING STSTUS UPDATE,HE AGREES WITH DNR STATUS AND PLANS RO COME AND SEE PATIENT BEFORE MAKING ANY OTHER DECISIONS
--- NOTE | 2020-09-15 10:09 | NUR ---
Nutrition follow-up: Pt discussed during IDT team rounds Pt intubated Labs reviewed NPO continues due to MOSF Physician talking with family re: hospice and comfort care RDN will continue to monitor patients progress and status. Follow-up: 09/17/20
--- NOTE | 2020-09-15 19:36 | NUR ---
PC TO SHANNON, DAUGHTER OF MS. KWON, STATUS UPDATED AND TIME SET UP FOR FAMILY TO COME IN TO TALK WITH DOCTOR @ 1000 AM ON 09/16
[2020-09-16] VITALS (29 sets, daily range): BP systolic 88–174; BP diastolic 32–92
--- NOTE | 2020-09-16 06:16 | NUR ---
PATIENT WITH NO ACUTE EVENTS OVER NIGHT. PATIENT HAD 2 MUCUS LOOKING BOWEL MOVEMENTS. RECEIVED A CHG BATH WITH HESS CARE. PATIENT O2 SATS IN THE HIGH 90'S ON 80% FI02.
--- NOTE | 2020-09-16 14:27 | NUR ---
1000- FAMILY TO BEDSIDE- DECISION MADE TO REMOVE FROM VENT AND STOP ALL CARE. 1250- RT TO BEDSIDE TO PLACE PT ON TRACH COLLAR AND REMOVE FROM VENT. ALL PRESSORS, DRIPS AND FLUIDS DISCONTINUED. FAMILY REQUEST TO NOT BE PRESENT FOR TERMINATION OF CARE. 1300-10MG MORPHINE ADMIN PER ORDER FOR TERMINAL EXTUBATION. 1312- TOD- MD HEREDIA AND FAMILY NOTIFIED 1330- HOME [address] IN [place] NOTIFIED. PT TO BE PICKED UP THIS EVENING.
== END 2020-09-16 17:30 | DRG 870 ==
LOC: D.ER 03:50 → D.EDHOLD 04:43 → D.ICU 04:43
PROVIDERS: Family Medicine; Internal Medicine Pulmonary Disease; ADMIT Emergency Medicine; ATTEND Emergency Medicine
PROC: 5A1955Z Respiratory Ventilation, Greater than 96 Consecutive Hours (ICD-10-PCS; principal; 2020-09-11)
PROC: 06HM33Z Insertion of Infusion Device into Right Femoral Vein, Percutaneous Approach (ICD-10-PCS; 2020-09-11)
DX: A41.9 Sepsis, unspecified organism (principal); J96.21 Acute and chronic respiratory failure with hypoxia; I50.33 Acute on chronic diastolic (congestive) heart failure; N17.0 Acute kidney failure with tubular necrosis; G93.41 Metabolic encephalopathy; J96.22 Acute and chronic respiratory failure with hypercapnia; E87.2 Acidosis; R57.9 Shock, unspecified; G93.1 Anoxic brain damage, not elsewhere classified; Z68.44 Body mass index [BMI] 60.0-69.9, adult; J44.1 Chronic obstructive pulmonary disease with (acute) exacerbation; E87.0 Hyperosmolality and hypernatremia; K92.2 Gastrointestinal hemorrhage, unspecified; D68.9 Coagulation defect, unspecified; I46.9 Cardiac arrest, cause unspecified; Z66 Do not resuscitate; R79.89 Other specified abnormal findings of blood chemistry; E66.01 Morbid (severe) obesity due to excess calories; E11.65 Type 2 diabetes mellitus with hyperglycemia; E03.9 Hypothyroidism, unspecified; E78.5 Hyperlipidemia, unspecified; I71.2 Thoracic aortic aneurysm, without rupture; D72.829 Elevated white blood cell count, unspecified; Z79.84 Long term (current) use of oral hypoglycemic drugs; D64.9 Anemia, unspecified